=== PATIENT | male | born 1945 | race Caucasian/White ===

== ENCOUNTER → 2016-11-20 | Outpatient (REF) | payer MEDICARE, OTHER ==
[~2016-11-20] MED LIST: ALPR0.25 PO; AMLO5TAB2 PO; ATEN50TA2 PO; ATOR1TAB21 PO; BACITAB3 PO; CARV6.25 PO; CENTTAB47 PO; CEPH500C PO; CETI10TA PO; CIPR500T89 PO; DAPT50VL IV; FLOM5CAP PO; HYDR10TAB PO; ISOS10TA PO; LOSA100T36 PO; METF750T PO; MYCO15CR TOP; NYST50SS SS; OXYC1TAB16 PO; PARO20TA2 PO; PERC10TA17 PO; PERC5TAB6 PO; PLAV75TA38 PO; PRED10TA PO; SOMA350T PO; TORS20TA2 PO; VITA200015 PO; VITMTA PO; ZOFR4TAB3 PO
== END ==
LOC: M SMT 12:56
PROVIDERS: ATTEND Urology
DX: C67.9 Malignant neoplasm of bladder, unspecified (principal)

== ENCOUNTER → 2017-01-08 | Outpatient (CLI) | payer MEDICARE, OTHER ==
--- NOTE | 2017-01-10 21:38 | SLEEPCENT ---
DATE OF PROCEDURE: 01/08/2017 ORDERED BY: Addie Hoover Nocturnal polysomnography was performed for re-titration of pressure therapy in this patient with known obstructive sleep apnea syndrome. For testing, the patient was fit with a ResMed P[employer]a nasal mask of large size with a chin strap. Initial bilevel pressure of 8 over 4 was applied to the circuit and the lights were extinguished. 6 hours and 42 minutes of data were reviewed. There were 135 minutes of sleep identified. Sleep latency was prolonged at 74 minutes. Rapid eye movement (REM) latency was prolonged at 170 minutes. Sleep architecture showed very poor progression with very prominent alpha intrusion throughout. Overall sleep efficiency was reduced by periods of wake to 35.2%. The patient's EKG showed sinus rhythm with very frequent PVCs, episodes of trigeminy. EEG showed severe alpha intrusion throughout, as noted above. Respiratory events persisted, prompting an increase in pressure therapy. An optimal bilevel pressure is difficult to identify, but respiratory events appeared reasonably controlled at a bilevel pressure inspiratory 13 over expiratory of 9. The patient had persistence of limb activity as well with limb movement arousal index of 40.4 and persistent trains of events mid test. IMPRESSION: 1. Severe Obstructive sleep apnea syndrome (G47.33). 2. Periodic limb movement disorder (G47.61). Limb movement arousal index 40.4. RECOMMENDATION: Nightly use of pressure therapy at a bilevel setting inspiratory 13 over expiratory of 9 appears sufficient to address the patient's obstructive respiratory events and associated oxygen desaturation. Further interventions to reduce the frequency of arousal from limb activity and address the patient's pain will likely be necessary to establish optimal sleep. The ventricular ectopy demonstrated should also be considered if not already evaluated in the past. Copy To: Dr. Dill
== END ==
LOC: M SLEEP 19:47
PROVIDERS: ATTEND Nurse Practitioner Adult Health
DX: G47.33 Obstructive sleep apnea (adult) (pediatric) (principal)

== ENCOUNTER 2017-02-02 04:57 | Emergency (ER) | payer MEDICARE, OTHER ==
[~2017-02-02 04:57] MED LIST changes: -PARO20TA2 PO; +PARO20TA3 PO
[2017-02-02] MEDS ORDERED: OXYCODONE/APAP 5MG/325MG(BULK FOR ED) 1 TABLET PO ONE (06:30)
[2017-02-02] MEDS ORDERED: MORPHINE 10 MG/ML 1ML VIAL IM ONE (06:30)
[2017-02-02 07:35] VITALS: BP 137/88
[2017-02-10] MEDS ORDERED: ASCO25TA PO (08:49)
[2017-02-10] MEDS ORDERED: LIPI20TA PO (08:49)
[2017-02-10] MEDS ORDERED: COLC1TAB5 PO (08:49)
[2017-02-10] MEDS ORDERED: IRON65TA PO (08:49)
[2017-02-10] MEDS ORDERED: CINA30TA PO (08:49)
[2017-02-10] MEDS ORDERED: K-TA10TA2 PO (08:49)
[2017-02-10] MEDS ORDERED: TORS20TA2 PO (08:49)
[2017-02-10] MEDS ORDERED: ALLO10TA PO (08:49)
== END 2017-02-02 07:37 | disposition home or self-care (01) ==
LOC: M ED 06:17
DX: M54.5 Low back pain (principal); G89.29 Other chronic pain; M10.9 Gout, unspecified; I10 Essential (primary) hypertension; E11.9 Type 2 diabetes mellitus without complications; I50.9 Heart failure, unspecified; I25.2 Old myocardial infarction; E78.00 Pure hypercholesterolemia, unspecified; I95.9 Hypotension, unspecified; G47.30 Sleep apnea, unspecified; D49.519 Neoplasm of unspecified behavior of unspecified kidney; N40.0 Benign prostatic hyperplasia without lower urinary tract symptoms; F32.9 Major depressive disorder, single episode, unspecified; Z79.899 Other long term (current) drug therapy; Z79.02 Long term (current) use of antithrombotics/antiplatelets

== ENCOUNTER 2017-02-03 23:59 | Emergency (ER) | payer MEDICARE, OTHER ==
[~2017-02-03] VITALS: Ht 167.6 cm; Wt 100.7 kg
[2017-02-04] MEDS ORDERED: MORPHINE 10 MG/ML 1ML VIAL IM ONE (02:30)
[2017-02-04] MEDS ORDERED: OXYC1TAB23 PO (02:30)
[2017-02-04] MEDS ORDERED: OXYCODONE/APAP 5MG/325MG(BULK FOR ED) 1 TABLET PO ONE (02:30)
[2017-02-04 03:06] VITALS: BP 137/86
[2017-02-10] MEDS ORDERED: LIPI20TA PO (08:49)
[2017-02-10] MEDS ORDERED: IRON65TA PO (08:49)
[2017-02-10] MEDS ORDERED: ALLO10TA PO (08:49)
[2017-02-10] MEDS ORDERED: TORS20TA2 PO (08:49)
[2017-02-10] MEDS ORDERED: K-TA10TA2 PO (08:49)
[2017-02-10] MEDS ORDERED: CINA30TA PO (08:49)
[2017-02-10] MEDS ORDERED: COLC1TAB5 PO (08:49)
[2017-02-10] MEDS ORDERED: ASCO25TA PO (08:49)
== END 2017-02-04 03:08 | disposition home or self-care (01) ==
LOC: M ED 02-04 00:32
DX: M54.5 Low back pain (principal); G89.29 Other chronic pain; M10.9 Gout, unspecified; Z88.0 Allergy status to penicillin; Z88.8 Allergy status to other drugs, medicaments and biological substances; Z79.899 Other long term (current) drug therapy; Z79.02 Long term (current) use of antithrombotics/antiplatelets; Z79.52 Long term (current) use of systemic steroids

== ENCOUNTER → 2017-02-17 | Outpatient (REF) | payer MEDICARE, OTHER ==
[~2017-02-17] MED LIST changes: +ALLO10TA PO; +ASCO25TA PO; +CINA30TA PO; +COLC1TAB5 PO; +FENT12PA TOP; +IRON65TA PO; +K-TA10TA2 PO; +LIPI20TA PO; +OXYC1TAB23 PO; +VITA-130 PO; +VITA500046 PO
== END ==
LOC: M SMT 17:15
PROVIDERS: ATTEND Urology
DX: C67.9 Malignant neoplasm of bladder, unspecified (principal)

== ENCOUNTER → 2017-02-18 | Outpatient (CLI) | payer MEDICARE, OTHER ==
[~2017-02-18] MED LIST changes: -FENT12PA TOP; -VITA-130 PO; -VITA500046 PO
--- NOTE | 2017-02-18 14:01 | REP ---
CHEST, TWO VIEWS: HISTORY: Bladder neoplasm. COMPARISON: 06/08/2016. Patchy density is present in the right lower lobe consistent with atelectasis or infiltrate. This is superimposed on chronic fibrosis. Increased density is present in the left lower lobe consistent with chronic fibrosis. The heart is upper limits of normal in size. The pulmonary vasculature is normal in appearance. The bony structure is intact. A prosthetic heart valve is present. A dorsal column stimulator is present in the mid thoracic spine. IMPRESSION: 1. Right lower lobe atelectasis or infiltrate. 2. Bibasilar fibrosis. Signed by Nayan Gould MD 02/18/2017 02:06 P
[2017-02-18 14:08] LABS: INR 1.06; MEAN CORPUSCULAR HEMOGLOBIN 31.1 pg (27.0-33.0); MEAN CORPUSCULAR HGB CONC 33.8 g/dl (32.0-36.5); MEAN CORPUSCULAR VOLUME 92.1 fl (80.0-96.0); RED CELL DISTRIBUTION WIDTH 13.7 % (11.5-14.5); WHITE BLOOD COUNT 8.3 K/mm3 (4.0-10.0)
[2017-02-18 14:13] LABS: CALCIUM LEVEL 6.4 MG/DL (8.8-10.2); CREATININE FOR GFR 2.53 MG/DL (0.70-1.30); GLOMERULAR FILTRATION RATE 26.8 (>42); POTASSIUM SERUM 4.4 MEQ/L (3.5-5.1)
--- NOTE | 2017-02-19 07:30 | ECGEPIP ---
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
== END ==
LOC: M LAB 12:42
PROVIDERS: ATTEND Urology
DX: C67.9 Malignant neoplasm of bladder, unspecified (principal)

== ENCOUNTER → 2017-02-19 | Day surgery (SDC) | payer MEDICARE, OTHER ==
[~2017-02-19] VITALS: Ht 167.6 cm; Wt 102.1 kg
[~2017-02-19] MED LIST changes: +ACETAMINOPHEN 325 MG TAB PO PRN; +AcetaZOLAMIDE 500 MG ER CAP PO ONE; +BSS with VANC/TOB/EPI for EYE CASES IR ONE; +CYCLOPENTOLATE 2% OPHTH SOLN OS ONE; +D5W/0.2% SODIUM CHLORIDE 250 ML IV SCH; +HEALON DUET (HEALON 10MG/ML 0.55ML & HEALON ENDOCOAT 30MG/ML 0.85ML) As Ordered ONE; +LIDOCAINE 1% SDV 5 ML VIAL As Ordered ONE; +LIDOCAINE 4% INJ 5 ML AMP OU ONE; +MIDAZOLAM INJ 2 MG/2 ML VIAL (J2250) As Ordered ONE; +MOXIFLOXACIN IN BSS 0.25MG/0.25ML INTRACAMERAL INJ (OR EYE ONLY)(J2280) As Ordered ONE; +OFLOXACIN 0.3 % (OCUFLOX) OPTH SOL 5ML OS ONE; +PHENYLEPHRINE 2.5% OPHTH SOL 2ML OS ONE; +POVIDONE-IODINE 5% OPHTH PREP SOL 30ML As Ordered ONE; +PROPARACAINE 0.5% OPHTH SOL 15ML OS PRN; +TRIAMCINOLONE PRES FR 40 MG/ML 1ML(TRIESENCE)(OR EYE ONLY)(J3300 PER 1MG) As Ordered ONE; +TRIMETHOBENZAMIDE 300 MG CAP PO PRN; +TROPICAMIDE 1% OPHTH SOLN 2 ML OS ONE; +fentaNYL 100 MCG/2 ML INJECTION (J3010) As Ordered ONE
[2017-02-19 13:25] VITALS: BP 135/85
--- NOTE | 2017-02-19 22:29 | RO ---
DATE OF PROCEDURE: 02/19/2017 PREPROCEDURE DIAGNOSIS: Cataract of left eye. POSTPROCEDURE DIAGNOSIS: Cataract of left eye. PROCEDURE: Femtosecond laser and phacoemulsification of the intraocular lens with lens implantation left eye. Intraocular lens power used was PCB00, 20 diopters. SURGEON: Wendy Alvarez MD CLIP ON SUNGLASSES ASSEMBLER: None. ANESTHESIA: Local IV standby. FINDINGS: Cataract of left eye. COMPLICATIONS: None. DESCRIPTION OF PROCEDURE: The patient was brought to the operating room and laid in supine position. A lid speculum was placed, and patient was brought under the femtosecond laser. After the satisfactory placement of the patient interface, primary incision, secondary incision, and arcuate incisions with lens fragmentation was done without any complication per plan. The patients interface was then removed and lid speculum removed. Patient was placed under the microscope. The eye was prepped and draped in a sterile fashion for ophthalmic surgery. Lid speculum was placed. The secondary incision was opened, and EndoCoat was injected into the anterior chamber. The temporal clear corneal incision was then opened and capsulorrhexis removed, followed by hydrodissection. This was followed by phacoemulsification of the lens within the capsular bag. Cortical material was then aspirated, and Healon was injected into the capsular bag. Intraocular lens was then placed. Excess Healon was aspirated. Wound was hydrated. The lid speculum was removed, and patient was returned to the recovery room in stable condition.
== END | disposition home or self-care (01) ==
LOC: M SDC 10:21
PROVIDERS: ATTEND Ophthalmology
DX: H26.9 Unspecified cataract (principal); I13.0 Hypertensive heart and chronic kidney disease with heart failure and stage 1 through stage 4 chronic kidney disease, or unspecified chronic kidney disease; I25.2 Old myocardial infarction; I50.32 Chronic diastolic (congestive) heart failure; I08.0 Rheumatic disorders of both mitral and aortic valves; J44.9 Chronic obstructive pulmonary disease, unspecified; E78.00 Pure hypercholesterolemia, unspecified; Z95.3 Presence of xenogenic heart valve; E11.22 Type 2 diabetes mellitus with diabetic chronic kidney disease; M19.90 Unspecified osteoarthritis, unspecified site; M54.9 Dorsalgia, unspecified; G47.33 Obstructive sleep apnea (adult) (pediatric); N18.9 Chronic kidney disease, unspecified; M25.522 Pain in left elbow; Z85.51 Personal history of malignant neoplasm of bladder; Z88.8 Allergy status to other drugs, medicaments and biological substances; Z88.1 Allergy status to other antibiotic agents; Z79.899 Other long term (current) drug therapy; Z79.02 Long term (current) use of antithrombotics/antiplatelets; Z87.891 Personal history of nicotine dependence; Z95.1 Presence of aortocoronary bypass graft
CPT/HCPCS: 66984; J2250; J2280; J3010; J3300; V2632

== ENCOUNTER → 2017-02-26 | Day surgery (SDC) | payer MEDICARE, OTHER ==
[~2017-02-26] VITALS: Ht 167.6 cm; Wt 102.0 kg
[~2017-02-26] MED LIST changes: +CYCLOPENTOLATE 2% OPHTH SOLN As Ordered ONE; -CYCLOPENTOLATE 2% OPHTH SOLN OS ONE; +CYCLOPENTOLATE 2% OPHTH SOLN XX ONE; +D5W/0.2% SODIUM CHLORIDE 250 ML IV ONE; -D5W/0.2% SODIUM CHLORIDE 250 ML IV SCH; +OFLOXACIN 0.3 % (OCUFLOX) OPTH SOL 5ML As Ordered ONE; -OFLOXACIN 0.3 % (OCUFLOX) OPTH SOL 5ML OS ONE; +OFLOXACIN 0.3 % (OCUFLOX) OPTH SOL 5ML XX ONE; +PHENYLEPHRINE 2.5% OPHTH SOL 2ML As Ordered ONE; -PHENYLEPHRINE 2.5% OPHTH SOL 2ML OS ONE; +PHENYLEPHRINE 2.5% OPHTH SOL 2ML XX ONE; +PROPARACAINE 0.5% OPHTH SOL 15ML OD PRN; -PROPARACAINE 0.5% OPHTH SOL 15ML OS PRN; +TROPICAMIDE 1% OPHTH SOLN 2 ML As Ordered ONE; -TROPICAMIDE 1% OPHTH SOLN 2 ML OS ONE; +TROPICAMIDE 1% OPHTH SOLN 2 ML XX ONE
[2017-02-26 13:40] VITALS: BP 157/80
--- NOTE | 2017-02-27 07:27 | RO ---
DATE OF PROCEDURE: 02/26/2017 PREPROCEDURE DIAGNOSIS: Cataract of left eye. POSTPROCEDURE DIAGNOSIS: Cataract of left eye. PROCEDURE: Femtosecond laser and phacoemulsification of the intraocular lens with lens implantation left eye. Intraocular lens power used was PCB00, 20.5 diopter. SURGEON: Wendy Alvarez MD DIGITAL LIBRARIAN: None. ANESTHESIA: Local IV standby. FINDINGS: Cataract of left eye. COMPLICATIONS: None. DESCRIPTION OF PROCEDURE: The patient was brought to the operating room and laid in supine position. A lid speculum was placed, and patient was brought under the femtosecond laser. After the satisfactory placement of the patient interface, primary incision, secondary incision, and arcuate incisions with lens fragmentation was done without any complication per plan. The patients interface was then removed and lid speculum removed. Patient was placed under the microscope. The eye was prepped and draped in a sterile fashion for ophthalmic surgery. Lid speculum was placed. The secondary incision was opened, and EndoCoat was injected into the anterior chamber. The temporal clear corneal incision was then opened and capsulorrhexis removed, followed by hydrodissection. This was followed by phacoemulsification of the lens within the capsular bag. Cortical material was then aspirated, and Healon was injected into the capsular bag. Intraocular lens was then placed. Excess Healon was aspirated. Wound was hydrated. The lid speculum was removed, and patient was returned to the recovery room in stable condition.
== END | disposition home or self-care (01) ==
LOC: M SDC 11:39
PROVIDERS: ATTEND Ophthalmology
DX: H26.9 Unspecified cataract (principal); I13.0 Hypertensive heart and chronic kidney disease with heart failure and stage 1 through stage 4 chronic kidney disease, or unspecified chronic kidney disease; I25.2 Old myocardial infarction; I50.32 Chronic diastolic (congestive) heart failure; I08.0 Rheumatic disorders of both mitral and aortic valves; E78.00 Pure hypercholesterolemia, unspecified; E11.22 Type 2 diabetes mellitus with diabetic chronic kidney disease; E11.65 Type 2 diabetes mellitus with hyperglycemia; M19.90 Unspecified osteoarthritis, unspecified site; M54.9 Dorsalgia, unspecified; G47.33 Obstructive sleep apnea (adult) (pediatric); N18.4 Chronic kidney disease, stage 4 (severe); Z88.8 Allergy status to other drugs, medicaments and biological substances; Z88.1 Allergy status to other antibiotic agents; Z85.51 Personal history of malignant neoplasm of bladder; Z79.899 Other long term (current) drug therapy; Z87.891 Personal history of nicotine dependence; Z95.1 Presence of aortocoronary bypass graft; Z95.3 Presence of xenogenic heart valve
CPT/HCPCS: 66984; J2250; J2280; J3010; J3300; V2632

== ENCOUNTER → 2017-03-18 | Outpatient (CLI) | payer MEDICARE, OTHER ==
[~2017-03-18] MED LIST changes: -ACETAMINOPHEN 325 MG TAB PO PRN; -AcetaZOLAMIDE 500 MG ER CAP PO ONE; -BSS with VANC/TOB/EPI for EYE CASES IR ONE; -CYCLOPENTOLATE 2% OPHTH SOLN As Ordered ONE; -CYCLOPENTOLATE 2% OPHTH SOLN XX ONE; -D5W/0.2% SODIUM CHLORIDE 250 ML IV ONE; +FENT12PA TOP; -HEALON DUET (HEALON 10MG/ML 0.55ML & HEALON ENDOCOAT 30MG/ML 0.85ML) As Ordered ONE; -LIDOCAINE 1% SDV 5 ML VIAL As Ordered ONE; -LIDOCAINE 4% INJ 5 ML AMP OU ONE; -MIDAZOLAM INJ 2 MG/2 ML VIAL (J2250) As Ordered ONE; -MOXIFLOXACIN IN BSS 0.25MG/0.25ML INTRACAMERAL INJ (OR EYE ONLY)(J2280) As Ordered ONE; -OFLOXACIN 0.3 % (OCUFLOX) OPTH SOL 5ML As Ordered ONE; -OFLOXACIN 0.3 % (OCUFLOX) OPTH SOL 5ML XX ONE; -PHENYLEPHRINE 2.5% OPHTH SOL 2ML As Ordered ONE; -PHENYLEPHRINE 2.5% OPHTH SOL 2ML XX ONE; -POVIDONE-IODINE 5% OPHTH PREP SOL 30ML As Ordered ONE; -PROPARACAINE 0.5% OPHTH SOL 15ML OD PRN; -TRIAMCINOLONE PRES FR 40 MG/ML 1ML(TRIESENCE)(OR EYE ONLY)(J3300 PER 1MG) As Ordered ONE; -TRIMETHOBENZAMIDE 300 MG CAP PO PRN; -TROPICAMIDE 1% OPHTH SOLN 2 ML As Ordered ONE; -TROPICAMIDE 1% OPHTH SOLN 2 ML XX ONE; +VITA-130 PO; +VITA500046 PO; -fentaNYL 100 MCG/2 ML INJECTION (J3010) As Ordered ONE
[2017-03-18 18:55] LABS: MAGNESIUM LEVEL 1.8 MG/DL (1.8-2.4)
== END ==
LOC: M SMT 13:27
PROVIDERS: ATTEND Physician Assistant
DX: Z01.818 Encounter for other preprocedural examination (principal); C67.9 Malignant neoplasm of bladder, unspecified; I49.3 Ventricular premature depolarization; I11.9 Hypertensive heart disease without heart failure; E78.5 Hyperlipidemia, unspecified

== ENCOUNTER 2017-03-25 21:17 | Emergency (ER) | payer MEDICARE, OTHER ==
[~2017-03-25] VITALS: Ht 167.6 cm; Wt 106.6 kg
[2017-03-25 21:17] VITALS: BP 151/79
[2017-03-25] MEDS ORDERED: COQ-100C2 PO (21:29)
[2017-03-25] MEDS ORDERED: CLAR10CA3 PO (21:29)
[2017-03-25] MEDS ORDERED: HYDR25T PO (21:29)
[2017-03-25] MEDS ORDERED: SENN8.6C PO (21:29)
[2017-03-25] MEDS ORDERED: COLC1TAB13 (21:30)
[2017-03-26] MEDS ORDERED: OXYC1TAB23 PO (01:35)
[2017-03-26] MEDS ORDERED: PRED20TA PO (01:35)
[2017-03-26] MEDS ORDERED: CIPR500T3 PO (19:01)
[2017-03-26] MEDS ORDERED: PERCOCET PO (19:01)
== END 2017-03-25 23:11 | disposition left against medical advice (07) ==
LOC: M ED 23:09
DX: R68.89 Other general symptoms and signs (principal); Z53.21 Procedure and treatment not carried out due to patient leaving prior to being seen by health care provider

== ENCOUNTER 2017-03-26 00:36 | Emergency (ER) | payer MEDICARE, OTHER ==
[~2017-03-26] VITALS: Ht 167.6 cm; Wt 106.6 kg
[~2017-03-26 00:36] MED LIST changes: +CLAR10CA3 PO; +COLC1TAB13; +COQ-100C2 PO; +HYDR25T PO; +SENN8.6C PO
[2017-03-26 00:44] VITALS: BP 120/86
[2017-03-26] MEDS ORDERED: OXYC1TAB23 PO (01:35)
[2017-03-26] MEDS ORDERED: PRED20TA PO (01:35)
[2017-03-26] MEDS ORDERED: MORPHINE 10 MG/ML 1ML VIAL IM ONE (01:45)
[2017-03-26] MEDS ORDERED: CIPR500T3 PO (19:01)
[2017-03-26] MEDS ORDERED: PERCOCET PO (19:01)
== END 2017-03-26 02:15 | disposition home or self-care (01) ==
LOC: M ED 01:44
DX: M10.9 Gout, unspecified (principal); Z79.891 Long term (current) use of opiate analgesic; N18.9 Chronic kidney disease, unspecified; M54.9 Dorsalgia, unspecified; G89.29 Other chronic pain; Z79.899 Other long term (current) drug therapy; Z79.02 Long term (current) use of antithrombotics/antiplatelets; Z88.0 Allergy status to penicillin

== ENCOUNTER 2017-03-26 11:22 | Day surgery (SDC) | payer MEDICARE, OTHER ==
[~2017-03-26] VITALS: Ht 167.6 cm; Wt 106.6 kg
[~2017-03-26 11:22] MED LIST changes: +PRED20TA PO
[2017-03-26] MEDS ORDERED: LIDOCAINE 1% SDV 5 ML VIAL SQ PRN (11:45)
[2017-03-26] MEDS ORDERED: VANCOMYCIN HCL 1,000 MG, VIAL MATE ADAPTER 1 EACH in D5W 250 ML IV ONE (11:45)
[2017-03-26] MEDS ORDERED: GENTAMICIN 100 MG in APPROPRIATE DILUENT 1 EA IV ONE ×2 (11:45→19:45)
[2017-03-26] MEDS ORDERED: LR 1,000 ML IV ONE (11:45)
[2017-03-26] MEDS ORDERED: mitoMYcin 40 MG VIAL (J9280) INTRAVESIC ONE (12:00)
[2017-03-26] MEDS ORDERED: fentaNYL 100 MCG/2 ML INJECTION (J3010) As Ordered ONE ×2 (14:18→18:14)
[2017-03-26] MEDS ORDERED: MIDAZOLAM INJ 2 MG/2 ML VIAL (J2250) As Ordered ONE ×2 (14:18→18:14)
[2017-03-26] MEDS ORDERED: LIDOCAINE 2% INJ 100 MG/5 ML SDV (FOR ANES.) As Ordered ONE (18:14)
[2017-03-26] MEDS ORDERED: ONDANSETRON 4MG/2ML VIAL (J2405) As Ordered ONE (18:14)
[2017-03-26] MEDS ORDERED: PROPOFOL 200 MG/20 ML VIAL As Ordered ONE (18:14)
[2017-03-26] MEDS ORDERED: ROCURONIUM BROMIDE 50 MG/5 ML VIAL As Ordered ONE (18:14)
[2017-03-26] MEDS ORDERED: ALBUTEROL SULFATE 2.5 MG/0.5 ML INH NEB SOLN INH SCH (18:45)
[2017-03-26] MEDS ORDERED: CIPR500T3 PO (19:01)
[2017-03-26] MEDS ORDERED: PERCOCET PO (19:01)
[2017-03-26] MEDS: MORPHINE 4 MG/ML 1ML SYRINGE IV PRN ×2 (19:30→19:40)
[2017-03-26] MEDS ORDERED: MORPHINE 10 MG/ML 1ML VIAL As Ordered ONE (19:31)
[2017-03-26] MEDS ORDERED: GENTAMICIN SULF INJ 80MG/2ML VIAL (J1580) As Ordered ONE (19:34)
[2017-03-26] MEDS ORDERED: SUGAMMADEX SODIUM 500 MG/5 ML VIAL (BRIDION) As Ordered ONE (20:40)
[2017-03-26] MEDS ORDERED: IPRATROPIUM 0.5MG/ALBUTEROL 2.5MG INH SOL UD 3ML (DUONEB)(J7620) As Ordered ONE (20:57)
[2017-03-26] MEDS ORDERED: fentaNYL 100 MCG/2 ML INJECTION (J3010) IV PRN (21:30)
[2017-03-26] MEDS ORDERED: IPRATROPIUM 0.5MG/ALBUTEROL 2.5MG INH SOL UD 3ML (DUONEB)(J7620) NEB SCH (21:30)
[2017-03-26] MEDS ORDERED: LR 1,000 ML IV SCH (21:30)
[2017-03-26] MEDS ORDERED: ONDANSETRON 4MG/2ML VIAL (J2405) IV PRN (21:30)
[2017-03-26] MEDS ORDERED: PERCOCET 5MG/325MG TAB PO PRN (21:30)
[2017-03-26] MEDS ORDERED: hydrALAZINE INJ 20 MG/ML VIAL As Ordered ONE (22:39)
[2017-03-26] MEDS ORDERED: hydrALAZINE INJ 20 MG/ML VIAL IV SCH (22:45)
[2017-03-26 22:54] VITALS: BP 177/86
[2017-03-26 23:15] VITALS: BP 148/74
[2017-03-26 23:45] VITALS: BP 165/87
[2017-03-27 00:45] VITALS: BP 166/85
[2017-03-27 01:45] VITALS: BP 160/83
[2017-03-27] MEDS: PERCOCET 5MG/325MG TAB PO PRN ×2 (02:15→06:17)
[2017-03-27 02:45] VITALS: BP 173/82
[2017-03-27 03:45] VITALS: BP 167/85
[2017-03-27] MEDS ORDERED: CIPROFLOXACIN 500 MG TAB PO SCH (06:00)
--- NOTE | 2017-03-27 08:36 | RO ---
DATE OF PROCEDURE: 03/26/2017 PREOPERATIVE DIAGNOSIS: Bladder tumor. POSTOPERATIVE DIAGNOSIS: Bladder tumor. SURGERY PERFORMED: Cystoscopy, plus exam under anesthesia, plus transurethral resection of bladder tumor, plus mitomycin C instillation. SURGEON: Dr. Masoud Urrutia COIN ROLLING MACHINE OPERATOR: None. ANESTHESIA: General. COMPLICATIONS: None. ESTIMATED BLOOD LOSS: N/A. FINDINGS: 2 cm bladder tumor on the posterior bladder wall. HISTORY OF PRESENT ILLNESS: 71-year-old male patient with history of carcinoma of the bladder. The patient has had a recurrence about 2 cm in diameter on the posterior bladder wall. For this reason, he has consented for a cystoscopy, TURBT, plus mitomycin C instillation. PROCEDURE DESCRIPTION: In a patient under general anesthesia in supine modified low lithotomy position after prepping and draping the area of concern, which included the entire genitalia and abdomen, we introduced a cystoscope, #21 Indian in diameter with a 30 degrees lens under video endoscopic guidance. The fossa navicularis, penile urethra, bulbar urethra and membranous urethra were totally normal. The prostate had lateral lobes touching, no middle lobe. Both the ureteral orifices were seen excreting clear urine. There was a 2 cm papillary tumor on the posterior bladder wall and a 5 mm papillary tumor near to this one. We then changed the cystoscope for a resectoscope and under normal saline bipolar resection we did a transurethral resection of bladder tumor. We then collected the specimen with travelmob evacuator and sent it for permanent pathology analysis. We then fulgurated the base and controlled hemostasis. We then proceeded to actively take out the resectoscope and place a #20 Indian Herman catheter 3-way and inflated the balloon to 20 mL. We then placed mitomycin C 40 mg in 50 mL into the bladder and plugged the Herman. PLAN: The patient will pass to recovery. He will turn around 15 minutes to each side, 15 minutes left contralateral, 15 minutes right contralateral, prone and supine. He will have the mitomycin C instillation inside the bladder for at least one hour to two hours. Then, the Herman catheter will be placed to gravity and the patient will be going home if the Herman catheter drains clear urine. He will go home with ciprofloxacin 500 mg one tablet by mouth twice a day and Percocet 5/325 mg one tablet by mouth every 6 hours. The patient will go home. He cannot start any anticoagulation medication for at least 7 days. He will followup on 03/31/2017, for a voiding trial. There were no complications of surgery.
== END 2017-03-27 10:10 | disposition home or self-care (01) ==
LOC: M SDC 11:22 → M MS5PR 23:20 → M SDC 03-27 10:10
PROVIDERS: ATTEND Urology
DX: C67.4 Malignant neoplasm of posterior wall of bladder (principal); I13.0 Hypertensive heart and chronic kidney disease with heart failure and stage 1 through stage 4 chronic kidney disease, or unspecified chronic kidney disease; N18.3 Chronic kidney disease, stage 3 (moderate); M10.371 Gout due to renal impairment, right ankle and foot; N25.81 Secondary hyperparathyroidism of renal origin; I50.32 Chronic diastolic (congestive) heart failure; I25.10 Atherosclerotic heart disease of native coronary artery without angina pectoris; Z95.1 Presence of aortocoronary bypass graft; E11.9 Type 2 diabetes mellitus without complications; G47.33 Obstructive sleep apnea (adult) (pediatric); M54.5 Low back pain; Z79.899 Other long term (current) drug therapy; Z79.02 Long term (current) use of antithrombotics/antiplatelets; Z79.891 Long term (current) use of opiate analgesic; Z87.891 Personal history of nicotine dependence; Z88.1 Allergy status to other antibiotic agents; Z88.8 Allergy status to other drugs, medicaments and biological substances; Z88.0 Allergy status to penicillin
CPT/HCPCS: 36415; 52235; 86850; 86900; 86901; 88305; J1580; J2250; J2405; J3010; J3370; J9280

== ENCOUNTER 2017-03-26 15:13 | Emergency (ER) | payer MEDICARE, OTHER ==
[~2017-03-26] VITALS: Ht 167.6 cm; Wt 106.6 kg
[~2017-03-26 15:13] MED LIST changes: -COLC1TAB13; +COLC1TAB13 PO
[2017-03-26 17:35] VITALS: BP 157/70
[2017-03-26] MEDS ORDERED: CIPR500T3 PO (19:01)
[2017-03-26] MEDS ORDERED: PERCOCET PO (19:01)
== END 2017-03-26 17:38 | disposition home or self-care (01) ==
LOC: M ED 15:55 → M SDC 17:38
DX: S52.125A Nondisplaced fracture of head of left radius, initial encounter for closed fracture (principal); W19.XXXA Unspecified fall, initial encounter; Y92.89 Other specified places as the place of occurrence of the external cause; Y93.89 Activity, other specified; Y99.8 Other external cause status; I10 Essential (primary) hypertension; E11.9 Type 2 diabetes mellitus without complications; I25.10 Atherosclerotic heart disease of native coronary artery without angina pectoris; E78.5 Hyperlipidemia, unspecified; Z85.51 Personal history of malignant neoplasm of bladder; Z79.899 Other long term (current) drug therapy; Z79.02 Long term (current) use of antithrombotics/antiplatelets

== ENCOUNTER → 2017-04-08 | Outpatient (REF) | payer MEDICARE, OTHER ==
[~2017-04-08] MED LIST changes: +ASCO500T PO; +CIPR500T3 PO; +CLOP75TA2 PO; +D200CAP3 PO; +NITR0.4S14 SL; +PERCOCET PO; +POTA1TAB14 PO
== END ==
LOC: M SMT 16:52
PROVIDERS: ATTEND Nurse Practitioner Women's Health
DX: C67.9 Malignant neoplasm of bladder, unspecified (principal); R31.9 Hematuria, unspecified

== ENCOUNTER → 2017-04-10 | Outpatient (REF) | payer MEDICARE, OTHER ==
[2017-04-10 20:05] LABS: PHOSPHORUS LEVEL 4.9 MG/DL (2.5-4.9)
== END ==
LOC: M LAB REF 16:57
PROVIDERS: ATTEND Internal Medicine
DX: E21.1 Secondary hyperparathyroidism, not elsewhere classified (principal); N18.3 Chronic kidney disease, stage 3 (moderate)

== ENCOUNTER 2017-04-13 19:49 | Inpatient (IN) | payer MEDICARE, OTHER ==
[~2017-04-13] VITALS: Ht 165.1 cm; Wt 106.7 kg
[~2017-04-13 19:49] MED LIST changes: -ASCO500T PO; -CLOP75TA2 PO; -D200CAP3 PO; -NITR0.4S14 SL; -POTA1TAB14 PO
[2017-04-13 21:15] LABS: BASO % 0.2 % (0.0-1.0); EOS # 0.4 K/mm3 (0.0-0.50); EOS % 4.8 % (0.0-3.0); LARGE UNSTAINED CELL # 0.2 K/mm3 (0.0-0.4); LARGE UNSTAINED CELL % 2.6 % (0.0-4.0); LYMPH # 1.1 K/mm3 (1.5-4.5); MEAN CORPUSCULAR HEMOGLOBIN 31.8 pg (27.0-33.0); MEAN CORPUSCULAR HGB CONC 33.6 g/dl (32.0-36.5); MEAN CORPUSCULAR VOLUME 94.7 fl (80.0-96.0); MONO # 0.6 K/mm3 (0.0-0.8); MONO % 6.9 % (0.0-5.0); NEUTROPHILS # 6.2 K/mm3 (1.8-7.7); NEUTROPHILS % 74.5 % (36.0-66.0); PLATELET COUNT, AUTOMATED 134 k/mm3 (150-450); WHITE BLOOD COUNT 8.3 K/mm3 (4.0-10.0)
[2017-04-13 21:26] LABS: INR 1.02
[2017-04-13 21:31] LABS: ALBUMIN 3.2 GM/DL (3.2-5.2); ALBUMIN/GLOBULIN RATIO 0.78 (1.00-1.93); ALKALINE PHOSPHATASE 144 U/L (45-117); ALT/SGPT 72 U/L (12-78); ANION GAP 8 MEQ/L (8-16); AST/SGOT 41 U/L (15-37); BILIRUBIN,DIRECT 0.1 MG/DL (0.0-0.2); BILIRUBIN,TOTAL 0.5 MG/DL (0.2-1.0); BLOOD UREA NITROGEN 58 MG/DL (7-18); CALCIUM LEVEL 7.5 MG/DL (8.8-10.2); CARBON DIOXIDE LEVEL 28 MEQ/L (21-32); CHLORIDE LEVEL 99 MEQ/L (98-107); CREATININE FOR GFR 2.02 MG/DL (0.70-1.30); GLOMERULAR FILTRATION RATE 34.7 (>42); GLUCOSE, FASTING 131 MG/DL (83-110); POTASSIUM SERUM 4.2 MEQ/L (3.5-5.1); SODIUM LEVEL 135 MEQ/L (136-145); TOTAL PROTEIN 7.3 GM/DL (6.4-8.2)
[2017-04-13] MEDS ORDERED: PERCOCET 5MG/325MG TAB PO ONE ×2 (22:15)
[2017-04-13] MEDS ORDERED: VANCOMYCIN HCL 1,000 MG, VIAL MATE ADAPTER 1 EACH in D5W 250 ML IV ONE (22:30)
[2017-04-13] MEDS ORDERED: MEROPENEM INJ 1 GM in D5W MINI-BAG PLUS 100 ML IV ONE (23:00)
[2017-04-13] MEDS ORDERED: CLOP75TA2 PO (23:21)
[2017-04-13] MEDS ORDERED: ASCO500T PO (23:21)
[2017-04-13] MEDS ORDERED: POTA1TAB14 PO (23:21)
[2017-04-13] MEDS ORDERED: D200CAP3 PO (23:21)
[2017-04-13] MEDS ORDERED: NITR0.4S14 SL (23:21)
[2017-04-14] MEDS ORDERED: FUROSEMIDE 100 MG/10 ML VIAL (J1940) IV ONE
[2017-04-14 01:55] VITALS: BP 137/81
[2017-04-14] MEDS ORDERED: PERCOCET 5MG/325MG TAB PO PRN (04:30)
[2017-04-14 04:36] VITALS: BP 144/59
[2017-04-14] MEDS ORDERED: NITROGLYCERIN 0.4 MG SUBL TABLET SL PRN (04:45)
[2017-04-14 05:44] LABS: BASO % 0.3 % (0.0-1.0); EOS # 0.4 K/mm3 (0.0-0.50); EOS % 5.2 % (0.0-3.0); LARGE UNSTAINED CELL # 0.3 K/mm3 (0.0-0.4); LARGE UNSTAINED CELL % 3.5 % (0.0-4.0); LYMPH # 1.1 K/mm3 (1.5-4.5); MEAN CORPUSCULAR VOLUME 93.9 fl (80.0-96.0); MONO # 0.5 K/mm3 (0.0-0.8); MONO % 6.6 % (0.0-5.0); NEUTROPHILS # 5.8 K/mm3 (1.8-7.7); NEUTROPHILS % 71.4 % (36.0-66.0); PLATELET COUNT, AUTOMATED 139 k/mm3 (150-450); RED CELL DISTRIBUTION WIDTH 13.7 % (11.5-14.5); WHITE BLOOD COUNT 8.2 K/mm3 (4.0-10.0)
[2017-04-14 06:00] LABS: ALBUMIN 3.4 GM/DL (3.2-5.2); ALBUMIN/GLOBULIN RATIO 1.03 (1.00-1.93); BILIRUBIN,TOTAL 0.6 MG/DL (0.2-1.0); GLOMERULAR FILTRATION RATE 35.1 (>42); MAGNESIUM LEVEL 1.8 MG/DL (1.8-2.4); POTASSIUM SERUM 3.9 MEQ/L (3.5-5.1); TOTAL PROTEIN 6.7 GM/DL (6.4-8.2)
--- NOTE | 2017-04-14 06:44 | PHACANCOPD ---
PHARMACY VANCOMYCIN DOSING Pt Demographics Demographics Patient Age:71 , Weight:109.100 , Gender: male Adjusted Body Weight Date: 04/14/17, Adjusted Body Weight: [80.5] Kg Events Past 24 Hours Events Past 24 Hours: NO: Dialysis, Diuretic Therapy, Change in CrCl, Fever, Elevation in WBC, Pending Diagnostics, Pending Procedures, Other Vancomycin Vancomycin indication: Severe sepsis, pneumonia Vancomycin Target Ranges: 15-20 mcg/ml Vancomycin Load Y/N: No Load Dose Date Time Vancomycin Load Dose: Date: Time: Vancomycin Dose Date: 04/14/17. Current Vancomycin Dose: [1g iv Q24h] Intermittent Dosing?: No Labs Labs Item Value Date Time White Blood Count 8.2 K/mm3 04/14/17 0446 Creatinine 2.00 MG/DL H 04/14/17 0446 Micro Microbiology 04/13/17 Blood Culture, Received Pending 04/13/17 Blood Culture, Received Pending 04/13/17 Respiratory Virus Panel (PCR) ([facility]) - Final, Complete Creatinine Clearance Date:04/14/17. Creatinine Clearance: [28.8ml/min]. Assessment and Plan Maintaining Current Dose?: Yes Reason for dose change: No Dose Change Pharmacist Note Pharmacist Note Date: 04/14/17. Pharmacist note: Pt is a 71 year old male being treated for severe sepsis and pneumonia goal trough 15-20mcg/ml. The pt does not have a history of vancomycin therapy here at [facility]. A 1g dose was gave in the ER 04/13/17 @ 23:45. This is followed by maintenance therapy of 1g q24h iv starting 04/14/17 @9. We will continue to monitor and adjust dose as needed. EULALIA CARMEN PHARMACY Apr 14, 2017 06:44
[2017-04-14 08:00] VITALS: BP 151/69
[2017-04-14] MEDS: MEROPENEM INJ 1 GM in D5W MINI-BAG PLUS 100 ML IV SCH ×2 (08:08→19:46)
[2017-04-14] MEDS: LACTOBACILLUS ACIDOPHILUS CAP (BACID) PO SCH ×2 (08:09→20:31)
[2017-04-14] MEDS: POTASSIUM CHLORIDE 10 MEQ SR TABLET PO SCH (08:09)
[2017-04-14] MEDS: ASCORBIC ACID 500 MG TAB PO SCH (08:09)
[2017-04-14] MEDS: CARVedilol 6.25 MG TAB PO SCH ×2 (08:09→20:32)
[2017-04-14] MEDS: VITAMIN D 1,000 INTERNATIONAL UNITS TABLET PO SCH (08:09)
[2017-04-14] MEDS: FERROUS SULFATE 325MG TAB PO SCH (08:09)
[2017-04-14] MEDS ORDERED: CLOPIDOGREL 75 MG TAB PO SCH (09:00)
--- NOTE | 2017-04-14 09:32 | REP ---
CHEST, TWO VIEWS: Two views of the chest are performed and compared to a prior study of 02/18/2017. There is mild cardiomegaly. Chronic interstitial opacities are stable. Multiple sternal wires and mediastinal clips are present. There are degenerative changes of the spine. There is a prosthetic heart valve. IMPRESSION: Cardiomegaly with stable chronic interstitial densities. No acute pulmonary disease. Signed by Toni Puckett MD 04/14/2017 08:16 P
[2017-04-14] MEDS: VANCOMYCIN HCL 1,000 MG, VIAL MATE ADAPTER 1 EACH in D5W 250 ML IV SCH (10:01)
--- NOTE | 2017-04-14 10:58 | HPE ---
DATE OF ADMISSION: 04/14/2017 CHIEF COMPLAINT: Shortness of breath. PRIMARY CARE PROVIDER: Vahid Dill Jr., MD GAS MAIN AND LINE FITTER: Naeem Diaz MD This is a 71-year-old male with a history of congestive heart failure (CHF), endocarditis, with resultant valve replacement done last year. He has a bladder tumor removal, which was done 3 weeks ago. He has had his first dose of chemotherapy. He states that for the last week, he has been feeling shorter and shorter of breath with a slight cough. He feels like he is not getting enough air. He denies any wheezing. No mucus production. No fever or chills. No chest pain or palpitations. On arrival, electrocardiogram (EKG) was done, which shows sinus rhythm. No acute ischemia. Blood pressure was 142/67, pulse was 70, respirations were 22, oxygen (O2) saturation was 90% on room air, temperature was 99.7. LABORATORY STUDIES: WBC was 8.3, hemoglobin 10.7, hematocrit 31.7, platelets were 134, sedimentation rate was greater than 140. Sodium was 135, potassium 4.2, chloride 99, CO2 28, anion gap was 8, BUN was 58, creatinine was 2.02, troponin was less than 0.01, C-reactive protein was 4.16, BNP was 249, prostate-specific antigen (PSA) was therapeutic at 0.851. INR was 1.02. Urine had 1+ blood, nitrites were negative. Blood cultures were drawn. Chest x-ray was done, which showed cardiomegaly with stable chronic interstitial densities. No acute pulmonary disease. In the emergency room, the patient received 60 of Lasix intravenous (IV). He was started on meropenem gram 1 and vancomycin gram 1. He was given oxycodone for chronic back pain with some relief. Assessment was done. With the elevated sedimentation rate so high and the shortness of breath, concern is for recurrent of endocarditis, which he did have a year ago. The organism at that time was Enterococcus faecalis. The plan is to admit the patient to the medical floor for congestive heart failure and rule out endocarditis. He will be admitted to the service of Dr. Garner. ALLERGIES: AMPICILLIN causes hives. ASPIRIN causes lip swelling. PENICILLIN and CEFTRIAXONE cause rash. SOCIAL HISTORY: The patient is . He does not drink alcohol. He does not smoke cigarettes. He does not use recreational drugs. PAST MEDICAL HISTORY: 1. Anxiety. 2. Congestive heart failure. 3. Chronic back pain with degenerative disc disease. 4. He has had interstitial nephritis. 5. He has chronic kidney disease. 6. Coronary artery disease. The patient is on Plavix, but it is to be held on 04/15/2017. He is to have a procedure for his bladder. 7. Elevated sedimentation rate. 8. Low-grade temperature. 9. Shortness of breath. Will rule out endocarditis. Will continue vancomycin and meropenem. Will monitor for results of blood cultures. 10. History of endocarditis. Treated with antibiotics 03/26/2016 to 05/12/2016. 11. Bladder cancer. He has had a transurethral resection of prostate (TURP) and; most recently, he has had another bladder mass, for which he has had one dose of chemotherapy insertion into the bladder. 12. History of aortic valve disease. 13. History of coronary artery disease, and he has had a coronary artery bypass graft (CABG). 14. History of insulin-dependent diabetes type 2. 15. Hypertension. 16. Hyperlipidemia. 17. Obesity. 18. Chronic pain with a spinal stimulator in place. 19. Incidental lung nodule. 20. Adrenal adenoma. 21. Chronic anemia. 22. Diastolic congestive heart failure. PAST SURGICAL HISTORY: 1. CABG 13 years ago. 2. Cystoscopy times two with transurethral resection of bladder tumor in October of 2015 and in January of 2016. Most recently, had cystoscopy for a bladder mass, and he had one chemotherapy treatment. 3. Kidney tumor removal. 4. Spinal stimulator placement. 5. Laminectomy. FAMILY HISTORY: Noncontributory. HOME MEDICATIONS: - allopurinol 100 mg by mouth daily - ascorbic acid 500 mg by mouth daily - atorvastatin 20 mg by mouth daily - vitamin D 4000 units daily - Plavix 75 mg by mouth daily - colchicine 0.6 mg by mouth each evening - nitroglycerin 0.4 mg sublingual every 5 minutes times three as needed for chest pain - potassium 20 mEq by mouth daily - torsemide 20 mg by mouth daily - CoQ10 100 mg by mouth twice a day - oxycodone/acetaminophen 10/325 one by mouth every 6 hours as needed for pain, maximum daily dose four - Coreg 6.25 mg by mouth twice a day - lactobacillus one by mouth twice a day - multivitamin one daily - paroxetine 20 mg by mouth each evening REVIEW OF SYSTEMS: No complaint of headache. No blurred or double vision. Low-grade fever. No chills. No hoarseness. No difficulty swallowing. No lightheadedness. No vertigo. Cardiovascular: No complaints of chest pain. Has had increased shortness of breath. No lower extremity edema. Respiratory: He has had a cough. No mucus production. No hemoptysis. No orthopnea. No wheeze. GI: No nausea, vomiting, or diarrhea. No hematochezia. No melena. No complaints of abdominal pain. Genitourinary (): No hematuria, dysuria, frequency. Musculoskeletal: No joint redness or swelling. Endocrine: No polyuria, polydipsia, or polyphagia. Hematological: No history of anemia. Neurological: No history of seizures. Does have neuropathy. Psychological: No history of suicidal ideation. Is on Paxil with good response for his anxiety and depression. PHYSICAL EXAMINATION: A 71-year-old cooperative male, in no acute distress. Blood pressure 106/60, pulse 88, respirations 16, temperature 96.8. The patient is alert and oriented times three. Pale. Pupils equal and react to light. Extraocular movements (EOMs) intact Cornea and sclerae clear. Conjunctivae normal. No facial asymmetry. Pharynx, tongue, and gums pink and moist. Tongue is midline. NECK: Is supple without lymphadenopathy. No thyromegaly. No goiter. Jugular venous pressure is below the clavicle. CHEST: Clear to auscultation without wheeze or retraction. A few fine basilar rales. HEART: Is regular. ABDOMEN: Benign. Bowel sounds positive. GENITOURINARY ()/RECTAL: Not done. EXTREMITIES: Show trace peripheral edema. Peripheral pulses equal and palpable bilaterally. IMPRESSION: 1. Congestive heart failure. Good diuresing with the IV Lasix. 2. Elevated sedimentation rate. 3. Low-grade temperature. 4. Shortness of breath. Will order an echocardiogram to rule out vegetation. Continue IV antibiotics of IV vancomycin and meropenem. Followup on blood cultures. Monitor blood pressures. The patient states that he had at one time been on metformin. He states he was taken off of it in March of 2017. He states his fingerstick blood sugars at home have been running 92-120. Will check a hemoglobin A1c and check fingerstick blood sugars. History of congestive heart failure (CHF), continue diuretics. He is currently net negative 1060. Hypertension, stable. The patient admitted inpatient status to the progressive care unit (PCU).
[2017-04-14] MEDS: MULTIVITAMINS/MINERALS THERAP 1 TAB PO SCH (11:19)
[2017-04-14] MEDS: FUROSEMIDE 100 MG/10 ML VIAL (J1940) IV SCH (11:19)
[2017-04-14] MEDS: ANEXSIA, NORCO 7.5MG/325MG TABLET(HYDROCODONE/APAP) PO PRN ×2 (11:19→21:04)
[2017-04-14] MEDS ORDERED: ANEXSIA, NORCO 7.5MG/325MG TABLET(HYDROCODONE/APAP) PO SCH (12:00)
[2017-04-14 16:00] VITALS: BP 144/72
[2017-04-14] MEDS: COLCHICINE 0.6 MG TAB PO SCH (20:31)
[2017-04-14] MEDS: ATORVASTATIN 20 MG TAB PO SCH (20:31)
[2017-04-14] MEDS: ALLOPURINOL 100 MG TAB PO SCH (20:31)
[2017-04-14] MEDS: PARoxetine 20 MG TAB PO SCH (20:31)
[2017-04-14 20:38] VITALS: BP 140/60
[2017-04-14 23:59] VITALS: BP 113/51
[2017-04-15] MEDS ORDERED: MORPHINE 2 MG/ML 1ML SYRINGE IV ONE (01:45)
[2017-04-15 04:34] VITALS: BP 135/67
[2017-04-15] MEDS: ANEXSIA, NORCO 7.5MG/325MG TABLET(HYDROCODONE/APAP) PO PRN ×3 (05:01→17:18)
[2017-04-15 06:07] LABS: ALBUMIN 3.2 GM/DL (3.2-5.2); ALBUMIN/GLOBULIN RATIO 0.74 (1.00-1.93); BILIRUBIN,TOTAL 0.8 MG/DL (0.2-1.0); CALCIUM LEVEL 8.1 MG/DL (8.8-10.2); CREATININE FOR GFR 1.97 MG/DL (0.70-1.30); GLOMERULAR FILTRATION RATE 35.8 (>42); POTASSIUM SERUM 3.9 MEQ/L (3.5-5.1); TOTAL PROTEIN 7.5 GM/DL (6.4-8.2)
[2017-04-15 08:00] VITALS: BP 150/70
[2017-04-15] MEDS: FERROUS SULFATE 325MG TAB PO SCH (08:34)
[2017-04-15] MEDS: LACTOBACILLUS ACIDOPHILUS CAP (BACID) PO SCH ×2 (08:34→20:26)
[2017-04-15] MEDS: MEROPENEM INJ 1 GM in D5W MINI-BAG PLUS 100 ML IV SCH (08:34)
[2017-04-15] MEDS: VITAMIN D 1,000 INTERNATIONAL UNITS TABLET PO SCH (08:34)
[2017-04-15] MEDS: ASCORBIC ACID 500 MG TAB PO SCH (08:35)
[2017-04-15] MEDS: CARVedilol 6.25 MG TAB PO SCH ×2 (08:35→20:26)
[2017-04-15] MEDS: FUROSEMIDE 100 MG/10 ML VIAL (J1940) IV SCH (08:35)
[2017-04-15] MEDS: MULTIVITAMINS/MINERALS THERAP 1 TAB PO SCH (08:35)
[2017-04-15] MEDS: POTASSIUM CHLORIDE 10 MEQ SR TABLET PO SCH (08:35)
--- NOTE | 2017-04-15 08:41 | REP ---
PA and lateral chest: Comparison is 04/13/2017. Mild interstitial coarsening and mild cardiomegaly are again identified, unchanged. There are sternotomy wires and cardiac valve prosthesis, unchanged. Spinal stimulator is again noted, unchanged. Slight effacement right costophrenic angle is again noted, unchanged. Impression: There is no interval change. Signed by Toni Ramirez MD 04/15/2017 08:33 A
--- NOTE | 2017-04-15 09:09 | ECGEPIP ---
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
--- NOTE | 2017-04-15 09:19 | PHACANCOPD ---
PHARMACY VANCOMYCIN DOSING Pt Demographics Demographics Patient Age:71 , Weight:107.600 , Gender: male Adjusted Body Weight Date: 04/14/17, Adjusted Body Weight: [80.5] Kg Events Past 24 Hours Events Past 24 Hours: NO: Dialysis, Diuretic Therapy, Change in CrCl, Fever, Elevation in WBC, Pending Diagnostics, Pending Procedures, Other Vancomycin Vancomycin indication: Severe sepsis, pneumonia Vancomycin Target Ranges: 15-20 mcg/ml Vancomycin Load Y/N: No Load Dose Date Time Vancomycin Load Dose: Date: Time: Vancomycin Dose Date: 04/14/17. Current Vancomycin Dose: [1g iv Q24h] Intermittent Dosing?: No Labs Labs Item Value Date Time White Blood Count 8.3 K/mm3 04/13/172049 White Blood Count 8.2 K/mm3 04/14/17 0446 Creatinine 2.00 MG/DL H 04/14/17 0446 Creatinine 1.97 MG/DL H 04/15/17 0525 Vancomycin Level Trough 13.2 UG/ML 04/15/17 0805 Micro Microbiology 04/13/17 Blood Culture - Preliminary, Resulted No growth after 24 hours . All specim... 04/13/17 Blood Culture - Preliminary, Resulted No growth after 24 hours . All specim... 04/13/17 Respiratory Virus Panel (PCR) ([facility]) - Final, Complete Creatinine Clearance Date:04/14/17. Creatinine Clearance: [28.8ml/min]. Assessment and Plan Maintaining Current Dose?: Yes Reason for dose change: No Dose Change Pharmacist Note Pharmacist Note Date: 04/15/17. Pharmacist note: Trough returned @ 13.2 after 2 Vanco doses. Trough is subtherapeutic, but is expected to achieve therapeutic concentrations when steady state is achieved. Continue current dosing and monitor renal function. Follow up with another trough in a few days. Date: 04/14/17. Pharmacist note: Pt is a 71 year old male being treated for severe sepsis and pneumonia goal trough 15-20mcg/ml. The pt does not have a history of vancomycin therapy here at [facility]. A 1g dose was gave in the ER 04/13/17 @ 23:45. This is followed by maintenance therapy of 1g q24h iv starting 04/14/17 @9. We will continue to monitor and adjust dose as needed. DAKOTAH CABAN PHARMACY Apr 15, 2017 09:19
[2017-04-15] MEDS: VANCOMYCIN HCL 1,000 MG, VIAL MATE ADAPTER 1 EACH in D5W 250 ML IV SCH (10:00)
[2017-04-15 12:00] VITALS: BP 120/67
[2017-04-15] MEDS ORDERED: ANEXSIA, NORCO 7.5MG/325MG TABLET(HYDROCODONE/APAP) PO PRN (12:00)
[2017-04-15 16:00] VITALS: BP 122/65
--- NOTE | 2017-04-15 19:02 | IPNPDOC ---
Subjective Date Seen The patient was seen on 04/15/17. Subjective Chief Complaint/HPI The patient is a 71-year-old male admitted with a reason for visit of Endocarditis/Chf. Events since last encounter no acute events, denied cp, sob, abd pain, n/v. reported back to baseline, denied f/c General: Denies: Chills Constitutional: Denies: Chills, Fever Eyes: Denies: Pain, Vision change ENT: Denies: Head Aches Pulmonary: Denies: Dyspnea, Cough Cardiovascular: Denies: Chest Pain, Palpitations Gastrointestinal: Denies: Nausea, Vomiting, Abdominal Pain Objective Physical Examination General Exam: Positive: Alert, Cooperative, No Acute Distress Eye Exam: Positive: PERRLA, Conjunctiva & lids normal, EOMI Chest Exam: Positive: Clear to auscultation, Normal air movement, Diminished Heart Exam: Positive: Rate Normal, Normal S1, Normal S2, Murmurs Abdomen Exam: Positive: Normal bowel sounds, Soft, Negative: Tenderness Extremity Exam: Negative: Clubbing, Cyanosis, Edema Assessment /Plan Assessment 71 M h/o CHF, bladder cancer October 2015, hypertension, coronary artery disease, severe aortic regurgitation and aortic stenosis awaiting double valve replacement, coronary artery bypass graft (CABG), diabetes, hypertension, hyperlipidemia, obesity, chronic pain with spinal stimulator, incidental lung nodule, adenoma, chronic anemia, Enterococcus infective endocarditis, recent urology procedure 2 weeks ago, presented with sob , Problems (1) Acute diastolic (congestive) heart failure Problem Text: lasix I and O dailyu weight respiration baseline tele enzymes and echo (2) Elevated erythrocyte sedimentation rate Problem Text: h/o of endocarditis c/u culture cori and vacno Id consulted tte (3) CAD (coronary artery disease) Problem Text: c/w current med tte, enzymes ekg tele (4) Gout Problem Text: c/w med (5) Depression Problem Text: c/w med (6) Bladder cancer Problem Text: outpatient f/u (7) HTN (hypertension) Problem Text: c/w med (8) Chronic back pain Status: Chronic Problem Text: c.w med (9) CKD (chronic kidney disease) Status: Chronic Problem Specific Plan: Repeat Labs Problem Text: stable, baseline monitor Plan/VTE VTE Prophylaxis Ordered?: Yes (heparin sq) VTE Exclusion Mechanical Proph: Low Risk for VTE Disposition PT and ID consult, cultures VS, I&O, 24H, [facility] Vital Signs/I&O Vital Signs Date Time Temp Pulse Resp B/P (MAP) Pulse Ox O2 Delivery O2 Flow Rate FiO2 04/15/17 17:48 18 04/15/17 16:00 98.1 90 122/65 (84) 92 Room Air 04/14/17 16:30 2.0 I&O- Last 24 Hours up to 6 AM 04/15/17 06:00 Intake Total 2630 ml Output Total 2375 ml Balance 255 ml Laboratory Data 24H LABS Laboratory Tests 2 04/14/17 20:31: Total Creatine Kinase 47, Creatine Kinase MB 1.0, Creatine Kinase MB Relative Index 2.12, Troponin I < 0.02 04/15/17 05:25: Erythrocyte Sedimentation Rate 128H, Anion Gap 9, Glomerular Filtration Rate 35.8L, Blood Urea Nitrogen 60H, Creatinine 1.97H, Sodium Level 134L, Potassium Level 3.9, Chloride Level 97L, Carbon Dioxide Level 28, Calcium Level 8.1L, Aspartate Amino Transf (AST/SGOT) 24, Alanine Aminotransferase (ALT/SGPT) 55, Alkaline Phosphatase 139H, Total Bilirubin 0.8, Total Protein 7.5, Albumin 3.2, C-Reactive Protein, Quantitative 6.32H, Albumin/Globulin Ratio 0.74L 04/15/17 08:05: Vancomycin Level Trough 13.2 04/15/17 17:09: C-Reactive Protein, Quantitative 7.60H CBC/BMP Laboratory Tests 04/15/17 05:25 Calcium Level 8.1 L, Aspartate Amino Transf (AST/SGOT) 24, Alanine Aminotransferase (ALT/SGPT) 55, Alkaline Phosphatase 139 H, Total Bilirubin 0.8 , Total Protein 7.5, Albumin 3.2 Microbiology Microbiology 04/13/17 Blood Culture - Preliminary, Resulted No growth after 24 hours . All specim... 04/13/17 Blood Culture - Preliminary, Resulted No growth after 24 hours . All specim... 04/13/17 Respiratory Virus Panel (PCR) ([facility]) - Final, Complete DALIA CALLAHAN MD Apr 15, 2017 19:02
[2017-04-15] MEDS: PARoxetine 20 MG TAB PO SCH (20:25)
[2017-04-15] MEDS: COLCHICINE 0.6 MG TAB PO SCH (20:25)
[2017-04-15] MEDS: ATORVASTATIN 20 MG TAB PO SCH (20:26)
[2017-04-15] MEDS: HEPARIN SOD (PORCINE) 5000 UNITS/ML VIAL SQ SCH (20:26)
[2017-04-15 20:50] VITALS: BP 141/80
[2017-04-15] MEDS: ALLOPURINOL 100 MG TAB PO SCH (20:58)
--- NOTE | 2017-04-15 21:07 | CR ---
DATE OF CONSULTATION: 04/15/2017 Asked to consult by hospitalist for evaluation of elevated sedimentation rate and CRP. HISTORY OF PRESENT ILLNESS: Mr. Mckeon is a pleasant 71-year-old gentleman with a history of congestive heart failure, Enterococcus faecalis, endocarditis diagnosed in February 2016 with severe aortic insufficiency status post aortic valve replacement with a bioprosthetic valve. The patient had done well after surgery but developed recurrent bladder cancer. The patient had a TURBT on 03/26/2017 for recurrent urothelial cancer. He came to the hospital complaining of increasing shortness of breath. He denied having any fever or chills. No nausea, vomiting or diarrhea. No abdominal pain. He states that other than the increased shortness of breath he did not have other symptoms. He was treated with furosemide 60 mg IV daily and antibiotics meropenem and vancomycin after blood cultures were taken on 04/13/2017, both blood cultures were no growth. The patient feels back to his baseline. PAST MEDICAL HISTORY: Is significant for congestive heart failure, bladder cancer, anxiety disorder, chronic back pain with degenerative disc disease, history of interstitial nephritis, coronary artery disease on Plavix. Bladder cancer with recurrence status post TURBT for bladder mass, history of aortic insufficiency status post aortic valve replacement, insulin-dependent diabetes, hypertension, hyperlipidemia, obesity, lung nodule, adrenal adenoma, anemia of chronic disease, diastolic congestive heart failure, gout with recent flareup in the past month. PAST SURGICAL HISTORY: Coronary artery bypass graft (CABG) 13 years ago, aortic valve replacement 2015, cystoscopy with transurethral resection of bladder tumor. He never received BCG and he is scheduled to start BCG treatment after this TURBT. Kidney removal, spinal cord stimulator, upper back, laminectomy, and bilateral cataract surgery in 2016. MEDICATIONS: - hydrocodone one tablet by mouth every 6 hours as needed - allopurinol 100 mg by mouth daily - Lipitor 20 mg by mouth daily - colchicine 0.6 mg daily - Paxil 20 mg daily - ascorbic acid 500 mg daily - Coreg 6.25 mg twice a day - vitamin D 4000 units daily - ferrous sulfate 325 mg by mouth daily - probiotic one tablet twice a day - vancomycin 1 gram IV every 24 hours - meropenem 1 gram IV every 12 hours - nitroglycerin as needed LABORATORY DATA: White count was normal on admission 8.3, today 8.2. ESR more than 140 on admission and 128 on 04/15/2017. Sodium is 134, potassium 3.9, chloride 97, bicarbonate 28, BUN 60, creatinine 1.97, glucose 105, calcium 8.1, bilirubin 0.8, AST 24, ALT 55, alkaline phosphatase 139, CRP 6.32, albumin 3.2. Blood cultures on 04/13/2017, were negative after 24 hours. Respiratory panel negative. IMAGING STUDIES: Chest x-ray done on admission shows cardiomegaly, chronic interstitial densities, no acute pulmonary disease. Repeat chest x-ray done 48 hours later shows no interval change with no pneumonia. PHYSICAL EXAMINATION: Temperature is 98.1, pulse 90, respirations 19, blood pressure 122/65, oxygen saturation 92-100% on room air. He has been afebrile throughout this admission except for one temperature of 99.7. Heart: Normal S1, S2, with a systolic ejection murmur best heard at the right upper sternal border, 2/6. Lungs: Clear. No wheezes, rales, or rhonchi. Abdomen: Morbidly obese, soft, nontender. Extremities: No edema. No gout flare-up. No swelling of the toes. No clubbing or cyanosis. No rashes. Oropharynx: Clear. Healed midline scar of surgery of chest wall. IMPRESSION: This is a 71-year-old gentleman with bladder cancer status post TURBT 03/26/2017, history of Enterococcus (E) faecalis endocarditis status post bioprosthetic aortic valve who presented to the hospital with symptoms suggestive of congestive heart failure. The patient denied having fevers or chills. He did not have a prolonged illness. He feels already better within 48 hours of being here. Blood cultures have been negative. There has been no documented fever over 100. Echocardiogram has been done today and is still pending. PLAN: Discontinue IV vancomycin and meropenem. There is no evidence of infection by blood culture or chest x-ray. Will followup on echocardiogram prior to discharge. Continue treatment for congestive heart failure, at this point I doubt he has recurrent endocarditis with negative culture. Repeat C-reactive protein (CRP) in the morning. If the patient has any symptoms suggestive of endocarditis such as has low grade fevers, persistent elevated inflammation marker which could be elevated from recent surgery, then would repeat more blood cultures as an outpatient.
[2017-04-16] VITALS (7 sets, daily range): BP systolic 126–161; BP diastolic 59–86
[2017-04-16] MEDS: ANEXSIA, NORCO 7.5MG/325MG TABLET(HYDROCODONE/APAP) PO PRN ×3 (00:20→19:31)
--- NOTE | 2017-04-16 00:35 | ECHO ---
DATE OF PROCEDURE: 04/15/2017 DATE OF : 1945 AGE: 71 GENDER: Male HEIGHT: 65 inches WEIGHT: 240 pounds BODY SURFACE AREA: 2.14 meters squared. INPATIENT: Progressive care unit (PCU), Room 3219. REFERRING PHYSICIAN: Dr. Garner INDICATION: Fever. History of endocarditis. Status post mitral and aortic valve replacement. MEASUREMENTS: 2D measurements: RV: 3.9 cm LV: 4.9 cm Septum: 1.2 cm Posterior wall: 1.2 cm Aortic root: 3.4 cm LA: 5.5 cm LVEF: 75% Doppler measurements: AV: 3.0 meters per second LVOT: 1.7 meters per second LVOT diameter: 1.9 cm Mean AV gradient: 15 mmHg MV-E: 210, A: 230, EA ratio: 0.9 Early mitral deceleration time: 245 milliseconds Mean MV gradient: 12 mmHg PV: 0.9 meters per second Pulmonary artery acceleration time: 77 milliseconds RVSP: 47 mmHg IVC: 2.1 cm COMMENT: Normal sinus rhythm with occasional frequent isolated PVCs. Right bundle branch block. Technically difficult study in light of the patient's body configuration but diagnostically useful information was still obtained. Prominently dilated left atrium but normal left ventricular size. Right ventricular size was normal. Right atrium appeared to be at least mildly dilated. LV wall thickness was upper limits of normal to mildly hypertrophied symmetrically. On real-time imaging from the parasternal and projections, wall motion was symmetrical and hyperkinetic. Echogenic bioprosthetic mitral valve with visible cusp motion. Bioprosthetic aortic valve also with visible cusp motion. Normal aortic root size. Unable to detect an intracardiac mass. No pericardial effusion. Color flow Doppler study taken from the parasternal and apical projection showed trace aortic, trace mitral and mild tricuspid insufficiency (physiological findings for these valvular structures and tricuspid valve). Pulsed and continuous wave Doppler of his prosthetic aortic valve and LV outflow tract showed an increased peak systolic velocity across the valve but his LV outflow tract velocity was also significantly increased resulting in the dimensionless index of 0.5 against LV outflow tract obstruction at this time. Pulsed and continuous wave Doppler of his mitral valve showed an increased peak systolic velocity and mean gradient suspected to be related to hyperdynamic flow, not believed to be prosthetic stenosis. Pulsed and continuous wave Doppler of his pulmonary trunk showed a normal peak systolic velocity against RV outflow tract obstruction. His pulmonary artery acceleration time was abbreviated consistent with an elevated pulmonary vascular resistance. Guided continuous wave Doppler of his tricuspid valve allowed our estimation of his right ventricular systolic pressure (moderately increased). His inferior vena cava was of normal size with slightly reduced respiratory collapse suggestive of at least a mildly elevated central venous pressure. CONCLUSIONS: Technically challenging study in light of the patient's body habitus. Bioprosthetic mitral and tricuspid valves without clear evidence of valvular dysfunction. Unable to detect an intracardiac mass or vegetation. Borderline concentric left ventricle hypertrophy with hyperkinetic wall motion. Prominently dilated left atrium. Normal right ventricular size and contraction with Doppler evidence of moderate pulmonary hypertension. Mildly dilated right atrium but normal IVC size with slightly reduced respiratory collapse consistent with no more than a slightly elevated central venous pressure. If endocarditis is seriously suspect, a transesophageal echocardiogram would have to be performed here.
[2017-04-16 05:37] LABS: MEAN CORPUSCULAR HEMOGLOBIN 31.7 pg (27.0-33.0); MEAN CORPUSCULAR VOLUME 93.4 fl (80.0-96.0); PLATELET COUNT, AUTOMATED 160 k/mm3 (150-450); RED CELL DISTRIBUTION WIDTH 13.5 % (11.5-14.5); WHITE BLOOD COUNT 9.1 K/mm3 (4.0-10.0)
[2017-04-16 05:58] LABS: ERYTHROCYTE SEDIMENTATION RATE > 140 mm/hr (0-20)
[2017-04-16 06:02] LABS: CALCIUM LEVEL 8.3 MG/DL (8.8-10.2); CREATININE FOR GFR 2.2 MG/DL (0.70-1.30); GLOMERULAR FILTRATION RATE 31.5 (>42)
[2017-04-16 06:03] LABS: ALBUMIN 3.2 GM/DL (3.2-5.2); ALBUMIN/GLOBULIN RATIO 0.71 (1.00-1.93); BILIRUBIN,TOTAL 0.6 MG/DL (0.2-1.0); TOTAL PROTEIN 7.7 GM/DL (6.4-8.2)
[2017-04-16] MEDS: MULTIVITAMINS/MINERALS THERAP 1 TAB PO SCH (08:21)
[2017-04-16] MEDS: POTASSIUM CHLORIDE 10 MEQ SR TABLET PO SCH (08:22)
[2017-04-16] MEDS: VITAMIN D 1,000 INTERNATIONAL UNITS TABLET PO SCH (08:22)
[2017-04-16] MEDS: ASCORBIC ACID 500 MG TAB PO SCH (08:22)
[2017-04-16] MEDS: LACTOBACILLUS ACIDOPHILUS CAP (BACID) PO SCH ×2 (08:22→21:43)
[2017-04-16] MEDS: HEPARIN SOD (PORCINE) 5000 UNITS/ML VIAL SQ SCH ×2 (08:22→21:44)
[2017-04-16] MEDS: FERROUS SULFATE 325MG TAB PO SCH (08:23)
[2017-04-16] MEDS: FUROSEMIDE 100 MG/10 ML VIAL (J1940) IV SCH (08:23)
[2017-04-16] MEDS: CARVedilol 6.25 MG TAB PO SCH ×2 (08:23→21:44)
[2017-04-16] MEDS ORDERED: PREVNAR 13 VACCINE SYRINGE (CPT CODE:90670) IM ONE (09:00)
--- NOTE | 2017-04-16 17:05 | IPNPDOC ---
Subjective Date Seen The patient was seen on 04/16/17. Subjective Chief Complaint/HPI The patient is a 71-year-old male admitted with a reason for visit of Endocarditis/Chf. Events since last encounter Patient febrile this am. reported chronic abd pain and back pain. Denied CP , sob, n/v/diarrhea/ General: Denies: Chills Constitutional: Reports: Fever, Denies: Chills Eyes: Denies: Pain, Vision change ENT: Denies: Head Aches, Ear Pain Skin: Denies: Rash, Lesions Pulmonary: Denies: Dyspnea, Cough Cardiovascular: Denies: Chest Pain, Palpitations, Orthopnea Gastrointestinal: Denies: Nausea, Vomiting, Abdominal Pain, Diarrhea Musculoskeletal: Reports: Back Pain Objective Physical Examination General Exam: Positive: Alert, Cooperative, No Acute Distress Eye Exam: Positive: PERRLA, Conjunctiva & lids normal, EOMI Chest Exam: Positive: Clear to auscultation, Normal air movement, Diminished Heart Exam: Positive: Rate Normal, Normal S1, Normal S2, Murmurs Abdomen Exam: Positive: Normal bowel sounds, Soft Extremity Exam: Negative: Clubbing, Cyanosis, Edema Assessment /Plan Assessment 71 M h/o CHF, bladder cancer October 2015, hypertension, coronary artery disease, severe aortic regurgitation and aortic stenosis awaiting double valve replacement, coronary artery bypass graft (CABG), diabetes, hypertension, hyperlipidemia, obesity, chronic pain with spinal stimulator, incidental lung nodule, adenoma, chronic anemia, Enterococcus infective endocarditis, recent urology procedure 2 weeks ago, presented with sob , Problems (1) Fever of unknown origin Problem Text: consulted ID repeat culture sent AARON, CT abd pelvis was given merro and vanco, hold antibiotics for now (2) Acute diastolic (congestive) heart failure Problem Text: lasix I and O daily weight respiration baseline tele enzymes and echo (3) Elevated erythrocyte sedimentation rate Problem Text: h/o of endocarditis c/[facility] [place] [facility] Id consulted tte, AARON (4) CAD (coronary artery disease) Problem Text: c/w current med tte, enzymes ekg tele (5) Gout Problem Text: c/w med (6) Depression Problem Text: c/w med (7) Bladder cancer Problem Text: outpatient f/u (8) HTN (hypertension) Problem Text: c/w med (9) Chronic back pain Status: Chronic Problem Text: c.w med (10) CKD (chronic kidney disease) Status: Chronic Problem Specific Plan: Repeat Labs Problem Text: stable, baseline monitor Plan/VTE VTE Prophylaxis Ordered?: Yes VTE Exclusion Mechanical Proph: Low Risk for VTE Disposition pending further workup. VS, I&O, 24H, Fishbone Vital Signs/I&O Vital Signs Date Time Temp Pulse Resp B/P (MAP) Pulse Ox O2 Delivery O2 Flow Rate FiO2 04/16/17 16:11 Room Air 04/16/17 13:46 18 04/16/17 12:00 100.2 63 155/69 (97) 96 04/16/17 00:50 2.0 I&O- Last 24 Hours up to 6 AM 04/16/17 06:00 Intake Total 1440 ml Output Total 1475 ml Balance -35 ml Laboratory Data 24H LABS Laboratory Tests 2 04/15/17 17:09: C-Reactive Protein, Quantitative 7.60H 04/16/17 05:22: C-Reactive Protein, Quantitative 6.05H, Erythrocyte Sedimentation Rate > 140H, Anion Gap 7L, Glomerular Filtration Rate 31.5L, Blood Urea Nitrogen 68H, Creatinine 2.20H, Sodium Level 133L, Potassium Level 4.0, Chloride Level 97L, Carbon Dioxide Level 29, Calcium Level 8.3L, Aspartate Amino Transf (AST/SGOT) 22, Alanine Aminotransferase (ALT/SGPT) 50, Alkaline Phosphatase 142H, Total Bilirubin 0.6, Total Protein 7.7, Albumin 3.2, Albumin/Globulin Ratio 0.71L 04/16/17 10:50: Urine Appearance CLEAR, Urine Color YELLOW, Urine pH 6.0, Urine Specific [place] 1.006, Urine Protein NEGATIVE, Urine Glucose (UA) NEGATIVE, Urine Ketones NEGATIVE, Urine Urobilinogen 0.2, Urine Bilirubin NEGATIVE, Urine Leukocyte Esterase 1+H, Urine Blood 2+H, Urine Nitrite NEGATIVE, Urine WBC (Auto ) 3, Urine RBC (Auto) 19H, Urine Hyaline Casts (Auto) 1, Urine Bacteria (Auto) 1 +H, Urine Squamous Epithelial Cells 0, Urine Mucus (Auto) SMALL, Urine Sperm ( Auto) CBC/BMP Laboratory Tests 04/16/17 05:22 Red Blood Count 3.53 L, Mean Corpuscular Volume 93.4, Mean Corpuscular Hemoglobin 31.7, Mean Corpuscular Hemoglobin Concent 34.0, Red Cell Distribution Width 13.5, Calcium Level 8.3 L, Aspartate Amino Transf (AST/SGOT) 22, Alanine Aminotransferase (ALT/SGPT) 50, Alkaline Phosphatase 142 H, Total Bilirubin 0.6, Total Protein 7.7, Albumin 3.2 Microbiology Microbiology 04/16/17 Blood Culture, Received Pending 04/16/17 Blood Culture, Received Pending 04/13/17 Blood Culture - Preliminary, Resulted No Growth after 48 hours. All Specime... 04/13/17 Blood Culture - Preliminary, Resulted No Growth after 48 hours. All Specime... 04/13/17 Respiratory Virus Panel (PCR) ([facility]) - Final, Complete 04/16/17 Urine Culture, Received Pending DALIA CALLAHAN MD Apr 16, 2017 17:05
--- NOTE | 2017-04-16 17:20 | REP ---
CT ABDOMEN AND PELVIS WITHOUT CONTRAST: CT abdomen and pelvis performed without oral or IV contrast and compared to multiple prior exam, the most recent of which is 03/29/2016. Scattered fibrotic changes are seen in the visualized lung bases. There is superimposed mild atelectasis or infiltrate in the right lower lobe. The liver is grossly unremarkable. A large gallstone is seen once again in the gallbladder as on prior studies without gallbladder wall thickening or pericholecystic edema. The gallstone measures 1.5 cm in diameter. The spleen is grossly unremarkable. The adrenals demonstrate diffuse thickening bilaterally, unchanged. The pancreas and kidneys are grossly unremarkable except for a hyperdense cyst in the lower pole of the left kidney. There is no hydroureteronephrosis. There is no nephrolithiasis. There are moderate atherosclerotic calcifications of the abdominal aorta without aneurysm. There is no adenopathy. There is no free air or free fluid. There is no bowel wall thickening. The urinary bladder is mildly distended and grossly unremarkable. There are small bilateral inguinal hernias containing fat. There is diffuse lytic appearance of the sacrum, which is unchanged compared to several prior exams dating back to 10/13/2013. IMPRESSION: Mild right lower lobe atelectasis/infiltrate. Gallstone again seen in the gallbladder. No other acute abnormalities are visualized as discussed in detail above. Signed by Toni Puckett MD 04/17/2017 05:12 P
[2017-04-16] MEDS: COLCHICINE 0.6 MG TAB PO SCH (21:43)
[2017-04-16] MEDS: ATORVASTATIN 20 MG TAB PO SCH (21:43)
[2017-04-16] MEDS: ALLOPURINOL 100 MG TAB PO SCH (21:44)
[2017-04-16] MEDS: PARoxetine 20 MG TAB PO SCH (21:44)
[2017-04-17 04:00] VITALS: BP 173/96
[2017-04-17] MEDS: ANEXSIA, NORCO 7.5MG/325MG TABLET(HYDROCODONE/APAP) PO PRN ×3 (04:09→18:09)
[2017-04-17 05:49] LABS: MEAN CORPUSCULAR HEMOGLOBIN 32.2 pg (27.0-33.0); MEAN CORPUSCULAR HGB CONC 34.4 g/dl (32.0-36.5); MEAN CORPUSCULAR VOLUME 93.6 fl (80.0-96.0); RED CELL DISTRIBUTION WIDTH 13.8 % (11.5-14.5); WHITE BLOOD COUNT 6.8 K/mm3 (4.0-10.0)
[2017-04-17 06:05] LABS: ALBUMIN/GLOBULIN RATIO 0.71 (1.00-1.93); BILIRUBIN,TOTAL 0.6 MG/DL (0.2-1.0); CALCIUM LEVEL 8.2 MG/DL (8.8-10.2); CREATININE FOR GFR 2.08 MG/DL (0.70-1.30); GLOMERULAR FILTRATION RATE 33.6 (>42); POTASSIUM SERUM 3.9 MEQ/L (3.5-5.1); TOTAL PROTEIN 7.2 GM/DL (6.4-8.2)
[2017-04-17 08:00] VITALS: BP 159/95
[2017-04-17] MEDS: HEPARIN SOD (PORCINE) 5000 UNITS/ML VIAL SQ SCH ×2 (09:00→21:00)
[2017-04-17] MEDS: VITAMIN D 1,000 INTERNATIONAL UNITS TABLET PO SCH (09:21)
[2017-04-17] MEDS: FERROUS SULFATE 325MG TAB PO SCH (09:22)
[2017-04-17] MEDS: POTASSIUM CHLORIDE 10 MEQ SR TABLET PO SCH (09:22)
[2017-04-17] MEDS: MULTIVITAMINS/MINERALS THERAP 1 TAB PO SCH (09:22)
[2017-04-17] MEDS: CARVedilol 6.25 MG TAB PO SCH ×2 (09:22→21:15)
[2017-04-17] MEDS: LACTOBACILLUS ACIDOPHILUS CAP (BACID) PO SCH ×2 (09:22→21:14)
[2017-04-17] MEDS: ASCORBIC ACID 500 MG TAB PO SCH (09:22)
[2017-04-17] MEDS: FUROSEMIDE 100 MG/10 ML VIAL (J1940) IV SCH (09:23)
[2017-04-17 12:00] VITALS: BP 142/60
[2017-04-17 16:00] VITALS: BP 141/66
--- NOTE | 2017-04-17 17:21 | IPNPDOC ---
Subjective Date Seen The patient was seen on 04/17/17. Subjective Chief Complaint/HPI The patient is a 71-year-old male admitted with a reason for visit of Endocarditis/Chf. Events since last encounter No acute events overnight, febrile overnight, Denied sob, n/v/abd pain. General: Denies: Chills Constitutional: Reports: Fever, Denies: Chills ENT: Denies: Head Aches Skin: Denies: Rash, Lesions Pulmonary: Denies: Dyspnea, Cough Cardiovascular: Denies: Chest Pain, Palpitations Gastrointestinal: Denies: Nausea, Vomiting, Abdominal Pain, Diarrhea Objective Physical Examination General Exam: Positive: Alert, Cooperative, No Acute Distress Eye Exam: Positive: PERRLA, Conjunctiva & lids normal, EOMI Chest Exam: Positive: Clear to auscultation, Normal air movement, Diminished Heart Exam: Positive: Rate Normal, Normal S1, Normal S2, Murmurs Abdomen Exam: Positive: Normal bowel sounds, Soft Extremity Exam: Negative: Clubbing, Cyanosis, Edema Assessment /Plan Assessment 71 M h/o CHF, bladder cancer October 2015, hypertension, coronary artery disease, severe aortic regurgitation and aortic stenosis with double valve replacement, coronary artery bypass graft (CABG), diabetes, hypertension, hyperlipidemia, obesity, chronic pain with spinal stimulator, incidental lung nodule, adenoma, chronic anemia, Enterococcus infective endocarditis, recent urology procedure 2 weeks ago, presented with sob , Problems (1) Fever of unknown origin Problem Text: consulted ID repeat culture sent AARON, CT abd pelvis was given merro and vanco, hold antibiotics for now esr, crp appreciated, elevated (2) Acute diastolic (congestive) heart failure Problem Text: lasix I and O daily weight respiration baseline tele enzymes and echo (3) Elevated erythrocyte sedimentation rate Problem Text: h/o of endocarditis c/u culture initally on cori and vacno, DC per ID Id consulted tte, AARON (4) CAD (coronary artery disease) Problem Text: c/w current med tte, enzymes ekg tele (5) Gout Problem Text: c/w med (6) Depression Problem Text: c/w med (7) Bladder cancer Problem Text: outpatient f/u (8) HTN (hypertension) Problem Text: c/w med (9) Chronic back pain Status: Chronic Problem Text: c.w med (10) CKD (chronic kidney disease) Status: Chronic Problem Specific Plan: Repeat Labs Problem Text: stable, baseline monitor Plan/VTE VTE Prophylaxis Ordered?: Yes (heparin SQ) VTE Exclusion Mechanical Proph: Low Risk for VTE Disposition pending AARON and Final ID recs VS, I&O, 24H, Fishbone Vital Signs/I&O Vital Signs Date Time Temp Pulse Resp B/P (MAP) Pulse Ox O2 Delivery O2 Flow Rate FiO2 04/17/17 16:00 99.8 77 19 141/66 (91) 94 Room Air 04/17/17 04:39 2.0 I&O- Last 24 Hours up to 6 AM 04/17/17 06:00 Intake Total 780 ml Output Total 400 ml Balance 380 ml Laboratory Data 24H LABS Laboratory Tests 2 04/17/17 05:03: Erythrocyte Sedimentation Rate 126H, Anion Gap 6L, Glomerular Filtration Rate 33.6L, Blood Urea Nitrogen 61H, Creatinine 2.08H, Sodium Level 137, Potassium Level 3.9, Chloride Level 101, Carbon Dioxide Level 30, Calcium Level 8.2L, Aspartate Amino Transf (AST/SGOT) 24, Alanine Aminotransferase (ALT/SGPT) 44, Alkaline Phosphatase 127H, Total Bilirubin 0.6, Total Protein 7.2, Albumin 3.0L , C-Reactive Protein, Quantitative 7.64H, Albumin/Globulin Ratio 0.71L CBC/BMP Laboratory Tests 04/17/17 05:03 Red Blood Count 3.13 L, Mean Corpuscular Volume 93.6, Mean Corpuscular Hemoglobin 32.2, Mean Corpuscular Hemoglobin Concent 34.4, Red Cell Distribution Width 13.8, Calcium Level 8.2 L, Aspartate Amino Transf (AST/SGOT) 24, Alanine Aminotransferase (ALT/SGPT) 44, Alkaline Phosphatase 127 H, Total Bilirubin 0.6, Total Protein 7.2, Albumin 3.0 L Microbiology Microbiology 04/16/17 Blood Culture - Preliminary, Resulted No growth after 24 hours . All specim... 04/16/17 Blood Culture - Preliminary, Resulted No growth after 24 hours . All specim... 04/13/17 Blood Culture - Preliminary, Resulted No Growth after 72 hours. All specime... 04/13/17 Blood Culture - Preliminary, Resulted No Growth after 72 hours. All specime... 04/13/17 Respiratory Virus Panel (PCR) ([facility]) - Final, Complete 04/16/17 Urine Culture - Final, Complete DALIA CALLAHAN MD Apr 17, 2017 17:21
[2017-04-17 19:54] VITALS: BP 151/69
[2017-04-17] MEDS: PARoxetine 20 MG TAB PO SCH (21:14)
[2017-04-17] MEDS: COLCHICINE 0.6 MG TAB PO SCH (21:15)
[2017-04-17] MEDS: ATORVASTATIN 20 MG TAB PO SCH (21:15)
[2017-04-17] MEDS: ALLOPURINOL 100 MG TAB PO SCH (21:15)
--- NOTE | 2017-04-17 22:13 | IPN ---
DATE: 04/16/2017 Mr. Mckeon seems to be doing well, except for some low-grade fevers. He denies any dysuria, hematuria, or flank pain. No cough. His shortness of breath has markedly improved. No nausea, vomiting, or diarrhea. The patient does state that his back pain has worsened over the past years and he was scheduled for having some nerve blocks. He also had a resection of his bladder cancer three weeks ago on 03/26/2017 and is scheduled for Bacillus Calmette-Theodore (BCG) treatment in three weeks. PHYSICAL EXAMINATION: VITAL SIGNS: Temperature is 100.7, pulse 76, respirations 20, blood pressure 126/59, oxygen saturation 98% on room air. HEART: Normal S1, S2, with a systolic ejection murmur of 2-3 over 6 at the right upper sternal border. LUNGS: Clear. No wheezes, rales, or rhonchi. ABDOMEN: Morbidly obese, soft, nontender. EXTREMITIES: No edema. BACK: Mild lumbosacral tenderness. HEENT: Oropharynx is clear. LABORATORY DATA: Blood cultures on admission were negative, two sets from 04/13/2017 after 72 hours. Two sets were ordered this morning but these were done after the patient had received three days of IV antibiotics. Urine culture is pending. Urinalysis had only +1 leukocyte esterase, 3 white cells, 19 red cells. Echocardiogram done, read by Dr. Diaz, shows no evidence of vegetation but challenging technically due to the patient's body habitus, bioprosthetic mitral and tricuspid valve without vegetation, concentric LVH, dilated left atrium. IMPRESSION: 1. Fever of unknown origin with elevated erythrocyte sedimentation rate (ESR), C-reactive protein (CRP) in a patient with known aortic valve and mitral valve prosthesis and previous history of Escherichia (E) faecalis endocarditis. The patient was admitted with increasing shortness of breath which was suggestive of congestive heart failure but the patient had low-grade fever and elevated inflammation marker, worrisome for endocarditis. 2. Worsening low back pain and abdominal cramps. I would obtain a CT of the abdomen and pelvis looking also at the lumbar spine to make sure there is no evidence of infection or occult abscess. 3. Acute diastolic heart failure, back to baseline and feeling much better. PLAN: Transesophageal echocardiogram will be done tomorrow by Dr. Oneill. CT of the abdomen and pelvis was ordered and was done tonight which showed mild right lower lobe atelectasis/infiltrate, gallstones in the gallbladder, no other acute abnormalities. There is no hydroureteronephrosis, small bilateral inguinal hernias. There is diffuse lytic appearance of the sacrum which is unchanged compared to previous examination dated 2012. This needs to be further reviewed.
[2017-04-17 23:33] VITALS: BP 129/66
[2017-04-18] MEDS: ANEXSIA, NORCO 7.5MG/325MG TABLET(HYDROCODONE/APAP) PO PRN ×4 (02:53→23:24)
[2017-04-18 04:00] VITALS: BP 127/62
[2017-04-18 04:56] LABS: MEAN CORPUSCULAR HEMOGLOBIN 32.2 pg (27.0-33.0); MEAN CORPUSCULAR HGB CONC 34.7 g/dl (32.0-36.5); MEAN CORPUSCULAR VOLUME 92.7 fl (80.0-96.0); RED CELL DISTRIBUTION WIDTH 13.8 % (11.5-14.5); WHITE BLOOD COUNT 7.2 K/mm3 (4.0-10.0)
[2017-04-18] MEDS: FUROSEMIDE 100 MG/10 ML VIAL (J1940) IV SCH (07:47)
[2017-04-18] MEDS: LACTOBACILLUS ACIDOPHILUS CAP (BACID) PO SCH ×2 (07:47→21:18)
[2017-04-18] MEDS: VITAMIN D 1,000 INTERNATIONAL UNITS TABLET PO SCH (07:47)
[2017-04-18] MEDS: HEPARIN SOD (PORCINE) 5000 UNITS/ML VIAL SQ SCH ×2 (07:48→21:16)
[2017-04-18] MEDS: POTASSIUM CHLORIDE 10 MEQ SR TABLET PO SCH (07:48)
[2017-04-18] MEDS: MULTIVITAMINS/MINERALS THERAP 1 TAB PO SCH (07:48)
[2017-04-18] MEDS: ASCORBIC ACID 500 MG TAB PO SCH (07:48)
[2017-04-18] MEDS: FERROUS SULFATE 325MG TAB PO SCH (07:48)
[2017-04-18] MEDS: CARVedilol 6.25 MG TAB PO SCH ×2 (07:52→21:17)
[2017-04-18 08:03] VITALS: BP 112/64
[2017-04-18 12:24] VITALS: BP 105/56
--- NOTE | 2017-04-18 16:36 | IPNPDOC ---
Subjective Date Seen The patient was seen on 04/18/17. Subjective Chief Complaint/HPI The patient is a 71-year-old male admitted with a reason for visit of Endocarditis/Chf. Events since last encounter no acute events overnight. Patient febrile on a nightly basis, Denied cp/sob/ abd pain/n/v. Constitutional: Reports: Fever, Denies: Chills Eyes: Denies: Pain ENT: Denies: Head Aches Skin: Denies: Rash, Lesions Pulmonary: Denies: Dyspnea, Cough Cardiovascular: Denies: Chest Pain, Palpitations, Orthopnea Gastrointestinal: Denies: Nausea, Vomiting, Abdominal Pain, Diarrhea Objective Physical Examination General Exam: Positive: Alert, Cooperative, No Acute Distress Eye Exam: Positive: PERRLA, Conjunctiva & lids normal, EOMI Chest Exam: Positive: Clear to auscultation, Normal air movement, Diminished Heart Exam: Positive: Rate Normal, Normal S1, Normal S2, Murmurs Abdomen Exam: Positive: Normal bowel sounds, Soft Extremity Exam: Negative: Clubbing, Cyanosis, Edema Assessment /Plan Assessment 71 M h/o CHF, bladder cancer October 2015, hypertension, coronary artery disease, severe aortic regurgitation and aortic stenosis with double valve replacement, coronary artery bypass graft (CABG), diabetes, hypertension, hyperlipidemia, obesity, chronic pain with spinal stimulator, incidental lung nodule, adenoma, chronic anemia, Enterococcus infective endocarditis, recent urology procedure 2 weeks ago, presented with sob , Problems (1) Fever of unknown origin Problem Text: DDX inflamatory vs infectious, endocarditis vs rheum, vs malignancy vs atelectasis consulted ID repeat culture sent JOSE, CT abd pelvis was given merro and vanco, hold antibiotics for now esr, crp appreciated, elevated Rheumatologic workup and lyme workup ordered. incentive spirometry (2) Acute diastolic (congestive) heart failure Problem Text: lasix I and O daily weight respiration baseline tele enzymes and echo (3) Elevated erythrocyte sedimentation rate Problem Text: h/o of endocarditis c/u culture initally on cori and vacno, DC per ID Id consulted tte, JOSE (4) CAD (coronary artery disease) Problem Text: c/w current med tte, enzymes ekg tele (5) Gout Problem Text: c/w med (6) Depression Problem Text: c/w med (7) Bladder cancer Problem Text: outpatient f/u (8) HTN (hypertension) Problem Text: c/w med (9) Chronic back pain Status: Chronic Problem Text: c.w med (10) CKD (chronic kidney disease) Status: Chronic Problem Specific Plan: Repeat Labs Problem Text: stable, baseline monitor Plan/VTE VTE Prophylaxis Ordered?: Yes (heparin SQ) VTE Exclusion Mechanical Proph: Low Risk for VTE Disposition pending Jose, PT VS, I&O, 24H, Fishbone Vital Signs/I&O Vital Signs Date Time Temp Pulse Resp B/P (MAP) Pulse Ox O2 Delivery O2 Flow Rate FiO2 04/18/17 15:32 18 04/18/17 12:24 98.5 66 105/56 (72) 93 Room Air 04/17/17 04:39 2.0 I&O- Last 24 Hours up to 6 AM 04/18/17 06:00 Intake Total 1320 ml Output Total 2025 ml Balance -705 ml Laboratory Data 24H LABS Laboratory Tests 2 04/18/17 04:46: Erythrocyte Sedimentation Rate 109H, C-Reactive Protein, Quantitative 9.57H CBC/BMP Laboratory Tests 04/18/17 04:46 Red Blood Count 3.25 L, Mean Corpuscular Volume 92.7, Mean Corpuscular Hemoglobin 32.2, Mean Corpuscular Hemoglobin Concent 34.7, Red Cell Distribution Width 13.8 Microbiology Microbiology 04/16/17 Blood Culture - Preliminary, Resulted No Growth after 48 hours. All Specime... 04/16/17 Blood Culture - Preliminary, Resulted No Growth after 48 hours. All Specime... 04/13/17 Blood Culture - Preliminary, Resulted No Growth after 72 hours. All specime... 04/13/17 Blood Culture - Preliminary, Resulted No Growth after 72 hours. All specime... 04/13/17 Respiratory Virus Panel (PCR) ([facility]) - Final, Complete 04/16/17 Urine Culture - Final, Complete DALIA CALLAHAN MD Apr 18, 2017 16:36
[2017-04-18] MEDS ORDERED: MIDAZOLAM INJ 2 MG/2 ML VIAL (J2250) As Ordered ONE (17:09)
[2017-04-18] MEDS ORDERED: SEVOFLURANE INHAL SOLN 250 ML BTL As Ordered ONE (17:09)
[2017-04-18] MEDS ORDERED: fentaNYL 100 MCG/2 ML INJECTION (J3010) As Ordered ONE (17:09)
[2017-04-18] MEDS ORDERED: PROPOFOL 200 MG/20 ML VIAL As Ordered ONE (17:09)
[2017-04-18] MEDS ORDERED: LIDOCAINE 2% INJ 100 MG/5 ML SDV (FOR ANES.) As Ordered ONE (17:13)
[2017-04-18] MEDS ORDERED: ONDANSETRON 4MG/2ML VIAL (J2405) IV PRN (17:45)
[2017-04-18] MEDS ORDERED: LR 1,000 ML IV SCH (17:45)
[2017-04-18 18:15] VITALS: BP 110/64
--- NOTE | 2017-04-18 19:08 | T-ECHO ---
DATE OF PROCEDURE: 04/18/2017 REFERRING PHYSICIAN: Radha Nichole MD PREPROCEDURE DIAGNOSIS: Fever of unknown origin. POSTPROCEDURE DIAGNOSIS: Fever of unknown origin. FINDINGS: No vegetations. See detailed findings below. PROCEDURE PERFORMED: Transesophageal echocardiogram. SURGEON: Adama Oneill MD BILLING CONTROL CLERK: None. CONSCIOUS SEDATION: COMPLICATIONS: None. DESCRIPTION OF PROCEDURE: The patient received Cetacaine spray to the back of the pharynx. He received monitored anesthetic care by the [facility]. Esophageal intubation was accomplished with a Emmanuel phased array 2D transesophageal echocardiogram probe (multiplane). Rhythm was sinus with frequent premature ventricular contractions (PVCs). A bioprosthesis was well seated in the aortic position and the cuffs appeared normal. No regurgitation either valvular or perivalvular was observed. No vegetations on the aortic bioprosthesis. The bioprosthesis did not appear to be stenotic. A mitral bioprosthesis was well seated and no regurgitation was seen either valvular or perivalvular. The cuffs of the mitral bioprosthesis appear to have normal mobility and the valve did not appear to be stenotic. No mitral regurgitation. No vegetations on the mitral bioprosthesis. The tricuspid and pulmonic valves appeared normal and without vegetations. The left ventricle appeared normal in internal size and was normal in wall motion and wall thickening. Left ventricle (LV) systolic function was normal with left ventricular ejection fraction (LVEF) estimated at 65-70% by visual estimate. The right ventricle appeared normal in systolic function. No pericardial effusion. Only a small portion of the descending thoracic aorta was observed and that portion appeared normal. CONCLUSIONS: 1. No vegetations. 2. Structurally and functionally normal and well seated aortic valve bioprosthesis. 3. Structurally and functionally normal mitral valve bioprosthesis. 4. Normal left ventricle (LV) wall motion and systolic function.
--- NOTE | 2017-04-18 20:11 | IPN ---
DATE: 04/18/2017 SUBJECTIVE: Mr. Mckeon feels great. He is anxious to go home. He is scheduled for transesophageal echocardiogram this afternoon. He denies any chest pain, shortness of breath, nausea, vomiting, diarrhea or abdominal pain. He has chronic low back pain which is unchanged. He had another fever last night but no chills. He does not even know he had a fever. He has had no rashes. OBJECTIVE: Heart: Normal S1, S2 with a systolic ejection murmur best heard at the left upper sternal border 2/6. LUNGS: Clear. No wheezes, rales or rhonchi. ABDOMEN: Soft, obese, nontender. EXTREMITIES: No edema. LABORATORY DATA: White count is 7.2, hemoglobin 10.5, hematocrit 30.1, platelets 160. ESR 109. Sodium 137, potassium 3.9, chloride 101, bicarb 30, BUN 61, creatinine 2, glucose 128, calcium 8.2, bilirubin 0.6, AST 24, ALT 44, alkaline phosphatase 127. CRP was 9.57. Albumin three. MICROBIOLOGY: Blood cultures on 04/13 two sets were no growth; 04/16 are no growth. Urine culture was negative on 04/16. Respiratory panel negative. IMAGING: CT of the abdomen had some findings that are old but showed diffuse lytic appearance of the sacrum which is unchanged from 2012. IMPRESSION: 1. Shortness of breath treated for congestive heart failure, doing better. 2. Fever of unknown origin with a negative transesophageal echocardiogram. 3. Elevated sedimentation rate, C-reactive protein (CRP) and fever. The patient is off antibiotics. Cultures have remained negative. Findings of lytic lesions on the sacrum are old from 2012, but somewhat concerning. The patient may need to be ruled out for multiple myeloma. with SPEP and UPEP. PLAN Transesophageal echocardiogram results were negative and if patient is discharged home, please make sure he has a followup complete blood count (CBC), sed rate, CRP and blood cultures two sets drawn next week At this point I would not keep the patient in the hospital as he is asymptomatic and could be worked up as an outpatient. JESSY
[2017-04-18 20:23] VITALS: BP 134/63
[2017-04-18] MEDS: ATORVASTATIN 20 MG TAB PO SCH (21:16)
[2017-04-18] MEDS: PARoxetine 20 MG TAB PO SCH (21:16)
[2017-04-18] MEDS: ALLOPURINOL 100 MG TAB PO SCH (21:16)
[2017-04-18] MEDS: COLCHICINE 0.6 MG TAB PO SCH (21:17)
[2017-04-18 23:18] VITALS: BP 129/58
[2017-04-19 05:05] VITALS: BP 130/62
[2017-04-19 05:13] LABS: MEAN CORPUSCULAR HEMOGLOBIN 31.8 pg (27.0-33.0); MEAN CORPUSCULAR HGB CONC 33.9 g/dl (32.0-36.5); RED CELL DISTRIBUTION WIDTH 13.6 % (11.5-14.5); WHITE BLOOD COUNT 7.2 K/mm3 (4.0-10.0)
[2017-04-19 05:42] LABS: ANION GAP 8 MEQ/L (8-16); BLOOD UREA NITROGEN 49 MG/DL (7-18); CARBON DIOXIDE LEVEL 27 MEQ/L (21-32); CHLORIDE LEVEL 102 MEQ/L (98-107); COMPLEMENT C3 157 MG/DL (90-180); COMPLEMENT C4 45.7 MG/DL (10-40); CREATININE FOR GFR 1.86 MG/DL (0.70-1.30); GLOMERULAR FILTRATION RATE 38.2 (>42); GLUCOSE, FASTING 101 MG/DL (83-110); MAGNESIUM LEVEL 2.2 MG/DL (1.8-2.4); POTASSIUM SERUM 4.6 MEQ/L (3.5-5.1); SODIUM LEVEL 137 MEQ/L (136-145); TOTAL PROTEIN 6.7 GM/DL (6.4-8.2)
[2017-04-19] MEDS: ANEXSIA, NORCO 7.5MG/325MG TABLET(HYDROCODONE/APAP) PO PRN (05:53)
[2017-04-19] MEDS: MULTIVITAMINS/MINERALS THERAP 1 TAB PO SCH (07:32)
[2017-04-19] MEDS: HEPARIN SOD (PORCINE) 5000 UNITS/ML VIAL SQ SCH (07:32)
[2017-04-19 07:33] VITALS: BP 128/74
[2017-04-19] MEDS: LACTOBACILLUS ACIDOPHILUS CAP (BACID) PO SCH (07:33)
[2017-04-19] MEDS: ASCORBIC ACID 500 MG TAB PO SCH (07:33)
[2017-04-19] MEDS: CARVedilol 6.25 MG TAB PO SCH (07:33)
[2017-04-19] MEDS: POTASSIUM CHLORIDE 10 MEQ SR TABLET PO SCH (07:33)
[2017-04-19] MEDS: FERROUS SULFATE 325MG TAB PO SCH (07:34)
[2017-04-19] MEDS: VITAMIN D 1,000 INTERNATIONAL UNITS TABLET PO SCH (07:34)
[2017-04-19 08:00] VITALS: BP 134/62
[2017-04-19] MEDS ORDERED: TORSEMIDE 20 MG TAB PO SCH (09:00)
--- NOTE | 2017-04-20 02:02 | DSES ---
DATE OF ADMISSION: 04/14/2017 DATE OF DISCHARGE: 04/19/2017 INFECTIOUS DISEASE: Dr. Anne. PRIMARY CARE PROVIDER: Dr. Dill. UROLOGIST: Dr. Urrutia. CHARGE AUTHORIZER: Dr. Diaz. FINAL DIAGNOSES: 1. Fever of unknown origin. 2. Acute diastolic congestive heart failure. 3. Elevated erythrocyte sedimentation rate (ESR). 4. Coronary arterial disease. 5. Gout. 6. Depression. 7. Bladder cancer. 8. Hypertension. 9. Chronic back pain. 10. Chronic kidney disease (CKD). HISTORY OF PRESENT ILLNESS: This is a 71-year-old male patient with underlying medical history of CKD stage IV, sees Dr. Diaz for cardiology, congestive heart failure (CHF), history of endocarditis, bladder cancer status post recent urological procedure, with also aortic valve replacement, presented with worsening shortness of breath. No wheeze. Slight cough. Also, generalized weakness. HOSPITAL COURSE: Patient was admitted to the hospital for elevated ESR, C-reactive protein (CRP), as well as shortness of breath. Patient was diuresed with diuretics, with resolution of shortness of breath, and monitored on telemetry. Echocardiogram was done. Cultures were sent. Initially, started on broad-spectrum antibiotics. Cardiac enzymes were followed. Patient was also febrile during the hospital course, so infectious disease was consulted. Antibiotic was on hold given culture has been negative. Repeat culture was sent. Transesophageal echocardiogram ([facility]) was also done to rule out endocarditis, which was negative. Further workup for rheumatologic workup has been sent as well. Case discussed with infectious disease, Dr. Anne. As per Dr. Anne, it is okay from infectious disease perspective to send the patient home for further followup of blood tests for rheumatologic workup. Patient currently tolerating oral, asymptomatic. Denies any shortness of breath, chest pain, pressure or discomfort. Denies any nausea, vomiting. Tolerating oral. Ready for discharge for further care as outpatient. PHYSICAL EXAMINATION: VITAL SIGNS: Temperature 98, pulse 82, respirations 18, blood pressure 134/62, pulse oximetry 96% on room air. GENERAL: Patient alert and oriented times three in no acute distress. Obese. HEENT: Normocephalic, atraumatic. PULMONARY: Bilaterally clear to auscultation. Distant breath sounds. CARDIAC: Regular rate and rhythm. Normal S1, S2. Telemetry shows multiple bigeminy and PVCs. ABDOMEN: Soft, nontender. Positive bowel sounds. EXTREMITIES: No edema bilateral lower extremities. LABORATORY: WBC 7.2, hemoglobin and hematocrit 10.4/30.8, platelets 177. Chemistry: Sodium 137, potassium 4.6, chloride 102, bicarbonate 27, BUN 49, creatinine 1.86. Baseline creatinine 2. DISCHARGE MEDICATIONS: - allopurinol 100 mg by mouth daily every evening - vitamin C 500 mg by mouth daily - Lipitor 20 mg by mouth nightly - Coreg 6.25 mg by mouth twice a day - vitamin D 4000 units by mouth daily - Plavix 75 mg by mouth daily - colchicine 0.6 mg by mouth nightly - coenzyme Q10 100 mg by mouth twice a day - iron 325 mg by mouth daily - lactobacilli by mouth twice a day - multivitamin one tablet by mouth daily - nitroglycerin 0.4 mg sublingual as needed - oxycodone/acetaminophen 10/325 mg by mouth every 6 hours as needed - Paxil 20 mg by mouth every evening - potassium chloride 20 mEq by mouth daily - torsemide 40 mg by mouth daily DISCHARGE INSTRUCTIONS: Patient is instructed to followup with primary care provider in 7 days, student career development specialist in 7 days, and urologist appointment on Friday. Please also note there is a CT scan of the abdomen of nonspecific sacrum lesions. Please followup rheumatologic workup as outpatient. Daily weights. Take temperatures. Return to the hospital if symptoms worsen.
[2017-04-21 11:41] LABS: ALBUMIN 3.19 GM/DL (3.29-5.55); ALBUMIN % 47.6 % (55.8-66.1); GAMMA GLOBULIN % 13.2 % (11.1-18.8)
[2017-04-23 00:06] LABS: COMPLEMENT TOTAL (CH50) 61 U/mL (42-60); Lyme Disease IgG/IgM Antibodie <0.91 ISR (0.00-0.90); Lyme Disease IgM Ab Quantitati <0.80 index (0.00-0.79); MYELOPEROXIDASE ANTIBODY <9.0 U/mL (0.0-9.0)
== END 2017-04-19 10:24 | disposition home or self-care (01) | DRG 291 ==
LOC: M ED 20:50 → M ED INP 04-14 00:37 → M PCU 04-14 01:50
PROVIDERS: ADMIT Internal Medicine; ATTEND Hospitalist
PROC: B246ZZ4 Ultrasonography of Right and Left Heart, Transesophageal (ICD-10-PCS; principal; 2017-04-18 14:20)
DX: I13.0 Hypertensive heart and chronic kidney disease with heart failure and stage 1 through stage 4 chronic kidney disease, or unspecified chronic kidney disease (principal); I50.33 Acute on chronic diastolic (congestive) heart failure; J84.9 Interstitial pulmonary disease, unspecified; N18.4 Chronic kidney disease, stage 4 (severe); Z68.41 Body mass index [BMI] 40.0-44.9, adult; F41.9 Anxiety disorder, unspecified; I25.10 Atherosclerotic heart disease of native coronary artery without angina pectoris; C67.9 Malignant neoplasm of bladder, unspecified; R50.9 Fever, unspecified; E11.9 Type 2 diabetes mellitus without complications; E78.5 Hyperlipidemia, unspecified; E66.01 Morbid (severe) obesity due to excess calories; D63.8 Anemia in other chronic diseases classified elsewhere; R91.1 Solitary pulmonary nodule; M10.9 Gout, unspecified; F32.9 Major depressive disorder, single episode, unspecified; Z95.2 Presence of prosthetic heart valve; Z88.6 Allergy status to analgesic agent; Z88.0 Allergy status to penicillin; Z88.1 Allergy status to other antibiotic agents; Z95.1 Presence of aortocoronary bypass graft; Z79.02 Long term (current) use of antithrombotics/antiplatelets; Z79.891 Long term (current) use of opiate analgesic; Z79.899 Other long term (current) drug therapy

== ENCOUNTER → 2017-04-21 | Outpatient (REF) | payer MEDICARE, OTHER ==
[~2017-04-21] MED LIST changes: +ALB2.5NEB NEB; +ASCO500T PO; +BACITAB PO; -BACITAB3 PO; +CIPR-249 PO; -CIPR500T89 PO; +CLAR500T PO; +CLOP75TA2 PO; +COLC1TAB14 PO; -COLC1TAB5 PO; +D200CAP3 PO; +HYDR-3363 PO; -HYDR25T PO; +LORA10TA2 PO; +MORP15TA2 PO; +NITR0.4S14 SL; -PERC10TA17 PO; +PERC10TA26 PO; +PERC5TAB12 PO; -PERC5TAB6 PO; +PLAV1TAB2 PO; -PLAV75TA38 PO; +POTA1TAB14 PO; +PROAAER10 INH; +SENN1TAB10 PO; +SPIR25TA2 PO; -VITA-130 PO; +VITA500T PO
== END ==
LOC: M LABDRAW1 12:58
PROVIDERS: ATTEND Urology
DX: C67.2 Malignant neoplasm of lateral wall of bladder (principal); R39.15 Urgency of urination
CPT/HCPCS: 81001; 87086; G0463

== ENCOUNTER → 2017-04-22 | Outpatient (REF) | payer MEDICARE, OTHER ==
[~2017-04-22] MED LIST changes: -ALB2.5NEB NEB; -BACITAB PO; +BACITAB3 PO; -CIPR-249 PO; +CIPR500T89 PO; -CLAR500T PO; -COLC1TAB14 PO; +COLC1TAB5 PO; -HYDR-3363 PO; +HYDR25T PO; -LORA10TA2 PO; -MORP15TA2 PO; +PERC10TA17 PO; -PERC10TA26 PO; -PERC5TAB12 PO; +PERC5TAB6 PO; -PLAV1TAB2 PO; +PLAV75TA38 PO; -PROAAER10 INH; -SENN1TAB10 PO; -SPIR25TA2 PO; +VITA-130 PO; -VITA500T PO
[2017-04-22 13:46] LABS: TOTAL PROTEIN 7.2 GM/DL (6.4-8.2)
[2017-04-23 13:21] LABS: ALBUMIN % 46.5 % (55.8-66.1)
[2017-04-23 13:22] LABS: ALBUMIN 3.35 GM/DL (3.29-5.55); GAMMA GLOBULIN % 13.4 % (11.1-18.8)
== END ==
LOC: M LAB REF 11:48
PROVIDERS: ATTEND Internal Medicine
DX: R50.9 Fever, unspecified (principal); M53.88 Other specified dorsopathies, sacral and sacrococcygeal region; R79.82 Elevated C-reactive protein (CRP)

== ENCOUNTER → 2017-04-30 | Outpatient (CLI) | payer MEDICARE, OTHER ==
[~2017-04-30] MED LIST changes: +ALB2.5NEB NEB; +BACITAB PO; -BACITAB3 PO; +CIPR-249 PO; -CIPR500T89 PO; +CLAR500T PO; +COLC1TAB14 PO; -COLC1TAB5 PO; +HYDR-3363 PO; -HYDR25T PO; +LORA10TA2 PO; +MORP15TA2 PO; -PERC10TA17 PO; +PERC10TA26 PO; +PERC5TAB12 PO; -PERC5TAB6 PO; +PLAV1TAB2 PO; -PLAV75TA38 PO; +PROAAER10 INH; +SENN1TAB10 PO; +SPIR25TA2 PO; -VITA-130 PO; +VITA500T PO
[2017-04-30 19:21] LABS: ALBUMIN 3.3 GM/DL (3.2-5.2); ALBUMIN/GLOBULIN RATIO 0.85 (1.00-1.93); BILIRUBIN,TOTAL 0.4 MG/DL (0.2-1.0); CREATININE FOR GFR 2.29 MG/DL (0.70-1.30); GLOMERULAR FILTRATION RATE 30.1 (>42); POTASSIUM SERUM 4.6 MEQ/L (3.5-5.1); TOTAL PROTEIN 7.2 GM/DL (6.4-8.2)
[2017-04-30 19:38] LABS: MEAN CORPUSCULAR HEMOGLOBIN 31.8 pg (27.0-33.0); MEAN CORPUSCULAR HGB CONC 33.9 g/dl (32.0-36.5); MEAN CORPUSCULAR VOLUME 93.7 fl (80.0-96.0); RED CELL DISTRIBUTION WIDTH 13.6 % (11.5-14.5)
== END ==
LOC: M SMT 14:00
PROVIDERS: ATTEND Urology
DX: C67.2 Malignant neoplasm of lateral wall of bladder (principal)

== ENCOUNTER → 2017-05-26 | Outpatient (REF) | payer MEDICARE, OTHER | LOC: M LAB REF 17:26 | PROVIDERS: ATTEND Internal Medicine | DX: E83.51 Hypocalcemia (principal) ==

== ENCOUNTER → 2017-06-23 | Outpatient (REF) | payer MEDICARE, OTHER | LOC: M SMT 11:42 | PROVIDERS: ATTEND Urology | DX: R82.90 Unspecified abnormal findings in urine (principal); C67.9 Malignant neoplasm of bladder, unspecified ==

== ENCOUNTER → 2017-07-21 | Outpatient (REF) | payer MEDICARE, OTHER | LOC: M LAB REF 16:48 | PROVIDERS: ATTEND Internal Medicine Nephrology | DX: I33.0 Acute and subacute infective endocarditis (principal) ==

== ENCOUNTER 2017-07-30 13:52 | Inpatient (IN) | payer MEDICARE, OTHER ==
[~2017-07-30] VITALS: Ht 167.6 cm; Wt 108.5 kg
[~2017-07-30 13:52] MED LIST changes: -ALB2.5NEB NEB; -CLAR500T PO; -LORA10TA2 PO; -MORP15TA2 PO; -PROAAER10 INH; -SENN1TAB10 PO; -SPIR25TA2 PO
[2017-07-30] MEDS ORDERED: MORP15TA2 PO (14:17)
[2017-07-30] MEDS ORDERED: CINA30TA PO (14:17)
[2017-07-30] MEDS ORDERED: SPIR25TA2 PO (14:17)
[2017-07-30] MEDS ORDERED: PROAAER10 INH (14:19)
[2017-07-30] MEDS ORDERED: CLAR500T PO (14:19)
[2017-07-30] MEDS ORDERED: ALPR0.25 PO (14:19)
[2017-07-30 15:12] LABS: MEAN CORPUSCULAR HEMOGLOBIN 32.5 pg (27.0-33.0); MEAN CORPUSCULAR HGB CONC 33.5 g/dl (32.0-36.5); MEAN CORPUSCULAR VOLUME 96.9 fl (80.0-96.0); RED CELL DISTRIBUTION WIDTH 14.6 % (11.5-14.5)
[2017-07-30 15:13] LABS: BASO % 0.1 % (0.0-1.0); EOS # 0.4 10^3/uL (0.0-0.50); EOS % 4.1 % (0.0-3.0); IMMATURE GRANULOCYTE % 1.1 % (0-0); LYMPH # 1.7 10^3/uL (1.5-4.5); LYMPH % 17.3 % (24.0-44.0); MONO # 0.9 10^3/uL (0.0-0.8); MONO % 9.1 % (0.0-5.0); NEUTROPHILS # 6.8 10^3/uL (1.8-7.7); NEUTROPHILS % 68.3 % (36.0-66.0); PLATELET COUNT, AUTOMATED 199 10^3/uL (150-450)
[2017-07-30 15:15] LABS: ADD MORPHOLOGY? NO
[2017-07-30] MEDS ORDERED: IPRATROPIUM 0.5MG/ALBUTEROL 2.5MG INH SOL UD 3ML (DUONEB)(J7620) NEB ONE ×2 (15:15→17:30)
[2017-07-30 15:40] LABS: ANION GAP 7 MEQ/L (8-16); BLOOD UREA NITROGEN 63 MG/DL (7-18); CALCIUM LEVEL 7.5 MG/DL (8.8-10.2); CARBON DIOXIDE LEVEL 32 MEQ/L (21-32); CHLORIDE LEVEL 97 MEQ/L (98-107); CREATININE FOR GFR 2.93 MG/DL (0.70-1.30); GLOMERULAR FILTRATION RATE 22.6 (>42); GLUCOSE, FASTING 118 MG/DL (83-110); SODIUM LEVEL 136 MEQ/L (136-145)
[2017-07-30 15:41] LABS: POTASSIUM SERUM 5.2 MEQ/L (3.5-5.1)
--- NOTE | 2017-07-30 15:41 | REP ---
PA and lateral chest: Comparison is 04/15/2017. There are no focal infiltrates. No pleural effusions. Mild interstitial coarsening is again identified, unchanged. Cardiac size is mildly enlarged, unchanged. Sternotomy wires are again identified. Spinal stimulator is again identified. Cardiac valve prosthesis is again identified. Impression: There is no interval change. Cardiomegaly and mild chronic interstitial coarsening are again identified. There are sternotomy wires and spinal stimulator, unchanged. Signed by Toni Ramirez MD 07/30/2017 03:32 P
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
[2017-07-30] MEDS ORDERED: LORA10TA2 PO (20:09)
[2017-07-30] MEDS ORDERED: HYDR-3363 PO (20:09)
[2017-07-30] MEDS ORDERED: SENN1TAB10 PO (20:09)
[2017-07-30] MEDS ORDERED: PRED20TA PO (20:09)
--- NOTE | 2017-07-30 20:20 | REPUSA ---
CLINICAL HISTORY: SANDRA TECHNIQUE: Realtime sonographic images were obtained in multiple projections. COMMENTS: Both kidneys are echogenic compatible with medical renal disease. The right kidney measures 11.3 cm and the left kidney measures 11.5 cm. Both kidneys are free of hydronephrosis. There is no evidence of solid or cystic mass. There is no perinephric fluid. There is no renal calculus. IMPRESSION: Both kidneys are echogenic compatible with medical renal disease. Thank you for your kind referral of this patient.
[2017-07-30] MEDS ORDERED: NITROGLYCERIN 0.4 MG SUBL TABLET SL PRN (21:30)
[2017-07-30] MEDS ORDERED: ALBUTEROL 90 MCG/ACT 8GM HFA INHALER INH PRN (21:30)
[2017-07-30] MEDS ORDERED: hydrOXYzine 25 MG TAB PO PRN (21:30)
[2017-07-30] MEDS ORDERED: ALPRAZolam 0.25 MG TAB PO PRN (21:30)
[2017-07-30] MEDS ORDERED: LORATADINE 10 MG TAB PO PRN (21:30)
[2017-07-30] MEDS: ATORVASTATIN 20 MG TAB PO SCH (22:39)
[2017-07-30] MEDS: CARVedilol 6.25 MG TAB PO SCH (22:39)
[2017-07-30] MEDS: PARoxetine 20 MG TAB PO SCH (22:39)
[2017-07-30] MEDS: HEPARIN SOD (PORCINE) 5000 UNITS/ML VIAL SC SCH (22:40)
[2017-07-30] MEDS: ALLOPURINOL 100 MG TAB PO SCH (22:58)
[2017-07-30] MEDS: SENNA 8.6 MG TAB (SENOKOT) PO SCH (22:58)
[2017-07-30] MEDS: MORPHINE 30 MG TAB **MSIR PO PRN (22:59)
[2017-07-30 23:11] VITALS: BP 168/86
[2017-07-30 23:55] VITALS: BP 123/56
[2017-07-31 03:07] LABS: MEAN CORPUSCULAR HEMOGLOBIN 31.8 pg (27.0-33.0); MEAN CORPUSCULAR VOLUME 99.4 fl (80.0-96.0); RED CELL DISTRIBUTION WIDTH 14.6 % (11.5-14.5); WHITE BLOOD COUNT 8.7 10^3/uL (4.0-10.0)
[2017-07-31 03:31] LABS: ALBUMIN 3.7 GM/DL (3.2-5.2); CALCIUM LEVEL 7.7 MG/DL (8.8-10.2); CREATININE FOR GFR 3.02 MG/DL (0.70-1.30); GLOMERULAR FILTRATION RATE 21.8 (>42); PHOSPHORUS LEVEL 6.3 MG/DL (2.5-4.9); POTASSIUM SERUM 4.7 MEQ/L (3.5-5.1)
[2017-07-31 04:08] VITALS: BP 141/74
[2017-07-31] MEDS: HEPARIN SOD (PORCINE) 5000 UNITS/ML VIAL SC SCH ×3 (05:39→21:32)
--- NOTE | 2017-07-31 07:56 | ECGEPIP ---
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
[2017-07-31 08:00] VITALS: BP 136/77
[2017-07-31] MEDS: MULTIVITAMINS/MINERALS THERAP 1 TAB PO SCH (08:54)
[2017-07-31] MEDS: CLOPIDOGREL 75 MG TAB PO SCH (08:55)
[2017-07-31] MEDS: ASCORBIC ACID 500 MG TAB PO SCH (08:55)
[2017-07-31] MEDS: VITAMIN D 1,000 INTERNATIONAL UNITS TABLET PO SCH (08:55)
[2017-07-31] MEDS: CO-ENZYME Q10 50 MG CAP PO SCH ×2 (08:56→20:52)
[2017-07-31] MEDS: LACTOBACILLUS ACIDOPHILUS CAP (BACID) PO SCH (08:56)
[2017-07-31] MEDS ORDERED: CLARITHROMYCIN 250 MG TAB PO SCH (09:00)
[2017-07-31] MEDS: CARVedilol 6.25 MG TAB PO SCH (09:05)
[2017-07-31] MEDS: FUROSEMIDE 100 MG/10 ML VIAL (J1940) IV SCH ×2 (09:06→17:47)
[2017-07-31] MEDS: MORPHINE 30 MG TAB **MSIR PO PRN ×2 (09:39→20:54)
--- NOTE | 2017-07-31 11:01 | IPNPDOC ---
Date Seen The patient was seen on 07/31/17. Progress Note SUBJECTIVE: He reports feeling significantly improved after duo nebs, however he did return back to wheezing and feeling SOB shortly thereafter. Denies CP, palpitations, still having orthopnea, and the swelling in his his legs has not improved. OBJECTIVE PHYSICAL EXAMINATION: VITAL SIGNS: Please see below. GENERAL: sitting up in bed, eating, NAD, pleasant HEENT: normocephalic, atraumatic CARDIOVASCULAR: 2-3/6 diastolic murmur, loudest over pulmonic area, regular rate RESPIRATORY: minimal wheezing noted, slightly diminished breath sounds at the bases with fine crackles. ABDOMINAL: soft, non tender, bowel sounds present EXTREMITIES: pitting edema 1-2+ b/l LE NEUROLOGICAL: A&Ox3 LABORATORY DATA: Please see below. MICROBIOLOGY: Please see below. IMAGING: US Renal: Both kidneys are echogenic compatible with medical renal disease. PROBLEMS: 1. Acute on chronic renal failure. It appears that he has been having some slowly worsening renal failure, perhaps ongoing for a few weeks now. Creatinine slightly more elevated today. Renal US without any acute changes or evidence of obstruction. Urine studies are pending to further investigate etiology. Nephrotoxic drugs initially held, pending improvement of renal status and nephro recs. However, patient appears slightly fluid overloaded with mild LE edema and some cephalization on CXR, so will start patient on Lasix IV. Nephrology has been consulted as they follow the patient closely as OP, and will be continuing care after d/c, their input is appreciated. 2. Diastolic congestive heart failure-patient started on IV Furosemide and will monitor I/Os. 3. Slowly progressive shortness of breath, wheeze, productive cough- patient with negative influenza swab.Plan for sputum culture. Patient completed course of Clarithromycin, today is day 7, will discontinue. Will continue patient on O2 NC for right now and wean off as tolerated. Will also continue duo nebs prn as patient reports this has helped relieve his sxs the most. 4. Coronary artery disease status post CABG 4- Patient with initial negative troponin, repeat trops at 0.04 and 0.03. Repeat echo is pending. 5. History of endocarditis with replacement of aortic and mitral valve with bioprosthetic Valve approximately 1 year ago. Endocarditis is less likely given the fact that he has not had fever or other constitutional symptoms. BC's are pending. 6. History of bladder cancer- patient's US without evidence of obstruction. 7. Diabetes mellitus type 2- fasting BG 157 this AM. Continue with Consistent Carb diet, and will start with SSI AC/HS while inpatient. 8. Hyperlipidemia. Continue statin 9. Obesity. Complicating care 10. Chronic back pain. Continue with home regimen of pain medications, morphine sulfate. 11. Anemia of chronic disease. No treatment indicated at this time, continue to monitor. 12. DVT prophylaxis. Given his worsening renal function this will be achieved with heparin. VS, I&O, 24H, Fishbone Vital Signs/I&O Vital Signs Date Time Temp Pulse Resp B/P (MAP) Pulse Ox O2 Delivery O2 Flow Rate FiO2 07/31/17 09:05 85 132/63 07/31/17 08:00 97.2 18 98 Nasal Cannula 2.0 I&O- Last 24 Hours up to 6 AM 08/01/17 06:00 Intake Total 480 ml Output Total 0 ml Balance 480 ml Laboratory Data 24H LABS Laboratory Tests 2 07/30/17 15:02: Immature Granulocyte % (Auto) 1.1H, White Blood Count 10.0, Red Blood Count 3.23L, Hemoglobin 10.5L, Hematocrit 31.3L, Mean Corpuscular Volume 96.9H, Mean Corpuscular Hemoglobin 32.5, Mean Corpuscular Hemoglobin Concent 33.5, Red Cell Distribution Width 14.6H, Platelet Count 199, Neutrophils (%) (Auto) 68.3H, Lymphocytes (%) (Auto) 17.3L, Monocytes (%) (Auto) 9.1H, Eosinophils (%) (Auto) 4.1H, Basophils (%) (Auto) 0.1, Neutrophils # (Auto) 6.8, Lymphocytes # (Auto) 1.7, Monocytes # (Auto) 0.9H, Eosinophils # (Auto) 0.4, Basophils # (Auto) 0.0, Immature Granulocyte # (Auto) 0.1H, Nucleated Red Blood Cells % (auto) 0.0, Anion Gap 7L, Glomerular Filtration Rate 22.6L, Blood Urea Nitrogen 63H, Creatinine 2.93H, Sodium Level 136, Potassium Level 5.2H, Chloride Level 97L, Carbon Dioxide Level 32, Calcium Level 7.5L, Total Creatine Kinase 174, Creatine Kinase MB 2.6, Creatine Kinase MB Relative Index 1.49, Troponin I < 0.02, HA-Hsh-Y-Type Natriuretic Peptide 2086H 07/30/17 20:17: Total Creatine Kinase 164, Creatine Kinase MB 2.6, Creatine Kinase MB Relative Index 1.58, Troponin I 0.04# 07/31/17 02:44: Anion Gap 8, Glomerular Filtration Rate 21.8L, Blood Urea Nitrogen 71H, Creatinine 3.02H, Sodium Level 138, Potassium Level 4.7, Chloride Level 97L, Carbon Dioxide Level 33H, Calcium Level 7.7L, Total Creatine Kinase 172, Creatine Kinase MB 2.5, Creatine Kinase MB Relative Index 1.45, Troponin I 0.03# , Phosphorus Level 6.3H, Albumin 3.7 CBC/BMP Laboratory Tests 07/30/17 15:02 Red Blood Count 3.23 L, Mean Corpuscular Volume 96.9 H, Mean Corpuscular Hemoglobin 32.5, Mean Corpuscular Hemoglobin Concent 33.5, Red Cell Distribution Width 14.6 H, Neutrophils (%) (Auto) 68.3 H, Lymphocytes (%) (Auto ) 17.3 L, Monocytes (%) (Auto) 9.1 H, Eosinophils (%) (Auto) 4.1 H, Basophils (% ) (Auto) 0.1, Neutrophils # (Auto) 6.8, Lymphocytes # (Auto) 1.7, Monocytes # ( Auto) 0.9 H, Eosinophils # (Auto) 0.4, Basophils # (Auto) 0.0, Calcium Level 7.5 L, Total Creatine Kinase 174 07/31/17 02:44 Red Blood Count 3.21 L, Mean Corpuscular Volume 99.4 H, Mean Corpuscular Hemoglobin 31.8, Mean Corpuscular Hemoglobin Concent 32.0, Red Cell Distribution Width 14.6 H, Anion Gap 8 Microbiology Microbiology 07/30/17 Blood Culture, Received Pending 07/30/17 Blood Culture, Received Pending 07/30/17 Influenza Virus Type A Antigen - Final, Complete 07/30/17 Influenza Virus Type B Antigen - Final, Complete AUSTIN MADISON DO Jul 31, 2017 09:55
[2017-07-31] MEDS ORDERED: GLUCOSE 4 GM CHEW TABLET PO PRN (11:15)
[2017-07-31] MEDS ORDERED: DEXTROSE 50% 50 ML SYRINGE IV PRN (11:15)
[2017-07-31] MEDS ORDERED: GLUCAGON FOR INJ 1 MG VIAL (J1610) SC PRN (11:15)
[2017-07-31 12:00] VITALS: BP 109/69
[2017-07-31] MEDS ORDERED: HumaLOG INSULIN (NovoLOG) PER UNIT SC SCH ×2 (12:00→21:00)
[2017-07-31] MEDS: IPRATROPIUM 0.5MG/ALBUTEROL 2.5MG INH SOL UD 3ML (DUONEB)(J7620) NEB PRN ×2 (12:13→18:07)
[2017-07-31] MEDS: oxyCODONE 10 MG CR TAB PO SCH ×2 (13:15→20:53)
[2017-07-31 14:00] VITALS: BP 116/56
[2017-07-31 16:00] VITALS: BP 125/55
[2017-07-31] MEDS ORDERED: SODIUM CHLORIDE NASAL 0.65% SPRAY BTL (OCEAN) PRN (16:00)
[2017-07-31] MEDS ORDERED: CINACALCET 30 MG TAB (SENSIPAR) PO SCH (18:00)
[2017-07-31 20:00] VITALS: BP 122/67
[2017-07-31] MEDS: CARVedilol 3.125 MG TAB PO SCH (20:53)
[2017-07-31] MEDS: ALLOPURINOL 100 MG TAB PO SCH (20:53)
[2017-07-31] MEDS: PARoxetine 20 MG TAB PO SCH (20:53)
[2017-07-31] MEDS: ATORVASTATIN 20 MG TAB PO SCH (20:54)
[2017-07-31] MEDS: SENNA 8.6 MG TAB (SENOKOT) PO SCH (20:54)
[2017-08-01] VITALS (10 sets, daily range): BP systolic 123–176; BP diastolic 62–86; O2SAT 89–95
--- NOTE | 2017-08-01 03:09 | CR ---
DATE OF CONSULTATION: 07/31/2017 REQUESTING PROVIDER: Mark Garner MD. REASON FOR CONSULTATION: Acute on chronic renal failure, volume overload. CHIEF COMPLAINT: Increased lower extremity edema with dyspnea on exertion and reduced exercise tolerance. HISTORY OF PRESENT ILLNESS: Mr. 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 Also history of type 2 diabetes and history of bladder cancer status post multiple resections and currently receiving BCG treatment. The patient and his are seen in the emergency room and they both provide history. The patient is chronically dyspneic on exertion and does not unduly exert himself; however, over the past 2 weeks he has noticed that his shortness of breath has worsened beyond his normal baseline. He notes concomitant upper respiratory infection (URI) symptoms with wheezing and a dry cough with occasional clear to yellow sputum in the monorail hooker. He saw his primary care provider who started him one week ago on clarithromycin. The patient denies any change in his symptoms. Over the past 1-2 weeks, he has also noticed increased lower extremity edema. He called into the nephrology office and was instructed to double up on his torsemide dose. He doubled up for 1 day, but his shortness of breath continued unabated and in the morning he had trouble showering due to dyspnea and so he decided to come to the emergency room. He denies any fevers or chills at home. Denies any palpitations. He does not fluid restrict. He did travel recently to [place], but denies any sick contacts. ALLERGIES: AMPICILLIN, ASPIRIN, CEFTRIAXONE, PENICILLIN. PAST MEDICAL HISTORY: 1. CKD stage III, baseline creatinine in the low 2s. 2. History of partial nephrectomy for reportedly benign mass. 3. Diastolic congestive heart failure. 4. Coronary artery disease status post CABG times four. 5. History of endocarditis status post bioprosthetic mitral and aortic valve replacements. 6. Bladder cancer status post tumor resections and currently on BCG treatment. 7. Type 2 diabetes. 8. Hypertension. 9. Dyslipidemia. 10. Obesity. PAST SURGICAL HISTORY: 1. CABG in 2004. 2. Multiple cystoscopies for transurethral resection of bladder tumor in spring. 3. Partial nephrectomy several years prior for apparently benign mass. 4. Dorsal column stimulator. 5. Mitral and aortic valve replacement in May 2016. SOCIAL HISTORY: Ex-smoker, no drugs, no alcohol. Lives at home with his , retired. FAMILY HISTORY: Diabetes, no reported renal failure. REVIEW OF SYSTEMS: Positive for fluid retention, lower extremity edema, wheeze, dry cough, dyspnea on exertion, orthopnea. Remainder of review of systems is negative. PHYSICAL EXAMINATION: Temperature 97.8, pulse 85, respiratory rate 20, blood pressure 116/56, saturating 93-96% on room air. Weight today 109.9 kg. The patient is seen in the emergency room. His is present at the bedside. He is awake, alert, oriented times three. He is sitting up with legs dangling off the edge of the bed. He is in no distress. HEENT: Mucous membranes are moist. Extraocular muscles are intact. Neck veins are not prominent. RESPIRATORY: Prolonged expiration, which is coarse with an end-expiratory wheeze. No crackles. CARDIOVASCULAR: S1, S2, 2+ radial pulse, 2+ pitting edema present in the lower extremities to just below the knee. No dependent edema. ABDOMEN: Soft, nontender, nondistended. bowel sounds present NEUROLOGIC: No focal deficits. PSYCHIATRIC: Appropriate mood and affect. MICROBIOLOGY: Blood cultures drawn 07/30 with no growth for 24 hours. Rapid flu negative. Respiratory virus panel PCR negative. IMAGING: Renal ultrasound 07/30 echogenic kidneys, no hydronephrosis. Chest x-ray 07/30 mild chronic interstitial coarsening and cardiomegaly unchanged from prior. INPATIENT MEDICATIONS: - DuoNebs - allopurinol 100 mg by mouth every evening - atorvastatin 20 mg by mouth every evening - carvedilol 3.125 mg by mouth twice a day - Sensipar 30 mg by mouth Friday and - Plavix 75 mg daily - Lasix 80 mg intravenously (IV) twice a day - insulin - Paxil 20 mg by mouth every evening - vitamin D 4000 units by mouth daily ASSESSMENT AND PLAN: 1. Acute kidney injury on chronic kidney disease (CKD) stage III. Baseline creatinine is in the low 2s. Currently with volume overload with worsening dyspnea on exertion and increased lower extremity edema. The patient's home diuretic regimen is torsemide 40 mg in the morning and aldactone 25 mg at night. He did double his torsemide dose for 1 day prior to coming into the emergency room. The patient is now started on intravenous (IV) Lasix 80 twice a day. I have reduced his carvedilol dose while he is being actively diuresed. I expect to transition him back to oral diuretics within 24 hours and depending on his serum potassium and bicarbonate, we will add either amiloride or aldactone to his diuretic. Renal ultrasound did not show any acute findings. The patient is instructed to fluid restrict. He has not previously been doing so. Patient' s urine studies are noted; however, they are of little utility given that he is on diuretics. 2. Worsening dyspnea on exertion with wheeze and cough. Patient does have a significant smoking history. He has symptomatically improved with DuoNebs and is continued on the same. His chest x-ray did not show significant volume overload. His respiratory viral panel and rapid flu were both negative. He likely has a chronic obstructive pulmonary disease (COPD) exacerbation versus viral upper respiratory infection (URI) element that is contributing to his increased shortness of breath and dyspnea on exertion. 3. Diastolic congestive heart failure. Mild decompensation at present with new lower extremity edema. Currently on IV Lasix and likely will be able to transition back to oral diuretics within 24 hours. Reduce carvedilol dose while he is being actively diuresed. Not a candidate for angiotensin-converting enzyme (TRAVIS) or ARB given advanced chronic kidney disease. Counseled on fluid restriction. Thank you for involving us in the care of this patient. We will follow the patient along with you. JESSY
[2017-08-01] MEDS: HEPARIN SOD (PORCINE) 5000 UNITS/ML VIAL SC SCH ×3 (05:33→21:01)
[2017-08-01] MEDS: MORPHINE 30 MG TAB **MSIR PO PRN ×2 (05:33→21:08)
[2017-08-01 06:09] LABS: MEAN CORPUSCULAR HEMOGLOBIN 31.9 pg (27.0-33.0); MEAN CORPUSCULAR HGB CONC 32.2 g/dl (32.0-36.5); MEAN CORPUSCULAR VOLUME 99.1 fl (80.0-96.0); RED CELL DISTRIBUTION WIDTH 14.4 % (11.5-14.5); WHITE BLOOD COUNT 9.6 10^3/uL (4.0-10.0)
[2017-08-01] MEDS ORDERED: guaiFENesin ER 600 MG TAB PO ONE (06:30)
[2017-08-01 06:43] LABS: ALBUMIN 4.1 GM/DL (3.2-5.2); CALCIUM LEVEL 7.6 MG/DL (8.8-10.2); CREATININE FOR GFR 2.93 MG/DL (0.70-1.30); GLOMERULAR FILTRATION RATE 22.6 (>42); MAGNESIUM LEVEL 1.9 MG/DL (1.8-2.4); PHOSPHORUS LEVEL 5.7 MG/DL (2.5-4.9); POTASSIUM SERUM 4.6 MEQ/L (3.5-5.1)
[2017-08-01] MEDS ORDERED: ALBUTEROL SULFATE 2.5 MG/0.5 ML INH NEB SOLN NEB PRN (07:45)
[2017-08-01] MEDS ORDERED: INFLUENZA VIRUS VACCINE HIGH DOSE 0.5 ML SYRINGE (90662) IM ONE (09:00)
[2017-08-01] MEDS ORDERED: PREVNAR 13 VACCINE SYRINGE (CPT CODE:90670) IM ONE (09:00)
[2017-08-01] MEDS: VITAMIN D 1,000 INTERNATIONAL UNITS TABLET PO SCH (09:19)
[2017-08-01] MEDS: LACTOBACILLUS ACIDOPHILUS CAP (BACID) PO SCH (09:19)
[2017-08-01] MEDS: CO-ENZYME Q10 50 MG CAP PO SCH ×2 (09:19→20:59)
[2017-08-01] MEDS: oxyCODONE 10 MG CR TAB PO SCH ×2 (09:20→21:03)
[2017-08-01] MEDS: CLOPIDOGREL 75 MG TAB PO SCH (09:21)
[2017-08-01] MEDS: ASCORBIC ACID 500 MG TAB PO SCH (09:21)
[2017-08-01] MEDS: CARVedilol 3.125 MG TAB PO SCH ×2 (09:21→21:02)
[2017-08-01] MEDS: MULTIVITAMINS/MINERALS THERAP 1 TAB PO SCH (09:21)
[2017-08-01] MEDS: FUROSEMIDE 100 MG/10 ML VIAL (J1940) IV SCH ×2 (09:22→17:07)
--- NOTE | 2017-08-01 11:56 | IPNPDOC ---
Date Seen The patient was seen on 08/01/17. Progress Note SUBJECTIVE: He was seen and evaluated at the bedside this morning. Apparently he was having some increasing pain yesterday therefore OxyContin was added to his regimen. He apparently slept very well last night. He does continue to wheeze, and his bilateral lower extremity swelling has not improved. He does not have shortness of breath at rest. He apparently did have some desaturations during the night, as and him and explained to me that he has known obstructive sleep apnea for which she has had 2 sleep studies, the most recent of which was 3 months ago. He does have a CPAP at home, but he is noncompliant with this as he states that he cannot sleep with it on. He is aware of the risks associated with untreated obstructive sleep apnea, and is aware that it may be exacerbating his current situation. Otherwise, he does state that his pain is well controlled this morning, and other than the wheezing and coughing and shortness of breath, he has no additional complaints. The remainder of his review of systems is negative. PHYSICAL EXAMINATION: GENERAL: Reclined in bed. He is in no acute distress, however I recommended that he elevate the head of his bed as this will likely improve his shortness of breath when laying down. HEENT: normocephalic, atraumatic CARDIOVASCULAR: 2-3/6 systolic murmur, regular rate RESPIRATORY: minimal wheezing noted, slightly diminished breath sounds at the bases with fine crackles. Much of his wheezing is also laryngeal, and he does continue to have a raspy voice. ABDOMINAL: soft, non tender, bowel sounds present EXTREMITIES: pitting edema 1-2+ b/l LE essentially unchanged from yesterday NEUROLOGICAL: A&Ox3 PROBLEMS: 1. Acute on chronic renal failure. Diuretics are being adjusted by the nephrology service, their input and the matters greatly appreciated. 2. Diastolic congestive heart failure. Complicating the picture in light of his renal failure, we will continue to monitor daily weights. I suspect that he may have some mild pulmonary and laryngeal edema that may be contributing to his wheezing. 3. Slowly progressive shortness of breath, wheeze, productive cough- patient with negative influenza swab, negative respiratory panel, sputum culture still pending. He continues to be afebrile with a normal white count. Blood cultures are negative at 24 hours. And given his heavy smoking history, it may be possible that he is now developing some degree of COPD or asthma, he will need to have PFT's outpatient for an official diagnosis, but for now we will see if his wheezing and respiratory status improves with treatment of his acute issues. 4. Coronary artery disease status post CABG 4. Echo is still pending. 5. History of endocarditis with replacement of aortic and mitral valve with bioprosthetic Valve approximately 1 year ago. Endocarditis is less likely given the fact that he has not had fever or other constitutional symptoms. BC's negative at 24 hours. 6. History of bladder cancer- patient's US without evidence of obstruction. 7. Diabetes mellitus type 2- fasting BG 157 this AM. Continue with Consistent Carb diet, and we'll monitor his fingersticks, we will hold off on insulin coverage for now as his sugars have been within acceptable ranges for the inpatient setting. 8. Hyperlipidemia. Continue statin 9. Obesity. Complicating care 10. Chronic back pain. Morphine sulfate, we also added OxyContin to help with his pain in the acute setting. 11. Anemia of chronic disease. No treatment indicated at this time, continue to monitor. 12. Obstructive sleep apnea. This is been diagnosed on 2 different occasions, patient is noncompliant with CPAP at home, and refuses to have it while inpatient either. 12. DVT prophylaxis. Heparin. VS, I&O, 24H, Adambone Vital Signs/I&O Vital Signs Date Time Temp Pulse Resp B/P (MAP) Pulse Ox O2 Delivery O2 Flow Rate FiO2 08/01/17 09:21 82 176/86 08/01/17 09:20 18 08/01/17 09:00 91 Nasal Cannula 2.0 08/01/17 08:00 96.4 I&O- Last 24 Hours up to 6 AM 08/02/17 05:59 Intake Total 0 ml Output Total 0 ml Balance 0 ml Laboratory Data 24H LABS Laboratory Tests 2 07/31/17 12:13: Total Creatine Kinase 199, Creatine Kinase MB 3.2, Creatine Kinase MB Relative Index 1.60, Troponin I < 0.02# 07/31/17 12:56: Bedside Glucose (Misc Panel) 135H 07/31/17 21:30: Bedside Glucose (Misc Panel) 151H 08/01/17 05:55: Blood Urea Nitrogen 73H, Creatinine 2.93H, Sodium Level 144, Potassium Level 4.6 , Chloride Level 103, Carbon Dioxide Level 30, Anion Gap 11, Glomerular Filtration Rate 22.6L, Calcium Level 7.6L, Phosphorus Level 5.7H, Magnesium Level 1.9, AP-Lqv-[id number]-Type Natriuretic Peptide 3717H, Albumin 4.1 CBC/BMP Laboratory Tests 08/01/17 05:55 Red Blood Count 3.26 L, Mean Corpuscular Volume 99.1 H, Mean Corpuscular Hemoglobin 31.9, Mean Corpuscular Hemoglobin Concent 32.2, Red Cell Distribution Width 14.4, Anion Gap 11 Microbiology Microbiology 07/30/17 Blood Culture - Preliminary, Resulted No growth after 24 hours . All specim... 07/30/17 Blood Culture - Preliminary, Resulted No growth after 24 hours . All specim... 07/31/17 Respiratory Virus Panel (PCR) ([facility]) - Final, Complete 07/31/17 Gram Stain - Final, Resulted 07/31/17 Sputum Culture, Resulted Pending 07/30/17 Influenza Virus Type A Antigen - Final, Complete 07/30/17 Influenza Virus Type B Antigen - Final, Complete AUSTIN MADISON DO Aug 01, 2017 11:56
[2017-08-01] MEDS: predniSONE 20 MG TAB PO SCH (12:03)
[2017-08-01] MEDS: BUDESONIDE 0.5 MG/2 ML INHALATION SUSPENSION INH SCH ×2 (12:40→20:05)
[2017-08-01] MEDS ORDERED: metOLazone 2.5 MG TAB PO ONE (14:00)
--- NOTE | 2017-08-01 16:07 | IPN ---
DATE: 08/01/2017 SUBJECTIVE: The patient is seen this morning at the bedside. He states he slept very well yesterday without any shortness of breath. He notes increased exercise tolerance with decreased dyspnea on exertion. He wishes to be discharged soon. He continues to have a wheeze. REVIEW OF SYSTEMS: Positive for lessened shortness of breath, lessened dyspnea on exertion, ongoing wheeze, decreased peripheral edema. No nausea, vomiting, diarrhea, chest pain, palpitations, abdominal pain. Remainder of review of systems is negative. PHYSICAL EXAMINATION: Temperature 97.1, pulse 79, respiratory rate 20, saturating 94% on room air, blood pressure 127/74. Urine output yesterday 1990 mL. Oral intake 1675, net negative 315 mL. Weight in the bed scale today 108.5 kg. Patient is seen sitting up at the edge of the bed, legs dangling, in no acute distress. NECK: Supple. No jugular venous distention (JVD). RESPIRATORY: Occasional end-expiratory wheeze present. Decreased breath sounds at the base with crackles prominent at the left base. CARDIOVASCULAR: S1, S2, regular rate. Decreased lower extremity edema as compared to yesterday, about 1+. ABDOMEN: Soft, nontender. NEUROLOGIC: Alert and oriented times three. No focal deficits. PSYCHIATRIC: Appropriate mood and affect. LABORATORY DATA: White count 9.6, hemoglobin 10.4, platelets 211. Sodium 144, potassium 4.6, bicarbonate 30, creatinine 2.9, BUN 73, phosphorus 5.7, magnesium 1.9. BNP 3700. Microbiology: Blood cultures remain negative for 24 hours. INPATIENT MEDICATIONS: Patient remains on DuoNeb. He is started on Pulmicort. He received a one-time dose of metolazone 2.5 mg by myself and prednisone 40 mg. Remainder of medications are unchanged from prior. ASSESSMENT AND PLAN: 1. Acute kidney injury (SANDRA), on chronic kidney disease (CKD), stage III, with volume overload. The patient made about 2 liters of urine yesterday; however, he did have significant oral intake and is in about equivalent fluid balance. He is counseled on 50-ounce fluid restriction. Will give a one-time dose of metolazone today to augment diuresis with sequential nephron blockade. His BNP has actually risen from prior. 2. Dyspnea on exertion. Although the patient's volume status has not significantly changed in the past 24 and he remains in rather equivalent fluid balance, he does note symptomatic relief with lessened dyspnea on exertion. I suspect his shortness of breath may be secondary to chronic obstructive pulmonary disease (COPD). He was wheezing. He feels much better after DuoNeb treatments. He has been started on Pulmicort by the primary team. We will also give him 3-day course of prednisone as he continues to diurese. 3. Diastolic congestive heart failure, currently with volume overload, receiving Lasix 80 intravenous (IV) twice a day and a one-time dose of metolazone today. 4. History of coronary artery disease (CAD), status post coronary artery bypass graft (CABG). An echocardiogram is pending. Plan of care discussed with Dr. Laurence Rodriguez. edited: 08/04/2017 1243 tkf JESSY
[2017-08-01] MEDS: SENNA 8.6 MG TAB (SENOKOT) PO SCH (21:02)
[2017-08-01] MEDS: ALLOPURINOL 100 MG TAB PO SCH (21:02)
[2017-08-01] MEDS: ATORVASTATIN 20 MG TAB PO SCH (21:02)
[2017-08-01] MEDS: PARoxetine 20 MG TAB PO SCH (21:02)
[2017-08-02] MEDS: HEPARIN SOD (PORCINE) 5000 UNITS/ML VIAL SC SCH (05:16)
[2017-08-02 05:32] LABS: MEAN CORPUSCULAR HEMOGLOBIN 31.7 pg (27.0-33.0); MEAN CORPUSCULAR HGB CONC 32.7 g/dl (32.0-36.5); MEAN CORPUSCULAR VOLUME 97.1 fl (80.0-96.0); RED CELL DISTRIBUTION WIDTH 14.3 % (11.5-14.5); WHITE BLOOD COUNT 9.2 10^3/uL (4.0-10.0)
[2017-08-02 06:00] VITALS: BP 155/78
[2017-08-02 06:01] LABS: ALBUMIN 3.7 GM/DL (3.2-5.2); CALCIUM LEVEL 7.7 MG/DL (8.8-10.2); CREATININE FOR GFR 2.73 MG/DL (0.70-1.30); GLOMERULAR FILTRATION RATE 24.5 (>42); PHOSPHORUS LEVEL 4.7 MG/DL (2.5-4.9); POTASSIUM SERUM 4.3 MEQ/L (3.5-5.1)
[2017-08-02] MEDS: BUDESONIDE 0.5 MG/2 ML INHALATION SUSPENSION INH SCH (07:34)
[2017-08-02] MEDS ORDERED: ALB2.5NEB NEB (08:51)
[2017-08-02 09:02] VITALS: BP 155/78
[2017-08-02] MEDS: VITAMIN D 1,000 INTERNATIONAL UNITS TABLET PO SCH (09:02)
[2017-08-02] MEDS: LACTOBACILLUS ACIDOPHILUS CAP (BACID) PO SCH (09:02)
[2017-08-02] MEDS: CARVedilol 3.125 MG TAB PO SCH (09:02)
[2017-08-02] MEDS: predniSONE 20 MG TAB PO SCH (09:02)
[2017-08-02] MEDS: ASCORBIC ACID 500 MG TAB PO SCH (09:02)
[2017-08-02] MEDS: CLOPIDOGREL 75 MG TAB PO SCH (09:02)
[2017-08-02] MEDS: MULTIVITAMINS/MINERALS THERAP 1 TAB PO SCH (09:02)
[2017-08-02] MEDS: CO-ENZYME Q10 50 MG CAP PO SCH (09:03)
[2017-08-02] MEDS: oxyCODONE 10 MG CR TAB PO SCH (09:03)
[2017-08-02] MEDS: FUROSEMIDE 100 MG/10 ML VIAL (J1940) IV SCH (09:04)
--- NOTE | 2017-08-02 12:54 | DS.PDOC ---
Discharge Summary General Date of Admission Jul 30, 2017 at 18:40 Date of Discharge 08/02/2017 Discharge Summary PRIMARY CARE PHYSICIAN: Dr. Dill ATTENDING AT TIME OF DISCHARGE: Dr. Laurecne Rodriguez DISCHARGE DIAGNOS(E)S: 1. Acute on chronic renal failure (chronic kidney disease stage III) 2. Acute decompensation of diastolic congestive heart failure 3. Slowly progressive dyspnea on exertion, wheeze, productive cough 4. Coronary artery disease status post quadruple bypass CABG 5. History of endocarditis with replacement of aortic and mitral valve with bioprosthetic valve 6. History of bladder cancer 7. Diabetes mellitus type 2 8. Hyperlipidemia 9. Obesity 10. Chronic back pain 11. Anemia of chronic disease 12. Confirmed obstructive sleep apnea, noncompliant with CPAP HPI & HOSPITAL COURSE: Mr. Mckeon is a 72-year-old male who presented to the emergency department with worsening shortness of breath on exertion, which he eventually became shortness of breath while he was in the shower, therefore he desired further evaluation. 7 days prior to his hospitalization he was started on clarithromycin by his PCP with no relief. Also a few days prior to his hospitalization he called his master control supervisor to increase his dose of torsemide from 20 milligrams daily to 40 milligrams daily, however he had only taken one dose of this prior to coming to the emergency department. While inpatient he was diuresed using IV furosemide as well as a dose of metolazone, and he was fluid restricted 1800 mL. He diuresed well, his shortness of breath improved, the edema in his legs improved, and as a matter fact his wheezing and raspy voice resolved as well. I suspect that he may have had some mild pulmonary laryngeal edema causing his wheeze and raspy voice, although given his extensive smoking history, asthma and COPD cannot entirely be ruled out, but without PFTs available in the hospital this cannot be diagnosed either. Either way, he does appear to be significantly improved this morning. He is in a good mood, breathing well, and able to get around the room without any trouble. He has no complaints at this time, his review of systems is negative. He wishes to go home. PHYSICAL EXAMINATION ON DISCHARGE: GENERAL: Awake, alert, oriented 3. He is in a good mood. CARDIOVASCULAR EXAMINATION: Regular rate and rhythm, with no rubs, gallops, 2/6 systolic murmur. RESPIRATORY EXAMINATION: Clear to auscultation bilaterally with no wheezes, rales, or rhonchi. ABDOMINAL EXAMINATION: Soft, nontender, nondistended. Bowel sounds present. EXTREMITIES: No clubbing, only trace pitting edema noted in the feet. 2+ pulses in the radial bilaterally. DISPOSITION: Home DISCHARGE INSTRUCTIONS: Follow-up with both his primary care provider Dr. Dill as well as his master control supervisor Dr. Hope within 7-10 days. His diet should continue to be fluid restricted to 1800 mL, he should remain on a consistent carbohydrate diet, and a 2 milligram potassium diet. Activity as tolerated. If symptoms return, or if you experience worsening of your symptoms, please call your doctor or return to the emergency department. DISCHARGE MEDICATIONS: Upon discharge we will keep him at the 40 milligrams daily of torsemide which was recently increased from his usual 20 milligrams daily. He appeared to derive a significant amount of relief from his wheezing with nebulizers, therefore prescription has been written for this. Otherwise, no additional changes were made to his home medications ITEMS THAT NEED OUTPATIENT FOLLOWUP: May consider outpatient PFTs for evaluation of possibility of asthma vs COPD if he continues to have wheezing and dyspnea in the absence of fluid overload. My preceptor for this patient encounter was physically present in the building during the encounter and was fully available. As needed, all aspects of the patient interview, examination, medical decision making process, and medical care plan development were reviewed and approved by the preceptor. Preceptor is aware and concurs with the plan as stated in the body of this note and will attest to such by his/her cosignature. Vital Signs/I&Os Vital Signs Date Time Temp Pulse Resp B/P (MAP) Pulse Ox O2 Delivery O2 Flow Rate FiO2 08/02/17 09:03 16 08/02/17 09:02 89 155/78 08/02/17 06:00 97.0 94 Room Air 08/01/17 21:38 1.0 I&O- Last 24 Hours up to 6 AM 08/03/17 06:00 Intake Total 60 ml Output Total 400 ml Balance -340 ml Laboratory Data Labs 24H Laboratory Tests 2 08/01/17 20:48: Bedside Glucose (Misc Panel) 277H 08/02/17 04:58: Blood Urea Nitrogen 83H, Creatinine 2.73H, Sodium Level 135#L, Potassium Level 4.3, Chloride Level 97L, Carbon Dioxide Level 29, Anion Gap 9, Glomerular Filtration Rate 24.5L, Calcium Level 7.7L, Phosphorus Level 4.7, Albumin 3.7 CBC/BMP Laboratory Tests 08/02/17 04:58 Red Blood Count 3.15 L, Mean Corpuscular Volume 97.1 H, Mean Corpuscular Hemoglobin 31.7, Mean Corpuscular Hemoglobin Concent 32.7, Red Cell Distribution Width 14.3, Anion Gap 9 FSBS Laboratory Tests Test 08/01/17 20:48 Range/Units Bedside Glucose (Misc Panel) 277 83-110 MG/DL Microbiology Microbiology 07/30/17 Blood Culture - Preliminary, Resulted No Growth after 48 hours. All Specime... 07/30/17 Blood Culture - Preliminary, Resulted No Growth after 48 hours. All Specime... 07/31/17 Respiratory Virus Panel (PCR) ([facility]) - Final, Complete 07/31/17 Gram Stain - Final, Complete 07/31/17 Sputum Culture - Final, Complete 07/30/17 Influenza Virus Type A Antigen - Final, Complete 07/30/17 Influenza Virus Type B Antigen - Final, Complete Discharge Medications Scheduled (Coq-10) 100 Mg Cap, 100 MG PO BID, (Reported) Allopurinol (Allopurinol) 100 Mg Tab, 100 MG PO QPM, (Reported) Ascorbic Acid (Ascorbic Acid) 500 Mg Tab, 500 MG PO DAILY, (Reported) Atorvastatin Calcium (Lipitor) 20 Mg Tab, 20 MG PO QPM, (Reported) Carvedilol (Carvedilol) 6.25 Mg Tab, 6.25 MG PO BID, (Reported) Cholecalciferol (D2000 Ultra Strength) 2,000 Unit Cap, 4,000 UNIT PO DAILY, ( Reported) Cinacalcet Hydrochloride (Sensipar) 30 Mg Tab, 30 MG PO ASDIRECTED, (Reported) TAKES ON FRIDAY AND FRIDAY AT 1800 Clarithromycin (Clarithromycin) 500 Mg Tab, 500 MG PO BID, (Reported) Clopidogrel Bisulfate (Clopidogrel) 75 Mg Tab, 75 MG PO DAILY, (Reported) Lactobacillus Acidophilus (Bacid) 1 Tab Tab, 1 TAB PO DAILY, (Reported) Multivitamins *[facility] STOCKED* (Thera M Plus *[facility] STOCKED*) 1 Tab Tab, 1 TAB PO DAILY, (Reported) Paroxetine (Paroxetine HCl) 20 Mg Tab, 20 MG PO QPM, (Reported) Potassium Chloride (Potassium Chloride ER) 20 Meq Tab, 20 MEQ PO DAILY, ( Reported) Senna (Senna Lax) 8.6 Mg Tab, 1 TAB PO QPM, (Reported) Spironolactone (Spironolactone) 25 Mg Tab, 25 MG PO QPM, (Reported) Torsemide (Torsemide) 20 Mg Tab, 40 MG PO DAILY, (Reported) Scheduled PRN Albuterol Sulfate (Proair Hfa) 108 Mcg/Act Aer, 2 PUFFS INH Q4H PRN for SHORTNESS OF BREATH, (Reported) Albuterol Sulfate (Albuterol Sulfate) 2.5 Mg/0.5 Ml Neb, 2.5 MG NEB Q2HP PRN for SOB/WHEEZING Alprazolam (Alprazolam) 0.25 Mg Tab, 0.25 MG PO QID PRN for ANXIETY, (Reported) Hydroxyzine HCl (Hydroxyzine HCl) 25 Mg Tab, 25 MG PO BID PRN for ITCHING, ( Reported) Loratadine (Loratadine) 10 Mg Tab, 5 MG PO DAILY PRN for ALLERGIES, (Reported) Morphine Sulfate (Morphine Sulfate) 15 Mg Tab, 15 MG PO Q8H PRN for PAIN, ( Reported) Nitroglycerin (Nitroglycerin) 0.4 Mg Sub, 0.4 MG SL NITRO PRN for CHEST PAIN, ( Reported) Prednisone (Prednisone) 20 Mg Tab, 20 MG PO ASDIRECTED PRN for GOUT FLARE-UP, ( Reported) TAKES BID FOR 3 DAYS AND THEN DAILY FOR 2 DAYS WHEN THERE IS A GOUT FLARE-UP Allergies Coded Allergies: Aspirin (Verified Allergy, Severe, lip swelling, 03/26/17) Ampicillin (Unverified Allergy, Intermediate, HIVES, 03/12/17) Penicillins (Verified Allergy, Intermediate, rash, 03/12/17) Ceftriaxone (Unverified Allergy, Unknown, 02/10/17) AUSTIN MADISON DO Aug 02, 2017 12:54
== END 2017-08-02 09:31 | disposition home or self-care (01) | DRG 291 ==
LOC: M ED 13:52 → M ED INP 18:40 → M PCU 07-31 14:07 → M MSPAV 08-01 12:32
PROVIDERS: ADMIT Internal Medicine; ATTEND Internal Medicine Nephrology
DX: I13.0 Hypertensive heart and chronic kidney disease with heart failure and stage 1 through stage 4 chronic kidney disease, or unspecified chronic kidney disease (principal); I50.33 Acute on chronic diastolic (congestive) heart failure; N17.9 Acute kidney failure, unspecified; N18.3 Chronic kidney disease, stage 3 (moderate); E11.9 Type 2 diabetes mellitus without complications; E78.5 Hyperlipidemia, unspecified; E66.9 Obesity, unspecified; D63.1 Anemia in chronic kidney disease; F41.9 Anxiety disorder, unspecified; I25.10 Atherosclerotic heart disease of native coronary artery without angina pectoris; Z88.1 Allergy status to other antibiotic agents; Z88.6 Allergy status to analgesic agent; Z88.0 Allergy status to penicillin; Z95.1 Presence of aortocoronary bypass graft; Z95.2 Presence of prosthetic heart valve; Z92.21 Personal history of antineoplastic chemotherapy; Z85.51 Personal history of malignant neoplasm of bladder; Z87.891 Personal history of nicotine dependence; Z79.899 Other long term (current) drug therapy; Z68.38 Body mass index [BMI] 38.0-38.9, adult

== ENCOUNTER → 2017-09-16 | Outpatient (REF) | payer MEDICARE, OTHER ==
[~2017-09-16] MED LIST changes: +ALB2.5NEB NEB; +CLAR500T PO; +LORA10TA2 PO; +MORP15TA2 PO; +PROAAER10 INH; +SENN1TAB10 PO; +SPIR25TA2 PO
[2017-09-16 17:42] LABS: ALBUMIN 3.9 GM/DL (3.2-5.2); CALCIUM LEVEL 7.4 MG/DL (8.8-10.2); CREATININE FOR GFR 2.45 MG/DL (0.70-1.30); GLOMERULAR FILTRATION RATE 27.7 (>42); MAGNESIUM LEVEL 1.4 MG/DL (1.8-2.4); PHOSPHORUS LEVEL 5.1 MG/DL (2.5-4.9); POTASSIUM SERUM 4.1 MEQ/L (3.5-5.1)
== END ==
LOC: M LABSMT 17:02
PROVIDERS: ATTEND Physician Assistant
DX: I50.32 Chronic diastolic (congestive) heart failure (principal)

== ENCOUNTER → 2017-09-16 | Outpatient (REF) | payer MEDICARE, OTHER ==
[2017-09-16 17:58] LABS: ALBUMIN 3.9 GM/DL (3.2-5.2); ALBUMIN/GLOBULIN RATIO 1.22 (1.00-1.93); BILIRUBIN,TOTAL 0.4 MG/DL (0.2-1.0); CALCIUM LEVEL 7.5 MG/DL (8.8-10.2); CREATININE FOR GFR 2.44 MG/DL (0.70-1.30); GLOMERULAR FILTRATION RATE 27.9 (>42); POTASSIUM SERUM 4.2 MEQ/L (3.5-5.1); TOTAL PROTEIN 7.1 GM/DL (6.4-8.2)
[2017-09-16 19:37] LABS: MEAN CORPUSCULAR HEMOGLOBIN 31.9 pg (27.0-33.0); MEAN CORPUSCULAR HGB CONC 32.1 g/dl (32.0-36.5); MEAN CORPUSCULAR VOLUME 99.4 fl (80.0-96.0); PLATELET COUNT, AUTOMATED 227 10^3/uL (150-450); RED CELL DISTRIBUTION WIDTH 14.6 % (11.5-14.5); WHITE BLOOD COUNT 10.8 10^3/uL (4.0-10.0)
== END ==
LOC: M LABSMT 17:03
PROVIDERS: ATTEND Urology
DX: C67.9 Malignant neoplasm of bladder, unspecified (principal); I50.32 Chronic diastolic (congestive) heart failure; Z79.899 Other long term (current) drug therapy

== ENCOUNTER → 2017-09-26 | Outpatient (CLI) | payer MEDICARE, OTHER ==
--- NOTE | 2017-09-26 13:43 | REP ---
Duplex extremity venous ultrasound: Right lower extremity History: Right leg swelling, evaluate for DVT. Findings: The deep veins are anechoic and fully compressible from the groin to the popliteal fossa in the right lower extremity. Color flow imaging is homogeneous. Spectral Doppler interrogation demonstrates intact respiratory variation in flow and normal manual augmentation of flow. There is no evidence of deep vein thrombosis. Impression: Negative right lower extremity duplex venous ultrasound. No evidence of deep vein thrombosis. Signed by Agusto Kumar MD 09/26/2017 01:34 P
== END ==
LOC: M RAD 12:05
PROVIDERS: ATTEND Internal Medicine Nephrology
DX: I82.401 Acute embolism and thrombosis of unspecified deep veins of right lower extremity (principal)

== ENCOUNTER 2017-09-27 21:54 | Emergency (ER) | payer MEDICARE, OTHER ==
[~2017-09-27] VITALS: Ht 167.6 cm; Wt 104.5 kg
[2017-09-27] MEDS ORDERED: MORPHINE 4 MG/ML 1ML SYRINGE IV ONE ×2 (22:30→23:45)
[2017-09-27] MEDS ORDERED: NS 500 ML IV ONE (22:30)
[2017-09-27 22:38] LABS: BASO % 0.2 % (0.0-1.0); EOS # 0.4 10^3/uL (0.0-0.50); EOS % 2.8 % (0.0-3.0); IMMATURE GRANULOCYTE % 1.1 % (0-0); LYMPH # 1.8 10^3/uL (1.5-4.5); LYMPH % 13.3 % (24.0-44.0); MEAN CORPUSCULAR HEMOGLOBIN 32.4 pg (27.0-33.0); MEAN CORPUSCULAR HGB CONC 33.2 g/dl (32.0-36.5); MEAN CORPUSCULAR VOLUME 97.4 fl (80.0-96.0); MONO # 1.1 10^3/uL (0.0-0.8); MONO % 8.1 % (0.0-5.0); NEUTROPHILS # 9.9 10^3/uL (1.8-7.7); NEUTROPHILS % 74.5 % (36.0-66.0); PLATELET COUNT, AUTOMATED 197 10^3/uL (150-450); RED CELL DISTRIBUTION WIDTH 14.3 % (11.5-14.5); WHITE BLOOD COUNT 13.3 10^3/uL (4.0-10.0)
[2017-09-27 22:41] LABS: INR 1.06
[2017-09-27 22:49] LABS: ALBUMIN 3.8 GM/DL (3.2-5.2); ALBUMIN/GLOBULIN RATIO 1.09 (1.00-1.93); BILIRUBIN,DIRECT 0.2 MG/DL (0.0-0.2); BILIRUBIN,TOTAL 0.4 MG/DL (0.2-1.0); CALCIUM LEVEL 7.3 MG/DL (8.8-10.2); CREATININE FOR GFR 2.57 MG/DL (0.70-1.30); GLOMERULAR FILTRATION RATE 26.2 (>42); POTASSIUM SERUM 4.2 MEQ/L (3.5-5.1); TOTAL PROTEIN 7.3 GM/DL (6.4-8.2)
--- NOTE | 2017-09-28 00:40 | REPUSA ---
CLINICAL HISTORY: Head trauma. TECHNIQUE: Multiple axial brain CT scan sections were obtained from base to vertex without contrast a dministration. COMMENTS: There is no evidence of skull fracture. The study shows normal configuration of sella turcica. There are no intra or extra-axial collections. There is no mass effect or midline shift. There is no evidence of hematoma formation. No hydrocephal us is present. No abnormal calcifications are noted. No significant abnormalities are seen either in the posterior fossa or supratentorial compartment. The sinuses and mastoid air cells are patent. IMPRESSION: No change is noted since the prior exam on 04/02/2016. No evidence of acute intracranial pathology. No intracranial hemorrhage or skull fracture. Thank you for your kind referral of this patient.
--- NOTE | 2017-09-28 00:50 | REPUSA ---
CLINICAL HISTORY: Neck pain. TECHNIQUE: Multiple axial images were obtained through the cervical spine. Images were also reconstru cted in coronal and sagittal planes. The study was performed without IV contrast. COMMENTS: There is no fracture or spondylolisthesis visualized. The paraspinal soft tissues are unremarkable. T here are no lytic or blastic lesions. Straightening of cervical lordosis is seen, suggesting muscular spasm. There is evidence of moderate multilevel disk disease, demonstrated by osteophytosis and endplate sclerosis. Moderate multilevel degenerative disc disease. IMPRESSION: 1. No fracture or spondylolisthesis. 2. Straightening of cervical lordosis is seen, suggesting muscular spasm. 3. Multilevel spondylosis. Thank you for your kind referral of this patient.
--- NOTE | 2017-09-28 01:10 | REPUSA ---
CLINICAL HISTORY: Abdominal pain. TECHNIQUE: Multiple axial, sagittal and coronal CT images were obtained through the abdomen and pelvi s without administration of oral or IV contrast material. COMMENTS: The liver is of uniform attenuation without mass or defect. There is no intra or extrahepatic biliary ductal dilatation. The spleen is normal. The gallbladder contains a gallstone. The pancreas is of no rmal contour and attenuation characteristics. There is no evidence of adrenal mass. The kidneys are normal in size, shape and configuration. No renal or ureteral calculi are identified. There is no hydroureter or hydronephrosis. There is no evidence for appendicitis. There is no bowel wall thickening. No evidence for small or la rge bowel obstruction. There is no evidence of abdominal ascites or lymphadenopathy. There is no evidence of intrinsic or extrinsic bladder mass. Air density in the bladder secondary to recent instrumentation. Thickened bladder. Prostatomegaly. There is no pelvic ascites or lymphadenopa thy. Fluid filled distended stomach suggestive of gastroparesis. Images of the lung bases show no evidence of pleural or parenchymal mass. There are no pleural effusi ons. The bony structures are free of lytic or blastic lesions. Multilevel degenerative changes are seen in volving the thoracolumbar spine. Scattered calcifications are seen involving the aorta and major branches compatible with atherosclero sis. Bilateral fat containing inguinal hernias without incarceration. IMPRESSION: Gallstone. Gastroparesis. Air density in the bladder, probably recent instrumentation. Spondylosis. No acute traumatic pathology. Thank you for your kind referral of this patient.
--- NOTE | 2017-09-28 01:10 | REPUSA ---
CLINICAL HISTORY: Trauma. TECHNIQUE: Multiple axial CT images were obtained through chest without IV contrast material. MPR cor onal and sagittal sequences were obtained. COMMENTS: Prior CABG. Subsegmental atelectatic airspace disease in the posterior basal segment of the right lower lobe. There is no evidence of pleural or parenchymal mass. There are no pleural effusions. There is no evid ence of hilar or mediastinal lymphadenopathy. The heart and great vessels are within normal limits. The visualized portions of the liver are of uniform attenuation without mass or defect. There is no i ntra or extrahepatic biliary ductal dilatation. The spleen is unremarkable. The visualized pancreas i s of normal contour and attenuation characteristics. There is no evidence of adrenal mass. The visual ized portions of the kidneys present no abnormalities. The bony structures are free of lytic or blastic lesions. Multilevel degenerative changes are seen in volving the thoracic spine. Scattered calcifications are seen involving the aorta and visualized sravanthi r branches compatible with atherosclerosis. Spinal stimulator is noted. IMPRESSION: Segmental atelectatic airspace disease in the right lower lobe. Prior CABG. No evidence of acute thoracic pathology. Thank you for your kind referral of this patient.
[2017-09-28] MEDS ORDERED: MORPHINE 4 MG/ML 1ML SYRINGE IV ONE (01:30)
[2017-09-28 01:45] VITALS: BP 159/83
== END 2017-09-28 01:58 | disposition home or self-care (01) ==
LOC: M ED 21:54
DX: S00.93XA Contusion of unspecified part of head, initial encounter (principal); S30.1XXA Contusion of abdominal wall, initial encounter; W19.XXXA Unspecified fall, initial encounter; Y92.098 Other place in other non-institutional residence as the place of occurrence of the external cause; Y93.89 Activity, other specified; Y99.8 Other external cause status; I25.10 Atherosclerotic heart disease of native coronary artery without angina pectoris; E11.9 Type 2 diabetes mellitus without complications; E78.5 Hyperlipidemia, unspecified; D64.9 Anemia, unspecified; M19.90 Unspecified osteoarthritis, unspecified site; N28.9 Disorder of kidney and ureter, unspecified; Z95.1 Presence of aortocoronary bypass graft; I35.8 Other nonrheumatic aortic valve disorders; Z87.891 Personal history of nicotine dependence; Z79.899 Other long term (current) drug therapy; Z79.02 Long term (current) use of antithrombotics/antiplatelets; Z88.1 Allergy status to other antibiotic agents; Z88.0 Allergy status to penicillin; Z88.6 Allergy status to analgesic agent

== ENCOUNTER → 2017-11-17 | Outpatient (REF) | payer MEDICARE, OTHER | LOC: M SMT 17:03 | DX: Z85.51 Personal history of malignant neoplasm of bladder (principal) | CPT/HCPCS: 88108 ==

== ENCOUNTER → 2017-11-24 | Outpatient (REF) | payer MEDICARE, OTHER ==
[2017-11-24 19:07] LABS: APPEARANCE, URINE CLEAR (CLEAR); BACTERIA, URINE AUTO NEGATIVE (NEGATIVE); BILIRUBIN, URINE AUTO NEGATIVE (NEGATIVE); BLOOD, URINE BLOOD NEGATIVE (NEGATIVE); COLOR, URINE YELLOW (YELLOW); GLUCOSE, URINE (UA) AUTO NEGATIVE (NEGATIVE); KETONE, URINE AUTO NEGATIVE (NEGATIVE); LEUKOCYTE ESTERASE, URINE AUTO NEGATIVE (NEGATIVE); MUCUS, URINE SMALL (NEGATIVE); NITRITE, URINE AUTO NEGATIVE (NEGATIVE); PROTEIN, URINE AUTO NEGATIVE (NEGATIVE); RBC, URINE AUTO 0 /HPF (0-3); SPECIFIC GRAVITY URINE AUTO 1.008 (1.002-1.035); SQUAMOUS EPITHELIAL CELL UR AU 0 /HPF (0-6); UROBILINOGEN, URINE AUTO 0.2 mg/dL (0.0-2.0); WBC, URINE AUTO 0 /HPF (0-3)
== END ==
LOC: M SMT 17:17
DX: Z85.51 Personal history of malignant neoplasm of bladder (principal); Z79.899 Other long term (current) drug therapy
CPT/HCPCS: 81001

== ENCOUNTER → 2017-12-01 | Outpatient (CLI) | payer MEDICARE, OTHER | LOC: M RAD 14:58 | DX: J32.0 Chronic maxillary sinusitis (principal) | CPT/HCPCS: 70486 ==

== ENCOUNTER → 2018-01-05 | Outpatient (REF) | payer MEDICARE, OTHER ==
[2018-01-05 13:08] LABS: APPEARANCE, URINE CLEAR (CLEAR); BACTERIA, URINE AUTO NEGATIVE (NEGATIVE); BILIRUBIN, URINE AUTO NEGATIVE (NEGATIVE); BLOOD, URINE BLOOD NEGATIVE (NEGATIVE); COLOR, URINE STRAW (YELLOW); GLUCOSE, URINE (UA) AUTO NEGATIVE (NEGATIVE); KETONE, URINE AUTO NEGATIVE (NEGATIVE); LEUKOCYTE ESTERASE, URINE AUTO NEGATIVE (NEGATIVE); MUCUS, URINE SMALL (NEGATIVE); NITRITE, URINE AUTO NEGATIVE (NEGATIVE); PROTEIN, URINE AUTO NEGATIVE (NEGATIVE); RBC, URINE AUTO 10 /HPF (0-3); SPECIFIC GRAVITY URINE AUTO 1.006 (1.002-1.035); SQUAMOUS EPITHELIAL CELL UR AU 0 /HPF (0-6); UROBILINOGEN, URINE AUTO 0.2 mg/dL (0.0-2.0); WBC, URINE AUTO 2 /HPF (0-3)
== END ==
LOC: M LAB REF 12:23
DX: Z85.51 Personal history of malignant neoplasm of bladder (principal); Z79.899 Other long term (current) drug therapy
CPT/HCPCS: 81001

== ENCOUNTER 2018-01-12 13:42 | Emergency (ER) | payer MEDICARE, OTHER ==
[2018-01-12] MEDS: MORPHINE 4 MG/ML 1ML VIAL (J2270) SC (16:14)
[2018-01-12] MEDS ORDERED: PILL CUTTER/CRUSHER XX (16:15)
[2018-01-12] MEDS: MORPHINE 30 MG TAB **MSIR PO (17:39)
== END 2018-01-12 18:34 | disposition home or self-care (01) ==
LOC: M ED 13:42
DX: S80.02XA Contusion of left knee, initial encounter (principal); S51.802A Unspecified open wound of left forearm, initial encounter; M25.462 Effusion, left knee; W19.XXXA Unspecified fall, initial encounter; Y92.099 Unspecified place in other non-institutional residence as the place of occurrence of the external cause; Y93.9 Activity, unspecified; I25.10 Atherosclerotic heart disease of native coronary artery without angina pectoris; I50.9 Heart failure, unspecified; E11.9 Type 2 diabetes mellitus without complications; I10 Essential (primary) hypertension; N18.3 Chronic kidney disease, stage 3 (moderate); E66.9 Obesity, unspecified; Z95.1 Presence of aortocoronary bypass graft; Z85.51 Personal history of malignant neoplasm of bladder; M17.12 Unilateral primary osteoarthritis, left knee; M85.88 Other specified disorders of bone density and structure, other site; Z79.899 Other long term (current) drug therapy; Z88.6 Allergy status to analgesic agent; Z88.0 Allergy status to penicillin
CPT/HCPCS: J2270

== ENCOUNTER → 2018-01-22 | Outpatient (REF) | payer MEDICARE, OTHER ==
[2018-01-22 18:06] LABS: APPEARANCE, URINE CLEAR (CLEAR); BACTERIA, URINE AUTO NEGATIVE (NEGATIVE); BILIRUBIN, URINE AUTO NEGATIVE (NEGATIVE); BLOOD, URINE BLOOD NEGATIVE (NEGATIVE); COLOR, URINE STRAW (YELLOW); GLUCOSE, URINE (UA) AUTO NEGATIVE (NEGATIVE); KETONE, URINE AUTO NEGATIVE (NEGATIVE); LEUKOCYTE ESTERASE, URINE AUTO NEGATIVE (NEGATIVE); MUCUS, URINE SMALL (NEGATIVE); NITRITE, URINE AUTO NEGATIVE (NEGATIVE); PROTEIN, URINE AUTO NEGATIVE (NEGATIVE); RBC, URINE AUTO 0 /HPF (0-3); SPECIFIC GRAVITY URINE AUTO 1.008 (1.002-1.035); SQUAMOUS EPITHELIAL CELL UR AU 0 /HPF (0-6); UROBILINOGEN, URINE AUTO 0.2 mg/dL (0.0-2.0); WBC, URINE AUTO 2 /HPF (0-3)
== END ==
LOC: M SMT 16:55
DX: C67.9 Malignant neoplasm of bladder, unspecified (principal); Z79.899 Other long term (current) drug therapy
CPT/HCPCS: 81001

== ENCOUNTER → 2018-03-09 | Outpatient (REF) | payer MEDICARE, OTHER | LOC: M SMT 17:03 | DX: Z08 Encounter for follow-up examination after completed treatment for malignant neoplasm (principal); Z85.51 Personal history of malignant neoplasm of bladder | CPT/HCPCS: 88108 ==

== ENCOUNTER → 2018-05-20 | Outpatient (CLI) | payer MEDICARE, OTHER ==
[2018-05-20 15:22] LABS: ALBUMIN 4.1 GM/DL (3.2-5.2); ALBUMIN/GLOBULIN RATIO 1.11 (1.00-1.93); ALKALINE PHOSPHATASE 128 U/L (45-117); ALT/SGPT 26 U/L (12-78); ANION GAP 8 MEQ/L (8-16); AST/SGOT 18 U/L (7-37); BILIRUBIN,TOTAL 0.5 MG/DL (0.2-1.0); BLOOD UREA NITROGEN 73 MG/DL (7-18); CALCIUM LEVEL 7.7 MG/DL (8.8-10.2); CARBON DIOXIDE LEVEL 31 MEQ/L (21-32); CHLORIDE LEVEL 98 MEQ/L (98-107); CREATININE FOR GFR 3.24 MG/DL (0.70-1.30); GLUCOSE, FASTING 111 MG/DL (70-100); POTASSIUM SERUM 4.1 MEQ/L (3.5-5.1); SODIUM LEVEL 137 MEQ/L (136-145); TOTAL PROTEIN 7.8 GM/DL (6.4-8.2)
[2018-05-20 17:44] LABS: NT-PRO BNP 1194 PG/ML (<125)
== END ==
LOC: M WUC 13:23
DX: J20.9 Acute bronchitis, unspecified (principal); R06.02 Shortness of breath; N39.0 Urinary tract infection, site not specified
CPT/HCPCS: 80053

== ENCOUNTER → 2018-07-06 | Outpatient (REF) | payer MEDICARE, OTHER | LOC: M LAB REF 17:08 | DX: L08.9 Local infection of the skin and subcutaneous tissue, unspecified (principal) | CPT/HCPCS: 87186 ==

== ENCOUNTER → 2018-07-23 | Outpatient (CLI) | payer MEDICARE, OTHER ==
[2018-07-23 19:26] LABS: APPEARANCE, URINE CLEAR (CLEAR); BACTERIA, URINE AUTO NEGATIVE (NEGATIVE); BILIRUBIN, URINE AUTO NEGATIVE (NEGATIVE); BLOOD, URINE BLOOD NEGATIVE (NEGATIVE); COLOR, URINE STRAW (YELLOW); GLUCOSE, URINE (UA) AUTO NEGATIVE (NEGATIVE); KETONE, URINE AUTO NEGATIVE (NEGATIVE); LEUKOCYTE ESTERASE, URINE AUTO NEGATIVE (NEGATIVE); MUCUS, URINE SMALL (NEGATIVE); NITRITE, URINE AUTO NEGATIVE (NEGATIVE); PROTEIN, URINE AUTO NEGATIVE (NEGATIVE); RBC, URINE AUTO 0 /HPF (0-3); SPECIFIC GRAVITY URINE AUTO 1.009 (1.002-1.035); SQUAMOUS EPITHELIAL CELL UR AU 0 /HPF (0-6); UROBILINOGEN, URINE AUTO 0.2 mg/dL (0.0-2.0); WBC, URINE AUTO 0 /HPF (0-3)
[2018-07-23 19:31] LABS: HEMATOCRIT 38.9 % (42.0-52.0); MEAN CORPUSCULAR HEMOGLOBIN 31.4 pg (27.0-33.0); MEAN CORPUSCULAR HGB CONC 33.4 g/dl (32.0-36.5); PLATELET COUNT, AUTOMATED 173 10^3/uL (150-450); RED BLOOD COUNT 4.14 10^6/uL (4.30-6.10); RED CELL DISTRIBUTION WIDTH 13.2 % (11.5-14.5); WHITE BLOOD COUNT 23.4 10^3/uL (4.0-10.0)
[2018-07-23 20:00] LABS: ALBUMIN 3.7 GM/DL (3.2-5.2); ALBUMIN/GLOBULIN RATIO 1.06 (1.00-1.93); ALKALINE PHOSPHATASE 94 U/L (45-117); ALT/SGPT 32 U/L (12-78); ANION GAP 10 MEQ/L (8-16); AST/SGOT 22 U/L (7-37); BILIRUBIN,TOTAL 0.5 MG/DL (0.2-1.0); BLOOD UREA NITROGEN 86 MG/DL (7-18); CALCIUM LEVEL 7.6 MG/DL (8.8-10.2); CARBON DIOXIDE LEVEL 32 MEQ/L (21-32); CHLORIDE LEVEL 93 MEQ/L (98-107); CREATININE FOR GFR 2.93 MG/DL (0.70-1.30); GLOMERULAR FILTRATION RATE 22.5 (>42); GLUCOSE, FASTING 99 MG/DL (70-100); POTASSIUM SERUM 4.3 MEQ/L (3.5-5.1); SODIUM LEVEL 135 MEQ/L (136-145); TOTAL PROTEIN 7.2 GM/DL (6.4-8.2)
== END ==
LOC: M SMT 12:19
DX: Z85.51 Personal history of malignant neoplasm of bladder (principal); Z79.899 Other long term (current) drug therapy
CPT/HCPCS: 80053

== ENCOUNTER 2018-07-25 13:53 | Emergency (ER) | payer MEDICARE, OTHER | END 2018-07-25 15:53 | disposition home or self-care (01) | LOC: M ED 13:53 | DX: S76.111A Strain of right quadriceps muscle, fascia and tendon, initial encounter (principal); X58.XXXA Exposure to other specified factors, initial encounter; Y92.099 Unspecified place in other non-institutional residence as the place of occurrence of the external cause; Y93.89 Activity, other specified; Y99.9 Unspecified external cause status; I25.2 Old myocardial infarction; I25.10 Atherosclerotic heart disease of native coronary artery without angina pectoris; I10 Essential (primary) hypertension; E11.9 Type 2 diabetes mellitus without complications; Z95.1 Presence of aortocoronary bypass graft; Z79.899 Other long term (current) drug therapy; Z88.0 Allergy status to penicillin; Z88.8 Allergy status to other drugs, medicaments and biological substances; Z88.1 Allergy status to other antibiotic agents | CPT/HCPCS: 99284 ==

== ENCOUNTER 2018-08-14 01:19 | Emergency (ER) | payer MEDICARE, OTHER ==
[2018-08-14] MEDS: HYDROMORPHONE HCL 0.5 MG/ 0.5 ML SYRINGE (J1170 PER 1) IM ×6 (01:45→04:04)
== END 2018-08-14 04:07 | disposition home or self-care (01) ==
LOC: M ED 01:19
DX: M54.5 Low back pain (principal); G89.29 Other chronic pain; C67.9 Malignant neoplasm of bladder, unspecified; E11.9 Type 2 diabetes mellitus without complications; I10 Essential (primary) hypertension; D64.9 Anemia, unspecified; E78.5 Hyperlipidemia, unspecified; M51.9 Unspecified thoracic, thoracolumbar and lumbosacral intervertebral disc disorder; Z95.1 Presence of aortocoronary bypass graft; Z88.1 Allergy status to other antibiotic agents; Z88.6 Allergy status to analgesic agent; Z88.0 Allergy status to penicillin; Z79.899 Other long term (current) drug therapy; Z79.02 Long term (current) use of antithrombotics/antiplatelets; Z79.891 Long term (current) use of opiate analgesic
CPT/HCPCS: J1170

== ENCOUNTER 2018-08-19 09:46 | Emergency (ER) | payer MEDICARE, OTHER ==
[2018-08-19 10:37] LABS: BASO # 0.1 10^3/uL (0.0-0.2); BASO % 0.4 % (0.0-1.0); EOS # 0.2 10^3/uL (0.0-0.50); EOS % 1.8 % (0.0-3.0); HEMATOCRIT 35.8 % (42.0-52.0); HEMOGLOBIN 11.8 g/dl (13.5-17.5); LYMPH # 0.9 10^3/uL (1.5-4.5); LYMPH % 6.9 % (24.0-44.0); MEAN CORPUSCULAR HEMOGLOBIN 30.3 pg (27.0-33.0); MONO # 1.2 10^3/uL (0.0-0.8); MONO % 9.4 % (0.0-5.0); NEUTROPHILS # 10.2 10^3/uL (1.8-7.7); NEUTROPHILS % 77.5 % (36.0-66.0); PLATELET COUNT, AUTOMATED 165 10^3/uL (150-450); RED BLOOD COUNT 3.89 10^6/uL (4.30-6.10); RED CELL DISTRIBUTION WIDTH 12.8 % (11.5-14.5); WHITE BLOOD COUNT 13.1 10^3/uL (4.0-10.0)
[2018-08-19] MEDS: methylPREDNISolone INJ 125 MG/2 ML VIAL (J2930) IV (10:43)
[2018-08-19 10:49] LABS: INR 1.02; PROTHROMBIN TIME 13.5 SECONDS (12.1-14.4)
[2018-08-19] MEDS: IPRATROPIUM 0.5MG/ALBUTEROL 2.5MG INH SOL UD 3ML (DUONEB)(J7620) NEB ×2 (11:02→11:26)
[2018-08-19 11:13] LABS: ALBUMIN 3.7 GM/DL (3.2-5.2); ALBUMIN/GLOBULIN RATIO 1.16 (1.00-1.93); ALKALINE PHOSPHATASE 119 U/L (45-117); ALT/SGPT 37 U/L (12-78); ANION GAP 9 MEQ/L (8-16); AST/SGOT 22 U/L (7-37); BILIRUBIN,DIRECT 0.2 MG/DL (0.0-0.2); BILIRUBIN,TOTAL 0.5 MG/DL (0.2-1.0); BLOOD UREA NITROGEN 84 MG/DL (7-18); CALCIUM LEVEL 9.6 MG/DL (8.8-10.2); CARBON DIOXIDE LEVEL 30 MEQ/L (21-32); CHLORIDE LEVEL 99 MEQ/L (98-107); CPK CREATINE PHOSPHOKINASE 70 U/L (39-308); CREATININE FOR GFR 2.81 MG/DL (0.70-1.30); GLOMERULAR FILTRATION RATE 23.6 (>42); GLUCOSE, FASTING 179 MG/DL (70-100); NT-PRO BNP 1331 PG/ML (<125); POTASSIUM SERUM 4.5 MEQ/L (3.5-5.1); SODIUM LEVEL 138 MEQ/L (136-145); TOTAL PROTEIN 6.9 GM/DL (6.4-8.2); TROPONIN I < 0.02 NG/ML (< 0.10)
[2018-08-19 11:19] LABS: GOLD SPEC TUBE RECIEVED
== END 2018-08-19 15:17 | disposition home or self-care (01) ==
LOC: M ED 09:46
DX: R06.02 Shortness of breath (principal); R06.2 Wheezing; I51.7 Cardiomegaly; Z95.2 Presence of prosthetic heart valve; Z96.9 Presence of functional implant, unspecified; I50.9 Heart failure, unspecified; E11.9 Type 2 diabetes mellitus without complications; I10 Essential (primary) hypertension; E78.5 Hyperlipidemia, unspecified; E66.9 Obesity, unspecified; D64.9 Anemia, unspecified; F41.9 Anxiety disorder, unspecified; N18.9 Chronic kidney disease, unspecified; G89.29 Other chronic pain; M54.9 Dorsalgia, unspecified; Z85.51 Personal history of malignant neoplasm of bladder; Z87.891 Personal history of nicotine dependence; Z79.899 Other long term (current) drug therapy; Z88.0 Allergy status to penicillin; Z88.6 Allergy status to analgesic agent; Z88.1 Allergy status to other antibiotic agents
CPT/HCPCS: J2930

== ENCOUNTER → 2018-08-20 | Outpatient (REF) | payer MEDICARE, OTHER ==
[2018-08-20 14:25] LABS: APPEARANCE, URINE CLEAR (CLEAR); BACTERIA, URINE AUTO NEGATIVE (NEGATIVE); BILIRUBIN, URINE AUTO NEGATIVE (NEGATIVE); BLOOD, URINE BLOOD NEGATIVE (NEGATIVE); COLOR, URINE YELLOW (YELLOW); GLUCOSE, URINE (UA) AUTO NEGATIVE (NEGATIVE); KETONE, URINE AUTO NEGATIVE (NEGATIVE); LEUKOCYTE ESTERASE, URINE AUTO NEGATIVE (NEGATIVE); MUCUS, URINE SMALL (NEGATIVE); NITRITE, URINE AUTO NEGATIVE (NEGATIVE); PROTEIN, URINE AUTO NEGATIVE (NEGATIVE); RBC, URINE AUTO 0 /HPF (0-3); SPECIFIC GRAVITY URINE AUTO 1.009 (1.002-1.035); SQUAMOUS EPITHELIAL CELL UR AU 0 /HPF (0-6); UROBILINOGEN, URINE AUTO 0.2 mg/dL (0.0-2.0); WBC, URINE AUTO 1 /HPF (0-3)
== END ==
LOC: M SMT 13:25
DX: R31.9 Hematuria, unspecified (principal)
CPT/HCPCS: 81001

== ENCOUNTER → 2018-09-07 | Outpatient (REF) | payer MEDICARE, OTHER ==
[2018-09-07 19:32] LABS: FERRITIN 240 NG/ML (26-388); IRON (FE) 67 UG/DL (65-175); PERCENT SATURATION 20.5 % (19.7-50.0); TOTAL IRON BINDING CAPACITY 327 UG/DL (250-450)
== END ==
LOC: M LAB REF 17:30
DX: D50.9 Iron deficiency anemia, unspecified (principal)
CPT/HCPCS: 83550

== ENCOUNTER 2018-09-09 12:27 | Outpatient (RCR) | payer MEDICARE, OTHER | END 2018-09-25 | LOC: M OT 12:27 | DX: M18.0 Bilateral primary osteoarthritis of first carpometacarpal joints (principal) | CPT/HCPCS: 97165 ==

== ENCOUNTER → 2018-09-10 | Outpatient (CLI) | payer MEDICARE, OTHER ==
[2018-09-10 17:26] LABS: MAGNESIUM LEVEL 2.7 MG/DL (1.8-2.4)
== END ==
LOC: M SMT 13:13
DX: I50.32 Chronic diastolic (congestive) heart failure (principal); M79.646 Pain in unspecified finger(s); E83.42 Hypomagnesemia
CPT/HCPCS: 83735

== ENCOUNTER 2018-09-25 10:22 | Observation (INO) | payer MEDICARE, OTHER ==
[~2018-09-25] VITALS: Ht 167.6 cm; Wt 108.2 kg
[~2018-09-25 10:22] MED LIST changes: -AMLO5TAB2 PO; +AMLO5TAB6 PO; +CALC1CAP31 PO; +FEBU40TA PO; +FLOM0.4C39 PO; -FLOM5CAP PO; +LACT10SO3; -LORA10TA2 PO; +LORA10TA3 PO; -LOSA100T36 PO; +LOSA100T50 PO; +MOVA1TAB2 PO; +OXYC10TA3 PO; -OXYC1TAB16 PO; +PAXI20TA29 PO; +SPIR-10 PO; -SPIR25TA2 PO; +TIOT18INH INH; +TORS100T PO; +ULOR80TA PO; +ZOFR4TAB14 PO; -ZOFR4TAB3 PO
[2018-09-25 10:48] LABS: VENOUS BASE EXCESS 4.3 (-2.0-2.0); VENOUS HCO3 31.4 MEQ/L (23.0-27.0); VENOUS O2 SATURATION 75.6 % (60.0-80.0); VENOUS PARTIAL PRESSURE CO2 58.9 mmHg (38.0-50.0); VENOUS PARTIAL PRESSURE O2 43.4 mmHg (30.0-50.0); VENOUS PH 7.344 UNITS (7.330-7.430); VENOUS STANDARD HCO3 27.9 MEQ/L; VENOUS TOTAL CO2 33.2 MEQ/L (24.0-28.0)
[2018-09-25] MEDS ORDERED: SPIR12.9 INH (10:53)
[2018-09-25 10:54] LABS: BASO % 0.3 % (0.0-1.0); EOS # 0.5 10^3/uL (0.0-0.50); EOS % 4.3 % (0.0-3.0); HEMATOCRIT 32.3 % (42.0-52.0); HEMOGLOBIN 10.5 g/dl (13.5-17.5); LYMPH # 1.7 10^3/uL (1.5-4.5); LYMPH % 15.8 % (24.0-44.0); MEAN CORPUSCULAR HEMOGLOBIN 30.7 pg (27.0-33.0); MEAN CORPUSCULAR HGB CONC 32.5 g/dl (32.0-36.5); MEAN CORPUSCULAR VOLUME 94.4 fl (80.0-96.0); MONO # 0.8 10^3/uL (0.0-0.8); NEUTROPHILS # 7.3 10^3/uL (1.8-7.7); NEUTROPHILS % 69.5 % (36.0-66.0); PLATELET COUNT, AUTOMATED 134 10^3/uL (150-450); RED BLOOD COUNT 3.42 10^6/uL (4.30-6.10); WHITE BLOOD COUNT 10.5 10^3/uL (4.0-10.0)
[2018-09-25] MEDS ORDERED: IPRATROPIUM 0.5MG/ALBUTEROL 2.5MG INH SOL UD 3ML (DUONEB)(J7620) NEB ONE ×2 (11:00→13:00)
[2018-09-25 11:07] LABS: INR 1.05; PROTHROMBIN TIME 13.9 SECONDS (12.1-14.4)
[2018-09-25 11:33] LABS: ALT/SGPT 25 U/L (12-78); BILIRUBIN,DIRECT 0.2 MG/DL (0.0-0.2); BILIRUBIN,TOTAL 0.6 MG/DL (0.2-1.0); BLOOD UREA NITROGEN 75 MG/DL (7-18); CALCIUM LEVEL 8.8 MG/DL (8.8-10.2); CARBON DIOXIDE LEVEL 32 MEQ/L (21-32); CHLORIDE LEVEL 98 MEQ/L (98-107); CPK CREATINE PHOSPHOKINASE 76 U/L (39-308); GLOMERULAR FILTRATION RATE 18.3 (>42); GLUCOSE, FASTING 112 MG/DL (70-100); MB/CK RELATIVE INDEX 2.89 (< OR =4); NT-PRO BNP 2620 PG/ML (<125); SODIUM LEVEL 139 MEQ/L (136-145); TROPONIN I < 0.02 NG/ML (< 0.10)
[2018-09-25] MEDS ORDERED: methylPREDNISolone INJ 125 MG/2 ML VIAL (J2930) IV ONE (12:00)
[2018-09-25] MEDS ORDERED: NS 1,000 ML IV SCH (13:00)
[2018-09-25] MEDS ORDERED: ALBU83IN INH (14:14)
[2018-09-25] MEDS ORDERED: CALC500T36 PO (14:14)
[2018-09-25] MEDS: NS 1,000 ML IV SCH (14:15)
[2018-09-25] MEDS ORDERED: CETI10TA PO (14:15)
[2018-09-25] MEDS ORDERED: SENN18TA PO (14:15)
[2018-09-25] MEDS ORDERED: CLOB0.057 TOP (14:15)
[2018-09-25] MEDS ORDERED: hydrOXYzine 25 MG TAB PO PRN (14:45)
[2018-09-25] MEDS ORDERED: NITROGLYCERIN 0.4 MG SUBL TABLET SL PRN (14:45)
[2018-09-25] MEDS ORDERED: ALBUTEROL SULFATE 2.5 MG/0.5 ML INH NEB SOLN INH PRN (14:45)
[2018-09-25] MEDS ORDERED: LevoFLOXacin IV 500 MG in APPROPRIATE DILUENT 1 EA IV ONE (15:00)
[2018-09-25] MEDS: IPRATROPIUM 0.5MG/ALBUTEROL 2.5MG INH SOL UD 3ML (DUONEB)(J7620) NEB SCH ×2 (15:16→22:36)
--- NOTE | 2018-09-25 15:32 | HPE ---
DATE OF ADMISSION: 09/25/2018 A 73-year-old male with past medical history of coronary artery disease status post coronary artery bypass graft (CABG), chronic kidney disease (CKD), III, chronic diastolic heart failure, hypertension, hyperlipidemia, and [id number] chronic obstructive pulmonary disease (COPD) who presents to the emergency room with cough, nonproductive in nature, and shortness of breath for the last 4 days. Patient just came back from [place] at 3 a.m. Apparently he did not have his nebulizer treatments during that time, and he has been gone for 11 days. Approximately 4 days ago he started having this dry cough and shortness of breath and did not have any rescue breather. He tolerated this for the last 4 days, came home, and then came to the emergency room (ER) early this morning for evaluation. In the ER he was given Solu-Medrol 125 intravenous (IV) push and two nebulizer treatments with profound relief. Patient still complains of mild shortness of breath and was having a dry cough periodically while interviewing him. He denies any chest pain, palpitations, or diaphoresis. He will be admitted for further management. PAST MEDICAL HISTORY: 1. Chronic diastolic heart failure. 2. Chronic back pain with spinal stimulator. 3. History of CKD, III. 4. Coronary artery disease, status post CABG. 5. 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 6. History of bladder cancer (CA) with multiple tumor resections and status post intravesicular chemotherapy and Bacillus Calmette-Theodore (BCG) treatments. 7. History of diabetes type 2. 8. Hypertension. 9. Hyperlipidemia. 10. Morbid obesity. 11. Anemia of chronic disease. ALLERGIES: He has drug allergies to AMPICILLIN, ASPIRIN, and ROCEPHIN. FAMILY HISTORY: Negative for early coronary disease. SOCIAL HISTORY: Patient was a 40 pack-year smoker. Quit 15 years ago. Denies alcohol or illicit drugs. HOME MEDICATIONS: - albuterol via nebulizer as needed - alprazolam 0.25 mg orally four times a day as needed - ascorbic acid 500 mg orally daily - atorvastatin 20 mg orally at bedtime - Coreg 6.25 mg orally twice daily - cetirizine 10 mg orally daily - cholecalciferol 4000 units orally daily - Cinacalcet 30 mg orally weekly - Plavix 75 mg orally daily - Uloric 80 mg orally at bedtime - hydroxyzine 25 mg orally twice daily - Lactobacillus one tablet orally at bedtime - morphine sulfate 15 mg orally every 8 hours as needed - multivitamin one tablet orally daily - oyster shell calcium 500 mg orally daily - paroxetine 2 mg orally at bedtime - potassium chloride 20 mEq orally daily - senna one tablet orally at bedtime - spironolactone 25 mg orally at bedtime - torsemide 50 mg orally three times a day REVIEW OF SYSTEMS: Negative for all 10 major systems except what has been mentioned in the history of present illness (HPI). VITAL SIGNS: The patient 118/84, pulse 87 and regular, respiratory rate is 16, temperature is 96, oxygen saturation 94% on room air. HEAD: Atraumatic, normocephalic. NECK: Supple. No jugular venous distention (JVD). LUNGS: Late expiratory wheezes bilaterally. HEART: S1, S2 audible. No murmurs appreciated. ABDOMEN: Soft. Positive bowel sounds. Pedal edema +2. SKIN: Intact. NEUROLOGIC: Patient awake, alert, oriented times three. LABORATORY DATA: WBC 10.5, hemoglobin 10.5, hematocrit 32.3, platelets 134,000. Sodium 139, potassium 4.0, chloride 198, CO2 of 32, anion gap 9, BUN 75, creatinine 3.5, troponin is less than 0.02. TSH is 1.7. Chest x-ray does not show any pulmonary vascular congestion or consolidation. IMPRESSION: 1. Chronic obstructive pulmonary disease (COPD) exacerbation. 2. Acute bronchitis. 3. Acute kidney injury (SANDRA) on chronic kidney disease (CKD). PLAN: Patient will be admitted to the medical/surgical floor, and we will start the patient on intravenous (IV) Levaquin 500 mg times one and then 250 renal dose daily. I am going to continue him on DuoNeb every 4 as needed via nebulizer, put him on Solu-Medrol 40 IV every 8, and will follow his progress. As far as SANDRA and CKD are concerned, he is clearly dry and dehydrated. Patient has been taking his diuretics and not eating very well for the last 48 hours. Will give him gentle hydration, normal saline at 75 an hour, and encourage oral fluid intake. Will follow basic metabolic panel (BMP) in the morning and follow the BUN and creatinine tends. His baseline creatinine is 2.5. Will hold his diuretics, continue his other preadmission medications, and follow his care on the medical/surgical floor.
[2018-09-25 17:00] VITALS: BP 147/80
[2018-09-25] MEDS: POTASSIUM CHLORIDE 10 MEQ SR TABLET PO SCH (17:31)
[2018-09-25] MEDS: CLOPIDOGREL 75 MG TAB PO SCH (17:31)
[2018-09-25] MEDS: MORPHINE 30 MG TAB **MSIR PO PRN (17:33)
[2018-09-25] MEDS: methylPREDNISolone INJ 40 MG/1 ML VIAL (J2920) IV SCH (20:04)
[2018-09-25] MEDS: ATORVASTATIN 20 MG TAB PO SCH (21:08)
[2018-09-25] MEDS: CARVedilol 6.25 MG TAB PO SCH (21:09)
[2018-09-25] MEDS: PARoxetine 20 MG TAB PO SCH (21:09)
[2018-09-25] MEDS: SENNA 8.6 MG TAB (SENOKOT) PO SCH (21:09)
[2018-09-25] MEDS: FEBUXOSTAT 40 MG TABLET (ULORIC) PO SCH (21:09)
[2018-09-25] MEDS: CLOBETASOL PROPIONATE EMOLLIENT 0.05% CR 60 GM TOP SCH (21:10)
[2018-09-25] MEDS: HEPARIN SOD (PORCINE) 5000 UNITS/ML VIAL SC SCH (21:10)
[2018-09-25] MEDS: ALPRAZolam 0.25 MG TAB PO PRN (21:22)
[2018-09-25 22:00] VITALS: BP 146/82
[2018-09-26] MEDS: methylPREDNISolone INJ 40 MG/1 ML VIAL (J2920) IV SCH ×3 (03:16→20:08)
[2018-09-26] MEDS: IPRATROPIUM 0.5MG/ALBUTEROL 2.5MG INH SOL UD 3ML (DUONEB)(J7620) NEB SCH ×5 (04:00→20:41)
[2018-09-26] MEDS: NS 1,000 ML IV SCH (05:42)
[2018-09-26] MEDS: HEPARIN SOD (PORCINE) 5000 UNITS/ML VIAL SC SCH ×3 (05:48→21:33)
[2018-09-26 06:00] VITALS: BP 135/71
[2018-09-26 06:09] LABS: ALBUMIN 3.3 GM/DL (3.2-5.2); BILIRUBIN,TOTAL 0.5 MG/DL (0.2-1.0); CALCIUM LEVEL 8.1 MG/DL (8.8-10.2); CREATININE FOR GFR 3.32 MG/DL (0.70-1.30); GLOMERULAR FILTRATION RATE 19.5 (>42); POTASSIUM SERUM 4.3 MEQ/L (3.5-5.1); TOTAL PROTEIN 6.9 GM/DL (6.4-8.2)
--- NOTE | 2018-09-26 07:33 | ECGEPIP ---
Stationary ECG Study [facility] - ED Test Date: 2018-09-25 Pat Name: VEDA BARRERA Department: Room: - Gender: M Home Service Director: miriam : 1945 Requested By: Marie Soriano Order Number: [id number] Reading MD: Patrick Gee Measurements Intervals [place] Rate: 87 P: 28 AK: 191 QRS: 4 QRSD: 148 T: 18 QT: 403 QTc: 487 Interpretive Statements SINUS RHYTHM WITH OCCASIONAL VENTRICULAR PREMATURE COMPLEXES POSSIBLE LEFT ATRIAL ENLARGEMENT RIGHT BUNDLE BRANCH BLOCK POOR R WAVE PROGRESSION SIMILAR TO 08/19/18 Electronically Signed On 09-26-2018 7:33:46 EST by Patrick Gee
[2018-09-26] MEDS: OYSTER SHELL CALCIUM 500 MG TAB PO SCH (08:44)
[2018-09-26] MEDS: CETIRIZINE (ZyrTEC) 10 MG TAB PO SCH (08:44)
[2018-09-26] MEDS: MULTIVITAMINS/MINERALS THERAP 1 TAB PO SCH (08:44)
[2018-09-26] MEDS: CLOPIDOGREL 75 MG TAB PO SCH (08:44)
[2018-09-26] MEDS: VITAMIN D 1,000 INTERNATIONAL UNITS TABLET PO SCH (08:44)
[2018-09-26] MEDS: POTASSIUM CHLORIDE 10 MEQ SR TABLET PO SCH (08:45)
[2018-09-26] MEDS: CARVedilol 6.25 MG TAB PO SCH ×2 (08:49→21:32)
[2018-09-26] MEDS ORDERED: ASCORBIC ACID 500 MG TAB PO SCH (09:00)
[2018-09-26] MEDS: MORPHINE 30 MG TAB **MSIR PO PRN (09:02)
[2018-09-26 09:43] LABS: SODIUM,RANDOM URINE 13 MEQ/L
--- NOTE | 2018-09-26 09:58 | REP ---
Portable chest, 09:35 a.m., single PA view, the patient sitting: The study is mislabeled as to left and right. There are no focal infiltrates or pleural effusions. There is mild interstitial coarsening, unchanged. There are sternotomy wires, unchanged. Cardiac size is upper normal, unchanged. Spinal stimulator is again noted, unchanged. Impression: Interstitial coarsening, acute, chronic, combination. No interval change. Electronically Signed by Toni Ramirez MD 09/26/2018 09:49 A
[2018-09-26 10:11] LABS: APPEARANCE, URINE CLEAR (CLEAR); BACTERIA, URINE AUTO NEGATIVE (NEGATIVE); BILIRUBIN, URINE AUTO NEGATIVE (NEGATIVE); BLOOD, URINE BLOOD NEGATIVE (NEGATIVE); COLOR, URINE YELLOW (YELLOW); GLUCOSE, URINE (UA) AUTO NEGATIVE (NEGATIVE); KETONE, URINE AUTO NEGATIVE (NEGATIVE); LEUKOCYTE ESTERASE, URINE AUTO NEGATIVE (NEGATIVE); MUCUS, URINE SMALL (NEGATIVE); NITRITE, URINE AUTO NEGATIVE (NEGATIVE); PROTEIN, URINE AUTO NEGATIVE (NEGATIVE); RBC, URINE AUTO 0 /HPF (0-3); SPECIFIC GRAVITY URINE AUTO 1.012 (1.002-1.035); SQUAMOUS EPITHELIAL CELL UR AU 0 /HPF (0-6); UROBILINOGEN, URINE AUTO 0.2 mg/dL (0.0-2.0); WBC, URINE AUTO 1 /HPF (0-3)
--- NOTE | 2018-09-26 13:26 | IPNPDOC ---
Text Note Date of Service The patient was seen on 09/26/18. NOTE Subjective: Patient states his dyspnea has resolved. He notes that his dyspnea improved with nebulizer therapy. Denies any chest pain or palpitations. No syncopal episodes. Objective: Vitals: (see below) General: No acute distress, laying comfortably in bed. HEENT: Moist mucous membranes. Neck: No JVD or lymphadenopathy Cardiac: RRR, No murmurs Pulm: Minimal crackles at the bases b/l. No wheezing, rhonchi Abd: NT/ND + BS Ext: 1+ pitting edema bilateral lower extremity. No cyanosis Labs (see below) Images: Chest x-ray 09/25/18 Impression: Interstitial coarsening, acute, chronic, combination. No interval change. Assessment/Plan 1. Acute COPD exacerbation improved. Continue nebs and steroids. On Levaquin, however will only do a short course. 2. Acute kidney injury and chronic kidney disease- nephrology has been consulted. IV fluids have been discontinued as patient is now hypokalemic. Urine lites sent. Urinalysis 3. Chronic diastolic heart failure on home diuretics 4. History of CAD status post CABG continue home meds 5. 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 Diabetes mellitus continue current insulin regimen 7. History of hypertension controlled 8. History of hyperlipidemia on statin 9. Anemia of chronic disease will need outpatient follow-up 10. Morbid obesity, gaining care 11. History of chronic back pain with spinal stimulator 12. History of bladder cancer with multiple resections status post intravesicular chemotherapy and BCG DVT prophy: Heparin subcutaneous VS,Fishbone, I+O VS, Fishbone, I+O Laboratory Tests 09/26/18 05:28 Calcium Level 8.1 L, Aspartate Amino Transf (AST/SGOT) 12, Alanine Aminotransferase (ALT/SGPT) 21, Alkaline Phosphatase 81, Total Bilirubin 0.5, Total Protein 6.9, Albumin 3.3 Vital Signs Date Time Temp Pulse Resp B/P (MAP) Pulse Ox O2 Delivery O2 Flow Rate FiO2 09/26/18 09:32 18 09/26/18 08:49 94 137/76 09/26/18 06:00 97.1 94 Nasal Cannula 2.0 I&O- Last 24 Hours up to 6 AM 09/26/18 06:00 Intake Total 1775 ml Output Total 500 ml Balance 1275 ml DANIEL MINAYA MD Sep 26, 2018 13:26
[2018-09-26 14:00] VITALS: BP 126/72
[2018-09-26] MEDS: TORSEMIDE (DEMADEX) 50 MG PER 1/2 TAB PO SCH (17:43)
[2018-09-26] MEDS ORDERED: LevoFLOXacin IV 250 MG in APPROPRIATE DILUENT 1 EA IV SCH (18:00)
--- NOTE | 2018-09-26 18:46 | CR ---
DATE OF CONSULTATION: 09/26/2018 REQUESTING PHYSICIAN: Dr. Kwabena Fernando CONSULTING PHYSICIAN: Dr. Carrasco REASON FOR CONSULTATION: Management of acute kidney injury superimposed on chronic kidney disease, stage IV. CHIEF COMPLAINT: Progressive shortness of breath. HISTORY OF PRESENT ILLNESS: Mr. Maik Mckeon is a 73-year-old male with a past medical history of chronic kidney disease, stage IV, with a baseline creatinine of 2.4 as of August 2018. He follows up with Dr. Hope in the nephrology clinic. Multiple other comorbidities, including chronic diastolic congestive heart failure, chronic obstructive pulmonary disease (COPD), history of aortic and mitral valve replacement, multiple other comorbidities as mentioned below. Patient flew in from [place] 1 day before presenting to the hospital. He was feeling very short of breathing with decreased hearing, cough, which is known, productive in nature. He presented to the emergency room. He was actively found to be in acute COPD exacerbation with wheezing. He was started on intravenous (IV) steroids and nebulizations. Patient was also found to be in acute renal failure with a creatinine of 3.5, which is higher than his baseline. He was given IV fluid hydration. Nephrology service was called for further help in the management of this patient with acute kidney injury superimposed on chronic kidney disease, stage III, and history of heart failure. I saw and evaluated the patient today morning at the bedside. He was sitting up in the bed. He reported that his shortness of breath is better today as compared with yesterday. His reported that patient looks much better today after getting steroids and nebulizations. PAST MEDICAL HISTORY: 1. Chronic kidney disease, stage IV, baseline creatinine of 2.4. 2. Chronic diastolic congestive heart failure. 3. Chronic lower back pain. 4. Coronary artery disease, status post coronary artery bypass graft (CABG) in the past. 5. 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 6. History of cancer (CA) of bladder, status post multiple resections and Bacillus Calmette-Theodore (BCG) treatments. 7. Diabetes mellitus, type 2. 8. Hypertension. 9. Hyperlipidemia. 10. Morbid obesity. 11. Anemia and chronic kidney disease. 12. COPD. PAST SURGICAL HISTORY: Status post aortic and mitral valve replacement because of infective endocarditis. Status post coronary artery bypass grafting. ALLERGIES: Patient is allergic to AMPICILLIN, ASPIRIN, PENICILLINS, and CEFTRIAXONE. FAMILY HISTORY: No significant family history of end-stage renal disease requiring hemodialysis. SOCIAL HISTORY: Patient is a former smoker. He quit about 15 years ago. Patient's reports that he possibly has COPD, but he is being classified as restrictive lung disease. He denies any illicit drug abuse or alcohol abuse. HOME MEDICATIONS: Include: - albuterol - alprazolam - vitamin C 500 mg daily - Lipitor 20 mg daily - Coreg 6.25 mg by mouth twice a day - cetirizine 10 mg daily - vitamin D 4000 units daily - Sensipar 30 mg by mouth once a week - Plavix 75 mg daily - Uloric 80 mg at bedtime - hydroxyzine as needed - morphine sulfate 15 mg every 8 hours as needed - multivitamin - calcium tablet 500 mg daily - paroxetine at bedtime - potassium chloride 20 mEq daily - spironolactone 25 mg daily - torsemide 50 mg every 8 hours REVIEW OF SYSTEMS: CONSTITUTIONAL: Patient reports feeling weak and tired. EYES: He denies any blurry vision, double vision. ENT: He denies any dysphagia or odynophagia. CARDIOVASCULAR: He reports history of congestive heart failure (CHF) and reports lower extremity edema. RESPIRATORY: He came in with progressive shortness of breath but reports it is getting better. GASTROINTESTINAL: He denies any nausea or vomiting. GENITOURINARY: He denies any dysuria or hematuria but reports history of CA bladder. MUSCULOSKELETAL: He reports lower back pain. CENTRAL NERVOUS SYSTEM: He denies any strokes or seizures. SKIN: He denies any rashes or ulcers. All other review of systems is negative. PHYSICAL EXAMINATION: GENERAL: Patient is awake, alert, oriented times three, sitting up in the bed. VITAL SIGNS: Temperature is 97.1 degrees Fahrenheit, blood pressure 137/76, pulse is 94, respiratory rate of 19, saturating 94% on nasal cannula at 2 liters. HEAD AND NECK: Extraocular muscles intact. Pupils equally round and reactive to light. Mucous membranes are moist. Neck is supple. There is moderately elevated jugular venous distention (JVD). CARDIOVASCULAR: S1, S2, regular rate. Edema 1+ of the bilateral lower extremities. RESPIRATORY: Mildly decreased breath sounds at the bases with mild expiratory rhonchi. ABDOMEN: Soft. Positive bowel sounds. Nontender. No organomegaly. MUSCULOSKELETAL: No clubbing or cyanosis. CENTRAL NERVOUS SYSTEM: No focal deficit. Power is 5/5 in all extremities. LYMPH NODES: No significant cervical, axillary, or inguinal lymphadenopathy. LABORATORY REVIEW: CBC showed WBC of 10.5, hemoglobin 10.5, platelets of 134. INR is 1. Urinalysis done yesterday showed no leukocyte esterase. No blood. No protein. ABG shows pH 7.34, pCO2 of 58, pO2 of 43, bicarbonate of 31, oxygen saturation 75%. BMP done on admission showed sodium 139, potassium 4.4, chloride 98, bicarbonate 32, BUN 75, creatinine 3.5, glucose 112. ProBNP was 2620. Repeat BMP done today morning showed sodium 141, potassium 4.3, chloride 104, bicarbonate 28, BUN 84, creatinine is 3.3, calcium is 8.1. Microbiology: Blood cultures are negative. Respiratory viral panel is negative so far. IMAGING: A chest x-ray done today morning showed interstitial coarsening, which is acute on chronic. Sternotomy wires were visible. There were no focal infiltrates or effusions. CURRENT INPATIENT MEDICATIONS: Patient's medications include: - Levaquin 250 mg IV daily - He was on normal saline, which was stopped today morning. - He is on DuoNeb nebulizations. - I stopped the vitamin C. - Lipitor 20 mg daily. - Coreg 6.25 mg by mouth twice a day - Zyrtec 10 mg daily - Plavix 75 mg by mouth daily - Uloric 80 mg daily - heparin subcutaneous - Solu-Medrol 40 mg IV every 8 hours - morphine sulfate 15 mg every 8 hours as needed - multivitamin one tablet daily - oyster shell calcium 500 mg daily - paroxetine 20 mg daily - potassium chloride 20 mEq daily - Senokot one tablet at bedtime - I have restarted the patient on spironolactone 25 mg starting tomorrow morning. - I have restarted him on torsemide 50 mg by mouth twice a day starting tonight. - He continues to be on vitamin D 4000 units daily. ASSESSMENT: A 73-year-old male with a history of chronic kidney disease, stage IV, chronic diastolic congestive heart failure, history of coronary artery disease, status post coronary artery bypass graft (CABG), admitted at this time with acute chronic obstructive pulmonary disease (COPD) exacerbation, acute kidney injury superimposed on chronic kidney disease, stage IV. PLAN: 1. Acute kidney injury superimposed on chronic kidney disease, stage IV. There is slight improvement in the renal function; however, patient does not need any IV fluid hydration at this time. Patient usually has cardiorenal syndrome. I see evidence of lower extremity edema. I am actually restarting his diuretic. He is on torsemide 50 mg three times a day. I am restarting at a lower dose at 50 mg twice a day. Restart spironolactone as well at 25 mg by mouth daily. 2. Acute COPD exacerbation. Patient's symptoms are getting better. He is currently on IV steroids, IV Levaquin, and nebulizations. Symptomatically he is feeling better. 3. Chronic diastolic congestive heart failure. Patient has history of diastolic congestive heart failure (CHF) according to records. Echocardiogram done in 2017 showed left ventricular systolic function was 65-70%. Repeat echo results are not available. There is evidence of edema on clinical exam today. I have stopped the IV fluids. Continue Coreg 6.25 mg by mouth twice a day. As mentioned above, I have restarted the home dose of torsemide and spironolactone, but the frequency of torsemide has been decreased to twice a day. Continue potassium chloride 20 mEq daily. 4. 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 Continue current dose of Uloric 80 mg by mouth daily. 5. Anemia and chronic kidney disease. Hemoglobin is 10.5, which is optimal. No need of erythropoietin-stimulating agents (SELVIN) at this point. Thank you for involving me in the care of this patient. I shall be happy to follow the patient along with you tomorrow morning.
[2018-09-26] MEDS: ATORVASTATIN 20 MG TAB PO SCH (21:31)
[2018-09-26] MEDS: ALPRAZolam 0.25 MG TAB PO PRN (21:31)
[2018-09-26] MEDS: PARoxetine 20 MG TAB PO SCH (21:31)
[2018-09-26] MEDS: FEBUXOSTAT 40 MG TABLET (ULORIC) PO SCH (21:31)
[2018-09-26] MEDS: SENNA 8.6 MG TAB (SENOKOT) PO SCH (21:31)
[2018-09-26] MEDS: CLOBETASOL PROPIONATE EMOLLIENT 0.05% CR 60 GM TOP SCH (21:32)
[2018-09-26 22:00] VITALS: BP 126/73
[2018-09-27] MEDS: IPRATROPIUM 0.5MG/ALBUTEROL 2.5MG INH SOL UD 3ML (DUONEB)(J7620) NEB SCH ×4 (00:29→11:08)
[2018-09-27] MEDS ORDERED: SODIUM CHLORIDE NASAL 0.65% SPRAY BTL (OCEAN) PRN (01:00)
[2018-09-27] MEDS: methylPREDNISolone INJ 40 MG/1 ML VIAL (J2920) IV SCH ×2 (04:17→12:04)
[2018-09-27] MEDS: HEPARIN SOD (PORCINE) 5000 UNITS/ML VIAL SC SCH (05:37)
[2018-09-27 06:00] VITALS: BP 109/67
[2018-09-27] MEDS: POTASSIUM CHLORIDE 10 MEQ SR TABLET PO SCH (08:34)
[2018-09-27] MEDS: MULTIVITAMINS/MINERALS THERAP 1 TAB PO SCH (08:34)
[2018-09-27] MEDS: CETIRIZINE (ZyrTEC) 10 MG TAB PO SCH (08:34)
[2018-09-27] MEDS: CLOPIDOGREL 75 MG TAB PO SCH (08:34)
[2018-09-27] MEDS: VITAMIN D 1,000 INTERNATIONAL UNITS TABLET PO SCH (08:34)
[2018-09-27] MEDS: OYSTER SHELL CALCIUM 500 MG TAB PO SCH (08:35)
[2018-09-27 08:41] VITALS: BP 139/76
[2018-09-27] MEDS: CARVedilol 6.25 MG TAB PO SCH (08:41)
[2018-09-27] MEDS: TORSEMIDE (DEMADEX) 50 MG PER 1/2 TAB PO SCH (08:41)
[2018-09-27 08:49] LABS: HEMOGLOBIN 10.2 g/dl (13.5-17.5); MEAN CORPUSCULAR HEMOGLOBIN 30.8 pg (27.0-33.0); MEAN CORPUSCULAR HGB CONC 31.9 g/dl (32.0-36.5); MEAN CORPUSCULAR VOLUME 96.7 fl (80.0-96.0); PLATELET COUNT, AUTOMATED 149 10^3/uL (150-450); RED BLOOD COUNT 3.31 10^6/uL (4.30-6.10); WHITE BLOOD COUNT 13.6 10^3/uL (4.0-10.0)
[2018-09-27] MEDS ORDERED: SPIRONOLACTONE 25 MG TAB PO SCH (09:00)
[2018-09-27 09:07] LABS: CALCIUM LEVEL 8.5 MG/DL (8.8-10.2); CREATININE FOR GFR 3.17 MG/DL (0.70-1.30); GLOMERULAR FILTRATION RATE 20.5 (>42)
[2018-09-27] MEDS ORDERED: TORS100T PO (11:57)
[2018-09-27] MEDS ORDERED: PRED10TA2 PO (11:57)
--- NOTE | 2018-09-27 13:56 | DS.PDOC ---
Discharge Summary General Date of Admission Sep 25, 2018 at 13:51 Date of Discharge 09/27/18 Attending Physician: DANIEL MINAYA MD Discharge Summary PROCEDURES PERFORMED DURING STAY: None. ADMITTING/DISCHARGE DIAGNOSES: 1. Acute COPD exacerbation 2. Acute kidney injury and chronic kidney disease 3. History of chronic diastolic heart failure 4. History of CAD status post CABG 5. History of endocarditis mitral and aortic valve replacements 6. History of diabetes mellitus 7. Hypertension 8. Hyperlipidemia 9. History of morbid obesity complicated care 10. History of chronic back pain with spinal stimulator 11. History of bladder cancer with multiple resections status post intravesic ular chemotherapy and BCG COMPLICATIONS/CHIEF COMPLAINT: Shortness of breath and cough HISTORY OF PRESENT ILLNESS/HOSPITAL COURSE: This is a 73-year-old male with extensive past medical history as noted above who presents complaining of shortness of breath and cough. Patient was noted to have an acute COPD exacerbation, and history with nebs, steroids, and tolerated therapy well. The patient was also noted to have acute kidney injury for which nephrology was consulted. His diuretics were decreased and his renal function is improving. Dr. Carrasco recommended decreasing his torsemide to 50 twice a day, continue external lactone, as well as discontinuing the potassium altogether. He will f ollow-up with the patient one week. Patient is now hemodynamically stable and will be discharged home with outpatient follow-up. DISCHARGE MEDICATIONS: Please see below. ALLERGIES: Please see below. PHYSICAL EXAMINATION ON DISCHARGE: Vitals: (see below) General: No acute distress, laying comfortably in bed. HEENT: Moist mucous membranes. Neck: No JVD or lymphadenopathy Cardiac: RRR, No murmurs Pulm: Minimal crackles at the bases b/l. No wheezing, rhonchi Abd: NT/ND + BS Ext: 1+ pitting edema bilateral lower extremity. No cyanosis LABORATORY DATA: Please see below. PROGNOSIS: Fair ACTIVITY: As tolerated. DIET: Low-sodium diet, consistent carb diet, renal diet DISCHARGE PLAN/DISPOSITION: Home DISCHARGE INSTRUCTIONS: 1. Follow-up with PCP and Dr. Carrasco in one week. Return to the ED symptoms worsen. DISCHARGE CONDITION: Stable. TIME SPENT ON DISCHARGE: Greater than 30 minutes. Vital Signs/I&Os Vital Signs Date Time Temp Pulse Resp B/P (MAP) Pulse Ox O2 Delivery O2 Flow Rate FiO2 09/27/18 09:34 90 Room Air 12/2/18 08:41 94 139/76 09/27/18 06:00 97.6 18 09/26/18 14:00 2.0 I&O- Last 24 Hours up to 6 AM 09/27/18 06:00 Intake Total 1320 ml Output Total 1450 ml Balance -130 ml Laboratory Data Labs 24H Laboratory Tests 2 09/27/18 08:14: Nucleated Red Blood Cells % (auto) 0.0, Anion Gap 7L, Glomerular Filtration Rate 20.5L, Blood Urea Nitrogen 102H, Creatinine 3.17H, Sodium Level 136, Potassium Level 5.0, Chloride Level 99, Carbon Dioxide Level 30, Calcium Level 8.5L CBC/BMP Laboratory Tests 09/27/18 08:14 Red Blood Count 3.31 L, Mean Corpuscular Volume 96.7 H, Mean Corpuscular Hemoglobin 30.8, Mean Corpuscular Hemoglobin Concent 31.9 L, Red Cell Distribution Width 15.7 H, Calcium Level 8.5 L Microbiology Microbiology 09/25/18 Blood Culture - Preliminary, Resulted No Growth after 48 hours. All Specime... 09/25/18 Blood Culture - Preliminary, Resulted No Growth after 48 hours. All Specime... 09/26/18 Respiratory Virus Panel (PCR) ([facility]) - Final, Complete Discharge Medications Scheduled (Coq-10) 100 Mg Cap, 100 MG PO BID, (Reported) Ascorbic Acid (Vitamin C) 500 Mg Tab, 500 MG PO DAILY, (Reported) Atorvastatin Calcium (Lipitor) 20 Mg Tab, 20 MG PO QPM, (Reported) Calcitriol (Calcitriol) 0.25 Mcg Cap, 0.25 MCG PO Q2D, (Reported) Carvedilol (Carvedilol) 6.25 Mg Tab, 6.25 MG PO BID, (Reported) Cetirizine HCl (Cetirizine HCl) 10 Mg Tab, 10 MG PO DAILY, (Reported) Cholecalciferol (D2000 Ultra Strength) 2,000 Unit Cap, 4,000 UNIT PO DAILY, (Reported) Cinacalcet Hydrochloride (Sensipar) 30 Mg Tab, 30 MG PO QWEEK, (Reported) MONDAYS Clopidogrel Bisulfate (Clopidogrel) 75 Mg Tab, 75 MG PO DAILY, (Reported) Febuxostat (Uloric) 80 Mg Tab, 80 MG PO QPM, (Reported) Lactobacillus Acidophilus (Bacid) 1 Tab Tab, 1 TAB PO QPM, (Reported) Multivitamins *[facility] STOCKED* (Thera M Plus *[facility] STOCK[facility]*) 1 Tab Tab, 1 TAB PO DAILY, (Reported) Naloxegol Oxalate (Movantik) 25 Mg Tab, 25 MG PO DAILY, (Reported) Oyster Shell Calcium (Calcium) 500 Mg Tab, 500 MG PO DAILY, (Reported) Paroxetine Hydrochloride (Paxil) 20 Mg Tab, 20 MG PO QPM, (Reported) Prednisone (Prednisone) 10 Mg Tab, 10 MG PO TAPER Take 3 tabs daily x 2 days, then 2 tabs daily x 2 days, then 1 tabs daily x 2 days, then stop Senna (Senna-Lax) 8.6 Mg Tab, 1 TAB PO QHS, (Reported) Spironolactone (Spironolactone) 25 Mg Tab, 25 MG PO QPM, (Reported) Tiotropium [place] Monohydrate (Spiriva Respimat) 2.5 Mcg/Act Spr, 2 PUFFS INH DAILY, (Reported) Torsemide (Torsemide) 100 Mg Tab, 50 MG PO BID 0700/1800 Scheduled PRN Albuterol Sulfate (Proair Hfa) 108 Mcg/Act Aer, 2 PUFFS INH Q4H PRN for SHORTNESS OF BREATH, (Reported) Albuterol Sulfate (Albuterol Sulfate) 2.5 Mg/3 Ml Nebu, 2.5 MG INH Q2H PRN for SHORTNESS OF BREATH, (Reported) Alprazolam (Alprazolam) 0.25 Mg Tab, 0.25 MG PO QID PRN for ANXIETY, (Reported) Clobetasol Propionate (Clobetasol Propionate) 0.05 % Dena, 1 APLCT TOP for ECZEMA, (Reported) Hydroxyzine HCl (Hydroxyzine HCl) 25 Mg Tab, 25 MG PO BID PRN for ITCHING, (Reported) Morphine Sulfate (Morphine Sulfate) 15 Mg Tab, 15 MG PO Q8HP PRN for PAIN, (Reported) Nitroglycerin (Nitroglycerin) 0.4 Mg Sub, 0.4 MG SL NITRO PRN for CHEST PAIN, (Reported) Allergies Coded Allergies: Aspirin (Verified Allergy, Severe, lip swelling, 08/14/18) Ampicillin (Unverified Allergy, Intermediate, HIVES, 08/14/18) Penicillins (Verified Allergy, Intermediate, rash, 08/14/18) Ceftriaxone (Unverified Allergy, Unknown, 09/25/18) UNKNOWN REACTION DANIEL MINAYA MD Sep 27, 2018 13:56
--- NOTE | 2018-09-28 15:51 | IPN ---
DATE: 09/27/2018 SUBJECTIVE: The patient was seen and examined at the bedside today morning. He is awake and alert, hemodynamically stable. He reports that his shortness of breath is significantly better. He denies any active wheezing. His renal function is also slowly improving. Creatinine is down to 2.1 today. The patient reports that he is getting ready to go home and he wants to followup with nephrology as outpatient. OBJECTIVE: VITAL SIGNS: Temperature is 97.6 degrees Fahrenheit, blood pressure 139/76, pulse is 94, respiratory rate of 18, saturating 93% on room air. INTAKE AND OUTPUT: Urine output recorded as 1050 mL yesterday, 1 liter so far today since overnight. Weight in the bed scale is not available. PHYSICAL EXAMINATION: GENERAL: The patient is awake, alert and oriented times three, sitting up in the bed, morbidly obese, in no apparent distress. HEAD AND NECK: Extraocular muscles intact. Pupils equally round and reactive to light. Mucous membranes are moist. Neck is supple. There is mild elevation of jugular venous distention (JVD). CARDIOVASCULAR: S1, S2, regular rate, 1+ edema of the bilateral lower extremities. RESPIRATORY: Chest is clear to auscultation bilaterally. Bilateral equal air entry. No rales or rhonchi. ABDOMEN: Soft, obese. Positive bowel sounds. Nontender. No organomegaly. MUSCULOSKELETAL: No clubbing or cyanosis. Pulses are 2+. CENTRAL NERVOUS SYSTEM (BARKER PEELER): No focal deficit. Power is 5/5 in all extremities. LABORATORY REVIEW: CBC showed a WBC of 13.6, hemoglobin 10.2, platelets of 149. BMP showed sodium of 136, potassium is 5, chloride 99, bicarbonate 30, BUN 102, creatinine is 3.1, it was 3.3 yesterday, calcium is 8.5. MICROBIOLOGY: Blood cultures are negative so far. CURRENT INPATIENT MEDICATIONS: The patient's medications were all reviewed by me. His torsemide and spironolactone was restarted. I have stopped the oral daily potassium supplementation. ASSESSMENT AND PLAN: 1. Acute kidney injury superimposed on chronic kidney disease, stage IV. The patient's baseline creatinine is 2.4. His diuretics were restarted but at a lower dose. Renal function continues to improve. Creatinine is down to 3.1. Electrolytes are within the acceptable range. 2. Chronic diastolic congestive heart failure. The patient was on a home dose of torsemide 50 mg three times a day with spironolactone 25 mg daily. Because of the acute kidney injury, I have decreased the torsemide dose to 50 mg by mouth twice a day along with spironolactone 25 mg daily. I have stopped the oral potassium. The patient is to followup with nephrology within one week after discharge from the hospital for further optimization of diuretics. 3. Acute chronic obstructive pulmonary disease (COPD) exacerbation. The patient's shortness of breath is significantly better. He can continue the oral steroids and nebulizations when he goes home. 4. Anemia and chronic kidney disease. Hemoglobin is 10.2 which is optimal. No need of erythropoietin-stimulating agents (SELVIN) administration at this point. DISPOSITION: It is okay to discharge the patient from a nephrology standpoint. He was advised to followup with nephrology within one week after discharge.
== END 2018-09-27 13:06 | disposition home or self-care (01) ==
LOC: M ED 10:22 → M ED INP 13:51 → M MSPAV 17:00
PROVIDERS: ADMIT Internal Medicine; ATTEND Internal Medicine
DX: J44.1 Chronic obstructive pulmonary disease with (acute) exacerbation (principal); N17.9 Acute kidney failure, unspecified; N18.9 Chronic kidney disease, unspecified; I50.32 Chronic diastolic (congestive) heart failure; I25.10 Atherosclerotic heart disease of native coronary artery without angina pectoris; Z98.61 Coronary angioplasty status; Z95.2 Presence of prosthetic heart valve; E11.9 Type 2 diabetes mellitus without complications; I12.9 Hypertensive chronic kidney disease with stage 1 through stage 4 chronic kidney disease, or unspecified chronic kidney disease; I51.7 Cardiomegaly; E78.5 Hyperlipidemia, unspecified; E66.01 Morbid (severe) obesity due to excess calories; M54.5 Low back pain; Z79.899 Other long term (current) drug therapy; Z79.52 Long term (current) use of systemic steroids; Z88.0 Allergy status to penicillin; Z85.51 Personal history of malignant neoplasm of bladder; R05 Cough; R06.02 Shortness of breath
CPT/HCPCS: 36415; 71045; 71046; 80053; 81001; 82550; 82553; 82570; 82803; 83880; 84300; 84443; 84484; 85025; 85027; 85610; 87040; 87486; 87581; 87633; 87798; 93005; 93041; 94640; 96361; 96365; 96372; 96375; 96376; 99285; G0378; J1956; J2920; J2930

== ENCOUNTER → 2018-09-25 | Outpatient (CLI) | payer MEDICARE, OTHER ==
[2018-09-25 12:59] LABS: BASO % 0.4 % (0.0-1.0); EOS # 0.4 10^3/uL (0.0-0.50); EOS % 3.8 % (0.0-3.0); HEMATOCRIT 32.7 % (42.0-52.0); HEMOGLOBIN 10.6 g/dl (13.5-17.5); IMMATURE GRANULOCYTE % 1.5 % (0-3.0); LYMPH # 1.9 10^3/uL (1.5-4.5); LYMPH % 16.6 % (24.0-44.0); MEAN CORPUSCULAR HEMOGLOBIN 30.7 pg (27.0-33.0); MEAN CORPUSCULAR HGB CONC 32.4 g/dl (32.0-36.5); MEAN CORPUSCULAR VOLUME 94.8 fl (80.0-96.0); MONO # 0.9 10^3/uL (0.0-0.8); MONO % 7.9 % (0.0-5.0); NEUTROPHILS # 7.8 10^3/uL (1.8-7.7); NEUTROPHILS % 69.8 % (36.0-66.0); PLATELET COUNT, AUTOMATED 150 10^3/uL (150-450); RED BLOOD COUNT 3.45 10^6/uL (4.30-6.10); RED CELL DISTRIBUTION WIDTH 15.4 % (11.5-14.5); WHITE BLOOD COUNT 11.2 10^3/uL (4.0-10.0)
[2018-09-25 13:11] LABS: ALBUMIN 3.8 GM/DL (3.2-5.2); ALBUMIN/GLOBULIN RATIO 1.19 (1.00-1.93); ALKALINE PHOSPHATASE 91 U/L (45-117); ALT/SGPT 27 U/L (12-78); ANION GAP 9 MEQ/L (8-16); AST/SGOT 20 U/L (7-37); BILIRUBIN,TOTAL 0.6 MG/DL (0.2-1.0); BLOOD UREA NITROGEN 71 MG/DL (7-18); CALCIUM LEVEL 8.4 MG/DL (8.8-10.2); CARBON DIOXIDE LEVEL 32 MEQ/L (21-32); CHLORIDE LEVEL 99 MEQ/L (98-107); CREATININE FOR GFR 3.42 MG/DL (0.70-1.30); GLOMERULAR FILTRATION RATE 18.8 (>42); GLUCOSE, FASTING 110 MG/DL (70-100); NT-PRO BNP 2629 PG/ML (<125); POTASSIUM SERUM 4.4 MEQ/L (3.5-5.1); SODIUM LEVEL 140 MEQ/L (136-145)
== END ==
LOC: M WUC 09:23
DX: I51.7 Cardiomegaly (principal); R05 Cough; R06.02 Shortness of breath

== ENCOUNTER 2018-10-12 13:00 | Outpatient (RCR) | payer MEDICARE, OTHER ==
[~2018-10-12 13:00] MED LIST changes: +ALBU83IN INH; +AMLO5TAB4 PO; -AMLO5TAB6 PO; +CALC500T36 PO; +CLOB0.057 TOP; +LOSA-4 PO; -LOSA100T50 PO; -OXYC10TA3 PO; +OXYC1TAB16 PO; +PRED10TA2 PO; +SENN18TA PO; +SPIR12.9 INH
== END 2018-10-26 ==
LOC: M OT 13:00
PROVIDERS: ATTEND Physician Assistant
DX: M18.0 Bilateral primary osteoarthritis of first carpometacarpal joints (principal)

== ENCOUNTER → 2018-10-16 | Outpatient (REF) | payer MEDICARE, OTHER | LOC: M SMT 16:54 | PROVIDERS: ATTEND Urology | DX: C67.9 Malignant neoplasm of bladder, unspecified (principal) ==

== ENCOUNTER → 2018-10-24 | Outpatient (CLI) | payer MEDICARE, OTHER ==
[~2018-10-24] MED LIST changes: -AMLO5TAB4 PO; +AMLO5TAB6 PO; -LOSA-4 PO; +LOSA100T50 PO; +OXYC10TA3 PO; -OXYC1TAB16 PO
--- NOTE | 2018-10-24 11:35 | REP ---
Clinical: Contusion. Technique: AP, lateral, bilateral oblique and sunrise views of the left knee. Findings: Early advanced tricompartmental osteoarthritic degenerative changes are appreciated. Findings include subchondral sclerosis, joint space narrowing, osteophytosis, and chondrocalcinosis. No definite acute fracture or dislocation identified. Lateral view suggests anterior swelling and possible suprapatellar effusion. Impression: Degenerative changes with swelling and possible suprapatellar effusion. No obvious acute fracture. Electronically Signed by Krishan Mead MD 10/24/2018 11:26 A
== END ==
LOC: M WUC 10:49
PROVIDERS: ATTEND Physician Assistant
DX: S80.02XA Contusion of left knee, initial encounter (principal); M17.12 Unilateral primary osteoarthritis, left knee; X58.XXXA Exposure to other specified factors, initial encounter; Y92.9 Unspecified place or not applicable

== ENCOUNTER 2018-11-05 12:50 | Outpatient (RCR) | payer MEDICARE, OTHER | END 2018-11-26 | LOC: M OT 12:50 | PROVIDERS: ATTEND Physician Assistant | DX: M18.0 Bilateral primary osteoarthritis of first carpometacarpal joints (principal) | CPT/HCPCS: 97035; 97110; 97140; G8985; G8986 ==

== ENCOUNTER → 2018-11-18 | Outpatient (CLI) | payer MEDICARE, OTHER ==
--- NOTE | 2018-11-18 12:48 | REP ---
Chest two views HISTORY: Cough Comparison: 09/26/2018 An increase in interstitial markings is present in the lungs consistent with chronic interstitial fibrosis. Linear density is present in the right lower lobe consistent with scar. The cardiac silhouette is enlarged. The pulmonary vasculature is normal in appearance. The bony structure is intact. A heart valve is present. A dorsal column stimulator is present in the mid thoracic spinal canal. IMPRESSION: 1. Chronic interstitial fibrosis. 2. Cardiomegaly. Electronically Signed by Nayan Gould MD 11/18/2018 12:40 P
== END ==
LOC: M WUC 12:22
PROVIDERS: ATTEND Nurse Practitioner Family
DX: R05 Cough (principal); R06.00 Dyspnea, unspecified

== ENCOUNTER → 2019-01-15 | Outpatient (REF) | payer MEDICARE, OTHER ==
[~2019-01-15] MED LIST changes: -ASCO25TA PO; +CALC12504 PO; -CALC500T36 PO; +FENT12DI12 TOP; -FENT12PA TOP; +HYDR-2773 PO; -HYDR10TAB PO; +PRED-351 PO; -PRED10TA PO; +VITA1TAB23 PO
== END ==
LOC: M SMT 17:01
PROVIDERS: ATTEND Urology
DX: Z85.51 Personal history of malignant neoplasm of bladder (principal)

== ENCOUNTER → 2019-02-15 | Outpatient (CLI) | payer MEDICARE, OTHER ==
[~2019-02-15] MED LIST changes: +AMIT24CA7 PO; +BACL10TA2 PO; +BENZ200C70 PO; +CO Q100C10 PO; +MAGN1.743 PO; +MORP-38 PO; +PRED1TABL PO; +TRIA1OI TOP
[2019-02-15 18:12] LABS: APPEARANCE, URINE CLEAR (CLEAR); BACTERIA, URINE AUTO NEGATIVE (NEGATIVE); BILIRUBIN, URINE AUTO NEGATIVE (NEGATIVE); BLOOD, URINE BLOOD NEGATIVE (NEGATIVE); COLOR, URINE YELLOW (YELLOW); GLUCOSE, URINE (UA) AUTO NEGATIVE (NEGATIVE); KETONE, URINE AUTO NEGATIVE (NEGATIVE); LEUKOCYTE ESTERASE, URINE AUTO NEGATIVE (NEGATIVE); NITRITE, URINE AUTO NEGATIVE (NEGATIVE); PROTEIN, URINE AUTO NEGATIVE (NEGATIVE); RBC, URINE AUTO 0 /HPF (0-3); SPECIFIC GRAVITY URINE AUTO 1.008 (1.002-1.035); SQUAMOUS EPITHELIAL CELL UR AU 0 /HPF (0-6); UROBILINOGEN, URINE AUTO 0.2 mg/dL (0.0-2.0); WBC, URINE AUTO 0 /HPF (0-3)
[2019-02-15 18:17] LABS: HEMATOCRIT 38.8 % (42.0-52.0); HEMOGLOBIN 12.3 g/dl (13.5-17.5); MEAN CORPUSCULAR HEMOGLOBIN 29.7 pg (27.0-33.0); MEAN CORPUSCULAR HGB CONC 31.7 g/dl (32.0-36.5); MEAN CORPUSCULAR VOLUME 93.7 fl (80.0-96.0); PLATELET COUNT, AUTOMATED 179 10^3/uL (150-450); RED BLOOD COUNT 4.14 10^6/uL (4.30-6.10); WHITE BLOOD COUNT 15.3 10^3/uL (4.0-10.0)
[2019-02-15 18:23] LABS: CALCIUM LEVEL 9.1 MG/DL (8.8-10.2); CREATININE FOR GFR 2.79 MG/DL (0.70-1.30); GLOMERULAR FILTRATION RATE 23.8 (>42); POTASSIUM SERUM 4.4 MEQ/L (3.5-5.1)
== END ==
LOC: M SMT 14:01
PROVIDERS: ATTEND Urology
DX: Z85.51 Personal history of malignant neoplasm of bladder (principal)

== ENCOUNTER 2019-02-16 13:21 | Inpatient (IN) | payer MEDICARE, OTHER ==
[~2019-02-16] VITALS: Ht 167.6 cm; Wt 107.5 kg
[~2019-02-16 13:21] MED LIST changes: -AMIT24CA7 PO; -BACL10TA2 PO; -BENZ200C70 PO; -CINA30TA PO; +CINA30TA4 PO; -CO Q100C10 PO; -MAGN1.743 PO; -MORP-38 PO; -PRED1TABL PO; -TRIA1OI TOP
[2019-02-16] MEDS ORDERED: IPRATROPIUM 0.5MG/ALBUTEROL 2.5MG INH SOL UD 3ML (DUONEB)(J7620) NEB ONE (14:15)
[2019-02-16] MEDS ORDERED: methylPREDNISolone INJ 125 MG/2 ML VIAL (J2930) IV ONE (14:15)
[2019-02-16] MEDS ORDERED: ALBUTEROL SULFATE 2.5 MG/0.5 ML INH NEB SOLN INH ONE (14:15)
[2019-02-16 14:19] LABS: BASO % 0.2 % (0.0-1.0); EOS # 0.1 10^3/uL (0.0-0.50); EOS % 0.4 % (0.0-3.0); HEMATOCRIT 34.9 % (42.0-52.0); HEMOGLOBIN 11.7 g/dl (13.5-17.5); LYMPH # 0.9 10^3/uL (1.5-4.5); LYMPH % 6.4 % (24.0-44.0); MEAN CORPUSCULAR HEMOGLOBIN 30.4 pg (27.0-33.0); MEAN CORPUSCULAR HGB CONC 33.5 g/dl (32.0-36.5); MEAN CORPUSCULAR VOLUME 90.6 fl (80.0-96.0); MONO # 0.7 10^3/uL (0.0-0.8); MONO % 5.4 % (0.0-5.0); NEUTROPHILS # 11.6 10^3/uL (1.8-7.7); NEUTROPHILS % 85.8 % (36.0-66.0); PLATELET COUNT, AUTOMATED 166 10^3/uL (150-450); RED BLOOD COUNT 3.85 10^6/uL (4.30-6.10); WHITE BLOOD COUNT 13.5 10^3/uL (4.0-10.0)
[2019-02-16 14:23] LABS: INR 1.1; PROTHROMBIN TIME 14.3 SECONDS (12.1-14.4)
[2019-02-16 14:25] LABS: ABG BASE EXCESS 1.7 (-2.0-2.0); ABG HCO3 28.4 MEQ/L (22.0-26.0); ABG O2 SATURATION 96.1 % (95.0-99.0); ABG PARTIAL PRESSURE CO2 54.5 mmHg (35.0-45.0); ABG PARTIAL PRESSURE O2 93.3 mmHg (75.0-100.0); ABG STANDARD HCO3 25.9 MEQ/L (22.0-26.0); ABG TOTAL CO2 30.1 MEQ/L (23.0-31.0); ABG pH (ARTERIAL) 7.335 UNITS (7.350-7.450)
[2019-02-16 15:02] LABS: BLOOD UREA NITROGEN 103 MG/DL (7-18); CREATININE FOR GFR 3.58 MG/DL (0.70-1.30); GLOMERULAR FILTRATION RATE 17.8 (>42); GLUCOSE, FASTING 182 MG/DL (70-100)
[2019-02-16 15:03] LABS: ALT/SGPT 30 U/L (12-78); CALCIUM LEVEL 8.2 MG/DL (8.8-10.2); CARBON DIOXIDE LEVEL 29 MEQ/L (21-32); CHLORIDE LEVEL 95 MEQ/L (98-107); CK-MB VALUE MASS 2.3 NG/ML (<3.6); CPK CREATINE PHOSPHOKINASE 56 U/L (39-308); SODIUM LEVEL 134 MEQ/L (136-145)
[2019-02-16 15:04] LABS: ALBUMIN 3.8 GM/DL (3.2-5.2); BILIRUBIN,DIRECT 0.3 MG/DL (0.0-0.2); BILIRUBIN,TOTAL 0.7 MG/DL (0.2-1.0); NT-PRO BNP 1098 PG/ML (<125); THYROXINE (T4) 6.7 UG/DL (4.5-12.0); TOTAL PROTEIN 6.7 GM/DL (6.4-8.2); TROPONIN I < 0.02 NG/ML (< 0.10)
--- NOTE | 2019-02-16 15:09 | REP ---
CT Head without contrast HISTORY: Fall COMPARISON: 09/27/2017 Areas of decreased attenuation are present in the periventricular white matter. This represents small-vessel ischemic disease. There is no intraparenchymal hemorrhage, acute infarct, mass or midline shift. The ventricular system and cortical sulci are dilated consistent with mild volume loss. There is no extra cerebral collection. There is no fracture. The visualized sinuses are clear. IMPRESSION: 1. Small vessel ischemic disease. 2. Mild volume loss. Electronically Signed by Nayan Gould MD 02/16/2019 03:01 P
[2019-02-16 15:10] LABS: INFLUENZA A AMPLIFICATION NEGATIVE (NEGATIVE); INFLUENZA B AMPLIFICATION NEGATIVE (NEGATIVE)
[2019-02-16] MEDS ORDERED: BACL10TA2 PO (15:16)
[2019-02-16] MEDS ORDERED: PRED10TA2 PO (15:16)
[2019-02-16] MEDS ORDERED: BENZ200C70 PO (15:16)
[2019-02-16] MEDS ORDERED: TRIA1OI TOP (15:16)
[2019-02-16] MEDS ORDERED: TORS100T PO (15:16)
[2019-02-16] MEDS ORDERED: PRED1TABL PO (15:16)
[2019-02-16] MEDS ORDERED: MAGN1.743 PO (15:16)
[2019-02-16] MEDS ORDERED: AMIT24CA7 PO (15:16)
[2019-02-16] MEDS ORDERED: MORP-38 PO (15:16)
[2019-02-16] MEDS ORDERED: CO Q100C10 PO (15:16)
--- NOTE | 2019-02-16 15:29 | REP ---
Bilateral shoulder series: Six views. History: Injury in a fall. Findings: Three views of each shoulder demonstrate normal alignment of the glenohumeral and acromioclavicular joints bilaterally. No fracture or subluxation is seen. There is bilateral inferior acromion process spurring and mild inferior AC joint hypertrophy. This may relate to impingement symptoms. No erosive changes seen. Periarticular soft tissues are unremarkable. The patient is status post median sternotomy and a dorsal column stimulator is seen in the thoracic spine. Impression: Bilateral inferior acromion process and inferior AC joint spurring. No acute bony abnormality. Electronically Signed by Agusto Kumar MD 02/16/2019 08:45 P
--- NOTE | 2019-02-16 15:30 | REP ---
Portable chest x-ray: Single view. History: Dyspnea and cough. Comparison chest x-ray: November 18, 2018. Findings: EKG monitoring electrodes overlie the chest. A dorsal column stimulator is seen in the mid thoracic spine. Median sternotomy wires are noted along with multiple mediastinal clips. There is fissural thickening versus linear fibrosis in the right mid chest unchanged from the November 18, 2018 study. No free pleural effusion is noted. No focal infiltrate is seen. Impression: Postoperative changes. Dorsal column stimulator. Fissural thickening versus linear fibrosis right mid lung zone. Electronically Signed by Agusto Kumar MD 02/16/2019 08:45 P
[2019-02-16] MEDS ORDERED: IPRATROPIUM 0.5MG/ALBUTEROL 2.5MG INH SOL UD 3ML (DUONEB)(J7620) NEB PRN (17:45)
[2019-02-16] MEDS ORDERED: MOM 30ML SUSPENSION UDC PO PRN (17:45)
[2019-02-16] MEDS ORDERED: MAALOX 30 ML SUSP *UDC PO PRN (17:45)
[2019-02-16] MEDS ORDERED: ACETAMINOPHEN TAB 650MG DOSE (2X325MG) PO PRN (17:45)
[2019-02-16] MEDS ORDERED: GLUCOSE 4 GM CHEW TABLET PO PRN (18:00)
[2019-02-16] MEDS ORDERED: DEXTROSE 50% 50 ML SYRINGE IV PRN (18:00)
[2019-02-16] MEDS ORDERED: GLUCAGON FOR INJ 1 MG VIAL (J1610) SC PRN (18:00)
[2019-02-16] MEDS ORDERED: ALPRAZolam 0.25 MG TAB PO PRN (18:15)
[2019-02-16] MEDS ORDERED: hydrOXYzine 25 MG TAB PO PRN (18:15)
[2019-02-16] MEDS ORDERED: NITROGLYCERIN 0.4 MG SUBL TABLET SL PRN (18:15)
[2019-02-16] MEDS ORDERED: BACLOFEN 10 MG TAB PO PRN (18:15)
--- NOTE | 2019-02-16 18:24 | HPEPDOC ---
[facility] Medical History & Physical Date of Admission Feb 16, 2019 History and Physical CC: Weakness, Fall, hypoxia HPI: 73-year-old gentleman with significant past medical history of COPD, sleep apnea and noncompliant to CPAP, digestive diastolic congestive heart failure, anxiety, chronic back pain requiring narcotics and status post implantation of this spinal Arlene spinal stimulator stimulator, CK D34, coronary artery disease status post CABG, history of endocarditis status post mitral and aortic valve replacement with bioprosthetic valve, bladder cancer history status post chemotherapy and BCG treatment,HTN, DM, HLD, anemia came in complaining of shortness of breath particularly at nighttime, weakness and daytime drowsiness, and more frequent falls. Patient has been noncompliant with his CPAP due to claustrophobia. He also had some sinus congestion which may have not helped with his breathing. Denies of any fever, CP, dizziness, lower extremity swelling, diarrhea, dysuria. Patient has has history of falls but within the past 2 weeks had 3 falls in totals. Patient has chronic shoulder pain and gets injection but due to fall has worsened pain. Patient had imaging done which did not show any acute fracture. Patient follows Dr. Hope as outpatient for chronic kidney disease and he is being evaluated for vascular intervention as outpatient. Patient had lotion or any swelling and had his medication torsemide adjusted but now hes back on regular dosing of torsemide twice a day and spironolactone with good result of no lotion may swelling. Patient was evaluated in the emergency room and is being admitted for further evaluation and treatment for weakness, fall, hypoxemia most likely secondary due to sleep apnea, and COPD exacerbation. PAST MEDICAL HISTORY: Anxiety Diastolic congestive heart failure, most recent echo 04/18/2017 Chronic back pain with degenerative disc disease status post implantation of dorsal: Spinal stimulator Chronic kidney disease stage III Coronary artery disease status post CABG 4 History of endocarditis status post mitral and aortic valve replacement with bioprosthetic valve Bladder cancer, status post multiple tumor resections, intravesicular chemotherapy, and intravesicular BCG treatments Diabetes mellitus type 2, diet controlled Hypertension Hyperlipidemia Obesity Kidney nodule, status post resection a few years ago, apparently benign Anemia of chronic disease PAST SURGICAL HISTORY: Quadruple bypass in approximately 2004 Multiple cystoscopies with transurethral resection of bladder tumor in October 2015 in January 2016 Kidney tumor removal a few years ago Dorsal columns stimulator few years ago Mitral and aortic valve replacement with what he thinks to be porcine valve, in May 2016 SOCIAL HISTORY: Lives at home with his . He generally does not do much activity limited by back pain. He does not drink alcohol. He quit smoking approximately 15 years ago, prior to that he smoked 2 packs per day 40 years. He does not use recreational drugs. FAMILY HISTORY: Mom had diabetes mellitus type 2, passed with the age of 75. Dad never was a complainer, no medical history, at age of 80. REVIEW OF SYSTEMS: 12 point review systems negative than those described in HPI PHYSICAL EXAMINATION: Vitals: See below General: Awake, intermittently falls asleep, oriented 3 when awake. He is in no acute distress. HEENT: PERRLA, mucous moist, compliant with nasal cannula. Respiratory: Equal air entry bilaterally, no wheezing or rales noted Cardiovascular: S1, S2, regular rate and rhythm at this time Abdomen: Soft, nontender, nondistended, no hepatosplenomegaly appreciated. Bowel sounds present. Extremities: no pitting edema bilaterally Neurology: Cranial nerves grossly intact Psychiatric: Normal mood and affect Head CT: 1. Small vessel ischemic disease. 2. Mild volume loss. B/L shoulder: Bilateral inferior acromion process and inferior AC joint spurring. No acute bony abnormality. CXR: Postoperative changes. Dorsal column stimulator. Fissural thickening versus linear fibrosis right mid lung zone. ASSESSMENT: 73-year-old gentleman with significant past medical history of COPD, sleep apnea and noncompliant to CPAP, digestive diastolic congestive heart failure, anxiety, chronic back pain requiring narcotics and status post implantation of this spinal Arlene spinal stimulator stimulator, CK D34, coronary artery disease status post CABG, history of endocarditis status post mitral and aortic valve replacement with bioprosthetic valve, bladder cancer history status post chemotherapy and BCG treatment,HTN, DM, HLD, anemia came in complaining of shortness of breath particularly at nighttime, weakness and daytime drowsiness, and more frequent falls. Shortness of breath, daytime drowsiness -hx COPD, sinusitis, sleep apnea & non-compliance -CPAP with home setting, encourage compliance -RT, steroid, azithromycin -tele -CXR: Postoperative changes. Dorsal column stimulator. Fissural thickening versus linear fibrosis right mid lung zone. Weakness and frequent falls -treat above -fall precaution -PT,OT -Head CT: 1. Small vessel ischemic disease.2. Mild volume loss. -B/L shoulder: Bilateral inferior acromion process and inferior AC joint spurring. No acute bony abnormality. CKD stage 4, follows Dr. Paris as outpatient -stable -prn renal -resume renal toxic medication judiciously due to cardiac dz Diastolic congestive heart failure. Chronic diastolic congestive heart failure -Echocardiogram done in 2017 showed left ventricular systolic function was 65- 70%. -resume home med Coronary artery disease status post CABG 4. -resume home med History of endocarditis with replacement of aortic and mitral valve with bioprosthetic Valve approximately 1 year ago. -Stable, no fever History of bladder cancer. Stable. -FS monitoring Diabetes mellitus type 2, apparently he is diet controlled at this time. -FS monitoring Hyperlipidemia. Continue statin Chronic back pain. -Continue with home regimen of pain medications, morphine sulfate. -may contributing to lack of deep sleep due to pain, continue to monitor, but hold increasing dose for now as that too may contribute hypoxemia Anemia of chronic disease. No treatment indicated at this time, continue to monitor. DVT prophylaxis. heparin. Full code Vital Signs Vital Signs Date Time Temp Pulse Resp B/P (MAP) Pulse Ox O2 Delivery O2 Flow Rate FiO2 02/16/19 16:21 83 20 142/72 (95) 96 Nasal Cannula 2.0 02/16/19 13:22 97.9 Laboratory Data Labs 24H Laboratory Tests 2 02/16/19 13:55: Immature Granulocyte % (Auto) 1.8, White Blood Count 13.5H, Red Blood Count 3.85L, Hemoglobin 11.7L, Hematocrit 34.9L, Mean Corpuscular Volume 90.6, Mean Corpuscular Hemoglobin 30.4, Mean Corpuscular Hemoglobin Concent 33.5, Red Cell Distribution Width 13.7, Platelet Count 166, Neutrophils (%) (Auto) 85.8H, Lymphocytes (%) (Auto) 6.4L, Monocytes (%) (Auto) 5.4H, Eosinophils (%) (Auto) 0.4, Basophils (%) (Auto) 0.2, Neutrophils # (Auto) 11.6H, Lymphocytes # (Auto) 0.9L, Monocytes # (Auto) 0.7, Eosinophils # (Auto) 0.1, Basophils # (Auto) 0.0, Nucleated Red Blood Cells % (auto) 0.0, Prothrombin Time 14.3, Prothromb Time International Ratio 1.10, Anion Gap 10, Glomerular Filtration Rate 17.8L, Lactic Acid Level 1.3, Calcium Level 8.2L, Aspartate Amino Transf (AST/SGOT) 19, Alanine Aminotransferase (ALT/SGPT) 30, Alkaline Phosphatase 109, Total Bilirubin 0.7, Direct Bilirubin 0.3H, Total Creatine Kinase 56, Creatine Kinase MB 2.3, Creatine Kinase MB Relative Index 4.10H, Troponin I < 0.02, HL-[id number]-Type Natriuretic Peptide 1098H, Total Protein 6.7, Albumin 3.8, Albumin/Globulin Ratio 1.31, Thyroid Stimulating Hormone (TSH) 1.080, Thyroxine (T4) 6.7 02/16/19 14:08: Blood Gas Bicarbonate Standard 25.9, Arterial Blood pH 7.335L, Arterial Blood Partial Pressure CO2 54.5H, Arterial Blood Partial Pressure O2 93.3, Arterial Blood Total CO2 30.1, Arterial Blood HCO3 28.4H, Arterial Blood Base Excess 1.7, Arterial Blood Oxygen Saturation 96.1 02/16/19 14:18: Influenza Type A (RT-PCR) NEGATIVE, Influenza Type B (RT-PCR) NEGATIVE CBC/BMP Laboratory Tests 02/16/19 13:55 Red Blood Count 3.85 L, Mean Corpuscular Volume 90.6, Mean Corpuscular Hemoglobin 30.4, Mean Corpuscular Hemoglobin Concent 33.5, Red Cell Distribution Width 13.7, Neutrophils (%) (Auto) 85.8 H, Lymphocytes (%) (Auto) 6.4 L, Monocytes (%) (Auto) 5.4 H, Eosinophils (%) (Auto) 0.4, Basophils (%) (Auto) 0.2, Neutrophils # (Auto) 11.6 H, Lymphocytes # (Auto) 0.9 L, Monocytes # (Auto) 0.7, Eosinophils # (Auto) 0.1, Basophils # (Auto) 0.0 Microbiology Microbiology 02/16/19 Blood Culture, Received Pending 02/16/19 Blood Culture, Received Pending Home Medications Scheduled Ascorbic Acid (Vitamin C) 500 Mg Tab, 500 MG PO DAILY Atorvastatin Calcium (Lipitor) 20 Mg Tab, 20 MG PO QPM Benzonatate (Benzonatate) 200 Mg Capsule, 200 MG PO TID Calcitriol (Calcitriol) 0.25 Mcg Cap, 0.25 MCG PO QPM Calcium Carbonate (Calcium Carbonate) 500 Mg Tab, 500 MG PO DAILY TAKES AT NOON Carvedilol (Carvedilol) 6.25 Mg Tab, 6.25 MG PO BID Cetirizine HCl (Cetirizine HCl) 10 Mg Tab, 10 MG PO DAILY Cholecalciferol (Vitamin D3) (Vitamin D3) 2,000 Unit Cap, 4,000 UNIT PO DAILY Cinacalcet (Sensipar) 30 Mg Tab, 30 MG PO QWEEK MONDAYS Clopidogrel Bisulfate (Clopidogrel) 75 Mg Tab, 75 MG PO DAILY Febuxostat (Uloric) 80 Mg Tab, 80 MG PO QPM L.acidoph/L.bulg/B.bif/S.therm (Bacid Caplet) 1 Tab Tab, 1 TAB PO QPM Lubiprostone (Amitiza) 24 Mcg Capsule, 24 MCG PO BID RECENTLY SWITCHED FROM MOVANTIK TO AMITIZA - STILL NOT FINDING RELIEF Morphine Sulfate (Morphine Sulfate ER) 15 Mg Tablet.er, 15 MG PO BID RECENTLY CHANGED FROM IR TO ER - STILL NOT FINDING RELIEF Multivitamins (Thera M Plus Tablet) 1 Tab Tab, 1 TAB PO DAILY Paroxetine HCl (Paxil) 20 Mg Tab, 20 MG PO QPM Prednisone (Prednisone) 1 Mg Tablet, 1 MG PO DAILY 11MG TOTAL Prednisone (Prednisone) 10 Mg Tablet, 10 MG PO DAILY 11MG TOTAL Senna (Senna Lax) 8.6 Mg Tab, 1 TAB PO QHS Spironolactone (Spironolactone) 25 Mg Tab, 25 MG PO QPM Tiotropium [place] (Spiriva Respimat) 2.5 Mcg/Act Spr, 2 PUFFS INH DAILY Torsemide (Torsemide) 100 Mg Tablet, 100 MG PO BID TAKES MORNING AND NOONTIME Ubidecarenone/Vit E Acet (Co Q-10 100 mg Softgel) 1 Each Capsule, 100 MG PO BID Scheduled PRN Albuterol Sulf (Albuterol Sulfate) 2.5 Mg/3 Ml Nebu, 2.5 MG INH Q2H PRN for SHORTNESS OF BREATH Albuterol Sulfate (Proair Hfa) 108 Mcg/Act Aer, 2 PUFFS INH Q4H PRN for SHORTNESS OF BREATH Alprazolam (Alprazolam) 0.25 Mg Tab, 0.25 MG PO BID PRN for ANXIETY Baclofen (Baclofen) 10 Mg Tablet, 10 MG PO DAILY PRN for SPASMS Clobetasol Propionate (Clobetasol Propionate) 0.05 % Dena, 1 APLCT TOP for ECZEMA Hydroxyzine HCl (Hydroxyzine HCl) 25 Mg Tab, 25 MG PO TID PRN for ITCHING Magnesium Citrate (Magnesium Citrate) 296 Ml Solution, 30 ML PO DAILY PRN for CONSTIPATION Nitroglycerin (Nitroglycerin) 0.4 Mg Sub, 0.4 MG SL NITRO PRN for CHEST PAIN Triamcinolone Acet (Triamcinolone Acetonide 0.1% Oint) 15 Gm Oint...g., 1 DOSE TOP PRN PRN for ECZEMA Allergies Coded Allergies: ampicillin (Verified Allergy, Intermediate, HIVES, 02/16/19) Penicillins (Verified Allergy, Mild, RASH, 02/16/19) ceftriaxone (Verified Allergy, Unknown, 02/16/19) KENDALL KERR MD Feb 16, 2019 18:24
[2019-02-16] MEDS: HumaLOG INSULIN (NovoLOG) PER UNIT SC SCH ×2 (19:47→20:53)
[2019-02-16] MEDS: IPRATROPIUM 0.5MG/ALBUTEROL 2.5MG INH SOL UD 3ML (DUONEB)(J7620) NEB SCH (20:32)
[2019-02-16] MEDS: AZITHROMYCIN INJ 500 MG, VIAL MATE ADAPTER 1 EACH in D5W 250 ML IV SCH (20:32)
[2019-02-16] MEDS: ATORVASTATIN 20 MG TAB PO SCH (20:33)
[2019-02-16] MEDS: SPIRONOLACTONE 25 MG TAB PO SCH (20:33)
[2019-02-16] MEDS: LACTOBACILLUS ACIDOPHILUS CAP (BACID) PO SCH (20:33)
[2019-02-16] MEDS: CARVedilol 6.25 MG TAB PO SCH (20:33)
[2019-02-16] MEDS: BENZONATATE 100 MG CAP PO SCH (20:34)
[2019-02-16] MEDS: MORPHINE 15 MG SA TAB PO SCH (20:34)
[2019-02-16] MEDS: PARoxetine 20 MG TAB PO SCH (20:34)
[2019-02-16] MEDS: FEBUXOSTAT 40 MG TABLET (ULORIC) PO SCH (20:34)
[2019-02-16] MEDS: SENNA 8.6 MG TAB (SENOKOT) PO SCH (20:34)
[2019-02-16 22:30] VITALS: BP 163/76
--- NOTE | 2019-02-16 23:23 | ECGEPIP ---
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
[2019-02-16 23:59] VITALS: BP 158/86
[2019-02-17] VITALS (7 sets, daily range): BP systolic 132–178; BP diastolic 67–95
[2019-02-17 05:56] LABS: HEMATOCRIT 33.9 % (42.0-52.0); HEMOGLOBIN 11.2 g/dl (13.5-17.5); MEAN CORPUSCULAR HEMOGLOBIN 29.5 pg (27.0-33.0); MEAN CORPUSCULAR VOLUME 89.2 fl (80.0-96.0); PLATELET COUNT, AUTOMATED 161 10^3/uL (150-450); WHITE BLOOD COUNT 11.8 10^3/uL (4.0-10.0)
[2019-02-17 06:09] LABS: CALCIUM LEVEL 7.5 MG/DL (8.8-10.2); CREATININE FOR GFR 3.22 MG/DL (0.70-1.30); GLOMERULAR FILTRATION RATE 20.2 (>42); POTASSIUM SERUM 3.8 MEQ/L (3.5-5.1)
[2019-02-17] MEDS: IPRATROPIUM 0.5MG/ALBUTEROL 2.5MG INH SOL UD 3ML (DUONEB)(J7620) NEB SCH ×4 (07:47→20:00)
[2019-02-17] MEDS: BENZONATATE 100 MG CAP PO SCH ×3 (09:07→20:17)
[2019-02-17] MEDS: HumaLOG INSULIN (NovoLOG) PER UNIT SC SCH ×4 (09:07→20:18)
[2019-02-17] MEDS: VITAMIN D 1,000 INTERNATIONAL UNITS TABLET PO SCH (09:07)
[2019-02-17] MEDS: CARVedilol 6.25 MG TAB PO SCH ×2 (09:08→20:17)
[2019-02-17] MEDS: TORSEMIDE 100 MG TAB PO SCH ×2 (09:09→13:23)
[2019-02-17] MEDS: MORPHINE 15 MG SA TAB PO SCH ×2 (09:09→20:18)
[2019-02-17] MEDS: MULTIVITAMINS/MINERALS THERAP 1 TAB PO SCH (09:09)
[2019-02-17] MEDS: CLOPIDOGREL 75 MG TAB PO SCH (09:09)
[2019-02-17] MEDS: ASCORBIC ACID 500 MG TAB PO SCH (09:09)
[2019-02-17] MEDS: CETIRIZINE (ZyrTEC) 10 MG TAB PO SCH (09:09)
[2019-02-17] MEDS: predniSONE 20 MG TAB PO SCH (09:09)
[2019-02-17] MEDS: OYSTER SHELL CALCIUM 500 MG TAB PO SCH (13:23)
[2019-02-17] MEDS ORDERED: SODIUM CHLORIDE NASAL 0.65% SPRAY BTL (OCEAN) PRN (14:30)
--- NOTE | 2019-02-17 17:32 | IPNPDOC ---
Date Seen The patient was seen on 02/17/19. Progress Note SUBJECTIVE: Patient feeling more awake and alert today. Patient nasal congestion much improved. Patient does not want to be compliant with home CPAP due to claustrophobia but has tolerated nasal cannula overnight without difficulty. He may just need nasal cannula for home use at nighttime as he is adamant that he will not be utilizing the CPAP at home. OBJECTIVE VITAL SIGNS: Please see below. PHYSICAL EXAMINATION: Vitals: See below General: Awake, oriented 3 when awake. HEENT: PERRLA, mucous moist, compliant with nasal cannula overnight. Respiratory: Equal air entry bilaterally, no wheezing or rales noted Cardiovascular: S1, S2, regular rate and rhythm at this time Abdomen: Soft, nontender, nondistended, no hepatosplenomegaly appreciated. Bowel sounds present. Extremities: no pitting edema bilaterally Neurology: Cranial nerves grossly intact Psychiatric: Normal mood and affect LABORATORY DATA, IMAGING STUDIES, MICROBIOLOGY: Please see below. 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 Shortness of breath, daytime drowsiness -hx COPD, sinusitis, sleep apnea & non-compliance -CPAP with home setting, encourage compliance. Might have to settle for nasal canula use at night if adamant about noncompliance to CPAP. -RT, steroid, azithromycin -tele -CXR: Postoperative changes. Dorsal column stimulator. Fissural thickening versus linear fibrosis right mid lung zone. Weakness and frequent falls -treat above -fall precaution -PT,OT -Head CT: 1. Small vessel ischemic disease.2. Mild volume loss. -B/L shoulder: Bilateral inferior acromion process and inferior AC joint spurring. No acute bony abnormality. CKD stage 4, follows Dr. Paris as outpatient -stable -consult Dr. Paris -resume renal toxic medication judiciously due to cardiac dz Diastolic congestive heart failure. Chronic diastolic congestive heart failure -Echocardiogram done in 2017 showed left ventricular systolic function was 65- 70%. -resume home med Coronary artery disease status post CABG 4. -resume home med History of endocarditis with replacement of aortic and mitral valve with bioprosthetic Valve approximately 1 year ago. -Stable, no fever History of bladder cancer. Stable. -FS monitoring Diabetes mellitus type 2, apparently he is diet controlled at this time. -FS monitoring Hyperlipidemia. Continue statin Chronic back pain. -Continue with home regimen of pain medications, morphine sulfate. -may contributing to lack of deep sleep due to pain, continue to monitor, but hold increasing dose for now as that too may contribute hypoxemia Anemia of chronic disease. No treatment indicated at this time, continue to monitor. DVT prophylaxis. heparin. Full code VS, I&O, 24H, Fishbone Vital Signs/I&O Vital Signs Date Time Temp Pulse Resp B/P (MAP) Pulse Ox O2 Delivery O2 Flow Rate FiO2 02/17/19 13:43 132/74 (93) 02/17/19 12:00 1.0 02/17/19 12:00 96.8 84 20 96 02/16/19 20:34 Nasal Cannula I&O- Last 24 Hours up to 6 AM 02/17/19 06:00 Intake Total 0 ml Output Total 300 ml Balance -300 ml Laboratory Data 24H LABS Laboratory Tests 2 02/16/19 20:31: Bedside Glucose (Misc Panel) 325H 02/17/19 05:31: Nucleated Red Blood Cells % (auto) 0.0, Anion Gap 9, Glomerular Filtration Rate 20.2L, Blood Urea Nitrogen 110H, Creatinine 3.22H, Sodium Level 135L, Potassium Level 3.8, Chloride Level 97L, Carbon Dioxide Level 29, Calcium Level 7.5L 02/17/19 12:33: Bedside Glucose (Misc Panel) 136H 02/17/19 16:42: Bedside Glucose (Misc Panel) 179H CBC/BMP Laboratory Tests 02/17/19 05:31 Red Blood Count 3.80 L, Mean Corpuscular Volume 89.2, Mean Corpuscular Hemoglobin 29.5, Mean Corpuscular Hemoglobin Concent 33.0, Red Cell Distribution Width 13.2, Calcium Level 7.5 L Microbiology Microbiology 02/16/19 Blood Culture - Preliminary, Resulted No growth after 24 hours . All specim... 02/16/19 Blood Culture - Preliminary, Resulted No growth after 24 hours . All specim... KENDALL KERR MD Feb 17, 2019 17:32
[2019-02-17] MEDS: AZITHROMYCIN INJ 500 MG, VIAL MATE ADAPTER 1 EACH in D5W 250 ML IV SCH (18:03)
[2019-02-17] MEDS: SENNA 8.6 MG TAB (SENOKOT) PO SCH (20:17)
[2019-02-17] MEDS: SPIRONOLACTONE 25 MG TAB PO SCH (20:17)
[2019-02-17] MEDS: ATORVASTATIN 20 MG TAB PO SCH (20:17)
[2019-02-17] MEDS: PARoxetine 20 MG TAB PO SCH (20:17)
[2019-02-17] MEDS: LACTOBACILLUS ACIDOPHILUS CAP (BACID) PO SCH (20:17)
[2019-02-17] MEDS: FEBUXOSTAT 40 MG TABLET (ULORIC) PO SCH (20:18)
[2019-02-18] VITALS: BP 147/92
[2019-02-18 04:00] VITALS: BP_SYST 130; BP_SYST 134; BP_DIAS 70; BP_DIAS 75
[2019-02-18 05:36] LABS: HEMATOCRIT 35.1 % (42.0-52.0); HEMOGLOBIN 11.9 g/dl (13.5-17.5); MEAN CORPUSCULAR HEMOGLOBIN 29.8 pg (27.0-33.0); MEAN CORPUSCULAR HGB CONC 33.9 g/dl (32.0-36.5); MEAN CORPUSCULAR VOLUME 87.8 fl (80.0-96.0); PLATELET COUNT, AUTOMATED 209 10^3/uL (150-450); WHITE BLOOD COUNT 16.8 10^3/uL (4.0-10.0)
[2019-02-18 06:04] LABS: CREATININE FOR GFR 2.56 MG/DL (0.70-1.30); GLOMERULAR FILTRATION RATE 26.3 (>42); MAGNESIUM LEVEL 2.4 MG/DL (1.8-2.4); PHOSPHORUS LEVEL 5.1 MG/DL (2.5-4.9); POTASSIUM SERUM 3.8 MEQ/L (3.5-5.1)
[2019-02-18] MEDS: IPRATROPIUM 0.5MG/ALBUTEROL 2.5MG INH SOL UD 3ML (DUONEB)(J7620) NEB SCH ×4 (07:25→20:31)
[2019-02-18 08:00] VITALS: BP 122/62
[2019-02-18] MEDS: CLOPIDOGREL 75 MG TAB PO SCH (08:47)
[2019-02-18] MEDS: MULTIVITAMINS/MINERALS THERAP 1 TAB PO SCH (08:47)
[2019-02-18] MEDS: TORSEMIDE 100 MG TAB PO SCH ×2 (08:47→13:04)
[2019-02-18] MEDS: CETIRIZINE (ZyrTEC) 10 MG TAB PO SCH (08:47)
[2019-02-18] MEDS: CARVedilol 6.25 MG TAB PO SCH ×2 (08:47→21:04)
[2019-02-18] MEDS: ASCORBIC ACID 500 MG TAB PO SCH (08:47)
[2019-02-18] MEDS: predniSONE 20 MG TAB PO SCH (08:47)
[2019-02-18] MEDS: VITAMIN D 1,000 INTERNATIONAL UNITS TABLET PO SCH (08:47)
[2019-02-18] MEDS: MORPHINE 15 MG SA TAB PO SCH ×2 (08:48→21:04)
[2019-02-18] MEDS: BENZONATATE 100 MG CAP PO SCH ×3 (08:48→21:05)
[2019-02-18] MEDS: HumaLOG INSULIN (NovoLOG) PER UNIT SC SCH ×4 (08:48→21:00)
[2019-02-18 12:00] VITALS: BP 120/66
[2019-02-18] MEDS: OYSTER SHELL CALCIUM 500 MG TAB PO SCH (13:04)
--- NOTE | 2019-02-18 13:19 | IPNPDOC ---
Date Seen The patient was seen on 02/18/19. Progress Note SUBJECTIVE: Patient cannot sleep last night and does not know why. Patient was compliant with nasal cannula overnight. Patient is this morning without any drowsiness. Suspect that he may have had did not sleep the 2 nights ago and unable to sleep last night. Regardless will obtain nocturnal pulse oximetry to see if patient can qualify for oxygen at home via nasal cannula as patient is noncompliant with his CPAP. PT and OT to help assess regarding safe discharge planning. Spoke to Dr. Paris yesterday and agrees with current management. Will evaluate patient and provide further recommendations. OBJECTIVE VITAL SIGNS: Please see below. PHYSICAL EXAMINATION: Vitals: See below General: Awake, oriented 3 when awake. HEENT: PERRLA, mucous moist, compliant with nasal cannula overnight. Respiratory: Equal air entry bilaterally, no wheezing or rales noted Cardiovascular: S1, S2, regular rate and rhythm at this time Abdomen: Soft, nontender, nondistended, no hepatosplenomegaly appreciated. Bowel sounds present. Extremities: no pitting edema bilaterally , also bruising secondary to fall history. Neurology: Cranial nerves grossly intact Psychiatric: Normal mood and affect LABORATORY DATA, IMAGING STUDIES, MICROBIOLOGY: Please see below. 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 Shortness of breath, daytime drowsiness, sinusitis congestion (improving) -hx COPD, sinusitis, sleep apnea & non-compliance -CPAP with home setting, encourage compliance. -nocturnal pulse oximetry to see if patient can qualify for oxygen at home via nasal cannula. -RT, prn steroid, azithromycin, ayr nasal gel -tele -CXR: Postoperative changes. Dorsal column stimulator. Fissural thickening versus linear fibrosis right mid lung zone. Weakness and frequent falls -treat above -fall precaution -PT,OT -Head CT: 1. Small vessel ischemic disease.2. Mild volume loss. -B/L shoulder: Bilateral inferior acromion process and inferior AC joint spurring. No acute bony abnormality. CKD stage 4, follows Dr. Paris as outpatient -stable -consult Dr. Paris -resume renal toxic medication judiciously due to cardiac dz Diastolic congestive heart failure. Chronic diastolic congestive heart failure -Echocardiogram done in 2017 showed left ventricular systolic function was 65-70%. -resume home med Coronary artery disease status post CABG 4. -resume home med History of endocarditis with replacement of aortic and mitral valve with bioprosthetic Valve approximately 1 year ago. -Stable, no fever History of bladder cancer. Stable. -FS monitoring Diabetes mellitus type 2, apparently he is diet controlled at this time. -FS monitoring Hyperlipidemia. Continue statin Chronic back pain. -Continue with home regimen of pain medications, morphine sulfate. -may contributing to lack of deep sleep due to pain, continue to monitor, but hold increasing dose for now as that too may contribute hypoxemia Anemia of chronic disease. No treatment indicated at this time, continue to monitor. DVT prophylaxis. heparin. Full code DISPOSITION: [Anticipate discharge within 24-48 hours]. VS, I&O, 24H, [facility] Vital Signs/I&O Vital Signs Date Time Temp Pulse Resp B/P (MAP) Pulse Ox O2 Delivery O2 Flow Rate FiO2 02/18/19 12:00 96.5 79 18 120/66 (84) 95 02/18/19 04:00 1.0 02/16/19 20:34 Nasal Cannula I&O- Last 24 Hours up to 6 AM 02/18/19 05:59 Intake Total 1110 ml Output Total 1875 ml Balance -765 ml Laboratory Data 24H LABS Laboratory Tests 2 02/17/19 16:42: Bedside Glucose (Misc Panel) 179H 02/17/19 20:09: Bedside Glucose (Misc Panel) 273H 02/18/19 05:06: Nucleated Red Blood Cells % (auto) 0.0, Anion Gap 7L, Glomerular Filtration Rate 26.3L, Blood Urea Nitrogen 104H, Creatinine 2.56H, Sodium Level 134L, Potassium Level 3.8, Chloride Level 95L, Carbon Dioxide Level 32, Calcium Level 8.0L, Phosphorus Level 5.1H, Magnesium Level 2.4 02/18/19 12:26: Bedside Glucose (Misc Panel) 111H CBC/BMP Laboratory Tests 02/18/19 05:06 Red Blood Count 4.00 L, Mean Corpuscular Volume 87.8, Mean Corpuscular Hemoglobin 29.8, Mean Corpuscular Hemoglobin Concent 33.9, Red Cell Distribution Width 13.3, Calcium Level 8.0 L Microbiology Microbiology 02/16/19 Blood Culture - Preliminary, Resulted No growth after 24 hours . All specim... 02/16/19 Blood Culture - Preliminary, Resulted No growth after 24 hours . All specim... KENDALL KERR MD Feb 18, 2019 13:19
[2019-02-18] MEDS ORDERED: SLF 3 ML SYR IV PRN (14:30)
[2019-02-18 16:30] VITALS: BP 140/80
[2019-02-18] MEDS: AZITHROMYCIN INJ 500 MG, VIAL MATE ADAPTER 1 EACH in D5W 250 ML IV SCH (18:17)
[2019-02-18] MEDS: LACTOBACILLUS ACIDOPHILUS CAP (BACID) PO SCH (21:02)
[2019-02-18] MEDS: ATORVASTATIN 20 MG TAB PO SCH (21:02)
[2019-02-18] MEDS: SENNA 8.6 MG TAB (SENOKOT) PO SCH (21:03)
[2019-02-18] MEDS: SPIRONOLACTONE 25 MG TAB PO SCH (21:03)
[2019-02-18] MEDS: FEBUXOSTAT 40 MG TABLET (ULORIC) PO SCH (21:03)
[2019-02-18] MEDS: PARoxetine 20 MG TAB PO SCH (21:04)
[2019-02-18] MEDS: SLF 3 ML SYR IV SCH (21:05)
[2019-02-18 22:00] VITALS: BP 104/58
[2019-02-19] MEDS: SLF 3 ML SYR IV SCH (05:57)
[2019-02-19 06:00] VITALS: BP 149/73
[2019-02-19 06:30] LABS: HEMATOCRIT 33.1 % (42.0-52.0); HEMOGLOBIN 11.1 g/dl (13.5-17.5); MEAN CORPUSCULAR HEMOGLOBIN 29.6 pg (27.0-33.0); MEAN CORPUSCULAR HGB CONC 33.5 g/dl (32.0-36.5); MEAN CORPUSCULAR VOLUME 88.3 fl (80.0-96.0); PLATELET COUNT, AUTOMATED 199 10^3/uL (150-450); RED BLOOD COUNT 3.75 10^6/uL (4.30-6.10); WHITE BLOOD COUNT 14.6 10^3/uL (4.0-10.0)
[2019-02-19 06:49] LABS: CALCIUM LEVEL 7.8 MG/DL (8.8-10.2); CREATININE FOR GFR 2.51 MG/DL (0.70-1.30); GLOMERULAR FILTRATION RATE 26.9 (>42); POTASSIUM SERUM 3.4 MEQ/L (3.5-5.1)
[2019-02-19] MEDS: IPRATROPIUM 0.5MG/ALBUTEROL 2.5MG INH SOL UD 3ML (DUONEB)(J7620) NEB SCH ×3 (08:00→13:04)
[2019-02-19] MEDS ORDERED: POTASSIUM CHLORIDE 10 MEQ SR TABLET PO ONE (08:15)
[2019-02-19] MEDS: HumaLOG INSULIN (NovoLOG) PER UNIT SC SCH ×2 (08:52→13:08)
[2019-02-19] MEDS: BENZONATATE 100 MG CAP PO SCH (08:53)
[2019-02-19] MEDS: ASCORBIC ACID 500 MG TAB PO SCH (08:54)
[2019-02-19] MEDS: predniSONE 20 MG TAB PO SCH (08:57)
[2019-02-19] MEDS: MULTIVITAMINS/MINERALS THERAP 1 TAB PO SCH (08:57)
[2019-02-19] MEDS: MORPHINE 15 MG SA TAB PO SCH (08:57)
[2019-02-19] MEDS: CLOPIDOGREL 75 MG TAB PO SCH (08:58)
[2019-02-19] MEDS: CETIRIZINE (ZyrTEC) 10 MG TAB PO SCH (08:58)
[2019-02-19 08:59] VITALS: BP 149/73
[2019-02-19] MEDS: CARVedilol 6.25 MG TAB PO SCH (08:59)
[2019-02-19] MEDS ORDERED: CALCITRIOL 0.25 MCG CAP (S0169) PO SCH (09:00)
[2019-02-19] MEDS: TORSEMIDE 100 MG TAB PO SCH ×2 (09:00→13:08)
[2019-02-19] MEDS: VITAMIN D 1,000 INTERNATIONAL UNITS TABLET PO SCH (09:00)
--- NOTE | 2019-02-19 12:00 | NOCOX ---
DATE OF PROCEDURE: 02/18/2019 to 02/19/2019 Nocturnal oxygen was performed on room air. Resting oxygen saturation was 93%, not recorded what position the patient was in or whether or not he was sleeping. Lowest oxygen saturation recorded was 85%. There was variable oxygen desaturations throughout the evening without significant heart rate variability. Some question of artifact from tremor. The longest continuous time with an oxygen saturation less than 88% was 16 seconds, a total time with an oxygen saturation less than 88% was 1 minute 50 seconds and therefore does not qualify for oxygen therapy. IMPRESSION: Minimal variable desaturations with some concern for artifact of possible underlying tremor. Would consider repeat nocturnal oximetry if there are any further concerns.
[2019-02-19] MEDS ORDERED: PRED20TA PO (12:46)
--- NOTE | 2019-02-19 12:54 | DS.PDOC ---
Discharge Summary General Date of Admission Feb 16, 2019 at 17:35 Date of Discharge 02/19/19 Discharge Summary PROCEDURES PERFORMED DURING STAY: [None]. ADMITTING DIAGNOSES: Shortness of breath, daytime drowsiness, sinusitis congestion Weakness and frequent falls CKD stage 4 Diastolic congestive heart failure. Chronic diastolic congestive heart failure Coronary artery disease status post CABG 4 History of endocarditis with replacement of aortic and mitral valve with bioprosthetic Valve approximately 1 year ago History of bladder cancer Diabetes mellitus type 2 Hyperlipidemia Chronic back pain Anemia of chronic disease DISCHARGE DIAGNOSES: Sleep apnea Daytime drowsiness sinusitis congestion Weakness and frequent falls Tongue laceration, resolved Mild hypokalemia CKD stage 4 Diastolic congestive heart failure. Chronic diastolic congestive heart failure Coronary artery disease status post CABG 4 History of endocarditis with replacement of aortic and mitral valve with bioprosthetic Valve approximately 1 year ago History of bladder cancer Diabetes mellitus type 2 Hyperlipidemia Chronic back pain Anemia of chronic disease COMPLICATIONS/CHIEF COMPLAINT: Fall,Hypoxia,Weakness. 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 Patient has been noncompliant with his CPAP due to claustrophobia. He also had some sinus congestion which may have not helped with his breathing. Denies of any fever, CP, dizziness, lower extremity swelling, diarrhea, dysuria. Patient has has history of falls but within the past 2 weeks had 3 falls in totals. Patient has chronic shoulder pain and gets injection but due to fall has worsened pain. Patient had imaging done which did not show any acute fracture. Patient follows Dr. Hope as outpatient for chronic kidney disease and he is being evaluated for vascular intervention as outpatient. Patient had lotion or any swelling and had his medication torsemide adjusted but now hes back on regular dosing of torsemide twice a day and spironolactone with good result of no lotion may swelling. Patient was evaluated in the emergency room and is being admitted for further evaluation and treatment for weakness, fall, hypoxemia most likely secondary due to sleep apnea, and COPD exacerbation.]. 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 Treatment as mentioned below. Patient slept well with nasal cannula on the first night and subsequently he did not have daytime drowsiness during hospitalization stay. Patient worked with physical therapy and safe to discharge home. Patient also had nocturnal oximetry which showed no requirement for oxygen at night. Patient informed patient that he needs to be compliant with CPAP but due to his claustrophobia unlikely that he will follow through. I have informed patient and his that compliance is a must. They need to follow with PCP within one week for further recommendation regarding plan for any alternative therapy to treat his sleep apnea as patient and his admits most likely patient will be noncompliant to CPAP. Patient will be discharged home on prednisone by mouth for a few more days but no antibiotic. Please follow with PCP within one week. Shortness of breath, daytime drowsiness, sinusitis congestion (improving) -hx COPD, sinusitis, sleep apnea & non-compliance -CPAP with home setting, encourage compliance. -nocturnal pulse oximetry to see if patient can qualify for oxygen at home via nasal cannula but did not meet criteria. -RT, steroid, s/p azithromycin, ayr nasal gel -s/p tele -CXR: Postoperative changes. Dorsal column stimulator. Fissural thickening versus linear fibrosis right mid lung zone. Weakness and frequent falls -treat above and improved -s/p fall precaution -s/p PT,OT, safe for home -Head CT: 1. Small vessel ischemic disease.2. Mild volume loss. -B/L shoulder: Bilateral inferior acromion process and inferior AC joint spurring. No acute bony abnormality. History of tongue surgery, trauma from his teeth, active bleed resolved -Please follow with ENT as outpatient Mild hypokalemia, replaced CKD stage 4, follows Dr. Paris as outpatient -stable -consult Dr. Paris: spoke to Dr. Paris and seen by renal, note pending but recommended not to change diuretics to avoid fluid retention -resume renal toxic medication judiciously due to cardiac dz Diastolic congestive heart failure. Chronic diastolic congestive heart failure -Echocardiogram done in 2017 showed left ventricular systolic function was 65-70%. -resume home med Coronary artery disease status post CABG 4. -resume home med History of endocarditis with replacement of aortic and mitral valve with bioprosthetic Valve approximately 1 year ago. -Stable, no fever History of bladder cancer. Stable. -FS monitoring Diabetes mellitus type 2, apparently he is diet controlled at this time. -s/p FS monitoring Hyperlipidemia. Continue statin Chronic back pain. -Continue with home regimen of pain medications, morphine sulfate. -may contributing to lack of deep sleep due to pain, continue to monitor, but hold increasing dose for now as that too may contribute hypoxemia Anemia of chronic disease. No treatment indicated at this time, continue to monitor.]. DISCHARGE MEDICATIONS: Please see below. ALLERGIES: Please see below. PHYSICAL EXAMINATION ON DISCHARGE: VITAL SIGNS: Please see below. General: Awake, oriented 3 when awake. HEENT: PERRLA, mucous moist, compliant with nasal cannula overnight. Respiratory: Equal air entry bilaterally, no wheezing or rales noted Cardiovascular: S1, S2, regular rate and rhythm at this time Abdomen: Soft, nontender, nondistended, no hepatosplenomegaly appreciated. Bowel sounds present. Extremities: no pitting edema bilaterally , also bruising secondary to fall history. Neurology: Cranial nerves grossly intact Psychiatric: Normal mood and affect LABORATORY DATA: Please see below. IMAGING: [Checks x-ray:Postoperative changes. Dorsal column stimulator. Fissural thickening versus linear fibrosis right mid lung zone. Bilateral shoulder x-ray:Bilateral inferior acromion process and inferior AC joint spurring. No acute bony abnormality. CT of the head: Small vessel ischemic disease, mild volume loss ] PROGNOSIS: [Improved] ACTIVITY: [As tolerated]. DIET: [Cardiac, renal, diabetic diet] DISCHARGE PLAN: [Natural oximetry:Minimal variable desaturations with some concern for artifact of possible underlying tremor. Would consider repeat nocturnal oximetry if there are any further concerns.] DISPOSITION: Home DISCHARGE CONDITION: [Stable]. TIME SPENT ON DISCHARGE: Greater than [40] minutes. Vital Signs/I&Os Vital Signs Date Time Temp Pulse Resp B/P (MAP) Pulse Ox O2 Delivery O2 Flow Rate FiO2 02/19/19 08:59 91 149/73 02/19/19 08:57 16 02/19/19 06:00 98.3 93 02/18/19 04:00 1.0 02/16/19 20:34 Nasal Cannula I&O- Last 24 Hours up to 6 AM 02/19/19 06:00 Intake Total 1515 ml Output Total 1500 ml Balance 15 ml Laboratory Data Labs 24H Laboratory Tests 2 02/18/19 12:26: Bedside Glucose (Misc Panel) 111H 02/18/19 17:55: Bedside Glucose (Misc Panel) 303H 02/18/19 20:52: Bedside Glucose (Misc Panel) 107 02/19/19 06:00: Anion Gap 8, Glomerular Filtration Rate 26.9L, Blood Urea Nitrogen 111H, Creatinine 2.51H, Sodium Level 135L, Potassium Level 3.4L, Chloride Level 94L, Carbon Dioxide Level 33H, Calcium Level 7.8L 02/19/19 06:02: Nucleated Red Blood Cells % (auto) 0.0 02/19/19 12:07: Bedside Glucose (Misc Panel) 187H CBC/BMP Laboratory Tests 02/19/19 06:00 Calcium Level 7.8 L 02/19/19 06:02 Red Blood Count 3.75 L, Mean Corpuscular Volume 88.3, Mean Corpuscular Hemoglobin 29.6, Mean Corpuscular Hemoglobin Concent 33.5, Red Cell Distribution Width 13.3 FSBS Laboratory Tests Test 02/18/19 12:26 02/18/19 17:55 02/18/19 20:52 02/19/19 12:07 Range/Units Bedside Glucose (Misc Panel) 111 303 107 187 83-110 MG/DL Microbiology Microbiology 02/16/19 Blood Culture - Preliminary, Resulted No Growth after 48 hours. All Specime... 02/16/19 Blood Culture - Preliminary, Resulted No Growth after 48 hours. All Specime... Discharge Medications Scheduled Ascorbic Acid (Vitamin C) 500 Mg Tab, 500 MG PO DAILY, (Reported) Atorvastatin Calcium (Lipitor) 20 Mg Tab, 20 MG PO QPM, (Reported) Benzonatate (Benzonatate) 200 Mg Capsule, 200 MG PO TID, (Reported) Calcitriol (Calcitriol) 0.25 Mcg Cap, 0.25 MCG PO QPM, (Reported) Calcium Carbonate (Calcium Carbonate) 500 Mg Tab, 500 MG PO DAILY, (Reported) TAKES AT NOON Carvedilol (Carvedilol) 6.25 Mg Tab, 6.25 MG PO BID, (Reported) Cetirizine HCl (Cetirizine HCl) 10 Mg Tab, 10 MG PO DAILY, (Reported) Cholecalciferol (Vitamin D3) (Vitamin D3) 2,000 Unit Cap, 4,000 UNIT PO DAILY, (Reported) Cinacalcet (Sensipar) 30 Mg Tab, 30 MG PO QWEEK, (Reported) MONDAYS Clopidogrel Bisulfate (Clopidogrel) 75 Mg Tab, 75 MG PO DAILY, (Reported) Febuxostat (Uloric) 80 Mg Tab, 80 MG PO QPM, (Reported) L.acidoph/L.bulg/B.bif/S.therm (Bacid Caplet) 1 Tab Tab, 1 TAB PO QPM, (Reported) Lubiprostone (Amitiza) 24 Mcg Capsule, 24 MCG PO BID, (Reported) RECENTLY SWITCHED FROM MOVANTIK TO AMITIZA - STILL NOT FINDING RELIEF Morphine Sulfate (Morphine Sulfate ER) 15 Mg Tablet.er, 15 MG PO BID, (Reported) RECENTLY CHANGED FROM IR TO ER - STILL NOT FINDING RELIEF Multivitamins (Thera M Plus Tablet) 1 Tab Tab, 1 TAB PO DAILY, (Reported) Paroxetine HCl (Paxil) 20 Mg Tab, 20 MG PO QPM, (Reported) Prednisone (Prednisone) 1 Mg Tablet, 1 MG PO DAILY, (Reported) 11MG TOTAL Prednisone (Prednisone) 10 Mg Tablet, 10 MG PO DAILY, (Reported) 11MG TOTAL Prednisone (Prednisone) 20 Mg Tablet, 40 MG PO DAILY Senna (Senna Lax) 8.6 Mg Tab, 1 TAB PO QHS, (Reported) Spironolactone (Spironolactone) 25 Mg Tab, 25 MG PO QPM, (Reported) Tiotropium [place] (Spiriva Respimat) 2.5 Mcg/Act Spr, 2 PUFFS INH DAILY, (Reported) Torsemide (Torsemide) 100 Mg Tablet, 100 MG PO BID, (Reported) TAKES MORNING AND NOONTIME Ubidecarenone/Vit E Acet (Co Q-10 100 mg Softgel) 1 Each Capsule, 100 MG PO BID, (Reported) Scheduled PRN Albuterol Sulf (Albuterol Sulfate) 2.5 Mg/3 Ml Nebu, 2.5 MG INH Q2H PRN for SHORTNESS OF BREATH, (Reported) Albuterol Sulfate (Proair Hfa) 108 Mcg/Act Aer, 2 PUFFS INH Q4H PRN for SHORTNESS OF BREATH, (Reported) Alprazolam (Alprazolam) 0.25 Mg Tab, 0.25 MG PO BID PRN for ANXIETY, (Reported) Baclofen (Baclofen) 10 Mg Tablet, 10 MG PO DAILY PRN for SPASMS, (Reported) Clobetasol Propionate (Clobetasol Propionate) 0.05 % Dena, 1 APLCT TOP for ECZEMA, (Reported) Hydroxyzine HCl (Hydroxyzine HCl) 25 Mg Tab, 25 MG PO TID PRN for ITCHING, (Reported) Magnesium Citrate (Magnesium Citrate) 296 Ml Solution, 30 ML PO DAILY PRN for CONSTIPATION, (Reported) Nitroglycerin (Nitroglycerin) 0.4 Mg Sub, 0.4 MG SL NITRO PRN for CHEST PAIN, (Reported) Triamcinolone Acet (Triamcinolone Acetonide 0.1% Oint) 15 Gm Oint...g., 1 DOSE TOP PRN PRN for ECZEMA, (Reported) Allergies Coded Allergies: ampicillin (Verified Allergy, Intermediate, HIVES, 02/16/19) Penicillins (Verified Allergy, Mild, RASH, 02/16/19) ceftriaxone (Verified Allergy, Unknown, 02/16/19) KENDALL KERR MD Feb 19, 2019 12:41
[2019-02-19] MEDS: OYSTER SHELL CALCIUM 500 MG TAB PO SCH (13:08)
--- NOTE | 2019-02-19 18:36 | CR ---
DATE OF CONSULTATION: 02/18/2019 REQUESTING PHYSICIAN: Dr. Blossom Ramos REASON FOR CONSULTATION: Management of chronic kidney disease (CKD), stage IV. HISTORY OF PRESENT ILLNESS: Patient is a 73-year-old male with a past medical history of diastolic congestive heart failure, CKD, stage IV, coronary artery disease status post bypass, history of endocarditis, status post mitral and aortic valve replacement, bladder cancer status post chemotherapy and BCG treatment, chronic obstructive pulmonary disease (COPD), sleep apnea, hypertension, diabetes, dyslipidemia, and other comorbid conditions mentioned below. He was admitted on February 16 with complaint of shortness of breath and fall. He was admitted for the same, and renal consultation was requested for his management of underlying CKD IV. 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 Sophie Hope, regarding his advanced renal failure, and plan is for fistula creation in anticipation of dialysis needs in the future. PAST MEDICAL HISTORY: 1. CKD, IV. 2. Coronary artery disease. 3. COPD. 4. Diastolic congestive heart failure. 5. Anxiety. 6. Chronic back pain, opioid dependent. 7. Bladder cancer. 8. Hypertension. 9. Diabetes. 10. Dyslipidemia. 11. Anemia. 12. History of endocarditis. PAST SURGICAL HISTORY: 1. Quadruple bypass. 2. Multiple cystoscopies with transurethral resection of bladder tumor in 2016. 3. Partial nephrectomy. 4. Dorsal column stimulator. 5. Status post mitral and aortic valve replacement. SOCIAL HISTORY: Lives at home with his . No alcohol. He is an ex-smoker. No recreational drugs. FAMILY HISTORY: Significant for diabetes. HOME MEDICATIONS: Reviewed and include: - albuterol - Xanax - vitamin C - atorvastatin - calcitriol 0.25 mg daily - carvedilol 6.25 by mouth twice a day - cinacalcet 30 mg on Friday - Plavix 75 mg by mouth daily - Uloric 80 mg by mouth every evening - Lubiprostone 24 mcg by mouth twice a day - spironolactone 25 mg by mouth every evening - torsemide 100 mg by mouth twice a day - CoQ10 at 100 mg soft gel twice a day - Spiriva two puffs inhaled daily ALLERGIES: PENICILLINS, AMPICILLIN, CEFTRIAXONE. REVIEW OF SYSTEMS: CONSTITUTIONAL: He denies fevers and chills. EYES: He denies visual changes or blurring. ENT: He denies odynophagia or rhinorrhea. CARDIAC: He has a history of coronary artery disease and bypass. He denies chest pain or leg edema. RESPIRATORY: He has a history of sleep apnea, on continuous positive airway pressure (CPAP). He denies cough. GASTROINTESTINAL: He denies nausea, vomiting, diarrhea. GENITOURINARY: He denies hematuria or dysuria. ENDOCRINE: He reports a history of diabetes and secondary hyperparathyroidism. MUSCULOSKELETAL: He has chronic back pain and history of gout and also history of falls in the recent past. HEMATOLOGIC: He denies easy bleeding or bruising. NEUROLOGIC: He denies seizures or syncope. SKIN: He denies any new rashes or ulcer. Remainder of review of systems is negative. VITAL SIGNS: Temperature 98.0, pulse 60, respiratory rate 20, blood pressure 104/58, saturating 97% on room air. Intake yesterday was 110. Urine output yesterday was 1875. Net negative 765. Weight in the bed scale today is 107.5 kg. GENERAL: Patient is seen sitting out of bed to the chair. Elderly male. Awake, alert, oriented, conversational, and interactive. No acute respiratory distress. Extraocular muscles are intact. Tongue is moist. NECK: Supple. Jugular veins are not elevated while he is sitting upright. LUNGS: Symmetric air entry bilaterally. No wheezing, crackle, or rale. CARDIAC: S1, S2, regular rate and rhythm. No significant edema present in the peripheries. ABDOMEN: Soft, obese, and nontender. SKIN: Normal turgor and temperature. NEUROLOGIC: No focal deficit. Oriented. PSYCHIATRIC: Appropriate mood and affect. LABORATORY DATA: Sodium 134, potassium 3.8, bicarbonate 32, BUN 104, creatinine 2.5, phosphorus 5.1, magnesium 2.4. Hemoglobin 11.9. Blood cultures: No growth for 48 hours times two sets. INPATIENT MEDICATIONS: Reviewed by myself. Patient is receiving: - azithromycin 500 mg intravenous (IV) daily - Xanax as needed - Tylenol as needed - vitamin C 500 mg by mouth daily - Lipitor 20 mg by mouth every evening - baclofen 10 mg by mouth daily as needed - Tessalon Perles - carvedilol 6.25 mg by mouth twice a day - Plavix 75 mg by mouth daily - DuoNeb as needed - Uloric 80 mg by mouth every evening - insulin - MS Contin 15 mg by mouth twice a day - Os-Gilberto 500 mg by mouth daily - Paxil 20 mg by mouth every evening - prednisone 40 mg by mouth daily - spironolactone 25 mg by mouth every evening - torsemide 100 mg by mouth twice a day - vitamin D 4000 units by mouth daily PROBLEMS: 1. CKD, stage IV. Patient's renal function is stable at his usual baseline. He is continued on his home diuretic regimen of torsemide 100 mg by mouth twice a day and spironolactone 25 mg by mouth daily. His electrolytes and volume status are acceptable. There is no indication for hemodialysis initiation at this time. He tells me there is already a plan for referral to vascular surgery for fistula creation in anticipation of dialysis needs down the road in view of his advanced chronic renal failure. Please dose medications for GFR. No change is needed in his diuretics. 2. Diastolic congestive heart failure. Volume status is compensated. Continue torsemide 100 mg by mouth twice a day and spironolactone 25 mg daily. Continue oral fluid restriction to 1.5 liters and monitoring of daily weights. Potassium and magnesium are acceptable on his current diuretic regimen. 3. Hypertension. Blood pressures are acceptably controlled, and he continues on torsemide, spironolactone, carvedilol. 4. Secondary hyperparathyroidism of renal origin. The patient continues on his usual medications. His phosphorus level and calcium levels are acceptable. 5. Hyponatremia. It is very mild, and it is secondary to advanced chronic kidney disease. No intervention is needed beyond fluid restriction and continuation of the diuretics. DISPOSITION: Patient is doing satisfactorily from a renal point of view, and I have no different recommendations to make regarding his current care.
--- NOTE | 2019-02-21 10:49 | IPN ---
DATE: 02/19/2019 SUBJECTIVE: Patient seen and examined this morning at the bedside. His is present as well. They are inquiring in regards to his medications and chronic kidney disease and I had a discussion with them regarding the same. He is otherwise discharge pending and has no complaints today. VITAL SIGNS: Temperature 98.3, pulse 91, respiratory rate 18, blood pressure 149/73, saturating 93-97% on room air. Intake yesterday was 1035. Urine output yesterday was 750. Urine output thus far today is 750. Weight in the bed scale today is not recorded. GENERAL: Patient is seen walking around the room, elderly male in no distress, comfortable, oriented times three, interactive and conversational. Extraocular muscles are intact. Tongue is moist. Neck is supple. Jugular veins are not elevated. Lungs show symmetric air entry bilaterally. No wheezing, crackle or rale. CARDIAC: S1, S2. Regular rate and rhythm. No edema in the peripheries. ABDOMEN: Soft, obese and nontender. Skin shows normal turgor and temperature. NEUROLOGIC: No focal deficits. He is oriented. PSYCHIATRIC: Appropriate mood and affect. LABORATORY DATA: White count 14.6, hemoglobin 11.1. Sodium 135, potassium 3.4, bicarbonate 33, BUN 111, creatinine 2.5. Blood cultures with no growth for 72 hours times two sets. INPATIENT MEDICATIONS: Reviewed by myself and no change from prior. PROBLEMS: 1. Chronic kidney disease (CKD) stage IV. Patient's renal function is stable at his usual baseline. He understands that he is likely to have dialysis needs in the future. He has discussed this with his primary triple air valve tester as well. He is pending vascular referral for a fistula creation. His electrolytes are acceptable. Her received potassium supplementation today. His volume status is well-compensated. There is no indication for hemodialysis. There is no urgent indication for hemodialysis initiation at this time and he can follow up with his primary triple air valve tester, Dr. Sophie Hope, in the outpatient setting for further management of his CKD IV and preparation for dialysis with access creation. 2. Diastolic congestive heart failure. Volume status is compensated. Continue with the current diuretics, torsemide and spironolactone. Potassium is low today and patient is supplemented. His magnesium is acceptable. 3. Hypertension. Blood pressures are well-controlled and he continues on diuretics and carvedilol. DISPOSITION: Patient is acceptable for discharge from a nephrology point of view with followup in 1-2 weeks with his primary triple air valve tester.
== END 2019-02-19 14:25 | disposition home or self-care (01) | DRG 153 ==
LOC: M ED 13:21 → M ED INP 17:35 → M PCU 22:26 → M MS5PR 02-18 16:24
PROVIDERS: ADMIT Internal Medicine; ATTEND Internal Medicine
DX: J32.9 Chronic sinusitis, unspecified (principal); N18.4 Chronic kidney disease, stage 4 (severe); I50.32 Chronic diastolic (congestive) heart failure; E11.22 Type 2 diabetes mellitus with diabetic chronic kidney disease; G47.30 Sleep apnea, unspecified; R53.1 Weakness; R29.6 Repeated falls; I25.10 Atherosclerotic heart disease of native coronary artery without angina pectoris; Z95.3 Presence of xenogenic heart valve; J44.9 Chronic obstructive pulmonary disease, unspecified; E66.9 Obesity, unspecified; Z91.19 Patient's noncompliance with other medical treatment and regimen; Z95.1 Presence of aortocoronary bypass graft; E87.6 Hypokalemia; Z85.51 Personal history of malignant neoplasm of bladder; Z92.21 Personal history of antineoplastic chemotherapy; D63.8 Anemia in other chronic diseases classified elsewhere; Z87.891 Personal history of nicotine dependence; Z79.891 Long term (current) use of opiate analgesic; Z79.899 Other long term (current) drug therapy; Z88.0 Allergy status to penicillin; Z88.1 Allergy status to other antibiotic agents; Z68.38 Body mass index [BMI] 38.0-38.9, adult

== ENCOUNTER → 2019-03-08 | Outpatient (CLI) | payer MEDICARE, OTHER ==
[~2019-03-08] MED LIST changes: +AMIT24CA7 PO; +BACL10TA2 PO; +BENZ200C70 PO; +CO Q100C10 PO; +MAGN1.743 PO; +MORP-38 PO; +PRED1TABL PO; +PROBCAP14 PO; +TRIA1OI TOP; +[UNRECOGNIZED DRUG - REMARK] PO
--- NOTE | 2019-03-08 12:48 | REP ---
Bilateral upper extremity arterial and venous Doppler ultrasound: No History: Artery and vein mapping study. Pre arteriovenous fistula. Findings: There is no evidence of venous thrombosis in either upper extremity. No significant arterial disease is seen. Right upper extremity vein diameter chart: Upper humerus basilic 2.1 mm, cephalic 6.3 mm Lower humerus basilic 2.2 mm, cephalic 5.1 mm Upper forearm basilic 2.0 mm, cephalic 4.0 mm Lower forearm basilic 1.3 mm, cephalic 3.4 mm Median cubital 5.2 mm Left upper extremity vein diameter chart: Upper humerus basilic 4.7 mm, cephalic 5.8 mm Lower humerus basilic 4.3 mm, cephalic 5.4 mm Upper forearm basilic 2.3 mm, cephalic 3.7 mm Lower forearm basilic 1.7 mm, cephalic 2.8 mm Median cubital 3.2 mm Right upper extremity arterial Doppler velocity and size diameter chart: Axillary artery PSV 85 cm/S, 7.3 mm Brachial artery 91.9 cm/S, 4.6 mm Radial artery 94 cm/S, 2.0 mm ulnar artery 81 cm/S, 2.2 mm Left upper extremity arterial Doppler velocity and size diameter chart: Axillary artery PSV 92 cm/S, 6.4 mm Brachial artery 104 cm/S, 4.8 mm Radial artery 63 cm/S, 2.6 mm Ulnar artery 66 cm/S, 2.3 mm Electronically Signed by Agusto Kumar MD 03/08/2019 12:40 P
== END ==
LOC: M RAD 10:22
PROVIDERS: ATTEND Internal Medicine Nephrology
DX: Z86.718 Personal history of other venous thrombosis and embolism (principal)

== ENCOUNTER 2019-03-29 07:21 | Day surgery (SDC) | payer MEDICARE, OTHER ==
[~2019-03-29] VITALS: Ht 167.6 cm; Wt 110.2 kg
[~2019-03-29 07:21] MED LIST changes: -CALC12504 PO; +CALC500T61 PO; +LIDOCAINE 1% MDV 20ML VIAL SQ PRN; +NS 1,000 ML IV ONE; +VANCOMYCIN HCL 1,000 MG, VIAL MATE ADAPTER 1 EACH in D5W 250 ML IV ONE; +VANCOMYCIN HCL 500 MG in D5W MINI-BAG PLUS 100 ML IV ONE
[2019-03-29] MEDS ORDERED: LIDOCAINE 1% MDV 20ML VIAL ONE (07:22)
[2019-03-29] MEDS ORDERED: LIDOCAINE 2% INJ 100 MG/5 ML SDV (FOR ANES.) As Ordered ONE (08:05)
[2019-03-29] MEDS ORDERED: ONDANSETRON 4MG/2ML VIAL (J2405) As Ordered ONE (08:05)
[2019-03-29] MEDS ORDERED: PROPOFOL 200 MG/20 ML VIAL As Ordered ONE (08:05)
[2019-03-29] MEDS ORDERED: MIDAZOLAM INJ 2 MG/2 ML VIAL (J2250) As Ordered ONE ×2 (08:06→08:08)
[2019-03-29] MEDS ORDERED: fentaNYL 100 MCG/2 ML INJECTION (J3010) As Ordered ONE ×2 (08:06→08:08)
[2019-03-29] MEDS ORDERED: KETOROLAC 30 MG/ML VIAL (J1885) As Ordered ONE (08:52)
[2019-03-29] MEDS ORDERED: KETOROLAC 30 MG/ML VIAL (J1885) IV ONE (09:08)
[2019-03-29] MEDS ORDERED: IPRATROPIUM 0.5MG/ALBUTEROL 2.5MG INH SOL UD 3ML (DUONEB)(J7620) As Ordered ONE (09:09)
[2019-03-29] MEDS ORDERED: ISOVUE-300 61% 50ML VIAL (Q9967) As Ordered ONE (09:14)
[2019-03-29] MEDS ORDERED: LIDOCAINE 1% MDV 20ML VIAL As Ordered ONE (09:15)
[2019-03-29] MEDS ORDERED: HEPARIN SOD (PORCINE) 5000 UNITS/ML VIAL As Ordered ONE ×2 (09:15→10:09)
[2019-03-29] MEDS ORDERED: IPRATROPIUM 0.5MG/ALBUTEROL 2.5MG INH SOL UD 3ML (DUONEB)(J7620) NEB ONE (09:30)
[2019-03-29] MEDS ORDERED: HYDROCORTISONE 100 MG/2 ML VIAL (J1720) As Ordered ONE (10:23)
--- NOTE | 2019-03-29 11:48 | ROOPDOC ---
[facility] Report Of Operation Report of Operation DATE OF PROCEDURE: 03/29/19 PREPROCEDURE DIAGNOSES: Stage IV renal insufficiency POSTPROCEDURE DIAGNOSES: Same PROCEDURE: Left upper extremity brachiocephalic AV fistula creation SURGEON: Zeferino Galindo MD ANESTHESIA: Monitored anesthesia care with scalene block and local anesthesia INDICATION FOR PROCEDURE: Mr. Mckeon is a 73-year-old gentleman with significant cardiopulmonary comorbidities who is progressing from stage IV chronic renal insufficiency to stage 5 renal failure and requires access for dialysis in the future. Risks benefits and alternatives to AV fistula creation were explained. The patient underwent a vein mapping and we found that he was suitable for her brachiocephalic AV fistula creation in his left nondominant arm. After extensive counseling, the patient was agreeable to proceed and informed consent was obtained. PROCEDURE: The patient underwent a scalene block by our anesthesia colleagues preoperatively. He was brought to the OR in stable condition, although he did have pain in his left first toe that we think is secondary to gout and he had some wheezing preoperatively. Monitored anesthesia care was administered along with antibiotics without complication. A timeout was performed. Local anesthesia was administered to the skin and subcutaneous tissue just distal to the left antecubital crease the upper extremity. Transverse incision was made over the brachial artery pulse and carried down through the sub cutaneous tissue with Bovie cautery. The cephalic vein was identified and skeletonized proximally and distally within the incision. It had a significant number of branches proximally and distally that were suture ligated and divided. The flow from the basilic vein in the forearm to the basilic vein in the upper arm was preserved. Our dissection or seated down to the brachial artery which was also skeletonized proximally and distally within the incision. The symptoms were placed around the radial artery, the ulnar artery, and the brachial artery proper. The Vesseloops were secured and a 5 mm arteriotomy was made. The vein was transected and anastomosed to the artery in an end-to-side fashion with running 6-0 Prolene suture. Our bulldog clamp was removed from the vein and the proximal with lupus removed and good flow was noted through the fistula, and we then restored flow to the hand. There was a good radial pulse and an ulnar signal and a palmar arch signal. The hand was warm and pink. There was a good thrill in the fistula and I could Doppler unobstructed flow in the upper arm. We then irrigated the incision and reapproximated the deep layer with running Vicryl suture, and reapproximated the superficial layer with running Vicryl suture. The skin was closed with a running subcuticular Monocryl suture. The wound was cleaned and dried Mastisol and Steri-Strips were used to dress the wound. A sling was placed to protect the arm until the nerve block wears off in sensation and motor return to baseline. The patient was allowed to awaken from anesthesia and was taken back to PACU in stable condition. There were no drains or specimens for this case. ESTIMATED BLOOD LOSS: Approximately 50 mL. COMPLICATIONS: None. PLAN: Our plan is for the patient to return home today if he is hemodynamically stable. Because he has had a little bit of perioperative wheezing, if we feel he needs further optimization he will be admitted to the hospitalist service for pulmonary toileting. We would like to see him back in clinic in 1 week to check his fistula. We would like him to leave his Steri-Strips intact for 5-7 days. It is okay for him to start showering tomorrow, but he should be careful not to scrub off the Steri-Strips. It is okay for him to remove the sling once his sensory and motor function in the left upper extremity returned to baseline. He can do his normal ADLs but he should avoid strenuous activity or heavy lifting using the left upper extremity for 2 weeks. ZEFERINO GALINDO MD Mar 29, 2019 11:48
[2019-03-29] MEDS ORDERED: OXYC1TAB23 PO (11:54)
[2019-03-29] MEDS ORDERED: LR 1,000 ML IV SCH (12:15)
[2019-03-29] MEDS ORDERED: METOCLOPRAMIDE INJ 10MG/2ML VIAL (J2765) IV PRN (12:15)
[2019-03-29] MEDS ORDERED: PROMETHAZINE INJ 25 MG/ML VIAL (J2550) IV PRN (12:15)
[2019-03-29] MEDS ORDERED: fentaNYL 100 MCG/2 ML INJECTION (J3010) IV PRN (12:15)
[2019-03-29 13:45] VITALS: BP 157/72
== END 2019-03-29 13:00 | disposition home or self-care (01) ==
LOC: M SDC 07:21
PROVIDERS: ATTEND Surgery Vascular Surgery
DX: Z99.2 Dependence on renal dialysis (principal); G58.8 Other specified mononeuropathies; N18.4 Chronic kidney disease, stage 4 (severe); I49.3 Ventricular premature depolarization; I45.10 Unspecified right bundle-branch block; I25.2 Old myocardial infarction; E11.22 Type 2 diabetes mellitus with diabetic chronic kidney disease; I13.0 Hypertensive heart and chronic kidney disease with heart failure and stage 1 through stage 4 chronic kidney disease, or unspecified chronic kidney disease; K21.9 Gastro-esophageal reflux disease without esophagitis; E78.00 Pure hypercholesterolemia, unspecified; J44.9 Chronic obstructive pulmonary disease, unspecified; F41.9 Anxiety disorder, unspecified; F32.9 Major depressive disorder, single episode, unspecified; I50.9 Heart failure, unspecified; K64.8 Other hemorrhoids; M12.9 Arthropathy, unspecified; R06.83 Snoring; G47.33 Obstructive sleep apnea (adult) (pediatric); N40.0 Benign prostatic hyperplasia without lower urinary tract symptoms; Z88.0 Allergy status to penicillin; Z88.6 Allergy status to analgesic agent; Z79.899 Other long term (current) drug therapy; Z85.51 Personal history of malignant neoplasm of bladder; Z95.4 Presence of other heart-valve replacement; Z96.651 Presence of right artificial knee joint; Z96.1 Presence of intraocular lens; Z98.41 Cataract extraction status, right eye; Z98.42 Cataract extraction status, left eye; Z87.81 Personal history of (healed) traumatic fracture
CPT/HCPCS: 36821; 64415; J1720; J1885; J2405; J3370

== ENCOUNTER 2019-04-09 09:20 | Inpatient (IN) | payer MEDICARE, OTHER ==
[2019-04-09] VITALS (9 sets, daily range): BP systolic 134–137; BP diastolic 63–78; O2SAT 96–98
[~2019-04-09] VITALS: Ht 167.6 cm; Wt 111.8 kg
[~2019-04-09 09:20] MED LIST changes: +BACLOFEN 10 MG TAB PO PRN; +CALC12504 PO; -CALC500T61 PO; -LIDOCAINE 1% MDV 20ML VIAL SQ PRN; -NS 1,000 ML IV ONE; -VANCOMYCIN HCL 1,000 MG, VIAL MATE ADAPTER 1 EACH in D5W 250 ML IV ONE; -VANCOMYCIN HCL 500 MG in D5W MINI-BAG PLUS 100 ML IV ONE
[2019-04-09 10:38] LABS: BASO # 0.1 10^3/uL (0.0-0.2); BASO % 0.3 % (0.0-1.0); EOS # 0.2 10^3/uL (0.0-0.50); EOS % 1.4 % (0.0-3.0); HEMATOCRIT 31.4 % (42.0-52.0); HEMOGLOBIN 10.3 g/dl (13.5-17.5); LYMPH # 1.2 10^3/uL (1.5-4.5); MEAN CORPUSCULAR HEMOGLOBIN 31.4 pg (27.0-33.0); MEAN CORPUSCULAR HGB CONC 32.8 g/dl (32.0-36.5); MEAN CORPUSCULAR VOLUME 95.7 fl (80.0-96.0); MONO % 6.7 % (0.0-5.0); NEUTROPHILS # 11.9 10^3/uL (1.8-7.7); NEUTROPHILS % 81.6 % (36.0-66.0); PLATELET COUNT, AUTOMATED 147 10^3/uL (150-450); RED BLOOD COUNT 3.28 10^6/uL (4.30-6.10); WHITE BLOOD COUNT 14.6 10^3/uL (4.0-10.0)
[2019-04-09] MEDS ORDERED: CALC1TAB26 PO (10:39)
[2019-04-09] MEDS ORDERED: ACET25TA12 PO (10:39)
[2019-04-09] MEDS ORDERED: PARO20TA3 PO (10:39)
[2019-04-09] MEDS ORDERED: COQ-100C5 PO (10:39)
[2019-04-09] MEDS ORDERED: VITMTA PO (10:39)
[2019-04-09] MEDS ORDERED: BENZ200C70 PO (10:39)
[2019-04-09] MEDS ORDERED: CETI10TA8 PO (10:39)
[2019-04-09] MEDS ORDERED: HM V4000 PO (10:39)
[2019-04-09] MEDS ORDERED: MORP15TA2 PO (10:39)
[2019-04-09] MEDS ORDERED: ULOR80TA PO (10:39)
[2019-04-09] MEDS ORDERED: RANI15TA PO (10:39)
[2019-04-09] MEDS ORDERED: CARV6.25 PO (10:39)
[2019-04-09] MEDS ORDERED: CLOP75TA2 PO (10:39)
[2019-04-09] MEDS ORDERED: [UNRECOGNIZED DRUG - CODE] PO (10:39)
[2019-04-09] MEDS ORDERED: ATOR1TAB21 PO (10:39)
[2019-04-09] MEDS ORDERED: PROAAER10 INH (10:39)
[2019-04-09] MEDS ORDERED: PRED1TABL PO (10:39)
[2019-04-09] MEDS ORDERED: LACT10SO29 PO (10:39)
[2019-04-09] MEDS ORDERED: CALC1CAP31 PO (10:39)
[2019-04-09] MEDS ORDERED: SPIR-10 PO (10:39)
[2019-04-09] MEDS ORDERED: ALPR0.25 PO (10:39)
[2019-04-09] MEDS ORDERED: HYDR-3363 PO (10:39)
[2019-04-09] MEDS ORDERED: ALBU83IN INH (10:39)
[2019-04-09] MEDS ORDERED: BACL1TAB8 PO (10:39)
[2019-04-09] MEDS ORDERED: ASCO500T PO (10:39)
[2019-04-09] MEDS ORDERED: CINA30TA4 PO (10:39)
[2019-04-09] MEDS ORDERED: DOCU100C17 PO (10:39)
[2019-04-09] MEDS ORDERED: PROBCAP14 PO (10:39)
[2019-04-09] MEDS ORDERED: SPIR12.9 INH (10:39)
[2019-04-09] MEDS ORDERED: TORS100T PO ×2 (10:39)
[2019-04-09 10:59] LABS: INR 1.11; PROTHROMBIN TIME 14.5 SECONDS (12.1-14.4)
[2019-04-09 11:14] LABS: ALBUMIN 3.5 GM/DL (3.2-5.2); BILIRUBIN,DIRECT 0.2 MG/DL (0.0-0.2); BILIRUBIN,TOTAL 0.5 MG/DL (0.2-1.0); CK-MB VALUE MASS 2.1 NG/ML (<3.6); MAGNESIUM LEVEL 1.6 MG/DL (1.8-2.4); MB/CK RELATIVE INDEX 3.09 (< OR =4); THYROID STIMULATING HORMONE 1.46 uIU/ML (0.358-3.740); THYROXINE (T4) 7.6 UG/DL (4.5-12.0); TOTAL PROTEIN 6.9 GM/DL (6.4-8.2); TROPONIN I 0.03 NG/ML (< 0.10)
--- NOTE | 2019-04-09 11:17 | REP ---
CT Head without contrast HISTORY: Fall COMPARISON: 02/16/2019 Areas of decreased attenuation are present in the periventricular white matter. This represents small-vessel ischemic disease. There is no intraparenchymal hemorrhage, acute infarct, mass or midline shift. The ventricular system the ventricular system and cortical sulci are dilated consistent with mild volume loss. There is no extra cerebral collection. There is no fracture. The visualized sinuses are clear. IMPRESSION: 1. Small vessel ischemic disease. 2. Mild volume loss. Electronically Signed by Nayan Gould MD 04/09/2019 11:09 A
--- NOTE | 2019-04-09 11:21 | REP ---
CT cervical spine without contrast HISTORY: Fall COMPARISON: 09/27/2017 There is no acute fracture or subluxation. A disc bulge is present at the C2-3 level. Disc bulges with associated osteophyte formation are present at the C3-4 through C6-7 levels. There is minimal narrowing of the spinal canal. Uncinate process and/or facet hypertrophy are present at the C2-3 through C7-T1 levels. These findings produce minimal to severe narrowing of the neural foramina. The C3-4 through C7-T1 intervertebral discs are decreased in height consistent with disc degeneration. IMPRESSION: 1. There is no acute fracture or subluxation. 2. There is cervical spondylosis at the C2-3 through C7-T1 levels. Electronically Signed by Nayan Gould MD 04/09/2019 11:12 A
--- NOTE | 2019-04-09 11:27 | REP ---
CT thoracic spine without contrast. HISTORY: Fall COMPARISON : None There is no acute fracture or subluxation. Posterior osteophytes are present at the the T4-5 and T5-6 through T8-T9 levels. Disc bulges are present at the T9-10 through T10-11 of levels. A disc bulge with associated osteophyte formation is present at the T12-L1 level. There is minimal narrowing of the spinal canal. The neural foramina are patent. There is loss of height of multiple thoracic intervertebral discs. Vacuum phenomenon is present at the T9-10 through T12-L1 levels. These findings are consistent with disc degeneration. A dorsal column stimulator is present in the spinal canal at the T7-8 level. IMPRESSION: 1. There is no acute fracture or subluxation. 2. Degenerative change as described above. Electronically Signed by Nayan Gould MD 04/09/2019 11:18 A
--- NOTE | 2019-04-09 11:32 | REP ---
CT Lumbar Spine without contrast HISTORY: Fall COMPARISON: None A disc bulge with associated osteophyte formation is present at the T12-L1 level. There is minimal compression of the thecal sac. The T12 neural foramina are patent. A diffuse disc bulge is present at the L1-2 level. There is minimal compression of the thecal sac. The L1 nerves exit the neural foramina without compression. A diffuse disc bulge is present at the L2-3 level. There are 2 mm of retrolisthesis of L2-3. There is minimal compression of the thecal sac. There is hypertrophy of the posterior articulating facets. The L2 nerves exit the neural foramina without compression. A diffuse disc bulge is present at the L3-4 level. There is hypertrophy of the ligamenta flava and posterior articulating facets. These findings produce mild central canal stenosis. The L3 nerves exit the neural foramina without compression. A diffuse disc bulge is present at the L4-5 level. There is minimal compression of the thecal sac. There is hypertrophy of the posterior articulating facets. The L4 nerves exit the neural foramina without compression. A diffuse disc bulge with associated osteophyte formation is present in the L5-L1 level. There is minimal compression of the thecal sac and right S1 nerve as it exits the thecal sac. There is hypertrophy of the posterior articulating facets. There is compression of the L5 nerves in the neural foramina. The T12-L1 through L5-L1 intervertebral discs are decreased in height. Vacuum phenomenon is present at the T12-L1 through L4-5 levels. These findings are consistent with disc degeneration. There is no fracture. The IMPRESSION: 1. Diffuse disc bulge at the L1-2 and L4-5 levels with minimal thecal sac compression. 2. Diffuse disc bulge and retrolisthesis at the L2-3 level with minimal thecal sac compression. 3. Mild central canal stenosis at the L3-4 level secondary to disc bulge, ligamentous and facet hypertrophy. 4. Diffuse disc bulge with associated osteophyte formation at the L5-L1 level with minimal compression of the thecal sac and right S1 nerve as it exits the thecal sac. There is compression of the L5 nerves in the neural foramina. Electronically Signed by Nayan Gould MD 04/09/2019 11:24 A
[2019-04-09] MEDS ORDERED: MAG SULF 1GM/100ML (MAG RUN) 1 GM in APPROPRIATE DILUENT 1 EA IV ONE (11:45)
[2019-04-09] MEDS ORDERED: PERCOCET 5MG/325MG TAB PO ONE (12:00)
[2019-04-09] MEDS ORDERED: FUROSEMIDE 100 MG/10 ML VIAL (J1940) IV ONE (12:00)
[2019-04-09] MEDS ORDERED: ACETAMINOPHEN TAB 650MG DOSE (2X325MG) PO PRN (12:45)
[2019-04-09] MEDS ORDERED: MAALOX 30 ML SUSP *UDC PO PRN (12:45)
[2019-04-09] MEDS ORDERED: MOM 30ML SUSPENSION UDC PO PRN (12:45)
--- NOTE | 2019-04-09 13:28 | ECGEPIP ---
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
--- NOTE | 2019-04-09 13:43 | HPEPDOC ---
General Date of Admission Apr 09, 2019 at 12:45 Date of Service: Apr 09, 2019 Other Providers gil Chief Complaint The patient is a 73-year-old male admitted with a reason for visit of Acute Kidn ey Injury Volume Overload. Source: Patient, Family Exam Limitations: No limitations Timing/Duration: Unsure History of Present Illness 73 years old white male with past medical history of CAD, diabetes mellitus, restrictive lung disease has been complaining of shortness of breath since last 1 month, which is probably allergic progressively getting worse, patient has been seen by his PCP and nephrology and medicine. Medications were adjusted, but without any success. Patient was referred to ER secondary to increasing shortness of breath Home Medications Scheduled Ascorbic Acid (Ascorbic Acid) 500 Mg Tablet, 500 MG PO DAILY, (Reported) Atorvastatin Calcium (Atorvastatin Calcium) 20 Mg Tablet, 20 MG PO QHS, (Reported) Calcitriol (Calcitriol) 0.25 Mcg Capsule, 0.25 MCG PO QHS, (Reported) Calcium Carbonate/Vitamin D3 (Calcium 600-Vit D3 800 Tablet) 1 Each Tablet, 1 TAB PO DAILY, (Reported) TAKES AT 1400 Carvedilol (Carvedilol) 6.25 Mg Tablet, 6.25 MG PO BID, (Reported) Cetirizine HCl (Cetirizine HCl) 10 Mg Tablet, 10 MG PO QHS, (Reported) Cholecalciferol (Vitamin D3) (Vitamin D3) 4,000 Unit Capsule, 4,000 UNIT PO DAILY, (Reported) Cinacalcet (Sensipar) 30 Mg Tablet, 30 MG PO QWEEK, (Reported) TAKES ON FRIDAY MORNINGS Clopidogrel Bisulfate (Clopidogrel) 75 Mg Tablet, 75 MG PO DAILY, (Reported) Docusate Sodium (Docusate Sodium) 100 Mg Capsule, 100 MG PO BID, (Reported) Febuxostat (Uloric) 80 Mg Tablet, 80 MG PO QHS, (Reported) Lactobacillus Acidophilus (Probiotic) 1 Each Capsule, 1 CAP PO QHS, (Reported) Morphine Sulfate (Morphine Sulfate) 15 Mg Tablet, 15 MG PO TID, (Reported) Multivitamins (Thera M Plus Tablet) 1 Each Tablet, 1 TAB PO DAILY, (Reported) Naldemedine Tosylate (Symproic) 0.2 Mg Tablet, 0.2 MG PO DAILY, (Reported) Paroxetine HCl (Paroxetine HCl) 20 Mg Tablet, 20 MG PO QHS, (Reported) Prednisone (Prednisone) 1 Mg Tablet, 8 MG PO DAILY, (Reported) Ranitidine Hcl (Ranitidine HCl) 150 Mg Tablet, 1 TAB PO DAILY, (Reported) TAKES AT 1400 Spironolactone (Spironolactone) 25 Mg Tablet, 25 MG PO QPM, (Reported) TAKES AROUND 1800 Tiotropium [place] (Spiriva Respimat) 4 Gm Mist.inhal, 2 INHALATION INH DAILY, (Reported) Torsemide (Torsemide) 100 Mg Tablet, 200 MG PO QAM, (Reported) Torsemide (Torsemide) 100 Mg Tablet, 100 MG PO DAILY, (Reported) TAKES AT 1400 Ubidecarenone (Coq-10) 100 Mg Capsule, 100 MG PO BID, (Reported) Scheduled PRN Acetaminophen/Diphenhydramine (Acetaminophen Pm Caplet) 1 Each Tablet, 2 TAB PO QHS PRN for SLEEP, (Reported) Albuterol Sulf (Albuterol Sulfate) 2.5 Mg/3 Ml Vial.neb, 2.5 MG INH Q2H PRN for SOB/WHEEZING, (Reported) Albuterol Sulfate (Proair Hfa) 8.5 Gm Hfa.aer.ad, 2 PUFF INH QID PRN for SHORTNESS OF BREATH, (Reported) Alprazolam (Alprazolam) 0.25 Mg Tablet, 0.25 MG PO TID PRN for ANXIETY, (Reported) Baclofen (Baclofen) 10 Mg Tablet, 10 MG PO BID PRN for MUSCLE SPASMS, (Reported) Benzonatate (Benzonatate) 200 Mg Capsule, 200 MG PO TID PRN for COUGH, (Reported) Hydroxyzine HCl (Hydroxyzine HCl) 25 Mg Tablet, 25 MG PO TID PRN for ITCHING, (Reported) Lactulose (Lactulose) 10 Gm/15 Ml Solution, 30 ML PO DAILY PRN for CONSTIPATION, (Reported) Allergies Coded Allergies: aspirin (Verified Allergy, Severe, LIPS SWELL, 03/29/19) ampicillin (Verified Allergy, Intermediate, HIVES, 03/17/19) Penicillins (Verified Allergy, Mild, RASH, 03/17/19) ceftriaxone (Verified Allergy, Unknown, UNKNOWN REACTION, 04/09/19) Past Medical History Medical History As per HPI Surgical History Quadruple bypass, knee replacement, elbow surgery, spinal stimulator, bladder surgeries, double wall replacement, cataract surgery, fistula repair Family History Significant Family History: No pertinent family hx Social History * Smoker: Denies Alcohol: Denies Drugs: denies A-FIB/CHADSVASC A-FIB History Current/History of A-Fib/PAF?: No Review of Systems Constitutional: Reports: Fatigue Eyes: Denies: Pain, Vision change, Conjunctivae inflammation, Eyelid inflammation, Redness, Other Skin: Denies: Rash, Lesions, Jaundice, Bruising, Itching, Dry, Breakdown, Nail Changes, Other Pulmonary: Reports: Dyspnea Cardiovascular: Reports: Orthopnea Gastrointestinal: Denies: Nausea, Vomiting, Abdominal Pain, Diarrhea, Constipation, Melena, Hematochezia, Other Symptoms Genitourinary: Denies: Dysuria, Frequency, Incontinence, Hematuria, Retention, Other Symptoms Hematologic: Denies: Bruising, Bleeding Excessively, Petecchia, Purpura, Enlarged Lymph Nodes, Other Hematologic Endocrine: Denies: Polydipsia, Polyphagia, Polyuria, Heat Intolerance, Cold Intolerance, Other Endocrine Sx Musculoskeletal: Denies: Neck Pain, Back Pain, Shoulder Pain, Arm Pain, Hand Pain, Leg Pain, Foot Pain, Joint Pain, Muscle Pain, Spasms, Other Symptoms Neurological: Denies: Weakness, Numbness, Incoordination, Change in speech, Confusion, Seizures, Other Symptoms Psych: Denies: Mood Normal, Anxiety, Depression, Memory Issues, Thoughts of Self Harm, Anger, Thoughts of Harming Other, Other Psych Physical Examination General Exam: Positive: Alert, Cooperative Eye Exam: Positive: PERRLA ENT Exam: Positive: Atraumatic, Mucous membr. moist/pink Neck Exam: Positive: Supple Chest Exam: Positive: Clear to auscultation, Normal air movement Heart Exam: Positive: Rate Normal, Normal S1, Normal S2 Abdomen Exam: Positive: Normal bowel sounds Extremity Exam: Positive: Normal pulses Skin Exam: Positive: Nl turgor and temperature Neuro Exam: Positive: Cranial Nerves 3-12 NL, Reflexes 2+ Psych Exam: Positive: Mental status NL, Mood NL, Oriented x 3 Vital Signs Vital Signs Date Time Temp Pulse Resp B/P (MAP) Pulse Ox O2 Delivery O2 Flow Rate FiO2 04/09/19 12:30 87 19 132/82 (99) 97 04/09/19 09:48 Room Air 04/09/19 09:20 96.5 Laboratory Data Labs 24H Laboratory Tests 2 04/09/19 10:21: POC Glucose (Misc Panel) 171H, POC Sodium (Misc Panel) 135L, POC Potassium (Misc Panel) 4.1, POC Chloride (Misc Panel) 95L, POC Total CO2 (Misc Panel) 28.0H, POC Blood Urea Nitrogen (Misc Panel 90H, POC Ionized Calcium (Misc Panel) 3.5*L, POC Creatinine (Misc Panel) 2.8H, POC Hematocrit (Misc Panel) 29.0L 04/09/19 10:22: Prothrombin Time 14.5H, Prothromb Time International Ratio 1.11 04/09/19 10:23: Immature Granulocyte % (Auto) 2.0, White Blood Count 14.6H, Red Blood Count 3.28L, Hemoglobin 10.3L, Hematocrit 31.4L, Mean Corpuscular Volume 95.7, Mean Corpuscular Hemoglobin 31.4, Mean Corpuscular Hemoglobin Concent 32.8, Red Cell Distribution Width 14.6H, Platelet Count 147L, Neutrophils (%) (Auto) 81.6H, Lymphocytes (%) (Auto) 8.0L, Monocytes (%) (Auto) 6.7H, Eosinophils (%) (Auto) 1.4, Basophils (%) (Auto) 0.3, Neutrophils # (Auto) 11.9H, Lymphocytes # (Auto) 1.2L, Monocytes # (Auto) 1.0H, Eosinophils # (Auto) 0.2, Basophils # (Auto) 0.1, Nucleated Red Blood Cells % (auto) 0.0, Magnesium Level 1.6L, Aspartate Amino Transf (AST/SGOT) 17, Alanine Aminotransferase (ALT/SGPT) 26, Alkaline Phosphatase 114, Total Bilirubin 0.5, Direct Bilirubin 0.2, Total Creatine K inase 68, Creatine Kinase MB 2.1, Creatine Kinase MB Relative Index 3.09, Troponin I 0.03, GH-[id number]-[id number]-Type Natriuretic Peptide 1975H, Total Protein 6.9, Albumin 3.5, Albumin/Globulin Ratio 1.03, Thyroid Stimulating Hormone (TSH) 1.460, Thyroxine (T4) 7.6 CBC/BMP Laboratory Tests 04/09/19 10:23 Red Blood Count 3.28 L, Mean Corpuscular Volume 95.7, Mean Corpuscular Hemoglobin 31.4, Mean Corpuscular Hemoglobin Concent 32.8, Red Cell Distribution Width 14.6 H, Neutrophils (%) (Auto) 81.6 H, Lymphocytes (%) (Auto) 8.0 L, Monocytes (%) (Auto) 6.7 H, Eosinophils (%) (Auto) 1.4, Basophils (%) (Auto) 0.3, Neutrophils # (Auto) 11.9 H, Lymphocytes # (Auto) 1.2 L, Monocytes # (Auto) 1.0 H, Eosinophils # (Auto) 0.2, Basophils # (Auto) 0.1 Microbiology Microbiology 04/09/19 Blood Culture, Received Pending 04/09/19 Blood Culture, Received Pending Problems (1) Acute kidney injury Status: Acute Problem Text: Admit to PCU floor with telemetry Saline lock Strict I and O's Lasix 80 mg IV every 12 hours Hold home diuretic meds Continue all other home meds Oxygen support DVT prophylaxis with heparin Nephrology consult with Dr. Hope Further, as per nephrology recommendation (2) Volume overload Status: Acute Plan / VTE VTE Prophylaxis Ordered?: Yes PALAK LOVE MD Apr 09, 2019 13:43
[2019-04-09] MEDS ORDERED: ALBUTEROL SULFATE 2.5 MG/0.5 ML INH NEB SOLN INH PRN (14:00)
[2019-04-09] MEDS ORDERED: GLUCAGON FOR INJ 1 MG VIAL (J1610) SC PRN (14:00)
[2019-04-09] MEDS ORDERED: DEXTROSE 50% 50 ML SYRINGE IV PRN (14:00)
[2019-04-09] MEDS ORDERED: LACTULOSE 20 GM/30 ML SYRUP UD PO PRN (14:00)
[2019-04-09] MEDS ORDERED: GLUCOSE 4 GM CHEW TABLET PO PRN (14:00)
--- NOTE | 2019-04-09 14:46 | REP ---
Oral chest x-ray: Single view. History: Dyspnea and cough. Comparison chest x-ray: February 16, 2019. Findings: The patient is status post prior median sternotomy. EKG monitoring electrodes are noted. Dorsal column stimulator leads are seen in the thoracic spine. Heart size is borderline as before. There is minimal fissural thickening in the minor fissure. No pleural angle blunting is seen. Pulmonary vasculature is cephalized. No definite focal infiltrate. Impression: Borderline heart size and cephalization. No definite focal infiltrate. Prior sternotomy. Dorsal column stimulator leads. Electronically Signed by Agusto Kumar MD 04/09/2019 10:21 A
[2019-04-09] MEDS ORDERED: hydrOXYzine 25 MG TAB PO PRN (16:00)
[2019-04-09] MEDS ORDERED: BENZONATATE 100 MG CAP PO PRN (16:00)
[2019-04-09] MEDS: MORPHINE 30 MG TAB **MSIR PO SCH ×2 (16:11→20:29)
[2019-04-09] MEDS: FAMOTIDINE 20 MG TAB PO SCH (16:11)
[2019-04-09] MEDS: HumaLOG INSULIN (NovoLOG) PER UNIT SC SCH ×2 (17:25→20:29)
[2019-04-09] MEDS: FEBUXOSTAT 40 MG TABLET (ULORIC) PO SCH (20:26)
[2019-04-09] MEDS: ATORVASTATIN 20 MG TAB PO SCH (20:26)
[2019-04-09] MEDS: DOCUSATE SODIUM 100 MG CAP PO SCH (20:26)
[2019-04-09] MEDS: CETIRIZINE (ZyrTEC) 10 MG TAB PO SCH (20:26)
[2019-04-09] MEDS: PARoxetine 20 MG TAB PO SCH (20:27)
[2019-04-09] MEDS: CARVedilol 6.25 MG TAB PO SCH (20:27)
[2019-04-09] MEDS: HEPARIN SOD (PORCINE) 5000 UNITS/ML VIAL SC SCH (20:29)
[2019-04-10] VITALS (16 sets, daily range): BP systolic 118–145; BP diastolic 62–83; O2SAT 88–95
[2019-04-10] MEDS: FUROSEMIDE 100 MG/10 ML VIAL (J1940) IV SCH ×2 (00:17→12:05)
[2019-04-10] MEDS: PERCOCET 5MG/325MG TAB PO PRN (03:36)
[2019-04-10 05:25] LABS: HEMATOCRIT 29.6 % (42.0-52.0); HEMOGLOBIN 9.4 g/dl (13.5-17.5); MEAN CORPUSCULAR HEMOGLOBIN 30.2 pg (27.0-33.0); MEAN CORPUSCULAR HGB CONC 31.8 g/dl (32.0-36.5); MEAN CORPUSCULAR VOLUME 95.2 fl (80.0-96.0); PLATELET COUNT, AUTOMATED 145 10^3/uL (150-450); RED BLOOD COUNT 3.11 10^6/uL (4.30-6.10); WHITE BLOOD COUNT 12.7 10^3/uL (4.0-10.0)
[2019-04-10 05:50] LABS: ALBUMIN 3.1 GM/DL (3.2-5.2); BILIRUBIN,TOTAL 0.5 MG/DL (0.2-1.0); CALCIUM LEVEL 7.7 MG/DL (8.8-10.2); CREATININE FOR GFR 2.64 MG/DL (0.70-1.30); GLOMERULAR FILTRATION RATE 25.4 (>42); TOTAL PROTEIN 6.7 GM/DL (6.4-8.2)
[2019-04-10] MEDS: predniSONE 1 MG TAB PO SCH (08:25)
[2019-04-10] MEDS: CLOPIDOGREL 75 MG TAB PO SCH (08:25)
[2019-04-10] MEDS: DOCUSATE SODIUM 100 MG CAP PO SCH ×2 (08:25→21:23)
[2019-04-10] MEDS: MULTIVITAMINS/MINERALS THERAP 1 TAB PO SCH (08:25)
[2019-04-10] MEDS: CARVedilol 6.25 MG TAB PO SCH ×2 (08:26→21:24)
[2019-04-10] MEDS: HEPARIN SOD (PORCINE) 5000 UNITS/ML VIAL SC SCH ×2 (08:26→21:25)
[2019-04-10] MEDS: MORPHINE 30 MG TAB **MSIR PO SCH ×3 (08:26→21:24)
[2019-04-10] MEDS: HumaLOG INSULIN (NovoLOG) PER UNIT SC SCH ×4 (08:27→21:00)
[2019-04-10] MEDS ORDERED: SODIUM CHLORIDE NASAL 0.65% SPRAY BTL (OCEAN) PRN (08:45)
[2019-04-10] MEDS ORDERED: ASCORBIC ACID 500 MG TAB PO SCH (09:00)
--- NOTE | 2019-04-10 09:29 | IPNPDOC ---
Subjective Date Seen The patient was seen on 04/10/19. Subjective Chief Complaint/HPI Patient feels better but still has mild short of breath, has been drinking a lot of Pepsi as per nursing report General: Denies: ROS Unobtainable, Chills, Night Sweats, Fatigue, Malaise, Normal Appetite, Other Symptoms Constitutional: Denies: Chills, Fever, Malaise, Night Sweats, Weakness, Fatigue, Weight Loss, Lethargy, Other Eyes: Denies: Pain, Vision change, Conjunctivae inflammation, Eyelid inflammation, Redness, Other ENT: Denies: Head Aches, Ear Pain, Dysphagia, Sinus Congestion, Post Nasal Drip, Sore Throat, Epistaxis, Other Symptoms Skin: Denies: Rash, Lesions, Jaundice, Bruising, Itching, Dry, Breakdown, Nail Changes, Other Pulmonary: Reports: Dyspnea Cardiovascular: Denies: Chest Pain, Palpitations, Orthopnea, Paroxysmal Noc. Dyspnea, Edema, Lt Headedness, Other Symptoms Gastrointestinal: Denies: Nausea, Vomiting, Abdominal Pain, Diarrhea, Constip ation, Melena, Hematochezia, Other Symptoms Neurological: Denies: Weakness, Numbness, Incoordination, Change in speech, Confusion, Seizures, Other Symptoms Objective Physical Examination General Exam: Positive: Alert, Cooperative Eye Exam: Positive: PERRLA ENT Exam: Positive: Atraumatic, Mucous membr. moist/pink Neck Exam: Positive: Supple Chest Exam: Positive: Clear to auscultation, Normal air movement Heart Exam: Positive: Rate Normal, Normal S1, Normal S2 Abdomen Exam: Positive: Normal bowel sounds Extremity Exam: Positive: Normal pulses Skin Exam: Positive: Nl turgor and temperature Neuro Exam: Positive: Cranial Nerves 3-12 NL, Reflexes 2+ Psych Exam: Positive: Mental status NL, Mood NL, Oriented x 3 Assessment /Plan Problems (1) Acute kidney injury Status: Acute Problem Text: Admit to PCU floor with telemetry Saline lock Strict I and O's Lasix 80 mg IV every 12 hours Hold home diuretic meds Continue all other home meds Oxygen support Patient was counseled regarding abstinence from carbonated drinks DVT prophylaxis with heparin Spoke with Dr. Hope yesterday. Patient will be seen by Dr. Gomez today Further recommendations as per nephrology (2) Volume overload Status: Acute Plan/VTE VTE Prophylaxis Ordered?: Yes VS, I&O, 24H, [place] Vital Signs/I&O Vital Signs Date Time Temp Pulse Resp B/P (MAP) Pulse Ox O2 Delivery O2 Flow Rate FiO2 04/10/19 08:56 17 04/10/19 08:26 79 128/62 04/10/19 08:00 98.4 95 04/10/19 06:00 Room Air 04/10/19 04:00 2.0 I&O- Last 24 Hours up to 6 AM 04/10/19 06:00 Intake Total 755 ml Output Total 1475 ml Balance -720 ml Laboratory Data 24H LABS Laboratory Tests 2 04/09/19 10:21: POC Glucose (Misc Panel) 171H, POC Sodium (Misc Panel) 135L, POC Potassium (Misc Panel) 4.1, POC Chloride (Misc Panel) 95L, POC Total CO2 (Misc Panel) 28.0H, POC Blood Urea Nitrogen (Misc Panel 90H, POC Ionized Calcium (Misc Panel) 3.5*L, POC Creatinine (Misc Panel) 2.8H, POC Hematocrit (Misc Panel) 29.0L 04/09/19 10:22: Prothrombin Time 14.5H, Prothromb Time International Ratio 1.11 04/09/19 10:23: Immature Granulocyte % (Auto) 2.0, White Blood Count 14.6H, Red Blood Count 3.28L, Hemoglobin 10.3L, Hematocrit 31.4L, Mean Corpuscular Volume 95.7, Mean Corpuscular Hemoglobin 31.4, Mean Corpuscular Hemoglobin Concent 32.8, Red Cell Distribution Width 14.6H, Platelet Count 147L, Neutrophils (%) (Auto) 81.6H, Lymphocytes (%) (Auto) 8.0L, Monocytes (%) (Auto) 6.7H, Eosinophils (%) (Auto) 1.4, Basophils (%) (Auto) 0.3, Neutrophils # (Auto) 11.9H, Lymphocytes # (Auto) 1.2L, Monocytes # (Auto) 1.0H, Eosinophils # (Auto) 0.2, Basophils # (Auto) 0.1, Nucleated Red Blood Cells % (auto) 0.0, Magnesium Level 1.6L, Aspartate Amino Transf (AST/SGOT) 17, Alanine Aminotransferase (ALT/SGPT) 26, Alkaline Phosphatase 114, Total Bilirubin 0.5, Direct Bilirubin 0.2, Total Creatine Kinase 68, Creatine Kinase MB 2.1, Creatine Kinase MB Relative Index 3.09, Troponin I 0.03, BT-[id number]-Type Natriuretic Peptide 1975H, Total Protein 6.9, Albumin 3.5, Albumin/Globulin Ratio 1.03, Thyroid Stimulating Hormone (TSH) 1.460, Thyroxine (T4) 7.6 04/09/19 16:59: Bedside Glucose (Misc Panel) 152H 04/09/19 20:16: Bedside Glucose (Misc Panel) 142H 04/10/19 05:00: Nucleated Red Blood Cells % (auto) 0.0, Anion Gap 4L, Glomerular Filtration Rate 25.4L, Blood Urea Nitrogen 82H, Creatinine 2.64H, Sodium Level 139, Potassium Le mark anthony 4.0, Chloride Level 98, Carbon Dioxide Level 37H, Calcium Level 7.7L, Aspartate Amino Transf (AST/SGOT) 15, Alanine Aminotransferase (ALT/SGPT) 25, Alkaline Phosphatase 109, Total Bilirubin 0.5, Total Protein 6.7, Albumin 3.1L, Albumin/Globulin Ratio 0.86L CBC/BMP Laboratory Tests 04/09/19 10:23 Red Blood Count 3.28 L, Mean Corpuscular Volume 95.7, Mean Corpuscular Hemogl obin 31.4, Mean Corpuscular Hemoglobin Concent 32.8, Red Cell Distribution Width 14.6 H, Neutrophils (%) (Auto) 81.6 H, Lymphocytes (%) (Auto) 8.0 L, Monocytes (%) (Auto) 6.7 H, Eosinophils (%) (Auto) 1.4, Basophils (%) (Auto) 0.3, Neutrophils # (Auto) 11.9 H, Lymphocytes # (Auto) 1.2 L, Monocytes # (Auto) 1.0 H, Eosinophils # (Auto) 0.2, Basophils # (Auto) 0.1 04/10/19 05:00 Red Blood Count 3.11 L, Mean Corpuscular Volume 95.2, Mean Corpuscular Hemoglobin 30.2, Mean Corpuscular Hemoglobin Concent 31.8 L, Red Cell Distribution Width 14.6 H, Calcium Level 7.7 L, Aspartate Amino Transf (AST/SGOT) 15, Alanine Aminotransferase (ALT/SGPT) 25, Alkaline Phosphatase 109, Total Bilirubin 0.5, Total Protein 6.7, Albumin 3.1 L Microbiology Microbiology 04/09/19 Blood Culture, Received Pending 04/09/19 Blood Culture, Received Pending PALAK LOVE MD Apr 10, 2019 09:29
[2019-04-10] MEDS ORDERED: POTASSIUM CHLORIDE 10 MEQ SR TABLET PO ONE (11:15)
[2019-04-10] MEDS ORDERED: CHLOROTHIAZIDE 500 MG VIAL (J1205) IV ONE (12:00)
[2019-04-10] MEDS: FAMOTIDINE 20 MG TAB PO SCH (14:26)
[2019-04-10] MEDS: PARoxetine 20 MG TAB PO SCH (21:23)
[2019-04-10] MEDS: CETIRIZINE (ZyrTEC) 10 MG TAB PO SCH (21:24)
[2019-04-10] MEDS: ATORVASTATIN 20 MG TAB PO SCH (21:24)
[2019-04-10] MEDS: FEBUXOSTAT 40 MG TABLET (ULORIC) PO SCH (21:25)
[2019-04-11] VITALS (22 sets, daily range): BP systolic 109–156; BP diastolic 52–82; O2SAT 90–95
[2019-04-11] MEDS: FUROSEMIDE 100 MG/10 ML VIAL (J1940) IV SCH ×3 (00:10→23:43)
[2019-04-11] MEDS: PERCOCET 5MG/325MG TAB PO PRN (00:11)
[2019-04-11 05:40] LABS: HEMATOCRIT 30.4 % (42.0-52.0); HEMOGLOBIN 9.9 g/dl (13.5-17.5); MEAN CORPUSCULAR HGB CONC 32.6 g/dl (32.0-36.5); MEAN CORPUSCULAR VOLUME 95.3 fl (80.0-96.0); PLATELET COUNT, AUTOMATED 154 10^3/uL (150-450); RED BLOOD COUNT 3.19 10^6/uL (4.30-6.10); WHITE BLOOD COUNT 11.4 10^3/uL (4.0-10.0)
[2019-04-11 06:06] LABS: CREATININE FOR GFR 2.63 MG/DL (0.70-1.30); GLOMERULAR FILTRATION RATE 25.5 (>42)
[2019-04-11 06:07] LABS: ALBUMIN 3.5 GM/DL (3.2-5.2); BILIRUBIN,TOTAL 0.5 MG/DL (0.2-1.0); CALCIUM LEVEL 7.9 MG/DL (8.8-10.2); MAGNESIUM LEVEL 1.7 MG/DL (1.8-2.4); TOTAL PROTEIN 6.4 GM/DL (6.4-8.2)
[2019-04-11] MEDS ORDERED: PILL CUTTER 1 EACH XX PRN (08:45)
[2019-04-11] MEDS: MULTIVITAMINS/MINERALS THERAP 1 TAB PO SCH (09:02)
[2019-04-11] MEDS: CLOPIDOGREL 75 MG TAB PO SCH (09:02)
[2019-04-11] MEDS: predniSONE 1 MG TAB PO SCH (09:02)
[2019-04-11] MEDS: CARVedilol 6.25 MG TAB PO SCH ×2 (09:03→21:01)
[2019-04-11] MEDS: DOCUSATE SODIUM 100 MG CAP PO SCH ×2 (09:03→21:01)
[2019-04-11] MEDS: HumaLOG INSULIN (NovoLOG) PER UNIT SC SCH ×4 (09:04→21:00)
[2019-04-11] MEDS: HEPARIN SOD (PORCINE) 5000 UNITS/ML VIAL SC SCH ×2 (09:06→21:02)
[2019-04-11] MEDS: MORPHINE 30 MG TAB **MSIR PO SCH ×3 (09:29→20:59)
[2019-04-11] MEDS ORDERED: SLF 3 ML SYR IV PRN (10:45)
[2019-04-11] MEDS: ALPRAZolam 0.25 MG TAB PO PRN ×2 (11:19→21:07)
[2019-04-11] MEDS: ALBUTEROL 90 MCG/ACT 8GM HFA INHALER INH PRN ×3 (12:25→22:51)
[2019-04-11] MEDS: SLF 3 ML SYR IV SCH ×2 (12:51→22:00)
--- NOTE | 2019-04-11 14:32 | CR ---
DATE OF CONSULTATION: 04/10/2019 REQUESTING PHYSICIAN: Dr. Hilario CONSULTING PHYSICIAN: Dr. Carrasco REASON FOR CONSULTATION: Management of acute kidney disease superimposed on chronic kidney disease in the setting of volume overload. HISTORY OF PRESENT ILLNESS: Mr. Maik Mckeon is a 73-year-old male with past medical history of chronic kidney disease stage IV, chronic diastolic congestive heart failure, multiple other comorbidities as mentioned below, well-known to nephrology service from previous hospitalizations and from outpatient nephrology visits. He presented to the hospital yesterday with progressive shortness of breath and lower extremity edema. The patient also reported that he tripped over his dog at home and he hurt his back as well. He was admitted under the hospitalist service last night. He was started on IV diuretics. Laboratories done on admission showed a creatinine of 2.6. Nephrology service was called for further help in the management of this patient's volume status with history of chronic kidney disease stage IV. I saw and evaluated the patient this morning at the bed at the bedside. He was sitting on the sofa. The patient reported that since last night when he was first started on IV diuretics that his leg swelling is slightly better today as compared with yesterday and his breathing is improving. PAST MEDICAL HISTORY: Past medical history of chronic kidney disease stage IV, history of hypertension, chronic diastolic congestive heart failure, diabetes mellitus type 2, coronary artery disease, secondary hyperparathyroidism, hyperlipidemia, history of depression. PAST SURGICAL HISTORY: History of her coronary artery bypass grafting, quadruple bypass, status post elbow surgery, status post spinal stimulator placement, status post valve replacement, cataract surgery, left arm AV fistula placement recently. ALLERGIES: He is allergic to PENICILLIN, ASPIRIN and CEFTRIAXONE. FAMILY HISTORY: No significant family history of end-stage renal disease requiring hemodialysis. SOCIAL HISTORY: The patient denies any illicit drug abuse, smoking or alcohol abuse. REVIEW OF SYSTEMS: CONSTITUTIONAL: He denies any fevers and chills. Eyes: He denies any blurry vision, double vision. ENT: Denies any dysphagia, odynophagia, or ear discharge. Cardiovascular: He does report lower extremity edema and orthopnea. Respiratory: He does report shortness of breath. He denies any cough or wheezing. Gastrointestinal: He denies any nausea, vomiting. Genitourinary: He denies any dysuria or hematuria. Musculoskeletal: He reports lower extremity edema, fall with pain in the back. Skin: He denies any rashes. He does report bruises in the back. Central nervous system (BIOMEDICAL EQUIPMENT TECHNICIAN): He denies any strokes, seizures or weakness. Psychiatric: He does report a history of depression. Endocrine: There is history of secondary hyperparathyroidism. All other review of systems is negative. PHYSICAL EXAMINATION: General: The patient is awake, alert, oriented times three, sitting up in the sofa. Vital signs: Temperature is 98.4 degrees Fahrenheit, blood pressure 138/62, pulse is 90, respiratory rate of 18, saturating 93% on room air. Head and neck exam: Extraocular muscles intact. Pupils equally round and reactive to light. Mucous membranes are moist. Neck veins are distended. Cardiovascular: S1, S2 regular rate. No murmur, rub, or gallop. Respiratory: Chest is clear to auscultation bilaterally. At the upper lung zones, he has a moderate amount of crepitations at the bases. Abdomen is soft. Positive bowel sounds. Nontender. No organomegaly. Musculoskeletal: The patient has 3+ edema of the bilateral lower extremities all the way up to his knees. AV access: The patient has a left arm AV fistula with positive thrill and bruit. Central nervous system (BIOMEDICAL EQUIPMENT TECHNICIAN): No focal deficit. Power is 5/5 in all extremities. LABORATORY REVIEW: CBC showed a WBC of 12.7, hemoglobin 9.4, platelets of 145. BMP shows sodium 139, potassium is 4, chloride 98, bicarbonate 37, BUN 82, creatinine is 2.6, calcium is 7.7, albumin is 3.1. IMAGING STUDIES: No new imaging done today. The CT scan of the cervical spine, head and thoracic spine was negative for any fractures. CURRENT INPATIENT MEDICATIONS: The patient is currently on: - Tylenol - albuterol as needed - Xanax as needed for anxiety - Mylanta 10 mL as needed for dyspepsia - He was on vitamin C 500 mg daily, which I have stopped because of chronic kidney disease IV. - He is on Lipitor 20 mg at night - baclofen 10 mg p.o. twice a day as needed for muscle spasm - Coreg 6.25 mg p.o. twice a day - Zyrtec 10 mg by mouth at night - I gave him a dose of Diuril 500 mg IV times one dose - Sensipar 30 mg p.o. on Mondays - Plavix 75 mg p.o. daily - Colace 100 mg p.o. twice a day - Pepcid 20 mg p.o. daily - Uloric 80 mg q. p.o. q.h.s. - Lasix 80 mg IV q. 12 hourly - Atarax 20 mg p.o. three times a day as needed for itching - insulin sliding scale - lactulose as needed - milk of magnesia as needed - MSIR 15 mg p.o. three times a day - Theragran M 1 tablet p.o. daily - Percocet 1 tablet q. 4 hours as needed for pain - Paxil 20 mg q at night - potassium chloride 20 mEq by mouth times one dose was given - prednisone 8 mg daily ASSESSMENT: 73-year-old male with chronic kidney disease stage IV chronic diastolic congestive heart failure, hypertension, admitted this time with acute decompensated congestive heart failure and acute kidney injury. PLAN: 1. Acute kidney injury superimposed on chronic kidney disease stage IV. The patient's volume status is decompensated. His breast baseline creatinine is around 2.5. It is okay to continue diuretics at this point. Continue to monitor for improvement of renal function back to baseline. The patient already has a left forearm AV fistula, which is maturing, no urgent need of hemodialysis. 2. Acute decompensated diastolic congestive heart failure. The patient's volume status is significantly decompensated. He was not diuresing well with Lasix 80 mg IV twice a day. I have given him a dose of Diuril 500 mg IV times one dose for sequential nephro. He needs to be in negative fluid balance at least 1.5 liters daily. 3. 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 Continue current dose of Uloric 80 mg p.o. daily. 4. Secondary hyperparathyroidism. Continue current dose of Sensipar 30 mg by mouth once a week. 4. Hypertension with chronic kidney disease. Continue current dose of Coreg 6.25 mg by mouth twice a day. Optimization of fluid status would also help improve the blood pressure. Thank you for involving me in the care of this patient. I shall be happy to follow the patient along with you tomorrow morning.
[2019-04-11] MEDS ORDERED: CHLOROTHIAZIDE 500 MG VIAL (J1205) IV ONE (15:00)
[2019-04-11] MEDS: FAMOTIDINE 20 MG TAB PO SCH (15:41)
--- NOTE | 2019-04-11 19:43 | IPNPDOC ---
Text Note Date of Service The patient was seen on 04/11/19. NOTE Pt was seen and examined at bedside. Denies any acute complaints. Reports good urine output. negative 1855 past 24 hr. General Exam: Positive: Alert, Cooperative Eye Exam: Positive: PERRLA ENT Exam: Positive: Atraumatic, Mucous membr. moist/pink Neck Exam: Positive: Supple Chest Exam: Positive: Clear to auscultation, Normal air movement Heart Exam: Positive: Rate Normal, Normal S1, Normal S2 Abdomen Exam: Positive: Normal bowel sounds Extremity Exam: Positive: Normal pulses Skin Exam: Positive: Nl turgor and temperature Neuro Exam: Positive: Cranial Nerves 3-12 NL, Reflexes 2+ Psych Exam: Positive: Mental status NL, Mood NL, Oriented x 3 Vital Signs Date Time Temp Pulse Resp B/P (MAP) Pulse Ox O2 Delivery O2 Flow Rate FiO2 04/11/19 18:09 18 04/11/19 17:09 14 04/11/19 16:00 20 04/11/19 16:00 98.0 79 18 146/58 (87) 94 04/11/19 12:00 18 04/11/19 12:00 98.2 83 18 126/68 (87) 94 04/11/19 09:29 18 04/11/19 09:03 74 156/78 04/11/19 08:00 97.2 74 18 156/78 (104) 99 04/11/19 05:00 93 Room Air 04/11/19 04:00 109/52 (71) 04/11/19 04:00 93 Room Air 04/11/19 04:00 97.2 93 20 91 04/11/19 03:00 95 Room Air 04/11/19 02:00 95 Nasal Cannula 1.0 04/11/19 01:00 95 Nasal Cannula 1.0 04/11/19 00:41 18 04/11/19 00:11 18 04/10/19 23:59 96.8 88 20 145/69 (94) 97 04/10/19 23:00 92 Nasal Cannula 1.0 04/10/19 22:00 93 Nasal Cannula 1.0 04/10/19 21:24 18 04/10/19 21:24 93 124/83 04/10/19 21:00 88 Room Air 04/10/19 20:00 97.5 93 20 124/83 (97) 94 04/10/19 20:00 92 Room Air Intake & Output 04/11/19 06:00 Intake Total 770 ml Output Total 3175 ml Balance -2405 ml Laboratory Tests 04/10/19 20:41: Bedside Glucose (Misc Panel) 168H 04/11/19 05:25: White Blood Count 11.4H, Red Blood Count 3.19L, Hemoglobin 9.9L, Hematocrit 30.4L, Mean Corpuscular Volume 95.3, Mean Corpuscular Hemoglobin 31.0, Mean Corpuscular Hemoglobin Concent 32.6, Red Cell Distribution Width 14.1, Platelet Count 154, Nucleated Red Blood Cells % (auto) 0.0, Blood Urea Nitrogen 84H, Creatinine 2.63H, Sodium Level 137, Potassium Level 4.0, Chloride Level 96L, Carbon Dioxide Level 34H, Calcium Level 7.9L, Aspartate Amino Transf (AST/SGOT) 19, Alanine Aminotransferase (ALT/SGPT) 26, Alkaline Phosphatase 112, Total Bilirubin 0.5, Total Protein 6.4, Albumin 3.5, Anion Gap 7L, Glomerular Filtration Rate 25.5L, Fasting Glucose 124H, Magnesium Level 1.7L, PQ-Wsp-L-Type Natriuretic Peptide 1921H, Albumin/Globulin Ratio 1.21 04/11/19 12:04: Bedside Glucose (Misc Panel) 180H 04/11/19 17:12: Bedside Glucose (Misc Panel) 224H Current Medications Medications (Trade) Dose Ordered Sig/Frankie Route PRN Reason Start Time Stop Time Status Last Admin Dose Admin Albuterol Sulfate (Proventil, Ventolin Hfa) 2 puff QID PRN INH SHORTNESS OF BREATH 04/09/19 17:00 04/11/19 18:44 2 PUFF Alprazolam (Xanax) 0.25 mg TID PRN PO ANXIETY 04/09/19 16:00 04/11/19 11:19 0.25 MG Atorvastatin Calcium (Lipitor) 20 mg QHS PO 04/09/19 21:00 04/10/19 21:24 20 MG Carvedilol (COReg) 6.25 mg BID PO 04/09/19 21:00 04/11/19 09:03 6.25 MG Cetirizine HCl (ZyrTEC) 10 mg QHS PO 04/09/19 21:00 04/10/19 21:24 10 MG Clopidogrel Bisulfate (PLAVix) 75 mg DAILY PO 04/10/19 09:00 04/11/19 09:02 75 MG Docusate Sodium (Colace) 100 mg BID PO 04/09/19 21:00 04/11/19 09:03 100 MG Famotidine (Pepcid) 20 mg DAILY@1400 PO 04/09/19 14:00 04/11/19 15:41 20 MG Febuxostat (Uloric) 80 mg QHS PO 04/09/19 21:00 04/10/19 21:25 80 MG Furosemide (LASIX injection) 80 mg Q12H IV 04/10/19 00:00 04/11/19 12:50 80 MG Heparin Sodium (Porcine) (Heparin) 5,000 units Q12H SC 04/09/19 21:00 04/11/19 09:06 5,000 UNITS Insulin Human Lispro (HumaLOG INSULIN) SEE PROTOCOL TABLE AC SC 04/09/19 17:30 04/11/19 18:37 6 UNITS Morphine Sulfate (Msir) 15 mg TID PO 04/09/19 16:00 04/11/19 17:09 15 MG Multivitamins (Theragram-M) 1 tab DAILY PO 04/10/19 09:00 04/11/19 09:02 1 TAB Oxycodone/ Acetaminophen (Percocet 5mg/ 325mg Tablet) 1 tab Q4HP PRN PO PAIN OR FEVER 04/09/19 13:00 04/11/19 00:11 1 TAB Paroxetine HCl (PAXil) 20 mg QHS PO 04/09/19 21:00 04/10/19 21:23 20 MG Prednisone (Deltasone) 8 mg DAILY PO 04/10/19 09:00 04/11/19 09:02 8 MG Sodium Chloride (Saline Lock Flush) 2 ml SLF IV 04/11/19 14:00 04/11/19 12:51 2 ML A/P 1-SANDRA on CKD continue aggressive diuretics Strict I/O cont cardiac meds as above nephro on board , input appreciated VS,Fishbone, I+O VS, Fishbone, I+O Laboratory Tests 04/11/19 05:25 Red Blood Count 3.19 L, Mean Corpuscular Volume 95.3, Mean Corpuscular Hemoglobin 31.0, Mean Corpuscular Hemoglobin Concent 32.6, Red Cell Distribution Width 14.1, Calcium Level 7.9 L, Aspartate Amino Transf (AST/SGOT) 19, Alanine Aminotransferase (ALT/SGPT) 26, Alkaline Phosphatase 112, Total Bilirubin 0.5, Total Protein 6.4, Albumin 3.5 Vital Signs Date Time Temp Pulse Resp B/P (MAP) Pulse Ox O2 Delivery O2 Flow Rate FiO2 04/11/19 18:09 18 04/11/19 16:00 98.0 79 146/58 (87) 94 04/11/19 05:00 Room Air 04/11/19 02:00 1.0 I&O- Last 24 Hours up to 6 AM 04/11/19 06:00 Intake Total 770 ml Output Total 3175 ml Balance -2405 ml SHERMAN MCKEON MD Apr 11, 2019 19:43
[2019-04-11] MEDS: FEBUXOSTAT 40 MG TABLET (ULORIC) PO SCH (20:58)
[2019-04-11] MEDS: PARoxetine 20 MG TAB PO SCH (21:01)
[2019-04-11] MEDS: ATORVASTATIN 20 MG TAB PO SCH (21:01)
[2019-04-11] MEDS: CETIRIZINE (ZyrTEC) 10 MG TAB PO SCH (21:02)
[2019-04-12] VITALS (25 sets, daily range): BP systolic 110–146; BP diastolic 60–82; O2SAT 89–95
[2019-04-12 05:30] LABS: CALCIUM LEVEL 8.2 MG/DL (8.8-10.2); CREATININE FOR GFR 2.81 MG/DL (0.70-1.30); GLOMERULAR FILTRATION RATE 23.6 (>42); POTASSIUM SERUM 3.8 MEQ/L (3.5-5.1)
[2019-04-12] MEDS: SLF 3 ML SYR IV SCH ×3 (06:00→21:04)
[2019-04-12] MEDS: DOCUSATE SODIUM 100 MG CAP PO SCH ×2 (08:06→20:22)
[2019-04-12] MEDS: CARVedilol 6.25 MG TAB PO SCH ×2 (08:07→20:22)
[2019-04-12] MEDS: predniSONE 1 MG TAB PO SCH (08:07)
[2019-04-12] MEDS: MULTIVITAMINS/MINERALS THERAP 1 TAB PO SCH (08:07)
[2019-04-12] MEDS: CLOPIDOGREL 75 MG TAB PO SCH (08:08)
[2019-04-12] MEDS: HumaLOG INSULIN (NovoLOG) PER UNIT SC SCH ×4 (08:08→20:23)
[2019-04-12] MEDS: HEPARIN SOD (PORCINE) 5000 UNITS/ML VIAL SC SCH ×2 (08:08→20:23)
[2019-04-12] MEDS: MORPHINE 30 MG TAB **MSIR PO SCH ×3 (08:09→20:21)
[2019-04-12] MEDS ORDERED: CINACALCET 30 MG TAB (SENSIPAR) PO SCH (09:00)
--- NOTE | 2019-04-12 11:30 | IPN ---
DATE OF SERVICE: 04/11/2019 SUBJECTIVE: Patient was seen and examined at the bedside today morning. He was eating his lunch when I saw him. He reports his shortness of breath is improving and lower extremity edema is getting better. He is responding very well to the diuretics. He is making more than 2 liters of urine a day. Renal function is stable. Creatinine has been fluctuating at around 2.6. OBJECTIVE: VITAL SIGNS: Temperature is 97.2 degrees Fahrenheit, blood pressure 128/82, pulse is 72, respiratory rate of 18, saturating 92% on room air. INTAKE AND OUTPUT: Urine output recorded as 2 liters so far today since overnight. Weight in the bed scale is 112.7 kg. PHYSICAL EXAMINATION: GENERAL: Patient is awake, alert, oriented times three, sitting up in the chair, no apparent distress. HEAD AND NECK EXAM: Extraocular muscles intact. Pupils equally round and reactive to light. Mucous membranes are moist. Neck is supple. There is no JVD. CARDIOVASCULAR: S1, S2 regular rate. 2+ edema of the bilateral lower extremities. RESPIRATORY: Chest is clear to auscultation bilaterally. Bilateral equal air entry. No rales or rhonchi. The patient has a large ecchymosis on the skin behind his back. ABDOMEN: Soft, obese, positive bowel sounds. Nontender. No organomegaly. MUSCULOSKELETAL: No clubbing or cyanosis. Pulses are 2+, 2+ edema of the bilateral lower extremities. 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 Power is 5/5 in all extremities. AV ACCESS: The patient has a left forearm AV fistula with positive thrill and bruit. LABORATORY REVIEW: CBC showed a WBC of 11.4, hemoglobin 9.9, platelets of 154. BMP showed sodium 137, potassium 4, chloride 96, bicarb 34, BUN 84, creatinine 2.6, calcium 7.9, magnesium is 1.7. Pro-BNP 1921. CURRENT INPATIENT MEDICATIONS: The patient's medications were all reviewed by me. He continues to be on IV diuretic, furosemide 80 mg IV q. 12 hourly. I give him another dose of Diuril 500 mg IV times one dose today morning. ASSESSMENT: 1. Acute kidney injury superimposed on chronic kidney disease stage IV. Patient's renal function is stable despite aggressive diuretics. Continue current dose of Lasix. He already has a left forearm AV fistula which is getting ready. No urgent need of dialysis. 2. Acute decompensated diastolic congestive heart failure. Patient is diuresing well with Lasix 80 mg twice a day. He is also getting Diuril for sequential nephron blockade. 3. Hypertension with hypertensive heart disease and chronic kidney disease stage IV. Continue current dose of Coreg 6.25 mg twice a day and the current dose of diuretics. 4. 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 Continue current dose of Uloric.
[2019-04-12] MEDS ORDERED: FUROSEMIDE 100 MG/10 ML VIAL (J1940) IV SCH ×2 (12:00→21:00)
[2019-04-12] MEDS: FAMOTIDINE 20 MG TAB PO SCH (13:05)
[2019-04-12] MEDS: ALPRAZolam 0.25 MG TAB PO PRN (15:21)
--- NOTE | 2019-04-12 16:02 | IPNPDOC ---
Date Seen The patient was seen on 04/12/19. Progress Note SUBJECTIVE: Patient reported feeling better today and reported no complaints. However, appeared to still have significant LE edema. I/O -2.2L yesterday. Encouraged foot elevation. OBJECTIVE PHYSICAL EXAMINATION: VITAL SIGNS: Please see below. General: No acute distress, Alert Eyes: Normal sclera, EOMI, BUTCH HENT: Atraumatic, neck supple, moist mucous membranes Cardiovascular: Normal rate, normal rhythm. 2+ pitting edema b/l. Pulmonary: Clear to auscultation b/l, no wheezing GI: Soft, nontender, nondistended Skin: Warm and dry. large hematoma mid back. Neuro: CN grossly intact. No focal deficits. Strengths equal b/l. Psych: oriented x 3 LABORATORY DATA, IMAGING STUDIES, MICROBIOLOGY: Please see below. DVT prophylaxis ordered?: SCD and HSQ ASSESSMENT AND PLAN: 1. SANDRA on CKD IV - Being monitored by Nephrology, who is also consulted. - Monitor daily BMP. - c/w diuresis. Has a L. forearm AV fistula, no urgent need for HD at this time. 2. Volume overload - SANDRA/CKD vs. HF? - ECHO in 2017 showed preserved EF, unsure if diastolic function were noted. - 2-3+ pitting edema b/l. - Repeat ECHO. - C/w aggressive diuretics, will keep at current regimen and taper as recommended by nephro. 3. HTN - Resume home medications. 4. Chronic gout - 2/2 CKD. - c/w home medication VS, I&O, 24H, Fishbone Vital Signs/I&O Vital Signs Date Time Temp Pulse Resp B/P (MAP) Pulse Ox O2 Delivery O2 Flow Rate FiO2 04/12/19 15:21 20 04/12/19 15:00 94 Room Air 04/12/19 12:30 98.0 86 125/77 (93) 04/12/19 12:00 1.0 I&O- Last 24 Hours up to 6 AM 04/12/19 06:00 Intake Total 715 ml Output Total 3025 ml Balance -2310 ml Laboratory Data 24H LABS Laboratory Tests 2 04/11/19 17:12: Bedside Glucose (Misc Panel) 224H 04/11/19 20:19: Bedside Glucose (Misc Panel) 132H 04/12/19 04:49: Anion Gap 5L, Glomerular Filtration Rate 23.6L, Blood Urea Nitrogen 84H, Cre atinine 2.81H, Sodium Level 138, Potassium Level 3.8, Chloride Level 96L, Carbon Dioxide Level 37H, Calcium Level 8.2L 04/12/19 11:28: Bedside Glucose (Misc Panel) 132H CBC/BMP Laboratory Tests 04/12/19 04:49 Calcium Level 8.2 L Microbiology Microbiology 04/09/19 Blood Culture - Preliminary, Resulted No Growth after 72 hours. All specime... 04/09/19 Blood Culture - Preliminary, Resulted No Growth after 72 hours. All specime... ALEIDA VALENTINE MD Apr 12, 2019 16:02
[2019-04-12] MEDS: FEBUXOSTAT 40 MG TABLET (ULORIC) PO SCH (20:21)
[2019-04-12] MEDS: PARoxetine 20 MG TAB PO SCH (20:21)
[2019-04-12] MEDS: CETIRIZINE (ZyrTEC) 10 MG TAB PO SCH (20:21)
[2019-04-12] MEDS: ATORVASTATIN 20 MG TAB PO SCH (20:22)
[2019-04-13] VITALS (24 sets, daily range): BP systolic 124–137; BP diastolic 58–70; O2SAT 89–96
--- NOTE | 2019-04-13 00:21 | IPN ---
DATE: 04/12/2019 SUBJECTIVE: The patient was seen and examined at the bedside today, morning. He was sitting on the sofa. He reports his lower extremity edema is getting better. His shortness of breath is also improving. His renal function is stable. There is a slight bump in his creatinine to 2.8 today. His diuretic dose was already decreased by the primary team. OBJECTIVE: VITAL SIGNS: Temperature is 98 degrees Fahrenheit. Blood pressure 124/78, pulse is 72, respiratory rate of 18, saturating 93% on room air. INTAKE/OUTPUT: Urine output recorded as 2.9 liters yesterday, 1.1 liters so far today since overnight. Weight on the bed scale is 112.6 kg. PHYSICAL EXAMINATION: GENERAL: The patient is awake, alert, oriented times three, sitting up on the sofa in no apparent distress. HEAD AND NECK EXAM: Extraocular muscles intact. Pupils equally round and reactive to light. Mucous membranes are moist. Neck is supple. There is no jugular venous distention (JVD). CARDIOVASCULAR: S1, S2, regular rate. 2+ edema of the bilateral lower extremities. RESPIRATORY: Chest is clear to auscultation bilaterally. Bilateral equal air entry. No rales or rhonchi. Ecchymosis on the back is healing. ABDOMEN: Abdomen is soft, obese, positive bowel sounds, nontender. No organomegaly. MUSCULOSKELETAL: No clubbing or cyanosis. Pulses are 2+. 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 Power is 5/5 in all extremities. ARTERIOVENOUS (AV) ACCESS: Patient has left forearm AV fistula with a positive thrill and bruit. LAB REVIEW: CBC showed a WBC of 11.4, hemoglobin 9.9, platelets are 154. BMP showed sodium 138, potassium 3.8, chloride 96, bicarbonate 37, BUN 84, creatinine is 2.8, calcium 8.2. CURRENT INPATIENT MEDICATIONS: The patient's medications were all reviewed by me. He was given a dose of chlorothiazide yesterday. Patient's Lasix dose has been decreased to 60 mg IV every 12 hours. No other change in the medications today as compared with yesterday. ASSESSMENT AND PLAN: 1. Acute kidney injury superimposed on chronic kidney disease stage IV. Patient is requiring high dose of diuretics for lower extremity edema and fluid overload. Renal function is stable. Because of the slight bump, his diuretic dose has been decreased. No urgent need of hemodialysis at this time. 2. Acute decompensated diastolic congestive heart failure. Patient is responding well to the diuretics. I would hold off on Diuril dose today. Continue Lasix 60 mg IV twice a day. 3. Hypertension with hypertensive heart disease and chronic kidney disease stage IV. Continue current dose of diuretics and Coreg 6.25 mg by mouth twice a day. 4. Anemia in chronic kidney disease. Hemoglobin is 9.9, which is optimal. No need of Aranesp administration at this time. 5. Metabolic alkalosis. It is secondary to aggressive diuretics. Bicarbonate level has been staying stable in low 30s. Okay to continue the diuretics.
[2019-04-13] MEDS: SLF 3 ML SYR IV SCH ×3 (05:52→21:06)
[2019-04-13 06:39] LABS: HEMATOCRIT 31.4 % (42.0-52.0); MEAN CORPUSCULAR HEMOGLOBIN 30.1 pg (27.0-33.0); MEAN CORPUSCULAR HGB CONC 31.8 g/dl (32.0-36.5); MEAN CORPUSCULAR VOLUME 94.6 fl (80.0-96.0); PLATELET COUNT, AUTOMATED 168 10^3/uL (150-450); RED BLOOD COUNT 3.32 10^6/uL (4.30-6.10); WHITE BLOOD COUNT 13.5 10^3/uL (4.0-10.0)
[2019-04-13 07:13] LABS: ALBUMIN 3.5 GM/DL (3.2-5.2); BILIRUBIN,TOTAL 0.7 MG/DL (0.2-1.0); CALCIUM LEVEL 8.2 MG/DL (8.8-10.2); CREATININE FOR GFR 2.56 MG/DL (0.70-1.30); GLOMERULAR FILTRATION RATE 26.3 (>42); POTASSIUM SERUM 3.8 MEQ/L (3.5-5.1); TOTAL PROTEIN 7.3 GM/DL (6.4-8.2)
[2019-04-13] MEDS ORDERED: FUROSEMIDE 100 MG/10 ML VIAL (J1940) IV SCH (09:00)
[2019-04-13] MEDS: MORPHINE 30 MG TAB **MSIR PO SCH ×3 (09:28→20:45)
[2019-04-13] MEDS: HumaLOG INSULIN (NovoLOG) PER UNIT SC SCH ×4 (09:30→20:47)
[2019-04-13] MEDS: predniSONE 1 MG TAB PO SCH (09:36)
[2019-04-13] MEDS: MULTIVITAMINS/MINERALS THERAP 1 TAB PO SCH (09:36)
[2019-04-13] MEDS: DOCUSATE SODIUM 100 MG CAP PO SCH ×2 (09:36→20:47)
[2019-04-13] MEDS: CLOPIDOGREL 75 MG TAB PO SCH (09:36)
[2019-04-13] MEDS: HEPARIN SOD (PORCINE) 5000 UNITS/ML VIAL SC SCH ×2 (09:37→20:45)
[2019-04-13] MEDS: CARVedilol 6.25 MG TAB PO SCH ×2 (09:37→20:47)
[2019-04-13] MEDS: SPIRONOLACTONE 25 MG TAB PO SCH (13:11)
[2019-04-13] MEDS: metOLazone 2.5 MG TAB PO SCH (13:11)
[2019-04-13] MEDS: FAMOTIDINE 20 MG TAB PO SCH (14:09)
[2019-04-13] MEDS: TORSEMIDE 100 MG TAB PO SCH (16:09)
--- NOTE | 2019-04-13 16:55 | IPNPDOC ---
Date Seen The patient was seen on 04/13/19. Progress Note SUBJECTIVE: Patient reported feeling well and reported no complaints. LE edema persistent but reportedly better and closer to his baseline. Denies SOB. OBJECTIVE PHYSICAL EXAMINATION: VITAL SIGNS: Please see below. General: No acute distress, Alert Eyes: Normal sclera, EOMI, BUTCH HENT: Atraumatic, neck supple, moist mucous membranes Cardiovascular: Normal rate, normal rhythm. 2+ pitting edema b/l. Pulmonary: Clear to auscultation b/l, no wheezing GI: Soft, nontender, nondistended Skin: Warm and dry. large hematoma mid back. Neuro: CN grossly intact. No focal deficits. Strengths equal b/l. Psych: oriented x 3 LABORATORY DATA, IMAGING STUDIES, MICROBIOLOGY: Please see below. DVT prophylaxis ordered?: SCD and HSQ ASSESSMENT AND PLAN: 1. SANDRA on CKD IV - Being monitored by Nephrology. - Monitor daily BMP. - c/w diuresis. Has a L. forearm AV fistula, no urgent need for HD at this time. 2. Volume overload - SANDRA/CKD with pulmonary HTN noted on ECHO from cardiology's office. - ECHO showed preserved EF with dilated RV. Likely moderate degree of pulmonary HTN. - 2-3+ pitting edema b/l. - Will plan on continuing to taper and discharge in the next few days once he is back to his baseline. LE edema likely to be chronic and unable to fully fix. 3. HTN - Resume home medications. 4. Chronic gout - 2/2 CKD. - c/w home medication VS, I&O, 24H, Fishbone Vital Signs/I&O Vital Signs Date Time Temp Pulse Resp B/P (MAP) Pulse Ox O2 Delivery O2 Flow Rate FiO2 04/13/19 16:09 97.6 84 20 132/67 93 1.0 04/13/19 06:00 Room Air I&O- Last 24 Hours up to 6 AM 04/13/19 06:00 Intake Total 360 ml Output Total 1675 ml Balance -1315 ml Laboratory Data 24H LABS Laboratory Tests 2 04/12/19 20:10: Bedside Glucose (Misc Panel) 183H 04/13/19 06:16: Nucleated Red Blood Cells % (auto) 0.0, Anion Gap 4L, Glomerular Filtration Rate 26.3L, Blood Urea Nitrogen 79H, Creatinine 2.56H, Sodium Level 137, Potassium Level 3.8, Chloride Level 94L, Carbon Dioxide Level 39H, Calcium Level 8.2L, Aspartate Amino Transf (AST/SGOT) 18, Alanine Aminotransferase (ALT/SGPT) 28, Alkaline Phosphatase 115, Total Bilirubin 0.7, Total Protein 7.3, Albumin 3.5, Albumin/Globulin Ratio 0.92L 04/13/19 12:07: Bedside Glucose (Misc Panel) 153H CBC/BMP Laboratory Tests 04/13/19 06:16 Red Blood Count 3.32 L, Mean Corpuscular Volume 94.6, Mean Corpuscular Hemoglobin 30.1, Mean Corpuscular Hemoglobin Concent 31.8 L, Red Cell Distribution Width 14.3, Calcium Level 8.2 L, Aspartate Amino Transf (AST/SGOT) 18, Alanine Aminotransferase (ALT/SGPT) 28, Alkaline Phosphatase 115, Total Bilirubin 0.7, Total Protein 7.3, Albumin 3.5 Microbiology Microbiology 04/09/19 Blood Culture - Preliminary, Resulted No Growth after 72 hours. All specime... 04/09/19 Blood Culture - Preliminary, Resulted No Growth after 72 hours. All specime... ALEIDA VALENTINE MD Apr 13, 2019 16:55
[2019-04-13] MEDS: ATORVASTATIN 20 MG TAB PO SCH (20:45)
[2019-04-13] MEDS: CETIRIZINE (ZyrTEC) 10 MG TAB PO SCH (20:46)
[2019-04-13] MEDS: PARoxetine 20 MG TAB PO SCH (20:46)
[2019-04-13] MEDS: FEBUXOSTAT 40 MG TABLET (ULORIC) PO SCH (20:46)
[2019-04-13] MEDS: ALPRAZolam 0.25 MG TAB PO PRN (21:06)
[2019-04-14] VITALS (10 sets, daily range): BP systolic 110–130; BP diastolic 50–69; O2SAT 93–96
[2019-04-14] MEDS: PERCOCET 5MG/325MG TAB PO PRN (01:04)
--- NOTE | 2019-04-14 03:50 | IPN ---
DATE OF SERVICE: 04/13/2019 SUBJECTIVE: The patient was seen and examined at the bedside today morning. He is afebrile. He continues to have very good urine output with the current diuretics dose. He is making more than 2 liters of urine a day. His renal function is stable. Creatinine is down to 2.5 today. He denies any active complaints. OBJECTIVE: Vital signs: Temperature is 97.4 degrees Fahrenheit, blood pressure 130/59, pulse is 87, respiratory rate of 18, saturating 94% on room air. Intake and output: Urine output recorded is 2.3 liters yesterday 1.5 liters so far today since overnight. Weight in the bed scale is 111 kg. PHYSICAL EXAMINATION: GENERAL: The patient is awake, alert, oriented x3, sitting up in the bed in no apparent distress. HEAD AND NECK EXAM: Extraocular muscles intact. Pupils equally round and reactive to light. Mucous membranes are moist. Neck is supple. There is no jugular venous distention (JVD). CARDIOVASCULAR: S1, S2 regular rate, 1+ edema of the bilateral lower extremities. RESPIRATORY: Chest is clear to auscultation bilaterally. Bilateral equal air entry. No rales or rhonchi. ABDOMEN: Soft. Positive bowel sounds. Nontender. No organomegaly. MUSCULOSKELETAL: No clubbing or cyanosis. Pulses are 2+. 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 Power is 5/5 in all extremities. Arteriovenous (AV) access: The patient has a left forearm AV fistula with positive thrill and bruit. LABORATORY REVIEW: Complete blood count (CBC) showed a white blood cell (WBC) of 13.5, hemoglobin is 10, platelets of 168. Basic metabolic panel (BMP) showed sodium 137, potassium 3.8, chloride 94, bicarbonate 39, BUN 79, creatinine is 2.5. CURRENT INPATIENT MEDICATIONS: The patient's medications were all reviewed by me. - Lasix - his intravenous (IV) Lasix has been stopped. - torsemide - he has been started on torsemide 100 mg by mouth twice a day - spironolactone 25 mg by mouth daily - metolazone 2.5 mg by mouth daily. No other change in medications today as compared with yesterday. ASSESSMENT/PLAN: 1. Acute kidney injury superimposed on chronic kidney disease stage IV. The patient's IV diuretics have been changed to oral diuretics. His renal function is stable. Creatinine is down to 2.5 which is close to his baseline. 2. Acute decompensated diastolic congestive heart failure. The patient was on Lasix 60 mg IV every 12 hourly. That has been stopped and he is currently on torsemide 100 mg twice a day. He has been restarted on spironolactone 25 mg by mouth daily. I have also started him on metolazone 2.5 mg by mouth daily for sequential nephron blockade and augmentation of diuretic response. 3. Hypertension with hypertensive heart disease and chronic kidney disease. Continue current dose of Coreg and diuretic dose as mentioned above. 4. Metabolic alkalosis. It is secondary to aggressive diuresis. Diuretic dose has been changed to oral diuretics now.
[2019-04-14 06:00] LABS: HEMATOCRIT 29.5 % (42.0-52.0); HEMOGLOBIN 9.6 g/dl (13.5-17.5); MEAN CORPUSCULAR HEMOGLOBIN 30.5 pg (27.0-33.0); MEAN CORPUSCULAR HGB CONC 32.5 g/dl (32.0-36.5); MEAN CORPUSCULAR VOLUME 93.7 fl (80.0-96.0); PLATELET COUNT, AUTOMATED 160 10^3/uL (150-450); RED BLOOD COUNT 3.15 10^6/uL (4.30-6.10); WHITE BLOOD COUNT 12.5 10^3/uL (4.0-10.0)
[2019-04-14] MEDS: SLF 3 ML SYR IV SCH (06:00)
[2019-04-14 06:27] LABS: ALBUMIN 3.2 GM/DL (3.2-5.2); BILIRUBIN,TOTAL 0.8 MG/DL (0.2-1.0); CALCIUM LEVEL 8.3 MG/DL (8.8-10.2); CREATININE FOR GFR 2.79 MG/DL (0.70-1.30); GLOMERULAR FILTRATION RATE 23.8 (>42); POTASSIUM SERUM 3.8 MEQ/L (3.5-5.1); TOTAL PROTEIN 7.2 GM/DL (6.4-8.2)
[2019-04-14] MEDS: HumaLOG INSULIN (NovoLOG) PER UNIT SC SCH ×2 (08:20→12:00)
[2019-04-14] MEDS: HEPARIN SOD (PORCINE) 5000 UNITS/ML VIAL SC SCH (08:21)
[2019-04-14] MEDS: MORPHINE 30 MG TAB **MSIR PO SCH (08:22)
[2019-04-14] MEDS: CLOPIDOGREL 75 MG TAB PO SCH (08:23)
[2019-04-14] MEDS: TORSEMIDE 100 MG TAB PO SCH (08:23)
[2019-04-14] MEDS: predniSONE 1 MG TAB PO SCH (08:23)
[2019-04-14] MEDS: metOLazone 2.5 MG TAB PO SCH (08:23)
[2019-04-14] MEDS: DOCUSATE SODIUM 100 MG CAP PO SCH (08:24)
[2019-04-14] MEDS: CARVedilol 6.25 MG TAB PO SCH (08:24)
[2019-04-14] MEDS: SPIRONOLACTONE 25 MG TAB PO SCH (08:24)
[2019-04-14] MEDS: MULTIVITAMINS/MINERALS THERAP 1 TAB PO SCH (08:24)
[2019-04-14] MEDS ORDERED: METO25TA PO (11:48)
[2019-04-14] MEDS ORDERED: TORS100T PO (11:48)
--- NOTE | 2019-04-14 13:47 | DS.PDOC ---
Discharge Summary General Date of Admission Apr 09, 2019 at 12:45 Date of Discharge 04/14/19 Discharge Summary PROCEDURES PERFORMED DURING STAY: [None]. ADMITTING DIAGNOSES: 1. SANDRA on CKD 2. Fluid overload 3. HTN DISCHARGE DIAGNOSES: 1. SANDRA on CKD 2. Fluid overload 3. HTN COMPLICATIONS/CHIEF COMPLAINT: Acute Kidney Injury Volume Overload. HISTORY OF PRESENT ILLNESS: "73 years old white male with past medical history of CAD, diabetes mellitus, restrictive lung disease has been complaining of shortness of breath since last 1 month, which is probably allergic progressively getting worse, patient has been seen by his PCP and nephrology and medicine. Medications were adjusted, but without any success. Patient was referred to ER secondary to increasing shortness of breath" HOSPITAL COURSE: Patient was diuresed aggressively with improvement in symptoms. SOB resolved and LE edema noted to be close to baseline, reportedly always edematous. Patient ambulates well and denies any complaints. Nephrology have been following along with help of adjusting medications. Adjusted Torsemide dose as well as added Metolazone. Will discharge patient to f/u with PMD and Renal as outpatient. DISCHARGE MEDICATIONS: Please see below. ALLERGIES: Please see below. PHYSICAL EXAMINATION ON DISCHARGE: VITAL SIGNS: Please see below. General: No acute distress, Alert Eyes: Normal sclera, EOMI, BUTCH HENT: Atraumatic, neck supple, moist mucous membranes Cardiovascular: Normal rate, normal rhythm. 2+ pitting edema b/l. Pulmonary: Clear to auscultation b/l, no wheezing GI: Soft, nontender, nondistended Skin: Warm and dry. large hematoma mid back. Neuro: CN grossly intact. No focal deficits. Strengths equal b/l. Psych: oriented x 3 LABORATORY DATA: Please see below. IMAGING: CXR- Impression: Borderline heart size and cephalization. No definite focal infiltrate. Prior sternotomy. Dorsal column stimulator leads. Thoracic spine CT- IMPRESSION: 1. There is no acute fracture or subluxation. 2. Degenerative change as described above. Lumbar Spine CT- IMPRESSION: 1. Diffuse disc bulge at the L1-2 and L4-5 levels with minimal thecal sac compression. 2. Diffuse disc bulge and retrolisthesis at the L2-3 level with minimal thecal sac compression. 3. Mild central canal stenosis at the L3-4 level secondary to disc bulge, ligamentous and facet hypertrophy. 4. Diffuse disc bulge with associated osteophyte formation at the L5-L1 level with minimal compression of the thecal sac and right S1 nerve as it exits the thecal sac. There is compression of the L5 nerves in the neural foramina. Head CT- IMPRESSION: 1. Small vessel ischemic disease. 2. Mild volume loss. Cervical Spine CT- IMPRESSION: 1. There is no acute fracture or subluxation. 2. There is cervical spondylosis at the C2-3 through C7-T1 levels. ACTIVITY: [As tolerated]. DIET: 2G Sodium diet DISCHARGE PLAN: f/u PMD and Renal DISPOSITION: . DISCHARGE INSTRUCTIONS: f/u PMD and Renal ITEMS TO FOLLOWUP ON ON OUTPATIENT: None DISCHARGE CONDITION: [Stable]. TIME SPENT ON DISCHARGE: 32 minutes. Vital Signs/I&Os Vital Signs Date Time Temp Pulse Resp B/P (MAP) Pulse Ox O2 Delivery O2 Flow Rate FiO2 04/14/19 12:00 98.1 74 18 110/50 (70) 96 04/14/19 08:52 1.0 04/14/19 06:00 Nasal Cannula I&O- Last 24 Hours up to 6 AM 04/14/19 06:00 Intake Total 710 ml Output Total 2975 ml Balance -2265 ml Laboratory Data Labs 24H Laboratory Tests 2 04/13/19 18:36: Bedside Glucose (Misc Panel) 221H 04/13/19 20:12: Bedside Glucose (Misc Panel) 166H 04/14/19 05:23: Nucleated Red Blood Cells % (auto) 0.0, Anion Gap 6L, Glomerular Filtration Rate 23.8L, Blood Urea Nitrogen 81H, Creatinine 2.79H, Sodium Level 136, Potassium Level 3.8, Chloride Level 92L, Carbon Dioxide Level 38H, Calcium Level 8.3L, Aspartate Amino Transf (AST/SGOT) 18, Alanine Aminotransferase (ALT/SGPT) 25, Alkaline Phosphatase 108, Total Bilirubin 0.8, Total Protein 7.2, Albumin 3.2, Albumin/Globulin Ratio 0.80L 04/14/19 11:51: Bedside Glucose (Misc Panel) 185H CBC/BMP Laboratory Tests 04/14/19 05:23 Red Blood Count 3.15 L, Mean Corpuscular Volume 93.7, Mean Corpuscular Hemoglobin 30.5, Mean Corpuscular Hemoglobin Concent 32.5, Red Cell Distribution Width 14.3, Calcium Level 8.3 L, Aspartate Amino Transf (AST/SGOT) 18, Alanine Aminotransferase (ALT/SGPT) 25, Alkaline Phosphatase 108, Total Bilirubin 0.8, Total Protein 7.2, Albumin 3.2 FSBS Laboratory Tests Test 04/13/19 18:36 04/13/19 20:12 04/14/19 11:51 Range/Units Bedside Glucose (Misc Panel) 221 166 185 83-110 MG/DL Microbiology Microbiology 04/09/19 Blood Culture - Final, Complete NO GROWTH AFTER 5 DAYS 04/09/19 Blood Culture - Final, Complete NO GROWTH AFTER 5 DAYS Discharge Medications Scheduled Ascorbic Acid (Ascorbic Acid) 500 Mg Tablet, 500 MG PO DAILY, (Reported) Atorvastatin Calcium (Atorvastatin Calcium) 20 Mg Tablet, 20 MG PO QHS, (Reported) Calcitriol (Calcitriol) 0.25 Mcg Capsule, 0.25 MCG PO QHS, (Reported) Calcium Carbonate/Vitamin D3 (Calcium 600-Vit D3 800 Tablet) 1 Each Tablet, 1 TAB PO DAILY, (Reported) TAKES AT 1400 Carvedilol (Carvedilol) 6.25 Mg Tablet, 6.25 MG PO BID, (Reported) Cetirizine HCl (Cetirizine HCl) 10 Mg Tablet, 10 MG PO QHS, (Reported) Cholecalciferol (Vitamin D3) (Vitamin D3) 4,000 Unit Capsule, 4,000 UNIT PO DA RHONDA, (Reported) Cinacalcet (Sensipar) 30 Mg Tablet, 30 MG PO QWEEK, (Reported) TAKES ON FRIDAY MORNINGS Clopidogrel Bisulfate (Clopidogrel) 75 Mg Tablet, 75 MG PO DAILY, (Reported) Docusate Sodium (Docusate Sodium) 100 Mg Capsule, 100 MG PO BID, (Reported) Febuxostat (Uloric) 80 Mg Tablet, 80 MG PO QHS, (Reported) Lactobacillus Acidophilus (Probiotic) 1 Each Capsule, 1 CAP PO QHS, (Reported) Metolazone (Metolazone) 2.5 Mg Tablet, 2.5 MG PO DAILY Morphine Sulfate (Morphine Sulfate) 15 Mg Tablet, 15 MG PO TID, (Reported) Multivitamins (Thera M Plus Tablet) 1 Each Tablet, 1 TAB PO DAILY, (Reported) Naldemedine Tosylate (Symproic) 0.2 Mg Tablet, 0.2 MG PO DAILY, (Reported) Paroxetine HCl (Paroxetine HCl) 20 Mg Tablet, 20 MG PO QHS, (Reported) Prednisone (Prednisone) 1 Mg Tablet, 8 MG PO DAILY, (Reported) Ranitidine Hcl (Ranitidine HCl) 150 Mg Tablet, 1 TAB PO DAILY, (Reported) TAKES AT 1400 Spironolactone (Spironolactone) 25 Mg Tablet, 25 MG PO QPM, (Reported) TAKES AROUND 1800 Tiotropium [place] (Spiriva Respimat) 4 Gm Mist.inhal, 2 INHALATION INH DAILY, (Reported) Torsemide (Torsemide) 100 Mg Tablet, 100 MG PO BID@, Ubidecarenone (Coq-10) 100 Mg Capsule, 100 MG PO BID, (Reported) Scheduled PRN Acetaminophen/Diphenhydramine (Acetaminophen Pm Caplet) 1 Each Tablet, 2 TAB PO QHS PRN for SLEEP, (Reported) Albuterol Sulf (Albuterol Sulfate) 2.5 Mg/3 Ml Vial.neb, 2.5 MG INH Q2H PRN for SOB/WHEEZING, (Reported) Albuterol Sulfate (Proair Hfa) 8.5 Gm Hfa.aer.ad, 2 PUFF INH QID PRN for SHORTNESS OF BREATH, (Reported) Alprazolam (Alprazolam) 0.25 Mg Tablet, 0.25 MG PO TID PRN for ANXIETY, (Reported) Baclofen (Baclofen) 10 Mg Tablet, 10 MG PO BID PRN for MUSCLE SPASMS, (Reported) Benzonatate (Benzonatate) 200 Mg Capsule, 200 MG PO TID PRN for COUGH, (Reported) Hydroxyzine HCl (Hydroxyzine HCl) 25 Mg Tablet, 25 MG PO TID PRN for ITCHING, (Reported) Lactulose (Lactulose) 10 Gm/15 Ml Solution, 30 ML PO DAILY PRN for CONSTIPATION, (Reported) Allergies Coded Allergies: aspirin (Verified Allergy, Severe, LIPS SWELL, 03/29/19) ampicillin (Verified Allergy, Intermediate, HIVES, 03/17/19) Penicillins (Verified Allergy, Mild, RASH, 03/17/19) ceftriaxone (Verified Allergy, Unknown, UNKNOWN REACTION, 04/09/19) ALEIDA VALENTINE MD Apr 14, 2019 13:47
[2019-04-15] MEDS ORDERED: TORS100T PO (11:24)
[2019-04-15] MEDS ORDERED: METO25TA PO (11:33)
[2019-04-15] MEDS ORDERED: PHARMACY COMMENT (11:35)
--- NOTE | 2019-04-15 17:58 | IPN ---
DATE: 04/14/2019 SUBJECTIVE: The patient was seen and examined the bedside today morning. The patient is on oral diuretics now and reports that he is making good amount of urine. His renal function is stable. There is a slight bump in the creatinine from 2.5 to 2.7. He was started on metolazone for the first time yesterday. He is reporting that he is feeling much better and his shortness of breath is to back to baseline. OBJECTIVE: Vital signs: Temperature is 98.1 degrees Fahrenheit, blood pressure 110/50, pulse is 74, respiratory rate of 18, saturating 96% on room air. Intake and output: Urine output recorded is 1.5 liters yesterday, 2.2 liters so far today since overnight. Weight in the bed scale is 111.8 kg. PHYSICAL EXAMINATION: GENERAL: The patient is awake, alert, oriented times three, sitting up in the bed in no apparent distress. HEAD AND NECK: Extraocular muscles intact. Pupils equally round and reactive to light. Mucous membranes are moist. Neck is supple. There is no jugular venous distention (JVD). CARDIOVASCULAR: S1, S2, regular rate. Edema 1+ of the bilateral lower extremities. RESPIRATORY: Chest is clear to auscultation bilaterally. Bilateral equal air entry. No rales or rhonchi. ABDOMEN: Soft, obese. Positive bowel sounds. Nontender. No organomegaly. MUSCULOSKELETAL: No clubbing or cyanosis. Pulses are 2+. AV ACCESS: He has a left forearm AV fistula with positive thrill and bruit. LABORATORY REVIEW: CBC showed a WBC of 12.5, hemoglobin 9.6, platelets of 160. BMP showed sodium 136, potassium 3.8, chloride 98, bicarbonate 38, BUN 81, creatinine is 2.7, calcium 8.3. CURRENT INPATIENT MEDICATIONS: The patient's medications were all reviewed by me. He is currently on metolazone 2.5 mg by mouth daily, spironolactone 25 mg by mouth daily, and torsemide 100 mg by mouth twice a day. No other change in the medications today as compared with yesterday. ASSESSMENT AND PLAN: 1. Acute kidney injury superimposed on chronic kidney disease, stage IV. Patient's renal function continues to be stable. Creatinine has been fluctuating between 2.5 to 2.7. Okay to continue current dose of diuretics. He has left forearm arteriovenous (AV) fistula, which is maturing, for possible need of renal replacement therapy in next future. 2. Acute decompensated diastolic congestive heart failure. Patient is diuresing well with the oral diuretics regimen. He is being discharged home on torsemide 100 mg by mouth twice a day, metolazone to 2.5 mg by mouth daily, and spironolactone 25 mg by mouth daily. He will followup with Dr. Hope as outpatient for optimization of his diuretic regimen. 3. Hypertension with hypertensive heart disease and chronic kidney disease. Continue Coreg and diuretics. Blood pressure is very well controlled. 4. Metabolic alkalosis. It is secondary to aggressive use of diuretics. Serum bicarbonate level has been staying stable in high 30s. Okay to continue the diuretic. DISPOSITION: It is okay to discharge the patient from nephrology standpoint. He would followup with nephrology as outpatient. Plan of care was discussed with the hospitalist, Dr. Lola Camara, as well. edited: 04/16/2019 0837 tkf
== END 2019-04-14 14:02 | disposition home or self-care (01) | DRG 641 ==
LOC: M ED 09:20 → M ED INP 12:45 → M PCU 16:05
PROVIDERS: ADMIT Internal Medicine; ATTEND Student in an Organized Health Care Education/Training Program
DX: E87.70 Fluid overload, unspecified (principal); N17.9 Acute kidney failure, unspecified; N25.81 Secondary hyperparathyroidism of renal origin; N18.4 Chronic kidney disease, stage 4 (severe); E87.3 Alkalosis; I25.10 Atherosclerotic heart disease of native coronary artery without angina pectoris; E11.22 Type 2 diabetes mellitus with diabetic chronic kidney disease; J98.4 Other disorders of lung; I27.20 Pulmonary hypertension, unspecified; I12.9 Hypertensive chronic kidney disease with stage 1 through stage 4 chronic kidney disease, or unspecified chronic kidney disease; D63.1 Anemia in chronic kidney disease; M10.30 Gout due to renal impairment, unspecified site; Z88.1 Allergy status to other antibiotic agents; Z88.0 Allergy status to penicillin; Z88.6 Allergy status to analgesic agent; Z95.1 Presence of aortocoronary bypass graft; Z79.52 Long term (current) use of systemic steroids; Z96.659 Presence of unspecified artificial knee joint; Z98.49 Cataract extraction status, unspecified eye; Z79.899 Other long term (current) drug therapy

== ENCOUNTER 2019-04-15 09:23 | Inpatient (IN) | payer MEDICARE, OTHER ==
[2019-04-15] VITALS (7 sets, daily range): BP systolic 101–134; BP diastolic 50–68
[~2019-04-15] VITALS: Ht 167.6 cm; Wt 108.6 kg
[~2019-04-15 09:23] MED LIST changes: +ACET25TA12 PO; +BACL1TAB8 PO; -BACLOFEN 10 MG TAB PO PRN; +CALC1TAB26 PO; +CETI10TA8 PO; +COQ-100C5 PO; +DOCU100C17 PO; +HM V4000 PO; +LACT10SO29 PO; +METO25TA PO; +RANI15TA PO; +[UNRECOGNIZED DRUG - CODE] PO
--- NOTE | 2019-04-15 10:33 | ECGEPIP ---
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
[2019-04-15 10:38] LABS: BASO % 0.3 % (0.0-1.0); EOS # 0.3 10^3/uL (0.0-0.50); EOS % 2.1 % (0.0-3.0); HEMATOCRIT 29.1 % (42.0-52.0); HEMOGLOBIN 9.4 g/dl (13.5-17.5); LYMPH # 2.2 10^3/uL (1.5-4.5); LYMPH % 16.2 % (24.0-44.0); MEAN CORPUSCULAR HEMOGLOBIN 31.1 pg (27.0-33.0); MEAN CORPUSCULAR HGB CONC 32.3 g/dl (32.0-36.5); MEAN CORPUSCULAR VOLUME 96.4 fl (80.0-96.0); MONO # 1.1 10^3/uL (0.0-0.8); MONO % 8.4 % (0.0-5.0); NEUTROPHILS # 9.5 10^3/uL (1.8-7.7); NEUTROPHILS % 70.6 % (36.0-66.0); PLATELET COUNT, AUTOMATED 153 10^3/uL (150-450); RED BLOOD COUNT 3.02 10^6/uL (4.30-6.10); WHITE BLOOD COUNT 13.4 10^3/uL (4.0-10.0)
[2019-04-15 10:42] LABS: ABG HCO3 35.8 MEQ/L (22.0-26.0); ABG O2 SATURATION 97.3 % (95.0-99.0); ABG PARTIAL PRESSURE O2 107.1 mmHg (75.0-100.0); ABG STANDARD HCO3 32.7 MEQ/L (22.0-26.0); ABG TOTAL CO2 37.7 MEQ/L (23.0-31.0); ABG pH (ARTERIAL) 7.381 UNITS (7.350-7.450)
[2019-04-15 10:47] LABS: ABG PARTIAL PRESSURE CO2 61.7 mmHg (35.0-45.0)
--- NOTE | 2019-04-15 10:59 | REP ---
Portable chest, 10:25 a.m., single AP view with the patient sitting: Comparisons are the PA and lateral chest of 09/25/2018 and portable chest of 04/09/2019. Cardiac size appears enlarged. This is unchanged. There are sternotomy wires and aortic valve replacement, unchanged. There is a spinal stimulator, unchanged. There is an incomplete inspiratory effort. The visualized lung gross are clear. Impression: Incomplete inspiratory effort. Cardiomegaly, sternotomy wires and cardiac valve replacement. Spinal stimulator. Electronically Signed by Toni Ramirez MD 04/15/2019 10:50 A
[2019-04-15 11:05] LABS: CALCIUM LEVEL 8.4 MG/DL (8.8-10.2); CK-MB VALUE MASS 1.7 NG/ML (<3.6); CREATININE FOR GFR 3.24 MG/DL (0.70-1.30); MB/CK RELATIVE INDEX 2.5 (< OR =4); POTASSIUM SERUM 3.8 MEQ/L (3.5-5.1); TROPONIN I 0.02 NG/ML (< 0.10)
[2019-04-15] MEDS ORDERED: TORS100T PO (11:24)
[2019-04-15] MEDS ORDERED: METO25TA PO (11:33)
[2019-04-15] MEDS ORDERED: PHARMACY COMMENT (11:35)
[2019-04-15] MEDS ORDERED: IPRATROPIUM 0.5MG/ALBUTEROL 2.5MG INH SOL UD 3ML (DUONEB)(J7620) NEB PRN (13:00)
[2019-04-15] MEDS: HEPARIN SOD (PORCINE) 5000 UNITS/ML VIAL SC SCH ×2 (13:52→22:08)
--- NOTE | 2019-04-15 14:29 | HPEPDOC ---
[facility] Medical History & Physical Date of Admission Apr 15, 2019 Date of Service: Apr 15, 2019 History and Physical CHIEF COMPLAINT: Lethargy HISTORY OF PRESENT ILLNESS: Patient's a 73-year-old male with past medical history of CAD status post CABG, DM, Bladder cancer s/p surgical resection, restrictive lung disease, ABELARDO not on CPAP, CKD sent in from PMD's office for lethargy. Patient was just discharged from the hospital yesterday for fluid overload and has been doing well on PO diuretic for a few days. Unsure why he was so lethargic. at bedside reported that he wasn't able to sleep last night and appeared to be anxious and subsequently took some Xanax, became even more sleepy at patient's PMD office and was sent here. Was also found to be hypoxic at home to 80s. Patient denies any chest pain, SOB or any other complaints. PAST MEDICAL HISTORY: Refer to [facility] PAST SURGICAL HISTORY: CABG Knee replacement Elbow surgery Spinal stimulator placement Bladder surgeries Cataract surgery Fistula repair SOCIAL HISTORY: Denies tobacco, alcohol or illicit drug use. FAMILY HISTORY: Mother- DM ALLERGIES: Please see below. REVIEW OF SYSTEMS: 10 point review of system negative except as stated in HPI HOME MEDICATIONS: Please see below. PHYSICAL EXAMINATION: General: Deep sleep, difficult to arouse but does wake up very briefly and answer short questions. Eyes: Normal sclera, EOMI, BUTCH HENT: Atraumatic, neck supple, moist mucous membranes Cardiovascular: Normal rate Pulmonary: Decrease breath sounds b/l, wheezing noted in upper airway/oropharynx. GI: Soft, nontender Skin: Warm and dry Neuro: Lethargy, unable to assess. LABORATORY DATA: See below. IMAGING: CXR- Impression: Incomplete inspiratory effort. Cardiomegaly, sternotomy wires and cardiac valve replacement. Spinal stimulator. MICROBIOLOGY: Please see below. ASSESSMENT AND PLAN: 1. Lethargy - Likely 2/2 impaired kidney function in setting of Xanax and pain medication use? Could take longer to clear. - ABG noted, no significant CO2 retention. - Will closely monitor in ICU at this time. - Consider Bipap if respiratory status worsens. Currently saturating well on NC. 2. Hypoxia - Poor respiratory effort. Not tachycardic. - Otherwise HD stable. - C/w O2 support with NC. 3. Restrictive Lung disease 4. SANDRA on CKD - Nephrology consulted. - c/w diuresis, Lasix at this time. Transition to PO once patient is more alert. - Fistula in place, will not likely need initiation of HD at this time however. 5. ABELARDO - May contribute to mental/respiratory status. - Appeared to have mechanical/physical difficulty when lying flat given anatomical limitations/neck size. - Does not have CPAP at this time as he was not compliance due to difficulty tolerating at home. - Need new sleep study and follow up with Pulm. 6. HTN - Resume home med when patient more alert. 7. Gout DVT ppx: HSQ and SCD Code status: Full code Vital Signs Vital Signs Date Time Temp Pulse Resp B/P (MAP) Pulse Ox O2 Delivery O2 Flow Rate FiO2 04/15/19 13:30 84 156/73 (100) 04/15/19 13:15 96 Nasal Cannula 2.0 04/15/19 09:40 97.6 20 Laboratory Data Labs 24H Laboratory Tests 2 04/15/19 10:10: Immature Granulocyte % (Auto) 2.4, White Blood Count 13.4H, Red Blood Count 3.02L, Hemoglobin 9.4L, Hematocrit 29.1L, Mean Corpuscular Volume 96.4H, Mean Corpuscular Hemoglobin 31.1, Mean Corpuscular Hemoglobin Concent 32.3, Red Cell Distribution Width 14.5, Platelet Count 153, Neutrophils (%) (Auto) 70.6H, Lymphocytes (%) (Auto) 16.2L, Monocytes (%) (Auto) 8.4H, Eosinophils (%) (Auto) 2.1, Basophils (%) (Auto) 0.3, Neutrophils # (Auto) 9.5H, Lymphocytes # (Auto) 2.2, Monocytes # (Auto) 1.1H, Eosinophils # (Auto) 0.3, Basophils # (Auto) 0.0, Nucleated Red Blood Cells % (auto) 0.1H, Anion Gap 6L, Glomerular Filtration Rate 20.0L, Lactic Acid Level 0.9, Blood Urea Nitrogen 102H, Creatinine 3.24H, Sodium Level 134L, Potassium Level 3.8, Chloride Level 91L, Carbon Dioxide Level 37H, Calcium Level 8.4L, Total Creatine Kinase 68, Creatine Kinase MB 1.7, Creatine Kinase MB Relative Index 2.50, Troponin I 0.02 04/15/19 10:28: Blood Gas Bicarbonate Standard 32.7H, Arterial Blood pH 7.381, Arterial Blood Partial Pressure CO2 61.7*H, Arterial Blood Partial Pressure O2 107.1H, Arterial Blood Total CO2 37.7H, Arterial Blood HCO3 35.8H, Arterial Blood Base Excess 9.0H, Arterial Blood Oxygen Saturation 97.3 CBC/BMP Laboratory Tests 04/15/19 10:10 Red Blood Count 3.02 L, Mean Corpuscular Volume 96.4 H, Mean Corpuscular Hemoglobin 31.1, Mean Corpuscular Hemoglobin Concent 32.3, Red Cell Distribution Width 14.5, Neutrophils (%) (Auto) 70.6 H, Lymphocytes (%) (Auto) 16.2 L, Monocytes (%) (Auto) 8.4 H, Eosinophils (%) (Auto) 2.1, Basophils (%) (Auto) 0.3, Neutrophils # (Auto) 9.5 H, Lymphocytes # (Auto) 2.2, Monocytes # (Auto) 1.1 H, Eosinophils # (Auto) 0.3, Basophils # (Auto) 0.0, Calcium Level 8.4 L, Total Creatine Kinase 68 Home Medications Scheduled Ascorbic Acid (Ascorbic Acid) 500 Mg Tablet, 500 MG PO DAILY Atorvastatin Calcium (Atorvastatin Calcium) 20 Mg Tablet, 20 MG PO QHS Calcitriol (Calcitriol) 0.25 Mcg Capsule, 0.25 MCG PO QHS Calcium Carbonate/Vitamin D3 (Calcium 600-Vit D3 800 Tablet) 1 Each Tablet, 1 TAB PO DAILY TAKES AT 1400 Carvedilol (Carvedilol) 6.25 Mg Tablet, 6.25 MG PO BID Cetirizine HCl (Cetirizine HCl) 10 Mg Tablet, 10 MG PO QHS Cholecalciferol (Vitamin D3) (Vitamin D3) 4,000 Unit Capsule, 4,000 UNIT PO DAILY Cinacalcet (Sensipar) 30 Mg Tablet, 30 MG PO QWEEK TAKES ON FRIDAY MORNINGS Clopidogrel Bisulfate (Clopidogrel) 75 Mg Tablet, 75 MG PO DAILY Docusate Sodium (Docusate Sodium) 100 Mg Capsule, 100 MG PO BID Febuxostat (Uloric) 80 Mg Tablet, 80 MG PO QHS Lactobacillus Acidophilus (Probiotic) 1 Each Capsule, 1 CAP PO QHS Metolazone (Metolazone) 2.5 Mg Tablet, 2.5 MG PO DAILY Morphine Sulfate (Morphine Sulfate) 15 Mg Tablet, 15 MG PO TID Multivitamins (Thera M Plus Tablet) 1 Each Tablet, 1 TAB PO DAILY Naldemedine Tosylate (Symproic) 0.2 Mg Tablet, 0.2 MG PO DAILY Paroxetine HCl (Paroxetine HCl) 20 Mg Tablet, 20 MG PO QHS Prednisone (Prednisone) 1 Mg Tablet, 8 MG PO DAILY Ranitidine Hcl (Ranitidine HCl) 150 Mg Tablet, 1 TAB PO DAILY TAKES AT 1400 Spironolactone (Spironolactone) 25 Mg Tablet, 25 MG PO QPM TAKES AROUND 1800 Tiotropium [place] (Spiriva Respimat) 4 Gm Mist.inhal, 2 INHALATION INH DAILY Torsemide (Torsemide) 100 Mg Tablet, 100 MG PO BID IN THE MORNING AND AT 1400 Ubidecarenone (Coq-10) 100 Mg Capsule, 100 MG PO BID Scheduled PRN Acetaminophen/Diphenhydramine (Acetaminophen Pm Caplet) 1 Each Tablet, 2 TAB PO QHS PRN for SLEEP Albuterol Sulf (Albuterol Sulfate) 2.5 Mg/3 Ml Vial.neb, 2.5 MG INH Q2H PRN for SOB/WHEEZING Albuterol Sulfate (Proair Hfa) 8.5 Gm Hfa.aer.ad, 2 PUFF INH QID PRN for SHORTNESS OF BREATH Alprazolam (Alprazolam) 0.25 Mg Tablet, 0.25 MG PO TID PRN for ANXIETY Baclofen (Baclofen) 10 Mg Tablet, 10 MG PO BID PRN for MUSCLE SPASMS Benzonatate (Benzonatate) 200 Mg Capsule, 200 MG PO TID PRN for COUGH Hydroxyzine HCl (Hydroxyzine HCl) 25 Mg Tablet, 25 MG PO TID PRN for ITCHING Miscellaneous Medications [Pharmacy Comment ] PATIENT STATES HE TOOK MORNING MEDS LAST NIGHT ALONG WITH NIGHT MEDS DUE TO MISSING MORNING DOSES YESTERDAY 04/14/19. Allergies Coded Allergies: aspirin (Verified Allergy, Severe, LIPS SWELL, 03/29/19) Penicillins (Verified Allergy, Intermediate, RASH, 04/15/19) ampicillin (Verified Allergy, Intermediate, HIVES, 03/17/19) ceftriaxone (Verified Allergy, Unknown, UNKNOWN REACTION, 04/09/19) A-FIB/CHADSVASC A-FIB History Current/History of A-Fib/PAF?: No ALEIDA VALENTINE MD Apr 15, 2019 14:29
[2019-04-15] MEDS: IPRATROPIUM 0.5MG/ALBUTEROL 2.5MG INH SOL UD 3ML (DUONEB)(J7620) NEB SCH ×2 (15:17→20:04)
[2019-04-15] MEDS ORDERED: FUROSEMIDE 100 MG/10 ML VIAL (J1940) IV SCH (17:00)
[2019-04-16] VITALS (11 sets, daily range): BP systolic 98–176; BP diastolic 56–83
[2019-04-16] MEDS: IPRATROPIUM 0.5MG/ALBUTEROL 2.5MG INH SOL UD 3ML (DUONEB)(J7620) NEB SCH ×4 (01:21→20:35)
[2019-04-16 04:42] LABS: HEMATOCRIT 30.1 % (42.0-52.0); HEMOGLOBIN 9.6 g/dl (13.5-17.5); MEAN CORPUSCULAR HEMOGLOBIN 30.6 pg (27.0-33.0); MEAN CORPUSCULAR HGB CONC 31.9 g/dl (32.0-36.5); MEAN CORPUSCULAR VOLUME 95.9 fl (80.0-96.0); PLATELET COUNT, AUTOMATED 144 10^3/uL (150-450); RED BLOOD COUNT 3.14 10^6/uL (4.30-6.10); WHITE BLOOD COUNT 12.4 10^3/uL (4.0-10.0)
[2019-04-16 05:01] LABS: CALCIUM LEVEL 8.6 MG/DL (8.8-10.2); CREATININE FOR GFR 2.77 MG/DL (0.70-1.30); POTASSIUM SERUM 3.7 MEQ/L (3.5-5.1)
[2019-04-16] MEDS: HEPARIN SOD (PORCINE) 5000 UNITS/ML VIAL SC SCH ×3 (06:33→21:24)
[2019-04-16] MEDS ORDERED: hydrOXYzine 25 MG TAB PO PRN (08:00)
[2019-04-16] MEDS ORDERED: BACLOFEN 10 MG TAB PO PRN (08:00)
[2019-04-16] MEDS ORDERED: BENZONATATE 100 MG CAP PO PRN (08:00)
[2019-04-16] MEDS ORDERED: predniSONE 5 MG TAB PO SCH (09:00)
[2019-04-16] MEDS ORDERED: ASCORBIC ACID 500 MG TAB PO SCH (09:00)
[2019-04-16] MEDS: CARVedilol 6.25 MG TAB PO SCH ×2 (09:00→20:44)
[2019-04-16] MEDS ORDERED: predniSONE 1 MG TAB PO SCH (09:00)
[2019-04-16] MEDS: CLOPIDOGREL 75 MG TAB PO SCH (09:31)
[2019-04-16] MEDS: MORPHINE 30 MG TAB **MSIR PO SCH ×3 (09:31→20:42)
[2019-04-16] MEDS: metOLazone 2.5 MG TAB PO SCH (09:31)
[2019-04-16] MEDS: MULTIVITAMINS/MINERALS THERAP 1 TAB PO SCH (09:32)
[2019-04-16] MEDS: TORSEMIDE 100 MG TAB PO SCH ×2 (09:32→16:11)
[2019-04-16] MEDS ORDERED: predniSONE 20 MG TAB PO ONE (10:30)
[2019-04-16 10:58] LABS: URIC ACID 7.5 MG/DL (3.5-7.2)
--- NOTE | 2019-04-16 12:20 | CR ---
DATE OF CONSULTATION: 04/16/2019 REQUESTING PHYSICIAN: Dr. Lola Camara REASON FOR CONSULTATION: Management of acute kidney injury superimposed on chronic kidney disease stage IV and optimization of fluid status. CHIEF COMPLAINT: The patient presented to the hospital yesterday with lethargic and altered mental status. HISTORY OF PRESENT ILLNESS: Maik Mckeon is a 73-year-old male with past medical history of chronic kidney disease stage IV, obstructive sleep apnea, noncompliant with CPAP, coronary artery disease status post coronary artery bypass graft (CABG). He recently had left upper arm arteriovenous (AV) fistula more than a week ago. The patient was recently admitted to the hospital with decompensated congestive heart failure. He was diuresed initially with IV diuretics and later on with oral diuretics. He was discharged from the hospital 2 days ago. However, the patient reports that the night when he went home, he got up and he was short of breath and he was walking around at night because he was unable to breathe well. His thought that he was having an anxiety attack. He was given a dose of Xanax. Later on the patient was taken to the primary care's office. There he was found to be very lethargic and weak. They called the ambulance and sent the patient over here. The patient was found to be hypoxemic on arrival in the emergency room. He was very lethargic. He was admitted under the hospitalist service. Nephrology service was called for further help in the management of this patient. His creatinine on arrival was 3.2. His creatinine on discharge was 2.7. I saw and evaluated the patient at the bedside today morning in the ICU. He was sitting in the sofa. He was much more awake and alert. He was able to communicate with me. His also reports that the patient looks a lot better. He was given IV diuretics yesterday 60 mg IV. His shortness of breath is better. The patient is complaining of right-sided foot pain and possible acute gout attack. PAST MEDICAL HISTORY: Past medical history of chronic kidney disease stage IV. Coronary artery disease status post CABG. Diabetes mellitus type 2. History of bladder cancer. Restrictive lung disease. Obstructive sleep apnea, noncompliant with CPAP because of claustrophobia. Recent hospitalization for congestive heart failure. PAST SURGICAL HISTORY: Status post coronary artery bypass grafting. Status post knee replacement. History of elbow surgery. Status post spinal stimulator placement. Bladder surgeries in the past. Status post left arm AV fistula placement. ALLERGIES: The patient is allergic to PENICILLIN, ASPIRIN and CEFTRIAXONE. FAMILY HISTORY: No significant family history of end-stage renal disease requiring hemodialysis. SOCIAL HISTORY: The patient lives at home. He denies any smoking, drug abuse or alcohol abuse. REVIEW OF SYSTEMS: CONSTITUTIONAL: Patient denies any fevers or chills at this point. EYES: He denies any blurry vision, double vision. ENT: Denies any dysphagia, odynophagia, ear discharge. CARDIOVASCULAR: He does report mild lower extremity edema and baseline shortness of breath. RESPIRATORY: He denies any cough or wheezing at this point but he had wheezing yesterday. GASTROINTESTINAL (GI): Denies any nausea, vomiting. GENITOURINARY: Denies any dysuria or hematuria. MUSCULOSKELETAL: He does report pain in the right foot and possible gout attack. CENTRAL NERVOUS SYSTEM (NS): He denies any strokes or seizures. PSYCH: He denies any depression, anxiety. SKIN: He denies any rashes or ulcers. All other review of systems is negative. PHYSICAL EXAMINATION: GENERAL: The patient is awake, alert, oriented times three, sitting up in the so far no apparent distress. VITAL SIGNS: Temperature is 99 degrees Fahrenheit, blood pressure 98/56, pulse is 95, resp rate of 80, saturating 95% on 2 liters nasal cannula. Intake and output: Urine output recorded is 2.2 liters yesterday, 925 mL so far today since overnight. Weight in the bed scale is 107.7 kg. HEAD AND NECK EXAM: Extraocular muscles intact. Pupils equally round and reactive to light. Mucous membranes are moist. Neck is supple. There is mildly elevated jugular venous distention (JVD). CARDIOVASCULAR: S1, S2 regular rate. 1+ edema of the bilateral lower extremities. RESPIRATORY: Mildly decreased breath sounds at the bases, otherwise no active rales or rhonchi. ABDOMEN: Soft, obese, positive bowel sounds. Nontender. No organomegaly. MUSCULOSKELETAL: No clubbing or cyanosis. Pulses are 2+. 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 LAB REVIEWS: CBC showed a WBC 12.4, hemoglobin 9.6, platelets are 144. ABG done yesterday showed pH of 73, pCO2 of 61, pO2 of 107, bicarb is 35, oxygen saturation is 97%. BMP done today showed sodium 136, potassium 3.7, chloride 91, bicarb 38, BUN 97, creatinine is 2.7, uric acid is 7.5, calcium is 8.6. IMAGING STUDIES: A chest x-ray was done yesterday which showed incomplete respiratory effort cardiomegaly, sternotomy wires and cardiac valve. Visualized lung gross were clear. CURRENT INPATIENT MEDICATIONS: Patient's current medications include DuoNebs as needed for wheezing, vitamin C 500 mg by mouth daily, which I am stopping right now because of renal failure. Lipitor 20 mg nightly, baclofen 10 mg by mouth twice a day as needed for spasms, Tessalon Perles, Coreg 6.25 mg by mouth twice a day, Zyrtec 10 mg by mouth nightly, Plavix 75 mg by mouth daily, urologic 80 mg by mouth nightly. He was on Lasix IV, which has been stopped now, heparin subcu, Atarax 25 mg by mouth three times a day as needed itching. He is on metolazone 2.5 mg by mouth daily, MSIR 15 mg by mouth three times a day, multivitamin one tablet by mouth daily. He is on prednisone 8 mg by mouth daily, which has been stopped because he has been started on prednisone 40 mg by mouth because of gout attack. He is on spironolactone 25 mg by mouth by mouth daily and torsemide 100 mg by mouth twice a day. ASSESSMENT: 73-year-old male with acute kidney injury superimposed on chronic kidney disease stage IV, hypoxemia and hypercapnic respiratory failure, hypertension and gout. PLAN: 1. Acute kidney injury superimposed on chronic kidney disease stage IV likely cardiorenal in nature. The patient's creatinine was are 3.2 yesterday. He was given Lasix yesterday. His creatinine has come down to 2.7, which is his baseline creatinine. The patient's BUN is very high, it is 97 today. His uric acid is also high. He has left upper arm AV fistula which is maturing. We are waiting the maturation of this fistula before starting dialysis. I discussed the possibility of possibly placing a catheter and starting the dialysis in this patient because of recurrent congestive heart failure (CHF) fluid overload and high BUN levels. The patient and his both are tending more towards waiting for the fistula maturation in about 2 months before his dialysis is started. When I told them that if he have more issues that I am inclined more towards getting a tunneled dialysis catheter and starting him on dialysis. 2. Acute gout attack in the foot: The patient has been started on prednisone 40 mg p.o. daily. I am avoiding the use of colchicine because of renal failure. 3. Acute hypercapnic respiratory failure: The patient was very lethargic yesterday. His pCO2 level was 61. Most likely it was secondary to use of benzodiazepine in the setting of chronic kidney disease IV. Patient is much more awake today and his oxygenation level is better. 4. Obstructive sleep apnea: The patient is claustrophobic he was prescribed CPAP in the past but she was noncompliant with that. 5. Hypertension with chronic kidney disease and hypertensive heart disease: Continue current dose of Coreg 6.25 mg by mouth twice a day. Continue current diuretics dose. 6. Decompensated congestive heart failure: I do not have the latest echo available in the system. I have ordered a repeat echocardiogram. Continue current dose of torsemide 100 mg by mouth twice a day, spironolactone 25 mg by mouth daily and metolazone 2.5 mg by mouth daily. 7. Anemia and chronic kidney disease: Hemoglobin is 9.6, which is optimal. No need of SELVIN administration at this point. Thank you for involving me in the care of this patient. I shall be happy to follow the patient along with you tomorrow morning.
[2019-04-16] MEDS ORDERED: SODIUM CHLORIDE NASAL 0.65% SPRAY BTL (OCEAN) PRN (13:30)
--- NOTE | 2019-04-16 14:28 | IPNPDOC ---
Date Seen The patient was seen on 04/16/19. Progress Note SUBJECTIVE: Patient's mental status appeared to have returned to baseline this morning. Does not have any complaints to me but later reported return of chronic pain to nurse. He feels well otherwise and appeared less edematous than in previous admission. OBJECTIVE PHYSICAL EXAMINATION: VITAL SIGNS: Please see below. General: No acute distress, Alert Eyes: Normal sclera, EOMI, BUTCH HENT: Atraumatic, neck supple, moist mucous membranes Cardiovascular: Normal rate, normal rhythm. 1+ pitting edema b/l. Pulmonary: Clear to auscultation b/l GI: Soft, nontender, nondistended Skin: Warm and dry Neuro: CN grossly intact. No focal deficits. Strengths equal b/l. Psych: oriented x 3 LABORATORY DATA, IMAGING STUDIES, MICROBIOLOGY: Please see below. ASSESSMENT AND PLAN: 1. Lethargy - Resolved. - Likely Uremia in setting of pain medications/xanax in setting of CKD. - BUN elevated. - ABG noted, no significant CO2 retention. - Encourage to spread out pain medication regimen if possible for now. Xanax had not been restarted. - Nephro had discussed starting HD but patient and inclined to wait until fistula matures and start at later date. 2. Hypoxia - resolved. - decreased resp effort on arrival due to lethargy. 3. Restrictive Lung disease 4. SANDRA on CKD - Nephrology following. - Home dose diuresis resumed. - Fistula in place. Pt and prefers not to have catheter placed for HD at this time but may need to in the near future, patient's BUN has been elevated 102 on presentation. 5. ABELARDO - May contribute to mental/respiratory status. - Appeared to have mechanical/physical difficulty when lying flat given anatomical limitations/neck size. - Does not have CPAP at this time as he was not compliance due to difficulty tolerating at home. - Need new sleep study and follow up with Pulm. 6. HTN - Resume home med when patient more alert. 7. Gout Monitor tonight. Can be transferred out of ICU for possible d/c tomorrow. DVT ppx: HSQ and SCD Code status: Full code VS, I&O, 24H, Fishbone Vital Signs/I&O Vital Signs Date Time Temp Pulse Resp B/P (MAP) Pulse Ox O2 Delivery O2 Flow Rate FiO2 04/16/19 12:35 99.5 95 18 139/64 (89) 95 04/16/19 07:36 2.0 04/15/19 14:45 Nasal Cannula I&O- Last 24 Hours up to 6 AM 04/16/19 06:00 Intake Total 400 ml Output Total 3025 ml Balance -2625 ml Laboratory Data 24H LABS Laboratory Tests 2 04/15/19 17:50: Ammonia 38H 04/16/19 04:11: Nucleated Red Blood Cells % (auto) 0.0, Anion Gap 7L, Glomerular Filtration Rate 24.0L, Uric Acid 7.5H, Blood Urea Nitrogen 97H, Creatinine 2.77H, Sodium Level 136, Potassium Level 3.7, Chloride Level 91L, Carbon Dioxide Level 38H, Calcium Level 8.6L CBC/BMP Laboratory Tests 04/16/19 04:11 Red Blood Count 3.14 L, Mean Corpuscular Volume 95.9, Mean Corpuscular He moglobin 30.6, Mean Corpuscular Hemoglobin Concent 31.9 L, Red Cell Distribution Width 14.5, Calcium Level 8.6 L ALEIDA VALENTINE MD Apr 16, 2019 14:28
[2019-04-16] MEDS ORDERED: SPIRONOLACTONE 25 MG TAB PO SCH (17:00)
[2019-04-16] MEDS ORDERED: PARoxetine 20 MG TAB PO SCH (21:00)
[2019-04-16] MEDS ORDERED: FEBUXOSTAT 40 MG TABLET (ULORIC) PO SCH (21:00)
[2019-04-16] MEDS ORDERED: CETIRIZINE (ZyrTEC) 10 MG TAB PO SCH (21:00)
[2019-04-16] MEDS ORDERED: ATORVASTATIN 20 MG TAB PO SCH (21:00)
[2019-04-17 01:21] LABS: MAGNESIUM LEVEL 2.1 MG/DL (1.8-2.4)
[2019-04-17] MEDS: IPRATROPIUM 0.5MG/ALBUTEROL 2.5MG INH SOL UD 3ML (DUONEB)(J7620) NEB SCH ×3 (01:37→13:49)
[2019-04-17] MEDS ORDERED: ACETAMINOPHEN 500 MG TAB PO PRN (03:00)
[2019-04-17] MEDS: HEPARIN SOD (PORCINE) 5000 UNITS/ML VIAL SC SCH ×2 (05:44→14:08)
[2019-04-17 06:00] VITALS: BP 125/71
[2019-04-17 06:19] LABS: HEMATOCRIT 29.8 % (42.0-52.0); HEMOGLOBIN 9.7 g/dl (13.5-17.5); MEAN CORPUSCULAR HEMOGLOBIN 30.5 pg (27.0-33.0); MEAN CORPUSCULAR HGB CONC 32.6 g/dl (32.0-36.5); MEAN CORPUSCULAR VOLUME 93.7 fl (80.0-96.0); PLATELET COUNT, AUTOMATED 160 10^3/uL (150-450); RED BLOOD COUNT 3.18 10^6/uL (4.30-6.10); WHITE BLOOD COUNT 12.7 10^3/uL (4.0-10.0)
[2019-04-17 06:36] LABS: CALCIUM LEVEL 8.5 MG/DL (8.8-10.2); CREATININE FOR GFR 3.03 MG/DL (0.70-1.30); GLOMERULAR FILTRATION RATE 21.6 (>42); POTASSIUM SERUM 3.8 MEQ/L (3.5-5.1)
[2019-04-17] MEDS ORDERED: predniSONE 20 MG TAB PO SCH (08:00)
[2019-04-17] MEDS: MORPHINE 30 MG TAB **MSIR PO SCH (08:34)
[2019-04-17 08:37] VITALS: BP 107/56
[2019-04-17] MEDS: CLOPIDOGREL 75 MG TAB PO SCH (08:37)
[2019-04-17] MEDS: metOLazone 2.5 MG TAB PO SCH (08:37)
[2019-04-17] MEDS: MULTIVITAMINS/MINERALS THERAP 1 TAB PO SCH (08:37)
[2019-04-17] MEDS: CARVedilol 6.25 MG TAB PO SCH (08:37)
[2019-04-17] MEDS: TORSEMIDE 100 MG TAB PO SCH (08:37)
--- NOTE | 2019-04-17 12:47 | IPN ---
DATE OF SERVICE: 04/17/2019 SUBJECTIVE: The patient was seen and examined at the bedside today morning. He feels much better. His shortness of breath is improving. His lower extremity edema is getting better. He reports left foot pain is better. He was given a dose of prednisone 40 mg yesterday. No significant improvement in the renal function. Creatinine is around 3 now. OBJECTIVE: Vital signs: Temperature is 96.2 degrees Fahrenheit, blood pressure 107/56, pulse is 102, respiratory rate of 19, saturating 93% on room air. Intake and output: Urine output recorded is 2.3 liters yesterday, 225 mL so far today since overnight. Weight in the bed scale is not available. PHYSICAL EXAM: General: The patient is awake, alert, oriented times three, sitting up in the bed, in no apparent distress. Head and neck exam: Extraocular muscles intact. Pupils are equally round and reactive to light. Mucous membranes are moist. Neck is supple. There is no jugular venous distention (JVD). Cardiovascular: S1, S2. 1+ edema of the bilateral lower extremities. Respiratory: Mildly decreased breath sounds at the bases, otherwise, no rales or rhonchi. Abdomen: Soft, obese, positive bowel sounds. Nontender. Musculoskeletal: No clubbing or cyanosis. Pulses are 2+. 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 Power is 5/5 in bilateral upper extremities. LAB REVIEW: CBC showed a WBC of 12.7, hemoglobin 9.7, platelets of 160. BMP shows sodium 132, potassium 3.8, chloride 87, bicarbonate is 37, BUN 100, creatinine is 3. Calcium 8.5. CURRENT INPATIENT MEDICATIONS: The patient's medications were all reviewed by me. He continues to be on torsemide 100 mg by mouth twice a day, spironolactone 25 mg by mouth daily, metolazone 2.5 mg daily. He was started on prednisone 40 mg daily. No other change in the medications today as compared with yesterday. ASSESSMENT AND PLAN: 1. Acute kidney injury superimposed on chronic kidney disease stage IV. The patient's creatinine has been fluctuating at around 3, although the calculated glomerular filtration rate (GFR) is around 21. However, given his recurrent congestive heart failure (CHF) admissions, fluid overload, gout attacks, high urea levels, the patient needs to start dialysis as soon as his fistula is mature. I also told the patient that if the patient gets admitted once more with fluid overload, that I would get a tunneled dialysis catheter and start the patient on dialysis. Patient is already on very high dose of diuretics. 2. Acute gout attack in the left foot. The patient has oral prednisone. Pain is significantly better. 3. Hypertension with chronic kidney disease. Continue current dose of Coreg and diuretics. 4. Decompensated congestive heart failure. Continue torsemide 100 mg twice a day, spironolactone 25 mg daily, and metolazone 2.5 mg by mouth daily. Volume status is getting better. 5. Anemia in chronic kidney disease. Hemoglobin is 9.7. No need of Aranesp administration at this time. 6. Disposition. The patient was seen by physical therapy (PT), and they recommended home with physical therapy. The patient is optimized from nephrology standpoint to be discharged home.
--- NOTE | 2019-04-17 13:52 | DS.PDOC ---
Discharge Summary General Date of Admission Apr 15, 2019 at 12:43 Date of Discharge 04/17/19 Discharge Summary PROCEDURES PERFORMED DURING STAY: [None]. ADMITTING DIAGNOSES: 1. Lethargy 2. Hypoxia 3. restrictive lung disease 4. SANDRA on CKD 5. Uremia 6. Abelardo 7. HTN 8. Gout DISCHARGE DIAGNOSES: 1. Lethargy 2. Hypoxia 3. restrictive lung disease 4. SANDRA on CKD 5. Uremia 6. Abelardo 7. HTN 8. Gout COMPLICATIONS/CHIEF COMPLAINT: Acute On Chronic Renal Failure, Hypoxia. HISTORY OF PRESENT ILLNESS: "Patient's a 73-year-old male with past medical history of CAD status post CABG, DM, Bladder cancer s/p surgical resection, restrictive lung disease, ABELARDO not on CPAP, CKD sent in from PMD's office for lethargy. Patient was just discharged from the hospital yesterday for fluid overload and has been doing well on PO diuretic for a few days. Unsure why he was so lethargic. at bedside reported that he wasn't able to sleep last night and appeared to be anxious and subsequently took some Xanax, became even more sleepy at patient's PMD office and was sent here. Was also found to be hypoxic at home to 80s. Patient denies any chest pain, SOB or any other complaints. " HOSPITAL COURSE: Patient was placed in ICU for close observation with resolution of symptoms without any interventions. AMS likely 2/2 kidney impairment in setting of pain meds/xanax in addition to uremia. Patient was not noted to be fluid overloaded but BUN remained elevated. Patient currently denies any symptoms, will discharge home to f/u PMD and Nephrology. Nephrology had discuss initiation gases with patient due to uremia but patient prefers to wait for the fistula to mature course long as possible. If patient does get readmitted with fine overload, patient will likely need to be initiated on dialysis at that time. DISCHARGE MEDICATIONS: Please see below. ALLERGIES: Please see below. PHYSICAL EXAMINATION ON DISCHARGE: VITAL SIGNS: Please see below. General: No acute distress, Alert Eyes: Normal sclera, EOMI, BUTCH HENT: Atraumatic, neck supple, moist mucous membranes Cardiovascular: Normal rate, normal rhythm. 1+ pitting edema b/l. Pulmonary: Clear to auscultation b/l GI: Soft, nontender, nondistended Skin: Warm and dry Neuro: CN grossly intact. No focal deficits. Strengths equal b/l. Psych: oriented x 3 LABORATORY DATA: Please see below. IMAGING: CXR- Impression: Incomplete inspiratory effort. Cardiomegaly, sternotomy wires and cardiac valve replacement. Spinal stimulator. ACTIVITY: [As tolerated]. DIET: Low sodium diet DISCHARGE PLAN: f/u PMD and Renal DISPOSITION: Home with PT. DISCHARGE INSTRUCTIONS: f/u PMD and Renal ITEMS TO FOLLOWUP ON ON OUTPATIENT: 1. ECHO DISCHARGE CONDITION: [Stable]. TIME SPENT ON DISCHARGE: 30 minutes. Vital Signs/I&Os Vital Signs Date Time Temp Pulse Resp B/P (MAP) Pulse Ox O2 Delivery O2 Flow Rate FiO2 04/17/19 09:27 18 04/17/19 08:37 102 107/56 04/17/19 06:00 96.2 93 04/16/19 07:36 2.0 04/15/19 14:45 Nasal Cannula I&O- Last 24 Hours up to 6 AM 04/17/19 06:00 Intake Total 1940 ml Output Total 1800 ml Balance 140 ml Laboratory Data Labs 24H Laboratory Tests 2 04/17/19 00:20: Magnesium Level 2.1 04/17/19 05:47: Nucleated Red Blood Cells % (auto) 0.0, Anion Gap 8, Glomerular Filtration Rate 21.6L, Blood Urea Nitrogen 100H, Creatinine 3.03H, Sodium Level 132L, Potassium Level 3.8, Chloride Level 87L, Carbon Dioxide Level 37H, Calcium Level 8.5L CBC/BMP Laboratory Tests 04/17/19 00:20 04/17/19 05:47 Red Blood Count 3.18 L, Mean Corpuscular Volume 93.7, Mean Corpuscular Hemoglobin 30.5, Mean Corpuscular Hemoglobin Concent 32.6, Red Cell Distribution Width 14.2, Calcium Level 8.5 L Discharge Medications Scheduled Ascorbic Acid (Ascorbic Acid) 500 Mg Tablet, 500 MG PO DAILY, (Reported) Atorvastatin Calcium (Atorvastatin Calcium) 20 Mg Tablet, 20 MG PO QHS, (Reported) Calcitriol (Calcitriol) 0.25 Mcg Capsule, 0.25 MCG PO QHS, (Reported) Calcium Carbonate/Vitamin D3 (Calcium 600-Vit D3 800 Tablet) 1 Each Tablet, 1 TAB PO DAILY, (Reported) TAKES AT 1400 Carvedilol (Carvedilol) 6.25 Mg Tablet, 6.25 MG PO BID, (Reported) Cetirizine HCl (Cetirizine HCl) 10 Mg Tablet, 10 MG PO QHS, (Reported) Cholecalciferol (Vitamin D3) (Vitamin D3) 4,000 Unit Capsule, 4,000 UNIT PO DAILY, (Reported) Cinacalcet (Sensipar) 30 Mg Tablet, 30 MG PO QWEEK, (Reported) TAKES ON FRIDAY MORNINGS Clopidogrel Bisulfate (Clopidogrel) 75 Mg Tablet, 75 MG PO DAILY, (Reported) Docusate Sodium (Docusate Sodium) 100 Mg Capsule, 100 MG PO BID, (Reported) Febuxostat (Uloric) 80 Mg Tablet, 80 MG PO QHS, (Reported) Lactobacillus Acidophilus (Probiotic) 1 Each Capsule, 1 CAP PO QHS, (Reported) Metolazone (Metolazone) 2.5 Mg Tablet, 2.5 MG PO DAILY, (Reported) Morphine Sulfate (Morphine Sulfate) 15 Mg Tablet, 15 MG PO TID, (Reported) Multivitamins (Thera M Plus Tablet) 1 Each Tablet, 1 TAB PO DAILY, (Reported) Naldemedine Tosylate (Symproic) 0.2 Mg Tablet, 0.2 MG PO DAILY, (Reported) Paroxetine HCl (Paroxetine HCl) 20 Mg Tablet, 20 MG PO QHS, (Reported) Prednisone (Prednisone) 1 Mg Tablet, 8 MG PO DAILY, (Reported) Ranitidine Hcl (Ranitidine HCl) 150 Mg Tablet, 1 TAB PO DAILY, (Reported) TAKES AT 1400 Spironolactone (Spironolactone) 25 Mg Tablet, 25 MG PO QPM, (Reported) TAKES AROUND 1800 Tiotropium [place] (Spiriva Respimat) 4 Gm Mist.inhal, 2 INHALATION INH DAILY, (Reported) Torsemide (Torsemide) 100 Mg Tablet, 100 MG PO BID, (Reported) IN THE MORNING AND AT 1400 Ubidecarenone (Coq-10) 100 Mg Capsule, 100 MG PO BID, (Reported) Scheduled PRN Acetaminophen/Diphenhydramine (Acetaminophen Pm Caplet) 1 Each Tablet, 2 TAB PO QHS PRN for SLEEP, (Reported) Albuterol Sulf (Albuterol Sulfate) 2.5 Mg/3 Ml Vial.neb, 2.5 MG INH Q2H PRN for SOB/WHEEZING, (Reported) Albuterol Sulfate (Proair Hfa) 8.5 Gm Hfa.aer.ad, 2 PUFF INH QID PRN for SHORTNESS OF BREATH, (Reported) Alprazolam (Alprazolam) 0.25 Mg Tablet, 0.25 MG PO TID PRN for ANXIETY, (Reported) Baclofen (Baclofen) 10 Mg Tablet, 10 MG PO BID PRN for MUSCLE SPASMS, (Reported) Benzonatate (Benzonatate) 200 Mg Capsule, 200 MG PO TID PRN for COUGH, (Reported) Hydroxyzine HCl (Hydroxyzine HCl) 25 Mg Tablet, 25 MG PO TID PRN for ITCHING, (Reported) Miscellaneous Medications [Pharmacy Comment ] , (Reported) PATIENT STATES HE TOOK MORNING MEDS LAST NIGHT ALONG WITH NIGHT MEDS DUE TO MISSING MORNING DOSES YESTERDAY 04/14/19. Allergies Coded Allergies: aspirin (Verified Allergy, Severe, LIPS SWELL, 03/29/19) Penicillins (Verified Allergy, Intermediate, RASH, 04/15/19) ampicillin (Verified Allergy, Intermediate, HIVES, 03/17/19) ceftriaxone (Verified Allergy, Unknown, UNKNOWN REACTION, 04/09/19) ALEIDA VALENTINE MD Apr 17, 2019 13:52
[2019-04-17 14:00] VITALS: BP 120/94
--- NOTE | 2019-04-18 07:39 | ECHO ---
DATE OF STUDY: 04/17/2019 REFERRING PHYSICIAN: Dr. Bozena Carrasco INDICATION: Heart failure, unspecified. HEIGHT: 167 cm WEIGHT: 109 kg 2D MEASUREMENTS: Ventricular septum: 1.21 cm Posterior wall: 1.22 cm Left ventricle diastole: 5.1 cm Left atrium: 4.5 cm Aortic root: 2.7 cm Inferior vena cava: 1.8 cm DOPPLER MEASUREMENTS: Aortic valve velocity: 304 cm/s Peak aortic valve gradient: 37 mmHg Mean aortic valve gradient: 20 mmHg Aortic VTI: 68.1 cm LVOT velocity: 120 cm/s LVOT VTI: 26.5 cm Mitral E velocity (CW): 217 cm/s Mitral A velocity: 171 cm/s Mean mitral gradient: 8 mmHg Mitral pressure half-time: 99 ms Mild tricuspid regurgitation. Estimated right ventricle systolic pressure 33-38 mmHg, assuming right pressure of 5-10 mmHg. DESCRIPTION: Rhythm was sinus. This is a moderately technically difficult echocardiogram. This was a 2D, M-mode, color flow Doppler, and pulse wave Doppler examination and included mitral annular tissue Doppler. No pericardial effusion. CONCLUSIONS: 1. Very mild concentric left ventricle hypertrophy. Normal regional left ventricular (LV) wall motion and wall thickening. Normal LV systolic function. Left ventricular ejection fraction (LVEF) 70% by visual estimate. Unable to assess LV diastolic function in the setting of status post mitral valve bioprosthesis. 2. Well-seated and normally functioning mitral valve bioprosthesis. No mitral regurgitation or stenosis. 3. 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 No aortic regurgitation. 4. Mild left atrial dilatation. 5. Suggestive of mild elevation of estimated right ventricle systolic pressure. RECOMMENDATIONS: 1. Recommend a followup echocardiogram Doppler in 1 year. 2. Recommend infective endocarditis prophylaxis prior to dental procedures likely to produce transient bacteremia.
== END 2019-04-17 16:05 | disposition home or self-care (01) | DRG 683 ==
LOC: EDBD 09:23 → M ED 09:23 → M ED INP 12:43 → M ICU 15:03 → M MSPAV 04-16 14:40
PROVIDERS: ADMIT Student in an Organized Health Care Education/Training Program; ATTEND Student in an Organized Health Care Education/Training Program
DX: N17.9 Acute kidney failure, unspecified (principal); I13.0 Hypertensive heart and chronic kidney disease with heart failure and stage 1 through stage 4 chronic kidney disease, or unspecified chronic kidney disease; N18.4 Chronic kidney disease, stage 4 (severe); I50.9 Heart failure, unspecified; R53.83 Other fatigue; R09.02 Hypoxemia; G47.33 Obstructive sleep apnea (adult) (pediatric); M10.9 Gout, unspecified; I25.10 Atherosclerotic heart disease of native coronary artery without angina pectoris; Z95.1 Presence of aortocoronary bypass graft; E11.9 Type 2 diabetes mellitus without complications; Z85.51 Personal history of malignant neoplasm of bladder; Z79.899 Other long term (current) drug therapy; Z88.6 Allergy status to analgesic agent; Z88.0 Allergy status to penicillin; Z88.8 Allergy status to other drugs, medicaments and biological substances; Z91.19 Patient's noncompliance with other medical treatment and regimen; F40.240 Claustrophobia; D63.1 Anemia in chronic kidney disease; N25.81 Secondary hyperparathyroidism of renal origin

== ENCOUNTER → 2019-04-23 | Outpatient (REF) | payer MEDICARE, OTHER ==
[~2019-04-23] MED LIST changes: +PHARMACY COMMENT
== END ==
LOC: M SMT 17:02
PROVIDERS: ATTEND Urology
DX: C67.9 Malignant neoplasm of bladder, unspecified (principal)

== ENCOUNTER 2019-04-25 03:27 | Inpatient (IN) | payer MEDICARE, OTHER ==
[~2019-04-25] VITALS: Ht 167.6 cm; Wt 100.8 kg
[2019-04-25] MEDS ORDERED: dexameTHASONE 20 MG/5 ML VIAL (J1100) IV ONE (04:30)
[2019-04-25] MEDS ORDERED: IPRATROPIUM 0.5MG/ALBUTEROL 2.5MG INH SOL UD 3ML (DUONEB)(J7620) NEB ONE (04:30)
[2019-04-25] MEDS ORDERED: FUROSEMIDE 100 MG/10 ML VIAL (J1940) IV ONE (04:30)
[2019-04-25 04:33] LABS: BASO # 0.1 10^3/uL (0.0-0.2); BASO % 0.3 % (0.0-1.0); EOS # 0.2 10^3/uL (0.0-0.50); EOS % 1.3 % (0.0-3.0); HEMATOCRIT 31.9 % (42.0-52.0); HEMOGLOBIN 10.5 g/dl (13.5-17.5); LYMPH # 2.3 10^3/uL (1.5-4.5); LYMPH % 15.8 % (24.0-44.0); MEAN CORPUSCULAR HEMOGLOBIN 31.2 pg (27.0-33.0); MEAN CORPUSCULAR HGB CONC 32.9 g/dl (32.0-36.5); MEAN CORPUSCULAR VOLUME 94.7 fl (80.0-96.0); MONO # 1.4 10^3/uL (0.0-0.8); MONO % 9.6 % (0.0-5.0); NEUTROPHILS # 10.2 10^3/uL (1.8-7.7); NEUTROPHILS % 70.8 % (36.0-66.0); PLATELET COUNT, AUTOMATED 215 10^3/uL (150-450); RED BLOOD COUNT 3.37 10^6/uL (4.30-6.10); WHITE BLOOD COUNT 14.4 10^3/uL (4.0-10.0)
[2019-04-25 04:52] LABS: CALCIUM LEVEL 8.5 MG/DL (8.8-10.2); CK-MB VALUE MASS 1.8 NG/ML (<3.6); CREATININE FOR GFR 4.36 MG/DL (0.70-1.30); GLOMERULAR FILTRATION RATE 14.2 (>42); MB/CK RELATIVE INDEX 2.65 (< OR =4); POTASSIUM SERUM 3.6 MEQ/L (3.5-5.1); TROPONIN I 0.03 NG/ML (< 0.10)
[2019-04-25 05:27] LABS: ABG BASE EXCESS 3.7 (-2.0-2.0); ABG HCO3 29.9 MEQ/L (22.0-26.0); ABG O2 SATURATION 88.9 % (95.0-99.0); ABG PARTIAL PRESSURE CO2 53.3 mmHg (35.0-45.0); ABG STANDARD HCO3 27.6 MEQ/L (22.0-26.0); ABG TOTAL CO2 31.5 MEQ/L (23.0-31.0); ABG pH (ARTERIAL) 7.367 UNITS (7.350-7.450)
[2019-04-25] MEDS ORDERED: hydrOXYzine 25 MG TAB PO PRN (06:15)
[2019-04-25] MEDS ORDERED: BENZONATATE 100 MG CAP PO PRN (06:15)
[2019-04-25] MEDS ORDERED: IPRATROPIUM 0.5MG/ALBUTEROL 2.5MG INH SOL UD 3ML (DUONEB)(J7620) NEB PRN (06:15)
[2019-04-25] MEDS ORDERED: BACLOFEN 10 MG TAB PO PRN (06:15)
[2019-04-25] MEDS ORDERED: POTASSIUM CHLORIDE 10 MEQ SR TABLET PO ONE (06:30)
[2019-04-25] MEDS ORDERED: GLUCOSE 4 GM CHEW TABLET PO PRN (06:30)
[2019-04-25] MEDS ORDERED: DEXTROSE 50% 50 ML SYRINGE IV PRN (06:30)
[2019-04-25] MEDS ORDERED: GLUCAGON FOR INJ 1 MG VIAL (J1610) SC PRN (06:30)
--- NOTE | 2019-04-25 06:40 | HPEPDOC ---
[facility] Medical History & Physical Date of Admission Apr 25, 2019 Date of Service: Apr 25, 2019 History and Physical PCP: Aniyah Whizzer Hand: Herminia CHIEF COMPLAINT: Shortness of breath HISTORY OF PRESENT ILLNESS: Patient is a 73-year-old man with known history of congestive heart failure with preserved ejection fraction mitral valve bioprosthesis who is recently been admitted 04/09 through 04/14 then again 04/15 through 04/17. Patient once again returns with the same complaints he previously had shortness of breath. The patient's tells me that she feels it is all secondary to anxiety she states that he is sleeping well in the emergency room here however he has not slept well at home last several days and even while awake is intimately complained of progressively worsening shortness of breath until this evening in the middle of the night he awoke short of breath insisting on coming to the emergency room. He denies associated chest pressure and at this time as tells me he is feeling better, thus far on emergency room he received Decadron IV Lasix and DuoNeb's. Patient recently had a left upper extremity fistula placed and they're waiting for maturation prior to initiation of hemodialysis Otherwise patient denies weight loss, hair loss, headache, visual changes, cough, nausea, vomiting, diarrhea, abdominal pain, muscle aches, worsening arthritis, change in mood PAST MEDICAL HISTORY: 1. Coronary artery disease status post CABG. 2. Bladder cancer. 3. Obstructive sleep apnea and noncompliant with CPAP 4. Diabetes mellitus 5. Congestive heart failure with preserved ejection fraction 6. Bioprosthetic mitral valve replacement 7. Gout 8. Anemia. 9. Anxiety 10. COPD HOME MEDICATIONS: Please see below. ALLERGIES: Please see below PAST SURGICAL HISTORY: 1. Left upper extremity AV fistula placement. 2. CABG. 3. Knee replacement 4. Elbow surgery 5. Spinal stimulator implantation 6. Numerous bladder surgeries 7. Mitral valve replacement SOCIAL HISTORY: Lives with: , Employment: Not currently working, Tobacco use: Former smoker quit 19 years ago. ETOH: Denies, Illicit drug use: Denies, Tattoos done unprofessionally: Denies, CODE STATUS: Full code FAMILY HISTORY:Reviewed and noncontributory REVIEW OF SYSTEMS: 10 systems reviewed and negative other than HPI PHYSICAL EXAMINATION: VITAL SIGNS: Temperature 96.9, pulse 86, respiratory rate 20, blood pressure 133/87, pulse oximetry 96 % on 2 L. GENERAL: Pleasant morbidly obesesitting up in bed lethargic but arousable to verbal stimuli speaking in complete sentences no acute distress HEENT: Moist mucous membranes elevation and CVP although exam is difficult secondary to body habitus CARDIOVASCULAR: S1 S2 regular no additional heart sounds appreciated. RESPIRATORY: Rales bilaterally two thirds of both lung gross. ABDOMINAL: Bowel sounds present abdomen soft and nontender, grossly obese EXTREMITIES: No clubbing cyanosis, 1+ edema bilaterally. Left upper extremity fistula with thrill does not appear haematuria NEUROLOGICAL: Spontaneously moves all 4 extremities cranial 2 through 12 grossly intact no gross focal deficits appreciated PSYCHOLOGICAL: Lethargic but otherwise Appropriate LABORATORY DATA: See below. MICROBIOLOGY: Please see below. IMAGING: Chest x-ray: Report pending ASSESSMENT & PLAN: This is a 73-year-old man with decompensated congestive heart failure with preserved ejection fraction. PROBLEMS: 1. Hypercapnic respiratory failure secondary to Decompensated congestive heart failure with preserved ejection fraction: Likely secondary to the stage IV's EKG progressing to end-stage renal disease. This is his third hospitalization this month his fistula does not appear mature to me will defer to nephrology. I will place a consult to nephrology at this time I anticipate him initiating hemodialysis as soon as possible patient has failed discharge home on oral diuretics. In the interim I'll provide him with IV Lasix continue with his metolazone monitor I's and O's daily weights place him on a renal consistent carb diet with fluid restriction.. I suspect his respiratory failure is likely multifactorial in nature underlying obstructive sleep apnea with elevated pulmonary pressures for which she is noncompliant as well as anxiety for which she may have been sedated with narcotics and benzodiazepines. Would recommend rechecking an arterial blood gases morning should he fail to improve or become more lethargic could consider transfer the medical intensive care unit for BiPAP 2.Acute on chronic kidney injury: Possibly cardiorenal syndrome will attempt IV diuresis and monitor his electrolytes and renal function closely likely require HD sooner rather than later 3. Obstructive sleep apnea: Noncompliant with CPAP likely triggering factor to his worsened symptoms acutely while sleeping tonight. I did discuss this at length with him he is aware the risk of dying in his sleep suddenly but is too claustrophobic even think of attempting to wear it 4. Hypertension: Continue with Coreg and aggressive diuresis, continue with spironolactone carvedilol metolazone 5. Anemia of end-stage renal disease stable continue to monitor 6. Diabetes: Sliding scale and hypoglycemic protocol 7. Coronary artery disease: Does not appear to be acutely symptomatic monitor on telemetry he recently had an echocardiogram will trend his cardiac enzymes. Continue with statin beta faisal and Plavix 8. Chronic pain: Continue with baclofen morphine with holding parameters for sedation 9. Anxiety: Continue with alprazolam as well as hydroxyzine when necessary but hold for sedation disease medication may be contributing to his hypercapnia 10. Seasonal allergies: Continue with cetirizine 11. Gout continue with caloric 12. Mood disorder: Continue with paroxetine 13 chronic steroid use: He is on prednisone 7 mg daily does not appear to be adrenally insufficient at this time continue to monitor continue with his home steroid dosing 14. COPD: He is on steroids at baseline we'll provide with nebulizers and hold his home inhalers DVT PROPHYLAXIS: Heparin twice a day DISPOSITION: Admitted to PCU with respiratory failure prognosis is guarded Vital Signs Vital Signs Date Time Temp Pulse Resp B/P (MAP) Pulse Ox O2 Delivery O2 Flow Rate FiO2 04/25/19 06:00 88 18 118/59 (78) 95 Nasal Cannula 2.0 04/25/19 03:33 96.9 Laboratory Data Labs 24H Laboratory Tests 2 04/25/19 04:01: Immature Granulocyte % (Auto) 2.2, White Blood Count 14.4H, Red Blood Count 3.37L, Hemoglobin 10.5L, Hematocrit 31.9L, Mean Corpuscular Volume 94.7, Mean Corpuscular Hemoglobin 31.2, Mean Corpuscular Hemoglobin Concent 32.9, Red Cell Distribution Width 14.6H, Platelet Count 215, Neutrophils (%) (Auto) 70.8H, Lymphocytes (%) (Auto) 15.8L, Monocytes (%) (Auto) 9.6H, Eosinophils (%) (Auto) 1.3, Basophils (%) (Auto) 0.3, Neutrophils # (Auto) 10.2H, Lymphocytes # (Auto) 2.3, Monocytes # (Auto) 1.4H, Eosinophils # (Auto) 0.2, Basophils # (Auto) 0.1, Nucleated Red Blood Cells % (auto) 0.0, Anion Gap 11, Glomerular Filtration Rate 14.2L, Blood Urea Nitrogen 159H, Creatinine 4.36H, Sodium Level 135L, Potassium Level 3.6, Chloride Level 90L, Carbon Dioxide Level 34H, Calcium Level 8.5L, Total Creatine Kinase 68, Creatine Kinase MB 1.8, Creatine Kinase MB Relative Index 2.65, Troponin I 0.03, KJ-Cdf-D-Type Natriuretic Peptide 2602H 04/25/19 05:04: Blood Gas Bicarbonate Standard 27.6H, Arterial Blood pH 7.367, Arterial Blood Partial Pressure CO2 53.3H, Arterial Blood Partial Pressure O2 64.0L, Arterial Blood Total CO2 31.5H, Arterial Blood HCO3 29.9H, Arterial Blood Base Excess 3.7H, Arterial Blood Oxygen Saturation 88.9L CBC/BMP Laboratory Tests 04/25/19 04:01 Red Blood Count 3.37 L, Mean Corpuscular Volume 94.7, Mean Corpuscular Hemoglobin 31.2, Mean Corpuscular Hemoglobin Concent 32.9, Red Cell Distribution Width 14.6 H, Neutrophils (%) (Auto) 70.8 H, Lymphocytes (%) (Auto) 15.8 L, Monocytes (%) (Auto) 9.6 H, Eosinophils (%) (Auto) 1.3, Basophils (%) (Auto) 0.3, Neutrophils # (Auto) 10.2 H, Lymphocytes # (Auto) 2.3, Monocytes # (Auto) 1.4 H, Eosinophils # (Auto) 0.2, Basophils # (Auto) 0.1, Calcium Level 8.5 L, Total Creatine Kinase 68 Home Medications Scheduled Ascorbic Acid (Ascorbic Acid) 500 Mg Tablet, 500 MG PO DAILY Atorvastatin Calcium (Atorvastatin Calcium) 20 Mg Tablet, 20 MG PO QHS Calcitriol (Calcitriol) 0.25 Mcg Capsule, 0.25 MCG PO QHS Calcium Carbonate/Vitamin D3 (Calcium 600-Vit D3 800 Tablet) 1 Each Tablet, 1 TAB PO DAILY TAKES AT 1400 Carvedilol (Carvedilol) 6.25 Mg Tablet, 6.25 MG PO BID Cetirizine HCl (Cetirizine HCl) 10 Mg Tablet, 10 MG PO QHS Cholecalciferol (Vitamin D3) (Vitamin D3) 4,000 Unit Capsule, 4,000 UNIT PO DAILY Cinacalcet (Sensipar) 30 Mg Tablet, 30 MG PO QWEEK TAKES ON FRIDAY MORNINGS Clopidogrel Bisulfate (Clopidogrel) 75 Mg Tablet, 75 MG PO DAILY Docusate Sodium (Docusate Sodium) 100 Mg Capsule, 100 MG PO BID Febuxostat (Uloric) 80 Mg Tablet, 80 MG PO QHS Lactobacillus Acidophilus (Probiotic) 1 Each Capsule, 1 CAP PO QHS Metolazone (Metolazone) 2.5 Mg Tablet, 2.5 MG PO DAILY Morphine Sulfate (Morphine Sulfate) 15 Mg Tablet, 15 MG PO TID Multivitamins (Thera M Plus Tablet) 1 Each Tablet, 1 TAB PO DAILY Naldemedine Tosylate (Symproic) 0.2 Mg Tablet, 0.2 MG PO DAILY Paroxetine HCl (Paroxetine HCl) 20 Mg Tablet, 20 MG PO QHS Prednisone (Prednisone) 1 Mg Tablet, 7 MG PO DAILY Ranitidine Hcl (Ranitidine HCl) 150 Mg Tablet, 1 TAB PO DAILY TAKES AT 1400 Spironolactone (Spironolactone) 25 Mg Tablet, 25 MG PO QPM TAKES AROUND 1800 Tiotropium Lehr (Spiriva Respimat) 4 Gm Mist.inhal, 2 PUFFS INH DAILY Torsemide (Torsemide) 100 Mg Tablet, 100 MG PO BID IN THE MORNING AND AT 1400 Ubidecarenone (Coq-10) 100 Mg Capsule, 100 MG PO BID Scheduled PRN Acetaminophen/Diphenhydramine (Acetaminophen Pm Caplet) 1 Each Tablet, 2 TAB PO QHS PRN for SLEEP Albuterol Sulf (Albuterol Sulfate) 2.5 Mg/3 Ml Vial.neb, 2.5 MG INH Q2H PRN for SOB/WHEEZING Albuterol Sulfate (Proair Hfa) 8.5 Gm Hfa.aer.ad, 2 PUFF INH QID PRN for SHORTNESS OF BREATH Alprazolam (Alprazolam) 0.25 Mg Tablet, 0.25 MG PO TID PRN for ANXIETY Baclofen (Baclofen) 10 Mg Tablet, 10 MG PO BID PRN for MUSCLE SPASMS Benzonatate (Benzonatate) 200 Mg Capsule, 200 MG PO TID PRN for COUGH Hydroxyzine HCl (Hydroxyzine HCl) 25 Mg Tablet, 25 MG PO TID PRN for ITCHING Allergies Coded Allergies: aspirin (Verified Allergy, Severe, LIPS SWELL, 03/29/19) Penicillins (Verified Allergy, Intermediate, RASH, 04/15/19) ampicillin (Verified Allergy, Intermediate, HIVES, 03/17/19) ceftriaxone (Verified Allergy, Unknown, UNKNOWN REACTION, 04/09/19) A-FIB/CHADSVASC A-FIB History Current/History of A-Fib/PAF?: No NICOLASA CID MD Apr 25, 2019 06:40
--- NOTE | 2019-04-25 07:09 | ECGEPIP ---
[facility] - ED Test Date: 2019-04-25 Pat Name: VEDA BARRERA Department: Room: - Gender: Male Investigative Reporter: PRABHAKAR : 1945 Requested By: GONZÁLEZ HODGE Order Number: [id number] Reading MD: Marie Soriano Measurements Intervals [place] Rate: 89 P: 7 IA: 164 QRS: 1 QRSD: 163 T: 15 QT: 429 QTc: 523 Interpretive Statements SINUS RHYTHM WITH FREQUENT VENTRICULAR PREMATURE COMPLEXES LEFT ATRIAL ENLARGEMENT RIGHT BUNDLE BRANCH BLOCK INCREASED RATE 04/15/19 Electronically Signed on 04-25-2019 7:09:12 EDT by Marie Soriano
[2019-04-25 07:18] LABS: MAGNESIUM LEVEL 1.6 MG/DL (1.8-2.4)
--- NOTE | 2019-04-25 07:20 | REP ---
Clinical: Cough and dyspnea . Comparison: 04/15/2019 . Findings: The mediastinum and cardiac silhouette are stable and within normal limits for portable technique. Evidence of prior sternotomy with CABG, valve repair and neural stimulator overlying the mid thoracic level. The lung gross demonstrate chronic changes and subtle right basilar atelectasis cannot be excluded. No focal consolidation or effusion. No pneumothorax. Skeletal structures are intact. Impression: Chronic stable changes. Cannot exclude subtle right basilar atelectasis. Electronically Signed by Krishan Mead MD 04/25/2019 07:11 A
[2019-04-25 08:00] VITALS: BP 130/64
[2019-04-25] MEDS ORDERED: MAG SULF 1GM/100ML (MAG RUN) 1 GM in APPROPRIATE DILUENT 1 EA IV ONE (08:00)
[2019-04-25] MEDS: IPRATROPIUM 0.5MG/ALBUTEROL 2.5MG INH SOL UD 3ML (DUONEB)(J7620) NEB SCH ×3 (08:01→20:22)
[2019-04-25] MEDS: HEPARIN SOD (PORCINE) 5000 UNITS/ML VIAL SC SCH ×2 (08:27→21:50)
[2019-04-25] MEDS: HumaLOG INSULIN (NovoLOG) PER UNIT SC SCH ×4 (08:27→21:49)
[2019-04-25] MEDS: predniSONE 1 MG TAB PO SCH (08:28)
[2019-04-25] MEDS: CARVedilol 6.25 MG TAB PO SCH ×2 (08:29→21:49)
[2019-04-25] MEDS: MULTIVITAMINS/MINERALS THERAP 1 TAB PO SCH (08:29)
[2019-04-25] MEDS: CLOPIDOGREL 75 MG TAB PO SCH (08:29)
[2019-04-25] MEDS ORDERED: ASCORBIC ACID 500 MG TAB PO SCH (09:00)
[2019-04-25] MEDS ORDERED: metOLazone 2.5 MG TAB PO SCH (09:00)
[2019-04-25] MEDS ORDERED: SLF 3 ML SYR IV PRN (10:15)
[2019-04-25] MEDS: MORPHINE 30 MG TAB **MSIR PO SCH ×3 (10:35→21:48)
[2019-04-25 10:39] LABS: CHOLESTEROL RISK RATIO 3.395 (<5)
[2019-04-25 11:06] LABS: HEMOGLOBIN A1c 7.4 %
[2019-04-25] MEDS: TORSEMIDE 100 MG TAB PO SCH (11:35)
[2019-04-25 12:00] VITALS: BP 120/72
[2019-04-25] MEDS: SLF 3 ML SYR IV SCH ×2 (12:54→21:50)
[2019-04-25] MEDS ORDERED: FUROSEMIDE 100 MG/10 ML VIAL (J1940) IV SCH (13:00)
[2019-04-25] MEDS: FAMOTIDINE 20 MG TAB PO SCH (14:00)
[2019-04-25] MEDS ORDERED: HEPARIN SOD (PORCINE) 5000 UNITS/ML VIAL As Ordered ONE (14:28)
[2019-04-25] MEDS ORDERED: LIDOCAINE 1% SDV INJ 30 ML VIAL As Ordered ONE (14:28)
--- NOTE | 2019-04-25 14:43 | CR ---
DATE OF CONSULTATION: 04/25/2019 REQUESTING PHYSICIAN: Dr. Mark Garner. CONSULTING PHYSICIAN: Dr. Carrasco. REASON FOR CONSULTATION: Management of acute renal failure superimposed on chronic kidney disease stage IV and fluid overload. CHIEF COMPLAINT: Patient presented to the hospital last night with shortness of breath. HISTORY OF PRESENT ILLNESS: Patient Maik Groves is a 73-year-old male with past medical history of chronic kidney disease stage IV, recently had left upper arm atrioventricular (AV) fistula placed; he is awaiting for the maturation of the AV fistula for the initiation of hemodialysis, chronic diastolic congestive heart failure with left ventricular (LV) ejection fraction of around 70%, diabetes mellitus type 2 and multiple other comorbidities, as mentioned below. He is well-known to nephrology service from multiple previous hospitalizations and from outpatient nephrology clinic visits as well. He has been having multiple episodes of shortness of breath and fluid overload and this is his fifth presentation to the hospital within one month. Patient came back again last night with sudden onset of shortness of breath, feeling of heavy breathing and it was accompanied anxiety as well. He was unable to sleep well at night. As reported by , patient has not slept well for the last many days. He was admitted under the hospitalist service last night. He was started on intravenous (IV) Lasix injections. Outpatient regimen of torsemide, spironolactone, and metolazone is still not helping and he reports a persistent lower extremity edema as well. Patient's creatinine on arrival was 4.3 with a BUN of 159. I saw and evaluated the patient today morning at the bedside. He reports his shortness of breath is slightly better today as compared with yesterday; however, because of the persistent congestive heart failure (CHF) and recurrent admissions, he has finally agreed to start hemodialysis during this hospitalization. PAST MEDICAL HISTORY: 1. Chronic kidney disease stage IV. 2. History of chronic diastolic congestive heart failure , left ventricular (LV) ejection fraction 70%. 3. History of obstructive sleep apnea, noncompliant with continuous positive airway pressure (C-PAP) because of claustrophobia. 4. History of bladder cancer. 5. Diabetes mellitus type 2. 6. 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 7. Anemia secondary to chronic kidney disease. 8. Anxiety. 9. Chronic obstructive pulmonary disease (COPD). PAST SURGICAL HISTORY: 1. Status post left upper arm atrioventricular (AV) fistula placement. 2. Status post coronary artery bypass grafting. 3. Status post spinal stimulator implantation. 4. Mitral valve replacement. 5. Knee replacement. 6. Bladder surgeries in the past. ALLERGIES: Patient is allergic to PENICILLINS, ASPIRIN, and CEFTRIAXONE. FAMILY HISTORY: No significant family history of end-stage renal disease requiring hemodialysis. SOCIAL HISTORY: Patient lives at home with his . He is a former smoker. He denies any active smoking, illicit drug abuse or alcohol abuse. REVIEW OF SYSTEMS: CONSTITUTIONAL: Patient denies any fevers or chills. He does report feeling weak and tired EYES: He denies any blurry vision, double vision. EARS, NOSE AND THROAT (ENT): Denies any dysphagia, odynophagia, ear discharge. CARDIOVASCULAR: He does report some palpitation and lower extremity edema. RESPIRATORY: Does report shortness of breath and orthopnea. GASTROINTESTINAL (GI): He reports decreased appetite. Otherwise he denies any nausea, vomiting. GENITOURINARY: He denies any dysuria or hematuria. MUSCULOSKELETAL: Denies any muscle aches and pains. He does report lower extremity edema. SKIN: He denies any rashes or ulcers. CENTRAL NERVOUS SYSTEM (FARM MACHINE TENDER): He denies any strokes or seizures. ENDOCRINE: He reports history of diabetes mellitus type 2. HEMATOLOGY/ONCOLOGY: He denies any easy bleeding or bruising. All other review of systems is negative. PHYSICAL EXAMINATION: GENERAL: Patient is slightly drowsy, but otherwise he is able to communicate and answer questions. VITAL SIGNS: Temperature is 96.8 degrees Fahrenheit, blood pressure 130/64, pulse is 89, respiratory rate of 22, saturating 98% on 2 liters via nasal cannula. HEAD AND NECK EXAM: Extraocular muscles intact. Pupils equally, round and reactive to light. Mucous membranes are moist. NECK: Supple. There is mildly elevated jugular venous distention (JVD). CARDIOVASCULAR: S1, S2. Prosthetic valve sounds were heard. 2+ edema of the bilateral lower extremities. RESPIRATORY: Mildly decreased breath sounds at the bases with mild respiratory crackles. Right is worse than left. ABDOMEN: Soft, obese, positive bowel sounds. Nontender. No organomegaly. MUSCULOSKELETAL: No clubbing or cyanosis. 2+ edema of the bilateral lower extremities. CENTRAL NERVOUS SYSTEM (FARM MACHINE TENDER): Patient has mild asterixis. Otherwise he is able to follow commands and moves extremities. LABORATORY REVIEW: Complete blood count (CBC) showed a WBC of 14.4, hemoglobin is 10.5, platelets are 215. Urinalysis showed there was no protein and no blood. Arterial blood gas (ABG) done today morning showed a pH of 7.36, pCO2 of 53, pO2 64, bicarbonate is 29, oxygen saturation is 88.9%. Basic metabolic panel (BMP) showed sodium 135, potassium 3.6, chloride 90, bicarbonate 34, BUN 159, creatinine is 4.3. A1c 7.4. Phosphorus is 6. Dialysis hepatitis serologies pending. IMAGING STUDIES: A chest x-ray was done today morning which showed chronic stable changes. Cannot exclude subtle right basilar atelectasis. CURRENT INPATIENT MEDICATIONS: Patient was given a dose of Maxifed 1 gram IV times one dose. He is on: - DuoNeb nebulizations - Xanax 0.25 mg by mouth three times a day as needed for anxiety - vitamin C 5-500 mg by mouth daily, which I am stopping right now - Lipitor 20 mg nightly - baclofen as needed for muscle spasm - Tessalon as needed - Coreg 6.25 mg by mouth three times a day - Zyrtec 10 mg by mouth nightly - Plavix 75 mg by mouth daily - Decadron 20 mg IV times one dose - Uloric 80 mg by mouth nightly - He was given Lasix 80 mg IV every 8 hours - heparin 5000 units subcutaneous every 12 hours - Atarax as needed for itching - insulin sliding scale. - He was on metolazone 2.5 mg by mouth daily, which I am stopping right now. - morphine sulfate immediate release (MSIR) 15 mg by mouth three times a day - multivitamin infusion (MVI) one tablet by mouth daily - Paxil 20 mg nightly - He was given dose of potassium chloride 40 mEq times one dose. - He is on prednisone 7 mg by mouth daily - spironolactone 25 mg by mouth daily. - I have started the patient on torsemide 100 mg by mouth daily ASSESSMENT: A 73-year-old male with past medical history of chronic kidney disease stage IV, left upper arm AV fistula is maturing, history of a diastolic congestive heart failure, diabetes mellitus type 2, obstructive sleep apnea, with the recurrent admissions for shortness of breath. PLAN: 1. Acute renal failure superimposed on chronic kidney disease stage IV. Patient is on high dose diuretics because of recurrent congestive heart failure (CHF) and shortness of breath. He has a post end-stage renal disease. Left upper arm AV fistula is not mature. Patient needs to be emergently dialyzed. I have already requested vascular surgery to place a tunneled hemodialysis catheter and he will be dialyzed emergently today for two hours for optimization of his acid base status, uremia and fluid status. 2. Acute decompensated diastolic congestive heart failure. Patient still has lower extremity edema despite high dose of diuretics, combination of loop diuretic, metolazone and spironolactone. I am switching him back to oral diuretics, torsemide 100 mg by mouth daily and spironolactone 25 mg by mouth daily. The rest of the fluid status will be optimized with hemodialysis. 3. Anemia in end-stage renal disease. Hemoglobin is 10.5, which is optimal. If it drops below 10, patient will be started on Aranesp. 4. Hypertension with end-stage renal disease. Continue current dose of Coreg 6.25 mg by mouth twice a day. Optimization of volume status will also help improve blood pressure. 5. 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 Continue home dose of Uloric 80 mg by mouth daily. Dialysis will also help improve the uric acid level. 6. History of anxiety. Continue as needed benzodiazepine. Once the patient's fluid status is optimized and his CHF symptoms get better, his anxiety level will also improve. 7. Chronic kidney disease/mineral bone disease. Patient has of phosphorus level of 6. I am not starting him on any phosphorus binders. Phosphorus level is expected to improve after hemodialysis. 8. Diabetes mellitus type 2. Continue insulin sliding scale. Hemoglobin A1c level is within the acceptable range. 9. Chronic obstructive pulmonary disease (COPD). Continue steroids and nebulizations as per primary team. Thank you for involving me in the care of this patient. I shall be happy to follow the patient along with you tomorrow morning. Plan of care and initiation of dialysis was discussed with the patient and his at the bedside. Total critical care time spent in the management of this patient for his emergent nature of renal failure and fluid overload requiring dialysis was 45 minutes. This does not include any procedure. [facility]
[2019-04-25] MEDS ORDERED: MIDAZOLAM INJ 2 MG/2 ML VIAL (J2250) As Ordered ONE (15:05)
--- NOTE | 2019-04-25 15:45 | REP ---
Clinical: Perma-Catheter placement. Technique: Intraoperative fluoroscopic imaging using portable C-arm technique. Findings: The patient is status post Perma-Cath placement extending into the SVC. Total fluoroscopic time 1 second. Impression: Status post satisfactory Perma-Cath placement. Electronically Signed by Krishan Mead MD 04/25/2019 03:36 P
[2019-04-25 16:00] VITALS: BP 123/59
[2019-04-25 16:30] VITALS: BP 125/68
[2019-04-25] MEDS: SPIRONOLACTONE 25 MG TAB PO SCH (17:26)
[2019-04-25] MEDS ORDERED: HEPARIN 1,000 UNITS/ML 10ML VIAL (FOR RADIOLOGY& DIALYSIS ONLY) XX ONE (19:00)
[2019-04-25 20:00] VITALS: BP 158/82
[2019-04-25] MEDS: FEBUXOSTAT 40 MG TABLET (ULORIC) PO SCH (21:49)
[2019-04-25] MEDS: ATORVASTATIN 20 MG TAB PO SCH (21:49)
[2019-04-25] MEDS: CETIRIZINE (ZyrTEC) 10 MG TAB PO SCH (21:49)
[2019-04-25] MEDS: PARoxetine 20 MG TAB PO SCH (21:50)
[2019-04-25 23:37] LABS: CALCIUM LEVEL 8.9 MG/DL (8.8-10.2); CREATININE FOR GFR 3.02 MG/DL (0.70-1.30); GLOMERULAR FILTRATION RATE 21.7 (>42); MAGNESIUM LEVEL 2.1 MG/DL (1.8-2.4); POTASSIUM SERUM 4.3 MEQ/L (3.5-5.1)
[2019-04-25 23:59] VITALS: BP 138/78
[2019-04-26] MEDS: IPRATROPIUM 0.5MG/ALBUTEROL 2.5MG INH SOL UD 3ML (DUONEB)(J7620) NEB SCH ×4 (02:36→20:27)
[2019-04-26 04:45] VITALS: BP 109/51
[2019-04-26 05:56] LABS: HEMOGLOBIN 9.9 g/dl (13.5-17.5); MEAN CORPUSCULAR HEMOGLOBIN 30.4 pg (27.0-33.0); PLATELET COUNT, AUTOMATED 190 10^3/uL (150-450); RED BLOOD COUNT 3.26 10^6/uL (4.30-6.10); WHITE BLOOD COUNT 11.8 10^3/uL (4.0-10.0)
[2019-04-26] MEDS: SLF 3 ML SYR IV SCH ×3 (06:00→20:46)
[2019-04-26 06:24] LABS: CALCIUM LEVEL 8.6 MG/DL (8.8-10.2); CREATININE FOR GFR 3.22 MG/DL (0.70-1.30); GLOMERULAR FILTRATION RATE 20.2 (>42); POTASSIUM SERUM 4.2 MEQ/L (3.5-5.1)
[2019-04-26] MEDS: HumaLOG INSULIN (NovoLOG) PER UNIT SC SCH ×4 (07:30→20:26)
[2019-04-26 08:00] VITALS: BP 162/80
[2019-04-26] MEDS: MORPHINE 30 MG TAB **MSIR PO SCH ×3 (09:00→20:44)
--- NOTE | 2019-04-26 10:32 | IPNPDOC ---
Subjective Date Seen The patient was seen on 04/26/19. Subjective Chief Complaint/HPI Patient very regular for him hemodialysis today. Sitting in wheelchair offers no new complaints General: Denies: ROS Unobtainable, Chills, Night Sweats, Fatigue, Malaise, Normal Appetite, Other Symptoms Constitutional: Denies: Chills, Fever, Malaise, Night Sweats, Weakness, Fatigue, Weight Loss, Lethargy, Other Eyes: Denies: Pain, Vision change, Conjunctivae inflammation, Eyelid inflammation, Redness, Other ENT: Denies: Head Aches, Ear Pain, Dysphagia, Sinus Congestion, Post Nasal Drip, Sore Throat, Epistaxis, Other Symptoms Skin: Denies: Rash, Lesions, Jaundice, Bruising, Itching, Dry, Breakdown, Nail Changes, Other Pulmonary: Denies: Dyspnea, Cough, Pleuritic Chest Pain, Other Symptoms Cardiovascular: Denies: Chest Pain, Palpitations, Orthopnea, Paroxysmal Noc. Dyspnea, Edema, Lt Headedness, Other Symptoms Gastrointestinal: Denies: Nausea, Vomiting, Abdominal Pain, Diarrhea, Constipation, Melena, Hematochezia, Other Symptoms Genitourinary: Denies: Dysuria, Frequency, Incontinence, Hematuria, Retention, Other Symptoms Neurological: Denies: Weakness, Numbness, Incoordination, Change in speech, Confusion, Seizures, Other Symptoms Psych: Denies: Mood Normal, Anxiety, Depression, Memory Issues, Thoughts of Self Harm, Anger, Thoughts of Harming Other, Other Psych Objective Physical Examination General Exam: Positive: Alert Eye Exam: Positive: PERRLA, Conjunctiva & lids normal ENT Exam: Positive: Atraumatic Neck Exam: Positive: Supple Chest Exam: Positive: Clear to auscultation Heart Exam: Positive: Rate Normal, Normal S1, Normal S2 Abdomen Exam: Positive: Normal bowel sounds, Soft Extremity Exam: Positive: Normal pulses Neuro Exam: Positive: Normal Speech, Strength at 5/5 X4 ext Assessment /Plan Problems (1) Acute kidney injury Status: Acute (2) HTN (hypertension) Status: Chronic (3) Hypoxia Status: Acute (4) ABELARDO (obstructive sleep apnea) Status: Chronic (5) CKD (chronic kidney disease) Status: Chronic (6) Chronic back pain Status: Chronic (7) Acute diastolic (congestive) heart failure Status: Acute Plan/VTE VTE Prophylaxis Ordered?: Yes Plan 1. Hypercapnic respiratory failure secondary to Decompensated congestive heart failure with preserved ejection fraction: Likely secondary to the stage IV's EKG progressing to end-stage renal disease. This is his third hospitalization this month his fistula does not appear mature to me will defer to nephrology. Patient was seen by Dr. Carrasco from nephrology and hemodialysis has been s tarted. Patient is scheduled to receive hemodialysis today as well. Pts respiratory failure is likely multifactorial in nature underlying obstructive sleep apnea with elevated pulmonary pressures for which he is noncompliant as well as anxiety for which he may have been sedated with narcotics and benzodiazepines. Should respiratory status is stable at this time and is much improved since his dialysis is started. Patient has a temporary tunneled dialysis catheter placed in his AV fistula is not mature yet, further, as per nephrology's recommendations 2.Acute on chronic kidney injury: Possibly cardiorenal syndrome will attempt IV diuresis and monitor his electrolytes and renal function closely likely require HD sooner rather than later 3. Obstructive sleep apnea: Noncompliant with CPAP likely triggering factor to his worsened symptoms acutely while sleeping tonight. I did discuss this at length with him he is aware the risk of dying in his sleep suddenly but is too claustrophobic even think of attempting to wear it 4. Hypertension: Continue with Coreg and aggressive diuresis, continue with spironolactone carvedilol metolazone 5. Anemia of end-stage renal disease stable continue to monitor 6. Diabetes: Sliding scale and hypoglycemic protocol 7. Coronary artery disease: Does not appear to be acutely symptomatic monitor on telemetry he recently had an echocardiogram will trend his cardiac enzymes. Continue with statin beta faisal and Plavix 8. Chronic pain: Continue with baclofen morphine with holding parameters for sedation 9. Anxiety: Continue with alprazolam as well as hydroxyzine when necessary but hold for sedation disease medication may be contributing to his hypercapnia 10. Seasonal allergies: Continue with cetirizine 11. Gout continue with caloric 12. Mood disorder: Continue with paroxetine 13 chronic steroid use: He is on prednisone 7 mg daily does not appear to be adrenally insufficient at this time continue to monitor continue with his home steroid dosing 14. COPD: He is on steroids at baseline we'll provide with nebulizers and hold his home inhalers VS, I&O, 24H, Fishbone Vital Signs/I&O Vital Signs Date Time Temp Pulse Resp B/P (MAP) Pulse Ox O2 Delivery O2 Flow Rate FiO2 04/26/19 08:00 97.1 87 16 162/80 (107) 98 2.0 04/25/19 06:00 Nasal Cannula I&O- Last 24 Hours up to 6 AM 04/26/19 06:00 Intake Total 700 ml Output Total 2060 ml Balance -1360 ml Laboratory Data 24H LABS Laboratory Tests 2 04/25/19 11:18: Bedside Glucose (Misc Panel) 384H 04/25/19 12:13: Troponin I < 0.02# 04/25/19 16:18: Bedside Glucose (Misc Panel) 168H 04/25/19 16:27: Troponin I 0.08# 04/25/19 20:12: Bedside Glucose (Misc Panel) 312H 04/25/19 23:04: Anion Gap 10, Glomerular Filtration Rate 21.7L, Blood Urea Nitrogen 108H, Creatinine 3.02H, Sodium Level 134L, Potassium Level 4.3, Chloride Level 93L, Carbon Dioxide Level 31, Calcium Level 8.9, Magnesium Level 2.1 04/26/19 05:42: Anion Gap 9, Glomerular Filtration Rate 20.2L, Blood Urea Nitrogen 111H, Creatinine 3.22H, Sodium Level 134L, Potassium Level 4.2, Chloride Level 94L, Carbon Dioxide Level 31, Calcium Level 8.6L, Nucleated Red Blood Cells % (auto) 0.0, Parathyroid Hormone (Intact) 112.0H CBC/BMP Laboratory Tests 04/25/19 23:04 Calcium Level 8.9 04/26/19 05:42 Calcium Level 8.6 L, Red Blood Count 3.26 L, Mean Corpuscular Volume 92.0, Mean Corpuscular Hemoglobin 30.4, Mean Corpuscular Hemoglobin Concent 33.0, Red Cell Distribution Width 14.0 PALAK LOVE MD Apr 26, 2019 10:32
[2019-04-26 10:39] LABS: HEPATITIS B CORE ANTIBODY IGM NEGATIVE (NEGATIVE); HEPATITIS B SURFACE ANTIBODY NEGATIVE (POSITIVE); HEPATITIS B SURFACE ANTIGEN NEGATIVE (NEGATIVE); HEPATITIS C VIRUS ABY INDEX 0.1 INDEX (<0.8)
[2019-04-26 12:30] VITALS: BP 170/82
[2019-04-26] MEDS ORDERED: HEPARIN 1,000 UNITS/ML 10ML VIAL (FOR RADIOLOGY& DIALYSIS ONLY) XX ONE (12:30)
[2019-04-26] MEDS ORDERED: HEPARIN 1,000 UNITS/ML 10ML VIAL (FOR RADIOLOGY& DIALYSIS ONLY) IV ONE (12:30)
[2019-04-26] MEDS: CLOPIDOGREL 75 MG TAB PO SCH (12:47)
[2019-04-26] MEDS: MULTIVITAMINS/MINERALS THERAP 1 TAB PO SCH (12:47)
[2019-04-26] MEDS: CARVedilol 6.25 MG TAB PO SCH ×2 (12:48→20:45)
[2019-04-26] MEDS: HEPARIN SOD (PORCINE) 5000 UNITS/ML VIAL SC SCH ×2 (12:48→20:46)
[2019-04-26] MEDS: TORSEMIDE 100 MG TAB PO SCH (12:49)
[2019-04-26] MEDS: predniSONE 1 MG TAB PO SCH (12:49)
[2019-04-26] MEDS: FAMOTIDINE 20 MG TAB PO SCH (15:41)
[2019-04-26 16:00] VITALS: BP 158/70
[2019-04-26] MEDS: SPIRONOLACTONE 25 MG TAB PO SCH (17:54)
[2019-04-26 20:00] VITALS: BP 130/70
[2019-04-26] MEDS: FEBUXOSTAT 40 MG TABLET (ULORIC) PO SCH (20:44)
[2019-04-26] MEDS: CETIRIZINE (ZyrTEC) 10 MG TAB PO SCH (20:45)
[2019-04-26] MEDS: PARoxetine 20 MG TAB PO SCH (20:45)
[2019-04-26] MEDS: ATORVASTATIN 20 MG TAB PO SCH (20:45)
[2019-04-26] MEDS ORDERED: DARBEPOETIN 100 MCG/0.5 ML *DIALYSIS* SYRINGE (J0882) IV SCH (21:15)
[2019-04-27] VITALS (7 sets, daily range): BP systolic 106–160; BP diastolic 51–80
[2019-04-27] MEDS: IPRATROPIUM 0.5MG/ALBUTEROL 2.5MG INH SOL UD 3ML (DUONEB)(J7620) NEB SCH ×4 (01:29→19:41)
[2019-04-27 05:58] LABS: HEMATOCRIT 33.1 % (42.0-52.0); HEMOGLOBIN 10.7 g/dl (13.5-17.5); MEAN CORPUSCULAR HEMOGLOBIN 31.3 pg (27.0-33.0); MEAN CORPUSCULAR HGB CONC 32.3 g/dl (32.0-36.5); MEAN CORPUSCULAR VOLUME 96.8 fl (80.0-96.0); PLATELET COUNT, AUTOMATED 192 10^3/uL (150-450); RED BLOOD COUNT 3.42 10^6/uL (4.30-6.10); WHITE BLOOD COUNT 13.7 10^3/uL (4.0-10.0)
[2019-04-27 06:40] LABS: CALCIUM LEVEL 8.6 MG/DL (8.8-10.2); CREATININE FOR GFR 2.76 MG/DL (0.70-1.30); GLOMERULAR FILTRATION RATE 24.1 (>42); POTASSIUM SERUM 5.5 MEQ/L (3.5-5.1)
--- NOTE | 2019-04-27 06:44 | IPN ---
DATE OF VISIT: 04/26/2019 SUBJECTIVE: The patient was seen and the bedside today morning during hemodialysis procedure. He is tolerating the hemodialysis procedure well. He got the tunneled hemodialysis catheter placed yesterday. He was dialyzed for the first time ever yesterday for two hours. Today he is getting his second session of dialysis. He reports that he is feeling much better today as compared with yesterday after he got his dialysis. OBJECTIVE: Vital signs: Temperature is 96.9 degrees Fahrenheit, blood pressure 158/70, pulse is 72, respiratory of 20, saturating 97% on nasal cannula at 2 liters. Intake and output urine output recorded is 950 mL, ultrafiltration with hemodialysis was 1 liter yesterday. Weight in the bed scale is 104.6 kg. PHYSICAL EXAMINATION: General: The patient is awake, alert, oriented times three, laying in bed getting hemodialysis done. Head and neck exam: Extraocular muscles intact. Pupils equally round and reactive to light. Mucous membranes are moist. Neck: Neck is supple. He has a right internal jugular (IJ) tunneled hemodialysis catheter. Cardiovascular: S1, S2, regular rate with 2+ edema of the bilateral lower extremities. Respiratory: Mildly decreased breath sounds at the bases with mild expiratory crackles. Abdomen: Soft. Positive bowel sounds. Nontender. No organomegaly. Musculoskeletal: No clubbing or cyanosis. Pulses are 2+. Central Nervous System (HIGH SCHOOL COACH): No focal deficit, power is 5/5 in all extremities. LABORATORY REVIEW: CBC showed a WBC 11.8, hemoglobin 9.9, platelets of 190. Basic Metabolic Profile (BMP) showed sodium 134, potassium 4.2, chloride 94, bicarb 31, BUN 111, creatinine is 3.2, calcium is 8.6. PTH 112. CURRENT INPATIENT MEDICATIONS: The patient's medications were all reviewed by me. There is no change in the medications today as compared with yesterday. ASSESSMENT/PLAN: 1. End-stage renal disease. The patient has progressive end-stage renal disease. He got a tunneled dialysis catheter yesterday, he was dialyzed yesterday. He will be dialyzed again today for three hours. Ultrafiltration goal will be at least 1.5 to 2 liters as tolerated by his blood pressure. 2. Acute decompensated diastolic congestive heart failure. The patient continues to be on oral diuretics. 1 liter of fluid was removed yesterday, I will remove 2 more liters of fluid today. His shortness of breath is improving. 3. Anemia and end-stage renal disease. I am going to start the patient on Aranesp 100 mcg intravenously (IV) with hemodialysis. 4. Hypertension with end-stage renal disease. Continue Coreg, further optimization of volume status is going to improve his blood pressure. 5. Chronic kidney disease, mineral bone disease. The patient is not on any phosphorus binders. Phosphorus is expected to improve with hemodialysis. PTH level is 112. No need for calcitriol. 6. Diabetes mellitus type 2. Continue insulin sliding scale.
[2019-04-27] MEDS: HumaLOG INSULIN (NovoLOG) PER UNIT SC SCH ×5 (07:57→21:00)
[2019-04-27] MEDS: SLF 3 ML SYR IV SCH ×3 (07:57→22:05)
[2019-04-27] MEDS: MORPHINE 30 MG TAB **MSIR PO SCH ×3 (07:58→20:57)
[2019-04-27] MEDS: TORSEMIDE 100 MG TAB PO SCH (07:59)
[2019-04-27] MEDS: CARVedilol 6.25 MG TAB PO SCH ×2 (07:59→20:57)
[2019-04-27] MEDS: predniSONE 1 MG TAB PO SCH (07:59)
[2019-04-27] MEDS: CLOPIDOGREL 75 MG TAB PO SCH (08:00)
[2019-04-27] MEDS: MULTIVITAMINS/MINERALS THERAP 1 TAB PO SCH (08:00)
[2019-04-27] MEDS: HEPARIN SOD (PORCINE) 5000 UNITS/ML VIAL SC SCH ×2 (08:00→20:58)
--- NOTE | 2019-04-27 08:58 | ROOPDOC ---
[facility] Report Of Operation Report of Operation DATE OF PROCEDURE: 04/25/2019 PREPROCEDURE DIAGNOSES: End-stage renal disease requiring access for renal replacement therapy. POSTPROCEDURE DIAGNOSES: End-stage renal disease requiring access for renal replacement therapy. PROCEDURE: Ultrasound guided right internal jugular vein cannulation. Fluoroscopic guided right internal jugular vein 19 cm tip to cuff tunneled central venous catheter insertion. ATTENDING SURGEON: DR. Rosalie Copeland M.D. ADULT BASIC STUDIES TEACHER: None INDICATION:Patient is an 73-year-old male with chronic renal insufficiency who has now progressed to the point of having renal failure who requires access for renal replacement therapy. Patient will undergo ultrasound and fluoroscopic guided placement of a right internal jugular vein tunneled central venous catheter. The procedure was described and explained to the patient in detail including drawing of pictures demonstrating the procedure and anatomy. Risks, benefits and alternative treatment options were discussed with the patient. Alternative treatment options included but were not limited to no intervention. Benefits included but were not limited to access for hemodialysis until permanent access for renal replacement therapy is created. Risks included, but were not limited to infection, bleeding, pneumothorax, hemothorax, cannulation site deep venous thrombosis, possible need for open surgical intervention, allergic reaction or complication from prepping and draping materials, possible need for transfusion of blood products, anesthetic complications, cerebrovascular accident, myocardial infarction, pulmonary embolus, deep venous thrombosis, loss of limb, loss of life, poor satisfaction and poor outcome. Risks of not performing the procedure included but were not limited to inability to obtain renal replacement therapy via hemodialysis and . The patient's questions were answered. The patient voices understanding of these risks, benefits and alternative treatment options. The patient voices acceptance of the risks associated with the procedure and agrees to proceed with an ultrasound and fluoroscopic guided right internal jugular vein tunneled central venous catheter insertion. There were no promises or guarantees made to the patient regarding the outcome or results of the procedure. ANESTHESIA: Local with 20 mL of 2% lidocaine mixed with 0.5% Marcaine. EBL: 10 ml. IVF: 150 ml. FLUORO TIME: 0.1 minutes. CONTRAST: None. COMPLICATIONS: None. DRAINS: None. SPECIMENS: None. IMPLANTS: Right internal jugular vein tunneled central venous catheter with use of a 19 cm tip to cuff [place] hemodialysis catheter. DESCRIPTION OF PROCEDURE: Patient was taken to the angiography suite, placed supine on the angiography room table and then prepped and draped in a standard surgical fashion. A timeout was conducted by myself and the team members in the room confirming the correct patient, procedure and laterality. Ultrasound guidance was used to cannulate the right internal jugular vein using a micropuncture needle after anesthetizing the overlying skin and subcutaneous tissue with 2% lidocaine mixed with 0.5% Marcaine. The cannulation of the right internal jugular vein was performed with real-time concurrent visualization of the entry of the micropuncture needle into the right internal jugular vein with a hardcopy image preserved. The ultrasound showed the right internal jugular vein to be widely patent, easily compressible and free of thrombus. The micropuncture wire was advanced through the micropuncture needle which was upsized to a micropuncture sheath. An Amplatz wire was advanced through the micropuncture sheath which was then used to sequentially dilate the right internal jugular vein under fluoroscopic guidance. An introducer sheath was then placed over the Amplatz wire and the wire was removed. The catheter was tunneled through a puncture wound in the right chest after anesthetizing the overlying skin and subcutaneous tissue with 2% lidocaine and brought out through a puncture wound at the right internal jugular vein entry site. The catheter was then advanced through the introducer sheath which had been positioned under fluoroscopic guidance. The catheter was positioned under fluoroscopic guidance with the tip in the superior vena cava right atrial junction. Both ports of the catheter were aspirated, noted to aspirate easily and then flushed with heparinized saline. The catheter was secured to the right anterior chest wall using #2-0 Prolene suture after anesthetizing the overlying skin and subcutaneous tissue with 2% lidocaine mixed with 0.5% Marcaine. The puncture wound in the right neck was closed using #4-0 Monocryl in inverted interrupted fashion. Dressings were applied. The patient tolerated the procedure well. All instrument, sponge and needle counts were correct at the end of the case. There were no complications. Dr. Copeland was present for and directed the entire case. Patient was transferred to the recovery area and subsequently to the PCU in stable condition. The tunneled central venous catheter is stable for use for hemodialysis access. RADIOLOGIC SUPERVISION AND INTERPRETATION: The initial ultrasound showed the right internal jugular vein to be easily compressible, widely patent and free of thrombus. Ultrasound was used to guide cannulation of the right internal jugular vein with real-time concurrent visualization of the entry of the needle into the right internal jugular vein with a hardcopy image preserved. Fluoroscopic guidance was then used to sequentially dilate the right internal jugular vein, place and introducer sheath and position the catheter with the tip in the superior vena cava/right atrial junction. Final fluoroscopic image showed the catheter to be in good position and good alignment with no pneumo- or hemothorax noted with the tip in the superior vena cava/right atrial junction. The tunneled central venous catheter is stable for use for hemodialysis access. Naeem Copeland MD Apr 27, 2019 08:58
--- NOTE | 2019-04-27 11:08 | IPNPDOC ---
Text Note Date of Service The patient was seen on 04/27/19. NOTE Patient was seen and examined in the dialysis this morning. No acute complaints. PHYSICAL EXAMINATION: General: The patient is awake, alert, oriented times three, laying in bed getting hemodialysis done. Head and neck exam: Extraocular muscles intact. Pupils equally round and reactive to light. Mucous membranes are moist. Neck: Neck is supple. He has a right internal jugular (IJ) tunneled hemodialysis catheter. Cardiovascular: S1, S2, regular rate with 2+ edema of the bilateral lower extremities. Respiratory: Mildly decreased breath sounds at the bases with mild expiratory crackles. Abdomen: Soft. Positive bowel sounds. Nontender. No organomegaly. Musculo skeletal: No clubbing or cyanosis. Pulses are 2+. Central Nervous System (WEAPONS DESIGNER): No focal deficit, power is 5/5 in all extremities. Laboratory Tests 04/27/19 05:45 Red Blood Count 3.42 L, Mean Corpuscular Volume 96.8 H, Mean Corpuscular Hemoglobin 31.3, Mean Corpuscular Hemoglobin Concent 32.3, Red Cell Distribution Width 14.3, Calcium Level 8.6 L Vital Sign - Last 24 Hours 04/26/19 04/26/19 04/26/19 04/26/19 12:30 12:45 12:48 15:42 Temp 96.7 Pulse 80 80 Resp 16 20 B/P (MAP) 170/82 (111) 170/82 Pulse Ox 92 O2 Flow Rate 2.0 2.0 04/26/19 04/26/19 04/26/19 04/26/19 16:00 16:00 20:00 20:00 Temp 96.9 97.1 Pulse 72 78 Resp 20 20 B/P (MAP) 158/70 (99) 130/70 (90) Pulse Ox 97 96 O2 Flow Rate 2.0 2.0 1.0 1.0 04/26/19 04/26/19 04/27/19 04/27/19 20:44 20:45 00:00 00:00 Temp 97.3 Pulse 78 80 Resp 18 18 B/P (MAP) 130/70 160/80 (106) Pulse Ox 99 O2 Flow Rate 1.0 1.0 04/27/19 04/27/19 04/27/19 04/27/19 04:00 04:00 07:50 07:58 Temp 97.0 97.0 97.0 Pulse 81 83 83 Resp 18 20 20 B/P (MAP) 140/80 (100) 106/51 (69) 106/51 Pulse Ox 97 97 97 O2 Flow Rate 1.0 1.0 1.0 1.0 04/27/19 08:28 Temp 97.0 Pulse 83 Resp 20 B/P (MAP) 106/51 Pulse Ox 97 O2 Flow Rate 1.0 ASSESSMENT/PLAN: 1. End-stage renal disease. The patient has progressive end-stage renal disease. He got a tunneled dialysis catheter , dialysis instructions as per nephrology. Phosphorus lowering medications, EPO, and vitamin D as per nephrology. paper control clerk and be considered for outpatient dialysis set up. 2. Acute decompensated diastolic congestive heart failure. The patient continues to be on oral diuretics. Continue dialysis along with that. Renal diet and 1.5 liter fluid restrictions. 3. Anemia and end-stage renal disease. As per nephrology 4. Hypertension with end-stage renal disease. Continue Coreg, further optimization of volume status is going to improve his blood pressure. 5. Diabetes mellitus type 2. Continue insulin sliding scale. DVT and GI prophylaxis Disposition once the outpatient dialysis center. The patient agreeable to discharge. VS,Fishbone, I+O VS, Fishbone, I+O Laboratory Tests 04/27/19 05:45 Red Blood Count 3.42 L, Mean Corpuscular Volume 96.8 H, Mean Corpuscular Hemoglobin 31.3, Mean Corpuscular Hemoglobin Concent 32.3, Red Cell Distribution Width 14.3, Calcium Level 8.6 L Vital Signs Date Time Temp Pulse Resp B/P (MAP) Pulse Ox O2 Delivery O2 Flow Rate FiO2 04/27/19 08:28 97.0 83 20 106/51 97 1.0 04/25/19 06:00 Nasal Cannula I&O- Last 24 Hours up to 6 AM 04/27/19 06:00 Intake Total 760 ml Output Total 2750 ml Balance -1990 ml YENNIFER OCHOA MD Apr 27, 2019 11:08
[2019-04-27] MEDS ORDERED: HEPARIN 1,000 UNITS/ML 10ML VIAL (FOR RADIOLOGY& DIALYSIS ONLY) IV ONE (13:45)
[2019-04-27] MEDS ORDERED: HEPARIN 1,000 UNITS/ML 10ML VIAL (FOR RADIOLOGY& DIALYSIS ONLY) XX ONE (13:45)
[2019-04-27] MEDS: FAMOTIDINE 20 MG TAB PO SCH (13:46)
[2019-04-27] MEDS: ALPRAZolam 0.25 MG TAB PO PRN (15:44)
[2019-04-27] MEDS: FEBUXOSTAT 40 MG TABLET (ULORIC) PO SCH (20:56)
[2019-04-27] MEDS: CETIRIZINE (ZyrTEC) 10 MG TAB PO SCH (20:57)
[2019-04-27] MEDS: ATORVASTATIN 20 MG TAB PO SCH (20:58)
[2019-04-27] MEDS: PARoxetine 20 MG TAB PO SCH (20:58)
[2019-04-28] MEDS: IPRATROPIUM 0.5MG/ALBUTEROL 2.5MG INH SOL UD 3ML (DUONEB)(J7620) NEB SCH ×4 (02:00→20:45)
[2019-04-28 04:45] VITALS: BP 113/59
[2019-04-28] MEDS: SLF 3 ML SYR IV SCH ×3 (06:07→20:37)
[2019-04-28 06:14] LABS: HEMATOCRIT 35.6 % (42.0-52.0); HEMOGLOBIN 11.7 g/dl (13.5-17.5); MEAN CORPUSCULAR HEMOGLOBIN 31.4 pg (27.0-33.0); MEAN CORPUSCULAR HGB CONC 32.9 g/dl (32.0-36.5); MEAN CORPUSCULAR VOLUME 95.4 fl (80.0-96.0); PLATELET COUNT, AUTOMATED 208 10^3/uL (150-450); RED BLOOD COUNT 3.73 10^6/uL (4.30-6.10); WHITE BLOOD COUNT 15.9 10^3/uL (4.0-10.0)
[2019-04-28 06:46] LABS: ALBUMIN 3.7 GM/DL (3.2-5.2); CALCIUM LEVEL 8.2 MG/DL (8.8-10.2); CREATININE FOR GFR 2.63 MG/DL (0.70-1.30); GLOMERULAR FILTRATION RATE 25.5 (>42); PHOSPHORUS LEVEL 2.9 MG/DL (2.5-4.9)
--- NOTE | 2019-04-28 06:55 | IPN ---
DATE OF SERVICE: 04/27/2019 SUBJECTIVE: The patient was seen and examined at the bedside today morning. He is afebrile and hemodynamically stable. He was examined during dialysis. He is tolerating the hemodialysis procedure well. He reports that he is feeling much better after two sessions of hemodialysis. Today is the third session. His shortness of breath is also improving. OBJECTIVE: Vital Signs: Temperature is 97.1 degrees Fahrenheit, blood pressure 126/58, pulse is 88, respiratory rate of 20, saturating 96% on room air. Intake and Output: Urine output recorded as 500 mL so far today since overnight. Ultrafiltration with hemodialysis was 2 liters yesterday. Weight in the bed scale is 103.6 kg. PHYSICAL EXAMINATION: General: The patient is awake, alert, oriented x3, laying in bed getting hemodialysis done, in no apparent distress. Head and Neck Exam: Extraocular muscles intact. Pupils equally round and reactive to light. Mucous membranes are moist. Neck is supple. He has a right IJ tunneled hemodialysis catheter. Cardiovascular: S1 and S2, regular rate. 1+ edema of the bilateral lower extremities. Respiratory: Chest is clear to auscultation bilaterally. Bilateral equal air entry. No rales or rhonchi. Abdomen: Soft. Positive bowel sounds. Nontender. No organomegaly. Musculoskeletal: No clubbing or cyanosis. Pulses are 2+. Central Nervous System (STATE TROOPER): No focal deficit. Power is 5/5 in all extremities. LAB REVIEW: CBC showed a WBC of 13.7, hemoglobin 10.7, platelets of 192. BMP showed sodium 132, potassium 5.5, chloride 97, bicarb 23, BUN 65, creatinine is 2.7. CURRENT INPATIENT MEDICATIONS: The patient's medications were all reviewed by me. There is no significant change in the medications today as compared with yesterday. I have stopped his spironolactone. ASSESSMENT/PLAN: 1. End-stage renal disease. The patient is hemodialysis dependent Today is the third session of dialysis. I will try to remove at least 1 liter of fluid. The patient will need to continue hemodialysis as outpatient. 2. Acute decompensated diastolic congestive heart failure. The patient is getting [id number] hemodialysis and fluid removal. He is also on oral diuretics. Volume status is getting better. 3. Anemia in end-stage renal disease. The patient has been started on IV Aranesp. Hemoglobin level is within the acceptable range. 4. Hyperkalemia. I have stopped spironolactone, potassium level is expected to improve after dialysis with 2K bath. 5. Hyponatremia. The patient has hypervolemic hyponatremia. Sodium is expected to improve with fluid removal. 6. Hypertension with end-stage renal disease. Blood pressure is significantly better with optimization of fluid status. Continue current dose of Coreg 6.25 mg by mouth twice a day. 7. 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 Continue current dose of Uloric 80 mg daily.
[2019-04-28] MEDS: HumaLOG INSULIN (NovoLOG) PER UNIT SC SCH ×4 (07:57→20:25)
[2019-04-28] MEDS: CARVedilol 6.25 MG TAB PO SCH ×2 (07:58→20:36)
[2019-04-28] MEDS: TORSEMIDE 100 MG TAB PO SCH (07:58)
[2019-04-28] MEDS: MULTIVITAMINS/MINERALS THERAP 1 TAB PO SCH (07:58)
[2019-04-28 07:59] VITALS: BP 116/80
[2019-04-28] MEDS: HEPARIN SOD (PORCINE) 5000 UNITS/ML VIAL SC SCH ×2 (07:59→20:36)
[2019-04-28] MEDS: CLOPIDOGREL 75 MG TAB PO SCH (07:59)
[2019-04-28] MEDS: predniSONE 1 MG TAB PO SCH (07:59)
[2019-04-28] MEDS: MORPHINE 30 MG TAB **MSIR PO SCH ×3 (07:59→20:37)
[2019-04-28] MEDS: ALPRAZolam 0.25 MG TAB PO PRN (10:13)
--- NOTE | 2019-04-28 10:50 | IPNPDOC ---
Text Note Date of Service The patient was seen on 04/28/19. NOTE Patient was seen and examined in the dialysis this morning. No acute complaints. PHYSICAL EXAMINATION: General: The patient is awake, alert, oriented times three, laying in bed getting hemodialysis done. Head and neck exam: Extraocular muscles intact. Pupils equally round and reactive to light. Mucous membranes are moist. Neck: Neck is supple. He has a right internal jugular (IJ) tunneled hemodialysis catheter. Cardiovascular: S1, S2, regular rate with 2+ edema of the bilateral lower extremities. Respiratory: Mildly decreased breath sounds at the bases with mild expiratory crackles. Abdomen: Soft. Positive bowel sounds. Nontender. No organomegaly. Musculo skeletal: No clubbing or cyanosis. Pulses are 2+. Central Nervous System (BILL BOARD POSTER): No focal deficit, power is 5/5 in all extremities. ASSESSMENT/PLAN: 1. End-stage renal disease. The patient has progressive end-stage renal disease. He got a tunneled dialysis catheter , dialysis instructions as per nephrology. Phosphorus lowering medications, EPO, and vitamin D as per nephrology. act english tutor and be considered for outpatient dialysis set up. 2. Acute decompensated diastolic congestive heart failure. The patient continues to be on oral diuretics. Continue dialysis along with that. Renal diet and 1.5 liter fluid restrictions. 3. Anemia and end-stage renal disease. As per nephrology 4. Hypertension with end-stage renal disease. Continue Coreg, further optimization of volume status is going to improve his blood pressure. 5. Diabetes mellitus type 2. Continue insulin sliding scale. DVT and GI prophylaxis Disposition once the outpatient dialysis center. If the patient is still doing fine, is not in volume overload and no major other related issues in the morning tomorrow. The patient will be discharged with outpatient dialysis. VS,Fishbone, I+O VS, Fishbone, I+O Laboratory Tests 04/28/19 05:57 Red Blood Count 3.73 L, Mean Corpuscular Volume 95.4, Mean Corpuscular Hemoglobin 31.4, Mean Corpuscular Hemoglobin Concent 32.9, Red Cell Distribution Width 14.3, Anion Gap 10 Vital Signs Date Time Temp Pulse Resp B/P (MAP) Pulse Ox O2 Delivery O2 Flow Rate FiO2 04/28/19 08:29 20 04/28/19 07:59 96.6 69 116/80 (92) 98 04/27/19 16:14 1.0 04/25/19 06:00 Nasal Cannula l I&O- Last 24 Hours up to 6 AM 04/28/19 05:59 Intake Total 360 ml Output Total 1725 ml Balance -1365 ml YENNIFER OCHOA MD Apr 28, 2019 10:50
[2019-04-28 11:58] VITALS: BP 117/56
[2019-04-28] MEDS: FAMOTIDINE 20 MG TAB PO SCH (17:17)
[2019-04-28 20:00] VITALS: BP 139/71
[2019-04-28] MEDS: CETIRIZINE (ZyrTEC) 10 MG TAB PO SCH (20:35)
[2019-04-28] MEDS: PARoxetine 20 MG TAB PO SCH (20:35)
[2019-04-28] MEDS: FEBUXOSTAT 40 MG TABLET (ULORIC) PO SCH (20:36)
[2019-04-28] MEDS: ATORVASTATIN 20 MG TAB PO SCH (20:36)
[2019-04-28 23:59] VITALS: BP 142/62
[2019-04-29] MEDS: IPRATROPIUM 0.5MG/ALBUTEROL 2.5MG INH SOL UD 3ML (DUONEB)(J7620) NEB SCH ×2 (02:45→07:27)
[2019-04-29 04:00] VITALS: BP 104/54
[2019-04-29 05:11] LABS: HEMATOCRIT 34.1 % (42.0-52.0); MEAN CORPUSCULAR HEMOGLOBIN 30.1 pg (27.0-33.0); MEAN CORPUSCULAR HGB CONC 32.3 g/dl (32.0-36.5); MEAN CORPUSCULAR VOLUME 93.2 fl (80.0-96.0); PLATELET COUNT, AUTOMATED 161 10^3/uL (150-450); RED BLOOD COUNT 3.66 10^6/uL (4.30-6.10); WHITE BLOOD COUNT 14.6 10^3/uL (4.0-10.0)
[2019-04-29] MEDS: SLF 3 ML SYR IV SCH (05:40)
[2019-04-29 06:00] LABS: CALCIUM LEVEL 8.5 MG/DL (8.8-10.2); CREATININE FOR GFR 2.54 MG/DL (0.70-1.30); GLOMERULAR FILTRATION RATE 26.5 (>42); POTASSIUM SERUM 3.7 MEQ/L (3.5-5.1)
[2019-04-29 08:00] VITALS: BP 121/59
[2019-04-29] MEDS: predniSONE 1 MG TAB PO SCH (08:42)
[2019-04-29 08:43] VITALS: BP 121/59
[2019-04-29] MEDS: CARVedilol 6.25 MG TAB PO SCH (08:43)
[2019-04-29] MEDS: CLOPIDOGREL 75 MG TAB PO SCH (08:43)
[2019-04-29] MEDS: TORSEMIDE 100 MG TAB PO SCH (08:43)
[2019-04-29] MEDS: HEPARIN SOD (PORCINE) 5000 UNITS/ML VIAL SC SCH (08:44)
[2019-04-29] MEDS: MORPHINE 30 MG TAB **MSIR PO SCH (08:44)
[2019-04-29] MEDS: MULTIVITAMINS/MINERALS THERAP 1 TAB PO SCH (08:44)
[2019-04-29] MEDS: HumaLOG INSULIN (NovoLOG) PER UNIT SC SCH ×2 (08:45→13:17)
--- NOTE | 2019-04-29 09:40 | IPN ---
DATE OF SERVICE: 04/28/2019 SUBJECTIVE: The patient was seen and examined at the bedside today morning. He is afebrile, hemodynamically stable. He denies any shortness of breath. His leg edema is significantly better. She was dialyzed [id number] for last 2 days. He tolerated the hemodialysis procedure well. I talked with the dialysis center. The patient got a Friday, Friday, Friday spot as outpatient. He has a chair time on Friday at 4:30 p.m. According to that schedule today is patient's day of dialysis. OBJECTIVE: Vital signs: Temperature is 96.2 degrees Fahrenheit, blood pressure 117/56, pulse is 87, respiratory rate of 20, saturating 94% on room air. Intake and output urine output recorded as 150 mL ultrafiltration with hemodialysis was 1 liter, weight in the bed scale is 103.5 mL. PHYSICAL EXAMINATION: General: The patient is awake, alert, oriented times three, laying in bed in no apparent distress. Head and neck exam: Extraocular muscles intact. Pupils equally round and reactive to light. Mucous membranes are moist. Neck is supple. There is no jugular venous distention (JVD). Cardiovascular: S1, S2, regular rate. 1+ edema of the bilateral lower extremities. Respiratory: Chest is clear to auscultation bilaterally. Bilateral equal air entry. No rales or rhonchi. Abdomen: Soft, obese, positive bowel sounds. Nontender. Musculoskeletal: No clubbing or cyanosis. Pulses are 2+. PARLIAMENTARY COUNSEL: No focal deficit. Power is 5/5 in all extremities. AV axis - the patient has a right IJ tunneled hemodialysis catheter. She has a left upper arm AV fistula as well with thrill and bruit but is not ready for use. LAB REVIEW: CBC showed WBC 15.9, hemoglobin 11.7, platelets are 208. BMP showed sodium 135, potassium 4, chloride 99, bicarb 26, BUN 40, creatinine is 2.6, calcium 8.2, phosphorus 2.9. CURRENT INPATIENT MEDICATIONS: The patient's medications were all reviewed by me. There is no change in the medications today as compared with yesterday. ASSESSMENT AND PLAN: 1. End-stage renal disease on hemodialysis. The patient's outpatient dialysis schedule will be Friday, Friday, Friday. I am going to dialyze him again today to put him on his schedule and the rest of the dialysis will be managed as outpatient. 2. Acute decompensated diastolic congestive heart failure. The patient's volume status is significantly better. I would remove further 2 liters of fluid during dialysis today. Continue current dose of torsemide 100 mg by mouth daily. 3. Anemia in end-stage renal disease, hemoglobin has improved to 11.7. Rest of the anemia management will be done as outpatient. 4. Secondary hyperparathyroidism. PTH level is 112. No need of calcitriol at this time. DISPOSITION: The patient will be dialyzed today to put him on Friday, Friday, Friday schedule. He will be discharged tomorrow morning if he is cleared from the physical therapy.
--- NOTE | 2019-04-29 10:52 | DS.PDOC ---
Discharge Summary General Date of Admission Apr 25, 2019 at 06:16 Date of Discharge Today Discharge Summary CHIEF COMPLAINT: Patient presented to the hospital with shortness of breath. HISTORY OF PRESENT ILLNESS: Patient Maik Groves is a 73-year-old male with past medical history of chronic kidney disease stage IV, recently had left upper arm atrioventricular (AV) fistula placed; he is awaiting for the maturation of the AV fistula for the initiation of hemodialysis, chronic diastolic congestive heart failure with left ventricular (LV) ejection fraction of around 70%, diabetes mellitus type 2 and multiple other comorbidities, as mentioned below. He is well-known to nephrology service from multiple previous hospitalizations and from outpatient nephrology clinic visits as well. He has been having multiple episodes of shortness of breath and fluid overload and this is his fifth presentation to the hospital within one month. Patient came back again with sudden onset of shortness of breath, feeling of heavy breathing and it was accompanied anxiety as well. He was unable to sleep well at night. As reported by , patient has not slept well for the last many days. He was started on intravenous (IV) Lasix injections. Outpatient regimen of torsemide, spironolactone, and metolazone is still not helping and he reports a persistent lower extremity edema as well. Patient's creatinine on arrival was 4.3 with a BUN of 159. Nephrology was consulted And the patient got the rectum dialysis catheter was started on dialysis. Outpatient dialysis Has been set up for him and nephrology has cleared him for discharge. He continues to be On vitamin D, Sensipar. He will need to follow with nephrology for any other medication reconciliation regarding dialysis. Today, he is feeling better. No shortness of breath, no chest pain and wants to go home. His labs including potassium and Creatinine on looking good and he is optimized for discharge. I had a detailed discussion with him regarding the care of this tunnel catheter In front of the nurse and nursing have been instructed to give him catheter care instructions. He understands the importance of keeping the catheter clean PHYSICAL EXAMINATION: General: The patient is awake, alert, oriented x3, sitting up in the bed in no apparent distress. Head and Neck Exam: Extraocular muscles intact. Pupils equally round and reactive to light. Mucous membranes are moist. Neck is supple. There is no jugular venous distention (JVD). He has tolerated dialysis catheter on the right side Cardiovascular: S1 and S2, regular rate. Trace edema of the bilateral lower extremities. Respiratory: Mild inspiratory crackles at the right base, mildly decreased breath sounds at the left side. Abdomen: Soft. Positive bowel sounds. Nontender. No organomegaly. Genitourinary: Indwelling Dougherty catheter was noted. Musculoskeletal: Clubbing of the fingernails, no cyanosis was noted. Central Nervous System (BELT BUILDER HELPER): No focal deficit. Power is 5/5 in all extremities. Vital Signs Date Time Temp Pulse Resp B/P (MAP) Pulse Ox O2 Delivery O2 Flow Rate FiO2 04/29/19 08:44 20 04/29/19 08:43 92 121/59 04/29/19 08:00 98.1 92 20 121/59 (79) 95 04/29/19 04:00 97.0 90 20 104/54 (71) 95 04/28/19 23:59 96.7 83 20 142/62 (88) 99 04/28/19 21:32 18 04/28/19 20:37 18 04/28/19 20:36 92 139/71 04/28/19 20:00 97.3 92 20 139/71 (93) 100 04/28/19 17:17 20 04/28/19 11:58 96.2 87 20 117/56 (76) 94 Intake & Output 04/29/19 06:00 Intake Total 360 ml Output Total 2125 ml Balance -1765 ml Laboratory Tests 04/28/19 11:20: Bedside Glucose (Misc Panel) 153H 04/28/19 16:28: Bedside Glucose (Misc Panel) 139H 04/28/19 20:19: Bedside Glucose (Misc Panel) 156H 04/29/19 04:38: White Blood Count 14.6H, Red Blood Count 3.66L, Hemoglobin 11.0L, Hematocrit 34.1L, Mean Corpuscular Volume 93.2, Mean Corpuscular Hemoglobin 30.1, Mean Cor puscular Hemoglobin Concent 32.3, Red Cell Distribution Width 14.3, Platelet Count 161, Nucleated Red Blood Cells % (auto) 0.0, Blood Urea Nitrogen 29H, Creatinine 2.54H, Sodium Level 138, Potassium Level 3.7, Chloride Level 100, Carbon Dioxide Level 28, Calcium Level 8.5L, Anion Gap 10, Glomerular Filtration Rate 26.5L, Fasting Glucose 108H Current Medications Medications (Trade) Dose Ordered Sig/Frankie Route PRN Reason Start Time Stop Time Status Last Admin Dose Admin Albuterol/ Ipratropium (Duoneb (Ipr 0.5mg/Alb 2.5mg)) 3 ml RQ6H NEB 04/25/19 08:00 04/29/19 07:27 3 ML Alprazolam (Xanax) 0.25 mg TID PRN PO ANXIETY 04/25/19 06:15 04/28/19 10:13 0.25 MG Atorvastatin Calcium (Lipitor) 20 mg QHS PO 04/25/19 21:00 04/28/19 20:36 20 MG Baclofen (Lioresal) 10 mg BID PRN PO MUSCLE SPASMS 04/25/19 06:15 04/27/19 22:05 10 MG Carvedilol (COReg) 6.25 mg BID PO 04/25/19 09:00 04/29/19 08:43 6.25 MG Cetirizine HCl (ZyrTEC) 10 mg QHS PO 04/25/19 21:00 04/28/19 20:35 10 MG Clopidogrel Bisulfate (PLAVix) 75 mg DAILY PO 04/25/19 09:00 04/29/19 08:43 75 MG Famotidine (Pepcid) 20 mg DAILY@1400 PO 04/25/19 14:00 04/28/19 17:17 20 MG Febuxostat (Uloric) 80 mg QHS PO 04/25/19 21:00 04/28/19 20:36 80 MG Heparin Sodium (Porcine) (Heparin) 5,000 units Q12H SC 04/25/19 09:00 04/29/19 08:44 5,000 UNITS Hydroxyzine HCl (Atarax) 25 mg TID PRN PO ITCHING 04/25/19 06:15 04/28/19 00:20 25 MG Insulin Human Lispro (HumaLOG INSULIN) See Protocol Table QHS SC 04/25/19 21:00 04/25/19 21:49 4 UNITS Morphine Sulfate (Msir) 15 mg TID PO 04/25/19 09:00 04/29/19 08:44 15 MG Multivitamins (Theragram-M) 1 tab DAILY PO 04/25/19 09:00 04/29/19 08:44 1 TAB Paroxetine HCl (PAXil) 20 mg QHS PO 04/25/19 21:00 04/28/19 20:35 20 MG Prednisone (Deltasone) 7 mg DAILY PO 04/25/19 09:00 04/29/19 08:42 7 MG Sodium Chloride (Saline Lock Flush) 2 ml SLF IV 04/25/19 14:00 04/29/19 05:40 2 ML Torsemide (Demadex) 100 mg DAILY PO 04/25/19 09:00 04/29/19 08:43 100 MG Dictations. As per discharge reconciliation medication list Activity as tolerated Diet. 2 g sodium diet, renal diet, 1.5 L fluid restriction Follow-up appointments. PCP in 1 week, nephrology in 1 week. Condition on discharge. Patient is medically optimized for discharge Discharge disposition: Home Total time spent on this discharge including coordination of care, review of chart documentation and extubation contact is around 35 minutes Vital Signs/I&Os Vital Signs Date Time Temp Pulse Resp B/P (MAP) Pulse Ox O2 Delivery O2 Flow Rate FiO2 04/29/19 08:44 20 04/29/19 08:43 92 121/59 04/29/19 08:00 98.1 95 04/27/19 16:14 1.0 04/25/19 06:00 Nasal Cannula I&O- Last 24 Hours up to 6 AM 04/29/19 06:00 Intake Total 360 ml Output Total 2125 ml Balance -1765 ml Laboratory Data Labs 24H Laboratory Tests 2 04/28/19 11:20: Bedside Glucose (Misc Panel) 153H 04/28/19 16:28: Bedside Glucose (Misc Panel) 139H 04/28/19 20:19: Bedside Glucose (Misc Panel) 156H 04/29/19 04:38: Nucleated Red Blood Cells % (auto) 0.0, Anion Gap 10, Glomerular Filtration Rate 26.5L, Blood Urea Nitrogen 29H, Creatinine 2.54H, Sodium Level 138, Potassium Level 3.7, Chloride Level 100, Carbon Dioxide Level 28, Calcium Level 8.5L CBC/BMP Laboratory Tests 04/29/19 04:38 Red Blood Count 3.66 L, Mean Corpuscular Volume 93.2, Mean Corpuscular Hemoglo bin 30.1, Mean Corpuscular Hemoglobin Concent 32.3, Red Cell Distribution Width 14.3, Calcium Level 8.5 L FSBS Laboratory Tests Test 04/28/19 11:20 04/28/19 16:28 04/28/19 20:19 Range/Units Bedside Glucose (Misc Panel) 153 139 156 83-110 MG/DL Discharge Medications Scheduled Ascorbic Acid (Ascorbic Acid) 500 Mg Tablet, 500 MG PO DAILY, (Reported) Atorvastatin Calcium (Atorvastatin Calcium) 20 Mg Tablet, 20 MG PO QHS, (Reported) Calcitriol (Calcitriol) 0.25 Mcg Capsule, 0.25 MCG PO QHS, (Reported) Calcium Carbonate/Vitamin D3 (Calcium 600-Vit D3 800 Tablet) 1 Each Tablet, 1 TAB PO DAILY, (Reported) TAKES AT 1400 Carvedilol (Carvedilol) 6.25 Mg Tablet, 6.25 MG PO BID, (Reported) Cetirizine HCl (Cetirizine HCl) 10 Mg Tablet, 10 MG PO QHS, (Reported) Cinacalcet (Sensipar) 30 Mg Tablet, 30 MG PO QWEEK, (Reported) TAKES ON FRIDAY MORNINGS Clopidogrel Bisulfate (Clopidogrel) 75 Mg Tablet, 75 MG PO DAILY, (Reported) Docusate Sodium (Docusate Sodium) 100 Mg Capsule, 100 MG PO BID, (Reported) Febuxostat (Uloric) 80 Mg Tablet, 80 MG PO QHS, (Reported) Lactobacillus Acidophilus (Probiotic) 1 Each Capsule, 1 CAP PO QHS, (Reported) Multivitamins (Thera M Plus Tablet) 1 Each Tablet, 1 TAB PO DAILY, (Reported) Naldemedine Tosylate (Symproic) 0.2 Mg Tablet, 0.2 MG PO DAILY, (Reported) Paroxetine HCl (Paroxetine HCl) 20 Mg Tablet, 20 MG PO QHS, (Reported) Prednisone (Prednisone) 1 Mg Tablet, 7 MG PO DAILY, (Reported) Spironolactone (Spironolactone) 25 Mg Tablet, 25 MG PO QPM, (Reported) TAKES AROUND 1800 Tiotropium [place] (Spiriva Respimat) 4 Gm Mist.inhal, 2 PUFFS INH DAILY, (Reported) Torsemide (Torsemide) 100 Mg Tablet, 100 MG PO DAILY, (Reported) IN THE MORNING AND AT 1400 Ubidecarenone (Coq-10) 100 Mg Capsule, 100 MG PO BID, (Reported) Scheduled PRN Albuterol Sulf (Albuterol Sulfate) 2.5 Mg/3 Ml Vial.neb, 2.5 MG INH Q2H PRN for SOB/WHEEZING, (Reported) Albuterol Sulfate (Proair Hfa) 8.5 Gm Hfa.aer.ad, 2 PUFF INH QID PRN for SHORTNESS OF BREATH, (Reported) Alprazolam (Alprazolam) 0.25 Mg Tablet, 0.25 MG PO TID PRN for ANXIETY, (Reported) Hydroxyzine HCl (Hydroxyzine HCl) 25 Mg Tablet, 25 MG PO TID PRN for ITCHING, (Reported) Allergies Coded Allergies: aspirin (Verified Allergy, Severe, LIPS SWELL, 03/29/19) Penicillins (Verified Allergy, Intermediate, RASH, 04/15/19) ampicillin (Verified Allergy, Intermediate, HIVES, 03/17/19) ceftriaxone (Verified Allergy, Unknown, UNKNOWN REACTION, 04/09/19) YENNIFER OCHOA MD Apr 29, 2019 10:52
[2019-04-29] MEDS: FAMOTIDINE 20 MG TAB PO SCH (13:17)
--- NOTE | 2019-04-29 16:44 | IPN ---
DATE: 04/29/2019 SUBJECTIVE: Patient was seen and examined at the bedside today morning. He is afebrile, hemodynamically stable. He was dialyzed yesterday. He tolerated the hemodialysis procedure well. His blood pressures are well-controlled. Volume status is optimized. He denies any shortness of breath. OBJECTIVE: VITAL SIGNS: Temperature is 98.1 degrees Fahrenheit, blood pressure 121/59, pulse is 92, respiratory rate of 20, saturating 95% on room air. INTAKE AND OUTPUT: Urine output recorded is 125 mL. Ultrafiltration with hemodialysis was 2 liters. Weight in the bed scale was 100.8 kg. PHYSICAL EXAMINATION: GENERAL: Patient is awake, alert, oriented times three, laying in bed in no apparent distress. HEAD AND NECK EXAM: Extraocular muscles intact. Pupils equally round and reactive to light. Mucous membranes are moist. Neck is supple. There is no jugular venous distention (JVD). CARDIOVASCULAR: S1, S2. Regular rate. 1+ edema of the bilateral lower extremities. Left upper arm atrioventricular (AV) fistula with positive thrill and bruit. RESPIRATORY: Chest is clear to auscultation bilaterally. Bilateral equal air entry. No rales or rhonchi. ABDOMEN: Soft, obese, positive bowel sounds. Nontender. MUSCULOSKELETAL: No clubbing or cyanosis. Pulses are 2+. CENTRAL NERVOUS SYSTEM (STICK INSERTER): No focal deficit. Power is 5/5 in all extremities. LABORATORY REVIEW: Complete blood count (CBC) showed a WBC 14.6, hemoglobin is 11, platelets of 161. Basic metabolic panel (BMP) showed sodium 138, potassium 3.7, chloride 100, bicarbonate 28, BUN 29, creatinine is 2.5, calcium is 8.5. CURRENT INPATIENT MEDICATIONS: Patient 's medications were all reviewed by me. There is no change in the medications today as compared with yesterday. ASSESSMENT AND PLAN: 1. End-stage renal disease on hemodialysis. Patient 's outpatient dialysis days will be Friday, Friday, Friday. He was dialyzed yesterday. Next hemodialysis session will be tomorrow as outpatient. 2. Diastolic congestive heart failure. Volume status is significantly better. Patient 's estimated dry weight will be adjusted as outpatient. Continue current dose of torsemide 100 mg by mouth daily on discharge. 3. Anemia in end-stage renal disease. Patient was given Aranesp with dialysis in the hospital. Hemoglobin is 11. The rest of the anemia management will be done according to protocol as outpatient. DISPOSITION: It is okay to discharge the patient from nephrology standpoint. He will be evaluated as outpatient at dialysis center.
== END 2019-04-29 13:30 | disposition home or self-care (01) | DRG 291 ==
LOC: M ED 03:27 → M ED INP 06:16 → M PCU 06:51
PROVIDERS: ADMIT Internal Medicine; ATTEND Internal Medicine
PROC: 02HV33Z Insertion of Infusion Device into Superior Vena Cava, Percutaneous Approach (ICD-10-PCS; 2019-04-25)
PROC: 0JH63XZ Insertion of Tunneled Vascular Access Device into Chest Subcutaneous Tissue and Fascia, Percutaneous Approach (ICD-10-PCS; 2019-04-25)
PROC: 5A1D70Z Performance of Urinary Filtration, Intermittent, Less than 6 Hours Per Day (ICD-10-PCS; principal; 2019-04-26)
DX: I13.2 Hypertensive heart and chronic kidney disease with heart failure and with stage 5 chronic kidney disease, or end stage renal disease (principal); I50.33 Acute on chronic diastolic (congestive) heart failure; N18.6 End stage renal disease; N17.9 Acute kidney failure, unspecified; E87.1 Hypo-osmolality and hyponatremia; N25.81 Secondary hyperparathyroidism of renal origin; F41.9 Anxiety disorder, unspecified; Z95.1 Presence of aortocoronary bypass graft; G47.33 Obstructive sleep apnea (adult) (pediatric); E11.22 Type 2 diabetes mellitus with diabetic chronic kidney disease; M10.30 Gout due to renal impairment, unspecified site; D63.1 Anemia in chronic kidney disease; J44.9 Chronic obstructive pulmonary disease, unspecified; J30.2 Other seasonal allergic rhinitis; F39 Unspecified mood [affective] disorder; Z79.52 Long term (current) use of systemic steroids; Z95.3 Presence of xenogenic heart valve; Z87.891 Personal history of nicotine dependence; Z85.51 Personal history of malignant neoplasm of bladder; Z79.891 Long term (current) use of opiate analgesic; Z79.899 Other long term (current) drug therapy; Z88.0 Allergy status to penicillin; Z88.1 Allergy status to other antibiotic agents; Z88.6 Allergy status to analgesic agent

== ENCOUNTER 2019-05-11 08:22 | Outpatient (CLI) | payer MEDICARE, OTHER ==
[~2019-05-11 08:22] MED LIST changes: -CALC12504 PO; +CALC500T61 PO; +ISOVUE-300 61% 50ML VIAL (Q9967) As Ordered ONE; +MIDAZOLAM INJ 2 MG/2 ML VIAL (J2250) As Ordered ONE; +fentaNYL 100 MCG/2 ML INJECTION (J3010) As Ordered ONE
[2019-05-11] MEDS ORDERED: LIDOCAINE 2% MDV 20 ML VIAL As Ordered ONE (09:11)
--- NOTE | 2019-05-11 10:38 | ROOPDOC ---
[facility] Report Of Operation Report of Operation DATE OF PROCEDURE: 05/11/19 PREPROCEDURE DIAGNOSES: End-stage renal disease with weak thrill left brachiocephalic AV fistula and concern for poor maturation. POSTPROCEDURE DIAGNOSES: Same. PROCEDURE: 1. Ultrasound guided access left cephalic vein 2. Left upper extremity fistulogram and central venogram 3. Coiling of the large branch of the cephalic vein proximal to the AV fistula 4. Completion venogram SURGEON: Zeferino Galindo MD ANESTHESIA: Local anesthesia 5 mL lidocaine. Moderate intravenous conscious sedation was supervised by Dr. Galindo. The patient was independently monitored by a registered nurse assigned to the Department of radiology using automated blood pressure, EKG, and pulse oximetry. A detailed conscious sedation record is probably started in the hospital information system. The following is the conscious sedation record: Start time 09:57, stop time 10:40, Versed 0.5 mg IV, fentanyl 25 g IV. INDICATION FOR PROCEDURE: Mr. Mckeon is a very pleasant 74-year-old gentleman with end-stage renal disease currently dialyzing with a right IJ PermCath. He had a weak thrill in his left brachiocephalic AV fistula, now 6 weeks since creation. There is concern for slow maturation. We discussed the possibility of large steeling branches, stenoses that prevent maturation, and also the possibility that the fistula is simply too deep to assess with palpation. Risk benefits alternatives to a fistulogram with potential intervention, including angioplasty, stenting, coiling were explained at length the patient. He is agreeable to proceed. Informed consent was obtained. INTERPRETATION: 1. On ultrasound examination the cephalic vein is approximately 1 cm or less than 1 cm deep in the upper arm over the bicep. I do not feel this is too deep for access. 2. The cephalic vein is widely patent throughout its length. It is of adequate diameter for access. The central veins are widely patent I do not see any left- sided central stenosis. The flow through the fistula is brisk. 3. There are several large branches, some are closer to the shoulder and will help with outflow, but there is one large branch that is more proximal to the AV anastomosis that is likely steeling some of the flow. We coiled this branch with 2 tornado coils, 5 mm to 3 mm taper. Completion venogram showed nearly acute occlusion of the branch, but it will continue to clock with time. This did not affect the fistula flow which is excellent. PROCEDURE: Patient was brought to the angiographic suite in stable condition and placed supine on the fluoroscopic table. His left upper extremity prepped and draped in a sterile fashion. A timeout was performed. Sedation was administered without complication. The cephalic vein was examined with ultrasound prior to accessing for the procedure. It appears to be 1 cm or less than 1 cm depth throughout its length. It is of adequate size for access. The AV anastomosis is widely patent. Several large branches are seen, 1 is fairly close to the AV anastomosis and may be steeling some of the fistula flow. Local anesthesia was administered to the skin and subcutaneous tissue over the cephalic vein and a microneedle was used to access under ultrasound guidance. A wire was passed through this access and a micro-sheath was placed. Through this access a Glidewire was advanced into the central system under fluoroscopic guidance. A fistulogram was performed and we again saw widely patent inflow through the cephalic vein all the way to the central system with no areas of central vein stenosis or cephalic vein stenosis. The junction with the subclavian vein is also widely patent. We identified the branch that we wanted to coil and we attempted to access this with a glide cath in the Glidewire, but this was not successful. We then exchanged for a on me flushed catheter to get a better angled to access the branch. We were able to access the branch and then deployed a single tornado taper coil, 5 mm to 3 mm. We then checked with a quick venogram and saw there was still significant flow through the branch and a second coil was then placed in a similar fashion. Prior to this there was a dramatic diminishment of flow through the branch and it should thrombosis with a bit more time. The more proximal branches were not coiled as they will aid in our outflow. This concluded her procedure. The patient tolerated the procedure well. We removed the sheath and help pressure for 15 minutes for good hemostasis. The patient was taken back to recovery and monitored and discharged in stable condition. ESTIMATED BLOOD LOSS: Approximately 2 mL. COMPLICATIONS: None. PLAN: Our plan is to see the patient back in clinic in a week. At that time, I will likely map the cephalic vein with ultrasound on his scan in order to give the dialysis nurses a better idea of where to try to access. We will then allow them to try to access the fistula, and if they continue to have difficulty, we may need to superficialize the vein but I am hopeful this will not be necessary. Continue dialysis through the PermCath for now. ZEFERINO GALINDO MD May 11, 2019 10:38
[2019-05-11 11:05] VITALS: BP 102/58
[2019-05-11] MEDS ORDERED: ALBUTEROL SULFATE 2.5 MG/0.5 ML INH NEB SOLN INH ONE (11:15)
== END 2019-05-11 11:05 | disposition home or self-care (01) ==
LOC: M IRPRO 08:22
PROVIDERS: ATTEND Surgery Vascular Surgery
DX: N18.6 End stage renal disease (principal); T82.898A Other specified complication of vascular prosthetic devices, implants and grafts, initial encounter; E11.22 Type 2 diabetes mellitus with diabetic chronic kidney disease; I13.2 Hypertensive heart and chronic kidney disease with heart failure and with stage 5 chronic kidney disease, or end stage renal disease; K21.9 Gastro-esophageal reflux disease without esophagitis; E78.00 Pure hypercholesterolemia, unspecified; I50.9 Heart failure, unspecified; J44.9 Chronic obstructive pulmonary disease, unspecified; F41.9 Anxiety disorder, unspecified; X58.XXXA Exposure to other specified factors, initial encounter; Y93.9 Activity, unspecified; Y92.9 Unspecified place or not applicable; Y99.9 Unspecified external cause status; Z96.1 Presence of intraocular lens; Z85.51 Personal history of malignant neoplasm of bladder
CPT/HCPCS: 36901; 36909; C1769; C1887; C1894; J2250; J3010; Q9967

== ENCOUNTER 2019-05-23 03:25 | Inpatient (IN) | payer MEDICARE, OTHER ==
[~2019-05-23] VITALS: Ht 167.6 cm; Wt 103.4 kg
[~2019-05-23 03:25] MED LIST changes: -ISOVUE-300 61% 50ML VIAL (Q9967) As Ordered ONE; -MIDAZOLAM INJ 2 MG/2 ML VIAL (J2250) As Ordered ONE; -fentaNYL 100 MCG/2 ML INJECTION (J3010) As Ordered ONE
[2019-05-23 04:34] LABS: BASO # 0.1 10^3/uL (0.0-0.2); BASO % 0.5 % (0.0-1.0); EOS # 0.2 10^3/uL (0.0-0.50); EOS % 1.6 % (0.0-3.0); HEMATOCRIT 31.8 % (42.0-52.0); LYMPH # 2.1 10^3/uL (1.5-4.5); LYMPH % 15.6 % (24.0-44.0); MEAN CORPUSCULAR HEMOGLOBIN 31.3 pg (27.0-33.0); MEAN CORPUSCULAR HGB CONC 31.4 g/dl (32.0-36.5); MEAN CORPUSCULAR VOLUME 99.7 fl (80.0-96.0); MONO # 1.1 10^3/uL (0.0-0.8); MONO % 7.9 % (0.0-5.0); NEUTROPHILS # 9.5 10^3/uL (1.8-7.7); NEUTROPHILS % 71.1 % (36.0-66.0); PLATELET COUNT, AUTOMATED 169 10^3/uL (150-450); RED BLOOD COUNT 3.19 10^6/uL (4.30-6.10); VENOUS BASE EXCESS 4.9 (-2.0-2.0); VENOUS HCO3 31.1 MEQ/L (23.0-27.0); VENOUS O2 SATURATION 93.1 % (60.0-80.0); VENOUS PARTIAL PRESSURE O2 69.5 mmHg (30.0-50.0); VENOUS PH 7.378 UNITS (7.330-7.430); VENOUS STANDARD HCO3 28.8 MEQ/L; VENOUS TOTAL CO2 32.7 MEQ/L (24.0-28.0); WHITE BLOOD COUNT 13.3 10^3/uL (4.0-10.0)
[2019-05-23] MEDS ORDERED: IPRATROPIUM 0.5MG/ALBUTEROL 2.5MG INH SOL UD 3ML (DUONEB)(J7620) NEB ONE (04:45)
[2019-05-23 05:20] LABS: ALBUMIN 3.5 GM/DL (3.2-5.2); BILIRUBIN,DIRECT 0.2 MG/DL (0.0-0.2); BILIRUBIN,TOTAL 0.4 MG/DL (0.2-1.0); CALCIUM LEVEL 8.1 MG/DL (8.8-10.2); CK-MB VALUE MASS 1.4 NG/ML (<3.6); CREATININE FOR GFR 4.28 MG/DL (0.70-1.30); GLOMERULAR FILTRATION RATE 14.5 (>42); MB/CK RELATIVE INDEX 3.33 (< OR =4); POTASSIUM SERUM 4.4 MEQ/L (3.5-5.1); THYROID STIMULATING HORMONE 2.29 uIU/ML (0.358-3.740); THYROXINE (T4) 7.8 UG/DL (4.5-12.0); TROPONIN I 0.02 NG/ML (< 0.10)
[2019-05-23] MEDS ORDERED: ONDANSETRON 4MG/2ML VIAL (J2405) IV ONE (05:30)
[2019-05-23] MEDS ORDERED: MORPHINE 4 MG/ML 1ML VIAL/SYRINGE (J2270) IV PRN (05:30)
[2019-05-23] MEDS ORDERED: RANI15TA PO (08:07)
[2019-05-23] MEDS: HEPARIN SOD (PORCINE) 5000 UNITS/ML VIAL SC SCH ×3 (08:13→20:46)
[2019-05-23 10:00] VITALS: BP 138/84
[2019-05-23] MEDS ORDERED: SLF 3 ML SYR IV PRN (10:45)
--- NOTE | 2019-05-23 10:53 | HPEPDOC ---
[facility] Medical History & Physical Date of Admission May 23, 2019 Date of Service: May 23, 2019 (time of service 9:30am) History and Physical CHIEF COMPLAINT: Shortness of breath HISTORY OF PRESENT ILLNESS: Mr. Mckeon is a 74-year-old male who presented with complaints of 3 day duration dyspnea. Per discussion with the ED attending, the patient reported not being able to lie down flat because of the dyspnea and had been feeling very an xious. The patient started dialysis about 3 weeks ago and has sessions on Friday, Friday and Friday. The patient had been having extra sessions weekly. His last session was yesterday, but dialysis was discontinued early because the blood pressure was low. Additional history was obtained from the patient's because the patient had just fallen sleep; he has not been able to sleep for the last 3 days because it is very short of breath and anxious. According to the patient's , he hasn't eaten any new foods, has been trying very hard to restrict his fluids, and has not had any upper respiratory tract symptoms. PAST MEDICAL /SURGICAL HISTORY: 1. ESRD on dialysis Friday, Friday and Friday via left arm AV fistula and Port-A-Cath complicated by anemia 2. Diastolic dysfunction. 3. Mitral valve prosthesis. 4. Aortic stenosis. 5. Mild pulmonary hypertension. 6. History of vlg-lktsgad-bybcqpopm type 2 diabetes mellitus (no longer on medications) 7. CAD status post quadruple bypass. 8 History of bladder cancer twice (is currently in remission). 9. Gout. 10 Restrictive lung disease. 11. ABELARDO/OHS (not compliant with BiPAP) 12. Chronic back pain with spinal stimulator implant. 13. Anxiety. 14. History of right knee surgery. 15. History of elbow surgery SOCIAL HISTORY: Marital status: . Tobacco use: Former smoker FAMILY HISTORY: Mother: Diabetes ALLERGIES: Please see below. REVIEW OF SYSTEMS: Unobtainable because patient is sleeping. Will review at a later time HOME MEDICATIONS: Please see below. PHYSICAL EXAMINATION: VITAL SIGNS: Temperature 96.2, pulse 86, respiratory rate 20, blood pressure 117/58, oxygen saturation 98% on 2 L by nasal cannula GENERAL APPEARANCE: Well-nourished, well-developed, does not appear anxious, is obese, is asleep lying on his left side HEENT: Head is normocephalic and atraumatic, lips not cyanotic, nasal cannula in place. CARDIOVASCULAR: Heart has a regular rate and rhythm, there are no murmurs, rubs or gallops. There is a Port-A-Cath at the right upper chest LUNGS:, Is snoring, breath sounds are diminished. ABDOMEN: Abdomen is obese, and soft on palpation. Bowel sounds are hypoactive EXTREMITIES: There is 1+ bilateral lower extremity edema, the left leg is more swollen than the right. (according to the patient's , this chronic), there is an AV fistula at the left upper extremity. THE THRILL IS PALPABLE. SKIN: There is a postsurgical scar at the anterior aspect of the right knee. LABORATORY DATA: CBC was remarkable for WBC count of 13.3, hemoglobin of 10.8 with MCV of 99.7. The BMP was remarkable for chloride of 95, BUNs of 56, creatinine of 4.28, GFR 14.5, and pro BNP of 3170. IMAGING: Chest x-ray done on May 23 was personally visualized, is reported as pending. There is cardiomegaly, poststernotomy wires present, a Port-A-Cath in place, congestion at the lung bases, cephalization of the blood vessels, and chronic interstitial changes. MICROBIOLOGY: Not applicable ASSESSMENT: Mr. Mckeon is a 74-year-old male with a past medical history of ESRD on dialysis, diastolic dysfunction, CAD status post CABG, mitral valve prosthesis, pulmonary hypertension, wen-tgbueox-hmtbdsyzn type 2 diabetes, history of bladder cancer, gout, restrictive lung disease, ABELARDO/OHS, and chronic back pain who will be admitted for management of fluid overload. . PLAN: 1. Dyspnea secondary to fluid overload in the setting of ESRD and possibly acute diastolic heart failure. The chest x-ray and BNP were reviewed. Echo report from March 2019. Reviewed yet at the time was 70%. There was mild pulmonary hypertension and left atrial dilatation along with aortic stenosis Plan: Admit to PCU, nephrology consult for dialysis, resume home ESRD and diuretics, f/u Is and Os and daily weights, restrict salt to 2 G and fluids to 2L 2. Leukocytosis Cause to be determined. Plan: Monitor vitals, follow-up CBC, will evaluate patient later to determine if he has abdominal pain, or any other complaints that may point to source of infection 3. Restrictive lung disease. Stable, the patient is not not wheezing Plan: Continue with home meds 4. Macrocytic anemia. Likely multifactorial in nature. Plan: Follow up CBC, iron studies, B12 and folate. 5. ABELARDO/OHS (not compliant with BiPAP) 6. Wls-puqgzdf-cuaijjjrc type 2 diabetes. Plan: Follow-up Accu-Cheks. 7. Chronic CAD status post quadruple bypass. Plan: continue home meds. 8. Gout. Plan: Continue home meds. 9. Chronic back pain with spinal stimulator implant. Plan: Continue home meds. 10. Unsteady gait. Per discussion with the patient's , the patient was supposed to start outpatient physical therapy after his last hospital admission but they have not had time to set this up. Plan: Reconsult PT 11 Chronic Back Pain Plan: PT and c/w home meds 12.Anxiety Plan: c/w home meds 13.Obesity. BMI is 38.0. Plan: Follow-up with PCP to discuss diet. 14. Multiple comorbidities. I discussed the patient's CODE STATUS and the possibility of involving pal liative care in the future with the patient's . Plan: The patient and his can follow-up with his PCP to discuss this fu rther DVT prophylaxis with heparin. Disposition pending clinical course Vital Signs Vital Signs Date Time Temp Pulse Resp B/P (MAP) Pulse Ox O2 Delivery O2 Flow Rate FiO2 05/23/19 10:00 97.5 89 20 138/84 (102) 93 2.0 05/23/19 10:00 Nasal Cannula Home Medications Scheduled Ascorbic Acid (Ascorbic Acid) 500 Mg Tablet, 500 MG PO DAILY Atorvastatin Calcium (Atorvastatin Calcium) 20 Mg Tablet, 20 MG PO QHS Calcitriol (Calcitriol) 0.25 Mcg Capsule, 0.25 MCG PO Q2D AT BEDTIME Calcium Carbonate/Vitamin D3 (Calcium 600-Vit D3 800 Tablet) 1 Each Tablet, 1 TAB PO DAILY Carvedilol (Carvedilol) 6.25 Mg Tablet, 6.25 MG PO BID Cetirizine HCl (Cetirizine HCl) 10 Mg Tablet, 10 MG PO QHS Clopidogrel Bisulfate (Clopidogrel) 75 Mg Tablet, 75 MG PO DAILY Docusate Sodium (Docusate Sodium) 100 Mg Capsule, 100 MG PO BID Febuxostat (Uloric) 80 Mg Tablet, 80 MG PO Q2D AT BEDTIME Lactobacillus Acidophilus (Probiotic) 1 Each Capsule, 1 CAP PO QHS Multivitamins (Thera M Plus Tablet) 1 Each Tablet, 1 TAB PO DAILY Naldemedine Tosylate (Symproic) 0.2 Mg Tablet, 0.2 MG PO DAILY Paroxetine HCl (Paroxetine HCl) 20 Mg Tablet, 20 MG PO QHS Prednisone (Prednisone) 1 Mg Tablet, 6 MG PO DAILY Ranitidine Hcl (Ranitidine HCl) 150 Mg Tablet, 1 TAB PO DAILY Spironolactone (Spironolactone) 25 Mg Tablet, 25 MG PO QPM TAKES AROUND 1800 Tiotropium [place] (Spiriva Respimat) 4 Gm Mist.inhal, 2 PUFFS INH DAILY Torsemide (Torsemide) 100 Mg Tablet, 100 MG PO DAILY IN THE MORNING AND AT 1400 Ubidecarenone (Coq-10) 100 Mg Capsule, 100 MG PO BID Scheduled PRN Albuterol Sulf (Albuterol Sulfate) 2.5 Mg/3 Ml Vial.neb, 2.5 MG INH Q2H PRN for SOB/WHEEZING Albuterol Sulfate (Proair Hfa) 8.5 Gm Hfa.aer.ad, 2 PUFF INH QID PRN for SHORTNE SS OF BREATH Alprazolam (Alprazolam) 0.25 Mg Tablet, 0.25 MG PO TID PRN for ANXIETY Hydroxyzine HCl (Hydroxyzine HCl) 25 Mg Tablet, 25 MG PO TID PRN for ITCHING Allergies Coded Allergies: aspirin (Verified Allergy, Severe, LIPS SWELL, 03/29/19) Penicillins (Verified Allergy, Intermediate, RASH, 04/15/19) ampicillin (Verified Allergy, Intermediate, HIVES, 03/17/19) ceftriaxone (Verified Allergy, Unknown, UNKNOWN REACTION, 04/09/19) A-FIB/CHADSVASC A-FIB History Current/History of A-Fib/PAF?: No Current PO Anticoag Therapy: No ALEX GONZALEZ MD May 23, 2019 10:53
[2019-05-23] MEDS ORDERED: hydrOXYzine 25 MG TAB PO PRN (11:30)
[2019-05-23] MEDS ORDERED: ALBUTEROL 90 MCG/ACT 8GM HFA INHALER INH PRN (11:30)
[2019-05-23] MEDS ORDERED: ALPRAZolam 0.25 MG TAB PO PRN ×2 (11:30→17:30)
[2019-05-23] MEDS ORDERED: SENNA 8.6 MG TAB (SENOKOT) PO PRN (11:30)
[2019-05-23 12:00] VITALS: BP 131/81
[2019-05-23] MEDS: TIOTROPIUM INHALER/CAPSULE (SPIRIVA) INH SCH (13:26)
[2019-05-23] MEDS: predniSONE 1 MG TAB PO SCH (15:43)
[2019-05-23] MEDS: CARVedilol 6.25 MG TAB PO SCH ×2 (15:43→20:45)
[2019-05-23] MEDS: TORSEMIDE 100 MG TAB PO SCH (15:43)
[2019-05-23] MEDS: MULTIVITAMINS/MINERALS THERAP 1 TAB PO SCH (15:44)
[2019-05-23] MEDS: CLOPIDOGREL 75 MG TAB PO SCH (15:44)
[2019-05-23] MEDS: SLF 3 ML SYR IV SCH ×2 (15:49→20:47)
[2019-05-23 16:00] VITALS: BP 118/84
[2019-05-23] MEDS: SPIRONOLACTONE 25 MG TAB PO SCH (18:56)
[2019-05-23 20:00] VITALS: BP 144/74; O2SAT 90
[2019-05-23] MEDS: CALCITRIOL 0.25 MCG CAP (S0169) PO SCH (20:44)
[2019-05-23] MEDS: FEBUXOSTAT 40 MG TABLET (ULORIC) PO SCH (20:44)
[2019-05-23] MEDS: CETIRIZINE (ZyrTEC) 10 MG TAB PO SCH (20:45)
[2019-05-23] MEDS: PARoxetine 20 MG TAB PO SCH (20:45)
[2019-05-23] MEDS: ATORVASTATIN 20 MG TAB PO SCH (20:46)
[2019-05-23 21:00] VITALS: O2SAT 91
[2019-05-23 22:00] VITALS: O2SAT 93
[2019-05-24] VITALS (21 sets, daily range): BP systolic 115–153; BP diastolic 59–83; O2SAT 88–97
--- NOTE | 2019-05-24 05:49 | ECGEPIP ---
[facility] - ED Test Date: 2019-05-23 Pat Name: VEDA BARRERA Department: Room: - Gender: Male [employer]: : 1945 Requested By: BLAS West Order Number: [id number] Reading MD: Patrick Gee Measurements Intervals [place] Rate: 78 P: 38 MT: 186 QRS: -9 QRSD: 170 T: 8 QT: 382 QTc: 437 Interpretive Statements SINUS RHYTHM WITH FREQUENT VENTRICULAR PREMATURE COMPLEXES POSSIBLE LEFT ATRIAL ENLARGEMENT RIGHT BUNDLE BRANCH BLOCK SIMILAR TO 04/25/19 Electronically Signed on 05-24-2019 5:49:22 EDT by Patrick Gee
[2019-05-24 05:59] LABS: HEMATOCRIT 31.9 % (42.0-52.0); HEMOGLOBIN 9.9 g/dl (13.5-17.5); MEAN CORPUSCULAR HEMOGLOBIN 31.8 pg (27.0-33.0); MEAN CORPUSCULAR VOLUME 102.6 fl (80.0-96.0); PLATELET COUNT, AUTOMATED 171 10^3/uL (150-450); RED BLOOD COUNT 3.11 10^6/uL (4.30-6.10); WHITE BLOOD COUNT 12.4 10^3/uL (4.0-10.0)
[2019-05-24] MEDS: HEPARIN SOD (PORCINE) 5000 UNITS/ML VIAL SC SCH ×3 (06:21→20:54)
[2019-05-24] MEDS: SLF 3 ML SYR IV SCH ×3 (06:21→20:54)
[2019-05-24 06:22] LABS: CALCIUM LEVEL 8.4 MG/DL (8.8-10.2); CREATININE FOR GFR 5.44 MG/DL (0.70-1.30)
--- NOTE | 2019-05-24 07:54 | CR ---
DATE OF CONSULTATION: 05/23/2019 REASON FOR CONSULTATION: Congestive heart failure in this gentleman with end-stage renal disease and multiple chronic medical problems. HISTORY OF PRESENT ILLNESS: Mr. Mckeon is a 74-year-old gentleman who recently started hemodialysis due to recurrent admissions for congestive heart failure and renal failure. During his last admission he became oliguric and failed to respond to diuretics due to which dialysis was initiated. Unfortunately he has not been tolerating dialysis very well due to recurrent hypotension and anxiety. He is regularly dialyzed on Friday, Friday and Friday schedule. I did see him on Friday during dialysis and noticed to be in decompensated congestive heart failure. He has been gaining quite a bit of weight between dialysis treatments. Need for fluid restriction was explained to the patient and he was scheduled for an extra ultrafiltration on Friday. He did come for ultrafiltration and after 2 hours it was stopped due to low blood pressure. The patient became more anxious through the night and started to panic due to which he was brought to the emergency room early this morning. Apparently he was very anxious and has some pain in the back due to which he was given morphine sulfate about 07:00 a.m. this morning in the emergency room. At the time of my arrival, he is sleeping in the bed lying almost supine in the bed and was unable to arouse him. I came back afterwards an hour and had a talk with to his . His did explain to me about his condition and events of last evening. PAST MEDICAL HISTORY: Significant for 1. Longstanding history of diabetes. 2. Diastolic congestive heart failure. 3. History of valvular heart disease with mitral valve prosthesis and history of aortic stenosis. 4. History of mild pulmonary hypertension. 5. History of coronary artery disease status post quadruple bypass. 6. History of bladder cancer, currently in remission. 7. History of severe anxiety. 8. History of restrictive lung disease. 9. History of obstructive sleep apnea not using bilevel positive airway pressure (BiPAP). 10. History of chronic back pain with spinal stimulator implant. 11. History of anemia for which he has required transfusions in the past. 12. Hypertension. PAST SURGICAL HISTORY: Significant for: 1. Right knee surgery. 2. History of elbow surgery. 3. History of dorsal stimulator implant. 4. History of transurethral resection of bladder tumor (TURBT). 5. Quadruple bypass surgery mitral valve replacement. FAMILY HISTORY: Family history is negative for end-stage renal disease. PERSONAL AND SOCIAL HISTORY: The patient is and lives with his . He is a former smoker. There is no history of alcohol or drug use. MEDICATIONS: His home medications include: - vitamin C 500 mg daily - atorvastatin 20 mg daily - calcitriol 0.25 mcg every 2 days - calcium carbonate 1 tablet daily - Carvedilol 6.25 mg twice a day - cetirizine 10 mg at bedtime - Plavix 75 mg daily - Colace 100 mg twice a day - Uloric 80 mg every other day - multivitamin 1 tablet daily - paroxetine 20 mg daily - prednisone 50 mg daily - ranitidine 150 mg daily - spironolactone 25 mg daily - Spiriva inhaler 2 puffs daily - torsemide 100 mg daily - albuterol inhaler as needed - Xanax 0.25 mg as needed anxiety - hydroxyzine 25 mg itching ALLERGIES: He has allergy to ASPIRIN, PENICILLIN, CEFTRIAXONE and AMPICILLIN. REVIEW OF SYSTEMS: The patient is unable to wake and not able to provide any information. His provided all the information. Apparently he did not have any fever or chills. He was short of breath and did go to dialysis yesterday for an extra ultrafiltration session which was terminated after 2 hours due to low blood pressure. Ears, nose and throat are unremarkable. Cardiovascular system significant for chronic dyspnea and leg edema. No chest pain reported through the night. Respiratory system is significant for obstructive sleep apnea and chronic obstructive pulmonary disease (COPD). No history of hemoptysis or pleuritic type of chest pain. Gastrointestinal (GI) system is negative for nausea, vomiting or diarrhea. He did not eat anything all day today. Genitourinary () system is significant for prior history of bladder cancer. He has decreased urine output. Musculoskeletal system significant for chronic back pain and lower extremity edema. Psychosocial system significant for severe anxiety, panic attacks and depression. Neurological system negative for seizures or stroke. Skin is negative for rash or ulcers. PHYSICAL EXAMINATION: The patient is sleeping at present, lying supine in the bed. He is using oxygen via nasal cannula. Temperature 97.4 degrees Fahrenheit, heart rate 78 per minute and respiratory rate 18 per minute. Blood pressure 131/81 mmHg and oxygen saturation 97% on 2 liters oxygen. Head is atraumatic. Oral mucosa is somewhat dry. Neck is supple and jugular venous distention (JVD) is moderately elevated. Heart: Sounds are without a pericardial friction rub. Lungs have diminished breath sounds bilaterally. Abdomen is soft and nontender and bowel sounds are normal. Extremities have no cyanosis or clubbing. Neurologically, he is currently sleeping and I was unable to wake him up. LABORATORY DATA: White blood cell (WBC) count 13.3, hemoglobin 10.0, hematocrit 31.8. Platelets 169. Sodium 136, potassium 4.4, CO2 31, BUN 56 and creatinine 4.28. Glucose 93 and calcium 8.1. Total protein is 7 and albumin 3.5. Thyroid-stimulating hormone (TSH) 2.29. Chest x-ray done in the emergency room showed cardiomegaly and bilateral vascular congestion. PROBLEMS: 1. Shortness of breath. Most likely this a combination of chronic obstructive pulmonary disease (COPD), congestive heart failure and his anxiety. At present, he is lying comfortably in supine position and he is using oxygen at 2 liters via nasal cannula. His oxygen saturation is in high 90s. I have discussed with the patient's and explained to her that at this point there is no emergent need for dialysis and we will continue to monitor him closely. I would recommend to continue with oxygen supplementation. I would also recommend to avoid giving him more morphine as he is knocked out from the dose that he received this morning. Probably alprazolam is a better choice for his anxiety. His volume status is mildly decompensated but he did not tolerate ultrafiltration and remains at risk for recurrent hypotension. We will hold his Carvedilol prior to dialysis. I am going to schedule his dialysis for tomorrow morning and we will continue to monitor. 2. End-stage renal disease. The patient is regularly dialyzed on Friday, Friday and Friday schedule. He did have his regular dialysis on Friday and then he had an extra ultrafiltration session on Friday. We will plan dialysis again tomorrow. 3. Anemia. His anemia is chronic and stable and there is no emergent need for a transfusion. Complete blood count (CBC) should be checked again tomorrow morning. 4. Hypertension. His blood pressure is generally well-controlled. He does get hypotensive during dialysis which prevents aggressive fluid removal. We will hold his Carvedilol prior to dialysis treatment. 5. Chronic obstructive pulmonary disease (COPD) and obstructive sleep apnea. The patient has been noncompliant with his continuous positive airway pressure (CPAP). He does not smoke anymore and we will try to optimize his volume status. I would recommend continued use of nebulizers and inhalers. 6. Anxiety. The patient does have significant anxiety and probably will benefit from long-acting anti-anxiety medications or as needed use of alprazolam. Thank you for involving me in the care of Mr. Mckeon. I will follow him along with you.
[2019-05-24] MEDS: TIOTROPIUM INHALER/CAPSULE (SPIRIVA) INH SCH (08:19)
[2019-05-24] MEDS ORDERED: HEPARIN 1,000 UNITS/ML 10ML VIAL (FOR RADIOLOGY& DIALYSIS ONLY) XX ONE (11:15)
[2019-05-24] MEDS ORDERED: LIDOCAINE 5% (LIDODERM) PATCH TD PRN (12:00)
[2019-05-24] MEDS ORDERED: ACETAMINOPHEN 500 MG TAB PO PRN (12:00)
[2019-05-24] MEDS: predniSONE 1 MG TAB PO SCH (13:10)
[2019-05-24] MEDS: CARVedilol 6.25 MG TAB PO SCH ×2 (13:11→20:54)
[2019-05-24] MEDS: MULTIVITAMINS/MINERALS THERAP 1 TAB PO SCH (13:11)
[2019-05-24] MEDS: CLOPIDOGREL 75 MG TAB PO SCH (13:11)
[2019-05-24] MEDS: TORSEMIDE 100 MG TAB PO SCH (13:16)
--- NOTE | 2019-05-24 15:35 | IPN ---
DATE: 05/24/2019 Mr. Mckeon was admitted yesterday with shortness of breath and severe anxiety. He received a dose of morphine and slept for almost 24 hours. This morning, he is being dialyzed and he is feeling much better. He is still anxious during dialysis and wants to come off. His shortness of breath has improved and he remains on two liters of oxygen. The patient has no fever or chills. PHYSICAL EXAMINATION: Temperature 97.0 degrees Fahrenheit, heart rate 80 per minute and respiratory rate 18 per minute. Blood pressure is down to 114/70 mmHg and oxygen saturation 96% on two liters of oxygen. Head is atraumatic. Neck is supple and jugular venous distention (JVD) difficult to be assessed. A right-sided internal jugular vein hemodialysis catheter is in place. Heart sounds are regular. Lungs with slightly diminished breath sounds. Abdomen is soft and nontender and bowel sounds are normal. Extremities have no cyanosis or clubbing. Neurologically, he is awake and able to answer questions appropriately. Yesterday, I could not wake him up. LABORATORY DATA: Today's laboratories show WBC count 12.4, hemoglobin 9.9 and hematocrit 31.9. Sodium 133, potassium 5.0, CO2 of 31, BUN 71 and creatinine 5.44. PROBLEMS: 1. Shortness of breath, related to decompensated congestive heart failure. The patient is being dialyzed and we are trying to remove about three liters of fluid which he is tolerating reasonably well so far. 2. End-stage renal disease. The patient is regularly dialyzed on Friday, Friday and Friday schedule and is being dialyzed today. He had an extra ultrafiltration on Friday which he did not tolerate very well and became hypotensive after two hours. Due to which, his treatment was stopped. 3. Hypokalemia. Mild hyperkalemia is related to volume overload in the setting of end-stage renal disease. This is likely to correct with dialysis today and will not require any other intervention. 4. Anemia. At present, his anemia is stable and we will continue to monitor closely. There is no emergent indication for any intervention. 5. Anxiety. The patient does have severe anxiety and panic attacks. I have advised him to use his alprazolam as needed which he has not been using. I would recommend to avoid further use of morphine.
[2019-05-24 16:58] LABS: BASO % 0.2 % (0.0-1.0); EOS # 0.1 10^3/uL (0.0-0.50); EOS % 0.6 % (0.0-3.0); HEMATOCRIT 31.4 % (42.0-52.0); HEMOGLOBIN 9.9 g/dl (13.5-17.5); LYMPH # 0.9 10^3/uL (1.5-4.5); LYMPH % 7.3 % (24.0-44.0); MEAN CORPUSCULAR HEMOGLOBIN 31.1 pg (27.0-33.0); MEAN CORPUSCULAR HGB CONC 31.5 g/dl (32.0-36.5); MEAN CORPUSCULAR VOLUME 98.7 fl (80.0-96.0); MONO % 7.6 % (0.0-5.0); NEUTROPHILS # 10.1 10^3/uL (1.8-7.7); NEUTROPHILS % 80.7 % (36.0-66.0); PLATELET COUNT, AUTOMATED 164 10^3/uL (150-450); RED BLOOD COUNT 3.18 10^6/uL (4.30-6.10); WHITE BLOOD COUNT 12.5 10^3/uL (4.0-10.0)
[2019-05-24 17:15] LABS: CALCIUM LEVEL 8.5 MG/DL (8.8-10.2); CREATININE FOR GFR 3.33 MG/DL (0.70-1.30); GLOMERULAR FILTRATION RATE 19.4 (>42); POTASSIUM SERUM 4.5 MEQ/L (3.5-5.1)
[2019-05-24] MEDS: SPIRONOLACTONE 25 MG TAB PO SCH (17:43)
--- NOTE | 2019-05-24 18:11 | IPNPDOC ---
Subjective Date Seen The patient was seen on 05/24/19. Time of service 1330 Subjective Chief Complaint/HPI DYSPNEA Events since last encounter The patient reports feeling much better after having dialysis earlier on this morning. Per discussion with nursing staff. 3 L of fluid was removed. Objective Physical Examination Other physical findings PHYSICAL EXAMINATION: VITAL SIGNS: See below GENERAL APPEARANCE: Well-nourished, well-developed, does not appear anxious, is obese, is asleep lying on his left side HEENT: Head is normocephalic and atraumatic, lips not cyanotic, nasal cannula in place. CARDIOVASCULAR: Heart has a regular rate and rhythm, there are no murmurs, rubs or gallops. There is a Port-A-Cath at the right upper chest LUNGS:, Is snoring, breath sounds are diminished. ABDOMEN: Abdomen is obese, and soft on palpation. Bowel sounds are hypoactive EXTREMITIES: There is 1+ bilateral lower extremity edema, the left leg is more swollen than the right. (according to the patient's , this chronic), there is an AV fistula at the left upper extremity. THE THRILL IS PALPABLE. SKIN: There is a postsurgical scar at the anterior aspect of the right knee. Assessment /Plan Assessment Mr. Mckeon is a 74-year-old male with a past medical history of ESRD on dialysis, diastolic dysfunction, CAD status post CABG, mitral valve prosthesis, pulmonary hypertension, [id number]-qsrlaiqad type 2 diabetes, history of bladder cancer, gout, restrictive lung disease, ABELARDO/OHS, and chronic back pain who will be admitted for management of fluid overload. PLAN 1. Multifactorial Dyspnea Secondary to fluid overload in the setting of ESRD and possibly acute diastolic heart failure. The chest x-ray and BNP were reviewed. Echo report from March 2019. Reviewed yet at the time was 70%. There was mild pulmonary hypertension and left atrial dilatation along with aortic stenosis Plan: Dialysis per nephrology, continue with home antihypertensive and diuretics, f/u Is and Os and daily weights, restrict salt to 2 G and fluids to 2L 2. Leukocytosis Pt c/o of intermittent abd pain Plan: Monitor vitals, follow-up CBC, and UA if we can obtain a sample 3. Restrictive lung disease. Stable, the patient is not not wheezing Plan: Continue with home meds 4. Macrocytic anemia. Likely multifactorial in nature. Plan: Follow up CBC, iron studies, B12 and folate. 5. ABELARDO/OHS (not compliant with BiPAP) 6. Osw-wvwlicj-pbkahsftw type 2 diabetes. Plan: Follow-up Accu-Cheks. 7. Chronic CAD status post quadruple bypass. Plan: continue home meds. 8. Gout. Plan: Continue home meds. 9. Chronic back pain with spinal stimulator implant. Plan: Continue home meds. 10. Unsteady gait. Per discussion with the patient's , the patient was supposed to start outpatient physical therapy after his last hospital admission but they have not had time to set this up. Plan: Reconsult PT 11 Chronic Back Pain Plan: PT and c/w home meds 12.Anxiety Plan: c/w home meds 13.Obesity. BMI is 38.0. Plan: Follow-up with PCP to discuss diet. 14. Multiple comorbidities. I discussed the patient's CODE STATUS and the possibility of involving palliati ve care in the future with the patient's . Plan: The patient and his can follow-up with his PCP to discuss this further DVT prophylaxis with heparin. Disposition pending clinical course Plan/VTE VTE Prophylaxis Ordered?: Yes (heparin) VS, I&O, 24H, Fishbone Vital Signs/I&O Vital Signs Date Time Temp Pulse Resp B/P (MAP) Pulse Ox O2 Delivery O2 Flow Rate FiO2 05/24/19 16:00 96.9 80 18 135/64 (87) 96 1.0 05/24/19 06:00 Nasal Cannula I&O- Last 24 Hours up to 6 AM 05/24/19 06:00 Intake Total 840 ml Output Total 375 ml Balance 465 ml Laboratory Data 24H LABS Laboratory Tests 2 05/23/19 19:00: Bedside Glucose (Misc Panel) 98 05/23/19 21:48: Bedside Glucose (Misc Panel) 132H 05/24/19 05:37: Nucleated Red Blood Cells % (auto) 0.0, Anion Gap 7L, Glomerular Filtration Rate 11.0L, Blood Urea Nitrogen 71H, Creatinine 5.44H, Sodium Level 133L, Potassium Level 5.0, Chloride Level 95L, Carbon Dioxide Level 31, Calcium Level 8.4L 05/24/19 16:32: Nucleated Red Blood Cells % (auto) 0.0, Anion Gap 7L, Glomerular Filtration Rate 19.4L, Blood Urea Nitrogen 28#H, Creatinine 3.33H, Sodium Level 137, Potassium Level 4.5, Chloride Level 99, Carbon Dioxide Level 31, Calcium Level 8.5L, Immature Granulocyte % (Auto) 3.6H, White Blood Count 12.5H, Red Blood Count 3.18L, Hemoglobin 9.9L, Hematocrit 31.4L, Mean Corpuscular Volume 98.7H, Mean Corpuscular Hemoglobin 31.1, Mean Corpuscular Hemoglobin Concent 31.5L, Red Cell Distribution Width 15.9H, Platelet Count 164, Neutrophils (%) (Auto) 80.7H, Lymphocytes (%) (Auto) 7.3L, Monocytes (%) (Auto) 7.6H, Eosinophils (%) (Auto) 0.6, Basophils (%) (Auto) 0.2, Neutrophils # (Auto) 10.1H, Lymphocytes # (Auto) 0.9L, Monocytes # (Auto) 1.0H, Eosinophils # (Auto) 0.1, Basophils # (Auto) 0.0, Magnesium Level 2.4 05/24/19 17:05: Bedside Glucose (Misc Panel) 156H CBC/BMP Laboratory Tests 05/24/19 05:37 Red Blood Count 3.11 L, Mean Corpuscular Volume 102.6 H, Mean Corpuscular Hemoglobin 31.8, Mean Corpuscular Hemoglobin Concent 31.0 L, Red Cell Distribution Width 16.0 H, Calcium Level 8.4 L 05/24/19 16:32 Red Blood Count 3.18 L, Mean Corpuscular Volume 98.7 H, Mean Corpuscular Hemoglobin 31.1, Mean Corpuscular Hemoglobin Concent 31.5 L, Red Cell Distribution Width 15.9 H, Calcium Level 8.5 L, Neutrophils (%) (Auto) 80.7 H, Lymphocytes (%) (Auto) 7.3 L, Monocytes (%) (Auto) 7.6 H, Eosinophils (%) (Auto) 0.6, Basophils (%) (Auto) 0.2, Neutrophils # (Auto) 10.1 H, Lymphocytes # (Auto) 0.9 L, Monocytes # (Auto) 1.0 H, Eosinophils # (Auto) 0.1, Basophils # (Auto) 0.0 ALEX GONZALEZ MD May 24, 2019 18:11
[2019-05-24] MEDS: ATORVASTATIN 20 MG TAB PO SCH (20:51)
[2019-05-24] MEDS: CETIRIZINE (ZyrTEC) 10 MG TAB PO SCH (20:54)
[2019-05-24] MEDS: PARoxetine 20 MG TAB PO SCH (20:54)
[2019-05-24] MEDS: **NOTE PATIENT COMMENT** MISC XX SCH (21:00)
[2019-05-24] MEDS ORDERED: CINA30TA4 PO (21:34)
[2019-05-24] MEDS ORDERED: MORP15TA2 PO (21:40)
[2019-05-24] MEDS ORDERED: MORPHINE 4 MG/ML 1ML VIAL/SYRINGE (J2270) IV ONE (22:00)
[2019-05-25] VITALS (20 sets, daily range): BP systolic 103–161; BP diastolic 51–75; O2SAT 90–95
[2019-05-25] MEDS ORDERED: HYDROMORPHONE HCL 0.5 MG/ 0.5 ML SYRINGE (J1170 PER 1) IV ONE (01:30)
[2019-05-25] MEDS: HEPARIN SOD (PORCINE) 5000 UNITS/ML VIAL SC SCH ×3 (05:29→21:08)
[2019-05-25] MEDS: SLF 3 ML SYR IV SCH ×3 (05:29→21:09)
[2019-05-25 05:51] LABS: BASO % 0.4 % (0.0-1.0); EOS # 0.1 10^3/uL (0.0-0.50); EOS % 1.2 % (0.0-3.0); HEMATOCRIT 29.8 % (42.0-52.0); HEMOGLOBIN 9.6 g/dl (13.5-17.5); LYMPH # 1.5 10^3/uL (1.5-4.5); LYMPH % 13.2 % (24.0-44.0); MEAN CORPUSCULAR HEMOGLOBIN 32.3 pg (27.0-33.0); MEAN CORPUSCULAR HGB CONC 32.2 g/dl (32.0-36.5); MEAN CORPUSCULAR VOLUME 100.3 fl (80.0-96.0); MONO # 1.1 10^3/uL (0.0-0.8); MONO % 9.4 % (0.0-5.0); NEUTROPHILS # 8.1 10^3/uL (1.8-7.7); NEUTROPHILS % 72.6 % (36.0-66.0); PLATELET COUNT, AUTOMATED 155 10^3/uL (150-450); RED BLOOD COUNT 2.97 10^6/uL (4.30-6.10); WHITE BLOOD COUNT 11.1 10^3/uL (4.0-10.0)
[2019-05-25 06:17] LABS: CALCIUM LEVEL 8.1 MG/DL (8.8-10.2); CREATININE FOR GFR 4.18 MG/DL (0.70-1.30); GLOMERULAR FILTRATION RATE 14.9 (>42); POTASSIUM SERUM 4.2 MEQ/L (3.5-5.1)
[2019-05-25] MEDS: TIOTROPIUM INHALER/CAPSULE (SPIRIVA) INH SCH (07:29)
[2019-05-25] MEDS ORDERED: PILL CUTTER 1 EACH XX PRN (09:00)
[2019-05-25] MEDS: MORPHINE 30 MG TAB **MSIR PO SCH ×2 (09:50→21:10)
[2019-05-25] MEDS: MORPHINE 4 MG/ML 1ML VIAL/SYRINGE (J2270) IV ONE ×2 (10:00→10:18)
[2019-05-25] MEDS ORDERED: HEPARIN 1,000 UNITS/ML 10ML VIAL (FOR RADIOLOGY& DIALYSIS ONLY) IV ONE (11:00)
[2019-05-25] MEDS ORDERED: HEPARIN 1,000 UNITS/ML 10ML VIAL (FOR RADIOLOGY& DIALYSIS ONLY) XX ONE (11:00)
[2019-05-25] MEDS: MULTIVITAMINS/MINERALS THERAP 1 TAB PO SCH (12:12)
[2019-05-25] MEDS: CLOPIDOGREL 75 MG TAB PO SCH (12:12)
[2019-05-25] MEDS: predniSONE 1 MG TAB PO SCH (12:13)
[2019-05-25] MEDS: TORSEMIDE 100 MG TAB PO SCH (12:14)
[2019-05-25] MEDS: CARVedilol 6.25 MG TAB PO SCH ×2 (12:34→21:09)
[2019-05-25] MEDS ORDERED: MORPHINE 4 MG/ML 1ML VIAL/SYRINGE (J2270) IV ONE ×2 (12:45)
--- NOTE | 2019-05-25 14:10 | IPN ---
DATE: 05/25/2019 Mr. Srinivasan is seen this morning on his bedside. He had his regular hemodialysis yesterday. He was short of breath and volume overloaded and we decided to do an extra ultrafiltration today in order to correct his volume status. I have seen him in dialysis. He has complained of severe pain in his back and also complains of pain in his left forearm. He is quite restless in the bed due to pain. His dyspnea has improved and lower extremity edema has also improved with fluid removal. The patient has no nausea or vomiting. On physical examination, temperature 97.5 degrees Fahrenheit, heart rate 90 per minute and respiratory rate 20 per minute. Blood pressure 108/60 mmHg and oxygen saturation 94%. His head is atraumatic. Neck is supple and jugular venous distention (JVD) difficult to be assessed as he is quite restless and unable to stay still. His heart sounds are tachycardiac and lungs with good bilateral air entry. Abdomen soft and bowel sounds are normal. Extremities without any cyanosis or clubbing. Lower extremity edema has improved to about 1+. Neurologically he is awake, but quite restless and moving constantly in the bed due to back pain. Today's labs show WBC count 11.1, hemoglobin 9.6 and hematocrit 29.8. Sodium 133, potassium 4.2, BUN 41 and creatinine 4.18. Glucose 110 and calcium 8.1. PROBLEMS: 1. End-stage renal disease. The patient was dialyzed yesterday and his next regular dialysis will be due tomorrow. 2. Shortness of breath and decompensated congestive heart failure. The patient is undergoing extra ultrafiltration today. We removed 3 liters of fluid yesterday and we are trying to remove another 2.5-3 liters today. However, the patient seems to be quite restless and might not complete his treatment. 3. Hyponatremia. This is mild and related to end-stage renal disease and congestive heart failure. It is likely to improve with fluid removal. Electrolytes should be checked again tomorrow morning. 4. Back pain. The patient has severe chronic back pain. He has been on oral morphine 15 mg twice a day and 30 mg at bedtime at home. He was given one dose of 15 mg by mouth, however, his pain is not improving. We ordered one dose of intravenous morphine of 4 mg in order to keep him still so he can complete his dialysis treatment. 5. Anemia. His anemia is mild and stable and does not need any urgent intervention.
--- NOTE | 2019-05-25 14:59 | REP ---
Portable chest, 04:01 a.m., single AP view with the patient sitting: Comparison is 04/25/2019. There is elevation of the right hemidiaphragm, unchanged. There is mild under aeration of the right base, unchanged. The lung gross otherwise clear. Cardiac size is upper normal for portable positioning, unchanged. There are sternotomy wires, unchanged. There is a neural stimulator at the mid thoracic level, unchanged. There is a new dual lumen right IJ central venous catheter with the tip in the superior vena cava as an interval change. There is no pneumothorax or pleural fluid collection. Impression: New right IJ dual lumen central venous catheter. No other interval change. No pneumothorax. Electronically Signed by Toni Ramirez MD 05/23/2019 07:35 A
--- NOTE | 2019-05-25 16:10 | IPNPDOC ---
Subjective Date Seen The patient was seen on 05/25/19. Time of service 2:30 PM Subjective Chief Complaint/HPI Dyspnea Events since last encounter The patient reports feeling much better today after second session of dialysis. Per discussion with nursing staff, his left upper extremity appears more swollen and arterial upper down at the bedside revealed diminished pulses. Objective Physical Examination Other physical findings PHYSICAL EXAMINATION: VITAL SIGNS: See below GENERAL APPEARANCE: Well-nourished, well-developed, does not appear anxious, is obese, sitting up in bed and just finished eating lunch HEENT: Head is normocephalic and atraumatic, lips not cyanotic, CARDIOVASCULAR: Heart has a regular rate and rhythm, there are no murmurs, rubs or gallops. There is a Port-A-Cath at the right upper chest LUNGS:, He is breathing normally, not using accessory muscles, and the breath sounds are diminished EXTREMITIES: Bilateral lotion when the edema has resolved, there is an AV fistula at the left upper extremity, the thrill is palpable, the arm is a bit more swollen than it was on admission, and there is extensive amount of bruising at the mid-lower arm SKIN: There is a postsurgical scar at the anterior aspect of the right knee. Assessment /Plan Assessment Mr. Mckeon is a 74-year-old male with a past medical history of ESRD on dialysis, diastolic dysfunction, CAD status post CABG, mitral valve prosthesis, pulmonary hypertension, yje-cwpkctr-xwfntlycw type 2 diabetes, history of bladder cancer, gout, restrictive lung disease, ABELARDO/OHS, and chronic back pain who will be admitted for management of fluid overload. PLAN 1. Multifactorial Dyspnea Secondary to fluid overload in the setting of ESRD and possibly acute diastolic heart failure. Dialysis schedule is F Echo report from March 2019. Reviewed yet at the time was 70%. There was mild pulmonary hypertension and left atrial dilatation along with aortic stenosis Has had 2 sessions this admission Plan: Dialysis per nephrology, continue with home antihypertensive and diuretics, f/u Is and Os and daily weights, restrict salt to 2 G and fluids to 2L 2. Leukocytosis - resolving Pt c/o of intermittent abd pain Plan: Monitor vitals, follow-up CBC, and UA if we can obtain a sample 3. Restrictive lung disease. Stable, the patient is not not wheezing Plan: Continue with home meds 4. Macrocytic anemia. Likely multifactorial in nature. Plan: Follow up CBC, iron studies, B12 and folate. 5. ABELARDO/OHS (not compliant with BiPAP) 6. Gou-srbyuds-fgnplzujs type 2 diabetes. Plan: Follow-up Accu-Cheks & A1C 7. Chronic CAD status post quadruple bypass. Plan: continue home meds. 8. Gout. Plan: Continue home meds. 9. Chronic back pain with spinal stimulator implant. Plan: Continue home meds. 10. Unsteady gait. Per discussion with the patient's , the patient was supposed to start outpatient physical therapy after his last hospital admission but they have not had time to set this up. Plan: Reconsult PT 11 Chronic Back Pain Plan: PT and c/w home meds 12.Anxiety Plan: c/w home meds 13.Obesity. BMI is 38.0. Plan: Follow-up with PCP to discuss diet. 14. Multiple comorbidities. I discussed the patient's CODE STATUS and the possibility of involving palliative care in the future with the patient's . Plan: The patient and his can follow-up with his PCP to discuss this further DVT prophylaxis with heparin. Disposition pending clinical course Plan/VTE VTE Prophylaxis Ordered?: Yes (heparin) VS, I&O, 24H, Fishbone Vital Signs/I&O Vital Signs Date Time Temp Pulse Resp B/P (MAP) Pulse Ox O2 Delivery O2 Flow Rate FiO2 05/25/19 12:48 20 92 05/25/19 12:34 90 108/60 05/25/19 12:00 97.5 05/25/19 12:00 1.0 05/25/19 06:00 Nasal Cannula I&O- Last 24 Hours up to 6 AM 05/25/19 05:59 Intake Total 1100 ml Output Total 3225 ml Balance -2125 ml Laboratory Data 24H LABS Laboratory Tests 2 05/24/19 16:32: Immature Granulocyte % (Auto) 3.6H, White Blood Count 12.5H, Red Blood Count 3.18L, Hemoglobin 9.9L, Hematocrit 31.4L, Mean Corpuscular Volume 98.7H, Mean Corpuscular Hemoglobin 31.1, Mean Corpuscular Hemoglobin Concent 31.5L, Red Cell Distribution Width 15.9H, Platelet Count 164, Neutrophils (%) (Auto) 80.7H, Lymphocytes (%) (Auto) 7.3L, Monocytes (%) (Auto) 7.6H, Eosinophils (%) (Auto) 0.6, Basophils (%) (Auto) 0.2, Neutrophils # (Auto) 10.1H, Lymphocytes # (Auto) 0.9L, Monocytes # (Auto) 1.0H, Eosinophils # (Auto) 0.1, Basophils # (Auto) 0.0, Nucleated Red Blood Cells % (auto) 0.0, Anion Gap 7L, Glomerular Filtration Rate 19.4L, Blood Urea Nitrogen 28#H, Creatinine 3.33H, Sodium Level 137, Potassium Level 4.5, Chloride Level 99, Carbon Dioxide Level 31, Calcium Level 8.5L, Magnesium Level 2.4 05/24/19 17:05: Bedside Glucose (Misc Panel) 156H 05/24/19 21:06: Bedside Glucose (Misc Panel) 156H 05/25/19 05:25: Immature Granulocyte % (Auto) 3.2H, White Blood Count 11.1H, Red Blood Count 2.97L, Hemoglobin 9.6L, Hematocrit 29.8L, Mean Corpuscular Volume 100.3H, Mean Corpuscular Hemoglobin 32.3, Mean Corpuscular Hemoglobin Concent 32.2, Red Cell Distribution Width 15.7H, Platelet Count 155, Neutrophils (%) (Auto) 72.6H, Lymphocytes (%) (Auto) 13.2L, Monocytes (%) (Auto) 9.4H, Eosinophils (%) (Auto) 1.2, Basophils (%) (Auto) 0.4, Neutrophils # (Auto) 8.1H, Lymphocytes # (Auto) 1.5, Monocytes # (Auto) 1.1H, Eosinophils # (Auto) 0.1, Basophils # (Auto) 0.0, Nucleated Red Blood Cells % (auto) 0.0, Anion Gap 6L, Glomerular Filtration Rate 14.9L, Blood Urea Nitrogen 41H, Creatinine 4.18H, Sodium Level 133L, Potassium Level 4.2, Chloride Level 97L, Carbon Dioxide Level 30, Calcium Level 8.1L 05/25/19 12:52: Bedside Glucose (Misc Panel) 114H CBC/BMP Laboratory Tests 05/24/19 16:32 Red Blood Count 3.18 L, Mean Corpuscular Volume 98.7 H, Mean Corpuscular Hemoglobin 31.1, Mean Corpuscular Hemoglobin Concent 31.5 L, Red Cell Distribution Width 15.9 H, Neutrophils (%) (Auto) 80.7 H, Lymphocytes (%) (Auto) 7.3 L, Monocytes (%) (Auto) 7.6 H, Eosinophils (%) (Auto) 0.6, Basophils (%) (Auto) 0.2, Neutrophils # (Auto) 10.1 H, Lymphocytes # (Auto) 0.9 L, Monocytes # (Auto) 1.0 H, Eosinophils # (Auto) 0.1, Basophils # (Auto) 0.0, Calcium Level 8.5 L 05/25/19 05:25 Red Blood Count 2.97 L, Mean Corpuscular Volume 100.3 H, Mean Corpuscular Hemoglobin 32.3, Mean Corpuscular Hemoglobin Concent 32.2, Red Cell Distribution Width 15.7 H, Neutrophils (%) (Auto) 72.6 H, Lymphocytes (%) (Auto) 13.2 L, Monocytes (%) (Auto) 9.4 H, Eosinophils (%) (Auto) 1.2, Basophils (%) (Auto) 0.4, Neutrophils # (Auto) 8.1 H, Lymphocytes # (Auto) 1.5, Monocytes # (Auto) 1.1 H, Eosinophils # (Auto) 0.1, Basophils # (Auto) 0.0, Calcium Level 8.1 L ALEX GONZALEZ MD May 25, 2019 16:10
--- NOTE | 2019-05-25 16:29 | CR.PDOC ---
General Date of Consultation: May 25, [address] Copeland HPI: 74 year old M with ESRD, currently dialyzing through right chest PermCath. Recently status post fistulogram 05/11/19. The patient states his AV fistula in the left upper extremity has been accessed twice for dialysis. Last access was last week per patient. He had some bruising of the upper arm following dialysis. Yesterday he noticed sudden onset of left upper extremity forearm wrist and hand pain. It was an achy pain. He also had pain with touch when his was touching his wrist area. Pulses were noted to be reduced in the left upper extremity. Patient states he had another episode of pain which lasted approximately 30 minutes and resolved. Currently he states he is not having any left upper extremity pain, weakness, paresthesia. Vascular surgery is consulted to further assess AV fistula Denies any fevers, chills, weakness, fatigue, Headache, Chest Pain, Shortness of breath, cough, palpitations, abdominal pain, N/V/D or changes in bowel or bladder habits. PAST MEDICAL HISTORY: 1. Coronary artery disease status post CABG. 2. Bladder cancer. 3. Obstructive sleep apnea and noncompliant with CPAP 4. Diabetes mellitus 5. Congestive heart failure with preserved ejection fraction 6. Bioprosthetic mitral valve replacement 7. Gout 8. Anemia. 9. Anxiety 10. COPD PAST SURGICAL HISTORY: 1. Left upper extremity AV fistula placement. Status post fistulogram 05/11/19 2. CABG. 3. Knee replacement 4. Elbow surgery 5. Spinal stimulator implantation 6. Numerous bladder surgeries 7. Mitral valve replacement SOCIAL HISTORY: Marital status: . Tobacco use: Former smoker FAMILY HISTORY: Mother: Diabetes ROS: As noted in HPI, otherwise 11pt ROS of systems reviewed and unremarkable. PE: GEN: 74yoM, appears stated age. Well-nourished, well developed. No acute distress. Alert and oriented x 3. Pleasant, interactive. HEENT: Normocephalic, atraumatic. Moist mucous membranes. Dentition fair. CHEST: Regular rate and rhythm, +S1, +S2 LUNGS: Clear to auscultation bilaterally. No wheezes, rales, or rhonchi. B reathing appears symmetric and easy. ABD: Round, soft, non-tender, non-distended. +Bowel sounds throughout. EXT: Right upper extremity radial and ulnar pulse is palpable and triphasic with Doppler, left upper extremity radial and ulnar pulses noted to be monophasic with Doppler. The left hand feels slightly cooler than the right hand. No lower extremity edema appreciated. SKIN: Capillary refill 3 sec. No rashes. NEURO: Alert and oriented x 3. Cranial nerves III-XII are intact. No focal deficits appreciated. A&P: Left upper extremity AV fistula Patient with intermittent left upper extremity pain and reduced pulses left radial and ulnar. Patient denies any pain, weakness, or paresthesia currently. Reviewed with Dr. Copeland. Possible vascular steal phenomenon related to the patient's AV fistula, tentative plan to further assess with fistulogram 05/26/19. DVT prophylaxis. Subcutaneous heparin. Mike Spears was the attending vascular surgeon for this patient encounter. The patient was seen, examined, interviewed and evaluated independently by Dr. Stephan Copeland M.D. Dr. Stephan Copeland M.D. was fully available during the consultation evaluation. All aspects of the patient interview, examination, medical decision making process, and medical care plan development were reviewed and approved by Dr. Stephan Copeland M.D. The Dr. Stephan Copeland M.D. is aware and concurs with the plan as stated in the body of this note and will attest to such by his/her cosignature. Patient is a 74-year-old male with end-stage renal disease who currently dialyzes through a right internal jugular vein tunneled central venous catheter. The patient underwent creation of a left brachiocephalic arteriovenous fistula which subsequently underwent angiography and venography for difficulty with cannulation of the fistula. He fistula Rafael showed good size to the cephalic vein in the left upper arm but there were a large number of collaterals diverting blood flow away from the main outflow Channel making the cannulation difficult. The patient underwent caudal embolization of a large side branch. The patient continues to have difficulty with cannulation of the fistula with hematoma formation and extravasation during attempted cannulation. The patient recently began complaining of left forearm and hand numbness tingling and pain. The fistula has a strong thrill which is holosystolic. There are nonpalpable pulses in the radial and ulnar distribution at the wrist. The capillary refill in the left hand is greater than 4 seconds. Plan will be for the patient to undergo a fistulogram with left upper extremity arteriogram to evaluate for possible steal syndrome. Vital Signs/I&O Vital Signs Date Time Temp Pulse Resp B/P (MAP) Pulse Ox O2 Delivery O2 Flow Rate FiO2 05/25/19 12:48 20 92 05/25/19 12:34 90 108/60 05/25/19 12:00 97.5 05/25/19 12:00 1.0 05/25/19 06:00 Nasal Cannula I&O- Last 24 Hours up to 6 AM 05/25/19 05:59 Intake Total 1100 ml Output Total 3225 ml Balance -2125 ml Laboratory Data Labs 24H Laboratory Tests 2 05/24/19 16:32: Immature Granulocyte % (Auto) 3.6H, White Blood Count 12.5H, Red Blood Count 3.18L, Hemoglobin 9.9L, Hematocrit 31.4L, Mean Corpuscular Volume 98.7H, Mean Corpuscular Hemoglobin 31.1, Mean Corpuscular Hemoglobin Concent 31.5L, Red Cell Distribution Width 15.9H, Platelet Count 164, Neutrophils (%) (Auto) 80.7H, Lymphocytes (%) (Auto) 7.3L, Monocytes (%) (Auto) 7.6H, Eosinophils (%) (Auto) 0.6, Basophils (%) (Auto) 0.2, Neutrophils # (Auto) 10.1H, Lymphocytes # (Auto) 0.9L, Monocytes # (Auto) 1.0H, Eosinophils # (Auto) 0.1, Basophils # (Auto) 0.0, Nucleated Red Blood Cells % (auto) 0.0, Anion Gap 7L, Glomerular Filtration Rate 19.4L, Blood Urea Nitrogen 28#H, Creatinine 3.33H, Sodium Level 137, Potassium Level 4.5, Chloride Level 99, Carbon Dioxide Level 31, Calcium Level 8.5L, Magnesium Level 2.4 05/24/19 17:05: Bedside Glucose (Misc Panel) 156H 05/24/19 21:06: Bedside Glucose (Misc Panel) 156H 05/25/19 05:25: Immature Granulocyte % (Auto) 3.2H, White Blood Count 11.1H, Red Blood Count 2.97L, Hemoglobin 9.6L, Hematocrit 29.8L, Mean Corpuscular Volume 100.3H, Mean Corpuscular Hemoglobin 32.3, Mean Corpuscular Hemoglobin Concent 32.2, Red Cell Distribution Width 15.7H, Platelet Count 155, Neutrophils (%) (Auto) 72.6H, Lymphocytes (%) (Auto) 13.2L, Monocytes (%) (Auto) 9.4H, Eosinophils (%) (Auto) 1.2, Basophils (%) (Auto) 0.4, Neutrophils # (Auto) 8.1H, Lymphocytes # (Auto) 1.5, Monocytes # (Auto) 1.1H, Eosinophils # (Auto) 0.1, Basophils # (Auto) 0.0, Nucleated Red Blood Cells % (auto) 0.0, Anion Gap 6L, Glomerular Filtration Rate 14.9L, Blood Urea Nitrogen 41H, Creatinine 4.18H, Sodium Level 133L, Potassium Level 4.2, Chloride Level 97L, Carbon Dioxide Level 30, Calcium Level 8.1L 05/25/19 12:52: Bedside Glucose (Misc Panel) 114H CBC/BMP Laboratory Tests 05/24/19 16:32 Red Blood Count 3.18 L, Mean Corpuscular Volume 98.7 H, Mean Corpuscular Hemoglobin 31.1, Mean Corpuscular Hemoglobin Concent 31.5 L, Red Cell Distribution Width 15.9 H, Neutrophils (%) (Auto) 80.7 H, Lymphocytes (%) (Auto) 7.3 L, Monocytes (%) (Auto) 7.6 H, Eosinophils (%) (Auto) 0.6, Basophils (%) (Auto) 0.2, Neutrophils # (Auto) 10.1 H, Lymphocytes # (Auto) 0.9 L, Monocytes # (Auto) 1.0 H, Eosinophils # (Auto) 0.1, Basophils # (Auto) 0.0, Calcium Level 8.5 L 05/25/19 05:25 Red Blood Count 2.97 L, Mean Corpuscular Volume 100.3 H, Mean Corpuscular Hemoglobin 32.3, Mean Corpuscular Hemoglobin Concent 32.2, Red Cell Distribution Width 15.7 H, Neutrophils (%) (Auto) 72.6 H, Lymphocytes (%) (Auto) 13.2 L, Monocytes (%) (Auto) 9.4 H, Eosinophils (%) (Auto) 1.2, Basophils (%) (Auto) 0.4, Neutrophils # (Auto) 8.1 H, Lymphocytes # (Auto) 1.5, Monocytes # (Auto) 1.1 H, Eosinophils # (Auto) 0.1, Basophils # (Auto) 0.0, Calcium Level 8.1 L Allergies Coded Allergies: aspirin (Verified Allergy, Severe, LIPS SWELL, 03/29/19) Penicillins (Verified Allergy, Intermediate, RASH, 04/15/19) ampicillin (Verified Allergy, Intermediate, HIVES, 03/17/19) ceftriaxone (Verified Allergy, Unknown, UNKNOWN REACTION, 04/09/19) Home Medications Scheduled Ascorbic Acid (Ascorbic Acid) 500 Mg Tablet, 500 MG PO DAILY, (Reported) Atorvastatin Calcium (Atorvastatin Calcium) 20 Mg Tablet, 20 MG PO QHS, (Reported) Calcitriol (Calcitriol) 0.25 Mcg Capsule, 0.25 MCG PO Q2D, (Reported) AT BEDTIME Calcium Carbonate/Vitamin D3 (Calcium 600-Vit D3 800 Tablet) 1 Each Tablet, 1 TAB PO DAILY, (Reported) Carvedilol (Carvedilol) 6.25 Mg Tablet, 6.25 MG PO BID, (Reported) Cetirizine HCl (Cetirizine HCl) 10 Mg Tablet, 10 MG PO QHS, (Reported) Clopidogrel Bisulfate (Clopidogrel) 75 Mg Tablet, 75 MG PO DAILY, (Reported) Docusate Sodium (Docusate Sodium) 100 Mg Capsule, 100 MG PO BID, (Reported) Febuxostat (Uloric) 80 Mg Tablet, 80 MG PO Q2D, (Reported) AT BEDTIME Lactobacillus Acidophilus (Probiotic) 1 Each Capsule, 1 CAP PO QHS, (Reported) Morphine Sulfate (Morphine Sulfate) 15 Mg Tablet, 15 MG PO BID, (Reported) Multivitamins (Thera M Plus Tablet) 1 Each Tablet, 1 TAB PO DAILY, (Reported) Naldemedine Tosylate (Symproic) 0.2 Mg Tablet, 0.2 MG PO DAILY, (Reported) Paroxetine HCl (Paroxetine HCl) 20 Mg Tablet, 20 MG PO QHS, (Reported) Prednisone (Prednisone) 1 Mg Tablet, 6 MG PO DAILY, (Reported) Ranitidine Hcl (Ranitidine HCl) 150 Mg Tablet, 1 TAB PO DAILY, (Reported) Spironolactone (Spironolactone) 25 Mg Tablet, 25 MG PO QPM, (Reported) TAKES AROUND 1800 Tiotropium [place] (Spiriva Respimat) 4 Gm Mist.inhal, 2 PUFFS INH DAILY, (Reported) Torsemide (Torsemide) 100 Mg Tablet, 100 MG PO DAILY, (Reported) Ubidecarenone (Coq-10) 100 Mg Capsule, 100 MG PO BID, (Reported) Scheduled PRN Albuterol Sulf (Albuterol Sulfate) 2.5 Mg/3 Ml Vial.neb, 2.5 MG INH Q2H PRN for SOB/WHEEZING, (Reported) Albuterol Sulfate (Proair Hfa) 8.5 Gm Hfa.aer.ad, 2 PUFF INH QID PRN for SHORTNESS OF BREATH, (Reported) Alprazolam (Alprazolam) 0.25 Mg Tablet, 0.25 MG PO TID PRN for ANXIETY, (Reported) Hydroxyzine HCl (Hydroxyzine HCl) 25 Mg Tablet, 25 MG PO TID PRN for ITCHING, (Reported) Gabi Kuhn May 25, 2019 16:29 Naeem Copeland MD May 26, 2019 10:42
[2019-05-25 17:30] LABS: PERCENT SATURATION 13.3 % (19.7-50.0)
[2019-05-25] MEDS: SPIRONOLACTONE 25 MG TAB PO SCH (18:12)
[2019-05-25] MEDS: **NOTE PATIENT COMMENT** MISC XX SCH (21:00)
[2019-05-25] MEDS: PARoxetine 20 MG TAB PO SCH (21:08)
[2019-05-25] MEDS: FEBUXOSTAT 40 MG TABLET (ULORIC) PO SCH (21:09)
[2019-05-25] MEDS: CALCITRIOL 0.25 MCG CAP (S0169) PO SCH (21:09)
[2019-05-25] MEDS: ATORVASTATIN 20 MG TAB PO SCH (21:09)
[2019-05-25] MEDS: CETIRIZINE (ZyrTEC) 10 MG TAB PO SCH (21:09)
[2019-05-25] MEDS ORDERED: **NOTE PATIENT COMMENT** MISC XX PRN (22:48)
[2019-05-25] MEDS ORDERED: LIDOCAINE 5% (LIDODERM) PATCH TD ONE (23:00)
[2019-05-26] VITALS (20 sets, daily range): BP systolic 102–172; BP diastolic 52–88; O2SAT 89–99
[2019-05-26 05:48] LABS: BASO # 0.1 10^3/uL (0.0-0.2); BASO % 0.7 % (0.0-1.0); EOS # 0.2 10^3/uL (0.0-0.50); EOS % 1.2 % (0.0-3.0); HEMOGLOBIN 10.6 g/dl (13.5-17.5); LYMPH # 2.1 10^3/uL (1.5-4.5); MEAN CORPUSCULAR HEMOGLOBIN 31.5 pg (27.0-33.0); MEAN CORPUSCULAR HGB CONC 30.3 g/dl (32.0-36.5); MEAN CORPUSCULAR VOLUME 104.2 fl (80.0-96.0); MONO # 1.2 10^3/uL (0.0-0.8); MONO % 8.4 % (0.0-5.0); PLATELET COUNT, AUTOMATED 176 10^3/uL (150-450); RED BLOOD COUNT 3.36 10^6/uL (4.30-6.10)
[2019-05-26] MEDS: predniSONE 1 MG TAB PO SCH (06:06)
[2019-05-26] MEDS: MORPHINE 30 MG TAB **MSIR PO SCH ×3 (06:09→21:10)
[2019-05-26] MEDS: MULTIVITAMINS/MINERALS THERAP 1 TAB PO SCH (06:09)
[2019-05-26] MEDS: CLOPIDOGREL 75 MG TAB PO SCH (06:09)
[2019-05-26] MEDS: HEPARIN SOD (PORCINE) 5000 UNITS/ML VIAL SC SCH ×3 (06:10→21:11)
[2019-05-26] MEDS: SLF 3 ML SYR IV SCH ×3 (06:10→21:12)
[2019-05-26 06:30] LABS: CREATININE FOR GFR 4.81 MG/DL (0.70-1.30); GLOMERULAR FILTRATION RATE 12.7 (>42); POTASSIUM SERUM 4.5 MEQ/L (3.5-5.1)
[2019-05-26] MEDS: TIOTROPIUM INHALER/CAPSULE (SPIRIVA) INH SCH (07:45)
[2019-05-26] MEDS: TORSEMIDE 100 MG TAB PO SCH (09:00)
[2019-05-26] MEDS: CARVedilol 6.25 MG TAB PO SCH ×2 (09:00→21:11)
[2019-05-26] MEDS ORDERED: fentaNYL 100 MCG/2 ML INJECTION (J3010) As Ordered ONE (09:17)
[2019-05-26] MEDS ORDERED: BUPIVACAINE HCL 0.5% 10 ML VIAL As Ordered ONE (09:17)
[2019-05-26] MEDS ORDERED: diphenhydrAMINE INJ 50MG/ML VIAL (J1200) As Ordered ONE (09:17)
[2019-05-26] MEDS ORDERED: MIDAZOLAM INJ 2 MG/2 ML VIAL (J2250) As Ordered ONE (09:18)
[2019-05-26] MEDS ORDERED: LIDOCAINE 2% MDV 20 ML VIAL As Ordered ONE (09:18)
[2019-05-26] MEDS ORDERED: ISOVUE-300 61% 50ML VIAL (Q9967) As Ordered ONE (09:18)
[2019-05-26] MEDS ORDERED: **NOTE PATIENT COMMENT** MISC XX ONE (11:00)
--- NOTE | 2019-05-26 11:06 | IPNPDOC ---
Date Seen The patient was seen on 05/26/19. Progress Note Consultation Vascular surgery. Dr. Copeland HPI: 74 year old M with ESRD, currently dialyzing through right chest PermCath. Recently status post fistulogram 05/11/19. The patient states his AV fistula in the left upper extremity has been accessed twice for dialysis. Last access was last week per patient. He had some bruising of the upper arm following dialysis. 05/24/19 he noticed sudden onset of left upper extremity forearm wrist and hand pain. It was an achy pain. He also had pain with touch when his was touching his wrist area. Pulses were noted to be reduced in the left upper extremity. Patient states he had another episode of pain which lasted approximately 30 minutes and resolved. Vascular surgery was consulted to further assess AV fistula This AM he states he is not having any left upper extremity pain, weakness, paresthesia. Denies any fevers, chills, weakness, fatigue, Headache, Chest Pain, Shortness of breath, cough, palpitations, abdominal pain, N/V/D or changes in bowel or bladder habits. PAST MEDICAL HISTORY: 1. Coronary artery disease status post CABG. 2. Bladder cancer. 3. Obstructive sleep apnea and noncompliant with CPAP 4. Diabetes mellitus 5. Congestive heart failure with preserved ejection fraction 6. Bioprosthetic mitral valve replacement 7. Gout 8. Anemia. 9. Anxiety 10. COPD PAST SURGICAL HISTORY: 1. Left upper extremity AV fistula placement. Status post fistulogram 05/11/19 2. CABG. 3. Knee replacement 4. Elbow surgery 5. Spinal stimulator implantation 6. Numerous bladder surgeries 7. Mitral valve replacement PE: GEN: 74yoM, appears stated age. Alert and oriented x 3. HEENT: Normocephalic, atraumatic. Moist mucous membranes. CHEST: Regular rate and rhythm, +S1, +S2 LUNGS: Clear to auscultation bilaterally. No wheezes, rales, or rhonchi. ABD: Round, soft, non-tender, non-distended. EXT: Thrill noted over AVF LUE. The left hand feels warm, no TTP. No lower extremity edema appreciated. SKIN: Capillary refill 3 sec. No rashes. NEURO: Alert and oriented x 3. Cranial nerves III-XII are intact. No focal defi cits appreciated. A&P: Left upper extremity AV fistula Patient with intermittent left upper extremity pain and reduced pulses left radial and ulnar. Patient denies any pain, weakness, or paresthesia currently. The pt is reviewed and examined as per Dr. Copeland. Possible vascular steal syndrome related to the patient's AV fistula, tentative plan to further assess with fistulogram 05/26/19 AM. DVT prophylaxis. Subcutaneous heparin. 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 The patient has a large number of collaterals originating off the fistula which are continued into the steal syndrome. Patient also has severe calcified atherosclerotic disease of his radial ulnar and interosseous vessels which are contributing to the steal syndrome. Patient has previously undergone fistulogram with coil embolization of a large side branch which is still patent. PLAN: Patient will require ligation of the large side branches originating off of the fistula and feeding into the deeper venous system. Patient will be scheduled in the vascular interventional suite for a repeat fistulogram, angiogram and ligation of the large side branches in an attempt to resolve the steal syndrome. If the symptoms do not improve and perfusion does not approved improve with ligation of the large side branches the patient will require ligation of the arteriovenous fistula creation of an access at a different location. Mike Spears was the attending vascular surgeon for this patient encounter. The patient was seen, examined, interviewed and evaluated independently by Dr. Stephan Copeland M.D. Dr. Stephan Copeland M.D. was fully available during the consultation evaluation. All aspects of the patient interview, examination, medical decision making process, and medical care plan development were reviewed and approved by Dr. Stephan Copeland M.D. Dr. Stephan Copeland M.D. is aware and concurs with the plan as stated in the body of this note and will attest to such by his/her cosignature. The patient was seen on 05/26/19 at 09:14. VS, I&O, 24H, Fishbone Vital Signs/I&O Vital Signs Date Time Temp Pulse Resp B/P (MAP) Pulse Ox O2 Delivery O2 Flow Rate FiO2 05/26/19 10:13 84 18 99 2 05/26/19 09:08 97.4 05/26/19 08:00 102/52 (69) 05/26/19 06:00 Nasal Cannula I&O- Last 24 Hours up to 6 AM 05/26/19 05:59 Intake Total 1240 ml Output Total 1000 ml Balance 240 ml Laboratory Data 24H LABS Laboratory Tests 2 05/25/19 12:52: Bedside Glucose (Misc Panel) 114H 05/25/19 16:47: Iron Level 38L, Total Iron Binding Capacity 286, Transferrin % Saturation 13.3L 05/25/19 19:04: Bedside Glucose (Misc Panel) 231H 05/25/19 21:57: Bedside Glucose (Misc Panel) 121H 05/26/19 05:24: Immature Granulocyte % (Auto) 3.7H, White Blood Count 14.0H, Red Blood Count 3.36L, Hemoglobin 10.6L, Hematocrit 35.0L, Mean Corpuscular Volume 104.2H, Mean Corpuscular Hemoglobin 31.5, Mean Corpuscular Hemoglobin Concent 30.3L, Red Cell Distribution Width 15.9H, Platelet Count 176, Neutrophils (%) (Auto) 71.0H, Lymphocytes (%) (Auto) 15.0L, Monocytes (%) (Auto) 8.4H, Eosinophils (%) (Auto) 1.2, Basophils (%) (Auto) 0.7, Neutrophils # (Auto) 10.0H, Lymphocytes # (Auto) 2.1, Monocytes # (Auto) 1.2H, Eosinophils # (Auto) 0.2, Basophils # (Auto) 0.1, Nucleated Red Blood Cells % (auto) 0.0 05/26/19 05:47: Anion Gap 10, Glomerular Filtration Rate 12.7L, Blood Urea Nitrogen 61H, Creatinine 4.81H, Sodium Level 134L, Potassium Level 4.5, Chloride Level 96L, Carbon Dioxide Level 28, Calcium Level 8.0L, Iron Level 55L, Ferritin 552H CBC/BMP Laboratory Tests 05/26/19 05:24 Red Blood Count 3.36 L, Mean Corpuscular Volume 104.2 H, Mean Corpuscular Hemoglobin 31.5, Mean Corpuscular Hemoglobin Concent 30.3 L, Red Cell Distribution Width 15.9 H, Neutrophils (%) (Auto) 71.0 H, Lymphocytes (%) (Auto) 15.0 L, Monocytes (%) (Auto) 8.4 H, Eosinophils (%) (Auto) 1.2, Basophils (%) (Auto) 0.7, Neutrophils # (Auto) 10.0 H, Lymphocytes # (Auto) 2.1, Monocytes # (Auto) 1.2 H, Eosinophils # (Auto) 0.2, Basophils # (Auto) 0.1 05/26/19 05:47 Calcium Level 8.0 L Gabi Kuhn May 26, 2019 11:06 Naeem Copeland MD May 26, 2019 11:24
--- NOTE | 2019-05-26 11:12 | ROOPDOC ---
[facility] Report Of Operation Report of Operation DATE OF PROCEDURE: 05/26/2019 PREOPERATIVE DIAGNOSIS: End-stage renal disease. Dysfunctional left brachiocephalic arteriovenous fistula. Left forearm, hand and finger pain with decreased perfusion of the left distal upper extremity. POSTOPERATIVE DIAGNOSIS: End-stage renal disease. Dysfunctional left brachiocephalic arteriovenous fistula. Left forearm, hand and finger pain with decreased perfusion of the left distal upper extremity. Steal syndrome. PROCEDURE: Left brachiocephalic arteriovenous fistulogram. Selective left brachial artery catheter placement with angiogram. Selective left axillary artery catheter placement with angiogram. Selective left subclavian artery catheter placement with angiogram. Selective aortic arch catheter placement with angiogram. SURGEON: Dr. Rosalie Copeland M.D. CORPORATE DIRECTOR OF PHARMACY: Cecille Gunderson INDICATION: Patient is a 74-year-old male with end-stage renal disease who dialyzes through a right internal jugular vein tunneled central venous catheter and to underwent creation of a left brachiocephalic arteriovenous fistula. Pat ient has had difficulty with cannulation of the left brachiocephalic arteriovenous fistula and has subsequently undergone a fistulogram with coil embolization of a large side branch. The patient has now developed left forearm hand and finger pain and has decreased perfusion compared to the right upper extremity. Patient has nonpalpable pulses at the ulnar and radial distribution in the left wrist. The patient's capillary refill is greater than 4 seconds in the left hand and finger region. Patient will undergo a left brachiocephalic arteriovenous fistulogram with selective arterial catheterization with angiography to evaluate for steal syndrome. Procedure was explained and described to the patient in detail. Risks, benefits and alternative treatment options were discussed with the patient. Benefits included but were not limited to ascertaining the etiology of the left arm and hand symptoms with possible intervention for resolution of the symptoms. Alternative treatment options included but were not limited to no intervention. Risks included but were not limited to infection, bleeding, loss of arteriovenous access, steal syndrome, possible need for open surgical intervention, anesthetic complications, allergic reaction or complication from the prepping and draping materials, pain, allergic reaction or complication from the contrast media, scarring of the skin, hematoma formation, bruising, possible need for transfusion of blood products, cerebrovascular accident, myocardial infarction, pulmonary embolus, deep venous thrombosis, loss of limb, loss of life , poor results and poor outcome. Risks of not performing the procedure included but were not limited to worsening of the symptoms, with loss of function of the left arm and hand and possibly loss of limb. Patient's questions were answered. Patient voices understanding of these risks, benefits and alternative treatment options. Patient voices acceptance of these risks associated with the procedure and consents to proceed with a fistulogram with selective arterial angiography with possible intervention. There were no promises or guarantees made to the patient regarding the procedure, results of the procedure and/or outcome of the procedure. ANESTHESIA: Local with 10 mL of 2% lidocaine mixed with 0.5% Marcaine SEDATION TIME: No sedation was given. ESTIMATED BLOOD LOSS: 5 mL. IV FLUIDS: 50 mL. HEPARIN: None PROTAMINE: None FLUORO TIME: 0.2 minutes CONTRAST: 4 mL. of isovue 300 COMPLICATIONS: None DRAINS: None. SPECIMENS: None. IMPLANTS: None PROCEDURE: Patient was taken to the angiography suite, placed supine on the angiography room table and then prepped and draped in a standard surgical fashion. A procedural time-out was conducted by myself and the team members involved in the procedure confirming the correct patient, procedure and laterality. The left brachiocephalic arteriovenous fistulas and then cannulated with a micro-puncture needle after anesthetizing the overlying skin and subcutaneous tissue with 2% lidocaine mixed with 0.5% Marcaine. A micropuncture wire was advanced through the micropuncture needle which was up-sized to a micropuncture sheath. An angled Glidewire was advanced to the micropuncture sheath. A burn catheter and the angled Glidewire were then used to traverse through the arterial venous fistula and entered to the brachial artery in a retrograde fashion. A selective brachial artery angiogram and fistulogram was then performed. The catheter remained in the brachial artery and a left forearm and hand angiogram was performed with compression of the arteriovenous fistula with the catheter placed selectively in the left brachial artery. The catheter was then moved into the axillary artery and a selective axillary artery into gram was performed. The catheter was then advanced into the subclavian artery and a selective subclavian artery angiogram was performed. The catheter was advanced into the aortic arch just distal to the takeoff of the subclavian artery and an aortic arch angiogram was performed. The catheter was removed and manual compression applied at the puncture site for hemostasis. Dressings were then applied. Patient tolerated the procedure well. There were no complications. All instrument, sponge and needle counts were correct at the end of the case. Dr. Copeland was present for and directed the entire case. Patient was transferred to the recovery area and subsequently discharged to the floor in stable condition. RADIOLOGIC SUPERVISION AND INTERPRETATION: The initial brachial artery angiogram with runoff and fistulogram showed the brachial artery to be widely patent with minimal flow noted angiographically distal to the arteriovenous anastomosis. There was some mild narrowing at the arterial venous anastomosis. The arteriovenous anastomosis was just proximal to the bifurcation of the radial and ulnar arteries. The fistulogram showed the cephalic vein to be widely patent to the central venous system with no central venous stenosis or occlusion noted. There were large collaterals originating off of the cephalic vein along its course and coursing into the deeper venous system. The brachial artery angiogram with compression of the fistula showed improved flow into the brachial artery distal to the arterial venous anastomosis with filling of the radial ulnar and interosseous arteries. These vessels were patent and noted to be calcified. The previously coiled side branch showed continued flow around the collateral and through the side branch into the deeper venous system. The selective axillary, subclavian and aortic arch angiogram showed no stenosis or abnormality. CONCLUSION: Patient is a 74-year-old male with a left brachiocephalic arteriovenous fistula and angiographic evidence of steal syndrome with malperfusion of the left hand. The patient has a large number of collaterals originating off cephalic vein diverting flow away from the main outflow Channel of the fistula and into the deeper venous system which results in difficulty with cannulation and increased flow through the fistula which is causing steal syndrome in the left forearm hand and fingers. PLAN: Patient will require ligation of the side branch veins originating off the cephalic vein in an attempt to maintain patency of the arteriovenous fistula and increased blood flow to the left forearm hand and fingers. The patient will require ligation of the arteriovenous fistula if there is no improvement of the perfusion of the left hand with ligation of the side branch veins originating off the cephalic vein. Naeem Copeland MD May 26, 2019 11:12
[2019-05-26] MEDS ORDERED: HEPARIN 1,000 UNITS/ML 10ML VIAL (FOR RADIOLOGY& DIALYSIS ONLY) IV ONE (11:30)
[2019-05-26] MEDS ORDERED: HEPARIN 1,000 UNITS/ML 10ML VIAL (FOR RADIOLOGY& DIALYSIS ONLY) XX ONE (11:30)
--- NOTE | 2019-05-26 12:14 | IPN ---
DATE: 05/26/2019 Mr. Mckeon is seen this morning on his bedside. He just returned from interventional radiology after angiogram of his left arm AV fistula. He did not require any angioplasty. The patient was ultrafiltrated yesterday. He has severe back pain requiring intravenous morphine. He did not complete his 3-hour session. However, we were able to remove about 2 liters of fluid. His dyspnea has improved significantly. He denies any nausea or vomiting. Today is his regular dialysis day. PHYSICAL EXAMINATION: The patient is awake and alert and without any acute distress. Temperature is 97.4 degrees Fahrenheit, heart rate 86 per minute and respiratory rate 18 per minute. Blood pressure 102/52 mmHg and oxygen saturation 98%. His head is atraumatic. Neck is supple and without jugular venous distention (JVD) or thyroid enlargement. Heart sounds are regular and lungs with slightly diminished breath sounds. Abdomen: Soft and nontender and bowel sounds are normal. Extremities have no cyanosis or clubbing. Left arm AV fistula is patent. Dressing is intact without any bleeding at this site of his angiogram. Today's labs show WBC count 14.0, hemoglobin 10.6 and hematocrit 35. Sodium 134, potassium 4.5, CO2 28, BUN 61 and creatinine 4.81. Calcium is 8.0. PROBLEMS: 1. End-stage renal disease. The patient is regularly dialyzed on Friday, Friday and Friday schedule. We will plan to dialyze him this afternoon. 2. Shortness of breath and congestive heart failure. The patient had volume overload and he was dialyzed on Friday and ultrafiltration yesterday. Today is his regular dialysis treatment and we will try to remove about 2-3 liters of fluid as tolerated. 3. Back pain. The patient has chronic severe back pain for which he has been taking oral morphine at home. Yesterday his pain was much worse and required two doses of intravenous morphine in addition to oral. Today he feels much better. I have advised the nursing staff to medicate him before his dialysis treatment. 4. Chronic obstructive pulmonary disease (COPD). He is feeling better now and should continue with his chronic treatment. 5. Anemia. Anemia is stable and does not need any urgent intervention. DISPOSITION: The patient is likely to be ready for discharge tomorrow. It remains to be seen how he tolerates his dialysis today.
--- NOTE | 2019-05-26 16:19 | IPNPDOC ---
Subjective Date Seen The patient was seen on 05/26/19. Time of service 3:25 PM Subjective Chief Complaint/HPI dyspnea Events since last encounter the patient had a fistulogram this morning and didnt' require angioplasty. He reports that his shortness of breath is much better and based on his discussion with Dr. Hope, he will have dialysis this evening and go home tomorrow. Objective Physical Examination Other physical findings PHYSICAL EXAMINATION: VITAL SIGNS: See below GENERAL APPEARANCE: Well-nourished, well-developed, does not appear anxious, is obese, sitting up in a chair HEENT: Head is normocephalic and atraumatic, lips not cyanotic, CARDIOVASCULAR: Heart has a regular rate and rhythm, there are no murmurs, rubs or gallops. There is a Port-A-Cath at the right upper chest LUNGS:, He is breathing normally, not using accessory muscles, and the breath sounds are diminished EXTREMITIES: The bilateral lower extremity edema has resolved, there is an AV fistula at the left upper extremity, the thrill is palpable, and there is extensive amount of bruising at the mid-lower arm SKIN: There is a postsurgical scar at the anterior aspect of the right knee. Assessment /Plan Assessment Mr. Mckeon is a 74-year-old male with a past medical history of ESRD on dialysis, diastolic dysfunction, CAD status post CABG, mitral valve prosthesis, pulmonary hypertension, [id number] type 2 diabetes, history of bladder cancer, gout, restrictive lung disease, ABELARDO/OHS, and chronic back pain who will be admitted for management of fluid overload. PLAN 1. Multifactorial Dyspnea Secondary to fluid overload in the setting of ESRD and possibly acute diastolic heart failure. Dialysis schedule is F Echo report from March 2019. Reviewed yet at the time was 70%. There was mild pulmonary hypertension and left atrial dilatation along with aortic stenosis since his Hg is around 10 he doesn't require epogen Plan: Dialysis day #3 per nephrology, continue with home antihypertensive and diuretics, f/u Is and Os and daily weights, restrict salt to 2 G and fluids to 2L 2. Leukocytosis Jaime be determined The patient was c/o of intermittent abd pain, but his has resolved. We were unable to obtain a urine sample Plan: Monitor vitals, follow-up CBC, 3. Restrictive lung disease. Stable, the patient is not not wheezing Plan: Continue with home meds 4. Macrocytic anemia. Likely multifactorial in nature. Plan: Follow up CBC daily / kaitlin 5. ABELARDO/OHS (not compliant with BiPAP) 6. Mjg-wfcxhtg-jdkeqygmt type 2 diabetes. Plan: Follow-up Accu-Cheks & A1C 7. Chronic CAD status post quadruple bypass. Plan: continue home meds. 8. Gout. Plan: Continue home meds. 9. Chronic back pain with spinal stimulator implant. Plan: Continue home meds. 10. Unsteady gait. Per discussion with the patient's , the patient was supposed to start outpatient physical therapy after his last hospital admission but they have not had time to set this up. Plan: Reconsult PT 11 Chronic Back Pain Plan: PT and c/w home meds 12.Anxiety Plan: c/w home meds 13.Obesity. BMI is 38.0. Plan: Follow-up with PCP to discuss diet. 14. Multiple comorbidities. I discussed the patient's CODE STATUS and the possibility of involving palliative care in the future with the patient's . Plan: The patient and his can follow-up with his PCP to discuss this further DVT prophylaxis with heparin. Disposition likely home tomorrow Plan/VTE VTE Prophylaxis Ordered?: Yes (heparin) VS, I&O, 24H, Fishbone Vital Signs/I&O Vital Signs Date Time Temp Pulse Resp B/P (MAP) Pulse Ox O2 Delivery O2 Flow Rate FiO2 05/26/19 12:00 96.9 80 18 122/58 (79) 93 05/26/19 10:13 2 05/26/19 06:00 Nasal Cannula I&O- Last 24 Hours up to 6 AM 05/26/19 06:00 Intake Total 1260 ml Output Total 1200 ml Balance 60 ml Laboratory Data 24H LABS Laboratory Tests 2 05/25/19 16:47: Iron Level 38L, Total Iron Binding Capacity 286, Transferrin % Saturation 13.3L 05/25/19 19:04: Bedside Glucose (Misc Panel) 231H 05/25/19 21:57: Bedside Glucose (Misc Panel) 121H 05/26/19 05:24: Immature Granulocyte % (Auto) 3.7H, White Blood Count 14.0H, Red Blood Count 3.36L, Hemoglobin 10.6L, Hematocrit 35.0L, Mean Corpuscular Volume 104.2H, Mean Corpuscular Hemoglobin 31.5, Mean Corpuscular Hemoglobin Concent 30.3L, Red Cell Distribution Width 15.9H, Platelet Count 176, Neutrophils (%) (Auto) 71.0H, Lymphocytes (%) (Auto) 15.0L, Monocytes (%) (Auto) 8.4H, Eosinophils (%) (Auto) 1.2, Basophils (%) (Auto) 0.7, Neutrophils # (Auto) 10.0H, Lymphocytes # (Auto) 2.1, Monocytes # (Auto) 1.2H, Eosinophils # (Auto) 0.2, Basophils # (Auto) 0.1, Nucleated Red Blood Cells % (auto) 0.0 05/26/19 05:47: Anion Gap 10, Glomerular Filtration Rate 12.7L, Blood Urea Nitrogen 61H, Creatinine 4.81H, Sodium Level 134L, Potassium Level 4.5, Chloride Level 96L, Carbon Dioxide Level 28, Calcium Level 8.0L, Iron Level 55L, Ferritin 552H, Vitamin B12 Level 768, Folate 23.0 05/26/19 12:07: Bedside Glucose (Misc Panel) 107 CBC/BMP Laboratory Tests 05/26/19 05:24 Red Blood Count 3.36 L, Mean Corpuscular Volume 104.2 H, Mean Corpuscular Hemoglobin 31.5, Mean Corpuscular Hemoglobin Concent 30.3 L, Red Cell Distribution Width 15.9 H, Neutrophils (%) (Auto) 71.0 H, Lymphocytes (%) (Auto) 15.0 L, Monocytes (%) (Auto) 8.4 H, Eosinophils (%) (Auto) 1.2, Basophils (%) (Auto) 0.7, Neutrophils # (Auto) 10.0 H, Lymphocytes # (Auto) 2.1, Monocytes # (Auto) 1.2 H, Eosinophils # (Auto) 0.2, Basophils # (Auto) 0.1 05/26/19 05:47 Calcium Level 8.0 L ALEX GONZALEZ MD May 26, 2019 16:18
[2019-05-26] MEDS: SPIRONOLACTONE 25 MG TAB PO SCH (18:00)
[2019-05-26] MEDS: CETIRIZINE (ZyrTEC) 10 MG TAB PO SCH (21:10)
[2019-05-26] MEDS: ATORVASTATIN 20 MG TAB PO SCH (21:10)
[2019-05-26] MEDS: PARoxetine 20 MG TAB PO SCH (21:10)
[2019-05-27] VITALS: BP 140/88; O2SAT 95
[2019-05-27 04:00] VITALS: BP_SYST 120; BP_SYST 132; BP_DIAS 73; O2SAT 94
[2019-05-27 04:28] LABS: BASO % 0.3 % (0.0-1.0); EOS # 0.1 10^3/uL (0.0-0.50); EOS % 1.2 % (0.0-3.0); HEMATOCRIT 31.6 % (42.0-52.0); HEMOGLOBIN 9.9 g/dl (13.5-17.5); LYMPH # 1.8 10^3/uL (1.5-4.5); LYMPH % 15.4 % (24.0-44.0); MEAN CORPUSCULAR HEMOGLOBIN 30.7 pg (27.0-33.0); MEAN CORPUSCULAR HGB CONC 31.3 g/dl (32.0-36.5); MEAN CORPUSCULAR VOLUME 98.1 fl (80.0-96.0); MONO # 1.1 10^3/uL (0.0-0.8); MONO % 9.1 % (0.0-5.0); NEUTROPHILS # 8.1 10^3/uL (1.8-7.7); NEUTROPHILS % 70.2 % (36.0-66.0); PLATELET COUNT, AUTOMATED 172 10^3/uL (150-450); RED BLOOD COUNT 3.22 10^6/uL (4.30-6.10); WHITE BLOOD COUNT 11.5 10^3/uL (4.0-10.0)
[2019-05-27 05:01] LABS: CALCIUM LEVEL 8.4 MG/DL (8.8-10.2); CREATININE FOR GFR 2.97 MG/DL (0.70-1.30); GLOMERULAR FILTRATION RATE 22.1 (>42); POTASSIUM SERUM 4.1 MEQ/L (3.5-5.1)
[2019-05-27] MEDS: SLF 3 ML SYR IV SCH (06:00)
[2019-05-27] MEDS: HEPARIN SOD (PORCINE) 5000 UNITS/ML VIAL SC SCH (06:00)
[2019-05-27] MEDS: TIOTROPIUM INHALER/CAPSULE (SPIRIVA) INH SCH (07:35)
[2019-05-27] MEDS ORDERED: fentaNYL 100 MCG/2 ML INJECTION (J3010) As Ordered ONE (07:58)
[2019-05-27] MEDS ORDERED: LIDOCAINE 2% MDV 20 ML VIAL As Ordered ONE (07:58)
[2019-05-27] MEDS ORDERED: BUPIVACAINE HCL 0.5% 10 ML VIAL As Ordered ONE (07:58)
[2019-05-27] MEDS ORDERED: MIDAZOLAM INJ 2 MG/2 ML VIAL (J2250) As Ordered ONE (07:58)
[2019-05-27] MEDS ORDERED: ISOVUE-300 61% 50ML VIAL (Q9967) As Ordered ONE (07:58)
[2019-05-27 08:00] VITALS: BP 133/62
--- NOTE | 2019-05-27 08:45 | IPNPDOC ---
Date Seen The patient was seen on 05/27/19. Progress Note Vascular surgery. Dr. Copeland HPI: 74 year old M with ESRD, currently dialyzing through right chest PermCath. Recently status post fistulogram 05/11/19. The patient states his AV fistula in the left upper extremity has been accessed twice for dialysis. Last access was last week per patient. He had some bruising of the upper arm following dialysis. 05/24/19 he noticed sudden onset of left upper extremity forearm wrist and hand pain. It was an achy pain. He also had pain with touch when his was touching his wrist area. Pulses were noted to be reduced in the left upper extremity. Patient states he had another episode of pain which lasted approximately 30 minutes and resolved. Vascular surgery was consulted to further assess AV fistula This AM the pt is in IR for procedure. He denies any recurrent LUE pain. PAST MEDICAL HISTORY: 1. Coronary artery disease status post CABG. 2. Bladder cancer. 3. Obstructive sleep apnea and noncompliant with CPAP 4. Diabetes mellitus 5. Congestive heart failure with preserved ejection fraction 6. Bioprosthetic mitral valve replacement 7. Gout 8. Anemia. 9. Anxiety 10. COPD PAST SURGICAL HISTORY: 1. Left upper extremity AV fistula placement. Status post fistulogram 05/11/19 2. CABG. 3. Knee replacement 4. Elbow surgery 5. Spinal stimulator implantation 6. Numerous bladder surgeries 7. Mitral valve replacement PE: GEN: 74yoM, appears stated age. Alert and oriented x 3. HEENT: Normocephalic, atraumatic. Moist mucous membranes. CHEST: Regular rate and rhythm, +S1, +S2 LUNGS: Clear to auscultation bilaterally. No wheezes, rales, or rhonchi. ABD: Round, soft, non-tender, non-distended. EXT: Thrill noted over AVF LUE. The left hand feels warm, no TTP. No lower extremity edema appreciated. SKIN: Capillary refill 3 sec. No rashes. NEURO: Alert and oriented x 3. Cranial nerves III-XII are intact. No focal defi cits appreciated. A&P: Left upper extremity AV fistula Patient denies any pain, weakness, or paresthesia currently. The pt is reviewed and examined as per Dr. Copeland. Possible vascular steal syndrome related to the patient's AV fistula, S/P fistulogram 05/26/19. Plan is for ligation of the large side branches originating off of the fistula and feeding into the deeper venous system. The pt is scheduled this Am as per Dr Copeland for repeat fistulogram, angiogram and ligation of the large side bra nches in an attempt to resolve the steal syndrome. DVT prophylaxis. Subcutaneous heparin. VS, I&O, 24H, Fishbone Vital Signs/I&O Vital Signs Date Time Temp Pulse Resp B/P (MAP) Pulse Ox O2 Delivery O2 Flow Rate FiO2 05/27/19 08:38 83 18 2 05/27/19 08:23 99 05/27/19 08:08 97.3 05/27/19 08:00 133/62 (85) 05/27/19 04:00 Nasal Cannula I&O- Last 24 Hours up to 6 AM 05/27/19 06:00 Intake Total 760 ml Output Total 2000 ml Balance -1240 ml Laboratory Data 24H LABS Laboratory Tests 2 05/26/19 12:07: Bedside Glucose (Misc Panel) 107 05/27/19 04:06: Immature Granulocyte % (Auto) 3.8H, White Blood Count 11.5H, Red Blood Count 3.22L, Hemoglobin 9.9L, Hematocrit 31.6L, Mean Corpuscular Volume 98.1H, Mean Corpuscular Hemoglobin 30.7, Mean Corpuscular Hemoglobin Concent 31.3L, Red Cell Distribution Width 16.1H, Platelet Count 172, Neutrophils (%) (Auto) 70.2H, Lymphocytes (%) (Auto) 15.4L, Monocytes (%) (Auto) 9.1H, Eosinophils (%) (Auto) 1.2, Basophils (%) (Auto) 0.3, Neutrophils # (Auto) 8.1H, Lymphocytes # (Auto) 1.8, Monocytes # (Auto) 1.1H, Eosinophils # (Auto) 0.1, Basophils # (Auto) 0.0, Nucleated Red Blood Cells % (auto) 0.0, Anion Gap 5L, Glomerular Filtration Rate 22.1L, Blood Urea Nitrogen 28#H, Creatinine 2.97H, Sodium Level 138, Potassium Level 4.1, Chloride Level 102, Carbon Dioxide Level 31, Calcium Level 8.4L CBC/BMP Laboratory Tests 05/27/19 04:06 Red Blood Count 3.22 L, Mean Corpuscular Volume 98.1 H, Mean Corpuscular Hemoglobin 30.7, Mean Corpuscular Hemoglobin Concent 31.3 L, Red Cell Distribution Width 16.1 H, Neutrophils (%) (Auto) 70.2 H, Lymphocytes (%) (Auto) 15.4 L, Monocytes (%) (Auto) 9.1 H, Eosinophils (%) (Auto) 1.2, Basophils (%) (Auto) 0.3, Neutrophils # (Auto) 8.1 H, Lymphocytes # (Auto) 1.8, Monocytes # (Auto) 1.1 H, Eosinophils # (Auto) 0.1, Basophils # (Auto) 0.0, Calcium Level 8.4 L Attending Note Attending Note VASCULAR SURGICAL ATTENDING NOTE: Dr. Rosalie Copeland M.D. The patient was seen on 05/27/19 at 08:02. ASSESSMENT: Patient is a 74-year-old male with end-stage renal disease who underwent creation of a left acute cephalic arterial venous fistula and had subsequently developed steal syndrome. The patient had a fistula Rafael which showed poor flow distal to the arterial venous anastomosis as well as 3 large collateral branch is originating off of the cephalic vein one of which had undergone coil embolization but had continued flow in spite of coil embolization. Patient underwent a repeat fistulogram with surgical ligation of the 3 collateral branch is with improved flow through the main outflow tract of the fistula as well as into the left forearm hand and fingers. PLAN: The patient underwent ligation of the large collateral side branches with improved flow to the hand and improved flow through the main outflow channels of the fistula. The fistula is stable to begin attempted cannulation for renal replacement therapy via hemodialysis. The patient will require angioplasty maturation of the arteriovenous fistula if there is continued inability to use the fistula for hemodialysis access. Mike Spears was the attending vascular surgeon for this patient encounter. The patient was seen, examined, interviewed and evaluated independently by Dr. Stephan Copeland M.D. Dr. Stephan Copeland M.D. was fully available during the consultation evaluation. All aspects of the patient interview, examination, medical decision making process, and medical care plan development were reviewed and approved by Dr. Stephan Copeland M.D. Dr. Stephan Copeland M.D. is aware and concurs with the plan as stated in the body of this note and will attest to such by his/her cosignature. Gabi Kuhn May 27, 2019 08:45 Naeem Copeland MD May 27, 2019 10:45
[2019-05-27 09:13] VITALS: BP 129/58
[2019-05-27 09:58] VITALS: BP 114/56
[2019-05-27] MEDS: CARVedilol 6.25 MG TAB PO SCH (09:58)
[2019-05-27] MEDS: CLOPIDOGREL 75 MG TAB PO SCH (09:59)
[2019-05-27] MEDS: MULTIVITAMINS/MINERALS THERAP 1 TAB PO SCH (09:59)
[2019-05-27] MEDS: TORSEMIDE 100 MG TAB PO SCH (09:59)
[2019-05-27] MEDS: predniSONE 1 MG TAB PO SCH (09:59)
--- NOTE | 2019-05-27 10:06 | ROOPDOC ---
[facility] Report Of Operation Report of Operation DATE OF PROCEDURE: 05/27/2019 PREOPERATIVE DIAGNOSIS: End-stage renal disease, dysfunctional left brachiocephalic autogenous arteriovenous hemodialysis access. Left forearm, hand and finger pain numbness and tingling. Steal syndrome left upper extremity. POSTOPERATIVE DIAGNOSIS: End-stage renal disease, dysfunctional left brachiocephalic autogenous arteriovenous hemodialysis access. Left forearm, hand and finger pain numbness and tingling. Steal syndrome left upper extremity. PROCEDURE: Left brachiocephalic autogenous arteriovenous fistulogram. Selective left brachial artery catheter placement with angiogram. Open surgical ligation of left cephalic vein collateral side branch vein 3. SURGEON: Dr. Rosalie Copeland M.D. CAST IRON DIPPER: Peng Cardenas and Cecille Gunderson INDICATION: Patient is a 74-year-old male with end-stage renal disease who undergoes hemodialysis through a left brachiocephalic autogenous arteriovenous vascular access. Patient has had difficulty with cannulation of the fistula and poor flow rates as well as extravasation and hematoma formation. Patient also has pain in his left forearm wrist and fingers and underwent a brachial artery angiogram with fistula Rafael which showed steal syndrome and 3 large collateral branch is originating off the cephalic vein with flow into the deeper venous s ystem. Patient has decreased pulsatility within the arteriovenous fistula with compression of the fistula as well as difficulty with cannulation and will undergo a left brachiocephalic arteriovenous fistulogram with ligation of the side branch is originating off the cephalic vein. The procedure was described and explained to the patient in detail including drawing of pictures demonstrating the procedure and the anatomy involved in the procedure. Risks, benefits and alternative treatment options were discussed with the patient. Benefits of performing the procedure included but were not limited to improved functioning and retained patency of the autogenous arteriovenous fistula as well as maintained patency. Alternative treatment options included but were not limited to no intervention. Risks included but were not limited to infection, bleeding, loss of arteriovenous access, steal syndrome, possible need for open surgical intervention, allergic reaction and/or complication to the contrast material, anesthetic and sedation related complications, allergic reaction or complication from the prepping and draping materials, pain, nerve injury, scarring of the skin, hematoma formation, bruising, possible need for transfusion of blood products, cerebrovascular accident, myocardial infarction, pulmonary embolus, deep venous thrombosis, loss of limb, loss of life, poor satisfaction and poor outcome. Risks of not performing the procedure included but were not limited to loss of autogenous arteriovenous access, inability to undergo renal replacement therapy via hemodialysis, possible need for tunneled central venous catheter placement for access for hemodialysis and . Patient's questions were answered. Patient voices understanding of these risks, benefits and alternative treatment options. Patient voices acceptance of these risks associated with the procedure and consents to proceed. No promises or guarantees were made regarding the outcome and or results of the procedure. ANESTHESIA: Local with 10 mL of 2% lidocaine mixed with 0.5% Marcaine. SEDATION TIME: None ESTIMATED BLOOD LOSS: 15 mL. IV FLUIDS: On 115 mL. HEPARIN: None PROTAMINE: None FLUORO TIME: 0.8 minutes CONTRAST: 4 mL. of Isovue 300 COMPLICATIONS: None DRAINS: None. SPECIMENS: None. IMPLANTS: None PROCEDURE: Patient was taken to the angiography suite, placed supine on the angiography room table and then prepped and draped in a standard surgical fashion. A procedural time-out was conducted by myself and the team members inv olved in the procedure confirming the correct patient, procedure and laterality. The left brachiocephalic arteriovenous fistula was then cannulated with a micro-puncture needle after anesthetizing the overlying skin and subcutaneous tissue with 2% lidocaine mixed with 0.5% Marcaine. A micropuncture wire was advanced through the micropuncture needle which was up-sized to a micropuncture sheath. An angled glide wire was advanced through the micropuncture sheath. A burn catheter was advanced through the fistula using an angled glide wire and placed selectively in the brachial artery in a retrograde fashion. A selective left brachial artery angiogram and left brachiocephalic arteriovenous fistulogram were performed showing the location of the collateral branch is originating off of the cephalic vein and continued minimal flow into the brachial artery distal to the arteriovenous anastomosis. A stab incision was then made over the collateral side branch originating off the cephalic vein after anesthetizing the overlying skin and subcutaneous tissue with 2% lidocaine mixed with 0.5% Marcaine. The side branch was sharply dissected proximally and distally and then encircled with 2-0 silk suture, which were then used to ligate the side branch originating off of the cephalic vein. This was performed with a total of 3 side branches being ligated. The completion selective brachial artery angiogram showed no further flow into the collateral branch is with improved flow into the brachial artery distal to the arteriovenous anastomosis. The catheter was removed and a 2-0 Prolene pursestring suture was placed at the puncture site for hemostasis. Steri-Strips and dressings were then applied. Patient tolerated the procedure well. All instrument, sponge and needle counts were correct at the end of the case. There were no complications. Dr. Copeland was present for and directed the entire case. Patient was transferred to the recovery area and subsequently to the floor in stable condition. The procedure and results of the procedure were discussed with the patient in detail, in the postprocedure holding area, with all of his questions being answered. RADIOLOGIC SUPERVISION AND INTERPRETATION: The selective left brachial artery angiogram with runoff showed the fistula be filling with some mild luminal irregularity at the arteriovenous anastomosis and 3 large collateral branch is originating off of the cephalic vein in the upper arm. There was minimal contrast noted distal to the arteriovenous anastomosis with the majority of the flow into the arteriovenous fistula. There was no stenosis in the brachial artery proximal or distal to the arteriovenous anastomosis. The fistulogram showed the cephalic vein to be widely patent to the central venous system with 3 large collaterals originating off of the cephalic vein. One of the collaterals had previously undergone caudal embolization with continued flow around occluded vessels into the collateral branch. The 3 collateral side branches were ligated with open surgical dissection. The completion selective left brachial artery angiogram showed the collateral side branches to have no flow and there was good flow noted in the brachial artery distal to the arteriovenous anastomosis with continued good flow into the arteriovenous fistula. CONCLUSION:The fistula which had decreased flow noted prior to the intervention had a strongly palpable thrill at the completion of the intervention. PLAN: Patient has improved flow to the left hand and the fistula has a strong thrill with no further flow in the side branches. The fistula is stable for attempted cannulation for renal replacement therapy via hemodialysis. If there is continued difficulty with cannulation of the fistula the patient will require repeat fistulogram with angioplasty maturation and possible angioplasty of the luminal irregularity at the arteriovenous anastomosis. Naeem Copeland MD May 27, 2019 10:06
--- NOTE | 2019-05-27 11:52 | IPN ---
DATE: 05/27/2019 Mr. Mckeon is seen this morning on his bedside. He is sitting at the edge of bed eating his late breakfast. He underwent ligation of some branches on his left arm AV fistula at this morning and just came back from the angio suite. The patient denies any dyspnea, chest pain, nausea, vomiting, fever or chills. He looks quite comfortable now and able to have a normal conversation today. PHYSICAL EXAMINATION Temperature 97.3 degrees Fahrenheit, heart rate 84 per minute and respiratory rate 18 per minute. Blood pressure 114/56 mmHg and oxygen saturation 98%. His head is atraumatic. Neck is supple and without any JVD sitting upright. His lungs sound clear to auscultation and heart sounds are regular. Abdomen soft and nontender. Extremities without any cyanosis or clubbing. Left arm AV fistula is patent and there are surgical dressings since his procedure done this morning. He still has a PermaCath in place on right upper chest. Neurologically the patient is awake, alert and oriented times three. Today's labs show WBC count 11.5, hemoglobin 9.9 and hematocrit 31.6. Sodium 138, potassium 4.1, CO2 31, BUN 28 and creatinine 2.97. Glucose 109 and calcium 8.4. PROBLEMS: 1. End-stage renal disease. The patient was dialyzed yesterday and next regular dialysis will be scheduled for tomorrow. 2. Congestive heart failure. The patient had frequent dialysis and ultrafiltration during his stay here and volume status is now well compensated. I have emphasized the need for a fluid restriction and the patient and his both understand clearly that he needs to follow a 1500 mL fluid restriction per day. We will try to maintain his volume with dialysis. His diuretics have been stopped as he was not responding much. 3. Anemia. His anemia is mild and stable and does not need any specific intervention. This will be monitored and followed up as an outpatient. 4. Backaches. He has chronic back pain for which he has been on oral morphine at home and he will continue with the same. Today he feels much better. DISPOSITION: From a renal standpoint, the patient can be discharged to home today and will follow-up in the outpatient clinic.
[2019-05-27] MEDS ORDERED: MORPHINE 30 MG TAB **MSIR PO ONE (12:00)
--- NOTE | 2019-06-01 21:16 | DS.PDOC ---
Discharge Summary General Date of Admission May 24, 2019 at 13:29 Date of Discharge 8.. Discharge Summary PROCEDURES PERFORMED DURING STAY: [None]. ADMITTING DIAGNOSES: 1. ESRD 2. acute diastolic CHF DISCHARGE DIAGNOSES: 1.ESRD 2. Acute diastolic chf 3. steal syndrome COMPLICATIONS/CHIEF COMPLAINT: Dyspnea,Volume Overload. HISTORY OF PRESENT ILLNESS: Mr. Mckeon is a 74-year-old male who presented wit h complaints of 3 day duration dyspnea. Per discussion with the ED attending, the patient reported not being able to lie down flat because of the dyspnea and had been feeling very anxious. The patient started dialysis about 3 weeks ago and has sessions on Friday, Friday and Friday. The patient had been having extra sessions weekly. His last session was yesterday, but dialysis was discontinued early because the blood pressure was low. Additional history was obtained from the patient's because the patient had just fallen sleep; he has not been able to sleep for the last 3 days because it is very short of breath and anxious. According to the patient's , he hasn't eaten any new foods, has been trying very hard to restrict his fluids, and has not had any upper respiratory tract symptoms. HOSPITAL COURSE: Pt was admitted to the hospitalist service. He was dialyzed to help removed fluid. He was noted to have pain in his arm with the fistula. He was seen by nephrology and vascular surgery. It was felt that he had a steal syndrome in his arm. He underwent a fistulagram with ligation of large branches originating from the fistula. DISCHARGE MEDICATIONS: Please see below. ALLERGIES: Please see below. PHYSICAL EXAMINATION ON DISCHARGE: VITAL SIGNS: Please see below. GENERAL APPEARANCE: Well-nourished, well-developed, does not appear anxious, is obese, sitting up in a chair HEENT: Head is normocephalic and atraumatic, lips not cyanotic, CARDIOVASCULAR: Heart has a regular rate and rhythm, there are no murmurs, rubs or gallops. There is a Port-A-Cath at the right upper chest LUNGS:, He is breathing normally, not using accessory muscles, and the breath sounds are diminished EXTREMITIES: The bilateral lower extremity edema has resolved, there is an AV fistula at the left upper extremity, the thrill is palpable, and there is extensive amount of bruising at the mid-lower arm SKIN: There is a postsurgical scar at the anterior aspect of the right knee. LABORATORY DATA: Please see below. ACTIVITY: [As tolerated]. DIET: renal DISPOSITION: 01 Home, Self-Care. DISCHARGE CONDITION: [Stable]. Vital Signs/I&Os Vital Signs Date Time Temp Pulse Resp B/P (MAP) Pulse Ox O2 Delivery O2 Flow Rate FiO2 05/27/19 11:49 20 05/27/19 09:58 86 114/56 05/27/19 09:13 2 05/27/19 08:23 99 05/27/19 08:08 97.3 05/27/19 04:00 Nasal Cannula Discharge Medications Scheduled Ascorbic Acid (Ascorbic Acid) 500 Mg Tablet, 500 MG PO DAILY, (Reported) Atorvastatin Calcium (Atorvastatin Calcium) 20 Mg Tablet, 20 MG PO QHS, (Reported) Calcitriol (Calcitriol) 0.25 Mcg Capsule, 0.25 MCG PO Q2D, (Reported) AT BEDTIME Calcium Carbonate/Vitamin D3 (Calcium 600-Vit D3 800 Tablet) 1 Each Tablet, 1 TAB PO DAILY, (Reported) Carvedilol (Carvedilol) 6.25 Mg Tablet, 6.25 MG PO BID, (Reported) Cetirizine HCl (Cetirizine HCl) 10 Mg Tablet, 10 MG PO QHS, (Reported) Clopidogrel Bisulfate (Clopidogrel) 75 Mg Tablet, 75 MG PO DAILY, (Reported) Docusate Sodium (Docusate Sodium) 100 Mg Capsule, 100 MG PO BID, (Reported) Febuxostat (Uloric) 80 Mg Tablet, 80 MG PO Q2D, (Reported) AT BEDTIME Lactobacillus Acidophilus (Probiotic) 1 Each Capsule, 1 CAP PO QHS, (Reported) Morphine Sulfate (Morphine Sulfate) 15 Mg Tablet, 15 MG PO BID, (Reported) Multivitamins (Thera M Plus Tablet) 1 Each Tablet, 1 TAB PO DAILY, (Reported) Naldemedine Tosylate (Symproic) 0.2 Mg Tablet, 0.2 MG PO DAILY, (Reported) Paroxetine HCl (Paroxetine HCl) 20 Mg Tablet, 20 MG PO QHS, (Reported) Prednisone (Prednisone) 1 Mg Tablet, 6 MG PO DAILY, (Reported) Ranitidine Hcl (Ranitidine HCl) 150 Mg Tablet, 1 TAB PO DAILY, (Reported) Spironolactone (Spironolactone) 25 Mg Tablet, 25 MG PO QPM, (Reported) TAKES AROUND 1800 Tiotropium [place] (Spiriva Respimat) 4 Gm Mist.inhal, 2 PUFFS INH DAILY, (Reported) Torsemide (Torsemide) 100 Mg Tablet, 100 MG PO DAILY, (Reported) Ubidecarenone (Coq-10) 100 Mg Capsule, 100 MG PO BID, (Reported) Scheduled PRN Albuterol Sulf (Albuterol Sulfate) 2.5 Mg/3 Ml Vial.neb, 2.5 MG INH Q2H PRN for SOB/WHEEZING, (Reported) Albuterol Sulfate (Proair Hfa) 8.5 Gm Hfa.aer.ad, 2 PUFF INH QID PRN for SHORTNESS OF BREATH, (Reported) Alprazolam (Alprazolam) 0.25 Mg Tablet, 0.25 MG PO TID PRN for ANXIETY, (Re ported) Hydroxyzine HCl (Hydroxyzine HCl) 25 Mg Tablet, 25 MG PO TID PRN for ITCHING, (Reported) Allergies Coded Allergies: aspirin (Verified Allergy, Severe, LIPS SWELL, 03/29/19) Penicillins (Verified Allergy, Intermediate, RASH, 04/15/19) ampicillin (Verified Allergy, Intermediate, HIVES, 03/17/19) ceftriaxone (Verified Allergy, Unknown, UNKNOWN REACTION, 04/09/19) JEREMIAH PIERCE MD Jun 01, 2019 21:16
== END 2019-05-27 14:03 | disposition home or self-care (01) | DRG 252 ==
LOC: M ED 03:25 → M ED INP 03:26 → M PCU 10:16 → OBSVTOIN 05-24 13:29
PROVIDERS: ADMIT Internal Medicine; ATTEND Internal Medicine
PROC: 5A1D70Z Performance of Urinary Filtration, Intermittent, Less than 6 Hours Per Day (ICD-10-PCS; 2019-05-25)
PROC: B302ZZZ Plain Radiography of Left Subclavian Artery (ICD-10-PCS; 2019-05-26)
PROC: B30JZZZ Plain Radiography of Left Upper Extremity Arteries (ICD-10-PCS; 2019-05-26)
PROC: B300YZZ Plain Radiography of Thoracic Aorta using Other Contrast (ICD-10-PCS; 2019-05-26)
PROC: 05LF0ZZ Occlusion of Left Cephalic Vein, Open Approach (ICD-10-PCS; principal; 2019-05-27 08:00)
DX: I50.31 Acute diastolic (congestive) heart failure (principal); N18.6 End stage renal disease; E87.1 Hypo-osmolality and hyponatremia; T82.898A Other specified complication of vascular prosthetic devices, implants and grafts, initial encounter; I27.20 Pulmonary hypertension, unspecified; E11.22 Type 2 diabetes mellitus with diabetic chronic kidney disease; I25.10 Atherosclerotic heart disease of native coronary artery without angina pectoris; M10.9 Gout, unspecified; E87.5 Hyperkalemia; G47.33 Obstructive sleep apnea (adult) (pediatric); F41.9 Anxiety disorder, unspecified; I35.0 Nonrheumatic aortic (valve) stenosis; J98.4 Other disorders of lung; E66.9 Obesity, unspecified; D53.9 Nutritional anemia, unspecified; R26.81 Unsteadiness on feet; J44.9 Chronic obstructive pulmonary disease, unspecified; I95.3 Hypotension of hemodialysis; Z87.891 Personal history of nicotine dependence; Z95.1 Presence of aortocoronary bypass graft; Z99.2 Dependence on renal dialysis; Z95.3 Presence of xenogenic heart valve; Z85.51 Personal history of malignant neoplasm of bladder; Z91.19 Patient's noncompliance with other medical treatment and regimen; Z79.52 Long term (current) use of systemic steroids; Z79.899 Other long term (current) drug therapy; Z88.0 Allergy status to penicillin; Z88.1 Allergy status to other antibiotic agents; Z88.6 Allergy status to analgesic agent; Z79.02 Long term (current) use of antithrombotics/antiplatelets; Z68.38 Body mass index [BMI] 38.0-38.9, adult; Y83.1 Surgical operation with implant of artificial internal device as the cause of abnormal reaction of the patient, or of later complication, without mention of misadventure at the time of the procedure

== ENCOUNTER → 2019-06-03 | Outpatient (CLI) | payer MEDICARE, OTHER ==
[~2019-06-03] MED LIST changes: -FEBU40TA PO; +FEBU40TA4 PO; -MORP-38 PO; +MORP-69 PO; +NALD0.2T PO; -[UNRECOGNIZED DRUG - CODE] PO
== END ==
LOC: M SLEEP 19:23
PROVIDERS: ATTEND Internal Medicine Pulmonary Disease
DX: G47.33 Obstructive sleep apnea (adult) (pediatric) (principal); Z53.9 Procedure and treatment not carried out, unspecified reason

== ENCOUNTER 2019-07-19 23:23 | Emergency (ER) | payer MEDICARE, OTHER ==
[~2019-07-19] VITALS: Ht 167.6 cm; Wt 102.7 kg
[~2019-07-19 23:23] MED LIST changes: -METF750T PO; +METF750T36 PO
[2019-07-19] MEDS ORDERED: CALC1TAB61 PO (23:50)
[2019-07-19] MEDS ORDERED: BACL10TA2 PO (23:50)
[2019-07-19] MEDS ORDERED: BENZ-18 PO (23:50)
[2019-07-20] MEDS ORDERED: METHYLNALTREXONE BROMIDE 12 MG/0.6 ML VIAL (RELISTOR) SC ONE (01:45)
[2019-07-20] MEDS ORDERED: CVS1SUP2 PR (01:51)
[2019-07-20] MEDS ORDERED: MAGNESIUM CITRATE 300 ML BTL PO ONE (02:00)
[2019-07-20 02:07] VITALS: BP 102/50
--- NOTE | 2019-07-20 07:55 | REP ---
Supine abdomen single AP view: The bowel gas pattern is normal. There is a moderate volume of fecal residue in the transverse colon. There is a superimposed electronic device. There is degenerative disc disease throughout the lumbar spine. There is joint space narrowing of the left hip. The skeletal structures and soft tissues otherwise are unremarkable. Electronically Signed by Toni Ramirez MD 07/20/2019 07:46 A
== END 2019-07-20 02:27 | disposition home or self-care (01) ==
LOC: M ED 23:23
DX: K59.03 Drug induced constipation (principal); R10.84 Generalized abdominal pain; I13.2 Hypertensive heart and chronic kidney disease with heart failure and with stage 5 chronic kidney disease, or end stage renal disease; I50.9 Heart failure, unspecified; I25.2 Old myocardial infarction; E11.22 Type 2 diabetes mellitus with diabetic chronic kidney disease; E78.5 Hyperlipidemia, unspecified; N18.6 End stage renal disease; Z99.2 Dependence on renal dialysis; J44.9 Chronic obstructive pulmonary disease, unspecified; R51 Headache; F41.9 Anxiety disorder, unspecified; F32.9 Major depressive disorder, single episode, unspecified; Z95.1 Presence of aortocoronary bypass graft; Z95.2 Presence of prosthetic heart valve; Z85.51 Personal history of malignant neoplasm of bladder; Z88.0 Allergy status to penicillin; Z88.1 Allergy status to other antibiotic agents; Z88.6 Allergy status to analgesic agent; Z79.899 Other long term (current) drug therapy; Z79.02 Long term (current) use of antithrombotics/antiplatelets; Z79.52 Long term (current) use of systemic steroids; Z79.891 Long term (current) use of opiate analgesic

== ENCOUNTER → 2019-07-26 | Outpatient (REF) | payer MEDICARE, OTHER ==
[~2019-07-26] MED LIST changes: +BACL10TA2; +BENZ-18; +CALC1TAB61; +CVS1SUP2 PR
== END ==
LOC: M SMT 13:14
PROVIDERS: ATTEND Urology
DX: C67.9 Malignant neoplasm of bladder, unspecified (principal)

== ENCOUNTER 2019-08-31 14:19 | Emergency (ER) | payer MEDICARE, OTHER ==
[~2019-08-31] VITALS: Ht 167.6 cm; Wt 102.3 kg
[2019-08-31] MEDS ORDERED: PEPC1TAB5 PO (15:26)
[2019-08-31] MEDS ORDERED: VELP5CHW (15:26)
[2019-08-31] MEDS ORDERED: VITA200028 PO (15:27)
[2019-08-31] MEDS ORDERED: MORPHINE 10 MG/ML 1ML VIAL (J2270) IM ONE (16:45)
--- NOTE | 2019-08-31 17:08 | REP ---
Right ribs series four views: There is a nondisplaced fracture of the right seventh rib posterolaterally. PA chest: Comparison is 05/23/2019. There is no pneumothorax or hemothorax. There is atelectasis inferiorly in the right lung. The left lung is clear. A dual lumen right IJ central venous catheter is again identified, unchanged. There is a neural stimulator in the mid thoracic spine, unchanged. There are sternotomy wires, unchanged. Electronically Signed by Toni Ramirez MD 08/31/2019 05:00 P
[2019-08-31 17:31] VITALS: BP 142/69
== END 2019-08-31 17:53 | disposition home or self-care (01) ==
LOC: M ED 14:19
DX: S22.31XA Fracture of one rib, right side, initial encounter for closed fracture (principal); W01.0XXA Fall on same level from slipping, tripping and stumbling without subsequent striking against object, initial encounter; Y92.89 Other specified places as the place of occurrence of the external cause; E11.9 Type 2 diabetes mellitus without complications; J44.9 Chronic obstructive pulmonary disease, unspecified; Z87.442 Personal history of urinary calculi; N40.1 Benign prostatic hyperplasia with lower urinary tract symptoms; F41.9 Anxiety disorder, unspecified; Z95.1 Presence of aortocoronary bypass graft; I25.10 Atherosclerotic heart disease of native coronary artery without angina pectoris; I25.2 Old myocardial infarction; Z99.2 Dependence on renal dialysis; Z88.0 Allergy status to penicillin; Z88.8 Allergy status to other drugs, medicaments and biological substances; Z88.1 Allergy status to other antibiotic agents; Z79.899 Other long term (current) drug therapy; Z79.82 Long term (current) use of aspirin
CPT/HCPCS: 71101; 96372; 99284; J2270

== ENCOUNTER 2019-09-02 06:44 | Emergency (ER) | payer MEDICARE, OTHER ==
[~2019-09-02] VITALS: Ht 167.6 cm; Wt 102.3 kg
[~2019-09-02 06:44] MED LIST changes: +PEPC1TAB5 PO; +VELP5CHW; +VITA200028 PO
[2019-09-02] MEDS: MORPHINE 4 MG/ML 1ML VIAL/SYRINGE (J2270) IV PRN ×2 (07:52→08:25)
[2019-09-02 08:04] LABS: BASO % 0.3 % (0.0-1.0); EOS # 0.4 10^3/uL (0.0-0.5); EOS % 2.7 % (0.0-3.0); HEMATOCRIT 33.3 % (42.0-52.0); HEMOGLOBIN 10.7 g/dl (13.5-17.5); LYMPH # 1.5 10^3/uL (1.5-5.0); LYMPH % 11.4 % (24.0-44.0); MEAN CORPUSCULAR HEMOGLOBIN 33.9 pg (27.0-33.0); MEAN CORPUSCULAR HGB CONC 32.1 g/dl (32.0-36.5); MEAN CORPUSCULAR VOLUME 105.4 fl (80.0-96.0); MONO # 1.2 10^3/uL (0.0-0.8); MONO % 9.2 % (0.0-5.0); NEUTROPHILS # 9.8 10^3/uL (1.5-8.5); NEUTROPHILS % 73.9 % (36.0-66.0); PLATELET COUNT, AUTOMATED 158 10^3/uL (150-450); RED BLOOD COUNT 3.16 10^6/uL (4.30-6.10); WHITE BLOOD COUNT 13.3 10^3/uL (4.0-10.0)
[2019-09-02 08:27] LABS: BLOOD UREA NITROGEN 42 MG/DL (7-18); CALCIUM LEVEL 9.1 MG/DL (8.8-10.2); CARBON DIOXIDE LEVEL 35 MEQ/L (21-32); CHLORIDE LEVEL 97 MEQ/L (98-107); CK-MB VALUE MASS 1.7 NG/ML (<3.6); CPK CREATINE PHOSPHOKINASE 66 U/L (39-308); CREATININE FOR GFR 4.07 MG/DL (0.70-1.30); GLOMERULAR FILTRATION RATE 15.4 (>42); GLUCOSE, FASTING 128 MG/DL (70-100); MB/CK RELATIVE INDEX 2.58 (< OR =4); NT-PRO BNP 4341 PG/ML (<450); POTASSIUM SERUM 3.7 MEQ/L (3.5-5.1); SODIUM LEVEL 137 MEQ/L (136-145); TROPONIN I < 0.02 NG/ML (< 0.10)
--- NOTE | 2019-09-02 08:37 | REP ---
Portable chest, 08:12 a.m., single AP view with the patient sitting: Comparison is E rib series of 08/31/2019. The atelectasis inferiorly in the right lung has improved. The lung gross otherwise clear and unchanged. There is no pneumothorax. There is a nondisplaced fracture of the posterior arch of the right seventh rib, unchanged. The right IJ dual lumen central venous catheter is unchanged. The mid thoracic spine and neural stimulator is unchanged. Sternotomy wires are unchanged. Impression: The atelectasis inferiorly in the right lung has improved. There is no other interval change. Electronically Signed by Toni Ramirez MD 09/02/2019 08:29 A
[2019-09-02] MEDS ORDERED: KETOROLAC 30 MG/ML VIAL (J1885) IV ONE (11:00)
[2019-09-02] MEDS ORDERED: KETO10TAB PO (11:19)
[2019-09-02 11:46] VITALS: BP 104/72
--- NOTE | 2019-09-02 20:47 | ECGEPIP ---
[facility] - ED Test Date: 2019-09-02 Pat Name: VEDA BARRERA Department: Room: - Gender: Male Patient Admitting Clerk: CT : 1945 Requested By: ADAMA Wiggins Order Number: [id number] Reading MD: Adama Combs Measurements Intervals [place] Rate: 77 P: 10 MA: 196 QRS: -13 QRSD: 172 T: 9 QT: 422 QTc: 480 Interpretive Statements SINUS RHYTHM POSSIBLE LEFT ATRIAL ENLARGEMENT Prolonged QTc interval RIGHT BUNDLE BRANCH BLOCK as previously noted in tracing done 05-23-19 Electronically Signed on 09-02-2019 20:47:07 EST by Adama Combs
--- NOTE | 2019-09-02 22:05 | ER ---
DATE OF CONSULTATION: 09/02/2019 REQUESTING PHYSICIAN: Dr. Combs in the emergency room. CONSULTING PHYSICIAN: Dr. Carrasco REASON FOR CONSULTATION: Assessment and management of volume status in this patient with congestive heart failure and end-stage renal disease dependent on dialysis. CHIEF COMPLAINT: The patient presented to the emergency room with persistent right-sided chest pain and right shoulder pain along with some shortness of breath. HISTORY OF PRESENT ILLNESS: Mr. Maik Mckeon is a 74-year-old male with past medical history of end-stage renal disease, on hemodialysis every Friday, Friday, Friday, history of diabetes mellitus type 2, chronic diastolic congestive heart failure, history of mitral valve prosthesis, multiple other comorbidities as mentioned below. He recently fell and fractured his right seventh rib, and he also has pain in the right shoulder. He was supposed to follow up with orthopedics as an outpatient today and going to get this injection in the shoulder done. However, because of persistent pain and shortness of breath, he presented to the emergency room. He was initially seen a few days ago, and at that time, he had atelectasis on the right side, so a got a repeat chest x-ray done, which showed that the atelectasis had improved, but because of history of congestive heart failure and end-stage renal disease, emergency room (ER) physician, Dr. Combs, requested evaluation by nephrology service to make sure that the patient was not fluid overloaded, and he did not need any urgent inpatient dialysis. The patient needed my immediate attention. I went and I saw and evaluated the patient in the emergency room at the bedside. The patient was sitting up in the bed. He was on room air. He was able to provide the history, and he reported that after getting the morphine injection, his pain was significantly better. PAST MEDICAL HISTORY: Past medical history of end-stage renal disease - on hemodialysis every Friday, Friday, Friday, history of diastolic congestive heart failure, diabetes mellitus type 2, valvular heart disease, history of mitral valve prosthesis and aortic stenosis in the past, pulmonary hypertension, coronary artery disease, bladder cancer, currently in remission, history of severe anxiety, restrictive lung disease, obstructive sleep apnea, chronic back pain, status post spinal stimulator, anemia secondary to end-stage renal disease and hypertension with hypertensive heart disease. PAST SURGICAL HISTORY: Status post right knee surgery, history of elbow surgery, dorsal stimulator implant in the past, transurethral resection of the bladder tumor in the past, history of quadruple bypass surgery with mitral valve replacement. ALLERGIES: The patient is allergic to PENICILLIN, AMPICILLIN, ASPIRIN and CEFTRIAXONE. FAMILY HISTORY: No significant family history of end-stage renal disease requiring hemodialysis. SOCIAL HISTORY: The patient lives at home with his . He denies any smoking, illicit drug abuse or alcohol abuse. REVIEW OF SYSTEMS: Constitutional: He denies any fevers and chills. Eyes: He denies any blurry vision, double vision. Ears, Nose, Throat (ENT): Denies any dysphagia, odynophagia. Cardiovascular: He denies any palpitations. He does report right-sided chest pain, but he has history of right-sided rib fracture as well. Respiratory: He does report mild shortness of breath. Gastrointestinal (GI): He denies any nausea or vomiting. Genitourinary: He denies any dysuria or hematuria. Musculoskeletal: He reports right shoulder pain and right-sided rib pain. Skin: He denies any rashes or ulcers. Psychiatric: He denies any depression or anxiety. Endocrine: He reports diabetes mellitus type 2 and secondary hyperparathyroidism. Hematology/Oncology: He denies any easy bleeding or bruising. All other review of systems is negative. PHYSICAL EXAMINATION: General: The patient is awake, alert, oriented times three, sitting up on the sofa in no apparent distress. Vital signs: Temperature is 97.7 degrees Fahrenheit, blood pressure 107/85, pulse is 76, respiratory rate of 19, saturating 92% on room air. Head and neck exam: Extraocular muscles intact. Pupils equally round and reactive to light. Mucous membranes are moist. Neck is supple. There is mild elevation of jugular venous distention (JVD). He has a right IJ tunneled hemodialysis catheter. Cardiovascular: S1, S2, regular rate, 2+ edema of the bilateral lower extremities. Respiratory: Mildly decreased breath sounds at the bases, otherwise no active rales or rhonchi. Abdomen: Soft, positive bowel sounds. No organomegaly. Genitourinary: Bladder is not palpable. No hernia noted. Musculoskeletal: No clubbing or cyanosis. 2+ edema of the bilateral lower extremities. Central nervous system (ELEVATOR STARTER): No focal deficit. Power is 5/5 in all extremities. Arteriovenous (AV) Access: He has a left arm AV fistula with positive thrill and bruit. LAB REVIEW: CBC showed a WBC of 13.3, hemoglobin 10.7, platelets are 158. BMP showed sodium 137, potassium 3.7, chloride 97, bicarbonate 35, BUN 42, creatinine is 4, glucose is 128, pro-BNP is 4341. IMAGING: A chest x-ray was done today, which showed right IJ double lumen catheter, atelectasis in the right lung had improved, nondisplaced fracture of the posterior arch of the right seventh rib. HOME MEDICATIONS. The patient's home medications include albuterol as needed, alprazolam as needed for anxiety, vitamin C 500 mg by mouth daily, Lipitor 20 mg nightly, baclofen 10 mg as needed, benzonatate as needed, calcitriol 0.25 mcg by mouth three times a week, Coreg 6.25 mg by mouth twice a day, cetirizine 10 mg nightly, Plavix 75 mg by mouth daily, vitamin D 2000 units by mouth daily, Pepcid one tablet by mouth twice a day, Uloric 80 mg by mouth every other day, morphine 15 mg by mouth every 6 hours, paroxetine 20 mg nightly, prednisone 6 mg by mouth daily, spironolactone 25 mg by mouth daily, Velphoro 500 mg by mouth three times a day, Spiriva two puffs daily, torsemide 100 mg by mouth daily. ASSESSMENT: A 74-year-old male with past medical history of end-stage renal disease on dialysis every Friday, Friday, Friday, history of chronic diastolic congestive heart failure, chronic gout, diabetes mellitus type 2, this presentation with persistent pain on the right side chest, right shoulder and shortness of breath. PLAN: 1. End-stage renal disease, on hemodialysis. The patient does have some signs of fluid overload, but he does not need any urgent admission at this time. I talked to the dialysis center as outpatient, and I have arranged his extra session of ultrafiltration to be done today in the afternoon at 4:00 p.m. The patient will get 3 hours of ultrafiltration and about 3 kg of fluid will be removed. 2. Right-sided chest pain. Repeat chest x-ray showed improvement in the atelectasis. Pain is being optimized with opioids. If needed, he can be given nonsteroidal anti-inflammatory drugs (NSAIDs) as well. Cardiac enzymes are negative. Further optimization of fluid status would improve his shortness of breath as well. No need of admission to the hospital at this time. 3. Chronic diastolic congestive heart failure. Volume status is slightly decompensated. Continue home dose of spironolactone and torsemide. The patient will get extra session of ultrafiltration today. Three liters of fluid will be removed, and he will get more fluid removed during hemodialysis as per his regular schedule tomorrow as an outpatient. Continue home dose of Coreg 6.25 mg by mouth twice a day. 4. Anemia in end-stage renal disease. Hemoglobin is 10.7, which is optimal. Rest of the anemia management will be done as an outpatient. 5. Disposition: It is okay to discharge the patient from a nephrology standpoint from the emergency room after optimization of his pain. He can follow up with orthopedic surgery and get his right shoulder injection, and after that, he will get the ultrafiltration done at dialysis center at 4:00 p.m. today. Plan of care was discussed with the ER physician, Dr. Combs. The patient himself and his agree with the plan.
== END 2019-09-02 12:23 | disposition home or self-care (01) ==
LOC: M ED 06:44
DX: I50.32 Chronic diastolic (congestive) heart failure (principal); S22.31XA Fracture of one rib, right side, initial encounter for closed fracture; X50.3XXA Overexertion from repetitive movements, initial encounter; Y92.89 Other specified places as the place of occurrence of the external cause; N18.6 End stage renal disease; Z99.81 Dependence on supplemental oxygen; H92.01 Otalgia, right ear; E11.22 Type 2 diabetes mellitus with diabetic chronic kidney disease; Z95.2 Presence of prosthetic heart valve; Z95.1 Presence of aortocoronary bypass graft; I25.2 Old myocardial infarction; I35.2 Nonrheumatic aortic (valve) stenosis with insufficiency; I27.20 Pulmonary hypertension, unspecified; I25.10 Atherosclerotic heart disease of native coronary artery without angina pectoris; Z85.51 Personal history of malignant neoplasm of bladder; F41.9 Anxiety disorder, unspecified; G47.33 Obstructive sleep apnea (adult) (pediatric); J44.9 Chronic obstructive pulmonary disease, unspecified; M54.9 Dorsalgia, unspecified; I13.2 Hypertensive heart and chronic kidney disease with heart failure and with stage 5 chronic kidney disease, or end stage renal disease; D63.1 Anemia in chronic kidney disease; M10.9 Gout, unspecified; R06.02 Shortness of breath; Z88.0 Allergy status to penicillin; Z88.1 Allergy status to other antibiotic agents; Z88.6 Allergy status to analgesic agent; Z79.899 Other long term (current) drug therapy; Z79.02 Long term (current) use of antithrombotics/antiplatelets; Z79.891 Long term (current) use of opiate analgesic; Z79.52 Long term (current) use of systemic steroids
CPT/HCPCS: 36415; 71045; 80048; 82550; 82553; 83880; 84484; 85025; 87040; 93005; 93041; 94760; 96374; 96375; 96376; 99285; J1885; J2270

== ENCOUNTER 2019-09-13 11:55 | Emergency (ER) | payer MEDICARE, OTHER ==
[~2019-09-13] VITALS: Ht 167.6 cm; Wt 102.3 kg
[~2019-09-13 11:55] MED LIST changes: +KETO10TAB PO
--- NOTE | 2019-09-13 12:29 | REP ---
CT brain: 09/14/2019. Indication: Head trauma. Comparison: 04/09/2019. Technique: Unenhanced axial CT images of the brain were obtained from skull base to vertex. Findings: There is no acute intracranial hemorrhage, acute cortical infarction, mass effect, hydrocephalus or acute calvarial fracture. Diffuse volume loss is present. There are patchy areas of cerebral white matter hypoattenuation most consistent with chronic small vessel disease. Small area of encephalomalacia is noted within the right occipital lobe consistent with a chronic ENGINE DYNAMOMETER TESTER infarction. Impression: No acute intracranial process. Sequelae of chronic ischemia and diffuse volume loss. Electronically Signed by David Vazquez DO 09/13/2019 12:20 P
--- NOTE | 2019-09-13 12:37 | REP ---
CT cervical spine: 09/14/2019. Indication: Cervical spine trauma. Comparison: 04/09/2019. Technique: Unenhanced axial CT images of the cervical spine were obtained with coronal and sagittal reconstructions provided. Findings: Image quality is degraded by patient motion and quantum mottle artifact. There is no evidence of acute fracture, subluxation or dislocation. There is reversal of the cervical lordosis. Disc space narrowing and diffuse disc osteophytes are present throughout with the exception of C2/C3. Multiple subchondral cysts are redemonstrated. There is no evidence of hemorrhage within the spinal canal or additional spinal canal acute post traumatic sequelae. Impression: No acute osseous injury of the cervical spine detected. Electronically Signed by David Vazquez DO 09/13/2019 12:29 P
[2019-09-13 13:17] VITALS: BP 143/70
== END 2019-09-13 13:14 | disposition home or self-care (01) ==
LOC: M ED 11:55
DX: S01.81XA Laceration without foreign body of other part of head, initial encounter (principal); R26.81 Unsteadiness on feet; W19.XXXA Unspecified fall, initial encounter; Y92.098 Other place in other non-institutional residence as the place of occurrence of the external cause; I11.0 Hypertensive heart disease with heart failure; I50.9 Heart failure, unspecified; E11.22 Type 2 diabetes mellitus with diabetic chronic kidney disease; N18.6 End stage renal disease; G47.33 Obstructive sleep apnea (adult) (pediatric); M10.9 Gout, unspecified; J44.9 Chronic obstructive pulmonary disease, unspecified; Z95.1 Presence of aortocoronary bypass graft; Z85.51 Personal history of malignant neoplasm of bladder; Z99.2 Dependence on renal dialysis; Z88.0 Allergy status to penicillin; Z88.1 Allergy status to other antibiotic agents; Z88.6 Allergy status to analgesic agent; Z79.899 Other long term (current) drug therapy; Z79.02 Long term (current) use of antithrombotics/antiplatelets; Z79.51 Long term (current) use of inhaled steroids; Z79.52 Long term (current) use of systemic steroids

== ENCOUNTER 2019-09-30 07:18 | Emergency (ER) | payer MEDICARE, OTHER ==
[~2019-09-30] VITALS: Ht 167.6 cm; Wt 101.1 kg
[~2019-09-30 07:18] MED LIST changes: -BACL10TA2; -BENZ-18; +BENZ-18 PO; -CALC1TAB61; +CALC1TAB61 PO
[2019-09-30] MEDS ORDERED: MORPHINE 15 MG SA TAB PO ONE (08:00)
--- NOTE | 2019-09-30 08:58 | REP ---
Clinical: Left groin pain. Technique: Real time castellano scale examination using linear high frequency and curved array transducers. Findings: Bilateral fat containing inguinal hernias are appreciated. Right hernia increases on Valsalva from 2.4 cm maximal diameter to 3.5 cm maximal diameter. Left hernia increases on Valsalva from 1.8 cm maximal diameter to 2.4 cm maximal diameter. Impression: Bilateral fat containing inguinal hernias. Electronically Signed by Krishan Mead MD 09/30/2019 08:50 A
--- NOTE | 2019-09-30 09:01 | REP ---
Clinical: Left groin pain. Technique: Frontal view of the pelvis with neutral and frog lateral views of the left hip. Findings: No evidence for acute fracture dislocation. Right hip is normal for age. Left hip demonstrates early arthritic degenerative changes including subchondral sclerosis and subtle heterogeneity to the femoral head with small spurring along the inferior anatomical neck and joint space narrowing. Evidence for peripheral vascular disease. Impression: Early osteoarthritic degenerative changes to the left hip. Electronically Signed by Krishan Mead MD 09/30/2019 08:53 A
[2019-09-30] MEDS ORDERED: HYDROMORPHONE HCL 0.5 MG/ 0.5 ML SYRINGE (J1170 PER 1) IV PRN (09:45)
[2019-09-30 10:53] LABS: BASO # 0.1 10^3/uL (0.0-0.2); BASO % 0.5 % (0.0-1.0); EOS # 0.3 10^3/uL (0.0-0.5); EOS % 2.8 % (0.0-3.0); HEMOGLOBIN 10.3 g/dl (13.5-17.5); LYMPH # 1.1 10^3/uL (1.5-5.0); LYMPH % 10.1 % (24.0-44.0); MEAN CORPUSCULAR HEMOGLOBIN 33.9 pg (27.0-33.0); MEAN CORPUSCULAR HGB CONC 32.2 g/dl (32.0-36.5); MEAN CORPUSCULAR VOLUME 105.3 fl (80.0-96.0); MONO # 0.8 10^3/uL (0.0-0.8); MONO % 7.3 % (0.0-5.0); NEUTROPHILS # 8.5 10^3/uL (1.5-8.5); PLATELET COUNT, AUTOMATED 208 10^3/uL (150-450); RED BLOOD COUNT 3.04 10^6/uL (4.30-6.10)
[2019-09-30 11:13] LABS: CREATININE FOR GFR 3.26 MG/DL (0.70-1.30); GLOMERULAR FILTRATION RATE 19.8 (>42); POTASSIUM SERUM 3.9 MEQ/L (3.5-5.1)
[2019-09-30] MEDS ORDERED: ISOVUE-370 76% 100ML VIAL (Q9967) As Ordered ONE (11:27)
[2019-09-30 12:00] VITALS: BP 124/57
--- NOTE | 2019-09-30 12:05 | REP ---
Clinical: Left groin pain. Technique: Axial contrast enhanced images from the lung bases to the pubic symphysis using arterial angiographic technique with coronal and sagittal re-formations. 100 ml Isovue 370 intravenous contrast material administered without complication. Findings: Mild/moderate scattered atherosclerotic changes to the aorta and branch vessels noted. There is no evidence for abdominal aortic aneurysm or dissection and the major branch vessels to the level of the bilateral proximal superficial femoral arteries demonstrate satisfactory enhancement without occlusion. Liver, spleen, pancreas, and bilateral adrenal glands are essentially normal. The kidneys demonstrate age-related atrophic changes along with chronic symmetric perinephric stranding. Cholelithiasis noted without acute cholecystitis. The enteric system is without obstruction or acute inflammatory process. Pelvis demonstrates enlarged prostate gland with mass effect on the base of the bladder. Moderate fat containing inguinal hernias noted without acute inflammatory stranding. No ascites. No free air. No adenopathy. Osseous structures demonstrate degenerative changes. Lung bases demonstrate chronic fibroatelectatic changes along with small right pleural reaction and adjacent atelectasis as well as a 1.4 cm noncalcified nodule which appears to be a relatively new finding as compared with chest CT dated 2016. Impression: 1. Atherosclerotic changes to the aorta and vasculature as described above without evidence for significant stenosis or occlusion. 2. Moderate fat containing inguinal hernias. 3. Cholelithiasis without acute cholecystitis. 4. No further acute abdominopelvic pathology appreciated. 5. Prostatomegaly. 6. 1.4 cm noncalcified nodule at the right lung base warrants short-term 3 - 6 month follow-up examination. 7. Further nonacute findings as above. Electronically Signed by Krishan Mead MD 09/30/2019 11:57 A
--- NOTE | 2019-10-01 13:59 | ED PDOC ---
Post-Departure Follow-Up dr perez faxed formal report of ct abd/p for fu Mariposa Griffiths MD Oct 01, 2019 13:59
== END 2019-09-30 12:43 | disposition home or self-care (01) ==
LOC: M ED 07:18
DX: K40.20 Bilateral inguinal hernia, without obstruction or gangrene, not specified as recurrent (principal); I73.9 Peripheral vascular disease, unspecified; R91.1 Solitary pulmonary nodule; E11.9 Type 2 diabetes mellitus without complications; I10 Essential (primary) hypertension; J44.9 Chronic obstructive pulmonary disease, unspecified; J45.909 Unspecified asthma, uncomplicated; N28.9 Disorder of kidney and ureter, unspecified; F33.9 Major depressive disorder, recurrent, unspecified; F41.9 Anxiety disorder, unspecified; Z99.2 Dependence on renal dialysis; Z79.899 Other long term (current) drug therapy; Z88.0 Allergy status to penicillin; Z88.1 Allergy status to other antibiotic agents; Z88.8 Allergy status to other drugs, medicaments and biological substances; Z87.891 Personal history of nicotine dependence
CPT/HCPCS: 36415; 73502; 74174; 76857; 80048; 83605; 85025; 99284; Q9967

== ENCOUNTER 2019-10-02 14:26 | Emergency (ER) | payer MEDICARE, OTHER ==
[~2019-10-02] VITALS: Ht 167.6 cm; Wt 98.2 kg
[2019-10-02] MEDS ORDERED: NALOXONE INJ 0.4 MG/1 ML VIAL (J2310) IV ONE (14:45)
--- NOTE | 2019-10-02 15:15 | ECGEPIP ---
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
[2019-10-02] MEDS ORDERED: SPIR-10 PO (15:19)
[2019-10-02] MEDS ORDERED: CYMB60CA3 PO (15:19)
[2019-10-02] MEDS ORDERED: CO Q200C10 PO (15:19)
[2019-10-02 15:24] LABS: BASO % 0.4 % (0.0-1.0); EOS # 0.3 10^3/uL (0.0-0.5); EOS % 2.3 % (0.0-3.0); HEMATOCRIT 31.2 % (42.0-52.0); HEMOGLOBIN 9.8 g/dl (13.5-17.5); LYMPH # 1.2 10^3/uL (1.5-5.0); LYMPH % 11.5 % (24.0-44.0); MEAN CORPUSCULAR HEMOGLOBIN 33.3 pg (27.0-33.0); MEAN CORPUSCULAR HGB CONC 31.4 g/dl (32.0-36.5); MEAN CORPUSCULAR VOLUME 106.1 fl (80.0-96.0); NEUTROPHILS # 8.1 10^3/uL (1.5-8.5); NEUTROPHILS % 74.7 % (36.0-66.0); PLATELET COUNT, AUTOMATED 201 10^3/uL (150-450); RED BLOOD COUNT 2.94 10^6/uL (4.30-6.10); WHITE BLOOD COUNT 10.8 10^3/uL (4.0-10.0)
[2019-10-02 16:35] LABS: ACETAMINOPHEN LEVEL < 2.0 UG/ML (10.0-30.0); ALBUMIN 3.3 GM/DL (3.2-5.2); ALT/SGPT 22 U/L (12-78); BILIRUBIN,DIRECT 0.2 MG/DL (0.0-0.2); BILIRUBIN,TOTAL 0.5 MG/DL (0.2-1.0); BLOOD UREA NITROGEN 20 MG/DL (7-18); CALCIUM LEVEL 8.5 MG/DL (8.8-10.2); CARBON DIOXIDE LEVEL 35 MEQ/L (21-32); CHLORIDE LEVEL 92 MEQ/L (98-107); CK-MB VALUE MASS 2.1 NG/ML (<3.6); CPK CREATINE PHOSPHOKINASE 44 U/L (39-308); CREATININE FOR GFR 3.89 MG/DL (0.70-1.30); GLOMERULAR FILTRATION RATE 16.2 (>42); GLUCOSE, FASTING 109 MG/DL (70-100); MB/CK RELATIVE INDEX 4.77 (< OR =4); POTASSIUM SERUM 3.4 MEQ/L (3.5-5.1); SALICYLATE LEVEL < 1.7 MG/DL (5.0-30.0); SODIUM LEVEL 135 MEQ/L (136-145); TOTAL PROTEIN 6.6 GM/DL (6.4-8.2); TROPONIN I < 0.02 NG/ML (< 0.10)
[2019-10-02] MEDS ORDERED: HYDROMORPHONE HCL 0.5 MG/ 0.5 ML SYRINGE (J1170 PER 1) IV ONE (17:00)
[2019-10-02] MEDS ORDERED: DOXY-350 PO (17:58)
[2019-10-02 18:07] VITALS: BP 167/88
[2019-10-03] MEDS ORDERED: DOXY100T27 PO (02:55)
[2019-10-03] MEDS ORDERED: GLYC2SUP PR (02:55)
[2019-10-03] MEDS ORDERED: CLIN150C14 PO (08:57)
== END 2019-10-02 18:09 | disposition home or self-care (01) ==
LOC: M ED 14:26 → EDBD 14:26 → EDSEX 14:26 → M ED 18:09
DX: R53.83 Other fatigue (principal); M70.22 Olecranon bursitis, left elbow; M54.9 Dorsalgia, unspecified; N28.9 Disorder of kidney and ureter, unspecified; I11.9 Hypertensive heart disease without heart failure; Z95.1 Presence of aortocoronary bypass graft; Z87.891 Personal history of nicotine dependence; Z88.0 Allergy status to penicillin; Z88.1 Allergy status to other antibiotic agents; Z88.6 Allergy status to analgesic agent; Z79.899 Other long term (current) drug therapy; Z79.02 Long term (current) use of antithrombotics/antiplatelets; Z79.52 Long term (current) use of systemic steroids

== ENCOUNTER 2019-10-03 00:15 | Observation (INO) | payer MEDICARE, OTHER ==
[~2019-10-03] VITALS: Ht 167.6 cm; Wt 99.0 kg
[~2019-10-03 00:15] MED LIST changes: +CO Q200C10 PO; +CYMB60CA3 PO; +DOXY-350 PO
[2019-10-03] MEDS ORDERED: NORCO, ANEXSIA 5/325MG TABLET (HYDROcodone/ACETAMINOPHEN) PO ONE (01:00)
[2019-10-03 01:32] LABS: BASO % 0.3 % (0.0-1.0); EOS # 0.3 10^3/uL (0.0-0.5); EOS % 2.3 % (0.0-3.0); HEMATOCRIT 28.8 % (42.0-52.0); HEMOGLOBIN 9.4 g/dl (13.5-17.5); LYMPH # 1.5 10^3/uL (1.5-5.0); MEAN CORPUSCULAR HEMOGLOBIN 33.5 pg (27.0-33.0); MEAN CORPUSCULAR HGB CONC 32.6 g/dl (32.0-36.5); MEAN CORPUSCULAR VOLUME 102.5 fl (80.0-96.0); MONO # 1.3 10^3/uL (0.0-0.8); MONO % 8.5 % (0.0-5.0); NEUTROPHILS # 11.6 10^3/uL (1.5-8.5); NEUTROPHILS % 77.6 % (36.0-66.0); PLATELET COUNT, AUTOMATED 206 10^3/uL (150-450); RED BLOOD COUNT 2.81 10^6/uL (4.30-6.10)
[2019-10-03 01:58] LABS: CALCIUM LEVEL 8.9 MG/DL (8.8-10.2); CREATININE FOR GFR 4.37 MG/DL (0.70-1.30); GLOMERULAR FILTRATION RATE 14.1 (>42); POTASSIUM SERUM 3.7 MEQ/L (3.5-5.1)
--- NOTE | 2019-10-03 02:01 | REPVR ---
PROCEDURE INFORMATION: Exam: US Left Non-Vascular Joint or Other Extremity Structure, Limited Upper Extremity Exam date and time: 10/03/2019 1:12 AM Age: 74 years old Clinical history: Pain; Elbow; Left; Additional info: Eval L elbow abscess TECHNIQUE: Imaging protocol: Left US Non-Vascular Joint or Other Extremity Structure. Limited exam of the upper extremity. COMPARISON: CR Elbow, complete 03/26/2017 3:54 PM FINDINGS: Soft tissues: There is a complex subcutaneous fluid collection in the lateral elbow measuring approximately 3.5 x 0.7 x 3.6 cm. No internal blood flow in the collection or surrounding hyperemia. Bones/joints: Unremarkable. IMPRESSION: Complex subcutaneous fluid collection. Possible abscess, hematoma, or complex seroma. No internal blood flow in the collection. Electronically signed by: Emanuel Velasquez On 10/03/2019 02:00:50 AM
[2019-10-03] MEDS ORDERED: CLINDAMYCIN 300 MG in IV 1 EA IV ONE (02:15)
[2019-10-03] MEDS ORDERED: VANCOMYCIN HCL 750 MG, VIAL MATE ADAPTER 1 EACH in D5W 250 ML IV ONE (02:15)
[2019-10-03] MEDS ORDERED: GLYC2SUP PR (02:55)
[2019-10-03] MEDS ORDERED: DOXY100T27 PO (02:55)
[2019-10-03] MEDS ORDERED: LORazepam 2 MG TAB PO STA (03:11)
--- NOTE | 2019-10-03 03:23 | HPEPDOC ---
[facility] Medical History & Physical Date of Admission Oct 03, 2019 Date of Service: Oct 03, 2019 Primary Care Physician: Jr Dill Collins Attending Physician: ALEX GONZALEZ MD History and Physical TIME OF SERVICE: 3:40 AM CHIEF COMPLAINT: Elbow pain HISTORY OF PRESENT ILLNESS: This is a 74-year-old male but was here earlier on this evening complaining of left elbow pain and swelling. He was diagnosed with olecranon bursitis and sent home. Unfortunately, his pharmacy closed and he was unable to get the medications. He came back early this morning because the redness, pain and swelling was much worse than it was yesterday. REVIEW OF SYSTEMS: 12 point review of systems negative except as listed in HPI PAST MEDICAL /SURGICAL HISTORY: ESRD on dialysis Friday, Friday and Friday via left arm AV fistula and Port-A-Cath History of vascular steal syndrome Anemia of chronic disease complicated by anemia Chronic Diastolic dysfunction. Mitral valve prosthesis. Aortic stenosis. Mild pulmonary hypertension. History of ahu-lkqfcyf-ebgtkqlut type 2 diabetes mellitus (no longer on medications) CAD status post quadruple bypass. History of bladder cancer twice (is currently in remission). Gout. Restrictive lung disease. ABELARDO/OHS (not compliant with BiPAP) Chronic back pain with spinal stimulator implant. Anxiety. History of right knee surgery. History of elbow surgery SOCIAL HISTORY: Marital status: . Tobacco use: Former smoker FAMILY HISTORY: Mother: Diabetes ALLERGIES: Please see below. PHYSICAL EXAMINATION: VITAL SIGNS: Please see below. NORMAL PHYSICAL EXAM GEN: well nourished / well developed/ NAD / seated up in hospital chair INTEGUMENT: He has rubor, dolor and calor affecting the left elbow HEENT: normocephalic / atramatic CVS: RRR/NMRG / he has a port-a-cath at the right upper chest LUNGS: lungs are clear to auscultation bilaterally on room air MSK/EXTREMITIES: range of motion intact in all 4 extremities except for left elbow where range of motion is limited by pain/ there is an AV fistula at the upper extremity NEURO: CN 2-12 are grossly intact / speech is not dysarthric PSYCH: alert and oriented to person place and time/ able to understand and follow all commands LABORATORY DATA: See below. IMAGING: Ultrasound of left elbow " IMPRESSION: Complex subcutaneous fluid collection. Possible abscess, hematoma, or complex seroma. No internal blood flow in the collection. " MICROBIOLOGY: Please see below. ASSESSMENT: Mr. Mckeon is a 74-year-old with a medical history of ESRD, HFpEF, CAD w CABG, MV prosthesis, bladder cancer in remission, gout, restrictive lung disease, ABELARDO/OHS, and chronic back pain that is admitted for management of left olecranon bursitis/cellulitis. PLAN: 1. Left olecranon bursitis/cellulitis Ultrasound report reviewed. The only SIRS criteria he has his leukocytosis, but based on chart review, this is chronic. Received clindamycin in the ER Plan: Switch to by mouth clindamycin the morning / the daytime team may consider orthotic consult in the morning 2. ESRD with multifactorial anemia Plan: Follow-up with [facility] for dialysis on Friday as scheduled /calcitriol, vitamin D, multivitamins 3. Restrictive lung disease. Stable Plan: Albuterol, Spiriva 4. Chronic CAD status post quadruple bypass. Plan: Atorvastatin and Coreg 5. Anxiety Plan: Alprazolam, duloxetine 6. Chronic HTN/ chronic HFpEF Plan: Coreg 7. Gout. Plan: Febuxostat 8. Chronic back pain with spinal stimulator implant. Plan: baclofen, morphine 9. Obesity. BMI is 35.6 complicates care DVT prophylaxis with SCDs Disposition likely home after less than 2 midnight stay Vital Signs Vital Signs Date Time Temp Pulse Resp B/P (MAP) Pulse Ox O2 Delivery O2 Flow Rate FiO2 10/03/19 01:31 14 10/03/19 00:32 10/03/19 00:16 97.9 86 92 Room Air Laboratory Data Labs 24H Laboratory Tests 2 10/03/19 01:15: Immature Granulocyte % (Auto) 1.3, Neutrophils (%) (Auto) 77.6H, Lymphocytes (%) (Auto) 10.0L, Monocytes (%) (Auto) 8.5H, Eosinophils (%) (Auto) 2.3, Basophils (%) (Auto) 0.3, Neutrophils # (Auto) 11.6H, Lymphocytes # (Auto) 1.5, Monocytes # (Auto) 1.3H, Eosinophils # (Auto) 0.3, Basophils # (Auto) 0.0, Nucleated Red Blood Cells % (auto) 0.0, Anion Gap 11, Glomerular Filtration Rate 14.1L, Calcium Level 8.9 CBC/BMP Laboratory Tests 10/03/19 01:15 Microbiology Microbiology 10/03/19 Blood Culture, Received Pending Home Medications Scheduled Atorvastatin Calcium (Atorvastatin Calcium) 20 Mg Tablet, 20 MG PO QHS Ca/D3/Mag Ox/Zinc/Natural Resource Technician/Uche/Bor (Calcium 600-D3 Plus Caplet) 1 Each Tablet, 1 TAB PO DAILY Calcitriol (Calcitriol) 0.25 Mcg Capsule, 0.25 MCG PO 3XW RECEIVES AT DIALYSIS ON FRIDAY, FRIDAY AND FRIDAY Carvedilol (Carvedilol) 6.25 Mg Tablet, 6.25 MG PO BID Clopidogrel Bisulfate (Clopidogrel) 75 Mg Tablet, 75 MG PO DAILY Docusate Sodium (Docusate Sodium) 100 Mg Capsule, 100 MG PO BID Doxycycline Monohydrate (Doxycycline Monohydrate) 100 Mg Tablet, 100 MG PO BID NEW RX, HAS NOT STARTED Duloxetine Hcl (Cymbalta) 60 Mg Capsule.dr, 60 MG PO DAILY Ergocalciferol (Vitamin D2) (Vitamin D2) 2,000 Unit Tablet, 4,000 UNITS PO DAILY Febuxostat (Uloric) 80 Mg Tablet, 80 MG PO Q2D AT BEDTIME Lactobacillus Acidophilus (Probiotic) 1 Each Capsule, 1 CAP PO QHS Multivitamins (Thera M Plus Tablet) 1 Each Tablet, 1 TAB PO DAILY Naldemedine Tosylate (Symproic) 0.2 Mg Tablet, 0.2 MG PO DAILY Prednisone (Prednisone) 1 Mg Tablet, 6 MG PO DAILY Tiotropium [place] (Spiriva Respimat) 4 Gm Mist.inhal, 2 PUFFS INH DAILY Ubidecarenone (Co Q-10) 200 Mg Capsule, 200 MG PO BID Scheduled PRN Albuterol Sulf (Albuterol Sulfate) 2.5 Mg/3 Ml Vial.neb, 2.5 MG INH Q2H PRN for SOB/WHEEZING Albuterol Sulfate (Proair Hfa) 8.5 Gm Hfa.aer.ad, 2 PUFF INH QID PRN for SHORTNESS OF BREATH Alprazolam (Alprazolam) 0.25 Mg Tablet, 0.25 MG PO TID PRN for ANXIETY Baclofen (Baclofen) 10 Mg Tablet, 10 MG PO BID PRN for MUSCLE SPASMS Benzonatate (Benzonatate) 100 Mg Capsule, 100 MG PO TID PRN for COUGH Glycerin (Adult Glycerin) 1 Each Supp.rect, 1 EA NV DAILY PRN for CONSTIPATION Hydroxyzine HCl (Hydroxyzine HCl) 25 Mg Tablet, 25 MG PO TID PRN for ITCHING Morphine Sulfate (Morphine Sulfate) 15 Mg Tablet, 15 MG PO Q6H PRN for PAIN Allergies Coded Allergies: aspirin (Verified Allergy, Severe, LIPS SWELL, 03/29/19) Penicillins (Verified Allergy, Intermediate, RASH, 04/15/19) ampicillin (Verified Allergy, Intermediate, HIVES, 03/17/19) ceftriaxone (Verified Allergy, Unknown, UNKNOWN REACTION, 04/09/19) ALEX GONZALEZ MD Oct 03, 2019 03:23
[2019-10-03] MEDS ORDERED: ACETAMINOPHEN TAB 650MG DOSE (2X325MG) PO PRN (03:30)
[2019-10-03 04:39] VITALS: BP 156/80
[2019-10-03] MEDS ORDERED: ALBUTEROL 90 MCG/ACT 8GM HFA INHALER INH PRN (04:45)
[2019-10-03] MEDS ORDERED: GLYCERIN ADULT SUPP PR PRN (04:45)
[2019-10-03] MEDS ORDERED: ALPRAZolam 0.25 MG TAB PO PRN (04:45)
[2019-10-03] MEDS ORDERED: ALBUTEROL SULFATE 2.5 MG/0.5 ML INH NEB SOLN INH PRN (04:45)
[2019-10-03] MEDS ORDERED: hydrOXYzine 25 MG TAB PO PRN (04:45)
[2019-10-03] MEDS ORDERED: BACLOFEN 10 MG TAB PO PRN (04:45)
[2019-10-03] MEDS ORDERED: MORPHINE 30 MG TAB **MSIR PO PRN (04:45)
[2019-10-03] MEDS ORDERED: BENZONATATE 100 MG CAP PO PRN (04:45)
[2019-10-03] MEDS ORDERED: SODIUM CHLORIDE NASAL 0.65% SPRAY BTL (OCEAN) PRN (05:00)
[2019-10-03] MEDS ORDERED: TIOTROPIUM INHALER/CAPSULE (SPIRIVA) INH SCH (08:00)
[2019-10-03 08:19] LABS: C REACTIVE PROTEIN QUANTITATIV 2.37 MG/DL (0.00-0.30)
[2019-10-03 08:53] VITALS: BP 130/65
[2019-10-03] MEDS ORDERED: CLIN150C14 PO (08:57)
[2019-10-03] MEDS ORDERED: SYMPROIC PO SCH (09:00)
[2019-10-03] MEDS ORDERED: CALCIUM/VITAMIN D 500 MG TAB PO SCH (09:00)
[2019-10-03] MEDS ORDERED: CLINDAMYCIN 150 MG CAP PO SCH (09:00)
[2019-10-03] MEDS ORDERED: CARVedilol 6.25 MG TAB PO SCH (09:00)
[2019-10-03] MEDS ORDERED: VITAMIN D 1,000 INTERNATIONAL UNITS TABLET PO SCH (09:00)
[2019-10-03] MEDS ORDERED: predniSONE 5 MG TAB PO SCH (09:00)
[2019-10-03] MEDS ORDERED: predniSONE 1 MG TAB PO SCH (09:00)
[2019-10-03] MEDS ORDERED: MULTIVITAMINS/MINERALS THERAP 1 TAB PO SCH (09:00)
[2019-10-03] MEDS ORDERED: CLOPIDOGREL 75 MG TAB PO SCH (09:00)
[2019-10-03] MEDS ORDERED: DOCUSATE SODIUM 100 MG CAP PO SCH (09:00)
[2019-10-03] MEDS ORDERED: DULoxetine 30 MG CAP (CYMBALTA) PO SCH (09:00)
[2019-10-03 09:07] LABS: ERYTHROCYTE SEDIMENTATION RATE 68 mm/hr (0-20)
--- NOTE | 2019-10-03 10:04 | CR ---
DATE OF CONSULTATION: 10/03/2019 CHIEF COMPLAINT: Left elbow pain. HISTORY OF PRESENT ILLNESS: This is a 74-year-old male with an approximate two day history of left elbow pain and posterior swelling. He was initially seen in the emergency room and diagnosed with olecranon bursitis and sent home. He was unable to get antibiotic medications that were prescribed due to his pharmacy being closed so he returned early this morning as he felt his symptoms were worsening. PAST MEDICAL HISTORY: 1. End stage renal disease on dialysis. 2. History of vascular steal syndrome. 3. Anemia of chronic disease. 4. Chronic diastolic dysfunction. 5. Mitral valve prolapse. 6. Aortic stenosis. 7. Mild pulmonary hypertension. 8. Type 2 diabetes, no longer on medication. 9. Coronary artery disease (CAD) status post quadruple bypass. 10. History of bladder cancer, currently in remission. 11. Gout. 12. Restrictive lung disease. 13. Obstructive sleep apnea (ABELARDO). 14. Chronic back pain with spinal stimulator implant. 15. Anxiety. 16. History of right knee surgery. 17. History of elbow surgery. SOCIAL HISTORY: Patient is . He is a former smoker. ALLERGIES: Multiple. Please refer to the patient's chart. PHYSICAL EXAMINATION: VITAL SIGNS: Temperature 98.4, pulse has been between 78 and 97, respiratory rate 16 to 20, blood pressure 156/80, pulse oximetry 92% on room air. GENERAL: No acute distress, sitting up in hospital chair. HEENT: Atraumatic. HEART: He has a Port-a-Cath in the right upper chest. Regular rhythm. LUNGS: Clear to auscultation bilaterally. MUSCULOSKELETAL: The patient has near full range of motion in his left elbow. He mainly has pain with end stages of flexion. No significant pain with supination/pronation. There is mild swelling and tenderness over the olecranon bursa. There is a bursitis in this area. There is no erythema. No warmth. He is neurovascularly intact in the left upper extremity. IMAGING: An extremity ultrasound was performed of the left elbow and there was found to be a complex fluid collection measuring 3.5 x 0.7 x 3.6 cm without blood flow within. No x-ray has yet been performed. LABORATORY STUDIES: White blood cell count 15, ESR is currently pending. CRP is 2.37. IMPRESSION: Left olecranon bursitis. PLAN: At this point, the patient has only received one dose of antibiotics in the ER. He did receive clindamycin. It does look like he refused the vancomycin that was initially prescribed. I would continue with IV antibiotics while in the hospital, however he does not have to continue to be admitted for this if he is able to go home on p.o. antibiotics. By mouth clindamycin would be acceptable given his multiple antibiotic allergies. Another option would be p.o. Bactrim. I would suggest having him followup at the [facility] with one of the physician's assistants in two days to ensure that he is making appropriate response to the antibiotics. If things are worsening could consider aspiration of the olecranon bursitis. At this point, it does appear to be relatively mild and I suspect that he will make progress once he has had 24-48 hours of antibiotics. I would also suggest an elbow x-ray so that we can have a baseline of that as well. If he is having worsening fevers, chills or other concerning symptoms, could consider aspiration sooner, however again he has only had one dose of antibiotics and suspect that he will continue to improve with further therapy. AKID
[2019-10-03 10:13] VITALS: BP 130/65
--- NOTE | 2019-10-03 11:44 | REP ---
LEFT ELBOW AP LATERAL: 10/03/2019. COMPARISON: Soft tissue ultrasound of the left elbow, 10/03/2019. CLINICAL HISTORY: Elbow pain and swelling. Complex subcutaneous fluid collection by ultrasound. FINDINGS: Two views show some prominent soft tissue swelling about the olecranon as well as the proximal forearm adjacent to the elbow. I do not see definite avulsion fragment from triceps insertion. There are degenerative changes at the elbow and soft tissue swelling medially and laterally as well as some in the antecubital fossa suggested. Radial head and capitellum align normally. No visible fracture or destructive lesion. I cannot define a definite effusion. IMPRESSION: 1. Prominent soft tissue swelling over the olecranon and almost circumferentially about the elbow. Finding may reflect some olecranon bursitis, but ultrasound suggested complex fluid collection such as abscess or hematoma. 2. No visible fracture or impaction deformity. No definite effusion. Electronically Signed by Tani Sweeney MD 10/03/2019 05:05 P
--- NOTE | 2019-10-03 12:43 | DS.PDOC ---
Discharge Summary General Date of Admission Oct 03, 2019 at 00:16 Date of Discharge 10/03/2019 Discharge Summary PROCEDURES PERFORMED DURING STAY: [None]. ADMITTING DIAGNOSES / DISCHARGE DIAGNOSES: Left olecranon bursitis/cellulitis ESRD with multifactorial anemia Restrictive lung disease. Chronic CAD status post quadruple bypass. Anxiety Chronic HTN/ chronic HFpEF Gout Chronic back pain with spinal stimulator implant Obesity DVT prophylaxis COMPLICATIONS/CHIEF COMPLAINT: Left Elbow pain and swelling HISTORY OF PRESENT ILLNESS: This is a 74-year-old male with a significant PMHx who was here earlier this evening complaining of left elbow pain and swelling. He was diagnosed with olecranon bursitis and sent home. Unfortunately, his pharmacy closed and he was unable to get the medications. He came back early this morning because the redness, pain and swelling was much worse than it was yesterday. HOSPITAL COURSE: Patient was placed on observation under the hospitalist service. This morning patient had reported that his elbow was doing significantly better. Orthopedic surgery was: Consultation and had evaluated the patient's left elbow. There does appear to be left olecranon bursitis based on ultrasound in x-rays. Currently patient has improved with antibiotic therapy. Will continue with current antibiotic regimen as an outpatient orally. Will have outpatient follow-up at orthopedic clinic within the next 2 days. Patient has been advised to follow up with orthopedic surgery and primary care provider. Antibiotics have been sent to pharmacy. DISCHARGE MEDICATIONS: Please see below. ALLERGIES: Please see below. PHYSICAL EXAMINATION ON DISCHARGE: Vitals (See below) General: Lying in bed, no acute distress, comfortable, AAOx3 HEENT: NC, AT CVS: RRR, +S1S2 Lungs: Fair air entry b/l, -w/r/r Abdomen: Soft, ND, NT Extremities: - Edema, - Calf tenderness, Mild left elbow tenderness LABORATORY DATA: Please see below. ACTIVITY: [As tolerated]. DISCHARGE PLAN: Follow-up with orthopedic surgery on Friday and primary care provider within 7 days Remain compliant with treatment plan and medications Return to the ER if you experience any problems DISPOSITION: Home DISCHARGE CONDITION: [Stable]. TIME SPENT ON DISCHARGE: 24 minutes Vital Signs/I&Os Vital Signs Date Time Temp Pulse Resp B/P (MAP) Pulse Ox O2 Delivery O2 Flow Rate FiO2 10/03/19 10:13 97 130/65 10/03/19 08:53 97.9 20 90 Room Air I&O- Last 24 Hours up to 6 AM 10/03/19 06:00 Intake Total 50 ml Balance 50 ml Laboratory Data Labs 24H Laboratory Tests 2 10/03/19 01:15: Immature Granulocyte % (Auto) 1.3, Neutrophils (%) (Auto) 77.6H, Lymphocytes (%) (Auto) 10.0L, Monocytes (%) (Auto) 8.5H, Eosinophils (%) (Auto) 2.3, Basophils (%) (Auto) 0.3, Neutrophils # (Auto) 11.6H, Lymphocytes # (Auto) 1.5, Monocytes # (Auto) 1.3H, Eosinophils # (Auto) 0.3, Basophils # (Auto) 0.0, Nucleated Red Blood Cells % (auto) 0.0, Erythrocyte Sedimentation Rate 68H, Anion Gap 11, Glomerular Filtration Rate 14.1L, Calcium Level 8.9, C-Reactive Protein, Quantitative 2.37H 10/03/19 08:45: Bedside Glucose (Misc Panel) 112H CBC/BMP Laboratory Tests 10/03/19 01:15 FSBS Laboratory Tests Test 10/03/19 08:45 Range/Units Bedside Glucose (Misc Panel) 112 83-110 MG/DL Microbiology Microbiology 10/03/19 Blood Culture, Received Pending Discharge Medications Scheduled Atorvastatin Calcium (Atorvastatin Calcium) 20 Mg Tablet, 20 MG PO QHS, (Reported) Ca/D3/Mag Ox/Zinc/Kinder Teacher/Uche/Bor (Calcium 600-D3 Plus Caplet) 1 Each Tablet, 1 TAB PO DAILY, (Reported) Calcitriol (Calcitriol) 0.25 Mcg Capsule, 0.25 MCG PO 3XW, (Reported) RECEIVES AT DIALYSIS ON FRIDAY, FRIDAY AND FRIDAY Carvedilol (Carvedilol) 6.25 Mg Tablet, 6.25 MG PO BID, (Reported) Clindamycin Hcl (Clindamycin HCl) 150 Mg Capsule, 600 MG PO Q8H Clopidogrel Bisulfate (Clopidogrel) 75 Mg Tablet, 75 MG PO DAILY, (Reported) Docusate Sodium (Docusate Sodium) 100 Mg Capsule, 100 MG PO BID, (Reported) Doxycycline Monohydrate (Doxycycline Monohydrate) 100 Mg Tablet, 100 MG PO BID, (Reported) NEW RX, HAS NOT STARTED Duloxetine Hcl (Cymbalta) 60 Mg Capsule.dr, 60 MG PO DAILY, (Reported) Ergocalciferol (Vitamin D2) (Vitamin D2) 2,000 Unit Tablet, 4,000 UNITS PO DAILY, (Reported) Febuxostat (Uloric) 80 Mg Tablet, 80 MG PO Q2D, (Reported) AT BEDTIME Lactobacillus Acidophilus (Probiotic) 1 Each Capsule, 1 CAP PO QHS, (Reported) Multivitamins (Thera M Plus Tablet) 1 Each Tablet, 1 TAB PO DAILY, (Reported) Naldemedine Tosylate (Symproic) 0.2 Mg Tablet, 0.2 MG PO DAILY, (Reported) Prednisone (Prednisone) 1 Mg Tablet, 6 MG PO DAILY, (Reported) Tiotropium [place] (Spiriva Respimat) 4 Gm Mist.inhal, 2 PUFFS INH DAILY, (Reported) Ubidecarenone (Co Q-10) 200 Mg Capsule, 200 MG PO BID, (Reported) Scheduled PRN Albuterol Sulf (Albuterol Sulfate) 2.5 Mg/3 Ml Vial.neb, 2.5 MG INH Q2H PRN for SOB/WHEEZING, (Reported) Albuterol Sulfate (Proair Hfa) 8.5 Gm Hfa.aer.ad, 2 PUFF INH QID PRN for SHORTNESS OF BREATH, (Reported) Alprazolam (Alprazolam) 0.25 Mg Tablet, 0.25 MG PO TID PRN for ANXIETY, (Reported) Baclofen (Baclofen) 10 Mg Tablet, 10 MG PO BID PRN for MUSCLE SPASMS, (Reported) Benzonatate (Benzonatate) 100 Mg Capsule, 100 MG PO TID PRN for COUGH, (Reported) Glycerin (Adult Glycerin) 1 Each Supp.rect, 1 EA [place] DAILY PRN for CONSTIPATION, (Reported) Hydroxyzine HCl (Hydroxyzine HCl) 25 Mg Tablet, 25 MG PO TID PRN for ITCHING, (Reported) Morphine Sulfate (Morphine Sulfate) 15 Mg Tablet, 15 MG PO Q6H PRN for PAIN, (Reported) Allergies Coded Allergies: aspirin (Verified Allergy, Severe, LIPS SWELL, 03/29/19) Penicillins (Verified Allergy, Intermediate, RASH, 04/15/19) ampicillin (Verified Allergy, Intermediate, HIVES, 03/17/19) ceftriaxone (Verified Allergy, Unknown, UNKNOWN REACTION, 04/09/19) FRENCH GALLAGHER MD Oct 03, 2019 12:43
[2019-10-03] MEDS ORDERED: ATORVASTATIN 20 MG TAB PO SCH (21:00)
[2019-10-03] MEDS ORDERED: FEBUXOSTAT 40 MG TABLET (ULORIC) PO SCH (21:00)
[2019-10-04] MEDS ORDERED: CLIN150C14 PO (01:24)
[2019-10-04] MEDS ORDERED: CALCITRIOL 0.25 MCG CAP (S0169) PO SCH (09:00)
[2019-10-04] MEDS ORDERED: PNEUMOCOCCAL VACCINE 0.5ML SYRINGE(90732) PNEUMOVAX 23 IM ONE (09:00)
== END 2019-10-03 13:15 | disposition home or self-care (01) ==
LOC: M ED 00:15 → M ED INP 00:16 → M MS5PR 04:25
PROVIDERS: ADMIT Internal Medicine; ATTEND Internal Medicine
DX: M70.22 Olecranon bursitis, left elbow (principal); L03.114 Cellulitis of left upper limb; N18.6 End stage renal disease; D63.1 Anemia in chronic kidney disease; J98.4 Other disorders of lung; I25.10 Atherosclerotic heart disease of native coronary artery without angina pectoris; Z95.1 Presence of aortocoronary bypass graft; F41.9 Anxiety disorder, unspecified; I13.11 Hypertensive heart and chronic kidney disease without heart failure, with stage 5 chronic kidney disease, or end stage renal disease; I50.32 Chronic diastolic (congestive) heart failure; M10.9 Gout, unspecified; M54.9 Dorsalgia, unspecified; Z96.9 Presence of functional implant, unspecified; E66.9 Obesity, unspecified; Z68.35 Body mass index [BMI] 35.0-35.9, adult; I34.1 Nonrheumatic mitral (valve) prolapse; I35.2 Nonrheumatic aortic (valve) stenosis with insufficiency; I27.20 Pulmonary hypertension, unspecified; E11.22 Type 2 diabetes mellitus with diabetic chronic kidney disease; G47.33 Obstructive sleep apnea (adult) (pediatric); Z79.899 Other long term (current) drug therapy; Z79.2 Long term (current) use of antibiotics; Z79.02 Long term (current) use of antithrombotics/antiplatelets; Z79.52 Long term (current) use of systemic steroids; Z88.0 Allergy status to penicillin; Z88.1 Allergy status to other antibiotic agents; Z88.6 Allergy status to analgesic agent; Z99.2 Dependence on renal dialysis; Z87.891 Personal history of nicotine dependence; Z85.51 Personal history of malignant neoplasm of bladder

== ENCOUNTER 2019-10-03 23:45 | Inpatient (IN) | payer MEDICARE, OTHER ==
[~2019-10-03] VITALS: Ht 165.1 cm; Wt 96.5 kg
[2019-10-03] MEDS: ATORVASTATIN 20 MG TAB PO SCH (06:45)
[2019-10-03] MEDS: LACTOBACILLUS ACIDOPHILUS CAP (BACID) PO SCH (06:45)
[~2019-10-03 23:45] MED LIST changes: +CLIN150C14 PO; +DOXY100T27 PO; +FEBUXOSTAT 40 MG TABLET (ULORIC) PO SCH; +GLYC2SUP PR
[2019-10-04] VITALS (9 sets, daily range): BP systolic 129–140; BP diastolic 67–73; O2SAT 94–98
[2019-10-04 00:24] LABS: BASO % 0.1 % (0.0-1.0); EOS # 0.1 10^3/uL (0.0-0.5); EOS % 0.3 % (0.0-3.0); HEMATOCRIT 29.9 % (42.0-52.0); HEMOGLOBIN 9.7 g/dl (13.5-17.5); LYMPH # 0.9 10^3/uL (1.5-5.0); LYMPH % 5.9 % (24.0-44.0); MEAN CORPUSCULAR HEMOGLOBIN 33.6 pg (27.0-33.0); MEAN CORPUSCULAR HGB CONC 32.4 g/dl (32.0-36.5); MEAN CORPUSCULAR VOLUME 103.5 fl (80.0-96.0); MONO # 1.1 10^3/uL (0.0-0.8); MONO % 7.4 % (0.0-5.0); NEUTROPHILS # 12.8 10^3/uL (1.5-8.5); NEUTROPHILS % 84.8 % (36.0-66.0); PLATELET COUNT, AUTOMATED 185 10^3/uL (150-450); RED BLOOD COUNT 2.89 10^6/uL (4.30-6.10); WHITE BLOOD COUNT 15.2 10^3/uL (4.0-10.0)
[2019-10-04 00:34] LABS: INR 1.14; PROTHROMBIN TIME 14.3 SECONDS (11.8-14.0)
[2019-10-04 00:35] LABS: PARTIAL THROMBOPLASTIN TIME 31.4 SECONDS (25.0-38.4)
--- NOTE | 2019-10-04 00:44 | REPVR ---
PROCEDURE INFORMATION: Exam: CT Head Without Contrast Exam date and time: 10/03/2019 12:11 AM Age: 74 years old Clinical history: Altered mental status/memory loss TECHNIQUE: Imaging protocol: Computed tomography of the head without contrast. Radiation optimization: All CT scans at this facility use at least one of these dose optimization techniques: automated exposure control; mA and/or kV adjustment per patient size (includes targeted exams where dose is matched to clinical indication); or iterative reconstruction. COMPARISON: CT Head without contrast 09/13/2019 12:04 PM FINDINGS: Brain: There is no evidence of intracranial bleed. The castellano-white differentiation appears preserved. There is mild prominence of the cerebral sulci. Ventricles: Normal-sized ventricles. Bones/joints: There is no evidence of fracture. Sinuses: Clear paranasal sinuses. Mastoid air cells: Clear mastoid air cells. Soft tissues: Unremarkable. Vasculature: There is calcification of carotid siphon bilaterally consistent with atherosclerotic change. IMPRESSION: 1. No evidence of bleed. 2. No evidence of mass effect. Electronically signed by: Kraig Thomas On 10/04/2019 00:44:02 AM
[2019-10-04 01:05] LABS: ETHYL ALCOHOL (ETHANOL) < 0.003 % (0.000-0.010)
[2019-10-04 01:08] LABS: ALBUMIN 3.4 GM/DL (3.2-5.2); ALT/SGPT 20 U/L (12-78); BILIRUBIN,DIRECT 0.2 MG/DL (0.0-0.2); BILIRUBIN,TOTAL 0.7 MG/DL (0.2-1.0); BLOOD UREA NITROGEN 37 MG/DL (7-18); CALCIUM LEVEL 8.9 MG/DL (8.8-10.2); CARBON DIOXIDE LEVEL 30 MEQ/L (21-32); CHLORIDE LEVEL 93 MEQ/L (98-107); CK-MB VALUE MASS 2.1 NG/ML (<3.6); CPK CREATINE PHOSPHOKINASE 58 U/L (39-308); CREATININE FOR GFR 5.44 MG/DL (0.70-1.30); GLUCOSE, FASTING 109 MG/DL (70-100); MB/CK RELATIVE INDEX 3.62 (< OR =4); POTASSIUM SERUM 4.4 MEQ/L (3.5-5.1); SODIUM LEVEL 134 MEQ/L (136-145); TOTAL PROTEIN 6.7 GM/DL (6.4-8.2); TROPONIN I < 0.02 NG/ML (< 0.10)
[2019-10-04] MEDS ORDERED: CLIN150C14 PO (01:24)
[2019-10-04] MEDS ORDERED: CLINDAMYCIN 600 MG in IV 1 EA IV ONE (01:45)
[2019-10-04 02:38] LABS: ERYTHROCYTE SEDIMENTATION RATE > 140 mm/hr (0-20)
--- NOTE | 2019-10-04 03:34 | HPEPDOC ---
[facility] Medical History & Physical Date of Admission Oct 04, 2019 Date of Service: Oct 04, 2019 Attending Physician: ALEX GONZALEZ MD History and Physical TIME OF SERVICE: 4 AM CHIEF COMPLAINT: Confusion HISTORY OF PRESENT ILLNESS: The majority of the history is obtained from the ER provider. The patient was too sleepy to answer my questions. This is a 74-year-old male who was brought to the hospital by his because she noticed that he was confused. Yesterday he was admitted for evaluation of olecranon bursitis. He was evaluated by orthopedics and recommendations were made for him to continue antibiotics and follow up with them at a later date on an outpatient basis. After the patient's to commotion or seems more sleepy and not answering questions appropriately, so she brought back to the hospital. REVIEW OF SYSTEMS: Able to obtain because patient is lethargic PAST MEDICAL /SURGICAL HISTORY: ESRD on dialysis Friday, Friday and Friday via left arm AV fistula and Port-A-Cath History of vascular steal syndrome Anemia of chronic disease complicated by anemia Chronic Diastolic dysfunction. Mitral valve prosthesis. Aortic stenosis. Mild pulmonary hypertension. History of xlo-agqiofi-uqmkwxabj type 2 diabetes mellitus (no longer on medications) CAD status post quadruple bypass. History of bladder cancer twice (is currently in remission). Gout. Restrictive lung disease. ABELARDO/OHS (not compliant with BiPAP) Chronic back pain with spinal stimulator implant. Anxiety. History of right knee surgery. History of elbow surgery SOCIAL HISTORY: Former smoker FAMILY HISTORY: Mother: Diabetes ALLERGIES: Please see below. MEDICATIONS: Please see below. PHYSICAL EXAMINATION: VITAL SIGNS: Please see below. NORMAL PHYSICAL EXAM GEN: well nourished / well developed/ asleep lying in hospital bed INTEGUMENT: He has rubor, dolor and calor affecting the whole left arm HEENT: normocephalic / atraumatic CVS: RRR/NMRG / he has a port-a-cath at the right upper chest LUNGS: lungs are clear to auscultation bilaterally on room air MSK/EXTREMITIES: there is an AV fistula at the upper extremity NEURO: Unable to assess because the patient is sleepy PSYCH: Asleep but temporarily arousable with noxious stimuli LABORATORY DATA: See below. IMAGING: CT of the head " IMPRESSION: 1. No evidence of bleed. 2. No evidence of mass effect. " Chest x-ray. He appears to pulmonary edema, but the final read is pending MICROBIOLOGY: Please see below. ASSESSMENT: Mr. Mckeon is a 74-year-old with a past medical history of ESRD, chronic pain, CADCABG, restrictive lung disease anxiety, depression, obesity, obesity, who will be admitted for evaluation of encephalopathy. PLAN: 1. Encephalopathy. Suspect this may be due to sedating effect of his medications versus hypoxia. Plan: Admit to PCU/frequent neuro checks/follow-up ABG / hold alprazolam, hydroxyzine and baclofen until his mental status improves 2. Left elbow olecranon bursitis/left arm cellulitis. Plan: Continue with IV clindamycin and elevate arm 3 ESRD with multifactorial anemia Plan: Follow-up with [facility] for dialysis on Friday as scheduled /calcitriol, vitamin D, multivitamins 4. Restrictive lung disease. Plan: Albuterol, Spiriva 5. Chronic CAD status post quadruple bypass. Plan: Atorvastatin and Coreg 6. Anxiety Plan: Duloxetine 7. Chronic HTN/ chronic HFpEF Plan: Coreg 8. Gout. Plan: Febuxostat 9. Chronic back pain with spinal stimulator implant. Plan: baclofen, morphine 10. Obesity. BMI is 35.6 complicates care DVT prophylaxis with SCDs Disposition likely home after with a 2 midnight stay/placed PFS consult to see if the needs red spit surfaces are is considering placing her in a residential Vital Signs Vital Signs Date Time Temp Pulse Resp B/P (MAP) Pulse Ox O2 Delivery O2 Flow Rate FiO2 10/04/19 03:00 96.5 84 18 129/67 (87) 98 Nasal Cannula 2.0 Laboratory Data Labs 24H Laboratory Tests 2 10/04/19 00:09: Immature Granulocyte % (Auto) 1.5, Neutrophils (%) (Auto) 84.8H, Lymphocytes (%) (Auto) 5.9L, Monocytes (%) (Auto) 7.4H, Eosinophils (%) (Auto) 0.3, Basophils (%) (Auto) 0.1, Neutrophils # (Auto) 12.8H, Lymphocytes # (Auto) 0.9L, Monocytes # (Auto) 1.1H, Eosinophils # (Auto) 0.1, Basophils # (Auto) 0.0, Nucleated Red Blood Cells % (auto) 0.0, Erythrocyte Sedimentation Rate > 140H, Urine Color SOM, Urine Appearance HAZY, Urine pH 5.0, Urine Specific [place] 1.028, Urine Protein NEGATIVE, Urine Glucose (UA) NEGATIVE, Urine Ketones NEGATIVE, Urine Blood 1+H, Urine Nitrite NEGATIVE, Urine Bilirubin 1+H, Urine Urobilinogen 0.2, Urine Leukocyte Esterase NEGATIVE, Urine WBC (Auto) 1, Urine RBC (Auto) 1, Urine Hyaline Casts (Auto) 15, Urine Bacteria (Auto) NEGATIVE, Urine Squamous Epithelial Cells 0, Urine Sperm (Auto) , Anion Gap 11, Glomerular Filtration Rate 11.0L, Calcium Level 8.9, Total Bilirubin 0.7, Direct Bilirubin 0.2, Aspartate Amino Transf (AST/SGOT) 21, Alanine Aminotransferase (ALT/SGPT) 20, Alkaline Phosphatase 165H, Total Creatine Kinase 58, Creatine Kinase MB 2.1, Creatine Kinase MB Relative Index 3.62, Troponin I < 0.02, Total Protein 6.7, Albumin 3.4, Albumin/Globulin Ratio 1.03, Thyroid Stimulating Hormone (TSH) 1.530 10/04/19 00:12: Prothrombin Time 14.3H, Prothromb Time International Ratio 1.14, Activated Partial Thromboplast Time 31.4 10/04/19 00:20: Lactic Acid Level 0.9, Ammonia 17, C-Reactive Protein, Quantitative 13.30H, Ethyl Alcohol Level < 0.003 10/04/19 00:25: Bedside Glucose (Misc Panel) 107 10/04/19 00:43: POC pH (Misc Panel) 7.420, POC Base Excess (Misc Panel) 10.0H, POC Saturated Percent O2 (Misc) 98, POC pO2 (Misc Panel) 106.0H, POC pCO2 (Misc Panel) 53.4H, POC HCO3 (Misc Panel) 34.6H, POC Total CO2 (Misc Panel) 36.0H CBC/BMP Laboratory Tests 10/04/19 00:09 Microbiology Microbiology 10/04/19 Blood Culture, Received Pending 10/04/19 Blood Culture, Received Pending Home Medications Scheduled Atorvastatin Calcium (Atorvastatin Calcium) 20 Mg Tablet, 20 MG PO QHS Ca/D3/Mag Ox/Zinc/Die Sinker Apprentice/Uche/Bor (Calcium 600-D3 Plus Caplet) 1 Each Tablet, 1 TAB PO DAILY Calcitriol (Calcitriol) 0.25 Mcg Capsule, 0.25 MCG PO 3XW RECEIVES AT DIALYSIS ON FRIDAY, FRIDAY AND FRIDAY Carvedilol (Carvedilol) 6.25 Mg Tablet, 6.25 MG PO BID Clindamycin Hcl (Clindamycin HCl) 150 Mg Capsule, 600 MG PO Q8H Clopidogrel Bisulfate (Clopidogrel) 75 Mg Tablet, 75 MG PO DAILY Docusate Sodium (Docusate Sodium) 100 Mg Capsule, 100 MG PO BID Duloxetine Hcl (Cymbalta) 60 Mg Capsule.dr, 60 MG PO DAILY Ergocalciferol (Vitamin D2) (Vitamin D2) 2,000 Unit Tablet, 4,000 UNITS PO DAILY Febuxostat (Uloric) 80 Mg Tablet, 80 MG PO Q2D AT BEDTIME Lactobacillus Acidophilus (Probiotic) 1 Each Capsule, 1 CAP PO QHS Multivitamins (Thera M Plus Tablet) 1 Each Tablet, 1 TAB PO DAILY Naldemedine Tosylate (Symproic) 0.2 Mg Tablet, 0.2 MG PO DAILY Prednisone (Prednisone) 1 Mg Tablet, 6 MG PO DAILY Tiotropium [place] (Spiriva Respimat) 4 Gm Mist.inhal, 2 PUFFS INH DAILY Ubidecarenone (Co Q-10) 200 Mg Capsule, 200 MG PO BID Scheduled PRN Albuterol Sulf (Albuterol Sulfate) 2.5 Mg/3 Ml Vial.neb, 2.5 MG INH Q2H PRN for SOB/WHEEZING Albuterol Sulfate (Proair Hfa) 8.5 Gm Hfa.aer.ad, 2 PUFF INH QID PRN for SHORTNESS OF BREATH Alprazolam (Alprazolam) 0.25 Mg Tablet, 0.25 MG PO TID PRN for ANXIETY Baclofen (Baclofen) 10 Mg Tablet, 10 MG PO BID PRN for MUSCLE SPASMS Benzonatate (Benzonatate) 100 Mg Capsule, 100 MG PO TID PRN for COUGH Glycerin (Adult Glycerin) 1 Each Supp.rect, 1 EA [place] DAILY PRN for CONSTIPATION Hydroxyzine HCl (Hydroxyzine HCl) 25 Mg Tablet, 25 MG PO TID PRN for ITCHING Morphine Sulfate (Morphine Sulfate) 15 Mg Tablet, 15 MG PO Q6H PRN for PAIN Allergies Coded Allergies: aspirin (Verified Allergy, Severe, LIPS SWELL, 03/29/19) Penicillins (Verified Allergy, Intermediate, RASH, 04/15/19) ampicillin (Verified Allergy, Intermediate, HIVES, 03/17/19) ceftriaxone (Verified Allergy, Unknown, UNKNOWN REACTION, 04/09/19) A-FIB/CHADSVASC A-FIB History Current/History of A-Fib/PAF?: No Current PO Anticoag Therapy: ALEX Corrales MD Oct 04, 2019 03:34
[2019-10-04] MEDS ORDERED: ALBUTEROL 90 MCG/ACT 8GM HFA INHALER INH PRN (06:15)
[2019-10-04] MEDS ORDERED: GLYCERIN ADULT SUPP PR PRN (06:15)
[2019-10-04] MEDS ORDERED: MORPHINE 30 MG TAB **MSIR PO PRN (06:15)
[2019-10-04] MEDS ORDERED: BENZONATATE 100 MG CAP PO PRN (06:15)
[2019-10-04] MEDS ORDERED: ALBUTEROL SULFATE 2.5 MG/0.5 ML INH NEB SOLN INH PRN (06:15)
[2019-10-04] MEDS ORDERED: hydrOXYzine 25 MG TAB PO PRN (06:15)
[2019-10-04] MEDS ORDERED: ALPRAZolam 0.25 MG TAB PO PRN (06:15)
[2019-10-04] MEDS ORDERED: BACLOFEN 10 MG TAB PO PRN (06:15)
[2019-10-04] MEDS: TIOTROPIUM INHALER/CAPSULE (SPIRIVA) INH SCH (08:00)
--- NOTE | 2019-10-04 08:18 | REP ---
PORTABLE CHEST X-RAY: Single view. HISTORY: Altered mental status. COMPARISON STUDY: September 02, 2019. FINDINGS: A right-sided tunnel catheter double lumen is seen in place with its tip in the expected location of the superior vena cava. Median sternotomy sutures and mediastinal clips are noted. A dorsal column stimulator is seen at mid thoracic spine level. The cardiomediastinal silhouette is unremarkable and unchanged. Pulmonary vasculature is cephalized and interstitial markings are slightly prominent. The lungs are exposed at a relatively low level of inspiration. No focal infiltrate is seen. There appears to be some plate-like atelectasis in the right base. Electronically Signed by Agusto Kumar MD 10/04/2019 11:44 A
[2019-10-04] MEDS: CALCITRIOL 0.25 MCG CAP (S0169) PO SCH (08:32)
[2019-10-04] MEDS: CLINDAMYCIN 600 MG in IV 1 EA IV SCH ×3 (08:32→20:48)
[2019-10-04] MEDS: predniSONE 5 MG TAB PO SCH (08:32)
[2019-10-04] MEDS: MULTIVITAMINS/MINERALS THERAP 1 TAB PO SCH (08:32)
[2019-10-04] MEDS: DULoxetine 30 MG CAP (CYMBALTA) PO SCH (08:33)
[2019-10-04] MEDS: DOCUSATE SODIUM 100 MG CAP PO SCH ×2 (08:33→20:50)
[2019-10-04] MEDS: VITAMIN D 1,000 INTERNATIONAL UNITS TABLET PO SCH (08:33)
[2019-10-04] MEDS: CARVedilol 6.25 MG TAB PO SCH ×2 (08:33→20:50)
[2019-10-04] MEDS: CLOPIDOGREL 75 MG TAB PO SCH (08:33)
[2019-10-04] MEDS: predniSONE 1 MG TAB PO SCH (08:33)
[2019-10-04] MEDS: FEBUXOSTAT 40 MG TABLET (ULORIC) PO SCH (08:33)
[2019-10-04] MEDS: HEPARIN SOD (PORCINE) 5000 UNITS/ML VIAL SC SCH ×2 (08:34→20:49)
[2019-10-04] MEDS: CALCIUM/VITAMIN D 500 MG TAB PO SCH (08:34)
[2019-10-04 08:39] LABS: HEMATOCRIT 27.8 % (42.0-52.0); HEMOGLOBIN 8.9 g/dl (13.5-17.5); MEAN CORPUSCULAR HEMOGLOBIN 33.8 pg (27.0-33.0); MEAN CORPUSCULAR VOLUME 105.7 fl (80.0-96.0); PLATELET COUNT, AUTOMATED 167 10^3/uL (150-450); RED BLOOD COUNT 2.63 10^6/uL (4.30-6.10); WHITE BLOOD COUNT 13.5 10^3/uL (4.0-10.0)
[2019-10-04] MEDS ORDERED: SYMPROIC PO SCH (09:00)
[2019-10-04 09:03] LABS: ABG BASE EXCESS 7.8 (-2.0-2.0); ABG HCO3 34.5 MEQ/L (22.0-26.0); ABG O2 SATURATION 95.9 % (95.0-99.0); ABG PARTIAL PRESSURE O2 84.8 mmHg (75.0-100.0); ABG STANDARD HCO3 31.6 MEQ/L (22.0-26.0); ABG TOTAL CO2 36.4 MEQ/L (23.0-31.0); ABG pH (ARTERIAL) 7.366 UNITS (7.350-7.450)
[2019-10-04 09:06] LABS: ABG PARTIAL PRESSURE CO2 61.7 mmHg (35.0-45.0)
[2019-10-04 09:13] LABS: CALCIUM LEVEL 8.4 MG/DL (8.8-10.2); CREATININE FOR GFR 5.67 MG/DL (0.70-1.30); GLOMERULAR FILTRATION RATE 10.5 (>42); POTASSIUM SERUM 3.6 MEQ/L (3.5-5.1)
--- NOTE | 2019-10-04 09:41 | REP ---
Left upper extremity duplex venous ultrasound: History: Rule out left upper extremity venous thrombosis. Findings: The left internal jugular, axillary, brachial, basilic, and cephalic veins are anechoic and compressible in the left upper extremity. Color flow imaging is homogeneous. Spectral Doppler interrogation is unremarkable. There is no evidence of left upper extremity venous thrombosis. Impression: Negative left upper extremity duplex venous ultrasound. No evidence of venous thrombosis. Electronically Signed by Agusto Kumar MD 10/04/2019 09:34 A
[2019-10-04] MEDS: DIMETHICONE 2% OINTMENT(VANIPLY) 70GM TUBE TOP SCH ×2 (10:43→20:50)
--- NOTE | 2019-10-04 11:42 | IPNPDOC ---
Text Note Date of Service The patient was seen on 10/04/19. NOTE Subjective Patient was seen at bedside in the PCU this morning. He continues to be somewhat confused, especially with time and date, however is able to answer questions appropriately and is oriented to himself and his location. Patient continues to have left upper extremity swelling from the elbow distally through the fingers with associated rubor and calor. It was not elevated overnight, so nursing is aware and will elevate it this morning. His only complaint is that it hurts to move. He also admits he has ABELARDO, but was not compliant with CPAP so it was taken away. He denies nausea, vomiting, or diarrhea. He is constipated. He denies fevers, chills, chest pain, or shortness of breath. Objective Vitals: Please see below General: Somnolent man who appears stated age, and his left upper extremity is swollen, red, and propped up with pillows. HEENT: Normocephalic, atraumatic. Lips are dry. CV: Regular rate and rhythm, crescendo-decrescendo murmur present with prominent thudding of the prosthetic valves and best auscultated at the left 2nd intercostal space. No rubs or gallops. Port-A-Cath present at right upper chest. Lungs: Clear to auscultation bilaterally; no wheezes, rales, or rhonchi Abdomen: Protuberant/Obese, nontender/nondistended Extremities: Left upper extremity swelling with rubor and calor. Pulses present bilaterally. Left arm AV fistula present. Dryness present over bilateral lower extremities. No lower extremity edema. Neuro: Moves extremities freely and spontaneously, sensation intact throughout Psych: Patient maintains appropriate eye contact and focus. Patient oriented to self and location, not to date/time. Assessment Patient is a 74 y/o male on hospital day 2, admitted for altered mental status and confusion, being evaluation for encephalopathy. Past medical history significant for untreated ABELARDO, ESRD on HD, and CAD. Plan 1. Acute metabolic encephalopathy - likely 2/2 medication induced effect, less likely 2/2 acute CO2 retention, possibly 2/2 poor sleep / ABELARDO without CPAP - Holding Xanax, baclofen, hydroxyzine HCl, and morphine sulfate - ABG (10/04/19): results pH 7.366, pCO2 61.7, pO2 84.8, HCO3 34.5 (chronic CO2 retainer) - Continue regular neuro checks - Will check blood ammonia level, ABELARDO protocol 2. Left olecranon bursitis/left arm cellulitis, ortho aware - Ensure elevation of left upper extremity - Continue ice application to left elbow - Continue clindamycin phosphate 600mg every 6 hours - LUE duplex venous ultrasound was negative for DVT 3. ESRD on HD - nephro consulted, appreciate their help - HD MWF, orders per nephro 4. ABELARDO, noncompliant with CPAP - ABELARDO protocol 5. Skin dryness - Apply Aquaphor ointment topically BID to legs and abdomen 6. Restrictive lung disease - Albuterol, Spiriva - Incentive spirometry 7. Chronic CAD s/p quadruple bypass - Atorvastatin, Coreg 8. Anxiety - Duloxetine 9. Gout - Febuxostat 10. Chronic back pain s/p dorsal column stimulator implant - D/c pain medications for now due to AMS 11. DVT Prophylaxis - Heparin Sodium 5000u q12h - DVT Disposition: pending clinical improvement, probably downgrade to med/surg with telemetry tomorrow, pending PT & OT evaluations and treatment VS,Conniee, I+O VS, Blanca, I+O Laboratory Tests 10/04/19 00:09 10/04/19 08:22 Vital Signs Date Time Temp Pulse Resp B/P (MAP) Pulse Ox O2 Delivery O2 Flow Rate FiO2 10/04/19 08:33 89 140/67 10/04/19 08:00 98.2 20 96 Room Air 10/04/19 08:00 1.0 I&O- Last 24 Hours up to 6 AM 10/04/19 06:00 Intake Total 0 ml Output Total 0 ml Balance 0 ml GME ATTESTATION GME ATTESTATION My faculty preceptor for this patient encounter was physically present during the encounter and was fully available. All aspects of the patient interview, examination, medical decision making process, and medical care plan development were reviewed and approved by the faculty preceptor. The faculty preceptor is aware and concurs with the plan as stated in the body of this note and will attest to such by his/her cosignature. ATTENDING NOTE I, Maye Gallagher, have independently examined this patient and performed my own physical exam, as well as reviewed the documentation and edited where necessary. I have discussed in detail with the resident / student the findings and plan of treatment as documented by the resident / student and edited their note. I agree with their findings and treatment plan and have edited their documentation. I will continue to follow the patient during this hospital stay. AUSTIN TURNER OMS-III Oct 04, 2019 11:42 MAYE GALLAGHER MD Oct 04, 2019 16:45
[2019-10-04] MEDS ORDERED: HEPARIN 1,000 UNITS/ML 10ML VIAL (FOR RADIOLOGY& DIALYSIS ONLY) XX ONE (14:00)
[2019-10-04] MEDS ORDERED: HEPARIN 1,000 UNITS/ML 10ML VIAL (FOR RADIOLOGY& DIALYSIS ONLY) IV ONE (14:00)
--- NOTE | 2019-10-04 16:47 | ECGEPIP ---
[facility] - ED Test Date: 2019-10-04 Pat Name: VEDA BARRERA Department: Room: [place] [address] Gender: Male Supervisor Of Guidance And Testing: MACKENZIE : 1945 Requested By: MARIAH Bobby PA-C Order Number: [id number] Reading MD: Marie Soriano Measurements Intervals [place] Rate: 89 P: 11 [place]: 168 QRS: -3 QRSD: 171 T: 19 QT: 421 QTc: 513 Interpretive Statements SINUS RHYTHM POSSIBLE LEFT ATRIAL ENLARGEMENT INDETERMINATE AXIS RIGHT BUNDLE BRANCH BLOCK PROLONGED QTC SIMILAR 10/02/19 Electronically Signed on 10-04-2019 16:46:43 EST by Marie Soriano
[2019-10-04] MEDS: ACETAMINOPHEN TAB 650MG DOSE (2X325MG) PO PRN ×2 (16:55→21:04)
--- NOTE | 2019-10-04 18:35 | CR ---
DATE OF CONSULTATION: 10/04/2019 CONSULTATION REPORT FOR: Sarita Reyes MD REASON FOR CONSULTATION: To assist in the management of end-stage renal disease and associated complications. HISTORY OF PRESENT ILLNESS: Mr. Mckeon is a 74-year-old gentleman who was admitted to [facility] last evening due to altered mentation. He has known history of longstanding diabetes, hypertension, gout, end-stage renal disease, congestive heart failure, anxiety and coronary artery disease. He also has obstructive sleep apnea, however, not able to use his bilevel positive airway pressure (BiPAP). He is regularly dialyzed on a Friday, Friday and Friday schedule. On Friday, he received extra ultrafiltration due to hypervolemia and was found to be confused and altered after the procedure. He was sent to the emergency room and got admitted. A nephrology consultation was requested and the patient was seen this morning. PAST MEDICAL AND SURGICAL HISTORY: Significant for: 1. History of chronic diastolic congestive heart failure. 2. Hypertension. 3. History of non-insulin dependent diabetes. 4. History of coronary artery disease, status post quadruple bypass. 5. History of bladder cancer. 6. History of gout. 7. History of restrictive lung disease. 8. History of obstructive sleep apnea. 9. History of anxiety. 10. History of back pain status post spinal stimulator implant. 11. History of arteriovenous (AV) fistula, left arm. 12. History of mitral valve disease, status post mitral valve replacement. 13. History of aortic stenosis. 14. History of pulmonary hypertension. PAST SURGICAL HISTORY: Significant for: 1. Coronary artery bypass graft (CABG). 2. Right knee surgery. 3. Left arm arteriovenous (AV) fistula surgery. 4. Perma-Cath placement for hemodialysis. PERSONAL AND SOCIAL HISTORY: The patient is and lives with his . He is a former smoker. He denies any alcohol or drug use. FAMILY HISTORY: Significant for diabetes. MEDICATIONS: His home medications include: - atorvastatin 20 mg daily - calcitriol 0.25 mcg three times a week - Carvedilol 6.25 mg twice a day - Plavix 75 mg daily - Colace 100 mg twice a day - doxycycline 100 mg twice a day - Cymbalta 60 mg daily - vitamin D 2000 units daily - Uloric 80 mg every other day - multivitamin one tablet daily - prednisone 6 mg daily - Symbicort inhaler daily - Spiriva inhaler once a day - albuterol nebulizers as needed - Xanax 0.25 mg as needed for anxiety - morphine sulfate 15 mg tablet every six hours as needed for pain - hydroxyzine 25 mg three times a day as needed for itch ALLERGIES: He has allergy to ASPIRIN, PENICILLIN, CEFTRIAXONE, and AMPICILLIN. REVIEW OF SYSTEMS: The patient was sleepy and altered. However, today, he is awake and able to have a conversation but still not back to his normal baseline. His is present in the room and she reports that he did not wake up all day yesterday and did not eat at all. No fever or chills reported. Ears, nose and throat are significant for hearing difficulty. He denies any headache. No nosebleed or sore throat reported. Cardiovascular system is significant for pulmonary hypertension, diastolic congestive heart failure and chronic leg edema. Respiratory system is significant for obstructive sleep apnea. He also has chronic obstructive pulmonary disease (COPD) but denies any hemoptysis or pleuritic-type of chest pain. Gastrointestinal (GI) system is negative for vomiting or diarrhea. Genitourinary () system is negative for dysuria or hematuria. He does have a history of bladder cancer in the past. Musculoskeletal system is significant for chronic back pain, history of recurrent gout and lower extremity edema. He also has left upper extremity edema following infiltration of his arteriovenous (AV) fistula. Psychosocial system is significant for depression and anxiety. Neurological system is negative for seizures. Skin is negative for rash or ulcers. PHYSICAL EXAMINATION: The patient is sitting in the recliner chair at the time of my visit. Temperature is 98.2 degrees Fahrenheit, heart rate 88 per minute and respiratory rate 20 per minute. Blood pressure 140/67 mmHg and oxygen saturation 96%. His head is atraumatic. Neck is supple and jugular venous distention (JVD) mildly elevated. No oral thrush or ulcers noted. His heart sounds are regular and without a pericardial friction rub. A systolic murmur grade 2/6 is audible. Lungs have diminished breath sounds and basilar rales. Abdomen is soft and nontender. Bowel sounds are normal. Extremities are without any cyanosis or clubbing. Left elbow area has significant ecchymosis and left upper extremity is markedly swollen. Arteriovenous (AV) fistula in left upper arm is patent. He does have some tremors of the upper extremities. Neurologically, otherwise, he has no focal deficit. LABORATORY DATA: WBC count was 15.2 on admission, hemoglobin 9.7 and hematocrit 29.9. Today, WBC count 13.5, hemoglobin 8.9 and hematocrit 27.8. Sodium is 135, potassium 3.6, CO2 32, BUN 40 and creatinine 5.67. Calcium 8.4 and ammonia level was 17. C-reactive protein was 13.3. Blood gas showed a pH of 7.36, pCO2 61.7 and pO2 84.8. Urinalysis was unremarkable. Ethyl alcohol level less than 0.003. Chest x-ray showed cardiomegaly and some pulmonary vascular congestion. Head CT scan was negative for any bleed or acute infarct. Vascular ultrasound of left upper extremity was negative for DVT. PROBLEMS: 1. End-stage renal disease. The patient is regularly dialyzed on Friday, Friday and Friday schedule. We will go ahead and dialyze him again today. We will not use his left arm arteriovenous (AV) fistula but Perma-Cath on his right upper chest. 2. Chronic diastolic congestive heart failure. His volume status is still slightly decompensated. We will try to remove about 2.5 liters of fluid with dialysis today and see how he tolerates. 3. Left upper arm edema and ecchymosis. He had infiltration of AV fistula a few days ago and deep vein thrombosis (DVT) has been ruled out. His fistula is patent clinically and edema is likely to improve over a few days. He is currently being treated for cellulitis on his left elbow also. 4. Altered mentation, probably toxic and metabolic related to medications and left elbow area infection. At present, he seems to be returning back to baseline. Thank you for involving me in the care of Mr. Mckeon. I will follow him along with you.
[2019-10-04] MEDS: ATORVASTATIN 20 MG TAB PO SCH (20:49)
[2019-10-04] MEDS: LACTOBACILLUS ACIDOPHILUS CAP (BACID) PO SCH (20:49)
[2019-10-05] VITALS (22 sets, daily range): BP systolic 129–139; BP diastolic 58–71; O2SAT 90–96
[2019-10-05] MEDS: CLINDAMYCIN 600 MG in IV 1 EA IV SCH ×4 (01:18→21:03)
[2019-10-05] MEDS: ACETAMINOPHEN TAB 650MG DOSE (2X325MG) PO PRN (01:18)
[2019-10-05] MEDS ORDERED: PILL CUTTER 1 EACH XX PRN (03:00)
[2019-10-05] MEDS ORDERED: MORPHINE 30 MG TAB **MSIR PO ONE ×2 (03:00→08:15)
[2019-10-05] MEDS ORDERED: BACLOFEN 10 MG TAB PO ONE (03:00)
[2019-10-05 05:30] LABS: HEMATOCRIT 28.6 % (42.0-52.0); HEMOGLOBIN 8.9 g/dl (13.5-17.5); MEAN CORPUSCULAR HEMOGLOBIN 33.1 pg (27.0-33.0); MEAN CORPUSCULAR HGB CONC 31.1 g/dl (32.0-36.5); MEAN CORPUSCULAR VOLUME 106.3 fl (80.0-96.0); PLATELET COUNT, AUTOMATED 200 10^3/uL (150-450); RED BLOOD COUNT 2.69 10^6/uL (4.30-6.10)
[2019-10-05 05:53] LABS: C REACTIVE PROTEIN QUANTITATIV 18.7 MG/DL (0.00-0.30); CALCIUM LEVEL 8.8 MG/DL (8.8-10.2); CREATININE FOR GFR 3.5 MG/DL (0.70-1.30); GLOMERULAR FILTRATION RATE 18.3 (>42); POTASSIUM SERUM 3.7 MEQ/L (3.5-5.1)
[2019-10-05] MEDS: TIOTROPIUM INHALER/CAPSULE (SPIRIVA) INH SCH (07:39)
[2019-10-05] MEDS: VITAMIN D 1,000 INTERNATIONAL UNITS TABLET PO SCH (08:19)
[2019-10-05] MEDS: CLOPIDOGREL 75 MG TAB PO SCH (08:19)
[2019-10-05] MEDS: MULTIVITAMINS/MINERALS THERAP 1 TAB PO SCH (08:19)
[2019-10-05] MEDS: HEPARIN SOD (PORCINE) 5000 UNITS/ML VIAL SC SCH ×2 (08:20→21:04)
[2019-10-05] MEDS: DULoxetine 30 MG CAP (CYMBALTA) PO SCH (08:20)
[2019-10-05] MEDS: DOCUSATE SODIUM 100 MG CAP PO SCH ×2 (08:21→21:05)
[2019-10-05] MEDS: predniSONE 1 MG TAB PO SCH (08:21)
[2019-10-05] MEDS: CARVedilol 6.25 MG TAB PO SCH ×2 (08:21→21:05)
[2019-10-05] MEDS: predniSONE 5 MG TAB PO SCH (08:21)
[2019-10-05] MEDS: CALCIUM/VITAMIN D 500 MG TAB PO SCH (08:21)
[2019-10-05] MEDS: DIMETHICONE 2% OINTMENT(VANIPLY) 70GM TUBE TOP SCH ×2 (08:22→21:05)
--- NOTE | 2019-10-05 12:24 | IPN ---
DATE: 10/05/2019 Mr. Mckeon is seen this morning on his bedside. He is sitting in the chair feeling much better today, but still has pain in his left elbow area. He underwent hemodialysis yesterday, which he tolerated very well. We did not use his left arm AV fistula due to recent infiltration and swelling in his arm. He still has a PermaCath which was used yesterday. His left arm edema has improved significantly. The patient denies any unusual dyspnea, chest pain, nausea, vomiting, fever or chills. On physical examination, temperature 97.4 degrees Fahrenheit, heart rate 85 per minute and respiratory rate 22 per minute. Blood pressure 122/56 mmHg and oxygen saturation 95% on 1 liter oxygen. Head is atraumatic. Neck is supple and jugular venous distention (JVD) not abnormally elevated. Heart sounds are regular and lungs sound clear to auscultation. On the lower back, he has two areas of ecchymosis from recent fall. Abdomen: Soft and nontender. Bowel sounds are normal. Extremities have no cyanosis or clubbing. Left arm edema has improved significantly. Left upper arm AV fistula is patent and ecchymosis on the elbow area is unchanged. There is tenderness at the elbow without any evidence of abscess or cellulitis. Neurologically, he is much more alert and at his baseline mentation today. Today's labs show WBC count 14.0, hemoglobin 8.9 and hematocrit 28.6. Platelets 200,000. Sodium 136, potassium 3.7, CO2 of 32, BUN 21 and creatinine 3.50. Calcium level is 8.8 and C-reactive protein is up to 18.7. PROBLEMS: 1. End-stage renal disease. The patient was dialyzed yesterday which he tolerated very well. We will plan to dialyze him again tomorrow. At present, there is no emergent need for dialysis today. 2. Chronic diastolic congestive heart failure. Volume status is reasonably well-compensated and no emergent need for dialysis today is felt. The patient will be dialyzed tomorrow. 3. Anemia. No change and he remains stable. No urgent intervention needed. 4. Left arm pain and infection. The patient is currently being treated for possible bursitis or infection. His C-reactive protein did increase further. even though he is afebrile. He does have a PermaCath which does not look infected. 5. Altered mentation. His mentation has cleared completely and he is back to his baseline mentation now.
--- NOTE | 2019-10-05 16:14 | CR ---
DATE OF CONSULTATION: 10/05/2019 REFERRING PROVIDER: Dr. Camara CHIEF COMPLAINT: Multiple joint pain. HISTORY OF PRESENT ILLNESS: Maik is a 74-year-old gentleman who was admitted yesterday for altered mental status. Multiple comorbidities to include end-stage renal disease (ESRD) - on hemodialysis (HD) and coronary artery disease as well as untreated obstructive sleep apnea (ABELARDO). Follows with Dr. Petersen, [facility], in [place] for chronic shoulder pain and low back pain. Has had multiple right shoulder injections, one done most recently by orthopedics with fluoroscopy without improvement, approximately 1 month ago. Has been taking morphine instant release 15 mg tablet four times daily over the past year for chronic pain. Pain has escalated over the past 2 months. They traveled to [place] and pain has gotten worse. Chief area of pain is left low back and left hip. Also complaining of left groin pain. Due to his mental status on admission yesterday, they stopped morphine and muscle relaxant. This morning he was screaming out in pain. accompanies him in exam room and informs me that he had difficulties with confusion and vivid dreams. Also describes episodes of panic attacks. Today he appears comfortable at rest. Alert. is answering most of the history questions. PAST MEDICAL HISTORY: Extensive - see admission history dated October 04, 2019. SOCIAL HISTORY: Former smoker. FAMILY HISTORY: Mother diabetes. ALLERGIES: See admission. REVIEW OF SYSTEMS: 10-point review of systems is negative except as described in history of the present illness. PHYSICAL EXAMINATION: Awake, alert. HEENT: Normocephalic, atraumatic. Cardiac: S1, S2, normal rate and rhythm. Respiratory: Lung sounds are clear. Respirations nonlabored. Able to stand with minimal assist. Nontender with palpation over the lumbosacral (LS) axis and sacroiliac joint (SIJ) regions bilaterally. Nontender with palpation over left hip. Left groin: No lymphadenopathy. No redness or swelling. Nontender. Musculoskeletal: Muscle strength 5/5 lower extremities. Neurologic: Normal sensation to light touch bilateral lower extremities. Shoulders: Nontender with palpation. Showing limited range of joint motion due to pain over shoulder region with elevation above shoulder height bilaterally. ASSESSMENT: Chronic generalized joint pain with multiple comorbidities. PLAN: I do feel part of the patient's current complaints of vivid dreams, etcetera could be related to abruptly stopping the opioid yesterday. I would recommend using morphine 15 mg IR half a tablet every 4-6 hours as needed for severe pain episodes. I discussed this at length with both he and the and they agree. I also talked to the who was concerned about options for pain control that are considered nonnarcotic. Discussed perhaps they could try tramadol 50 mg tablets on a routine basis twice a day. My suggestions are limited in regards to his medical condition and untreated sleep apnea. Continue with followup as an outpatient at [facility] with Dr. Petersen. They would like to consider injection therapy for his low back and hip issues.
--- NOTE | 2019-10-05 19:42 | IPNPDOC ---
Date Seen The patient was seen on 10/05/19. Progress Note SUBJECTIVE: Patient is fully alert and responsive today. Reports chronic pain in hip and shoulders. Reports that he has been anxious and unable to sleep due to having nightmare earlier this week. Afebrile overnight. WBC 13.5->14 OBJECTIVE PHYSICAL EXAMINATION: VITAL SIGNS: Please see below. General: slightly tremulous, Alert Eyes: Normal sclera, EOMI, BUTCH HENT: Atraumatic Cardiovascular: Normal rate, normal rhythm. Pulmonary: Clear to auscultation b/l, no wheezing GI: Soft, nontender, nondistended Skin: Warm and dry Neuro: CN grossly intact. No focal deficits. Psych: oriented x 3 LABORATORY DATA, IMAGING STUDIES, MICROBIOLOGY: Please see below. DVT prophylaxis ordered?: HSQ ASSESSMENT AND PLAN: 1. AMS - resolved - Infectious vs. psychiatric - L. elbow/olecrenon bursitis and leukocytosis. - Patient and family also noted anxiety and patient unable to sleep for several days that could contribute to lethargy. 2. L. elbow olecranon bursitis/cellulitis - Clinically improving on antibiotics. c/w clindamycin. 3. ESRD - c/w HD per nephrology. 4. Anxiety - Psych consulted. Patient unable to sleep due to anxiety. - c/w Xanax PRN home dose. 5. Restrictive lung disease - c/w albuterol, spiriva 6. HTN/HFpEF - c/w coreg 7. gout - c/w Febuxostat 8. chronic back pain - has spinal stimulator implant. - pain control. 9. OA with severe back, hip, and shoulder pain - On morphine, baclofen, cymbalta. - Follows with pain management as outpatient, re-evaluated here. - Recommended morphine 15 mg IR 1/2 tablet q4-6 hours. - Can try Tramadol if opiate use becomes a concern. DISPOSITION: Home vs. ERIN? VS, I&O, 24H, Fishbone Vital Signs/I&O Vital Signs Date Time Temp Pulse Resp B/P (MAP) Pulse Ox O2 Delivery O2 Flow Rate FiO2 10/05/19 16:03 1.0 10/05/19 16:00 98.5 91 18 95 Nasal Cannula 10/05/19 08:21 122/56 I&O- Last 24 Hours up to 6 AM 10/05/19 06:00 Intake Total 530 ml Output Total 2500 ml Balance -1970 ml Laboratory Data 24H LABS Laboratory Tests 2 10/04/19 20:00: Bedside Glucose (Misc Panel) 176H 10/05/19 05:07: Nucleated Red Blood Cells % (auto) 0.0, Anion Gap 6L, Glomerular Filtration Rate 18.3L, Calcium Level 8.8, C-Reactive Protein, Quantitative 18.70H 10/05/19 11:24: Bedside Glucose (Misc Panel) 153H 10/05/19 16:32: Bedside Glucose (Misc Panel) 110 CBC/BMP Laboratory Tests 10/05/19 05:07 Microbiology Microbiology 10/04/19 Blood Culture - Preliminary, Resulted No growth after 24 hours . All specim... 10/04/19 Blood Culture - Preliminary, Resulted No growth after 24 hours . All specim... ALEIDA VALENTINE MD Oct 05, 2019 19:42
[2019-10-05] MEDS: LACTOBACILLUS ACIDOPHILUS CAP (BACID) PO SCH (21:03)
[2019-10-05] MEDS: MIRALAX *UNIT DOSE* 17GM PACKET PO SCH (21:03)
[2019-10-05] MEDS: MORPHINE 30 MG TAB **MSIR PO PRN (21:04)
[2019-10-05] MEDS: ATORVASTATIN 20 MG TAB PO SCH (21:04)
[2019-10-06] VITALS (15 sets, daily range): BP systolic 110–147; BP diastolic 54–72; O2SAT 90–97
[2019-10-06] MEDS: CLINDAMYCIN 600 MG in IV 1 EA IV SCH ×4 (01:18→21:25)
[2019-10-06] MEDS: ACETAMINOPHEN TAB 650MG DOSE (2X325MG) PO PRN (02:37)
[2019-10-06] MEDS: MORPHINE 30 MG TAB **MSIR PO PRN (03:36)
[2019-10-06 06:33] LABS: C REACTIVE PROTEIN QUANTITATIV 12.9 MG/DL (0.00-0.30)
[2019-10-06] MEDS: TIOTROPIUM INHALER/CAPSULE (SPIRIVA) INH SCH (07:49)
[2019-10-06] MEDS: CLOPIDOGREL 75 MG TAB PO SCH (08:50)
[2019-10-06] MEDS: MIRALAX *UNIT DOSE* 17GM PACKET PO SCH ×2 (08:50→21:26)
[2019-10-06] MEDS: MULTIVITAMINS/MINERALS THERAP 1 TAB PO SCH (08:51)
[2019-10-06] MEDS: DOCUSATE SODIUM 100 MG CAP PO SCH ×2 (08:51→21:26)
[2019-10-06] MEDS: DULoxetine 30 MG CAP (CYMBALTA) PO SCH (08:51)
[2019-10-06] MEDS: CARVedilol 6.25 MG TAB PO SCH ×2 (08:52→21:26)
[2019-10-06] MEDS: predniSONE 1 MG TAB PO SCH (08:52)
[2019-10-06] MEDS: VITAMIN D 1,000 INTERNATIONAL UNITS TABLET PO SCH (08:52)
[2019-10-06] MEDS: predniSONE 5 MG TAB PO SCH (08:52)
[2019-10-06] MEDS: CALCITRIOL 0.25 MCG CAP (S0169) PO SCH (08:52)
[2019-10-06] MEDS: CALCIUM/VITAMIN D 500 MG TAB PO SCH (08:52)
[2019-10-06] MEDS: FEBUXOSTAT 40 MG TABLET (ULORIC) PO SCH (08:52)
[2019-10-06] MEDS: DIMETHICONE 2% OINTMENT(VANIPLY) 70GM TUBE TOP SCH ×2 (08:53→21:25)
[2019-10-06] MEDS: HEPARIN SOD (PORCINE) 5000 UNITS/ML VIAL SC SCH ×2 (08:53→21:25)
[2019-10-06 09:25] LABS: CALCIUM LEVEL 8.5 MG/DL (8.8-10.2); CREATININE FOR GFR 5.17 MG/DL (0.70-1.30); GLOMERULAR FILTRATION RATE 11.6 (>42); PHOSPHORUS LEVEL 3.9 MG/DL (2.5-4.9); POTASSIUM SERUM 3.5 MEQ/L (3.5-5.1)
[2019-10-06] MEDS ORDERED: HEPARIN 1,000 UNITS/ML 10ML VIAL (FOR RADIOLOGY& DIALYSIS ONLY) XX ONE (13:00)
[2019-10-06] MEDS ORDERED: HEPARIN 1,000 UNITS/ML 10ML VIAL (FOR RADIOLOGY& DIALYSIS ONLY) IV ONE (13:00)
--- NOTE | 2019-10-06 14:06 | CR.PDOC ---
General Date of Consultation: Oct 06, [address] Galindo HPI: 74 year old M with a past medical history significant for ESRD currently on hemodialysis as per nephrology every Friday with left upper extremity brachiocephalic AV fistula. The patient was admitted 10/04/19 related to confusion and lethargy. He had also been admitted 10/03/19 related to left olecranon bursitis with orthopedic consultation the same date. Recommendation was for antibiotics and outpatient follow-up. Vascular surgery is consulted to reassess hemodialysis access. Most of the history is from the patient's , the patient has a difficult time recalling events. The patient's states that he was dialyzed Friday09/27/19 and approximately 1 hour into dialysis the patient noted swelling around his fistula and left upper extremity pain. The dialysis needle was removed. His believes that the remainder of his dialysis was completed with the right chest PermCath. He apparently returned for dialysis 09/29/19 and his PermCath was used because his left upper extremity remained swollen and ecchymotic. Dialysis has been using right chest PermCath which has been functioning. The patient continues to report ecchymosis, left upper extremity swelling and discomfort as well as pain around the left elbow area. Denies any fevers, chills, weakness, fatigue, Headache, Chest Pain, Shortness of breath, cough, palpitations, abdominal pain, N/V/D or changes in bowel or bladder habits. PAST MEDICAL /SURGICAL HISTORY: ESRD on dialysis Friday, Friday and Friday via left arm AV fistula and Port-A-Cath History of vascular steal syndrome Anemia of chronic disease complicated by anemia Chronic Diastolic dysfunction. Mitral valve prosthesis. Aortic stenosis. Mild pulmonary hypertension. History of [id number] type 2 diabetes mellitus (no longer on medications) CAD status post quadruple bypass. History of bladder cancer twice (is currently in remission). Gout. Restrictive lung disease. ABELARDO/OHS (not compliant with BiPAP) Chronic back pain with spinal stimulator implant. Anxiety. History of right knee surgery. History of elbow surgery SOCIAL HISTORY: Former smoker FAMILY HISTORY: Mother: Diabetes ROS: As noted in HPI, otherwise 11pt ROS of systems reviewed and remarkable for chronic insomnia. PE: GEN: 74 yo M, generally ill-appearing, alert and oriented x 3. Out of bed to chair. HEENT: Normocephalic, atraumatic. Moist mucous membranes. CHEST: Regular rate and rhythm, +S1, +S2 LUNGS: Clear to auscultation bilaterally. ABD: Round, soft, non-tender, non-distended. EXT: The left upper extremity is noted to have generalized ecchymosis, generalized swelling extending down to the hand. The patient is currently not elevating the left upper extremity. Pillows are on the floor. There is tenderness with palpation around the left elbow area, there is a bandage intact. AV fistula in the left upper extremity with palpable thrill however there is some pulsatility noted. PermCath right chest with dressing intact, no tenderness, erythema, drainage. NEURO: Alert and oriented x 3. Cranial nerves III-XII are intact. No focal deficits appreciated. LEFT ELBOW AP LATERAL: 10/03/2019. COMPARISON: Soft tissue ultrasound of the left elbow, 10/03/2019. CLINICAL HISTORY: Elbow pain and swelling. Complex subcutaneous fluid collection by ultrasound. FINDINGS: Two views show some prominent soft tissue swelling about the olecranon as well as the proximal forearm adjacent to the elbow. I do not see definite avulsion fragment from triceps insertion. There are degenerative changes at the elbow and soft tissue swelling medially and laterally as well as some in the antecubital fossa suggested. Radial head and capitellum align normally. No visible fracture or destructive lesion. I cannot define a definite effusion. IMPRESSION: 1. Prominent soft tissue swelling over the olecranon and almost circumferentially about the elbow. Finding may reflect some olecranon bursitis, but ultrasound suggested complex fluid collection such as abscess or hematoma. 2. No visible fracture or impaction deformity. No definite effusion. Electronically Signed by Tani Sweeney MD 10/03/2019 05:05 P PROCEDURE INFORMATION: Exam: US Left Non-Vascular Joint or Other Extremity Structure, Limited Upper Extremity Exam date and time: 10/03/2019 1:12 AM Age: 74 years old Clinical history: Pain; Elbow; Left; Additional info: Eval L elbow abscess TECHNIQUE: Imaging protocol: Left US Non-Vascular Joint or Other Extremity Structure. Limited exam of the upper extremity. COMPARISON: CR Elbow, complete 03/26/2017 3:54 PM FINDINGS: Soft tissues: There is a complex subcutaneous fluid collection in the lateral elbow measuring approximately 3.5 x 0.7 x 3.6 cm. No internal blood flow in the collection or surrounding hyperemia. IMPRESSION: Complex subcutaneous fluid collection. Possible abscess, hematoma, or complex seroma. No internal blood flow in the collection. Electronically signed by: Emanuel Velasquez On 10/03/2019 02:00:50 AM A&P: 1. Left upper extremity AV fistula with recent bleeding/swelling at dialysis 09/27/19. X-ray of the left elbow and ultrasound of the left upper extremity as noted above. Patient had been subsequently admitted and treated for olecranon bursitis 10/03/19 currently the patient remains on IV clindamycin. The patient's fistula is noted to have a palpable thrill however there is pulsatility noted. There is generalized ecchymosis around the fistula and the left upper extremity as well as swelling extending down to the hand. Will review further with Dr. Galindo for additional recommendations. Would recommend to elevate the left upper extremity. Dialysis currently through right chest PermCath. The patient states this has been functioning well. Thank you for your consultation. We will continue to follow along with you. Vital Signs/I&O Vital Signs Date Time Temp Pulse Resp B/P (MAP) Pulse Ox O2 Delivery O2 Flow Rate FiO2 10/06/19 12:00 96.9 78 18 122/72 (89) 93 Room Air 10/06/19 04:00 1.0 I&O- Last 24 Hours up to 6 AM 10/06/19 06:00 Intake Total 590 ml Output Total 0 ml Balance 590 ml Laboratory Data Labs 24H Laboratory Tests 2 10/05/19 16:32: Bedside Glucose (Misc Panel) 110 10/05/19 21:16: Bedside Glucose (Misc Panel) 165H 10/06/19 05:54: Anion Gap 9, Glomerular Filtration Rate 11.6L, Calcium Level 8.5L, Phosphorus Level 3.9, C-Reactive Protein, Quantitative 12.90H, Albumin 3.0L CBC/BMP Laboratory Tests 10/06/19 05:54 Microbiology Microbiology 10/04/19 Blood Culture - Preliminary, Resulted No Growth after 48 hours. All Specime... 10/04/19 Blood Culture - Preliminary, Resulted No Growth after 48 hours. All Specime... Allergies Coded Allergies: aspirin (Verified Allergy, Severe, LIPS SWELL, 03/29/19) Penicillins (Verified Allergy, Intermediate, RASH, 04/15/19) ampicillin (Verified Allergy, Intermediate, HIVES, 03/17/19) ceftriaxone (Verified Allergy, Unknown, UNKNOWN REACTION, 04/09/19) Home Medications Scheduled Atorvastatin Calcium (Atorvastatin Calcium) 20 Mg Tablet, 20 MG PO QHS, (Reported) Ca/D3/Mag Ox/Zinc/Signal System Testing Maintainer/Uche/Bor (Calcium 600-D3 Plus Caplet) 1 Each Tablet, 1 TAB PO DAILY, (Reported) Calcitriol (Calcitriol) 0.25 Mcg Capsule, 0.25 MCG PO 3XW, (Reported) RECEIVES AT DIALYSIS ON FRIDAY, FRIDAY AND FRIDAY Carvedilol (Carvedilol) 6.25 Mg Tablet, 6.25 MG PO BID, (Reported) Clindamycin Hcl (Clindamycin HCl) 150 Mg Capsule, 600 MG PO Q8H, (Reported) Clopidogrel Bisulfate (Clopidogrel) 75 Mg Tablet, 75 MG PO DAILY, (Reported) Docusate Sodium (Docusate Sodium) 100 Mg Capsule, 100 MG PO BID, (Reported) Doxycycline Monohydrate (Doxycycline Monohydrate) 100 Mg Tablet, 100 MG PO BID for 10 Days, (Reported) NEW RX, HAS NOT STARTED Duloxetine Hcl (Cymbalta) 60 Mg Capsule.dr, 60 MG PO DAILY, (Reported) Ergocalciferol (Vitamin D2) (Vitamin D2) 2,000 Unit Tablet, 4,000 UNITS PO DAILY, (Reported) Febuxostat (Uloric) 80 Mg Tablet, 80 MG PO Q2D, (Reported) AT BEDTIME Lactobacillus Acidophilus (Probiotic) 1 Each Capsule, 1 CAP PO QHS, (Reported) Multivitamins (Thera M Plus Tablet) 1 Each Tablet, 1 TAB PO DAILY, (Reported) Naldemedine Tosylate (Symproic) 0.2 Mg Tablet, 0.2 MG PO DAILY, (Reported) Prednisone (Prednisone) 1 Mg Tablet, 6 MG PO DAILY, (Reported) Tiotropium [place] (Spiriva Respimat) 4 Gm Mist.inhal, 2 PUFFS INH DAILY, (Reported) Ubidecarenone (Co Q-10) 200 Mg Capsule, 200 MG PO BID, (Reported) Scheduled PRN Albuterol Sulf (Albuterol Sulfate) 2.5 Mg/3 Ml Vial.neb, 2.5 MG INH Q2H PRN for SOB/WHEEZING, (Reported) Albuterol Sulfate (Proair Hfa) 8.5 Gm Hfa.aer.ad, 2 PUFF INH QID PRN for SHORTNESS OF BREATH, (Reported) Alprazolam (Alprazolam) 0.25 Mg Tablet, 0.25 MG PO TID PRN for ANXIETY, (Reported) Baclofen (Baclofen) 10 Mg Tablet, 10 MG PO BID PRN for MUSCLE SPASMS, (Reported) Benzonatate (Benzonatate) 100 Mg Capsule, 100 MG PO TID PRN for COUGH, (Reported) Glycerin (Adult Glycerin) 1 Each Supp.rect, [address] DAILY PRN for CONSTIPATION, (Reported) Hydroxyzine HCl (Hydroxyzine HCl) 25 Mg Tablet, 25 MG PO TID PRN for ITCHING, (Reported) Morphine Sulfate (Morphine Sulfate) 15 Mg Tablet, 15 MG PO Q6H PRN for PAIN, (Reported) Gabi Kuhn Oct 06, 2019 14:06
--- NOTE | 2019-10-06 19:32 | IPNPDOC ---
Date Seen The patient was seen on 10/06/19. Progress Note SUBJECTIVE: Patient reportedly still anxious and doesn't sleep well. Pain persistent, re-started on morphine PO. L. elbow discomfort noted, slightly worse today. OBJECTIVE PHYSICAL EXAMINATION: VITAL SIGNS: Please see below. General: slightly tremulous, Alert Eyes: Normal sclera, EOMI, BUTCH HENT: Atraumatic Cardiovascular: Normal rate, normal rhythm. Pulmonary: Clear to auscultation b/l, no wheezing GI: Soft, nontender, nondistended Skin: Warm and dry Neuro: CN grossly intact. No focal deficits. Psych: oriented x 3 LABORATORY DATA, IMAGING STUDIES, MICROBIOLOGY: Please see below. DVT prophylaxis ordered?: HSQ ASSESSMENT AND PLAN: 1. AMS - resolved - Infectious vs. psychiatric - L. elbow/olecrenon bursitis and leukocytosis. - Patient and family also noted anxiety and patient unable to sleep for several days that could contribute to lethargy. 2. L. elbow olecranon bursitis/cellulitis - reportedly had improved but still has significant discomfort. c/w clindamycin. - Ortho to re-evaluate. 3. ESRD - c/w HD per nephrology. 4. Anxiety - Psych consulted. Patient unable to sleep due to anxiety. - c/w Xanax PRN home dose. 5. Restrictive lung disease - c/w albuterol, spiriva 6. HTN/HFpEF - c/w coreg 7. gout - c/w Febuxostat 8. chronic back pain - has spinal stimulator implant. - pain control. 9. OA with severe back, hip, and shoulder pain - On morphine, baclofen, cymbalta. - Follows with pain management as outpatient, re-evaluated here. - Recommended morphine 15 mg IR 1/2 tablet q4-6 hours. - Can try Tramadol if opiate use becomes a concern. 10. L. AV fistula bleeding at dialysis on 09/27/19 - Evaluated by vascular team. Elevate extremity. - bruising reportedly had improved. DISPOSITION: Home vs. ERIN? VS, I&O, 24H, Fishbone Vital Signs/I&O Vital Signs Date Time Temp Pulse Resp B/P (MAP) Pulse Ox O2 Delivery O2 Flow Rate FiO2 10/06/19 17:59 97.1 88 18 147/68 (94) 93 Room Air 10/06/19 04:00 1.0 I&O- Last 24 Hours up to 6 AM 10/06/19 06:00 Intake Total 590 ml Output Total 0 ml Balance 590 ml Laboratory Data 24H LABS Laboratory Tests 2 10/05/19 21:16: Bedside Glucose (Misc Panel) 165H 10/06/19 05:54: Anion Gap 9, Glomerular Filtration Rate 11.6L, Calcium Level 8.5L, Phosphorus Level 3.9, C-Reactive Protein, Quantitative 12.90H, Albumin 3.0L CBC/BMP Laboratory Tests 10/06/19 05:54 Microbiology Microbiology 10/04/19 Blood Culture - Preliminary, Resulted No Growth after 48 hours. All Specime... 10/04/19 Blood Culture - Preliminary, Resulted No Growth after 48 hours. All Specime... ALEIDA VALENTINE MD Oct 06, 2019 19:32
--- NOTE | 2019-10-06 19:44 | IPN ---
DATE: 10/06/2019 Mr. Mckeon is seen this morning on his bedside. He reports increased pain and swelling in his left arm. He denies any nausea, vomiting, dyspnea or chest pain. He is due for dialysis today. PHYSICAL EXAMINATION Temperature 97 degrees Fahrenheit, heart rate 82 per minute and respiratory rate 18 per minute. Blood pressure 122/72 mmHg and oxygen saturation 93% on room air. His head is atraumatic. Neck is supple and jugular venous distention (JVD) slightly elevated. Hemodialysis catheter on right upper chest is intact. Heart: Sounds are regular and lungs with slightly diminished breath sounds at bases. Abdomen: Soft and nontender. Bowel sounds are normal. Extremities have no cyanosis or clubbing. His left forearm is more swollen and tender. Left upper arm AV fistula is patent. Neurologically he is awake, alert and oriented times three. Today's labs show WBC count 14.0, hemoglobin 8.9 and hematocrit 28.6. Sodium 132, potassium 3.5, CO2 27, BUN 44 and creatinine 5.17. C-reactive protein is down to 12.9 and albumin is 3.0. PROBLEMS: 1. End-stage renal disease. The patient is due for dialysis today and we are going to dialyze him this afternoon. We will use his Perma-Cath and continue to rest his left arm AV fistula. 2. Left arm edema. His volume status is slightly decompensated as he had some edema on the lower extremities also. We will try to remove about 3.5 liters of fluid today with dialysis and see how he does. 3. Hyponatremia. This is mild hyponatremia related to end-stage renal disease and volume overload. It is likely to correct with dialysis and fluid removal. No other intervention is indicated. 4. Left arm cellulitis. The patient remains on antibiotics and his C-reactive protein is improving. 5. Anemia. His anemia is stable and does not need any urgent intervention. 6. Hypertension. Blood pressure is also reasonably well-controlled and no change in antihypertensive meds is needed. 7. Altered mentation. His mentation has returned back to baseline.
[2019-10-06] MEDS: LACTOBACILLUS ACIDOPHILUS CAP (BACID) PO SCH (21:26)
[2019-10-06] MEDS: ATORVASTATIN 20 MG TAB PO SCH (21:26)
[2019-10-07] VITALS (13 sets, daily range): BP systolic 109–146; BP diastolic 54–64; O2SAT 93–98
[2019-10-07] MEDS: CLINDAMYCIN 600 MG in IV 1 EA IV SCH ×3 (01:35→14:00)
[2019-10-07] MEDS: MORPHINE 30 MG TAB **MSIR PO PRN ×3 (01:44→20:55)
[2019-10-07] MEDS: ACETAMINOPHEN TAB 650MG DOSE (2X325MG) PO PRN (04:02)
[2019-10-07 05:51] LABS: HEMOGLOBIN 9.3 g/dl (13.5-17.5); MEAN CORPUSCULAR HEMOGLOBIN 32.1 pg (27.0-33.0); MEAN CORPUSCULAR VOLUME 103.4 fl (80.0-96.0); PLATELET COUNT, AUTOMATED 232 10^3/uL (150-450); WHITE BLOOD COUNT 11.4 10^3/uL (4.0-10.0)
[2019-10-07 06:15] LABS: ERYTHROCYTE SEDIMENTATION RATE 106 mm/hr (0-20)
[2019-10-07 06:19] LABS: C REACTIVE PROTEIN QUANTITATIV 8.73 MG/DL (0.00-0.30)
--- NOTE | 2019-10-07 07:47 | MHCR ---
DATE OF CONSULTATION: 10/06/2019 CHIEF COMPLAINT: Feel anxious. SUBJECTIVE: He is 74 years old, he is , has a few children, some are in the area, and one out of state. They are a close family. He is here with his , who is at the bedside, with his permission, and was present throughout the evaluation. I have been asked to see this patient by the hospitalist, to assess for anxiety, particularly prior to sleep, as it is thought that has interfered with his ability to sleep. Chart is reviewed, patient is interviewed, as well as his . He has several medical difficulties, renal failure, he is on dialysis, has a history of congestive heart failure, has had bladder cancer, diabetes, and is seen by Dr. Dill for primary care. He has had cardiac surgery, on at least two occasions, most recently about 3-1/2 years ago. He had been in the hospital recently, with swelling in his left elbow, and then arm, thought to have an infection, and pain, was seen in the hospital and then discharged, and came back within a few hours a couple of days ago, was noted to be confused, unaware of his whereabouts. Says does remember the ambulance coming, but does not remember the journey to the hospital, remembers being in the hospital subsequent to that. says he had become confused, had difficulties with his surroundings, and that is most unlike him, that happened for a couple of days, and then he was brought in. During that time, he noticed, he says in retrospect, that he had terrifying nightmares, says was asleep at the time, had a couple of them, they were most unusual, and afterwards, has been afraid of going to sleep, for fear of nightmares, and of not waking up. He has been anxious about getting to sleep the last several months, possibly six months or so, thinks it may be a bit extended, and has had anxieties particularly in the evenings, since his last cardiac surgery, which was 3-1/2 years ago. Since he has been dialysis the last six months or so, his fears have gone up, in the evenings, when preparing for bed, as he is afraid he may not wake up. Does not wish to , is afraid that he might. His notices this, tends to reassure him. He does not feel very anxious during the day, however, and is not chronically anxious. When busy, anxiety is diminished, and when things quiet in the night, anxieties go up. is concerned that on several occasions over the last few months he then tends to get up, goes to the kitchen counter, there is a television there, stands at the counter, with his elbows on it, and then nods off, and falls to the ground. She says they brought him to the emergency room after such instances on several occasions. He is seen to do well when busy with family, for example. Has been on Paxil for several years, says it was 20 mg, and then a couple of weeks ago it was stopped, he was started on Cymbalta, which he currently uses at 60 mg daily. His anxieties, panic attacks, increased over the last couple of weeks. Denies feeling pervasively depressed, says he tends to worry about his health, family, and finances as well. He is in touch with friends, likes being with family, watches television, says those interests have not really diminished. It should also be noted he has been diagnosed with sleep apnea, and has had consistent difficulties keeping the mask on, feels claustrophobic. suggests it is after his open heart surgery, when he was intubated, and had been anxious upon waking up. He denies feeling pervasively depressed, denies any wishes to , denies any suicidal thoughts or intents. Denies any major emotional difficulties prior to the last couple of years or so, particularly the last six months, and even more so the last two weeks. PAST PSYCHIATRIC HISTORY: None formally. No history of suicidal attempts, nor any inpatient psychiatric hospitalizations. SUBSTANCE ABUSE HISTORY: None significantly, though says there was a time when his drinking had gone up, and then he stopped about 10 years ago. Says the drinking was not problematic. PAST MEDICAL HISTORY: As indicated above, has coronary artery disease, has had quadruple bypass, mitral valve prosthesis, chronic diastolic dysfunction, vascular steal syndrome, is on dialysis, has end stage renal disease, history of bladder cancer, he is in remission at the moment, restrictive lung disease, has obstructive sleep apnea, chronic back pain, has a spinal stimulator, has had right knee surgery, and elbow surgery. SOCIAL HISTORY: He and is live together, they have been together for 50 years. He has children, he is close to them, some of whom live in the area. He has friends, keeps in touch with them, and on Tuesdays attends a breakfast regularly. MENTAL STATUS EXAMINATION: He is sitting in the chair by the bedside. He is in hospital clothes, he is neat. He is cooperative. He is obese. There is good eye contact. No agitation. No psychomotor retardation. Answers questions coherently. Affect is restricted but reactive. There is no evidence of any thoughts of harming himself or anyone else. Denies any suicidal thoughts or intents. No history of any psychosis. He is alert. He is able to maintain and shift attention adequately. He is oriented to time, place and person. Can spell the word house forwards and backwards, but needed a couple of tries to spell it backwards. He can recall 1 out of 3 objects after 5 minutes, and 1 out of 3 after 10 minutes, even with prompting. Intellect is average. Judgment is good. Insight is fair to good. ASSESSMENT: Other specified anxiety disorder. Delirium, multifactorial. His confusion, nightmares, may well be part of delirium, which has been multifactorial, and now essentially resolved. Has had significant anxiety in the recent months, particularly since starting dialysis, gets anxious at night, prior to sleep, for fear that he will not wake up. Recent anxieties and panic attacks may also have been contributed by the sudden stopping of Paxil, as he had been on it for a few years and is currently on Cymbalta. No firm evidence of any chronic pervasive anxiety, nor clinically significant depression at this evaluation. Recent nightmares, confusion, most likely contributed to by the delirium. RECOMMENDATIONS: May use Xanax 0.25 mg in the evening as needed if severe anxiety, prior to bed. Continue duloxetine 60 mg daily, was taking it at home. His thought that he was on 30 mg, but apparently he has been taking 60 mg. The duloxetine may be useful for anxiety, though less so for periodic anxiety, suggests it was also given to him for treatment of pain. He is to use caution using the Xanax, when he takes the morphine. Given the use of the Xanax, the patient's suggested there are times when he has used only 0.125 mg, it is debatable whether that has been effective. Has sleep apnea, and that may have impacted other factors as well, and using the Xanax prior to using the mask may be helpful. Occupational therapy to enhance his safety, as he has tended to fall asleep when standing, and then fall, may be indicated. To help address his anxiety prior to sleep, may potentially benefit from seeing a counselor or therapist as an outpatient, and can be referred to one. Thank you for the consult. If there are any questions, please call. My assessment and recommendations are discussed with the patient and his and their questions were answered. The assessment took 60 minutes.
[2019-10-07] MEDS: TIOTROPIUM INHALER/CAPSULE (SPIRIVA) INH SCH (07:48)
[2019-10-07] MEDS: CLOPIDOGREL 75 MG TAB PO SCH (08:46)
[2019-10-07] MEDS: MULTIVITAMINS/MINERALS THERAP 1 TAB PO SCH (08:46)
[2019-10-07] MEDS: MIRALAX *UNIT DOSE* 17GM PACKET PO SCH ×2 (08:46→20:56)
[2019-10-07] MEDS: DULoxetine 30 MG CAP (CYMBALTA) PO SCH (08:46)
[2019-10-07] MEDS: predniSONE 5 MG TAB PO SCH (08:46)
[2019-10-07] MEDS: HEPARIN SOD (PORCINE) 5000 UNITS/ML VIAL SC SCH ×2 (08:46→20:54)
[2019-10-07] MEDS: CALCIUM/VITAMIN D 500 MG TAB PO SCH (08:46)
[2019-10-07] MEDS: VITAMIN D 1,000 INTERNATIONAL UNITS TABLET PO SCH (08:46)
[2019-10-07] MEDS: CARVedilol 6.25 MG TAB PO SCH ×2 (08:47→20:56)
[2019-10-07] MEDS: DIMETHICONE 2% OINTMENT(VANIPLY) 70GM TUBE TOP SCH ×2 (08:47→20:57)
[2019-10-07] MEDS: DOCUSATE SODIUM 100 MG CAP PO SCH ×2 (08:47→20:55)
[2019-10-07] MEDS: predniSONE 1 MG TAB PO SCH (08:47)
--- NOTE | 2019-10-07 09:26 | IPNPDOC ---
Text Note Date of Service The patient was seen on 10/07/19. NOTE Vascular surgery. Dr. Galindo HPI: 74 year old M with a past medical history significant for ESRD currently on hemodialysis as per nephrology every Friday with left upper extremity brachiocephalic AV fistula. The patient was admitted 10/04/19 related to confusion and lethargy. He had also been admitted 10/03/19 related to left olecranon bursitis with ort hopedic consultation the same date. Recommendation was for antibiotics and outpatient follow-up. Vascular surgery is consulted to reassess hemodialysis access. Most of the history is from the patient's , the patient has a difficult time recalling events. The patient's states that he was dialyzed Friday09/27/19 and approximately 1 hour into dialysis the patient noted swelling around his fi stula and left upper extremity pain. The dialysis needle was removed. His believes that the remainder of his dialysis was completed with the right chest PermCath. He apparently returned for dialysis 09/29/19 and his PermCath was used because his left upper extremity remained swollen and ecchymotic. Dialysis has been using right chest PermCath which has been functioning. This a.m. the patient is sitting on the side of the bed, states he slept very poorly last evening related to back pain. The patient states left upper extremity pain and swelling seems to be less pronounced, the patient states he elevated his arm throughout the night. Also reports pain around the elbow joint area is improved. Denies weakness, numbness, or tingling in the left upper extremity. Left upper extremity AV fistula with palpable thrill, some pulsatility noted. There is diffuse ecchymosis of the left upper extremity. Diffuse edema although this does seem slightly decreased today. No warmth with palpation. He is moving his hand, strength seems to be at baseline. Sensation intact. Left upper extremity AV fistula with recent bleeding/swelling at dialysis 09/27/19. The patient remains on IV clindamycin for olecranon bursitis as per medicine service. The patient's fistula is noted to have a palpable thrill however there is pulsatility noted. There is generalized ecchymosis around the fistula and the left upper extremity as well as swelling extending down to the hand. Continue to elevate the left upper extremity. Dialysis currently through right chest PermCath. The patient states this has been functioning well. Dr. Martinezd to further review for any additional recommendations. VS,Blanca, I+O VS, Blanca, I+O Laboratory Tests 10/07/19 05:14 Vital Signs Date Time Temp Pulse Resp B/P (MAP) Pulse Ox O2 Delivery O2 Flow Rate FiO2 10/07/19 08:47 90 133/86 10/07/19 08:00 97.6 18 97 10/07/19 06:00 Nasal Cannula 2.0 l I&O- Last 24 Hours up to 6 AM 10/07/19 06:00 Intake Total 1590 ml Output Total 3500 ml Balance -1910 ml Gabi Kuhn Oct 07, 2019 09:26
[2019-10-07 13:14] LABS: ALBUMIN 3.1 GM/DL (3.2-5.2); CALCIUM LEVEL 9.5 MG/DL (8.8-10.2); CREATININE FOR GFR 3.36 MG/DL (0.70-1.30); GLOMERULAR FILTRATION RATE 19.2 (>42); PHOSPHORUS LEVEL 2.8 MG/DL (2.5-4.9); POTASSIUM SERUM 4.1 MEQ/L (3.5-5.1)
--- NOTE | 2019-10-07 14:28 | IPN ---
DATE: 10/07/2019 Mr. Groves is seen this morning on his bedside. He reports that he could not sleep well again last night and he is currently trying to get some rest. He underwent dialysis yesterday and we removed 3.5 liters of fluid. His left arm and lower extremity edema has improved. He denies any dyspnea or chest pain at present. On physical examination, temperature 97.6 degrees Fahrenheit, heart rate 90 per minute and respiratory rate 20 per minute. Blood pressure 133/86 mmHg and oxygen saturation 95% on 2 liters oxygen. Head is atraumatic. Neck veins are still markedly distended. There is no oral thrush or ulcers. Heart sounds are irregular in rhythm. Lungs with slightly diminished breath sounds and basilar rales. Abdomen: Soft and nontender. Extremities: Without any cyanosis or clubbing. Left arm edema and tenderness has improved significantly. Lower extremity edema is still 2+. Neurologically, he is awake, alert and at his baseline mentation. Today's labs show WBC count 11.4, hemoglobin 9.3, and C-reactive protein has come down to 8.73 and no other chemistry was done today. PROBLEMS: 1. End-stage renal disease. The patient was dialyzed yesterday and he tolerated his dialysis and 3.5 liters of fluid removal well yesterday. 2. Congestive heart failure. His volume status is still decompensated and we will try to ultrafiltrate him today and remove another 2.0 or 2.5 liters of fluid as tolerated. 3. Left arm cellulitis. His C-reactive protein is improving and forearm tenderness has also improved. He remains on antibiotic. 4. Hyponatremia. His sodium level was slightly low yesterday at 132. He did have dialysis and we will add his renal profile for chemistry today.
[2019-10-07] MEDS ORDERED: HEPARIN 1,000 UNITS/ML 10ML VIAL (FOR RADIOLOGY& DIALYSIS ONLY) XX ONE (15:00)
[2019-10-07] MEDS ORDERED: HEPARIN 1,000 UNITS/ML 10ML VIAL (FOR RADIOLOGY& DIALYSIS ONLY) IV ONE (15:00)
--- NOTE | 2019-10-07 19:01 | IPNPDOC ---
Date Seen The patient was seen on 10/07/19. Progress Note SUBJECTIVE: Patient appeared to be more alert/less lethargic today. Patient still reports pain in multiple joints but unchanged from prior. Afebrile overnight. WBC 14->11.4 OBJECTIVE PHYSICAL EXAMINATION: VITAL SIGNS: Please see below. General: slightly tremulous, Alert Eyes: Normal sclera, EOMI, BUTCH HENT: Atraumatic Cardiovascular: Normal rate, normal rhythm. Pulmonary: Clear to auscultation b/l, no wheezing GI: Soft, nontender, nondistended Skin: Warm and dry, multiple bruising through out, particularly in upper extremities. MKS: L. elbow swellling with evolving hematoma. Neuro: CN grossly intact. No focal deficits. Psych: oriented x 3 LABORATORY DATA, IMAGING STUDIES, MICROBIOLOGY: Please see below. DVT prophylaxis ordered?: HSQ ASSESSMENT AND PLAN: 1. AMS - resolved - Infectious vs. psychiatric - L. elbow/olecrenon bursitis and leukocytosis. - Patient and family also noted anxiety and patient unable to sleep for several days that could contribute to lethargy. 2. L. elbow olecranon bursitis/cellulitis - reportedly had improved but still bruised and swelling. c/w clindamycin. - Ortho had evaluated, offered aspiration but had decline at the time. Plan to complete antibiotic course and follow with ortho as outpatient. 3. ESRD - c/w HD per nephrology. 4. Anxiety - Psych consulted. Patient unable to sleep due to anxiety. - c/w Xanax PRN home dose. 5. Restrictive lung disease - c/w albuterol, spiriva 6. HTN/HFpEF - c/w coreg 7. gout - c/w Febuxostat 8. chronic back pain - has spinal stimulator implant. - pain control. 9. OA with severe back, hip, and shoulder pain - On morphine, baclofen, cymbalta. - Follows with pain management as outpatient, re-evaluated here. - Recommended morphine 15 mg IR 1/2 tablet q4-6 hours. - Can try Tramadol if opiate use becomes a concern. 10. L. AV fistula bleeding at dialysis on 09/27/19 - Evaluated by vascular team. Elevate extremity. - bruising reportedly had improved. DISPOSITION: Home vs. ERIN? VS, I&O, 24H, Fishbone Vital Signs/I&O Vital Signs Date Time Temp Pulse Resp B/P (MAP) Pulse Ox O2 Delivery O2 Flow Rate FiO2 10/07/19 12:38 20 10/07/19 09:00 95 Nasal Cannula 2.0 10/07/19 08:47 90 133/86 10/07/19 08:00 97.6 I&O- Last 24 Hours up to 6 AM 10/07/19 06:00 Intake Total 1590 ml Output Total 3500 ml Balance -1910 ml Laboratory Data 24H LABS Laboratory Tests 2 10/06/19 20:56: Bedside Glucose (Misc Panel) 179H 10/07/19 05:14: Nucleated Red Blood Cells % (auto) 0.0, Erythrocyte Sedimentation Rate 106H, Anion Gap 10, Glomerular Filtration Rate 19.2L, Calcium Level 9.5, Phosphorus Level 2.8#, C-Reactive Protein, Quantitative 8.73H, Albumin 3.1L CBC/BMP Laboratory Tests 10/07/19 05:14 Microbiology Microbiology 10/04/19 Blood Culture - Preliminary, Resulted No Growth after 72 hours. All specime... 10/04/19 Blood Culture - Preliminary, Resulted No Growth after 72 hours. All specime... ALEIDA VALENTINE MD Oct 07, 2019 19:01
[2019-10-07] MEDS ORDERED: CLIN150C14 PO (19:15)
[2019-10-07] MEDS: ATORVASTATIN 20 MG TAB PO SCH (20:55)
[2019-10-07] MEDS: LACTOBACILLUS ACIDOPHILUS CAP (BACID) PO SCH (20:55)
[2019-10-07] MEDS: CLINDAMYCIN 150 MG CAP PO SCH (22:00)
[2019-10-08] MEDS: ACETAMINOPHEN TAB 650MG DOSE (2X325MG) PO PRN (02:31)
[2019-10-08] MEDS: MORPHINE 30 MG TAB **MSIR PO PRN ×2 (06:33→21:40)
[2019-10-08] MEDS: CLINDAMYCIN 150 MG CAP PO SCH ×3 (06:33→21:40)
[2019-10-08 06:45] VITALS: BP 101/53
[2019-10-08] MEDS: TIOTROPIUM INHALER/CAPSULE (SPIRIVA) INH SCH (07:53)
[2019-10-08] MEDS: HEPARIN SOD (PORCINE) 5000 UNITS/ML VIAL SC SCH ×2 (08:34→21:39)
[2019-10-08] MEDS: MIRALAX *UNIT DOSE* 17GM PACKET PO SCH ×2 (08:34→21:00)
[2019-10-08] MEDS: MULTIVITAMINS/MINERALS THERAP 1 TAB PO SCH (08:35)
[2019-10-08] MEDS: CALCIUM/VITAMIN D 500 MG TAB PO SCH (08:35)
[2019-10-08] MEDS: DULoxetine 30 MG CAP (CYMBALTA) PO SCH (08:35)
[2019-10-08] MEDS: predniSONE 5 MG TAB PO SCH (08:35)
[2019-10-08] MEDS: DOCUSATE SODIUM 100 MG CAP PO SCH ×2 (08:35→21:40)
[2019-10-08] MEDS: CALCITRIOL 0.25 MCG CAP (S0169) PO SCH (08:35)
[2019-10-08] MEDS: CLOPIDOGREL 75 MG TAB PO SCH (08:35)
[2019-10-08] MEDS: predniSONE 1 MG TAB PO SCH (08:36)
[2019-10-08] MEDS: VITAMIN D 1,000 INTERNATIONAL UNITS TABLET PO SCH (08:36)
[2019-10-08] MEDS: FEBUXOSTAT 40 MG TABLET (ULORIC) PO SCH (08:36)
[2019-10-08] MEDS: DIMETHICONE 2% OINTMENT(VANIPLY) 70GM TUBE TOP SCH ×2 (09:00→21:38)
[2019-10-08] MEDS: CARVedilol 6.25 MG TAB PO SCH ×2 (09:00→21:40)
[2019-10-08] MEDS ORDERED: MAGNESIUM CITRATE 300 ML BTL PO ONE (10:30)
[2019-10-08] MEDS ORDERED: FLEET ENEMA PR PRN (11:15)
--- NOTE | 2019-10-08 11:55 | IPN ---
DATE: 10/08/2019 Mr. Groves is seen this morning on his bedside. He is sitting at the edge of bed and feels better today. He reports that he has had no bowel movement for last 6 days. He denies any nausea, vomiting, dyspnea or chest pain. He underwent ultrafiltration yesterday and we took off an extra 2.5 liters fluid while on the , we took off3.5 liters. PHYSICAL EXAMINATION: Temperature 98 degrees Fahrenheit, heart rate 72 per minute and respiratory rate 16 per minute. Blood pressure 113/55 mmHg and oxygen saturation 96% on room air. His head is atraumatic. Neck is supple and jugular venous distention (JVD) is minimally elevated. His lungs sound clear to auscultation. Heart sounds are regular. Abdomen is soft and nontender and bowel sounds are present. Extremities without any cyanosis or clubbing. Left arm edema and tenderness has improved significantly. Left upper arm AV fistula is functioning. Lower extremity edema has also improved significantly. His C-reactive protein is down to 5.31 today and no other labs have been done. PROBLEMS: 1. End-stage renal disease: The patient is regularly dialyzed on Friday, Friday and Friday schedule. He did have his last regular dialysis on Friday and is due for dialysis today. We had a plan to dialyze him here. However, I have been informed by nursing staff that [facility]. If he gets discharged, then he will go to outpatient dialysis clinic at 3-o'clock today. 2. Congestive heart failure: Volume status has improved significantly with aggressive fluid removal and ultrafiltration. Unfortunately at home, he has been noncompliant with fluid restriction and gets volume overloaded. He should continue following a fluid restriction of 1500 per day. 3. Left forearm cellulitis. His arm is improving and he remains on antibiotic. C-reactive protein is gradually decreasing. The hospitalist service is managing his antibiotics. He has been placed on clindamycin 600 mg every 8 hours now. 4. Anemia. His anemia is stable and does not need any urgent intervention. This will be managed as outpatient. DISPOSITION: The patient has had no bowel movement for the last several days and he is waiting for a laxative. He can be discharged if he is considered stable after he has a bowel movement. He will be followed up in outpatient dialysis clinic.
--- NOTE | 2019-10-08 11:58 | IPNPDOC ---
Text Note Date of Service The patient was seen on 10/08/19. NOTE Vascular surgery. Dr. Galindo HPI: 74 year old M with a past medical history significant for ESRD currently on hemodialysis as per nephrology every Friday with left upper extremity brachiocephalic AV fistula. The patient was admitted 10/04/19 related to confusion and lethargy. He had also been admitted 10/03/19 related to left olecranon bursitis with orthopedic consultation the same date. Recommendation was for antibiotics and outpatient follow-up. Vascular surgery was consulted to reassess hemodialysis access. Most of the history is from the patient's , the patient has a difficult time recalling events. The patient's states that he was dialyzed Friday09/27/19 and approximately 1 hour into dialysis the patient noted swelling around his fistula and left upper extremity pain. The dialysis needle was removed. His believes that the remainder of his dialysis was completed with the right chest PermCath. He apparently returned for dialysis 09/29/19 and his PermCath was used because his left upper extremity remained swollen and ecchymotic. Dialysis has been using right chest PermCath which has been functioning. This a.m. the patient is sitting on the side of the bed. The patient states left upper extremity pain and swelling continues to improve. Also reports pain around the elbow joint area is improved. Denies weakness, numbness, or tingling in the left upper extremity. Reports sometimes his left hand feels cool. He has been using warm packs as needed. Left upper extremity AV fistula with palpable thrill. There is diffuse ecchymosis of the left upper extremity. Diffuse edema although this does seem to be diminishing daily. No warmth with palpation. He is moving his hand, strength seems to be at baseline. Sensation intact. Left upper extremity AV fistula with recent bleeding/swelling at dialysis 09/27/19. The patient's IV clindamycin is transitioned to by mouth for olecranon bursitis as per medicine service. The patient's fistula is noted to have a palpable thrill. There is generalized ecchymosis around the fistula and the left upper extremity as well as swelling extending down to the hand, however this appears to be improving daily. Continue to elevate the left upper extremity. Dialysis currently through right chest PermCath. The patient states this has been functioning well. Dr. Galindo reviewed and examined the patient this morning, continue to monitor the patient's left upper extremity, monitor the patient's thrill and on at her perfusion of the left hand. Continue to use PermCath for dialysis for now. VS,Fishbone, I+O VS, Fishbone, I+O Vital Signs Date Time Temp Pulse Resp B/P (MAP) Pulse Ox O2 Delivery O2 Flow Rate FiO2 10/08/19 09:00 13/55 10/08/19 07:03 16 Room Air 10/08/19 06:45 98.0 72 96 10/07/19 09:00 2.0 I&O- Last 24 Hours up to 6 AM 10/08/19 05:59 Intake Total 1260 ml Output Total 2500 ml Balance -1240 ml Gabi Kuhn Oct 08, 2019 11:58
--- NOTE | 2019-10-08 12:45 | DS.PDOC ---
Discharge Summary General Date of Admission Oct 04, 2019 at 01:43 Date of Discharge 10/08/19 Discharge Summary PROCEDURES PERFORMED DURING STAY: [None]. ADMITTING DIAGNOSES: 1. AMS 2. L. elbow cellulitis/bursitis 3. ESRD on HD 4. Anxiety 5. Restrictive lung disease 6. CAD 7. chronic HTN 8. Chronic HFpEF 9. gout 10. Chronic back pain with spinal stimulator implant 11. obesity DISCHARGE DIAGNOSES: 1. AMS 2. L. elbow cellulitis/bursitis 3. ESRD on HD 4. Anxiety 5. Restrictive lung disease 6. CAD 7. chronic HTN 8. Chronic HFpEF 9. gout 10. Chronic back pain with spinal stimulator implant 11. obesity COMPLICATIONS/CHIEF COMPLAINT: Ams, Olecranon Bursitis Left Elbow. HISTORY OF PRESENT ILLNESS: "The majority of the history is obtained from the ER provider. The patient was too sleepy to answer my questions. This is a 74-year-old male who was brought to the hospital by his because she noticed that he was confused. Yesterday he was admitted for evaluation of olecranon bursitis. He was evaluated by orthopedics and recommendations were made for him to continue antibiotics and follow up with them at a later date on an outpatient basis. After the patient's to commotion or seems more sleepy and not answering questions appropriately, so she brought back to the hospital. " HOSPITAL COURSE: DISCHARGE MEDICATIONS: Please see below. ALLERGIES: Please see below. PHYSICAL EXAMINATION ON DISCHARGE: VITAL SIGNS: Please see below. General: slightly tremulous, Alert Eyes: Normal sclera, EOMI, BUTCH HENT: Atraumatic Cardiovascular: Normal rate, normal rhythm. Pulmonary: Clear to auscultation b/l, no wheezing GI: Soft, nontender, nondistended Skin: Warm and dry, multiple bruising through out, particularly in upper extremities. MKS: L. elbow swellling with evolving hematoma. Neuro: CN grossly intact. No focal deficits. Psych: oriented x 3 LABORATORY DATA: Please see below. IMAGING: PROGNOSIS: ACTIVITY: [As tolerated]. DIET: DISCHARGE PLAN: DISPOSITION: . DISCHARGE INSTRUCTIONS: 1. . ITEMS TO FOLLOWUP ON ON OUTPATIENT: 1. . DISCHARGE CONDITION: [Stable]. TIME SPENT ON DISCHARGE: Greater than minutes. Vital Signs/I&Os Vital Signs Date Time Temp Pulse Resp B/P (MAP) Pulse Ox O2 Delivery O2 Flow Rate FiO2 10/08/19 09:00 13/55 10/08/19 07:03 16 Room Air 10/08/19 06:45 98.0 72 96 10/07/19 09:00 2.0 I&O- Last 24 Hours up to 6 AM 10/08/19 06:00 Intake Total 1260 ml Output Total 2500 ml Balance -1240 ml Laboratory Data Labs 24H Laboratory Tests 2 10/08/19 05:20: C-Reactive Protein, Quantitative 5.31H Microbiology Microbiology 10/04/19 Blood Culture - Preliminary, Resulted No Growth after 72 hours. All specime... 10/04/19 Blood Culture - Preliminary, Resulted No Growth after 72 hours. All specime... Discharge Medications Scheduled Atorvastatin Calcium (Atorvastatin Calcium) 20 Mg Tablet, 20 MG PO QHS, (Reported) Ca/D3/Mag Ox/Zinc/Triage Rn/Uche/Bor (Calcium 600-D3 Plus Caplet) 1 Each Tablet, 1 TAB PO DAILY, (Reported) Calcitriol (Calcitriol) 0.25 Mcg Capsule, 0.25 MCG PO 3XW, (Reported) RECEIVES AT DIALYSIS ON FRIDAY, FRIDAY AND FRIDAY Carvedilol (Carvedilol) 6.25 Mg Tablet, 6.25 MG PO BID, (Reported) Clindamycin Hcl (Clindamycin HCl) 150 Mg Capsule, 600 MG PO Q8H Clopidogrel Bisulfate (Clopidogrel) 75 Mg Tablet, 75 MG PO DAILY, (Reported) Docusate Sodium (Docusate Sodium) 100 Mg Capsule, 100 MG PO BID, (Reported) Duloxetine Hcl (Cymbalta) 60 Mg Capsule.dr, 60 MG PO DAILY, (Reported) Ergocalciferol (Vitamin D2) (Vitamin D2) 2,000 Unit Tablet, 4,000 UNITS PO DAILY, (Reported) Febuxostat (Uloric) 80 Mg Tablet, 80 MG PO Q2D, (Reported) AT BEDTIME Lactobacillus Acidophilus (Probiotic) 1 Each Capsule, 1 CAP PO QHS, (Reported) Multivitamins (Thera M Plus Tablet) 1 Each Tablet, 1 TAB PO DAILY, (Reported) Naldemedine Tosylate (Symproic) 0.2 Mg Tablet, 0.2 MG PO DAILY, (Reported) Prednisone (Prednisone) 1 Mg Tablet, 6 MG PO DAILY, (Reported) Tiotropium [place] (Spiriva Respimat) 4 Gm Mist.inhal, 2 PUFFS INH DAILY, (Reported) Ubidecarenone (Co Q-10) 200 Mg Capsule, 200 MG PO BID, (Reported) Scheduled PRN Albuterol Sulf (Albuterol Sulfate) 2.5 Mg/3 Ml Vial.neb, 2.5 MG INH Q2H PRN for SOB/WHEEZING, (Reported) Albuterol Sulfate (Proair Hfa) 8.5 Gm Hfa.aer.ad, 2 PUFF INH QID PRN for SHORTNESS OF BREATH, (Reported) Alprazolam (Alprazolam) 0.25 Mg Tablet, 0.25 MG PO TID PRN for ANXIETY, (Reported) Baclofen (Baclofen) 10 Mg Tablet, 10 MG PO BID PRN for MUSCLE SPASMS, (Reported) Benzonatate (Benzonatate) 100 Mg Capsule, 100 MG PO TID PRN for COUGH, (Reported) Glycerin (Adult Glycerin) 1 Each Supp.rect, 1 EA MN DAILY PRN for CONSTIPATION, (Reported) Hydroxyzine HCl (Hydroxyzine HCl) 25 Mg Tablet, 25 MG PO TID PRN for ITCHING, (Reported) Morphine Sulfate (Morphine Sulfate) 15 Mg Tablet, 15 MG PO Q6H PRN for PAIN, (Reported) Allergies Coded Allergies: aspirin (Verified Allergy, Severe, LIPS SWELL, 03/29/19) Penicillins (Verified Allergy, Intermediate, RASH, 04/15/19) ampicillin (Verified Allergy, Intermediate, HIVES, 03/17/19) ceftriaxone (Verified Allergy, Unknown, UNKNOWN REACTION, 04/09/19) ALEIDA VALENTINE MD Oct 08, 2019 12:45
[2019-10-08] MEDS ORDERED: HEPARIN 1,000 UNITS/ML 10ML VIAL (FOR RADIOLOGY& DIALYSIS ONLY) IV ONE (14:00)
[2019-10-08] MEDS ORDERED: HEPARIN 1,000 UNITS/ML 10ML VIAL (FOR RADIOLOGY& DIALYSIS ONLY) XX ONE (14:00)
--- NOTE | 2019-10-08 16:59 | REP ---
REASON: Nausea. FINDINGS: KUB shows the intestinal gas pattern to be nonspecific. The organ silhouettes insofar as delineated are unremarkable. There is no evidence of free intraperitoneal air. IMPRESSION: Nonspecific. Electronically Signed by Mehdi Emmanuel DO 10/11/2019 01:13 P
--- NOTE | 2019-10-08 19:07 | IPNPDOC ---
Date Seen The patient was seen on 10/08/19. Progress Note SUBJECTIVE: Patient appeared well this morning and had planned to go to [facility] but did not get accepted due to constipation and did not have a bowel movement until this evening. Afebrile overnight. Had a reported fall this evening but did not hit head. Had scrapes on arm. OBJECTIVE PHYSICAL EXAMINATION: VITAL SIGNS: Please see below. General: slightly tremulous, Alert Eyes: Normal sclera, EOMI, BUTCH HENT: Atraumatic Cardiovascular: Normal rate, normal rhythm. Pulmonary: Clear to auscultation b/l, no wheezing GI: Soft, nontender, nondistended Skin: Warm and dry, multiple bruising through out, particularly in upper extremities. MKS: L. elbow swellling with evolving hematoma. Neuro: CN grossly intact. No focal deficits. Psych: oriented x 3 LABORATORY DATA, IMAGING STUDIES, MICROBIOLOGY: Please see below. DVT prophylaxis ordered?: HSQ ASSESSMENT AND PLAN: 1. AMS - resolved - Infectious vs. psychiatric - L. elbow/olecrenon bursitis and leukocytosis. - Patient and family also noted anxiety and patient unable to sleep for several days that could contribute to lethargy. 2. L. elbow olecranon bursitis/cellulitis - reportedly had improved but still bruised and swelling. c/w clindamycin. - Ortho had evaluated, offered aspiration but had decline at the time. Plan to complete antibiotic course and follow with ortho as outpatient. 3. ESRD - c/w HD per nephrology. 4. Anxiety - Psych consulted. Patient unable to sleep due to anxiety. - c/w Xanax PRN home dose. 5. Restrictive lung disease - c/w albuterol, spiriva 6. HTN/HFpEF - c/w coreg 7. gout - c/w Febuxostat 8. chronic back pain - has spinal stimulator implant. - pain control. 9. OA with severe back, hip, and shoulder pain - On morphine, baclofen, cymbalta. - Follows with pain management as outpatient, re-evaluated here. - Recommended morphine 15 mg IR 1/2 tablet q4-6 hours. - Can try Tramadol if opiate use becomes a concern. 10. L. AV fistula bleeding at dialysis on 09/27/19 - Evaluated by vascular team. Elevate extremity. - bruising reportedly had improved. DISPOSITION: [facility] on Friday hopefully VS, I&O, 24H, Fishbone Vital Signs/I&O Vital Signs Date Time Temp Pulse Resp B/P (MAP) Pulse Ox O2 Delivery O2 Flow Rate FiO2 10/08/19 09:00 13/55 10/08/19 07:03 16 Room Air 10/08/19 06:45 98.0 72 96 10/07/19 09:00 2.0 I&O- Last 24 Hours up to 6 AM 10/08/19 06:00 Intake Total 1260 ml Output Total 2500 ml Balance -1240 ml Laboratory Data 24H LABS Laboratory Tests 2 10/08/19 05:20: C-Reactive Protein, Quantitative 5.31H Microbiology Microbiology 10/04/19 Blood Culture - Preliminary, Resulted No Growth after 72 hours. All specime... 10/04/19 Blood Culture - Preliminary, Resulted No Growth after 72 hours. All specime... ALEIDA VALENTINE MD Oct 08, 2019 19:07
[2019-10-08 21:25] VITALS: BP 120/60
[2019-10-08] MEDS: LACTOBACILLUS ACIDOPHILUS CAP (BACID) PO SCH (21:38)
[2019-10-08] MEDS: ATORVASTATIN 20 MG TAB PO SCH (21:40)
[2019-10-09 02:27] VITALS: BP 134/62
[2019-10-09] MEDS: CLINDAMYCIN 150 MG CAP PO SCH ×3 (05:50→22:01)
[2019-10-09 05:59] VITALS: BP 117/58
[2019-10-09] MEDS: VITAMIN D 1,000 INTERNATIONAL UNITS TABLET PO SCH (08:08)
[2019-10-09] MEDS: HEPARIN SOD (PORCINE) 5000 UNITS/ML VIAL SC SCH ×2 (08:09→22:01)
[2019-10-09] MEDS: predniSONE 5 MG TAB PO SCH (08:09)
[2019-10-09] MEDS: CLOPIDOGREL 75 MG TAB PO SCH (08:09)
[2019-10-09] MEDS: DULoxetine 30 MG CAP (CYMBALTA) PO SCH (08:09)
[2019-10-09] MEDS: predniSONE 1 MG TAB PO SCH (08:09)
[2019-10-09] MEDS: CALCIUM/VITAMIN D 500 MG TAB PO SCH (08:09)
[2019-10-09] MEDS: MULTIVITAMINS/MINERALS THERAP 1 TAB PO SCH (08:09)
[2019-10-09] MEDS: DOCUSATE SODIUM 100 MG CAP PO SCH ×2 (08:10→22:01)
[2019-10-09] MEDS: CARVedilol 6.25 MG TAB PO SCH ×2 (08:10→22:03)
[2019-10-09] MEDS: DIMETHICONE 2% OINTMENT(VANIPLY) 70GM TUBE TOP SCH ×2 (08:11→22:04)
[2019-10-09] MEDS: MIRALAX *UNIT DOSE* 17GM PACKET PO SCH ×2 (08:11→21:00)
[2019-10-09] MEDS: TIOTROPIUM INHALER/CAPSULE (SPIRIVA) INH SCH (08:20)
[2019-10-09] MEDS: MORPHINE 30 MG TAB **MSIR PO PRN ×2 (09:47→22:02)
--- NOTE | 2019-10-09 13:20 | IPN ---
DATE OF SERVICE: 10/09/2019 The patient is a 74-year-old male who is seen sitting in the bedside chair. The patient says he feels much better today. The patient did have a fall yesterday in the bathroom while going to have a bowel movement. The patient was supposed to be discharged yesterday to [facility]. However, he had not had a bowel movement in 6 days, so he was unable to go over to the retirement. The patient did have a bowel movement late in the evening yesterday, which was too late for him to be able to go to the retirement. He will be in the hospital until hopefully Friday, when he will be discharged. The patient says he is feeling well. He does not have any complaints. PHYSICAL EXAMINATION: Vital signs: Temperature 97.1, pulse 81, respiratory rate 18, blood pressure 117/58, pulse oximetry 94% on room air. General: The patient is alert and oriented. The patient was sitting in the bedside chair when we walked in. The patient was in no acute distress. HEENT: Was normocephalic, atraumatic with moist mucous membranes. Neck was supple with minimally elevated jugular venous distention (JVD). Lungs were clear to auscultation bilaterally. Cardiovascular: Was a regular rate and rhythm with no murmurs. Abdomen: Was soft and nontender. Extremities: There was no edema bilaterally. The patient's left arm edema has improved. Left AV fistula in the upper arm is functioning. LABORATORIES: C-reactive protein has improved to 4.19. ASSESSMENT AND PLAN: 1. End-stage renal disease. The patient is regularly dialyzed on a Friday, Friday, Friday schedule. He was dialyzed yesterday and was doing well today. The patient will be dialyzed again on Friday, hopefully after discharge, in the outpatient dialysis clinic. 2. Congestive heart failure. Volume status has improved. The patient is on a 1500 mL per day fluid restriction. The patient had 2500 mL of fluid removed yesterday during dialysis. 3. Left forearm cellulitis. His arm is improving, and he remains on antibiotics. His C-reactive protein continues to improve. 4. Anemia. His anemia is stable and does not require any urgent intervention. DISPOSITION: The patient is considered stable from a renal standpoint and can be discharged when he is able to.
[2019-10-09 13:51] VITALS: BP 113/54
--- NOTE | 2019-10-09 14:31 | IPNPDOC ---
Date Seen The patient was seen on 10/09/19. Progress Note SUBJECTIVE: Patient reported no complaints this morning. No acute events reported. OBJECTIVE PHYSICAL EXAMINATION: VITAL SIGNS: Please see below. General: slightly tremulous, Alert Eyes: Normal sclera, EOMI, BUTCH HENT: Atraumatic Cardiovascular: Normal rate, normal rhythm. Pulmonary: Clear to auscultation b/l, no wheezing GI: Soft, nontender, nondistended Skin: Warm and dry, multiple bruising through out, particularly in upper extremities. MKS: L. elbow swellling with evolving hematoma. Neuro: CN grossly intact. No focal deficits. Psych: oriented x 3 LABORATORY DATA, IMAGING STUDIES, MICROBIOLOGY: Please see below. DVT prophylaxis ordered?: HSQ ASSESSMENT AND PLAN: 1. AMS - resolved - Infectious vs. psychiatric - L. elbow/olecrenon bursitis and leukocytosis. - Patient and family also noted anxiety and patient unable to sleep for several days that could contribute to lethargy. 2. L. elbow olecranon bursitis/cellulitis - reportedly had improved but still bruised and swelling. c/w clindamycin. - Ortho had evaluated, offered aspiration but had decline at the time. Plan to complete antibiotic course and follow with ortho as outpatient. 3. ESRD - c/w HD per nephrology. 4. Anxiety - Psych consulted. Patient unable to sleep due to anxiety. 5. Restrictive lung disease - c/w albuterol, spiriva 6. HTN/HFpEF - c/w coreg 7. gout - c/w Febuxostat 8. chronic back pain - has spinal stimulator implant. - pain control. 9. OA with severe back, hip, and shoulder pain - On morphine, baclofen, cymbalta. - Follows with pain management as outpatient, re-evaluated here. - Recommended morphine 15 mg IR 1/2 tablet q4-6 hours. - Can try Tramadol if opiate use becomes a concern. 10. L. AV fistula bleeding at dialysis on 09/27/19 - Evaluated by vascular team. Elevate extremity. - bruising reportedly had improved. DISPOSITION: [facility] on Friday hopefully VS, I&O, 24H, Fishbone Vital Signs/I&O Vital Signs Date Time Temp Pulse Resp B/P (MAP) Pulse Ox O2 Delivery O2 Flow Rate FiO2 10/09/19 13:51 97.8 75 18 113/54 (73) 95 Room Air 10/08/19 22:10 2.0 I&O- Last 24 Hours up to 6 AM 10/09/19 06:00 Intake Total 1700 ml Output Total 2500 ml Balance -800 ml Laboratory Data 24H LABS Laboratory Tests 2 10/08/19 21:16: Bedside Glucose (Misc Panel) 103 10/09/19 06:01: Bedside Glucose (Misc Panel) 87 10/09/19 06:14: C-Reactive Protein, Quantitative 4.19H Microbiology Microbiology 10/04/19 Blood Culture - Final, Complete NO GROWTH AFTER 5 DAYS 10/04/19 Blood Culture - Final, Complete NO GROWTH AFTER 5 DAYS ALEIDA VALENTINE MD Oct 09, 2019 14:31
[2019-10-09 21:01] VITALS: BP 108/52
[2019-10-09] MEDS: ATORVASTATIN 20 MG TAB PO SCH (22:01)
[2019-10-09] MEDS: LACTOBACILLUS ACIDOPHILUS CAP (BACID) PO SCH (22:01)
[2019-10-10 05:48] VITALS: BP 138/56
[2019-10-10] MEDS: MORPHINE 30 MG TAB **MSIR PO PRN ×2 (05:55→16:10)
[2019-10-10] MEDS: CLINDAMYCIN 150 MG CAP PO SCH ×3 (05:58→21:37)
[2019-10-10] MEDS: TIOTROPIUM INHALER/CAPSULE (SPIRIVA) INH SCH (08:17)
[2019-10-10] MEDS: HEPARIN SOD (PORCINE) 5000 UNITS/ML VIAL SC SCH ×2 (09:00→21:29)
[2019-10-10] MEDS: CARVedilol 6.25 MG TAB PO SCH ×2 (09:00→21:31)
[2019-10-10] MEDS: DOCUSATE SODIUM 100 MG CAP PO SCH ×2 (09:00→21:30)
[2019-10-10] MEDS: FEBUXOSTAT 40 MG TABLET (ULORIC) PO SCH (09:00)
[2019-10-10] MEDS: DULoxetine 30 MG CAP (CYMBALTA) PO SCH (09:00)
[2019-10-10] MEDS: CALCIUM/VITAMIN D 500 MG TAB PO SCH (09:00)
[2019-10-10] MEDS: DIMETHICONE 2% OINTMENT(VANIPLY) 70GM TUBE TOP SCH ×2 (09:00→21:30)
[2019-10-10] MEDS: MULTIVITAMINS/MINERALS THERAP 1 TAB PO SCH (09:00)
[2019-10-10] MEDS: MIRALAX *UNIT DOSE* 17GM PACKET PO SCH ×2 (09:00→21:29)
[2019-10-10] MEDS: predniSONE 5 MG TAB PO SCH (09:00)
[2019-10-10] MEDS: CLOPIDOGREL 75 MG TAB PO SCH (09:00)
[2019-10-10] MEDS: predniSONE 1 MG TAB PO SCH (09:00)
[2019-10-10] MEDS: VITAMIN D 1,000 INTERNATIONAL UNITS TABLET PO SCH (09:00)
[2019-10-10] MEDS: ACETAMINOPHEN TAB 650MG DOSE (2X325MG) PO PRN (10:06)
[2019-10-10 14:00] VITALS: BP 106/44
--- NOTE | 2019-10-10 14:37 | IPNPDOC ---
Date Seen The patient was seen on 10/10/19. Progress Note SUBJECTIVE: Patient is comfortable this morning. States that he had been able to sleep better for the past few nights and feel better because of that. OBJECTIVE PHYSICAL EXAMINATION: VITAL SIGNS: Please see below. General: slightly tremulous, Alert Eyes: Normal sclera, EOMI, BUTCH HENT: Atraumatic Cardiovascular: Normal rate, normal rhythm. Pulmonary: Clear to auscultation b/l, no wheezing GI: Soft, nontender, nondistended Skin: Warm and dry, multiple bruising through out, particularly in upper extremities. MKS: mild L. elbow swellling with evolving hematoma. Neuro: CN grossly intact. No focal deficits. Psych: oriented x 3 LABORATORY DATA, IMAGING STUDIES, MICROBIOLOGY: Please see below. DVT prophylaxis ordered?: HSQ ASSESSMENT AND PLAN: 1. AMS - resolved - Infectious vs. psychiatric - L. elbow/olecrenon bursitis and leukocytosis. - Patient and family also noted anxiety and patient unable to sleep for several days that could contribute to lethargy. 2. L. elbow olecranon bursitis/cellulitis - reportedly had improved but still bruised and swelling. c/w clindamycin. - Ortho had evaluated, offered aspiration but had decline at the time. Plan to complete antibiotic course and follow with ortho as outpatient. 3. ESRD - c/w HD per nephrology. 4. Anxiety - Psych consulted. Patient unable to sleep due to anxiety. 5. Restrictive lung disease - c/w albuterol, spiriva 6. HTN/HFpEF - c/w coreg 7. gout - c/w Febuxostat 8. chronic back pain - has spinal stimulator implant. - pain control. 9. OA with severe back, hip, and shoulder pain - On morphine, baclofen, cymbalta. - Follows with pain management as outpatient, re-evaluated here. - Recommended morphine 15 mg IR 1/2 tablet q4-6 hours. - Can try Tramadol if opiate use becomes a concern. 10. L. AV fistula bleeding at dialysis on 09/27/19 - Evaluated by vascular team. Elevate extremity. - bruising reportedly had improved. DISPOSITION: [facility] Keep on Friday hopefully VS, I&O, 24H, Fishbone Vital Signs/I&O Vital Signs Date Time Temp Pulse Resp B/P (MAP) Pulse Ox O2 Delivery O2 Flow Rate FiO2 10/10/19 09:00 82 138/56 10/10/19 06:26 16 10/10/19 05:48 97.1 92 Room Air 10/08/19 22:10 2.0 I&O- Last 24 Hours up to 6 AM 10/10/19 06:00 Intake Total 1980 ml Balance 1980 ml Laboratory Data Microbiology Microbiology 10/04/19 Blood Culture - Final, Complete NO GROWTH AFTER 5 DAYS 10/04/19 Blood Culture - Final, Complete NO GROWTH AFTER 5 DAYS ALEIDA VALENTINE MD Oct 10, 2019 14:37
[2019-10-10] MEDS ORDERED: hydrOXYzine 25 MG TAB PO PRN (14:45)
[2019-10-10 19:45] VITALS: BP_SYST 118; BP_SYST 5; BP_DIAS 63
[2019-10-10] MEDS: ATORVASTATIN 20 MG TAB PO SCH (21:30)
[2019-10-10] MEDS: LACTOBACILLUS ACIDOPHILUS CAP (BACID) PO SCH (21:30)
[2019-10-11] MEDS: MORPHINE 30 MG TAB **MSIR PO PRN (04:45)
[2019-10-11 05:05] VITALS: BP 126/66
[2019-10-11] MEDS: MIRALAX *UNIT DOSE* 17GM PACKET PO SCH (05:57)
[2019-10-11] MEDS: VITAMIN D 1,000 INTERNATIONAL UNITS TABLET PO SCH (05:57)
[2019-10-11] MEDS: CLOPIDOGREL 75 MG TAB PO SCH (05:59)
[2019-10-11] MEDS: CLINDAMYCIN 150 MG CAP PO SCH (05:59)
[2019-10-11] MEDS: predniSONE 1 MG TAB PO SCH (06:00)
[2019-10-11] MEDS: predniSONE 5 MG TAB PO SCH (06:00)
[2019-10-11] MEDS: CALCITRIOL 0.25 MCG CAP (S0169) PO SCH (06:00)
[2019-10-11 06:01] VITALS: BP 126/66
[2019-10-11] MEDS: MULTIVITAMINS/MINERALS THERAP 1 TAB PO SCH (06:01)
[2019-10-11] MEDS: CARVedilol 6.25 MG TAB PO SCH (06:01)
[2019-10-11] MEDS: CALCIUM/VITAMIN D 500 MG TAB PO SCH (06:01)
[2019-10-11] MEDS: DULoxetine 30 MG CAP (CYMBALTA) PO SCH (06:01)
[2019-10-11] MEDS: HEPARIN SOD (PORCINE) 5000 UNITS/ML VIAL SC SCH (06:02)
[2019-10-11] MEDS: DOCUSATE SODIUM 100 MG CAP PO SCH (06:02)
[2019-10-11] MEDS: TIOTROPIUM INHALER/CAPSULE (SPIRIVA) INH SCH (08:12)
--- NOTE | 2019-10-11 19:19 | IPN ---
DATE: 10/10/2019 Mr. Mckeon is seen this morning on his bedside. He is sitting in the chair at the time of my visit and is in good spirits. He is feeling much better and his left forearm swelling, pain and tenderness have improved. He still has some swelling and tenderness on his left elbow area. He denies any nausea, vomiting, dyspnea or chest pain. PHYSICAL EXAMINATION: Temperature 97.9 degrees Fahrenheit, heart rate 70 per minute and respiratory rate 18 per minute. Blood pressure 106/44 mmHg and oxygen saturation 94% on room air. His head is atraumatic. Neck is supple and jugular venous distention (JVD) is not visible sitting upright. Heart sounds are irregular in rhythm. Lungs sound clear to auscultation. Abdomen is soft and nontender and bowel sounds are normal. Extremities have no cyanosis or clubbing. Left forearm tenderness and swelling has improved significantly. Left upper arm arteriovenous (AV) fistula is patent. Neurologically, he is awake, alert and oriented times three. The patient did not have any new laboratories done today. PROBLEMS: 1. End-stage renal disease. The patient was dialyzed on Friday and next dialysis will be due tomorrow. 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 There is no emergent need for dialysis today. 2. Congestive heart failure. His volume status has improved significantly and is well-compensated now. He should continue to follow his fluid restriction of 1500 mL per day. 3. Anemia. His anemia has been stable and there is no complete blood count (CBC) done today. His anemia is being managed with dialysis. 4. Constipation. He is now having regular bowel movements and constipation has resolved. The patient is feeling much better now. DISPOSITION: From a renal standpoint, the patient can be discharged tomorrow morning as planned. He will followup in outpatient dialysis clinic.
== END 2019-10-11 10:25 | DRG 602 ==
LOC: M ED 23:45 → EDSEX 23:45 → EDBD 23:45 → M ED INP 10-04 01:43 → M PCU 10-04 02:50 → M MS5PR 10-07 10:07
PROVIDERS: ADMIT Internal Medicine; ATTEND Student in an Organized Health Care Education/Training Program
PROC: 5A1D70Z Performance of Urinary Filtration, Intermittent, Less than 6 Hours Per Day (ICD-10-PCS; principal; 2019-10-04)
DX: L03.114 Cellulitis of left upper limb (principal); N18.6 End stage renal disease; I50.32 Chronic diastolic (congestive) heart failure; I13.2 Hypertensive heart and chronic kidney disease with heart failure and with stage 5 chronic kidney disease, or end stage renal disease; E87.1 Hypo-osmolality and hyponatremia; R41.82 Altered mental status, unspecified; R53.83 Other fatigue; M70.22 Olecranon bursitis, left elbow; M54.2 Cervicalgia; D63.1 Anemia in chronic kidney disease; J98.4 Other disorders of lung; I25.10 Atherosclerotic heart disease of native coronary artery without angina pectoris; F41.8 Other specified anxiety disorders; M10.9 Gout, unspecified; E66.9 Obesity, unspecified; I34.1 Nonrheumatic mitral (valve) prolapse; I35.2 Nonrheumatic aortic (valve) stenosis with insufficiency; I27.20 Pulmonary hypertension, unspecified; E11.22 Type 2 diabetes mellitus with diabetic chronic kidney disease; J44.9 Chronic obstructive pulmonary disease, unspecified; G47.33 Obstructive sleep apnea (adult) (pediatric); Z79.2 Long term (current) use of antibiotics; Z68.35 Body mass index [BMI] 35.0-35.9, adult; Z95.1 Presence of aortocoronary bypass graft; Z87.891 Personal history of nicotine dependence; Z88.0 Allergy status to penicillin; Z88.1 Allergy status to other antibiotic agents; Z96.9 Presence of functional implant, unspecified; Z88.6 Allergy status to analgesic agent; Z79.899 Other long term (current) drug therapy; Z79.02 Long term (current) use of antithrombotics/antiplatelets; Z79.52 Long term (current) use of systemic steroids; Z99.2 Dependence on renal dialysis; Z95.2 Presence of prosthetic heart valve; Z85.51 Personal history of malignant neoplasm of bladder; F41.0 Panic disorder [episodic paroxysmal anxiety]; K59.00 Constipation, unspecified

== ENCOUNTER → 2019-10-15 | Outpatient (REF) ==
[~2019-10-15] MED LIST changes: -FEBUXOSTAT 40 MG TABLET (ULORIC) PO SCH
[2019-10-15 12:24] LABS: HEMOGLOBIN 9.7 g/dl (13.5-17.5); MEAN CORPUSCULAR HGB CONC 31.3 g/dl (32.0-36.5); MEAN CORPUSCULAR VOLUME 105.4 fl (80.0-96.0); PLATELET COUNT, AUTOMATED 197 10^3/uL (150-450); RED BLOOD COUNT 2.94 10^6/uL (4.30-6.10); WHITE BLOOD COUNT 12.3 10^3/uL (4.0-10.0)
== END ==
LOC: SKLAB4 07:27
PROVIDERS: ATTEND Internal Medicine
DX: M70.22 Olecranon bursitis, left elbow (principal)

== ENCOUNTER → 2019-10-18 | Outpatient (REF) | payer MEDICARE, OTHER ==
[2019-10-18 08:47] LABS: HEMATOCRIT 30.1 % (42.0-52.0); HEMOGLOBIN 9.6 g/dl (13.5-17.5); MEAN CORPUSCULAR HEMOGLOBIN 32.5 pg (27.0-33.0); MEAN CORPUSCULAR HGB CONC 31.9 g/dl (32.0-36.5); PLATELET COUNT, AUTOMATED 231 10^3/uL (150-450); RED BLOOD COUNT 2.95 10^6/uL (4.30-6.10)
[2019-10-18 09:16] LABS: ERYTHROCYTE SEDIMENTATION RATE 75 mm/hr (0-20)
== END ==
LOC: SKLAB4 08:13
PROVIDERS: ATTEND Internal Medicine
DX: M70.22 Olecranon bursitis, left elbow (principal); Z79.899 Other long term (current) drug therapy

== ENCOUNTER 2019-11-07 13:26 | Inpatient (IN) | payer MEDICARE, OTHER ==
[~2019-11-07] VITALS: Ht 167.6 cm; Wt 94.5 kg
[2019-11-07] MEDS ORDERED: NS 1,000 ML IV SCH (14:11)
[2019-11-07] MEDS ORDERED: PRED5TA PO (14:36)
[2019-11-07] MEDS ORDERED: LIDO2.5C15 TOP (14:36)
[2019-11-07] MEDS ORDERED: CLIN300C5 PO (14:36)
[2019-11-07 14:53] LABS: BASO % 0.2 % (0.0-1.0); EOS % 0.2 % (0.0-3.0); HEMATOCRIT 28.5 % (42.0-52.0); LYMPH % 7.9 % (24.0-44.0); MEAN CORPUSCULAR HEMOGLOBIN 32.6 pg (27.0-33.0); MEAN CORPUSCULAR HGB CONC 31.6 g/dl (32.0-36.5); MEAN CORPUSCULAR VOLUME 103.3 fl (80.0-96.0); MONO # 0.9 10^3/uL (0.0-0.8); MONO % 6.8 % (0.0-5.0); NEUTROPHILS # 10.5 10^3/uL (1.5-8.5); NEUTROPHILS % 83.6 % (36.0-66.0); PLATELET COUNT, AUTOMATED 208 10^3/uL (150-450); RED BLOOD COUNT 2.76 10^6/uL (4.30-6.10); WHITE BLOOD COUNT 12.6 10^3/uL (4.0-10.0)
--- NOTE | 2019-11-07 15:01 | REP ---
CT BRAIN WITHOUT IV CONTRAST: CT brain performed without IV contrast. There is mild to moderate atrophy. There is no midline shift of mass effect. Puckett-white differentiation is well maintained. There is no acute hemorrhage or extra-axial fluid collection. No skull fracture is seen. There are vascular calcifications in the carotid siphons. IMPRESSION: Mild to moderate atrophy and vascular calcifications in the carotid siphons. No acute intracranial hemorrhage, midline shift, or mass effect. Electronically Signed by Toni Puckett MD 11/08/2019 05:53 P
[2019-11-07] MEDS ORDERED: MORPHINE 2 MG/ML 1ML VIAL (J2270) IV ONE ×2 (15:15→18:00)
[2019-11-07 15:21] LABS: ACETAMINOPHEN LEVEL < 2.0 UG/ML (10.0-30.0); ALBUMIN 3.6 GM/DL (3.2-5.2); ALT/SGPT 18 U/L (12-78); BILIRUBIN,DIRECT 0.2 MG/DL (0.0-0.2); BILIRUBIN,TOTAL 0.4 MG/DL (0.2-1.0); BLOOD UREA NITROGEN 60 MG/DL (7-18); CALCIUM LEVEL 8.8 MG/DL (8.8-10.2); CARBON DIOXIDE LEVEL 32 MEQ/L (21-32); CHLORIDE LEVEL 98 MEQ/L (98-107); CK-MB VALUE MASS 2.4 NG/ML (<3.6); CPK CREATINE PHOSPHOKINASE 67 U/L (39-308); CREATININE FOR GFR 4.63 MG/DL (0.70-1.30); ETHYL ALCOHOL (ETHANOL) < 0.003 % (0.000-0.010); GLOMERULAR FILTRATION RATE 13.2 (>42); GLUCOSE, FASTING 111 MG/DL (70-100); MB/CK RELATIVE INDEX 3.58 (< OR =4); POTASSIUM SERUM 3.2 MEQ/L (3.5-5.1); SALICYLATE LEVEL < 1.7 MG/DL (5.0-30.0); SODIUM LEVEL 139 MEQ/L (136-145); THYROID STIMULATING HORMONE 0.498 uIU/ML (0.358-3.740); TOTAL PROTEIN 6.8 GM/DL (6.4-8.2); TROPONIN I 0.02 NG/ML (< 0.10)
--- NOTE | 2019-11-07 16:32 | HPEPDOC ---
General Date of Admission Date of Service: Nov 07, 2019 Chief Complaint confusion History of Present Illness 74 year old male presents from home with confusion. at bedside assisting with history. stating patient recently fell 3 days ago, landed on his L shoulder and L hip. Has had increasing pain and difficulty ambulating since then, with inability to sleep the last three nights because of this. Went to see his orthopedist on Friday, saw Dr. Nagy, had X rays of his shoulder done which states were negative, had a cortisone injection into the L shoulder. Today he became increasingly confused and she decided to bring him to the hospital for evaluation as "I just wasn't able to manage him at home". Presents with stable vitals/afebrile, CT head negative, labs with normal wbc count, negative CXR. Tx with morphine 2gm IV x 1 in ED, patient is asleep, arousable but unable to provide any history. Home Medications Scheduled Atorvastatin Calcium (Atorvastatin Calcium) 20 Mg Tablet, 20 MG PO QHS, (Reported) Ca/D3/Mag Ox/Zinc/[employer]/[place]/Bor (Calcium 600-D3 Plus Caplet) 1 Each Tablet, 1 TAB PO QHS, (Reported) Calcitriol (Calcitriol) 0.25 Mcg Capsule, 0.25 MCG PO 3XW, (Reported) RECEIVES AT DIALYSIS ON FRIDAY, FRIDAY AND FRIDAY Carvedilol (Carvedilol) 6.25 Mg Tablet, 6.25 MG PO BID, (Reported) Clindamycin HCl (Clindamycin HCl) 300 Mg Capsule, 600 MG PO Q8H, (Reported) 11/07/2019 LAST DAY OF ANTIBIOTIC COURSE Clopidogrel Bisulfate (Clopidogrel) 75 Mg Tablet, 75 MG PO DAILY, (Reported) Docusate Sodium (Docusate Sodium) 100 Mg Capsule, 100 MG PO BID, (Reported) Duloxetine Hcl (Cymbalta) 60 Mg Capsule.dr, 60 MG PO QHS, (Reported) Ergocalciferol (Vitamin D2) (Vitamin D2) 2,000 Unit Tablet, 4,000 UNITS PO DAILY, (Reported) Febuxostat (Uloric) 80 Mg Tablet, 80 MG PO Q2D, (Reported) AT BEDTIME Lactobacillus Acidophilus (Probiotic) 1 Each Capsule, 1 CAP PO QHS, (Reported) Lidocaine/Prilocaine (Lidocaine-Prilocaine Cream) 2.5%/2.5% Cream..g., 1 APPLIC TOP 3XW, (Reported) APPLY TO PORT SITE BEFORE DIALYSIS DAYS. COVER WITH SARAN WRAP Multivitamins (Thera M Plus Tablet) 1 Each Tablet, 1 TAB PO DAILY, (Reported) Naldemedine Tosylate (Symproic) 0.2 Mg Tablet, 0.2 MG PO DAILY, (Reported) Prednisone (Prednisone) 5 Mg Tablet, 5 MG PO DAILY, (Reported) Tiotropium [place] (Spiriva Respimat) 4 Gm Mist.inhal, 2 PUFFS INH DAILY, (Reported) Ubidecarenone (Co Q-10) 200 Mg Capsule, 200 MG PO BID, (Reported) Scheduled PRN Albuterol Sulf (Albuterol Sulfate) 2.5 Mg/3 Ml Vial.neb, 2.5 MG INH Q2H PRN for SOB/WHEEZING, (Reported) Albuterol Sulfate (Proair Hfa) 8.5 Gm Hfa.aer.ad, 2 PUFF INH QID PRN for SHORTNESS OF BREATH, (Reported) Alprazolam (Alprazolam) 0.25 Mg Tablet, 0.25 MG PO TID PRN for ANXIETY, (Reported) Baclofen (Baclofen) 10 Mg Tablet, 10 MG PO BID PRN for MUSCLE SPASMS, (Reported) Benzonatate (Benzonatate) 100 Mg Capsule, 100 MG PO TID PRN for COUGH, (Reported) Glycerin (Adult Glycerin) 1 Each Supp.rect, 1 EA [place] DAILY PRN for CONSTIPATION, (Reported) Hydroxyzine HCl (Hydroxyzine HCl) 25 Mg Tablet, 25 MG PO TID PRN for ITCHING, (Reported) Morphine Sulfate (Morphine Sulfate) 15 Mg Tablet, 15 MG PO Q6H PRN for PAIN, (Reported) Allergies Coded Allergies: aspirin (Verified Allergy, Severe, LIPS SWELL, 03/29/19) Penicillins (Verified Allergy, Intermediate, RASH, 04/15/19) ampicillin (Verified Allergy, Intermediate, HIVES, 03/17/19) ceftriaxone (Verified Allergy, Unknown, UNKNOWN REACTION, 04/09/19) Past Medical History Medical History ESRD on dialysis Friday, Friday and Friday via left arm AV fistula and Po rt-A-Cath History of vascular steal syndrome Anemia of chronic disease complicated by anemia Chronic Diastolic dysfunction. Mitral valve prosthesis. Aortic stenosis. Mild pulmonary hypertension. History of zir-pweicxa-bkdccudse type 2 diabetes mellitus (no longer on medications) CAD status post quadruple bypass. History of bladder cancer twice (is currently in remission). Gout. Restrictive lung disease. ABELARDO/OHS (not compliant with BiPAP) Chronic back pain with spinal stimulator implant. Anxiety. History of right knee surgery. History of elbow surgery Social History * Smoker: Denies Alcohol: Denies Drugs: denies A-FIB/CHADSVASC A-FIB History Current/History of A-Fib/PAF?: No Current PO Anticoag Therapy: No Review of Systems Other systems unable to perform Physical Examination General Exam: Positive: Other (lethargic, somnolent but arousable) Extremity Exam: Positive: Other (L elbow with no visible erythema/tenderness) Skin Exam: Positive: Nl turgor and temperature, Rash, Breakdown, Lesion, Pruritus, Other skin issue (scatterred areas of ecchymosis) Vital Signs Vital Signs Date Time Temp Pulse Resp B/P (MAP) Pulse Ox O2 Delivery O2 Flow Rate FiO2 11/07/19 15:17 18 11/07/19 15:16 89 100/62 (75) 94 Room Air 11/07/19 13:27 98.0 Laboratory Data Labs 24H Laboratory Tests 2 11/07/19 14:39: Immature Granulocyte % (Auto) 1.3, Neutrophils (%) (Auto) 83.6H, Lymphocytes (%) (Auto) 7.9L, Monocytes (%) (Auto) 6.8H, Eosinophils (%) (Auto) 0.2, Basophils (%) (Auto) 0.2, Neutrophils # (Auto) 10.5H, Lymphocytes # (Auto) 1.0L, Monocytes # (Auto) 0.9H, Eosinophils # (Auto) 0.0, Basophils # (Auto) 0.0, Nucleated Red Blood Cells % (auto) 0.0, Anion Gap 9, Glomerular Filtration Rate 13.2L, Lactic Acid Level 1.0, Calcium Level 8.8, Total Bilirubin 0.4, Direct Bilirubin 0.2, Aspartate Amino Transf (AST/SGOT) 18, Alanine Aminotransferase (ALT/SGPT) 18, Alkaline Phosphatase 136H, Ammonia 18, Total Creatine Kinase 67, Creatine Kinase MB 2.4, Creatine Kinase MB Relative Index 3.58, Troponin I 0.02, Total Protein 6.8, Albumin 3.6, Albumin/Globulin Ratio 1.13, Thyroid Stimulating Hormone (TSH) 0.498, Salicylates Level < 1.7L, Acetaminophen Level < 2.0L, Ethyl Alcohol Level < 0.003 CBC/BMP Laboratory Tests 11/07/19 14:39 Microbiology Microbiology 11/07/19 Blood Culture, Received Pending 11/07/19 Blood Culture, Received Pending Assessment/Plan 1. encephalopathy - suspect secondary to sleep deprivation secondary to intractable pain. - normal wbc count, afebrile, negative CXR, unable to get UA secondary to #3. - patient received 2mg IV morphine in ED. - will continue patient on outpatient dose of morphine, avoid additional sedatives. - consult placed to orthopedics Dr. Nagy for further recommendations, patient has been following up with Dr. Lauren as outpatient earlier this week and saw Dr. Nayg on Friday as per . Received steroid injection of L shoulder. 2. L elbow olecranon bursitis - patient completed 10 days of clindamycin, last dose today. - monitor. 3. ESRD on HD - f/u with nephrology regarding HD orders. 4. HTN - coreg. 5. Restrictive lung disease - continue albuterol, spiriva. DVT prophylaxis with SCDs Plan / VTE VTE Prophylaxis Ordered?: Yes ТАТЬЯНА GALLAGHER MD Nov 07, 2019 15:53
[2019-11-07 17:05] VITALS: BP 150/70
[2019-11-07] MEDS ORDERED: ALBUTEROL SULFATE 2.5 MG/0.5 ML INH NEB SOLN INH PRN (17:15)
[2019-11-07] MEDS ORDERED: ALBUTEROL 90 MCG/ACT 8GM HFA INHALER INH PRN (17:15)
[2019-11-07] MEDS ORDERED: GLYCERIN ADULT SUPP PR PRN (17:15)
[2019-11-07] MEDS ORDERED: MORPHINE 30 MG TAB **MSIR PO PRN (17:15)
[2019-11-07] MEDS ORDERED: BACLOFEN 10 MG TAB PO PRN (17:15)
[2019-11-07] MEDS ORDERED: hydrOXYzine 25 MG TAB PO PRN (17:15)
[2019-11-07] MEDS ORDERED: BENZONATATE 100 MG CAP PO PRN (17:15)
[2019-11-07] MEDS: DULoxetine 30 MG CAP (CYMBALTA) PO SCH (20:37)
[2019-11-07] MEDS: DOCUSATE SODIUM 100 MG CAP PO SCH (20:38)
[2019-11-07] MEDS: CARVedilol 6.25 MG TAB PO SCH (20:38)
[2019-11-07] MEDS: ATORVASTATIN 20 MG TAB PO SCH (20:38)
--- NOTE | 2019-11-07 20:45 | ECGEPIP ---
[facility] - ED Test Date: 2019-11-07 Pat Name: VEDA BARRERA Department: Room: - Gender: Male Manager Intensive Care Unit: : [id number] Requested By: ERIK RIVERA Order Number: [id number] Reading MD: Marie Soriano Measurements Intervals [place] Rate: 81 P: 27 MO: 200 QRS: -8 QRSD: 178 T: 6 QT: 458 QTc: 534 Interpretive Statements SINUS RHYTHM WITH SINUS ARRHYTHMIA POSSIBLE LEFT ATRIAL ENLARGEMENT RIGHT BUNDLE BRANCH BLOCK SIMILAR 10/04/19 Electronically Signed on 11-07-2019 20:44:50 EST by Marie Soriano
[2019-11-07 22:00] VITALS: BP 146/79
[2019-11-08] VITALS (7 sets, daily range): BP systolic 120–166; BP diastolic 74–88; O2SAT 92–96
[2019-11-08] MEDS: MORPHINE 2 MG/ML 1ML VIAL (J2270) IV PRN ×2 (00:02→06:53)
[2019-11-08 04:25] LABS: AMPHETAMINES LEVEL URINE NEGATIVE (NEGATIVE); BARBITURATES URINE NEGATIVE (NEGATIVE); BENZODIAZEPINES URINE NEGATIVE (NEGATIVE); CANNABINOIDS URINE NEGATIVE (NEGATIVE); COCAINE METABOLITE URINE NEGATIVE (NEGATIVE); METHADONE URINE NEGATIVE (NEGATIVE); OPIATES URINE POSITIVE (NEGATIVE); PHENCYCLIDINE URINE NEGATIVE (NEGATIVE)
[2019-11-08 06:46] LABS: ALBUMIN 3.3 GM/DL (3.2-5.2); BILIRUBIN,TOTAL 0.4 MG/DL (0.2-1.0); CALCIUM LEVEL 8.7 MG/DL (8.8-10.2); CREATININE FOR GFR 4.6 MG/DL (0.70-1.30); GLOMERULAR FILTRATION RATE 13.3 (>42); POTASSIUM SERUM 3.1 MEQ/L (3.5-5.1); TOTAL PROTEIN 6.7 GM/DL (6.4-8.2)
[2019-11-08] MEDS: MULTIVITAMINS/MINERALS THERAP 1 TAB PO SCH (06:50)
[2019-11-08] MEDS: CLOPIDOGREL 75 MG TAB PO SCH (06:50)
[2019-11-08] MEDS: VITAMIN D 1,000 INTERNATIONAL UNITS TABLET PO SCH (06:50)
[2019-11-08] MEDS: predniSONE 5 MG TAB PO SCH (06:51)
[2019-11-08] MEDS: CARVedilol 6.25 MG TAB PO SCH ×2 (06:52→20:37)
[2019-11-08] MEDS: DOCUSATE SODIUM 100 MG CAP PO SCH ×2 (06:52→20:36)
--- NOTE | 2019-11-08 07:39 | REP ---
PORTABLE CHEST: AP portable view of the chest are performed and compared to prior study of 10/04/2019. There is cardiomegaly. There is vascular congestion unchanged. Increased interstitial markings are also unchanged since the prior study. No consolidating infiltrate is seen. Right central venous catheter is seen with the tip in the junction of the superior vena cava and right atrium. Multiple sternal wires and mediastinal clips are present. Dorsal column stimulator leads are present in the midline. IMPRESSION: Stable exam. Electronically Signed by Toni Puckett MD 11/08/2019 06:03 P
--- NOTE | 2019-11-08 10:09 | IPNPDOC ---
Subjective Date Seen The patient was seen on 11/08/19. Subjective Chief Complaint/HPI Seen and examined at bedside, awake but still confused to place and time. Agitated overnight. General: Reports: Normal Appetite; Denies: Chills, Night Sweats, Fatigue, Malaise Constitutional: Denies: Chills, Fever, Night Sweats Eyes: Denies: Pain, Vision change ENT: Denies: Head Aches, Ear Pain, Dysphagia Skin: Denies: Rash, Lesions, Breakdown Pulmonary: Denies: Dyspnea, Cough Cardiovascular: Denies: Chest Pain, Palpitations, Orthopnea, Paroxysmal Noc. Dyspnea, Lt Headedness Gastrointestinal: Denies: Nausea, Vomiting, Abdominal Pain, Diarrhea, Constipation Genitourinary: Denies: Dysuria, Frequency, Incontinence, Retention Hematologic: Denies: Bruising, Bleeding Excessively Musculoskeletal: Denies: Neck Pain, Back Pain, Joint Pain, Muscle Pain, Spasms Neurological: Denies: Weakness, Numbness, Change in speech, Confusion Psych: Reports: Mood Normal; Denies: Depression, Memory Issues Objective Physical Examination General Exam: Positive: Other (awake but confused to person/place) Eye Exam: Positive: PERRLA, Conjunctiva & lids normal, EOMI; Negative: Sclera icteric ENT Exam: Positive: Atraumatic, Mucous membr. moist/pink, Pharynx Normal Neck Exam: Positive: Supple; Negative: JVD, thyromegaly Chest Exam: Positive: Clear to auscultation, Normal air movement Heart Exam: Positive: Rate Normal, Regular Rhythm, Normal S1, Normal S2; Negative: Murmurs, Rubs Telemetry: Positive: No significant arrhythmia Abdomen Exam: Positive: Normal bowel sounds, Soft; Negative: Tenderness, Hepatospenomegaly Male Exam: Positive: Normal Genital Exam Extremity Exam: Positive: Other (L elbow with no visible erythema/tenderness) Skin Exam: Positive: Nl turgor and temperature, Rash, Breakdown, Lesion, Pruritus, Other skin issue (scatterred areas of ecchymosis) Neuro Exam: Positive: Normal Gait, Normal Speech, Cranial Nerves 3-12 NL, Reflexes 2+, Other (awake, oriented x 2, unable to assess ambulation) Psych Exam: Positive: Other (agitated at times) Assessment /Plan Assessment 1. encephalopathy - awake but with episodes of confusion, oriented to person only. - suspect secondary to sleep deprivation secondary to intractable pain, is also on morphine - normal wbc count, afebrile, negative CXR, unable to get UA secondary to #3. - patient received 2mg IV morphine in ED. - will continue patient on outpatient dose of morphine, avoid additional sedatives. - consult placed to orthopedics for further recommendations, patient has been following up with Dr. Lauren as outpatient earlier this week and saw Dr. Nagy on Friday as per . Received steroid injection of L shoulder. - X ray of L shoulder possible tear of supraspinatus tendon, hip negative, f/u ortho recommendations. 2. L elbow olecranon bursitis - patient completed 10 days of clindamycin, last dose today. - monitor. 3. ESRD on HD - f/u with nephrology regarding HD orders. - Renal Dr. Hope consulted for same. 4. HTN - coreg. 5. Restrictive lung disease - continue albuterol, spiriva. DVT prophylaxis with SCDs Plan/VTE VTE Prophylaxis Ordered?: Yes VS, I&O, 24H, Fishbone Vital Signs/I&O Vital Signs Date Time Temp Pulse Resp B/P (MAP) Pulse Ox O2 Delivery O2 Flow Rate FiO2 11/08/19 07:31 92 Room Air 2.0 11/08/19 07:05 19 11/08/19 06:52 93 149/88 11/08/19 06:00 98.1 I&O- Last 24 Hours up to 6 AM 11/08/19 05:59 Intake Total 0 ml Balance 0 ml Laboratory Data 24H LABS Laboratory Tests 2 11/07/19 14:39: Immature Granulocyte % (Auto) 1.3, Neutrophils (%) (Auto) 83.6H, Lymphocytes (%) (Auto) 7.9L, Monocytes (%) (Auto) 6.8H, Eosinophils (%) (Auto) 0.2, Basophils (%) (Auto) 0.2, Neutrophils # (Auto) 10.5H, Lymphocytes # (Auto) 1.0L, Monocytes # (Auto) 0.9H, Eosinophils # (Auto) 0.0, Basophils # (Auto) 0.0, Nucleated Red Blood Cells % (auto) 0.0, Anion Gap 9, Glomerular Filtration Rate 13.2L, Lactic Acid Level 1.0, Calcium Level 8.8, Total Bilirubin 0.4, Direct Bilirubin 0.2, Aspartate Amino Transf (AST/SGOT) 18, Alanine Aminotransferase (ALT/SGPT) 18, Alkaline Phosphatase 136H, Ammonia 18, Total Creatine Kinase 67, Creatine Kinase MB 2.4, Creatine Kinase MB Relative Index 3.58, Troponin I 0.02, Total Protein 6.8, Albumin 3.6, Albumin/Globulin Ratio 1.13, Thyroid Stimulating Hormone (TSH) 0.498, Salicylates Level < 1.7L, Acetaminophen Level < 2.0L, Ethyl Alcohol Level < 0.003 11/08/19 03:45: Urine Color SOM, Urine Appearance HAZY, Urine pH 5.0, Urine Specific [place] 1.019, Urine Protein NEGATIVE, Urine Glucose (UA) NEGATIVE, Urine Ketones NEGATIVE, Urine Blood NEGATIVE, Urine Nitrite NEGATIVE, Urine Bilirubin NEGATIVE, Urine Urobilinogen 0.2, Urine Leukocyte Esterase NEGATIVE, Urine WBC (Auto) 3, Urine RBC (Auto) 1, Urine Hyaline Casts (Auto) 28, Urine Bacteria (Auto) NEGATIVE, Urine Squamous Epithelial Cells 0, Urine Sperm (Auto) , Urine Opiates Screen POSITIVEH, Urine Methadone Screen NEGATIVE, Urine Barbiturates Screen NEGATIVE, Urine Phencyclidine Screen NEGATIVE, Urine Amphetamines Screen NEGATIVE, Urine Benzodiazepines Screen NEGATIVE, Urine Cocaine Metabolite Screen NEGATIVE, Urine Cannabinoids Screen NEGATIVE 11/08/19 05:46: Anion Gap 9, Glomerular Filtration Rate 13.3L, Calcium Level 8.7L, Total Bilirubin 0.4, Aspartate Amino Transf (AST/SGOT) 18, Alanine Aminotransferase (ALT/SGPT) 16, Alkaline Phosphatase 133H, Total Protein 6.7, Albumin 3.3, Albumin/Globulin Ratio 0.97L CBC/BMP Laboratory Tests 11/07/19 14:39 11/08/19 05:46 Microbiology Microbiology 11/07/19 Blood Culture, Received Pending 11/07/19 Blood Culture, Received Pending ТАТЬЯНА GALLAGHER MD Nov 08, 2019 10:09
[2019-11-08] MEDS ORDERED: POTASSIUM CHLORIDE 10 MEQ SR TABLET PO ONE ×2 (10:15→12:15)
[2019-11-08] MEDS ORDERED: PILL CUTTER 1 EACH XX PRN (10:15)
[2019-11-08] MEDS ORDERED: KCL 10MEQ/100ML SWI (KRUN) 10 MEQ in IV 1 EA IV SCH (11:00)
--- NOTE | 2019-11-08 13:45 | REP ---
LEFT HIP, TWO VIEWS: Two views of left hip performed. No fracture or dislocation is seen. There is moderate joint space narrowing, subchondral sclerosis, and mild spurring at the hip joint compatible with moderate arthritic changes. Diffuse vascular calcifications are present in the medial thigh. IMPRESSION: Moderate arthritic changes. Electronically Signed by Toni Puckett MD 11/08/2019 06:06 P
--- NOTE | 2019-11-08 13:46 | REP ---
LEFT SHOULDER, THREE VIEWS: Three views of left shoulder are performed. No acute fracture or dislocation is seen. Humeral head appears somewhat high riding, suggesting a possible tear of the supraspinatus tendon. No significant hypertrophic spurring is seen. IMPRESSION: Humeral head is somewhat high riding, indicating a possible tear of the supraspinatus tendon. Electronically Signed by Toni Puckett MD 11/08/2019 06:06 P
[2019-11-08] MEDS: MORPHINE 30 MG TAB **MSIR PO PRN (14:03)
--- NOTE | 2019-11-08 18:35 | CR ---
DATE OF CONSULTATION: 11/08/2018 CONSULTATION REPORT FOR: Dr. Funes REASON FOR CONSULTATION: Left hip pain, left shoulder pain, and followup for a left olecranon bursitis. HISTORY: This is a 74-year-old gentleman who has seen multiple orthopedists in the past month or two including Dr. Cooley for olecranon bursitis, Dr. Lauren for olecranon bursitis and left shoulder and left hip pain approximately two weeks ago, and then Dr. Nagy about three days or so ago. At which time, he received a subacromial injection. The patient is a very poor historian. He is accompanied by his daughter and I spoke with the over the phone. He was admitted with confusion yesterday and with, according to the daughter, the fact that his just was not able to manage him at home. He presented afebrile. He had a head CT and chest x-ray. Main complaint seems to be the left hip that is according to his who says that an intra-articular injection was going to be set up for some time in about a week and a half or so, but she was not sure he was going to be home by then and was not going to necessarily be able to get him back and forth. He has also had what appears to be a history of a right hip intra-articular injection over a year ago and a right shoulder intra-articular injection I believe sometime in the past few months, but again the history is very difficult to obtain. The was not aware of the hip injection but it looks like there is a record of it in our office notes. His past medical history is notable for end-stage renal disease, vascular disease, anemia of chronic disease, chronic diastolic dysfunction, mitral valve prosthesis, aortic stenosis, pulmonary hypertension, non-insulin dependent diabetes, coronary artery disease, bladder cancer, gout, restrictive lung disease, obstructive sleep apnea (ABELARDO), chronic back pain, anxiety, history of right knee and elbow surgery on an unknown side. He also has a history of olecranon bursitis which has been treated by clindamycin for the left side over the past several days and that was felt to be largely resolved. He finished his last dose last night according to his . MEDICATIONS: Include atorvastatin, calcium, calcitriol, carvedilol, clindamycin, clopidogrel, Colace, Cymbalta, vitamin D2, Uloric, probiotic, lidocaine, multivitamin, Symproic, prednisone, Spiriva, CoQ10. As-needed medications include albuterol, alprazolam, baclofen, benzonatate glycerin, hydroxyzine, and morphine. ALLERGIES: Include ASPIRIN, PENICILLIN, AMPICILLIN, CEFTRIAXONE. SOCIAL HISTORY: He reports a previous history of smoker but denies alcohol and smoking now. PHYSICAL EXAMINATION: Difficult as he is seated at the bedside and not very mobile. He does not appear to be in any acute distress. He has a temperature of 96.7, pulse 87, respirations 20, pulse oximetry 92% most recently recorded. He is somewhat lethargic but is able to answer questions but inconsistently. He is not really sure where his pain is coming from right now. Recently, he has complained of a significant left groin pain and that is what the office notes indicated and that is what his indicated. His left shoulder has evidence of a previous injection. He can forward elevate almost fully with that side without significant irritation. The right shoulder he can forward elevate to about the plane of the shoulder with some moderate irritation. The right hip does not seem to be irritable. The left hip has limited internal and external rotation through about a 15-20 degrees arc and this is quite painful. His abdomen appears to be benign. He has nonlabored breathing. Regular pulse rate. His left elbow has good full range of motion. There is no evidence of fluctuance over the elbow and no significant evidence of redness or erythema. I do not see any residual olecranon bursitis that is infected. REVIEW OF SYSTEMS: Otherwise documented in the chart. CONSTITUTIONAL: Denies fevers, malaise, weight changes. EYES: No noted change. CARDIOVASCULAR: There is no reported history of angina or chest pain per the record. RESPIRATORY: Some cough but otherwise stable. GASTROINTESTINAL (GI): He has not reported any abdominal pain, loss of appetite per the chart. MUSCULOSKELETAL: As noted above. SKIN: Reports some rashes and easy bruising. NEUROLOGIC: Denies any seizure or change in speech, although he has been fairly lethargic on-and-off since his admission. IMAGING STUDIES: Radiographs were reviewed of his left hip. He also had an AP pelvis and left hip x-ray done a few weeks ago here and a left shoulder that was done just today. His left shoulder demonstrates high riding humeral head consistent with rotator cuff arthropathy. His left hip demonstrates moderate to advanced osteoarthritis. On previous films, his right hip showed lesser arthritis. IMPRESSION: A patient with bilateral shoulder pain, left hip pain, olecranon bursitis. RECOMMENDATIONS: The very much wanted to get his left hip injected while he was here and I think that is not unreasonable. There does not appear to be any obvious source of infection right now, so I think it should be fairly safe and they are well aware of the risks associated with it. As far as his shoulders go, they seem to be fairly stable, if anything his left shoulder probably is doing better since the cortisone injection. I will order an intra-articular fluoroscopic-guided injection of his left hip with 40 mg of Kenalog and 5 mL of 1% lidocaine to see if that alleviates some of his pain. I would anticipate the patient needing some rehabilitation or potentially halfway care at least for a period of time. I would recommend deep vein thrombosis (DVT) prophylaxis. It appears he is on Plavix and there also appeared to have been a sequential stockings ordered. I have also spoken with the about arranging for followup in our office sometime shortly after his discharge with either Dr. Nagy or Xin who are familiar with him on an outpatient basis. Thank you for the consultation.
--- NOTE | 2019-11-08 20:17 | CR ---
DATE OF CONSULTATION: 11/07/2019 NEPHROLOGY CONSULTATION REASON FOR CONSULT: To assist in the management of end-stage renal disease. HISTORY OF PRESENT ILLNESS: Mr. Mckeon is a 74-year-old gentleman with a history of longstanding diabetes, congestive heart failure, end-stage renal disease requiring maintenance hemodialysis, coronary artery disease, hyperlipidemia and chronic back pain. He has been on multiple pain medications. He was admitted with altered mentation and remains confused and disoriented. The patient is due for dialysis today and a nephrology consultation was requested. The patient is seen on his bedside. His is present in the room who reports that he was not sleeping for last 3 days and was walking in the house most of the night. He became very confused and disoriented due to which he was brought to the emergency room and got admitted yesterday. He has not missed any dialysis treatment so far. PAST MEDICAL AND SURGICAL HISTORY: Significant for: 1. Longstanding history of type 2 diabetes. 2. End-stage renal disease requiring maintenance hemodialysis. 3. History of anemia of chronic kidney disease. 4. History of chronic diastolic congestive heart failure. 5. History of mitral valve prosthesis and history of aortic stenosis. 6. History of pulmonary hypertension. 7. History of coronary artery disease, status post quadruple bypass. 8. History of bladder cancer, status post transurethral resection of bladder tumor (TURBT). 9. Gout. 10. History of restrictive lung disease. 11. History of obstructive sleep apnea. 12. History of chronic back pain and status post spinal stimulator implant. 13. Severe anxiety. 14. History of left elbow infection. 15. History of right knee surgery. 16. History of left arm arteriovenous (AV) fistula. 17. History of Perma-Cath. PERSONAL AND SOCIAL HISTORY: The patient is and lives with his . He currently does not smoke and has no history of alcohol or drug use. FAMILY HISTORY: Negative for end-stage renal disease. REVIEW OF SYSTEMS: The patient is quite confused and disoriented. He could not tell me the day or month correctly. He felt that he was at [facility]. The patient himself is unable to provide any reliable information. His reports that he was very restless and spent sleepless nights at home. Yesterday, he became very confused and disoriented due to which he was brought to the emergency room. There is no history of recent fall. However, he does have prior history of falls at home. He does have a history of chronic diastolic congestive heart failure but that has been under control as the patient was not eating or drinking much for last 3 days. There is no vomiting, fever or chills reported. REVIEW OF SYSTEMS: Otherwise unremarkable. PHYSICAL EXAMINATION: Temperature 98.1 degrees Fahrenheit, heart rate 92 per minute and respiratory rate 20 per minute. Blood pressure 149/88 mmHg and oxygen saturation 96% on room air. His head is atraumatic. Mild facial edema is present. Neck is supple and jugular venous distention (JVD) only mildly elevated. Heart sounds are regular and without a pericardial friction rub. Lungs with slightly diminished breath sounds and poor inspiratory effort. Abdomen: Soft and nontender and bowel sounds are normal. Extremities: Without any cyanosis or clubbing. Left arm AV fistula is patent. Left elbow is nontender now. On right upper chest, he has a Perma-Cath which has no signs of infection. Neurologically, he is sleepy but arousable. He is very confused and disoriented. The patient was unable to tell the place, month or year correctly. LABORATORY DATA: WBC count 12.6, hemoglobin 9.0 and hematocrit 28.5. Platelets 208. Sodium is 142 today, potassium 3.1, CO2 of 32, BUN 63 and creatinine 4.6. Total protein 6.7 and albumin 3.3. Toxicology was positive for opiates, acetaminophen less than 2.0 and salicylates less than 1.7. Urine was unremarkable. Chest x-ray did not show any acute infiltrate or effusion. Mild vascular interstitial markings noticed and right central venous catheter. Prior surgery for coronary artery bypass graft (CABG) and multiple sternal wires noted. PROBLEMS: 1. End-stage renal disease. The patient is regularly dialyzed on Friday, Friday and Friday schedule. We will try to get him on the schedule today. At present, his volume status seems reasonably well compensated, and he is not requiring any supplemental oxygen. His potassium level is slightly low, and the rest of the electrolytes are stable. There is no emergent need for dialysis. However, we will try to dialyze him either later today or tomorrow morning. 2. Hypokalemia. This is related to poor oral intake as he has not been eating well. We will replace his potassium with 20 mEq of potassium chloride today and recheck his electrolytes tomorrow. We will consider to dialyze him with 4.0 mEq potassium bath. 3. Chronic diastolic congestive heart failure. Volume status seems clinically well compensated. We will try to remove about 1.5 to 2 liters of fluid with dialysis. 4. Anemia. His anemia is chronic related to end-stage renal disease. There is no active bleeding and no emergent intervention indicated. 5. Confusion and altered mentation. The patient does have history of similar episodes in the past as he is on high-dose narcotics and also has severe anxiety. Probably inability to sleep may have contributed. At present, he should rest and get good sleep. I do not feel that end-stage renal disease is contributing to his altered mentation as he has not missed any dialysis. Thank you for involving me in the care of Mr. Mckeon. I will follow him along with you. JESSY
[2019-11-08] MEDS: DULoxetine 30 MG CAP (CYMBALTA) PO SCH (20:36)
[2019-11-08] MEDS: ATORVASTATIN 20 MG TAB PO SCH (20:36)
[2019-11-08] MEDS: FEBUXOSTAT 40 MG TABLET (ULORIC) PO SCH (20:37)
[2019-11-09] VITALS (7 sets, daily range): BP systolic 117–152; BP diastolic 57–83; O2SAT 98
[2019-11-09] MEDS: predniSONE 5 MG TAB PO SCH (06:26)
[2019-11-09] MEDS: VITAMIN D 1,000 INTERNATIONAL UNITS TABLET PO SCH (06:26)
[2019-11-09] MEDS: DOCUSATE SODIUM 100 MG CAP PO SCH ×2 (06:27→20:27)
[2019-11-09] MEDS: MULTIVITAMINS/MINERALS THERAP 1 TAB PO SCH (06:27)
[2019-11-09] MEDS: CARVedilol 6.25 MG TAB PO SCH ×2 (06:27→20:28)
[2019-11-09] MEDS: CLOPIDOGREL 75 MG TAB PO SCH (06:27)
[2019-11-09 07:36] LABS: HEMATOCRIT 29.6 % (42.0-52.0); HEMOGLOBIN 9.3 g/dl (13.5-17.5); MEAN CORPUSCULAR HEMOGLOBIN 33.2 pg (27.0-33.0); MEAN CORPUSCULAR HGB CONC 31.4 g/dl (32.0-36.5); MEAN CORPUSCULAR VOLUME 105.7 fl (80.0-96.0); PLATELET COUNT, AUTOMATED 190 10^3/uL (150-450); WHITE BLOOD COUNT 9.2 10^3/uL (4.0-10.0)
[2019-11-09 08:08] LABS: CALCIUM LEVEL 9.1 MG/DL (8.8-10.2); CREATININE FOR GFR 3.95 MG/DL (0.70-1.30); GLOMERULAR FILTRATION RATE 15.9 (>42); POTASSIUM SERUM 3.3 MEQ/L (3.5-5.1)
[2019-11-09] MEDS ORDERED: POTASSIUM CHLORIDE 10 MEQ SR TABLET PO ONE (09:00)
[2019-11-09] MEDS ORDERED: HEPARIN 1,000 UNITS/ML 10ML VIAL (FOR RADIOLOGY& DIALYSIS ONLY) XX ONE (10:30)
[2019-11-09] MEDS ORDERED: HEPARIN 1,000 UNITS/ML 10ML VIAL (FOR RADIOLOGY& DIALYSIS ONLY) IV ONE (10:30)
--- NOTE | 2019-11-09 12:50 | IPN ---
DATE OF VISIT: 11/09/2019 Mr. Harris is seen this morning during hemodialysis. He is still somewhat restless but not as confused. He was still unable to tell me the date or month correctly. He denies any dyspnea, chest pain, nausea, vomiting, fever or chills. PHYSICAL EXAMINATION: Temperature 98.4 degrees Fahrenheit, heart rate 88 per minute and respiratory rate 18 per minute. Blood pressure 144/76 mmHg and oxygen saturation 91% on room air. His head is atraumatic. Neck is supple and JVD not abnormally elevated. Heart sounds are irregular in rhythm and lungs sound clear to auscultation. Abdomen is soft and nontender. Bowel sounds are normal. Extremities without any cyanosis or clubbing. Left arm AV fistula is patent. We are currently using his PermaCath for dialysis on right upper chest. Neurologically he seems somewhat better, but still not back to baseline. Today's labs show WBC count 9.2, hemoglobin 9.3 and hematocrit 29.6. Platelets 190. Sodium 142, potassium 3.3, CO2 33, BUN 64 and creatinine 3.95. Glucose 88 and calcium 9.1. PROBLEMS: 1. End-stage renal disease. The patient is regularly dialyzed on Friday, Friday and Friday schedule. However he could not be dialyzed yesterday and is being dialyzed today. He is tolerating dialysis treatment very well. 2. Hypokalemia. Potassium level is still remains low due to poor oral intake. He will be given a dose of potassium chloride 40 mEq today. He is being dialyzed with 3.0 mEq potassium bath. 3. Anemia. His anemia is stable and we will continue to monitor closely. I will hold off on Aranesp. 4. Congestive heart failure. Volume status seems reasonably well-compensated and 1.5 liters fluid is being removed today. 5. Gout. Patient remains asymptomatic on Uloric 80 mg daily which should be continued. 6. Altered mentation. Seems to be slightly better but not back to baseline as yet.
[2019-11-09] MEDS ORDERED: LIDOCAINE 1% MDV 20ML VIAL As Ordered ONE (13:41)
[2019-11-09] MEDS ORDERED: CONRAY-43 43% 50ML VIAL (Q9960) As Ordered ONE (13:41)
[2019-11-09] MEDS ORDERED: TRIAMCINOLONE ACETONIDE SUSP 40 MG/ML VIAL (J3301) As Ordered ONE (13:41)
[2019-11-09] MEDS: MORPHINE 30 MG TAB **MSIR PO PRN (15:53)
--- NOTE | 2019-11-09 18:11 | REP ---
LEFT HIP INJECTION The procedure was performed under the direct supervision of Dr. Kumar. The benefits and risks including but not limited to pain infection bleeding and anaphylaxis were explained and informed consent was obtained by the health care proxy. The left femoral neck was localized using fluoroscopic guidance. The skin was prepped and draped in a sterile fashion. 1% lidocaine was used as a local anesthetic. Using fluoroscopic guidance a 22-gauge spinal needle was inserted and advanced to the femoral neck. 0.5 ml of Conray 43 was injected to verify placement. 6 ml of a solution containing 5 ml of 1% lidocaine and 1 ml of Kenalog 40 mg injected. The needle was then removed. The patient tolerated the procedure well and there were no immediate complications. Less than 6 seconds of fluoroscopy time was utilized for this procedure. Electronically Signed by RODO Velazquez 11/09/2019 04:54 P Electronically Signed by Agusto Kumar MD 11/09/2019 06:02 P
--- NOTE | 2019-11-09 19:41 | IPNPDOC ---
Date Seen The patient was seen on 11/09/19. Progress Note SUBJECTIVE: Patient appeared uncomfortable still with chronic pain. Answers questions appropriately. Mental status appeared to have improved. OBJECTIVE PHYSICAL EXAMINATION: VITAL SIGNS: Please see below. General: Alert, mild to moderate distress Eyes: Normal sclera, EOMI HENT: Atraumatic Cardiovascular: Normal rate, normal rhythm. Pulmonary: Clear to auscultation b/l, no wheezing GI: Soft, nontender, nondistended Skin: Warm and dry Neuro: CN grossly intact. No focal deficits. LABORATORY DATA, IMAGING STUDIES, MICROBIOLOGY: Please see below. DVT prophylaxis ordered?: Warfarin ASSESSMENT AND PLAN: 1. AMS - Improving. Previous episode due to anxiety/pain leading to sleep disturbance and AMS. - c/w to monitor. Will keep pain regimen the same at this time to avoid worseni ng lethargy/confusion. - Anticipate will continue to improve with supportive care. - Avoid over sedation with meds. Had followed with Dr. Lauren as outpatient and received steroid injection to shoulder. 2. Multiple joint pains - Recent shoulder injection. Currently worst pain in hip. - Seen by orthopedic surgery, plan for injection of L. hip. - Follows with pain management as outpatient, will f/u post discharge. 3. ESRD on HD - nephrology consult. - c/w HD as scheduled. - Vascular consult for fistula re-evaluation. Have not been using fistula due to elbow bursitis, completed antibiotics. 4. HTN - c/w coreg 5. Restrictive lung disease - c/w albuterol and spiriva DVT ppx: SCD and HSQ Code status: Full code DISPOSITION: Pending PT eval when mental status improves. VS, I&O, 24H, [facility] Vital Signs/I&O Vital Signs Date Time Temp Pulse Resp B/P (MAP) Pulse Ox O2 Delivery O2 Flow Rate FiO2 11/09/19 18:00 98.8 91 23 117/57 (77) 95 Room Air 11/08/19 07:31 2.0 I&O- Last 24 Hours up to 6 AM 11/09/19 06:00 Intake Total 1080 ml Output Total 350 ml Balance 730 ml Laboratory Data 24H LABS Laboratory Tests 2 11/09/19 06:56: Nucleated Red Blood Cells % (auto) 0.0, Anion Gap 6L, Glomerular Filtration Rate 15.9L, Calcium Level 9.1 CBC/BMP Laboratory Tests 11/09/19 06:56 Microbiology Microbiology 11/07/19 Blood Culture - Preliminary, Resulted No Growth after 48 hours. All Specime... 11/07/19 Blood Culture - Preliminary, Resulted No Growth after 48 hours. All Specime... ALEIDA VALENTINE MD Nov 09, 2019 19:41
[2019-11-09] MEDS: ATORVASTATIN 20 MG TAB PO SCH (20:27)
[2019-11-09] MEDS: DULoxetine 30 MG CAP (CYMBALTA) PO SCH (20:27)
[2019-11-09] MEDS: HEPARIN SOD (PORCINE) 5000 UNITS/ML VIAL SQ SCH (20:28)
[2019-11-10 02:00] VITALS: BP 140/80
[2019-11-10] MEDS: MORPHINE 30 MG TAB **MSIR PO PRN ×3 (02:02→18:27)
[2019-11-10] MEDS ORDERED: BACLOFEN 5MG PER 1/2 TABLET PO ONE (03:00)
[2019-11-10 06:00] VITALS: BP 138/84
[2019-11-10 09:44] LABS: HEMATOCRIT 32.3 % (42.0-52.0); HEMOGLOBIN 10.3 g/dl (13.5-17.5); MEAN CORPUSCULAR HEMOGLOBIN 32.9 pg (27.0-33.0); MEAN CORPUSCULAR HGB CONC 31.9 g/dl (32.0-36.5); MEAN CORPUSCULAR VOLUME 103.2 fl (80.0-96.0); PLATELET COUNT, AUTOMATED 218 10^3/uL (150-450); RED BLOOD COUNT 3.13 10^6/uL (4.30-6.10); WHITE BLOOD COUNT 9.1 10^3/uL (4.0-10.0)
[2019-11-10] MEDS: CLOPIDOGREL 75 MG TAB PO SCH (09:51)
[2019-11-10] MEDS: MULTIVITAMINS/MINERALS THERAP 1 TAB PO SCH (09:51)
[2019-11-10] MEDS: predniSONE 5 MG TAB PO SCH (09:51)
[2019-11-10] MEDS: VITAMIN D 1,000 INTERNATIONAL UNITS TABLET PO SCH (09:51)
[2019-11-10] MEDS: DOCUSATE SODIUM 100 MG CAP PO SCH ×2 (09:51→21:35)
[2019-11-10] MEDS: CARVedilol 6.25 MG TAB PO SCH ×2 (09:52→21:36)
[2019-11-10] MEDS: HEPARIN SOD (PORCINE) 5000 UNITS/ML VIAL SQ SCH ×2 (09:52→21:35)
[2019-11-10 10:00] VITALS: BP 132/56
[2019-11-10 10:29] LABS: CALCIUM LEVEL 9.3 MG/DL (8.8-10.2); CREATININE FOR GFR 2.78 MG/DL (0.70-1.30); GLOMERULAR FILTRATION RATE 23.8 (>42); POTASSIUM SERUM 4.1 MEQ/L (3.5-5.1)
--- NOTE | 2019-11-10 13:40 | CR.PDOC ---
General Date of Consultation: Nov 10, [address] Galindo HPI: 74 year old M with a past medical history significant for ESRD currently on hemodialysis as per nephrology every Friday using PermCath right chest, patient has left upper extremity brachiocephalic AV fistula which he has not been recently using related to left upper extremity edema. The patient was admitted 11/09/19 related to confusion. The patient had apparently missed his dialysis on Friday11/08/19. Vascular surgery is consulted to reevaluate left upper extremity fistula. Denies any fevers, chills, weakness, fatigue, Headache, Chest Pain, Shortness of breath, cough, palpitations, abdominal pain, N/V/D or changes in bowel or bladder habits. PAST MEDICAL /SURGICAL HISTORY: ESRD on dialysis Friday, Friday and Friday via left arm AV fistula and Port-A-Cath History of vascular steal syndrome Anemia of chronic disease complicated by anemia Chronic Diastolic dysfunction. Mitral valve prosthesis. Aortic stenosis. Mild pulmonary hypertension. History of [id number] type 2 diabetes mellitus (no longer on m edications) CAD status post quadruple bypass. History of bladder cancer twice (is currently in remission). Gout. Restrictive lung disease. ABELARDO/OHS (not compliant with BiPAP) Chronic back pain with spinal stimulator implant. Anxiety. History of right knee surgery. History of elbow surgery SOCIAL HISTORY: Former smoker FAMILY HISTORY: Mother: Diabetes ROS: As noted in HPI, otherwise 11pt ROS of systems reviewed and remarkable for chronic insomnia. PE: GEN: 74 yo M, generally ill-appearing, alert and oriented x 3. Out of bed to chair currently eating breakfast. HEENT: Normocephalic, atraumatic. Moist mucous membranes. CHEST: Regular rate and rhythm, +S1, +S2 LUNGS: Clear to auscultation bilaterally. ABD: Round, soft, non-tender, non-distended. EXT: The left upper extremity is noted to have ecchymosis, mild generalized swelling of the left upper extremity extending down to the hand. AV fistula in the left upper extremity with palpable thrill however there is some pulsatility noted. PermCath right chest with dressing intact, no tenderness, erythema, drainage. NEURO: Alert and oriented x 3. Cranial nerves III-XII are intact. No focal deficits appreciated. A&P: ESRD/hemodialysis. I have spoken with Dr. Hope, the patient missed his dialysis on Friday, he was dialyzed on November 09. Plan is to dialyze the patient again on November 11. The patient is reviewed with Dr. Galindo, Dr. Galindo is familiar with the patient. Tentative plan is for fistulogram to reevaluate the patient's fistula and left upper extremity swelling on November 12. I have discussed this with Dr. Hope. Dialysis currently through right chest PermCath. The patient states this has been functioning well. We will continue to follow along with you. Vital Signs/I&O Vital Signs Date Time Temp Pulse Resp B/P (MAP) Pulse Ox O2 Delivery O2 Flow Rate FiO2 11/10/19 12:28 19 Room Air 11/10/19 10:00 98.4 79 132/56 (81) 98 11/08/19 07:31 2.0 I&O- Last 24 Hours up to 6 AM 11/10/19 05:59 Intake Total 660 ml Output Total 2620 ml Balance -1960 ml Laboratory Data Labs 24H Laboratory Tests 2 11/10/19 09:34: Nucleated Red Blood Cells % (auto) 0.0, Anion Gap 8, Glomerular Filtration Rate 23.8L, Calcium Level 9.3 CBC/BMP Laboratory Tests 11/10/19 09:34 Microbiology Microbiology 11/07/19 Blood Culture - Preliminary, Resulted No Growth after 48 hours. All Specime... 11/07/19 Blood Culture - Preliminary, Resulted No Growth after 48 hours. All Specime... Allergies Coded Allergies: aspirin (Verified Allergy, Severe, LIPS SWELL, 03/29/19) Penicillins (Verified Allergy, Intermediate, RASH, 04/15/19) ampicillin (Verified Allergy, Intermediate, HIVES, 03/17/19) ceftriaxone (Verified Allergy, Unknown, UNKNOWN REACTION, 04/09/19) Home Medications Scheduled Atorvastatin Calcium (Atorvastatin Calcium) 20 Mg Tablet, 20 MG PO QHS, (Reported) Ca/D3/Mag Ox/Zinc/Relief Man/Uche/Bor (Calcium 600-D3 Plus Caplet) 1 Each Tablet, 1 TAB PO QHS, (Reported) Calcitriol (Calcitriol) 0.25 Mcg Capsule, 0.25 MCG PO 3XW, (Reported) RECEIVES AT DIALYSIS ON FRIDAY, FRIDAY AND FRIDAY Carvedilol (Carvedilol) 6.25 Mg Tablet, 6.25 MG PO BID, (Reported) Clindamycin HCl (Clindamycin HCl) 300 Mg Capsule, 600 MG PO Q8H, (Reported) 11/07/2019 LAST DAY OF ANTIBIOTIC COURSE Clopidogrel Bisulfate (Clopidogrel) 75 Mg Tablet, 75 MG PO DAILY, (Reported) Docusate Sodium (Docusate Sodium) 100 Mg Capsule, 100 MG PO BID, (Reported) Duloxetine Hcl (Cymbalta) 60 Mg Capsule.dr, 60 MG PO QHS, (Reported) Ergocalciferol (Vitamin D2) (Vitamin D2) 2,000 Unit Tablet, 4,000 UNITS PO DAILY, (Reported) Febuxostat (Uloric) 80 Mg Tablet, 80 MG PO Q2D, (Reported) AT BEDTIME Lactobacillus Acidophilus (Probiotic) 1 Each Capsule, 1 CAP PO QHS, (Reported) Lidocaine/Prilocaine (Lidocaine-Prilocaine Cream) 2.5%/2.5% Cream..g., 1 APPLIC TOP 3XW, (Reported) APPLY TO PORT SITE BEFORE DIALYSIS DAYS. COVER WITH SARAN WRAP Multivitamins (Thera M Plus Tablet) 1 Each Tablet, 1 TAB PO DAILY, (Reported) Naldemedine Tosylate (Symproic) 0.2 Mg Tablet, 0.2 MG PO DAILY, (Reported) Prednisone (Prednisone) 5 Mg Tablet, 5 MG PO DAILY, (Reported) Tiotropium [place] (Spiriva Respimat) 4 Gm Mist.inhal, 2 PUFFS INH DAILY, (Reported) Ubidecarenone (Co Q-10) 200 Mg Capsule, 200 MG PO BID, (Reported) Scheduled PRN Albuterol Sulf (Albuterol Sulfate) 2.5 Mg/3 Ml Vial.neb, 2.5 MG INH Q2H PRN for SOB/WHEEZING, (Reported) Albuterol Sulfate (Proair Hfa) 8.5 Gm Hfa.aer.ad, 2 PUFF INH QID PRN for SHORTNESS OF BREATH, (Reported) Alprazolam (Alprazolam) 0.25 Mg Tablet, 0.25 MG PO TID PRN for ANXIETY, (Reported) Baclofen (Baclofen) 10 Mg Tablet, 10 MG PO BID PRN for MUSCLE SPASMS, (Reported) Benzonatate (Benzonatate) 100 Mg Capsule, 100 MG PO TID PRN for COUGH, (Reported) Glycerin (Adult Glycerin) 1 Each Supp.rect, 1 EA SC DAILY PRN for CONSTIPATION, (Reported) Hydroxyzine HCl (Hydroxyzine HCl) 25 Mg Tablet, 25 MG PO TID PRN for ITCHING, (Reported) Morphine Sulfate (Morphine Sulfate) 15 Mg Tablet, 15 MG PO Q6H PRN for PAIN, (Reported) Gabi Kuhn Nov 10, 2019 13:40
[2019-11-10 14:00] VITALS: BP 109/47
[2019-11-10] MEDS: ACETAMINOPHEN TAB 650MG DOSE (2X325MG) PO PRN ×2 (14:27→22:32)
--- NOTE | 2019-11-10 15:01 | IPN ---
DATE OF VISIT: 11/10/2019 Mr. Groves is seen this morning on his bedside. He is sitting in the chair at the time of my visit. His is present in the room. The patient reports feeling much better and his mentation has improved significantly. He was able to tell the day, month and year correctly. The patient denies any dyspnea, chest pain, nausea or vomiting. PHYSICAL EXAMINATION: Temperature 98.4 degrees Fahrenheit, heart rate 80 per minute and respiratory rate 18 per minute. Blood pressure 132/56 mmHg and oxygen saturation 98% on room air. Head is atraumatic. Neck is supple and without JVD or thyroid enlargement. Lungs sound clear to auscultation bilaterally and heart sounds are irregular in rhythm. Abdomen soft and nontender and bowel sounds are normal. Extremities without any cyanosis or clubbing. Left arm AV fistula is patent. He has a PermaCath on right upper chest. Neurologically he is awake, alert and oriented x3. Today's labs show WBC count 9.1, hemoglobin 10.3 and hematocrit 32.3. Platelets 218. Sodium 139, potassium 4.1, CO2 29, BUN 43 and creatinine 2.78. Glucose 141 and calcium 9.3. PROBLEMS: 1. End-stage renal disease. The patient is regularly dialyzed on Friday, Friday and Friday schedule. He was dialyzed yesterday and we will plan to dialyze him again tomorrow. We will try to get him back on his regular schedule as soon as possible. At this point there is no emergent indication for dialysis today as his volume status is well-compensated and electrolytes are within normal range. 2. Altered mentation. Most likely it was related to sleeplessness for a couple of days and pain medications. His mentation has improved back to baseline now. 3. Anemia. At this point his anemia is stable and we will continue to watch closely. 4. Hypokalemia. The patient had poor oral intake for a few days and also had dialysis. Now his hypokalemia has improved with potassium supplement and improved oral intake. 5. Generalized weakness and deconditioning. The patient is walking with physical therapist and it remains to be seen how he does with for the physical evaluation. From a renal standpoint, he seems to be quite improved and could be discharged to home as soon as he gets cleared by physical therapy.
[2019-11-10 18:00] VITALS: BP 129/64
--- NOTE | 2019-11-10 20:34 | IPNPDOC ---
Date Seen The patient was seen on 11/10/19. Progress Note SUBJECTIVE: Patient appear to be back at baseline today and appear comfortable. Reports some back discomfort with hospital bed. OBJECTIVE PHYSICAL EXAMINATION: VITAL SIGNS: Please see below. General: Alert Eyes: Normal sclera, EOMI HENT: Atraumatic Cardiovascular: Normal rate, normal rhythm. Pulmonary: Clear to auscultation b/l, no wheezing GI: Soft, nontender, nondistended Skin: Warm and dry. L. elbow swelling. Neuro: CN grossly intact. No focal deficits. LABORATORY DATA, IMAGING STUDIES, MICROBIOLOGY: Please see below. ASSESSMENT AND PLAN: 1. AMS - Improving. Previous episode due to anxiety/pain leading to sleep disturbance and AMS. - c/w to monitor. Will keep pain regimen the same at this time to avoid worsening lethargy/confusion. - Anticipate will continue to improve with supportive care. - Avoid over sedation with meds. Had followed with Dr. Lauren as outpatient and received steroid injection to shoulder. 2. Multiple joint pains - Recent shoulder injection. Currently worst pain in hip. - Seen by orthopedic surgery, plan for injection of L. hip. - Follows with pain management as outpatient, will f/u post discharge. 3. ESRD on HD - nephrology consult. - c/w HD as scheduled. - Vascular consult for fistula re-evaluation. Have not been using fistula due to elbow bursitis, completed antibiotics. - Plan for fistulogram on Friday. 4. HTN - c/w coreg 5. Restrictive lung disease - c/w albuterol and spiriva DVT ppx: SCD and HSQ Code status: Full code DISPOSITION: Pending PT eval when mental status improves. [facility]O Vital Signs Date Time Temp Pulse Resp B/P (MAP) Pulse Ox O2 Delivery O2 Flow Rate FiO2 11/10/19 18:57 18 Room Air 11/10/19 18:00 98.3 84 129/64 (85) 98 11/08/19 07:31 2.0 I&O- Last 24 Hours up to 6 AM 11/10/19 06:00 Intake Total 660 ml Output Total 2620 ml Balance -1960 ml Laboratory Data 24H LABS Laboratory Tests 2 11/10/19 09:34: Nucleated Red Blood Cells % (auto) 0.0, Anion Gap 8, Glomerular Filtration Rate 23.8L, Calcium Level 9.3 CBC/BMP Laboratory Tests 11/10/19 09:34 Microbiology Microbiology 11/07/19 Blood Culture - Preliminary, Resulted No Growth after 72 hours. All specime... 11/07/19 Blood Culture - Preliminary, Resulted No Growth after 72 hours. All specime... ALEIDA VALENTINE MD Nov 10, 2019 20:34
[2019-11-10] MEDS: ATORVASTATIN 20 MG TAB PO SCH (21:35)
[2019-11-10] MEDS: FEBUXOSTAT 40 MG TABLET (ULORIC) PO SCH (21:35)
[2019-11-10] MEDS: DULoxetine 30 MG CAP (CYMBALTA) PO SCH (21:35)
[2019-11-10 22:00] VITALS: BP 132/71
[2019-11-11] MEDS: MORPHINE 30 MG TAB **MSIR PO PRN ×4 (01:01→20:34)
[2019-11-11] MEDS: RAMELTEON 8 MG TAB (ROZEREM) PO SCH ×2 (02:28→20:32)
[2019-11-11 06:00] VITALS: BP 138/74
[2019-11-11 06:21] LABS: HEMATOCRIT 35.2 % (42.0-52.0); MEAN CORPUSCULAR HEMOGLOBIN 32.6 pg (27.0-33.0); MEAN CORPUSCULAR HGB CONC 31.3 g/dl (32.0-36.5); MEAN CORPUSCULAR VOLUME 104.5 fl (80.0-96.0); PLATELET COUNT, AUTOMATED 219 10^3/uL (150-450); RED BLOOD COUNT 3.37 10^6/uL (4.30-6.10); WHITE BLOOD COUNT 11.4 10^3/uL (4.0-10.0)
[2019-11-11] MEDS: VITAMIN D 1,000 INTERNATIONAL UNITS TABLET PO SCH (06:25)
[2019-11-11] MEDS: HEPARIN SOD (PORCINE) 5000 UNITS/ML VIAL SQ SCH ×2 (06:25→20:32)
[2019-11-11] MEDS: MULTIVITAMINS/MINERALS THERAP 1 TAB PO SCH (06:25)
[2019-11-11] MEDS: predniSONE 5 MG TAB PO SCH (06:26)
[2019-11-11] MEDS: CLOPIDOGREL 75 MG TAB PO SCH (06:26)
[2019-11-11] MEDS: DOCUSATE SODIUM 100 MG CAP PO SCH ×2 (06:26→20:33)
[2019-11-11] MEDS: CARVedilol 6.25 MG TAB PO SCH ×3 (06:27→20:50)
[2019-11-11] MEDS: ACETAMINOPHEN TAB 650MG DOSE (2X325MG) PO PRN ×2 (06:29→18:54)
[2019-11-11 06:47] LABS: CALCIUM LEVEL 9.1 MG/DL (8.8-10.2); CREATININE FOR GFR 3.02 MG/DL (0.70-1.30); GLOMERULAR FILTRATION RATE 21.7 (>42); POTASSIUM SERUM 4.2 MEQ/L (3.5-5.1)
--- NOTE | 2019-11-11 09:01 | IPNPDOC ---
Text Note Date of Service The patient was seen on 11/11/19. NOTE Vascular surgery. Dr. Galindo HPI: 74 year old M with a past medical history significant for ESRD currently on hemodialysis as per nephrology every Friday using PermCath right chest, patient has left upper extremity brachiocephalic AV fistula which he has not been recently using related to left upper extremity edema. Vascular surgery is consulted to reevaluate left upper extremity fistula. The patient is sitting on the side that this morning. PE: GEN: 74 yo M, generally ill-appearing, alert and oriented x 3. HEENT: Normocephalic, atraumatic. Moist mucous membranes. CHEST: Regular rate and rhythm, +S1, +S2 LUNGS: Clear to auscultation bilaterally. ABD: Round, soft, non-tender, non-distended. EXT: The left upper extremity is noted to have ecchymosis, swelling of the left upper extremity appears to be improved today. AV fistula in the left upper extremity with palpable thrill. PermCath right chest with dressing intact, no tenderness, erythema, drainage. NEURO: Alert and oriented x 3. Cranial nerves III-XII are intact. No focal deficits appreciated. A&P: ESRD/hemodialysis. I have spoken with Dr. Hope, Plan is to dialyze the patient again today. The patient is reviewed and examined as per Dr. Galindo. Plan is for fistulogram to reevaluate the patient's fistula and left upper extremity swelling on Friday, November 12. I have relayed this to Dr. Hope. Informed consent was placed on the chart. Dialysis currently through right chest PermCath. The patient states this has been functioning well. We will continue to follow along with you. VS,Fishbone, I+O VS, Fishbone, I+O Laboratory Tests 11/10/19 09:34 11/11/19 05:25 Vital Signs Date Time Temp Pulse Resp B/P (MAP) Pulse Ox O2 Delivery O2 Flow Rate FiO2 11/11/19 07:34 17 Room Air 11/11/19 06:27 84 133/62 11/11/19 06:00 97.4 96 11/08/19 07:31 2.0 I&O- Last 24 Hours up to 6 AM 11/11/19 06:00 Intake Total 1200 ml Output Total 400 ml Balance 800 ml Gabi Kuhn Nov 11, 2019 09:01
[2019-11-11] MEDS ORDERED: HEPARIN 1,000 UNITS/ML 10ML VIAL (FOR RADIOLOGY& DIALYSIS ONLY) XX ONE (11:00)
[2019-11-11] MEDS ORDERED: HEPARIN 1,000 UNITS/ML 10ML VIAL (FOR RADIOLOGY& DIALYSIS ONLY) IV ONE (11:00)
[2019-11-11 14:00] VITALS: BP 91/44
--- NOTE | 2019-11-11 14:34 | IPN ---
DATE OF VISIT: 11/11/2019 Mr. Srinivasan is seen this morning during hemodialysis. He is feeling much better and was able to ambulate and do his physical therapy.. He denies any nausea, vomiting, dyspnea or chest pain. His altered mentation has improved and he has been sleeping much better now in the hospital. On physical exam, temperature 97.4 degrees Fahrenheit, heart rate 84 per minute and respiratory rate 16 per minute. Blood pressure 133/62 mmHg and oxygen saturation 96% on room air. Head is atraumatic. Neck supple and without jugular venous distention (JVD) or thyroid enlargement. Heart sounds regular and lungs clear to auscultation. Abdomen soft and nontender. Bowel sounds normal. Extremities without any cyanosis or clubbing. Left arm arteriovenous (AV) fistula is patent. Today's labs showed WBC count 11.4, hemoglobin 11.0 and hematocrit 34.2. Platelets 219. Sodium 139, potassium 4.2, CO2 25, BUN 59 and creatinine 3.0. Glucose 95 and calcium 9.1. PROBLEMS: 1. End-stage renal disease. Patient s being dialyzed and he is tolerating dialysis treatment very well. 2. Congestive heart failure. Volume status has been very well compensated and we plan to remove 2.5 liters of fluid today. He is tolerating it well so far. 3. Anemia. His anemia has been stable and no intervention is indicated. 4. Altered mentation. His mentation has also improved and he is back to his baseline now. 5. Poorly functioning left arm AV fistula. Patient has been seen by Dr. Galindo and is going to have a fistulogram done tomorrow. We will wait for the results. DISPOSITION: From renal standpoint, patient is doing very well and probably can be discharged after fistulogram if no problems.
[2019-11-11 15:12] VITALS: BP 86/44
[2019-11-11 15:53] VITALS: BP 94/48
[2019-11-11 16:49] VITALS: BP 108/54
--- NOTE | 2019-11-11 16:59 | IPNPDOC ---
Date Seen The patient was seen on 11/11/19. Progress Note SUBJECTIVE: Patient reports feeling well. Had dialysis today. Noted to be hypotensive post dialysis 86/44 this afternoon but does not note any symptoms when evaluated. Repeat BP 108/54 without any interventions. OBJECTIVE PHYSICAL EXAMINATION: VITAL SIGNS: Please see below. General: Alert Eyes: Normal sclera, EOMI HENT: Atraumatic Cardiovascular: Normal rate, normal rhythm. Pulmonary: Clear to auscultation b/l, no wheezing GI: Soft, nontender, nondistended Skin: Warm and dry. L. elbow swelling. Neuro: CN grossly intact. No focal deficits. LABORATORY DATA, IMAGING STUDIES, MICROBIOLOGY: Please see below. ASSESSMENT AND PLAN: 1. AMS - Resolved. Previous episode due to anxiety/pain leading to sleep disturbance and AMS. - c/w to monitor. Will keep pain regimen the same at this time to avoid worsening lethargy/confusion. - Avoid over sedation with meds. Had followed with Dr. Lauren as outpatient and received steroid injection to shoulder. 2. Multiple joint pains - Recent shoulder injection. Currently worst pain in hip. - Seen by orthopedic surgery, plan for injection of L. hip. - Follows with pain management as outpatient, will f/u post discharge. 3. ESRD on HD - nephrology following. - c/w HD as scheduled. - Vascular consult for fistula re-evaluation. Have not been using fistula due to elbow bursitis, completed antibiotics. - Plan for fistulogram on tomorrow. 4. HTN - c/w coreg 5. Restrictive lung disease - c/w albuterol and spiriva DVT ppx: SCD and HSQ Code status: Full code DISPOSITION: Likely can be discharged home tomorrow after fistulogram if no problems. VS, I&O, 24H, Fishbone Vital Signs/I&O Vital Signs Date Time Temp Pulse Resp B/P (MAP) Pulse Ox O2 Delivery O2 Flow Rate FiO2 11/11/19 16:49 108/54 (72) 11/11/19 15:53 74 11/11/19 14:55 16 Room Air 11/11/19 14:00 98 11/11/19 06:00 97.4 11/08/19 07:31 2.0 I&O- Last 24 Hours up to 6 AM 11/11/19 06:00 Intake Total 1200 ml Output Total 400 ml Balance 800 ml Laboratory Data 24H LABS Laboratory Tests 2 11/11/19 05:25: Nucleated Red Blood Cells % (auto) 0.0, Anion Gap 10, Glomerular Filtration Rate 21.7L, Calcium Level 9.1 CBC/BMP Laboratory Tests 11/11/19 05:25 Microbiology Microbiology 11/07/19 Blood Culture - Preliminary, Resulted No Growth after 72 hours. All specime... 11/07/19 Blood Culture - Preliminary, Resulted No Growth after 72 hours. All specime... ALEIDA VALENTINE MD Nov 11, 2019 16:59
[2019-11-11] MEDS: DULoxetine 30 MG CAP (CYMBALTA) PO SCH (20:32)
[2019-11-11] MEDS: ATORVASTATIN 20 MG TAB PO SCH (20:32)
[2019-11-11 22:00] VITALS: BP 117/70
[2019-11-12 02:00] VITALS: BP 143/58
[2019-11-12] MEDS: ACETAMINOPHEN TAB 650MG DOSE (2X325MG) PO PRN (02:58)
[2019-11-12] MEDS: MORPHINE 30 MG TAB **MSIR PO PRN (04:36)
[2019-11-12 06:00] VITALS: BP 120/70
[2019-11-12 06:24] LABS: CREATININE FOR GFR 2.84 MG/DL (0.70-1.30); GLOMERULAR FILTRATION RATE 23.3 (>42)
--- NOTE | 2019-11-12 07:55 | IPN ---
DATE: 11/12/2019 He is doing much better following a hip injection. Does not seem to be very irritable to range of motion of the hip. He is resting comfortably. He has no other complaints with regard to his shoulders that are different. Plan will be to have him follow in the office with one of the providers in my office at [facility].
[2019-11-12] MEDS: HEPARIN SOD (PORCINE) 5000 UNITS/ML VIAL SQ SCH (09:41)
[2019-11-12] MEDS: VITAMIN D 1,000 INTERNATIONAL UNITS TABLET PO SCH (09:42)
[2019-11-12] MEDS: MULTIVITAMINS/MINERALS THERAP 1 TAB PO SCH (09:42)
[2019-11-12] MEDS: DOCUSATE SODIUM 100 MG CAP PO SCH (09:42)
[2019-11-12 09:44] VITALS: BP 136/59
[2019-11-12] MEDS: CARVedilol 6.25 MG TAB PO SCH (09:44)
[2019-11-12] MEDS: CLOPIDOGREL 75 MG TAB PO SCH (09:45)
[2019-11-12] MEDS: predniSONE 5 MG TAB PO SCH (09:45)
[2019-11-12 10:00] VITALS: BP 130/76
[2019-11-12] MEDS ORDERED: fentaNYL 100 MCG/2 ML INJECTION (J3010) As Ordered ONE (14:43)
[2019-11-12] MEDS ORDERED: MIDAZOLAM INJ 2 MG/2 ML VIAL (J2250) As Ordered ONE (14:44)
[2019-11-12] MEDS ORDERED: ISOVUE-300 61% 50ML VIAL (Q9967) As Ordered ONE (14:44)
[2019-11-12] MEDS ORDERED: LIDOCAINE 1% MDV 20ML VIAL As Ordered ONE (14:44)
--- NOTE | 2019-11-12 15:55 | ROOPDOC ---
[facility] Report Of Operation Report of Operation DATE OF PROCEDURE: 11/12/19 PREPROCEDURE DIAGNOSES: End-stage renal disease with poorly functioning left upper extremity AV fistula POSTPROCEDURE DIAGNOSES: Same PROCEDURE: 1. Ultrasound-guided access left upper extremity brachiocephalic AV fistula 2. Left upper extremity fistulogram and central venogram 3. Angioplasty proximal cephalic vein with 8 x 20 cutting balloon and 9 x 80 [place] balloon 4. Completion venogram SURGEON: Sara Galindo MD ANESTHESIA: Local anesthesia with 4 cc lidocaine. Moderate intravenous conscious sedation was administered by Dr. Galindo. The patient was independently monitored by registered nurse assigned to the Department of radiology using automated blood pressure, EKG, and pulse oximetry. The detailed sedation record is permanently stored in the hospital information system. The following is the brief sedation record: Start time 15:02, stop time 15:33, Versed 0.5 mg IV, fentanyl 25 g IV. CONTRAST: 25 mL Isovue 300 INDICATION FOR PROCEDURE: This is a very pleasant 74-year-old patient with end- stage renal disease who was dialyzing with a left brachiocephalic AV fistula and had a significant infiltration a few weeks back. Since then, the tissue is healed and the swelling has improved. He had a good thrill, but there was still some pulsatility and we had concerned that there might be some issue with outflow. Before trying to use fistula again for dialysis, we felt the best option was to evaluated by fistulogram and see if there was any improvements we could make, and anything we could do to make cannulation easier. Risks benefits and alternatives to a fistulogram and potential intervention were explained to the patient and he was agreeable to proceed. Informed consent was obtained. INTERPRETATION: 1. The arteriovenous anastomosis is widely patent with rapid flow into the fistula. There is a large branch flowing retrograde approximately 4 cm from the AV anastomosis office cephalic vein. It does not seem to be stealing enough blood to require coiling, but we can always revisit this at a later date. The cephalic vein is widely patent in the upper arm and then is ectatic and mildly stenotic in the shoulder. There is one area of focal stenosis just proximal to the cephalic subclavian junction. The central veins are widely patent. 2. After angioplasty of the proximal cephalic vein with a 9 x 80 [place] balloon, there was still a tight area of stenosis just proximal to the cephalic subclavian junction. This was still flow-limiting, and therefore we did a repeat angioplasty with an 8 x 20 cutting balloon along the entire area and following this, there was a dramatic improvement inflow into the central system with no residual stenosis. No extravasation was noted. There was good thrill in the fistula. REPORT OF OPERATION: The patient was brought to the angiographic suite in stable condition. His left upper extremity was prepped and draped in a sterile fashion. A timeout was performed. Local anesthesia was administered to the skin and subcutaneous tissue over the cephalic vein in the upper arm. Microneedle was used to access the vein and a wire was passed through this access into the cephalic vein fistula under fluoroscopic guidance. The needle was removed and a micro-sheath was placed. Through this access a Glidewire was advanced into the central system under fluoroscopic guidance in the sheath was exchanged for 6 Hungarian sheath. Fistulogram and central venogram were performed, please see interpretation above. We advanced a 9 x 80 [place] balloon across his proximal cephalic vein, and were able to successfully angioplasty the majority of the area, but there is one focal tight area of stenosis that was resistant to angioplasty with this balloon. After three-minute inflations, our venogram showed that there was still flow-limitation from the stenosis. We then exchanged the sheath for 7 Hungarian sheath over the wire and flushed the sheath with saline. An O18 Glidewire was advanced into the central system and an 8 x 20 cutting balloon was advanced over the wire and the proximal cephalic vein was angioplastied all along a 10 cm area with repeated angioplasties with the cutting balloon, focusing additional efforts at the area of heavy stenosis. Following this, there was no flow-limiting stenosis residual at that area and rapid flow into the central system with no obstruction. There was an excellent thrill and the fistula. This concluded our procedure. Local anesthesia was administered around the sheath and then a Prolene suture was placed in a [id number] pattern and secured as the sheath was removed. Pressure was held for 2 minutes for good hemostasis and after sterile dressings were applied. Ultrasound was used to danielle the fistula on the skin. It will be okay to use the fistula for dialysis. The patient was then taken to recovery in stable condition. He tolerated the procedure and the sedation well. ESTIMATED BLOOD LOSS: Approximately 2 mL. COMPLICATIONS: None. PLAN: It is okay for them to use his AV fistula for dialysis. I did danielle the fistula on the skin to make access a bit easier. It is okay for discharge this evening from the hospital from a vascular standpoint if the patient is medically stable and ready for discharge. If his fistula successful for use, we'll be happy to help with removing his PermCath as soon as we are able. SARA GALINDO MD Nov 12, 2019 15:55
[2019-11-12 16:00] VITALS: BP 159/70
--- NOTE | 2019-11-12 16:13 | IPN ---
DATE: 11/12/2019 Mr. Mckeon is seen this morning on his bedside. He is feeling well and denies any dyspnea, chest pain, nausea or vomiting. He is waiting for his left upper extremity fistula angiogram. He was dialyzed yesterday. PHYSICAL EXAMINATION: Temperature 97.4 degrees Fahrenheit, heart rate 84 per minute and respiratory rate 20 per minute. Blood pressure 130/76 mmHg and oxygen saturation 95% on room air. Head is atraumatic. Neck: Supple and without jugular venous distention (JVD) or thyroid enlargement. Heart sounds are regular and lungs clear to auscultation. Abdomen: Soft and nontender and bowel sounds are normal. Extremities: Without any cyanosis or clubbing. He has a Perma-Cath in the right upper chest. His left arm arteriovenous (AV) fistula is patent. Neurologically, the patient is awake, alert and at his baseline mentation. Today's labs show sodium 138, potassium 4.0, BUN 38 and creatinine 2.84. Glucose 96 and calcium 9.0. PROBLEMS: 1. End-stage renal disease. The patient is regularly dialyzed on Friday, Friday and Friday schedule. He was dialyzed yesterday and no dialysis today. He is very well dialyzed at this point and will be scheduled for outpatient dialysis on Friday. He will return to his regular schedule next week. 2. Congestive heart failure. Volume status remains very well compensated with hemodialysis here in the hospital. At home, he is usually noncompliant with fluid restriction and does get volume overloaded. 3. Poor function of left arm AV fistula. The patient is scheduled for fistulogram today and we will wait for the results. If his fistula gets cleared for use, then we will start using it next week. 4. Altered mentation. His mentation is back to baseline, and he is doing very well. DISPOSITION: The patient can be discharged to home after angiogram today. I have already arranged for outpatient dialysis at 7:00 a.m. on Friday and then he will return to his regular schedule next week.
--- NOTE | 2019-11-12 17:43 | DS.PDOC ---
Discharge Summary General Date of Admission Nov 08, 2019 at 10:18 Date of Discharge 11/12/19 Discharge Summary PROCEDURES PERFORMED DURING STAY: [None]. ADMITTING DIAGNOSES: 1. Encephalopathy 2. L. elbow olecranon bursitis 3. HTN 4. ESRD on hD 5. HTN DISCHARGE DIAGNOSES: 1. Encephalopathy 2. L. elbow olecranon bursitis 3. HTN 4. ESRD on hD 5. HTN COMPLICATIONS/CHIEF COMPLAINT: Confusion. HISTORY OF PRESENT ILLNESS: "74 year old male presents from home with confusion. at bedside assisting with history. stating patient recently fell 3 days ago, landed on his L shoulder and L hip. Has had increasing pain and difficulty ambulating since then, with inability to sleep the last three nights because of this. Went to see his orthopedist on Friday, saw Dr. Nagy, had X rays of his shoulder done which states were negative, had a cortisone injection into the L shoulder. Today he became increasingly confused and she decided to bring him to the hospital for evaluation as "I just wasn't able to manage him at home". Presents with stable vitals/afebrile, CT head negative, labs with normal wbc count, negative CXR. Tx with morphine 2gm IV x 1 in ED, patient is asleep, arousable but unable to provide any history." HOSPITAL COURSE: Patient was monitored with improvement in symptoms. Patient has had history of lethargy when he is not able to sleep well and usually improves without any intervention, which seem to be the case again this time. Patient is now seem to be back at baseline without any complaints and appear comfortable. Has been getting HD while inpatient with nephro as well as fistulogram performed with vascular surgery. Tolerated procedure. He also has his L. hip injection due to pain and seem to have helped. To be discharged today to f/u PMD, Ortho and Nephro. DISCHARGE MEDICATIONS: Please see below. ALLERGIES: Please see below. PHYSICAL EXAMINATION ON DISCHARGE: VITAL SIGNS: Please see below. VITAL SIGNS: Please see below. General: Alert Eyes: Normal sclera, EOMI HENT: Atraumatic Cardiovascular: Normal rate, normal rhythm. Pulmonary: Clear to auscultation b/l, no wheezing GI: Soft, nontender, nondistended Skin: Warm and dry. L. elbow swelling. Neuro: CN grossly intact. No focal deficits. LABORATORY DATA: Please see below. IMAGING: Head CT- Mild to moderate atrophy and vascular calcifications in the carotid siphons. No acute intracranial hemorrhage, midline shift, or mass effect. L. hip XR- Moderate arthritic changes. ACTIVITY: [As tolerated]. DIET: Low sodium diet DISCHARGE PLAN: f/u PMD, Nephro and Orthopedic surgery DISPOSITION: Home. DISCHARGE INSTRUCTIONS: f/u PMD, Nephro and Orthopedic surgery ITEMS TO FOLLOWUP ON ON OUTPATIENT: None DISCHARGE CONDITION: [Stable]. TIME SPENT ON DISCHARGE: 35 minutes. Vital Signs/I&Os Vital Signs Date Time Temp Pulse Resp B/P (MAP) Pulse Ox O2 Delivery O2 Flow Rate FiO2 11/12/19 16:00 78 18 96 Room Air 11/12/19 15:25 2 11/12/19 10:00 97.4 130/76 (94) I&O- Last 24 Hours up to 6 AM 11/12/19 06:00 Intake Total 1230 ml Output Total 2700 ml Balance -1470 ml Laboratory Data Labs 24H Laboratory Tests 2 11/12/19 05:19: Anion Gap 7L, Glomerular Filtration Rate 23.3L, Calcium Level 9.0 CBC/BMP Laboratory Tests 11/12/19 05:19 Microbiology Microbiology 11/07/19 Blood Culture - Final, Complete NO GROWTH AFTER 5 DAYS 11/07/19 Blood Culture - Final, Complete NO GROWTH AFTER 5 DAYS Discharge Medications Scheduled Atorvastatin Calcium (Atorvastatin Calcium) 20 Mg Tablet, 20 MG PO QHS, (Reported) Ca/D3/Mag Ox/Zinc/Chemist/Uche/Bor (Calcium 600-D3 Plus Caplet) 1 Each Tablet, 1 TAB PO QHS, (Reported) Calcitriol (Calcitriol) 0.25 Mcg Capsule, 0.25 MCG PO 3XW, (Reported) RECEIVES AT DIALYSIS ON FRIDAY, FRIDAY AND FRIDAY Carvedilol (Carvedilol) 6.25 Mg Tablet, 6.25 MG PO BID, (Reported) Clopidogrel Bisulfate (Clopidogrel) 75 Mg Tablet, 75 MG PO DAILY, (Reported) Docusate Sodium (Docusate Sodium) 100 Mg Capsule, 100 MG PO BID, (Reported) Duloxetine Hcl (Cymbalta) 60 Mg Capsule.dr, 60 MG PO QHS, (Reported) Ergocalciferol (Vitamin D2) (Vitamin D2) 2,000 Unit Tablet, 4,000 UNITS PO DAILY, (Reported) Febuxostat (Uloric) 80 Mg Tablet, 80 MG PO Q2D, (Reported) AT BEDTIME Lactobacillus Acidophilus (Probiotic) 1 Each Capsule, 1 CAP PO QHS, (Reported) Lidocaine/Prilocaine (Lidocaine-Prilocaine Cream) 2.5%/2.5% Cream..g., 1 APPLIC TOP 3XW, (Reported) APPLY TO PORT SITE BEFORE DIALYSIS DAYS. COVER WITH SARAN WRAP Multivitamins (Thera M Plus Tablet) 1 Each Tablet, 1 TAB PO DAILY, (Reported) Naldemedine Tosylate (Symproic) 0.2 Mg Tablet, 0.2 MG PO DAILY, (Reported) Prednisone (Prednisone) 5 Mg Tablet, 5 MG PO DAILY, (Reported) Tiotropium [place] (Spiriva Respimat) 4 Gm Mist.inhal, 2 PUFFS INH DAILY, (Reported) Ubidecarenone (Co Q-10) 200 Mg Capsule, 200 MG PO BID, (Reported) Scheduled PRN Albuterol Sulf (Albuterol Sulfate) 2.5 Mg/3 Ml Vial.neb, 2.5 MG INH Q2H PRN for SOB/WHEEZING, (Reported) Albuterol Sulfate (Proair Hfa) 8.5 Gm Hfa.aer.ad, 2 PUFF INH QID PRN for SHORTNESS OF BREATH, (Reported) Alprazolam (Alprazolam) 0.25 Mg Tablet, 0.25 MG PO TID PRN for ANXIETY, (Reported) Baclofen (Baclofen) 10 Mg Tablet, 10 MG PO BID PRN for MUSCLE SPASMS, (Reported) Benzonatate (Benzonatate) 100 Mg Capsule, 100 MG PO TID PRN for COUGH, (Reported) Glycerin (Adult Glycerin) 1 Each Supp.rect, 1 EA UT DAILY PRN for CONSTIPATION, (Reported) Hydroxyzine HCl (Hydroxyzine HCl) 25 Mg Tablet, 25 MG PO TID PRN for ITCHING, (Reported) Morphine Sulfate (Morphine Sulfate) 15 Mg Tablet, 15 MG PO Q6H PRN for PAIN, (Reported) Allergies Coded Allergies: aspirin (Verified Allergy, Severe, LIPS SWELL, 03/29/19) Penicillins (Verified Allergy, Intermediate, RASH, 04/15/19) ampicillin (Verified Allergy, Intermediate, HIVES, 03/17/19) ceftriaxone (Verified Allergy, Unknown, UNKNOWN REACTION, 04/09/19) ALEIDA VALENTINE MD Nov 12, 2019 17:43
== END 2019-11-12 17:50 | disposition home or self-care (01) | DRG 37 ==
LOC: M ED 13:26 → M ED INP 13:27 → ENRESERVDT 16:34 → ENRESERVTM 16:34 → M MSPAV 17:07 → OBSVTOIN 11-08 10:18
PROVIDERS: ADMIT Internal Medicine; ATTEND Student in an Organized Health Care Education/Training Program
PROC: 5A1D70Z Performance of Urinary Filtration, Intermittent, Less than 6 Hours Per Day (ICD-10-PCS; 2019-11-09)
PROC: 057F3DZ Dilation of Left Cephalic Vein with Intraluminal Device, Percutaneous Approach (ICD-10-PCS; principal; 2019-11-12 14:54)
DX: G93.40 Encephalopathy, unspecified (principal); N18.6 End stage renal disease; I13.2 Hypertensive heart and chronic kidney disease with heart failure and with stage 5 chronic kidney disease, or end stage renal disease; I50.32 Chronic diastolic (congestive) heart failure; T82.49XA Other complication of vascular dialysis catheter, initial encounter; D63.1 Anemia in chronic kidney disease; I27.20 Pulmonary hypertension, unspecified; I25.10 Atherosclerotic heart disease of native coronary artery without angina pectoris; Z85.51 Personal history of malignant neoplasm of bladder; M10.9 Gout, unspecified; G47.33 Obstructive sleep apnea (adult) (pediatric); J98.4 Other disorders of lung; M54.9 Dorsalgia, unspecified; F41.9 Anxiety disorder, unspecified; E11.22 Type 2 diabetes mellitus with diabetic chronic kidney disease; M70.22 Olecranon bursitis, left elbow; Z79.52 Long term (current) use of systemic steroids; Z79.899 Other long term (current) drug therapy; Z88.0 Allergy status to penicillin; Z88.1 Allergy status to other antibiotic agents; Z88.6 Allergy status to analgesic agent; Z99.2 Dependence on renal dialysis; Z95.1 Presence of aortocoronary bypass graft; Z95.2 Presence of prosthetic heart valve; Z87.891 Personal history of nicotine dependence; E87.6 Hypokalemia; R53.1 Weakness; I95.3 Hypotension of hemodialysis

== ENCOUNTER → 2019-11-22 | Outpatient (REF) | payer MEDICARE, OTHER ==
[~2019-11-22] MED LIST changes: -CLAR500T PO; +CLAR500T97 PO; +CLIN300C5 PO; +LIDO2.5C15 TOP; +PRED5TA PO
== END ==
LOC: M SMT 17:02
PROVIDERS: ATTEND Urology
DX: C67.9 Malignant neoplasm of bladder, unspecified (principal)

== ENCOUNTER → 2020-02-08 | Outpatient (CLI) | payer MEDICARE, OTHER ==
[~2020-02-08] MED LIST changes: +ISOVUE-300 61% 50ML VIAL (Q9967) As Ordered ONE; +LIDOCAINE 1% MDV 20ML VIAL As Ordered ONE; +VITA-243 PO; -VITA500T PO; +fentaNYL 100 MCG/2 ML INJECTION (J3010) As Ordered ONE
--- NOTE | 2020-02-08 12:27 | ROOPDOC ---
[facility] Report Of Operation Report of Operation DATE OF PROCEDURE: 02/08/20 PREPROCEDURE DIAGNOSES: End-stage renal disease with swelling left upper extremity POSTPROCEDURE DIAGNOSES: Same PROCEDURE: 1. Ultrasound-guided examination of AV anastomosis and ultrasound guided access left cephalic vein 2. Left upper extremity fistulogram and central venogram 3. Angioplasty left proximal cephalic vein into the subclavian vein with 9 x 80 Phelps balloon 4. Completion venogram SURGEON: Zeferino Galindo MD ANESTHESIA: Local anesthesia 4 mL lidocaine. Full sedation was not used for this patient because he had not been NPO all day. He did have a light breakfast. Therefore, we gave a small amount of analgesia only, and it was given during the angioplasty, for a total of 50 g of fentanyl IV. No Versed was given. The patient was alert and oriented during the entire procedure. Despite only giving analgesia and not full sedation, we still monitored the patient with the help of a registered nurse assigned to the Department of radiology using automated blood pressure, EKG, and pulse oximetry. INDICATION FOR PROCEDURE: Very pleasant 74-year-old gentleman with end-stage renal disease currently dialyzing with the left upper extremity brachiocephalic AV fistula. He had a recent rotator cuff injury on the ipsilateral arm, and frequently has arm swelling secondary to volume overload which improves with dialysis. He said his arm swelling did improve on this occasion after dialysis yesterday. However, the patient still has some swelling noted, likely due to the rotator cuff injury, but we would like to perform fistulogram to make sure he does not have recurrence of his proximal cephalic vein stenosis which could be contributing to arm swelling. Risks benefits and alternatives to a fistulogram and potential intervention were explained to the patient and he was agreeable to proceed. Informed consent was obtained. INTERPRETATION: 1. Under ultrasound, we examined the AV anastomosis and the cephalic vein near the AV anastomosis. Both are widely patent. 2. Fistulogram revealed a widely patent cephalic vein through the upper arm with no obvious signs of stenosis. There are some small branch veins off of the cephalic vein providing additional outflow through the axillary and subclavian veins. They do not appear to be stealing from the fistula and are helpful for outflow. However, there is a focal 90-95% stenosis in the cephalic vein near its junction with the subclavian vein. Proximal to this, the subclavian vein and central veins are widely patent. 3. After angioplasty of the proximal cephalic vein into the subclavian vein, there was widely patent flow with less than 10% residual stenosis. No embolization or extravasation was noted. There was an excellent thrill in the fistula. REPORT OF OPERATION: The patient was brought to the angiographic suite in stable condition. His left upper extremity was prepped and draped in a sterile fashion. A timeout was performed. Local anesthesia was administered to the skin and subcutaneous tissue over the cephalic vein near the AV anastomosis. Ultrasound was used to examine the AV anastomosis in the cephalic vein near it, and all are widely patent. No stenosis at the AV anastomosis was noted. We then utilized ultrasound to gain access with a microneedle to the cephalic vein near the AV anastomosis. A wire was passed through this access and a 4 Iranian sheath was placed and flushed with saline. We then advanced a Glidewire under fluoroscopic guidance into the central system. It was a little difficult to navigate the wire through the proximal cephalic vein but eventually we were able to do so. We then performed a fistulogram and central venogram. Please see interpretation above. We then exchange the sheath for 6 Iranian sheath and flushed with saline. We then advanced a 9 x 80 Phelps balloon across the proximal cephalic vein into the subclavian vein and an three-minute inflations was performed. Following this, there is widely patent inflow through to the central system with less than 10% residual stenosis at the proximal cephalic vein. No embolization or extravasation was noted. We then removed the balloon and the wire. Local anesthesia was administered from the sheath and a Prolene suture was placed in a [id number] pattern and secured as the sheath was removed. Pressure was held for 10 minutes for good hemostasis since the patient is on Plavix and did not hold the Plavix. Sterile dressings were applied good hemostasis was noted. The patient was then taken recovery in stable condition. He tolerated the procedure and the analgesia well. We will monitor him for 30 minutes postprocedure and remove the suture before he leaves. ESTIMATED BLOOD LOSS: Approximately 2 mL. COMPLICATIONS: None. PLAN: It is okay to use the patient's fistula for dialysis. We will remove the suture at the access site prior to his leaving recovery today. It is okay to resume home diet medications, including Plavix. I feel likely the patient's left arm swelling was due to recent rotator cuff injury and his typical volume overload before dialysis. He had dialysis yesterday, and said he noticed a marked improvement in swelling after. Today, he still has a little bit of swelling in the left arm, but it is not severe. However, I felt fistulogram was warranted because he had a stenosis in the proximal cephalic vein on previous fistulograms and a narrowing of the outflow could be contributing to the swelling. After treating that today, and with ongoing dialysis and volume control, hopefully as the patient shoulder heals the swelling will continue to improve. We appreciate the opportunity to participate in the care of this patient. ZEFERINO GALINDO MD Feb 08, 2020 12:27
[2020-02-08 12:45] VITALS: BP 143/62
== END ==
LOC: M IRPRO 10:26
PROVIDERS: ATTEND Surgery Vascular Surgery
DX: N18.6 End stage renal disease (principal); I12.9 Hypertensive chronic kidney disease with stage 1 through stage 4 chronic kidney disease, or unspecified chronic kidney disease; R22.32 Localized swelling, mass and lump, left upper limb
CPT/HCPCS: 36902; 99152; 99153; C1725; C1769; C1894; J1644; J3010; Q9967

== ENCOUNTER 2020-04-14 23:28 | Emergency (ER) | payer MEDICARE, OTHER ==
[~2020-04-14] VITALS: Ht 167.6 cm; Wt 90.9 kg
[~2020-04-14 23:28] MED LIST changes: -ISOVUE-300 61% 50ML VIAL (Q9967) As Ordered ONE; -LACT10SO29 PO; +LACT20EL PO; -LIDOCAINE 1% MDV 20ML VIAL As Ordered ONE; -fentaNYL 100 MCG/2 ML INJECTION (J3010) As Ordered ONE
[2020-04-15] MEDS ORDERED: HYDROMORPHONE HCL 0.5 MG/ 0.5 ML SYRINGE (J1170 PER 1) IM ONE (02:00)
[2020-04-15] MEDS ORDERED: predniSONE 20 MG TAB PO ONE (02:00)
[2020-04-15] MEDS ORDERED: PRED5TA PO (02:15)
[2020-04-15] MEDS ORDERED: PRED1TABL PO (02:15)
[2020-04-15] MEDS ORDERED: LACT20EL PO (02:15)
[2020-04-15] MEDS ORDERED: HYDR-3363 PO (02:15)
[2020-04-15] MEDS ORDERED: CALC1CAP PO (02:15)
[2020-04-15] MEDS ORDERED: MORP-69 PO (02:18)
[2020-04-15] MEDS ORDERED: OXYC10TA12 (02:18)
[2020-04-15] MEDS ORDERED: NARC1SPR (02:18)
[2020-04-15] MEDS ORDERED: SULF1TAB93 PO (02:18)
[2020-04-15] MEDS ORDERED: OXYC-1 PO (02:25)
[2020-04-15] MEDS ORDERED: PRED20TA PO (02:25)
[2020-04-15 02:51] VITALS: BP 114/82
[2020-04-20] MEDS ORDERED: VITAD1000T PO (06:22)
== END 2020-04-15 02:55 | disposition home or self-care (01) ==
LOC: M ED 23:28
DX: M16.12 Unilateral primary osteoarthritis, left hip (principal)
CPT/HCPCS: 96372; 99283; J1170

== ENCOUNTER 2020-04-19 22:29 | Inpatient (IN) | payer MEDICARE, OTHER ==
[~2020-04-19] VITALS: Ht 167.6 cm; Wt 90.4 kg
[~2020-04-19 22:29] MED LIST changes: +AMLO1TAB24 PO; -AMLO5TAB6 PO; +CALC1CAP PO; -CLIN150C14 PO; +CLIN150C15 PO; -CLIN300C5 PO; +CLIN300C6 PO; +COLC0.6T47 PO; -COLC1TAB13 PO; -MOVA1TAB2 PO; -NALD0.2T PO; +NALO25TA PO; +NARC1SPR; +OXYC-1 PO; +OXYC10TA12; +SULF1TAB93 PO; +SYMP0.2T2 PO; -VITA1TAB23 PO; +VITA250T20 PO
[2020-04-20] MEDS ORDERED: ISOVUE-370 76% 100ML VIAL As Ordered ONE (00:08)
[2020-04-20] MEDS ORDERED: fentaNYL 100 MCG/2 ML INJECTION (J3010) IV ONE ×2 (00:30)
[2020-04-20 00:37] LABS: BASO % 0.1 % (0.0-1.0); EOS % 0.2 % (0.0-3.0); HEMATOCRIT 38.6 % (42.0-52.0); LYMPH # 1.2 10^3/uL (1.5-5.0); LYMPH % 7.7 % (24.0-44.0); MEAN CORPUSCULAR HEMOGLOBIN 32.3 pg (27.0-33.0); MEAN CORPUSCULAR HGB CONC 31.1 g/dl (32.0-36.5); MEAN CORPUSCULAR VOLUME 103.8 fl (80.0-96.0); MONO # 1.3 10^3/uL (0.0-0.8); NEUTROPHILS % 81.1 % (36.0-66.0); PLATELET COUNT, AUTOMATED 260 10^3/uL (150-450); RED BLOOD COUNT 3.72 10^6/uL (4.30-6.10); WHITE BLOOD COUNT 16.1 10^3/uL (4.0-10.0)
[2020-04-20 00:50] LABS: ALBUMIN 3.6 GM/DL (3.2-5.2); BILIRUBIN,DIRECT 0.2 MG/DL (0.0-0.2); BILIRUBIN,TOTAL 0.3 MG/DL (0.2-1.0); C REACTIVE PROTEIN QUANTITATIV 0.44 MG/DL (0.00-0.30)
--- NOTE | 2020-04-20 00:51 | REPVR ---
PROCEDURE INFORMATION: Exam: CT Abdomen And Pelvis With Contrast Exam date and time: 04/19/2020 11:58 PM Age: 74 years old Clinical indication: Pain; Other: Perineum; Additional info: Perineum pain, low L flank pain TECHNIQUE: Imaging protocol: Computed tomography of the abdomen and pelvis with intravenous contrast. Radiation optimization: All CT scans at this facility use at least one of these dose optimization techniques: automated exposure control; mA and/or kV adjustment per patient size (includes targeted exams where dose is matched to clinical indication); or iterative reconstruction. Contrast material: ISO; Contrast volume: 100 ml; Contrast route: INTRAVENOUS (IV); COMPARISON: CT ANGIO ABD/PEL 09/30/2019 11:28 AM FINDINGS: Tubes, catheters and devices: Neurostimulator generator in the subcutaneous fat of the left lower back. Lungs: Dependent and linear atelectasis or scarring at the right base. Pleural space: Trace right pleural effusion. Heart: Cardiomegaly. Liver: Normal. No mass. Gallbladder and bile ducts: Cholelithiasis. Gallbladder is borderline distended. Correlate clinically for evidence of acute cholecystitis. Pancreas: Normal. No ductal dilation. Spleen: Normal. No splenomegaly. Adrenals: Mild bilateral adrenal hyperplasia. Kidneys and ureters: Mild bilateral renal atrophy. Nonspecific bilateral perinephric fat stranding. Stomach and bowel: Moderate amount of stool in the colon. Appendix: No evidence of appendicitis. Intraperitoneal space: Unremarkable. No free air. No significant fluid collection. Vasculature: Atherosclerotic disease of the abdominal aorta. Lymph nodes: Unremarkable. No enlarged lymph nodes. Bladder: Unremarkable as visualized. Reproductive: Unremarkable as visualized. Bones/joints: Subacute to chronic fracture deformities involving multiple bilateral ribs. Status post median sternotomy and probably CABG. Osteopenia. Severe multilevel degenerative disease and facet hypertrophy of the lumbar spine. Compression deformity L2. Stenosis of the spinal canal and neural foramina at multiple levels. Suggestion of Paget disease involving sacrum. Probably subacute fracture of the left medial acetabular wall with left femoral head collapse and acetabular protrusion. Left hip joint effusion. Soft tissues: Mild diastasis of ventral abdominal wall. Fat containing umbilical hernia. IMPRESSION: 1. Probably subacute fracture of the left medial acetabular wall with left femoral head collapse and acetabular protrusion. Left hip joint effusion. 2. Cholelithiasis. Gallbladder is borderline distended. Correlate clinically for evidence of acute cholecystitis. Electronically signed by: Shiv Samayoa On 04/20/2020 00:51:12 AM
[2020-04-20] MEDS ORDERED: HYDROMORPHONE HCL 0.5 MG/ 0.5 ML SYRINGE (J1170 PER 1) IV ONE (01:15)
[2020-04-20 01:16] LABS: ERYTHROCYTE SEDIMENTATION RATE 57 mm/hr (0-20)
--- NOTE | 2020-04-20 01:16 | REPVR ---
PROCEDURE INFORMATION: Exam: US Scrotum and US Duplex Artery and Vein, Scrotum, Complete Exam date and time: 04/19/2020 12:57 AM Age: 74 years old Clinical indication: Pain; Other: Hip; Additional info: Pain posterior, redness TECHNIQUE: Imaging protocol: Real-time ultrasound of the scrotum. Real-time duplex ultrasound scan of the arterial and venous flow of the scrotum with B-mode, color Doppler flow and spectral waveform analysis. Complete exam. Duplex images required to evaluate vascular conditions. COMPARISON: No relevant prior studies available. FINDINGS: Right testicle: Right testicle measures 3.4 x 1.9 x 2.5 cm. Right microlithiasis. Normal waveforms. Left testicle: Left testicle measures 3.2 x 1.7 x 2.2 cm. Normal waveforms. Epididymides: Right epididymal head measures 1 cm in diameter. Left epididymal head measures 1.3 cm in diameter. Scrotum: Normal. IMPRESSION: No evidence of testicular torsion bilaterally. Right microlithiasis. Electronically signed by: Shiv Samayoa On 04/20/2020 01:16:14 AM
[2020-04-20] MEDS: HYDROMORPHONE HCL 0.5 MG/ 0.5 ML SYRINGE (J1170 PER 1) IV PRN ×2 (01:58→02:50)
[2020-04-20] MEDS ORDERED: ACETAMINOPHEN TAB 650MG DOSE (2X325MG) PO PRN (02:30)
[2020-04-20 02:35] LABS: INR 1.06; PROTHROMBIN TIME 13.5 SECONDS (11.8-14.0)
--- NOTE | 2020-04-20 02:37 | HPEPDOC ---
General Date of Admission 04/20/20 Date of Service: Apr 20, 2020 Chief Complaint The patient is a 74-year-old male admitted with a reason for visit of Groin pain. Source: Patient Exam Limitations: No limitations Timing/Duration: Day(s) Severity: Moderate History of Present Illness Patient is 74 years old male with past medical history of type 2 diabetes, end- stage renal diseases on dialysis, diastolic CHF, mitral valve prosthesis and history of aortic stenosis presented hospital with severe left hip pain. Patient stated that for past 1 month having increased left hip pain with radiation to the groin. For past week he was not able to walk due to pain. In emergency room patient was found on CT Probably subacute fracture of the left medial acetabular wall with left femoral head collapse and acetabular protrusion. Left hip joint effusion. Dr. Pabon was contacted by phone, he recommended admit patient for further inpatient management. Home Medications Scheduled Atorvastatin Calcium (Atorvastatin Calcium) 20 Mg Tablet, 20 MG PO QHS, (Reporte d) Ca/D3/Mag Ox/Zinc/Payloader Machine Operator/Uche/Bor (Calcium 600-D3 Plus Caplet) 1 Each Tablet, 1 TAB PO QHS, (Reported) Calcitriol (Calcitriol) 0.25 Mcg Capsule, 0.25 MCG PO 3XW, (Reported) RECEIVES AT DIALYSIS ON FRIDAY, FRIDAY AND FRIDAY Calcium Acetate (Calcium Acetate) 667 Mg Capsule, 667 MG PO TID, (Reported) Carvedilol (Carvedilol) 6.25 Mg Tablet, 6.25 MG PO BID, (Reported) Clopidogrel Bisulfate (Clopidogrel) 75 Mg Tablet, 75 MG PO DAILY, (Reported) Docusate Sodium (Docusate Sodium) 100 Mg Capsule, 100 MG PO BID, (Reported) Duloxetine Hcl (Cymbalta) 60 Mg Capsule.dr, 60 MG PO QHS, (Reported) Ergocalciferol (Vitamin D2) (Vitamin D2) 2,000 Unit Tablet, 4,000 UNITS PO DAILY, (Reported) Febuxostat (Uloric) 80 Mg Tablet, 80 MG PO Q2D, (Reported) AT BEDTIME Lactobacillus Acidophilus (Probiotic) 1 Each Capsule, 1 CAP PO QHS, (Reported) Lidocaine/Prilocaine (Lidocaine-Prilocaine Cream) 2.5%/2.5% Cream..g., 1 APPLIC TOP 3XW, (Reported) APPLY TO PORT SITE BEFORE DIALYSIS DAYS. COVER WITH SARAN WRAP Multivitamins (Thera M Plus Tablet) 1 Each Tablet, 1 TAB PO DAILY, (Reported) Naldemedine Tosylate (Symproic) 0.2 Mg Tablet, 0.2 MG PO DAILY, (Reported) Prednisone (Prednisone) 20 Mg Tablet, 20 MG PO ASDIRECTED 3 po day 1-3; 2 po day 4-7; 1 po day 8-10 Tiotropium [place] (Spiriva Respimat) 4 Gm Mist.inhal, 2 PUFFS INH DAILY, (Reported) Ubidecarenone (Co Q-10) 200 Mg Capsule, 200 MG PO BID, (Reported) Scheduled PRN Albuterol Sulf (Albuterol Sulfate) 2.5 Mg/3 Ml Vial.neb, 2.5 MG INH Q2H PRN for SOB/WHEEZING, (Reported) Albuterol Sulfate (Proair Hfa) 8.5 Gm Hfa.aer.ad, 2 PUFF INH QID PRN for SHORTNESS OF BREATH, (Reported) Alprazolam (Alprazolam) 0.25 Mg Tablet, 0.25 MG PO TID PRN for ANXIETY, (Reported) Baclofen (Baclofen) 10 Mg Tablet, 10 MG PO BID PRN for MUSCLE SPASMS, (Reported) Benzonatate (Benzonatate) 100 Mg Capsule, 100 MG PO TID PRN for COUGH, (Reported) Glycerin (Adult Glycerin) 1 Each Supp.rect, 1 EA ID DAILY PRN for CONSTIPATION, (Reported) Hydroxyzine HCl (Hydroxyzine HCl) 25 Mg Tablet, 25 MG PO TID PRN for ITCHING, (Reported) Hydroxyzine HCl (Hydroxyzine HCl) 25 Mg Tablet, 25 MG PO TID PRN for ITCHING, (Reported) Lactulose (Lactulose) 10 Gm/15 Ml Solution, 30 ML PO DAILYPRN PRN for CONSTIPATION, (Reported) Oxycodone Hcl (Oxycodone HCl) 15 Mg Tablet, 1 TAB PO QIDP PRN for pain Miscellaneous Medications Morphine Sulfate (Morphine Sulfate ER) 15 Mg Tablet.er, (Reported) Naloxone HCl (Narcan) 4 Mg Mission, (Reported) Sulfamethoxazole/Trimethoprim (Sulfamethoxazole-Tmp Ds Tablet) 1 Each Tablet, (Reported) Allergies Coded Allergies: aspirin (Verified Allergy, Severe, LIPS SWELL, 03/29/19) Penicillins (Verified Allergy, Intermediate, RASH, 04/15/19) ampicillin (Verified Allergy, Intermediate, HIVES, 03/17/19) ceftriaxone (Verified Allergy, Unknown, UNKNOWN REACTION, 04/09/19) Past Medical History Medical History 1. Longstanding history of type 2 diabetes. 2. End-stage renal disease requiring maintenance hemodialysis. 3. History of anemia of chronic kidney disease. 4. History of chronic diastolic congestive heart failure. 5. History of mitral valve prosthesis and history of aortic stenosis. 6. History of pulmonary hypertension. 7. History of coronary artery disease, status post quadruple bypass. 8. History of bladder cancer, status post transurethral resection of bladder tumor (TURBT). 9. Gout. 10. History of restrictive lung disease. 11. History of obstructive sleep apnea. 12. History of chronic back pain and status post spinal stimulator implant. 13. Severe anxiety. 14. History of left elbow infection. Surgical History 15. History of right knee surgery. 16. History of left arm arteriovenous (AV) fistula. 17. History of Perma-Cath. Family History I personally reviewed family history and found not pertinent Social History * Smoker: Denies Alcohol: Denies Drugs: denies A-FIB/CHADSVASC A-FIB History Current/History of A-Fib/PAF?: No Current PO Anticoag Therapy: No Review of Systems Constitutional: Denies: Chills, Fever Eyes: Denies: Pain, Vision change ENT: Denies: Head Aches Skin: Denies: Lesions, Jaundice Pulmonary: Denies: Dyspnea Cardiovascular: Denies: Chest Pain, Palpitations Gastrointestinal: Denies: Nausea, Vomiting Genitourinary: Denies: Dysuria, Frequency Hematologic: Denies: Bruising, Bleeding Excessively Endocrine: Denies: Polydipsia, Polyphagia Musculoskeletal: Reports: Leg Pain; Denies: Neck Pain Neurological: Denies: Weakness Psych: Reports: Mood Normal Physical Examination General Exam: Positive: Alert, Cooperative Eye Exam: Positive: PERRLA ENT Exam: Positive: Atraumatic Neck Exam: Positive: Supple; Negative: JVD Chest Exam: Positive: Clear to auscultation Heart Exam: Positive: Rate Normal Telemetry: Positive: No significant arrhythmia Abdomen Exam: Positive: Normal bowel sounds Extremity Exam: Positive: Other (tenderness over left hip area); Negative: Clubbing Skin Exam: Positive: Rash (mild erythema of the right leg) Neuro Exam: Positive: Cranial Nerves 3-12 NL Psych Exam: Positive: Mental status NL Vital Signs Vital Signs Date Time Temp Pulse Resp B/P (MAP) Pulse Ox O2 Delivery O2 Flow Rate FiO2 04/20/20 01:58 97.4 83 18 137/63 94 Room Air Laboratory Data Labs 24H Laboratory Tests 2 04/20/20 00:02: Immature Granulocyte % (Auto) 2.9, Neutrophils (%) (Auto) 81.1H, Lymphocytes (%) (Auto) 7.7L, Monocytes (%) (Auto) 8.0H, Eosinophils (%) (Auto) 0.2, Basophils (%) (Auto) 0.1, Neutrophils # (Auto) 13.0H, Lymphocytes # (Auto) 1.2L, Monocytes # (Auto) 1.3H, Eosinophils # (Auto) 0.0, Basophils # (Auto) 0.0, Nucleated Red Blood Cells % (auto) 0.0, Erythrocyte Sedimentation Rate 57H, Total Bilirubin 0.3, Direct Bilirubin 0.2, Aspartate Amino Transf (AST/SGOT) 28, Alanine Aminotransferase (ALT/SGPT) 31, Alkaline Phosphatase 165H, C-Reactive Protein, Quantitative 0.44H, Total Protein 7.0, Albumin 3.6, Albumin/Globulin Ratio 1.1, Lipase 246 04/20/20 00:07: POC Glucose (Misc Panel) 104, POC Sodium (Misc Panel) 136, POC Potassium (Misc Panel) 3.7, POC Chloride (Misc Panel) 94L, POC Total CO2 (Misc Panel) 34.0H, POC Blood Urea Nitrogen (Misc Panel 38H, POC Ionized Calcium (Misc Panel) 4.5, POC Creatinine (Misc Panel) 3.8H, POC Hematocrit (Misc Panel) 38.0 CBC/BMP Laboratory Tests 04/20/20 00:02 Assessment/Plan Patient is 74 years old male with past medical history of type 2 diabetes, end- stage renal diseases on dialysis, diastolic CHF, mitral valve prosthesis and history of aortic stenosis presented hospital with severe left hip pain. Patient stated that for past 1 month having increased left hip pain with radiation to the groin. For past week he was not able to walk due to pain. In emergency room patient was found on CT Probably subacute fracture of the left medial acetabular wall with left femoral head collapse and acetabular protrusion. Left hip joint effusion. Dr. Pabon was contacted by phone, he recommended admit patient for further inpatient management. Problems (1) Hip fracture, left Status: Acute Problem Text: Most likely secondary to osteoporosis Orthopedic team will evaluate patient in the morning PT/OT (2) End-stage renal disease Status: Chronic Problem Text: Continue dialysis (3) CHF (congestive heart failure) Status: Acute Problem Text: Not in acute exacerbation Cardiac diet I's and O's (4) CAD (coronary artery disease) Status: Chronic Problem Text: Continue home cardioprotective medications Plan / VTE VTE Prophylaxis Ordered?: Yes JUAN JOSE LEVY DO Apr 20, 2020 02:37
[2020-04-20] MEDS ORDERED: LIDOCAINE 5% (LIDODERM) PATCH TD ONE (03:15)
[2020-04-20] MEDS ORDERED: BACLOFEN 10 MG TAB PO ONE (03:15)
[2020-04-20] MEDS ORDERED: traMADol 50 MG TAB PO ONE (03:15)
[2020-04-20 04:39] VITALS: BP 140/65
[2020-04-20] MEDS ORDERED: OXYC-1 PO (05:13)
[2020-04-20] MEDS ORDERED: PRED20TA PO (05:13)
[2020-04-20 06:00] VITALS: BP 135/66
[2020-04-20] MEDS ORDERED: COQ-100C5 PO (06:22)
[2020-04-20] MEDS ORDERED: D31000TA2 PO (06:22)
[2020-04-20] MEDS ORDERED: ACET25TA12 PO (06:23)
[2020-04-20] MEDS ORDERED: TRIPOIN9 TOP (06:31)
[2020-04-20] MEDS: HEPARIN SOD (PORCINE) 5000UNITS/ML 1ML VIAL/SYRINGE SC SCH ×2 (11:29→23:21)
[2020-04-20] MEDS ORDERED: BACLOFEN 10 MG TAB PO PRN (11:45)
[2020-04-20] MEDS ORDERED: oxyCODONE 5MG TAB PO PRN (11:45)
[2020-04-20] MEDS ORDERED: ALPRAZolam 0.25 MG TAB PO PRN (11:45)
[2020-04-20] MEDS ORDERED: hydrOXYzine 25 MG TAB PO PRN (11:45)
[2020-04-20] MEDS: CLOPIDOGREL 75 MG TAB PO SCH (12:54)
[2020-04-20] MEDS: CARVedilol 6.25 MG TAB PO SCH ×2 (12:54→23:16)
[2020-04-20] MEDS: MULTIVITAMINS/MINERALS THERAP 1 TAB PO SCH (12:54)
[2020-04-20] MEDS: MORPHINE 15 MG SA TAB PO SCH ×2 (12:54→23:18)
[2020-04-20] MEDS: DOCUSATE SODIUM 100MG CAPSULE PO SCH ×2 (12:54→23:16)
[2020-04-20] MEDS: VITAMIN D 1,000 INTERNATIONAL UNITS TABLET PO SCH (12:55)
[2020-04-20] MEDS: predniSONE 20 MG TAB PO SCH ×2 (12:55→23:17)
[2020-04-20] MEDS: CALCIUM ACETATE 667MG GELCAP PO SCH ×2 (12:55→18:00)
[2020-04-20 14:00] VITALS: BP 130/69
[2020-04-20] MEDS ORDERED: **NOTE PATIENT COMMENT** MISC XX SCH (15:30)
[2020-04-20] MEDS: BACTRIM 80MG/400MG TAB PO SCH ×2 (15:48→23:16)
[2020-04-20] MEDS: NEOSPORIN TOP OINT 15GM TOP SCH (15:52)
[2020-04-20] MEDS ORDERED: KETOROLAC 30 MG/ML 1ML VIAL IV ONE (16:00)
--- NOTE | 2020-04-20 16:30 | CR ---
DATE OF CONSULTATION: 04/20/2020 CHIEF COMPLAINT: Left hip pain. HISTORY OF PRESENT ILLNESS: This 74-year-old male presents with worsening hip pain over the last month. It was quite severe recently, more in the groin. He states it started all in July. He is here with his , Tatianna, who is giving me most of the history in terms left hip. He has been on oral steroids 6 mg a day for skin rashes. He had a CT scan ordered by the emergency department that showed left hip femoral head collapse and acetabular protrusion, and I was consulted to see the patient. PAST MEDICAL HISTORY: Per the hospitalist note. He has longstanding type 2 diabetes, end-stage renal disease, he is on hemodialysis three times a week. He has got anemia of chronic disease, chronic diastolic congestive heart failure, mitral valve prolapse, aortic stenosis, pulmonary hypertension, coronary artery disease, post quadruple bypass, history of bladder cancer, status post transurethral resection of the prostate (TURP), gout, restrictive lung disease, obstructive sleep apnea, chronic back pain, post spinal stimulator implant, severe anxiety, left elbow infection. SURGICAL HISTORY: Right knee surgery, left arm arteriovenous (AV) fistula, history of Perma-Cath. MEDICATIONS: Atorvastatin, calcium, calcitriol, carvedilol, clopidogrel, docusate, duloxetine, vitamin D2, febuxostat, lidocaine cream, multivitamins, naldemedine tosylate, prednisone, tritropium, CoQ-10 ALLERGIES: To ASPIRIN, PENICILLIN, AMPICILLIN, CEFTRIAXONE. SOCIAL HISTORY: Denies smoking, drug use or alcohol. PHYSICAL EXAMINATION: Vital signs are stable. Extremely somnolent. He arouses temporarily. There is groin pain with hip internal/external rotation, quite difficult to perform full exam given that he is quite somnolent. He has pitting edema in his lower extremities. There are signs of venous stasis. His foot is warm. There is a weak dorsalis pedis pulse. He is able to dorsiflex, plantar flex the foot. There is a lidocaine patch on his left hip but no obvious overlying redness, ecchymosis, or deformity. CT abdomen and pelvis with IV contrast was reviewed by myself, as well as the radiologist. There is a probable subacute fracture of the left medial acetabular wall with left femoral head collapse and acetabular protrusion, severe [id number] osteoarthritis, and left hip joint effusion. ASSESSMENT/PLAN: This 74-year-old man with multiple medical comorbidities has severe left hip osteoarthritis with likely new femoral head collapse and acetabular protrusion. He may not be a surgical candidate, and this would be a complex total hip arthroplasty. I will contact Dr. Melchor who performs total hip arthroplasties to have his opinion on this man's care. I will update the patient and his as I obtain further information.
[2020-04-20] MEDS ORDERED: SIMETHICONE 80MG CHEW TAB PO SCH (17:00)
[2020-04-20 21:30] VITALS: BP 107/61
[2020-04-20] MEDS ORDERED: NALOXONE INJ 0.4MG/1ML VIAL (J2310 PER 1MG) IV STA (21:40)
[2020-04-20] MEDS ORDERED: LORazepam 2 MG/ML VIAL IV STA ×2 (22:08→22:28)
--- NOTE | 2020-04-20 22:14 | CR ---
DATE OF CONSULTATION: 04/20/2020 REQUESTING PHYSICIAN: Dr. Alicia Vallejo CONSULTING PHYSICIAN: Dr. Bozena Carrasco REASON FOR CONSULTATION: Management of end-stage renal disease and hemodialysis. CHIEF COMPLAINT: Severe left-sided hip pain. HISTORY OF PRESENT ILLNESS: Mr. Maik Mckeon is a 74-year-old male with past medical history of end-stage renal disease, on hemodialysis every Friday, Friday, Friday, diabetes mellitus type 2, chronic diastolic congestive heart failure, multiple other comorbidities as mentioned below. He presented to the hospital yesterday with severe persistent left hip pain, inability to walk around. He got a CT scan of the hip done, which showed a left hip fracture. He was admitted to the hospital overnight. Nephrology service was called for further help in the management of this patient. The patient's last hemodialysis was done yesterday, but because of his severe pain, it was cut short and he only finished 2 hours and 15 minutes of dialysis. I saw and evaluated the patient today morning at the bedside. He was sitting on the sofa, but he reports that he is unable to move around. He denies any fever, chills or rigors. PAST MEDICAL HISTORY: Past medical history of end-stage renal disease, on hemodialysis every Friday, Friday, Friday, anemia secondary to end-stage renal disease, diabetes mellitus type 2, chronic diastolic congestive heart failure, history of mitral valve prosthesis and aortic stenosis, pulmonary hypertension, coronary artery disease, status post coronary artery bypass grafting, history of bladder cancer, status post transurethral resection of bladder tumor, chronic gout secondary to chronic kidney disease, restrictive lung disease, obstructive sleep apnea, history of chronic back pain, status post spinal stimulator implant, anxiety disorder. PAST SURGICAL HISTORY: Status post right knee surgery, status post left arm arteriovenous (AV) fistula, history of tunneled dialysis catheter placement in the past. ALLERGIES: He is allergic to PENICILLINS, ASPIRIN and CEFTRIAXONE FAMILY HISTORY: No significant family history of end-stage renal disease requiring hemodialysis. SOCIAL HISTORY: He denies any smoking, illicit drug abuse or alcohol abuse. REVIEW OF SYSTEMS: Constitutional: He denies any fevers or chills. Eyes: He denies any double vision, blurry vision. Ears, Nose, Throat (ENT): Denies any dysphagia, odynophagia. Cardiovascular: He denies any chest pain or palpitations. Respiratory: He denies any shortness of breath. Gastrointestinal (GI) Denies any nausea or vomiting. Genitourinary: He reports decreased urine output. Musculoskeletal: He reports severe left hip pain and inability to walk. Skin: He reports blisters in the lower extremities and lower extremity edema. Central nervous system (ART HISTORY PROFESSOR): He denies any strokes or seizures. Psychiatric: He denies any depression or anxiety. Hematology/Oncology: He denies any easy bleeding or bruising. Endocrine: He reports a history of diabetes mellitus, type 2. All other review of systems is negative. PHYSICAL EXAMINATION Vital signs: Temperature is 97.6 degrees Fahrenheit, blood pressure 130/69, pulse is 86, respiratory rate of 18, saturating 93% on room air. Head and neck exam: Extraocular muscles intact. Pupils equally round and reactive to light. Mucous membranes are moist. Neck is supple. There is no jugular venous distention (JVD). Cardiovascular: S1, S2, regular rate, 2+ edema of the bilateral lower extremities. Respiratory: Chest is clear to auscultation bilaterally. Bilateral equal air entry. No rales or rhonchi. Abdomen: Soft, positive bowel sounds, nontender, mild amount of abdominal wall edema was noted. Musculoskeletal: The patient has 2+ edema of the bilateral lower extremities. He has decreased range of movement of the left leg because of hip pain. ART HISTORY PROFESSOR: No focal deficit. Power is 5/5 in bilateral upper extremities. LAB REVIEW: CBC showed a WBC of 16.1, hemoglobin is 12, platelets are 260. BMP showed sodium 136, potassium 3.7, chloride 94, bicarbonate 34, BUN 38, creatinine is 3.8, total bilirubin 0.3, C-reactive protein 0.4, albumin is 3.6. IMAGING STUDIES: CT scan of the abdomen and pelvis was done, which showed subacute fracture of the left medial acetabular wall with left femoral head collapse and acetabular protrusion, left hip joint effusion. CURRENT INPATIENT MEDICATIONS: The patient's medications include Lidoderm patch, Tylenol as needed, Xanax as needed, Lipitor 20 mg nightly, baclofen 10 mg by mouth twice a day as needed for muscle spasm, PhosLo 667 mg by mouth with meals, Coreg 6.25 mg by mouth twice a day, Plavix 75 mg by mouth daily, Colace 100 mg by mouth twice a day, Cymbalta 60 mg nightly, Uloric 80 mg by mouth every other day, Dilaudid 0.5 mg IV times one dose, MS Contin 15 mg by mouth twice a day, multivitamin, oxycodone 5 mg by mouth every 6 hours as needed for pain, prednisone 20 mg by mouth twice a day, tramadol 50 mg one dose, Bactrim one tablet twice a day, vitamin D 4000 units by mouth daily. ASSESSMENT: A 74-year-old male with past medical history of end-stage renal disease on hemodialysis every Friday, Friday, Friday, history of depression nd anxiety, hypertension, chronic diastolic congestive heart failure, chronic gout secondary to chronic kidney disease, admitted at this time because of left femoral head collapse and acetabular fracture. PLAN: 1. End-stage renal disease. The patient's regular dialysis days are Friday, Friday, Friday. His dialysis was cut short yesterday because of pain. No urgent need of dialysis today. He will be dialyzed tomorrow morning according to his regular schedule. 2. Left femoral head collapse and fracture of left acetabular wall. The patient is currently on pain medication. Also, orthopedic surgery is on board, and they are recommending possible left total hip arthroplasty. 3. Chronic diastolic congestive heart failure. The patient still has signs of fluid overload. He will be dialyzed tomorrow morning and if needed, an extra session of dialysis will be done on Friday as well. 4. 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 Continue current dose of Uloric every other day. 5. Chronic kidney disease mineral bone disease. Continue current dose of PhosLo 667 mg by mouth with meals. 6. Coronary artery disease, status post coronary artery bypass grafting. Continue current dose of Lipitor. Continue Plavix. 7. Anemia in end-stage renal disease. Hemoglobin level is stable at 12. No need of Aranesp administration at this time. Thank you for involving me in the care of this patient. I shall be happy to follow the patient along with you tomorrow morning.
[2020-04-20 22:31] LABS: VENOUS BASE EXCESS -2.8 (-2.0-2.0); VENOUS HCO3 23.7 MEQ/L (23.0-27.0); VENOUS O2 SATURATION 98.9 % (60.0-80.0); VENOUS PARTIAL PRESSURE CO2 48.4 mmHg (38.0-50.0); VENOUS PARTIAL PRESSURE O2 144.6 mmHg (30.0-50.0); VENOUS PH 7.308 UNITS (7.330-7.430); VENOUS STANDARD HCO3 22.1 MEQ/L; VENOUS TOTAL CO2 25.2 MEQ/L (24.0-28.0)
[2020-04-20 22:41] LABS: HEMATOCRIT 37.3 % (42.0-52.0); HEMOGLOBIN 11.4 g/dl (13.5-17.5); MEAN CORPUSCULAR HEMOGLOBIN 32.5 pg (27.0-33.0); MEAN CORPUSCULAR HGB CONC 30.6 g/dl (32.0-36.5); MEAN CORPUSCULAR VOLUME 106.3 fl (80.0-96.0); PLATELET COUNT, AUTOMATED 282 10^3/uL (150-450); RED BLOOD COUNT 3.51 10^6/uL (4.30-6.10); WHITE BLOOD COUNT 23.3 10^3/uL (4.0-10.0)
[2020-04-20] MEDS ORDERED: diphenhydrAMINE 50MG/ML VIAL (J1200) IV STA (22:43)
[2020-04-20] MEDS ORDERED: diphenhydrAMINE 50MG/ML VIAL (J1200) As Ordered ONE (22:44)
[2020-04-20 22:55] LABS: ALBUMIN 3.4 GM/DL (3.2-5.2); BILIRUBIN,TOTAL 0.2 MG/DL (0.2-1.0); CALCIUM LEVEL 8.7 MG/DL (8.8-10.2); CREATININE FOR GFR 4.97 MG/DL (0.70-1.30); GLOMERULAR FILTRATION RATE 12.2 (>42); POTASSIUM SERUM 4.7 MEQ/L (3.5-5.1); TOTAL PROTEIN 6.7 GM/DL (6.4-8.2)
[2020-04-20 23:10] VITALS: BP 143/38
[2020-04-20] MEDS: ATORVASTATIN 20 MG TAB PO SCH (23:17)
[2020-04-20] MEDS: DULoxetine 30 MG CAP (CYMBALTA) PO SCH (23:17)
[2020-04-20] MEDS: FEBUXOSTAT 40 MG TABLET (ULORIC) PO SCH (23:21)
[2020-04-20] MEDS ORDERED: ACETAMINOPHEN *IV* 1,000 MG in IV 1 EA IV ONE (23:45)
[2020-04-20] MEDS ORDERED: ACETAMINOPHEN *IV* 650 MG in IV 1 EA IV ONE (23:45)
[2020-04-21] VITALS (17 sets, daily range): BP systolic 92–140; BP diastolic 51–89
[2020-04-21] MEDS ORDERED: HALOPERIDOL 5MG/ML VIAL (J1630 PER 1) IM ONE ×2 (00:30→22:30)
[2020-04-21 05:23] LABS: HEMATOCRIT 30.7 % (42.0-52.0); HEMOGLOBIN 9.8 g/dl (13.5-17.5); MEAN CORPUSCULAR HGB CONC 31.9 g/dl (32.0-36.5); MEAN CORPUSCULAR VOLUME 103.4 fl (80.0-96.0); RED BLOOD COUNT 2.97 10^6/uL (4.30-6.10); WHITE BLOOD COUNT 14.9 10^3/uL (4.0-10.0)
[2020-04-21 05:43] LABS: PLATELET COUNT, AUTOMATED 173 10^3/uL (150-450)
[2020-04-21 06:00] LABS: CALCIUM LEVEL 8.3 MG/DL (8.8-10.2); CREATININE FOR GFR 5.28 MG/DL (0.70-1.30); GLOMERULAR FILTRATION RATE 11.4 (>42); MAGNESIUM LEVEL 2.4 MG/DL (1.8-2.4); POTASSIUM SERUM 3.6 MEQ/L (3.5-5.1)
[2020-04-21] MEDS: CALCIUM ACETATE 667MG GELCAP PO SCH (08:00)
[2020-04-21] MEDS: predniSONE 20 MG TAB PO SCH (09:00)
[2020-04-21] MEDS: VITAMIN D 1,000 INTERNATIONAL UNITS TABLET PO SCH (09:00)
[2020-04-21] MEDS: CARVedilol 6.25 MG TAB PO SCH (09:00)
[2020-04-21] MEDS: DOCUSATE SODIUM 100MG CAPSULE PO SCH (09:00)
[2020-04-21] MEDS: MULTIVITAMINS/MINERALS THERAP 1 TAB PO SCH (09:00)
[2020-04-21] MEDS: CLOPIDOGREL 75 MG TAB PO SCH (09:00)
[2020-04-21] MEDS: BACTRIM 80MG/400MG TAB PO SCH (09:00)
--- NOTE | 2020-04-21 10:14 | IPNPDOC ---
Subjective Date Seen The patient was seen on 04/21/20. Subjective Chief Complaint/HPI Patient is sedated, arousable with only painful stimuli, but his vital signs are stable and he seems in no apparent distress General: Reports: ROS Unobtainable Objective Physical Examination Eye Exam: Positive: Other Eye Symptoms (miotic pupils. Noted bilaterally) ENT Exam: Positive: Atraumatic Neck Exam: Positive: Supple Chest Exam: Positive: Clear to auscultation Heart Exam: Positive: Rate Normal, Normal S1, Normal S2 Abdomen Exam: Positive: Normal bowel sounds, Soft Extremity Exam: Positive: Normal pulses, Other Assessment /Plan Problems (1) Acute hyperactive delirium due to multiple etiologies Status: Acute Problem Text: Secondary to multiple etiology including acute fracture, pain, multiple pain meds and overall muscle relaxants Patient received Narcan last night for reversal of opioid adverse effects including acute respiratory failure with hypoxia secondary to respiratory depression Patient became very agitated after receiving Narcan and later was given IV, Tylenol and Benadryl with some relief of his agitation He is currently sedated but stable arousable only on painful stimuli, continue close monitoring. Oxygen supplement he is only on 1 L nasal cannula Hold all by mouth meds till patient is awake, alert, oriented 3 Will change prednisone to Solu-Medrol 60 mg IV every 8 hours and 80 when 1 mg at every 6 hours when necessary Will restart home meds once he is completely awake and alert Can be transferred to PCU if a bed is required in ICU Nothing by mouth DVT prophylaxis with heparin Awaiting orthopedic evaluation (2) Hip fracture, left Status: Acute Problem Text: Most likely secondary to osteoporosis Awaiting orthopedic evaluation by Dr. Todd PT, OT eval (3) Hyperlipidemia Status: Chronic Problem Text: Hold by mouth meds (4) Hypertension Status: Acute Problem Text: Metoprolol tartrate 5 mg IV every 12 hours with holding parameters (5) ESRD (end stage renal disease) Status: Chronic Problem Text: On HD 3 times a week Nephrology consult called (6) CAD (coronary artery disease) Status: Chronic Problem Text: Stable Will hold Coreg and is started. Metoprolol 5 mg IV every 12 hours till Patient is able to restart taking his oral meds (7) Acute respiratory failure with hypoxia Status: Resolved Problem Text: Continue oxygen support with 1 L nasal cannula Patient's respiratory depression was treated with Narcan Most likely secondary to opiates and interaction with multiple other meds including muscle relaxants Plan/VTE VTE Prophylaxis Ordered?: Yes VS, I&O, 24H, Fishbone Vital Signs/I&O Vital Signs Date Time Temp Pulse Resp B/P (MAP) Pulse Ox O2 Delivery O2 Flow Rate FiO2 04/21/20 08:00 1.0 04/21/20 08:00 98.0 78 14 110/57 (74) 97 Nasal Cannula I&O- Last 24 Hours up to 6 AM 04/21/20 05:59 Intake Total 1060 ml Balance 1060 ml Laboratory Data 24H LABS Laboratory Tests 2 04/20/20 21:15: Blood Gas Bicarbonate Standard 22.1, Venous Blood pH 7.308L, Venous Blood Partial Pressure CO2 48.4, Venous Blood Partial Pressure O2 144.6H, Venous Blood Total Carbon Dioxide 25.2, Venous Blood HCO3 23.7, Venous Blood Oxygen Saturation 98.9H, Venous Blood Base Excess -2.8L 04/20/20 22:15: Nucleated Red Blood Cells % (auto) 0.0, Anion Gap 10, Glomerular Filtration Rate 12.2L, Calcium Level 8.7L, Total Bilirubin 0.2, Aspartate Amino Transf (AST/SGOT) 33, Alanine Aminotransferase (ALT/SGPT) 26, Alkaline Phosphatase 153H, Total Protein 6.7, Albumin 3.4, Albumin/Globulin Ratio 1.0 04/21/20 04:42: Nucleated Red Blood Cells % (auto) 0.0, Anion Gap 10, Glomerular Filtration Rate 11.4L, Calcium Level 8.3L, Magnesium Level 2.4 CBC/BMP Laboratory Tests 04/20/20 22:15 04/21/20 04:42 PALAK LOVE MD Apr 21, 2020 10:14
[2020-04-21] MEDS ORDERED: KETOROLAC 30 MG/ML 1ML VIAL IV PRN (10:30)
[2020-04-21] MEDS: HEPARIN SOD (PORCINE) 5000UNITS/ML 1ML VIAL/SYRINGE SC SCH ×2 (10:51→20:58)
[2020-04-21] MEDS: NEOSPORIN TOP OINT 15GM TOP SCH (10:51)
[2020-04-21] MEDS: METOPROLOL 5 MG/5 ML VIAL IV SCH ×2 (11:00→23:00)
[2020-04-21] MEDS: methylPREDNISolone 125MG 2ML VIAL IV SCH ×2 (12:57→18:09)
[2020-04-21] MEDS ORDERED: DEXTROSE 50% 50 ML SYRINGE IV PRN (14:30)
[2020-04-21] MEDS ORDERED: GLUCAGON INJ 1MG VIAL SC PRN (14:30)
[2020-04-21] MEDS ORDERED: GLUCOSE 4GM CHEW TABLET PO PRN (14:30)
[2020-04-21] MEDS: ALBUTEROL SULFATE 2.5 MG/0.5 ML INH NEB SOLN INH PRN (16:11)
[2020-04-21] MEDS: HumaLOG INSULIN (NovoLOG) PER UNIT SC SCH (17:30)
[2020-04-21] MEDS ORDERED: ACETAMINOPHEN *IV* 1,000 MG in IV 1 EA IV ONE (20:15)
[2020-04-21] MEDS ORDERED: HumaLOG INSULIN (NovoLOG) PER UNIT SC SCH (21:00)
[2020-04-21] MEDS: LORazepam 2 MG/ML VIAL IV PRN (22:02)
[2020-04-21] MEDS ORDERED: HALOPERIDOL 5MG/ML VIAL (J1630 PER 1) As Ordered ONE (22:34)
[2020-04-21 23:33] LABS: HIV SCREEN CENTAUR SOURCE NEGATIVE (NEGATIVE)
[2020-04-22] VITALS (22 sets, daily range): BP systolic 95–160; BP diastolic 50–88
[2020-04-22] MEDS ORDERED: LORazepam 2 MG/ML VIAL As Ordered ONE ×3 (01:25→23:06)
[2020-04-22] MEDS ORDERED: LORazepam 2 MG/ML VIAL IV STA ×2 (01:33→15:39)
[2020-04-22] MEDS: ALBUTEROL SULFATE 2.5 MG/0.5 ML INH NEB SOLN INH PRN (01:38)
[2020-04-22] MEDS ORDERED: diphenhydrAMINE 50MG/ML VIAL (J1200) IV STA ×2 (01:45→02:50)
[2020-04-22] MEDS ORDERED: diphenhydrAMINE 50MG/ML VIAL (J1200) As Ordered ONE (01:47)
[2020-04-22] MEDS ORDERED: MORPHINE 2 MG/ML 1ML VIAL (J2270) As Ordered ONE (01:58)
[2020-04-22] MEDS ORDERED: MORPHINE 2 MG/ML 1ML VIAL (J2270) IV ONE (02:00)
[2020-04-22] MEDS ORDERED: HALOPERIDOL 5MG/ML VIAL (J1630 PER 1) IM STA (02:50)
[2020-04-22] MEDS: methylPREDNISolone 125MG 2ML VIAL IV SCH ×3 (04:02→18:10)
[2020-04-22] MEDS: MORPHINE 2 MG/ML 1ML VIAL (J2270) IV PRN ×5 (04:04→15:17)
[2020-04-22] MEDS: LORazepam 2 MG/ML VIAL IV PRN ×4 (04:06→23:09)
[2020-04-22 05:20] LABS: HEMATOCRIT 31.8 % (42.0-52.0); HEMOGLOBIN 10.1 g/dl (13.5-17.5); MEAN CORPUSCULAR HGB CONC 31.8 g/dl (32.0-36.5); MEAN CORPUSCULAR VOLUME 103.9 fl (80.0-96.0); PLATELET COUNT, AUTOMATED 158 10^3/uL (150-450); RED BLOOD COUNT 3.06 10^6/uL (4.30-6.10); WHITE BLOOD COUNT 10.3 10^3/uL (4.0-10.0)
[2020-04-22 05:30] LABS: CALCIUM LEVEL 8.1 MG/DL (8.8-10.2); CREATININE FOR GFR 3.85 MG/DL (0.70-1.30); GLOMERULAR FILTRATION RATE 16.4 (>42); POTASSIUM SERUM 4.2 MEQ/L (3.5-5.1)
[2020-04-22] MEDS: HumaLOG INSULIN (NovoLOG) PER UNIT SC SCH ×4 (07:30→22:58)
--- NOTE | 2020-04-22 09:26 | REP ---
BILATERAL LOWER EXTREMITY DUPLEX DOPPLER ARTERIAL ULTRASOUND: Real-time sonographic evaluation of bilateral lower extremity arterial systems is performed. The study is limited due to patient condition and patient motion. We were unable to assess the right popliteal artery and proximal posterior artery as well as the left tibioperoneal trunk. There is severe plaquing bilaterally. There are diffuse monophasic waveforms in the visualized arterial structures. No gross focal stenosis is seen. Note is made of occlusion of the distal left anterior tibial artery. Right Peak Left Peak Systolic Velocity Systolic velocity Common femoral artery 167.1 cm/s 86.3 cm/s Profunda 139.7 cm/s 92.0 cm/s Proximal SFA 47.6 cm/s 48.2 cm/s Mid SFA 58.0 cm/s 98.0 cm/s Distal SFA 33.2 cm/s 34.8 cm/s Popliteal 28.2 cm/s Proximal ROSINA 32.2 cm/s 40.6 cm/s Proximal BATTALION CHIEF 37.5 cm/s Distal BATTALION CHIEF 17.1 cm/s 44.4 cm/s Distal ROSINA 13.1 cm/s 13.4 cm/s Electronically Signed by Toni Puckett MD 05/01/2020 11:28 A
[2020-04-22] MEDS ORDERED: HALOPERIDOL 5MG/ML VIAL (J1630 PER 1) IM ONE (11:00)
[2020-04-22] MEDS: HEPARIN SOD (PORCINE) 5000UNITS/ML 1ML VIAL/SYRINGE SC SCH ×2 (11:06→20:55)
[2020-04-22] MEDS: NEOSPORIN TOP OINT 15GM TOP SCH (11:07)
[2020-04-22] MEDS: METOPROLOL 5 MG/5 ML VIAL IV SCH ×2 (11:08→22:49)
--- NOTE | 2020-04-22 11:30 | IPNPDOC ---
Subjective Date Seen The patient was seen on 04/22/20. Subjective Chief Complaint/HPI Patient is arousable with tactile stimuli was still lethargic, in no apparent distress General: Reports: ROS Unobtainable Objective Physical Examination Eye Exam: Positive: Other Eye Symptoms (miotic pupils. Noted bilaterally) Chest Exam: Positive: Clear to auscultation Heart Exam: Positive: Rate Normal, Normal S1, Normal S2 Abdomen Exam: Positive: Normal bowel sounds, Soft Assessment /Plan Problems (1) Acute hyperactive delirium due to multiple etiologies Status: Acute Problem Text: Secondary to multiple etiology including acute fracture, pain, multiple pain meds and overall muscle relaxants Patient received Narcan last night for reversal of opioid adverse effects including acute respiratory failure with hypoxia secondary to respiratory depression Patient became very agitated after receiving Narcan and later was given IV, Tylenol and Benadryl with some relief of his agitation He is currently sedated but stable arousable only on painful stimuli, continue close monitoring. Oxygen supplement he is only on 1 L nasal cannula Hold all by mouth meds till patient is awake, alert, oriented 3 Will change prednisone to Solu-Medrol 60 mg IV every 8 hours and 80 when 1 mg at every 6 hours when necessary Will restart home meds once he is completely awake and alert Nothing by mouth DVT prophylaxis with heparin Discussed with [phone], he recommended patient requires extensive and hip arthroplasty, so he needs a hip and knee surgeon and he recommended Simeon Moya pr Dr. Almonte aid [facility]. [facility] called and awaiting callback from them if they accept the patient. Once patient is accepted there. Patient will be transferred out for surgery. Patient's , Tatianna [phone], and updated on patient's current status. Also provided options of comfort measures as patient is high risk for surgery. Also spoke with her about DNR and DNI, patient was to come see her today and then she will talk to me on the unit for her final wishes either to transfer patient to [facility] [place] for surgery and all aggressive measures on comfort measures with DNR and DNI (2) Hip fracture, left Status: Acute Problem Text: Most likely secondary to osteoporosis Spoke with the doctor Pepper, patient requires complex left total hip arthroplasty by surgeon was completely done in those procedures [facility] called and awaiting callback for possible transfer if patient is accepted there In the meantime, continue pain management and supportive measures (3) Hyperlipidemia Status: Chronic Problem Text: Hold by mouth meds (4) Hypertension Status: Acute Problem Text: Metoprolol tartrate 5 mg IV every 12 hours with holding parameters (5) ESRD (end stage renal disease) Status: Chronic Problem Text: On HD 3 times a week Nephrology consult called (6) CAD (coronary artery disease) Status: Chronic Problem Text: Stable Will hold Coreg and is started. Metoprolol 5 mg IV every 12 hours till Patient is able to restart taking his oral meds (7) Acute respiratory failure with hypoxia Status: Resolved Problem Text: Continue oxygen support with 1 L nasal cannula Patient's respiratory depression was treated with Narcan Most likely secondary to opiates and interaction with multiple other meds including muscle relaxants Plan/VTE VTE Prophylaxis Ordered?: Yes VS, I&O, 24H, Fishbone Vital Signs/I&O Vital Signs Date Time Temp Pulse Resp B/P (MAP) Pulse Ox O2 Delivery O2 Flow Rate FiO2 04/22/20 11:08 106 160/76 04/22/20 11:02 95 Room Air 04/22/20 10:35 24 04/22/20 10:00 1.0 04/22/20 08:00 97.6 I&O- Last 24 Hours up to 6 AM 04/22/20 06:00 Intake Total 100 ml Output Total 2500 ml Balance -2400 ml Laboratory Data 24H LABS Laboratory Tests 2 04/21/20 12:39: Bedside Glucose (Misc Panel) 88 04/21/20 21:35: HIV Antigen/Antibody Combo Qual NEGATIVE 04/21/20 22:03: Bedside Glucose (Misc Panel) 111H 04/22/20 05:00: Nucleated Red Blood Cells % (auto) 0.0, Anion Gap 7L, Glomerular Filtration Rate 16.4L, Calcium Level 8.1L CBC/BMP Laboratory Tests 04/22/20 05:00 PALAK LOVE MD Apr 22, 2020 11:29
[2020-04-22] MEDS: CALCIUM ACETATE 667MG GELCAP PO SCH ×2 (11:46→18:00)
[2020-04-22] MEDS ORDERED: MORPHINE 4 MG/ML 1ML VIAL/SYRINGE (J2270) IV ONE (12:00)
[2020-04-22] MEDS ORDERED: HALOPERIDOL 5MG/ML VIAL (J1630 PER 1) IV ONE (12:00)
--- NOTE | 2020-04-22 12:46 | IPN ---
DATE: 04/21/2020 SUBJECTIVE: The patient was seen and examined at the bedside today morning in the intensive care unit (ICU). Last 24-hour events were noted. The patient became very somnolent and obtunded after pain medications. He had to be given Narcan and after he woke up, he became agitated and he needed Haldol to calm him down because of his agitation. He was transferred to ICU overnight. When I saw him today morning, he was very sleepy and difficult to arouse. Today is the patient's regular day of dialysis. I arranged his hemodialysis to be done at the bedside, and during dialysis, he was evaluated and he was tolerating the hemodialysis procedure well. OBJECTIVE: Vital signs: Temperature is 98 degrees Fahrenheit, blood pressure is 105/61, pulse is 79, respiratory rate of 14, saturating 97% on nasal cannula at 1 liter. Intake and output: There is no urine output recorded. Weight in the bed scale was 94 kg yesterday. PHYSICAL EXAMINATION: General: The patient is drowsy and sleepy, very difficult to arouse. Head and neck exam: Pupils are equally round and reactive to light. Mucous membranes are moist. Neck is supple. There is no jugular venous distention (JVD). Cardiovascular: S1, S2, regular rate, 2+ edema of the bilateral lower extremities. Respiratory: Mildly decreased breath sounds at the bases. No active rales or rhonchi. Abdomen: Soft, positive bowel sounds. Nontender. No organomegaly. Musculoskeletal: No clubbing or cyanosis. The patient has decreased range of movement of the left hip because of fracture and pain. 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 LAB REVIEW: CBC showed a WBC of 14.9, hemoglobin 9.8, platelets of 173. BMP showed sodium 137, potassium 3.6, chloride 97, bicarbonate 30, BUN 62, creatinine is 5.2, magnesium 2.4. CURRENT INPATIENT MEDICATIONS: The patient's medications were all reviewed by myself. He was given IV Tylenol yesterday. His Xanax, Lipitor, baclofen, PhosLo, Coreg, Plavix is on hold. Colace, Cymbalta, Uloric was also held. He was given a dose of 5 mg intramuscularly (IM) of Haldol. Hydroxyzine is also on hold. He needed two doses of IV Ativan, 2 mg yesterday. Oxycodone has been stopped. Bactrim is also on hold now. ASSESSMENT/PLAN: 1. End-stage renal disease. Today is the patient's regular day of dialysis. Ultrafiltration goal will be 2 liters. The patient is tolerating the hemodialysis well. 2. Left femoral head collapse and fracture of the left acetabular wall. The patient is being seen by orthopedic surgery. Pain optimization was done with Tylenol. Avoid sedative medications because of the patient's metabolic encephalopathy. 3. Chronic diastolic congestive heart failure. Volume status is decompensated. As mentioned above, I am removing 2.5 liters of fluid. 4. 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 Uloric has been on hold because of metabolic encephalopathy. 5. Chronic kidney disease mineral bone disease. PhosLo is on hold. 6. Metabolic encephalopathy. It is secondary to pain medications and sedatives and hypnotics. Most of the medications are on hold now. The patient's clinical status is expected to improve within the next 24-48 hours. He is also being dialyzed and dialysis will help improve the metabolize of the medications as well. Total critical care time spent in the management of this patient this morning in the ICU was 40 minutes excluding all the procedures. MTDD
--- NOTE | 2020-04-22 14:30 | IPN ---
DATE: 04/22/2020 Mr. Mckeon is seen this morning on his bedside in intensive care unit. He is currently resting with eyes closed. Nursing staff reports that he did receive morphine this morning around 6:30. I was able to wake him up, and he did open his eyes. He tried to say that he was feeling well. The patient was dialyzed yesterday, and he tolerated his dialysis reasonably well. He is not eating or drinking at this point much. PHYSICAL EXAMINATION: Temperature 97.6 F. heart rate is 92 per minute and respiratory rate 24 per minute. Blood pressure 103/57 mmHg and oxygen saturation 99% on one liter of oxygen. His head is atraumatic. Neck: Supple and without jugular venous distention (JVD) or thyroid enlargement. Heart: Sounds are irregular in rhythm. Lungs have bilateral good air entry. There is no wheezing or rales at present. Abdomen is soft and nontender and bowel sounds are normal. Extremities: Without any cyanosis or clubbing. There is ecchymosis on his arms. Neurologically, at present, he is sleeping and sedated with morphine. I was able to wake him up, and he did open his eyes on my command. Today's labs show WBC count 10.3, hemoglobin 10.1 and hematocrit 31.8. Platelets 158. Sodium 134, potassium 4.2, CO2 of 27, BUN 38 and creatinine 3.85. Glucose 118 and calcium 8.1. PROBLEMS: 1. End-stage renal disease. The patient was dialyzed yesterday, and his electrolytes are stable. He seems very well dialyzed at present and does not need another dialysis today. 2. Chronic diastolic congestive heart failure. The patient has very poor oral intake at present and volume status is well compensated. There is no need for dialysis today. 3. Anemia. His anemia is stable and does not need any urgent intervention. 4. Left hip pain. He has an acetabular fracture, and he is being considered for transfer to [facility] for higher level of care due to potential need for surgical intervention. From a nephrology standpoint, the patient is very well dialyzed and stable for transfer. He is not likely to require dialysis over the weekend. [facility]
--- NOTE | 2020-04-22 15:31 | DS.PDOC ---
Discharge Summary General Date of Admission Apr 20, 2020 at 02:20 Date of Discharge 04/23/20 Discharge Summary PROCEDURES PERFORMED DURING STAY: None. ADMITTING DIAGNOSES: 1. Fracture, left hip, type 2 diabetes mellitus, end-stage renal disease on hemodialysis, diastolic heart failure, mitral wall prosthesis, history of aortic stenosis. DISCHARGE DIAGNOSES: 1. Complex fracture of left hip, type 2 diabetes mellitus, end-stage renal disease on hemodialysis, diastolic heart failure, mitral valve prosthesis, history of aortic stenosis, delirium. COMPLICATIONS/CHIEF COMPLAINT: Osetoarthritis Of Left Hip. HISTORY OF PRESENT ILLNESS: Patient is 74 years old male with past medical history of type 2 diabetes, end-stage renal diseases on dialysis, diastolic CHF, mitral valve prosthesis and history of aortic stenosis presented hospital with severe left hip pain. Patient stated that for past 1 month having increased left hip pain with radiation to the groin. For past week he was not able to walk due to pain. In emergency room patient was found on CT Probably subacute fracture of the left medial acetabular wall with left femoral head collapse and acetabular protrusion. Left hip joint effusion. Dr. Pabon was contacted by phone, he recommended admit patient for further inpatient management.. HOSPITAL COURSE: (1) Acute hyperactive delirium due to multiple etiologies Secondary to multiple etiology including acute fracture, pain, multiple pain meds and overall muscle relaxants Patient received Narcan last night for reversal of opioid adverse effects including acute respiratory failure with hypoxia secondary to respiratory depression Patient became very agitated after receiving Narcan and later was given IV, Tylenol and Benadryl with some relief of his agitation He is currently sedated but stable arousable only on painful stimuli, continue close monitoring. Oxygen supplement he is only on 1 L nasal cannula Hold all by mouth meds till patient is awake, alert, oriented 3 Will change prednisone to Solu-Medrol 60 mg IV every 8 hours and 80 when 1 mg at every 6 hours when necessary Will restart home meds once he is completely awake and alert Nothing by mouth DVT prophylaxis with heparin Discussed with [phone], he recommended patient requires extensive and hip arthroplasty, so he needs a hip and knee surgeon and he recommended Simeon Moya pr Dr. Almonte aid [facility]. [facility] called and awaiting callback from them if they accept the patient. Once patient is accepted there. Patient will be transferred out for surgery. Patient's , Tatianna [phone], and updated on patient's current status. Also provided options of comfort measures as patient is high risk for surgery. Also spoke with her about DNR and DNI, patient was to come see her today and then she will talk to me on the unit for her final wishes either to transfer patient to [facility] for surgery and all aggressive measures on comfort measures with DNR and DNI. [facility] called and awaiting callback for except as outpatient with their facility (2) Hip fracture, left Most likely secondary to osteoporosis Spoke with the doctor Pepper, patient requires complex left total hip arthroplasty by surgeon was completely done in those procedures [facility] called and awaiting callback for possible transfer if patient is accepted there In the meantime, continue pain management and supportive measures (3) Hyperlipidemia Hold by mouth meds (4) Hypertension Metoprolol tartrate 5 mg IV every 12 hours with holding parameters (5) ESRD (end stage renal disease) On HD 3 times a week Nephrology consult called (6) CAD (coronary artery disease) Stable Will hold Coreg and is started. Metoprolol 5 mg IV every 12 hours till Patient is able to restart taking his oral meds (7) Acute respiratory failure with hypoxia Continue oxygen support with 1 L nasal cannula Patient's respiratory depression was treated with Narcan Most likely secondary to opiates and interaction with multiple other meds including muscle relaxants. DISCHARGE MEDICATIONS: Please see below. ALLERGIES: Please see below. PHYSICAL EXAMINATION ON DISCHARGE: VITAL SIGNS: Please see below. GENERAL: Lethargic, sedated HEENT: Unable to examine NECK: Supple CARDIOVASCULAR EXAMINATION: S1, S2, regular RESPIRATORY EXAMINATION: Clear to A&P ABDOMINAL EXAMINATION: Benign EXTREMITIES: Shortening of left lower leg SKIN: Nonhealing foot ulcer NEUROLOGICAL EXAMINATION: Unable to examine PSYCHIATRIC EXAMINATION: Unable to examine LABORATORY DATA: Please see below. IMAGING: Bilateral lower extremity arterial studies:Real-time sonographic evaluation of bilateral lower extremity arterial systems is performed. The study is limited due to patient condition and patient motion. We were unable to assess the right popliteal artery and proximal posterior artery as well as the left tibioperoneal trunk. There is severe plaquing bilaterally. There are diffuse monophasic waveforms in the visualized arterial structures. No gross focal stenosis is seen. Note is made of occlusion of the distal left anterior tibial artery. PROGNOSIS: Poor ACTIVITY: As tolerated. DIET: Nothing by mouth DISCHARGE PLAN: Transferred to [facility] DISPOSITION: . Transfer to [facility] DISCHARGE INSTRUCTIONS: 1. As above. ITEMS TO FOLLOWUP ON ON OUTPATIENT: 1. As potentially care facility. DISCHARGE CONDITION: Stable. TIME SPENT ON DISCHARGE: 40 minutes. Vital Signs/I&Os Vital Signs Date Time Temp Pulse Resp B/P (MAP) Pulse Ox O2 Delivery O2 Flow Rate FiO2 04/22/20 15:17 20 04/22/20 12:00 97.0 137 150/77 (101) 95 Room Air 04/22/20 10:00 1.0 I&O- Last 24 Hours up to 6 AM 04/22/20 05:59 Intake Total 100 ml Output Total 2500 ml Balance -2400 ml Laboratory Data Labs 24H Laboratory Tests 2 04/21/20 21:35: HIV Antigen/Antibody Combo Qual NEGATIVE 04/21/20 22:03: Bedside Glucose (Misc Panel) 111H 04/22/20 05:00: Nucleated Red Blood Cells % (auto) 0.0, Anion Gap 7L, Glomerular Filtration Rate 16.4L, Calcium Level 8.1L 04/22/20 11:49: Bedside Glucose (Misc Panel) 96 CBC/BMP Laboratory Tests 04/22/20 05:00 FSBS Laboratory Tests Test 04/21/20 22:03 04/22/20 11:49 Range/Units Bedside Glucose (Misc Panel) 111 96 83-110 MG/DL Discharge Medications Scheduled Heparin Sodium,Porcine (Heparin Sodium) 5,000 Unit/1 Ml Vial, 5,000 UNITS SC Q12H Insulin Human Lispro (Humalog) 100 Unit/1 Ml Vial, 0 UNITS SC Q6H Methylprednisolone (Solu-Medrol 125 mg Vial) 125 Mg/2 Ml Vial, 60 MG IV Q8H Metoprolol Tartrate (Metoprolol Tartrate) 5 Mg/5 Ml Vial, 5 MG IV Q12H Scheduled PRN Albuterol Sulfate (Albuterol Sulfate) 2.5 Mg/0.5 Ml Vial.neb, 2.5 MG INH Q2H PRN for SOB/WHEEZING Alprazolam (Alprazolam) 0.25 Mg Tablet, 0.25 MG PO TID PRN for ANXIETY Lorazepam (Ativan) 2 Mg/1 Ml Vial, 1 MG IV Q6HP PRN for ANXIETY/AGITATION Morphine Sulfate (Morphine Sulfate) 2 Mg/1 Ml Vial, 2 MG IV Q1H PRN for SEVERE PAIN (PS 8-10) Allergies Coded Allergies: aspirin (Verified Allergy, Severe, LIPS SWELL, 03/29/19) Penicillins (Verified Allergy, Intermediate, RASH, 04/15/19) ampicillin (Verified Allergy, Intermediate, HIVES, 03/17/19) ceftriaxone (Verified Allergy, Unknown, UNKNOWN REACTION, 04/09/19) PALAK LOVE MD Apr 22, 2020 15:31
[2020-04-22] MEDS ORDERED: HEPA500011 SC (15:44)
[2020-04-22] MEDS ORDERED: MORP2INJ4 IV (15:44)
[2020-04-22] MEDS ORDERED: METH125VL IV (15:44)
[2020-04-22] MEDS ORDERED: INSUHUMDS SC (15:44)
[2020-04-22] MEDS ORDERED: ALPR0.25 PO (15:44)
[2020-04-22] MEDS ORDERED: ATIV2INJ5 IV (15:44)
[2020-04-22] MEDS ORDERED: ALB2.5NEB INH (15:44)
[2020-04-22] MEDS ORDERED: METO5INJ15 IV (15:44)
[2020-04-22] MEDS: MORPHINE 4 MG/ML 1ML VIAL/SYRINGE (J2270) IV PRN ×6 (16:27→22:48)
[2020-04-22] MEDS: CARVedilol 6.25 MG TAB PO SCH (19:36)
[2020-04-22] MEDS: DULoxetine 30 MG CAP (CYMBALTA) PO SCH (19:36)
[2020-04-22] MEDS: BACTRIM 80MG/400MG TAB PO SCH (19:36)
[2020-04-22] MEDS: DOCUSATE SODIUM 100MG CAPSULE PO SCH (19:36)
[2020-04-22] MEDS: ATORVASTATIN 20 MG TAB PO SCH (19:37)
[2020-04-22] MEDS: FEBUXOSTAT 40 MG TABLET (ULORIC) PO SCH (19:37)
[2020-04-22] MEDS: predniSONE 20 MG TAB PO SCH (19:37)
[2020-04-23] VITALS (56 sets, daily range): BP systolic 95–182; BP diastolic 52–101
[2020-04-23] MEDS: MORPHINE 4 MG/ML 1ML VIAL/SYRINGE (J2270) IV PRN ×11 (00:10→18:14)
[2020-04-23] MEDS: methylPREDNISolone 125MG 2ML VIAL IV SCH ×3 (03:00→18:14)
[2020-04-23] MEDS ORDERED: LORazepam 2 MG/ML VIAL As Ordered ONE (04:37)
[2020-04-23] MEDS: LORazepam 2 MG/ML VIAL IV PRN (05:05)
[2020-04-23] MEDS: HumaLOG INSULIN (NovoLOG) PER UNIT SC SCH ×3 (05:08→18:00)
[2020-04-23] MEDS ORDERED: LIDOCAINE 5% (LIDODERM) PATCH TD SCH (09:00)
--- NOTE | 2020-04-23 09:23 | IPN ---
DATE: 04/23/2020 CHIEF COMPLAINT: Left hip pain. 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 HISTORY OF PRESENT ILLNESS: The patient developed increasing and worsening severe left hip pain. CT scan demonstrated left femoral head collapse acetabular protrusio. Multiple medical history issues including being on long-term oral prednisone use, likely contributing to this man's condition. I spoke with Dr. Melchor who performs total hip arthroplasties. He states that he would not be comfortable performing a case of this complexity. If the patient were to want or benefit from surgery, this would be a complex total hip arthroplasty or a Girdlestone hip resection arthroplasty. This would likely best be performed by Dr. Marco gusman at [facility] in [place], [place]. I have communicated this to the patient's as well hospitalist honing machine set up operator tool. ASSESSMENT/PLAN: Per the hospitalist note on my understanding of the communications, this patient will likely be transferred to [facility] for further consultation in regards to his left hip. If the patient is able to be discharged home with adequate pain control, we can arrange to have this consultation as an outpatient. If there are any further questions please not hesitate to contact me.
--- NOTE | 2020-04-23 10:44 | IPNPDOC ---
Subjective Date Seen The patient was seen on 04/23/20. Subjective Chief Complaint/HPI Status, stable and is sedated with pain management with morphine. Still awaiting callback from [facility] in [place] for possible transfer Transfer center called again and left message to call me back as soon as poss ible General: Reports: ROS Unobtainable Objective Physical Examination Eye Exam: Positive: Other Eye Symptoms (miotic pupils. Noted bilaterally) Neck Exam: Positive: Supple Chest Exam: Positive: Clear to auscultation Heart Exam: Positive: Rate Normal, Normal S1, Normal S2 Abdomen Exam: Positive: Normal bowel sounds, Soft Extremity Exam: Positive: Normal pulses Assessment /Plan Problems (1) Acute hyperactive delirium due to multiple etiologies Status: Acute Problem Text: Secondary to multiple etiology including acute fracture, pain, multiple pain meds and overall muscle relaxants Patient received Narcan last night for reversal of opioid adverse effects including acute respiratory failure with hypoxia secondary to respiratory depression Patient became very agitated after receiving Narcan and later was given IV, Tylenol and Benadryl with some relief of his agitation He is currently sedated but stable arousable only on painful stimuli, continue close monitoring. Oxygen supplement he is only on 1 L nasal cannula Hold all by mouth meds till patient is awake, alert, oriented 3 Will change prednisone to Solu-Medrol 60 mg IV every 8 hours and 80 when 1 mg at every 6 hours when necessary Will restart home meds once he is completely awake and alert Nothing by mouth DVT prophylaxis with heparin . Patient's , Tatianna [phone], and updated on patient's current status. Also provided options of comfort measures as patient is high risk for surgery. Also spoke with her about DNR and DNI, patient was to come see her today and then she will talk to me on the unit for her final wishes either to transfer patient to [place] for surgery and all aggressive measures on comfort measures with DNR and DNI Is still awaiting callback from [facility], [facility] was called again and message left to call me back as soon as possible regarding the up date for possibly transfer patient there, according to Dr. Pabon patient will probably need complex total hip arthroplasty, or Girdlestone hip resection arthroplasty. Hold all by mouth meds Continue pain management Awaiting response from [facility] (2) Hip fracture, left Status: Acute Problem Text: Most likely secondary to osteoporosis Spoke with the doctor Pepper, patient requires complex left total hip arthroplasty by surgeon was completely done in those procedures Awaiting response from [facility] In the meantime, continue pain management and supportive measures (3) Hyperlipidemia Status: Chronic Problem Text: Hold by mouth meds (4) Hypertension Status: Acute Problem Text: Metoprolol tartrate 5 mg IV every 12 hours with holding parameters (5) ESRD (end stage renal disease) Status: Chronic Problem Text: On HD 3 times a week Nephrology consult called (6) CAD (coronary artery disease) Status: Chronic Problem Text: Stable Will hold Coreg and is started. Metoprolol 5 mg IV every 12 hours till Patient is able to restart taking his oral meds (7) Acute respiratory failure with hypoxia Status: Resolved Problem Text: Continue oxygen support with 1 L nasal cannula Patient's respiratory depression was treated with Narcan Continue oxygen support Plan/VTE VTE Prophylaxis Ordered?: Yes VS, I&O, 24H, Fishbone Vital Signs/I&O Vital Signs Date Time Temp Pulse Resp B/P (MAP) Pulse Ox O2 Delivery O2 Flow Rate FiO2 04/23/20 10:11 18 04/23/20 07:44 97 Nasal Cannula 04/23/20 06:00 97 95/54 (68) 2.0 04/23/20 04:00 98.1 I&O- Last 24 Hours up to 6 AM 04/23/20 06:00 Intake Total 0 ml Output Total 200 ml Balance -200 ml Laboratory Data 24H LABS Laboratory Tests 2 04/22/20 11:49: Bedside Glucose (Misc Panel) 96 04/22/20 17:48: Bedside Glucose (Misc Panel) 88 04/22/20 22:56: Bedside Glucose (Misc Panel) 82L 04/23/20 05:05: Bedside Glucose (Misc Panel) 93 PALAK LOVE MD Apr 23, 2020 10:44
[2020-04-23 11:11] LABS: HEMATOCRIT 35.4 % (42.0-52.0); HEMOGLOBIN 11.1 g/dl (13.5-17.5); MEAN CORPUSCULAR HEMOGLOBIN 32.7 pg (27.0-33.0); MEAN CORPUSCULAR HGB CONC 31.4 g/dl (32.0-36.5); MEAN CORPUSCULAR VOLUME 104.4 fl (80.0-96.0); PLATELET COUNT, AUTOMATED 247 10^3/uL (150-450); RED BLOOD COUNT 3.39 10^6/uL (4.30-6.10); WHITE BLOOD COUNT 12.7 10^3/uL (4.0-10.0)
[2020-04-23] MEDS ORDERED: D5W/0.9% SODIUM CHLORIDE 1,000 ML IV SCH (11:30)
[2020-04-23 11:34] LABS: ALBUMIN 3.2 GM/DL (3.2-5.2); CALCIUM LEVEL 8.5 MG/DL (8.8-10.2); CREATININE FOR GFR 4.94 MG/DL (0.70-1.30); GLOMERULAR FILTRATION RATE 12.3 (>42); PHOSPHORUS LEVEL 6.6 MG/DL (2.5-4.9); POTASSIUM SERUM 4.6 MEQ/L (3.5-5.1)
[2020-04-23] MEDS: HEPARIN SOD (PORCINE) 5000UNITS/ML 1ML VIAL/SYRINGE SC SCH (11:49)
[2020-04-23] MEDS: METOPROLOL 5 MG/5 ML VIAL IV SCH (11:49)
[2020-04-23] MEDS: NEOSPORIN TOP OINT 15GM TOP SCH (17:34)
[2020-04-23] MEDS ORDERED: **NOTE PATIENT COMMENT** MISC XX SCH (21:00)
[2020-04-24 10:52] LABS: HEP C VIRUS AB INDEX SOURCE PT 0.2 INDEX (0.0-0.8)
--- NOTE | 2020-04-24 11:55 | IPN ---
DATE: 04/23/2020 Mr. Srinivasan is seen this morning on his bedside in intensive care unit. Nursing staff reports that he has been requiring frequent morphine and Ativan due to pain and agitation. Currently, he seems to be calm and sedated. I did call him and he answered. He has not been eating or drinking at all. His has indicated that she would like all aggressive care continued and the patient is being considered for transfer to [facility] for higher level of care for his left hip and pelvic fracture. PHYSICAL EXAMINATION: The patient is sleepy and sedated. Temperature is 98.4 degrees Fahrenheit, heart rate 92 per minute and respiratory rate 16 per minute. Blood pressure 139/77 mmHg and oxygen saturation 95% on 2 liters oxygen. His head is atraumatic. Oral mucosa is dry and oral hygiene is poor. Neck veins are not abnormally distended. His heart sounds are irregular and lungs with poor inspiratory effort. Abdomen: Soft and nontender. Bowel sounds are normal. Extremities: Without any cyanosis or clubbing. Neurologically, he is sedate, but he was able to open his eyes and answer a couple of simple questions. Today's labs show WBC count 12.7, hemoglobin 11.1 and hematocrit 35.4. Platelets 247. Sodium 136, potassium 4.6, CO2 28, BUN 66 and creatinine 4.94. Calcium 8.5 and phosphorus 6.6. PROBLEMS: 1. End-stage renal disease. From a renal standpoint, the patient seems to be doing well. He was dialyzed on Friday and we will plan dialysis again on Friday if he is still here. At this point, there is no emergent indication for dialysis right now. 2. Nutrition. His oral intake has been essentially zero. I am starting him on IV fluid with D5 normal saline at 60 per hour. I hope that when his pain control is optimized then he can start taking by mouth. 3. Anemia. His anemia is stable and does not need any urgent intervention. 4. Left hip and pelvic fracture. The patient is requiring frequent morphine and he is quite sedated with it. He is waiting for a bed at [facility] for possible surgical intervention. 5. History of congestive heart failure. His volume status is very well compensated and in fact he is probably somewhat dehydrated now due to poor oral intake. IV fluid is being started at 60 mL per hour.
--- NOTE | 2020-04-24 20:20 | ECGEPIP ---
[facility] Test Date: 2020-04-20 Pat Name: VEDA BARRERA Department: Room: [place] [address] Gender: Male Bar [employer]acker: : [id number] Requested By: JUAN JOSE LEVY Order Number: [id number] Reading MD: Nam Robles Measurements Intervals [place] Rate: 92 P: 30 FL: 198 QRS: 1 QRSD: 174 T: 31 QT: 404 QTc: 501 Interpretive Statements SINUS RHYTHM WITH OCCASIONAL VENTRICULAR PREMATURE COMPLEXES POSSIBLE LEFT ATRIAL ENLARGEMENT RIGHT BUNDLE BRANCH BLOCK CANNOT R/O IWMI, OLD SIMILAR TO 11/07/19 Electronically Signed on 04-24-2020 20:19:33 EDT by Nam Robles
[2020-04-28 12:22] LABS: HEPATITIS B SURFACE ANTIGEN NEGATIVE (NEGATIVE)
[2020-04-28] MEDS ORDERED: IBUP1TAB5 PO (17:46)
[2020-04-28] MEDS ORDERED: SYMP0.2T2 PO (17:46)
[2020-06-23] MEDS ORDERED: METH-1164 PO (12:37)
[2020-10-03] MEDS ORDERED: FAMO1TAB25 PO (09:03)
[2020-10-03] MEDS ORDERED: MORP-69 (09:06)
== END 2020-04-23 19:08 | disposition short-term general hospital (02) | DRG 542 ==
LOC: M ED 22:29 → M ED INP 04-20 02:20 → ENRESERVDT 04-20 03:48 → ENRESERVTM 04-20 03:48 → M MSPAV 04-20 04:39 → M ICU 04-20 23:04
PROVIDERS: ADMIT Internal Medicine; ATTEND Internal Medicine
PROC: 5A1D70Z Performance of Urinary Filtration, Intermittent, Less than 6 Hours Per Day (ICD-10-PCS; principal; 2020-04-21)
DX: M80.052A Age-related osteoporosis with current pathological fracture, left femur, initial encounter for fracture (principal); N18.6 End stage renal disease; J96.01 Acute respiratory failure with hypoxia; G92 Toxic encephalopathy; I50.32 Chronic diastolic (congestive) heart failure; I13.0 Hypertensive heart and chronic kidney disease with heart failure and stage 1 through stage 4 chronic kidney disease, or unspecified chronic kidney disease; M87.352 Other secondary osteonecrosis, left femur; E11.22 Type 2 diabetes mellitus with diabetic chronic kidney disease; M17.12 Unilateral primary osteoarthritis, left knee; M25.452 Effusion, left hip; D63.1 Anemia in chronic kidney disease; I27.20 Pulmonary hypertension, unspecified; I25.10 Atherosclerotic heart disease of native coronary artery without angina pectoris; G47.33 Obstructive sleep apnea (adult) (pediatric); F41.9 Anxiety disorder, unspecified; M10.30 Gout due to renal impairment, unspecified site; M24.7 Protrusio acetabuli; I35.0 Nonrheumatic aortic (valve) stenosis; T42.75XA Adverse effect of unspecified antiepileptic and sedative-hypnotic drugs, initial encounter; M54.9 Dorsalgia, unspecified; Z95.2 Presence of prosthetic heart valve; Z99.2 Dependence on renal dialysis; Z79.02 Long term (current) use of antithrombotics/antiplatelets; Z79.52 Long term (current) use of systemic steroids; Z79.899 Other long term (current) drug therapy; Z85.51 Personal history of malignant neoplasm of bladder; Z95.1 Presence of aortocoronary bypass graft; Z88.6 Allergy status to analgesic agent; Z88.0 Allergy status to penicillin; Z88.1 Allergy status to other antibiotic agents

== ENCOUNTER 2020-04-27 12:57 | Inpatient (IN) | payer MEDICARE, OTHER ==
[~2020-04-27] VITALS: Ht 167.6 cm; Wt 88.0 kg
[~2020-04-27 12:57] MED LIST changes: +ALB2.5NEB INH; -AMLO1TAB24 PO; +AMLO5TAB6 PO; +ATIV2INJ5 IV; +CLIN150C14 PO; -CLIN150C15 PO; +CLIN300C5 PO; -CLIN300C6 PO; -COLC0.6T47 PO; +COLC1TAB13 PO; +HEPA500011 SC; +INSUHUMDS SC; +METH125VL IV; +METO5INJ15 IV; +MORP2INJ4 IV; +MOVA1TAB2 PO; +NALD0.2T PO; -NALO25TA PO; -SYMP0.2T2 PO; +TRIPOIN9 TOP; +VITA1TAB23 PO; -VITA250T20 PO; +VITAD1000T PO
[2020-04-27] MEDS ORDERED: ACETAMINOPHEN 500 MG TAB PO SCH (16:00)
[2020-04-27] MEDS ORDERED: REMEDY PHYTOPLEX Z-GUARD PASTE 113GM TUBE (FROM STOREROOM PRODUCT) TOP SCH (16:00)
[2020-04-27] MEDS ORDERED: CO-ENZYME Q10 50 MG CAP PO SCH (21:00)
[2020-04-27] MEDS ORDERED: DOCUSATE SODIUM 100 MG CAP PO SCH (21:00)
[2020-04-27] MEDS ORDERED: SILVER SULFADIAZINE 1% CR 50 GM JAR TOP SCH (21:00)
[2020-04-27] MEDS ORDERED: CARVedilol 3.125 MG TAB PO SCH (21:00)
[2020-04-27] MEDS ORDERED: SENNA 8.6 MG TAB (SENOKOT) PO SCH (21:00)
[2020-04-28] MEDS ORDERED: TIOTROPIUM INHALER/CAPSULE (SPIRIVA) INH SCH (08:00)
[2020-04-28] MEDS ORDERED: CALCIUM/VITAMIN D 500 MG TAB PO SCH (09:00)
[2020-04-28] MEDS ORDERED: FEBUXOSTAT 40 MG TABLET (ULORIC) PO SCH (09:00)
[2020-04-28] MEDS ORDERED: ATORVASTATIN 20 MG TAB PO SCH (09:00)
[2020-04-28] MEDS ORDERED: PANTOPRAZOLE 40MG TAB (PROTONIX) PO SCH (09:00)
[2020-04-28] MEDS ORDERED: DULoxetine 30 MG CAP (CYMBALTA) PO SCH (09:00)
[2020-04-28] MEDS ORDERED: CLOPIDOGREL 75 MG TAB PO SCH (09:00)
[2020-04-28] MEDS ORDERED: MULTIVITAMINS/MINERALS THERAP 1 TAB PO SCH (09:00)
[2020-04-28] MEDS ORDERED: FUROSEMIDE 40 MG TAB PO SCH (09:00)
[2020-04-28] MEDS ORDERED: oxyCODONE 5MG TAB PO PRN (14:30)
--- NOTE | 2020-04-28 15:41 | HPEPDOC ---
Community Health Education Coordinator Note DATE OF ADMISSION: 04-28-20 DATE OF SERVICE: 04-28-20 TIME OF ADMISSION: Please refer to physician's admission order. SOURCE OF ADMISSION INFORMATION: [facility] record and patient CHIEF COMPLAINT: left hip fracture HISTORY OF PRESENT ILLNESS: 74M pmh ESRD on HD, chronic diastolic CHF with CAD s/p CABG, restrictive lung disease, ABELARDO on CPAP(non-compliant), gout, DM2, bladder cancer, right foot diabetic ulcer who was admitted to [facility] 04-23-20 for a left sided hip fr acture thought to be due to AVN in the setting of chronic steroid use. He was evaluated by orthopedics and patient decided to hold off on surgery and to follow-up with Dr. Cesar in 1-2 weeks, but was to remain NWB to the [facility]. He was dialyzed, had leukocytosis and hyponatremia due to ESRD. He was evaluated by therapy, found to have mobility impairments below his prior level of function and deemed medically appropriate for discharge to ARU on 04-28-20. REVIEW OF SYSTEMS: The following is a completed review of systems and has been reviewed. Review of systems otherwise unremarkable. PAIN: Patient self reports left hip pain EYES: No recent vision changes EARS, NOSE, & THROAT: No throat pain, or dysphagia, or rhinorrhea CARDIOVASCULAR: Denies chest pain or palpitations PULMONARY: Denies shortness of breath GASTROINTESTINAL: Denies constipation/diarrhea GENITOURINARY: denies dysuria MUSCULOSKELETAL: left hip fracture NEUROLOGICAL:no tremor or paresthesias HEMATOLOGICAL: +anemia SKIN: right toe ulcer PSYCHIATRIC: Unremarkable All other review of systems found to be negative. PAST MEDICAL HISTORY: as per HPI PSHx: mitral and aortic valve replacement, spinal cord stimulator, right elbow replacement ALLERGIES: Please see below. MEDICATIONS: Please see below. SOCIAL HISTORY: former smoker, no etoh/illicit drugs DIET: low cholesterol, fluid restrict PHYSICAL EXAMINATION: VITAL SIGNS: Please see below. GENERAL: Pleasant and cooperative. No acute distress. HEENT: PERRL. Extraocular movements intact. Clear conjunctiva CARDIOVASCULAR: Regular rate and rhythm. No murmurs, rubs, or gallops LUNGS: Clear to auscultation bilaterally. No wheezes. No rhonchi ABDOMEN: Soft, nontender, nondistended. Positive bowel sounds. Normal active bowel sounds NEUROLOGICAL: Alert and oriented times three. Cranial nerves II through XII grossly intact. Sensation grossly intact EXTREMITIES: 5\5 strength bilateral upper extremities. 5\5 strength right lower extremity. 3/5 strength in left lower extremity (limited due to fracture) +anasarca SKIN: right 2nd toe ulcer, sacrum with blanchable erythema, scattered ulcer on his bilat calves LABORATORY DATA: Please see below. IMAGING:Imaging documentation personally reviewed by record FUNCTIONAL STATUS: Premorbid: requiring assistance with ADLs and Mod-I from wheelchair level for On Admission: Mod-max assist for functional transfer, bed mobility, dressing, toileting GOALS: Mod-I functional transfers and bed mobility, contact guard for dressing, toileting, bathing ASSESSMENT:74-year-old M with past medical history of ESRD who presents status post left hip fracture non-operative PLAN: 1. rehab- PT/OT, advance mobiltiy and ADLs, strengthen/stretch/maintain ROM all 4limbs, energy conservation 2. Neuro- recent encephalopathy while on opioids, monitor closely while home dose of morphine 3. cardiac- chronic diastolic CHF, daily weights, fluids restrict, fluid management per renal -medicine consulted to assist in overall management -HLD- statin -CAD sp CABD c/u beta-faisal and plavix 4. resp- hx of ABELARDO non compliant with CPAP- c/u nocturnal oxygen, restrictive lung disease, will order Duonebs -monitor for infection 5. Ortho- s/p elft hip fracture likely due to chronic steroids causing AVN-NWB to the LLE, f/u with Dr. Cesar in 1-2 weeks, patient may reconsider surgery 6. renal- ESRD- HD --, renal consulted to follow -will start oral lasix for fluid overload and await further renal recs 7. Rheum- hx of eczema, c/u low dose oral steroids, c/u Uloric for hx of gout 8. Pain- cymbalta and morphine 15mg IR q6h prn (this is his home dose that he has taken for years without complication (hold for AMS or RR <12) 9. Skin- right toe ulcer c/u dressing changes, bilat LE per dressing change orders 10. Dispo- TBD POST ADMISSION PHYSICIAN EVALUATION: Medical and functional status: Description of medical status, medical assessment: As above. Rehabilitation diagnosis and current and prior cold morbid medical conditions as above. Risk of complications and plans to mitigate them as above. Description of functional status current status is as above. Prior status as above. Status compared to preadmission: There are no clinically significant differences between the patient's current status and the information described on the preadmission screening document. Treatment plan anticipated: Treatment plan is as described above. Required disciplines including physical therapy, occupational therapy, others as noted above Intensity of services: 3 hours a day, 6 days a week. Special considerations: There are no specific special or safety considerations that would likely preclude immediate implementation of an intensive rehabilitation program or subsequently influence the plan of care. ATTESTATION: Considering all the information above, it is my best judgment that this patient requires intensive rehabilitation therapy as described above and an inpatient hospital environment due to the complexity of nursing, medical, and rehabilitation needs required by the patient. Furthermore, this patient can reasonably be expected to participate in an benefit from an inpatient rehabilitation stay with an interdisciplinary team approach to the delivery of rehabilitation care under the direction and supervision of rehabilitation physician. PROGNOSIS: good ESTIMATED LENGTH OF STAY:10-14 days. PROJECTED DISCHARGE DESTINATION: Home with family support and any durable medical equipment required to increase functional safety and mobility. TIME SPENT COUNSELING AND COORDINATING INITIAL CARE: Greater than 70 minutes. Vital Signs please see EMR Home Medications Scheduled Heparin Sodium,Porcine (Heparin Sodium) 5,000 Unit/1 Ml Vial, 5,000 UNITS SC Q12H Insulin Human Lispro (Humalog) 100 Unit/1 Ml Vial, 0 UNITS SC Q6H Methylprednisolone (Solu-Medrol 125 mg Vial) 125 Mg/2 Ml Vial, 60 MG IV Q8H Metoprolol Tartrate (Metoprolol Tartrate) 5 Mg/5 Ml Vial, 5 MG IV Q12H Scheduled PRN Albuterol Sulfate (Albuterol Sulfate) 2.5 Mg/0.5 Ml Vial.neb, 2.5 MG INH Q2H PRN for SOB/WHEEZING Alprazolam (Alprazolam) 0.25 Mg Tablet, 0.25 MG PO TID PRN for ANXIETY Lorazepam (Ativan) 2 Mg/1 Ml Vial, 1 MG IV Q6HP PRN for ANXIETY/AGITATION Morphine Sulfate (Morphine Sulfate) 2 Mg/1 Ml Vial, 2 MG IV Q1H PRN for SEVERE PAIN (PS 8-10) Allergies Coded Allergies: aspirin (Verified Allergy, Severe, LIPS SWELL, 03/29/19) Penicillins (Verified Allergy, Intermediate, RASH, 04/15/19) ampicillin (Verified Allergy, Intermediate, HIVES, 03/17/19) ceftriaxone (Verified Allergy, Unknown, UNKNOWN REACTION, 04/09/19) A-FIB/CHADSVASC A-FIB History Current/History of A-Fib/PAF?: No REG MORALES MD Apr 28, 2020 15:41
[2020-04-28 15:50] VITALS: BP 114/72
[2020-04-28] MEDS: IPRATROPIUM 0.5MG/ALBUTEROL 2.5MG INH SOL UD 3ML (DUONEB) NEB SCH (16:00)
[2020-04-28] MEDS ORDERED: PILL CUTTER 1 EACH XX PRN (17:00)
[2020-04-28] MEDS ORDERED: PRED10TA2 PO (17:46)
[2020-04-28] MEDS ORDERED: MIRA3350 PO (17:46)
[2020-04-28] MEDS ORDERED: PRED5TA PO (17:46)
[2020-04-28] MEDS ORDERED: CALC1CAP31 PO (17:46)
[2020-04-28] MEDS ORDERED: IBUP40TA PO (17:46)
[2020-04-28] MEDS ORDERED: ATOR1TAB21 PO (17:46)
[2020-04-28] MEDS ORDERED: CLOP75TA2 PO (17:46)
[2020-04-28] MEDS ORDERED: SILV50CR TOP (17:46)
[2020-04-28] MEDS ORDERED: SPIR12.9 INH (17:46)
[2020-04-28] MEDS ORDERED: MORP-69 PO (17:46)
[2020-04-28] MEDS ORDERED: OYST500T91 PO (17:46)
[2020-04-28] MEDS ORDERED: PANT20TA51 PO (17:46)
[2020-04-28] MEDS ORDERED: COQ1200C PO (17:46)
[2020-04-28] MEDS ORDERED: DULO1CAP6 PO (17:46)
[2020-04-28] MEDS ORDERED: CARV6.25 PO (17:46)
[2020-04-28] MEDS ORDERED: ACET-907 PO (17:46)
[2020-04-28] MEDS ORDERED: OXYC-1 PO (17:46)
[2020-04-28] MEDS ORDERED: RA S8.6T3 PO (17:46)
[2020-04-28] MEDS ORDERED: NALD0.2T PO (17:46)
[2020-04-28] MEDS ORDERED: MORP15TA2 PO (17:46)
[2020-04-28] MEDS ORDERED: FEBU80TA PO (17:46)
[2020-04-28] MEDS ORDERED: VITMTA PO (17:46)
[2020-04-28] MEDS: ACETAMINOPHEN 500 MG TAB PO SCH ×2 (18:06→20:48)
[2020-04-28 20:00] VITALS: BP 131/58
[2020-04-28] MEDS: HEPARIN SOD (PORCINE) 5000UNITS/ML VIAL (J1644 PER 1000UNITS) SC SCH ×2 (20:46→20:53)
[2020-04-28] MEDS: CO-ENZYME Q10 50 MG CAP PO SCH (20:46)
[2020-04-28] MEDS: DOCUSATE SODIUM 100 MG CAP PO SCH ×2 (20:47→20:53)
[2020-04-28] MEDS: CARVedilol 3.125 MG TAB PO SCH (20:47)
[2020-04-28] MEDS: SENNA 8.6 MG TAB (SENOKOT) PO SCH ×2 (20:47→20:53)
[2020-04-28] MEDS: SILVER SULFADIAZINE 1% CR 50 GM JAR TOP SCH (20:48)
[2020-04-28] MEDS: REMEDY PHYTOPLEX Z-GUARD PASTE 113GM TUBE (FROM STOREROOM PRODUCT) TOP SCH (20:51)
[2020-04-29 06:00] VITALS: BP 126/70
[2020-04-29] MEDS: MORPHINE 30 MG TAB **MSIR PO PRN (06:50)
[2020-04-29] MEDS: TIOTROPIUM INHALER/CAPSULE (SPIRIVA) INH SCH (07:04)
[2020-04-29] MEDS: HEPARIN SOD (PORCINE) 5000UNITS/ML VIAL (J1644 PER 1000UNITS) SC SCH ×3 (08:38→20:45)
[2020-04-29] MEDS: CALCITRIOL 0.25 MCG CAP (S0169) PO SCH (08:39)
[2020-04-29] MEDS: FUROSEMIDE 20 MG TAB PO SCH ×2 (08:39→08:43)
[2020-04-29] MEDS: CO-ENZYME Q10 50 MG CAP PO SCH ×2 (08:39→20:44)
[2020-04-29] MEDS: CALCIUM/VITAMIN D 500 MG TAB PO SCH (08:39)
[2020-04-29] MEDS: MULTIVITAMINS/MINERALS THERAP 1 TAB PO SCH (08:39)
[2020-04-29] MEDS: DULoxetine 30 MG CAP (CYMBALTA) PO SCH (08:39)
[2020-04-29] MEDS: predniSONE 10 MG TAB PO SCH (08:40)
[2020-04-29] MEDS: DOCUSATE SODIUM 100 MG CAP PO SCH ×3 (08:40→20:50)
[2020-04-29] MEDS: ATORVASTATIN 20 MG TAB PO SCH (08:40)
[2020-04-29] MEDS: ACETAMINOPHEN 500 MG TAB PO SCH ×3 (08:40→20:44)
[2020-04-29] MEDS: PANTOPRAZOLE 40MG TAB (PROTONIX) PO SCH (08:40)
[2020-04-29] MEDS: CLOPIDOGREL 75 MG TAB PO SCH (08:40)
[2020-04-29] MEDS: CARVedilol 3.125 MG TAB PO SCH ×2 (08:42→20:46)
[2020-04-29] MEDS: REMEDY PHYTOPLEX Z-GUARD PASTE 113GM TUBE (FROM STOREROOM PRODUCT) TOP SCH ×3 (09:00→20:46)
[2020-04-29 09:10] LABS: HEMATOCRIT 33.3 % (42.0-52.0); HEMOGLOBIN 10.7 g/dl (13.5-17.5); MEAN CORPUSCULAR HEMOGLOBIN 32.9 pg (27.0-33.0); MEAN CORPUSCULAR HGB CONC 32.1 g/dl (32.0-36.5); MEAN CORPUSCULAR VOLUME 102.5 fl (80.0-96.0); PLATELET COUNT, AUTOMATED 180 10^3/uL (150-450); RED BLOOD COUNT 3.25 10^6/uL (4.30-6.10); WHITE BLOOD COUNT 16.3 10^3/uL (4.0-10.0)
[2020-04-29 09:40] LABS: CALCIUM LEVEL 8.5 MG/DL (8.8-10.2); CREATININE FOR GFR 3.27 MG/DL (0.70-1.30); GLOMERULAR FILTRATION RATE 19.8 (>42); POTASSIUM SERUM 3.7 MEQ/L (3.5-5.1)
[2020-04-29] MEDS ORDERED: DARBEPOETIN 200MCG/0.4ML *DIALYSIS* SYRINGE (J0882 PER 1MCG) IV SCH (09:45)
[2020-04-29 10:08] LABS: LYMPHOCYTES 21 % (16-44); METAMYELOCYTES 1 % (0-0); MONOCYTES 4 % (0-5); NEUTROPHILS 73 % (28-66); PLATELET ESTIMATE NORMAL (NORMAL); POLYCHROMASIA 1+
--- NOTE | 2020-04-29 11:52 | CR.PDOC ---
General Date of Consultation: Apr 29, 2020 Referring Provider: REG MORALES MD Attending Physician: BUSTER ANN MD Consultation REASON FOR NEPHROLOGY CONSULTATION: Management of end-stage renal disease and hemodialysis HISTORY OF PRESENT ILLNESS: Maik is a 74-year-old male with PMHx of end-stage renal disease on Friday, Friday, Friday hemodialysis treatments, chronic diastolic congestive heart failure, type 2 diabetes mellitus, and other comorbidities further detailed in past medical history section. He was admitted to [facility] from 04/20 through 04/24 with a left femoral head collapse as result of a left acetabular wall fracture. He was transferred to [place] for evaluation for a potential left total hip arthroplasty. He was discharged from [place] yesterday (04/28) after it was determined that arthroplasty is contraindicated at this time as result of his multiple comorbidities. He has been transferred back to [facility] for physical medicine rehabilitative care in the acute rehabilitation unit. He will continue with hemodialysis treatments as well while in ARU. Markell was seen and examined this morning by the nephrology service while in the acute rehabilitation unit. He reports undergoing his regularly scheduled Friday hemodialysis yesterday in [place]. He denies any fever, chills, chest pain, or shortness of breath at time of visit. ALLERGIES: Please see below. HOME MEDICATIONS: Please see below. PAST MEDICAL HISTORY: End-stage renal disease on hemodialysis (MWF) Anemia secondary to ESRD. Type 2 diabetes mellitus. Pulmonary hypertension Chronic diastolic congestive heart failure. Coronary artery disease s/p coronary artery bypass graft. History of mitral valve prosthesis and aortic stenosis. Chronic gout secondary to seek ED s/p transurethral resection of bladder tumor. Restrictive lung disease. ABELARDO. Chronic back pain s/p spinal cord stimulator implantation. Anxiety PAST SURGICAL HISTORY: Status post left arm AV fistula. History of tunnel dialysis catheter placement in the past. Status post right knee surgery FAMILY HISTORY: There is no significant family history of ESRD requiring hemodialysis SOCIAL HISTORY: Patient denies any history of alcohol abuse, illicit drug use, or smoking REVIEW OF SYSTEMS: CONSTITUTIONAL: Denies fevers, chills, or night sweats EYES: Denies diplopia or blurry vision ENT: Denies dysphagia or odynophagia CARDIOVASCULAR: Denies chest pain, chest pressure, or palpitations. RESPIRATORY: Denies shortness of breath, cough, or pleuritic chest pain GASTROINTESTINAL: Denies abdominal pain, nausea, or vomiting GENITOURINARY: Endorses recent decreased urine output. Denies dysuria, hematuria MSK: Endorses significant difficulty ambulating under his own power secondary to left hip fracture and associated pain INTEGUMENTARY: Endorses bilateral lower extremity edema NEUROLOGY: Denies any recent syncope, history of CVA or seizures PSYCHIATRIC: Denies depression or anxiety ENDOCRINE: Endorses history of DM 2. Denies heat or cold intolerance HEMATOLOGIC: Denies easy bleeding or bruising PHYSICAL EXAMINATION: VITAL SIGNS: Please see below. GENERAL APPEARANCE: Elderly male sitting upright in wheelchair at time of exam. No acute distress. Alert and oriented 3. HEENT: Normocephalic, atraumatic. Wearing eyeglasses. Noninjected, anicteric sclera. Neck is supple with no thyromegaly, lymphadenopathy, or JVD appreciated. RESPIRATORY: Lungs are clear to auscultation bilaterally with no adventitious breath sounds appreciated. Symmetric chest expansion. Breathing room air and speaking full sentences. CARDIOVASCULAR: Regular rate and rhythm. +S1, S2. No JVD. 2+ radial pulses bilaterally. 2+ bilateral lower extremity pitting edema present. ABDOMEN: Soft, nontender with normoactive bowel sounds throughout. Mild to moderate amount of abdominal wall edema was present. No guarding or rigidity appreciated. EXTREMITIES: Bilateral lower extremity Bi2+ pitting edema lateral upper extremity pitting edema, LUE>RUE. No cyanosis or clubbing noted. AV fistula present in left arm. MUSCULOSKELETAL: Decreased range of motion with significantly compromised ability to ambulate under own power due to left hip and leg pain. NEUROLOGICAL: Awake, alert and oriented 3. No focal neurologic deficits appreciated. Non-dysarthric speech. PSYCHIATRIC: Mood and affect appear appropriate. LABORATORY DATA: Please see below. ASSESSMENT/PLAN: #End-stage renal disease on hemodialysis (MWF) -Patient reports undergoing dialysis yesterday for regularly scheduled Friday session while in [facility]. -Due to fluid overload on exam today, patient will be scheduled to undergo an extra ultrafiltration session tomorrow morning (04/30) -Mild hyponatremia (sNa 134) this morning, most likely due to dilution from fluid overload status #Fracture of left acetabular wall with left femoral head collapse -Recently returned after evaluation at [facility] for potential left total hip arthroplasty. Ultimately, arthroplasty was not pursued due to extensive comorbidities. 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 He underwent his regularly scheduled Friday hemodialysis yesterday. A subsequent ultrafiltration dialysis will be scheduled for tomorrow morning (04/30), to help with further fluid removal. -qd furosemide and bid carvedilol ordered #Coronary artery disease s/p coronary artery bypass grafting -In addition to carvedilol, patient's atorvastatin and clopidogrel been continued Thank you for involving the nephrology service in the care of Markell. We are happy to continue to follow him along in conjunction with the acute rehab service. Vital Signs/I&O Vital Signs Date Time Temp Pulse Resp B/P (MAP) Pulse Ox O2 Delivery O2 Flow Rate FiO2 04/29/20 08:42 64 108/50 04/29/20 08:37 18 04/29/20 06:00 97.9 98 Nasal Cannula 2.0 I&O- Last 24 Hours up to 6 AM 04/29/20 06:00 Intake Total 520 ml Output Total 0 ml Balance 520 ml Laboratory Data Labs 24H Laboratory Tests 2 04/28/20 16:36: Bedside Glucose (Misc Panel) 151H 04/28/20 19:44: Bedside Glucose (Misc Panel) 136H 04/29/20 05:33: Bedside Glucose (Misc Panel) 84 04/29/20 08:57: Immature Granulocyte % (Auto) , Neutrophils (%) (Auto) , Nucleated Red Blood Cells % (auto) 0.0, Neutrophils 73H, Band Neutrophils 1, Lymphocytes (Manual) 21, Monocytes (Manual) 4, Metamyelocytes 1H, Polychromasia 1+, Macrocytosis 1+, Platelet Estimate NORMAL, Anion Gap 7L, Glomerular Filtration Rate 19.8L, Calcium Level 8.5L CBC/BMP Laboratory Tests 04/29/20 08:57 Allergies Coded Allergies: aspirin (Verified Allergy, Severe, LIPS SWELL, 03/29/19) Penicillins (Verified Allergy, Intermediate, RASH, 04/15/19) ampicillin (Verified Allergy, Intermediate, HIVES, 03/17/19) ceftriaxone (Verified Allergy, Unknown, UNKNOWN REACTION, 04/09/19) Home Medications Scheduled Acetaminophen (Tylenol) 325 Mg Tablet, 975 MG PO Q8H, (Reported) Atorvastatin Calcium (Atorvastatin Calcium) 20 Mg Tablet, 20 MG PO DAILY, (Reported) Calcitriol (Calcitriol) 0.25 Mcg Capsule, 0.25 MCG PO 3XW, (Reported) SHAJI ADHIKARI, SANTOS Calcium Carbonate/Vitamin D3 (Calcium 500-Vit D3 200 Tablet) 1 Each Tablet, 1 TAB PO DAILY, (Reported) Carvedilol (Carvedilol) 6.25 Mg Tablet, 3.125 MG PO BID, (Reported) DOSE CHANGE FROM 6.25MG BID TO 3.125MG BID AT [facility] Clopidogrel Bisulfate (Clopidogrel) 75 Mg Tablet, 75 MG PO DAILY, (Reported) Duloxetine Hcl (Duloxetine HCl) 60 Mg Capsule.dr, 60 MG PO QHS, (Reported) Febuxostat (Febuxostat) 80 Mg Tablet, 80 MG PO Q2D, (Reported) Morphine Sulfate (Morphine Sulfate ER) 15 Mg Tablet.er, 15 MG PO BID, (Reported) Multivitamins (Thera M Plus Tablet) 1 Each Tablet, 1 TAB PO DAILY, (Reported) Naldemedine Tosylate (Symproic) 0.2 Mg Tablet, 0.2 MG PO DAILY, (Reported) Pantoprazole Sodium (Pantoprazole Sodium) 20 Mg Tablet.dr, 20 MG PO DAILY, (Reported) Polyethylene Glycol 3350 (Miralax) 119 Gm Powder, 17 GM PO DAILY, (Reported) Prednisone (Prednisone) 5 Mg Tablet, 5 MG PO DAILY, (Reported) HOME DOSE - WAS RECEIVING 10MG AT [facility] Sennosides (Senna Lax) 8.6 Mg Tablet, 17.2 MG PO QHS, (Reported) Silver Sulfadiazine (Ssd) 50 Gm Cream..g., 1 DOSE TOP BID, (Reported) APPLY TO RIGHT TOE ULCER Tiotropium [place] (Spiriva Respimat) 4 Gm Mist.inhal, 2 PUFF INH DAILY, (Reported) Ubidecarenone (Co Q-10) 200 Mg Capsule, 200 MG PO BID, (Reported) Scheduled PRN Ibuprofen (Ibuprofen) 400 Mg Tablet, 400 MG PO Q6H PRN for PAIN, (Reported) Morphine Sulfate (Morphine Sulfate) 15 Mg Tablet, 15 MG PO Q6H PRN for PAIN, (Reported) Oxycodone Hcl (Oxycodone HCl) 15 Mg Tablet, 15 MG PO BID PRN for PAIN, (Reported) Attending Note Attending Note Pt was seen and Examined at bedside with the resident today AM. A/P: Anasarca ESRD on HD Lt acetabular fracture and collapse of Lt Femoral head HFpEF CAD s/p CABG CKD MBD Sec Hyperparathyroidism Gout sec to ESRD Extra UF sessions on Friday. Regular HD on Friday Start Torsemide 40 mg. Aranesp for Hb 10-11. GME ATTESTATION GME ATTESTATION My faculty preceptor for this patient encounter was physically present during the encounter and was fully available. All aspects of the patient interview, examination, medical decision making process, and medical care plan development were reviewed and approved by the faculty preceptor. The faculty preceptor is aware and concurs with the plan as stated in the body of this note and will attest to such by his/her cosignature. SYMONE CASTRO D.O. Apr 29, 2020 11:52 BUSTER ANN MD Apr 30, 2020 19:04
[2020-04-29] MEDS: IPRATROPIUM 0.5MG/ALBUTEROL 2.5MG INH SOL UD 3ML (DUONEB) NEB SCH ×2 (12:00→16:00)
--- NOTE | 2020-04-29 12:34 | HPEPDOC ---
General Date of Admission Apr 28, 2020 at 16:37 Date of Service: Apr 29, 2020 Chief Complaint The patient is a 74-year-old male admitted with a reason for visit of Hip Fracture. History of Present Illness 74M pmh ESRD on HD, chronic diastolic CHF with CAD s/p CABG, restrictive lung disease, ABELARDO on CPAP(non-compliant), gout, DM2, bladder cancer, right foot diabetic ulcer who was admitted to [facility] 04-23-20 for a left sided hip fracture thought to be due to AVN in the setting of chronic steroid use. He was originally admitted to our hospital from to 04/23 for left hip pain ongoing for 6 months then gradually worsening ability to ambulate with limping then inability to ambulate needing WC for [address] scan demonstrated left femoral head collapse acetabular protrusio. This would require, a complex total hip arthroplasty or a Girdlestone hip resection arthroplasty not performed here so was transferred to [facility]. There he was evaluated by orthopedics and patient decided to hold off on surgery and to follow-up with Dr. Cesar in 1-2 weeks, but was to remain NWB to the [facility]. He was dialyzed, had leukocytosis and hyponatremia due to ESRD. He was evaluated by therapy, found to have mobility impairments below his prior level of function and deemed medically appropriate for ARU. Home Medications Scheduled Acetaminophen (Tylenol) 325 Mg Tablet, 975 MG PO Q8H, (Reported) Atorvastatin Calcium (Atorvastatin Calcium) 20 Mg Tablet, 20 MG PO DAILY, (Reported) Calcitriol (Calcitriol) 0.25 Mcg Capsule, 0.25 MCG PO 3XW, (Reported) ZEYNEP, SHAJI, SANTOS Calcium Carbonate/Vitamin D3 (Calcium 500-Vit D3 200 Tablet) 1 Each Tablet, 1 TAB PO DAILY, (Reported) Carvedilol (Carvedilol) 6.25 Mg Tablet, 3.125 MG PO BID, (Reported) DOSE CHANGE FROM 6.25MG BID TO 3.125MG BID AT [facility] Clopidogrel Bisulfate (Clopidogrel) 75 Mg Tablet, 75 MG PO DAILY, (Reported) Duloxetine Hcl (Duloxetine HCl) 60 Mg Capsule.dr, 60 MG PO QHS, (Reported) Febuxostat (Febuxostat) 80 Mg Tablet, 80 MG PO Q2D, (Reported) Morphine Sulfate (Morphine Sulfate ER) 15 Mg Tablet.er, 15 MG PO BID, (Reported) Multivitamins (Thera M Plus Tablet) 1 Each Tablet, 1 TAB PO DAILY, (Reported) Naldemedine Tosylate (Symproic) 0.2 Mg Tablet, 0.2 MG PO DAILY, (Reported) Pantoprazole Sodium (Pantoprazole Sodium) 20 Mg Tablet.dr, 20 MG PO DAILY, (Reported) Polyethylene Glycol 3350 (Miralax) 119 Gm Powder, 17 GM PO DAILY, (Reported) Prednisone (Prednisone) 5 Mg Tablet, 5 MG PO DAILY, (Reported) HOME DOSE - WAS RECEIVING 10MG AT [facility] Senside (Senna Lax) 8.6 Mg Tablet, 17.2 MG PO QHS, (Reported) Silver Sulfadiazine (Ssd) 50 Gm Cream..g., 1 DOSE TOP BID, (Reported) APPLY TO RIGHT TOE ULCER Tiotropium [place] (Spiriva Respimat) 4 Gm Mist.inhal, 2 PUFF INH DAILY, (Reported) Ubidecarenone (Co Q-10) 200 Mg Capsule, 200 MG PO BID, (Reported) Scheduled PRN Ibuprofen (Ibuprofen) 400 Mg Tablet, 400 MG PO Q6H PRN for PAIN, (Reported) Morphine Sulfate (Morphine Sulfate) 15 Mg Tablet, 15 MG PO Q6H PRN for PAIN, (Reported) Oxycodone Hcl (Oxycodone HCl) 15 Mg Tablet, 15 MG PO BID PRN for PAIN, (Reported) Allergies Coded Allergies: aspirin (Verified Allergy, Severe, LIPS SWELL, 03/29/19) Penicillins (Verified Allergy, Intermediate, RASH, 04/15/19) ampicillin (Verified Allergy, Intermediate, HIVES, 03/17/19) ceftriaxone (Verified Allergy, Unknown, UNKNOWN REACTION, 04/09/19) Past Medical History Medical History End-stage renal disease on hemodialysis (MWF) Anemia secondary to ESRD. Type 2 diabetes mellitus. Diabetic foot ulcer Restrictive Lung disease/ bilateral basal fibroelastosis. Pulmonary hypertension Chronic diastolic congestive heart failure. Coronary artery disease s/p coronary artery bypass graft. 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 History of mitral valve prosthesis and aortic valve replacement due to aortic stenosis. Chronic gout s/p transurethral resection of bladder tumor. Restrictive lung disease. ABELARDO/ CPAP Chronic back pain s/p spinal cord stimulator implantation. Anxiety Cholelithiasis Surgical History Mitral and aortic valve replacement, spinal cord stimulator, right elbow replacement Status post left arm AV fistula. History of tunnel dialysis catheter placement in the past. Status post right knee surgery Family History Significant Family History: Diabetes, Heart disease Social History * Smoker: former Smoker Alcohol: Denies Drugs: denies A-FIB/CHADSVASC A-FIB History Current/History of A-Fib/PAF?: No Review of Systems Constitutional: Denies: Chills, Fever, Night Sweats Eyes: Denies: Pain, Vision change ENT: Denies: Head Aches, Ear Pain, Dysphagia Skin: Denies: Rash, Lesions, Breakdown Pulmonary: Denies: Dyspnea, Cough Cardiovascular: Denies: Chest Pain, Palpitations, Orthopnea, Paroxysmal Noc. Dyspnea, Lt Headedness Physical Examination General Exam: Positive: Alert, Cooperative, No Acute Distress Eye Exam: Positive: PERRLA, Conjunctiva & lids normal, EOMI; Negative: Sclera icteric ENT Exam: Positive: Atraumatic, Mucous membr. moist/pink, Pharynx Normal Neck Exam: Positive: Supple; Negative: JVD, thyromegaly Chest Exam: Positive: Normal air movement, Other (bilateral crackles.); Negative: Rales, Rhonchi, Wheezing Heart Exam: Positive: Rate Normal, Regular Rhythm, Normal S1, Normal S2; Negative: Murmurs, Rubs Abdomen Exam: Positive: Normal bowel sounds, Soft; Negative: Tenderness, Hepatospenomegaly Extremity Exam: Positive: Other (bilateral heel floats) Skin Exam: Positive: Other skin issue (bilateral stasis ulcers.) Neuro Exam: Positive: Normal Speech, Normal Tone, Sensation Intact Vital Signs Vital Signs Date Time Temp Pulse Resp B/P (MAP) Pulse Ox O2 Delivery O2 Flow Rate FiO2 04/29/20 08:42 64 108/50 04/29/20 08:37 18 04/29/20 06:00 97.9 98 Nasal Cannula 2.0 Laboratory Data Labs 24H Laboratory Tests 2 04/28/20 16:36: Bedside Glucose (Misc Panel) 151H 04/28/20 19:44: Bedside Glucose (Misc Panel) 136H 04/29/20 05:33: Bedside Glucose (Misc Panel) 84 04/29/20 08:57: Immature Granulocyte % (Auto) , Neutrophils (%) (Auto) , Nucleated Red Blood Cells % (auto) 0.0, Neutrophils 73H, Band Neutrophils 1, Lymphocytes (Manual) 21, Monocytes (Manual) 4, Metamyelocytes 1H, Polychromasia 1+, Macrocytosis 1+, Platelet Estimate NORMAL, Anion Gap 7L, Glomerular Filtration Rate 19.8L, Calcium Level 8.5L CBC/BMP Laboratory Tests 04/29/20 08:57 Assessment/Plan 74 M pmh ESRD on HD, chronic diastolic CHF with CAD s/p CABG, Mitral and Aortic Valve replacement by bioprosthetic valve, restrictive lung disease, ABELARDO on CPAP(non-compliant), gout, DM2, bladder cancer, right foot diabetic ulcer who was admitted to [facility] 04-23-20 for a left sided hip fracture thought to be due to AVN in the setting of chronic steroid use. He was originally admitted to our hospital from to 04/23 for left hip pain ongoing for 6 months then gradually worsening ability to ambulate with limping then inability to ambulate needing WC. CT scan demonstrated left femoral head collapse acetabular protrusio. As per our orthopedic surgeon this would require, a complex total hip arthroplasty or a Girdlestone hip resection arthroplasty not performed here so was transferred to [facility]. There he was evaluated by orthopedics and patient decided to hold off on surgery and to follow-up with Dr. Cesar in 1-2 weeks, but was to remain NWB to the [facility]. He was dialyzed, had leukocytosis and hyponatremia due to ESRD. He also had acute encephalopathy/delirium due to opiates. He was evaluated by therapy, found to have mobility impairments below his prior level of function and deemed medically appropriate for ARU. Left Hip Fracture due to AVN Non surgical management for now Dr. Cesar in 1-2 weeks, patient may reconsider surgery NWB PT/OT as per ARU. ESRD- HD --, renal consulted to follow continuing HD. Chronic diastolic CHF daily weights, fluids restrict, fluid management per renal NIDDM sugars controlled without meds FS bid HLD statin CAD sp CABD c/u beta-faisal and plavix ABELARDO non compliant with CPAP c/u nocturnal oxygen, restrictive lung disease Duonebs Gout uloric Eczema, c/u low dose oral steroids Pain cymbalta and morphine 15mg IR q6h prn watch for any delirium/sedation/encephalopathy Right toe ulcer c/u dressing changes Plan / VTE VTE Prophylaxis Ordered?: Yes TUTU VALLEJO MD Apr 29, 2020 12:34
[2020-04-29 14:00] VITALS: BP 124/63
[2020-04-29] MEDS: SILVER SULFADIAZINE 1% CR 50 GM JAR TOP SCH ×2 (17:40→20:47)
[2020-04-29 20:00] VITALS: BP 139/66
[2020-04-29] MEDS: SENNA 8.6 MG TAB (SENOKOT) PO SCH ×2 (20:45→20:50)
[2020-04-30 06:00] VITALS: BP 143/68
[2020-04-30] MEDS: TIOTROPIUM INHALER/CAPSULE (SPIRIVA) INH SCH (07:13)
[2020-04-30] MEDS: MORPHINE 30 MG TAB **MSIR PO PRN ×3 (07:49→21:37)
[2020-04-30] MEDS ORDERED: predniSONE 5 MG TAB PO SCH (09:00)
[2020-04-30] MEDS: CARVedilol 3.125 MG TAB PO SCH ×2 (09:00→20:51)
[2020-04-30] MEDS: REMEDY PHYTOPLEX Z-GUARD PASTE 113GM TUBE (FROM STOREROOM PRODUCT) TOP SCH ×3 (09:00→20:51)
[2020-04-30] MEDS: HEPARIN SOD (PORCINE) 5000UNITS/ML VIAL (J1644 PER 1000UNITS) SC SCH ×2 (09:00→20:49)
[2020-04-30] MEDS: FUROSEMIDE 20 MG TAB PO SCH (09:00)
[2020-04-30] MEDS: ACETAMINOPHEN 500 MG TAB PO SCH ×3 (09:00→20:49)
[2020-04-30] MEDS: PANTOPRAZOLE 40MG TAB (PROTONIX) PO SCH (09:57)
[2020-04-30] MEDS: CLOPIDOGREL 75 MG TAB PO SCH (09:57)
[2020-04-30] MEDS: DULoxetine 30 MG CAP (CYMBALTA) PO SCH (09:58)
[2020-04-30] MEDS: CALCIUM/VITAMIN D 500 MG TAB PO SCH (09:58)
[2020-04-30] MEDS: MULTIVITAMINS/MINERALS THERAP 1 TAB PO SCH (09:58)
[2020-04-30] MEDS: predniSONE 10 MG TAB PO SCH (09:58)
[2020-04-30] MEDS: CO-ENZYME Q10 50 MG CAP PO SCH ×2 (09:58→20:50)
[2020-04-30] MEDS: ATORVASTATIN 20 MG TAB PO SCH (09:58)
[2020-04-30] MEDS: DOCUSATE SODIUM 100 MG CAP PO SCH ×2 (09:58→20:50)
[2020-04-30] MEDS: FEBUXOSTAT 40 MG TABLET (ULORIC) PO SCH (09:59)
[2020-04-30] MEDS ORDERED: LIDOCAINE 1% SDV 5ML VIAL SQ ONE (10:00)
[2020-04-30] MEDS: IPRATROPIUM 0.5MG/ALBUTEROL 2.5MG INH SOL UD 3ML (DUONEB) NEB SCH ×2 (12:00→16:00)
[2020-04-30] MEDS: SILVER SULFADIAZINE 1% CR 50 GM JAR TOP SCH ×2 (12:30→20:51)
[2020-04-30 14:00] VITALS: BP 124/60
[2020-04-30] MEDS: TORSEMIDE 20 MG TAB PO SCH (16:05)
[2020-04-30 20:00] VITALS: BP 129/67
--- NOTE | 2020-04-30 20:18 | IPN ---
DATE: 04/30/2020 SUBJECTIVE: The patient was seen and examined at the bedside today morning during hemodialysis procedure. He is getting the ultrafiltration done because of the anasarca. The patient is tolerating the procedure well. He denies any active complaints apart from pain in the left hip and inability to walk. OBJECTIVE: Vital signs: Temperature is 97 degrees Fahrenheit, blood pressure 124/60, pulse is 80, respiratory of 19, saturating 96% on room air. Intake and output: There is no urine output recorded. Weight in the bed scale is 92 kg. PHYSICAL EXAMINATION: General: The patient is awake, alert, oriented x3, laying in bed getting ultrafiltration done with hemodialysis. Head and neck exam: Extraocular muscles intact. Pupils equally round and reactive to light. Mucous membranes are moist. Neck is supple. There is no JVD. Cardiovascular: S1, S2, 2 to 3+ edema of the bilateral lower extremities. Respiratory: Mildly decreased breath sounds at the bases, otherwise no rales or rhonchi. Abdomen: Soft, positive bowel sounds. Nontender. No organomegaly. Musculoskeletal: The patient has decreased range of movement of the left leg, 3+ edema as mentioned above. RVDA MASTER CERTIFIED RV TECHNICIAN: No focal deficit. Power is 5/5 in all extremities. LABORATORY REVIEW: Complete blood count (CBC) and basic metabolic panel (BMP) from yesterday. No new labs available from today. CURRENT INPATIENT MEDICATIONS: No new medication changes today apart from a decrease in his prednisone dose regimen that has been decreased to 5 mg by mouth daily ASSESSMENT/PLAN: 1. End-stage renal disease. The patient's regular dialysis days are Friday, Friday, Friday. However, because of fluid overload, he is getting extra session of ultrafiltration done. Next dialysis session will be done tomorrow morning. 2. Anemia and end-stage renal disease. The patient has been started on Aranesp 200 mcg IV with dialysis. 3. Secondary hyperparathyroidism. Continue current dose of calcitriol by mouth three times a week. 4. Chronic diastolic congestive heart failure. Volume status is decompensated. He is getting extra ultrafiltration today. Further fluid removal will be done with dialysis tomorrow and I have started him on torsemide 40 mg by mouth daily. 5. Fracture of the left acetabular wall with left femoral head collapse. The patient did not get any surgery done at [facility] because of medical comorbidities. He is getting physical therapy done at this time. [facility]
[2020-04-30] MEDS: SENNA 8.6 MG TAB (SENOKOT) PO SCH (20:50)
[2020-05-01 05:29] VITALS: BP 156/67
[2020-05-01] MEDS: TIOTROPIUM INHALER/CAPSULE (SPIRIVA) INH SCH (07:22)
[2020-05-01] MEDS: TORSEMIDE 20 MG TAB PO SCH (07:58)
[2020-05-01] MEDS: DOCUSATE SODIUM 100 MG CAP PO SCH ×2 (07:58→21:23)
[2020-05-01] MEDS: CO-ENZYME Q10 50 MG CAP PO SCH ×2 (07:58→21:20)
[2020-05-01] MEDS: CLOPIDOGREL 75 MG TAB PO SCH (07:59)
[2020-05-01] MEDS: CALCIUM/VITAMIN D 500 MG TAB PO SCH (07:59)
[2020-05-01] MEDS: DULoxetine 30 MG CAP (CYMBALTA) PO SCH (07:59)
[2020-05-01] MEDS: CARVedilol 3.125 MG TAB PO SCH ×2 (07:59→21:24)
[2020-05-01] MEDS: PANTOPRAZOLE 40MG TAB (PROTONIX) PO SCH (07:59)
[2020-05-01] MEDS: MULTIVITAMINS/MINERALS THERAP 1 TAB PO SCH (08:00)
[2020-05-01] MEDS: ATORVASTATIN 20 MG TAB PO SCH (08:00)
[2020-05-01] MEDS: predniSONE 5 MG TAB PO SCH (08:00)
[2020-05-01] MEDS: HEPARIN SOD (PORCINE) 5000UNITS/ML VIAL (J1644 PER 1000UNITS) SC SCH ×2 (08:00→21:20)
[2020-05-01] MEDS: ACETAMINOPHEN 500 MG TAB PO SCH ×3 (08:00→21:23)
[2020-05-01] MEDS: SILVER SULFADIAZINE 1% CR 50 GM JAR TOP SCH ×2 (08:01→21:28)
[2020-05-01] MEDS: REMEDY PHYTOPLEX Z-GUARD PASTE 113GM TUBE (FROM STOREROOM PRODUCT) TOP SCH ×3 (08:01→21:00)
[2020-05-01 09:41] LABS: HEMATOCRIT 34.9 % (42.0-52.0); HEMOGLOBIN 11.1 g/dl (13.5-17.5); MEAN CORPUSCULAR HEMOGLOBIN 32.8 pg (27.0-33.0); MEAN CORPUSCULAR HGB CONC 31.8 g/dl (32.0-36.5); MEAN CORPUSCULAR VOLUME 103.3 fl (80.0-96.0); PLATELET COUNT, AUTOMATED 194 10^3/uL (150-450); RED BLOOD COUNT 3.38 10^6/uL (4.30-6.10); WHITE BLOOD COUNT 17.2 10^3/uL (4.0-10.0)
[2020-05-01 10:02] LABS: EOSINOPHILS 5 % (0-3); LYMPHOCYTES 16 % (16-44); METAMYELOCYTES 1 % (0-0); MYELOCYTES 1 % (0-0); NEUTROPHILS 73 % (28-66)
[2020-05-01 10:03] LABS: ANISOCYTOSIS 1+; PLATELET ESTIMATE NORMAL (NORMAL)
[2020-05-01 10:11] LABS: ALBUMIN 3.5 GM/DL (3.2-5.2); CALCIUM LEVEL 9.3 MG/DL (8.8-10.2); CREATININE FOR GFR 4.97 MG/DL (0.70-1.30); GLOMERULAR FILTRATION RATE 12.2 (>42); PHOSPHORUS LEVEL 2.7 MG/DL (2.5-4.9)
[2020-05-01] MEDS: IPRATROPIUM 0.5MG/ALBUTEROL 2.5MG INH SOL UD 3ML (DUONEB) NEB SCH ×2 (12:00→16:00)
--- NOTE | 2020-05-01 12:53 | IPNPDOC ---
PM&R Progress Note DATE OF SERVICE: May 01, 2020 Assistant Store Manager Operations Progress Note Subjective: Patient reporting he feels his legs and arms are much less swollen and that he has no pain presently. He denies fevers, chills, cough. REVIEW OF SYSTEMS: The following is a completed review of systems and has been reviewed. Review of systems otherwise unremarkable. PAIN: Patient self reports left hip pain EYES: No recent vision changes EARS, NOSE, & THROAT: No throat pain, or dysphagia, or rhinorrhea CARDIOVASCULAR: Denies chest pain or palpitations PULMONARY: Denies shortness of breath GASTROINTESTINAL: Denies constipation/diarrhea GENITOURINARY: denies dysuria MUSCULOSKELETAL: left hip fracture NEUROLOGICAL:no tremor or paresthesias HEMATOLOGICAL: +anemia SKIN: right toe ulcer PSYCHIATRIC: Unremarkable All other review of systems found to be negative. PHYSICAL EXAMINATION: VITAL SIGNS: Please see below. GENERAL: Pleasant and cooperative. No acute distress. HEENT: PERRL. Extraocular movements intact. Clear conjunctiva CARDIOVASCULAR: Regular rate and rhythm. No murmurs, rubs, or gallops LUNGS: Clear to auscultation bilaterally. No wheezes. No rhonchi ABDOMEN: Soft, nontender, nondistended. Positive bowel sounds. Normal active bowel sounds NEUROLOGICAL: Alert and oriented times three. Cranial nerves II through XII grossly intact. Sensation grossly intact EXTREMITIES: 5\5 strength bilateral upper extremities. 5\5 strength right lower extremity. 3/5 strength in left lower extremity (limited due to fracture) +generalized edema improved SKIN: right 2nd toe ulcer, sacrum with blanchable erythema, scattered ulcer on his bilat calves ASSESSMENT:74-year-old M with past medical history of ESRD who presents status post left hip fracture non-operative PLAN: 1. rehab- PT/OT, advance mobiltiy and ADLs, strengthen/stretch/maintain ROM all 4limbs, energy conservation 2. Neuro- recent encephalopathy while on opioids, monitor closely while home dose of morphine 3. cardiac- chronic diastolic CHF, daily weights, fluids restrict, fluid management per renal -medicine consulted to assist in overall management -HLD- statin -CAD sp CABD c/u beta-faisal and plavix 4. resp- hx of ABELRADO non compliant with CPAP- c/u nocturnal oxygen, restrictive lung disease, c/u Duonebs and spiriva -monitor for infection 5. Ortho- s/p left hip fracture likely due to chronic steroids causing AVN-NWB to the LLE, f/u with Dr. Cesar in 1-2 weeks, patient may reconsider surgery 6. renal- ESRD- HD , renal consulted to follow -c/u Torsemide per renal recs 7. Rheum- hx of eczema, c/u low dose oral steroids, c/u Uloric for hx of gout 8. Pain- cymbalta and morphine 15mg IR q6h prn (this is his home dose that he has taken for years without complication (hold for AMS or RR <12) 9. Skin- right toe ulcer c/u dressing changes, bilat LE per dressing change orders 10. Leukocytosis suspect due to chronic steroid use and inflammatory in setting of ESRD and hip fracture, no fever or signs of infection 11. DVT ppx- heparin 12. GI ppx- protonix 13. Dispo- 05/13/20 to home, progressing towards goals Allergies Coded Allergies: aspirin (Verified Allergy, Severe, LIPS SWELL, 03/29/19) Penicillins (Verified Allergy, Intermediate, RASH, 04/15/19) ampicillin (Verified Allergy, Intermediate, HIVES, 03/17/19) ceftriaxone (Verified Allergy, Unknown, UNKNOWN REACTION, 04/09/19) Vital Signs Vital Signs Date Time Temp Pulse Resp B/P (MAP) Pulse Ox O2 Delivery O2 Flow Rate FiO2 05/01/20 07:59 77 156/67 05/01/20 05:29 97.0 16 100 Room Air 04/30/20 06:00 2.0 Laboratory Data CBC/BMP Laboratory Tests 05/01/20 09:20 Labs 24H Laboratory Tests 2 04/30/20 16:36: Bedside Glucose (Misc Panel) 186H 04/30/20 20:02: Bedside Glucose (Misc Panel) 145H 05/01/20 05:07: Bedside Glucose (Misc Panel) 117H 05/01/20 09:20: Immature Granulocyte % (Auto) , Neutrophils (%) (Auto) , Nucleated Red Blood Cells % (auto) 0.0, Neutrophils 73H, Band Neutrophils 4, Lymphocytes (Manual) 16, Eosinophils (Manual) 5H, Metamyelocytes 1H, Myelocytes 1H, Basophilic Stippling 1+, Anisocytosis 1+, Platelet Estimate NORMAL, Anion Gap 10, Glomerular Filtration Rate 12.2L, Calcium Level 9.3, Phosphorus Level 2.7, Albumin 3.5 Current Medications Current Medications Current Medications Medications (Trade) Dose Ordered Sig/Frankie Route PRN Reason Start Time Stop Time Status Last Admin Dose Admin Acetaminophen (Tylenol Tab) 1,000 mg TID PO 04/27/20 16:00 04/28/20 16:59 DC Acetaminophen (Tylenol Tab) 1,000 mg TID PO 04/28/20 16:00 05/01/20 08:00 Albuterol/ Ipratropium (Duoneb (Ipr 0.5mg/Alb 2.5mg)) 3 ml BID@1200,1600 NEB 04/28/20 16:00 Atorvastatin Calcium (Lipitor) 20 mg DAILY PO 04/28/20 09:00 04/28/20 17:03 DC Atorvastatin Calcium (Lipitor) 20 mg DAILY PO 04/29/20 09:00 05/01/20 08:00 Calcitriol (Rocaltrol) 0.25 mcg TuThSa@0900 PO 04/29/20 09:00 04/29/20 08:39 Calcium/Vitamin D (Oscal D) 500 mg DAILY PO 04/28/20 09:00 04/28/20 17:03 DC Calcium/Vitamin D (Oscal D) 500 mg DAILY PO 04/29/20 09:00 05/01/20 07:59 Carvedilol (COReg) 3.125 mg BID PO 04/27/20 21:00 04/28/20 16:59 DC Carvedilol (COReg) 3.125 mg BID PO 04/28/20 21:00 05/01/20 07:59 Clopidogrel Bisulfate (PLAVix) 75 mg DAILY PO 04/28/20 09:00 04/28/20 17:04 DC Clopidogrel Bisulfate (PLAVix) 75 mg DAILY PO 04/29/20 09:00 05/01/20 07:59 Coenzyme Q10 (Coenzyme Q10) 200 mg BID PO 04/27/20 21:00 04/28/20 17:00 DC Coenzyme Q10 (Coenzyme Q10) 200 mg BID PO 04/28/20 21:00 05/28/20 20:59 05/01/20 07:58 Darbepoetin Puneet (Aranesp (Dialysis Use)) 200 mcg HD IV 04/29/20 09:45 Docusate Sodium (Colace) 100 mg BID PO 04/27/20 21:00 04/28/20 17:04 DC Docusate Sodium (Colace) 100 mg BID PO 04/28/20 21:00 05/01/20 07:58 Duloxetine HCl (Cymbalta) 60 mg DAILY PO 04/28/20 09:00 04/28/20 17:04 DC Duloxetine HCl (Cymbalta) 60 mg DAILY PO 04/29/20 09:00 05/01/20 07:59 Febuxostat (Uloric) 80 mg DAILY PO 04/28/20 09:00 04/28/20 14:27 DC Febuxostat (Uloric) 80 mg Q48H PO 04/30/20 09:00 04/30/20 09:59 Furosemide (Lasix) 20 mg DAILY PO 04/29/20 09:00 04/30/20 15:17 DC Furosemide (Lasix) 40 mg DAILY PO 04/28/20 09:00 04/27/20 15:53 DC Heparin Sodium (Porcine) (Heparin) 5,000 units Q12H SC 04/28/20 21:00 05/01/20 08:00 Home Med (Med Rec Complete!) ASDIRECTED XX 04/28/20 18:00 04/28/20 17:49 DC Morphine Sulfate (Msir) 15 mg Q6HP PRN PO SEVERE PAIN (PS 8-10) 04/28/20 16:30 04/30/20 21:37 Multivitamins (Theragram-M) 1 tab DAILY PO 04/28/20 09:00 04/28/20 17:05 DC Multivitamins (Theragram-M) 1 tab DAILY PO 04/29/20 09:00 05/01/20 08:00 Oxycodone HCl (Roxicodone, Oxyir) 5 mg Q6HP PRN PO PAIN 04/28/20 14:30 04/28/20 16:29 DC Pantoprazole Sodium (Protonix) 40 mg DAILY PO 04/28/20 09:00 04/28/20 17:05 DC Pantoprazole Sodium (Protonix) 40 mg DAILY PO 04/29/20 09:00 05/01/20 07:59 Prednisone (Deltasone) 5 mg DAILY PO 05/01/20 09:00 05/01/20 08:00 Prednisone (Deltasone) 6 mg DAILY PO 04/30/20 09:00 04/28/20 15:39 DC Prednisone (Deltasone) 10 mg DAILY PO 04/29/20 09:00 04/30/20 09:01 DC 04/30/20 09:58 Senna (Senokot) 1 tab QHS PO 04/27/20 21:00 04/28/20 17:05 DC Senna (Senokot) 1 tab QHS PO 04/28/20 21:00 04/30/20 20:50 Silver Sulfadiazine (Silvadene 1%) right 2nd toe after clean... BID TOP 04/27/20 21:00 04/28/20 16:57 DC Silver Sulfadiazine (Silvadene 1%) right 2nd toe after clean... BID TOP 04/28/20 21:00 05/01/20 08:01 Tiotropium Mineral (Spiriva Handihaler) 1 inhalation DAILY@08 [facility] 04/28/20 08:00 04/28/20 17:06 DC Tiotropium Mineral (Spiriva Handihaler) 1 inhalation DAILY@08 [facility] 04/29/20 08:00 05/01/20 07:22 Torsemide (Demadex) 40 mg DAILY PO 04/30/20 09:00 05/01/20 07:58 REG MORALES MD May 01, 2020 12:53
--- NOTE | 2020-05-01 13:12 | IPNPDOC ---
Date Seen The patient was seen on 05/01/20. Progress Note SUBJECTIVE: Markell was seen and examined by the nephrology service this morning while sitting in his wheelchair. He underwent ultrafiltration yesterday with approximately 3 L removed. He is slated to undergo his regularly scheduled Friday hemodialysis this afternoon. He continues to be nonweightbearing due to left acetabular fracture, but is undergoing OT and PT every day as a patient in acute rehab. He can feel a difference after yesterday's ultrafiltration, feeling as though his dexterity and range of motion is improved. He is eating and drinking without any issues and did have one void overnight. He denies any fever, chills, night sweats, chest pain, or shortness of breath. OBJECTIVE PHYSICAL EXAMINATION: VITAL SIGNS: Please see below. PHYSICAL EXAMINATION: VITAL SIGNS: Please see below. GENERAL APPEARANCE: Elderly male sitting upright in wheelchair at time of exam. No acute distress. Alert and oriented 3. HEENT: Normocephalic, atraumatic. Wearing eyeglasses. Noninjected, anicteric sclera. Neck is supple with no thyromegaly, lymphadenopathy, or JVD appreciated. RESPIRATORY: Bilateral fine crackles present at lung bases posteriorly. Symmetric chest expansion. Breathing room air and speaking full sentences. CARDIOVASCULAR: Regular rate and rhythm. +S1, S2. 2/6 systolic murmur auscultated best at right parasternal second intercostal space. No JVD. 2+ radial pulses bilaterally. 2+ bilateral lower extremity pitting edema present and 1+ left upper extremity pitting edema. ABDOMEN: Soft, nontender with normoactive bowel sounds throughout. Mild to moderate amount of abdominal wall edema was present. No guarding or rigidity appreciated. EXTREMITIES: Bilateral lower extremity 2+ pitting edema that appears somewhat improved from the weekend. Left upper extremity pitting edema remains present but is improved from the weekend. No cyanosis or clubbing noted. AV fistula present in left arm. MUSCULOSKELETAL: Decreased range of motion with significantly compromised ability to ambulate under own power due to left hip and leg pain. NEUROLOGICAL: Awake, alert and oriented 3. No focal neurologic deficits appreciated. Non-dysarthric speech. PSYCHIATRIC: Mood and affect appear appropriate. LABORATORY DATA, IMAGING STUDIES, MICROBIOLOGY: Please see below. Markell is a 74-year-old male with history of end-stage renal disease on hemodialysis (MWF) who was recently admitted to [facility] after sustaining a left hip fracture. He was transferred to [place] for evaluation with possible goal of left total hip arthroplasty. Due to significant medical comorbidities, the ortho pedic service in [place] did not pursue surgical intervention and he was subsequently discharged back to [facility]. PROBLEMS: #End stage renal disease on hemodialysis -Underwent ultrafiltration yesterday with approximately 3 L removed as a result of anasarca present on 04/29 exam. He is slated to undergo regularly scheduled Friday hemodialysis this afternoon with goal of approximately 3.5 L removed. Should he develop abdominal pain and/or cramping during dialysis, we could potentially back off this initial 3.5 L removal goal. #Chronic diastolic congestive heart failure -He was fluid overloaded on 04/29 exam and underwent an ultrafiltration yesterday (04/30) with ultimately 3 L removed. His fluid status appears to be significant only better today than it was prior to the ultrafiltration and he will be undergoing his regular schedule Friday hemodialysis today. -C/w current furosemide qd and carvedilol bid regimen #Anemia and end-stage renal disease -At time of nephrology evaluation this morning, no labs were ordered since 04/29 when he had macrocytic anemia. Anemia appeared to be around his baseline hemoglobin and MCV from last week's [facility] hospitalization. -He will receive Aranesp concurrently with hemodialysis sessions. 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 -Of note, he received 10 mg of oral prednisone on 04/29 and 04/30 in addition to his daily 5 mg. #Left acetabular wall fracture with collapse of left femoral head -He continues to remain nonweightbearing, but is undergoing daily therapy in acute rehab unit. He feels as though his dexterity and range of motion is improved today after the ultrafiltration yesterday and that his overall pain is relatively well controlled. -Was sent back to [facility] after [place] orthopedics did not pursue surgical intervention due to significant medical comorbidities. -Currently receiving 1 g Tylenol tid and 50 mg oral morphine prn q6h #Chronic gout secondary to chronic kidney disease -Currently receiving oral Uloric q48h #Coronary artery disease s/p coronary artery bypass grafting -Currently receiving both atorvastatin and clopidogrel. In addition to car vedilol. Thank you for allowing the nephrology service to participate in Markell's care. We will continue to monitor him and follow along while he remains in acute rehab and receiving inpatient hemodialysis. VS, I&O, 24H, Fishbone Vital Signs/I&O Vital Signs Date Time Temp Pulse Resp B/P (MAP) Pulse Ox O2 Delivery O2 Flow Rate FiO2 05/01/20 07:59 77 156/67 05/01/20 05:29 97.0 16 100 Room Air 04/30/20 06:00 2.0 I&O- Last 24 Hours up to 6 AM 05/01/20 06:00 Intake Total 480 ml Output Total 3000 ml Balance -2520 ml Laboratory Data 24H LABS Laboratory Tests 2 04/30/20 16:36: Bedside Glucose (Misc Panel) 186H 04/30/20 20:02: Bedside Glucose (Misc Panel) 145H 05/01/20 05:07: Bedside Glucose (Misc Panel) 117H 05/01/20 09:20: Immature Granulocyte % (Auto) , Neutrophils (%) (Auto) , Nucleated Red Blood Cells % (auto) 0.0, Neutrophils 73H, Band Neutrophils 4, Lymphocytes (Manual) 16, Eosinophils (Manual) 5H, Metamyelocytes 1H, Myelocytes 1H, Basophilic Stippling 1+, Anisocytosis 1+, Platelet Estimate NORMAL, Anion Gap 10, Glomerular Filtration Rate 12.2L, Calcium Level 9.3, Phosphorus Level 2.7, Albumin 3.5 CBC/BMP Laboratory Tests 05/01/20 09:20 GME ATTESTATION GME ATTESTATION My faculty preceptor for this patient encounter was physically present during the encounter and was fully available. All aspects of the patient interview, examination, medical decision making process, and medical care plan development were reviewed and approved by the faculty preceptor. The faculty preceptor is aware and concurs with the plan as stated in the body of this note and will attest to such by his/her cosignature. ATTENDING NOTE ESRD on HD Decompensated HFpEF Anemia in ESRd HTN Lt acetabular fracture and collapse of acetabular head Sec Hyperparathyroidism CKD MBD Chronic Gout HD today with UF goal 3L. Continue current diuretic dose. Continue rest of medications. SYMONE CASTRO D.O. May 01, 2020 13:12 BUSTER ANN MD May 02, 2020 12:28
[2020-05-01] MEDS: MORPHINE 30 MG TAB **MSIR PO PRN ×2 (14:33→21:24)
[2020-05-01 20:00] VITALS: BP 132/60
[2020-05-01] MEDS: SENNA 8.6 MG TAB (SENOKOT) PO SCH (21:23)
[2020-05-02] MEDS: MORPHINE 30 MG TAB **MSIR PO PRN ×3 (03:33→22:27)
[2020-05-02 05:28] VITALS: BP 118/56
[2020-05-02] MEDS: TIOTROPIUM INHALER/CAPSULE (SPIRIVA) INH SCH (07:16)
[2020-05-02] MEDS: predniSONE 5 MG TAB PO SCH (07:58)
[2020-05-02] MEDS: HEPARIN SOD (PORCINE) 5000UNITS/ML VIAL (J1644 PER 1000UNITS) SC SCH ×2 (07:58→20:13)
[2020-05-02] MEDS: FEBUXOSTAT 40 MG TABLET (ULORIC) PO SCH (07:59)
[2020-05-02] MEDS: CALCIUM/VITAMIN D 500 MG TAB PO SCH (07:59)
[2020-05-02] MEDS: MULTIVITAMINS/MINERALS THERAP 1 TAB PO SCH (07:59)
[2020-05-02] MEDS: PANTOPRAZOLE 40MG TAB (PROTONIX) PO SCH (07:59)
[2020-05-02] MEDS: CALCITRIOL 0.25 MCG CAP (S0169) PO SCH (08:00)
[2020-05-02] MEDS: DOCUSATE SODIUM 100 MG CAP PO SCH ×2 (08:00→20:14)
[2020-05-02] MEDS: DULoxetine 30 MG CAP (CYMBALTA) PO SCH (08:00)
[2020-05-02] MEDS: ATORVASTATIN 20 MG TAB PO SCH (08:00)
[2020-05-02] MEDS: TORSEMIDE 20 MG TAB PO SCH (08:01)
[2020-05-02] MEDS: CARVedilol 3.125 MG TAB PO SCH ×2 (08:01→20:15)
[2020-05-02] MEDS: CO-ENZYME Q10 50 MG CAP PO SCH ×2 (08:01→20:14)
[2020-05-02] MEDS: CLOPIDOGREL 75 MG TAB PO SCH (08:01)
[2020-05-02] MEDS: REMEDY PHYTOPLEX Z-GUARD PASTE 113GM TUBE (FROM STOREROOM PRODUCT) TOP SCH ×3 (08:02→20:15)
[2020-05-02] MEDS: ACETAMINOPHEN 500 MG TAB PO SCH ×3 (08:02→20:14)
[2020-05-02] MEDS: SILVER SULFADIAZINE 1% CR 50 GM JAR TOP SCH ×2 (08:03→20:16)
--- NOTE | 2020-05-02 09:31 | IPNPDOC ---
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 REVIEW OF SYSTEMS: The following is a completed review of systems and has been reviewed. Review of systems otherwise unremarkable. PAIN: Patient self reports left hip pain EYES: No recent vision changes EARS, NOSE, & THROAT: No throat pain, or dysphagia, or rhinorrhea CARDIOVASCULAR: Denies chest pain or palpitations PULMONARY: Denies shortness of breath GASTROINTESTINAL: Denies constipation/diarrhea GENITOURINARY: denies dysuria MUSCULOSKELETAL: left hip fracture NEUROLOGICAL:no tremor or paresthesias HEMATOLOGICAL: +anemia SKIN: right toe ulcer PSYCHIATRIC: Unremarkable All other review of systems found to be negative. PHYSICAL EXAMINATION: VITAL SIGNS: Please see below. GENERAL: Pleasant and cooperative. No acute distress. HEENT: PERRL. Extraocular movements intact. Clear conjunctiva CARDIOVASCULAR: Regular rate and rhythm. No murmurs, rubs, or gallops LUNGS: Clear to auscultation bilaterally. No wheezes. No rhonchi ABDOMEN: Soft, nontender, nondistended. Positive bowel sounds. Normal active bowel sounds NEUROLOGICAL: Alert and oriented times three. Cranial nerves II through XII grossly intact. Sensation grossly intact EXTREMITIES: 5\5 strength bilateral upper extremities. 5\5 strength right lower extremity. 3/5 strength in left lower extremity (limited due to fracture) +generalized edema improved SKIN: right 2nd toe ulcer, sacrum with blanchable erythema, scattered ulcer on his bilat calves ASSESSMENT:74-year-old M with past medical history of ESRD who presents status post left hip fracture non-operative PLAN: 1. rehab- PT/OT, advance mobiltiy and ADLs, strengthen/stretch/maintain ROM all 4limbs, energy conservation 2. Neuro- recent encephalopathy while on opioids, monitor closely while home dose of morphine 3. cardiac- chronic diastolic CHF, daily weights, fluids restrict, fluid management per renal -medicine consulted to assist in overall management -HLD- statin -CAD sp CABD c/u beta-faisal and plavix 4. resp- hx of ABELARDO non compliant with CPAP- c/u nocturnal oxygen, restrictive lung disease, c/u Duonebs and spiriva -monitor for infection 5. Ortho- s/p left hip fracture likely due to chronic steroids causing AVN-NWB to the LLE, f/u with Dr. Cesar in 1-2 weeks, patient may reconsider surgery -;eft shoulder pain, recent Xray at [facility] showing malalignment, will re-order Xray and consult ortho inhouse for further recs, in the meantime, patient to avoid external rotation with abduction 6. renal- ESRD- HD --, renal consulted to follow -c/u Torsemide per renal recs 7. Rheum- hx of eczema, c/u low dose oral steroids, c/u Uloric for hx of gout 8. Pain- cymbalta and morphine 15mg IR q6h prn (this is his home dose that he has taken for years without complication (hold for AMS or RR <12) 9. Skin- right toe ulcer c/u dressing changes, bilat LE per dressing change orders 10. Leukocytosis suspect due to chronic steroid use and inflammatory in setting of ESRD and hip fracture, no fever or signs of infection 11. DVT ppx- heparin 12. GI ppx- protonix 13. Dispo- 05/13/20 to home, progressing towards goals Allergies Coded Allergies: aspirin (Verified Allergy, Severe, LIPS SWELL, 03/29/19) Penicillins (Verified Allergy, Intermediate, RASH, 04/15/19) ampicillin (Verified Allergy, Intermediate, HIVES, 03/17/19) ceftriaxone (Verified Allergy, Unknown, UNKNOWN REACTION, 04/09/19) Vital Signs Vital Signs Date Time Temp Pulse Resp B/P (MAP) Pulse Ox O2 Delivery O2 Flow Rate FiO2 05/02/20 08:01 91 122/58 05/02/20 05:28 96.9 18 91 Room Air 04/30/20 06:00 2.0 Laboratory Data Labs 24H Laboratory Tests 2 05/01/20 17:02: Bedside Glucose (Misc Panel) 121H 05/02/20 05:33: Bedside Glucose (Misc Panel) 97 Current Medications Current Medications Current Medications Medications (Trade) Dose Ordered Sig/Frankie Route PRN Reason Start Time Stop Time Status Last Admin Dose Admin Acetaminophen (Tylenol Tab) 1,000 mg TID PO 04/27/20 16:00 04/28/20 16:59 DC Acetaminophen (Tylenol Tab) 1,000 mg TID PO 04/28/20 16:00 05/02/20 08:02 Albuterol/ Ipratropium (Duoneb (Ipr 0.5mg/Alb 2.5mg)) 3 ml BID@1200,1600 NEB 04/28/20 16:00 Atorvastatin Calcium (Lipitor) 20 mg DAILY PO 04/28/20 09:00 04/28/20 17:03 DC Atorvastatin Calcium (Lipitor) 20 mg DAILY PO 04/29/20 09:00 05/02/20 08:00 Calcitriol (Rocaltrol) 0.25 mcg TuThSa@0900 PO 04/29/20 09:00 05/02/20 08:00 Calcium/Vitamin D (Oscal D) 500 mg DAILY PO 04/28/20 09:00 04/28/20 17:03 DC Calcium/Vitamin D (Oscal D) 500 mg DAILY PO 04/29/20 09:00 05/02/20 07:59 Carvedilol (COReg) 3.125 mg BID PO 04/27/20 21:00 04/28/20 16:59 DC Carvedilol (COReg) 3.125 mg BID PO 04/28/20 21:00 05/02/20 08:01 Clopidogrel Bisulfate (PLAVix) 75 mg DAILY PO 04/28/20 09:00 04/28/20 17:04 DC Clopidogrel Bisulfate (PLAVix) 75 mg DAILY PO 04/29/20 09:00 05/02/20 08:01 Coenzyme Q10 (Coenzyme Q10) 200 mg BID PO 04/27/20 21:00 04/28/20 17:00 DC Coenzyme Q10 (Coenzyme Q10) 200 mg BID PO 04/28/20 21:00 05/28/20 20:59 05/02/20 08:01 Darbepoetin Puneet (Aranesp (Dialysis Use)) 200 mcg HD IV 04/29/20 09:45 Docusate Sodium (Colace) 100 mg BID PO 04/27/20 21:00 04/28/20 17:04 DC Docusate Sodium (Colace) 100 mg BID PO 04/28/20 21:00 05/02/20 08:00 Duloxetine HCl (Cymbalta) 60 mg DAILY PO 04/28/20 09:00 04/28/20 17:04 DC Duloxetine HCl (Cymbalta) 60 mg DAILY PO 04/29/20 09:00 05/02/20 08:00 Febuxostat (Uloric) 80 mg DAILY PO 04/28/20 09:00 04/28/20 14:27 DC Febuxostat (Uloric) 80 mg Q48H PO 04/30/20 09:00 05/02/20 07:59 Furosemide (Lasix) 20 mg DAILY PO 04/29/20 09:00 04/30/20 15:17 DC Furosemide (Lasix) 40 mg DAILY PO 04/28/20 09:00 04/27/20 15:53 DC Heparin Sodium (Porcine) (Heparin) 5,000 units Q12H SC 04/28/20 21:00 05/02/20 07:58 Home Med (Med Rec Complete!) ASDIRECTED XX 04/28/20 18:00 04/28/20 17:49 DC Morphine Sulfate (Msir) 15 mg Q6HP PRN PO SEVERE PAIN (PS 8-10) 04/28/20 16:30 05/02/20 03:33 Multivitamins (Theragram-M) 1 tab DAILY PO 04/28/20 09:00 04/28/20 17:05 DC Multivitamins (Theragram-M) 1 tab DAILY PO 04/29/20 09:00 05/02/20 07:59 Oxycodone HCl (Roxicodone, Oxyir) 5 mg Q6HP PRN PO PAIN 04/28/20 14:30 04/28/20 16:29 DC Pantoprazole Sodium (Protonix) 40 mg DAILY PO 04/28/20 09:00 04/28/20 17:05 DC Pantoprazole Sodium (Protonix) 40 mg DAILY PO 04/29/20 09:00 05/02/20 07:59 Prednisone (Deltasone) 5 mg DAILY PO 05/01/20 09:00 05/02/20 07:58 Prednisone (Deltasone) 6 mg DAILY PO 04/30/20 09:00 04/28/20 15:39 DC Prednisone (Deltasone) 10 mg DAILY PO 04/29/20 09:00 04/30/20 09:01 DC 04/30/20 09:58 Senna (Senokot) 1 tab QHS PO 04/27/20 21:00 04/28/20 17:05 DC Senna (Senokot) 1 tab QHS PO 04/28/20 21:00 05/01/20 21:23 Silver Sulfadiazine (Silvadene 1%) right 2nd toe after clean... BID TOP 04/27/20 21:00 04/28/20 16:57 DC Silver Sulfadiazine (Silvadene 1%) right 2nd toe after clean... BID TOP 04/28/20 21:00 05/02/20 08:03 Tiotropium [place] (Spiriva Handihaler) 1 inhalation DAILY@08 [facility] 04/28/20 08:00 04/28/20 17:06 DC Tiotropium [place] (Spiriva Handihaler) 1 inhalation DAILY@08 [facility] 04/29/20 08:00 05/02/20 07:16 Torsemide (Demadex) 40 mg DAILY PO 04/30/20 09:00 05/02/20 08:01 REG MORALES MD May 02, 2020 09:31
[2020-05-02] MEDS: IPRATROPIUM 0.5MG/ALBUTEROL 2.5MG INH SOL UD 3ML (DUONEB) NEB SCH ×2 (11:22→15:40)
[2020-05-02 14:00] VITALS: BP 114/58
[2020-05-02] MEDS: SENNA 8.6 MG TAB (SENOKOT) PO SCH (20:14)
[2020-05-02 21:33] VITALS: BP 121/56
--- NOTE | 2020-05-02 23:37 | IPNPDOC ---
Date Seen The patient was seen on 05/02/20. Progress Note SUBJECTIVE: Markell was seen and examined this morning by the nephrology service while sitting in his wheelchair in the acute rehab unit.. He underwent hemodialysis yesterday for his regularly scheduled Friday appointment. This marked [id number] days of hemodialysis as he also received a session of ultrafiltration on Friday (04/30). He reports having some slight cramping during yesterday's hemodialysis in the session was concluded after 3 L of fluid were removed. He continues to work with both occupational and physical therapy and is tolerating the rehabilitation sessions well. He remains nonweightbearing as a result of the left acetabular fracture. He reports having one void and one bowel movement since being seen by our service yesterday. He is eating and drinking without any issues, and denies any current or overnight fever, chills, night sweats, nausea, vomiting, abdominal pain, shortness of breath, or chest pain. OBJECTIVE PHYSICAL EXAMINATION: VITAL SIGNS: Please see below. PHYSICAL EXAMINATION: VITAL SIGNS: Please see below. GENERAL APPEARANCE: Elderly male sitting in wheelchair at time of exam. No acute distress. Alert and oriented 3. HEENT: Normocephalic, atraumatic. Wearing eyeglasses. Noninjected, anicteric sclera. Neck is supple with no thyromegaly, lymphadenopathy, or JVD appreciated. RESPIRATORY: Bilateral fine crackles remain present at lung bases posteriorly. Symmetric chest expansion. Breathing room air and speaking full sentences. CARDIOVASCULAR: Regular rate and rhythm. +S1, S2. 2/6 systolic murmur once again was auscultated and appreciated best at right parasternal second intercostal space. No JVD. 2+ radial pulses bilaterally. Lower extremity pitting edema remains present but is significantly decreased since 04/29. He continues to have some very mild pitting edema of the left upper extremity, but this is also reduced from 04/29. ABDOMEN: Soft, nontender with normoactive bowel sounds throughout. Abdominal wall edema seems to be significantly reduced from previous days. No guarding or rigidity appreciated. EXTREMITIES: Bilateral lower extremity 1-2+ pitting edema that is considerably improved from the weekend. Left upper extremity pitting edema remains present but is also improved significantly since exam on 04/29. No cyanosis or clubbing noted. AV fistula present in left arm. MUSCULOSKELETAL: Patient is nonweightbearing with considerably reduced range of motion and ambulation secondary to left pelvic fracture. NEUROLOGICAL: Awake, alert and oriented 3. No focal neurologic deficits appreciated. Non-dysarthric speech. PSYCHIATRIC: Mood and affect appear appropriate. LABORATORY DATA, IMAGING STUDIES, MICROBIOLOGY: Please see below. Markell is a 74-year-old male with history of end-stage renal disease on hemodialysis (MWF) who was recently admitted to [facility] after sustaining a left hip fracture. He was transferred to [place] for evaluation with possible goal of left total hip arthroplasty. Due to significant medical comorbidities, the orthopedic service in [place] did not pursue surgical intervention and he was subsequently discharged back to [facility]. PROBLEMS: #End stage renal disease on hemodialysis -Patient underwent hemodialysis yesterday, during which 3 L were removed. This was his second consecutive day of dialysis sessions as he underwent ultrafiltration on Friday (04/30). In total over the 2 days, approximately 6 L were removed with considerable improvement in his lower extremity pitting edema. He reported some mild cramping towards the end of yesterday's hemodialysis session that spontaneously resolved, otherwise he has been tolerating his sessions quite well. He will be on target for his next hemodialysis session tomorrow (Friday, 05/03). #Chronic diastolic congestive heart failure -He was fluid overloaded on 04/29 exam and underwent an ultrafiltration on Friday (04/30), with his regular scheduled Friday hemodialysis session yesterday. Over the past 2 days of hemodialysis, approximate 6 L is been removed and his lower extremity pitting edema. Has been significantly improved. -C/w current furosemide qd and carvedilol bid regimen #Anemia and end-stage renal disease -At time of nephrology evaluation this morning, no labs were ordered since 04/29 w hen he had macrocytic anemia. Anemia appeared to be around his baseline hemoglobin and MCV from last week's [facility] hospitalization. -He will continue to receive Aranesp concurrently with hemodialysis sessions. 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 -Of note, he continues to receive his daily 5 mg of prednisone, and also received 10 mg doses on both 04/29 and 04/30. #Left acetabular wall fracture with collapse of left femoral head -He remains nonweightbearing while he undergoes daily occupational therapy and physical therapy sessions in ARU.he is tolerating his therapy sessions well and feels an improvement in terms of his range of motion and dexterity. -Was sent back to [facility] after [place] orthopedics did not pursue surgical intervention due to significant medical comorbidities. -Currently receiving 1 g Tylenol tid and 50 mg oral morphine prn q6h #Chronic gout secondary to chronic kidney disease -Currently receiving oral Uloric q48h #Coronary artery disease s/p coronary artery bypass grafting -Currently receiving both atorvastatin and clopidogrel, in addition to carvedilol. Thank you for allowing the nephrology service to participate in Markell's care. We will continue to monitor him and follow along while he remains in acute rehab and receiving inpatient hemodialysis. Should any questions or concerns arise from a renal standpoint, please do contact us. VS, I&O, 24H, [place] Vital Signs/I&O Vital Signs Date Time Temp Pulse Resp B/P (MAP) Pulse Ox O2 Delivery O2 Flow Rate FiO2 05/02/20 22:57 18 05/02/20 21:33 97.0 64 121/56 (77) 100 Room Air 04/30/20 06:00 2.0 I&O- Last 24 Hours up to 6 AM 05/02/20 06:00 Intake Total 1080 ml Output Total 3000 ml Balance -1920 ml Laboratory Data 24H LABS Laboratory Tests 2 05/02/20 05:33: Bedside Glucose (Misc Panel) 97 05/02/20 16:24: Bedside Glucose (Misc Panel) 180H GME ATTESTATION GME ATTESTATION My faculty preceptor for this patient encounter was physically present during the encounter and was fully available. All aspects of the patient interview, examination, medical decision making process, and medical care plan development were reviewed and approved by the faculty preceptor. The faculty preceptor is aware and concurs with the plan as stated in the body of this note and will a ttest to such by his/her cosignature. ATTENDING NOTE ESRD on Hd LE Edema HFpEF Anemia in ESRd Lt acetabular fracture Chronic Gout Serial HD/UF fir optimization of fluid status. Edema is improving. Cont Aranesp Pain optimization and Rehab as per PM&R. SYMONE CASTRO D.O. May 02, 2020 23:37 BUSTER ANN MD May 07, 2020 11:22
[2020-05-03] MEDS: MORPHINE 30 MG TAB **MSIR PO PRN ×3 (04:35→23:22)
[2020-05-03 05:37] VITALS: BP 117/58
[2020-05-03] MEDS: TIOTROPIUM INHALER/CAPSULE (SPIRIVA) INH SCH (07:22)
[2020-05-03 08:17] LABS: BASO # 0.1 10^3/uL (0.0-0.2); BASO % 0.5 % (0.0-1.0); EOS # 0.2 10^3/uL (0.0-0.5); EOS % 1.1 % (0.0-3.0); HEMATOCRIT 34.4 % (42.0-52.0); LYMPH # 2.5 10^3/uL (1.5-5.0); LYMPH % 16.7 % (24.0-44.0); MEAN CORPUSCULAR VOLUME 103.3 fl (80.0-96.0); MONO # 1.3 10^3/uL (0.0-0.8); MONO % 8.8 % (0.0-5.0); NEUTROPHILS # 10.2 10^3/uL (1.5-8.5); NEUTROPHILS % 68.4 % (36.0-66.0); PLATELET COUNT, AUTOMATED 181 10^3/uL (150-450); RED BLOOD COUNT 3.33 10^6/uL (4.30-6.10); WHITE BLOOD COUNT 14.9 10^3/uL (4.0-10.0)
[2020-05-03] MEDS: HEPARIN SOD (PORCINE) 5000UNITS/ML VIAL (J1644 PER 1000UNITS) SC SCH ×2 (08:18→20:36)
[2020-05-03] MEDS: DOCUSATE SODIUM 100 MG CAP PO SCH ×2 (08:18→20:35)
[2020-05-03] MEDS: DULoxetine 30 MG CAP (CYMBALTA) PO SCH (08:18)
[2020-05-03] MEDS: MULTIVITAMINS/MINERALS THERAP 1 TAB PO SCH (08:18)
[2020-05-03] MEDS: CALCIUM/VITAMIN D 500 MG TAB PO SCH (08:18)
[2020-05-03] MEDS: CO-ENZYME Q10 50 MG CAP PO SCH ×2 (08:18→20:35)
[2020-05-03] MEDS: PANTOPRAZOLE 40MG TAB (PROTONIX) PO SCH (08:19)
[2020-05-03] MEDS: ATORVASTATIN 20 MG TAB PO SCH (08:19)
[2020-05-03] MEDS: CLOPIDOGREL 75 MG TAB PO SCH (08:19)
[2020-05-03] MEDS: predniSONE 5 MG TAB PO SCH (08:19)
[2020-05-03] MEDS: CARVedilol 3.125 MG TAB PO SCH ×2 (08:20→20:37)
[2020-05-03] MEDS: TORSEMIDE 20 MG TAB PO SCH (08:20)
[2020-05-03] MEDS: ACETAMINOPHEN 500 MG TAB PO SCH ×3 (08:20→20:35)
[2020-05-03] MEDS: REMEDY PHYTOPLEX Z-GUARD PASTE 113GM TUBE (FROM STOREROOM PRODUCT) TOP SCH ×3 (08:21→20:36)
[2020-05-03 08:32] LABS: CALCIUM LEVEL 9.6 MG/DL (8.8-10.2); CREATININE FOR GFR 4.72 MG/DL (0.70-1.30); GLOMERULAR FILTRATION RATE 12.9 (>42); POTASSIUM SERUM 3.8 MEQ/L (3.5-5.1)
[2020-05-03] MEDS: SILVER SULFADIAZINE 1% CR 50 GM JAR TOP SCH ×2 (09:00→20:36)
--- NOTE | 2020-05-03 11:05 | IPNPDOC ---
PM&R Progress Note DATE OF SERVICE: May 03, 2020 Enforcement Manager Progress Note Subjective: Patient reporting he is in good spirits today and feels his pain is well controlled. REVIEW OF SYSTEMS: The following is a completed review of systems and has been reviewed. Review of systems otherwise unremarkable. PAIN: Patient self reports left hip pain EYES: No recent vision changes EARS, NOSE, & THROAT: No throat pain, or dysphagia, or rhinorrhea CARDIOVASCULAR: Denies chest pain or palpitations PULMONARY: Denies shortness of breath GASTROINTESTINAL: Denies constipation/diarrhea GENITOURINARY: denies dysuria MUSCULOSKELETAL: left hip fracture NEUROLOGICAL:no tremor or paresthesias HEMATOLOGICAL: +anemia SKIN: right toe ulcer PSYCHIATRIC: Unremarkable All other review of systems found to be negative. PHYSICAL EXAMINATION: VITAL SIGNS: Please see below. GENERAL: Pleasant and cooperative. No acute distress. HEENT: PERRL. Extraocular movements intact. Clear conjunctiva CARDIOVASCULAR: Regular rate and rhythm. No murmurs, rubs, or gallops LUNGS: Clear to auscultation bilaterally. No wheezes. No rhonchi ABDOMEN: Soft, nontender, nondistended. Positive bowel sounds. Normal active bowel sounds NEUROLOGICAL: Alert and oriented times three. Cranial nerves II through XII grossly intact. Sensation grossly intact EXTREMITIES: 5\5 strength bilateral upper extremities. 5\5 strength right lower extremity. 3/5 strength in left lower extremity (limited due to fracture) +generalized edema improved SKIN: right 2nd toe ulcer, sacrum with blanchable erythema, scattered ulcer on his bilat calves ASSESSMENT:74-year-old M with past medical history of ESRD who presents status post left hip fracture non-operative PLAN: 1. rehab- PT/OT, advance mobiltiy and ADLs, strengthen/stretch/maintain ROM all 4limbs, energy conservation 2. Neuro- recent encephalopathy while on opioids, monitor closely while home dose of morphine 3. cardiac- chronic diastolic CHF, daily weights, fluids restrict, fluid management per renal -medicine consulted to assist in overall management -HLD- statin -CAD sp CABD c/u beta-faisal and plavix 4. resp- hx of ABELARDO non compliant with CPAP- c/u nocturnal oxygen, restrictive lung disease, c/u Duonebs and spiriva -monitor for infection 5. Ortho- s/p left hip fracture likely due to chronic steroids causing AVN-NWB to the LLE, f/u with Dr. Cesar in 1-2 weeks, patient may reconsider surgery -;eft shoulder pain, recent X[facility] at [facility] showing malalignment, re-ordered Xray and consulted ortho inhouse for further recs, in the meantime, patient to avoid external rotation with abduction 6. renal- ESRD- HD --, renal consulted to follow -c/u Torsemide per renal recs 7. Rheum- hx of eczema, c/u low dose oral steroids, c/u Uloric for hx of gout 8. Pain- cymbalta and morphine 15mg IR q6h prn (this is his home dose that he has taken for years without complication (hold for AMS or RR <12) 9. Skin- right toe ulcer c/u dressing changes, bilat LE per dressing change orders 10. Leukocytosis suspect due to chronic steroid use and inflammatory in setting of ESRD and hip fracture, no fever or signs of infection 11. DVT ppx- heparin 12. GI ppx- protonix 13. Dispo- 05/13/20 to home, progressing towards goals Allergies Coded Allergies: aspirin (Verified Allergy, Severe, LIPS SWELL, 03/29/19) Penicillins (Verified Allergy, Intermediate, RASH, 04/15/19) ampicillin (Verified Allergy, Intermediate, HIVES, 03/17/19) ceftriaxone (Verified Allergy, Unknown, UNKNOWN REACTION, 04/09/19) Vital Signs Vital Signs Date Time Temp Pulse Resp B/P (MAP) Pulse Ox O2 Delivery O2 Flow Rate FiO2 05/03/20 08:20 74 117/58 05/03/20 05:37 96.8 17 99 Room Air 04/30/20 06:00 2.0 Laboratory Data CBC/BMP Laboratory Tests 05/03/20 07:19 Labs 24H Laboratory Tests 2 05/02/20 16:24: Bedside Glucose (Misc Panel) 180H 05/03/20 05:19: Bedside Glucose (Misc Panel) 126H 05/03/20 07:19: Immature Granulocyte % (Auto) 4.5H, Neutrophils (%) (Auto) 68.4H, Lymphocytes (%) (Auto) 16.7L, Monocytes (%) (Auto) 8.8H, Eosinophils (%) (Auto) 1.1, Basophils (%) (Auto) 0.5, Neutrophils # (Auto) 10.2H, Lymphocytes # (Auto) 2.5, Monocytes # (Auto) 1.3H, Eosinophils # (Auto) 0.2, Basophils # (Auto) 0.1, Nucleated Red Blood Cells % (auto) 0.3H, Anion Gap 12, Glomerular Filtration Rate 12.9L, Calcium Level 9.6 Current Medications Current Medications Current Medications Medications (Trade) Dose Ordered Sig/Frankie Route PRN Reason Start Time Stop Time Status Last Admin Dose Admin Acetaminophen (Tylenol Tab) 1,000 mg TID PO 04/27/20 16:00 04/28/20 16:59 DC Acetaminophen (Tylenol Tab) 1,000 mg TID PO 04/28/20 16:00 05/03/20 08:20 Albuterol/ Ipratropium (Duoneb (Ipr 0.5mg/Alb 2.5mg)) 3 ml BID@1200,1600 NEB 04/28/20 16:00 05/02/20 15:40 Atorvastatin Calcium (Lipitor) 20 mg DAILY PO 04/28/20 09:00 04/28/20 17:03 DC Atorvastatin Calcium (Lipitor) 20 mg DAILY PO 04/29/20 09:00 05/03/20 08:19 Calcitriol (Rocaltrol) 0.25 mcg TuThSa@0900 PO 04/29/20 09:00 05/02/20 08:00 Calcium/Vitamin D (Oscal D) 500 mg DAILY PO 04/28/20 09:00 04/28/20 17:03 DC Calcium/Vitamin D (Oscal D) 500 mg DAILY PO 04/29/20 09:00 05/03/20 08:18 Carvedilol (COReg) 3.125 mg BID PO 04/27/20 21:00 04/28/20 16:59 DC Carvedilol (COReg) 3.125 mg BID PO 04/28/20 21:00 05/03/20 08:20 Clopidogrel Bisulfate (PLAVix) 75 mg DAILY PO 04/28/20 09:00 04/28/20 17:04 DC Clopidogrel Bisulfate (PLAVix) 75 mg DAILY PO 04/29/20 09:00 05/03/20 08:19 Coenzyme Q10 (Coenzyme Q10) 200 mg BID PO 04/27/20 21:00 04/28/20 17:00 DC Coenzyme Q10 (Coenzyme Q10) 200 mg BID PO 04/28/20 21:00 05/28/20 20:59 05/03/20 08:18 Darbepoetin Puneet (Aranesp (Dialysis Use)) 200 mcg HD IV 04/29/20 09:45 Docusate Sodium (Colace) 100 mg BID PO 04/27/20 21:00 04/28/20 17:04 DC Docusate Sodium (Colace) 100 mg BID PO 04/28/20 21:00 05/03/20 08:18 Duloxetine HCl (Cymbalta) 60 mg DAILY PO 04/28/20 09:00 04/28/20 17:04 DC Duloxetine HCl (Cymbalta) 60 mg DAILY PO 04/29/20 09:00 05/03/20 08:18 Febuxostat (Uloric) 80 mg DAILY PO 04/28/20 09:00 04/28/20 14:27 DC Febuxostat (Uloric) 80 mg Q48H PO 04/30/20 09:00 05/02/20 07:59 Furosemide (Lasix) 20 mg DAILY PO 04/29/20 09:00 04/30/20 15:17 DC Furosemide (Lasix) 40 mg DAILY PO 04/28/20 09:00 04/27/20 15:53 DC Heparin Sodium (Porcine) (Heparin) 5,000 units Q12H SC 04/28/20 21:00 05/03/20 08:18 Home Med (Med Rec Complete!) ASDIRECTED XX 04/28/20 18:00 04/28/20 17:49 DC Morphine Sulfate (Msir) 15 mg Q6HP PRN PO SEVERE PAIN (PS 8-10) 04/28/20 16:30 05/03/20 04:35 Multivitamins (Theragram-M) 1 tab DAILY PO 04/28/20 09:00 04/28/20 17:05 DC Multivitamins (Theragram-M) 1 tab DAILY PO 04/29/20 09:00 05/03/20 08:18 Oxycodone HCl (Roxicodone, Oxyir) 5 mg Q6HP PRN PO PAIN 04/28/20 14:30 04/28/20 16:29 DC Pantoprazole Sodium (Protonix) 40 mg DAILY PO 04/28/20 09:00 04/28/20 17:05 DC Pantoprazole Sodium (Protonix) 40 mg DAILY PO 04/29/20 09:00 05/03/20 08:19 Prednisone (Deltasone) 5 mg DAILY PO 05/01/20 09:00 05/03/20 08:19 Prednisone (Deltasone) 6 mg DAILY PO 04/30/20 09:00 04/28/20 15:39 DC Prednisone (Deltasone) 10 mg DAILY PO 04/29/20 09:00 04/30/20 09:01 DC 04/30/20 09:58 Senna (Senokot) 1 tab QHS PO 04/27/20 21:00 04/28/20 17:05 DC Senna (Senokot) 1 tab QHS PO 04/28/20 21:00 05/02/20 20:14 Silver Sulfadiazine (Silvadene 1%) right 2nd toe after clean... BID TOP 04/27/20 21:00 04/28/20 16:57 DC Silver Sulfadiazine (Silvadene 1%) right 2nd toe after clean... BID TOP 04/28/20 21:00 05/02/20 20:16 Tiotropium [place] (Spiriva Handihaler) 1 inhalation DAILY@08 [facility] 04/28/20 08:00 04/28/20 17:06 DC Tiotropium [place] (Spiriva Handihaler) 1 inhalation DAILY@08 [facility] 04/29/20 08:00 05/02/20 07:16 Torsemide (Demadex) 40 mg DAILY PO 04/30/20 09:00 05/03/20 08:20 REG MORALES MD May 03, 2020 11:05
[2020-05-03] MEDS: IPRATROPIUM 0.5MG/ALBUTEROL 2.5MG INH SOL UD 3ML (DUONEB) NEB SCH ×2 (11:25→16:00)
[2020-05-03] MEDS: SENNA 8.6 MG TAB (SENOKOT) PO SCH (20:36)
[2020-05-03 21:00] VITALS: BP 110/58
--- NOTE | 2020-05-03 23:50 | IPNPDOC ---
Date Seen The patient was seen on 05/03/20. Progress Note SUBJECTIVE: Markell was seen and examined by the nephrology service. This morning while he was sitting in a wheelchair in ARU. He is scheduled to undergo his regularly scheduled Friday hemodialysis this afternoon after completing morning therapy sessions. The goal for today's hemodialysis will be to remove 3 L of fluid. He underwent ultrafiltration on 04/30, as well as his regularly scheduled Friday hemodialysis session the next day on 05/01. These 2 consecutive days of hemodialysis sessions removed a total of 6 L of fluid. He also reports that he will be having a left shoulder x-ray performed as he is complaining of persistent pain and discomfort. Otherwise, he reports doing very well with his therapy sessions and he remains nonweightbearing as result of his left pelvic fracture. Without any issues and denies any fever, chills, night sweats, shortness of breath, or chest pain overnight or this morning. OBJECTIVE PHYSICAL EXAMINATION: VITAL SIGNS: Please see below. PHYSICAL EXAMINATION: VITAL SIGNS: Please see below. GENERAL APPEARANCE: Elderly male sitting in wheelchair at time of exam. No acute distress. Alert and oriented 3. HEENT: Normocephalic, atraumatic. Wearing eyeglasses. Noninjected, anicteric sclera. Neck is supple with no thyromegaly, lymphadenopathy, or JVD appreciated. RESPIRATORY: Bilateral fine crackles remain present at lung bases posteriorly. Symmetric chest expansion. Breathing room air and speaking full sentences. CARDIOVASCULAR: Regular rate and rhythm. +S1, S2. 2/6 systolic murmur once again was auscultated and appreciated best at right parasternal second intercostal space. No JVD. 2+ radial pulses bilaterally. Lower extremity pitting edema remains present but is significantly decreased since 04/29. He continues to have some very mild pitting edema of the left upper extremity, but this is also reduced from 04/29. ABDOMEN: Soft, nontender with normoactive bowel sounds throughout. Abdominal wall edema seems to be significantly reduced from previous days. No guarding or rigidity appreciated. EXTREMITIES: Bilateral lower extremity 1-2+ pitting edema that is considerably improved from the weekend.. He does have Chidi bandage wraps over the distal parts of his lower extremities bilaterally. Left upper extremity pitting edema remains present but is also improved significantly since exam on 04/29. No cyanosis or clubbing noted. AV fistula present in left arm. MUSCULOSKELETAL: Patient is nonweightbearing with considerably reduced range of motion and ambulation secondary to left pelvic fracture. NEUROLOGICAL: Awake, alert and oriented 3. No focal neurologic deficits appreciated. Non-dysarthric speech. PSYCHIATRIC: Mood and affect appear appropriate. LABORATORY DATA, IMAGING STUDIES, MICROBIOLOGY: Please see below. Markell is a 74-year-old male with history of end-stage renal disease on hemodialysis (MWF) who was recently admitted to [facility] after sustaining a left hip fracture. He was transferred to [place] for evaluation with possible goal of left total hip arthroplasty. Due to significant medical comorbidities, the orthopedic service in [place] did not pursue surgical intervention and he was subsequently discharged back to [facility] ARU. PROBLEMS: #End stage renal disease on hemodialysis Patient will be undergoing his regularly scheduled Friday hemodialysis session this afternoon. The goal to remove approximately 3 L of fluid. He has been tolerating his sessions well after undergoing ultrafiltration on 04/30 in his regularly scheduled Friday hemodialysis session on 05/01. While he still has pitting edema in bilateral lower extremities as well as the left upper extremity, his fluid retention is significantly improved from a few days ago. #Chronic diastolic congestive heart failure -He has been tolerating his previous hemodialysis sessions well with 6 L removed on consecutive days of hemodialysis on . He is scheduled for his regular Friday hemodialysis session this afternoon with the goal to remove 3 L. His fluid retention is significantly improved from a few days ago. -C/w current furosemide qd and carvedilol bid regimen #Anemia and end-stage renal disease -Hemoglobin appears to be stable around 11. He will continue to receive Aranesp concurrently with hemodialysis sessions. 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 -Of note, he continues to receive his daily 5 mg of prednisone, and also received 10 mg doses on both 04/29 and 04/30. #Left acetabular wall fracture with collapse of left femoral head -He remains nonweightbearing while he undergoes daily occupational therapy and physical therapy sessions in ARU. He is tolerating his therapy sessions well and feels an improvement in terms of his range of motion and dexterity. -Was sent back to [facility] after [place] orthopedics did not pursue surgical intervention due to significant medical comorbidities. -Currently receiving 1 g Tylenol tid and 50 mg oral morphine prn q6h #Chronic gout secondary to chronic kidney disease -Currently receiving oral Uloric q48h #Coronary artery disease s/p coronary artery bypass grafting -Currently receiving both atorvastatin and clopidogrel, in addition to carvedilol. Thank you for allowing the nephrology service to participate in Markell's care. We will continue to monitor him and follow along while he remains in acute rehab and receiving inpatient hemodialysis. Should any questions or concerns arise from a renal standpoint, please do contact us. VS, I&O, 24H, Fishbone Vital Signs/I&O Vital Signs Date Time Temp Pulse Resp B/P (MAP) Pulse Ox O2 Delivery O2 Flow Rate FiO2 05/03/20 23:22 18 05/03/20 20:37 68 110/58 05/03/20 13:00 Room Air 05/03/20 05:37 96.8 99 04/30/20 06:00 2.0 I&O- Last 24 Hours up to 6 AM 05/03/20 06:00 Intake Total 1120 ml Balance 1120 ml Laboratory Data 24H LABS Laboratory Tests 2 05/03/20 05:19: Bedside Glucose (Misc Panel) 126H 05/03/20 07:19: Immature Granulocyte % (Auto) 4.5H, Neutrophils (%) (Auto) 68.4H, Lymphocytes (%) (Auto) 16.7L, Monocytes (%) (Auto) 8.8H, Eosinophils (%) (Auto) 1.1, Basophils (%) (Auto) 0.5, Neutrophils # (Auto) 10.2H, Lymphocytes # (Auto) 2.5, Monocytes # (Auto) 1.3H, Eosinophils # (Auto) 0.2, Basophils # (Auto) 0.1, Nucleated Red Blood Cells % (auto) 0.3H, Anion Gap 12, Glomerular Filtration Rate 12.9L, Calcium Level 9.6 CBC/BMP Laboratory Tests 05/03/20 07:19 GME ATTESTATION GME ATTESTATION My faculty preceptor for this patient encounter was physically present during the encounter and was fully available. All aspects of the patient interview, examination, medical decision making process, and medical care plan development were reviewed and approved by the faculty preceptor. The faculty preceptor is aware and concurs with the plan as stated in the body of this note and will attest to such by his/her cosignature. ATTENDING NOTE ESRD on HD HFpEF LE edema Anemia in ESRD Lt acetabular fracture Chronic gout CKD MBD Improving volume status. will keep trying 3Kg fluid removal. Cont current Aranesp dose. Edema is significantly better. cont fluid restriction 1.5L. SYMONE CASTRO D.O. May 03, 2020 23:50 BUSTER ANN MD May 07, 2020 11:39
[2020-05-04 05:56] VITALS: BP 111/53
[2020-05-04] MEDS: CO-ENZYME Q10 50 MG CAP PO SCH ×2 (08:27→22:27)
[2020-05-04] MEDS: HEPARIN SOD (PORCINE) 5000UNITS/ML VIAL (J1644 PER 1000UNITS) SC SCH (08:27)
[2020-05-04] MEDS: FEBUXOSTAT 40 MG TABLET (ULORIC) PO SCH (08:27)
[2020-05-04] MEDS: TORSEMIDE 20 MG TAB PO SCH (08:27)
[2020-05-04] MEDS: CALCIUM/VITAMIN D 500 MG TAB PO SCH (08:28)
[2020-05-04] MEDS: ACETAMINOPHEN 500 MG TAB PO SCH ×3 (08:28→22:27)
[2020-05-04] MEDS: CARVedilol 3.125 MG TAB PO SCH ×2 (08:28→22:28)
[2020-05-04] MEDS: DULoxetine 30 MG CAP (CYMBALTA) PO SCH (08:28)
[2020-05-04] MEDS: DOCUSATE SODIUM 100 MG CAP PO SCH ×2 (08:28→22:27)
[2020-05-04] MEDS: REMEDY PHYTOPLEX Z-GUARD PASTE 113GM TUBE (FROM STOREROOM PRODUCT) TOP SCH ×3 (08:29→21:00)
[2020-05-04] MEDS: ATORVASTATIN 20 MG TAB PO SCH (08:29)
[2020-05-04] MEDS: predniSONE 5 MG TAB PO SCH (08:29)
[2020-05-04] MEDS: PANTOPRAZOLE 40MG TAB (PROTONIX) PO SCH (08:29)
[2020-05-04] MEDS: CLOPIDOGREL 75 MG TAB PO SCH (08:29)
[2020-05-04] MEDS: MULTIVITAMINS/MINERALS THERAP 1 TAB PO SCH (08:29)
[2020-05-04] MEDS: CALCITRIOL 0.25 MCG CAP (S0169) PO SCH (08:29)
[2020-05-04] MEDS: SILVER SULFADIAZINE 1% CR 50 GM JAR TOP SCH ×2 (08:30→22:26)
--- NOTE | 2020-05-04 08:41 | REP ---
Comparison exam is 11/08/2019. The humeral head is severely misshapen when compared to the prior exam. In addition, the glenoid is also misshapen when compared to the prior exam. There is no evidence of any acute fracture or dislocation. There is severe superior subluxation of the humeral head within the glenoid, which is narrowing the subacromial space. This was seen on the prior exam and appears to have worsened. IMPRESSION: Markedly abnormal glenohumeral joint suggesting chronicity as described above. Consider MRI to search for marrow edema. Electronically Signed by Mehdi Emmanuel DO 05/04/2020 04:52 P
[2020-05-04] MEDS: TIOTROPIUM INHALER/CAPSULE (SPIRIVA) INH SCH (11:34)
[2020-05-04] MEDS: MORPHINE 30 MG TAB **MSIR PO PRN ×2 (11:34→17:44)
[2020-05-04] MEDS: IPRATROPIUM 0.5MG/ALBUTEROL 2.5MG INH SOL UD 3ML (DUONEB) NEB SCH ×2 (12:00→16:00)
[2020-05-04 14:00] VITALS: BP 134/61
[2020-05-04 20:00] VITALS: BP 116/70
[2020-05-04] MEDS: SENNA 8.6 MG TAB (SENOKOT) PO SCH (22:28)
[2020-05-05 05:43] VITALS: BP 123/63
[2020-05-05] MEDS: MORPHINE 30 MG TAB **MSIR PO PRN ×2 (05:43→14:20)
[2020-05-05] MEDS: TIOTROPIUM INHALER/CAPSULE (SPIRIVA) INH SCH (07:23)
[2020-05-05] MEDS: REMEDY PHYTOPLEX Z-GUARD PASTE 113GM TUBE (FROM STOREROOM PRODUCT) TOP SCH ×3 (09:00→20:44)
[2020-05-05] MEDS: CO-ENZYME Q10 50 MG CAP PO SCH ×2 (09:09→20:42)
[2020-05-05] MEDS: DULoxetine 30 MG CAP (CYMBALTA) PO SCH (09:09)
[2020-05-05] MEDS: MULTIVITAMINS/MINERALS THERAP 1 TAB PO SCH (09:09)
[2020-05-05] MEDS: DOCUSATE SODIUM 100 MG CAP PO SCH ×2 (09:09→20:42)
[2020-05-05] MEDS: predniSONE 5 MG TAB PO SCH (09:09)
[2020-05-05] MEDS: ATORVASTATIN 20 MG TAB PO SCH (09:09)
[2020-05-05] MEDS: ACETAMINOPHEN 500 MG TAB PO SCH ×3 (09:09→20:43)
[2020-05-05] MEDS: CLOPIDOGREL 75 MG TAB PO SCH (09:10)
[2020-05-05] MEDS: CARVedilol 3.125 MG TAB PO SCH ×2 (09:10→20:43)
[2020-05-05] MEDS: TORSEMIDE 20 MG TAB PO SCH (09:10)
[2020-05-05] MEDS: PANTOPRAZOLE 40MG TAB (PROTONIX) PO SCH (09:10)
[2020-05-05] MEDS: CALCIUM/VITAMIN D 500 MG TAB PO SCH (09:10)
[2020-05-05] MEDS: SILVER SULFADIAZINE 1% CR 50 GM JAR TOP SCH ×2 (09:11→20:45)
[2020-05-05 09:38] LABS: BASO # 0.1 10^3/uL (0.0-0.2); BASO % 0.5 % (0.0-1.0); EOS # 0.2 10^3/uL (0.0-0.5); EOS % 1.9 % (0.0-3.0); HEMOGLOBIN 10.2 g/dl (13.5-17.5); LYMPH # 2.5 10^3/uL (1.5-5.0); LYMPH % 20.6 % (24.0-44.0); MEAN CORPUSCULAR HEMOGLOBIN 33.2 pg (27.0-33.0); MEAN CORPUSCULAR HGB CONC 31.9 g/dl (32.0-36.5); MEAN CORPUSCULAR VOLUME 104.2 fl (80.0-96.0); MONO % 8.1 % (0.0-5.0); NEUTROPHILS % 65.2 % (36.0-66.0); PLATELET COUNT, AUTOMATED 154 10^3/uL (150-450); RED BLOOD COUNT 3.07 10^6/uL (4.30-6.10); WHITE BLOOD COUNT 12.3 10^3/uL (4.0-10.0)
[2020-05-05 10:13] LABS: CALCIUM LEVEL 9.1 MG/DL (8.8-10.2); CREATININE FOR GFR 4.63 MG/DL (0.70-1.30); GLOMERULAR FILTRATION RATE 13.2 (>42)
--- NOTE | 2020-05-05 10:47 | IPN ---
DATE: 05/04/2020 SUBJECTIVE: The patient was seen and examined at the bedside today morning. He is afebrile, hemodynamically stable. He reports that his lower extremity edema is getting significantly better. He was dialyzed yesterday, 2.5 liters of fluid was removed. The report says his left hip pain is also getting better. OBJECTIVE: Vital Signs: Temperature is 97.6 degrees Fahrenheit, blood pressure 134/61, pulse is 80, respiratory rate of 20, saturating 98% on room air. Intake and Output: Urine output recorded is 100 mL. Ultrafiltration with hemodialysis was 2.5 liters. Weight in the bed scale is 89.9 kg. PHYSICAL EXAMINATION: General: The patient is awake, alert, oriented x3, sitting up in the bed in no apparent distress. Head and Neck Exam: Extraocular muscles intact. Pupils equally round and reactive to light. Mucous membranes are moist. Neck is supple. There is no jugular venous distention (JVD). Cardiovascular: S1, S2. Regular rate. 1+ edema of the bilateral lower extremities. Respiratory: Chest is clear to auscultation bilaterally. Bilateral equal air entry. No rales or rhonchi. Abdomen: Soft. Positive bowel sounds. Nontender. No organomegaly. Musculoskeletal: The patient has a dressing on the bilateral lower extremities for edema and blisters. ENTERTAINMENT & MEDIA CORRESPONDENT: No focal deficit. Power is 5/5 in bilateral upper extremities. LAB REVIEW: CBC is from yesterday and BMP is also from yesterday. IMAGING: A shoulder x-ray was done yesterday which showed markedly abnormal glenohumeral joint suggesting chronicity. MRI was recommended. CURRENT INPATIENT MEDICATIONS: The patient's medications were all reviewed by myself. I have stopped his heparin because he reports bleeding from the abdomen after the heparin injections. ASSESSMENT/PLAN: 1. End-stage renal disease. The patient was dialyzed yesterday according to his regular schedule. Next hemodialysis will be tomorrow. Ultrafiltration goal will be 2.5-3 liters. 2. Acute on chronic decompensated diastolic congestive heart failure. The patient got [id number] ultrafiltration and dialysis because of volume overload. Bilateral lower extremity edema is significantly better. Volume status is being optimized with dialysis as mentioned above. 3. Anemia in end-stage renal disease. Hemoglobin level is 11, which is optimal. Continue current dose of Aranesp with dialysis. 4. Secondary hyperparathyroidism. Continue current dose of calcitriol 0.25 mcg. 5. Bleeding from the heparin injection site. The patient is already on Plavix. I am going to stop the heparin. 6. 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 Continue current dose of Uloric 80 mg by mouth every 48 hours. 7. Coronary artery disease status post coronary artery bypass graft (CABG) in the past. Continue current dose of Plavix, atorvastatin and carvedilol.
[2020-05-05] MEDS: IPRATROPIUM 0.5MG/ALBUTEROL 2.5MG INH SOL UD 3ML (DUONEB) NEB SCH ×2 (12:00→13:32)
[2020-05-05 14:00] VITALS: BP 89/63
--- NOTE | 2020-05-05 17:53 | IPNPDOC ---
Date Seen The patient was seen on 05/05/20. Progress Note SUBJECTIVE: Markell was seen and examined this morning by the nephrology service while sitting on the side of his bed in ARU. He is slated to undergo hemodialysis later today after completing his morning rehabilitation sessions. Our goal will be 3 L of fluid removal. He last underwent hemodialysis on Friday and had 2500 mL of fluid removed. He is making good progress with his rehabilitation sessions and has a good energy level. He is tolerating solids and liquids without any issues. He denies any fever, chills, night sweats, shortness of breath, chest pain, or nausea, vomiting, either overnight or this morning. OBJECTIVE PHYSICAL EXAMINATION: VITAL SIGNS: Please see below. PHYSICAL EXAMINATION: VITAL SIGNS: Please see below. GENERAL APPEARANCE: Elderly male sitting on side of bed at time of exam. No acute distress. Alert and oriented 3. HEENT: Normocephalic, atraumatic. Wearing eyeglasses. Noninjected, anicteric sclera. Neck is supple with no thyromegaly, lymphadenopathy, or JVD appreciated. RESPIRATORY: Bilateral fine crackles remain present at lung bases posteriorly. Symmetric chest expansion. Breathing room air and speaking full sentences. CARDIOVASCULAR: Regular rate and rhythm. +S1, S2. 2/6 systolic murmur once again was auscultated and appreciated best at right parasternal second intercostal space. No JVD. 2+ radial pulses bilaterally. Lower extremity pitting edema remains present but is significantly decreased from presentation. Edema of left upper extremity is significantly less than upon presentation. ABDOMEN: Soft, nontender with normoactive bowel sounds throughout. Abdominal wall edema seems to be significantly reduced from previous days. No guarding or rigidity appreciated. EXTREMITIES: Bilateral lower extremity 1-2+ pitting edema that is considerably improved from the weekend. Lower extremities are wrapped with Chidi bandages. Left upper extremity pitting edema significantly reduced presentation and appears mostly resolved. No cyanosis or clubbing noted. AV fistula present in left arm. MUSCULOSKELETAL: Patient is nonweightbearing with considerably reduced range of motion and ambulation secondary to left pelvic fracture. NEUROLOGICAL: Awake, alert and oriented 3. No focal neurologic deficits appreciated. Non-dysarthric speech. PSYCHIATRIC: Mood and affect appear appropriate. LABORATORY DATA, IMAGING STUDIES, MICROBIOLOGY: Please see below. Markell is a 74-year-old male with history of end-stage renal disease on hemodialysis (MWF) who was recently admitted to [facility] after sustaining a left hip fracture. He was transferred to [place] for evaluation with possible goal of left total hip arthroplasty. Due to significant medical comorbidities, the orthopedic service in [place] did not pursue surgical intervention and he was subsequently discharged back to [facility] ARU. PROBLEMS: #End stage renal disease on hemodialysis He is slated to undergo regular scheduled Friday hemodialysis session this afternoon after completing morning rehabilitation. Goal is for 3 L of fluid removal. He had 2.5 L removed during his Friday session. He is tolerating hemodialysis well and has seen a significant improvement in his fluid status while inpatient. #Chronic diastolic congestive heart failure -He has been tolerating his previous hemodialysis sessions well and is scheduled for his regular Friday hemodialysis session this afternoon with the goal to remove 3 L. His fluid retention is significantly improved from presentation -C/w current furosemide qd and carvedilol bid regimen #Anemia and end-stage renal disease -Hemoglobin appears to be mostly stable over the past few days. He is slightly down today at 10.2. He will continue to receive Aranesp concurrently with hemodialysis sessions. 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 -Of note, he continues to receive his daily 5 mg of prednisone. #Left acetabular wall fracture with collapse of left femoral head -He remains nonweightbearing while he undergoes daily occupational therapy and physical therapy sessions in ARU. He is tolerating his therapy sessions well and feels an improvement in terms of his range of motion and dexterity. -Was sent back to [facility] after [place] orthopedics did not pursue surgical intervention due to significant medical comorbidities. -Currently receiving 1 g Tylenol tid and 50 mg oral morphine prn q6h #Chronic gout secondary to chronic kidney disease -Currently receiving oral Uloric q48h #Coronary artery disease s/p coronary artery bypass grafting -Currently receiving both atorvastatin and clopidogrel, in addition to carvedilol. Thank you for allowing the nephrology service to participate in Markell's care. We will continue to monitor him and follow along while he remains in acute rehab and receiving inpatient hemodialysis. Should any questions or concerns arise from a renal standpoint, please do contact us. VS, I&O, 24H, Fishbone Vital Signs/I&O Vital Signs Date Time Temp Pulse Resp B/P (MAP) Pulse Ox O2 Delivery O2 Flow Rate FiO2 05/05/20 15:00 18 05/05/20 05:43 97.8 80 123/63 (83) 94 Room Air 04/30/20 06:00 2.0 I&O- Last 24 Hours up to 6 AM 05/05/20 06:00 Intake Total 1680 ml Output Total 100 ml Balance 1580 ml Laboratory Data 24H LABS Laboratory Tests 2 05/05/20 06:54: Bedside Glucose (Misc Panel) 94 05/05/20 09:06: Immature Granulocyte % (Auto) 3.7H, Neutrophils (%) (Auto) 65.2, Lymphocytes (%) (Auto) 20.6L, Monocytes (%) (Auto) 8.1H, Eosinophils (%) (Auto) 1.9, Basophils (%) (Auto) 0.5, Neutrophils # (Auto) 8.0, Lymphocytes # (Auto) 2.5, Monocytes # (Auto) 1.0H, Eosinophils # (Auto) 0.2, Basophils # (Auto) 0.1, Nucleated Red Blood Cells % (auto) 0.2H, Anion Gap 12, Glomerular Filtration Rate 13.2L, Calcium Level 9.1 05/05/20 17:09: Bedside Glucose (Misc Panel) 110 CBC/BMP Laboratory Tests 05/05/20 09:06 GME ATTESTATION GME ATTESTATION My faculty preceptor for this patient encounter was physically present during the encounter and was fully available. All aspects of the patient interview, examination, medical decision making process, and medical care plan development were reviewed and approved by the faculty preceptor. The faculty preceptor is aware and concurs with the plan as stated in the body of this note and will attest to such by his/her cosignature. ATTENDING NOTE ESRD on HD HFpEF CAD HTN anemia in ESRd Lt acetabular fracture and collapse of Femoral head Volume status significantly better. Keep fluid restriction and TIW HD for now. PT/OT as per rehab. SYMONE CASTRO D.O. May 05, 2020 17:53 BUSTER ANN MD May 07, 2020 12:55
[2020-05-05 20:39] VITALS: BP 113/60
[2020-05-05] MEDS: SENNA 8.6 MG TAB (SENOKOT) PO SCH (20:42)
[2020-05-06] MEDS: MORPHINE 30 MG TAB **MSIR PO PRN ×2 (00:08→09:09)
[2020-05-06 05:55] VITALS: BP 143/64
[2020-05-06] MEDS: TIOTROPIUM INHALER/CAPSULE (SPIRIVA) INH SCH (07:20)
[2020-05-06] MEDS: CO-ENZYME Q10 50 MG CAP PO SCH ×2 (09:09→20:36)
[2020-05-06] MEDS: FEBUXOSTAT 40 MG TABLET (ULORIC) PO SCH (09:09)
[2020-05-06] MEDS: DOCUSATE SODIUM 100 MG CAP PO SCH ×2 (09:09→20:36)
[2020-05-06] MEDS: PANTOPRAZOLE 40MG TAB (PROTONIX) PO SCH (09:10)
[2020-05-06] MEDS: predniSONE 5 MG TAB PO SCH (09:10)
[2020-05-06] MEDS: DULoxetine 30 MG CAP (CYMBALTA) PO SCH (09:10)
[2020-05-06] MEDS: MULTIVITAMINS/MINERALS THERAP 1 TAB PO SCH (09:10)
[2020-05-06] MEDS: ATORVASTATIN 20 MG TAB PO SCH (09:10)
[2020-05-06] MEDS: CALCIUM/VITAMIN D 500 MG TAB PO SCH (09:10)
[2020-05-06] MEDS: CALCITRIOL 0.25 MCG CAP (S0169) PO SCH (09:10)
[2020-05-06] MEDS: CLOPIDOGREL 75 MG TAB PO SCH (09:10)
[2020-05-06] MEDS: TORSEMIDE 20 MG TAB PO SCH (09:11)
[2020-05-06] MEDS: CARVedilol 3.125 MG TAB PO SCH ×2 (09:11→20:37)
[2020-05-06] MEDS: ACETAMINOPHEN 500 MG TAB PO SCH ×3 (09:11→20:35)
[2020-05-06] MEDS: REMEDY PHYTOPLEX Z-GUARD PASTE 113GM TUBE (FROM STOREROOM PRODUCT) TOP SCH ×3 (09:12→20:37)
[2020-05-06] MEDS: SILVER SULFADIAZINE 1% CR 50 GM JAR TOP SCH ×2 (09:13→20:38)
[2020-05-06] MEDS: IPRATROPIUM 0.5MG/ALBUTEROL 2.5MG INH SOL UD 3ML (DUONEB) NEB SCH ×2 (11:15→15:11)
[2020-05-06 14:00] VITALS: BP 131/58
[2020-05-06 20:00] VITALS: BP 126/66
[2020-05-06] MEDS: SENNA 8.6 MG TAB (SENOKOT) PO SCH (20:36)
[2020-05-07] MEDS: MORPHINE 30 MG TAB **MSIR PO PRN ×2 (03:04→23:43)
[2020-05-07 05:47] VITALS: BP 129/71
[2020-05-07] MEDS: TIOTROPIUM INHALER/CAPSULE (SPIRIVA) INH SCH (07:17)
--- NOTE | 2020-05-07 08:09 | IPN ---
DATE: 05/06/2020 Mr. Mckeon is seen this morning during acute rehabilitation. He is currently in the gym working with physical therapist. He was dialyzed yesterday and he tolerated his dialysis treatment very well. 2.5 liters of fluid was removed. He still has mild leg edema and both his lower legs are wrapped in Chidi bandage. He denies any dyspnea or chest pain. He does have history of diastolic congestive heart failure and end-stage renal disease. His volume status improved significantly with aggressive fluid removal during last week. PHYSICAL EXAMINATION: Temperature 98 degrees Fahrenheit, heart rate 77 per minute and respiratory rate 18 per minute. Blood pressure 143/64 mmHg and oxygen saturation 99%. His head is atraumatic. Neck is supple and without JVD while sitting upright. Lungs sound clear to auscultation. Heart sounds are regular. Abdomen soft and nontender and bowel sounds are normal. Extremities have trace of edema on his left elbow and no cyanosis or clubbing. Lower leg edema is mild and limited to [id number] and above the Chidi bandages. Neurologically he is at his baseline mentation without a focal deficit. The patient did not have any new labs and his labs from yesterday have already been reviewed. His sodium was 134 and potassium 4.0. BUN was 43 and creatinine of 4.6. Hemoglobin 10.2 and hematocrit 32.0. PROBLEMS: 1. End-stage renal disease. The patient was dialyzed yesterday and next dialysis will be scheduled for Friday. No need for dialysis today. 2. Diastolic congestive heart failure. The patient has a history of diastolic congestive heart failure with decompensated volume in the setting of end-stage renal disease. He had four dialysis sessions last week with aggressive fluid removal and volume status has improved significantly. I do not feel that he needs dialysis today. We will try to remove about 3 liters with next dialysis on Friday. 3. Anemia. His anemia is stable and we will continue to monitor closely. 4. Hyponatremia. Mild hyponatremia predialysis was noticed and we will recheck his electrolytes next week. No specific intervention is needed. 5. Hip fracture and difficulty ambulating. The patient is still non-weightbearing and continues with rehabilitation.
[2020-05-07] MEDS: DULoxetine 30 MG CAP (CYMBALTA) PO SCH (08:57)
[2020-05-07] MEDS: MULTIVITAMINS/MINERALS THERAP 1 TAB PO SCH (08:57)
[2020-05-07] MEDS: CO-ENZYME Q10 50 MG CAP PO SCH ×2 (08:57→20:24)
[2020-05-07] MEDS: TORSEMIDE 20 MG TAB PO SCH (08:58)
[2020-05-07] MEDS: DOCUSATE SODIUM 100 MG CAP PO SCH ×2 (08:58→20:25)
[2020-05-07] MEDS: PANTOPRAZOLE 40MG TAB (PROTONIX) PO SCH (08:58)
[2020-05-07] MEDS: CARVedilol 3.125 MG TAB PO SCH ×2 (08:59→20:25)
[2020-05-07] MEDS: ACETAMINOPHEN 500 MG TAB PO SCH ×3 (08:59→20:25)
[2020-05-07] MEDS: CLOPIDOGREL 75 MG TAB PO SCH (08:59)
[2020-05-07] MEDS: ATORVASTATIN 20 MG TAB PO SCH (08:59)
[2020-05-07] MEDS: predniSONE 5 MG TAB PO SCH (08:59)
[2020-05-07] MEDS: CALCIUM/VITAMIN D 500 MG TAB PO SCH (08:59)
[2020-05-07] MEDS: REMEDY PHYTOPLEX Z-GUARD PASTE 113GM TUBE (FROM STOREROOM PRODUCT) TOP SCH ×3 (09:00→20:26)
[2020-05-07] MEDS: SILVER SULFADIAZINE 1% CR 50 GM JAR TOP SCH ×2 (09:01→20:26)
[2020-05-07] MEDS: IPRATROPIUM 0.5MG/ALBUTEROL 2.5MG INH SOL UD 3ML (DUONEB) NEB SCH ×2 (11:37→15:55)
[2020-05-07 14:00] VITALS: BP 113/58
[2020-05-07 20:00] VITALS: BP 118/56
[2020-05-07] MEDS: SENNA 8.6 MG TAB (SENOKOT) PO SCH (20:25)
[2020-05-08 06:00] VITALS: BP 130/62
[2020-05-08 06:51] LABS: BASO % 0.2 % (0.0-1.0); EOS # 0.2 10^3/uL (0.0-0.5); EOS % 1.8 % (0.0-3.0); HEMOGLOBIN 10.2 g/dl (13.5-17.5); LYMPH # 1.4 10^3/uL (1.5-5.0); MEAN CORPUSCULAR HEMOGLOBIN 32.7 pg (27.0-33.0); MEAN CORPUSCULAR HGB CONC 30.9 g/dl (32.0-36.5); MEAN CORPUSCULAR VOLUME 105.8 fl (80.0-96.0); MONO # 0.7 10^3/uL (0.0-0.8); MONO % 6.8 % (0.0-5.0); NEUTROPHILS # 7.3 10^3/uL (1.5-8.5); NEUTROPHILS % 75.7 % (36.0-66.0); PLATELET COUNT, AUTOMATED 143 10^3/uL (150-450); RED BLOOD COUNT 3.12 10^6/uL (4.30-6.10); WHITE BLOOD COUNT 9.7 10^3/uL (4.0-10.0)
[2020-05-08 07:17] LABS: CALCIUM LEVEL 9.8 MG/DL (8.8-10.2); CREATININE FOR GFR 5.05 MG/DL (0.70-1.30); GLOMERULAR FILTRATION RATE 11.9 (>42); POTASSIUM SERUM 4.4 MEQ/L (3.5-5.1)
[2020-05-08] MEDS: TIOTROPIUM INHALER/CAPSULE (SPIRIVA) INH SCH (07:36)
[2020-05-08] MEDS: CALCIUM/VITAMIN D 500 MG TAB PO SCH (08:38)
[2020-05-08] MEDS: PANTOPRAZOLE 40MG TAB (PROTONIX) PO SCH (08:38)
[2020-05-08] MEDS: ATORVASTATIN 20 MG TAB PO SCH (08:38)
[2020-05-08] MEDS: DOCUSATE SODIUM 100 MG CAP PO SCH ×2 (08:38→20:59)
[2020-05-08] MEDS: CARVedilol 3.125 MG TAB PO SCH ×2 (08:39→20:59)
[2020-05-08] MEDS: ACETAMINOPHEN 500 MG TAB PO SCH ×3 (08:39→20:59)
[2020-05-08] MEDS: TORSEMIDE 20 MG TAB PO SCH (08:39)
[2020-05-08] MEDS: MULTIVITAMINS/MINERALS THERAP 1 TAB PO SCH (08:39)
[2020-05-08] MEDS: DULoxetine 30 MG CAP (CYMBALTA) PO SCH (08:39)
[2020-05-08] MEDS: CLOPIDOGREL 75 MG TAB PO SCH (08:39)
[2020-05-08] MEDS: predniSONE 5 MG TAB PO SCH (08:39)
[2020-05-08] MEDS: FEBUXOSTAT 40 MG TABLET (ULORIC) PO SCH (08:40)
[2020-05-08] MEDS: REMEDY PHYTOPLEX Z-GUARD PASTE 113GM TUBE (FROM STOREROOM PRODUCT) TOP SCH ×3 (08:46→21:04)
[2020-05-08] MEDS: SILVER SULFADIAZINE 1% CR 50 GM JAR TOP SCH ×2 (08:47→21:03)
[2020-05-08] MEDS: CO-ENZYME Q10 50 MG CAP PO SCH ×2 (09:00→20:58)
--- NOTE | 2020-05-08 10:33 | IPNPDOC ---
PM&R Progress Note DATE OF SERVICE: May 08, 2020 [employer] Progress Note Subjective: Patient seen in dialysis and states he feels constipated, but otherwise thinks he is getting stronger in therapy. He is agreebale to following up with ortho here in [place] for his chronic shoulder dislocation which he was seen for in the past. REVIEW OF SYSTEMS: The following is a completed review of systems and has been reviewed. Review of systems otherwise unremarkable. PAIN: Patient self reports left hip pain EYES: No recent vision changes EARS, NOSE, & THROAT: No throat pain, or dysphagia, or rhinorrhea CARDIOVASCULAR: Denies chest pain or palpitations PULMONARY: Denies shortness of breath GASTROINTESTINAL: + constipation GENITOURINARY: denies dysuria MUSCULOSKELETAL: left hip fracture NEUROLOGICAL:no tremor or paresthesias HEMATOLOGICAL: +anemia SKIN: right toe ulcer PSYCHIATRIC: Unremarkable All other review of systems found to be negative. PHYSICAL EXAMINATION: VITAL SIGNS: Please see below. GENERAL: Pleasant and cooperative. No acute distress. HEENT: PERRL. Extraocular movements intact. Clear conjunctiva CARDIOVASCULAR: Regular rate and rhythm. No murmurs, rubs, or gallops LUNGS: Clear to auscultation bilaterally. No wheezes. No rhonchi ABDOMEN: Soft, nontender, nondistended. Positive bowel sounds. Normal active bowel sounds NEUROLOGICAL: Alert and oriented times three. Cranial nerves II through XII grossly intact. Sensation grossly intact EXTREMITIES: 5\5 strength bilateral upper extremities. 5\5 strength right lower extremity. 3/5 strength in left lower extremity (limited due to fracture) +generalized edema improved SKIN: right 2nd toe ulcer, sacrum with blanchable erythema, scattered ulcer on his bilat calves ASSESSMENT:74-year-old M with past medical history of ESRD who presents status post left hip fracture non-operative PLAN: 1. rehab- PT/OT, advance mobiltiy and ADLs, strengthen/stretch/maintain ROM all 4limbs, energy conservation 2. Neuro- recent encephalopathy while on opioids, monitor closely while home dose of morphine-stable 3. cardiac- chronic diastolic CHF, daily weights, fluids restrict, fluid management per renal -medicine consulted to assist in overall management -HLD- statin -CAD sp CABD c/u beta-faisal and plavix 4. resp- hx of ABELARDO non compliant with CPAP- c/u nocturnal oxygen, restrictive lung disease, c/u Duonebs and spiriva -monitor for infection 5. Ortho- s/p left hip fracture likely due to chronic steroids causing AVN-NWB to the LLE, f/u with Dr. Cesar in 1-2 weeks, patient may reconsider surgery -left shoulder pain, recent Xray at [facility] showing malalignment with inhouse repeat Xray showing chronic dislocation, discussed with ortho who has seen aptient int he past for this before when shoulder replacement was offered, will refer to ortho in [place] for further shoulder eval 6. renal- ESRD- HD , renal consulted to follow -c/u Torsemide per renal recs 7. Rheum- hx of eczema, c/u low dose oral steroids, c/u Uloric for hx of gout 8. Pain- cymbalta and morphine 15mg IR q6h prn (this is his home dose that he has taken for years without complication (hold for AMS or RR <12) 9. Skin- right toe ulcer c/u dressing changes, bilat LE per dressing change orders 10. Leukocytosis suspect due to chronic steroid use and inflammatory in setting of ESRD and hip fracture, no fever or signs of infection 11. DVT ppx- heparin 12. GI ppx- protonix 13. Dispo- 05/13/20 to home, progressing towards goals Allergies Coded Allergies: aspirin (Verified Allergy, Severe, LIPS SWELL, 03/29/19) Penicillins (Verified Allergy, Intermediate, RASH, 04/15/19) ampicillin (Verified Allergy, Intermediate, HIVES, 03/17/19) ceftriaxone (Verified Allergy, Unknown, UNKNOWN REACTION, 04/09/19) Vital Signs Vital Signs Date Time Temp Pulse Resp B/P (MAP) Pulse Ox O2 Delivery O2 Flow Rate FiO2 05/08/20 08:39 55 130/62 05/08/20 06:00 96.7 18 95 Room Air 05/07/20 14:00 2.0 Laboratory Data CBC/BMP Laboratory Tests 05/08/20 06:20 Labs 24H Laboratory Tests 2 05/08/20 06:11: Bedside Glucose (Misc Panel) 107 05/08/20 06:20: Immature Granulocyte % (Auto) 1.5, Neutrophils (%) (Auto) 75.7H, Lymphocytes (%) (Auto) 14.0L, Monocytes (%) (Auto) 6.8H, Eosinophils (%) (Auto) 1.8, Basophils (%) (Auto) 0.2, Neutrophils # (Auto) 7.3, Lymphocytes # (Auto) 1.4L, Monocytes # (Auto) 0.7, Eosinophils # (Auto) 0.2, Basophils # (Auto) 0.0, Nucleated Red Blood Cells % (auto) 0.0, Anion Gap 8, Glomerular Filtration Rate 11.9L, Calcium Level 9.8 Current Medications Current Medications Current Medications Medications (Trade) Dose Ordered Sig/Frankie Route PRN Reason Start Time Stop Time Status Last Admin Dose Admin Acetaminophen (Tylenol Tab) 1,000 mg TID PO 04/27/20 16:00 04/28/20 16:59 DC Acetaminophen (Tylenol Tab) 1,000 mg TID PO 04/28/20 16:00 05/08/20 08:39 Albuterol/ Ipratropium (Duoneb (Ipr 0.5mg/Alb 2.5mg)) 3 ml BID@1200,1600 NEB 04/28/20 16:00 05/02/20 15:40 Atorvastatin Calcium (Lipitor) 20 mg DAILY PO 04/28/20 09:00 04/28/20 17:03 DC Atorvastatin Calcium (Lipitor) 20 mg DAILY PO 04/29/20 09:00 05/08/20 08:38 Calcitriol (Rocaltrol) 0.25 mcg TuThSa@0900 PO 04/29/20 09:00 05/06/20 09:10 Calcium/Vitamin D (Oscal D) 500 mg DAILY PO 04/28/20 09:00 04/28/20 17:03 DC Calcium/Vitamin D (Oscal D) 500 mg DAILY PO 04/29/20 09:00 05/08/20 08:38 Carvedilol (COReg) 3.125 mg BID PO 04/27/20 21:00 04/28/20 16:59 DC Carvedilol (COReg) 3.125 mg BID PO 04/28/20 21:00 05/08/20 08:39 Clopidogrel Bisulfate (PLAVix) 75 mg DAILY PO 04/28/20 09:00 04/28/20 17:04 DC Clopidogrel Bisulfate (PLAVix) 75 mg DAILY PO 04/29/20 09:00 05/08/20 08:39 Coenzyme Q10 (Coenzyme Q10) 200 mg BID PO 04/27/20 21:00 04/28/20 17:00 DC Coenzyme Q10 (Coenzyme Q10) 200 mg BID PO 04/28/20 21:00 05/28/20 20:59 05/07/20 20:24 Darbepoetin Puneet (Aranesp (Dialysis Use)) 200 mcg HD IV 04/29/20 09:45 Docusate Sodium (Colace) 100 mg BID PO 04/27/20 21:00 04/28/20 17:04 DC Docusate Sodium (Colace) 100 mg BID PO 04/28/20 21:00 05/08/20 08:38 Duloxetine HCl (Cymbalta) 60 mg DAILY PO 04/28/20 09:00 04/28/20 17:04 DC Duloxetine HCl (Cymbalta) 60 mg DAILY PO 04/29/20 09:00 05/08/20 08:39 Febuxostat (Uloric) 80 mg DAILY PO 04/28/20 09:00 04/28/20 14:27 DC Febuxostat (Uloric) 80 mg Q48H PO 04/30/20 09:00 05/08/20 08:40 Furosemide (Lasix) 20 mg DAILY PO 04/29/20 09:00 04/30/20 15:17 DC Furosemide (Lasix) 40 mg DAILY PO 04/28/20 09:00 04/27/20 15:53 DC Heparin Sodium (Porcine) (Heparin) 5,000 units Q12H SC 04/28/20 21:00 05/04/20 12:45 DC 05/04/20 08:27 Home Med (Med Rec Complete!) ASDIRECTED XX 04/28/20 18:00 04/28/20 17:49 DC Miscellaneous (Unresolved Clarification Entry) SEE LABEL COMMENTS DAILY XX 05/04/20 09:00 05/04/20 19:20 DC Morphine Sulfate (Msir) 15 mg Q6HP PRN PO SEVERE PAIN (PS 8-10) 04/28/20 16:30 05/07/20 23:43 Multivitamins (Theragram-M) 1 tab DAILY PO 04/28/20 09:00 04/28/20 17:05 DC Multivitamins (Theragram-M) 1 tab DAILY PO 04/29/20 09:00 05/08/20 08:39 Oxycodone HCl (Roxicodone, Oxyir) 5 mg Q6HP PRN PO PAIN 04/28/20 14:30 04/28/20 16:29 DC Pantoprazole Sodium (Protonix) 40 mg DAILY PO 04/28/20 09:00 04/28/20 17:05 DC Pantoprazole Sodium (Protonix) 40 mg DAILY PO 04/29/20 09:00 05/08/20 08:38 Prednisone (Deltasone) 5 mg DAILY PO 05/01/20 09:00 05/08/20 08:39 Prednisone (Deltasone) 6 mg DAILY PO 04/30/20 09:00 04/28/20 15:39 DC Prednisone (Deltasone) 10 mg DAILY PO 04/29/20 09:00 04/30/20 09:01 DC 04/30/20 09:58 Senna (Senokot) 1 tab QHS PO 04/27/20 21:00 04/28/20 17:05 DC Senna (Senokot) 1 tab QHS PO 04/28/20 21:00 05/07/20 20:25 Silver Sulfadiazine (Silvadene 1%) right 2nd toe after clean... BID TOP 04/27/20 21:00 04/28/20 16:57 DC Silver Sulfadiazine (Silvadene 1%) right 2nd toe after clean... BID TOP 04/28/20 21:00 05/08/20 08:47 Tiotropium Conner (Spiriva Handihaler) 1 inhalation DAILY@08 INH 04/28/20 08:00 04/28/20 17:06 DC Tiotropium Conner (Spiriva Handihaler) 1 inhalation DAILY@08 INH 04/29/20 08:00 05/08/20 07:36 Torsemide (Demadex) 40 mg DAILY PO 04/30/20 09:00 05/08/20 08:39 REG MORALES MD May 08, 2020 10:33
[2020-05-08] MEDS: IPRATROPIUM 0.5MG/ALBUTEROL 2.5MG INH SOL UD 3ML (DUONEB) NEB SCH ×2 (11:35→15:11)
[2020-05-08] MEDS: MORPHINE 30 MG TAB **MSIR PO PRN ×2 (13:58→22:43)
--- NOTE | 2020-05-08 14:45 | IPN ---
DATE OF VISIT: 05/08/2020 Mr. Srinivasan is seen this morning on his bedside. He is currently in the gym on the wheelchair getting ready for his physical therapy. Patient denies any dyspnea or chest pain. He does have some leg edema and both legs are wrapped in Chidi bandage. He denies any nausea or vomiting. On physical exam, temperature 96.7 degrees Fahrenheit, heart rate 55 per minute and respiratory rate 18 per minute. Blood pressure 130/62 mmHg and oxygen saturation 95% on room air. His head is atraumatic. Neck is supple and without jugular venous distention (JVD) sitting upright. Heart sounds are regular. Lungs clear to auscultation. Abdomen soft and nontender. Bowel sounds are normal. Extremities: without any cyanosis or clubbing. Lower extremity edema is 1+. His both legs are wrapped in Chidi bandages. Neurologically, he is awake, alert and oriented times three. Today's labs show WBC count 9.7, hemoglobin 10.2 and hematocrit 33.0. Platelets 143. Sodium 133, potassium 4.4, BUN 50 and creatinine 5.5. Glucose 111 and calcium 9.8. PROBLEMS: 1. End-stage renal disease. Patient is regularly dialyzed on Friday, Friday and Friday schedule. He is due for dialysis today and will be dialyzed this afternoon. 2. Chronic diastolic congestive heart failure. His volume status is reasonably well-compensated. We will try to remove about 3 liters of fluid as tolerated. 3. Hyponatremia. Mild chronic hyponatremia has been unchanged. We will continue to optimize his volume status and maintain his normal electrolytes as much as possible. 4. Anemia. Chronic anemia is essentially unchanged. This is related to end-stage renal disease. We will continue with Aranesp 200 mcg once a week.
[2020-05-08 16:00] VITALS: BP 116/63
[2020-05-08] MEDS: MOM 30ML SUSPENSION UDC PO SCH ×2 (16:49→16:52)
[2020-05-08 20:11] VITALS: BP 115/59
[2020-05-08] MEDS: SENNA 8.6 MG TAB (SENOKOT) PO SCH (20:57)
[2020-05-09] MEDS ORDERED: HYDROmorphone 2 MG TAB PO ONE (01:45)
[2020-05-09] MEDS: LIDOCAINE 5% (LIDODERM) PATCH TD SCH ×2 (03:08→20:47)
[2020-05-09] MEDS: MORPHINE 30 MG TAB **MSIR PO PRN ×3 (04:59→23:13)
[2020-05-09 06:00] VITALS: BP 118/59
[2020-05-09] MEDS: TIOTROPIUM INHALER/CAPSULE (SPIRIVA) INH SCH (06:01)
[2020-05-09] MEDS: DOCUSATE SODIUM 100 MG CAP PO SCH ×2 (09:00→20:45)
[2020-05-09] MEDS: CARVedilol 3.125 MG TAB PO SCH ×2 (09:00→20:47)
[2020-05-09] MEDS: MOM 30ML SUSPENSION UDC PO SCH (09:00)
[2020-05-09] MEDS: ATORVASTATIN 20 MG TAB PO SCH (09:33)
[2020-05-09] MEDS: MULTIVITAMINS/MINERALS THERAP 1 TAB PO SCH (09:33)
[2020-05-09] MEDS: CALCIUM/VITAMIN D 500 MG TAB PO SCH (09:33)
[2020-05-09] MEDS: CLOPIDOGREL 75 MG TAB PO SCH (09:35)
[2020-05-09] MEDS: PANTOPRAZOLE 40MG TAB (PROTONIX) PO SCH (09:35)
[2020-05-09] MEDS: DULoxetine 30 MG CAP (CYMBALTA) PO SCH (09:35)
[2020-05-09] MEDS: CALCITRIOL 0.25 MCG CAP (S0169) PO SCH (09:35)
[2020-05-09] MEDS: TORSEMIDE 20 MG TAB PO SCH (09:36)
[2020-05-09] MEDS: CO-ENZYME Q10 50 MG CAP PO SCH ×2 (09:36→20:45)
[2020-05-09] MEDS: predniSONE 5 MG TAB PO SCH (09:36)
[2020-05-09] MEDS: ACETAMINOPHEN 500 MG TAB PO SCH ×3 (09:37→20:46)
[2020-05-09] MEDS: REMEDY PHYTOPLEX Z-GUARD PASTE 113GM TUBE (FROM STOREROOM PRODUCT) TOP SCH ×3 (09:38→20:48)
[2020-05-09] MEDS: **NOTE PATIENT COMMENT** MISC XX SCH (09:39)
[2020-05-09] MEDS: IPRATROPIUM 0.5MG/ALBUTEROL 2.5MG INH SOL UD 3ML (DUONEB) NEB SCH ×2 (12:05→15:29)
[2020-05-09] MEDS: SILVER SULFADIAZINE 1% CR 50 GM JAR TOP SCH ×2 (17:25→20:49)
--- NOTE | 2020-05-09 18:11 | IPNPDOC ---
PM&R Progress Note DATE OF SERVICE: May 09, 2020 Obstetrics Tech Progress Note Subjective: Patient reporting he did not sleep well last night because he did not time his morphine dosing well. He is concerned about doing car transfers. REVIEW OF SYSTEMS: The following is a completed review of systems and has been reviewed. Review of systems otherwise unremarkable. PAIN: Patient self reports left hip pain EYES: No recent vision changes EARS, NOSE, & THROAT: No throat pain, or dysphagia, or rhinorrhea CARDIOVASCULAR: Denies chest pain or palpitations PULMONARY: Denies shortness of breath GASTROINTESTINAL: + constipation (improving) GENITOURINARY: denies dysuria MUSCULOSKELETAL: left hip fracture NEUROLOGICAL:no tremor or paresthesias HEMATOLOGICAL: +anemia SKIN: right toe ulcer PSYCHIATRIC: Unremarkable All other review of systems found to be negative. PHYSICAL EXAMINATION: VITAL SIGNS: Please see below. GENERAL: Pleasant and cooperative. No acute distress. HEENT: PERRL. Extraocular movements intact. Clear conjunctiva CARDIOVASCULAR: Regular rate and rhythm. No murmurs, rubs, or gallops LUNGS: Clear to auscultation bilaterally. No wheezes. No rhonchi ABDOMEN: Soft, nontender, nondistended. Positive bowel sounds. Normal active bowel sounds NEUROLOGICAL: Alert and oriented times three. Cranial nerves II through XII grossly intact. Sensation grossly intact EXTREMITIES: 5\5 strength bilateral upper extremities. 5\5 strength right lower extremity. 3/5 strength in left lower extremity (limited due to fracture) +generalized edema improved SKIN: right 2nd toe ulcer, sacrum with blanchable erythema, scattered ulcer on his bilat calves ASSESSMENT:74-year-old M with past medical history of ESRD who presents status post left hip fracture non-operative PLAN: 1. rehab- PT/OT, advance mobiltiy and ADLs, strengthen/stretch/maintain ROM all 4limbs, energy conservation 2. Neuro- recent encephalopathy while on opioids, monitor closely while home dose of morphine-stable 3. cardiac- chronic diastolic CHF, daily weights, fluids restrict, fluid management per renal -medicine consulted to assist in overall management -HLD- statin -CAD sp CABD c/u beta-faisal and plavix 4. resp- hx of ABELARDO non compliant with CPAP- c/u nocturnal oxygen, restrictive lung disease, c/u Duonebs and spiriva -monitor for infection 5. Ortho- s/p left hip fracture likely due to chronic steroids causing AVN-NWB to the LLE, f/u with Dr. Cesar in 1-2 weeks, patient may reconsider surgery -left shoulder pain, recent Xray at [facility] showing malalignment with inhouse repeat Xray showing chronic dislocation, discussed with ortho who has seen patient in the past for this before when shoulder replacement was offered, will refer to ortho in [place] for further shoulder eval -called Dr. Cesar's office to get permission for PWB through LLE for car transfers only- waiting to hear back 6. renal- ESRD- HD , renal consulted to follow -c/u Torsemide per renal recs 7. Rheum- hx of eczema, c/u low dose oral steroids, c/u Uloric for hx of gout 8. Pain- cymbalta and morphine 15mg IR q6h prn (this is his home dose that he has taken for years without complication (hold for AMS or RR <12) 9. Skin- right toe ulcer c/u dressing changes, bilat LE per dressing change orders 10. Leukocytosis suspect due to chronic steroid use and inflammatory in setting of ESRD and hip fracture, no fever or signs of infection 11. DVT ppx- heparin 12. GI ppx- protonix 13. Dispo- 05/13/20 to home, progressing towards goals Allergies Coded Allergies: aspirin (Verified Allergy, Severe, LIPS SWELL, 03/29/19) Penicillins (Verified Allergy, Intermediate, RASH, 04/15/19) ampicillin (Verified Allergy, Intermediate, HIVES, 03/17/19) ceftriaxone (Verified Allergy, Unknown, UNKNOWN REACTION, 04/09/19) Vital Signs Vital Signs Date Time Temp Pulse Resp B/P (MAP) Pulse Ox O2 Delivery O2 Flow Rate FiO2 05/09/20 16:38 20 Room Air 05/09/20 09:00 68 108/59 05/09/20 06:00 96.8 97 05/07/20 14:00 2.0 Laboratory Data Labs 24H Laboratory Tests 2 05/09/20 06:10: Bedside Glucose (Misc Panel) 93 05/09/20 16:33: Bedside Glucose (Misc Panel) 159H Current Medications Current Medications Current Medications Medications (Trade) Dose Ordered Sig/Frankie Route PRN Reason Start Time Stop Time Status Last Admin Dose Admin Acetaminophen (Tylenol Tab) 1,000 mg TID PO 04/27/20 16:00 04/28/20 16:59 DC Acetaminophen (Tylenol Tab) 1,000 mg TID PO 04/28/20 16:00 05/09/20 17:18 Albuterol/ Ipratropium (Duoneb (Ipr 0.5mg/Alb 2.5mg)) 3 ml BID@1200,1600 NEB 04/28/20 16:00 05/09/20 15:29 Atorvastatin Calcium (Lipitor) 20 mg DAILY PO 04/28/20 09:00 04/28/20 17:03 DC Atorvastatin Calcium (Lipitor) 20 mg DAILY PO 04/29/20 09:00 05/09/20 09:33 Calcitriol (Rocaltrol) 0.25 mcg TuThSa@0900 PO 04/29/20 09:00 05/09/20 09:35 Calcium/Vitamin D (Oscal D) 500 mg DAILY PO 04/28/20 09:00 04/28/20 17:03 DC Calcium/Vitamin D (Oscal D) 500 mg DAILY PO 04/29/20 09:00 05/09/20 09:33 Carvedilol (COReg) 3.125 mg BID PO 04/27/20 21:00 04/28/20 16:59 DC Carvedilol (COReg) 3.125 mg BID PO 04/28/20 21:00 05/08/20 20:59 Clopidogrel Bisulfate (PLAVix) 75 mg DAILY PO 04/28/20 09:00 04/28/20 17:04 DC Clopidogrel Bisulfate (PLAVix) 75 mg DAILY PO 04/29/20 09:00 05/09/20 09:35 Coenzyme Q10 (Coenzyme Q10) 200 mg BID PO 04/27/20 21:00 04/28/20 17:00 DC Coenzyme Q10 (Coenzyme Q10) 200 mg BID PO 04/28/20 21:00 05/28/20 20:59 05/09/20 09:36 Darbepoetin Puneet (Aranesp (Dialysis Use)) 200 mcg HD IV 04/29/20 09:45 Docusate Sodium (Colace) 100 mg BID PO 04/27/20 21:00 04/28/20 17:04 DC Docusate Sodium (Colace) 100 mg BID PO 04/28/20 21:00 05/08/20 20:59 Duloxetine HCl (Cymbalta) 60 mg DAILY PO 04/28/20 09:00 04/28/20 17:04 DC Duloxetine HCl (Cymbalta) 60 mg DAILY PO 04/29/20 09:00 05/09/20 09:35 Febuxostat (Uloric) 80 mg DAILY PO 04/28/20 09:00 04/28/20 14:27 DC Febuxostat (Uloric) 80 mg Q48H PO 04/30/20 09:00 05/08/20 08:40 Furosemide (Lasix) 20 mg DAILY PO 04/29/20 09:00 04/30/20 15:17 DC Furosemide (Lasix) 40 mg DAILY PO 04/28/20 09:00 04/27/20 15:53 DC Heparin Sodium (Porcine) (Heparin) 5,000 units Q12H SC 04/28/20 21:00 05/04/20 12:45 DC 05/04/20 08:27 Home Med (Med Rec Complete!) ASDIRECTED XX 04/28/20 18:00 04/28/20 17:49 DC Lidocaine (Lidoderm Patch) 1 patch QHS TD 05/08/20 21:00 05/09/20 03:08 Magnesium Hydroxide (Milk Of Magnesia) 30 ml DAILY PO 05/08/20 09:00 Miscellaneous (Unresolved Clarification Entry) SEE LABEL COMMENTS DAILY XX 05/04/20 09:00 05/04/20 19:20 DC Morphine Sulfate (Msir) 15 mg Q6HP PRN PO SEVERE PAIN (PS 8-10) 04/28/20 16:30 05/09/20 14:43 Multivitamins (Theragram-M) 1 tab DAILY PO 04/28/20 09:00 04/28/20 17:05 DC Multivitamins (Theragram-M) 1 tab DAILY PO 04/29/20 09:00 05/09/20 09:33 Non-Formulary Medication ( See Comment Field Below ) REMOVE LIDODERM PATCH DAILY XX 05/09/20 09:00 05/09/20 09:39 Oxycodone HCl (Roxicodone, Oxyir) 5 mg Q6HP PRN PO PAIN 04/28/20 14:30 04/28/20 16:29 DC Pantoprazole Sodium (Protonix) 40 mg DAILY PO 04/28/20 09:00 04/28/20 17:05 DC Pantoprazole Sodium (Protonix) 40 mg DAILY PO 04/29/20 09:00 05/09/20 09:35 Prednisone (Deltasone) 5 mg DAILY PO 05/01/20 09:00 05/09/20 09:36 Prednisone (Deltasone) 6 mg DAILY PO 04/30/20 09:00 04/28/20 15:39 DC Prednisone (Deltasone) 10 mg DAILY PO 04/29/20 09:00 04/30/20 09:01 DC 04/30/20 09:58 Senna (Senokot) 1 tab QHS PO 04/27/20 21:00 04/28/20 17:05 DC Senna (Senokot) 1 tab QHS PO 04/28/20 21:00 05/08/20 20:57 Silver Sulfadiazine (Silvadene 1%) right 2nd toe after clean... BID TOP 04/27/20 21:00 04/28/20 16:57 DC Silver Sulfadiazine (Silvadene 1%) right 2nd toe after clean... BID TOP 04/28/20 21:00 05/09/20 17:25 Tiotropium [place] (Spiriva Handihaler) 1 inhalation DAILY@08 INH 04/28/20 08:00 04/28/20 17:06 DC Tiotropium [place] (Spiriva Handihaler) 1 inhalation DAILY@08 INH 04/29/20 08:00 05/09/20 06:01 Torsemide (Demadex) 40 mg DAILY PO 04/30/20 09:00 05/09/20 09:36 REG MORALES MD May 09, 2020 18:11
[2020-05-09 20:34] VITALS: BP 122/67
[2020-05-09] MEDS: SENNA 8.6 MG TAB (SENOKOT) PO SCH (20:46)
[2020-05-10 05:27] VITALS: BP 115/56
[2020-05-10] MEDS: TIOTROPIUM INHALER/CAPSULE (SPIRIVA) INH SCH (05:49)
[2020-05-10] MEDS: MORPHINE 30 MG TAB **MSIR PO PRN ×3 (07:22→21:25)
[2020-05-10] MEDS: MOM 30ML SUSPENSION UDC PO SCH (08:46)
[2020-05-10] MEDS: CALCIUM/VITAMIN D 500 MG TAB PO SCH (08:46)
[2020-05-10] MEDS: ACETAMINOPHEN 500 MG TAB PO SCH ×3 (08:46→21:26)
[2020-05-10] MEDS: FEBUXOSTAT 40 MG TABLET (ULORIC) PO SCH (08:46)
[2020-05-10] MEDS: CO-ENZYME Q10 50 MG CAP PO SCH ×2 (08:47→21:25)
[2020-05-10] MEDS: TORSEMIDE 20 MG TAB PO SCH (08:47)
[2020-05-10] MEDS: DULoxetine 30 MG CAP (CYMBALTA) PO SCH (08:47)
[2020-05-10] MEDS: predniSONE 5 MG TAB PO SCH (08:47)
[2020-05-10] MEDS: CARVedilol 3.125 MG TAB PO SCH ×2 (08:47→21:26)
[2020-05-10] MEDS: CLOPIDOGREL 75 MG TAB PO SCH (08:48)
[2020-05-10] MEDS: MULTIVITAMINS/MINERALS THERAP 1 TAB PO SCH (08:48)
[2020-05-10] MEDS: PANTOPRAZOLE 40MG TAB (PROTONIX) PO SCH (08:48)
[2020-05-10] MEDS: ATORVASTATIN 20 MG TAB PO SCH (08:48)
[2020-05-10] MEDS: DOCUSATE SODIUM 100 MG CAP PO SCH ×3 (08:49→21:26)
[2020-05-10] MEDS: **NOTE PATIENT COMMENT** MISC XX SCH (08:49)
[2020-05-10] MEDS: REMEDY PHYTOPLEX Z-GUARD PASTE 113GM TUBE (FROM STOREROOM PRODUCT) TOP SCH ×4 (08:49→21:34)
[2020-05-10] MEDS: SILVER SULFADIAZINE 1% CR 50 GM JAR TOP SCH ×2 (08:50→21:28)
--- NOTE | 2020-05-10 11:28 | IPNPDOC ---
PM&R Progress Note DATE OF SERVICE: May 10, 2020 Deputy General Counsel Progress Note Subjective: Patient reporting he is pleased he can now use his leg for car transfers and states he is eager to get home Friday. REVIEW OF SYSTEMS: The following is a completed review of systems and has been reviewed. Review of systems otherwise unremarkable. PAIN: Patient self reports left hip pain EYES: No recent vision changes EARS, NOSE, & THROAT: No throat pain, or dysphagia, or rhinorrhea CARDIOVASCULAR: Denies chest pain or palpitations PULMONARY: Denies shortness of breath GASTROINTESTINAL: + constipation (improving) GENITOURINARY: denies dysuria MUSCULOSKELETAL: left hip fracture NEUROLOGICAL:no tremor or paresthesias HEMATOLOGICAL: +anemia SKIN: right toe ulcer PSYCHIATRIC: Unremarkable All other review of systems found to be negative. PHYSICAL EXAMINATION: VITAL SIGNS: Please see below. GENERAL: Pleasant and cooperative. No acute distress. HEENT: PERRL. Extraocular movements intact. Clear conjunctiva CARDIOVASCULAR: Regular rate and rhythm. No murmurs, rubs, or gallops LUNGS: Clear to auscultation bilaterally. No wheezes. No rhonchi ABDOMEN: Soft, nontender, nondistended. Positive bowel sounds. Normal active mimi wel sounds NEUROLOGICAL: Alert and oriented times three. Cranial nerves II through XII grossly intact. Sensation grossly intact EXTREMITIES: 5\5 strength bilateral upper extremities. 5\5 strength right lower extremity. 3/5 strength in left lower extremity (limited due to fracture) +generalized edema improved SKIN: right 2nd toe ulcer, sacrum with blanchable erythema, scattered ulcer on his bilat calves ASSESSMENT:74-year-old M with past medical history of ESRD who presents status post left hip fracture non-operative PLAN: 1. rehab- PT/OT, advance mobiltiy and ADLs, strengthen/stretch/maintain ROM all 4limbs, energy conservation 2. Neuro- recent encephalopathy while on opioids, monitor closely while home dose of morphine-stable 3. cardiac- chronic diastolic CHF, daily weights, fluids restrict, fluid management per renal -medicine consulted to assist in overall management -HLD- statin -CAD sp CABD c/u beta-faisal and plavix 4. resp- hx of ABELARDO non compliant with CPAP- c/u nocturnal oxygen, restrictive l pacheco disease, c/u Duonebs and spiriva -monitor for infection 5. Ortho- s/p left hip fracture likely due to chronic steroids causing AVN-NWB to the LLE, f/u with Dr. Cesar in 1-2 weeks, patient may reconsider surgery -left shoulder pain, recent Xray at [facility] showing malalignment with inhouse repeat Xray showing chronic dislocation, discussed with ortho who has seen patient in the past for this before when shoulder replacement was offered, will refer to ortho in [place] for further shoulder eval -received permission from Dr. Cesar's office for PWB through LLE for car transfers only 6. renal- ESRD- HD , renal consulted to follow -c/u Torsemide per renal recs 7. Rheum- hx of eczema, c/u low dose oral steroids, c/u Uloric for hx of gout 8. Pain- cymbalta and morphine 15mg IR q6h prn (this is his home dose that he has taken for years without complication (hold for AMS or RR <12) 9. Skin- right toe ulcer c/u dressing changes, bilat LE per dressing change orders 10. Leukocytosis suspect due to chronic steroid use and inflammatory in setting of ESRD and hip fracture, no fever or signs of infection 11. DVT ppx- heparin 12. GI ppx- protonix 13. Dispo- 05/13/20 to home, progressing towards goals Allergies Coded Allergies: aspirin (Verified Allergy, Severe, LIPS SWELL, 03/29/19) Penicillins (Verified Allergy, Intermediate, RASH, 04/15/19) ampicillin (Verified Allergy, Intermediate, HIVES, 03/17/19) ceftriaxone (Verified Allergy, Unknown, UNKNOWN REACTION, 04/09/19) Vital Signs Vital Signs Date Time Temp Pulse Resp B/P (MAP) Pulse Ox O2 Delivery O2 Flow Rate FiO2 05/10/20 08:47 73 115/56 05/10/20 07:52 16 05/10/20 05:27 96.8 98 Room Air 05/07/20 14:00 2.0 Laboratory Data Labs 24H Laboratory Tests 2 05/09/20 16:33: Bedside Glucose (Misc Panel) 159H 05/10/20 06:45: Bedside Glucose (Misc Panel) 100 Current Medications Current Medications Current Medications Medications (Trade) Dose Ordered Sig/Frankie Route PRN Reason Start Time Stop Time Status Last Admin Dose Admin Acetaminophen (Tylenol Tab) 1,000 mg TID PO 04/27/20 16:00 04/28/20 16:59 DC Acetaminophen (Tylenol Tab) 1,000 mg TID PO 04/28/20 16:00 05/10/20 08:46 Albuterol/ Ipratropium (Duoneb (Ipr 0.5mg/Alb 2.5mg)) 3 ml BID@1200,1600 NEB 04/28/20 16:00 05/09/20 15:29 Atorvastatin Calcium (Lipitor) 20 mg DAILY PO 04/28/20 09:00 04/28/20 17:03 DC Atorvastatin Calcium (Lipitor) 20 mg DAILY PO 04/29/20 09:00 05/10/20 08:48 Calcitriol (Rocaltrol) 0.25 mcg TuThSa@0900 PO 04/29/20 09:00 05/09/20 09:35 Calcium/Vitamin D (Oscal D) 500 mg DAILY PO 04/28/20 09:00 04/28/20 17:03 DC Calcium/Vitamin D (Oscal D) 500 mg DAILY PO 04/29/20 09:00 05/10/20 08:46 Carvedilol (COReg) 3.125 mg BID PO 04/27/20 21:00 04/28/20 16:59 DC Carvedilol (COReg) 3.125 mg BID PO 04/28/20 21:00 05/10/20 08:47 Clopidogrel Bisulfate (PLAVix) 75 mg DAILY PO 04/28/20 09:00 04/28/20 17:04 DC Clopidogrel Bisulfate (PLAVix) 75 mg DAILY PO 04/29/20 09:00 05/10/20 08:48 Coenzyme Q10 (Coenzyme Q10) 200 mg BID PO 04/27/20 21:00 04/28/20 17:00 DC Coenzyme Q10 (Coenzyme Q10) 200 mg BID PO 04/28/20 21:00 05/28/20 20:59 05/10/20 08:47 Darbepoetin Puneet (Aranesp (Dialysis Use)) 200 mcg HD IV 04/29/20 09:45 Docusate Sodium (Colace) 100 mg BID PO 04/27/20 21:00 04/28/20 17:04 DC Docusate Sodium (Colace) 100 mg BID PO 04/28/20 21:00 05/09/20 20:45 Duloxetine HCl (Cymbalta) 60 mg DAILY PO 04/28/20 09:00 04/28/20 17:04 DC Duloxetine HCl (Cymbalta) 60 mg DAILY PO 04/29/20 09:00 05/10/20 08:47 Febuxostat (Uloric) 80 mg DAILY PO 04/28/20 09:00 04/28/20 14:27 DC Febuxostat (Uloric) 80 mg Q48H PO 04/30/20 09:00 05/10/20 08:46 Furosemide (Lasix) 20 mg DAILY PO 04/29/20 09:00 04/30/20 15:17 DC Furosemide (Lasix) 40 mg DAILY PO 04/28/20 09:00 04/27/20 15:53 DC Heparin Sodium (Porcine) (Heparin) 5,000 units Q12H SC 04/28/20 21:00 05/04/20 12:45 DC 05/04/20 08:27 Home Med (Med Rec Complete!) ASDIRECTED XX 04/28/20 18:00 04/28/20 17:49 DC Lidocaine (Lidoderm Patch) 1 patch QHS TD 05/08/20 21:00 05/09/20 20:47 Magnesium Hydroxide (Milk Of Magnesia) 30 ml DAILY PO 05/08/20 09:00 Miscellaneous (Unresolved Clarification Entry) SEE LABEL COMMENTS DAILY XX 05/04/20 09:00 05/04/20 19:20 DC Morphine Sulfate (Msir) 15 mg Q6HP PRN PO SEVERE PAIN (PS 8-10) 04/28/20 16:30 05/10/20 07:22 Multivitamins (Theragram-M) 1 tab DAILY PO 04/28/20 09:00 04/28/20 17:05 DC Multivitamins (Theragram-M) 1 tab DAILY PO 04/29/20 09:00 05/10/20 08:48 Non-Formulary Medication ( See Comment Field Below ) REMOVE LIDODERM PATCH DAILY XX 05/09/20 09:00 05/10/20 08:49 Oxycodone HCl (Roxicodone, Oxyir) 5 mg Q6HP PRN PO PAIN 04/28/20 14:30 04/28/20 16:29 DC Pantoprazole Sodium (Protonix) 40 mg DAILY PO 04/28/20 09:00 04/28/20 17:05 DC Pantoprazole Sodium (Protonix) 40 mg DAILY PO 04/29/20 09:00 05/10/20 08:48 Prednisone (Deltasone) 5 mg DAILY PO 05/01/20 09:00 05/10/20 08:47 Prednisone (Deltasone) 6 mg DAILY PO 04/30/20 09:00 04/28/20 15:39 DC Prednisone (Deltasone) 10 mg DAILY PO 04/29/20 09:00 04/30/20 09:01 DC 04/30/20 09:58 Senna (Senokot) 1 tab QHS PO 04/27/20 21:00 04/28/20 17:05 DC Senna (Senokot) 1 tab QHS PO 04/28/20 21:00 05/08/20 20:57 Silver Sulfadiazine (Silvadene 1%) right 2nd toe after clean... BID TOP 04/27/20 21:00 04/28/20 16:57 DC Silver Sulfadiazine (Silvadene 1%) right 2nd toe after clean... BID TOP 04/28/20 21:00 05/10/20 08:50 Tiotropium [place] (Spiriva Handihaler) 1 inhalation DAILY@08 INH 04/28/20 08:00 04/28/20 17:06 DC Tiotropium [place] (Spiriva Handihaler) 1 inhalation DAILY@08 INH 04/29/20 08:00 05/10/20 05:49 Torsemide (Demadex) 40 mg DAILY PO 04/30/20 09:00 05/10/20 08:47 REG MORALES MD May 10, 2020 11:28
[2020-05-10] MEDS: IPRATROPIUM 0.5MG/ALBUTEROL 2.5MG INH SOL UD 3ML (DUONEB) NEB SCH ×2 (12:00→19:34)
[2020-05-10 13:32] LABS: BASO % 0.2 % (0.0-1.0); EOS # 0.2 10^3/uL (0.0-0.5); EOS % 2.2 % (0.0-3.0); HEMOGLOBIN 10.3 g/dl (13.5-17.5); LYMPH # 1.1 10^3/uL (1.5-5.0); MEAN CORPUSCULAR HEMOGLOBIN 33.3 pg (27.0-33.0); MEAN CORPUSCULAR HGB CONC 31.2 g/dl (32.0-36.5); MEAN CORPUSCULAR VOLUME 106.8 fl (80.0-96.0); MONO # 0.8 10^3/uL (0.0-0.8); MONO % 7.3 % (0.0-5.0); NEUTROPHILS # 8.7 10^3/uL (1.5-8.5); NEUTROPHILS % 78.9 % (36.0-66.0); PLATELET COUNT, AUTOMATED 148 10^3/uL (150-450); RED BLOOD COUNT 3.09 10^6/uL (4.30-6.10)
[2020-05-10 14:01] LABS: CALCIUM LEVEL 10.1 MG/DL (8.8-10.2); CREATININE FOR GFR 2.72 MG/DL (0.70-1.30); GLOMERULAR FILTRATION RATE 24.4 (>42); POTASSIUM SERUM 3.8 MEQ/L (3.5-5.1)
--- NOTE | 2020-05-10 14:10 | IPN ---
DATE OF VISIT: 05/10/2020 Mr. Mckeon is seen in the gym during his physical therapy. He is due for hemodialysis later today. The patient is in good spirits and working with the therapist. He is now getting up with partial weightbearing on his left leg. He denies any dyspnea, chest pain, nausea, or vomiting. On physical examination, temperature 96.8 degrees Fahrenheit, heart rate 72 per minute, and respiratory rate 16 per minute. Blood pressure 115/56 mmHg and oxygen saturation 98% on room air. His neck veins are difficult to be assessed. Head is atraumatic. Heart sounds are regular. Lungs with no rales or wheezing at present. Abdomen: Soft and nontender, and bowel sounds are present. Extremities: Without any cyanosis or clubbing. Both lower legs are wrapped in Chidi bandages. The patient did not have any new laboratories done today. PROBLEMS: 1. End-stage renal disease. The patient is due for dialysis today, and we will plan to dialyze him this afternoon. 2. Congestive heart failure. Volume status very well compensated, and we will continue to manage with dialysis. We usually remove 2-3 liters of fluid as tolerated. 3. Anemia. His anemia has been stable, and he will continue with Aranesp once a week. 4. Left hip fracture. The patient continues with acute rehabilitation. He is making good progress.
[2020-05-10 15:56] VITALS: BP 106/58
[2020-05-10 20:16] VITALS: BP 126/63
[2020-05-10] MEDS: SENNA 8.6 MG TAB (SENOKOT) PO SCH ×2 (21:00→21:26)
[2020-05-10] MEDS: LIDOCAINE 5% (LIDODERM) PATCH TD SCH (21:27)
[2020-05-11] MEDS: MORPHINE 30 MG TAB **MSIR PO PRN ×2 (03:35→15:58)
[2020-05-11 06:04] VITALS: BP 120/55
[2020-05-11] MEDS: TIOTROPIUM INHALER/CAPSULE (SPIRIVA) INH SCH (07:42)
[2020-05-11] MEDS: MOM 30ML SUSPENSION UDC PO SCH (09:00)
[2020-05-11] MEDS: **NOTE PATIENT COMMENT** MISC XX SCH (09:00)
[2020-05-11] MEDS: CARVedilol 3.125 MG TAB PO SCH ×2 (09:00→20:34)
[2020-05-11] MEDS: ACETAMINOPHEN 500 MG TAB PO SCH ×3 (09:16→20:33)
[2020-05-11] MEDS: MULTIVITAMINS/MINERALS THERAP 1 TAB PO SCH (09:17)
[2020-05-11] MEDS: DULoxetine 30 MG CAP (CYMBALTA) PO SCH (09:17)
[2020-05-11] MEDS: CO-ENZYME Q10 50 MG CAP PO SCH ×2 (09:17→20:33)
[2020-05-11] MEDS: CALCITRIOL 0.25 MCG CAP (S0169) PO SCH (09:17)
[2020-05-11] MEDS: PANTOPRAZOLE 40MG TAB (PROTONIX) PO SCH (09:18)
[2020-05-11] MEDS: CALCIUM/VITAMIN D 500 MG TAB PO SCH (09:18)
[2020-05-11] MEDS: CLOPIDOGREL 75 MG TAB PO SCH (09:18)
[2020-05-11] MEDS: DOCUSATE SODIUM 100 MG CAP PO SCH ×2 (09:18→20:32)
[2020-05-11] MEDS: TORSEMIDE 20 MG TAB PO SCH (09:18)
[2020-05-11] MEDS: predniSONE 5 MG TAB PO SCH (09:18)
[2020-05-11] MEDS: ATORVASTATIN 20 MG TAB PO SCH (09:19)
[2020-05-11] MEDS: REMEDY PHYTOPLEX Z-GUARD PASTE 113GM TUBE (FROM STOREROOM PRODUCT) TOP SCH ×3 (09:21→20:36)
[2020-05-11] MEDS: SILVER SULFADIAZINE 1% CR 50 GM JAR TOP SCH ×2 (09:22→20:37)
--- NOTE | 2020-05-11 09:37 | IPNPDOC ---
PM&R Progress Note Central Supply Manager Progress Note DATE OF ADMISSION: Apr 28, 2020 at 16:37 INPATIENT REHABILITATION ADMISSION DAY: # SUBJECTIVE: Patient is a -year-old with . ALLERGIES: See Below MEDICATIONS: Reviewed, see below. OBJECTIVE: VITAL SIGNS: Please see below. PHYSICAL EXAMINATION: GENERAL: [Cachectic, well developed, sitting up in bed, no acute distress]. HEENT: [Normocephalic, atraumatic]. [No facial droop]. [Poor dentition, missing teeth. PERRL, EOMI]. CARDIOVASCULAR: [S1, S2, irregular rate]. [No lower limb edema or calf tenderness]. LUNGS: [Decreased breath sounds, coarse throughout]. ABDOMEN: [Soft, nontender, nondistended. Normoactive bowel sounds throughout]. MUSCULOSKELETAL: MMT: /5 strength proximally bilateral shoulder abduction, f orward flexion and bilateral hip flexion. /5 strength bilateral elbow flexion, knee flexion, /5 bilateral elbow extension and knee extension. /5 seamer elastic band, dorsiflexion, plantar flexion. NEUROLOGICAL: [Alert and oriented times three]. [Answers all question appropriately]. SKIN: . LABORATORY DATA: Reviewed. Please see below. MICROBIOLOGY: Please see below. IMAGING: ASSESSMENT AND PLAN: 1. . 2. . 3. . TIME SPENT: Chart Review, examination and documentation minutes. Allergies Coded Allergies: aspirin (Verified Allergy, Severe, LIPS SWELL, 03/29/19) Penicillins (Verified Allergy, Intermediate, RASH, 04/15/19) ampicillin (Verified Allergy, Intermediate, HIVES, 03/17/19) ceftriaxone (Verified Allergy, Unknown, UNKNOWN REACTION, 04/09/19) Vital Signs Vital Signs Date Time Temp Pulse Resp B/P (MAP) Pulse Ox O2 Delivery O2 Flow Rate FiO2 05/11/20 09:00 104 105/57 05/11/20 06:04 97.3 18 95 Room Air 05/07/20 14:00 2.0 Laboratory Data CBC/BMP Laboratory Tests 05/10/20 12:34 Labs 24H Laboratory Tests 2 05/10/20 12:34: Immature Granulocyte % (Auto) 1.4, Neutrophils (%) (Auto) 78.9H, Lymphocytes (%) (Auto) 10.0L, Monocytes (%) (Auto) 7.3H, Eosinophils (%) (Auto) 2.2, Basophils (%) (Auto) 0.2, Neutrophils # (Auto) 8.7H, Lymphocytes # (Auto) 1.1L, Monocytes # (Auto) 0.8, Eosinophils # (Auto) 0.2, Basophils # (Auto) 0.0, Nucleated Red Blood Cells % (auto) 0.0, Anion Gap 10, Glomerular Filtration Rate 24.4L, Gilberto cium Level 10.1 05/10/20 16:55: Bedside Glucose (Misc Panel) 129H 05/11/20 05:58: Bedside Glucose (Misc Panel) 93 Current Medications Current Medications Current Medications Medications (Trade) Dose Ordered Sig/Frankie Route PRN Reason Start Time Stop Time Status Last Admin Dose Admin Acetaminophen (Tylenol Tab) 1,000 mg TID PO 04/27/20 16:00 04/28/20 16:59 DC Acetaminophen (Tylenol Tab) 1,000 mg TID PO 04/28/20 16:00 05/11/20 09:16 Albuterol/ Ipratropium (Duoneb (Ipr 0.5mg/Alb 2.5mg)) 3 ml BID@1200,1600 NEB 04/28/20 16:00 05/10/20 19:34 Atorvastatin Calcium (Lipitor) 20 mg DAILY PO 04/28/20 09:00 04/28/20 17:03 DC Atorvastatin Calcium (Lipitor) 20 mg DAILY PO 04/29/20 09:00 05/11/20 09:19 Calcitriol (Rocaltrol) 0.25 mcg TuThSa@0900 PO 04/29/20 09:00 05/11/20 09:17 Calcium/Vitamin D (Oscal D) 500 mg DAILY PO 04/28/20 09:00 04/28/20 17:03 DC Calcium/Vitamin D (Oscal D) 500 mg DAILY PO 04/29/20 09:00 05/11/20 09:18 Carvedilol (COReg) 3.125 mg BID PO 04/27/20 21:00 04/28/20 16:59 DC Carvedilol (COReg) 3.125 mg BID PO 04/28/20 21:00 05/10/20 21:26 Clopidogrel Bisulfate (PLAVix) 75 mg DAILY PO 04/28/20 09:00 04/28/20 17:04 DC Clopidogrel Bisulfate (PLAVix) 75 mg DAILY PO 04/29/20 09:00 05/11/20 09:18 Coenzyme Q10 (Coenzyme Q10) 200 mg BID PO 04/27/20 21:00 04/28/20 17:00 DC Coenzyme Q10 (Coenzyme Q10) 200 mg BID PO 04/28/20 21:00 05/28/20 20:59 05/11/20 09:17 Darbepoetin Puneet (Aranesp (Dialysis Use)) 200 mcg HD IV 04/29/20 09:45 Docusate Sodium (Colace) 100 mg BID PO 04/27/20 21:00 04/28/20 17:04 DC Docusate Sodium (Colace) 100 mg BID PO 04/28/20 21:00 05/11/20 09:18 Duloxetine HCl (Cymbalta) 60 mg DAILY PO 04/28/20 09:00 04/28/20 17:04 DC Duloxetine HCl (Cymbalta) 60 mg DAILY PO 04/29/20 09:00 05/11/20 09:17 Febuxostat (Uloric) 80 mg DAILY PO 04/28/20 09:00 04/28/20 14:27 DC Febuxostat (Uloric) 80 mg Q48H PO 04/30/20 09:00 05/10/20 08:46 Furosemide (Lasix) 20 mg DAILY PO 04/29/20 09:00 04/30/20 15:17 DC Furosemide (Lasix) 40 mg DAILY PO 04/28/20 09:00 04/27/20 15:53 DC Heparin Sodium (Porcine) (Heparin) 5,000 units Q12H SC 04/28/20 21:00 05/04/20 12:45 DC 05/04/20 08:27 Home Med (Med Rec Complete!) ASDIRECTED XX 04/28/20 18:00 04/28/20 17:49 DC Lidocaine (Lidoderm Patch) 1 patch QHS TD 05/08/20 21:00 05/10/20 21:27 Magnesium Hydroxide (Milk Of Magnesia) 30 ml DAILY PO 05/08/20 09:00 Miscellaneous (Unresolved Clarification Entry) SEE LABEL COMMENTS DAILY XX 05/10/20 09:00 Miscellaneous (Unresolved Clarification Entry) SEE LABEL COMMENTS DAILY XX 05/04/20 09:00 05/04/20 19:20 DC Morphine Sulfate (Msir) 15 mg Q6HP PRN PO SEVERE PAIN (PS 8-10) 04/28/20 16:30 05/11/20 03:35 Multivitamins (Theragram-M) 1 tab DAILY PO 04/28/20 09:00 04/28/20 17:05 DC Multivitamins (Theragram-M) 1 tab DAILY PO 04/29/20 09:00 05/11/20 09:17 Non-Formulary Medication ( See Comment Field Below ) REMOVE LIDODERM PATCH DAILY XX 05/09/20 09:00 05/11/20 09:00 Oxycodone HCl (Roxicodone, Oxyir) 5 mg Q6HP PRN PO PAIN 04/28/20 14:30 04/28/20 16:29 DC Pantoprazole Sodium (Protonix) 40 mg DAILY PO 04/28/20 09:00 04/28/20 17:05 DC Pantoprazole Sodium (Protonix) 40 mg DAILY PO 04/29/20 09:00 05/11/20 09:18 Prednisone (Deltasone) 5 mg DAILY PO 05/01/20 09:00 05/11/20 09:18 Prednisone (Deltasone) 6 mg DAILY PO 04/30/20 09:00 04/28/20 15:39 DC Prednisone (Deltasone) 10 mg DAILY PO 04/29/20 09:00 04/30/20 09:01 DC 04/30/20 09:58 Senna (Senokot) 1 tab QHS PO 04/27/20 21:00 04/28/20 17:05 DC Senna (Senokot) 1 tab QHS PO 04/28/20 21:00 05/08/20 20:57 Silver Sulfadiazine (Silvadene 1%) right 2nd toe after clean... BID TOP 04/27/20 21:00 04/28/20 16:57 DC Silver Sulfadiazine (Silvadene 1%) right 2nd toe after clean... BID TOP 04/28/20 21:00 05/11/20 09:22 Tiotropium [place] (Spiriva Handihaler) 1 inhalation DAILY@08 INH 04/28/20 08:00 04/28/20 17:06 DC Tiotropium [place] (Spiriva Handihaler) 1 inhalation DAILY@08 INH 04/29/20 08:00 05/11/20 07:42 Torsemide (Demadex) 40 mg DAILY PO 04/30/20 09:00 05/11/20 09:18 REG MORALES MD May 11, 2020 09:37
[2020-05-11] MEDS: IPRATROPIUM 0.5MG/ALBUTEROL 2.5MG INH SOL UD 3ML (DUONEB) NEB SCH ×2 (11:21→15:30)
[2020-05-11 14:00] VITALS: BP 132/62
[2020-05-11 20:30] VITALS: BP 150/71
[2020-05-11] MEDS: SENNA 8.6 MG TAB (SENOKOT) PO SCH (20:32)
[2020-05-11] MEDS: LIDOCAINE 5% (LIDODERM) PATCH TD SCH ×3 (20:35→20:46)
[2020-05-11] MEDS: MORPHINE 15 MG SA TAB PO SCH (23:26)
[2020-05-12 06:00] VITALS: BP 131/71
[2020-05-12] MEDS: MORPHINE 30 MG TAB **MSIR PO PRN ×2 (06:15→15:29)
[2020-05-12] MEDS: TIOTROPIUM INHALER/CAPSULE (SPIRIVA) INH SCH (07:50)
[2020-05-12 08:09] LABS: BASO % 0.1 % (0.0-1.0); EOS # 0.3 10^3/uL (0.0-0.5); EOS % 3.7 % (0.0-3.0); HEMATOCRIT 35.7 % (42.0-52.0); HEMOGLOBIN 10.9 g/dl (13.5-17.5); LYMPH # 1.5 10^3/uL (1.5-5.0); LYMPH % 19.1 % (24.0-44.0); MEAN CORPUSCULAR HEMOGLOBIN 33.6 pg (27.0-33.0); MEAN CORPUSCULAR HGB CONC 30.5 g/dl (32.0-36.5); MEAN CORPUSCULAR VOLUME 110.2 fl (80.0-96.0); MONO # 0.7 10^3/uL (0.0-0.8); MONO % 8.7 % (0.0-5.0); NEUTROPHILS # 5.3 10^3/uL (1.5-8.5); NEUTROPHILS % 66.9 % (36.0-66.0); PLATELET COUNT, AUTOMATED 191 10^3/uL (150-450); RED BLOOD COUNT 3.24 10^6/uL (4.30-6.10); WHITE BLOOD COUNT 7.9 10^3/uL (4.0-10.0)
[2020-05-12 08:35] LABS: CALCIUM LEVEL 9.6 MG/DL (8.8-10.2); CREATININE FOR GFR 4.3 MG/DL (0.70-1.30); GLOMERULAR FILTRATION RATE 14.4 (>42); POTASSIUM SERUM 4.2 MEQ/L (3.5-5.1)
[2020-05-12] MEDS: DOCUSATE SODIUM 100 MG CAP PO SCH ×2 (09:00→21:06)
[2020-05-12] MEDS: MOM 30ML SUSPENSION UDC PO SCH (09:00)
[2020-05-12] MEDS: CALCIUM/VITAMIN D 500 MG TAB PO SCH (09:10)
[2020-05-12] MEDS: CO-ENZYME Q10 50 MG CAP PO SCH ×2 (09:10→21:07)
[2020-05-12] MEDS: ACETAMINOPHEN 500 MG TAB PO SCH ×3 (09:10→21:07)
[2020-05-12] MEDS: MULTIVITAMINS/MINERALS THERAP 1 TAB PO SCH (09:11)
[2020-05-12] MEDS: TORSEMIDE 20 MG TAB PO SCH (09:11)
[2020-05-12] MEDS: CLOPIDOGREL 75 MG TAB PO SCH (09:11)
[2020-05-12] MEDS: ATORVASTATIN 20 MG TAB PO SCH (09:11)
[2020-05-12] MEDS: PANTOPRAZOLE 40MG TAB (PROTONIX) PO SCH (09:11)
[2020-05-12] MEDS: SILVER SULFADIAZINE 1% CR 50 GM JAR TOP SCH ×2 (09:12→21:08)
[2020-05-12] MEDS: FEBUXOSTAT 40 MG TABLET (ULORIC) PO SCH (09:12)
[2020-05-12] MEDS: REMEDY PHYTOPLEX Z-GUARD PASTE 113GM TUBE (FROM STOREROOM PRODUCT) TOP SCH ×3 (09:16→21:08)
[2020-05-12] MEDS: DULoxetine 30 MG CAP (CYMBALTA) PO SCH (09:17)
[2020-05-12] MEDS: CARVedilol 3.125 MG TAB PO SCH ×2 (09:17→21:06)
[2020-05-12] MEDS: predniSONE 5 MG TAB PO SCH (09:18)
[2020-05-12] MEDS: **NOTE PATIENT COMMENT** MISC XX SCH ×2 (09:19)
[2020-05-12] MEDS ORDERED: CLOP75TA2 PO (10:06)
[2020-05-12] MEDS ORDERED: TORS20TA2 PO (10:06)
[2020-05-12] MEDS ORDERED: CYMB1CAP5 PO (10:06)
[2020-05-12] MEDS ORDERED: TIOT18INH INH (10:06)
[2020-05-12] MEDS ORDERED: CARV3.12 PO (10:06)
[2020-05-12] MEDS ORDERED: FEBU80TA PO (10:06)
[2020-05-12] MEDS ORDERED: ATOR1TAB21 PO (10:06)
[2020-05-12] MEDS ORDERED: CALC1CAP31 PO (10:06)
[2020-05-12] MEDS ORDERED: PRED5TA PO (10:06)
[2020-05-12] MEDS ORDERED: COQ1200C PO (10:06)
[2020-05-12] MEDS ORDERED: CALCD50TA PO (10:06)
[2020-05-12] MEDS ORDERED: ACET-683 PO (10:06)
[2020-05-12] MEDS: IPRATROPIUM 0.5MG/ALBUTEROL 2.5MG INH SOL UD 3ML (DUONEB) NEB SCH ×2 (13:09→15:40)
[2020-05-12 14:00] VITALS: BP 124/62
[2020-05-12 20:00] VITALS: BP 121/59
--- NOTE | 2020-05-12 20:49 | IPN ---
DATE: 05/12/2020 Mr. Mckeon is seen this morning on his bedside. He is currently working with a physical therapist in the gym. He is due for dialysis this afternoon. The patient is in good spirits and has made good progress. He is anticipating going home tomorrow. The patient denies any dyspnea, chest pain, nausea or vomiting. His left hip pain has improved and he continues with rehab. PHYSICAL EXAMINATION: Temperature 97.8 degrees Fahrenheit, heart rate 80 per minute and respiratory rate 18 per minute. Blood pressure 124/62 mmHg and oxygen saturation 94% on room air. Head is atraumatic. Neck: Supple and without jugular venous distention (JVD) sitting upright. Lungs sound clear to auscultation. Heart sounds are regular and abdomen soft and nontender. Bowel sounds are normal. Extremities: Without any cyanosis or clubbing. His lower legs are wrapped in dressing. Neurologically, he is awake, alert and oriented times three. Today's labs show WBC count 7.9, hemoglobin 10.9 and hematocrit 35.7. Platelets 191. Sodium 137, potassium 4.2, CO2 of 28, BUN 39 and creatinine 4.30. Glucose 96 and calcium 9.6. PROBLEMS: 1. End-stage renal disease. The patient is due for dialysis and will be dialyzed this afternoon. Today is his regular dialysis day, and he will continue with the same schedule as an outpatient after discharge. 2. Congestive heart failure. His volume status has been reasonably well compensated here in the hospital. He understands to continue following his fluid restriction of 1500 mL per day after discharge. We will try to remove about 3 liters of fluid today as tolerated. 3. Anemia. His anemia has been stable and does not need any intervention at this time. 4. Left hip acetabulum fracture. The patient is currently undergoing rehab and making progress. He is anticipating going home tomorrow. From a renal standpoint, he is stable for discharge and he can continue with outpatient dialysis. JESSY
[2020-05-12] MEDS: LIDOCAINE 5% (LIDODERM) PATCH TD SCH ×3 (21:00→21:05)
[2020-05-12] MEDS: SENNA 8.6 MG TAB (SENOKOT) PO SCH (21:06)
[2020-05-12] MEDS: MORPHINE 15 MG SA TAB PO SCH (22:59)
[2020-05-13] MEDS: MORPHINE 30 MG TAB **MSIR PO PRN (05:31)
[2020-05-13 06:00] VITALS: BP 120/59
[2020-05-13] MEDS: TIOTROPIUM INHALER/CAPSULE (SPIRIVA) INH SCH (07:25)
[2020-05-13 09:00] VITALS: BP 120/59
[2020-05-13] MEDS: MOM 30ML SUSPENSION UDC PO SCH (09:00)
[2020-05-13] MEDS: CARVedilol 3.125 MG TAB PO SCH (09:00)
[2020-05-13] MEDS: REMEDY PHYTOPLEX Z-GUARD PASTE 113GM TUBE (FROM STOREROOM PRODUCT) TOP SCH (09:00)
[2020-05-13] MEDS: ACETAMINOPHEN 500 MG TAB PO SCH (09:05)
[2020-05-13] MEDS: CO-ENZYME Q10 50 MG CAP PO SCH (09:05)
[2020-05-13] MEDS: CALCITRIOL 0.25 MCG CAP (S0169) PO SCH (09:06)
[2020-05-13] MEDS: PANTOPRAZOLE 40MG TAB (PROTONIX) PO SCH (09:06)
[2020-05-13] MEDS: DOCUSATE SODIUM 100 MG CAP PO SCH (09:06)
[2020-05-13] MEDS: MULTIVITAMINS/MINERALS THERAP 1 TAB PO SCH (09:06)
[2020-05-13] MEDS: predniSONE 5 MG TAB PO SCH (09:06)
[2020-05-13] MEDS: TORSEMIDE 20 MG TAB PO SCH (09:07)
[2020-05-13] MEDS: CLOPIDOGREL 75 MG TAB PO SCH (09:07)
[2020-05-13] MEDS: DULoxetine 30 MG CAP (CYMBALTA) PO SCH (09:07)
[2020-05-13] MEDS: CALCIUM/VITAMIN D 500 MG TAB PO SCH (09:07)
[2020-05-13] MEDS: ATORVASTATIN 20 MG TAB PO SCH (09:07)
[2020-05-13] MEDS: SILVER SULFADIAZINE 1% CR 50 GM JAR TOP SCH (09:08)
[2020-05-13] MEDS: **NOTE PATIENT COMMENT** MISC XX SCH ×2 (09:08)
[2020-05-13] MEDS: IPRATROPIUM 0.5MG/ALBUTEROL 2.5MG INH SOL UD 3ML (DUONEB) NEB SCH (12:00)
--- NOTE | 2020-05-13 14:55 | IPNPDOC ---
Date Seen The patient was seen on 05/13/20. Progress Note SUBJECTIVE: Markell was seen and examined this morning by the nephrology service while sitting in a bedside chair in ARU. He is excited be discharged today and go home. He underwent his regularly scheduled Friday hemodialysis session yesterday, with fluid removal of 3L; tolerating it well. No labs were ordered for today, but labs yesterday showed stable electrolytes. He denies any fever, chills, chest pain, palpitations, shortness of breath, nausea or vomiting currently or overnight. OBJECTIVE PHYSICAL EXAMINATION: VITAL SIGNS: Please see below. PHYSICAL EXAMINATION: VITAL SIGNS: Please see below. GENERAL APPEARANCE: Pleasant elderly male sitting in bedside chair at time of exam. No acute distress. Alert and oriented 3. HEENT: Normocephalic, atraumatic. Wearing eyeglasses. Noninjected, anicteric sclera. Neck is supple with no JVD appreciated. RESPIRATORY: Bilateral fine crackles remain present at lung bases posteriorly. Symmetric chest expansion. Breathing room air and speaking full sentences. CARDIOVASCULAR: Regular rate and rhythm. +S1, S2. 2/6 systolic murmur once again was auscultated and appreciated best at right parasternal second intercostal space. No JVD. 1-2+ b/l LE pitting edema present. ABDOMEN: Soft, nontender with normoactive bowel sounds throughout. No guarding or rigidity appreciated. EXTREMITIES: Bilateral lower extremity 1-2+ pitting edema. Lower extremities are wrapped with Chidi bandages. No cyanosis or clubbing noted. AV fistula present in left arm. MUSCULOSKELETAL: Patient is nonweightbearing with reduced range of motion and ambulation secondary to left pelvic fracture. NEUROLOGICAL: Awake, alert and oriented 3. No focal neurologic deficits appreciated. Non-dysarthric speech. PSYCHIATRIC: Mood and affect appear appropriate. LABORATORY DATA, IMAGING STUDIES, MICROBIOLOGY: Please see below. PROBLEMS: #End stage renal disease on hemodialysis -. He underwent Portuguese scheduled Friday hemodialysis session yesterday with removal of 3 L of fluid. He tolerated the dialysis session well. He will be getting discharged home today and will resume with outpatient hemodialysis sessions on a Friday, Friday, Friday basis. #Chronic diastolic congestive heart failure -He has tolerated his hemodialysis sessions while in ARU and will continue them as an outpatient on Friday, Friday, Friday basis after discharge home today. -His home torsemide qd and carvedilol bid regimen were continued during the stay in ARU. #Anemia and end-stage renal disease -Hemoglobin remains stable over the past week and he received Aranesp ad ministrations coterminously with his hemodialysis. 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 -Of note, he did continue to receive his daily 5 mg of prednisone. #Left acetabular wall fracture with collapse of left femoral head -[facility] in [place] did not deem him an appropriate surgical candidate due to comorbidities. He has completed roughly 2 weeks of therapy in ARU and made significant progress to warrant his discharge home today. #Chronic gout secondary to chronic kidney disease -Continue to receive oral Uloric q48h during stay. #Coronary artery disease s/p coronary artery bypass grafting -Atorvastatin and clopidogrel were continued during stay. Thank you very much for allowing the nephrology service to participate in Markell's care during his stay. We will continue to see Markell for his regularly scheduled Friday, Friday and Friday hemodialysis sessions as an outpatient beginning in 2 days (05/15). VS, I&O, 24H, Fishbone Vital Signs/I&O Vital Signs Date Time Temp Pulse Resp B/P (MAP) Pulse Ox O2 Delivery O2 Flow Rate FiO2 05/13/20 09:00 57 120/59 05/13/20 06:36 18 05/13/20 06:00 97.8 95 Room Air 05/07/20 14:00 2.0 I&O- Last 24 Hours up to 6 AM 05/13/20 06:00 Intake Total 940 ml Output Total 3200 ml Balance -2260 ml Laboratory Data 24H LABS Laboratory Tests 2 05/13/20 06:17: Bedside Glucose (Misc Panel) 107 GME ATTESTATION GME ATTESTATION My faculty preceptor for this patient encounter was physically present during the encounter and was fully available. All aspects of the patient interview, examination, medical decision making process, and medical care plan development were reviewed and approved by the faculty preceptor. The faculty preceptor is aware and concurs with the plan as stated in the body of this note and will attest to such by his/her cosignature. ATTENDING NOTE ESRD on HD LE Edema HFpEF Anemia in ESRD Lt acetabular wall fracture. HD on Friday as outpatient. Extra UF session next week if edema doesn't improve. Pt able to ambulate now. OK to discharge home from nephrology standpoint. SYMONE CASTRO D.O. May 13, 2020 14:55 BUSTER ANN MD May 13, 2020 18:42
== END 2020-05-13 12:15 | disposition home health service (06) | DRG 559 ==
LOC: M PM&R 04-28 16:37
PROVIDERS: ADMIT Physical Medicine & Rehabilitation; ATTEND Physical Medicine & Rehabilitation
PROC: 5A1D70Z Performance of Urinary Filtration, Intermittent, Less than 6 Hours Per Day (ICD-10-PCS; principal; 2020-04-30)
DX: M84.452D Pathological fracture, left femur, subsequent encounter for fracture with routine healing (principal); N18.6 End stage renal disease; M87.152 Osteonecrosis due to drugs, left femur; I50.32 Chronic diastolic (congestive) heart failure; T38.0X5A Adverse effect of glucocorticoids and synthetic analogues, initial encounter; I25.10 Atherosclerotic heart disease of native coronary artery without angina pectoris; G47.33 Obstructive sleep apnea (adult) (pediatric); M10.9 Gout, unspecified; E11.22 Type 2 diabetes mellitus with diabetic chronic kidney disease; E11.621 Type 2 diabetes mellitus with foot ulcer; L97.519 Non-pressure chronic ulcer of other part of right foot with unspecified severity; K59.00 Constipation, unspecified; D64.9 Anemia, unspecified; Z99.2 Dependence on renal dialysis; Z95.2 Presence of prosthetic heart valve; Z96.621 Presence of right artificial elbow joint; Z95.1 Presence of aortocoronary bypass graft; Z79.4 Long term (current) use of insulin; Z79.899 Other long term (current) drug therapy; Z88.6 Allergy status to analgesic agent; Z88.0 Allergy status to penicillin; Z88.1 Allergy status to other antibiotic agents; Z91.19 Patient's noncompliance with other medical treatment and regimen

== ENCOUNTER 2020-06-10 07:35 | Emergency (ER) | payer MEDICARE, OTHER ==
[~2020-06-10 07:35] MED LIST changes: +ACET-683 PO; +ACET-907 PO; +AMLO1TAB24 PO; -AMLO5TAB6 PO; +CALCD50TA PO; +CARV3.12 PO; +COQ1200C PO; +CYMB1CAP5 PO; +D31000TA2 PO; +DULO1CAP6 PO; +FEBU80TA PO; +IBUP40TA PO; +MIRA3350 PO; -MOVA1TAB2 PO; +NALO25TA PO; +OYST500T91 PO; +PANT20TA51 PO; +RA S8.6T3 PO; +SILV50CR TOP; -VITA1TAB23 PO; +VITA250T20 PO; -VITAD1000T PO
[2020-06-10] MEDS ORDERED: MORPHINE 30 MG TAB **MSIR As Ordered ONE (08:51)
[2020-06-10] MEDS ORDERED: MORPHINE 30 MG TAB **MSIR ONE (08:51)
[2020-06-10] MEDS ORDERED: HYDROMORPHONE HCL 0.5 MG/ 0.5 ML SYRINGE (J1170 PER 1) As Ordered ONE (09:26)
[2020-06-10] MEDS ORDERED: HYDROMORPHONE HCL 0.5 MG/ 0.5 ML SYRINGE (J1170 PER 1) ONE (09:26)
== END 2020-06-10 10:10 | disposition home or self-care (01) ==
LOC: M ED 07:35
DX: Z51.81 Encounter for therapeutic drug level monitoring (principal); G89.29 Other chronic pain; M25.512 Pain in left shoulder; M25.552 Pain in left hip; E11.9 Type 2 diabetes mellitus without complications; I10 Essential (primary) hypertension; I25.2 Old myocardial infarction; E78.5 Hyperlipidemia, unspecified; M84.452D Pathological fracture, left femur, subsequent encounter for fracture with routine healing; Z88.0 Allergy status to penicillin; Z79.51 Long term (current) use of inhaled steroids; Z79.899 Other long term (current) drug therapy; Z79.4 Long term (current) use of insulin
CPT/HCPCS: 96372; 99284; J1170

== ENCOUNTER 2020-06-14 22:52 | Observation (INO) | payer MEDICARE, OTHER ==
[~2020-06-14] VITALS: Ht 167.6 cm; Wt 88.6 kg
[2020-06-15 00:22] LABS: HEMATOCRIT 33.8 % (42.0-52.0); HEMOGLOBIN 10.9 g/dl (13.5-17.5); MEAN CORPUSCULAR HEMOGLOBIN 33.5 pg (27.0-33.0); MEAN CORPUSCULAR HGB CONC 32.2 g/dl (32.0-36.5); PLATELET COUNT, AUTOMATED 223 10^3/uL (150-450); RED BLOOD COUNT 3.25 10^6/uL (4.30-6.10); WHITE BLOOD COUNT 15.8 10^3/uL (4.0-10.0)
[2020-06-15 00:24] LABS: CALCIUM LEVEL 9.5 MG/DL (8.8-10.2); CREATININE FOR GFR 3.03 MG/DL (0.70-1.30); GLOMERULAR FILTRATION RATE 21.5 (>42); POTASSIUM SERUM 3.8 MEQ/L (3.5-5.1)
[2020-06-15] MEDS ORDERED: CO Q100C2 PO (00:50)
[2020-06-15] MEDS ORDERED: TORS20TA2 PO (00:50)
[2020-06-15] MEDS ORDERED: BACITAB PO (00:50)
[2020-06-15] MEDS ORDERED: CALC1TAB26 PO (00:50)
[2020-06-15] MEDS ORDERED: CARV3.12 PO (00:50)
[2020-06-15] MEDS ORDERED: HM V4000 PO (00:50)
[2020-06-15] MEDS ORDERED: ULOR80TA PO (00:50)
[2020-06-15] MEDS ORDERED: DOCU100C17 PO (00:50)
[2020-06-15] MEDS ORDERED: ACET25TA12 PO (00:50)
[2020-06-15] MEDS ORDERED: ACETAMINOPHEN TAB 650MG DOSE (2X325MG) PO PRN (01:30)
[2020-06-15] MEDS ORDERED: BENZ200C70 PO (01:35)
[2020-06-15] MEDS ORDERED: ALPR0.25 PO (01:35)
[2020-06-15] MEDS ORDERED: DILA2TAB6 PO (01:35)
[2020-06-15] MEDS ORDERED: BACL10TA2 PO (01:35)
[2020-06-15] MEDS ORDERED: ALBU83IN INH (01:35)
[2020-06-15] MEDS ORDERED: HYDR-3363 PO (01:35)
[2020-06-15] MEDS ORDERED: PROAAER10 INH (01:35)
[2020-06-15] MEDS ORDERED: SANT250O8 TOP (01:35)
--- NOTE | 2020-06-15 01:35 | HPEPDOC ---
[facility] Medical History & Physical Date of Admission Jun 15, 2020 Date of Service: Jun 15, 2020 History and Physical CHIEF COMPLAINT: Intractable L. 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 He has been following with pain management outpatient for a period of time, reportedly medication was changed and has been ineffective in controlling patient's pain. He was previously on morphine 15 mg PO BID daily and had reportedly stopped working and changed to dilaudid at a lower dose than his morphine equivalent? Of note, He has had severe difficult to control pain even prior to this hip fracture. Apart from the pain, he denies any other complaints including any chest pain, SOB, fever or chills. PAST MEDICAL HISTORY: Refer to HPI PAST SURGICAL HISTORY: Spinal cord stimulator SOCIAL HISTORY: Denies tobacco, alcohol or drugs. FAMILY HISTORY: Mother-- DM ALLERGIES: Please see below. REVIEW OF SYSTEMS: 10 point ROS negative except as above HOME MEDICATIONS: Please see below. PHYSICAL EXAMINATION: VITAL SIGNS: Please see below. GENERAL: Moderate distress lying in bed HEENT: Normocephalic, atraumatic, moist mucous membranes NECK: Supple CARDIOVASCULAR EXAMINATION: Normal rate, normal rhythm RESPIRATORY EXAMINATION: Clear to auscultation, no wheezing ABDOMINAL EXAMINATION: Soft, nontender, nondistended MSK: Diffuse joint pain, worst over L. hip with any movement. EXTREMITIES: Range of motion intact SKIN: No rash. b/l dressings in LEs wrapped below the knees with TRAVIS wrap. NEUROLOGICAL EXAMINATION: Alert and oriented 3, no focal deficits LABORATORY DATA: See below. IMAGING: None MICROBIOLOGY: Please see below. ASSESSMENT AND PLAN: 1. Intractable pain, worst over L. hip, acute on chronic - Recently changed from morphine 15 mg BID to dilaudid 2 mg PO TID PRN for pain, duloxetine, baclofen. - Pain improved on IV dilaudid. Will try 2mg PO Q6HP while pending pain management's evaluation. - Consult pain management in AM. 2. ESRD on HD - MWF. If patient stays until Friday, will need nephro consultation for HD. - c/w home meds. 3. HFpEF - No evidence of fluid overload at this time. - c/w torsemide 40 mg daily. Monitor I/O. 4. CAD - c/w statin, Plavix and BB. 5. ABELARDO - noncompliant with CPAP 6. HLD - statin 7. NIDDM - diet controlled. - consistent carbohydrate diet. - ISS. 8. Gout - uloric DVT ppx: HSQ Code status: Full code Vital Signs Vital Signs Date Time Temp Pulse Resp B/P (MAP) Pulse Ox O2 Delivery O2 Flow Rate FiO2 06/15/20 00:45 99 16 125/65 96 Room Air 06/14/20 23:07 99.1 Laboratory Data Labs 24H Laboratory Tests 2 06/14/20 23:53: Nucleated Red Blood Cells % (auto) 0.0, Anion Gap 5L, Glomerular Filtration Rate 21.5L, Calcium Level 9.5 CBC/BMP Laboratory Tests 06/14/20 23:53 Home Medications Scheduled Acetaminophen/Diphenhydramine (Acetaminophen Pm Caplet) 1 Each Tablet, 2 TAB PO QHS Atorvastatin Calcium (Atorvastatin Calcium) 20 Mg Tablet, 20 MG PO QHS Calcitriol (Calcitriol) 0.25 Mcg Capsule, 0.25 MCG PO 3XW FRIDAY, FRIDAY AND FRIDAY Calcium Carbonate/Vitamin D3 (Calcium 600-Vit D3 800 Tablet) 1 Each Tablet, 1 TAB PO QHS Carvedilol (Carvedilol) 3.125 Mg Tablet, 3.125 MG PO BID Cholecalciferol (Vitamin D3) (Vitamin D3) 100 Mcg (4000 Unit) Capsule, 100 MCG PO DAILY Clopidogrel Bisulfate (Clopidogrel) 75 Mg Tablet, 75 MG PO DAILY Collagenase Clostridium Hist. (Santyl) 30 Gm Oint...g., 1 DOSE TOP DAILY APPLIES TO RIGHT TOE ULCER Docusate Sodium (Docusate Sodium) 100 Mg Capsule, 100 MG PO BID Duloxetine Hcl (Duloxetine HCl) 60 Mg Capsule.dr, 60 MG PO QHS Febuxostat (Uloric) 80 Mg Tablet, 80 MG PO Q2D L.acidoph/L.bulg/B.bif/S.therm (Bacid Caplet) 1 Each Tablet, 1 TAB PO QHS Multivitamins (Thera M Plus Tablet) 1 Each Tablet, 1 TAB PO DAILY Naldemedine Tosylate (Symproic) 0.2 Mg Tablet, 0.2 MG PO DAILY Prednisone (Prednisone) 5 Mg Tablet, 5 MG PO DAILY Tiotropium [place] (Spiriva Respimat) 4 Gm Mist.inhal, 2 PUFF INH DAILY Torsemide (Torsemide) 20 Mg Tablet, 40 MG PO DAILY Ubidecarenone (Co Q-10) 100 Mg Capsule, 200 MG PO BID Scheduled PRN Albuterol Sulf (Albuterol Sulfate) 2.5 Mg/3 Ml Vial.neb, 2.5 MG INH Q2H PRN for SHORTNESS OF BREATH Albuterol Sulfate (Proair Hfa) 8.5 Gm Hfa.aer.ad, 2 PUFF INH Q4H PRN for SHORTNESS OF BREATH Alprazolam (Alprazolam) 0.25 Mg Tablet, 0.25 MG PO TID PRN for ANXIETY Baclofen (Baclofen) 10 Mg Tablet, 10 MG PO BID PRN for MUSCLE SPASMS Benzonatate (Benzonatate) 200 Mg Capsule, 200 MG PO Q8H PRN for COUGH Hydromorphone HCl (Dilaudid) 2 Mg Tablet, 2 MG PO TID PRN for PAIN Hydroxyzine HCl (Hydroxyzine HCl) 25 Mg Tablet, 25 MG PO TID PRN for ITCHING Allergies Coded Allergies: aspirin (Verified Allergy, Severe, LIPS SWELL, 03/29/19) Penicillins (Verified Allergy, Intermediate, RASH, 04/15/19) ampicillin (Verified Allergy, Intermediate, HIVES, 03/17/19) ceftriaxone (Verified Allergy, Unknown, UNKNOWN REACTION, 04/09/19) A-FIB/CHADSVASC A-FIB History Current/History of A-Fib/PAF?: No ALEIDA VALENTINE MD Jun 15, 2020 01:35
[2020-06-15] MEDS: HYDROMORPHONE HCL 0.5 MG/ 0.5 ML SYRINGE (J1170 PER 1) IV PRN ×2 (01:52)
[2020-06-15] MEDS ORDERED: BENZONATATE 100 MG CAP PO PRN (02:00)
[2020-06-15] MEDS ORDERED: hydrOXYzine 25 MG TAB PO PRN (02:00)
[2020-06-15] MEDS ORDERED: BACLOFEN 10 MG TAB PO PRN (02:00)
[2020-06-15] MEDS ORDERED: ALBUTEROL SULFATE 2.5 MG/0.5 ML INH NEB SOLN INH PRN (02:00)
[2020-06-15] MEDS ORDERED: HYDROmorphone 2 MG TAB PO PRN (02:00)
[2020-06-15] MEDS ORDERED: ALBUTEROL 90 MCG/ACT 8GM HFA INHALER INH PRN (02:00)
[2020-06-15] MEDS: HYDROmorphone 2 MG TAB PO PRN ×2 (04:12→10:28)
[2020-06-15] MEDS: ALPRAZolam 0.25 MG TAB PO PRN ×2 (04:13→21:05)
[2020-06-15] MEDS ORDERED: HYDROMORPHONE HCL 0.5 MG/ 0.5 ML SYRINGE (J1170 PER 1) IV ONE ×2 (07:45→16:30)
[2020-06-15] MEDS ORDERED: TIOTROPIUM INHALER/CAPSULE (SPIRIVA) INH SCH (08:00)
[2020-06-15 08:30] VITALS: BP 130/78
--- NOTE | 2020-06-15 08:49 | REPVR ---
PROCEDURE INFORMATION: Exam: CT Left Lower Extremity Without Contrast, Hip Exam date and time: 06/15/2020 8:09 AM Age: 75 years old Clinical indication: Pain; Hip; Left TECHNIQUE: Imaging protocol: CT of the Left lower extremity without contrast was performed. Exam focused on the hip. Radiation optimization: All CT scans at this facility use at least one of these dose optimization techniques: automated exposure control; mA and/or kV adjustment per patient size (includes targeted exams where dose is matched to clinical indication); or iterative reconstruction. COMPARISON: VT Hip, Ap,Lat 11/08/2019 9:32 AM FINDINGS: Bones/joints: There is potentially further medial displacement of comminuted fragments involving likely subacute fracture of the left medial acetabular margin and acute progressive displacement or re-injury would not be entirely excluded. There is prominent flattening and distortion of the superior left femoral head and proximal subcapital femoral neck likely showing further interval collapse and distortion. There is prominent periarticular soft tissue reaction and joint effusion. Persistent prominent medial acetabular protrusion. Area of sclerosis of left iliac bone. Prominent osteopenia. Heterogeneity of bone density of the left sacrum limited by extensive motion. Nonspecific area of sclerosis proximal left femur. Partially included left sacrum demonstrating heterogeneity and prominent area of lucency at the sacral ala. Soft tissues: See "Bones/joints" finding. Possible prostatic impression with defect at the bladder base versus bladder based abnormality. Vasculature: Vascular calcification. Reproductive: Prostate gland enlargement with prostatic calcifications. Other findings: Extensive motion degradation. IMPRESSION: 1. Marked limitation secondary to motion degradation. 2. Persistent likely subacute or chronic component of left acetabular protrusion and comminuted fracture of the medial acetabulum showing interval progression in the extent of displacement compared to 04/20/2020. This could reflect interval re-injury. 3. Progression of collapse and distortion of the left femoral head and medial left femoral neck which could be on the basis of progressive changes of osteonecrosis, further impaction related to acute posttraumatic injury or other destructive process to include septic arthritis. 4. Nonspecific foci of sclerosis left femur and left iliac bone. 5. Partially included prominent heterogeneity with areas of lucency of the left sacrum which could be on the basis of aggressive osteoporosis or partial underlying sacral insufficiency fracture similar to previous CT. Electronically signed by: Patricia Tsai On 06/15/2020 08:49:07 AM
[2020-06-15] MEDS ORDERED: FEBUXOSTAT 40 MG TABLET (ULORIC) PO SCH (09:00)
[2020-06-15] MEDS ORDERED: CLOPIDOGREL 75 MG TAB PO SCH (09:00)
[2020-06-15] MEDS ORDERED: DOCUSATE SODIUM 100 MG CAP PO SCH (09:00)
[2020-06-15] MEDS ORDERED: predniSONE 5 MG TAB PO SCH (09:00)
[2020-06-15] MEDS ORDERED: ENTER DRUG NAME HERE (PATIENT'S OWN MED) INH SCH (09:00)
[2020-06-15] MEDS ORDERED: CARVedilol 3.125 MG TAB PO SCH (09:00)
[2020-06-15] MEDS ORDERED: MULTIVITAMINS/MINERALS THERAP 1 TAB PO SCH (09:00)
[2020-06-15] MEDS ORDERED: SANTYL OINT 30GM TOP SCH (09:00)
[2020-06-15] MEDS ORDERED: HEPARIN SOD (PORCINE) 5000UNITS/ML 1ML VIAL/SYRINGE SQ SCH (09:00)
[2020-06-15] MEDS ORDERED: ENTER DRUG NAME HERE (PATIENT'S OWN MED) PO SCH ×2 (09:00→21:00)
[2020-06-15] MEDS ORDERED: TORSEMIDE 20 MG TAB PO SCH (09:00)
--- NOTE | 2020-06-15 09:05 | REPVR ---
PROCEDURE INFORMATION: Exam: CT Lumbar Spine Without Contrast Exam date and time: 06/15/2020 8:09 AM Age: 75 years old Clinical indication: Pain; Other: Hip TECHNIQUE: Imaging protocol: Computed tomography images of the lumbar spine without contrast. Radiation optimization: All CT scans at this facility use at least one of these dose optimization techniques: automated exposure control; mA and/or kV adjustment per patient size (includes targeted exams where dose is matched to clinical indication); or iterative reconstruction. COMPARISON: CT Spine, lumbar w/o contrast 04/09/2019 10:42 AM FINDINGS: Vertebrae: Diffuse degenerative hypertrophic formation. Diffuse interspace narrowing with degenerative vacuum disc L1 through L5. There is similar superior endplate concavity and depression of L2. Slight posterior subluxation L1 on L2 and L2 on L3 are similar. L1-L2: No severe canal stenosis. Facet arthritis. L2-L3: Mild central canal encroachment secondary to facet arthritis and posterior subluxation deformity and disc osteophyte formation. Mild foraminal narrowing. L3-L4: Facet arthritis with posterior disc bulge or disc osteophyte formation manifest moderate to moderately severe central canal stenosis with bilateral neural foraminal encroachment mild to moderate. L4-L5: Posterior disc osteophyte formation with asymmetric right paracentral and lateral disc bulge with resultant mild to moderate central canal encroachment and mild bilateral foraminal narrowing. L5-S1: Posterior degenerative disc osteophyte formation with bilateral neural foraminal narrowing of mild involvement on the left and moderately severe to severe on the right. Other bones/joints: Areas of sclerosis of the iliac bones. Chronic lower left posterior rib fracture deformities. Heterogeneity of bone density in the sacrum with prominent areas of diminished density and more focal osteopenia. Kidneys and ureters: Exophytic hyperdense lesion posterior left kidney limited in definition and assessment measures 1.4 cm. Soft tissues: Unremarkable. IMPRESSION: 1. Rather advanced degenerative changes of lumbar spine similar to previous. 2. Moderate to moderately severe central canal stenosis L3-L4 with moderate central canal stenosis L4-L5. 3. Areas of sclerosis which are nonspecific iliac bones. 4. Partially exophytic hyperdense mass inferior left kidney. Recommend MR without and with contrast or CT without and with contrast. MR is preferred for masses under 1.5 cm. 5. Prominent areas of lucency with bone heterogeneity at the sacral ala which could be on the basis of aggressive osteoporosis or underlying partial involvement of insufficiency fractures. Electronically signed by: Patricia Tsai On 06/15/2020 09:06:01 AM
[2020-06-15 10:29] VITALS: BP 119/60
[2020-06-15 11:40] LABS: BASO # 0.1 10^3/uL (0.0-0.2); BASO % 0.4 % (0.0-1.0); EOS # 0.6 10^3/uL (0.0-0.5); EOS % 4.1 % (0.0-3.0); HEMATOCRIT 34.7 % (42.0-52.0); HEMOGLOBIN 10.9 g/dl (13.5-17.5); LYMPH # 1.7 10^3/uL (1.5-5.0); LYMPH % 11.9 % (24.0-44.0); MEAN CORPUSCULAR HEMOGLOBIN 33.1 pg (27.0-33.0); MEAN CORPUSCULAR HGB CONC 31.4 g/dl (32.0-36.5); MEAN CORPUSCULAR VOLUME 105.5 fl (80.0-96.0); MONO # 1.1 10^3/uL (0.0-0.8); MONO % 8.2 % (0.0-5.0); NEUTROPHILS # 10.3 10^3/uL (1.5-8.5); NEUTROPHILS % 74.2 % (36.0-66.0); PLATELET COUNT, AUTOMATED 191 10^3/uL (150-450); RED BLOOD COUNT 3.29 10^6/uL (4.30-6.10); WHITE BLOOD COUNT 13.9 10^3/uL (4.0-10.0)
[2020-06-15 12:05] LABS: ERYTHROCYTE SEDIMENTATION RATE 65 mm/hr (0-20)
[2020-06-15 12:16] LABS: ALBUMIN 3.3 GM/DL (3.2-5.2); BILIRUBIN,TOTAL 0.8 MG/DL (0.2-1.0); C REACTIVE PROTEIN QUANTITATIV 5.81 MG/DL (0.00-0.30); CALCIUM LEVEL 9.3 MG/DL (8.8-10.2); CREATININE FOR GFR 3.43 MG/DL (0.70-1.30); GLOMERULAR FILTRATION RATE 18.6 (>42); POTASSIUM SERUM 3.9 MEQ/L (3.5-5.1); TOTAL PROTEIN 6.3 GM/DL (6.4-8.2)
[2020-06-15 14:00] VITALS: BP 121/66
[2020-06-15] MEDS ORDERED: VANCOMYCIN HCL 2,000 MG, VIAL MATE ADAPTER 1 EACH in D5W 250 ML IV SCH (16:45)
--- NOTE | 2020-06-15 17:09 | DS.PDOC ---
Discharge Summary General Date of Admission Jun 15, 2020 at 01:29 Date of Discharge 06/15/20 Attending Physician: DANIEL MINAYA MD Specialist/Consultants Involve: CAMERON MITCHELL MD Discharge Summary PROCEDURES PERFORMED DURING STAY: None. ADMITTING/DISCHARGE DIAGNOSES: 1. Intractable L hip pain; progressive hip fx. ? septic arthritis 2. ESRD on HD M/W/F 3. HFpEF, compensated 4. CAD 5. ABELARDO 6. NIDDM 7. H/o PAD COMPLICATIONS/CHIEF COMPLAINT: Acute on chronic left hip pain. HISTORY OF PRESENT ILLNESS/HOSPITAL COURSE: As per medical records: 75 year old male with recent L. hip fracture 2/ AVN d/t chronic steroid use in March (transferred to [facility] but surgery is deferred and was sent to ARU for Rehab in April prior to discharge home), multiple recurrent admissions with pain complaints or lethargy from medications, chronic HFpEF, CAD, Restrictive lung disease, ABELARDO on CPAP, gout, DM, Bladder cancer, b/l leg ulcers presents to the ER today with complaints of intractable pain. He has been following with pain management outpatient for a period of time, reportedly medication was changed and has been ineffective in controlling patient's pain. He was previously on morphine 15 mg PO BID daily and had reportedly stopped working and changed to dilaudid at a lower dose than his morphine equivalent? Of note, He has had severe difficult to control pain even prior to this hip fracture. Apart from the pain, he denies any other complaints including any ches t pain, SOB, fever or chills. After admission, pt had CT L spine and hip given extent of his uncontrolled pain (see below). I have spoken with Dr. Tiwari who recommends transferring pt to [facility] for further evaluation of the hip given the intractable pain and complexity of the needed surgery. Given ? septic arthritis with ESR 65, leukocytosis, bld cx ordered. Plan was to receive Abx, however Discussed with Dr. Tiwari who recc Abx be started in [facility]. ?need for aspiration biopsy/cx prior to abx. I have spoken with Dr. Light who has graciously accepted the patient for transfer. I have also spoken with Dr. Schumacher who notes someone from his team will evaluate the patient once he gets there. Pt is hemodynamically stable. Discussed with Pt/, who are agreeable with the plan. DISCHARGE MEDICATIONS: Please see below. ALLERGIES: Please see below. PHYSICAL EXAMINATION ON DISCHARGE: Vitals: (see below) General: No acute distress HEENT: Moist mucous membranes. Neck: No JVD or lymphadenopathy Cardiac: RRR Pulm: Clear to auscultation b/l. No wheezing, rhonchi Abd: NT/ND + BS Ext: 1+ edema BLE with chronic ulcers; do not appear infected. Dital pulses intact. No cyanosis Strength 5/5 RLE. Unable to evaluate strenght of LLE 2/2 pain LABORATORY DATA: Please see below. IMAGING: CT L spine: FINDINGS: Vertebrae: Diffuse degenerative hypertrophic formation. Diffuse interspace narrowing with degenerative vacuum disc L1 through L5. There is similar superior endplate concavity and depression of L2. Slight posterior subluxation L1 on L2 and L2 on L3 are similar. L1-L2: No severe canal stenosis. Facet arthritis. L2-L3: Mild central canal encroachment secondary to facet arthritis and posterior subluxation deformity and disc osteophyte formation. Mild foraminal narrowing. L3-L4: Facet arthritis with posterior disc bulge or disc osteophyte formation manifest moderate to moderately severe central canal stenosis with bilateral neural foraminal encroachment mild to moderate. L4-L5: Posterior disc osteophyte formation with asymmetric right paracentral and lateral disc bulge with resultant mild to moderate central canal encroachment and mild bilateral foraminal narrowing. L5-S1: Posterior degenerative disc osteophyte formation with bilateral neural foraminal narrowing of mild involvement on the left and moderately severe to severe on the right. Other bones/joints: Areas of sclerosis of the iliac bones. Chronic lower left posterior rib fracture deformities. Heterogeneity of bone density in the sacrum with prominent areas of diminished density and more focal osteopenia. Kidneys and ureters: Exophytic hyperdense lesion posterior left kidney limited in definition and assessment measures 1.4 cm. Soft tissues: Unremarkable. IMPRESSION: 1. Rather advanced degenerative changes of lumbar spine similar to previous. 2. Moderate to moderately severe central canal stenosis L3-L4 with moderate central canal stenosis L4-L5. 3. Areas of sclerosis which are nonspecific iliac bones. 4. Partially exophytic hyperdense mass inferior left kidney. Recommend MR without and with contrast or CT without and with contrast. MR is preferred for masses under 1.5 cm. 5. Prominent areas of lucency with bone heterogeneity at the sacral ala which could be on the basis of aggressive osteoporosis or underlying partial involvement of insufficiency fractures. CT Hip: FINDINGS: Bones/joints: There is potentially further medial displacement of comminuted fragments involving likely subacute fracture of the left medial acetabular margin and acute progressive displacement or re-injury would not be entirely excluded. There is prominent flattening and distortion of the superior left femoral head and proximal subcapital femoral neck likely showing further interval collapse and distortion. There is prominent periarticular soft tissue reaction and joint effusion. Persistent prominent medial acetabular protrusion. Area of sclerosis of left iliac bone. Prominent osteopenia. Heterogeneity of bone density of the left sacrum limited by extensive motion. Nonspecific area of sclerosis proximal left femur. Partially included left sacrum demonstrating heterogeneity and prominent area of lucency at the sacral ala. Soft tissues: See "Bones/joints" finding. Possible prostatic impression with defect at the bladder base versus bladder based abnormality. Vasculature: Vascular calcification. Reproductive: Prostate gland enlargement with prostatic calcifications. Other findings: Extensive motion degradation. IMPRESSION: 1. Marked limitation secondary to motion degradation. 2. Persistent likely subacute or chronic component of left acetabular protrusion and comminuted fracture of the medial acetabulum showing interval progression in the extent of displacement compared to 04/20/2020. This could reflect interval re-injury. 3. Progression of collapse and distortion of the left femoral head and medial left femoral neck which could be on the basis of progressive changes of osteonecrosis, further impaction related to acute posttraumatic injury or other destructive process to include septic arthritis. 4. Nonspecific foci of sclerosis left femur and left iliac bone. 5. Partially included prominent heterogeneity with areas of lucency of the left sacrum which could be on the basis of aggressive osteoporosis or partial underlying sacral insufficiency fracture similar to previous CT. PROGNOSIS: Poor ACTIVITY: As tolerated. NWB Left LE DIET: Low Na; 1500cc fluid restriction DISCHARGE PLAN/DISPOSITION: Transfer to [facility] DISCHARGE INSTRUCTIONS:F/u with PCP, Orthopedics, Vascular surgery, Cardiology, Pulmonary as recommended by [facility] . DISCHARGE CONDITION: Stable. TIME SPENT ON DISCHARGE: 50 minutes. Vital Signs/I&Os Vital Signs Date Time Temp Pulse Resp B/P (MAP) Pulse Ox O2 Delivery O2 Flow Rate FiO2 06/15/20 16:22 16 06/15/20 10:29 101 119/60 06/15/20 08:30 97.7 96 Room Air Laboratory Data Labs 24H Laboratory Tests 2 06/14/20 23:53: Nucleated Red Blood Cells % (auto) 0.0, Anion Gap 5L, Glomerular Filtration Rate 21.5L, Calcium Level 9.5 06/15/20 10:20: Nucleated Red Blood Cells % (auto) 0.0, Anion Gap 7L, Glomerular Filtration Rate 18.6L, Calcium Level 9.3, Immature Granulocyte % (Auto) 1.2, Neutrophils (%) (Auto) 74.2H, Lymphocytes (%) (Auto) 11.9L, Monocytes (%) (Auto) 8.2H, Eosinophils (%) (Auto) 4.1H, Basophils (%) (Auto) 0.4, Neutrophils # (Auto) 10.3H, Lymphocytes # (Auto) 1.7, Monocytes # (Auto) 1.1H, Eosinophils # (Auto) 0.6H, Basophils # (Auto) 0.1, Erythrocyte Sedimentation Rate 65H, Total Bilirubin 0.8, Aspartate Amino Transf (AST/SGOT) 23, Alanine Aminotransferase (ALT/SGPT) 23, Alkaline Phosphatase 172H, C-Reactive Protein, Quantitative 5.81H, Total Protein 6.3L, Albumin 3.3, Albumin/Globulin Ratio 1.1 CBC/BMP Laboratory Tests 06/14/20 23:53 06/15/20 10:20 Discharge Medications Scheduled Acetaminophen/Diphenhydramine (Acetaminophen Pm Caplet) 1 Each Tablet, 2 TAB PO QHS, (Reported) Atorvastatin Calcium (Atorvastatin Calcium) 20 Mg Tablet, 20 MG PO QHS, (Reported) Calcitriol (Calcitriol) 0.25 Mcg Capsule, 0.25 MCG PO 3XW, (Reported) FRIDAY, FRIDAY AND FRIDAY Calcium Carbonate/Vitamin D3 (Calcium 600-Vit D3 800 Tablet) 1 Each Tablet, 1 TAB PO QHS, (Reported) Carvedilol (Carvedilol) 3.125 Mg Tablet, 3.125 MG PO BID, (Reported) Cholecalciferol (Vitamin D3) (Vitamin D3) 100 Mcg (4000 Unit) Capsule, 100 MCG PO DAILY, (Reported) Clopidogrel Bisulfate (Clopidogrel) 75 Mg Tablet, 75 MG PO DAILY, (Reported) Collagenase Clostridium Hist. (Santyl) 30 Gm Oint...g., 1 DOSE TOP DAILY, (Reported) APPLIES TO RIGHT TOE ULCER Docusate Sodium (Docusate Sodium) 100 Mg Capsule, 100 MG PO BID, (Reported) Duloxetine Hcl (Duloxetine HCl) 60 Mg Capsule.dr, 60 MG PO QHS, (Reported) Febuxostat (Uloric) 80 Mg Tablet, 80 MG PO Q2D, (Reported) L.acidoph/L.bulg/B.bif/S.therm (Bacid Caplet) 1 Each Tablet, 1 TAB PO QHS, (Reported) Multivitamins (Thera M Plus Tablet) 1 Each Tablet, 1 TAB PO DAILY, (Reported) Naldemedine Tosylate (Symproic) 0.2 Mg Tablet, 0.2 MG PO DAILY, (Reported) Prednisone (Prednisone) 5 Mg Tablet, 5 MG PO DAILY, (Reported) Tiotropium [place] (Spiriva Respimat) 4 Gm Mist.inhal, 2 PUFF INH DAILY, (Reported) Torsemide (Torsemide) 20 Mg Tablet, 40 MG PO DAILY, (Reported) Ubidecarenone (Co Q-10) 100 Mg Capsule, 200 MG PO BID, (Reported) Scheduled PRN Albuterol Sulf (Albuterol Sulfate) 2.5 Mg/3 Ml Vial.neb, 2.5 MG INH Q2H PRN for SHORTNESS OF BREATH, (Reported) Albuterol Sulfate (Proair Hfa) 8.5 Gm Hfa.aer.ad, 2 PUFF INH Q4H PRN for SHORTNESS OF BREATH, (Reported) Alprazolam (Alprazolam) 0.25 Mg Tablet, 0.25 MG PO TID PRN for ANXIETY, (Reported) Baclofen (Baclofen) 10 Mg Tablet, 10 MG PO BID PRN for MUSCLE SPASMS, (Reported) Benzonatate (Benzonatate) 200 Mg Capsule, 200 MG PO Q8H PRN for COUGH, (Reported) Hydromorphone HCl (Dilaudid) 2 Mg Tablet, 2 MG PO TID PRN for PAIN, (Reported) Hydroxyzine HCl (Hydroxyzine HCl) 25 Mg Tablet, 25 MG PO TID PRN for ITCHING, (Reported) Allergies Coded Allergies: aspirin (Verified Allergy, Severe, LIPS SWELL, 03/29/19) Penicillins (Verified Allergy, Intermediate, RASH, 04/15/19) ampicillin (Verified Allergy, Intermediate, HIVES, 03/17/19) ceftriaxone (Verified Allergy, Unknown, UNKNOWN REACTION, 04/09/19) DANIEL MINAYA MD Jun 15, 2020 17:09
[2020-06-15] MEDS ORDERED: VANCOMYCIN HCL 1,000 MG, VIAL MATE ADAPTER 1 EACH in D5W 250 ML IV ONE (18:00)
[2020-06-15] MEDS ORDERED: NALOXONE INJ 0.4MG/1ML VIAL (J2310 PER 1MG) IV STA (18:12)
[2020-06-15] MEDS ORDERED: NALOXONE INJ 0.4MG/1ML VIAL (J2310 PER 1MG) As Ordered ONE (18:14)
[2020-06-15 18:24] VITALS: BP 123/67
[2020-06-15] MEDS ORDERED: VANCOMYCIN HCL 750 MG, VIAL MATE ADAPTER 1 EACH in D5W 250 ML IV ONE (19:00)
[2020-06-15] MEDS ORDERED: ACETAMINOPHEN *IV* 1,000 MG in IV 1 EA IV ONE (19:15)
[2020-06-15] MEDS ORDERED: tiZANidine 4 MG TAB PO ONE (19:45)
[2020-06-15 20:00] VITALS: BP 98/68
[2020-06-15] MEDS ORDERED: DULoxetine 30 MG CAP (CYMBALTA) PO SCH (21:00)
[2020-06-15] MEDS ORDERED: CALCIUM/VITAMIN D 500 MG TAB PO SCH (21:00)
[2020-06-15] MEDS ORDERED: LACTOBACILLUS ACIDOPHILUS CAP (BACID) PO SCH (21:00)
[2020-06-15] MEDS ORDERED: ATORVASTATIN 20 MG TAB PO SCH (21:00)
[2020-06-16] MEDS ORDERED: CALCITRIOL 0.25 MCG CAP (S0169) PO SCH (09:00)
[2020-06-16] MEDS ORDERED: VANCOMYCIN HCL 1,000 MG, VIAL MATE ADAPTER 1 EACH in D5W 250 ML IV SCH (16:00)
[2020-06-16] MEDS ORDERED: **VANCO AFTER HD** MISC XX SCH (16:00)
== END 2020-06-15 22:30 | disposition short-term general hospital (02) ==
LOC: EDBD 22:52 → M ED 22:52 → M ED INP 06-15 01:29 → M MS5PR 06-15 08:25
PROVIDERS: ADMIT Student in an Organized Health Care Education/Training Program; ATTEND Internal Medicine
DX: M25.552 Pain in left hip (principal); D72.829 Elevated white blood cell count, unspecified; M51.36 Other intervertebral disc degeneration, lumbar region; M48.061 Spinal stenosis, lumbar region without neurogenic claudication; S72.002G Fracture of unspecified part of neck of left femur, subsequent encounter for closed fracture with delayed healing; X58.XXXD Exposure to other specified factors, subsequent encounter; M87.152 Osteonecrosis due to drugs, left femur; T38.0X5A Adverse effect of glucocorticoids and synthetic analogues, initial encounter; N18.6 End stage renal disease; Z99.2 Dependence on renal dialysis; R53.83 Other fatigue; I50.30 Unspecified diastolic (congestive) heart failure; I25.10 Atherosclerotic heart disease of native coronary artery without angina pectoris; G47.33 Obstructive sleep apnea (adult) (pediatric); E11.22 Type 2 diabetes mellitus with diabetic chronic kidney disease; I73.9 Peripheral vascular disease, unspecified; I13.2 Hypertensive heart and chronic kidney disease with heart failure and with stage 5 chronic kidney disease, or end stage renal disease; M10.9 Gout, unspecified; E78.5 Hyperlipidemia, unspecified; J98.4 Other disorders of lung; E11.622 Type 2 diabetes mellitus with other skin ulcer; J44.9 Chronic obstructive pulmonary disease, unspecified; I25.2 Old myocardial infarction; I48.91 Unspecified atrial fibrillation; L97.929 Non-pressure chronic ulcer of unspecified part of left lower leg with unspecified severity; L97.919 Non-pressure chronic ulcer of unspecified part of right lower leg with unspecified severity; Z79.899 Other long term (current) drug therapy; Z79.02 Long term (current) use of antithrombotics/antiplatelets; Z79.52 Long term (current) use of systemic steroids; Z88.0 Allergy status to penicillin; Z88.1 Allergy status to other antibiotic agents; Z88.6 Allergy status to analgesic agent
CPT/HCPCS: 36415; 72131; 73700; 80048; 80053; 85025; 85027; 85652; 86140; 96372; 96374; 96375; 96376; 99284; G0378; J0131; J1170; J1644; J2310; J3370

== ENCOUNTER 2020-06-23 10:47 | Inpatient (IN) | payer MEDICARE, OTHER ==
[~2020-06-23] VITALS: Ht 167.6 cm; Wt 84.0 kg
[~2020-06-23 10:47] MED LIST changes: +CO Q100C2 PO; +DILA2TAB6 PO; +SANT250O8 TOP
[2020-06-23] MEDS ORDERED: ONDANSETRON 4MG/2ML VIAL IV ONE (11:15)
[2020-06-23] MEDS: HYDROMORPHONE HCL 0.5 MG/ 0.5 ML SYRINGE (J1170 PER 1) IV PRN ×2 (11:29→18:07)
[2020-06-23 12:03] LABS: BASO % 0.2 % (0.0-1.0); EOS # 0.3 10^3/uL (0.0-0.5); EOS % 2.9 % (0.0-3.0); HEMATOCRIT 30.9 % (42.0-52.0); HEMOGLOBIN 10.1 g/dl (13.5-17.5); LYMPH # 0.8 10^3/uL (1.5-5.0); LYMPH % 7.2 % (24.0-44.0); MEAN CORPUSCULAR HEMOGLOBIN 33.9 pg (27.0-33.0); MEAN CORPUSCULAR HGB CONC 32.7 g/dl (32.0-36.5); MEAN CORPUSCULAR VOLUME 103.7 fl (80.0-96.0); MONO % 9.9 % (0.0-5.0); NEUTROPHILS # 8.2 10^3/uL (1.5-8.5); PLATELET COUNT, AUTOMATED 221 10^3/uL (150-450); RED BLOOD COUNT 2.98 10^6/uL (4.30-6.10); WHITE BLOOD COUNT 10.4 10^3/uL (4.0-10.0)
[2020-06-23 12:15] LABS: INR 0.98; PROTHROMBIN TIME 13.2 SECONDS (11.8-14.0)
[2020-06-23] MEDS ORDERED: PEGPOW PO (12:25)
[2020-06-23] MEDS ORDERED: PANT-23 PO (12:25)
[2020-06-23 12:30] LABS: BILIRUBIN,DIRECT 0.2 MG/DL (0.0-0.2); BILIRUBIN,TOTAL 0.6 MG/DL (0.2-1.0); CALCIUM LEVEL 8.9 MG/DL (8.8-10.2); CREATININE FOR GFR 3.03 MG/DL (0.70-1.30); GLOMERULAR FILTRATION RATE 21.5 (>42); POTASSIUM SERUM 4.4 MEQ/L (3.5-5.1); TOTAL PROTEIN 5.9 GM/DL (6.4-8.2)
[2020-06-23] MEDS ORDERED: GABA-1171 PO (12:33)
[2020-06-23] MEDS ORDERED: PEG1POW PO (12:33)
[2020-06-23] MEDS ORDERED: METH1TAB40 PO (12:37)
[2020-06-23] MEDS ORDERED: ACET-683 PO (12:37)
[2020-06-23] MEDS ORDERED: HYDR4TAB PO (12:37)
--- NOTE | 2020-06-23 15:56 | HPEPDOC ---
[facility] Medical History & Physical Date of Admission Jun 23, 2020 Date of Service: Jun 23, 2020 Attending Physician: DANIEL MINAYA MD History and Physical CHIEF COMPLAINT: Hip pain HISTORY OF PRESENT ILLNESS: As per medical records: 75 year old male with recent L. hip fracture 2/2 AVN d/t chronic steroid use in March (transferred to [facility] but surgery is deferred and was sent to ARU for Rehab in April prior to discharge home), multiple recurrent admissions with pain complaints or lethargy from medications, chronic HFpEF, CAD, Restrictive lung disease, ABELARDO on CPAP, gout, DM, Bladder cancer, b/l leg ulcers presents to the ER today with complaints of intractable pain. He has been following with pain management outpatient for a period of time, reportedly medication was changed and has been ineffective in controlling patient's pain. He was previously on morphine 15 mg PO BID daily and had reportedly stopped working and changed to dilaudid at a lower dose than his morphine equivalent? Of note, He has had severe difficult to control pain even prior to this hip fracture. Apart from the pain, he denies any other complaints including any chest pain, SOB, fever or chills. Recent admission, pt had CT L spine and hip given extent of his uncontrolled pain (see below). Transferred to [facility] for further evaluation of the hip given the intractable pain and complexity of the needed surgery. Given ? septic arthritis with ESR 65, leukocytosis, bld cx ordered. s/p aspirati on at [facility] to r/o septic arthritis. Pt d/c to rehab, completed, went home, now comes back as unable to care for him. Pt requesting rehab placement. Pain controlled in ED after dilaudid IV. PAST MEDICAL HISTORY: As per HPI PAST SURGICAL HISTORY: Spinal cord stimulator SOCIAL HISTORY: Denies tobacco, alcohol or drugs. FAMILY HISTORY: Mother-- DM ALLERGIES: Please see below. REVIEW OF SYSTEMS: HEENT: Denies sore throat/headache CARDIOVASCULAR: Denies chest pain/palpitations RESPIRATORY: Denies shortness of breath/cough GASTROINTESTINAL: denies nausea/vomiting GENITOURINARY: Denies dysuria/urinary urgency. MUSCULOSKELETAL: Denies myalgias/arthralgias NEUROLOGICAL: Denies any focal weakness HOME MEDICATIONS: Please see below. PHYSICAL EXAMINATION: Vitals: (see below) General: No acute distress, laying comfortably in bed. HEENT: Moist mucous membranes. Neck: No JVD or lymphadenopathy Cardiac: RRR, No murmurs Pulm: Clear to auscultation b/l. No wheezing, rhonchi Abd: NT/ND + BS Ext: Trace to 1+ Edema BLE. No cyanosis. Left hip pain with movement. Left shoulder pain with movement. Trace to 1+ edema LUE. LABORATORY DATA: See below. ASSESSMENT/PLAN: 1. L. hip, acute on chronic - pain control - eval by [facility], s/p biopsy/cx r/o septic arthritis completed at [facility] - Needs rehab/placement. 2. ESRD on HD - MWF. If patient stays until Friday, will need nephro consultation for HD. - c/w home meds. - nephro consult 3. HFpEF - c/w torsemide Monitor I/O. 4. CAD - c/w statin, Plavix and BB. 5. ABELARDO - noncompliant with CPAP 6. HLD - statin 7. NIDDM - diet controlled. - consistent carbohydrate diet. - ISS. 8. Gout - uloric DVT ppx: HSQ Vital Signs Vital Signs Date Time Temp Pulse Resp B/P (MAP) Pulse Ox O2 Delivery O2 Flow Rate FiO2 06/23/20 13:30 97 20 140/65 (90) 97 Room Air 06/23/20 11:00 96.9 Laboratory Data Labs 24H Laboratory Tests 2 06/23/20 11:27: Immature Granulocyte % (Auto) 1.8, Neutrophils (%) (Auto) 78.0H, Lymphocytes (%) (Auto) 7.2L, Monocytes (%) (Auto) 9.9H, Eosinophils (%) (Auto) 2.9, Basophils (%) (Auto) 0.2, Neutrophils # (Auto) 8.2, Lymphocytes # (Auto) 0.8L, Monocytes # (Auto) 1.0H, Eosinophils # (Auto) 0.3, Basophils # (Auto) 0.0, Nucleated Red Blood Cells % (auto) 0.0, Prothrombin Time 13.2, Prothromb Time International Ratio 0.98, Anion Gap 9, Glomerular Filtration Rate 21.5L, Calcium Level 8.9, Total Bilirubin 0.6, Direct Bilirubin 0.2, Aspartate Amino Transf (AST/SGOT) 26, Alanine Aminotransferase (ALT/SGPT) 19, Alkaline Phosphatase 163H, Total Protein 5.9L, Albumin 3.0L, Albumin/Globulin Ratio 1.0 06/23/20 11:45: Urine Color YELLOW, Urine Appearance CLEAR, Urine pH 5.0, Urine Specific [place] 1.008, Urine Protein NEGATIVE, Urine Glucose (UA) NEGATIVE, Urine Ketones NEGATIVE, Urine Blood NEGATIVE, Urine Nitrite NEGATIVE, Urine Bilirubin NEGATIVE, Urine Urobilinogen 0.2, Urine Leukocyte Esterase NEGATIVE, Urine WBC (Auto) 2, Urine RBC (Auto) 2, Urine Hyaline Casts (Auto) 4, Urine Bacteria (Auto) NEGATIVE, Urine Squamous Epithelial Cells 0, Urine Amorphous Sediment SMALLH, Urine Mucus (Auto) SMALL, Urine Sperm (Auto) CBC/BMP Laboratory Tests 06/23/20 11:27 Home Medications Scheduled Acetaminophen/Diphenhydramine (Acetaminophen Pm Caplet) 1 Each Tablet, 2 TAB PO QHS Atorvastatin Calcium (Atorvastatin Calcium) 20 Mg Tablet, 20 MG PO QHS Calcitriol (Calcitriol) 0.25 Mcg Capsule, 0.25 MCG PO 3XW FRIDAY, FRIDAY AND FRIDAY WITH DIALYSIS Calcium Carbonate/Vitamin D3 (Calcium 600-Vit D3 800 Tablet) 1 Each Tablet, 1 TAB PO QHS Carvedilol (Carvedilol) 3.125 Mg Tablet, 3.125 MG PO BID Cholecalciferol (Vitamin D3) (Vitamin D3) 100 Mcg (4000 Unit) Capsule, 100 MCG PO DAILY Clopidogrel Bisulfate (Clopidogrel) 75 Mg Tablet, 75 MG PO DAILY Collagenase Clostridium Hist. (Santyl) 30 Gm Oint...g., 1 DOSE TOP DAILY APPLIES TO RIGHT TOE ULCER Duloxetine Hcl (Duloxetine HCl) 60 Mg Capsule.dr, 60 MG PO QHS Febuxostat (Uloric) 80 Mg Tablet, 80 MG PO Q2D Gabapentin (Gabapentin) 100 Mg Capsule, 100 MG PO 3XW TAKES Friday ON DIALYSIS DAYS Methocarbamol (Methocarbamol) 500 Mg Tablet, 500 MG PO BID Multivitamins (Thera M Plus Tablet) 1 Each Tablet, 1 TAB PO DAILY Naldemedine Tosylate (Symproic) 0.2 Mg Tablet, 0.2 MG PO DAILY Pantoprazole Sodium (Pantoprazole Sodium) 40 Mg Tablet.dr, 40 MG PO DAILY Prednisone (Prednisone) 5 Mg Tablet, 5 MG PO DAILY Tiotropium [place] (Spiriva Respimat) 4 Gm Mist.inhal, 2 PUFF INH DAILY Torsemide (Torsemide) 20 Mg Tablet, 20 MG PO BID Ubidecarenone (Co Q-10) 100 Mg Capsule, 200 MG PO BID Scheduled PRN Acetaminophen (Acetaminophen) 500 Mg Tablet, 500 MG PO Q6H PRN for PAIN Albuterol Sulf (Albuterol Sulfate) 2.5 Mg/3 Ml Vial.neb, 2.5 MG INH Q2H PRN for SHORTNESS OF BREATH Albuterol Sulfate (Proair Hfa) 8.5 Gm Hfa.aer.ad, 2 PUFF INH Q4H PRN for SHORTNESS OF BREATH Alprazolam (Alprazolam) 0.25 Mg Tablet, 0.25 MG PO TID PRN for ANXIETY Benzonatate (Benzonatate) 200 Mg Capsule, 200 MG PO Q8H PRN for COUGH Hydromorphone HCl (Hydromorphone HCl) 4 Mg Tablet, 4 MG PO TID PRN for PAIN Polyethylene Glycol 3350 (Polyethylene Glycol 3350) 17 Gm Powd.pack, 1 DOSE PO DAILY PRN for CONSTIPATION Allergies Coded Allergies: aspirin (Verified Allergy, Severe, LIPS SWELL, 03/29/19) Penicillins (Verified Allergy, Intermediate, RASH, 04/15/19) ampicillin (Verified Allergy, Intermediate, HIVES, 03/17/19) ceftriaxone (Verified Allergy, Unknown, UNKNOWN REACTION, 04/09/19) A-FIB/CHADSVASC A-FIB History Current/History of A-Fib/PAF?: No DANIEL MINAYA MD Jun 23, 2020 15:56
[2020-06-23] MEDS ORDERED: ALBUTEROL 90 MCG/ACT 8GM HFA INHALER INH PRN (16:00)
[2020-06-23] MEDS ORDERED: BENZONATATE 100 MG CAP PO PRN (16:00)
[2020-06-23] MEDS ORDERED: MIRALAX *UNIT DOSE* 17GM PACKET PO PRN (16:00)
[2020-06-23 17:45] VITALS: BP 129/79
--- NOTE | 2020-06-23 17:51 | REPVR ---
PROCEDURE INFORMATION: Exam: US Duplex Lower Extremity Veins, Bilateral Exam date and time: 06/23/2020 5:39 PM Age: 75 years old Clinical indication: Swelling (edema) of limb; Lower extremity, bilateral; Additional info: Swelling, R/O dvt TECHNIQUE: Imaging protocol: Real-time duplex ultrasound of the extremities with 2-D castellano scale, color Doppler flow and spectral waveform analysis with image documentation. Complete exam focused on the bilateral lower extremity veins. COMPARISON: US VEIN MAPPING PRE AVF 03/08/2019 10:49 AM FINDINGS: Right deep veins: Unremarkable. The common femoral, femoral, proximal profunda femoral and popliteal veins are patent without thrombus. Normal Doppler waveforms. Normal compressibility and/or augmentation response. Right superficial veins: Saphenofemoral junction is patent without thrombus. Left deep veins: Unremarkable. The common femoral, femoral, proximal profunda femoral and popliteal veins are patent without thrombus. Normal Doppler waveforms. Normal compressibility and/or augmentation response. Left superficial veins: Saphenofemoral junction is patent without thrombus. Soft tissues: Soft tissue edema. IMPRESSION: No evidence of deep vein thrombosis. Electronically signed by: Jagdeep Quiroz On 06/23/2020 17:50:20 PM
--- NOTE | 2020-06-23 18:05 | REPVR ---
PROCEDURE INFORMATION: Exam: US Duplex Left Upper Extremity Veins, Limited Exam date and time: 06/23/2020 5:39 PM Age: 75 years old Clinical indication: Swelling (edema) of limb; Upper extremity, left; Prior surgery; Surgery date: 6+ months; Surgery type: Brach-ceph avf; Additional info: Swelling, R/O dvt, TECHNIQUE: Imaging protocol: Real-time Duplex ultrasound of the Left Upper Extremity with 2-D castellano scale, color Doppler flow and spectral waveform analysis with image documentation. Limited exam focused on the left upper extremity veins. COMPARISON: US DUPLEX EXT UPPER VEINS UNILATE 10/04/2019 9:09 AM FINDINGS: Left deep veins: Unremarkable. Axillary and brachial veins are patent throughout without thrombus. Normal Doppler waveforms. Normal compressibility and/or augmentation response. Visualized internal jugular and subclavian veins are patent. Left superficial veins: Patent brachial artery to cephalic vein fistula with dilatation of the cephalic vein, and with arterialized venous waveform. Visualized cephalic and basilic veins are otherwise patent without thrombus. Soft tissues: Unremarkable. IMPRESSION: No evidence of deep vein thrombosis. Patent arteriovenous fistula. Electronically signed by: Jagdeep Quiroz On 06/23/2020 18:04:50 PM
[2020-06-23] MEDS: TORSEMIDE 20 MG TAB PO SCH (18:32)
[2020-06-23] MEDS: HYDROmorphone (DILAUDID) 4 MG TAB PO PRN (18:33)
[2020-06-23] MEDS: ALPRAZolam 0.25 MG TAB PO PRN (20:04)
[2020-06-23] MEDS: methocarbamoL 500 MG TAB PO SCH (20:04)
[2020-06-23] MEDS: ATORVASTATIN 20 MG TAB PO SCH (20:04)
[2020-06-23] MEDS: DULoxetine 30 MG CAP (CYMBALTA) PO SCH (20:04)
[2020-06-23] MEDS: CARVedilol 3.125 MG TAB PO SCH (20:05)
[2020-06-23] MEDS: ACETAMINOPHEN 500 MG TAB PO PRN (20:06)
[2020-06-23] MEDS: HEPARIN SOD (PORCINE) 5000UNITS/ML 1ML VIAL/SYRINGE SC SCH (21:16)
[2020-06-23 22:00] VITALS: BP 134/79
[2020-06-24 02:00] VITALS: BP 113/68
[2020-06-24] MEDS: HEPARIN SOD (PORCINE) 5000UNITS/ML 1ML VIAL/SYRINGE SC SCH ×3 (05:39→21:02)
[2020-06-24] MEDS: HYDROmorphone (DILAUDID) 4 MG TAB PO PRN (05:40)
[2020-06-24 06:00] VITALS: BP 141/68
[2020-06-24 06:26] LABS: HEMATOCRIT 31.3 % (42.0-52.0); MEAN CORPUSCULAR HEMOGLOBIN 33.3 pg (27.0-33.0); MEAN CORPUSCULAR HGB CONC 31.9 g/dl (32.0-36.5); MEAN CORPUSCULAR VOLUME 104.3 fl (80.0-96.0); PLATELET COUNT, AUTOMATED 240 10^3/uL (150-450); WHITE BLOOD COUNT 9.4 10^3/uL (4.0-10.0)
[2020-06-24 06:51] LABS: CREATININE FOR GFR 3.06 MG/DL (0.70-1.30); GLOMERULAR FILTRATION RATE 21.3 (>42); POTASSIUM SERUM 3.6 MEQ/L (3.5-5.1)
[2020-06-24] MEDS: ALPRAZolam 0.25 MG TAB PO PRN (08:43)
[2020-06-24] MEDS: PANTOPRAZOLE 40MG TAB (PROTONIX) PO SCH (08:45)
[2020-06-24] MEDS: methocarbamoL 500 MG TAB PO SCH ×2 (08:45→21:01)
[2020-06-24] MEDS: MULTIVITAMINS/MINERALS THERAP 1 TAB PO SCH (08:46)
[2020-06-24] MEDS: predniSONE 5 MG TAB PO SCH (08:46)
[2020-06-24] MEDS: TORSEMIDE 20 MG TAB PO SCH ×2 (08:46→18:38)
[2020-06-24] MEDS: CARVedilol 3.125 MG TAB PO SCH ×2 (08:46→21:23)
[2020-06-24] MEDS: CLOPIDOGREL 75 MG TAB PO SCH (08:46)
[2020-06-24] MEDS: SANTYL OINT 30GM TOP SCH (08:47)
[2020-06-24] MEDS: FEBUXOSTAT 40 MG TABLET (ULORIC) PO SCH (09:07)
[2020-06-24] MEDS ORDERED: DARBEPOETIN 200MCG/0.4ML *DIALYSIS* SYRINGE (J0882 PER 1MCG) IV SCH (09:45)
[2020-06-24 10:00] VITALS: BP 153/81
[2020-06-24] MEDS ORDERED: LIDOCAINE 1% SDV 5ML VIAL SQ ONE (11:00)
--- NOTE | 2020-06-24 11:49 | IPNPDOC ---
Text Note Date of Service The patient was seen on 06/24/20. NOTE Subjective: Pt denies CP/SOB/palpitations. No N/V/abd pain. PHYSICAL EXAMINATION: Vitals: (see below) General: No acute distress, laying comfortably in bed. HEENT: Moist mucous membranes. Neck: No JVD or lymphadenopathy Cardiac: RRR, No murmurs Pulm: Clear to auscultation b/l. No wheezing, rhonchi Abd: NT/ND + BS Ext: Trace to 1+ Edema BLE. No cyanosis. Left hip pain with movement. Left shoulder pain with movement. Trace to 1+ edema LUE. LABORATORY DATA: See below. ASSESSMENT/PLAN: 1. L. hip, acute on chronic. - pain control - eval by [facility], s/p biopsy/cx r/o septic arthritis completed at [facility] - Needs rehab/placement. 2. ESRD on HD - [facility]. If patient stays until Friday, will need nephro consultation for HD. - c/w home meds. - nephro consult 3. HFpEF - c/w torsemide Monitor I/O. 4. CAD - c/w statin, Plavix and BB. 5. ABELARDO - noncompliant with CPAP 6. HLD - statin 7. NIDDM - diet controlled. - consistent carbohydrate diet. - ISS. 8. Gout - uloric 9. H/o chronic rotator cuff tear and dislocation of left shoulder - Obtain Left shoulder/arm/hand x rays given edema, although may be due to inactivity. - U/s Negative for dvt. 10. Swelling ble - u/s negative for dvt. DVT ppx: HSQ VS,Fishbone, I+O VS, Fishbone, I+O Laboratory Tests 06/24/20 06:05 Vital Signs Date Time Temp Pulse Resp B/P (MAP) Pulse Ox O2 Delivery O2 Flow Rate FiO2 06/24/20 08:46 86 141/93 06/24/20 06:10 18 06/24/20 06:00 98.7 94 Room Air I&O- Last 24 Hours up to 6 AM 06/24/20 05:59 Intake Total 0 ml Output Total 200 ml Balance -200 ml DANIEL MINAYA MD Jun 24, 2020 11:49
[2020-06-24] MEDS ORDERED: PILL CUTTER 1 EACH XX PRN (14:15)
[2020-06-24 18:00] VITALS: BP 145/81
[2020-06-24] MEDS: TAMSULOSIN 0.4 MG CAP PO SCH (18:37)
[2020-06-24] MEDS: ATORVASTATIN 20 MG TAB PO SCH (21:01)
[2020-06-24] MEDS: DULoxetine 30 MG CAP (CYMBALTA) PO SCH (21:01)
[2020-06-24] MEDS: HYDROMORPHONE HCL 0.5 MG/ 0.5 ML SYRINGE (J1170 PER 1) IV PRN (21:17)
[2020-06-25] MEDS: HYDROmorphone (DILAUDID) 4 MG TAB PO PRN ×3 (01:52→16:39)
[2020-06-25 02:20] VITALS: BP 115/60
[2020-06-25] MEDS: ALPRAZolam 0.25 MG TAB PO PRN (03:47)
[2020-06-25] MEDS: HEPARIN SOD (PORCINE) 5000UNITS/ML 1ML VIAL/SYRINGE SC SCH ×3 (05:57→21:02)
[2020-06-25 06:22] VITALS: BP 110/71
[2020-06-25] MEDS: MULTIVITAMINS/MINERALS THERAP 1 TAB PO SCH (09:37)
[2020-06-25] MEDS: methocarbamoL 500 MG TAB PO SCH ×2 (09:39→21:00)
[2020-06-25] MEDS: CLOPIDOGREL 75 MG TAB PO SCH (09:39)
[2020-06-25] MEDS: PANTOPRAZOLE 40MG TAB (PROTONIX) PO SCH (09:39)
[2020-06-25] MEDS: CARVedilol 3.125 MG TAB PO SCH ×2 (09:39→21:02)
[2020-06-25] MEDS: TORSEMIDE 20 MG TAB PO SCH ×2 (09:40→16:38)
[2020-06-25] MEDS: TAMSULOSIN 0.4 MG CAP PO SCH (09:40)
[2020-06-25] MEDS: SANTYL OINT 30GM TOP SCH (09:40)
[2020-06-25] MEDS: predniSONE 5 MG TAB PO SCH (09:40)
[2020-06-25 10:00] VITALS: BP 116/51
--- NOTE | 2020-06-25 11:02 | IPNPDOC ---
Text Note Date of Service The patient was seen on 06/25/20. NOTE Subjective: Pt denies CP/SOB/palpitations. No N/V/abd pain. Swelling improved after HD yesterday. PHYSICAL EXAMINATION: Vitals: (see below) General: No acute distress, laying comfortably in bed. HEENT: Moist mucous membranes. Neck: No JVD or lymphadenopathy Cardiac: RRR, No murmurs Pulm: Clear to auscultation b/l. No wheezing, rhonchi Abd: NT/ND + BS Ext: Trace Edema BLE. No cyanosis. Left hip pain with movement. Left shoulder pain with movement. Trace edema LUE. Edema improved s/p HD LABORATORY DATA: See below. ASSESSMENT/PLAN: 1. L. hip, acute on chronic. - pain control - eval by [facility], s/p biopsy/cx r/o septic arthritis completed at [facility] - Needs rehab/placement. - Outpt ortho f/u 2. ESRD on HD - MW. If patient stays until Friday, will need nephro consultation for HD. - c/w home meds. - nephro consult 3. HFpEF - c/w torsemide Monitor I/O. 4. CAD - c/w statin, Plavix and BB. 5. ABELARDO - noncompliant with CPAP 6. HLD - statin 7. NIDDM - diet controlled. - consistent carbohydrate diet. - ISS. 8. Gout - uloric 9. H/o chronic rotator cuff tear and dislocation of left shoulder - Obtain Left shoulder/arm/hand x rays pending. edema improving. Elevate LUE while in bed, although may be due to inactivity. - U/s Negative for dvt. - Outpt ortho f/u 10. Swelling ble - u/s negative for dvt. - improved after HD. DVT ppx: HSQ VS,Fishbone, I+O VS, Fishbone, I+O Vital Signs Date Time Temp Pulse Resp B/P (MAP) Pulse Ox O2 Delivery O2 Flow Rate FiO2 06/25/20 09:47 20 Room Air 06/25/20 09:39 105 116/51 06/25/20 06:22 98.7 99 I&O- Last 24 Hours up to 6 AM 06/25/20 06:00 Intake Total 750 ml Output Total 3000 ml Balance -2250 ml DANIEL MINAYA MD Jun 25, 2020 11:02
[2020-06-25 12:00] VITALS: BP 129/61
[2020-06-25] MEDS: DULoxetine 30 MG CAP (CYMBALTA) PO SCH (21:00)
[2020-06-25] MEDS: ACETAMINOPHEN 500 MG TAB PO PRN (21:01)
[2020-06-25] MEDS: ATORVASTATIN 20 MG TAB PO SCH (21:02)
[2020-06-25 22:00] VITALS: BP 103/60
[2020-06-26] MEDS: LIDOCAINE 5% (LIDODERM) PATCH TD SCH ×2 (00:07→20:02)
[2020-06-26] MEDS: HYDROmorphone (DILAUDID) 4 MG TAB PO PRN ×5 (00:08→23:21)
[2020-06-26 02:00] VITALS: BP 102/57
[2020-06-26] MEDS: ALPRAZolam 0.25 MG TAB PO PRN ×2 (02:27→20:02)
[2020-06-26] MEDS: ACETAMINOPHEN 500 MG TAB PO PRN (02:28)
[2020-06-26] MEDS: PANTOPRAZOLE 40MG TAB (PROTONIX) PO SCH (05:31)
[2020-06-26] MEDS: FEBUXOSTAT 40 MG TABLET (ULORIC) PO SCH (05:31)
[2020-06-26] MEDS: TORSEMIDE 20 MG TAB PO SCH ×2 (05:31→16:13)
[2020-06-26] MEDS: HEPARIN SOD (PORCINE) 5000UNITS/ML 1ML VIAL/SYRINGE SC SCH ×3 (05:32→21:06)
[2020-06-26] MEDS: MULTIVITAMINS/MINERALS THERAP 1 TAB PO SCH (05:32)
[2020-06-26] MEDS: predniSONE 5 MG TAB PO SCH (05:32)
[2020-06-26] MEDS: methocarbamoL 500 MG TAB PO SCH ×2 (05:32→20:01)
[2020-06-26] MEDS: TAMSULOSIN 0.4 MG CAP PO SCH (05:32)
[2020-06-26] MEDS: CARVedilol 3.125 MG TAB PO SCH ×2 (05:33→20:02)
[2020-06-26] MEDS: CLOPIDOGREL 75 MG TAB PO SCH (05:33)
[2020-06-26] MEDS: GABAPENTIN 100 MG CAP PO SCH (05:55)
[2020-06-26 06:00] VITALS: BP 127/68
[2020-06-26] MEDS: SANTYL OINT 30GM TOP SCH (08:32)
[2020-06-26 10:43] LABS: BASO % 0.2 % (0.0-1.0); EOS # 0.3 10^3/uL (0.0-0.5); EOS % 3.4 % (0.0-3.0); HEMATOCRIT 30.1 % (42.0-52.0); HEMOGLOBIN 9.7 g/dl (13.5-17.5); LYMPH # 0.8 10^3/uL (1.5-5.0); MEAN CORPUSCULAR HGB CONC 32.2 g/dl (32.0-36.5); MEAN CORPUSCULAR VOLUME 102.4 fl (80.0-96.0); MONO # 0.8 10^3/uL (0.0-0.8); MONO % 9.2 % (0.0-5.0); NEUTROPHILS # 6.4 10^3/uL (1.5-8.5); NEUTROPHILS % 75.4 % (36.0-66.0); PLATELET COUNT, AUTOMATED 221 10^3/uL (150-450); RED BLOOD COUNT 2.94 10^6/uL (4.30-6.10); WHITE BLOOD COUNT 8.5 10^3/uL (4.0-10.0)
[2020-06-26 11:03] LABS: ALBUMIN 2.6 GM/DL (3.2-5.2); CALCIUM LEVEL 8.6 MG/DL (8.8-10.2); CREATININE FOR GFR 3.31 MG/DL (0.70-1.30); GLOMERULAR FILTRATION RATE 19.4 (>42); PHOSPHORUS LEVEL 2.1 MG/DL (2.5-4.9); POTASSIUM SERUM 3.3 MEQ/L (3.5-5.1)
--- NOTE | 2020-06-26 13:12 | IPNPDOC ---
Text Note Date of Service The patient was seen on 06/26/20. NOTE Subjective: Pt had pain in the lef hip overnight. No CP/SOB/palpitation. PHYSICAL EXAMINATION: Vitals: (see below) General: No acute distress, laying comfortably in bed. HEENT: Moist mucous membranes. Neck: No JVD or lymphadenopathy Cardiac: RRR, No murmurs Pulm: Clear to auscultation b/l. No wheezing, rhonchi Abd: NT/ND + BS Ext: Trace Edema BLE. No cyanosis. Left hip pain with movement. Left shoulder pain with movement. Trace edema LUE. Edema improved s/p HD LABORATORY DATA: See below. ASSESSMENT/PLAN: 1. L. hip, acute on chronic. - pain control - eval by [facility], s/p biopsy/cx r/o septic arthritis completed at [facility] - Likely needs rehab/placement/ vs 24hr care as has difficulty taking care of him - Outpt ortho f/u 2. ESRD on HD - MW. If patient stays until Friday, will need nephro consultation for HD. - c/w home meds. - nephro consult 3. HFpEF - c/w torsemide Monitor I/O. 4. CAD - c/w statin, Plavix and BB. 5. ABELARDO - noncompliant with CPAP 6. HLD - statin 7. NIDDM - diet controlled. - consistent carbohydrate diet. - ISS. 8. Gout - uloric 9. H/o chronic rotator cuff tear and dislocation of left shoulder - Obtain Left shoulder/arm/hand x rays pending. edema improving. Elevate LUE while in bed, although may be due to inactivity. - U/s Negative for dvt. - Outpt ortho f/u 10. Swelling ble - u/s negative for dvt. - improved after HD. DVT ppx: HSQ Pending PT. VS,Fishbone, I+O VS, Fishbone, I+O Laboratory Tests 06/26/20 08:20 Vital Signs Date Time Temp Pulse Resp B/P (MAP) Pulse Ox O2 Delivery O2 Flow Rate FiO2 06/26/20 11:08 20 06/26/20 06:00 97.5 103 127/68 (87) 97 Room Air I&O- Last 24 Hours up to 6 AM 06/26/20 05:59 Intake Total 300 ml Output Total 0 ml Balance 300 ml DANIEL MINAYA MD Jun 26, 2020 13:12
[2020-06-26 14:00] VITALS: BP 122/66
[2020-06-26] MEDS ORDERED: POTASSIUM CHLORIDE 10 MEQ SR TABLET PO ONE (14:45)
[2020-06-26] MEDS: **NOTE PATIENT COMMENT** MISC XX SCH (15:00)
[2020-06-26 18:00] VITALS: BP 138/56
[2020-06-26] MEDS: DULoxetine 30 MG CAP (CYMBALTA) PO SCH (20:01)
[2020-06-26] MEDS: ATORVASTATIN 20 MG TAB PO SCH (20:01)
[2020-06-26 22:00] VITALS: BP 147/61
[2020-06-27] MEDS: ACETAMINOPHEN 500 MG TAB PO PRN (01:04)
[2020-06-27 02:00] VITALS: BP 142/62
[2020-06-27] MEDS: HYDROmorphone 2 MG TAB PO PRN ×3 (05:29→18:44)
[2020-06-27] MEDS: HEPARIN SOD (PORCINE) 5000UNITS/ML 1ML VIAL/SYRINGE SC SCH ×3 (05:30→21:12)
[2020-06-27 06:00] VITALS: BP 134/64
[2020-06-27] MEDS: PANTOPRAZOLE 40MG TAB (PROTONIX) PO SCH (08:59)
[2020-06-27] MEDS: TAMSULOSIN 0.4 MG CAP PO SCH (08:59)
[2020-06-27] MEDS: TORSEMIDE 20 MG TAB PO SCH ×2 (08:59→17:08)
[2020-06-27] MEDS: methocarbamoL 500 MG TAB PO SCH ×2 (08:59→21:11)
[2020-06-27] MEDS: predniSONE 5 MG TAB PO SCH (08:59)
[2020-06-27] MEDS: CARVedilol 3.125 MG TAB PO SCH ×3 (09:00→21:13)
[2020-06-27] MEDS: MULTIVITAMINS/MINERALS THERAP 1 TAB PO SCH (09:03)
[2020-06-27] MEDS: CLOPIDOGREL 75 MG TAB PO SCH (09:03)
[2020-06-27] MEDS: SANTYL OINT 30GM TOP SCH (09:04)
[2020-06-27] MEDS: **NOTE PATIENT COMMENT** MISC XX SCH (09:58)
[2020-06-27 10:00] VITALS: BP 113/55
[2020-06-27 14:00] VITALS: BP 143/64
--- NOTE | 2020-06-27 15:00 | IPNPDOC ---
Date Seen The patient was seen on 06/27/20. Progress Note Hospitalist progress note dictated job #[id number] Assessment: L. hip, acute on chronic. ESRD on HD MWF HFpEF CAD ABELARDO NIDDM Gout chronic rotator cuff tear and dislocation of left shoulder poor iv access plan: await rehab placement. pt refused peripheral iv.nephrology consulted for dialysis needs. pain better controlled on po dilaudid. VS, I&O, 24H, Fishbone Vital Signs/I&O Vital Signs Date Time Temp Pulse Resp B/P (MAP) Pulse Ox O2 Delivery O2 Flow Rate FiO2 06/27/20 12:30 17 06/27/20 10:00 98.5 94 113/55 (74) 96 Room Air I&O- Last 24 Hours up to 6 AM 06/27/20 06:00 Intake Total 1720 ml Output Total 2000 ml Balance -280 ml ROSY YEUNG MD Jun 27, 2020 14:58
--- NOTE | 2020-06-27 15:22 | IPN ---
DATE: 06/26/2020 SUBJECTIVE: Patient was seen and examined at the bedside today morning during hemodialysis procedure. He is tolerating the hemodialysis procedure well, however, he does report persistent left-sided hip pain. Patient is slightly more awake and alert today as compared with yesterday. OBJECTIVE: Vital signs: Temperature 97.5 degrees Fahrenheit, blood pressure 127/68, pulse 103, respiratory rate 20, saturating 97% on room air. Intake and output: There is no urine output recorded. Weight in the bed scale is 86 kg. PHYSICAL EXAMINATION: General: Patient is awake, alert, oriented x2, laying in bed getting hemodialysis done. Head and neck: Extraocular muscles intact. Pupils equally round and reactive to light. Mucous membranes are moist. Neck is supple. There is no JVD. Cardiovascular: S1, S2, regular rate. 2+ edema of the bilateral lower extremities. Respiratory: Chest is clear to auscultation bilaterally. Bilateral equal air entry. No rales or rhonchi. Abdomen: Soft, positive bowel sounds, nontender, no organomegaly. Musculoskeletal: Decreased range of movement of the left hip because of fracture. Left upper arm AV fistula is being used for dialysis. COMPENSATION PROGRAMS MANAGER: No focal deficits. Power is 5/5 in bilateral upper extremities. LABORATORY REVIEW: CBC showed WBC 8.5, hemoglobin 9.7, platelets 221,000. BMP showed sodium 136, potassium 3.3, chloride 101, bicarb 27, BUN 26, creatinine 3.3. Albumin 2.6. CURRENT INPATIENT MEDICATIONS: Patients medications were all reviewed by myself. There is no significant change in the medications today as compared with yesterday. ASSESSMENT AND PLAN: 1. End-stage renal disease: Patient is being dialyzed according to his regular schedule. Ultrafiltration goal is 2 liters as tolerated by his blood pressure. 2. Anemia and end-stage renal disease: Hemoglobin level is slightly suboptimal. He is already on Aranesp with dialysis. Continue current dose. 3. Chronic diastolic congestive heart failure: Continue current dose of Torsemide. The rest of the volume status is being optimized with dialysis. 4. Hypokalemia: Patient is being dialyzed with a 3K bath. He will be given a dose of potassium today after dialysis. 5. Left hip fracture: Patient is getting physical therapy, and getting pain optimization. Surgery is still pending. Patient was evaluated by orthopedic surgery group in [place]. [facility]
[2020-06-27 18:00] VITALS: BP 125/51
[2020-06-27] MEDS: DULoxetine 30 MG CAP (CYMBALTA) PO SCH (21:11)
[2020-06-27] MEDS: ATORVASTATIN 20 MG TAB PO SCH (21:11)
[2020-06-27] MEDS: LIDOCAINE 5% (LIDODERM) PATCH TD SCH (21:13)
[2020-06-27] MEDS: ALPRAZolam 0.25 MG TAB PO PRN (21:13)
[2020-06-27 22:00] VITALS: BP 145/77
[2020-06-28] MEDS: HYDROmorphone 2 MG TAB PO PRN ×4 (01:32→21:10)
[2020-06-28 02:00] VITALS: BP 147/76
[2020-06-28] MEDS: ACETAMINOPHEN 500 MG TAB PO PRN (03:12)
[2020-06-28 06:00] VITALS: BP 145/67
[2020-06-28] MEDS: CLOPIDOGREL 75 MG TAB PO SCH (06:35)
[2020-06-28] MEDS: methocarbamoL 500 MG TAB PO SCH ×2 (06:35→21:09)
[2020-06-28] MEDS: PANTOPRAZOLE 40MG TAB (PROTONIX) PO SCH (06:35)
[2020-06-28] MEDS: MULTIVITAMINS/MINERALS THERAP 1 TAB PO SCH (06:35)
[2020-06-28] MEDS: GABAPENTIN 100 MG CAP PO SCH (06:35)
[2020-06-28] MEDS: HEPARIN SOD (PORCINE) 5000UNITS/ML 1ML VIAL/SYRINGE SC SCH ×3 (06:35→21:09)
[2020-06-28] MEDS: TAMSULOSIN 0.4 MG CAP PO SCH (06:36)
[2020-06-28] MEDS: TORSEMIDE 20 MG TAB PO SCH ×2 (06:36→16:28)
[2020-06-28] MEDS: predniSONE 5 MG TAB PO SCH (06:36)
[2020-06-28] MEDS: CARVedilol 3.125 MG TAB PO SCH ×2 (06:36→20:58)
[2020-06-28] MEDS: FEBUXOSTAT 40 MG TABLET (ULORIC) PO SCH (06:37)
[2020-06-28] MEDS: SANTYL OINT 30GM TOP SCH (07:38)
[2020-06-28] MEDS: **NOTE PATIENT COMMENT** MISC XX SCH (09:00)
--- NOTE | 2020-06-28 09:25 | IPN ---
DATE: 06/27/2020 SUBJECTIVE: Patient was seen and examined at the bedside today morning. He still reports a moderate amount of pain in the left hip. Otherwise, he denies any active complaints. He was dialyzed yesterday, 2 liters of fluid was removed, and he tolerated the hemodialysis procedure well. OBJECTIVE: Vital signs: Temperature 98.5 degrees Fahrenheit, blood pressure 113/55, pulse 94, respiratory rate 20, saturating 96% on room air. Intake and output: There is no urine output recorded. Ultrafiltration with hemodialysis was 2 liters. Weight in the bed scale was 86 kg yesterday. PHYSICAL EXAMINATION: General: Patient is awake, alert and oriented x3, sitting up in the bed in no apparent distress. Head and neck: Extraocular muscles intact. Pupils equally round and reactive to light. Mucous membranes are moist. Neck is supple. There is no JVD. Cardiovascular: S1, S2, regular rate. 1+ edema of the bilateral lower extremities. Respiratory: Chest is clear to auscultation bilaterally. Bilateral equal air entry. No rales or rhonchi. Abdomen: Soft, positive bowel sounds, nontender, no organomegaly. Musculoskeletal: Decreased range of movement of the left hip because of pain. BOATSWAIN MATE: No focal deficits. Power is 5/5 in bilateral upper extremities. LABORATORY REVIEW: CBC is from yesterday and BMP is also from yesterday. CURRENT INPATIENT MEDICATIONS: Patients medications were all reviewed by myself. There is no significant change in the medications today as compared with yesterday. ASSESSMENT AND PLAN: 1. End-stage renal disease: Patient was dialyzed yesterday. Next hemodialysis will be done tomorrow morning according to his Friday, Friday, Friday schedule. Ultrafiltration goal will be around 2.5 liters as tolerated by his blood pressure. 2. Anemia and end-stage renal disease: Hemoglobin level is 9.7. He has already been started on Aranesp with dialysis. Iron levels are adequate. 3. Hypertension with hypertensive heart disease: Continue current dose of Coreg 3.125 mg p.o. twice a day. Blood pressures are optimized. 4. Chronic diastolic congestive heart failure: Continue current dose of Torsemide 20 mg p.o. twice a day. The rest of the volume status is being optimized with dialysis. 5. Left hip fracture with immobility: Patient is getting physical therapy. Surgery is postponed until patient is medically stable. [facility]
[2020-06-28 09:35] LABS: BASO # 0.1 10^3/uL (0.0-0.2); BASO % 0.7 % (0.0-1.0); EOS # 0.5 10^3/uL (0.0-0.5); EOS % 5.4 % (0.0-3.0); HEMATOCRIT 29.3 % (42.0-52.0); HEMOGLOBIN 9.5 g/dl (13.5-17.5); LYMPH # 1.2 10^3/uL (1.5-5.0); LYMPH % 13.6 % (24.0-44.0); MEAN CORPUSCULAR HEMOGLOBIN 34.1 pg (27.0-33.0); MEAN CORPUSCULAR HGB CONC 32.4 g/dl (32.0-36.5); MONO % 11.3 % (0.0-5.0); NEUTROPHILS # 5.5 10^3/uL (1.5-8.5); NEUTROPHILS % 64.5 % (36.0-66.0); PLATELET COUNT, AUTOMATED 228 10^3/uL (150-450); RED BLOOD COUNT 2.79 10^6/uL (4.30-6.10); WHITE BLOOD COUNT 8.5 10^3/uL (4.0-10.0)
[2020-06-28 10:19] LABS: ALBUMIN 2.7 GM/DL (3.2-5.2); CALCIUM LEVEL 8.5 MG/DL (8.8-10.2); CREATININE FOR GFR 3.22 MG/DL (0.70-1.30); GLOMERULAR FILTRATION RATE 20.1 (>42); PHOSPHORUS LEVEL 1.5 MG/DL (2.5-4.9)
[2020-06-28 14:00] VITALS: BP 148/70
[2020-06-28] MEDS ORDERED: FLUBLOK(EGG FREE)(QUAD)INFLUENZA VACC 0.5ML SYRINGE 18YRS & OLDER IM ONE (16:00)
--- NOTE | 2020-06-28 16:51 | IPNPDOC ---
Text Note Date of Service The patient was seen on 06/28/20. NOTE SUBJECTIVE: Patient was seen and examined today during his dialysis session. He continues to have some left hip pain. No new issues. He believes he will be going to rehab after hospital discharge. OBJECTIVE: PHYSICAL EXAMINATION: VITAL SIGNS: Please see below. GENERAL: Alert, sitting up comfortably in bed, in no acute distress HEENT: NC, AT, moist mucous membranes, no JVD CARDIOVASCULAR: RRR, normal S1 and S2 RESPIRATORY: CTAB, no wheezing, rhonchi, or rales ABDOMINAL: Soft, nontender, nondistended EXTREMITIES: bilateral 1+ pitting edema of the lower extremities ASSESSMENT/PLAN: 75 year old male with ESRD on hemodialysis admitted for left hip fracture with immobility. 1. ESRD on hemodialysis MWF. Hemodialysis session complete today with 2500mL removed. 2. Anemia and end-stage renal disease. Hemoglobin level is stable at 9.5. Continue with Aranesp with dialysis. Iron levels are adequate. 3. Hypertension with hypertensive heart disease. Blood pressure well controlled. Continue current dose of Coreg 3.125 mg twice a day. 4. Chronic diastolic congestive heart failure. Continue current dose of Torsemide 20 mg twice a day. 5. Left hip fracture with immobility. Patient continues with PT/OT. He believes he will be discharged to a rehab facility when medically stable. Thank you for the consultation on this patient, we will continue to follow along. VS,Fishbone, I+O VS, Fishbone, I+O Laboratory Tests 06/28/20 08:44 Vital Signs Date Time Temp Pulse Resp B/P (MAP) Pulse Ox O2 Delivery O2 Flow Rate FiO2 06/28/20 14:30 16 06/28/20 14:00 96.6 102 148/70 (96) 96 Room Air I&O- Last 24 Hours up to 6 AM 06/28/20 06:00 Intake Total 940 ml Output Total 200 ml Balance 740 ml GME ATTESTATION GME ATTESTATION My faculty preceptor for this patient encounter was physically present during the encounter and was fully available. All aspects of the patient interview, examination, medical decision making process, and medical care plan development were reviewed and approved by the faculty preceptor. The faculty preceptor is aware and concurs with the plan as stated in the body of this note and will attest to such by his/her cosignature. ATTENDING NOTE Pt seen during HD. tolerating HD well. ESRD on HD Anemia in ESRD HFpEF Lt Hip fracture UF goal 2.5Kg as tolerated. BREEZY ALEX D.O. Jun 28, 2020 16:51 BUSTER ANN MD Jun 28, 2020 20:33
[2020-06-28] MEDS: [UNRECOGNIZED DRUG - OTHER] TOP SCH (18:35)
[2020-06-28] MEDS: LIDOCAINE 5% (LIDODERM) PATCH TD SCH (21:09)
[2020-06-28] MEDS: ATORVASTATIN 20 MG TAB PO SCH (21:09)
[2020-06-28] MEDS: DULoxetine 30 MG CAP (CYMBALTA) PO SCH (21:09)
[2020-06-28] MEDS: ALPRAZolam 0.25 MG TAB PO PRN (21:09)
[2020-06-28 22:00] VITALS: BP 119/62
--- NOTE | 2020-06-28 23:08 | REPVR ---
PROCEDURE INFORMATION: Exam: XR Chest, 1 View Exam date and time: 06/28/2020 10:57 PM Age: 75 years old Clinical indication: Other: Cp; Additional info: Chest pain per patient TECHNIQUE: Imaging protocol: XR of the chest Views: 1 view. COMPARISON: CR PORTABLE CHEST X-RAY 11/07/2019 2:27 PM FINDINGS: Tubes, catheters and devices: Spinal stimulator device is present. Lungs: Pulmonary vascular/interstitial pattern suggests acute pulmonary edema. No concerning parenchymal lung mass. Pleural space: Probable associated layering pleural effusions. No evidence of pneumothorax. Heart/Mediastinum: Cardiac silhouette is enlarged. Bones/joints: Median sternotomy and coronary bypass changes are present. Osseous structures are unremarkable. Soft tissues: Extra thoracic soft tissues show no asymmetry. IMPRESSION: Mild pulmonary edema with diffuse interstitial infiltrates and layering pleural effusions. Electronically signed by: Patrick Asher On 06/28/2020 23:07:52 PM
[2020-06-28] MEDS: K-PHOS NEUTRAL 250MG TABLET (SOD.PHOSPHATE/POT.PHOSPHATE) PO SCH (23:17)
[2020-06-28 23:27] LABS: CK-MB VALUE MASS < 1.0 NG/ML (<3.6); CPK CREATINE PHOSPHOKINASE 23 U/L (39-308); MB/CK RELATIVE INDEX 4.35 (< OR =4); TROPONIN I 0.02 NG/ML (< 0.10)
[2020-06-29] MEDS: CARVedilol 3.125 MG TAB PO SCH ×3 (00:19→20:20)
[2020-06-29] MEDS: ACETAMINOPHEN 500 MG TAB PO PRN (01:26)
[2020-06-29] MEDS ORDERED: PILL CUTTER 1 EACH XX PRN (01:30)
[2020-06-29] MEDS: HYDROmorphone 2 MG TAB PO PRN ×2 (01:56→09:10)
[2020-06-29 03:31] LABS: CK-MB VALUE MASS 1.1 NG/ML (<3.6); TROPONIN I 0.02 NG/ML (< 0.10)
[2020-06-29] MEDS: ALPRAZolam 0.25 MG TAB PO PRN ×2 (05:23→20:18)
[2020-06-29] MEDS: HEPARIN SOD (PORCINE) 5000UNITS/ML 1ML VIAL/SYRINGE SC SCH ×3 (05:23→21:10)
[2020-06-29 06:00] VITALS: BP 111/73
[2020-06-29] MEDS: methocarbamoL 500 MG TAB PO SCH ×2 (09:11→20:18)
[2020-06-29] MEDS: K-PHOS NEUTRAL 250MG TABLET (SOD.PHOSPHATE/POT.PHOSPHATE) PO SCH ×3 (09:11→20:18)
[2020-06-29] MEDS: TORSEMIDE 20 MG TAB PO SCH ×2 (09:12→16:04)
[2020-06-29] MEDS: CLOPIDOGREL 75 MG TAB PO SCH (09:12)
[2020-06-29] MEDS: predniSONE 5 MG TAB PO SCH (09:12)
[2020-06-29] MEDS: MULTIVITAMINS/MINERALS THERAP 1 TAB PO SCH (09:12)
[2020-06-29] MEDS: TAMSULOSIN 0.4 MG CAP PO SCH (09:12)
[2020-06-29] MEDS: PANTOPRAZOLE 40MG TAB (PROTONIX) PO SCH (09:12)
[2020-06-29] MEDS: SANTYL OINT 30GM TOP SCH (09:16)
[2020-06-29] MEDS: [UNRECOGNIZED DRUG - OTHER] TOP SCH (09:16)
[2020-06-29] MEDS: **NOTE PATIENT COMMENT** MISC XX SCH (09:17)
[2020-06-29 14:00] VITALS: BP 121/66
--- NOTE | 2020-06-29 14:10 | IPNPDOC ---
Date Seen The patient was seen on 06/29/20. Progress Note Hospitalist progress note dictated Addendum: Hip pain/ bilateral rotator cuff injury: per pain mgt, Tatianna Novaer, msir 15mg po bid, dilaudid 4mg [id number] breakthrough pain, colace 100 mg bid. VS, I&O, 24H, Fishbone Vital Signs/I&O Vital Signs Date Time Temp Pulse Resp B/P (MAP) Pulse Ox O2 Delivery O2 Flow Rate FiO2 06/29/20 09:40 18 06/29/20 09:13 93 124/61 06/29/20 06:00 98.2 95 Room Air I&O- Last 24 Hours up to 6 AM 06/29/20 05:59 Intake Total 1200 ml Output Total 2650 ml Balance -1450 ml Laboratory Data 24H LABS Laboratory Tests 2 06/28/20 22:42: Total Creatine Kinase 23L, Creatine Kinase MB < 1.0, Creatine Kinase MB Relative Index 4.35H, Troponin I 0.02 06/29/20 02:54: Total Creatine Kinase 22L, Creatine Kinase MB 1.1, Creatine Kinase MB Relative Index 5.00H, Troponin I 0.02 ROSY YEUNG MD Jun 29, 2020 14:10
[2020-06-29] MEDS: HYDROmorphone (DILAUDID) 4 MG TAB PO PRN (15:11)
[2020-06-29] MEDS: DULoxetine 30 MG CAP (CYMBALTA) PO SCH (20:18)
[2020-06-29] MEDS: ATORVASTATIN 20 MG TAB PO SCH (20:21)
[2020-06-29] MEDS: DOCUSATE SODIUM 100 MG CAP PO SCH (20:21)
[2020-06-29] MEDS: MORPHINE 30 MG TAB **MSIR PO SCH (20:21)
[2020-06-29] MEDS: LIDOCAINE 5% (LIDODERM) PATCH TD SCH (20:22)
[2020-06-29 23:00] VITALS: BP 134/70
[2020-06-30] MEDS: traZODone 50 MG TAB PO PRN (00:21)
[2020-06-30] MEDS: HYDROmorphone (DILAUDID) 4 MG TAB PO PRN ×3 (00:22→22:13)
[2020-06-30 06:00] VITALS: BP 142/78
[2020-06-30] MEDS: MORPHINE 30 MG TAB **MSIR PO SCH ×2 (06:34→21:21)
[2020-06-30] MEDS: MULTIVITAMINS/MINERALS THERAP 1 TAB PO SCH (06:34)
[2020-06-30] MEDS: PANTOPRAZOLE 40MG TAB (PROTONIX) PO SCH (06:35)
[2020-06-30] MEDS: methocarbamoL 500 MG TAB PO SCH ×2 (06:35→21:18)
[2020-06-30] MEDS: CLOPIDOGREL 75 MG TAB PO SCH (06:35)
[2020-06-30] MEDS: predniSONE 5 MG TAB PO SCH (06:35)
[2020-06-30] MEDS: K-PHOS NEUTRAL 250MG TABLET (SOD.PHOSPHATE/POT.PHOSPHATE) PO SCH ×3 (06:35→21:17)
[2020-06-30] MEDS: FEBUXOSTAT 40 MG TABLET (ULORIC) PO SCH (06:35)
[2020-06-30] MEDS: DOCUSATE SODIUM 100 MG CAP PO SCH ×2 (06:35→21:17)
[2020-06-30] MEDS: GABAPENTIN 100 MG CAP PO SCH (06:35)
[2020-06-30] MEDS: CARVedilol 3.125 MG TAB PO SCH ×2 (06:36→21:17)
[2020-06-30] MEDS: TAMSULOSIN 0.4 MG CAP PO SCH (06:36)
[2020-06-30] MEDS: TORSEMIDE 20 MG TAB PO SCH ×2 (06:36→16:46)
[2020-06-30] MEDS: HEPARIN SOD (PORCINE) 5000UNITS/ML 1ML VIAL/SYRINGE SC SCH ×3 (06:37→21:16)
[2020-06-30] MEDS: **NOTE PATIENT COMMENT** MISC XX SCH (09:00)
[2020-06-30 09:47] LABS: BASO # 0.1 10^3/uL (0.0-0.2); BASO % 0.5 % (0.0-1.0); EOS # 0.6 10^3/uL (0.0-0.5); EOS % 4.9 % (0.0-3.0); HEMATOCRIT 31.3 % (42.0-52.0); LYMPH # 1.4 10^3/uL (1.5-5.0); LYMPH % 12.6 % (24.0-44.0); MEAN CORPUSCULAR HEMOGLOBIN 33.4 pg (27.0-33.0); MEAN CORPUSCULAR HGB CONC 31.9 g/dl (32.0-36.5); MEAN CORPUSCULAR VOLUME 104.7 fl (80.0-96.0); MONO # 1.1 10^3/uL (0.0-0.8); MONO % 10.2 % (0.0-5.0); NEUTROPHILS # 7.7 10^3/uL (1.5-8.5); NEUTROPHILS % 68.7 % (36.0-66.0); PLATELET COUNT, AUTOMATED 247 10^3/uL (150-450); RED BLOOD COUNT 2.99 10^6/uL (4.30-6.10); WHITE BLOOD COUNT 11.2 10^3/uL (4.0-10.0)
[2020-06-30 10:16] LABS: CALCIUM LEVEL 8.7 MG/DL (8.8-10.2); CREATININE FOR GFR 3.47 MG/DL (0.70-1.30); GLOMERULAR FILTRATION RATE 18.4 (>42); PHOSPHORUS LEVEL 3.5 MG/DL (2.5-4.9); POTASSIUM SERUM 4.2 MEQ/L (3.5-5.1)
--- NOTE | 2020-06-30 11:40 | IPN ---
DATE: 06/28/2020 SUBJECTIVE: Patient seen and examined at the bedside. Chart has been reviewed. There are no new complaints this morning. PHYSICAL EXAMINATION: VITALS: Temperature 98.9, pulse 100, respiratory rate 18, blood pressure 145/67, 94% on room air. GENERAL: Patient is awake, alert and oriented to person, place and time. Answering questions appropriately. NECK: No JVD. No thyromegaly. LUNGS: Diminished, but clear to auscultation. No wheezing, rales or rhonchi. HEART: S1, S2, sinus rhythm. ABDOMEN: Soft, nontender, non-distended. Positive bowel sounds. EXTREMITIES: Left hip is tender, limited range of motion, unable to fully examine. Trace lower extremity edema. LABORATORY DATA: White count 8.5, hemoglobin 9.5, hematocrit 29, platelet count 228,000. Sodium 138, potassium 4, chloride 102, bicarb 28, BUN 31, creatinine 3.22, glucose 181. Phosphorus 1.5. ASSESSMENT AND PLAN: 1. 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 In March, transferred to [facility] but surgery was deferred and was sent to ARU and rehab in April prior to discharge home. Patient has had multiple admissions with pain complaints, lethargy from medications, and was admitted for acute on chronic left hip pain, evaluated at [facility], ruled out for septic arthritis; status post biopsy and culture. Patient will need rehab placement, awaiting ARU screen. 2. End-stage renal disease on maintenance dialysis on Friday, Friday, Friday: Patient will need outpatient dialysis. nephrology managing HD needs. Once patient has a chair, he can be discharged to rehab. 3. Congestive heart failure with preserved ejection fraction on chronic Torsemide: Diuresis per nephrology via dialysis. 4. Obstructive sleep apnea: noncompliant with CPAP. 5. CAD: On statin, Plavix and beta-faisal. 6. Hypertension: On chronic statin. 7. Diabetes: Diet controlled, consists of carb diet, insulin sliding scale and hypoglycemic protocol. 8. Chronic gout: On Uloric. MTDD
--- NOTE | 2020-06-30 11:41 | IPN ---
DATE: 06/29/2020 Patient complains of 8/10 pain despite Dilaudid of his right hip. Says he is having trouble with range of motion in bilateral shoulders due to rotator cuff injury bilaterally. No fever, chills, nausea, vomiting, abdominal pain. Tolerating his diet. No shortness of breath. OBJECTIVE: PHYSICAL EXAMINATION: VITAL SIGNS: Temperature 98.2, pulse 93, respiratory rate 18, blood pressure 124/61, 95% on room air. GENERAL: Patient is awake, alert, oriented to person, place, and time, answering questions appropriately. Pupils round, reactive. Moist mucous membranes. No jugular venous distention (JVD) or thyromegaly. LUNGS: Clear to auscultation. No wheezing or rales. HEART: S1, S2, sinus rhythm. ABDOMEN: Soft, nontender, nondistended. Positive bowel sounds. EXTREMITIES: Pitting edema 1+ bilaterally. June 28 CBC and metabolic panel have been reviewed. ASSESSMENT AND PLAN: This is a 75-year-old male admitted on June 23 with complaints of hip pain. Patient had a recent left hip fracture due to avascular necrosis from chronic steroid use in March, but surgery was deferred, and patient was sent to acute rehabilitation unit (ARU) for rehabilitation in April. He presented to the emergency room on June 23 with confusion due to polypharmacy and was admitted for pain control. IMPRESSION: 1. Left hip acute on chronic pain, due to avascular necrosis of the hip. Fracture was to be repaired by orthopedic surgery in [facility] at [facility] but surgeon deferred. Awaiting rehabilitation placement. Acute on chronic pain. Pain management has been consulted. Patient is currently on Dilaudid with persistent pain. Bowel regimen has been given and deep venous thrombosis (DVT) prophylaxis. 2. Bilateral rotator cuff tear. Orthopedic followup as outpatient. 3. End stage renal disease, on maintenance dialysis Friday, Friday, Friday. Nephrology consulted and managing his current issues. 4. Heart failure with preserved ejection fraction, managed by nephrology via dialysis. 5. Coronary artery disease (CAD), on chronic statin, Plavix, and beta faisal. 6. Obstructive sleep apnea (ABELARDO), noncompliant with continuous positive airway pressure (CPAP). 7. Hyperlipidemia, on statin. 8. Type 2 diabetes, on consistent-carbohydrate diet, hypoglycemic protocol, and sliding scale coverage. 9. Gout, on Uloric. 10. Insomnia. As-needed trazodone. MTDD
--- NOTE | 2020-06-30 11:44 | IPN ---
DATE: 06/29/2020 SUBJECTIVE: Patient is seen and examined at the bedside today morning. He still complains of low back pain which is not being controlled with the current set of medications. He was dialyzed yesterday, he tolerated the hemodialysis procedure well. Otherwise, he denies any active complaints apart from pain in the back and hip on the left side. OBJECTIVE: Vital signs: Temperature is 98.2 degrees Fahrenheit, blood pressure 124/61, pulse is 93, respiratory rate of 18, saturating 95% on room air. Intake and output: There is no urine output recorded. Ultrafiltration with hemodialysis was 2.5 liters. Weight in the bed scale is not available. PHYSICAL EXAMINATION: General: Patient is awake, alert, oriented times three, sitting up in the sofa, no apparent distress. Head and neck exam: Extraocular muscles intact. Pupils equally round and reactive to light. Mucous membranes are moist. Neck is supple. There is no jugular venous distension (JVD). Cardiovascular: S1, S2, regular rate. 1+ edema of the bilateral lower extremities. Respiratory: Chest is clear to auscultation bilaterally. Bilateral equal air entry. No rales or rhonchi. Abdomen: Soft, positive bowel sounds, nontender. Musculoskeletal: Decreased range of movement of the left hip due to pain. Central nervous system (ELECTRIC DISTRIBUTION CHECKER): No focal deficits. Power is 5/5 in bilateral upper extremities. LABORATORY REVIEW: CBC is from yesterday and BMP is from yesterday as well. He has troponin of 0.02 which is within the normal range. CURRENT INPATIENT MEDICATIONS: Patients medications were all reviewed by myself. There is no significant change in the medications today as compared with yesterday. ASSESSMENT AND PLAN: 1. End-stage renal disease. Patient is being dialyzed according to Friday, Friday, Friday schedule. Next hemodialysis will be done tomorrow morning. 2. Anemia in end-stage renal disease. Hemoglobin level is stable but suboptimal. Continue current dose of Aranesp 200 mcg. Dose will be increased next week if hemoglobin stays low. 3. Hypertension. Continue current dose of carvedilol 3.125 mg by mouth twice a day. Volume status is being controlled with dialysis. 4. Chronic diastolic congestive heart failure. Continue current dose of torsemide 20 mg by mouth twice a day. 5. Chronic gout. Continue current dose of Uloric 80 mg by mouth daily. 6. Back pain and left hip pain. Patient is currently getting Tylenol as needed, he is getting Lidoderm, he is on gabapentin 100 mg, he is getting Dilaudid 5 mg by mouth every 6 hours as needed. Rest of the pain medicine optimization is as per medical team. AKID
[2020-06-30] MEDS: SANTYL OINT 30GM TOP SCH (13:22)
[2020-06-30] MEDS: [UNRECOGNIZED DRUG - OTHER] TOP SCH (13:22)
[2020-06-30 14:00] VITALS: BP 130/70
--- NOTE | 2020-06-30 16:13 | IPN ---
DATE: 06/30/2020 SUBJECTIVE: Patient still complains of pain despite morphine twice a day and as-needed Dilaudid. Seen by pain management yesterday. No fever, chills, or shortness of breath. OBJECTIVE: PHYSICAL EXAMINATION VITALS: Temperature 98.3, pulse 98, respiratory rate 18, blood pressure 142/78, 98% on room air. GENERAL: Awake, alert, oriented to person, place, and time, answering questions appropriately. LUNGS: Clear to auscultation. No wheezing or rales. HEART: S1, S2, sinus rhythm. ABDOMEN: Soft, nontender, nondistended. Positive bowel sounds. EXTREMITIES: No cyanosis or clubbing. Decreased range of motion of the left hip due to severe pain. Pitting edema 1 +. LABORATORY DATA: White count 11, hemoglobin 10, hematocrit 31, platelet count 247. Sodium 136, potassium 4.2, chloride 99, bicarbonate 27, BUN 43, creatinine 3.47, glucose of 117. ASSESSMENT AND PLAN: This is a 75-year-old male admitted on June 23 due to left hip with recent fracture due to avascular necrosis and chronic steroid use in March, but surgery was deferred and patient was sent to acute rehabilitation unit (ARU) in April. He then presented with confusion due to polypharmacy, admitted for pain control of the left hip with history of bilateral rotator cuff and end stage renal disease, on maintenance dialysis, and heart failure. IMPRESSION: 1. 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 [facility] deferred surgery until cleared by rehab. outpt fu after rehab discharge. pnr dilaudid per pain mgt and msir bid. bowel regimen. Awaiting rehabilitation acceptance. Currently seen by pain management clinic with recommendations for MS-IR twice a day and Dilaudid as needed with Colace for bowel prophylaxis. 2. Bilateral rotator cuff tear. Orthopedic followup as outpatient.assisted ambulation only . 3. End stage renal disease. Maintenance dialysis Friday, Friday, Friday, managed by nephrology. 4. Congestive heart failure, diastolic dysfunction, managed by nephrology through dialysis. 5. Coronary artery disease (CAD), on statin, Plavix, beta faisal, 6. Obstructive sleep apnea, noncompliant with continuous positive airway pressure (CPAP). 7. Hyperlipidemia, on statin. 8. Type 2 diabetes, on sliding scale, hypoglycemic protocol. 9. Gout, on Uloric. 10. Insomnia. As-needed trazodone. MTDD
--- NOTE | 2020-06-30 17:26 | IPNPDOC ---
Text Note Date of Service The patient was seen on 06/30/20. NOTE SUBJECTIVE: Patient was seen and examined today during his dialysis session. He continues to have left hip pain, states it is slowly improving. No new issues. OBJECTIVE: PHYSICAL EXAMINATION: VITAL SIGNS: Please see below. GENERAL: Alert, sitting up comfortably in bed, in no acute distress HEENT: NC, AT, moist mucous membranes, no JVD CARDIOVASCULAR: RRR, normal S1 and S2 RESPIRATORY: CTAB, no wheezing, rhonchi, or rales ABDOMINAL: Soft, nontender, nondistended EXTREMITIES: bilateral 1+ pitting edema of the lower extremities ASSESSMENT/PLAN: 75 year old male with ESRD on hemodialysis admitted for left hip fracture with immobility. 1. ESRD on hemodialysis MWF. Hemodialysis session complete today with 3000mL removed. 2. Anemia and end-stage renal disease. Hemoglobin level is stable at 10.0. Continue with Aranesp with dialysis. Iron levels are adequate. 3. Hypertension with hypertensive heart disease. Blood pressure well controlled. Continue current dose of Coreg 3.125 mg twice a day. 4. Chronic diastolic congestive heart failure. Continue current dose of Torsemide 20 mg twice a day. 5. Left hip fracture with immobility. Patient continues with PT/OT. He believes he will be discharged to a rehab facility when medically stable. Thank you for the consultation on this patient, we will continue to follow along. VS,Fishbone, I+O VS, Fishbone, I+O Laboratory Tests 06/30/20 08:41 Vital Signs Date Time Temp Pulse Resp B/P (MAP) Pulse Ox O2 Delivery O2 Flow Rate FiO2 06/30/20 09:57 18 06/30/20 06:36 98 142/78 06/30/20 06:00 98.3 98 Room Air I&O- Last 24 Hours up to 6 AM 06/30/20 06:00 Intake Total 1800 ml Output Total 675 ml Balance 1125 ml GME ATTESTATION GME ATTESTATION My faculty preceptor for this patient encounter was physically present during the encounter and was fully available. All aspects of the patient interview, examination, medical decision making process, and medical care plan development were reviewed and approved by the faculty preceptor. The faculty preceptor is aware and concurs with the plan as stated in the body of this note and will attest to such by his/her cosignature. ATTENDING NOTE ESRD HFpEF Anemia in ESRD Lt Hip Fracture. HD today. UF goal 2.5-3L. BREEZY ALEX D.O. Jun 30, 2020 17:26 BUSTER ANN MD Jul 02, 2020 09:23
[2020-06-30] MEDS: DULoxetine 30 MG CAP (CYMBALTA) PO SCH (21:16)
[2020-06-30] MEDS: LIDOCAINE 5% (LIDODERM) PATCH TD SCH (21:16)
[2020-06-30] MEDS: ATORVASTATIN 20 MG TAB PO SCH (21:16)
[2020-06-30 22:00] VITALS: BP 141/85
[2020-07-01] MEDS: ALPRAZolam 0.25 MG TAB PO PRN (03:33)
[2020-07-01 06:00] VITALS: BP 125/78
[2020-07-01] MEDS: HEPARIN SOD (PORCINE) 5000UNITS/ML 1ML VIAL/SYRINGE SC SCH ×3 (06:11→20:39)
[2020-07-01] MEDS: TAMSULOSIN 0.4 MG CAP PO SCH (08:18)
[2020-07-01] MEDS: predniSONE 5 MG TAB PO SCH (08:19)
[2020-07-01] MEDS: PANTOPRAZOLE 40MG TAB (PROTONIX) PO SCH (08:19)
[2020-07-01] MEDS: CLOPIDOGREL 75 MG TAB PO SCH (08:19)
[2020-07-01] MEDS: MULTIVITAMINS/MINERALS THERAP 1 TAB PO SCH (08:19)
[2020-07-01] MEDS: DOCUSATE SODIUM 100 MG CAP PO SCH ×2 (08:19→20:41)
[2020-07-01] MEDS: MORPHINE 30 MG TAB **MSIR PO SCH ×2 (08:19→20:41)
[2020-07-01] MEDS: methocarbamoL 500 MG TAB PO SCH ×2 (08:19→20:39)
[2020-07-01] MEDS: K-PHOS NEUTRAL 250MG TABLET (SOD.PHOSPHATE/POT.PHOSPHATE) PO SCH ×3 (08:19→20:39)
[2020-07-01] MEDS: TORSEMIDE 20 MG TAB PO SCH ×2 (08:20→15:57)
[2020-07-01] MEDS: SANTYL OINT 30GM TOP SCH (08:22)
[2020-07-01] MEDS: [UNRECOGNIZED DRUG - OTHER] TOP SCH (08:22)
[2020-07-01] MEDS: CARVedilol 3.125 MG TAB PO SCH ×2 (08:22→20:40)
[2020-07-01] MEDS: **NOTE PATIENT COMMENT** MISC XX SCH (08:23)
[2020-07-01] MEDS: HYDROmorphone (DILAUDID) 4 MG TAB PO PRN ×3 (09:40→23:18)
--- NOTE | 2020-07-01 11:53 | IPNPDOC ---
Text Note Date of Service The patient was seen on 07/01/20. NOTE SUBJECTIVE: Patient was seen and examined today at bedside. He states his left hip pain continues to bother him but it is managed with his medicine. No new issues, tolerated dialysis yesterday. He is waiting for a bed to open up in rehab. OBJECTIVE: PHYSICAL EXAMINATION: VITAL SIGNS: Please see below. GENERAL: Alert, sitting up comfortably in a chair, in no acute distress HEENT: NC, AT, moist mucous membranes, no JVD CARDIOVASCULAR: RRR, normal S1 and S2 RESPIRATORY: CTAB, no wheezing, rhonchi, or rales ABDOMINAL: Soft, nontender, nondistended EXTREMITIES: bilateral 1+ pitting edema of the lower extremities, improved ASSESSMENT/PLAN: 75 year old male with ESRD on hemodialysis admitted for left hip fracture with immobility. 1. ESRD on hemodialysis MWF. Continue on regular hemodialysis schedule while inpatient and after discharge to rehab. 2. Anemia and end-stage renal disease. Hemoglobin level has remained stable. Continue with Aranesp with dialysis. Iron levels are adequate. 3. Hypertension with hypertensive heart disease. Blood pressure well controlled. Continue current dose of Coreg 3.125 mg twice a day. 4. Chronic diastolic congestive heart failure. Continue current dose of Torsemide 20 mg twice a day. 5. Left hip fracture with immobility. Patient continues with PT/OT. He believes he will be discharged to a rehab facility when a bed is available. Thank you for the consultation on this patient, we will continue to follow along. VS,Fishbone, I+O VS, Fishbone, I+O Vital Signs Date Time Temp Pulse Resp B/P (MAP) Pulse Ox O2 Delivery O2 Flow Rate FiO2 07/01/20 10:10 18 07/01/20 08:22 98 114/67 07/01/20 06:00 97.7 94 Room Air I&O- Last 24 Hours up to 6 AM 07/01/20 06:00 Intake Total 1440 ml Output Total 3200 ml Balance -1760 ml BREEZY ALEX D.O. Jul 01, 2020 11:53
[2020-07-01] MEDS ORDERED: BISACODYL 5 MG TAB PO PRN (12:00)
[2020-07-01] MEDS ORDERED: FLEET ENEMA PR PRN (12:00)
[2020-07-01] MEDS ORDERED: MIRALAX *UNIT DOSE* 17GM PACKET PO PRN (12:00)
[2020-07-01 13:11] LABS: HEMATOCRIT 33.4 % (42.0-52.0); HEMOGLOBIN 10.5 g/dl (13.5-17.5); MEAN CORPUSCULAR HEMOGLOBIN 33.8 pg (27.0-33.0); MEAN CORPUSCULAR HGB CONC 31.4 g/dl (32.0-36.5); MEAN CORPUSCULAR VOLUME 107.4 fl (80.0-96.0); PLATELET COUNT, AUTOMATED 213 10^3/uL (150-450); RED BLOOD COUNT 3.11 10^6/uL (4.30-6.10); WHITE BLOOD COUNT 11.6 10^3/uL (4.0-10.0)
[2020-07-01 13:50] LABS: CALCIUM LEVEL 8.3 MG/DL (8.8-10.2); CREATININE FOR GFR 3.02 MG/DL (0.70-1.30); GLOMERULAR FILTRATION RATE 21.6 (>42)
[2020-07-01 14:00] VITALS: BP 117/61
[2020-07-01] MEDS: ATORVASTATIN 20 MG TAB PO SCH (20:40)
[2020-07-01] MEDS: DULoxetine 30 MG CAP (CYMBALTA) PO SCH (20:41)
[2020-07-01] MEDS: LIDOCAINE 5% (LIDODERM) PATCH TD SCH (20:41)
[2020-07-01 22:00] VITALS: BP 119/64
[2020-07-01] MEDS: SENOKOT S TAB PO PRN (23:17)
[2020-07-02] MEDS: traZODone 50 MG TAB PO PRN ×2 (00:15→23:19)
[2020-07-02] MEDS: HEPARIN SOD (PORCINE) 5000UNITS/ML 1ML VIAL/SYRINGE SC SCH ×3 (05:26→21:04)
[2020-07-02] MEDS: HYDROmorphone (DILAUDID) 4 MG TAB PO PRN ×3 (05:27→21:04)
[2020-07-02 06:35] VITALS: BP 119/66
[2020-07-02] MEDS: TORSEMIDE 20 MG TAB PO SCH ×2 (08:18→16:29)
[2020-07-02] MEDS: methocarbamoL 500 MG TAB PO SCH ×2 (08:18→21:03)
[2020-07-02] MEDS: CLOPIDOGREL 75 MG TAB PO SCH (08:18)
[2020-07-02] MEDS: TAMSULOSIN 0.4 MG CAP PO SCH (08:18)
[2020-07-02] MEDS: K-PHOS NEUTRAL 250MG TABLET (SOD.PHOSPHATE/POT.PHOSPHATE) PO SCH ×3 (08:18→21:04)
[2020-07-02] MEDS: FEBUXOSTAT 40 MG TABLET (ULORIC) PO SCH (08:18)
[2020-07-02] MEDS: CARVedilol 3.125 MG TAB PO SCH ×2 (08:19→20:54)
[2020-07-02] MEDS: predniSONE 5 MG TAB PO SCH (08:19)
[2020-07-02] MEDS: MULTIVITAMINS/MINERALS THERAP 1 TAB PO SCH (08:19)
[2020-07-02] MEDS: DOCUSATE SODIUM 100 MG CAP PO SCH ×2 (08:19→21:03)
[2020-07-02] MEDS: PANTOPRAZOLE 40MG TAB (PROTONIX) PO SCH (08:19)
[2020-07-02] MEDS: MORPHINE 30 MG TAB **MSIR PO SCH (08:20)
[2020-07-02] MEDS: [UNRECOGNIZED DRUG - OTHER] TOP SCH (08:22)
[2020-07-02] MEDS: SANTYL OINT 30GM TOP SCH (08:23)
[2020-07-02] MEDS: **NOTE PATIENT COMMENT** MISC XX SCH (08:23)
[2020-07-02 09:45] LABS: HEMATOCRIT 34.3 % (42.0-52.0); HEMOGLOBIN 10.5 g/dl (13.5-17.5); MEAN CORPUSCULAR HEMOGLOBIN 33.2 pg (27.0-33.0); MEAN CORPUSCULAR HGB CONC 30.6 g/dl (32.0-36.5); MEAN CORPUSCULAR VOLUME 108.5 fl (80.0-96.0); PLATELET COUNT, AUTOMATED 219 10^3/uL (150-450); RED BLOOD COUNT 3.16 10^6/uL (4.30-6.10); WHITE BLOOD COUNT 12.3 10^3/uL (4.0-10.0)
[2020-07-02 10:16] LABS: CALCIUM LEVEL 7.7 MG/DL (8.8-10.2); CREATININE FOR GFR 3.85 MG/DL (0.70-1.30); GLOMERULAR FILTRATION RATE 16.3 (>42); POTASSIUM SERUM 4.3 MEQ/L (3.5-5.1)
[2020-07-02 14:00] VITALS: BP 127/73
[2020-07-02] MEDS: ATORVASTATIN 20 MG TAB PO SCH (21:03)
[2020-07-02] MEDS: DULoxetine 30 MG CAP (CYMBALTA) PO SCH (21:03)
[2020-07-02] MEDS: LIDOCAINE 5% (LIDODERM) PATCH TD SCH (21:04)
[2020-07-02 22:00] VITALS: BP 107/62
[2020-07-03 02:00] VITALS: BP 110/66
[2020-07-03] MEDS: HYDROmorphone (DILAUDID) 4 MG TAB PO PRN ×2 (04:06→09:18)
[2020-07-03 06:00] VITALS: BP 127/67
[2020-07-03] MEDS: DOCUSATE SODIUM 100 MG CAP PO SCH ×2 (06:31→21:19)
[2020-07-03] MEDS: HEPARIN SOD (PORCINE) 5000UNITS/ML 1ML VIAL/SYRINGE SC SCH ×3 (06:31→21:19)
[2020-07-03] MEDS: TAMSULOSIN 0.4 MG CAP PO SCH (06:31)
[2020-07-03] MEDS: predniSONE 5 MG TAB PO SCH (06:31)
[2020-07-03] MEDS: methocarbamoL 500 MG TAB PO SCH ×2 (06:31→21:19)
[2020-07-03] MEDS: GABAPENTIN 100 MG CAP PO SCH (06:32)
[2020-07-03] MEDS: TORSEMIDE 20 MG TAB PO SCH ×2 (06:32→16:31)
[2020-07-03] MEDS: CLOPIDOGREL 75 MG TAB PO SCH (06:32)
[2020-07-03] MEDS: PANTOPRAZOLE 40MG TAB (PROTONIX) PO SCH (06:32)
[2020-07-03] MEDS: K-PHOS NEUTRAL 250MG TABLET (SOD.PHOSPHATE/POT.PHOSPHATE) PO SCH ×3 (06:32→21:19)
[2020-07-03] MEDS: MULTIVITAMINS/MINERALS THERAP 1 TAB PO SCH (06:32)
[2020-07-03] MEDS: CARVedilol 3.125 MG TAB PO SCH ×2 (06:33→20:03)
[2020-07-03] MEDS: **NOTE PATIENT COMMENT** MISC XX SCH (09:00)
[2020-07-03 09:13] LABS: HEMATOCRIT 33.5 % (42.0-52.0); HEMOGLOBIN 10.5 g/dl (13.5-17.5); MEAN CORPUSCULAR HEMOGLOBIN 33.5 pg (27.0-33.0); MEAN CORPUSCULAR HGB CONC 31.3 g/dl (32.0-36.5); PLATELET COUNT, AUTOMATED 198 10^3/uL (150-450); RED BLOOD COUNT 3.13 10^6/uL (4.30-6.10); WHITE BLOOD COUNT 11.7 10^3/uL (4.0-10.0)
[2020-07-03] MEDS: SANTYL OINT 30GM TOP SCH (09:17)
[2020-07-03] MEDS: [UNRECOGNIZED DRUG - OTHER] TOP SCH (09:17)
[2020-07-03 09:28] LABS: CALCIUM LEVEL 7.2 MG/DL (8.8-10.2); CREATININE FOR GFR 4.22 MG/DL (0.70-1.30); GLOMERULAR FILTRATION RATE 14.7 (>42); POTASSIUM SERUM 4.2 MEQ/L (3.5-5.1)
[2020-07-03] MEDS ORDERED: NS 1,000 ML IV SCH (12:05)
[2020-07-03] MEDS ORDERED: diphenhydrAMINE 50MG/ML VIAL (J1200) IV PRN (12:15)
[2020-07-03] MEDS ORDERED: ONDANSETRON 4MG/2ML VIAL IV PRN (12:15)
[2020-07-03] MEDS ORDERED: NALOXONE INJ 0.4MG/1ML VIAL (J2310 PER 1MG) IV PRN (12:15)
[2020-07-03] MEDS ORDERED: EPIDURAL/PCA KEYS XX PRN (12:15)
[2020-07-03 14:00] VITALS: BP 126/64
[2020-07-03] MEDS: MORPHINE 1MG/ML IN 0.9% NACL 100ML IV BAG IV PRN (15:20)
[2020-07-03] MEDS: ATORVASTATIN 20 MG TAB PO SCH (21:19)
[2020-07-03] MEDS: DULoxetine 30 MG CAP (CYMBALTA) PO SCH (21:19)
[2020-07-03] MEDS: LIDOCAINE 5% (LIDODERM) PATCH TD SCH (21:20)
[2020-07-03 22:00] VITALS: BP 104/63
[2020-07-04 02:00] VITALS: BP 115/66
[2020-07-04 06:00] VITALS: BP 101/52
[2020-07-04] MEDS: HEPARIN SOD (PORCINE) 5000UNITS/ML 1ML VIAL/SYRINGE SC SCH ×3 (06:29→21:09)
--- NOTE | 2020-07-04 08:59 | IPN ---
DATE: 07/02/2020 Mr. Mckeon is seen this morning at his bedside. He is sitting in the chair at the time of my visit. Patient denies any nausea or vomiting. He still has pain in his hip and difficulty getting up or ambulating. He denies any dyspnea or chest pain. Leg edema has been stable. On physical examination, temperature 97 degrees Fahrenheit, heart rate is 100 per minute and respiratory rate 16 per minute. Blood pressure 124/70 mmHg and oxygen saturation 92% on room air. Head is atraumatic. Neck supple and JVD not abnormally elevated sitting upright. Trachea is midline and there is no thyroid enlargement. Heart sounds are somewhat tachycardic. Lungs sound clear to auscultation. Abdomen soft and nontender, and bowel sounds are normal. Extremities without any cyanosis or clubbing. Arteriovenous (AV) fistula in his left arm is patent. Neurologically he is awake, alert and oriented times 3. Today's lab showed WBC count 12.3, hemoglobin 10.5 and hematocrit 34.3. Sodium 138, potassium 4.3, BUN 47 and creatinine 3.85. PROBLEMS: 1. End-stage renal disease. Patient is regularly dialyzed on Friday, Friday and Friday schedule. He was dialyzed on Friday last time and we will plan his next dialysis tomorrow. 2. Congestive heart failure. Volume status is very well compensated at this point and we will continue to manage with dialysis. We will plan to remove about 3 liters of fluid on Friday. 3. Anemia. His anemia has been stable and does not need any intervention at this point. 4. Hip pain. This is a chronic issue related to acetabular fracture. He is getting some physical therapy and is waiting for acute rehab. 5. Hypertension. Blood pressure is very well controlled on current medications and no changes are being made today. MTDD
[2020-07-04] MEDS: CLOPIDOGREL 75 MG TAB PO SCH (09:01)
--- NOTE | 2020-07-04 09:01 | IPN ---
DATE: 07/03/2020 SUBJECTIVE: Mr. Mckeon is seen this morning during hemodialysis. He reports vomiting just before dialysis. He was also given pain medication for his left hip pain. PHYSICAL EXAMINATION: Temperature 97.9 degrees Fahrenheit, heart rate 74 per minute, respiratory rate 18 per minute, blood pressure 127/67 mmHg and oxygen saturation 98% on room air. Head is atraumatic. Neck supple and without JVD or thyroid enlargement. Heart sounds are regular, and lungs clear to auscultation. Abdomen soft and nontender, and bowel sounds are normal. Extremities without any cyanosis or clubbing. Left arm AV fistula is currently being used for dialysis. Neurologically, he remains at his baseline mentation. LABORATORY DATA: Today's lab showed WBC count 11.7, hemoglobin 10.5 and hematocrit 33.5. Sodium 134, potassium 4.2, BUN 59 and creatinine 4.22. PROBLEMS: 1. End-stage renal disease: Patient is being dialyzed today and 3.0 liters of fluid will be removed. His main issue remains the left hip pain. 2. Hypertension: Blood pressure is well controlled on current medications and no changes are being made today. 3. Congestive heart failure: Volume status is well compensated and we will continue to maintain with dialysis. Today we will try to remove about 3 liters of fluid. 4. Left hip pain due to acetabular fracture: Patient remains on pain medications. He is waiting for a spot in acute rehab. [facility]
[2020-07-04] MEDS: predniSONE 5 MG TAB PO SCH (09:02)
[2020-07-04] MEDS: TAMSULOSIN 0.4 MG CAP PO SCH (09:04)
[2020-07-04] MEDS: [UNRECOGNIZED DRUG - OTHER] TOP SCH (09:04)
[2020-07-04] MEDS: TORSEMIDE 20 MG TAB PO SCH ×2 (09:04→17:09)
[2020-07-04] MEDS: DOCUSATE SODIUM 100 MG CAP PO SCH ×2 (09:04→21:10)
[2020-07-04] MEDS: SANTYL OINT 30GM TOP SCH (09:04)
[2020-07-04] MEDS: PANTOPRAZOLE 40MG TAB (PROTONIX) PO SCH (09:04)
[2020-07-04] MEDS: MULTIVITAMINS/MINERALS THERAP 1 TAB PO SCH (09:04)
[2020-07-04] MEDS: **NOTE PATIENT COMMENT** MISC XX SCH (09:04)
[2020-07-04] MEDS: methocarbamoL 500 MG TAB PO SCH (09:04)
[2020-07-04] MEDS: CARVedilol 3.125 MG TAB PO SCH ×2 (09:04→21:10)
[2020-07-04] MEDS: FEBUXOSTAT 40 MG TABLET (ULORIC) PO SCH (09:04)
[2020-07-04] MEDS: K-PHOS NEUTRAL 250MG TABLET (SOD.PHOSPHATE/POT.PHOSPHATE) PO SCH ×2 (09:04→16:57)
--- NOTE | 2020-07-04 09:06 | IPN ---
DATE: 07/01/2020 Patient seen and examined at the bedside. Chart has been reviewed. Still complains of 5/10 pain in the left hip. No new complaints. OBJECTIVE: PHYSICAL EXAMINATION: VITAL SIGNS: Temperature 97.7, respiratory rate 20, pulse 98, blood pressure 114/67. GENERAL: Awake, alert, oriented to person, place, and time, answering questions appropriately. No jugular venous distention (JVD). No thyromegaly. No cervical lymphadenopathy. LUNGS: Clear to auscultation. No wheezing, rales, or rhonchi. HEART: S1, S2, sinus rhythm. ABDOMEN: Soft, nontender, nondistended. Positive bowel sounds times four quadrants. No rebound, guarding, or hepatosplenomegaly. EXTREMITIES: Pitting edema 1+. Severe pain in the left hip. Unable to perform full range of motion with flexion, extension, internal and external rotation. LABORATORY DATA: White count 11, hemoglobin 10, hematocrit 31, platelet count 247. July 01 labs are still pending. ASSESSMENT AND PLAN: This is a 75-year-old male awaiting rehabilitation placement. 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 Seen by pain management. Continued on MS-IR twice a day, Dilaudid as needed, Colace for bowel prophylaxis. Complains of constipation. 2. Opiate-induced constipation. Colace has no relief. Will give Senokot, Dulcolax, MiraLax, and Fleet enema. 3. Bilateral rotator cuff tear. Orthopedic followup as outpatient. On MS-IR and as-needed Dilaudid. 4. End stage renal disease, managed by nephrology, on maintenance dialysis Friday, Friday, Friday. 5. Congestive heart failure and diastolic dysfunction, managed by nephrology through dialysis. 6. Coronary artery disease (CAD), on statins, Plavix, and beta faisal. 7. Obstructive sleep apnea (ABELARDO), noncompliant with continuous positive airway pressure (CPAP). 8. Hyperlipidemia, on statin. 9. Type 2 diabetes, on sliding scale, consistent-carbohydrate, and hypoglycemic protocol. 10. Gout, on Uloric. 11. Insomnia, as-needed trazodone. DISPOSITION: Discharge pending acute rehabilitation unit (ARU) acceptance. [facility]
[2020-07-04 11:16] LABS: HEMATOCRIT 36.1 % (42.0-52.0); HEMOGLOBIN 11.3 g/dl (13.5-17.5); MEAN CORPUSCULAR HEMOGLOBIN 33.9 pg (27.0-33.0); MEAN CORPUSCULAR HGB CONC 31.3 g/dl (32.0-36.5); MEAN CORPUSCULAR VOLUME 108.4 fl (80.0-96.0); PLATELET COUNT, AUTOMATED 242 10^3/uL (150-450); RED BLOOD COUNT 3.33 10^6/uL (4.30-6.10); WHITE BLOOD COUNT 11.9 10^3/uL (4.0-10.0)
[2020-07-04 11:37] LABS: CALCIUM LEVEL 8.1 MG/DL (8.8-10.2); CREATININE FOR GFR 3.32 MG/DL (0.70-1.30); GLOMERULAR FILTRATION RATE 19.4 (>42); POTASSIUM SERUM 4.3 MEQ/L (3.5-5.1)
[2020-07-04] MEDS ORDERED: atenoloL 25 MG TAB PO ONE (11:45)
[2020-07-04] MEDS: MORPHINE 1MG/ML IN 0.9% NACL 100ML IV BAG IV PRN (12:27)
[2020-07-04 14:00] VITALS: BP 106/65
--- NOTE | 2020-07-04 16:08 | IPNPDOC ---
Date Seen The patient was seen on 07/04/20. Progress Note per pain mgt , Tatianna Zheng, -dc morphine spinneret person -dc robaxin -dilaudid 4mg tab 1 to 1 1/2 tabs po q4hp -flexeril 5 mg tid VS, I&O, 24H, Fishbone Vital Signs/I&O Vital Signs Date Time Temp Pulse Resp B/P (MAP) Pulse Ox O2 Delivery O2 Flow Rate FiO2 07/04/20 12:20 96 110/70 07/04/20 06:00 97.2 19 91 Room Air I&O- Last 24 Hours up to 6 AM 07/04/20 06:00 Intake Total 735 ml Output Total 3200 ml Balance -2465 ml Laboratory Data 24H LABS Laboratory Tests 2 07/04/20 10:56: Nucleated Red Blood Cells % (auto) 0.0, Anion Gap 9, Glomerular Filtration Rate 19.4L, Calcium Level 8.1L CBC/BMP Laboratory Tests 07/04/20 10:56 ROSY YEUNG MD Jul 04, 2020 16:08
[2020-07-04] MEDS ORDERED: HYDROmorphone (DILAUDID) 4 MG TAB PO PRN (16:30)
[2020-07-04] MEDS: CYCLOBENZAPRINE 5MG TABLET PO SCH ×2 (16:57→21:10)
[2020-07-04] MEDS: DULoxetine 30 MG CAP (CYMBALTA) PO SCH (21:09)
[2020-07-04] MEDS: ATORVASTATIN 20 MG TAB PO SCH (21:09)
[2020-07-04] MEDS: LIDOCAINE 5% (LIDODERM) PATCH TD SCH (21:11)
[2020-07-04 22:00] VITALS: BP 139/76
[2020-07-05] MEDS: HYDROmorphone (DILAUDID) 4 MG TAB PO PRN ×2 (00:41→15:49)
[2020-07-05 03:00] VITALS: BP 130/90
[2020-07-05 06:00] VITALS: BP 114/54
[2020-07-05] MEDS: GABAPENTIN 100 MG CAP PO SCH (06:07)
[2020-07-05] MEDS: HEPARIN SOD (PORCINE) 5000UNITS/ML 1ML VIAL/SYRINGE SC SCH ×3 (06:07→21:06)
[2020-07-05] MEDS: TORSEMIDE 20 MG TAB PO SCH ×2 (06:08→17:12)
[2020-07-05] MEDS: CLOPIDOGREL 75 MG TAB PO SCH (06:08)
[2020-07-05] MEDS: PANTOPRAZOLE 40MG TAB (PROTONIX) PO SCH (06:08)
[2020-07-05] MEDS: predniSONE 5 MG TAB PO SCH (06:08)
[2020-07-05] MEDS: CYCLOBENZAPRINE 5MG TABLET PO SCH (06:08)
[2020-07-05] MEDS: MULTIVITAMINS/MINERALS THERAP 1 TAB PO SCH (06:09)
[2020-07-05] MEDS: TAMSULOSIN 0.4 MG CAP PO SCH (06:10)
[2020-07-05] MEDS: CARVedilol 3.125 MG TAB PO SCH ×2 (06:10→20:28)
[2020-07-05] MEDS: **NOTE PATIENT COMMENT** MISC XX SCH (06:10)
[2020-07-05] MEDS: SANTYL OINT 30GM TOP SCH (06:11)
[2020-07-05] MEDS: [UNRECOGNIZED DRUG - OTHER] TOP SCH (06:12)
[2020-07-05] MEDS: DOCUSATE SODIUM 100 MG CAP PO SCH ×2 (06:14→20:27)
[2020-07-05] MEDS: SENOKOT S TAB PO PRN (06:14)
[2020-07-05 15:45] VITALS: BP 110/55
[2020-07-05 17:40] LABS: HEMATOCRIT 34.3 % (42.0-52.0); HEMOGLOBIN 10.7 g/dl (13.5-17.5); MEAN CORPUSCULAR HEMOGLOBIN 33.8 pg (27.0-33.0); MEAN CORPUSCULAR HGB CONC 31.2 g/dl (32.0-36.5); MEAN CORPUSCULAR VOLUME 108.2 fl (80.0-96.0); PLATELET COUNT, AUTOMATED 206 10^3/uL (150-450); RED BLOOD COUNT 3.17 10^6/uL (4.30-6.10); WHITE BLOOD COUNT 10.8 10^3/uL (4.0-10.0)
[2020-07-05 17:50] LABS: CALCIUM LEVEL 8.9 MG/DL (8.8-10.2); CREATININE FOR GFR 2.56 MG/DL (0.70-1.30); GLOMERULAR FILTRATION RATE 26.1 (>42)
[2020-07-05] MEDS: DULoxetine 30 MG CAP (CYMBALTA) PO SCH (20:27)
[2020-07-05] MEDS: LIDOCAINE 5% (LIDODERM) PATCH TD SCH (20:27)
[2020-07-05] MEDS: ATORVASTATIN 20 MG TAB PO SCH (20:27)
[2020-07-05 22:00] VITALS: BP 155/79
[2020-07-06] MEDS: HYDROmorphone (DILAUDID) 4 MG TAB PO PRN ×3 (02:58→21:14)
[2020-07-06] MEDS: ALPRAZolam 0.25 MG TAB PO PRN (04:19)
[2020-07-06 06:00] VITALS: BP 148/60
[2020-07-06] MEDS: HEPARIN SOD (PORCINE) 5000UNITS/ML 1ML VIAL/SYRINGE SC SCH ×3 (07:06→21:14)
[2020-07-06] MEDS: CARVedilol 3.125 MG TAB PO SCH ×2 (09:00→21:13)
[2020-07-06] MEDS: DOCUSATE SODIUM 100 MG CAP PO SCH ×2 (09:01→21:12)
[2020-07-06] MEDS: TORSEMIDE 20 MG TAB PO SCH ×2 (09:01→17:13)
[2020-07-06] MEDS: TAMSULOSIN 0.4 MG CAP PO SCH (09:01)
[2020-07-06] MEDS: FEBUXOSTAT 40 MG TABLET (ULORIC) PO SCH (09:01)
[2020-07-06] MEDS: MULTIVITAMINS/MINERALS THERAP 1 TAB PO SCH (09:01)
[2020-07-06] MEDS: PANTOPRAZOLE 40MG TAB (PROTONIX) PO SCH (09:01)
[2020-07-06] MEDS: predniSONE 5 MG TAB PO SCH (09:01)
[2020-07-06] MEDS: CLOPIDOGREL 75 MG TAB PO SCH (09:03)
[2020-07-06] MEDS: [UNRECOGNIZED DRUG - OTHER] TOP SCH (09:03)
[2020-07-06] MEDS: SANTYL OINT 30GM TOP SCH (09:03)
[2020-07-06] MEDS: **NOTE PATIENT COMMENT** MISC XX SCH (09:03)
--- NOTE | 2020-07-06 09:10 | IPN ---
DATE: 07/02/2020 SUBJECTIVE: The patient complains of severe pain 10/10 when he moves from the recliner to the bed, especially when he is being transferred and the joint is disturbed. He also complains of limited range of motion bilateral upper extremities due to rotator cuff injury, unable to reach the remote control to watch. Patient appears tearful this morning and feels depressed about not being able to repair his hip quickly and being dependent on others for ADLs. OBJECTIVE/PHYSICAL EXAMINATION: VITALS: Temperature 97, pulse 97, respiratory rate 18, blood pressure 120/68, 97% on room air. GENERAL: Awake, alert, oriented. Appears his stated age. NECK: No JVD. No thyromegaly. NEURO: Limited range of motion of flexion, extension, abduction bilateral upper extremities. LUNGS: Clear to auscultation. No wheezing or rales. HEART: S1, S2, sinus rhythm. ABDOMEN: Obese, soft, nontender, non-distended. EXTREMITIES: Trace to 1+ pitting edema bilateral lower extremities. Left hip significant pain and limited range of motion. LABORATORY DATA: Reviewed. ASSESSMENT AND PLAN: This 75-year-old male admitted on June 23 due to left hip with recent fracture due to avascular necrosis from chronic steroid use. Patient's surgeon had deferred surgery until after rehab. Patient underwent rehab, but was admitted to the hospital due to polypharmacy from many medications taken for pain control and was found to have worsening pain. He does have a history of end-stage renal disease on maintenance dialysis Friday, Friday, Friday. 1. Acute encephalopathy secondary to polypharmacy resolved. 2. Left hip acute on chronic pain due to avascular necrosis of the hip. Surgery by his orthopedist in [place] has been postponed per the surgeons recommendation until he is stronger. He has completed rehab and now awaiting rehab again. Currently on Dilaudid every 6 hours p.r.n. changed to every 4 hours p.r.n. as the pain is not controlled. Still on MSIR 15 mg b.i.d. Re-consult pain management in the morning. 3. Bilateral rotator cuff tear with significant ability and inability to perform ADLs. Patient is frustrated that he is quite limited in requiring help with his ADLs. ARU has been consulted. 4. End-stage renal disease on maintenance dialysis Friday, Friday, Friday; managed by nephrology. 5. CHF diastolic dysfunction managed by nephrology through dialysis and currently on diuretic. 6. CAD on statin, Plavix and Beta-Payton. 7. Obstructive sleep apnea; noncompliant with CPAP. 8. Hyperlipidemia on statin. 9. Type 2 diabetes mellitus on sliding scale. 10. Gout on Uloric. 11. Insomnia on Trazodone. MTDD
--- NOTE | 2020-07-06 09:16 | IPN ---
DATE: 07/03/2020 SUBJECTIVE: The patient had one episode of vomiting this morning, non-bilious, non-projectile, I thought I ate too much. After vomiting, patient otherwise denies any persistent nausea. He complains of severe pain of his bilateral shoulders and hips, given Dilaudid with no improvement. Patient was unable to complete dialysis due to severe pain. PHYSICAL EXAMINATION: VITAL SIGNS: Temperature 97.9, pulse 74, respiratory rate 19, blood pressure 127/67, 98% on room air. GENERAL: The patient is awake, alert and oriented to person, place and time, answering questions appropriately. NECK: No JVD or thyromegaly. LUNGS: Diminished, bilateral crackles. HEART: S1 and S2. Sinus rhythm. No murmurs, rubs or gallops. ABDOMEN: Soft, obese, nontender, nondistended. Positive bowel sounds. EXTREMITIES: 1+ pitting edema bilaterally. Patient has limited range of motion of bilateral shoulders due to bilateral rotator cuff injury and decreased motion of left hip secondary to severe avascular necrosis. LABORATORY DATA: White count 11, hemoglobin 10, hematocrit 33, platelet count 198,000, sodium 134, potassium 4, chloride 97, bicarbonate 28, BUN 59, creatinine 4.2, glucose of 111. ASSESSMENT AND PLAN: This is a 75-year-old male with recent fracture due to avascular necrosis of the left hip from chronic steroid use, was evaluated in [place] by an orthopedic surgeon who recommended rehabilitation prior to surgical correction. Patient was brought into the Emergency Room due to polypharmacy and confusion with worsening left hip pain. ISSUES: 1. Nausea and vomiting, severe pain. 2. Left hip acute on chronic pain due to avascular necrosis and fracture from chronic steroid use. [facility] had deferred surgery until after rehab. 3. Bilateral rotator cuff tear. 4. Endstage renal disease. 5. Chronic diastolic heart failure, compensated. 6. CAD. 7. ABELARDO. 8. Hyperlipidemia. 9. Type 2 diabetes. 10. Gout. 11. Insomnia. PLAN: Patients pain is not well-controlled. He has episodes of vomiting. Patient will be kept on IV INFECTION CONTROL SPECIALIST pump and re-consult Pain Management in the morning. Dialysis could not be performed today due to severe pain. Defer to Dr. Hope for other dialysis needs. [facility]
--- NOTE | 2020-07-06 09:23 | IPN ---
DATE: 07/04/2020 SUBJECTIVE: Mr. Mckeon is seen this morning at his bedside. He is in good spirits today and feels much better. He is sitting in the chair and just finished a video call with his friends. Yesterday, he was in a lot of pain during dialysis and could not complete his dialysis treatment. PHYSICAL EXAMINATION: VITAL SIGNS: Temperature is 97.2 degrees Fahrenheit, heart rate 96 per minute and respiratory rate 18 per minute. Blood pressure is 102/63 mmHg and oxygen saturation 91% on room air. HEENT: Head is atraumatic. NECK: Supple. JVD not abnormally elevated sitting upright. HEART: Heart sounds are tachycardic and irregular. LUNGS: Clear to auscultation. ABDOMEN: Soft and nontender. Bowel sounds are normal. EXTREMITIES: Without any cyanosis or clubbing. AV fistula in his left arm is patent. LABORATORY DATA: Todays labs showed WBC count of 11.9, hemoglobin 11.3 and hematocrit 36.1, platelets are 242,000. Sodium 136, potassium 4.3, CO2 29, BUN 28 and creatinine 3.32. Calcium is 8.1. PROBLEMS: 1. Endstage renal disease. Patient had partial dialysis treatment yesterday which was terminated early due to severe pain. His volume status is still compensated and electrolytes are within normal range. We are going to plan next dialysis for tomorrow. I do not believe that he needs urgent dialysis today. 2. Anemia. His anemia has been stable and does not need any intervention at present. 3. Left hip pain. This is related to acetabular fracture. He is now on intravenous Morphine with PRESS OPERATOR HELPER. This is being managed by the Hospitalist service. 4. Congestive heart failure, his volume status remains very well compensated and will continue to manage it with dialysis. [facility]
--- NOTE | 2020-07-06 09:25 | IPN ---
DATE: 07/04/2020 SUBJECTIVE: Patient seen and examined at the bedside. Chart has been reviewed. Over the weekend, patient had severe pain of his hip and bilaterally shoulders requiring morphine I.V. drip. Patient had one episode of nausea and vomiting yesterday morning, none since. This morning, feels well, no nausea or vomiting or abdominal pain. Pain is 5/10 despite morphine drip overnight. He slept better though. PHYSICAL EXAMINATION: VITALS: Temperature 97.2, pulse 109, respiratory rate 19, blood pressure 101/52, 91% on room air. GENERAL: Patient is awake, alert, oriented to person, place and time. Answers questions appropriately. Lungs: Diminished, bibasilar crackles. . Heart: S1, S2, irregularly irregular and tachycardic. Abdomen: Soft, nontender, nondistended. Positive bowel sounds x4 quadrants. Extremities: 1+ pitting edema. Severe pain in the left hip with limited range of motion. Unable to perform full examination. LABORATORY DATA: White count 11.7, hemoglobin 10, hematocrit 33, platelet count 198,000. Sodium 134, potassium 4.2, chloride 93, bicarb 28, BUN 59, creatinine 4.22, glucose 111. Labs 07/04/2020 still pending. ASSESSMENT AND PLAN: This is a 75-year-old with history of chronic steroid use with avascular necrosis of the hip, chronic lower extremity infection, who presents with worsening pain. IMPRESSION: 1. 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 He had required Narcan during previous hospital admission at [facility] due to altered mental status. 2. Bilateral rotator cuff repair: Orthopedic follow-up as an outpatient. Pain management consulted. 3. End-stage renal disease: Maintained on dialysis Friday, Friday, Friday. Nephrology was consulted. 4. CHF: Compensated diastolic dysfunction. 5. CAD: On statin, Plavix, beta-faisal. 6. ABELARDO: Noncompliant with CPAP. 7. Hyperlipidemia: On statin. 8. Type 2 diabetes: On sliding scale. Consistent carb diet. 9. Gout: On Uloric. 10. Insomnia: As needed Trazodone. DISPOSITION: Awaiting ARU acceptance and pain management. [facility]
[2020-07-06 14:00] VITALS: BP 110/62
--- NOTE | 2020-07-06 14:06 | IPNPDOC ---
Date Seen The patient was seen on 07/06/20. Progress Note SUBJECTIVE: sedated on flexeril yesterday which was discontinued. pt was confused and unable to eat his meals, and missed outon physical therapy. pain is controlled with current dose of pain meds. no sob, 5-6/10 pain without meds. better when he sits on the recliner OBJECTIVE: PHYSICAL EXAMINATION VITALS SEE BELOW GENERAL: The patient is awake, alert and oriented to person, place and time, answering questions appropriately. no facial asymmetry NECK: No JVD or thyromegaly. no JVD, moist mucus membranes LUNGS: Diminished, clear in upper lobes. no wheezing HEART: S1 and S2. Sinus rhythm. No murmurs, rubs or gallops. ABDOMEN: Soft, obese, nontender, nondistended. Positive bowel sounds. no rebound or guarding EXTREMITIES: 1+ pitting edema bilaterally. Patient has limited range of motion of bilateral shoulders due to bilateral rotator cuff injury and decreased motionof left hip secondary to severe avascular necrosis. LABORATORY DATA: see below ASSESSMENT AND PLAN: This is a 75-year-old male with recent fracture due to avascular necrosis of the left hip from chronic steroid use, was evaluated in [place] by an orthopedic surgeon who recommended rehabilitation prior to surgical correction. Patient was brought into the Emergency Room due to polypharmacy and confusion with worsening left hip pain. Left hip acute on chronic pain due to avascular necrosis and fracture from chronic steroid use. [facility] had deferred surgery until after rehab. Bilateral rotator cuff tear. Endstage renal disease on maintenance HD Chronic diastolic heart failure, compensated. CAD. ABELARDO. Hyperlipidemia. Type 2 diabetes. Gout. Insomnia. PLAN: pt has been having a significant difficulty with ADLS due to hip pain and bilateral rotatoro cuff, and episodes of ams with flexeril and opioids despite multiple adjustments from pain management. pt is requiring 1 person assistance with standing and ambulation, and unable to fully use his b/l UE for support due to b/l rotator cuff injury. pt will not tolerate going in and out of his vehicle for dialysis. Nephrology managing inpt dialysis needs. pt is not safe for hospital discharge but not accepted to acute rehab unit. plan is to eventually discharge home with services, but will most likely do poorly and return in 1-2days for pain issues. will touch base with his SOS surgeon to coordinate discharge and to push for earlier surgical intervention or potential transfer, which would probably be unlikely. HR is tachycardic but premature atrial complexes, not afib w rvr. VS, I&O, 24H, Fishbone Vital Signs/I&O Vital Signs Date Time Temp Pulse Resp B/P (MAP) Pulse Ox O2 Delivery O2 Flow Rate FiO2 07/06/20 10:00 17 Room Air 07/06/20 09:01 113 116/59 07/06/20 06:00 97.8 90 I&O- Last 24 Hours up to 6 AM 07/06/20 06:00 Intake Total 1220 ml Output Total 2000 ml Balance -780 ml Laboratory Data 24H LABS Laboratory Tests 2 07/05/20 17:14: Nucleated Red Blood Cells % (auto) 0.0, Anion Gap 8, Glomerular Filtration Rate 26.1L, Calcium Level 8.9 CBC/BMP Laboratory Tests 07/05/20 17:14 ROSY YEUNG MD Jul 06, 2020 13:59
[2020-07-06 20:00] VITALS: BP 141/82
[2020-07-06] MEDS: ATORVASTATIN 20 MG TAB PO SCH (21:12)
[2020-07-06] MEDS: DULoxetine 30 MG CAP (CYMBALTA) PO SCH (21:13)
[2020-07-06] MEDS: LIDOCAINE 5% (LIDODERM) PATCH TD SCH (21:13)
[2020-07-07] MEDS: HYDROmorphone (DILAUDID) 4 MG TAB PO PRN (02:18)
[2020-07-07] MEDS: ALPRAZolam 0.25 MG TAB PO PRN (03:47)
[2020-07-07 06:00] VITALS: BP 117/65
[2020-07-07] MEDS: TORSEMIDE 20 MG TAB PO SCH ×2 (06:08→17:12)
[2020-07-07] MEDS: CLOPIDOGREL 75 MG TAB PO SCH (06:08)
[2020-07-07] MEDS: DOCUSATE SODIUM 100 MG CAP PO SCH ×2 (06:08→20:06)
[2020-07-07] MEDS: TAMSULOSIN 0.4 MG CAP PO SCH (06:08)
[2020-07-07] MEDS: MULTIVITAMINS/MINERALS THERAP 1 TAB PO SCH (06:08)
[2020-07-07] MEDS: HEPARIN SOD (PORCINE) 5000UNITS/ML 1ML VIAL/SYRINGE SC SCH ×2 (06:08→13:27)
[2020-07-07] MEDS: PANTOPRAZOLE 40MG TAB (PROTONIX) PO SCH (06:08)
[2020-07-07] MEDS: predniSONE 5 MG TAB PO SCH (06:09)
[2020-07-07] MEDS: CARVedilol 3.125 MG TAB PO SCH ×2 (06:09→20:06)
[2020-07-07] MEDS: GABAPENTIN 100 MG CAP PO SCH (06:10)
[2020-07-07] MEDS: [UNRECOGNIZED DRUG - OTHER] TOP SCH (06:11)
[2020-07-07] MEDS: SANTYL OINT 30GM TOP SCH (06:11)
[2020-07-07] MEDS: **NOTE PATIENT COMMENT** MISC XX SCH (06:11)
[2020-07-07] MEDS ORDERED: PERCOCET 5MG/325MG TAB PO PRN (09:45)
[2020-07-07] MEDS ORDERED: HYDROmorphone 2 MG TAB PO PRN (09:45)
[2020-07-07] MEDS: PERCOCET 5MG/325MG TAB PO PRN ×2 (13:25→20:25)
[2020-07-07] MEDS ORDERED: PERCOCET PO (16:13)
[2020-07-07 20:06] VITALS: BP 117/66
[2020-07-07] MEDS: LIDOCAINE 5% (LIDODERM) PATCH TD SCH (20:06)
[2020-07-07] MEDS: DULoxetine 30 MG CAP (CYMBALTA) PO SCH (20:06)
[2020-07-07] MEDS: ATORVASTATIN 20 MG TAB PO SCH (20:06)
[2020-07-07 20:27] VITALS: BP 117/66
--- NOTE | 2020-07-09 09:26 | IPN ---
DATE: 07/05/2020 SUBJECTIVE: Per nursing, patient has been a little bit more lethargic. His Dilaudid was increased to one to one and a half tablets for his severe pain. Morphine [employer]GE [employer]SEMBLER has been discontinued. Flexeril has been discontinued this morning due to concerns for altered mental status. The patient is sedated. PHYSICAL EXAMINATION: VITALS: Temperature 99.7, pulse 115, respiratory rate 15, blood pressure 114/54, 91% on room air. GENERAL: Patient is sedated. Opens his eyes, but does not answer questions. Lungs: Diminished. No wheezing or rales. Heart: S1, S2, irregular. Abdomen: Soft, nontender, nondistended. Extremities: No cyanosis, clubbing or pitting edema. LABORATORY DATA: The 07/04/2020 CBC and metabolic panel have been reviewed. Todays lab work is still pending. ASSESSMENT AND PLAN: 1. This is a 75-year-old male awaiting rehab placement, but was denied, therefore with plans to go home. Admitted due to worsening pain of the left hip due to avascular necrosis from chronic prednisone use. 2. Opiate induced constipation. 3. Opiate induced altered mental status. 4. Bilateral rotator cuff tear. 5. End-stage renal disease: On maintenance dialysis Friday, Friday, Friday. 6. CHF diastolic dysfunction. 7. CAD. 8. ABELARDO. 9. Hyperlipidemia. 10. Type 2 diabetes. 11. Gout. 12. Insomnia. PLAN: Patient is continued on all his home medications. Due to altered mental status, 6 mg of Dilaudid has been discontinued and patient's Flexeril has also been discontinued. Monitor for any worsening condition or CO2 retention. Patient is maintained on his other home medications; Plavix, Gabapentin, multivitamin, Tamsulosin, chronic prednisone, Protonix, Heparin subcutaneously, Coreg, Cymbalta and Torsemide. Dialysis needs per nephrology. Per social work, patient has been denied for acute rehab unit, therefore awaiting PT/OT clearance and discharge home. [facility]
--- NOTE | 2020-07-09 09:41 | IPN ---
DATE: 07/06/2020 SUBJECTIVE: Mr. Mckeon is seen this morning on his bedside. He underwent hemodialysis yesterday and he tolerated well this time. He was somewhat confused yesterday and he feels himself that he was quite confused yesterday. He is today back to about his baseline mentation. He denies any nausea, vomiting, dyspnea or chest pain. He still has pain in his left hip and pain management is following. PHYSICAL EXAMINATION: Temperature 97.8 degrees Fahrenheit, heart rate 113 per minute, respiratory rate 18 per minute, blood pressure 116/59 mmHg and oxygen saturation 90% on room air. Head is atraumatic. Neck supple and JVD difficult to be assessed sitting upright. Heart sounds are irregular and tachycardic. Lungs sound clear to auscultation bilaterally. Abdomen soft and nontender, and bowel sounds are normal. Extremities without any cyanosis or clubbing. He has compression stockings on his legs. Left arm AV fistula is patent. Neurologically, he is awake, alert and at his baseline mentation. PROBLEMS: 1. End-stage renal disease: Patient was dialyzed yesterday and next dialysis will be scheduled for tomorrow. His volume status is well compensated and electrolytes within normal range. No indication for dialysis today. 2. Anemia: His anemia has been stable and will continue to manage with dialysis. No intervention is needed at this point. 3. Hypertension: Blood pressure seems to be very well controlled. No changes in medications are being made today. 4. Left hip pain: Patient has chronic pain due to acetabular fracture. He is likely to require surgery and I have discussed this with him at length. I will also discuss with the hospitalist about possible referral to orthopedics in [place]. JESSY
--- NOTE | 2020-07-09 09:43 | IPN ---
DATE: 07/07/2020 SUBJECTIVE: Patient continues to complain of pain in his left hip despite p.o. Dilaudid causing adverse effects with increased sedation. He currently is very frustrated about not being able to do his surgery. We are awaiting acceptance from his orthopedic surgeon for transfer or outpatient elective surgery for the avascular necrosis of the hip. Per nursing, the patient had been increasingly sedated on p.o. Dilaudid for pain control and had missed working with physical therapy and most of his morning yesterday. PHYSICAL EXAMINATION: VITALS: Temperature 96.8, pulse 105, respiratory rate 16, blood pressure 117/65, 97% on room air. GENERAL: Awake, alert and oriented to person. Answering questions appropriately today. NECK: No JVD or thyromegaly. Moist mucous membranes. LUNGS: Diminished, but clear to auscultation. No wheezing or rales. HEART: S1, S2, sinus tachycardia. No murmurs, rubs or gallops ABDOMEN: Soft, nontender, nondistended, positive bowel sounds. EXTREMITIES: Limited range of motion of the left hip with 1+ pitting edema bilaterally. Shoulders have limited range of motion due to severe pain. Lower extremities with chronic wounds improving without any serosangeneous drainage. LABORATORY DATA: White count 10, hemoglobin 10, hematocrit 34, platelet count 206,000. Sodium 134, potassium 4, chloride 98, bicarb 28, BUN 20, creatinine 2.56, glucose 121. Laboratory data had been reviewed. ASSESSMENT AND PLAN: A 75-year-old with history of avascular necrosis of the left hip and chronic steroid use, follows with orthopedic surgeon at [facility], and was brought into the ER due to confusion due to polypharmacy for pain medications and worsening left hip pain secondary to avascular necrosis of the hip. IMPRESSION: 1. Left hip acute on chronic pain due to avascular necrosis of the hip and fracture from chronic steroid use. 2. Bilateral rotator cuff tear. 3. End-stage renal disease on maintenance hemodialysis. 4. Chronic lower extremity wounds. 5. Chronic diastolic heart failure. 6. Peripheral arterial disease of bilateral lower extremities. 7. CAD. 8. ABELARDO. 9. Hyperlipidemia. 10. Type 2 diabetes. 11. Gout. 12. Insomnia and deconditioning. PLAN: Patients activities of daily living are severely limited. At this time, I will touch base with patient's orthopedic surgeon to try to plan for hospital discharge and elective surgery. Patient will do poorly if he is discharged home, will not be able to come in and out of the car in order to do dialysis. Therefore, patient will be changed to ALC status. We will restart 1-2 tablets of Percocet and decrease Dilaudid to 2 mg for breakthrough pain at this time. He is being overly sedated with his pain medications, therefore would change to ALC status. Per family request, will try to touch base with the patient's orthopedic surgeon in [place] in order to see if we can expedite patients surgery to deal with his left hip and to improve his ADLs. If they can do this, it would be a more feasible plan than to discharge him. He would most likely quickly return to the hospital for readmission for his severe pain. For now, patient will be changed to ALC status. JESSY
--- NOTE | 2020-07-15 17:19 | ECGEPIP ---
[facility] Test Date: 2020-07-04 Pat Name: VEDA BARRERA Department: Room: [place] [address] Gender: Male Wirer Passenger Car: JENNIFFER : 1945 Requested By: ROSY Beavers Order Number: [id number] Reading MD: Naeem Diaz Measurements Intervals [place] Rate: 109 P: 52 GA: 192 QRS: -14 QRSD: 158 T: 14 QT: 339 QTc: 457 Interpretive Statements SINUS TACHYCARDIA WITH OCCASIONAL SUPRAVENTRICULAR PREMATURE COMPLEXES INDETERMINATE AXIS- LA CONDUCTION DISTURBANCES RIGHT BUNDLE BRANCH BLOCK R/O PRIOR IWMI SEE SCANNED DOWNTIME REPORT
--- NOTE | 2020-07-18 14:05 | ECGEPIP ---
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 MULTIFOCAL ATRIAL TACHYCARDIA VENTRICULAR PREMATURE COMPLEXES RIGHT BUNDLE BRANCH BLOCK INFERIOR MYOCARDIAL INFARCTION, PROBABLY OLD ABNORMAL ECG SEE SCANNED DOWNTIME REPORT
--- NOTE | 2020-07-18 14:08 | ECGEPIP ---
[facility] Test Date: 2020-06-29 Pat Name: VEDA BARRERA Department: Room: [place] [address] Gender: Male Hat Measurer: : 1945 Requested By: ALEX GONZALEZ Order Number: [id number] Reading MD: Adama Oneill Measurements Intervals [place] Rate: 102 P: MT: 0 QRS: -22 QRSD: 149 T: 4 QT: 393 QTc: 513 Interpretive Statements MULTIFOCAL ATRIAL TACHYCARDIA RIGHT BUNDLE BRANCH BLOCK ANTERIOR MYOCARDIAL INFARCTION, OF INDETERMINATE AGE ABNORMAL ECG SEE SCANNED DOWNTIME REPORT
--- NOTE | 2020-07-25 07:41 | REP ---
LEFT HUMERUS CLINICAL: Left arm pain. TECHNIQUE: AP and lateral views of the left humerus. FINDINGS: There is flattening/blunting along the medial aspect of the humeral head, which remains unchanged as compared to prior examination and suggests old injury. The humerus is otherwise intact, and no acute fracture or dislocation is appreciated. IMPRESSION: Chronic changes to the proximal left humeral head. No acute fracture or dislocation. AKID
--- NOTE | 2020-07-25 07:43 | REP ---
LEFT FOREARM CLINICAL: Left arm pain. TECHNIQUE: AP and lateral views of the left forearm. FINDINGS: Arthritic changes at the elbow and wrist are suggested. No obvious acute fracture or dislocation identified. No subcutaneous emphysema or foreign body. Vascular calcification is noted. IMPRESSION: Degenerative changes. No obvious acute fracture or dislocation. MTDD
--- NOTE | 2020-07-25 07:43 | REP ---
LEFT HAND SERIES: HISTORY: Left hand swelling. TECHNIQUE: AP, lateral, bilateral oblique views of the left hand. FINDINGS: No acute fracture or dislocation. Arthritic changes primarily involving the first and second carpometacarpal joints with subchondral sclerosis/heterogeneity, joint space narrowing and surrounding subtle osteophyte formation. Interphalangeal joints demonstrates mild age related degenerative changes including subchondral sclerosis with joint space narrowing. There is no evidence for acute fracture or dislocation. No subcutaneous emphysema or foreign body. IMPRESSION: Degenerative changes primarily involving the first and second carpometacarpal joints and to a lesser extent the interphalangeal joints. MTDD
--- NOTE | 2020-07-25 07:45 | REP ---
LEFT SHOULDER SERIES: HISTORY: Left shoulder pain. COMPARISON: 05/03/20 TECHNIQUE: Internal rotation, external rotation and Y-views of the left shoulder. FINDINGS: Mild age related osteopenia and mild degenerative changes at the acromioclavicular joint including subchondral heterogeneity and subtle spurring. The subacromial space is relatively normal. The glenoid rim appears relatively normal. There is flattening and underlying sclerosis involving the medial aspect of the humeral head similar to prior examination, suggesting old impaction injury. No obvious acute fracture or dislocation. IMPRESSION: Findings suggesting old impaction injury of the humeral head. No acute fracture or dislocation. MTDD
--- NOTE | 2020-07-25 12:09 | DSES ---
DATE OF ADMISSION: 06/23/2020 DATE OF DISCHARGE: 07/07/2020 CONSULTANTS: Dr. Carrasco, Dr. Hope, family law mediator, pain management service, Tatianna Zheng. PRIMARY DISCHARGE DIAGNOSES: 1. Avascular necrosis of the left hip secondary to chronic steroid use. 2. End stage renal disease, on maintenance dialysis. 3. Congestive heart failure with preserved ejection fraction. 4. History of coronary artery disease. 5. Obstructive sleep apnea, noncompliant with continuous positive airway pressure. 6. Hyperlipidemia. 7. [id number] diabetes mellitus. 8. Gout. 9. History of chronic rotator cuff tear and dislocation of the left shoulder. 10. Chronic lower extremity edema with chronic venous ulcers, well healed. No signs of cellulitis. Negative for deep venous thrombosis. DISCHARGE MEDICATIONS: - Percocet 5/325 one to two tablets every 4 hours as needed for pain - albuterol sulfate 2.5 every 2 as needed for shortness of breath - ProAir HFA two puff every 4 as needed - atorvastatin 20 mg every night - Calcitriol 0.25 mcg three times a week - calcium with vitamin D one tablet every night - Coreg 3.125 twice a day - vitamin D 100 mcg daily - collagenase topically daily - duloxetine 60 mg every night - Uloric 80 mg every 2 days - Dilaudid 4 mg three times a day as needed for breakthrough pain - multivitamin one tablet daily - Protonix 40 daily - MiraLax daily as needed - prednisone 5 daily - Spiriva Respimat two puffs inhaled daily - torsemide 20 mg twice a day - coenzyme Q 200 mg twice a day ACCEPTING PHYSICIAN: Dr. Vines REASON FOR TRANSFER: Total hip replacement for left avascular necrosis of the hip with severe limitation of activities of daily living due to chronic bilateral rotator cuff tear and for total hip replacement. ORTHOPEDIC SURGEON REFERRAL: Dr. Cesar [facility]RSE: This is a 75-year-old male with a history of chronic prednisone use, avascular necrosis of the hip. Patient is on chronic prednisone and has developed left hip fracture secondary to avascular necrosis. Was sent to acute rehabilitation unit (ARU) after a hospitalization at [facility] ([facility] and was discharged from the acute rehabilitation unit on June 15 and was doing well at home without any recurrent falls and re-presented June 23 due to worsening pain of the left hip, inability to perform activities of daily living (ADLs). Patient was admitted for evaluation of pain and management. He was evaluated by physical therapy and occupational therapy and ARU screen. Insurance declined acute rehabilitation stay, and patient remained for pain control. He was found to have polypharmacy with acute encephalopathy due to confusion and side effects of the opioids while on Dilaudid and Robaxin. These were discontinued, and he was kept on his maintenance dialysis sessions Friday, Friday, Friday. Pain management center was consulted. Recommended Dilaudid 4 mg eery 6 as needed for breakthrough pain and morphine 15 mg twice a day with no significant improvement. Patient had episodes of severe pain throughout the night, and therefore morphine had been discontinued. Patient was then changed to hydromorphone 4 mg every 4 hours for moderate pain and for severe pain 6 mg every 4 along with cyclobenzaprine 5 mg every 8 hours with over-sedation, missing physical therapy sessions, and unable to eat his breakfast due to over- sedation Flexeril was then discontinued, and he was placed on one to two tablets of Percocet every 4 hours as needed along with breakthrough pain medications, hydromorphone 2 mg every 4 for breakthrough pain with improvement. Due to denial by insurance for acute rehabilitation stay at [facility], patient has been working with physical therapy with plans to discharge home with services. Due to bilateral rotator cuff injury and left shoulder tear, he is unable to fully perform and has been severely limited with his ADLs. It was decided by the patient and the patient's that they will take the risk of infection, blood clot, sepsis with hip surgery and opted to be transferred to [place] for surgical intervention of the left hip due to severe limitation of his ADLs in light of chronic bilateral rotator cuff injury. At this time patient has had no acute issues aside from acute encephalopathy caused by opiates with high dose given, 4-6 mg of Dilaudid for pain. He is now significantly improved on Percocet with breakthrough pain being given only with lower dose of Dilaudid at 2 mg. Chronic lower extremity ulcers are well healed. PHYSICAL EXAMINATION: Temperature 96.8, pulse 105, respiratory rate 18, blood pressure 122/62, 97% on room air. GENERAL: Awake, alert, oriented to person, place, and time INCOMPLETE MTDD
== END 2020-07-07 20:27 | disposition short-term general hospital (02) | DRG 559 ==
LOC: M ED 10:47 → M ED INP 15:40 → M MSPAV 17:49
PROVIDERS: ADMIT Internal Medicine; ATTEND General Practice
PROC: 5A1D70Z Performance of Urinary Filtration, Intermittent, Less than 6 Hours Per Day (ICD-10-PCS; principal; 2020-06-26)
DX: M84.452D Pathological fracture, left femur, subsequent encounter for fracture with routine healing (principal); N18.6 End stage renal disease; I50.32 Chronic diastolic (congestive) heart failure; I25.110 Atherosclerotic heart disease of native coronary artery with unstable angina pectoris; I13.2 Hypertensive heart and chronic kidney disease with heart failure and with stage 5 chronic kidney disease, or end stage renal disease; M25.552 Pain in left hip; J98.4 Other disorders of lung; G47.33 Obstructive sleep apnea (adult) (pediatric); M10.9 Gout, unspecified; E11.22 Type 2 diabetes mellitus with diabetic chronic kidney disease; E11.51 Type 2 diabetes mellitus with diabetic peripheral angiopathy without gangrene; E87.6 Hypokalemia; K59.09 Other constipation; R41.82 Altered mental status, unspecified; T40.2X5A Adverse effect of other opioids, initial encounter; T48.1X5A Adverse effect of skeletal muscle relaxants [neuromuscular blocking agents], initial encounter; D63.1 Anemia in chronic kidney disease; Z85.51 Personal history of malignant neoplasm of bladder; Z99.2 Dependence on renal dialysis; Z91.19 Patient's noncompliance with other medical treatment and regimen; Z79.52 Long term (current) use of systemic steroids; Z79.899 Other long term (current) drug therapy; Z88.0 Allergy status to penicillin; Z88.1 Allergy status to other antibiotic agents; Z88.6 Allergy status to analgesic agent; Z20.828 Contact with and (suspected) exposure to other viral communicable diseases

== ENCOUNTER → 2020-09-25 | Outpatient (REF) | payer MEDICARE, OTHER ==
[~2020-09-25] MED LIST changes: -CLIN300C5 PO; +CLIN300C6 PO; +COLC0.6T47 PO; -COLC1TAB13 PO; +FAMO1TAB25 PO; +GABA-1171 PO; +HYDR4TAB PO; +METH1TAB40 PO; +MORP-69; +PANT-23 PO; +PEG1POW PO; +PEGPOW PO
== END ==
LOC: M SMT 13:26
PROVIDERS: ATTEND Urology
DX: C67.9 Malignant neoplasm of bladder, unspecified (principal)

== ENCOUNTER → 2020-10-03 | Outpatient (CLI) | payer MEDICARE, OTHER ==
[~2020-10-03] MED LIST changes: +ISOVUE-300 61% 50ML VIAL As Ordered ONE; +LIDOCAINE 1% MDV 20ML VIAL As Ordered ONE; +MIDAZOLAM INJ 2MG/2ML VIAL (J2250 PER 1MG) As Ordered ONE; +fentaNYL 100 MCG/2 ML INJECTION (J3010) As Ordered ONE
--- NOTE | 2020-10-03 12:30 | ROOPDOC ---
[facility] Report Of Operation Report of Operation DATE OF PROCEDURE: 10/03/20 PREPROCEDURE DIAGNOSES: Atherosclerosis of the [place] arteries with nonhealing wound right foot POSTPROCEDURE DIAGNOSES: Same PROCEDURE: 1. Ultrasound-guided access left common femoral artery 2. Aortoiliofemoral arteriogram 3. Selection right common femoral artery and right lower extremity arteriogram 4. Cross chronic total occlusion right SFA was selection right popliteal artery and right lower extremity runoff to the foot 5. Angioplasty right superficial femoral artery with a 5 x 200 [place] balloon 6. Stent right superficial femoral artery with a 6 x 150, 6 x 40, 6 x 150 Innova stent and post-dilation with 6 x 200 [place] balloon 7. Completion arteriogram right lower extremity 8. Attempts Mynx closure left common femoral artery, failure of closure device and manual pressure held 1 hour SURGEON: Zeferino Galindo MD ANESTHESIA: Local anesthesia 5 mL lidocaine. Moderate intravenous conscious sedation was supervised by Dr. Galindo. The patient was independently monitored by registered nurse and signed the Department of radiology using automated blood pressure, EKG, and pulse oximetry. The detailed sedation record is permanently stored in the hospital information system. The following is a brief sedation record: Start time 09:48, stop time 11:18, Versed 0.5 mg IV, fentanyl 75 g IV, heparin 4000 units IV. CONTRAST: 48 mL Isovue-300 INDICATION FOR PROCEDURE: This is a very pleasant 75-year-old patient with end- stage renal disease and atherosclerosis of the [place] arteries with a nonhealing wound of the right foot. Risks benefits and alternatives to an arteriogram potential intervention were explained to the patient and his . We had many concerns prior to doing this procedure. We talked to the patient and his about the concerns we had about him being able to lay flat due to chronic severe back pain and shoulder pain, his cardiopulmonary status remaining stable due to chronic severe cardiopulmonary disease, and we expressed these concerns multiple times. We made it very clear to the patient and his that he had to lay flat not only for the procedure, but hold still for the procedure as well. Then, he would have to lay flat minimum of 4 hours after the procedure as well. He would have to hold relatively still at that point as well. Despite all of her concerns that we addressed with them, they emphatically felt the patient would be able to tolerate the procedure. Informed consent was obtained. INTERPRETATION: 1. The distal aorta and the common iliac arteries, hypogastric arteries, next in her iliac arteries are mildly calcified but widely patent. No significant stenoses are noted. Inflow is intact. 2. The right common femoral artery is mildly calcified but has good runoff into the profunda and the proximal SFA. Just distal to the origin, heavy plaque starts to be noticeable throughout the proximal SFA, and then there are several near occlusions in the mid SFA, and then it completely occludes into areas at Musa's canal, then reconstitutes through collaterals, and has heavy plaque through the proximal popliteal artery, but then fairly wide outflow through the distal popliteal artery into 3 tibial vessels. Although there is some mild disease in the right anterior tibial artery, there is good flow intact throughout. The dorsal pedis artery is very small and provides minimal outflow to the foot. The posterior tibial artery is large and has rapid flow all the way to the distal foot and collateralizes through the pedal arches and is the main outflow to the foot. There is also some flow through a widely patent peroneal artery into some collaterals at the ankle that also supply the dorsal foot. 3. After crossing the chronic total occlusion in the right superficial femoral artery, we confirmed we were in the true lumen with an arteriogram at the popliteal artery distally and a runoff was performed, see above. 4. After angioplasty of the superficial femoral artery with a 5 x 200 [place] balloon, there was certainly improvement in flow but still significant ectasia flow-limiting stenoses and dissections in the area heaviest bulky calcified plaque. After stenting and post-dilating the right SFA, there is widely patent flow with no significant residual stenoses, no dissections, no extravasation, no embolizations on runoff. There is rapid 3 vessel flow to the foot. REPORT OF OPERATION: The patient was brought the angiographic suite in stable condition. His bilateral groins were prepped and draped in sterile fashion. He immediately started to complain of low back discomfort, and padding was placed under his knees to try to relieve pressure on his back. Initially, the patient said this was helpful. His bilateral groins were prepped and draped in sterile fashion. A timeout was performed. Sedation was administered without complication. With sedation, the patient became very disinhibited. He immediately started jerking his legs and when we asked him to hold still, he admitted that he did not know he was even moving his legs. These movements were not subtle, they were enough to make is worried he was going to fall off the table. We woke the patient up enough that he could participate in holding still. Local anesthesia was administered to the skin and subcutaneous tissue over the left common femoral artery. A microneedle was used to access the artery under ultrasound guidance. A wire was passed through this access and the needle was removed. A 4 Khmer sheath was placed and flushed with saline. A Glidewire and conjugate catheter were used to access the distal aorta under fluoroscopic guidance. Aortoiliofemoral arteriograms were performed. Please see interpretation above. We then went up and over the bifurcation with a Glidewire in the catheter to select the right superficial femoral artery. Right lower extremity arteriograms were performed. Was challenging to obtain a runoff from this access due to the occlusion in the superficial femoral artery and because the patient could not hold still for any length of time. We therefore felt we would obtain a better distal runoff image after crossing the occlusion in the right superficial femoral artery. We then exchange the sheath over wire for a 6 x 45 destination sheath and flushed the sheath with saline. 4000 units of heparin was given and allowed to circulate. Kal[place] catheter was used along with a Glidewire to cross through the occlusion in the right SFA. This was extremely challenging calcified long lesion to cross, and took a bit of time. While trying to cross the lesion, the patient still could not be redirected to hold still. He was constantly moving and jerking his legs. This made a challenging procedure extremely time consuming. Eventually we were able to cross through the lesion and arteriograms from the popliteal artery distally confirmed we were in the true lumen and revealed that we had 3 vessel runoff to the foot. We then passed a 5 x 200 [place] balloon across the lesion and serial Michell plasties were performed from the proximal SFA to the proximal popliteal artery for three- minute inflations. Following this, we did have some improvement flow, but there were still multiple flow-limiting stenoses in areas of heaviest occlusion and plaque, along with small dissections, and ectasia. We then selected a 6 x 150 Innova stent. It was difficult to advance the stent due to the patient's constant movement, but eventually were able to get the stent in the correct position at the proximal popliteal through the distal SFA. We deploy the stent with the patient in constant motion, despite our best efforts to hold him still. This is extremely challenging. We then selected a another 6 x [address] a stent with the intention of a 1 cm overlap with the distal stent, but the patient jerked and moved throughout and after it was deployed we noted that there was a small gap between the stents. We then placed a 6 x 40 stent to bridge the gap in the mid SFA. These were postdilated first with a 5 x 200 [place] balloon, that but there was still some residual stenosis was postdilated again with a 6 x 200 [place] balloon. Following this, there is widely patent flow through the SFA, and good runoff to the lower leg. This was extremely challenging and took quite a bit of time due to the patient not being able to hold still for imaging, not being able to hold still for intervention, complaining about pain despite additional analgesia, frequently moving so violently that we were afraid he was can follow off the table, and consistently telling his that he was in severe pain from his lower back and that none of the analgesia was even helping in the least bit. We offered more analgesia and he did not feel that was going to be helpful. He just said he wanted to sit up. We kept reminding him he couldn't sit up and he kept trying to sit up. This is dangerous in the sense that it puts pressure on the groin access site and can cause significant bleeding and can also enlarge the arteriotomy with motion of the sheath. We continue to reassure the patient and tried to get through the procedure as quickly as possible, but his motion made everything take at least twice as long. We then were planning to deploy a Mynx closure device. We exchan ge the sheath for short 6 Khmer sheath over the wire and flushed the sheath with saline. The Mynx closure device was advanced easily balloon was inflated, we deployed the Mynx in the standard fashion, and advance the plug and held this in place for 30 seconds. Following this, the minx was went to rest for 15 seconds as is our protocol, and then pressure was held at the groin access site while the balloon was deflated. We remove the balloon and then upon removal of the last piece, the minx plug was actually stuck to the piece as we removed it. We then help manual pressure for 30 minutes, still had some oozing from the area, and hold pressure another 30 minutes. Following this, we had good hemostasis and the patient was taken to recovery in stable condition. He complained and moved throughout the procedure and while holding pressure, and continues to complain in recovery about back pain, shoulder pain, leg pain, discomfort, and has a complete inability to hold still. I am very concerned about bleeding at the groin, so we're going to watch him closely over the next 5 hours to make sure he has good hemostasis before he goes home. I spoke with the patient's and let her know how challenging the procedure was and how difficult it was for the patient to tolerate. I made her very aware of the risks to proceeding with an arteriogram and intervention since he cannot hold still, cannot be redirected to hold still, and cannot tolerate his multitude sources of pain to lay flat. We also noticed a little bit more labored breathing towards the end of the procedure, and I think it is very difficult with his poor cardiopulmonary status to be flat for that long. She says she understands. ESTIMATED BLOOD LOSS: Approximately 15 mL. COMPLICATIONS: None. PLAN: The patient will be monitored 5 hours postprocedure. He can resume his home diet and medications. We will see him back in a week to check his groin access site and his perfusion. I discussed with the patient and his that I do not believe he can tolerate the contralateral arteriogram. He did not tolerate today's procedure well at all. Additional sedation made him more disinhibited, which actually increased his movements. With less sedation he was in near constant pain, and despite our attempts to find some sort of balance, there was nothing we can do to make the patient comfortable. He was in near constant agony from back pain, shoulder pain, leg pain and generalized anxiety about laying flat. I do not feel it is lyons to try to proceed with an arteriogram on the left lower extremity at this time. I do not think the patient can tolerate the procedure or the bedrest following the procedure. He also feels he does not want to proceed with the left lower extremity after what he went through today. We can revisit this in clinic depending on his progress. We appreciate the opportunity to participate in the care of this patient. ZEFERINO GALINDO MD Oct 03, 2020 12:30
[2020-10-03 17:00] VITALS: BP 150/70
== END ==
LOC: M IRPRO 08:42
PROVIDERS: ATTEND Surgery Vascular Surgery
DX: I70.235 Atherosclerosis of native arteries of right leg with ulceration of other part of foot (principal); L97.519 Non-pressure chronic ulcer of other part of right foot with unspecified severity; I70.92 Chronic total occlusion of artery of the extremities; G47.33 Obstructive sleep apnea (adult) (pediatric); E11.22 Type 2 diabetes mellitus with diabetic chronic kidney disease; I13.2 Hypertensive heart and chronic kidney disease with heart failure and with stage 5 chronic kidney disease, or end stage renal disease; I50.9 Heart failure, unspecified; J44.9 Chronic obstructive pulmonary disease, unspecified; N18.6 End stage renal disease; M24.412 Recurrent dislocation, left shoulder; M54.9 Dorsalgia, unspecified; Z79.01 Long term (current) use of anticoagulants; Z79.899 Other long term (current) drug therapy; Z85.51 Personal history of malignant neoplasm of bladder; Z88.0 Allergy status to penicillin; Z88.6 Allergy status to analgesic agent; Z87.891 Personal history of nicotine dependence; Z99.2 Dependence on renal dialysis
CPT/HCPCS: 37226; 75630; 75774; 99152; 99153; C1725; C1760; C1769; C1876; C1887; C1894; J1644; J2250; J3010; Q9967

== ENCOUNTER → 2020-11-14 | Outpatient (CLI) | payer MEDICARE, OTHER ==
[~2020-11-14] MED LIST changes: -CLIN150C14 PO; +CLIN150C15 PO; -ISOVUE-300 61% 50ML VIAL As Ordered ONE; -LIDOCAINE 1% MDV 20ML VIAL As Ordered ONE; -MIDAZOLAM INJ 2MG/2ML VIAL (J2250 PER 1MG) As Ordered ONE; -fentaNYL 100 MCG/2 ML INJECTION (J3010) As Ordered ONE
--- NOTE | 2020-11-14 11:12 | REP ---
INDICATION: ATH GENO ART OF EXT WITH CLAUDICATION,KIMBERLY LEGS. COMPARISON: Comparison study April 21, 2020.. TECHNIQUE: Bilateral lower extremity arterial Doppler ultrasound. The study is rather limited today due to patient's apparently involuntary leg shaking and spasm affecting both legs, particularly when touched with the ultrasound probe. FINDINGS: Ankle brachial indices could not be accomplished due to leg spasm and movement in response to probe contact. Biphasic and some monophasic waveforms are noted in the right lower extremity. The tibial-peroneal trunk and distal posterior tibial artery could not be seen on the right due to movement. The left lower extremity arteries could not be visualized a below the popliteal for the same reason. Monophasic waveforms are noted throughout the visualized left lower extremity arteries. Right lower extremity arterial Doppler velocity chart: Right BUSINESS SUPPORT PROFESSIONAL PSV 209 cm/S Profundal 182 Proximal SFA 10/28/2046 Mid SFA 166 Distal SFA 132 Popliteal 60 Proximal ROSINA 31 Tibial-peroneal trunk not seen Proximal FRUIT STUFFER 119 Distal FRUIT STUFFER not seen Distal ROSINA 60 Left lower extremity arterial Doppler velocity chart: Left BUSINESS SUPPORT PROFESSIONAL PSV 158 cm/S Profundal 177 Proximal SFA 117 Mid SFA 326 Distal SFA 54 Popliteal 42 Proximal ROSINA not seen Tibial-peroneal trunk not seen Proximal FRUIT STUFFER not seen Distal FRUIT STUFFER 8 not seen Distal ROSINA not seen IMPRESSION: Limited bilateral lower extremity arterial Doppler ultrasound as above. <Electronically signed by Eyad Kumar > 11/14/20 1191
== END ==
LOC: M RAD 10:02
PROVIDERS: ATTEND Physician Assistant
DX: I70.213 Atherosclerosis of native arteries of extremities with intermittent claudication, bilateral legs (principal); I70.239 Atherosclerosis of native arteries of right leg with ulceration of unspecified site

== ENCOUNTER → 2020-12-19 | Outpatient (CLI) | payer MEDICARE, OTHER ==
[~2020-12-19] MED LIST changes: +CVS1CAP2 PO; +IBUP1TAB5 PO; -IBUP40TA PO; +ISOVUE-300 61% 50ML VIAL As Ordered ONE; +LIDOCAINE 1% MDV 20ML VIAL As Ordered ONE; +METH-1164 PO; -METH1TAB40 PO; +MIDAZOLAM INJ 2MG/2ML VIAL (J2250 PER 1MG) As Ordered ONE; +MIRT1TAB16 PO; -NALD0.2T PO; -PEG1POW PO; -PEGPOW PO; +POLY17PO18 PO; +POLY510P14 PO; +SYMP0.2T2 PO; +fentaNYL 100 MCG/2 ML INJECTION (J3010) As Ordered ONE
--- NOTE | 2020-12-19 15:03 | ROOPDOC ---
[facility] Report Of Operation Report of Operation DATE OF PROCEDURE: 12/19/20 PREPROCEDURE DIAGNOSES: End-stage renal disease with increased swelling left upper extremity POSTPROCEDURE DIAGNOSES: Same PROCEDURE: 1. Ultrasound guided access left cephalic vein 2. Left upper extremity fistulogram and central venogram 3. Angioplasty proximal cephalic vein into subclavian vein with 8 x 20 cutting balloon and 9 x 80 [place] balloon 4. Completion venogram SURGEON: Zeferino Galindo MD ANESTHESIA: Local anesthesia 7 mL lidocaine. Moderate intravenous conscious sedation was supervised by Dr. Galindo. The patient was independently monitored by a registered nurse and signed to the Department of radiology using automated blood pressure, EKG, and pulse oximetry. The details sedation record is permanently stored in the hospital information system. The following is a brief sedation record: Start time 14:21, stop time 14:31, Versed 0.5 mg IV. CONTRAST: 20 mL Isovue-300 INDICATION FOR PROCEDURE: This is a very pleasant 75-year-old gentleman with end-stage renal disease currently dialyzing with a left brachiocephalic AV fistula. He has had increased swelling in the arm and increased venous pressures. Risks benefits alternatives to a fistulogram potential intervention were explained to the patient and he is agreeable to proceed. Informed consent was obtained. INTERPRETATION: 1. Ultrasound reveals a widely patent AV anastomosis. Images were saved. 2. The fistulogram of the left upper extremity reveals a widely patent cephalic vein that narrows slightly at the proximal shoulder and has a near occlusion 2 cm from the junction with the subclavian vein. The subclavian vein is widely patent but has a 30% narrowing at the thoracic outlet and the central veins are otherwise widely patent. 3. After angioplasty with a cutting balloon along the entire length of the proximal cephalic vein and at the thoracic outlet subclavian vein, both haven't improved flow and there is definitely an improvement thrill in the fistula, but some residual stenosis remains. After exchanging and angioplasty a second time with a 9 x 80 [place] balloon for three-minute inflations, there is a marked improvement in flow, no extravasation, no significant residual stenosis, and an excellent thrill and the fistula. REPORT OF OPERATION: The patient was brought to the angiographic suite in stable condition. His left upper extremity was prepped and draped in a sterile fashion. A timeout was performed. Local anesthesia was a lace pinner to the skin and subcutaneous tissue over the cephalic vein near the AV anastomosis. The AV anastomosis was examined with ultrasound and found to be widely patent, please see above. We then accessed the vein under ultrasound guidance and a wire was passed through this access and the needle was removed and a 4 [place] sheath was placed and flushed with saline. A Glidewire was advanced through this in the central system. A fistulogram and central venogram were performed, please see interpretation above. Next, a straight the sheath over the wire for a 7 [place] sheath and flushed the sheath was saline. We exchange the wire for 018 Glidewire advantage and advances into the central system under fluoroscopic guidance. An 8 x 20 cutting balloon was advanced across the proximal cephalic vein and serial angioplasties were performed along the entire length of the proximal vein. We then advanced it to the thoracic outlet within the subclavian vein and several other angioplasties were performed. We did have improvement following this but still residual stenosis so we exchange the balloon over the wire for 9 x 80 [place] balloon and to three-minute inflations were performed first across the cephalic vein and then across the subclavian vein. Following this, there is excellent flow through to the central system, no significant residual stenosis, and there was an excellent thrill and the fistula. No extravasation was noted. We remove the balloon and the wire. [id number] Prolene suture was placed at the sheath site in the sheath was removed upon securing the suture. Good hemostasis was noted and sterile dressings were applied. Pressure was held and following this the patient expressed concern about the difficulties some nurses have with cannulation. I therefore marked the fistula on the skin using ultrasound and also noted areas with the fistula is a little bit deeper than other areas. Hopefully this will help with cannulation. A Tegaderm was placed over the [place] to keep them from washing off. We then transfer the patient to [facility] in stable condition. He tolerated the procedure and the sedation well. ESTIMATED BLOOD LOSS: Approximately 5 mL. COMPLICATIONS: None PLAN: Okay to use AV fistula for dialysis. Okay to resume home diet and medications. We appreciate the opportunity to participate in the care of this patient. ZEFERINO GALINDO MD Dec 19, 2020 15:03
[2020-12-19 15:15] VITALS: BP 136/63
== END ==
LOC: M IRPRO 13:15
PROVIDERS: ATTEND Surgery Vascular Surgery
DX: T82.590A Other mechanical complication of surgically created arteriovenous fistula, initial encounter (principal); N18.6 End stage renal disease; E11.22 Type 2 diabetes mellitus with diabetic chronic kidney disease; E78.00 Pure hypercholesterolemia, unspecified; F41.9 Anxiety disorder, unspecified; I13.2 Hypertensive heart and chronic kidney disease with heart failure and with stage 5 chronic kidney disease, or end stage renal disease; I50.9 Heart failure, unspecified; I70.239 Atherosclerosis of native arteries of right leg with ulceration of unspecified site; J44.9 Chronic obstructive pulmonary disease, unspecified; K21.9 Gastro-esophageal reflux disease without esophagitis; X58.XXXA Exposure to other specified factors, initial encounter; Z79.899 Other long term (current) drug therapy; Z85.51 Personal history of malignant neoplasm of bladder; Z87.891 Personal history of nicotine dependence; Z88.0 Allergy status to penicillin; Z88.1 Allergy status to other antibiotic agents; Z88.6 Allergy status to analgesic agent; Z96.1 Presence of intraocular lens; Z98.41 Cataract extraction status, right eye; Z98.42 Cataract extraction status, left eye; Z99.2 Dependence on renal dialysis
CPT/HCPCS: 36902; 36907; 99152; C1725; C1729; C1769; C1894; J1644; J2250; J3010

== ENCOUNTER 2021-02-05 21:07 | Inpatient (IN) | payer MEDICARE, OTHER ==
[~2021-02-05] VITALS: Ht 165.1 cm; Wt 94.9 kg
[~2021-02-05 21:07] MED LIST changes: -ISOVUE-300 61% 50ML VIAL As Ordered ONE; -LIDOCAINE 1% MDV 20ML VIAL As Ordered ONE; -MIDAZOLAM INJ 2MG/2ML VIAL (J2250 PER 1MG) As Ordered ONE; -fentaNYL 100 MCG/2 ML INJECTION (J3010) As Ordered ONE
[2021-02-05 22:11] LABS: BASO # 0.1 10^3/uL (0.0-0.2); BASO % 0.6 % (0.0-1.0); EOS % 0.1 % (0.0-3.0); HEMATOCRIT 35.8 % (42.0-52.0); HEMOGLOBIN 10.7 g/dl (13.5-17.5); LYMPH % 5.4 % (24.0-44.0); MEAN CORPUSCULAR HEMOGLOBIN 31.8 pg (27.0-33.0); MEAN CORPUSCULAR HGB CONC 29.9 g/dl (32.0-36.5); MEAN CORPUSCULAR VOLUME 106.2 fl (80.0-96.0); MONO # 1.4 10^3/uL (0.0-0.8); MONO % 7.7 % (2.0-8.0); NEUTROPHILS # 14.5 10^3/uL (1.5-8.5); NEUTROPHILS % 81.2 % (36.0-66.0); PLATELET COUNT, AUTOMATED 214 10^3/uL (150-450); RED BLOOD COUNT 3.37 10^6/uL (4.30-6.10); VENOUS BASE EXCESS -6.2 (-2.0-2.0); VENOUS HCO3 24.5 MEQ/L (23.0-27.0); VENOUS O2 SATURATION 74.3 % (60.0-80.0); VENOUS PARTIAL PRESSURE CO2 80.1 mmHg (38.0-50.0); VENOUS PARTIAL PRESSURE O2 50.9 mmHg (30.0-50.0); VENOUS PH 7.104 UNITS (7.330-7.430); WHITE BLOOD COUNT 17.9 10^3/uL (4.0-10.0)
--- NOTE | 2021-02-05 22:35 | REPVR ---
PROCEDURE INFORMATION: Exam: XR Chest Exam date and time: 02/05/21 (9:47pm) Age: 75 years old Clinical indication: Cough and dyspnea TECHNIQUE: Imaging protocol: Portable CXR Views: 1 view COMPARISON: Portable CXR of 06/28/20 FINDINGS: Comparison is made with a portable CXR done on 06/28/20. Suboptimal inspiratory effort. Stable cardiomegaly. S/P sternotomy and CABG surgery. Spinal neurostimulation leads again visualized in the lower thoracic spine. Prominent lung markings again seen (unchanged appearance). No consolidation. Small pleural effusions cannot be excluded. No pneumothorax. IMPRESSION: Poor inspiratory effort at this time. Stable cardiomegaly. S/P sternotomy and CABG surgery. Prominent interstitial and vascular markings again noted. Compatible with moderate vascular congestion. Cannot exclude interstitial pneumonitis. Continued follow-up is suggested. Electronically signed by: Rosa Diaz On 02/05/2021 22:35:36 PM
[2021-02-05 22:54] LABS: ALBUMIN 3.5 GM/DL (3.2-5.2); BILIRUBIN,DIRECT 0.2 MG/DL (0.0-0.2); BILIRUBIN,TOTAL 0.4 MG/DL (0.2-1.0); CALCIUM LEVEL 8.7 MG/DL (8.8-10.2); CREATININE FOR GFR 8.08 MG/DL (0.70-1.30); GLOMERULAR FILTRATION RATE 6.9 (>42); POTASSIUM SERUM 6.5 MEQ/L (3.5-5.1); TOTAL PROTEIN 6.8 GM/DL (6.4-8.2)
[2021-02-05] MEDS ORDERED: SOD POLYSTYRENE SULFONATE SUSP 15 GM/60 ML UD PO ONE (23:15)
[2021-02-05] MEDS ORDERED: FUROSEMIDE 100MG/10ML VIAL (J1940) IV ONE (23:20)
[2021-02-06] VITALS (83 sets, daily range): BP systolic 77–203; BP diastolic 43–93
[2021-02-06] MEDS ORDERED: GLUCOSE 4GM CHEW TABLET PO PRN (00:05)
[2021-02-06] MEDS ORDERED: DEXTROSE 50% 50 ML SYRINGE IV PRN (00:05)
[2021-02-06] MEDS ORDERED: ACETAMINOPHEN TAB 650MG DOSE (2X325MG) PO PRN (00:05)
[2021-02-06] MEDS ORDERED: GLUCAGON INJ 1MG VIAL SC PRN (00:05)
[2021-02-06] MEDS ORDERED: BACITAB PO (00:10)
[2021-02-06] MEDS ORDERED: CO Q200C10 PO (00:10)
[2021-02-06] MEDS ORDERED: MIRA1POW3 PO (00:10)
[2021-02-06] MEDS ORDERED: TESS100C PO (00:10)
[2021-02-06] MEDS ORDERED: TORS100T PO (00:10)
[2021-02-06] MEDS ORDERED: FLON1SPR (00:10)
[2021-02-06] MEDS ORDERED: SYMP0.2T2 PO (00:10)
[2021-02-06] MEDS ORDERED: PRED1TABL PO (00:10)
[2021-02-06] MEDS ORDERED: MORP15TA2 PO (00:10)
[2021-02-06] MEDS ORDERED: CALC1CAP PO (00:10)
[2021-02-06] MEDS ORDERED: PRED10TA2 PO (00:10)
[2021-02-06] MEDS ORDERED: HYDR-643 PO (00:10)
[2021-02-06] MEDS ORDERED: FAMO20TA4 PO (00:10)
[2021-02-06] MEDS ORDERED: MIRT-62 PO (00:10)
[2021-02-06] MEDS ORDERED: NITR4TASL SL (00:10)
--- NOTE | 2021-02-06 00:14 | HPEPDOC ---
[facility] Medical History & Physical Date of Admission Feb 05, 2021 Date of Service: Feb 05, 2021 History and Physical Patient was seen and examined on 02/05/2021. CHIEF COMPLAINT: Shortness of breath HISTORY OF PRESENT ILLNESS: 75-year-old male with extensive medical history including ESRD on HD MWF, diabetes, restrictive lung disease, CHF, CAD with CABG, bladder cancer, aortic and mitral valve replacements who presents to [facility] ED with shortness of breath. Patient was scheduled to get dialysis today but was having panic attacks according to his all day long and didn't feel he can tolerate dialysis and skip today's session his anxiety worsened and he felt short of breath and has to be brought to the emergency department. History was obtained from his Tatianna patient is on BiPAP sleeping and very difficult to arouse. Tatianna believes that a lot of his problems are related to his panic attacks they have become more frequent lately and they stem from concern over his extensive medical history and that he is afraid of dying. She tells me he looks better now that BiPAP has been applied and appears a lot more comfortable. In the emergency department nephrology Dr. Hope was contacted who recommended Kayexalate and hemodialysis in the morning. Patient has a fistula in the left arm. Initial ABG showed a pH of 7.1, pCO2 80, pO2 51. He has leukocytosis 18. According to his Tatianna patient would like to be full code. PAST MEDICAL/SURGICAL HISTORY: ESRD on HD CAD status post CABG Congestive heart failure Restrictive lung disease follow up with Dr. Cruz Diabetes not insulin-dependent Bladder cancer Aortic and mitral valve replacement by prostatic 2016 Quadruple bypass 2003 Knee replacement 2006 Elbow surgery 2012 Bilateral cataract surgery 2017 Left arm fistula 2019 Left hip replacement 2019 SOCIAL HISTORY: Per his Denies alcohol use Denies tobacco use currently he quit 20 years ago but smoked for 40 years prior to that Denies illicit drug use FAMILY HISTORY: Reviewed and none contributory to this admission. His and tells me his mother had diabetes. ALLERGIES: Please see below. REVIEW OF SYSTEMS: Unable to obtain review of systems from the patient given his somnolence HOME MEDICATIONS: Please see below. PHYSICAL EXAMINATION: Constitutional: Somnolent difficult to arouse briefly wakes up in the falls asleep again appears to be comfortable on BiPAP protecting his airway. ENT: Sclera are clear. Respiratory: Lungs have diminished breath sounds bilaterally with Rales at bases. No use of accessory muscles. Cardiovascular: Heart sounds are difficult to appreciate accurately over the BiPAP machine but appear to be regular in rate and rhythm Gastrointestinal: Abdomen is soft, non distended, BS present. Musculoskeletal: 2+ pitting edema lower extremities bilaterally. Left arm fistula. Neurologic: Unable to assess Mental Status: Somnolent Skin: Nonjaundiced. LABORATORY DATA: See below. IMAGING: CXR impressions: Poor inspiratory effort at this time. Stable cardiomegaly. S/P sternotomy and CABG surgery. Prominent interstitial and vascular markings again noted. Compatible with moderate vascular congestion. Cannot exclude interstitial pneumonitis. MICROBIOLOGY: Please see below. ASSESSMENT/PLAN 75 year old critically ill male with extensive past medical history who missed his dialysis session today and presents with acute respiratory failure requiring BiPAP. Patient admitted to ICU with expected HD in the morning. # Acute on chronic respiratory failure: likely 2/2 fluid overload. More comfortable now on Bipap. Admit to ICU on Bipap. Pulmonology Dr Lees was consulted. I hope it will improve with diuresis and HD volume correction. Repeat CXR in the am. # Acute on Chronic CHFpEF exacerbation: Last echo march 2019 showing CHFpEF 70%. Repeat echo. Lasix 80mg IV TID which can be adjusted after HD. Volume status should improve with HD in the am. # ESRD on HD: MWF, has left arm fistula. Dr Reis consulted, recommended kayexelate for the hyperkalemia and HD in the morning. # Hyperkalemia: 6.5 on admit. s/p kayexelate. No peaked T waves on EKG. Repeat BMP. Should correct with HD. # CAD status post CABG: continue plavix, BB, statin # Leukocytosis: I don't suspect infection at this time. He's been chronically on steroid for a few months. Fu BCx and procalcitonin. No Abx for now. # Itching/eczema: he was placed for several months now on prednisone, currenly on 14mg daily which I will continue. # Aortic and mitral valve replacement by prostatic 2016: continue plavix. Fu echo. # Anemia: likely ACD. Hgb 10.7 close to baseline. Continue to monitor. # Restrictive lung disease: Follows with Dr Cruz in clinic. # NIDDM: ISS. Frequent Accu-Cheks. Hypoglycemic precautions. # Bladder cancer: Fu OP. # DVT prophylaxis: Heparin Hold none essential home meds A Yousef Hospitalist Vital Signs Vital Signs Date Time Temp Pulse Resp B/P (MAP) Pulse Ox O2 Delivery O2 Flow Rate FiO2 02/05/21 23:01 96.6 18 155/55 (88) 98 Room Air 02/05/21 22:52 68 Laboratory Data Labs 24H Laboratory Tests 2 02/05/21 22:04: Immature Granulocyte % (Auto) 5.0H, Neutrophils (%) (Auto) 81.2H, Lymphocytes (%) (Auto) 5.4L, Monocytes (%) (Auto) 7.7, Eosinophils (%) (Auto) 0.1, Basophils (%) (Auto) 0.6, Neutrophils # (Auto) 14.5H, Lymphocytes # (Auto) 1.0L, Monocytes # (Auto) 1.4H, Eosinophils # (Auto) 0.0, Basophils # (Auto) 0.1, Nucleated Red Blood Cells % (auto) 0.0, Blood Gas Bicarbonate Standard 19.0, Venous Blood pH 7.104L, Venous Blood Partial Pressure CO2 80.1H, Venous Blood Partial Pressure O2 50.9H, Venous Blood Total Carbon Dioxide 27.0, Venous Blood HCO3 24.5, Venous Blood Oxygen Saturation 74.3, Venous Blood Base Excess -6.2L, Anion Gap 9, Glomerular Filtration Rate 6.9L, Calcium Level 8.7L, Total Bilirubin 0.4, Direct Bilirubin 0.2, Aspartate Amino Transf (AST/SGOT) 19, Alanine Aminotransferase (ALT/SGPT) 27, Alkaline Phosphatase 148H, Total Protein 6.8, Albumin 3.5, Albumin/Globulin Ratio 1.1 02/05/21 22:36: POC Troponin I (Misc) 0.07 02/05/21 22:59: POC pH (Misc Panel) 7.124*L, POC Base Excess (Misc Panel) -1.0, POC Saturated Percent O2 (Misc) 91L, POC pO2 (Misc Panel) 84.0, POC pCO2 (Misc Panel) 84.7*H, POC HCO3 (Misc Panel) 27.8H, POC Total CO2 (Misc Panel) 30.0H CBC/BMP Laboratory Tests 02/05/21 22:04 Microbiology Microbiology 02/05/21 Respiratory Virus Panel (PCR) ([facility]) - Final, Complete Home Medications Scheduled Atorvastatin Calcium (Atorvastatin Calcium) 20 Mg Tablet, 20 MG PO QHS Calcitriol (Calcitriol) 0.25 Mcg Capsule, 0.25 MCG PO 3XW FRIDAY, FRIDAY AND FRIDAY WITH DIALYSIS Calcium Acetate (Calcium Acetate) 667 Mg Capsule, 667 MG PO WM Calcium Carbonate/Vitamin D3 (Calcium 600-Vit D3 800 Tablet) 1 Each Tablet, 1 TAB PO QHS Carvedilol (Carvedilol) 3.125 Mg Tablet, 3.125 MG PO BID Cholecalciferol (Vitamin D3) (Vitamin D3) 100 Mcg (4000 Unit) Capsule, 100 MCG PO DAILY Clopidogrel Bisulfate (Plavix) 75 Mg Tablet, 75 MG PO DAILY Duloxetine Hcl (Duloxetine HCl) 60 Mg Capsule.dr, 60 MG PO QHS Famotidine (Famotidine) 20 Mg Tablet, 20 MG PO DAILY Fluticasone Propionate (Flonase Allergy Relief) 9.9 Ml [place].susp, 2 SPRAYS NA DAILY Hydroxyzine HCl (Hydroxyzine HCl) 10 Mg Tablet, 30 MG PO BID L.acidoph/L.bulg/B.bif/S.therm (Bacid Caplet) 1 Each Tablet, 1 TAB PO QHS Mirtazapine (Remeron) 15 Mg Tablet, 15 MG PO QHS Multivitamins (Thera M Plus Tablet) 1 Each Tablet, 1 TAB PO DAILY Naldemedine Tosylate (Symproic) 0.2 Mg Tablet, 0.2 MG PO DAILY Prednisone (Prednisone) 1 Mg Tablet, 4 MG PO DAILY TAKES WITH 10MG FOR 14MG TOTAL Prednisone (Prednisone) 10 Mg Tablet, 10 MG PO DAILY TAKES WITH 4MG FOR 14MG TOTAL Tiotropium [place] (Spiriva Respimat) 4 Gm Mist.inhal, 2 PUFF INH DAILY Torsemide (Torsemide) 100 Mg Tablet, 100 MG PO DAILY HAS NOT STARTED YET; TOOK 40MG ON 02/05/21 Ubidecarenone (Co Q-10) 200 Mg Capsule, 200 MG PO DAILY Scheduled PRN Albuterol Sulf (Albuterol Sulfate) 2.5 Mg/3 Ml Vial.neb, 2.5 MG INH QID PRN for SHORTNESS OF BREATH Albuterol Sulfate (Proair Hfa) 8.5 Gm Hfa.aer.ad, 2 PUFF INH Q4H PRN for SHORTNESS OF BREATH Benzonatate (Tessalon Perle) 100 Mg Capsule, 100 MG PO Q8H PRN for COUGH Morphine Sulfate (Morphine Sulfate) 15 Mg Tablet, 15 MG PO TID PRN for PAIN Nitroglycerin (Nitrostat) 0.4 Mg Tab.subl, 0.4 MG SL NITRO PRN for CHEST PAIN Polyethylene Glycol 3350 (Miralax) 17 Gm Powd.pack, 17 GM PO DAILY PRN for CONSTIPATION Allergies Coded Allergies: aspirin (Verified Allergy, Severe, LIPS SWELL, 03/29/19) Penicillins (Verified Allergy, Intermediate, RASH, 04/15/19) ampicillin (Verified Allergy, Intermediate, HIVES, 03/17/19) ceftriaxone (Verified Allergy, Unknown, UNKNOWN REACTION, 04/09/19) A-FIB/CHADSVASC A-FIB History Current/History of A-Fib/PAF?: No ANEUDY SCHERER MD Feb 06, 2021 00:13
[2021-02-06] MEDS ORDERED: IPRATROPIUM 0.5MG/ALBUTEROL 2.5MG INH SOL UD 3ML (DUONEB) NEB PRN (00:25)
[2021-02-06] MEDS ORDERED: PROPOFOL 1,000 MG/100 ML VIAL As Ordered ONE (02:07)
--- NOTE | 2021-02-06 02:48 | ECGEPIP ---
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
[2021-02-06] MEDS ORDERED: ETOMIDATE INJ 20MG/10ML VIAL ONE (03:34)
[2021-02-06] MEDS ORDERED: ROCURONIUM BROMIDE 50 MG/5 ML VIAL ONE (03:34)
[2021-02-06] MEDS ORDERED: ROCURONIUM BROMIDE 50 MG/5 ML VIAL IV ONE (03:35)
[2021-02-06] MEDS ORDERED: ETOMIDATE INJ 20MG/10ML VIAL IV STA (03:35)
[2021-02-06 04:02] LABS: HEMOGLOBIN 10.6 g/dl (13.5-17.5); MEAN CORPUSCULAR HEMOGLOBIN 31.5 pg (27.0-33.0); MEAN CORPUSCULAR HGB CONC 30.3 g/dl (32.0-36.5); MEAN CORPUSCULAR VOLUME 104.2 fl (80.0-96.0); PLATELET COUNT, AUTOMATED 165 10^3/uL (150-450); RED BLOOD COUNT 3.36 10^6/uL (4.30-6.10); WHITE BLOOD COUNT 13.4 10^3/uL (4.0-10.0)
[2021-02-06] MEDS: propofoL 1,000 MG in IV 1 EA IV SCH ×5 (04:07→20:37)
[2021-02-06 04:30] LABS: ALBUMIN 3.2 GM/DL (3.2-5.2); BILIRUBIN,TOTAL 0.6 MG/DL (0.2-1.0); CALCIUM LEVEL 8.7 MG/DL (8.8-10.2); CREATININE FOR GFR 8.3 MG/DL (0.70-1.30); GLOMERULAR FILTRATION RATE 6.7 (>42); POTASSIUM SERUM 5.9 MEQ/L (3.5-5.1); TOTAL PROTEIN 6.9 GM/DL (6.4-8.2)
--- NOTE | 2021-02-06 04:42 | REPVR ---
PROCEDURE INFORMATION: Exam: XR Chest Exam date and time: 02/06/2021 3:36 AM Age: 75 years old Clinical indication: Device placement; Ett placement (vent status); Additional info: Ett, tlc placement TECHNIQUE: Imaging protocol: XR of the chest. Views: 1 view. COMPARISON: CR PORTABLE CHEST X-RAY 02/05/2021 9:44 PM FINDINGS: Tubes, catheters and devices: Feeding tube extends into the stomach. Endotracheal tube terminates 4.3 cm above the med. Left internal jugular central venous catheter terminates proximal superior vena cava. Lungs: Slightly diminished bilateral predominantly perihilar and bibasilar reticulonodular opacities. Pleural spaces: Unremarkable. No pleural effusion. No pneumothorax. Heart/Mediastinum: See "Bones/joints" finding. Bones/joints: Status post median sternotomy, CABG and aortic valve replacement. IMPRESSION: Feeding tube extends into the stomach. Endotracheal tube terminates 4.3 cm above the med. Electronically signed by: Shiv Samayoa On 02/06/2021 04:42:19 AM
[2021-02-06 04:45] LABS: ABG BASE EXCESS -4.1 (-2.0-2.0); ABG HCO3 23.9 MEQ/L (22.0-26.0); ABG O2 SATURATION 97.5 % (95.0-99.0); ABG PARTIAL PRESSURE CO2 58.3 mmHg (35.0-45.0); ABG PARTIAL PRESSURE O2 113.3 mmHg (75.0-100.0); ABG STANDARD HCO3 21.1 MEQ/L (22.0-26.0); ABG TOTAL CO2 25.7 MEQ/L (23.0-31.0)
[2021-02-06] MEDS: hydrALAZINE 20MG/ML 1ML VIAL (J0360 PER 20MG) IV SCH ×2 (04:47→12:00)
[2021-02-06] MEDS: PIPERACILLIN/TAZOBACTAM SOD 2.25 GM in D5W MINI-BAG PLUS 50 ML IV SCH ×3 (04:47→20:18)
[2021-02-06 05:03] LABS: ABG pH (ARTERIAL) 7.231 UNITS (7.350-7.450)
[2021-02-06] MEDS: HumaLOG INSULIN (NovoLOG) PER UNIT SC SCH ×5 (06:00→23:54)
[2021-02-06] MEDS: ALBUTEROL SULFATE 2.5 MG/0.5 ML INH NEB SOLN NEB SCH ×4 (07:37→20:14)
[2021-02-06] MEDS ORDERED: CALCIUM ACETATE 667MG GELCAP PO SCH (08:00)
[2021-02-06] MEDS ORDERED: FUROSEMIDE 100MG/10ML VIAL (J1940) IV SCH (08:00)
--- NOTE | 2021-02-06 08:01 | RO ---
OPERATIVE NOTE DATE OF OPERATION: 02/06/2021 PREOPERATIVE DIAGNOSIS: Respiratory failure. POSTOPERATIVE DIAGNOSIS: Respiratory failure. PROCEDURE: Endotracheal intubation. SURGEON: Herb Lees DO, [facility] DENTAL FINANCIAL COORDINATOR: None ANESTHESIA: Etomidate 20 mg, rocuronium 50 mg IV. CONSENT: Patient was unable to give consent. This was deemed urgent due to his clinical status and he was full code. DESCRIPTION OF PROCEDURE: The patient was placed in a supine sniffing position. Timeout was performed with two patient identifiers, identifying correct site and correct procedure. Rapid sequence intubation (RSI) was initiated with pre-oxygenation. This was followed by administration of etomidate followed by rocuronium as above. After adequate sedation and paralysis, a #4 GlideScope was used to view the posterior pharynx. There was a large amount of thick mucus collection in the posterior pharynx. Upon viewing the vocal cords, there was a grade 1 view. An 8.0 endotracheal tube was easily passed through the endotracheal tube and the stylet was removed. End tidal CO2 confirmed adequate placement along with auscultation and chest x-ray. Endotracheal tube was taped at 26 at the lip. The patient's oxygen saturation remained above 90% the entire procedure. No observed complications.
[2021-02-06] MEDS: CLOPIDOGREL 75 MG TAB PO SCH (08:18)
[2021-02-06] MEDS: predniSONE 10 MG TAB PO SCH (08:19)
[2021-02-06] MEDS: predniSONE 1 MG TAB PO SCH (08:19)
[2021-02-06] MEDS: PANTOPRAZOLE 40MG VIAL (C9113 PER 1) IV SCH (08:21)
[2021-02-06] MEDS: HEPARIN SOD (PORCINE) 5000UNITS/ML 1ML VIAL/SYRINGE SC SCH ×2 (08:26→20:19)
[2021-02-06] MEDS: CHLORHEXIDINE GLUCONATE 0.12 % 15ML UDC (PERIDEX ORAL RINSE) MT SCH ×2 (08:26→20:19)
--- NOTE | 2021-02-06 08:34 | RO ---
OPERATIVE NOTE DATE OF OPERATION: 02/06/2021 PREOPERATIVE DIAGNOSIS: Renal failure, lack of IV access. POSTOPERATIVE DIAGNOSIS: Renal failure, lack of IV access. PROCEDURE: Left internal jugular (IJ) triple-lumen catheter. SURGEON: Herb Lees DO, [facility] CEMENT AND CONCRETE PLANT WORKER: None. ANESTHESIA: 1% lidocaine. DESCRIPTION OF PROCEDURE: The patient was intubated; could not provide consent but gave consent for critical care and resuscitation. This was deemed urgent as he had no vascular access and was critically ill. Left IJ was prepped in sterile manner with chlorhexidine and full sterile barrier precautions. Timeout was performed with two patient identifiers, identifying correct site and correct procedure. [place] syringe was then passed into the left IJ under ultrasound guidance on the first pass. There was return of venous blood flow. Wire was fed through the needle and the needle was removed. Dave in the skin was made and the triple-lumen Arrow catheter was placed via modified Seldinger technique. Wire was removed. All three ports returned venous blood flow and flushed easily. This was sutured in at 15 cm. There was minimal oozing from the site. Post-procedure chest x-ray showed adequate position with the tip of the catheter in the superior vena cava (SVC) and no evidence of pneumothorax. No observed complications. [facility]
[2021-02-06] MEDS ORDERED: CARVedilol 3.125 MG TAB PO SCH (09:00)
[2021-02-06] MEDS: DOCUSATE SOD LIQ 100MG/10ML UDC GT SCH ×2 (09:00→20:19)
[2021-02-06] MEDS ORDERED: DOCUSATE SODIUM 100MG CAPSULE PO SCH (09:00)
[2021-02-06 09:17] LABS: ALBUMIN 2.9 GM/DL (3.2-5.2); CALCIUM LEVEL 8.6 MG/DL (8.8-10.2); CREATININE FOR GFR 8.59 MG/DL (0.70-1.30); GLOMERULAR FILTRATION RATE 6.5 (>42); PHOSPHORUS LEVEL 6.9 MG/DL (2.5-4.9); POTASSIUM SERUM 5.1 MEQ/L (3.5-5.1)
[2021-02-06] MEDS ORDERED: NOREPINEPHRINE 4 MG/4 ML AMP As Ordered ONE (09:53)
[2021-02-06] MEDS ORDERED: NOREPINEPHRINE BITARTRATE 16 MG in D5W 484 ML IV SCH (10:00)
[2021-02-06] MEDS ORDERED: SODIUM CHLORIDE 0.9% 1000ML IV PRN (12:55)
--- NOTE | 2021-02-06 15:45 | CCN ---
CRITICAL CARE NOTE DATE: 02/06/2021 CRITICAL CARE TIME: 1 hour and 31 minutes, this excludes all procedures. SUBJECTIVE: I was called at the patient's bedside for respiratory failure. He had been on bilevel noninvasive therapy up to 18/04, did not seem to be improving as the patient presented with respiratory failure. Patient had hypercarbic respiratory failure that did not improve with hours of bilevel noninvasive therapy. The pH still remained at 7.13, pCO2 of 98. The patient was incoherent, therefore a decision was made to intubate. Patient was a full code. It does appear that the patient missed dialysis today. He presented with acute pulmonary edema based on chest x-ray. Attempts for diuresis were made although the patient does have chronic kidney disease and is on dialysis, reportedly makes some urine. He has made about 125 ccs since he was in the ER. He does have leukocytosis and during intubation there was a large amount of mucous pooling in the back of his airway. I will place him on IV antibiotics. Patient was hyperkalemic, this is being rechecked as the patient did receive Kayexalate and diuretics. After intubation, the patient's blood pressure remained elevated. OBJECTIVE: VITAL SIGNS: Temperature is 97.3, pulse is 78, respiratory rate is 20. Blood pressure ranging 132 to as high as 190s on mechanical ventilation. This is despite propofol administration and oxygen saturation to 99% on 0.50 FIO2. GENERAL: Initially, unarousable and incoherent. Appeared critically ill but no evidence of mottling. HEENT: Sclera are clear, anicteric. Pupils equally reactive to light. Mucous membranes are moist. Tongue is midline. Oropharynx without erythema or exudate but mucous in the posterior pharynx on inspection. Mallampati 4 airway, short neck with large circumference. Patient does have elevated JVP, estimated CVP by ultrasound was well over 10. Trachea is midline. NECK: Supple. LYMPH NODES: No cervical, supraclavicular, axillary adenopathy. CARDIAC: Distant S1 and S2 without audible murmur, rub or gallop. PMI is difficult to palpate due to body habitus. PULMONARY: Decreased chest expansion. Rales at the bases. Minimal rhonchi. No wheeze. There is no prolongation of the expiratory phase. ABDOMEN: Obese, soft, nontender and nondistended. No hepatosplenomegaly. EXTREMITIES: No cyanosis or clubbing but there is redness bilaterally of the lower extremities likely venous stasis changes. I do not see any rina cellulitis. There is no increased warmth. There is an AV fistula in the left arm. MUSCULOSKELETAL: Appears to have normal muscle tone for stated age. No evidence of recent trauma. No joint effusions. NEUROLOGIC: No unilateral weakness. Patient was moving both arms and legs prior to his clinical presentation according to the history. LABORATORY DATA: Laboratory evaluation shows a leukocytosis of 17.9, hemoglobin 10.7, hematocrit of 35.8 with a platelet count of 214,000. Sodium is 138, potassium is 6.5, chloride 101, bicarbonate of 28, BUN 93, creatinine of 8.08 with a glucose of 130, calcium 8.7. The 2204 blood gas shows a pH of 7.10, pCO2 of 80, pO2 of 51. A 1 a.m. gas shows a blood gas pH of 7.13, pCO2 98, PaO2 of 136. A chest x-ray initially shows vascular congestion, cardiomegaly and decreased chest expansion. A second chest x-ray after intubation and central line placement shows some improvement of vascular congestion, continue cardiomegaly with sternotomy wires with good placement of the left IJ. No evidence of pneumothorax. ASSESSMENT: 1. Hypercarbic respiratory failure secondary to volume overload and missed dialysis, medical noncompliance. 2. Pulmonary edema slightly improved, will require dialysis today. 3. Renal failure, there is evidence of hyperkalemia. This will be rechecked. 4. Leukocytosis. Significant amounts of pooling of mucous in the posterior airway, concern for possible respiratory infection, will place on antibiotic therapy. 5. Anemia, likely dilutional and secondary to chronic kidney disease. Will monitor for signs or source or bleeding, no active signs of bleeding at this point in time. 6. DVT prophylaxis, on Heparin. 7. GI prophylaxis, on Protonix. 8. Hypertensive heart disease with hypertension after intubation, likely to improve with dialysis. Patient remains critically ill. Critical attention required due to his respiratory failure and inability to breathe on his own requiring mechanical ventilation.
[2021-02-06] MEDS: MIDAZOLAM INJ 2MG/2ML VIAL (J2250 PER 1MG) IV PRN (20:10)
[2021-02-06] MEDS: ATORVASTATIN 20 MG TAB PO SCH (20:19)
[2021-02-06] MEDS: MORPHINE 2 MG/ML 1ML VIAL (J2270) IV PRN (21:31)
[2021-02-06] MEDS: NOREPINEPHRINE BITARTRATE 16 MG in D5W 484 ML IV SCH (22:00)
[2021-02-07] VITALS (48 sets, daily range): BP systolic 81–139; BP diastolic 45–68
[2021-02-07] MEDS: propofoL 1,000 MG in IV 1 EA IV SCH ×6 (01:16→23:25)
[2021-02-07] MEDS: MIDAZOLAM INJ 2MG/2ML VIAL (J2250 PER 1MG) IV PRN ×4 (01:28→19:22)
[2021-02-07] MEDS: MORPHINE 2 MG/ML 1ML VIAL (J2270) IV PRN ×3 (02:33→20:06)
[2021-02-07] MEDS: PIPERACILLIN/TAZOBACTAM SOD 2.25 GM in D5W MINI-BAG PLUS 50 ML IV SCH ×3 (04:47→21:18)
[2021-02-07 05:55] LABS: ABG BASE EXCESS -3.6 (-2.0-2.0); ABG HCO3 21.2 MEQ/L (22.0-26.0); ABG O2 SATURATION 96.7 % (95.0-99.0); ABG PARTIAL PRESSURE CO2 37.2 mmHg (35.0-45.0); ABG PARTIAL PRESSURE O2 94.6 mmHg (75.0-100.0); ABG STANDARD HCO3 21.5 MEQ/L (22.0-26.0); ABG TOTAL CO2 22.4 MEQ/L (23.0-31.0); ABG pH (ARTERIAL) 7.374 UNITS (7.350-7.450)
[2021-02-07] MEDS: HumaLOG INSULIN (NovoLOG) PER UNIT SC SCH ×4 (06:00→23:45)
[2021-02-07 06:03] LABS: HEMATOCRIT 29.5 % (42.0-52.0); HEMOGLOBIN 9.4 g/dl (13.5-17.5); MEAN CORPUSCULAR HEMOGLOBIN 31.8 pg (27.0-33.0); MEAN CORPUSCULAR HGB CONC 31.9 g/dl (32.0-36.5); MEAN CORPUSCULAR VOLUME 99.7 fl (80.0-96.0); PLATELET COUNT, AUTOMATED 179 10^3/uL (150-450); RED BLOOD COUNT 2.96 10^6/uL (4.30-6.10); WHITE BLOOD COUNT 11.8 10^3/uL (4.0-10.0)
[2021-02-07 06:49] LABS: ALBUMIN 2.7 GM/DL (3.2-5.2); CALCIUM LEVEL 8.9 MG/DL (8.8-10.2); CREATININE FOR GFR 5.23 MG/DL (0.70-1.30); GLOMERULAR FILTRATION RATE 11.5 (>42); MAGNESIUM LEVEL 1.8 MG/DL (1.8-2.4); PHOSPHORUS LEVEL 5.6 MG/DL (2.5-4.9); POTASSIUM SERUM 3.9 MEQ/L (3.5-5.1)
[2021-02-07] MEDS ORDERED: LIDOCAINE 1% SDV 5ML VIAL SC PRN (07:25)
[2021-02-07] MEDS ORDERED: SODIUM CHLORIDE 0.9% 1000ML IV PRN (07:25)
[2021-02-07] MEDS: ALBUTEROL SULFATE 2.5 MG/0.5 ML INH NEB SOLN NEB SCH ×4 (07:37→19:32)
--- NOTE | 2021-02-07 07:41 | CR ---
CONSULTATION DATE: 02/06/2021 REQUESTING PHYSICIAN: ALEXIS NICHOLAS MD CONSULTING PHYSICIAN: JESS ALVA DO REASON FOR CONSULTATION: Management of endstage renal disease on hemodialysis in this patient with fluid overload and hypercarbic respiratory failure. HISTORY OF PRESENT ILLNESS: Maik Mckeon is well-known to me from the outpatient dialysis unit and from prior hospitalizations. He is a 75-year-old male with a past medical history of endstage renal disease on hemodialysis on Friday, Friday and Friday schedule (and also advised to come on Saturdays for extra dialysis in view of chronic fluid overload), congestive heart failure, CAD status post CABG, restrictive lung disease, Type 2 diabetes mellitus, bioprosthetic aortic and mitral valve replacement and other comorbid conditions mentioned below. The patient is chronically noncompliant with fluid restriction and has large interdialytic fluid gains and is chronically in a state of fluid overload and is advised to come for an extra treatment on Saturdays in an effort to try and keep his fluid status compensated. However, this past week the patient did not come for dialysis on Friday and he also missed his dialysis treatment on Friday because of anxiety and panic attacks. He was subsequently brought to the Emergency Room and he was found to be hypercapnic and was placed on BiPAP. Laboratory studies revealed hyperkalemia and other derangements consistent with missed hemodialysis and lung imaging was consistent with pulmonary edema. Over the course of the night, the patient decompensated in terms of his respiratory status and was subsequently intubated and he was seen this morning by myself on the ventilator and was dialyzed at the bedside in the Intensive Care Unit for clearance along with fluid removal. PAST MEDICAL HISTORY: 1. Endstage renal disease on hemodialysis, noncompliant with fluid restriction, and advised for four times weekly hemodialysis. 2. CAD status post CABG. 3. Fluid overload/congestive heart failure. 4. Restrictive lung disease. 5. Type 2 diabetes mellitus. 6. History of bladder cancer. 7. Aortic and mitral valve replacement in 2016. 8. Secondary hyperparathyroidism of renal origin. 9. Anemia of chronic renal failure. 10.Pulmonary hypertension. 11.Anxiety. PAST SURGICAL HISTORY: 1. AV fistula. 2. Aortic and mitral valve bioprosthetic replacements. 3. Quadruple bypass. 4. Knee replacement. 5. Elbow surgery. 6. Bilateral cataract surgery. 7. Left hip replacement. 8. Spinal cord stimulator implantation. ALLERGIES: Penicillin, ampicillin, aspirin, Ceftriaxone. SOCIAL HISTORY: and lives with his . He is an ex-smoker. No alcohol or drug use. FAMILY HISTORY: No family history of endstage renal disease. REVIEW OF SYSTEMS: Unable to obtain secondary to clinical condition (patient intubated). HOME MEDICATIONS: Reviewed. PHYSICAL EXAMINATION: VITAL SIGNS: Temperature is 98.0, pulse is 93, respiratory rate is 20, blood pressure is 110/54, saturating 98% on 40% FIO2. Dialysis today removed 2300. GENERAL: Patient is seen intubated and sedated in the Intensive Care Unit receiving his hemodialysis treatment. HEENT: Pupils are reactive to light. Endotracheal tube is in place. There is a left internal jugular triple lumen catheter. There is an orogastric tube. NECK: His neck veins are elevated. HEART: His heart sounds are regular without audible murmur. There is leg edema bilaterally. LUNGS: Coarse breath sounds bilaterally. He is breathing above the vent. There are rales at the bases. ABDOMEN: Soft and obese, and nontender. EXTREMITIES: Peripheral edema and chronic venous stasis changes. His AV fistula is presently in use. NEUROLOGIC: He is sedated. LABORATORY DATA: Sodium is 139, potassium was 6.5 initially and 5.1 this morning just prior to dialysis being started. Bicarbonate 26, BUN 101, phosphorus 6.9, albumin is 2.9, hemoglobin is 10.6, platelets 165,000. Blood cultures pending x2 sets. Respiratory virus panel was negative. ABG at 4:30 a.m. shows a pH of 7.2 with pCO2 58 and pO2 113. Chest x-ray on February 05 showed prominent interstitial and vascular markings compatible with moderate vascular congestion. INPATIENT MEDICATIONS: He is presently on a Levophed infusion at 4 mcg, IV Propofol, Zosyn 2.5 grams IV q. 8 hourly, Albuterol nebulizer, atorvastatin 20 mg p.o. q.h.s., Plavix 75 mg p.o. daily, Heparin 5000 units sub q. 12 hourly. He received a dose of Hydralazine 10 mg, Morphine p.r.n. Protonix 40 mg IV daily, prednisone 14 mg p.o. daily and he received a dose of Kayexalate. PROBLEMS: 1. Endstage renal disease on hemodialysis on a Friday, Friday, Friday schedule with recommendation given for the patient as an outpatient to come for additional treatments on Saturdays as well due to his chronic fluid overload and large interdialytic weight gains and noncompliance with fluid restriction. His last dialysis was on February 02. He did not come for a Friday treatment and he also did not come for his regularly scheduled Friday treatment due to a panic attack at home. At his last outpatient dialysis treatment on February 02 he was found to be almost 8 kg above his dry weight. Unfortunately, that is a usual occurrence with him and attempts to have him cut back on his fluid intake or to come for additional outpatient treatments have been unsuccessful. He is now admitted with fluid overload and did need to be intubated overnight for hypercarbic respiratory failure. He was initially quite hypertensive overnight but after receiving Propofol sedation and a dose of IV Hydralazine his blood pressures are soft and he required Levophed with dialysis to help with fluid removal and we were able to remove 2.3 liters with his treatment this morning. 2. Hyperkalemia due to noncompliance with dialysis and with diet. Patient received Kayexalate in the Emergency Room and his pre-dialysis potassium was already down to 5.1 this morning and he was dialyzed with the usual 2.0 mEq bath. 3. Hypotension. Patient as initially significantly hypertensive overnight with blood pressures 150s to 170s systolic, however after intubation and Propofol sedation and dose of IV Hydralazine, his blood pressures this morning pre-dialysis were already systolic in the 90s and he needed to be started on Levophed infusion with his hemodialysis treatment in order to have ultrafiltration and fluid removal. Continue Levophed to maintain MAP of 65 and I have held his Carvedilol and discontinued the hydralazine. 4. Hypercarbic respiratory failure secondary to acute on chronic fluid overload and noncompliance with dialysis and fluid restriction. Chest x-ray with pulmonary edema pattern. We were able to remove 2.3 liters with his dialysis treatment today and I would likely dialyze him again tomorrow for further fluid removal. He is also started on empiric antibiotics in view of leukocytosis and possible pneumonia. Defer management of antibiotics to the primary team. 5. Chronic anemia of renal failure. Hemoglobin is optimal and at goal and no need for Aranesp at this time.
[2021-02-07] MEDS: CLOPIDOGREL 75 MG TAB PO SCH (07:56)
[2021-02-07] MEDS: CALCITRIOL 0.25 MCG CAP (S0169) PO SCH (07:56)
[2021-02-07] MEDS: CHLORHEXIDINE GLUCONATE 0.12 % 15ML UDC (PERIDEX ORAL RINSE) MT SCH ×2 (07:56→20:04)
[2021-02-07] MEDS: DOCUSATE SOD LIQ 100MG/10ML UDC GT SCH ×2 (07:56→20:04)
[2021-02-07] MEDS: predniSONE 10 MG TAB PO SCH (07:57)
[2021-02-07] MEDS: HEPARIN SOD (PORCINE) 5000UNITS/ML 1ML VIAL/SYRINGE SC SCH ×2 (07:58→20:05)
[2021-02-07] MEDS: predniSONE 1 MG TAB PO SCH (07:58)
[2021-02-07] MEDS: PANTOPRAZOLE 40MG VIAL (C9113 PER 1) IV SCH (07:59)
--- NOTE | 2021-02-07 08:08 | REP ---
INDICATION: RESPIRATORY FAILURE. 6:52 a.m. film. COMPARISON: Comparison chest x-ray February 06, 2021 3:28 a.m. film. TECHNIQUE: Portable upright AP chest radiograph. FINDINGS: Patient is rotated somewhat to the right. Median sternotomy wires and dorsal column stimulator lead is noted. An aortic valve replacement is seen an EKG monitoring electrodes are noted. There are clips in right upper quadrant the abdomen. Endotracheal tube is seen in position just above the med. A nasogastric tube enters the left upper quadrant. Current exposure is made at a lesser level of inspiration. There is blunting of the right lateral pleural angle. Question right lower lobe atelectasis. There is evidence of erosive arthropathy affecting both shoulders.. IMPRESSION: Lesser level of inspiration. Question atelectasis right lower lobe. Endotracheal tube just above the med.. <Electronically signed by Eyad Kumar > 02/07/21 0804
--- NOTE | 2021-02-07 11:28 | CCN ---
CRITICAL CARE NOTE DATE: 02/07/2021 CRITICAL CARE TIME: 1 hour and 8 minutes, this excludes all procedures. SUBJECTIVE: I saw Mr. Mckeon this morning while he was on dialysis in the ICU. He remains on mechanical ventilation. This morning's chest x-ray shows a pleural effusion on the right, still suggesting increased volume status. White count came down quite a bit, therefore question of whether or not there is superimposed infection, therefore calcitonin was ordered. The patient's blood pressure has been slightly soft, will add hydrocortisone in case he is adrenally insufficient from his chronic prednisone use. Overnight, no significant arrhythmias other than his underlying atrial fibrillation. OBJECTIVE: VITAL SIGNS: Temperature is 97.5, pulse is 97, respiratory rate is 19, blood pressure is 116/58 with a MAP of 77, oxygen saturation is 95% on 0.40 FIO2. GENERAL: Intubated and sedated but is moving his extremities independently. HEENT: Pupils are equal and reactive to light. There is a subconjunctival hemorrhage on the right. Endotracheal tube is in place. Left IJ triple lumen catheter with some minimal subcutaneous bleeding. NECK: Supple. No tracheal deviation. There is elevated JVP. LYMPH NODES: No cervical, supraclavicular or axillary adenopathy. CARDIAC: Irregularly irregular without audible murmur, rub or gallop. There is bilateral lower extremity edema with venous stasis changes. PULMONARY: Fairly clear anteriorly, posteriorly decreased chest expansion. No rhonchi or wheeze. There is dullness to percussion at the right base. No accessory muscle use. ABDOMEN: Obese, soft, nontender and nondistended. No discernible hepatosplenomegaly. No masses or hernia. EXTREMITIES: Chronic venous stasis abnormalities, AV fistula on left arm, currently in use. NEUROLOGIC: No unilateral weakness. No tremor. LABORATORY DATA: Laboratory evaluation showed a sodium of 132, potassium is 3.9, chloride is 97, bicarbonate of 27, BUN at 42, creatinine of 5.23. White blood cell count is down from 17.9 to 11.8, hemoglobin is 9.4, hematocrit of 29.5, platelet of 179,000. Blood cultures shows no growth so far. Chest x-ray as mentioned above, shows a right pleural effusion, otherwise poor chest expansion in the presence of cardiomegaly and prior sternotomy wires. IMPRESSION: 1. Respiratory failure from pulmonary edema likely from missed dialysis treatments. At this point in time cannot absolutely rule out the possibility of infection, minimal amounts of mucous were present in his posterior pharynx on intubation. Blood pressure remained slightly low. Will monitor for signs of sepsis. Patient on broad spectrum antibiotics. He is not showing any evidence of allergic reaction to Zosyn. He has had no rashes. I have ordered a calcitonin to see if this is elevated as he simply may have decompensated just from missing dialysis and antibiotics may be able to be removed. 2. Leukocytosis as mentioned above. 3. Renal failure, managed by primary renal team. 4. Chronic prednisone use with hypotension. Will switch to hydrocortisone in case he has adrenal insufficiency. This is likely propofol induced. PLAN: Trial of extubation tomorrow morning if patient's fluid status is improved. Critical care required for mechanical ventilation and intervention for blood pressure. Prognosis remains guarded.
--- NOTE | 2021-02-07 11:56 | ECHO ---
DATE OF PROCEDURE: 02/06/2021 Age: 75 Gender: Male Height: 165 cm Weight: 95 kg REFERRING PHYSICIAN: Dr. Tristin Root. INDICATION: Dyspnea, unspecified. MEASUREMENTS: 2D Measurements: Interventricular septum 1.78 cm Posterior wall 1.36 cm Left ventricle diastole 3.7 cm Left atrium 5.8 cm Aortic annulus 1.8 cm Inferior vena cava 2.1 cm Doppler Measurements: No aortic stenosis No aortic regurgitation Aortic valve velocity 264 cm/s Peak aortic valve gradient 28 mmHg Mean aortic valve gradient 16 mmHg LVOT velocity 118 cm/s Very mild tricuspid regurgitation No mitral stenosis Mitral E velocity 114 cm/s Mitral A velocity 179 cm/s (pulsed wave Doppler) Moderate tricuspid regurgitation Estimated right ventricle systolic pressure 37 mmHg Estimated right atrial pressure of 10 mmHg No pulmonic regurgitation Pulmonary artery acceleration time 111 msec DESCRIPTION: Rhythm was sinus with right bundle branch block morphology. This was a technically difficult echocardiogram. The study was performed with the patient supine. No pericardial effusion. This was a 2D, M-mode, color flow Doppler, and pulsed wave Doppler examination including mitral annular tissue Doppler. CONCLUSIONS: 1. Well seated and normal appearing aortic valve bioprosthesis. No aortic stenosis or regurgitation. 2. Well seated and normal appearing mitral valve bioprosthesis. Trace mitral regurgitation within the normal functioning range. No mitral stenosis. 3. Moderate concentric left ventricle hypertrophy. No regional LV wall motion abnormalities. Hyperdynamic LV systolic function. LVEF 75% by visual estimate. LV diastolic function not valid in the setting of status post mitral valve bioprosthesis. 4. Severe left atrial dilatation. 5. Suggestive of mild elevation of estimated right ventricle systolic pressure. Moderate tricuspid regurgitation. 6. Normal right ventricle size. Mild right ventricle hypertrophy. Normal right ventricle systolic function. 7. No pericardial effusion. 8. Technically difficult echocardiogram. [facility] [place]
[2021-02-07] MEDS: HYDROCORTISONE 100 MG/2 ML VIAL (J1720 PER 1) IV SCH ×2 (13:05→20:08)
[2021-02-07] MEDS: ATORVASTATIN 20 MG TAB PO SCH (20:05)
--- NOTE | 2021-02-07 20:50 | IPN ---
NEPHROLOGY PROGRESS NOTE DATE: 02/07/2021 SUBJECTIVE: The patient is seen and examined this morning at the bedside in the Intensive Care Unit. He remains ventilated on FiO2 of 40%. He came off of Levophed pressor earlier this morning. He is being dialyzed again today for further fluid removal for more control of his volume status. There is a plan for probable extubation tomorrow. OBJECTIVE: PHYSICAL EXAMINATION: VITAL SIGNS: Temperature 98.2, pulse 99, respiratory rate 20, blood pressure 116/58, saturating 97% on 40% FiO2. Dialysis yesterday removed 2,300. Dialysis today removed 2,500. The patient is in net negative balance. GENERAL APPEARANCE: The patient is seen intubated and sedated, receiving hemodialysis at the bedside in the Intensive Care Unit. HEENT: His pupils are reactive to light. NECK: There is a left internal jugular triple lumen catheter. The jugular veins are mildly elevated. HEART: Irregular. There was a faint systolic murmur. Peripheral edema is diminished. There is some erythema of his anterior shins, cellulitic appearance versus chronic venous stasis changes. RESPIRATORY: Coarse symmetric air entry. He is breathing above the vent. ABDOMEN: Soft and obese. EXTREMITIES: AV fistula in the left arm which is presently in use and venous stasis/mild erythematous appearance of the anterior shins. NEUROLOGIC: He is sedate. LABORATORY STUDIES: Today's studies show sodium of 132, potassium 3.9, bicarbonate 27. White blood cells have decreased from 17.9 down to 11.8, hemoglobin 9.4, platelet count 179. Blood cultures have been no growth thus far x2 sets drawn February 06. Magnesium 1.8. IMAGING: Chest x-ray done today shows blunting of the right pleural angle. INPATIENT MEDICATIONS: His Levophed has been on hold since this morning. I have ordered Aranesp with dialysis. His Carvedilol is also on hold. He was started on Hydrocortisone 50 mg IV q. 8 hourly by the Critical Care Service, and his oral Prednisone was discontinued. The remainder of medications are unchanged as compared to yesterday. PROBLEMS: 1. End-stage renal disease on hemodialysis in this patient who is chronically fluid overloaded and usually on a Friday, Friday, Friday schedule with recommendations to come in for additional treatments on Friday as he is chronically at least 5 kg, if not more, above his dry weight in the outpatient setting due to noncompliance with fluid restriction and large interdialytic weight gains. He was dialyzed inpatient yesterday and again today, and I am hopeful that he will be extubated tomorrow. His next dialysis will likely be on Friday. 2. Anemia of chronic renal failure - Aranesp is being ordered with dialysis and we will get iron studies as well. 3. Hypotension I have held his Carvedilol. He has been off of Levophed pressor support since this morning. Critical Care Service has started him on Hydrocortisone 50 mg IV q. 8 hourly which I am very much in agreement with. He tolerated fluid removal with dialysis today well. 4. Hypercarbic respiratory failure secondary to [id number] fluid overload and noncompliance with dialysis and fluid restriction - The patient was dialyzed yesterday and again today for further control of his volume status. He is also on empiric antibiotics by the primary service. Thus far his cultures have been negative and his white count is downtrending nicely. A Calcitonin level is pending.
[2021-02-07] MEDS: NOREPINEPHRINE BITARTRATE 16 MG in D5W 484 ML IV SCH (22:00)
[2021-02-08] VITALS (55 sets, daily range): BP systolic 85–129; BP diastolic 47–84; O2SAT 98
[2021-02-08] MEDS: MIDAZOLAM INJ 2MG/2ML VIAL (J2250 PER 1MG) IV PRN (01:06)
[2021-02-08] MEDS: propofoL 1,000 MG in IV 1 EA IV SCH ×3 (01:40→08:51)
[2021-02-08] MEDS: NOREPINEPHRINE BITARTRATE 16 MG in D5W 484 ML IV SCH (02:38)
[2021-02-08] MEDS: HYDROCORTISONE 100 MG/2 ML VIAL (J1720 PER 1) IV SCH ×3 (04:27→20:46)
[2021-02-08 04:38] LABS: HEMATOCRIT 27.3 % (42.0-52.0); HEMOGLOBIN 8.8 g/dl (13.5-17.5); MEAN CORPUSCULAR HEMOGLOBIN 31.5 pg (27.0-33.0); MEAN CORPUSCULAR HGB CONC 32.2 g/dl (32.0-36.5); MEAN CORPUSCULAR VOLUME 97.8 fl (80.0-96.0); PLATELET COUNT, AUTOMATED 170 10^3/uL (150-450); RED BLOOD COUNT 2.79 10^6/uL (4.30-6.10); WHITE BLOOD COUNT 11.9 10^3/uL (4.0-10.0)
[2021-02-08 05:05] LABS: ALBUMIN 2.6 GM/DL (3.2-5.2); BLOOD UREA NITROGEN 29 MG/DL (7-18); CALCIUM LEVEL 8.6 MG/DL (8.8-10.2); CARBON DIOXIDE LEVEL 24 MEQ/L (21-32); CHLORIDE LEVEL 97 MEQ/L (98-107); CREATININE FOR GFR 4.17 MG/DL (0.70-1.30); GLOMERULAR FILTRATION RATE 14.9 (>42); GLUCOSE, FASTING 85 MG/DL (70-100); PHOSPHORUS LEVEL 6.6 MG/DL (2.5-4.9); SODIUM LEVEL 134 MEQ/L (136-145)
[2021-02-08] MEDS: PIPERACILLIN/TAZOBACTAM SOD 2.25 GM in D5W MINI-BAG PLUS 50 ML IV SCH ×2 (05:05→12:13)
[2021-02-08 05:51] LABS: ABG BASE EXCESS -2.2 (-2.0-2.0); ABG HCO3 21.9 MEQ/L (22.0-26.0); ABG O2 SATURATION 98.5 % (95.0-99.0); ABG PARTIAL PRESSURE CO2 34.5 mmHg (35.0-45.0); ABG PARTIAL PRESSURE O2 136.1 mmHg (75.0-100.0); ABG STANDARD HCO3 22.7 MEQ/L (22.0-26.0); ABG TOTAL CO2 22.9 MEQ/L (23.0-31.0)
[2021-02-08] MEDS: HumaLOG INSULIN (NovoLOG) PER UNIT SC SCH ×4 (06:00→20:46)
[2021-02-08] MEDS: ALBUTEROL SULFATE 2.5 MG/0.5 ML INH NEB SOLN NEB SCH (07:01)
--- NOTE | 2021-02-08 08:53 | REP ---
INDICATION: RESPIRATORY FAILURE. COMPARISON: Comparison chest x-ray 07 February 2021. TECHNIQUE: Portable upright AP chest radiograph. FINDINGS: Endotracheal tube is seen in good position at the level of the transverse aorta. And nasogastric tube enters the left upper quadrant. A left internal jugular central venous line terminates in the expected location of the superior vena cava. The lungs are again exposed at a low level of inspiration. There is discoid atelectasis in the lung bases bilaterally, left more so than right. No definite effusion. Patient appears to be status post aortic valve replacement. Median sternotomy wires are seen.. Borderline heart size. IMPRESSION: Low level of inspiration with bibasilar discoid atelectasis, left greater than right. Lines and catheters again noted.. <Electronically signed by Eyad Kumar > 02/08/21 [id number]
[2021-02-08] MEDS ORDERED: MORPHINE 15 MG SA TAB PO SCH (09:00)
[2021-02-08] MEDS: MORPHINE 2 MG/ML 1ML VIAL (J2270) IV PRN ×2 (09:18→11:31)
[2021-02-08] MEDS: PANTOPRAZOLE 40MG VIAL (C9113 PER 1) IV SCH (09:20)
[2021-02-08] MEDS: DOCUSATE SOD LIQ 100MG/10ML UDC GT SCH (09:20)
[2021-02-08] MEDS: CHLORHEXIDINE GLUCONATE 0.12 % 15ML UDC (PERIDEX ORAL RINSE) MT SCH (09:20)
[2021-02-08] MEDS: HEPARIN SOD (PORCINE) 5000UNITS/ML 1ML VIAL/SYRINGE SC SCH ×2 (09:21→20:48)
[2021-02-08] MEDS: CLOPIDOGREL 75 MG TAB PO SCH (09:22)
--- NOTE | 2021-02-08 12:34 | CCN ---
CRITICAL CARE NOTE DATE: 02/08/2021 CRITICAL CARE TIME: 1 hour and 6 minutes, this excludes all procedures. SUBJECTIVE: Mr. Mckeon passed a spontaneous breathing trial this morning, was extubated. Complained of pain. Long-acting morphine was added to his regimen as it appears that he is on this at home. Otherwise, this morning a chest x-ray shows improvement as outlined below. He has been dialyzed twice since his arrival. No fevers documented. OBJECTIVE: VITAL SIGNS: Temperature is 97.7, pulse is 74, respiratory rate of 20, blood pressure is 103/54 with a MAP of 70, oxygen saturation is 97% on 3.30 FIO2. Patient was extubated and sats remained above 95% after extubation on aerosol mask. GENERAL: The patient is a little fidgety and appears to be in discomfort but otherwise without signs of respiratory failure. HEENT: Conjunctival hemorrhage on the right eye. Pupils equal and reactive to light. Mucous membranes are moist. Tongue is midline. Mallampati 4. NECK: Supple. No tracheal deviation or mass. Large neck circumference, left IJ in place. PULMONARY: Decreased breath sounds throughout, poor inspiratory effort but no rales, rhonchi or wheezes. No dullness to percussion. No accessory muscle use. CARDIAC: Distant S1 and S2 without audible murmur, rub or gallop. No elevated JVP. Some minimal edema with chronic venous stasis changes. ABDOMEN: Obese, soft, nontender and nondistended. No hepatosplenomegaly. No masses or hernia. EXTREMITIES: Chronic venous stasis changes of lower extremities. AV fistula on the left upper arm. MUSCULOSKELETAL: Muscle tone appears appropriate. NEUROLOGIC: No unilateral weakness or tremor. LABORATORY EVALUATION: White blood cell count of 11.9, hemoglobin of 8.8. Hematocrit of 27.3 with a platelet count of 170,000. Sodium was up to 134, potassium 4.0, chloride is 97, bicarbonate 24, BUN 29, creatinine down to 4.17 with a calcium of 8.6, phosphorus of 6.6 and an albumin of 2.6. Arterial blood gas this morning shows a pH of 7.42, pCO2 of 35, and a PaO2 of 136. Blood sugars show no growth so far. Calcitonin level still pending. IMPRESSION: 1. Respiratory failure likely from missed dialysis, noncompliance. After two dialyses, patient recovered well, extubated this morning. Will continue to monitor for signs of further respiratory failure. 2. Initial leukocytosis may have been from stress of his clinical presentation, however I could not rule out infection, he remains on broad spectrum antibiotics. No evidence of penicillin allergy with the use of Zosyn. Will continue to monitor for signs of sepsis, however calcitonin level is pending, if this is low this may prompt discontinuation of antibiotic therapy. 3. Chronic pain, add back MS Contin. 4. History of cardiomyopathy, cardiovascular disease, valve replacement, will likely require returning to Carvedilol. I did transfer the patient to the medicine service. Patient's prognosis remains guarded. Has risk of recurrent respiratory failure, will require close monitoring while in the hospital.
[2021-02-08 13:42] LABS: HEPATITIS B SURFACE ANTIBODY NEGATIVE (POSITIVE)
[2021-02-08 13:54] LABS: HEPATITIS B SURFACE ANTIGEN NEGATIVE (NEGATIVE)
[2021-02-08 14:22] LABS: HEPATITIS B CORE ANTIBODY IGM NEGATIVE (NEGATIVE); HEPATITIS C VIRUS ABY INDEX < 0.0 INDEX (<0.8)
--- NOTE | 2021-02-08 15:13 | IPNPDOC ---
Text Note Date of Service The patient was seen on 02/08/21. NOTE Subjective: Pt is a 75 year old male with PMH of ESRD on HD on MWF with AV fistula in L arm, DM, restrictive lung disease, HFpEF with EF of 75%, CAD s/p CABG, aortic and mitral valve replacement who initially presented to the ED on 02/05/21 due to SOB. Pt was due for HD on Friday but did not attend dialysis due to increased anxiety. Pt was admitted for acute on chronic respiratory failure likely 2/2 fluid overload due to CHF exacerbation. Dr. Hope was called and recommended Kayexelate and HD in the AM (02/06/21). During his admission pt became hypercapnic and developed respiratory failure 2/2 fluid overload due to missed dialysis session and was intubated. He was started on pip/tazo due to possible infection. While pt was intubated, pt received HD yesterday and today and had 2.5 L of fluid removed (2 days of dialysis so far with a total of 5 L fluid re moved). Pt ABG improved and spontaneous breathing trial was done this morning, pt did well and was subsequently extubated. During examination this afternoon after extubation, pt appears slightly confused but this is likely 2/2 recent discontinuation of propofol and versed as pt has ESRD. Upon waking, pt main complaint was about his chronic back pain so a dose of Ms Contin was given. When asked further about how many dialysis sessions pt missed prior to presentation, pt is unable to answer. In terms of O2 saturation, pt was doing well on 2 L O2 and sating in the high 90's. Pt has a central line in place due to administration of Levophed. Will plan on keeping central line in place until tomorrow morning. Objective: VITALS: See below. GENERAL: Pt is laying in bed. Appears to be tired and slightly confused after extubation but is able to answer questions. Does not appear to be in any distress. HEENT: NC/AT. EOMI. Conjunctiva and lids normal. No scleral icterus. CARDIOVASCULAR: Regular rate and rhythm. Distant heart sounds. No rubs, or gallops appreciated. PULMONARY: Decreased breath sounds. Coarse crackles heard in bilateral lung bases. No wheezes or rhonchi appreciated. Pt is sating in the high 90's after extubation while on 2 L nasal cannula. ABDOMINAL: Abd is soft and non-tender to palpation. No guarding or rebound. Normoactive bowel sounds in all four quadrants. EXTREMITIES: No pitting edema to BLE. 2+ DP pulses bilaterally. AV fistula to L arm, thrill present. NEUROLOGIC: No focal neurologic deficits appreciated. Imaging: CXR (02/05/21) Poor inspiratory effort at this time. Stable cardiomegaly. S/p sternotomy and CABG surgery. Prominent interstitial and vascular markings again noted. Compatible with moderate vascular congestion. Cannot exclude interstitial pneumonitis. Continued follow-up is suggested. CXR (02/06/21) Feeding tube extends into the stomach. Endotracheal tube terminates 4.3 cm above the med. CXR (02/07/21) Lesser level of inspiration. Question of atelectasis right lower lobe. Endotracheal tube just above the med. CXR (02/08/21) Low level of inspiration with bibasilar discoid atelectasis, left greater than right. Lines and catheters again noted. Assessment/Plan: Pt is a 75 year old male with PMH of ESRD on HD on MWF with AV fistula in L arm, DM, restrictive lung disease, HFpEF with EF of 75%, CAD s/p CABG, aortic and mitral valve replacement who initially presented to the ED on 02/05/21 due to SOB after missing a dialysis session on 02/05/21. Pt SOB progressively worsened and he subsequently developed acute respiratory failure likely 2/2 fluid overload after missed dialysis session and had to be intubated. He received 2 sessions of dialysis thus far and had a total of 5 L of fluid removed. He was extubated today, 02/08/21, and has been sating in the high 90's on 2L nasal cannula. Pt was admitted to the medicine team from ICU after extubation for further management. #Acute hypercapnic respiratory failure likely 2/2 volume overload after missed dialysis session - Pt had to be intubated due to acute hypercapnic respiratory failure. This is likely 2/2 volume overload as pt missed dialysis on Friday due to increased anxiety. During intubation pt was sedated with Propofol and Versed PRN. - Pt has had 2 HD sessions during admission and had 2.5L fluid removed during each session, totalling 5L removed. Upon presentation pt weight was 95.45 kg and now he is currently 93.7 kg. He has had a net negative fluid balance. - Pt passed spontaneous breathing trial this morning and was subsequently extubated. He has been doing well on 2L O2 nasal cannula, sating in the high 90's. - Pt has coarse crackles to bilateral lung bases on examination, likely due to fluid overload. Pt will have another dialysis session tomorrow. Nephrology on board. - Continue hydrocortisone 50 mg Q8H IV. - Hold Ms Contin. - Pt will be placed on volume restriction and 2 gram sodium diet. Aspiration precautions and assisted feeding orders placed. - Will continue to monitor volume status with daily I's & O's. #Hypotension likely cardiogenic in etiology due to volume overload - Pt was hypotensive during and after extubation initially. He is now normotensi ve at 128/57. - Unlikely due to infectious process. Initially we were concerned about an infectious process but this is unlikely. Pt WBC has decreased to 11.9 and trending down since admission. Believe that this leukocytosis is likely reactive in nature 2/2 respiratory failure, intubation, and dexamethasone during admission as well as prednisone use prior to admission for eczema. Unlikely infection as procalcitonin is negative. Preliminary blood cultures have been negative with no growth. Will discontinue pt Pip/Tazo. - Levophed was given this AM to keep MAP >70. Will keep central line in place overnight. - Will continue to monitor. #Leukocytosis - Unlikely due to infectious process. Initially we were concerned about an infectious process but this is unlikely. Pt WBC has decreased to 11.9 and trending down since admission. - Believe that this leukocytosis is likely reactive in nature 2/2 respiratory failure, intubation, and dexamethasone during admission as well as prednisone use prior to admission for eczema. Looking back in pt records, it appears that pt has been on prednisone for several months, which is likely contributing to leukocytosis. - Procalcitonin is negative. Preliminary blood cultures have been negative with no growth. - Will discontinue pt Pip/Tazo at this time. #ESRD on HD (MWF) - Pt has hx of ESRD on HD on MWF. - He missed HD on Friday and subsequently developed fluid overload leading to acute hypercapnic respiratory failure. - AV fistula in L arm. - Pt received 2 sessions of HD during admission and had a total of 5L removed. He is currently in a net negative fluid status. - Pt still has coarse crackles in bilateral lower lung bases. Plan for HD session tomorrow as well. - Pt appears slightly confused after extubation however, given that pt has ESRD on HD, it is likely that sedation with Propofol and PRN Versed is having a prolonged effects due to impaired extrahepatic clearance by the kidneys. - Nephrology consulted and on board. - Continue Calcitrol 0.25 mcg MWF at 0900 PO. #CAD s/p CABG in 2002 - Pt has extensive cardiac hx with CABG done in 2002. - Continue Plavix 75 mg PO Daily. - Continue Atorvastatin 20 mg PO QHS. #S/p aortic and mitral valve replacement in 2016 - On echo done during this admission, showed well seated and normal appearing mitral valve bioprosthesis. - Continue Plavix 75 mg PO daily. 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 #Chronic back pain - Pt has hx of chronic back pain and follows with pain management in regards to his pain control. - Pt has only had the complaint of back pain since extubation. He was given Ms Contin 15 mg PO due to complaints of pain. - Pt appears slightly confused after extubation however, given that pt has ESRD on HD, it is likely that sedation with Propofol and PRN Versed is having a prolonged effects due to impaired extrahepatic clearance by the kidneys. - Will hold Ms Contin at this time. #CHF (HFpEF with EF of 75%) - Echo done during this admission shows LVEF of 75%. - Pt has Coreg ordered with holding parameters for SBP <100. - Volume status will be continued to be controlled with HD. - Will monitor volume status with I's & O's, volume restriction, 2g salt restriction. - Will have pt follow up with cardiology outpatient as routinely scheduled. #NIDDM - Continue sliding scale insulin with hypoglycemic precautions. - Frequent Accu-checks. - 2g sodium diet, diabetic/consistent carb diet. GI Prophylaxis: Protonix 40 mg IV Daily. DVT Prophylaxis: Heparin 5,000 units SC Q12H. Disposition: Pending clinical improvement. Total time spent greater than 35 minutes. VS,Fishbone, I+O VS, Fishbone, I+O Laboratory Tests 02/08/21 04:30 Vital Signs Date Time Temp Pulse Resp B/P (MAP) Pulse Ox O2 Delivery O2 Flow Rate FiO2 02/08/21 12:30 89 28 120/59 (79) 98 Nasal Cannula 2.0 02/08/21 12:00 97.6 02/08/21 11:41 28 I&O- Last 24 Hours up to 6 AM 02/08/21 06:00 Intake Total 470 ml Output Total 2552 ml Balance -2082 ml GME ATTESTATION GME ATTESTATION My faculty preceptor for this patient encounter was physically present during the encounter and was fully available. All aspects of the patient interview, examination, medical decision making process, and medical care plan development were reviewed and approved by the faculty preceptor. The faculty preceptor is aware and concurs with the plan as stated in the body of this note and will attest to such by his/her cosignature. ATTENDING NOTE I, Jamin Ochoa MD, have independently examined this patient and performed my own physical exam, as well as reviewed the documentation and edited where necessary. I have discussed in detail with the resident / student the findings and plan of treatment as documented by the resident / student and edited their note. I agree with their findings and treatment plan and have edited their documentation. Michelle SCOTT OMS-3 Feb 08, 2021 15:13 JAMIN OCHOA MD Feb 09, 2021 15:55
[2021-02-08] MEDS: DOCUSATE SODIUM 100MG CAPSULE PO SCH (20:46)
[2021-02-08] MEDS: ATORVASTATIN 20 MG TAB PO SCH (20:47)
[2021-02-09] VITALS (15 sets, daily range): BP systolic 81–148; BP diastolic 45–87
[2021-02-09] MEDS: HYDROCORTISONE 100 MG/2 ML VIAL (J1720 PER 1) IV SCH ×3 (04:31→23:07)
[2021-02-09 04:54] LABS: HEMATOCRIT 31.2 % (42.0-52.0); HEMOGLOBIN 10.1 g/dl (13.5-17.5); MEAN CORPUSCULAR HEMOGLOBIN 31.7 pg (27.0-33.0); MEAN CORPUSCULAR HGB CONC 32.4 g/dl (32.0-36.5); MEAN CORPUSCULAR VOLUME 97.8 fl (80.0-96.0); PLATELET COUNT, AUTOMATED 189 10^3/uL (150-450); RED BLOOD COUNT 3.19 10^6/uL (4.30-6.10); WHITE BLOOD COUNT 12.5 10^3/uL (4.0-10.0)
[2021-02-09 05:33] LABS: CALCIUM LEVEL 8.3 MG/DL (8.8-10.2); CREATININE FOR GFR 5.72 MG/DL (0.70-1.30); GLOMERULAR FILTRATION RATE 10.3 (>42); PHOSPHORUS LEVEL 8.8 MG/DL (2.5-4.9); POTASSIUM SERUM 4.6 MEQ/L (3.5-5.1)
[2021-02-09] MEDS: CLOPIDOGREL 75 MG TAB PO SCH (06:36)
[2021-02-09] MEDS: DOCUSATE SODIUM 100MG CAPSULE PO SCH ×2 (06:36→20:13)
[2021-02-09] MEDS: CALCITRIOL 0.25 MCG CAP (S0169) PO SCH (06:36)
[2021-02-09] MEDS: HumaLOG INSULIN (NovoLOG) PER UNIT SC SCH ×4 (07:30→20:15)
--- NOTE | 2021-02-09 08:16 | REP ---
INDICATION: RESPIRATORY FAILURE. COMPARISON: Comparison chest x-ray February 08, 2021 TECHNIQUE: Portable upright AP chest radiograph. FINDINGS: Patient is status post prior median sternotomy and apparently aortic valve replacement. Multiple mediastinal clips are noted as before. Monitoring electrodes are seen. A dorsal column stimulator is seen projecting in the thoracic spine. Mild cardiomegaly is again observed. There is coarse discoid atelectasis in the left base unchanged. This is improved on the right. No new infiltrate is seen.. IMPRESSION: Coarse platelike atelectasis left base unchanged. Improved aeration right base. No new infiltrate.. <Electronically signed by Eyad Kumar > 02/09/21 [id number]
[2021-02-09] MEDS: HEPARIN SOD (PORCINE) 5000UNITS/ML 1ML VIAL/SYRINGE SC SCH ×2 (08:22→20:15)
[2021-02-09] MEDS: PANTOPRAZOLE 40MG VIAL (C9113 PER 1) IV SCH (08:22)
[2021-02-09] MEDS: MORPHINE 15 MG SA TAB PO SCH (09:00)
[2021-02-09] MEDS ORDERED: LIDOCAINE 1% SDV 5ML VIAL SC PRN (09:20)
[2021-02-09] MEDS ORDERED: SODIUM CHLORIDE 0.9% 1000ML IV PRN (09:20)
--- NOTE | 2021-02-09 11:14 | IPNPDOC ---
Text Note Date of Service The patient was seen on 02/09/21. NOTE Subjective: Overnight, pt developed slight paresthesias to the R 4th and 5th digits but front end architect strength was normal. Pt does not complain of this issue this morning. Pt does not complain of this currently. Pt states that he is feeling much better today. He does not recall the events preceding his admission. Denies any increase in confusion, headaches, chest pain, increased SOB, abd pain, N/V/D, constipation. He states that he has been drinking without difficulty. Some erythema was noted on BLE but pt reports that this is a chronic issue and appears better than it usually does. Objective: VITALS: See below. GENERAL: Pt is sitting comfortably at rest in chair at bedside. No acute distress. He appears much more alert than he did yesterday. HEENT: NC/AT. EOMI. Conjunctiva and lids normal. No scleral icterus. CARDIOVASCULAR: Regular rate and rhythm. Distant heart sounds. 3/6 systolic murmur. No rubs or gallops. PULMONARY: Decreased breath sounds to b/l lung bases. Faint crackles heard on bilateral lung bases. No wheezes or rhonchi appreciated. Pt is sating in the high 90's on 2L O2 nasal cannula. ABDOMINAL: Abd is soft and non-tender to palpation. No guarding or rebound. Normoactive bowel sounds in all four quadrants. EXTREMITIES: No pitting edema to BLE. 2+ DP pulses bilaterally. Erythema to BLE, reported to be chronic according to pt; does not appear cellulitic. AV fistula to L arm, thrill present. NEUROLOGIC: No focal neurologic deficits appreciated. Imaging: CXR (02/05/21) Poor inspiratory effort at this time. Stable cardiomegaly. S/p sternotomy and CABG surgery. Prominent interstitial and vascular markings again noted. Compatible with moderate vascular congestion. Cannot exclude interstitial pneumonitis. Continued follow-up is suggested. CXR (02/06/21) Feeding tube extends into the stomach. Endotracheal tube terminates 4.3 cm above the med. CXR (02/07/21) Lesser level of inspiration. Question of atelectasis right lower lobe. Endotracheal tube just above the med. CXR (02/08/21) Low level of inspiration with bibasilar discoid atelectasis, left greater than right. Lines and catheters again noted. CXR (02/09/21) Coarse platelike atelectasis left base unchanged. Improved aeration right base. No new infiltrate. Assessment/Plan: Pt is a 75 year old male with PMH of ESRD on HD on MWF with AV fistula in L arm, DM, restrictive lung disease, HFpEF with EF of 75%, CAD s/p CABG, aortic and mitral valve replacement who initially presented to the ED on 02/05/21 due to SOB after missing a dialysis session on 02/05/21. Pt SOB progressively worsened and he subsequently developed acute respiratory failure likely 2/2 f luid overload after missed dialysis session and had to be intubated. He received 2 sessions of dialysis thus far and had a total of 5 L of fluid removed. He was extubated today, 02/08/21, and has been sating in the high 90's on 2L nasal cannula. Pt was admitted to the medicine team from ICU after extubation for further management. #Acute hypercapnic respiratory failure likely 2/2 volume overload after missed dialysis session - Pt had to be intubated due to acute hypercapnic respiratory failure. This is likely 2/2 volume overload as pt missed dialysis on Friday due to increased anxiety. During intubation pt was sedated with Propofol and Versed PRN. - Pt has had 2 HD sessions during admission and had 2.5L fluid removed during each session, totalling 5L removed. Upon presentation pt weight was 95.45 kg and now he is currently 93.7 kg. He has had a net negative fluid balance. - Pt was extubated yesterday morning and has been sating in the high 90's on 2L nasal cannula. - Plan for dialysis today with nephrology. - Continue hydrocortisone 50 mg Q8H IV. - Will start Ms Contin 15 mg PO once a day for his chronic pain. - Pt will be placed on volume restriction and 2 gram sodium diet. Aspiration precautions and assisted feeding orders placed. - Will continue to monitor volume status with daily I's & O's. #Hypotension likely cardiogenic in etiology due to volume overload - Pt was hypotensive during and after extubation initially. He is currently normotensive and has been normotensive overnight. - Unlikely due to infectious process. Initially we were concerned about an infec tious process but this is unlikely. Pt WBC has decreased to 11.9 and trending down since admission. Believe that this leukocytosis is likely reactive in nature 2/2 respiratory failure, intubation, and dexamethasone during admission as well as prednisone use prior to admission for eczema. Unlikely infection as procalcitonin is negative. Preliminary blood cultures have been negative with no growth. Will discontinue pt Pip/Tazo. - Levophed was given yesterday morning to keep MAP >70. - Will continue to monitor. #Leukocytosis - Unlikely due to infectious process. Initially we were concerned about an infectious process but this is unlikely. - Believe that this leukocytosis is likely reactive in nature 2/2 respiratory failure, intubation, and dexamethasone during admission as well as prednisone use prior to admission for restrictive lung disease and eczema. Looking back in pt records, it appears that pt has been on prednisone chronically, which is likely contributing to leukocytosis. - Pt was given Hydrocortisone 50 mg Q8H IV initially to prevent adrenal insufficiency. Will start decreasing/tapering hydrocortisone to 25 mg IV BID. - Procalcitonin is negative. Preliminary blood cultures have been negative with no growth. - Will discontinue pt Pip/Tazo at this time. #ESRD on HD (MWF) - Pt has hx of ESRD on HD on MWF. - He missed HD on Friday and subsequently developed fluid overload leading to acute hypercapnic respiratory failure. AV fistula in L arm. - Pt received 2 sessions of HD during admission and had a total of 5L removed. He is currently in a net negative fluid status. - Plan for hemodialysis today with nephrology. - Nephrology consulted and on board. - Continue Calcitrol 0.25 mcg MWF at 0900 PO. #CAD s/p CABG in 2002 - Pt has extensive cardiac hx with CABG done in 2002. - Continue Plavix 75 mg PO Daily. - Continue Atorvastatin 20 mg PO QHS. #S/p aortic and mitral valve replacement in 2016 - On echo done during this admission, showed well seated and normal appearing mitral valve bioprosthesis. - Continue Plavix 75 mg PO daily. 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 #Chronic back pain - Pt has hx of chronic back pain and follows with pain management in regards to his pain control. - Pt has only had the complaint of back pain since extubation. He was given Ms Contin 15 mg PO due to complaints of pain. - Pt appears slightly confused after extubation however, given that pt has ESRD on HD, it is likely that sedation with Propofol and PRN Versed is having a prolonged effects due to impaired extrahepatic clearance by the kidneys. - Ms Contin will be restarted at 15 mg PO once a day. #CHF (HFpEF with EF of 75%) - Echo done during this admission shows LVEF of 75%. - Pt has Coreg ordered with holding parameters for SBP <100. - Volume status will be continued to be controlled with HD. - Will monitor volume status with I's & O's, volume restriction, 2g salt restriction. - Will have pt follow up with cardiology outpatient as routinely scheduled. #NIDDM - Continue sliding scale insulin with hypoglycemic precautions. - Frequent Accu-checks. - 2g sodium diet, diabetic/consistent carb diet. GI Prophylaxis: Protonix 40 mg IV Daily. DVT Prophylaxis: Heparin 5,000 units SC Q12H. Disposition: Pending clinical improvement. Downgrade pt from ICU to PCU with telemetry. PT/OT evaluation ordered. VS,Fishbone, I+O VS, Fishbone, I+O Laboratory Tests 02/09/21 04:33 Vital Signs Date Time Temp Pulse Resp B/P (MAP) Pulse Ox O2 Delivery O2 Flow Rate FiO2 02/09/21 06:00 82 132/60 (84) 98 Nasal Cannula 2.0 02/09/21 04:00 97.1 18 02/08/21 11:41 28 I&O- Last 24 Hours up to 6 AM 02/09/21 06:00 Intake Total 452 ml Output Total 0 ml Balance 452 ml GME ATTESTATION GME ATTESTATION My faculty preceptor for this patient encounter was physically present during the encounter and was fully available. All aspects of the patient interview, examination, medical decision making process, and medical care plan development were reviewed and approved by the faculty preceptor. The faculty preceptor is aware and concurs with the plan as stated in the body of this note and will attest to such by his/her cosignature. ATTENDING NOTE I, Jamin Ochoa MD, have independently examined this patient and performed my own physical exam, as well as reviewed the documentation and edited where necessary. I have discussed in detail with the resident / student the findings and plan of treatment as documented by the resident / student and edited their note. I agree with their findings and treatment plan and have edited their documentation. Michelle SCOTT OMS-3 Feb 09, 2021 08:21 JAMIN OCHOA MD Feb 09, 2021 15:58
--- NOTE | 2021-02-09 17:50 | IPN ---
PROGRESS NOTE DATE: 02/09/2021 SUBJECTIVE: Patient seen and examined this morning at the bedside in the hemodialysis unit receiving his treatment. He was extubated yesterday. He denies any complaints today, except for trouble with his right 4th and 5th digits. He recalls skipping dialysis on Friday and is insistent that he will be more compliant with fluid restriction and dialysis treatments going forward after this hospitalization. He denies any shortness of breath currently while at rest but has not been out of bed since hospitalization. Temperature 97.9, pulse 87, respiratory rate 20, blood pressure 142/66, saturating 97% on 2 liters nasal cannula. Dialysis today removed 2.5 liters. GENERAL: Patient is seen in the dialysis unit receiving his treatment, awake, alert, oriented times three, and in no distress, conversational. Extraocular muscles are intact. Tongue is moist. Neck is supple. The central line in the left internal jugular (IJ) has been removed. HEART: Sound are regular, S1, S2. There is a systolic murmur. The peripheral edema is resolved, but there is 1+ dependent edema in the hip and sacral area. LUNGS: Show symmetric breath sounds bilaterally, which are diminished at the bases. There is no accessory muscle use nor tachypnea. He is saturating well on 2 liters nasal cannula. ABDOMEN: Soft and nontender. EXTREMITIES: Show fistula in the left arm, which is patent and in use. NEUROLOGIC: He is at baseline mentation, interactive, conversational, and oriented. He has only foggy memory of the events preceding this hospitalization. White count 12.5, hemoglobin 10.1, platelets 189. Sodium 133, potassium 4.6, calcium 8.3, phosphorus 8.8. Chest x-ray done today shows atelectasis of the left base and improved aeration on the right. INPATIENT MEDICATIONS: Reviewed by myself. His carvedilol was discontinued. His hydrocortisone is being weaned down, now on 25 mg intravenous (IV) every 12 hours. His MS Contin is also being weaned down, and I am starting him back of PhosLo with meals. PROBLEMS: 1. End-stage renal disease, on hemodialysis on a Friday, Friday, Friday schedule. Patient is chronically noncompliant with fluid restriction and is usually in a state of significant fluid overload, at least 5-6 kg above his dry weight. This time he needed to be intubated after missing his dialysis treatment and coming in with hypercapnic respiratory failure. He is being dialyzed today with 2.5 liters of fluid removed, and he states he will be more compliant with fluid restriction and dialysis going forward, and I reviewed the same with him today at the bedside. Next dialysis treatment will likely be on Friday, but I will arrange for an extra treatment on Friday if there is time available in the inpatient unit. 2. Diastolic congestive heart failure. Echocardiogram done on February 06 reviewed with left ventricular ejection fraction (LVEF) 75%. I am adding a 1.5 liters fluid restriction to his diet order. The patient chronically has trouble restricting his fluids and is usually in volume overload. 3. Secondary hyperparathyroidism of renal origin. The patient's phosphorus level is up to 8.8, and now that he is back on a diet I am ordering PhosLo with his meals. 4. Hypotension. Patient was previously requiring Levophed while he was intubated intermittently, and his carvedilol was discontinued. He tolerated dialysis well today with 2.5 liters of fluid removed. He has been on stress-dose steroids, hydrocortisone 50 mg IV every 8 hours, and this is being weaned by the primary team. Patient was previously receiving prednisone (for what indication I am not sure), and that will be resumed as per the primary service. 5. Anemia of chronic renal failure. Hemoglobin is 10.1, which is optimal and at goal.
[2021-02-09] MEDS: CALCIUM ACETATE 667MG GELCAP PO SCH (18:00)
[2021-02-09] MEDS: ATORVASTATIN 20 MG TAB PO SCH (20:13)
[2021-02-09] MEDS: MORPHINE 2 MG/ML 1ML VIAL (J2270) IV PRN (23:07)
[2021-02-10] VITALS: BP 99/49
[2021-02-10] MEDS ORDERED: MORPHINE 15 MG SA TAB PO ONE (00:25)
[2021-02-10 04:00] VITALS: BP 117/62
[2021-02-10 06:25] LABS: HEMATOCRIT 34.5 % (42.0-52.0); HEMOGLOBIN 10.8 g/dl (13.5-17.5); MEAN CORPUSCULAR HEMOGLOBIN 31.2 pg (27.0-33.0); MEAN CORPUSCULAR HGB CONC 31.3 g/dl (32.0-36.5); MEAN CORPUSCULAR VOLUME 99.7 fl (80.0-96.0); PLATELET COUNT, AUTOMATED 213 10^3/uL (150-450); RED BLOOD COUNT 3.46 10^6/uL (4.30-6.10); WHITE BLOOD COUNT 12.4 10^3/uL (4.0-10.0)
[2021-02-10 06:47] LABS: ALBUMIN 3.2 GM/DL (3.2-5.2); CALCIUM LEVEL 8.6 MG/DL (8.8-10.2); GLOMERULAR FILTRATION RATE 15.6 (>42); PHOSPHORUS LEVEL 4.5 MG/DL (2.5-4.9); POTASSIUM SERUM 3.9 MEQ/L (3.5-5.1)
[2021-02-10] MEDS: HumaLOG INSULIN (NovoLOG) PER UNIT SC SCH ×4 (07:18→20:21)
[2021-02-10 08:00] VITALS: BP 114/85
--- NOTE | 2021-02-10 08:23 | REP ---
INDICATION: RESPIRATORY FAILURE. COMPARISON: Comparison chest x-ray February 09, 2021 TECHNIQUE: Portable semi-erect AP radiograph. FINDINGS: EKG monitoring electrodes are seen. The patient is status post median sternotomy, aortic valve replacement, and dorsal column stimulator placement. There is advanced arthropathy at the shoulders. Heart is enlarged unchanged. Bibasilar platelike atelectatic changes are seen. No acute infiltrate is appreciated.. IMPRESSION: Bibasilar platelike atelectatic changes. Postoperative changes. Cardiomegaly.. <Electronically signed by Eyad Kumar > 02/10/21 [id number]
[2021-02-10] MEDS: CALCIUM ACETATE 667MG GELCAP PO SCH ×3 (08:31→17:38)
[2021-02-10] MEDS: DOCUSATE SODIUM 100MG CAPSULE PO SCH ×2 (08:31→20:28)
[2021-02-10] MEDS: CLOPIDOGREL 75 MG TAB PO SCH (08:31)
[2021-02-10] MEDS: PANTOPRAZOLE 40MG VIAL (C9113 PER 1) IV SCH (08:32)
[2021-02-10] MEDS: HEPARIN SOD (PORCINE) 5000UNITS/ML 1ML VIAL/SYRINGE SC SCH ×2 (08:32→20:28)
[2021-02-10] MEDS: MORPHINE 15 MG SA TAB PO SCH (08:40)
--- NOTE | 2021-02-10 10:42 | IPNPDOC ---
Text Note Date of Service The patient was seen on 02/10/21. NOTE Subjective: Patient seen at bedside today. He is doing well today. He did have some pain in his back over the night and was given MS Contin [he did not take his morning dose of MS Contin yesterday] this morning he denies having any back pain, he was sitting in chair and just had his breakfast when I went in. Denies having any throat pain, difficulty in swallowing, chest pain, abdominal pain, N/V/D, constipation. 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 And erythema in bilateral lower extremities as the patient his legs looked a lot better today. Objective: Physical exam: General: Patient is alert oriented 3, sitting in bed comfortably and just had his precursors. No acute distress. HEENT: Patient does have some mild redness and right conjunctival which has been present all during the hospital stay. Denies having any vision changes. Cardiac: Regular rate and rhythm, S1-S2 normal, he does have a systolic murmur 3/6. No rubs or gallops. Respiratory: Patient has mild crackles noted in bilateral lung bases, diminished breath sounds [better than yesterday], no wheezes or rhonchi appreciated. He is saturating well 94-98 on 1 L of nasal cannula. Abdomen: Soft, nontender on palpation. Normal bowel sounds heard in all 4 quadrants. Extremities: He has bilateral 2+ pedal pulses. Erythema noted in bilateral lower extremities extending up to the midcalf region does not look like cellulitis and as per patient it has been a chronic issue and his legs look a lot better today. He had 1+ pitting noted on his left leg over the tibial vizcaino. He does have an AV fistula on his left arm. Neurological: No focal deficits appreciated, 4+ strength and upper and lower extremities. Imaging: CXR (02/05/21) Poor inspiratory effort at this time. Stable cardiomegaly. S/p sternotomy and CABG surgery. Prominent interstitial and vascular markings again noted. Compatible with moderate vascular congestion. Cannot exclude interstitial pneumonitis. Continued follow-up is suggested. CXR (02/06/21) Feeding tube extends into the stomach. Endotracheal tube terminates 4.3 cm above the med. CXR (02/07/21) Lesser level of inspiration. Question of atelectasis right lower lobe. Endotracheal tube just above the med. CXR (02/08/21) Low level of inspiration with bibasilar discoid atelectasis, left greater than right. Lines and catheters again noted. CXR (02/09/21) Coarse platelike atelectasis left base unchanged. Improved aeration right base. No new infiltrate. Chest x-ray [02/10/2021]: Reported as bilateral plate like atelectasis changes. Postoperative changes. Cardiomegaly. Assessment: Patient is a 75-year-old male with a past medical history of ESRD on hemodialysis on Friday with AV fistula in the left thumb, DM, restrictive lung disease, heart failure presented an ejection fraction of 75%, CAD A/B CABG, aortic and mitral valve replacement who initially presented to ED on 02/05/2021 due to shortness of breath after missing a dialysis session on . Patient shortness of breath progressively worsened and he subsequently developed an acute respiratory failure likely secondary to fluid overload after missing dialysis session and had to be intubated. He received 2 sessions of dialysis when he was intubated and a total full fluid of 5 L were removed. He was extubated on 02/08/21 and saturating in the high 90s on 2 L of NC. Patient was admitted to medical team from ICU after extubation and for further management. Acute hypercapnic respiratory failure likely secondary to volume overload after missing dialysis: - Patient was extubated on 02/08/21, he was initially on 2 L of nasal cannula today he is on 1 L of nasal cannula and saturating 94-98. - He had 2 dialysis session when he was intubated and he had 1 dialysis session after extubation. He had a negative balance of 1790 yesterday. - Patient was taking prednisone outpatient for his interstitial disease and was given stress dose steroids when he was intubated hydrocortisone 50 mg every 8 hours IV, his steroids were decreased dose yesterday and he is right now getting hydrocortisone 25 mg twice a day. Will gradually taper the dose. - Continue MS Contin 15 mg once daily for his chronic pain. - Continue fluid restriction and 2 g sodium diet. Aspiration precautions and assist in feeding order in place however patient may not need assisted feeding as he was eating by himself. - Continue to monitor I's and O's Hypotension likely cardiogenic due to volume overload: Patient was hypotensive during and after extubation initially, but is now normotensive. Unlikely infection as his white count was normal and ProcalAmine negative and was trending down. His mild elevation of leukocytosis is likely reactive due to respiratory failure/intubation/dexamethasone use. - Blood cultures were negative with no growth, antibiotics were stopped as a result. - Patient's blood pressure was soft after dialysis yesterday but continued to be more than 100 SBP ,we will keep a watch on it. Leukocytosis Unlikely infection has his white count is trending down and pro-calcitonin was negative. Likely because of his steroid use. Patient was taking prednisone outpatient and was given stress dose steroids during the intubation and his steroid is gradually being tapered down today he is on hydrocortisone 25 mg twice a day we will continue that for couple of days and try to taper that down. ESRD on hemodialysis [Friday schedule]: -Patient missed dialysis on Friday and subsequently developed fluid overload ending up and acute hypercarbic respiratory failure. - Patient had 2 sessions of HD during intubation and one HD after extubation. - Continue Calcitrol 0.25 mcg MWF at 0900 by mouth. CAD S/P CABG in 2002/; - Extended cardiac history CABG done in 2002. Continue Plavix 75 mg by mouth daily Continue atorvastatin 20 mg by mouth daily at bedtime S/p aortic and mitral valve replacement in 2016: We will continue Plavix 75 mg by mouth daily. Patient will follow with cardiology as scheduled outpatient. Chronic back pain: Patient had a history of chronic back pain and follows with pain management. - Patient reports he take this MS Contin and used to take MS Contin 4 times a day and has cut down gradually right now he is taking outpatient daily once. - Continue MS Contin once daily for pain. CHF [HFpEF with EF of 75%]: Echo done during this admission shows an left ventricular ejection fraction of 75%. We'll continue Coreg Monitor I's and O's volume restriction, 2 g sodium diet. - Follow with cardiology outpatient NIDDM: On sliding scale insulin with hypoglycemic protocol precautions in place. - 2 g sodium diet and consistent carbohydrate diet. GI prophylaxis: Protonix 40 mg by mouth daily DVT prophylaxis: Heparin 5000 units subcutaneous every 12 hours. Disposition: With downgrade patient from [facility] to [facility]. PT OT evaluation in place as he was intubated he is slightly deconditioned. Based on his clinical improvement he might be discharge in a day or 2 to his regular dialysis schedule Friday outpatient. VS,Conniee, I+O VS, Fishbone, I+O Laboratory Tests 02/10/21 06:06 Vital Signs Date Time Temp Pulse Resp B/P (MAP) Pulse Ox O2 Delivery O2 Flow Rate FiO2 02/10/21 08:40 18 02/10/21 08:00 97.8 96 114/85 (95) 95 Nasal Cannula 1.0 02/08/21 11:41 28 I&O- Last 24 Hours up to 6 AM 02/10/21 06:00 Intake Total 830 ml Output Total 2500 ml Balance -1670 ml Anurag Baker MD Feb 10, 2021 10:42
[2021-02-10] MEDS: HYDROCORTISONE 100 MG/2 ML VIAL (J1720 PER 1) IV SCH (11:34)
[2021-02-10] MEDS: MORPHINE 2 MG/ML 1ML VIAL (J2270) IV PRN ×2 (14:18→22:51)
--- NOTE | 2021-02-10 15:58 | IPN ---
PROGRESS NOTE DATE: 02/10/2021 Mr. Mckeon is seen this morning on his bedside. He is sitting in the chair at the time of my visit. He was dialyzed yesterday and he tolerated it well. His dyspnea has improved. He denies any nausea or vomiting. He has no fever or chills. On physical exam, temperature 97.8 degrees Fahrenheit, heart rate 96 per minute, and respiratory rate 18 per minute. Blood pressure 114/85 mmHg and oxygen saturation 95% on 1 liter oxygen. His head is atraumatic. Mild facial edema is noticed. Neck supple and jugular venous distention (JVD) difficult to be assessed. His heart sounds irregular and lungs with slightly diminished breath sounds and basilar rales. Abdomen obese, soft, and nontender. Extremities without any cyanosis or clubbing. Neurologically he is at his baseline mentation. Today's labs show WBC count 12.4, hemoglobin 10.8, and hematocrit 34.5. Sodium 135, potassium 3.9, CO2 25, BUN 24, and creatinine 4.0. PROBLEMS: 1. Shortness of breath. His volume status improved significantly with hemodialysis and 2.5 liters fluid removal yesterday. We plan to perform another ultrafiltration today and remove another 2 or 2.5 liters of fluid as tolerated. 2. End-stage renal disease. Patient has been very well dialyzed after he missed one treatment before admission. He was dialyzed yesterday and doing very well with stable electrolytes. 3. Anemia. Anemia is stable at present and does not need any urgent intervention. 4. Anxiety. Patient does have significant anxiety, however, he is doing well at present. I would recommend to adjust his medications for outpatient purpose as he does get into severe anxiety vicious cycle leading to excessive fluid intake and causing decompensated congestive heart failure.
[2021-02-10 16:25] VITALS: BP 115/62
[2021-02-10] MEDS: ATORVASTATIN 20 MG TAB PO SCH (20:28)
[2021-02-10 22:00] VITALS: BP 114/64
[2021-02-11] MEDS: HYDROCORTISONE 100 MG/2 ML VIAL (J1720 PER 1) IV SCH (00:19)
[2021-02-11 06:00] VITALS: BP 102/52
[2021-02-11 06:23] LABS: HEMATOCRIT 37.2 % (42.0-52.0); HEMOGLOBIN 11.6 g/dl (13.5-17.5); MEAN CORPUSCULAR HGB CONC 31.2 g/dl (32.0-36.5); MEAN CORPUSCULAR VOLUME 99.5 fl (80.0-96.0); PLATELET COUNT, AUTOMATED 202 10^3/uL (150-450); RED BLOOD COUNT 3.74 10^6/uL (4.30-6.10); WHITE BLOOD COUNT 11.9 10^3/uL (4.0-10.0)
[2021-02-11 06:55] LABS: ALBUMIN 3.4 GM/DL (3.2-5.2); CALCIUM LEVEL 9.8 MG/DL (8.8-10.2); CREATININE FOR GFR 6.26 MG/DL (0.70-1.30); GLOMERULAR FILTRATION RATE 9.3 (>42); PHOSPHORUS LEVEL 5.9 MG/DL (2.5-4.9); POTASSIUM SERUM 4.2 MEQ/L (3.5-5.1)
[2021-02-11] MEDS: CLOPIDOGREL 75 MG TAB PO SCH (07:44)
[2021-02-11] MEDS: HumaLOG INSULIN (NovoLOG) PER UNIT SC SCH (07:44)
[2021-02-11] MEDS: CALCIUM ACETATE 667MG GELCAP PO SCH (07:44)
[2021-02-11] MEDS: DOCUSATE SODIUM 100MG CAPSULE PO SCH (07:45)
[2021-02-11] MEDS: HEPARIN SOD (PORCINE) 5000UNITS/ML 1ML VIAL/SYRINGE SC SCH (07:46)
[2021-02-11] MEDS: MORPHINE 15 MG SA TAB PO SCH (07:46)
[2021-02-11] MEDS ORDERED: PANTOPRAZOLE 40MG TAB (PROTONIX) PO SCH (09:00)
[2021-02-11] MEDS ORDERED: DOK1CAP7 PO (09:28)
[2021-02-11] MEDS ORDERED: MORP15TA2 PO (09:28)
--- NOTE | 2021-02-11 10:42 | IPN ---
PROGRESS NOTE DATE: 02/11/2021 SUBJECTIVE: Mr. Mckeon is seen this morning at his bedside. He underwent hemodialysis yesterday and 2.5 liters of fluid were removed with ultrafiltration. The patient is feeling much better and his dyspnea has improved. His oxygen saturation is 97% on room air. He denies any nausea or vomiting. OBJECTIVE: On physical exam: VITAL SIGNS: Temperature 97.8 degrees Fahrenheit, heart rate 90 per minute and respiratory rate 18 per minute. Blood pressure 102/52 mmHg and oxygen saturation 97% on room air. HEENT: Head is atraumatic. NECK: Supple and JVD difficult to be assessed. HEART: Sounds irregular. LUNGS: Clear to auscultation. ABDOMEN: Obese, soft, and nontender, bowel sounds normal. EXTREMITIES: Without any cyanosis or clubbing. Lower extremity edema seems much better. NEURO: He is somewhat tremulous but without any focal deficit. Today's labs show WBC count 11.9, hemoglobin 11.6, and hematocrit 37.2. Sodium 139, potassium 4.2, CO2 25, BUN 47, and creatinine 6.26. Bilirubin 9.8 and phosphorus 5.9. PROBLEMS: 1. [id number] congestive heart failure. The patient was decompensated on admission due to noncompliance with fluid restriction and dialysis. Volume status has improved with aggressive fluid removal during this hospital stay. The patient understands to follow fluid restriction of 1500 mL per day and 2 gm sodium diet. 2. End-stage renal disease. The patient is on maintenance hemodialysis on Friday, Friday and Friday schedule. The patient will go to outpatient dialysis clinic tomorrow. 3. Hyponatremia related to volume overload and has improved and resolved with fluid removal. No further intervention is needed. 4. Anemia. Anemia is stable and does not need any intervention at present. 5. Disposition: From renal standpoint the patient can be discharged to home today and follow up in outpatient dialysis clinic. His regular dialysis will be scheduled for tomorrow.
--- NOTE | 2021-02-11 11:47 | DS.PDOC ---
Discharge Summary General Date of Admission Feb 06, 2021 at 00:00 Date of Discharge 02/11/2021 Attending Physician: MICHEL MELGOZA MD Discharge Summary PROCEDURES PERFORMED DURING STAY: Required intubation ADMITTING DIAGNOSES: Hypoxemic hypercarbic respiratory failure DISCHARGE DIAGNOSES: Hypoxemic hypercarbic respiratory failure Acute on chronic congestive heart failure i/s/o missed HD ESRD on HD CAD status post CABG Restrictive lung disease follow up with Dr. Cruz Diabetes not insulin-dependent Bladder cancer COMPLICATIONS/CHIEF COMPLAINT: Acute On Chronic Respiratory Failure With Hypoxia. HISTORY OF PRESENT ILLNESS: 75-year-old M with extensive medical history including ESRD on HD MWF, diabetes, restrictive lung disease on chronic steroids, CHF, CAD with CABG, bladder cancer, aortic and mitral valve replacements who presents to [facility] ED with shortness of breath, i/s/o missing HD session. HOSPTIAL COURSE: In the ED he was hypoxemic and placed on BiPAP and all history was obtained from his Tatianna as the patient was on BiPAP sleeping and very difficult to arouse. Tatianna who reported that a lot of his problems are related to his panic attacks they have become more frequent lately and they stem from concern over his extensive medical history and that he is afraid of dying. In the emergency department nephrology Dr. Hope was contacted who recommended Kayexalate and hemodialysis the next morning. Initial ABG showed a pH of 7.1, pCO2 80, pO2 51 and he had a leukocytosis to 18. He was kept on BiPAP up to 23/6, and did not seem to improve as pH still remained at 7.13, pCO2 of 98 and he remained incoherent and minimally responsive therefore a decision was made to intubate. He was intubated on 02/09 and switched to stress dose steroids given his history of chronic steroid therapy, given empiric antibiotics and had dialysis on day 2 AM with tremendous improvement and was extubated late 02/09. He did well on 02.10 and was on room air and euvolemic on exam. He is now being discharged home with PCP and nephrology follow up with emphasis to strictly adhere to HD schedule. Of note, he was also on TIDP MS contin that makes him very lethargic and it has been reduced to 15mg daily PRN. DISCHARGE MEDICATIONS: Please see below. ALLERGIES: Please see below. PHYSICAL EXAMINATION ON DISCHARGE: VITAL SIGNS: Please see below. General: Alert oriented 3, sitting in bed comfortably. No acute distress. HEENT: NCAT, EOMI, MMM Cardiac: Regular rate and rhythm, S1-S2 normal, he does have a systolic murmur 3/6. No rubs or gallops. Respiratory: Bibasilar crackles noted, much improved air movement than prior, no wheezes or rhonchi appreciated. He is saturating well 94-98 on room air. Abdomen: Soft, nontender on palpation. Normal bowel sounds heard in all 4 quadrants. Extremities: Much improved 1+ pedal pulses. Has AV fistula on his left arm with a palpable thrill. Neurological: No focal deficits appreciated, 4+ strength and upper and lower ex tremities. LABORATORY DATA: Please see below. IMAGING: CXR (02/05/21) Poor inspiratory effort at this time. Stable cardiomegaly. S/p sternotomy and CABG surgery. Prominent interstitial and vascular markings again noted. Compatible with moderate vascular congestion. Cannot exclude interstitial pne umonitis. Continued follow-up is suggested. CXR (02/06/21) Feeding tube extends into the stomach. Endotracheal tube terminates 4.3 cm above the med. CXR (02/07/21) Lesser level of inspiration. Question of atelectasis right lower lobe. Endotracheal tube just above the med. CXR (02/08/21) Low level of inspiration with bibasilar discoid atelectasis, left greater than right. Lines and catheters again noted. CXR (02/09/21) Coarse platelike atelectasis left base unchanged. Improved aeration right base. No new infiltrate. Chest x-ray (02/10/2021): Bilateral plate like atelectasis changes. Postoperative changes. Cardiomegaly. PROGNOSIS: Good, with strict medical recommendations adherence ACTIVITY: As tolerated DIET: Renal, 2g sodium DISCHARGE PLAN: Home with PCP and nephrology f/u. Reduce MS contin use to once daily as needed DISPOSITION: Home DISCHARGE INSTRUCTIONS: Home with PCP and nephrology f/u ITEMS TO FOLLOWUP ON ON OUTPATIENT: ESRD on HD CHF DISCHARGE CONDITION: Stable TIME SPENT ON DISCHARGE: 56 minutes. Vital Signs/I&Os Vital Signs Date Time Temp Pulse Resp B/P (MAP) Pulse Ox O2 Delivery O2 Flow Rate FiO2 02/11/21 07:46 16 Room Air 02/11/21 06:00 97.8 91 102/52 (69) 97 02/10/21 08:00 1.0 02/08/21 11:41 28 I&O- Last 24 Hours up to 6 AM 02/11/21 06:00 Intake Total 950 ml Output Total 2500 ml Balance -1550 ml Laboratory Data Labs 24H Laboratory Tests 2 02/10/21 11:16: Bedside Glucose (Misc Panel) 95 02/10/21 17:15: Bedside Glucose (Misc Panel) 130H 02/10/21 20:03: Bedside Glucose (Misc Panel) 109 02/11/21 05:44: Nucleated Red Blood Cells % (auto) 0.0, Anion Gap 15, Glomerular Filtration Rate 9.3L, Calcium Level 9.8, Phosphorus Level 5.9#H, Albumin 3.4 CBC/BMP Laboratory Tests 02/11/21 05:44 FSBS Laboratory Tests Test 02/10/21 11:16 02/10/21 17:15 02/10/21 20:03 Range/Units Bedside Glucose (Misc Panel) 95 130 109 83-110 MG/DL Microbiology Microbiology 02/06/21 Blood Culture - Final, Complete NO GROWTH AFTER 5 DAYS 02/06/21 Blood Culture - Final, Complete NO GROWTH AFTER 5 DAYS 02/05/21 Respiratory Virus Panel (PCR) (KEITH) - Final, Complete Discharge Medications Scheduled Atorvastatin Calcium (Atorvastatin Calcium) 20 Mg Tablet, 20 MG PO QHS, (Reported) Calcitriol (Calcitriol) 0.25 Mcg Capsule, 0.25 MCG PO 3XW, (Reported) FRIDAY, FRIDAY AND FRIDAY WITH DIALYSIS Calcium Acetate (Calcium Acetate) 667 Mg Capsule, 667 MG PO WM, (Reported) Calcium Carbonate/Vitamin D3 (Calcium 600-Vit D3 800 Tablet) 1 Each Tablet, 1 TAB PO QHS, (Reported) Carvedilol (Carvedilol) 3.125 Mg Tablet, 3.125 MG PO BID, (Reported) Cholecalciferol (Vitamin D3) (Vitamin D3) 100 Mcg (4000 Unit) Capsule, 100 MCG PO DAILY, (Reported) Clopidogrel Bisulfate (Plavix) 75 Mg Tablet, 75 MG PO DAILY, (Reported) Docusate Sodium (Dok) 100 Mg Capsule, 100 MG PO BID Duloxetine Hcl (Duloxetine HCl) 60 Mg Capsule.dr, 60 MG PO QHS, (Reported) Famotidine (Famotidine) 20 Mg Tablet, 20 MG PO DAILY, (Reported) Fluticasone Propionate (Flonase Allergy Relief) 9.9 Ml [place].susp, 2 SPRAYS NA DAILY, (Reported) Hydroxyzine HCl (Hydroxyzine HCl) 10 Mg Tablet, 30 MG PO BID, (Reported) L.acidoph/L.bulg/B.bif/S.therm (Bacid Caplet) 1 Each Tablet, 1 TAB PO QHS, (Reported) Mirtazapine (Remeron) 15 Mg Tablet, 15 MG PO QHS, (Reported) Multivitamins (Thera M Plus Tablet) 1 Each Tablet, 1 TAB PO DAILY, (Reported) Naldemedine Tosylate (Symproic) 0.2 Mg Tablet, 0.2 MG PO DAILY, (Reported) Prednisone (Prednisone) 1 Mg Tablet, 4 MG PO DAILY, (Reported) TAKES WITH 10MG FOR 14MG TOTAL Prednisone (Prednisone) 10 Mg Tablet, 10 MG PO DAILY, (Reported) TAKES WITH 4MG FOR 14MG TOTAL Tiotropium [place] (Spiriva Respimat) 4 Gm Mist.inhal, 2 PUFF INH DAILY, (Reported) Torsemide (Torsemide) 100 Mg Tablet, 100 MG PO DAILY, (Reported) HAS NOT STARTED YET; TOOK 40MG ON 02/05/21 Ubidecarenone (Co Q-10) 200 Mg Capsule, 200 MG PO DAILY, (Reported) Scheduled PRN Albuterol Sulf (Albuterol Sulfate) 2.5 Mg/3 Ml Vial.neb, 2.5 MG INH QID PRN for SHORTNESS OF BREATH, (Reported) Albuterol Sulfate (Proair Hfa) 8.5 Gm Hfa.aer.ad, 2 PUFF INH Q4H PRN for SHORTNESS OF BREATH, (Reported) Benzonatate (Tessalon Perle) 100 Mg Capsule, 100 MG PO Q8H PRN for COUGH, (Reported) Morphine Sulfate (Morphine Sulfate) 15 Mg Tablet, 15 MG PO DAILYPRN PRN for PAIN Nitroglycerin (Nitrostat) 0.4 Mg Tab.subl, 0.4 MG SL NITRO PRN for CHEST PAIN, (Reported) Polyethylene Glycol 3350 (Miralax) 17 Gm Powd.pack, 17 GM PO DAILY PRN for CONSTIPATION, (Reported) Allergies Coded Allergies: aspirin (Verified Allergy, Severe, LIPS SWELL, 03/29/19) Penicillins (Verified Allergy, Intermediate, RASH, 04/15/19) ampicillin (Verified Allergy, Intermediate, HIVES, 03/17/19) ceftriaxone (Verified Allergy, Unknown, UNKNOWN REACTION, 04/09/19) MICHEL MELGOZA MD Feb 11, 2021 09:46
== END 2021-02-11 11:53 | disposition home or self-care (01) | DRG 208 ==
LOC: M ED 21:07 → M ED INP 02-06 → ENRESERV 02-06 00:14 → M ICU 02-06 01:52 → M MSPAV 02-10 14:40
PROVIDERS: ADMIT Family Medicine; ATTEND Internal Medicine
PROC: 5A1945Z Respiratory Ventilation, 24-96 Consecutive Hours (ICD-10-PCS; principal; 2021-02-06)
PROC: 0BH17EZ Insertion of Endotracheal Airway into Trachea, Via Natural or Artificial Opening (ICD-10-PCS; 2021-02-06)
PROC: 02HV33Z Insertion of Infusion Device into Superior Vena Cava, Percutaneous Approach (ICD-10-PCS; 2021-02-06)
PROC: 5A1D70Z Performance of Urinary Filtration, Intermittent, Less than 6 Hours Per Day (ICD-10-PCS; 2021-02-06)
DX: J96.02 Acute respiratory failure with hypercapnia (principal); I50.33 Acute on chronic diastolic (congestive) heart failure; N18.6 End stage renal disease; I13.2 Hypertensive heart and chronic kidney disease with heart failure and with stage 5 chronic kidney disease, or end stage renal disease; N25.81 Secondary hyperparathyroidism of renal origin; J96.01 Acute respiratory failure with hypoxia; E11.22 Type 2 diabetes mellitus with diabetic chronic kidney disease; I25.10 Atherosclerotic heart disease of native coronary artery without angina pectoris; Z95.1 Presence of aortocoronary bypass graft; Z95.2 Presence of prosthetic heart valve; Z85.51 Personal history of malignant neoplasm of bladder; J98.4 Other disorders of lung; F41.0 Panic disorder [episodic paroxysmal anxiety]; E87.5 Hyperkalemia; L30.9 Dermatitis, unspecified; D63.1 Anemia in chronic kidney disease; I87.2 Venous insufficiency (chronic) (peripheral); Z79.52 Long term (current) use of systemic steroids; Z79.899 Other long term (current) drug therapy; Z79.02 Long term (current) use of antithrombotics/antiplatelets; Z88.0 Allergy status to penicillin; Z88.1 Allergy status to other antibiotic agents; Z88.6 Allergy status to analgesic agent; Z99.2 Dependence on renal dialysis; Z91.15 Patient's noncompliance with renal dialysis; Z98.41 Cataract extraction status, right eye; Z96.642 Presence of left artificial hip joint; Z98.42 Cataract extraction status, left eye; Z91.14 Patient's other noncompliance with medication regimen; Z87.891 Personal history of nicotine dependence

== ENCOUNTER → 2021-03-15 | Outpatient (REF) | payer MEDICARE, OTHER ==
[~2021-03-15] MED LIST changes: +BACTDSTA PO; +DOK1CAP7 PO; +FAMO20TA4 PO; +FLON1SPR; +HYDR-643 PO; +LIDO1CRE42 TOP; -LIDO2.5C15 TOP; +MIRA1POW3 PO; +MIRT-62 PO; +NITR4TASL SL; -SULF1TAB93 PO; +TESS100C PO
[2021-03-15 12:58] LABS: INR 0.99; PARTIAL THROMBOPLASTIN TIME 29.1 SECONDS (24.2-38.5); PROTHROMBIN TIME 13.3 SECONDS (12.5-14.3)
== END ==
LOC: M LAB REF 12:16
PROVIDERS: ATTEND Internal Medicine
DX: Z01.818 Encounter for other preprocedural examination (principal); Z79.01 Long term (current) use of anticoagulants

== ENCOUNTER → 2021-06-21 | Outpatient (REF) | payer MEDICARE, OTHER ==
[~2021-06-21] MED LIST changes: +ACET300T47 PO; -CLIN150C15 PO; +CLIN150C17 PO; +DOCU100C16 PO; +DOK1CAP4 PO; -DOK1CAP7 PO; +FAMO10TA50 PO; -FAMO1TAB25 PO; +MELA1TAB9 PO; +MINO100T PO; +SEVE800T3 PO; +VITA30004 PO
[2021-06-21 13:56] LABS: APPEARANCE, URINE CLOUDY (CLEAR); BACTERIA, URINE AUTO 2+ (NEGATIVE); BILIRUBIN, URINE AUTO NEGATIVE (NEGATIVE); BLOOD, URINE BLOOD 1+ (NEGATIVE); COLOR, URINE AMBER (YELLOW); GLUCOSE, URINE (UA) AUTO NEGATIVE (NEGATIVE); KETONE, URINE AUTO TRACE mg/dL (NEGATIVE); LEUKOCYTE ESTERASE, URINE AUTO 2+ (NEGATIVE); MUCUS, URINE SMALL (NEGATIVE); NITRITE, URINE AUTO NEGATIVE (NEGATIVE); PROTEIN, URINE AUTO 3+ mg/dL (NEGATIVE); RBC, URINE AUTO 5 /HPF (0-3); SPECIFIC GRAVITY URINE AUTO 1.013 (1.002-1.035); SQUAMOUS EPITHELIAL CELL UR AU 0 /HPF (0-6); WBC, URINE AUTO TNTC /HPF (0-3)
== END ==
LOC: M SMT 13:00
PROVIDERS: ATTEND Urology
DX: R39.198 Other difficulties with micturition (principal)

== ENCOUNTER 2021-07-02 16:11 | Inpatient (IN) | payer MEDICARE, OTHER ==
[~2021-07-02] VITALS: Ht 167.6 cm; Wt 84.5 kg
[~2021-07-02 16:11] MED LIST changes: -ACET300T47 PO; -DOCU100C16 PO; -MELA1TAB9 PO; -MINO100T PO; -SEVE800T3 PO; -VITA30004 PO
[2021-07-02] MEDS ORDERED: SYMP0.2T2 PO ×2 (16:43→21:56)
--- NOTE | 2021-07-02 17:08 | REP ---
INDICATION: chest congestion, and cough. COMPARISON: Portable chest, 02/10/2021. TECHNIQUE: Upright AP portable chest image was obtained. FINDINGS: There is chronic interstitial lung disease. There is no lobar consolidation or pleural effusion. There is cardiomegaly and pulmonary venous hypertension without congestive heart failure. Status post CABG surgery. Status post aortic valve replacement. There is an intrathecal stimulator. There is a reverse shoulder arthroplasty on the right. Status post median sternotomy. IMPRESSION: 1. Chronic interstitial lung disease. 2. Cardiomegaly and pulmonary venous hypertension without congestive heart failure. 3. Status post interval reverse shoulder arthroplasty on the right. 4. Other findings as noted, not significantly changed. <Electronically signed by Felipe Catalan > 07/02/21 0000
[2021-07-02 17:19] LABS: BASO % 0.3 % (0.0-1.0); EOS # 0.2 10^3/uL (0.0-0.5); EOS % 1.5 % (0.0-3.0); HEMATOCRIT 28.3 % (42.0-52.0); HEMOGLOBIN 8.4 g/dl (13.5-17.5); LYMPH % 7.9 % (24.0-44.0); MEAN CORPUSCULAR HEMOGLOBIN 31.6 pg (27.0-33.0); MEAN CORPUSCULAR HGB CONC 29.7 g/dl (32.0-36.5); MEAN CORPUSCULAR VOLUME 106.4 fl (80.0-96.0); MONO # 0.4 10^3/uL (0.0-0.8); NEUTROPHILS # 11.1 10^3/uL (1.5-8.5); NEUTROPHILS % 85.7 % (36.0-66.0); PLATELET COUNT, AUTOMATED 218 10^3/uL (150-450); RED BLOOD COUNT 2.66 10^6/uL (4.30-6.10)
[2021-07-02 17:49] LABS: ERYTHROCYTE SEDIMENTATION RATE 68 mm/hr (0-20)
--- NOTE | 2021-07-02 19:05 | REP ---
INDICATION: left antecubital drainage, possible abscess. COMPARISON: None. TECHNIQUE: 2D ultrasound images were obtained in multiple projections through the left antecubital fossa and supplemented by color Doppler. FINDINGS: There is an area of edema in the deep dermis overlying muscle tissue. There is an apparent fistula tract extending to the skin surface. Additionally there is a complex fluid collection measuring 23 x 17 x 7 mm. The fluid collection appears to be within the fascia overlying the muscle, displacing both the subcutaneous fat and the muscle tissue. IMPRESSION: 1. Area of subcutaneous edema with a fistulous tract extending to the skin surface. 2. There is a complex fluid collection, apparently within the fascia between the subcutaneous fat in the underlying muscle, as described. <Electronically signed by Felipe Catalan > 07/02/21 [id number]
[2021-07-02] MEDS ORDERED: VANCOMYCIN HCL 1,000 MG in IV FLUID PLACE HOLDER 1 EA IV ONE (19:30)
[2021-07-02] MEDS ORDERED: VANCOMYCIN HCL 1,000 MG, VIAL MATE ADAPTER 1 EACH in NS 250 ML IV ONE ×2 (20:00→22:27)
[2021-07-02] MEDS ORDERED: ISOVUE-370 76% 100ML VIAL As Ordered ONE (21:03)
[2021-07-02] MEDS ORDERED: ACETAMINOPHEN TAB 650MG DOSE (2X325MG) PO PRN (21:45)
[2021-07-02 21:50] LABS: INR 1.19; PROTHROMBIN TIME 15.6 SECONDS (12.7-14.5)
[2021-07-02 21:51] LABS: PARTIAL THROMBOPLASTIN TIME 38.6 SECONDS (25.9-37.0)
[2021-07-02] MEDS ORDERED: MORP15TA2 PO (21:56)
[2021-07-02] MEDS ORDERED: LACT20EL PO (21:56)
[2021-07-02] MEDS ORDERED: ACET300T47 PO (21:56)
[2021-07-02] MEDS ORDERED: VITA30004 PO (21:56)
[2021-07-02] MEDS ORDERED: SEVE800T3 PO (21:56)
[2021-07-02] MEDS ORDERED: FLOM0.4C39 PO (21:56)
[2021-07-02] MEDS ORDERED: MELA1TAB9 PO (21:56)
[2021-07-02] MEDS ORDERED: ACET25TA12 PO (21:56)
[2021-07-02] MEDS ORDERED: DULO1CAP6 PO (21:56)
[2021-07-02] MEDS ORDERED: DOCU100C16 PO (21:56)
[2021-07-02] MEDS ORDERED: VITMTA PO (21:56)
[2021-07-02] MEDS ORDERED: HOME MED LIST COMPLETE! XX SCH (22:00)
--- NOTE | 2021-07-02 22:00 | HPEPDOC ---
General Date of Admission July 02, 2021 Date of Service: Jul 02, 2021 Chief Complaint The patient is a 76-year-old male admitted with a reason for visit of Wound Infection. History of Present Illness Mr. Mckeon is a 76 year old male with ESRD on dialysis Friday, Friday, and Friday who is here for draining left arm wound. Patient tells me it began a few months ago. He initially was in [place], [place] for right arm surgery for fracture. After the surgery, he was flailing and dislocated his right arm. He went back to the OR and was given more anesthesia. He was confused for 3 days. He stayed in [place], [place] for 1 month before being sent to [place] for rehab and dialysis. While in [place], he was found to have a left arm abscess close to his fistula. Vascular surgery drained it, it was superficial. He was unsure if they gave him antibiotics for this, but they did not send him home with antibiotics. He was there for about 1 month. He just got back from [place] about a week and a half ago. He was at dialysis when they noticed drainage again from his wound. It had not drained until today. Patient denies any fever/chills, but reports chest congestion and voice change. It sound like he's garbling. Denies any difficulty swallowing. 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 ED provider, Dr. Treadwell called general surgery, Dr. Hinton, about the arm abscess seen on US. Recommended that vascular surgery drain abscess. We have vascular surgery tomorrow afternoon. Dr. Treadwell also called Dr. Donovan Hope about giving IV contrast to better see the position of the abscess and the fistula, and it was okay to give. Patient will be admitted for left arm abscess. 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 He is aortic and mitral bioprosthetic valves. He tells me he does not have mechanical valves. Home Medications Scheduled Atorvastatin Calcium (Atorvastatin Calcium) 20 Mg Tablet, 20 MG PO QHS, (Reported) Calcitriol (Calcitriol) 0.25 Mcg Capsule, 0.25 MCG PO 3XW, (Reported) FRIDAY, FRIDAY AND FRIDAY WITH DIALYSIS Calcium Carbonate/Vitamin D3 (Calcium 600-Vit D3 800 Tablet) 1 Each Tablet, 1 TAB PO QHS, (Reported) Carvedilol (Carvedilol) 3.125 Mg Tablet, 3.125 MG PO BID, (Reported) Cholecalciferol (Vitamin D3) (Vitamin D3) 75 Mcg (3000 Unit) Tablet, 150 MCG PO DAILY, (Reported) Clopidogrel Bisulfate (Plavix) 75 Mg Tablet, 75 MG PO DAILY, (Reported) Docusate Sodium (Docusate Sodium) 100 Mg Capsule, 100 MG PO BID, (Reported) Duloxetine Hcl (Duloxetine HCl) 60 Mg Capsule.dr, 60 MG PO QHS, (Reported) Famotidine (Famotidine) 20 Mg Tablet, 20 MG PO QHS, (Reported) Fluticasone Propionate (Flonase Allergy Relief) 9.9 Ml [place].susp, 2 SPRAYS NA DAILY, (Reported) L.acidoph/L.bulg/B.bif/S.therm (Bacid Caplet) 1 Each Tablet, 1 TAB PO QHS, (Reported) Mirtazapine (Remeron) 15 Mg Tablet, 15 MG PO QHS, (Reported) Multivitamins (Thera M Plus Tablet) 1 Each Tablet, 1 TAB PO DAILY, (Reported) Multivitamins (Thera M Plus Tablet) 1 Each Tablet, 1 TAB PO DAILY, (Reported) Sevelamer Carbonate (Sevelamer Carbonate) 800 Mg Tablet, 800 MG PO WM, (Reported) Tamsulosin HCl (Flomax) 0.4 Mg Capsule, 0.4 MG PO DAILY, (Reported) Tiotropium [place] (Spiriva Respimat) 4 Gm Mist.inhal, 2 PUFF INH DAILY, (Reported) Ubidecarenone (Co Q-10) 200 Mg Capsule, 200 MG PO DAILY, (Reported) Scheduled PRN Acetaminophen with Codeine (Acetaminophen-Cod #3 Tablet) 1 Each Tablet, 1 TAB PO QID PRN for MODERATE PAIN (PS 5-7), (Reported) Acetaminophen/Diphenhydramine (Acetaminophen Pm Caplet) 1 Each Tablet, 1 TAB PO QHS PRN for INSOMNIA, (Reported) Albuterol Sulf (Albuterol Sulfate) 2.5 Mg/3 Ml Vial.neb, 2.5 MG INH QID PRN for SHORTNESS OF BREATH, (Reported) Albuterol Sulfate (Proair Hfa) 8.5 Gm Hfa.aer.ad, 2 PUFF INH Q4H PRN for SHORTNESS OF BREATH, (Reported) Benzonatate (Tessalon [place]) 100 Mg Capsule, 100 MG PO Q8H PRN for COUGH, (Reported) Hydroxyzine HCl (Hydroxyzine HCl) 10 Mg Tablet, 30 MG PO QID PRN for ITCHING, (Reported) Lactulose (Lactulose) 10 Gm/15 Ml Solution, 30 ML PO DAILY PRN for CONSTIPATION, (Reported) Melatonin (Melatonin) 5 Mg Tablet, 5 MG PO QHS PRN for INSOMNIA, (Reported) Morphine Sulfate (Morphine Sulfate) 15 Mg Tablet, 15 MG PO TID PRN for SEVERE PAIN (PS 8-10), (Reported) Naldemedine Tosylate (Symproic) 0.2 Mg Tablet, 0.2 MG PO DAILY PRN for OPIOID CONSTIPATION, (Reported) Nitroglycerin (Nitrostat) 0.4 Mg Tab.subl, 0.4 MG SL NITRO PRN for CHEST PAIN, (Reported) Polyethylene Glycol 3350 (Miralax) 17 Gm Powd.pack, 17 GM PO DAILY PRN for CONSTIPATION, (Reported) Allergies Coded Allergies: ampicillin (Verified Allergy, Intermediate, HIVES, 03/17/19) aspirin (Verified Allergy, Intermediate, LIPS SWELL, 07/02/21) Penicillins (Unverified Allergy, Mild, RASH, 07/02/21) ceftriaxone (Verified Allergy, Unknown, UNKNOWN REACTION, 04/09/19) Past Medical History Medical History 1. ESRD on dialysis MWF 2. CAD s/p CABG 3. CHF 4. Restrictive lung disease 5. NIDDM 6. Bladder cancer 7. ABELARDO Surgical History 1. Quadruple bypass 2. Aortic and mitral valve replacement 3. Knee replacement 4. Elbow surgery 5. Bilateral cataract surgery 6. Left arm fistula 2018 7. Left hip replacement 8. Right shoulder surgery Family History Mother: History of DM and high blood pressure Social History * Smoker: former Smoker Alcohol: Denies Drugs: denies A-FIB/CHADSVASC A-FIB History Current/History of A-Fib/PAF?: No Review of Systems Constitutional: Denies: Chills, Fever Eyes: Denies: Vision change ENT: Denies: Sore Throat Skin: Reports: Rash (Left arm drainage) Pulmonary: Reports: Cough, Other Symptoms (chest congestion); Denies: Dyspnea Cardiovascular: Denies: Chest Pain Gastrointestinal: Denies: Nausea, Abdominal Pain Genitourinary: Reports: Other Symptoms (Does not make much urine); Denies: Dysuria Hematologic: Denies: Bruising Neurological: Denies: Numbness Psych: Denies: Anxiety, Depression Physical Examination General Exam: Positive: Alert, Cooperative Eye Exam: Positive: EOMI; Negative: Sclera icteric ENT Exam: Positive: Atraumatic Neck Exam: Positive: Supple Chest Exam: Positive: Clear to auscultation Heart Exam: Positive: Rate Normal, Regular Rhythm Abdomen Exam: Positive: Normal bowel sounds, Other; Negative: Tenderness Extremity Exam: Positive: Edema (bilateral pitting edema) Neuro Exam: Positive: Other (Right lower face paralyzed) Psych Exam: Positive: Mental status NL, Mood NL Vital Signs Vital Signs Date Time Temp Pulse Resp B/P (MAP) Pulse Ox O2 Delivery O2 Flow Rate FiO2 07/02/21 18:26 79 88 07/02/21 17:00 94/55 (68) 07/02/21 16:41 18 07/02/21 16:26 98.0 Laboratory Data Labs 24H Laboratory Tests 2 07/02/21 16:45: Immature Granulocyte % (Auto) 1.6, Neutrophils (%) (Auto) 85.7H, Lymphocytes (%) (Auto) 7.9L, Monocytes (%) (Auto) 3.0, Eosinophils (%) (Auto) 1.5, Basophils (%) (Auto) 0.3, Neutrophils # (Auto) 11.1H, Lymphocytes # (Auto) 1.0L, Monocytes # (Auto) 0.4, Eosinophils # (Auto) 0.2, Basophils # (Auto) 0.0, Nucleated Red Blood Cells % (auto) 0.0, Erythrocyte Sedimentation Rate 68H CBC/BMP Laboratory Tests 07/02/21 16:45 Microbiology Microbiology 07/02/21 Blood Culture, Received Pending 07/02/21 Blood Culture, Received Pending 07/02/21 Respiratory Virus Panel (PCR) ([facility]) - Final, Complete Assessment/Plan Mr. Mckeon is a 76 year old male with ESRD on dialysis Friday, Friday, and Friday who is here for draining left arm wound. Ultrasound of the arm demonstrates a complex fluid collection measuring 23 x 17 x 7 mm. Patient does exhibit leukocytosis. ER spoke with general surgery who recommended vascular surgery to drain. Patient will be started on IV antibiotics. Plan / VTE VTE Prophylaxis Ordered?: Yes Plan Plan 1. Left arm abscess Seen on ultrasound of left arm. Measures 23 x 17 x 7 mm General surgery recommends vascular surgery to drain Patient is afebrile but does have leukocytosis Blood cultures x2 currently pending Patient to be started on vancomycin day 1 2. End-stage renal disease on dialysis Friday Nephrology was consulted and they are aware of the patient Patient had dialysis on Friday Continue calcitriol and Renvela 3. CAD status post CABG Denies any active chest pain Continue atorvastatin, Coreg, and Plavix 4. Diabetes mellitus Patient's past medical history reports diabetes mellitus, but patient is not on diabetic medications May be diet controlled. Start carbohydrate consistent diet along with renal diet Ordered HbA1c for the morning 5. Chronic pain Continue morphine as needed Acetaminophen as needed 6. COPD Stable, not in exacerbation Continue Spiriva and albuterol as needed 7. Anxiety and depression Continue duloxetine, hydroxyzine as needed, and mirtazapine 8. DVT prophylaxis SCDs and teds MEGAN JAIMES DO Jul 02, 2021 21:24
--- NOTE | 2021-07-02 22:00 | REPVR ---
PROCEDURE INFORMATION: Exam: CTA Left Upper Extremity With Contrast Exam date and time: 07/02/2021 9:15 PM Age: 76 years old Clinical indication: Condition or disease; Abscess; Elbow; Left; Additional info: Please assess the proximity of the fistula to abscess (left) TECHNIQUE: Imaging protocol: Computed tomographic angiography of the Left upper extremity with intravenous contrast material, including non-contrast images if performed. 3D rendering (Not supervised by radiologist): MIP and/or 3D reconstructed images were created by the technologist. Radiation optimization: All CT scans at this facility use at least one of these dose optimization techniques: automated exposure control; mA and/or kV adjustment per patient size (includes targeted exams where dose is matched to clinical indication); or iterative reconstruction. Contrast material: ISOVUE 370; Contrast volume: 100 ml; Contrast route: INTRAVENOUS (IV); COMPARISON: CR PORTABLE CHEST X-RAY 02/06/2021 3:17 AM FINDINGS: Left subclavian artery: The left subclavian artery is patent. Left axillary artery: The left axillary artery appears patent. Left brachial artery: The left brachial artery is patent. There is a fistula which extends from the distal left brachial artery a adjacent to the radial artery origin and extends to a large dialysis fistula which extends through the subcutaneous tissues of the arm measuring approximately 16 mm in diameter with a smaller size by the level of the shoulder. The axillary vein is patent and the left subclavian and left brachiocephalic veins are patent. Left radial artery: The left radial artery is patent and extends into the hand. Left ulnar artery: The left ulnar artery is smaller but extends at least to the wrist. Lungs: Mild scattered fibro-atelectatic change in the left lung. Bones/joints: Deformity of the left humeral head and to a lesser degree the glenoid with flattened articular surfaces. Moderate left shoulder joint effusion with fluid extending to the undersurface of the acromion consistent with rotator cuff tear. There is atrophy of the supraspinatus muscle. Status post sternotomy and CABG and aortic valve replacement. Soft tissues: Subcutaneous edema is noted in the distal arm and left forearm. IMPRESSION: 1. Deformity of the left humeral head with corresponding deformity of the left glenoid. There is a moderate joint effusion and evidence of a left rotator cuff tear with atrophy of the supraspinatus. 2. Patent dialysis fistula in the left arm. 3. Mild subcutaneous edema of the left forearm and distal left arm. Electronically signed by: Yann Trujillo On 07/02/2021 22:00:28 PM
[2021-07-02 22:09] LABS: ALBUMIN 2.5 GM/DL (3.2-5.2); BILIRUBIN,TOTAL 0.5 MG/DL (0.2-1.0); CALCIUM LEVEL 7.8 MG/DL (8.8-10.2); CREATININE FOR GFR 2.44 MG/DL (0.70-1.30); GLOMERULAR FILTRATION RATE 27.6 (>42); POTASSIUM SERUM 3.4 MEQ/L (3.5-5.1); TOTAL PROTEIN 5.3 GM/DL (6.4-8.2)
[2021-07-02] MEDS ORDERED: VANCOMYCIN HCL 1,000 MG, VIAL MATE ADAPTER 1 EACH in NS 250 ML IV SCH (22:30)
[2021-07-02 22:45] VITALS: BP 108/64
[2021-07-02] MEDS ORDERED: MIRALAX *UNIT DOSE* 17GM PACKET PO PRN (23:05)
[2021-07-02] MEDS ORDERED: hydrOXYzine 10 MG TAB PO PRN (23:05)
[2021-07-02] MEDS ORDERED: ALBUTEROL SULFATE 2.5 MG/0.5 ML INH NEB SOLN INH PRN (23:05)
[2021-07-02] MEDS ORDERED: ALBUTEROL 90 MCG/ACT 8GM HFA INHALER INH PRN (23:05)
[2021-07-02] MEDS ORDERED: LACTULOSE 20 GM/30 ML SYRUP UD PO PRN (23:05)
[2021-07-02] MEDS ORDERED: BENZONATATE 100 MG CAP PO PRN (23:05)
[2021-07-02] MEDS ORDERED: NITROGLYCERIN 0.4 MG SUBL TABLET SL PRN (23:05)
[2021-07-03] MEDS: DOCUSATE SODIUM 100MG CAPSULE PO SCH ×3 (00:34→21:53)
[2021-07-03] MEDS: MIRTAZAPINE 15 MG TAB PO SCH ×2 (00:34→21:53)
[2021-07-03] MEDS: DULoxetine 30 MG CAP (CYMBALTA) PO SCH ×2 (00:34→21:53)
[2021-07-03] MEDS: LACTOBACILLUS ACIDOPHILUS CAP (BACID) PO SCH ×2 (00:34→21:53)
[2021-07-03] MEDS: CARVedilol 3.125 MG TAB PO SCH ×3 (00:35→21:59)
[2021-07-03] MEDS: ATORVASTATIN 20 MG TAB PO SCH ×2 (00:37→21:53)
[2021-07-03] MEDS: MORPHINE 30 MG TAB **MSIR PO PRN (02:18)
[2021-07-03] MEDS: RAMELTEON 8 MG TAB (ROZEREM) PO PRN (02:25)
[2021-07-03 06:00] VITALS: BP 100/59
[2021-07-03 06:39] LABS: HEMATOCRIT 29.1 % (42.0-52.0); HEMOGLOBIN 8.5 g/dl (13.5-17.5); MEAN CORPUSCULAR HEMOGLOBIN 31.1 pg (27.0-33.0); MEAN CORPUSCULAR HGB CONC 29.2 g/dl (32.0-36.5); MEAN CORPUSCULAR VOLUME 106.6 fl (80.0-96.0); PLATELET COUNT, AUTOMATED 228 10^3/uL (150-450); RED BLOOD COUNT 2.73 10^6/uL (4.30-6.10); WHITE BLOOD COUNT 12.7 10^3/uL (4.0-10.0)
[2021-07-03 07:09] LABS: C REACTIVE PROTEIN QUANTITATIV 4.6 MG/DL (0.00-0.30); CALCIUM LEVEL 8.6 MG/DL (8.8-10.2); CREATININE FOR GFR 3.04 MG/DL (0.70-1.30); GLOMERULAR FILTRATION RATE 21.4 (>42); POTASSIUM SERUM 3.7 MEQ/L (3.5-5.1); VANCOMYCIN RANDOM 22.3 UG/ML
[2021-07-03] MEDS: TIOTROPIUM INHALER/CAPSULE (SPIRIVA) INH SCH (07:24)
[2021-07-03] MEDS: (RENVELA) SEVELAMER **CARBONate** 800 MG TAB PO SCH ×3 (08:28→18:44)
[2021-07-03] MEDS: TAMSULOSIN 0.4 MG CAP PO SCH (08:28)
[2021-07-03] MEDS: MULTIVITAMINS/MINERALS THERAP 1 TAB PO SCH (08:32)
[2021-07-03] MEDS: CLOPIDOGREL 75 MG TAB PO SCH (08:32)
[2021-07-03] MEDS ORDERED: MULTIVITAMINS/MINERALS THERAP 1 TAB PO SCH (09:00)
[2021-07-03] MEDS ORDERED: FLUBLOK(EGG FREE)(QUAD)INFLUENZA VACC 0.5ML SYRINGE 18YRS & OLDER IM ONE (09:00)
[2021-07-03] MEDS: FLUTICASONE PROP 0.05% NASAL SPRAY 16 GM (FLONASE) SCH (09:14)
[2021-07-03 09:57] LABS: HEMOGLOBIN A1c 5.1 %
[2021-07-03] MEDS: **VANCO AFTER HD** MISC XX SCH (11:43)
[2021-07-03] MEDS ORDERED: LIDOCAINE 1% SDV 5ML VIAL SC PRN (12:00)
[2021-07-03] MEDS ORDERED: SODIUM CHLORIDE 0.9% 1000ML IV PRN (12:00)
--- NOTE | 2021-07-03 12:36 | IPNPDOC ---
Subjective Date Seen The patient was seen on 07/03/21. Subjective Chief Complaint/HPI 76-year-old male admitted for further evaluation of drainage of his left arm wound that was noted during dialysis. There is no pain in the arm, he denies numbness and tingling as well as changes in sensation and strength. At this junction, he denies fever, chills, chest pain, shortness of breath, abdominal pain, nausea, vomiting, and problems with bowel movements. Objective Physical Examination Eye Exam: Positive: EOMI Neuro Exam: Positive: Other (Right lower face paralyzed) Other physical findings General: Lying in bed, no acute distress Head/Neck/Throat: Trachea midline, mucous membranes moist Eyes: Sclera anicteric, no erythema or discharge appreciated bilaterally Thorax: Normal respiratory effort on room air, lungs clear to auscultation bi laterally, no wheezes/rales/rhonchi Cardiovascular: Normal rate, regular rhythm, normal S1, S2; no S3, S4, fistula thrill appreciated Abdomen: Bowel sounds present, soft/nontender/nondistended Genitourinary: No CVA tenderness, no Dougherty in place Musculoskeletal: Moving all extremities, no edema Skin: Left forearm edema appreciated, there is a lesion approximately 1 cm in mid forearm region with that is crusted, serosanguineous fluid was expressed Neurologic: AAOx3, speech fluent and goal-directed, no focal deficits, grossly intact Assessment /Plan Assessment #Left forearm abscess -A complex fluid collection measuring in largest dimension of 23 mm appreciated on ultrasound. Fluid seems to be within the fascia overlying the muscle displacing the subcutaneous fat and muscle tissue. We have asked vascular team for evaluation as per general surgery recommendations. -Continue with vancomycin following dialysis. #End-stage renal disease -Patient will receive dialysis today. Normally receives dialysis on Mondays, Wednesdays, and Fridays. -c/w calcitriol and renvela #Microcytic anemia -Obtain B12/folate levels #Coronary artery disease status post CABG -Continue with Plavix, statins, and carvedilol #Diabetes mellitus -Controlled with diet. Follow-up on hemoglobin A1c. #Chronic pain -Continue with ambulatory morphine as needed as well as acetaminophen #COPD -No signs of acute exacerbation -Continue with Spiriva and albuterol #Anxiety/depression -Continue with duloxetine, hydroxyzine as needed and mirtazapine DVT prophylaxis -Heparin subcu. Plan/VTE VTE Prophylaxis Ordered?: Yes VS, I&O, 24H, Fishbone Vital Signs/I&O Vital Signs Date Time Temp Pulse Resp B/P (MAP) Pulse Ox O2 Delivery O2 Flow Rate FiO2 07/03/21 08:33 75 119/86 07/03/21 06:00 97.6 18 92 07/03/21 02:48 Nasal Cannula 2.0 I&O- Last 24 Hours up to 6 AM 07/03/21 06:00 Intake Total 520 ml Balance 520 ml Laboratory Data 24H LABS Laboratory Tests 2 07/02/21 16:45: Immature Granulocyte % (Auto) 1.6, Neutrophils (%) (Auto) 85.7H, Lymphocytes (%) (Auto) 7.9L, Monocytes (%) (Auto) 3.0, Eosinophils (%) (Auto) 1.5, Basophils (%) (Auto) 0.3, Neutrophils # (Auto) 11.1H, Lymphocytes # (Auto) 1.0L, Monocytes # (Auto) 0.4, Eosinophils # (Auto) 0.2, Basophils # (Auto) 0.0, Nucleated Red Blood Cells % (auto) 0.0, Erythrocyte Sedimentation Rate 68H 07/02/21 20:33: Prothrombin Time 15.6H, Prothromb Time International Ratio 1.19, Activated Partial Thromboplast Time 38.6H, Anion Gap 5L, Glomerular Filtration Rate 27.6L, Calcium Level 7.8L, Total Bilirubin 0.5, Aspartate Amino Transf (AST/SGOT) 17, Alanine Aminotransferase (ALT/SGPT) 20, Alkaline Phosphatase 157H, Total Protein 5.3L, Albumin 2.5L, Albumin/Globulin Ratio 0.9 07/03/21 06:24: Nucleated Red Blood Cells % (auto) 0.0, Anion Gap 5L, Glomerular Filtration Rate 21.4L, Calcium Level 8.6L, Estimated Mean Plasma Glucose 100, Hemoglobin A1c 5.1, C-Reactive Protein, Quantitative 4.60H, Random Vancomycin Level 22.3 CBC/BMP Laboratory Tests 07/02/21 16:45 07/02/21 20:33 07/03/21 06:24 Microbiology Microbiology 07/02/21 Blood Culture, Received Pending 07/02/21 Blood Culture, Received Pending 07/02/21 Respiratory Virus Panel (PCR) ([facility]) - Final, Complete KELL CHEN M.D. Jul 03, 2021 12:22
--- NOTE | 2021-07-03 16:52 | IPNPDOC ---
Text Note Date of Service Vascular surgery Consulted for evaluation of left arm drainage adjacent to the AVF . Came to see patient at 4.15 pm 07/03/21 NOTE Vascular surgery Consulted for evaluation of left arm drainage adjacent to the AVF . Came to see patient at 4.15 pm Patient in dialysis unit Will evaluate tomorrow VS,Adambone, I+O VS, Fishbone, I+O Laboratory Tests 07/02/21 20:33 07/03/21 06:24 Vital Signs Date Time Temp Pulse Resp B/P (MAP) Pulse Ox O2 Delivery O2 Flow Rate FiO2 07/03/21 08:33 75 119/86 07/03/21 06:00 97.6 18 92 07/03/21 02:48 Nasal Cannula 2.0 I&O- Last 24 Hours up to 6 AM 07/03/21 06:00 Intake Total 520 ml Balance 520 ml Aracely Baez MD Jul 03, 2021 16:52
[2021-07-03 17:00] VITALS: BP 118/71
[2021-07-03] MEDS ORDERED: VANCOMYCIN HCL 750 MG, VIAL MATE ADAPTER 1 EACH in NS 250 ML IV ONE (18:00)
[2021-07-03] MEDS: FAMOTIDINE 20 MG TAB PO SCH (21:53)
[2021-07-03] MEDS: HEPARIN SOD (PORCINE) 5000UNITS/ML 1ML VIAL/SYRINGE SQ SCH (21:54)
[2021-07-04] MEDS: RAMELTEON 8 MG TAB (ROZEREM) PO PRN ×2 (00:15→22:42)
[2021-07-04] MEDS: HEPARIN SOD (PORCINE) 5000UNITS/ML 1ML VIAL/SYRINGE SQ SCH ×3 (05:51→20:56)
[2021-07-04 06:00] VITALS: BP 95/39
[2021-07-04 06:43] LABS: HEMATOCRIT 27.1 % (42.0-52.0); HEMOGLOBIN 7.9 g/dl (13.5-17.5); MEAN CORPUSCULAR HEMOGLOBIN 31.1 pg (27.0-33.0); MEAN CORPUSCULAR HGB CONC 29.2 g/dl (32.0-36.5); MEAN CORPUSCULAR VOLUME 106.7 fl (80.0-96.0); PLATELET COUNT, AUTOMATED 180 10^3/uL (150-450); RED BLOOD COUNT 2.54 10^6/uL (4.30-6.10); WHITE BLOOD COUNT 9.4 10^3/uL (4.0-10.0)
[2021-07-04 06:56] LABS: CALCIUM LEVEL 8.2 MG/DL (8.8-10.2); CREATININE FOR GFR 4.34 MG/DL (0.70-1.30); GLOMERULAR FILTRATION RATE 14.2 (>42); MAGNESIUM LEVEL 2.2 MG/DL (1.8-2.4); PHOSPHORUS LEVEL 5.5 MG/DL (2.5-4.9); POTASSIUM SERUM 3.7 MEQ/L (3.5-5.1); VANCOMYCIN RANDOM 19.7 UG/ML
[2021-07-04] MEDS: TIOTROPIUM INHALER/CAPSULE (SPIRIVA) INH SCH (07:14)
[2021-07-04] MEDS ORDERED: LIDOCAINE 1% SDV 5ML VIAL SC PRN (07:50)
[2021-07-04] MEDS ORDERED: SODIUM CHLORIDE 0.9% 1000ML IV PRN (07:50)
[2021-07-04 08:23] LABS: PERCENT SATURATION 16.4 % (19.7-50.0)
[2021-07-04] MEDS: FLUTICASONE PROP 0.05% NASAL SPRAY 16 GM (FLONASE) SCH (08:26)
[2021-07-04] MEDS: (RENVELA) SEVELAMER **CARBONate** 800 MG TAB PO SCH ×3 (08:26→18:38)
[2021-07-04] MEDS: TAMSULOSIN 0.4 MG CAP PO SCH (08:27)
[2021-07-04] MEDS: CARVedilol 3.125 MG TAB PO SCH ×3 (08:27→20:57)
[2021-07-04] MEDS: DOCUSATE SODIUM 100MG CAPSULE PO SCH ×2 (08:27→20:56)
[2021-07-04] MEDS: MULTIVITAMINS/MINERALS THERAP 1 TAB PO SCH (08:27)
[2021-07-04] MEDS: CLOPIDOGREL 75 MG TAB PO SCH (08:27)
[2021-07-04] MEDS: CALCITRIOL 0.25 MCG CAP (S0169) PO SCH (08:28)
[2021-07-04 09:31] LABS: FOLATE 10.7 NG/ML (>5.4)
--- NOTE | 2021-07-04 10:29 | IPNPDOC ---
Subjective Date Seen The patient was seen on 07/04/21. Subjective Chief Complaint/HPI Mr. Mckeon is a 76 year old male with ESRD on dialysis Friday, Friday, and Friday who is here for draining left arm wound. This morning, he denies any chest pain or dyspnea. He still has a left arm wound. Objective Physical Examination General Exam: Positive: Alert, Cooperative Eye Exam: Positive: EOMI; Negative: Sclera icteric ENT Exam: Positive: Atraumatic Neck Exam: Positive: Supple Chest Exam: Positive: Clear to auscultation Heart Exam: Positive: Rate Normal, Regular Rhythm Abdomen Exam: Positive: Normal bowel sounds; Negative: Tenderness Extremity Exam: Positive: Edema (bilateral pitting edema) Neuro Exam: Positive: Other (Right lower face paralyzed) Psych Exam: Positive: Mental status NL, Mood NL Assessment /Plan Assessment Mr. Mckeon is a 76 year old male with ESRD on dialysis Friday, Friday, and Friday who is here for draining left arm wound. Ultrasound of the arm demonstrates a complex fluid collection measuring 23 x 17 x 7 mm. Patient does exhibit leukocytosis. ER spoke with general surgery who recommended vascular surgery to drain since it is close to the fistula for dialysis. Vascular surgery, Dr. Baez consulted, recommendations appreciated. Plan/VTE VTE Prophylaxis Ordered?: Yes Plan 1. Left arm abscess Seen on ultrasound of left arm. Measures 23 x 17 x 7 mm General surgery recommends vascular surgery to drain Patient is afebrile but does have leukocytosis Blood cultures x2 currently pending Patient to be started on vancomycin day 3 2. End-stage renal disease on dialysis Friday, Friday, Friday Nephrology consulted, recommendations appreciated Continue calcitriol and Renvela 3. CAD status post CABG Denies any active chest pain Continue atorvastatin, Coreg, and Plavix 4. R/o DM -HbA1c is 5.1 -Patient unlikely to be diabetic. Will discontinue carbohydrate consistent diet 5. Chronic pain Continue morphine as needed Acetaminophen as needed 6. COPD Stable, not in exacerbation Continue Spiriva and albuterol as needed 7. Anxiety and depression Continue duloxetine, hydroxyzine as needed, and mirtazapine 8. DVT prophylaxis Heparin subq Disposition: Pending wound culture results and Vascular surgery consultation VS, I&O, 24H, Fishbone Vital Signs/I&O Vital Signs Date Time Temp Pulse Resp B/P (MAP) Pulse Ox O2 Delivery O2 Flow Rate FiO2 07/04/21 08:31 82 111/52 07/04/21 06:00 97.9 18 Room Air 07/03/21 23:05 2.0 07/03/21 17:00 97 I&O- Last 24 Hours up to 6 AM 07/04/21 06:00 Intake Total 300 ml Output Total 2000 ml Balance -1700 ml Laboratory Data 24H LABS Laboratory Tests 2 07/04/21 05:51: Nucleated Red Blood Cells % (auto) 0.0, Anion Gap 8, Glomerular Filtration Rate 14.2L, Calcium Level 8.2L, Phosphorus Level 5.5H, Magnesium Level 2.2, Iron Level 29L, Total Iron Binding Capacity 177L, Transferrin % Saturation 16.4L, Abram ritin 1326H, Vitamin B12 Level 522, Folate 10.7, Random Vancomycin Level 19.7 CBC/BMP Laboratory Tests 07/04/21 05:51 Microbiology Microbiology 07/03/21 Wound Culture, Received Pending 07/02/21 Blood Culture - Preliminary, Resulted No growth after 24 hours . All specim... 07/02/21 Blood Culture - Preliminary, Resulted No growth after 24 hours . All specim... 07/02/21 Respiratory Virus Panel (PCR) ([facility]) - Final, Complete MEGAN JAIMES DO Jul 04, 2021 10:29
[2021-07-04] MEDS ORDERED: DARBEPOETIN 100 MCG/0.5 ML *DIALYSIS* SYRINGE (J0882) IV SCH (12:40)
--- NOTE | 2021-07-04 12:48 | IPNPDOC ---
Text Note Date of Service The patient was seen on 07/04/21 at 8 am. NOTE The patient was seen on 07/04/21. NOTE Full consult to follow ESRD - On HD through left forearm/arm AVF Open wound left forearm For debridement on 07/05/21 Dictation Job ID # [id number] VS,Blanca, I+O VS, Blanca, I+O Laboratory Tests 07/04/21 05:51 Vital Signs Date Time Temp Pulse Resp B/P (MAP) Pulse Ox O2 Delivery O2 Flow Rate FiO2 07/04/21 08:31 82 111/52 07/04/21 06:00 97.9 18 Room Air 07/03/21 23:05 2.0 07/03/21 17:00 97 I&O- Last 24 Hours up to 6 AM 07/04/21 06:00 Intake Total 300 ml Output Total 2000 ml Balance -1700 ml Aracely Baez MD Jul 04, 2021 12:48
--- NOTE | 2021-07-04 13:20 | IPN ---
PROGRESS NOTE DATE: 07/04/2021 SUBJECTIVE: The patient is seen and examined this morning in the hemodialysis unit receiving his maintenance treatment. He reports the vascular surgeon came in to see him this morning but he cannot recall what was said to him and there is no note yet in the chart. His dialysis today is uneventful. He has no complaints. He remains afebrile and hemodynamically stable. OBJECTIVE: VITAL SIGNS: Temperature 97.9, pulse is 82, respiratory rate is 18, blood pressure is 111/52, saturating 97% on room air. Weight on the bed scale today is not recorded. Dialysis yesterday removed 2 liters, goal dialysis fluid removal today is also 2 liters. GENERAL: Patient is seen in the hemodialysis unit receiving his treatment, awake, alert and oriented, comfortable and in no distress. HEENT: Extraocular muscles are intact. Tongue is moist. NECK: Supple. Jugular veins are mildly elevated. HEART: Heart sounds are regular S1 and S2. There is chronic 2+ pitting edema in the lower extremities. LUNGS: Symmetric air movement bilaterally. No crackle or rale. He is comfortable on room air. ABDOMEN: Soft and nontender. EXTREMITIES: Redness of the bilateral lower extremities distal to the knee and 2+ pitting edema. NEUROLOGIC: He is oriented x3. He follows simple commands and answers questions appropriately. Dialysis access: There is a fistula on the left arm which is presently in use and there is a dressing over the site of the left arm abscess. LABORATORY DATA: White count is 9.4, hemoglobin is 7.9, platelets 180,000, sodium 138, potassium 3.7, bicarbonate 31, BUN 28, creatinine 4.3. Iron 29, transferrin saturation 16%. Microbiology: Blood cultures with no growth for 24 hours x2 sets drawn July 02. INPATIENT MEDICATIONS: The patient continues on Vancomycin dosed for dialysis. His remainder of medications are all unchanged as compared to yesterday. PROBLEMS: 1. Endstage renal disease on hemodialysis on a Friday, Friday and Friday schedule. Patient usually has some degree of chronic fluid overload and often times requires extra dialysis treatments as an outpatient and while he is in the hospital he also had an extra treatment yesterday with 2 liters removed. Today is his usual treatment and we are removing another 2 liters. His next dialysis will be on Friday. He is having recurrent infectious issues of the fistula arm and is pending intervention by Vascular Surgery. 2. Left arm abscess pending intervention by vascular surgery, white count has normalized now. Patient remains afebrile. Blood cultures x2 sets were negative. He is receiving Vancomycin dosed with dialysis. Most recent Vancomycin random level was appropriate at 19, admission white count was 13 and down to 9.4 today. 3. Congestive heart failure. Patient chronically struggles with fluid restriction and usually has considerable peripheral edema. He often times requires additional dialysis in the outpatient setting for optimal control of his volume status and he had an additional session done yesterday while he is in the hospital and today we are removing another 2 liters. He has a history of coronary artery disease status post CABG and continues on his chronic cardiac medications including Lipitor, Plavix and Carvedilol. He is on a renal diet and does try to follow fluid restriction. 4. Anemia related to chronic inflammation, iron deficiency and endstage renal disease. Hemoglobin is down to 7.9 on labs today. If hemoglobin remains less than 8 tomorrow then I would suggest to transfuse 1 unit of packed red blood cells. I will not give IV iron at this time because of ongoing infectious issues. He is receiving Aranesp with dialysis.
[2021-07-04] MEDS: **VANCO AFTER HD** MISC XX SCH (13:46)
[2021-07-04 14:00] VITALS: BP 102/51
--- NOTE | 2021-07-04 14:21 | CR ---
NEPHROLOGY CONSULTATION DATE: 07/03/2021 REQUESTING PHYSICIAN: Dr. Kaushik Rodriguez CONSULTING PHYSICIAN: Dr. Donovan Hope REASON FOR CONSULTATION: Management of end-stage renal disease on hemodialysis in this patient who is admitted with purulent infection in the same arm as his AV fistula. HISTORY OF PRESENT ILLNESS: Mr. Mckeon is well known to me. He is a 76-year-old male with a past medical history of end-stage renal disease on hemodialysis on a Friday, Friday, Friday schedule. The patient was sent to the Emergency Room yesterday after he completed his outpatient hemodialysis treatment because of concern of drainage and purulence from a wound on his left arm which is located distal to the fistula. The patient tells me that the issue has been going on for some time. He was recently admitted in [place] and at the time had an abscess in the left arm which was drained by Vascular Surgery, and the drainage started again the past couple of days. The patient denies any fevers or chills at home, but does have a notable change in his voice. The Emergency Room contacted me to see if the patient could have an IV contrast scan of his arm to better delineate the site of infection and the patient is pending evaluation by Vascular Surgery as well. A Nephrology evaluation was requested for management of his chronic hemodialysis. PAST MEDICAL HISTORY: The patient's past medical history is significant for: 1. End-stage renal disease on hemodialysis on a Friday, Friday, Friday schedule. 2. Coronary artery disease status post CABG. 3. Anemia of chronic renal failure. 4. Secondary hyperparathyroidism of renal origin. 5. Restrictive lung disease. 6. Type 2 diabetes mellitus. 7. History of bladder cancer. 8. Obstructive sleep apnea. Incomplete. Report stops here./verified/ml SURGICAL HISTORY: FAMILY HISTORY: SOCIAL HISTORY: ALLERGIES: MEDICATIONS: LABORATORY DATA: IMAGING DATA: PHYSICAL EXAMINATION: IMPRESSION: PLAN:
[2021-07-04] MEDS: DULoxetine 30 MG CAP (CYMBALTA) PO SCH (20:55)
[2021-07-04] MEDS: ATORVASTATIN 20 MG TAB PO SCH (20:56)
[2021-07-04] MEDS: LACTOBACILLUS ACIDOPHILUS CAP (BACID) PO SCH (20:56)
[2021-07-04] MEDS: MIRTAZAPINE 15 MG TAB PO SCH (20:56)
[2021-07-04 22:00] VITALS: BP 131/74
[2021-07-04] MEDS: MORPHINE 30 MG TAB **MSIR PO PRN (23:27)
[2021-07-05] VITALS (8 sets, daily range): BP systolic 99–107; BP diastolic 52–72
[2021-07-05] MEDS: HEPARIN SOD (PORCINE) 5000UNITS/ML 1ML VIAL/SYRINGE SQ SCH ×3 (03:34→21:45)
[2021-07-05] MEDS: TIOTROPIUM INHALER/CAPSULE (SPIRIVA) INH SCH (07:32)
[2021-07-05] MEDS: (RENVELA) SEVELAMER **CARBONate** 800 MG TAB PO SCH ×3 (08:00→18:00)
[2021-07-05 08:51] LABS: CALCIUM LEVEL 8.6 MG/DL (8.8-10.2); CREATININE FOR GFR 3.26 MG/DL (0.70-1.30); GLOMERULAR FILTRATION RATE 19.7 (>42); POTASSIUM SERUM 4.2 MEQ/L (3.5-5.1)
[2021-07-05] MEDS: FLUTICASONE PROP 0.05% NASAL SPRAY 16 GM (FLONASE) SCH (09:50)
[2021-07-05] MEDS: DOCUSATE SODIUM 100MG CAPSULE PO SCH ×2 (09:51→21:45)
[2021-07-05] MEDS: CARVedilol 3.125 MG TAB PO SCH ×2 (09:52→21:00)
[2021-07-05] MEDS: MULTIVITAMINS/MINERALS THERAP 1 TAB PO SCH (09:52)
[2021-07-05] MEDS: TAMSULOSIN 0.4 MG CAP PO SCH (09:52)
[2021-07-05] MEDS: CLOPIDOGREL 75 MG TAB PO SCH (09:52)
[2021-07-05 10:05] LABS: HEMATOCRIT 28.3 % (42.0-52.0); HEMOGLOBIN 8.4 g/dl (13.5-17.5); MEAN CORPUSCULAR HEMOGLOBIN 31.7 pg (27.0-33.0); MEAN CORPUSCULAR HGB CONC 29.7 g/dl (32.0-36.5); MEAN CORPUSCULAR VOLUME 106.8 fl (80.0-96.0); PLATELET COUNT, AUTOMATED 206 10^3/uL (150-450); RED BLOOD COUNT 2.65 10^6/uL (4.30-6.10); WHITE BLOOD COUNT 9.6 10^3/uL (4.0-10.0)
--- NOTE | 2021-07-05 10:05 | CR ---
CONSULTATION DATE: 07/02/2021 CONSULTING PHYSICIAN: Dr. Duarte - hospitalist REASON FOR CONSULTATION: Wound on the left forearm, adjacent to the left forearm and arm arteriovenous (AV) fistula. This is my initial contact with the patient for the current hospitalization. HISTORY OF PRESENT ILLNESS: The patient is a 76-year-old gentleman with a history of end-stage renal disease, for which he has been on hemodialysis on Mondays, Wednesdays, and Fridays for the past 2 years. The patient has been on hemodialysis since the past 2 years on Mondays, Wednesdays, and Fridays through a left proximal forearm AV fistula that was created in [place], [place]. He developed a small blister on the volar aspect of the right proximal forearm immediately adjacent to the AV fistula, which started draining serous fluid since the past 2-3 weeks. He was sent back to [place] and was evaluated by the surgeon there, who apparently drained it. The patient continues to have a right gaping wound of 2 cm, immediately adjacent to the fistula, draining serosanguineous fluid. He denies any significant fever, chills, loss of appetite, or other systemic signs and symptoms suggestive of sepsis. He has swelling of the left forearm along with erythema. The patient has significant osteoarthritis of the shoulders and other joints in his body and had two right shoulder surgeries. He is right handed. 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 He walks minimally and is mostly wheelchair bound. He is also on 2 liters of oxygen at night. PAST MEDICAL HISTORY: Significant for: 1. 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 2. Type 2 diabetes mellitus. 3. Congestive heart failure. 4. Restrictive lung disease, on nocturnal oxygen as mentioned above. 5. History of bladder cancer. 6. 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 PAST SURGICAL HISTORY: Significant for: 1. CABG with four grafts. 2. Aortic and mitral valve replacement with bioprosthetic valves. 3. Right knee replacement. 4. Left forearm AV fistula. 5. Bilateral cataract surgery. 6. Right shoulder surgery-twice 7. Left hip replacement. 8. Balloon angioplasty of the left cephalic vein arch stenosis on 12/19/2020, by Dr. Galindo-8 x 20mm Cutting Balloon was used followed by 9 mm Giuliana CURRENT MEDICATIONS: - vancomycin intravenous 1 gram during dialysis - albuterol inhalation as needed - Lipitor 20 mg daily - Tessalon 100 mg as needed - calcitriol three times a week - Coreg 3.125 mg twice a day - Plavix 75 mg daily - Colace 100 mg twice a day - Cymbalta 60 mg every night - Pepcid 20 mg every 48 hours - Lactobacillus/acidophilus one tablet every day - Remeron 15 mg at night - morphine sulfate 15 mg three times a day as needed for severe pain - multivitamins - Renvela 800 mg with meals - Flomax 0.4 mg daily - Rozerem 8 mg every night as needed for insomnia - Spiriva inhalation daily - subcutaneous heparin 5000 every 8 hours As-needed medications, including: - NitroStat sublingual as needed for chest pain - MiraLax for constipation FAMILY HISTORY: Diabetes and hypertension in his parents. ALLERGIES: PENICILLINS, AMPICILLIN, ASPIRIN, and CEFTRIAXONE. SOCIAL HISTORY: Former smoker. No alcohol or intravenous (IV) drug abuse. He lives with his . REVIEW OF SYSTEMS: Including the 12 major systems, apart from the above-mentioned history, is otherwise negative to the best of my knowledge. PHYSICAL EXAMINATION: The patient is a medium-built elderly gentleman who is awake, alert, and appropriately responsive. He is frail looking. His body mass index is 30.1. Anasarca. VITAL SIGNS: Today revealed a blood pressure of 97.9 degrees Fahrenheit, heart rate 82, regular, respiratory rate of 18, blood pressure of 110/52 mmHg. He is saturating 97% on 2 liters of oxygen. HEAD AND NECK: Anemia/pallor. No icterus, periorbital edema. Right facial palsy with asymmetry of the face. He is on oxygen 2 liters per minute. No carotid bruits. CARDIORESPIRATORY: Ejection systolic murmur in the right second intercostal space with loud S2. Bilaterally equal air entry, decreased at the bases with intermittent rhonchi. ABDOMEN: Soft, nondistended, nontender. Bruises on the abdomen. EXTREMITIES: He has bruises on the extremities. He is easily bruisable secondary to his medication. There is no significant swelling of the right arm or the left upper arm. The left forearm is swollen along with erythema and induration. There is a 2 x 2.5 cm open wound on the volar aspect of the left proximal forearm adjacent to the fistula, which has a good bruit. There is no bleeding. There is serous drainage. There is no pus. There is no significant tenderness. VASCULAR EVALUATION: The right radial pulse is +2 palpable. The left radial pulse is +1 palpable. Bilateral femoral pulses are +1 palpable. He denies any significant claudication. He does not walk far enough to develop claudication. Bilateral lower extremities are swollen from the knees down along with erythema and skin changes suggestive of chronic venous insufficiency changes and dermatitis. Both his feet are warm. Bilateral pedal pulses are nonpalpable. He has about a 1 cm gangrenous scab on the tips of the left great and 2nd toes and on the right 2nd toe, which are appropriately healing, as per the patient's history. NEUROLOGIC: Grossly nonfocal. PSYCHOLOGICAL: Normal affect and mood. Relevant labs have been noted. White count of 9.4 thousand, down from 13,000 on 07/02/2021. Hemoglobin of 7.9 gram percent, hematocrit of 27.1, platelet count of 180,000. Potassium today is 3.7. Albumin 2.5 on 07/02/2021. Coagulation profile was within normal limits. on 07/02/2021. Relevant imaging has been reviewed. Left arm extremity ultrasound on 07/02/2021 revealed subcutaneous edema with a fistulous tract extending to the skin surface with a convex fluid collection within the fascia between subcutaneous fat and underlying muscle, measuring 2.3 x 1.7 cm. The fistula appears to be patent. The collection appears to be away from the fistula. Upper extremity CT angiogram revealed patent left arm arteries and veins along with a fistula arising from the distal left brachial artery in the forearm, which is patent and away from the open area/fluid collection, although small branches from the brachial artery and the fistula are known to course through the collection. There is no contrast opacification of the collection (suggestive of pseudoaneurysm or hemorrhage). IMPRESSION AND PLAN: A 76-year-old gentleman with multiple medical comorbidities, including end-stage renal disease, on hemodialysis through a left proximal forearm AV fistula with an open, draining wound next to the fistula, however, not connected to the fistula. The patient has history of previous infective endocarditis with bioprosthetic heart valves. His blood cultures are negative for the past 24 hours. He does not have any systemic signs of sepsis; however, given the nature of the wound and his medical history, suggest debridement in the operating room (OR) and draining of the fluid collection. The procedure is planned for tomorrow; that is 07/05/2021. The possibility of significant bleeding from the AV fistula during the procedure or from the fistula or brachial artery branches and the need for blood transfusion if required were explained to the patient. Also, if the fistula needs to be revised, he may need a Perm-A-Cath in the future until the wound and the revision procedures are completely healed. The patient understands and agrees to the plan of care. JESSY
[2021-07-05] MEDS ORDERED: propofoL 500 MG/50 ML VIAL As Ordered ONE (12:08)
[2021-07-05] MEDS ORDERED: MIDAZOLAM INJ 2MG/2ML VIAL (J2250 PER 1MG) As Ordered ONE (12:08)
[2021-07-05] MEDS ORDERED: LIDOCAINE 2% 100MG/5ML SDV (FOR ANES.) As Ordered ONE (12:08)
[2021-07-05] MEDS ORDERED: fentaNYL 100 MCG/2 ML INJECTION (J3010) As Ordered ONE (12:09)
--- NOTE | 2021-07-05 12:29 | IPNPDOC ---
Subjective Date Seen The patient was seen on 07/05/21. Subjective Chief Complaint/HPI Mr. Mckeon is a 76 year old male with ESRD on dialysis Friday, Friday, and Friday who is here for draining left arm wound. Patient was seen this morning. He denies any chest pain or shortness of breath. Leukocytosis has resolved and patient remains afebrile. Vascular surgery plans to debride left arm today. Objective Physical Examination General Exam: Positive: Alert, Cooperative Eye Exam: Positive: EOMI; Negative: Sclera icteric ENT Exam: Positive: Atraumatic Neck Exam: Positive: Supple Chest Exam: Positive: Clear to auscultation Heart Exam: Positive: Rate Normal, Regular Rhythm Abdomen Exam: Positive: Normal bowel sounds; Negative: Tenderness Extremity Exam: Positive: Edema (bilateral pitting edema) Neuro Exam: Positive: Other (Right lower face paralyzed) Psych Exam: Positive: Mental status NL, Mood NL Assessment /Plan Assessment Mr. Mckeon is a 76 year old male with ESRD on dialysis Friday, Friday, and Friday who is here for draining left arm wound. Ultrasound of the arm demonstrates a complex fluid collection measuring 23 x 17 x 7 mm. Patient does exhibit leukocytosis. ER spoke with general surgery who recommended vascular surgery to drain since it is close to the fistula for dialysis. Vascular surgery, Dr. Baez consulted, recommendations appreciated. Plan to debride left arm on 07/05/2021 Plan/VTE VTE Prophylaxis Ordered?: Yes Plan 1. Left arm abscess Seen on ultrasound of left arm. Measures 23 x 17 x 7 mm General surgery recommends vascular surgery to drain Patient is afebrile but does have leukocytosis Blood cultures x2 currently pending Patient to be started on vancomycin day 4 2. End-stage renal disease on dialysis Friday, Friday, Friday Nephrology consulted, recommendations appreciated Continue calcitriol and Renvela 3. CAD status post CABG Denies any active chest pain Continue atorvastatin, Coreg, and Plavix 4. R/o DM -HbA1c is 5.1 -Patient unlikely to be diabetic. Will discontinue carbohydrate consistent diet 5. Chronic pain Continue morphine as needed Acetaminophen as needed 6. COPD Stable, not in exacerbation Continue Spiriva and albuterol as needed 7. Anxiety and depression Continue duloxetine, hydroxyzine as needed, and mirtazapine 8. DVT prophylaxis Heparin subq Disposition: Pending wound culture results and debridement of left arm. After surgery patient will need to go back on a renal diet. VS, I&O, 24H, Blanca Vital Signs/I&O Vital Signs Date Time Temp Pulse Resp B/P (MAP) Pulse Ox O2 Delivery O2 Flow Rate FiO2 07/05/21 09:52 72 101/72 07/05/21 09:01 97.5 16 98 Nasal Cannula 2.0 I&O- Last 24 Hours up to 6 AM 07/05/21 06:00 Intake Total 910 ml Output Total 2000 ml Balance -1090 ml Laboratory Data 24H LABS Laboratory Tests 2 07/05/21 07:57: Anion Gap 7L, Glomerular Filtration Rate 19.7L, Calcium Level 8.6L 07/05/21 09:36: Nucleated Red Blood Cells % (auto) 0.0, Random Vancomycin Level 20.7 CBC/BMP Laboratory Tests 07/05/21 07:57 07/05/21 09:36 Microbiology Microbiology 07/03/21 Wound Culture, Received Pending 07/02/21 Blood Culture - Preliminary, Resulted No Growth after 48 hours. All Specime... 07/02/21 Blood Culture - Preliminary, Resulted No Growth after 48 hours. All Specime... 07/02/21 Respiratory Virus Panel (PCR) ([facility]) - Final, Complete MEGAN JAIMES DO Jul 05, 2021 12:29
[2021-07-05] MEDS ORDERED: CLINDAMYCIN 600 MG/50 ML PREMIX BAG As Ordered ONE (13:54)
[2021-07-05] MEDS ORDERED: LIDOCAINE 1% SDV 30ML VIAL As Ordered ONE (14:23)
[2021-07-05] MEDS ORDERED: PHENYLEPHRINE 10MG/ML 1ML VIAL (J2370 PER 1) As Ordered ONE (14:39)
[2021-07-05] MEDS ORDERED: VASOPRESSIN INJ 20 UNITS/ML VIAL As Ordered ONE (14:39)
[2021-07-05] MEDS ORDERED: ePHEDrine SULFATE 25 MG/5 ML(5MG/ML) SYRINGE As Ordered ONE (14:39)
[2021-07-05] MEDS ORDERED: PHENYLephrine 500MCG 5ML (100MCG/ML) SYRINGE As Ordered ONE (14:39)
--- NOTE | 2021-07-05 15:30 | POST-OPPD ---
Postoperative Procedure Note Date Of Procedure: Jul 05, 2021 Time Of Procedure: 14:00 PREOPERATIVE DIAGNOSIS: Abscess/seroma left forearm with open wound, immediately adjacent to the previous left radiocephalic hemodialysis AV fistula POSTOPERATIVE DIAGNOSIS: Chronic seroma left forearm, with open wound, adjacent to the previous left proximal forearm radiocephalic hemodialysis AV fistula PROCEDURE: Incision and drainage of the left forearm seroma, with ligation of venous branches, of the radiocephalic AV fistula SURGEON: Aracely Baez MD WARD MAID: global position system technician ANESTHESIA: Sedation with monitored anesthesia care and local anesthesia, Dr. Anne ESTIMATED BLOOD LOSS: 30 mL FINDINGS: Chronic seroma left forearm, with open wound, adjacent to the previous left radiocephalic hemodialysis AV fistula, with no evidence of gross infection or abscess. No evidence of pseudoaneurysm. SPECIMENS: Intraoperative cultures of the seroma COMPLICATIONS: None REPLACED: Not applicable DRAINS: None POSTOPERATIVE CONDITION: Hemodynamically stable, with patent and preserved AV fi stula through which hemodialysis can be continued Aracely Baez MD Jul 05, 2021 15:30
--- NOTE | 2021-07-05 15:44 | ROOPDOC ---
[facility] Report Of Operation Report of Operation DATE OF PROCEDURE: 07/05/21 PREPROCEDURE DIAGNOSES: Abscess/seroma left forearm with open wound, immediately adjacent to the previous left radiocephalic hemodialysis AV fistula POSTPROCEDURE DIAGNOSES: Chronic seroma left forearm, with open wound, adjacent to the previous left proximal forearm radiocephalic hemodialysis AV fistula PROCEDURE PERFORMED:Incision and drainage of the left forearm seroma, with ligation of venous branches, of the radiocephalic AV fistula SURGEON: Aracely Baez MD HEALTH ADVOCATE: None ANESTHESIA: Sedation with monitored anesthesia care and local anesthesia, Dr. Anne. ESTIMATED BLOOD LOSS: Approximately 30 mL. COMPLICATIONS:None REMARKS:Intraop cultures sent FINDINGS: Chronic seroma left forearm, with open wound, adjacent to the previous left radiocephalic hemodialysis AV fistula, with no evidence of gross infection or abscess. No evidence of pseudoaneurysm. SPECIMENS REMOVED: None PROCEDURE NOTE: The patient is a 76-year-old gentleman, with end-stage renal disease, on hemodialysis through left proximal forearm radiocephalic AV fistula. He developed an open wound with serosanguineous drainage, on the volar aspect of the left proximal forearm, immediately adjacent to the AV fistula, for the past 2 to 3 weeks. On ultrasound there was no evidence of pseudoaneurysm. On CT angiogram of the upper extremity, the collection seem to be very close to the AV fistula, with branches from the AV fistula coursing through the collection. Patient was hospitalized, and intravenous antibiotics were initiated, for cellulitis and possible abscess. The patient has a previous history of infective endocarditis and mitral and aortic valve replacement. In view of his significant medical history, it was decided to explore because collection and open wound, to rule out any significant source of sepsis. Informed consent was obtained to the patient, after explaining risk benefits and complications of the procedure, which include but are not limited to bleeding, infection, failure of the fistula, recurrent infection etc. Alternatives to the procedure including nonoperative treatment and its consequences were also explained. The patient understood and agreed to the procedure. The patient is allergic to penicillins, and he received preoperative clindamycin 600 mg intrave nously as preoperative antibiotic prophylaxis. DESCRIPTION OF PROCEDURE: The patient was identified correctly. He was placed i n the operating room table and intravenous sedation with monitored anesthetic care was administered. The left forearm and hand arm were cleaned and draped in a sterile fashion. Timeout was performed. The location of the AV fistula, in relation to the open wound was mapped intraoperatively, using a SonoSite ultrasound to prevent injury to the AV fistula. The wound which was 3 cm in transverse diameter, and 1 cm deep, was explored. There was extensive granulation tissue and induration. With extreme caution, the cephalic vein/fistula was dissected. The fascia was incised longitudinally, lateral to the AV fistula, revealing a small seroma, that drained clear fluid. The fascia was significantly thickened and fibrotic, indicating a chronic process. There was no pus. Deep tissue cultures were obtained and sent for Gram stain, aerobic and anaerobic cultures. Branches of the AV fistula/vein, coursing through the seroma were ligated with sutures. There were no other collections adjacent to the AV fistula. Hemostasis was achieved and confirmed. All counts were correct. The wound was irrigated with normal saline. The wound was closed in layers, using 3-0 Vicryl interrupted sutures, for the subcutaneous tissue and the deep dermal tissue. The skin was approximated with 3-0 nylon interrupted vertical mattress sutures. The fistula was again checked, with a Doppler ultrasound, and revealed very strong Doppler signals. There was a good bruit in the fistula. A Telfa pad followed by dry dressing and a Kerlix wrap were applied. The patient was hemodynamically stable, with patent and preserved AV fistula through which hemodialysis can be continued. A message was left, for the patient's -Tatianna, to convey the above findings Aracely Baez MD Jul 05, 2021 15:44
[2021-07-05] MEDS: PHENYLephrine 500MCG 5ML (100MCG/ML) SYRINGE IV PRN ×5 (15:56→16:15)
[2021-07-05] MEDS ORDERED: PERCOCET 5MG/325MG TAB PO PRN (16:00)
[2021-07-05] MEDS ORDERED: fentaNYL 100 MCG/2 ML INJECTION (J3010) IV PRN (16:00)
[2021-07-05] MEDS ORDERED: METOCLOPRAMIDE INJ 10MG/2ML VIAL (J2765 PER 1) IV PRN (16:00)
[2021-07-05] MEDS: **VANCO AFTER HD** MISC XX SCH (16:00)
[2021-07-05] MEDS ORDERED: ONDANSETRON 4MG/2ML VIAL IV PRN (16:00)
[2021-07-05] MEDS ORDERED: NS 1,000 ML IV SCH (16:05)
[2021-07-05] MEDS: MIRTAZAPINE 15 MG TAB PO SCH (21:45)
[2021-07-05] MEDS: ATORVASTATIN 20 MG TAB PO SCH (21:45)
[2021-07-05] MEDS: FAMOTIDINE 20 MG TAB PO SCH (21:45)
[2021-07-05] MEDS: DULoxetine 30 MG CAP (CYMBALTA) PO SCH (21:45)
[2021-07-05] MEDS: LACTOBACILLUS ACIDOPHILUS CAP (BACID) PO SCH (21:45)
[2021-07-05] MEDS ORDERED: IRON SUCROSE 100MG 5ML VIAL (J1756 PER 1MG) IV SCH (21:55)
--- NOTE | 2021-07-05 23:02 | IPN ---
PROGRESS NOTE DATE: 07/05/2021 SUBJECTIVE: Mr. Mckeon is seen and examined this morning at the bedside. He is pending the OR later today for surgical management of his left forearm abscess. He remains hemodynamically stable and afebrile. He was dialyzed the last two days in a row with a total of 4 liters removed and he reports his leg edema is better. He has no complaints today. PHYSICAL EXAMINATION: VITAL SIGNS: Temperature 98.1, pulse 75, respiratory rate 18, blood pressure 103/52, saturating 98% on 2 liter nasal cannula. INTAKE/OUTPUT: Intake yesterday was 660 cc. Dialysis yesterday removed 2 liters. Weight in the bed scale today is not recorded. GENERAL: Patient is seen lying down, an elderly male, awake, alert, oriented x3, in no distress. He has hoarse voice, which has changed as compared to prior to this admission. HEENT: Extraocular muscles are intact. Tongue is moist. Neck is supple. Jugular veins are mildly elevated. HEART: Heart sounds are regular, S1, S2. There is a fistula in the left arm. There is swelling in the left arm. There is a dressing over the site of left forearm abscess, which is bestill to his fistula. LUNGS: Clear to auscultation. No crackle or rale. ABDOMEN: Soft and nontender. EXTREMITIES: There is a fistula and abscess in the left arm as mentioned previously. There is edema in both of his legs and his legs are quite red. The edema has improved as compared to prior days. 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 Otherwise he moves all four extremities on command and is oriented x3. LABORATORY DATA: Labs today show white count 9.6, hemoglobin 8.4, platelets 206,000. Sodium 138, potassium 4.2, bicarbonate 27, BUN 16. Iron 29, TSAT 16%, ferritin 1,300. MICROBIOLOGY: Blood cultures drawn July 02 with no growth for 72 hours times two sets. INPATIENT MEDICATIONS: He continues on I.V. Vancomycin renally dosed. Most recent Vancomycin random level is 20 drawn this morning. He is also receiving Aranesp with dialysis and is ordered for three doses of Venofer to begin with his next dialysis treatment. The remainder of his medications are all unchanged as compared to yesterday. PROBLEMS: 1. End-stage renal disease on hemodialysis on a Friday, Friday, Friday schedule: Patient is being dialyzed with his left arm fistula. There is a distal abscess present in the left arm as well. Patient is chronically in fluid overload and has a history of trouble with fluid restriction. He very often requires extra dialysis for optimal control of his volume status. Patient was dialyzed the last two days in a row and 4 liters of fluid were removed in total. His next dialysis will be on July 06. 2. Left forearm abscess distal to the AV fistula: Patient remains afebrile and hemodynamically stable. He is on Vancomycin dosed with dialysis. He had a mild leukocytosis on admission that has now resolved. His Vancomycin random levels have been appropriate. He is pending OR today with vascular surgery for definitive management and drainage. His blood cultures have thus far been negative times two sets. 3. Anemia related to iron deficiency/end-stage renal disease and chronic inflammatory state: Hemoglobin has been suboptimal in the 8's. If his hemoglobin is less than 8 tomorrow, I would likely transfuse him with dialysis on Friday and he is also being written for three doses of iron, and he is on Aranesp as well. Goal hemoglobin is 10-11. 4. Congestive heart failure: Chronic and recurrent. Patient struggles with fluid restriction and usually has considerable peripheral edema. He also has a history of intubation in the past secondary to fluid overload. He requires additional dialysis in the outpatient setting for optimal control of his volume status and we did an extra treatment this week and volume status is improved. Next dialysis will be on July 06.
[2021-07-06 02:00] VITALS: BP 100/81
[2021-07-06 06:00] VITALS: BP 107/81
[2021-07-06] MEDS: TAMSULOSIN 0.4 MG CAP PO SCH (06:41)
[2021-07-06] MEDS: DOCUSATE SODIUM 100MG CAPSULE PO SCH (06:41)
[2021-07-06] MEDS: MULTIVITAMINS/MINERALS THERAP 1 TAB PO SCH (06:41)
[2021-07-06] MEDS: CALCITRIOL 0.25 MCG CAP (S0169) PO SCH (06:41)
[2021-07-06] MEDS: FLUTICASONE PROP 0.05% NASAL SPRAY 16 GM (FLONASE) SCH (06:42)
[2021-07-06] MEDS: HEPARIN SOD (PORCINE) 5000UNITS/ML 1ML VIAL/SYRINGE SQ SCH (06:42)
[2021-07-06] MEDS: CLOPIDOGREL 75 MG TAB PO SCH (06:42)
[2021-07-06] MEDS: TIOTROPIUM INHALER/CAPSULE (SPIRIVA) INH SCH (07:39)
[2021-07-06] MEDS: (RENVELA) SEVELAMER **CARBONate** 800 MG TAB PO SCH (08:00)
[2021-07-06 08:32] LABS: HEMATOCRIT 29.8 % (42.0-52.0); HEMOGLOBIN 8.7 g/dl (13.5-17.5); MEAN CORPUSCULAR HEMOGLOBIN 31.5 pg (27.0-33.0); MEAN CORPUSCULAR HGB CONC 29.2 g/dl (32.0-36.5); PLATELET COUNT, AUTOMATED 210 10^3/uL (150-450); RED BLOOD COUNT 2.76 10^6/uL (4.30-6.10); WHITE BLOOD COUNT 11.2 10^3/uL (4.0-10.0)
--- NOTE | 2021-07-06 08:33 | REP ---
INDICATION: leg redness BLE. COMPARISON: Comparison study June 23, 2020. TECHNIQUE: Bilateral lower extremity duplex venous scanning is performed from the groin to the ankle level. FINDINGS: The deep veins are anechoic and fully compressible from the groin to the popliteal fossa in the left and right lower extremity. Color flow imaging is homogeneous. Spectral Doppler interrogation demonstrates intact respiratory variation in flow and normal manual augmentation of flow. There is no evidence of deep vein thrombosis in the femoropopliteal veins. There is no evidence of deep vein thrombosis in the visualized calf veins. The right lower extremity calf veins could not be seen due to edema. IMPRESSION: No evidence of DVT in the femoropopliteal veins. No DVT in the visible portions of the calf veins. <Electronically signed by Eyad Kumar > 07/06/21 [id number]
[2021-07-06] MEDS ORDERED: MINO100T PO (08:39)
[2021-07-06 08:56] LABS: CALCIUM LEVEL 8.4 MG/DL (8.8-10.2); CREATININE FOR GFR 4.86 MG/DL (0.70-1.30); GLOMERULAR FILTRATION RATE 12.4 (>42); POTASSIUM SERUM 4.7 MEQ/L (3.5-5.1)
[2021-07-06 09:00] VITALS: BP 107/81
[2021-07-06] MEDS: CARVedilol 3.125 MG TAB PO SCH (09:00)
--- NOTE | 2021-07-06 11:54 | IPNPDOC ---
Text Note Date of Service The patient was seen on 07/06/21 at 815 am. NOTE Patient comfortable, sleeping, not in acute distress. Still drowsy from the surgery. Afebrile, vital signs stable. Left arm dressing clean dry and intact. Left upper AV fistula is patent, with a good bruit and thrill. Left hand is warm and adequately perfused. Labs noted. Mildly elevated white count. Intraoperative Gram stain and cultures are pending. Impression/plan: Postop day 1, status post incision and drainage of the left forearm seroma. The fistula is patent, and may be used for hemodialysis. Dressing change will be planned in the next 24 to 48 hours. VS,Fishbone, I+O VS, Fishbone, I+O Laboratory Tests 07/06/21 08:15 Vital Signs Date Time Temp Pulse Resp B/P (MAP) Pulse Ox O2 Delivery O2 Flow Rate FiO2 07/06/21 09:00 88 107/81 07/06/21 06:00 98.1 17 98 Nasal Cannula 3.0 I&O- Last 24 Hours up to 6 AM 07/06/21 06:00 Intake Total 895 ml Output Total 30 ml Balance 865 ml Aracely Baez MD Jul 06, 2021 11:54
--- NOTE | 2021-07-06 19:02 | DS.PDOC ---
Discharge Summary General Date of Admission Jul 02, 2021 at 16:12 Date of Discharge Jul 06, 2021 Specialist/Consultants Involve Vascular surgery, Dr. Baez Discharge Summary PROCEDURES PERFORMED DURING STAY: Left arm debridement ADMITTING DIAGNOSES: 1. Left arm abscess 2. End-stage renal disease on dialysis Friday 3. CAD status post CABG 4. Ruled out diabetes mellitus 5. Chronic pain 6. Chronic COPD 7. Anxiety and depression DISCHARGE DIAGNOSES: 1. Left arm seroma 2. End-stage renal disease on dialysis Friday 3. CAD status post CABG 4. Ruled out diabetes mellitus 5. Chronic pain 6. Chronic COPD 7. Anxiety and depression COMPLICATIONS/CHIEF COMPLAINT: Arm Abscess, Esrd On Dialysis,Infected Left Arm.... HISTORY OF PRESENT ILLNESS: Mr. Mckeon is a 76 year old male with ESRD on dialysis Friday, Friday, and Friday who is here for draining left arm wound. Patient tells me it began a few months ago. He initially was in [place], [place] for right arm surgery for fracture. After the surgery, he was flailing and dislocated his right arm. He went back to the OR and was given more anesthesia. He was confused for 3 days. He stayed in [place], [place] for 1 month before being sent to [place] for rehab and dialysis. While in [place], he was found to have a left arm abscess close to his fistula. Vascular surgery drained it, it was superficial. He was unsure if they gave him antibiotics for this, but they did not send him home with antibiotics. He was there for about 1 month. He just got back from [place] about a week and a half ago. He was at dialysis when they noticed drainage again from his wound. It had not drained until today. Patient denies any fever/chills, but reports chest congestion and voice change. It sound like he's garbling. Denies any difficulty swallowing. 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 ED provider, Dr. Treadwell called general surgery, Dr. Hinton, about the arm abscess seen on US. Recommended that vascular surgery drain abscess. We have v ascular surgery tomorrow afternoon. Dr. Treadwell also called Dr. Donovan Hope about giving IV contrast to better see the position of the abscess and the fistula, and it was okay to give. Patient will be admitted for left arm abscess. 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 He is aortic and mitral bioprosthetic valves. He tells me he does not have mechanical valves. HOSPITAL COURSE: During hospitalizations, patient was started empirically on vancomycin. Patient did have a wound culture on 07/03/2021 which grew Staph ep idermidis which may be normal skin js. Vascular surgery Dr. Baez was consulted. She took patient to the OR for debridement on 07/05/2021. It did not look infected and there was no pus. There was a seroma. Just in case, she took sample for wound culture and anaerobic culture. The wound culture from the debridement on 07/05/2021 had no organisms Gram stain. Today, patient was seen awake and alert. He felt well. He denies any chest pain, shortness of breath, or abdominal pain. I spoke with Dr. Baez. We will keep dressing in place for now and patient will follow up with Dr. Baez outpatient for wound care. She hopes to see the patient on Friday. Patient was discharged this morning. DISCHARGE MEDICATIONS: Please see below. ALLERGIES: Please see below. PHYSICAL EXAMINATION ON DISCHARGE: VITAL SIGNS: Please see below. GENERAL: Comfortable, in no apparent distress. HEENT: Sclera clear. NECK: Supple. RESPIRATORY: Lungs clear to auscultation bilaterally. CARDIOVASCULAR: Regular rate and rhythm. ABDOMEN: Soft, nontender, no guarding or rebound tenderness. Normal bowel sounds. MUSCLE SKELETAL: Bilateral pitting edema NEUROLOGICAL: Right lower face is paralyzed PSYCHOLOGICAL: Normal mood and affect LABORATORY DATA: Please see below. IMAGING: Radiologist interpretation Ultrasound left arm 1. Area of subcutaneous edema with a fistulous tract extending to the skin surface. 2. There is a complex fluid collection, apparently within the fascia between the subcutaneous fat in the underlying muscle, as described. Ultrasound lower extremities bilaterally No evidence of DVT in the femoropopliteal veins. No DVT in the visible portions of the calf veins. PROGNOSIS: Good ACTIVITY: As tolerated. DIET: Renal diet DISCHARGE PLAN: Home with home services DISPOSITION: Home Health Service. DISCHARGE INSTRUCTIONS: 1. Follow-up with PCP within 1 week 2. Follow-up with vascular surgery, , on Friday for wound care ITEMS TO FOLLOWUP ON ON OUTPATIENT: 1. Left arm wound DISCHARGE CONDITION: Stable. Total time spent discharge planning, discharge summary, and medication reconciliation: 45 minutes Vital Signs/I&Os Vital Signs Date Time Temp Pulse Resp B/P (MAP) Pulse Ox O2 Delivery O2 Flow Rate FiO2 07/06/21 09:00 88 107/81 07/06/21 06:00 98.1 17 98 Nasal Cannula 3.0 I&O- Last 24 Hours up to 6 AM 07/06/21 06:00 Intake Total 895 ml Output Total 30 ml Balance 865 ml Laboratory Data Labs 24H Laboratory Tests 2 07/06/21 08:15: Nucleated Red Blood Cells % (auto) 0.0, Anion Gap 7L, Glomerular Filtration Rate 12.4L, Calcium Level 8.4L CBC/BMP Laboratory Tests 07/06/21 08:15 Microbiology Microbiology 07/05/21 Anaerobic Culture, Received Pending 07/05/21 Gram Stain - Final, Resulted 07/05/21 Wound Culture, Resulted Pending 07/03/21 Wound Culture - Final, Complete Staphylococcus Epidermidis 07/02/21 Blood Culture - Preliminary, Resulted No Growth after 72 hours. All specime... 07/02/21 Blood Culture - Preliminary, Resulted No Growth after 72 hours. All specime... 07/02/21 Respiratory Virus Panel (PCR) ([facility]) - Final, Complete Discharge Medications Scheduled Atorvastatin Calcium (Atorvastatin Calcium) 20 Mg Tablet, 20 MG PO QHS, (Reported) Calcitriol (Calcitriol) 0.25 Mcg Capsule, 0.25 MCG PO 3XW, (Reported) FRIDAY, FRIDAY AND FRIDAY WITH DIALYSIS Calcium Carbonate/Vitamin D3 (Calcium 600-Vit D3 800 Tablet) 1 Each Tablet, 1 TAB PO QHS, (Reported) Carvedilol (Carvedilol) 3.125 Mg Tablet, 3.125 MG PO BID, (Reported) Cholecalciferol (Vitamin D3) (Vitamin D3) 75 Mcg (3000 Unit) Tablet, 150 MCG PO DAILY, (Reported) Clopidogrel Bisulfate (Plavix) 75 Mg Tablet, 75 MG PO DAILY, (Reported) Docusate Sodium (Docusate Sodium) 100 Mg Capsule, 100 MG PO BID, (Reported) Duloxetine Hcl (Duloxetine HCl) 60 Mg Capsule.dr, 60 MG PO QHS, (Reported) Famotidine (Famotidine) 20 Mg Tablet, 20 MG PO QHS, (Reported) Fluticasone Propionate (Flonase Allergy Relief) 9.9 Ml [place].susp, 2 SPRAYS NA DAILY, (Reported) L.acidoph/L.bulg/B.bif/S.therm (Bacid Caplet) 1 Each Tablet, 1 TAB PO QHS, (Reported) Minocycline HCl (Minocycline HCl) 100 Mg Tablet, 1 TAB PO BID Mirtazapine (Remeron) 15 Mg Tablet, 15 MG PO QHS, (Reported) Multivitamins (Thera M Plus Tablet) 1 Each Tablet, 1 TAB PO DAILY, (Reported) Multivitamins (Thera M Plus Tablet) 1 Each Tablet, 1 TAB PO DAILY, (Reported) Sevelamer Carbonate (Sevelamer Carbonate) 800 Mg Tablet, 800 MG PO WM, (Reported) Tamsulosin HCl (Flomax) 0.4 Mg Capsule, 0.4 MG PO DAILY, (Reported) Tiotropium [place] (Spiriva Respimat) 4 Gm Mist.inhal, 2 PUFF INH DAILY, (Reported) Ubidecarenone (Co Q-10) 200 Mg Capsule, 200 MG PO DAILY, (Reported) Scheduled PRN Acetaminophen with Codeine (Acetaminophen-Cod #3 Tablet) 1 Each Tablet, 1 TAB PO QID PRN for MODERATE PAIN (PS 5-7), (Reported) Acetaminophen/Diphenhydramine (Acetaminophen Pm Caplet) 1 Each Tablet, 1 TAB PO QHS PRN for INSOMNIA, (Reported) Albuterol Sulf (Albuterol Sulfate) 2.5 Mg/3 Ml Vial.neb, 2.5 MG INH QID PRN for SHORTNESS OF BREATH, (Reported) Albuterol Sulfate (Proair Hfa) 8.5 Gm Hfa.aer.ad, 2 PUFF INH Q4H PRN for SHORTNESS OF BREATH, (Reported) Benzonatate (Tessalon Perle) 100 Mg Capsule, 100 MG PO Q8H PRN for COUGH, (Reported) Hydroxyzine HCl (Hydroxyzine HCl) 10 Mg Tablet, 30 MG PO QID PRN for ITCHING, (Reported) Lactulose (Lactulose) 10 Gm/15 Ml Solution, 30 ML PO DAILY PRN for CONSTIPATION, (Reported) Melatonin (Melatonin) 5 Mg Tablet, 5 MG PO QHS PRN for INSOMNIA, (Reported) Morphine Sulfate (Morphine Sulfate) 15 Mg Tablet, 15 MG PO TID PRN for SEVERE PAIN (PS 8-10), (Reported) Naldemedine Tosylate (Symproic) 0.2 Mg Tablet, 0.2 MG PO DAILY PRN for OPIOID CONSTIPATION, (Reported) Nitroglycerin (Nitrostat) 0.4 Mg Tab.subl, 0.4 MG SL NITRO PRN for CHEST PAIN, (Reported) Polyethylene Glycol 3350 (Miralax) 17 Gm Powd.pack, 17 GM PO DAILY PRN for CONSTIPATION, (Reported) Allergies Coded Allergies: ampicillin (Verified Allergy, Intermediate, HIVES, 03/17/19) aspirin (Verified Allergy, Intermediate, LIPS SWELL, 07/02/21) Penicillins (Unverified Allergy, Mild, RASH, 07/02/21) ceftriaxone (Verified Allergy, Unknown, UNKNOWN REACTION, 04/09/19) MEGAN JAIMES DO Jul 06, 2021 19:02
== END 2021-07-06 11:30 | disposition home health service (06) | DRG 907 ==
LOC: M ED 16:11 → M ED INP 16:12 → ENRESERV 22:02 → M MSPAV 22:31
PROVIDERS: ADMIT Internal Medicine; ATTEND Internal Medicine
PROC: 5A1D70Z Performance of Urinary Filtration, Intermittent, Less than 6 Hours Per Day (ICD-10-PCS; 2021-07-04)
PROC: 0J9H0ZZ Drainage of Left Lower Arm Subcutaneous Tissue and Fascia, Open Approach (ICD-10-PCS; 2021-07-05)
PROC: 05L Upper Veins, Occlusion (ICD-10-PCS; principal; 2021-07-05 12:00)
DX: I97.648 Postprocedural seroma of a circulatory system organ or structure following other circulatory system procedure (principal); N18.6 End stage renal disease; N25.81 Secondary hyperparathyroidism of renal origin; L02.412 Cutaneous abscess of left axilla; I25.10 Atherosclerotic heart disease of native coronary artery without angina pectoris; I50.9 Heart failure, unspecified; E11.22 Type 2 diabetes mellitus with diabetic chronic kidney disease; G47.33 Obstructive sleep apnea (adult) (pediatric); Z85.51 Personal history of malignant neoplasm of bladder; Z95.3 Presence of xenogenic heart valve; Z98.41 Cataract extraction status, right eye; Z98.42 Cataract extraction status, left eye; Z96.642 Presence of left artificial hip joint; Z99.2 Dependence on renal dialysis; Z79.02 Long term (current) use of antithrombotics/antiplatelets; Z79.899 Other long term (current) drug therapy; Z88.0 Allergy status to penicillin; Z88.1 Allergy status to other antibiotic agents; Z88.6 Allergy status to analgesic agent; J98.4 Other disorders of lung; F41.9 Anxiety disorder, unspecified; F32.9 Major depressive disorder, single episode, unspecified; G89.29 Other chronic pain; J44.9 Chronic obstructive pulmonary disease, unspecified; D63.1 Anemia in chronic kidney disease; D50.9 Iron deficiency anemia, unspecified; Z96.651 Presence of right artificial knee joint; Z87.891 Personal history of nicotine dependence

== ENCOUNTER → 2021-07-19 | Outpatient (CLI) | payer MEDICARE, OTHER ==
[~2021-07-19] MED LIST changes: +ACET300T47 PO; +DOCU100C16 PO; +MELA1TAB9 PO; +MINO100T PO; +SEVE800T3 PO; +VITA30004 PO
--- NOTE | 2021-07-19 15:10 | REP ---
INDICATION: PERIPHERAL VASCULAR DISEASE COMPARISON: 11/14/2020. TECHNIQUE: Real time puckett scale and Duplex Doppler evaluation of the bilateral lower extremity arterial vasculature using linear high frequency transducer. FINDINGS: Puckett scale and duplex doppler images demonstrate significant plaquing bilaterally, left greater than right. There is a patent stent in the right superficial femoral artery. In the proximal right SFA there is approximately 2-1 stenosis just proximal to the stent. At the origin the left profunda there is approximately 2-1 stenosis. In the proximal left SFA there is approximately 6-1 stenosis and in the mid left SFA 2-1 stenosis. The mid left anterior tibial artery is occluded in the left dorsalis pedis arteries reversed. There are diffuse monophasic waveforms bilaterally. Peak systolic velocities (cm/sec) Common femoral artery: Right 161; Left 157 Profunda femoris: Right 164; Left 274 SFA (proximal): Right 329; Left 347 SFA (mid): Right 164; Left 238 SFA (distal): Right 143; Left 94 Popliteal artery: Right 108; Left 63 ROSINA (prox.): Right 116; Left 140 Tibioperoneal trunk: Right 81; Left 55 CREDIT CORRESPONDENCE CLERK (prox.): Right 119; Left 73 CREDIT CORRESPONDENCE CLERK (distal): Right 57; Left 70 ROSINA (distal): Right 41; Left 13 IMPRESSION: Significant plaquing bilaterally. Patent right SFA stent. Approximately 2-1 stenosis proximal right SFA, proximal to the stent. Approximately 6-1 stenosis proximal left SFA and 2-1 stenosis mid left SFA. Occlusion mid left anterior tibial artery. <Electronically signed by Toni Puckett > 07/19/21 [id number]
== END ==
LOC: M RAD 12:18
PROVIDERS: ATTEND Surgery Vascular Surgery
DX: I73.9 Peripheral vascular disease, unspecified (principal); I77.1 Stricture of artery; I72.8 Aneurysm of other specified arteries

== ENCOUNTER → 2021-07-23 | Outpatient (REF) | payer MEDICARE, OTHER ==
[~2021-07-23] MED LIST changes: +CLIN-250 PO; -CLIN300C6 PO; -CYMB60CA3 PO; +CYMB60CA4 PO
== END ==
LOC: M SMT 12:59
PROVIDERS: ATTEND Urology
DX: C67.9 Malignant neoplasm of bladder, unspecified (principal); R39.198 Other difficulties with micturition

== ENCOUNTER → 2021-08-03 | Outpatient (CLI) | payer MEDICARE, OTHER ==
[~2021-08-03] MED LIST changes: -CLIN-250 PO; +CLIN300C6 PO; +CYMB60CA3 PO; -CYMB60CA4 PO
--- NOTE | 2021-08-03 19:15 | REP ---
INDICATION: PRESENCE OF RIGHT ARTIFICIAL SHOULDER JOINT COMPARISON: None. TECHNIQUE: Internal rotation, external rotation, and Y view. FINDINGS: Right shoulder replacement appears stable as compared to chest x-ray dated 07/02/2021. The osseous structures demonstrate age-related osteopenia. No acute fracture or dislocation. IMPRESSION: Stable appearance of the right shoulder as compared with 07/02/2021. <Electronically signed by Krishan Mead > 08/03/211911
== END ==
LOC: M RAD 16:48
PROVIDERS: ATTEND Orthopaedic Surgery
DX: Z96.611 Presence of right artificial shoulder joint (principal)

== ENCOUNTER → 2021-08-21 | Outpatient (REF) | payer MEDICARE, OTHER ==
[~2021-08-21] MED LIST changes: +CLIN-250 PO; -CLIN300C6 PO; -CYMB60CA3 PO; +CYMB60CA4 PO; +TREL1AER PO; +VITACAP31 PO; +XANA0.25 PO
== END ==
LOC: M LAB REF 16:26
PROVIDERS: ATTEND Physician Assistant
DX: M86.172 Other acute osteomyelitis, left ankle and foot (principal); E11.621 Type 2 diabetes mellitus with foot ulcer; L97.524 Non-pressure chronic ulcer of other part of left foot with necrosis of bone
CPT/HCPCS: 11044; 87070; 87186; 88304; 88311; G0463

== ENCOUNTER → 2021-08-28 | Outpatient (POV) | payer MEDICARE, OTHER ==
[~2021-08-28] VITALS: Ht 167.6 cm; Wt 80.9 kg
[~2021-08-28] MED LIST changes: -TREL1AER PO; -VITACAP31 PO; -XANA0.25 PO
[2021-08-28 13:25] VITALS: BP 116/58
--- NOTE | 2021-08-30 12:29 | IRCOV ---
[facility] IR Consult Office Visit IR Consult Office Visit DATE: Aug 28, 2021 REASON FOR CONSULTATION/CHIEF COMPLAINT: Left lower extremity wounds. HISTORY OF PRESENT ILLNESS: 76-year-old male with extensive coronary history, [place] x1, 2 open heart surgeries, 2 valve replacements, renal failure- on dialysis, diabetes, hypertension and COPD, presents for nonhealing left lower extremity wounds. Patient reports he has chronic bilateral lower extremity swelling and exquisite pain at rest. His legs have been red and weepy for some years, now with extensive skin flaking and increasing redness. He reports the 2 wounds on his left lower extremity, big toe and second toe, are not healing for many months. He underwent right lower extremity angiography and stenting with Dr. Cardenas in September 2020, for nonhealing wound. He reports the pain was no better after the procedure. However, the ulcer he had on the right toe did temporarily heal. However, it sounds like it may be reopening now. He has had no prior left lower extremity angiography and/or intervention. He denies any prior left lower extremity gangrene, cold leg or amputation. He denies fevers or chills. He denies chest pain, shortness of breath, orthopnea or paroxysmal nocturnal dyspnea. He reports seeing dermatology regarding the appearance of the skin on his legs. He is an ex-smoker and quit 20 years ago. ALLERGIES: Please see below. HOME MEDICATIONS: Please see below. PAST MEDICAL HISTORY: Hypertension Hyperlipidemia Heart disease Diabetes Bladder cancer Gout CHF PAST SURGICAL HISTORY: Quadruple cardiac bypass Knee replacement Elbow surgery Spinal cord stimulator Bladder surgery Kidney tumor TURBT Dialysis fistula left forearm PermCath Hip replacement Right lower extremity angiography, angioplasty and stenting September 2020 Right shoulder replacement FAMILY HISTORY: Noncontributory. SOCIAL HISTORY: Ex-smoker. Denies alcohol or drugs. REVIEW OF SYSTEMS: Otherwise negative. PHYSICAL EXAMINATION: VITAL SIGNS: Please see below. GENERAL APPEARANCE: Uncomfortable at rest. HEENT: No scleral icterus. RESPIRATORY: Normal breathing at rest. CARDIOVASCULAR: Normal rate. ABDOMEN: Soft nontender. EXTREMITIES: Left lower extremity: Shiny, hairless, red skin. Extensive desquamation. Edema to the knee. Warm to touch. DP/PT negative. motor 5 out of 5. sensation intact. Wounds on the first and second toe dressed by wound care. Right lower extremity: Shiny, hairless, red skin. Extensive desquamation. Edema to the knee. Warm to touch. DP/PT negative. motor 5 out of 5. sensation intact. NEUROLOGICAL: Alert and oriented. PSYCHIATRIC: Appropriate to circumstance. LABORATORY DATA: 07/06/2021 hemoglobin 8.7 hematocrit 29.8 WBC 11.2 platelets 210. Sodium 137 potassium 4.7 BUN 25 creatinine 4.86 GFR 12.4-on dialysis Imaging: I personally reviewed the bilateral lower extremity arterial ultrasound performed 07/19/2021. Stenosis of the common femoral artery with parvus tardus flow in the superficial femoral artery. Below-knee disease with distal anterior tibial artery occlusion and apparent retrograde flow from the patent posterior tibial artery. ASSESSMENT/PLAN: 76-year-old male with extensive coronary artery disease, known vasculopath with bilateral lower extremity rest pain and nonhealing left lower extremity wounds. I agree he would benefit from angiography of the left lower extremity and/or intervention if possible, to promote wound healing. His pain which did not improve after right lower extremity stenting and appearance of his skin of the lower extremities bilaterally is unusual and should be further worked up with dermatology. We discussed the risks and benefits of angiography and patient is willing to proceed. We have scheduled the patient for left lower extremity angiography and intervention. I spent 30 minutes reviewing patient's records, imaging and in consultation with the patient. Thank you for this referral. Cc Elisabeth Iglesias PA-C Allergies Coded Allergies: ampicillin (Verified Allergy, Intermediate, HIVES, 03/17/19) aspirin (Verified Allergy, Intermediate, LIPS SWELL, 07/02/21) Penicillins (Unverified Allergy, Mild, RASH, 07/02/21) ceftriaxone (Verified Allergy, Unknown, UNKNOWN REACTION, 04/09/19) Home Medications Scheduled Atorvastatin Calcium (Atorvastatin Calcium), 20 MG PO QHS, (Reported) Calcitriol (Calcitriol), 0.25 MCG PO 3XW, (Reported) Calcium Carbonate/Vitamin D3 (Calcium 600-Vit D3 800 Tablet), 1 TAB PO QHS, (Re ported) Carvedilol (Carvedilol), 3.125 MG PO BID, (Reported) Cholecalciferol (Vitamin D3) (Vitamin D3), 150 MCG PO DAILY, (Reported) Clopidogrel Bisulfate (Plavix), 75 MG PO DAILY, (Reported) Docusate Sodium (Docusate Sodium), 100 MG PO BID, (Reported) Duloxetine Hcl (Duloxetine HCl), 60 MG PO QHS, (Reported) Famotidine (Famotidine), 20 MG PO QHS, (Reported) Fluticasone Propionate (Flonase Allergy Relief), 2 SPRAYS NA DAILY, (Reported) L.acidoph/L.bulg/B.bif/S.therm (Bacid Caplet), 1 TAB PO QHS, (Reported) Minocycline HCl (Minocycline HCl), 1 TAB PO BID Mirtazapine (Remeron), 15 MG PO QHS, (Reported) Multivitamins (Thera M Plus Tablet), 1 TAB PO DAILY, (Reported) Multivitamins (Thera M Plus Tablet), 1 TAB PO DAILY, (Reported) Sevelamer Carbonate (Sevelamer Carbonate), 800 MG PO WM, (Reported) Tamsulosin HCl (Flomax), 0.4 MG PO DAILY, (Reported) Tiotropium [place] (Spiriva Respimat), 2 PUFF INH DAILY, (Reported) Ubidecarenone (Co Q-10), 200 MG PO DAILY, (Reported) Scheduled PRN Acetaminophen with Codeine (Acetaminophen-Cod #3 Tablet), 1 TAB PO QID PRN for MODERATE PAIN (PS 5-7), (Reported) Acetaminophen/Diphenhydramine (Acetaminophen Pm Caplet), 1 TAB PO QHS PRN for INSOMNIA, (Reported) Albuterol Sulf (Albuterol Sulfate), 2.5 MG INH QID PRN for SHORTNESS OF BREATH, (Reported) Albuterol Sulfate (Proair Hfa), 2 PUFF INH Q4H PRN for SHORTNESS OF BREATH, (Reported) Benzonatate (Tessalon Perle), 100 MG PO Q8H PRN for COUGH, (Reported) Hydroxyzine HCl (Hydroxyzine HCl), 30 MG PO QID PRN for ITCHING, (Reported) Lactulose (Lactulose), 30 ML PO DAILY PRN for CONSTIPATION, (Reported) Melatonin (Melatonin), 5 MG PO QHS PRN for INSOMNIA, (Reported) Morphine Sulfate (Morphine Sulfate), 15 MG PO TID PRN for SEVERE PAIN (PS 8-10), (Reported) Naldemedine Tosylate (Symproic), 0.2 MG PO DAILY PRN for OPIOID CONSTIPATION, (Reported) Nitroglycerin (Nitrostat), 0.4 MG SL NITRO PRN for CHEST PAIN, (Reported) Polyethylene Glycol 3350 (Miralax), 17 GM PO DAILY PRN for CONSTIPATION, (Reported) VS, I&O, 24H, Fishbone Vital Signs/I&O Vital Signs Date Time Temp Pulse Resp B/P (MAP) Pulse Ox O2 Delivery O2 Flow Rate FiO2 08/28/21 13:25 97.5 68 18 116/58 (77) 92 Room Air MARITA HANNA MD Aug 30, 2021 12:29
== END ==
LOC: M IRPOV 13:05
PROVIDERS: ATTEND Radiology Diagnostic Radiology
DX: I70.223 Atherosclerosis of native arteries of extremities with rest pain, bilateral legs (principal); I70.249 Atherosclerosis of native arteries of left leg with ulceration of unspecified site; E11.22 Type 2 diabetes mellitus with diabetic chronic kidney disease; E11.52 Type 2 diabetes mellitus with diabetic peripheral angiopathy with gangrene; E78.5 Hyperlipidemia, unspecified; I13.2 Hypertensive heart and chronic kidney disease with heart failure and with stage 5 chronic kidney disease, or end stage renal disease; I25.10 Atherosclerotic heart disease of native coronary artery without angina pectoris; I25.2 Old myocardial infarction; I50.9 Heart failure, unspecified; J44.9 Chronic obstructive pulmonary disease, unspecified; N18.6 End stage renal disease; Z79.899 Other long term (current) drug therapy; Z85.51 Personal history of malignant neoplasm of bladder; Z88.0 Allergy status to penicillin; Z88.1 Allergy status to other antibiotic agents; Z88.6 Allergy status to analgesic agent; Z87.891 Personal history of nicotine dependence; Z95.4 Presence of other heart-valve replacement

== ENCOUNTER → 2021-09-06 | Outpatient (CLI) | payer MEDICARE, OTHER ==
[~2021-09-06] MED LIST changes: +TREL1AER PO; +VITACAP31 PO; +XANA0.25 PO
[2021-09-06 14:24] LABS: BASO % 0.3 % (0.0-1.0); EOS # 0.4 10^3/uL (0.0-0.5); EOS % 2.8 % (0.0-3.0); HEMATOCRIT 35.9 % (42.0-52.0); HEMOGLOBIN 10.8 g/dl (13.5-17.5); LYMPH # 1.2 10^3/uL (1.5-5.0); LYMPH % 9.8 % (24.0-44.0); MEAN CORPUSCULAR HEMOGLOBIN 30.7 pg (27.0-33.0); MEAN CORPUSCULAR HGB CONC 30.1 g/dl (32.0-36.5); MONO # 0.9 10^3/uL (0.0-0.8); MONO % 7.6 % (2.0-8.0); NEUTROPHILS # 9.6 10^3/uL (1.5-8.5); PLATELET COUNT, AUTOMATED 198 10^3/uL (150-450); RED BLOOD COUNT 3.52 10^6/uL (4.30-6.10); WHITE BLOOD COUNT 12.3 10^3/uL (4.0-10.0)
[2021-09-06 15:16] LABS: ERYTHROCYTE SEDIMENTATION RATE 74 mm/hr (0-20)
== END ==
LOC: M PLALAB 12:03
PROVIDERS: ATTEND Internal Medicine Infectious Disease
DX: M86.9 Osteomyelitis, unspecified (principal); E11.621 Type 2 diabetes mellitus with foot ulcer; L97.524 Non-pressure chronic ulcer of other part of left foot with necrosis of bone
CPT/HCPCS: 11042; 11044; 36415; 85025; 85652; 86140; 97597; G0463

== ENCOUNTER → 2021-09-13 | Outpatient (CLI) | payer MEDICARE, OTHER ==
[~2021-09-13] MED LIST changes: +ISOVUE-300 61% 50ML VIAL As Ordered ONE; +LIDOCAINE 1% MDV 20ML VIAL As Ordered ONE; +MIDAZOLAM INJ 2MG/2ML VIAL (J2250 PER 1MG) As Ordered ONE; +NS 1,000 ML IV SCH; +PROMETHAZINE INJ 25 MG/ML VIAL (J2550) As Ordered ONE; +diphenhydrAMINE 50MG/ML VIAL (J1200) As Ordered ONE; +fentaNYL 100 MCG/2 ML INJECTION (J3010) As Ordered ONE
--- NOTE | 2021-09-13 10:18 | IRHP ---
[facility] IR Pre-Procedure H & P General Date of Service: Sep 13, 2021 Procedure: Same Day Surgery Interval History and Physical I have seen the patient and reviewed last H & P performed within 30 days. There is no significant interval change. History of Present Illness Chief Complaint The patient is a 76-year-old male admitted with a reason for visit of PAD. PRE-PROCEDURE DIAGNOSIS: PAD HEART: Normal rate. LUNGS: Normal breathing at rest. ASA Classification ASA Classification: III-Severe systemic dis. Mallampati Score: II NPO: Yes Problems with prior sedation: No Obstructive Sleep Apnea: No Plan moderate sedation Allergies Coded Allergies: ampicillin (Verified Allergy, Intermediate, HIVES, 03/17/19) aspirin (Verified Allergy, Intermediate, LIPS SWELL, 07/02/21) Penicillins (Unverified Allergy, Mild, RASH, 07/02/21) ceftriaxone (Verified Allergy, Unknown, UNKNOWN REACTION, 04/09/19) Home Medications Scheduled Atorvastatin Calcium (Atorvastatin Calcium), 20 MG PO QHS, (Reported) Calcitriol (Calcitriol), 0.25 MCG PO 3XW, (Reported) Calcium Carbonate/Vitamin D3 (Calcium 600-Vit D3 800 Tablet), 1 TAB PO QHS, (Reported) Carvedilol (Carvedilol), 3.125 MG PO BID, (Reported) Cholecalciferol (Vitamin D3) (Vitamin D3), 150 MCG PO DAILY, (Reported) Clopidogrel Bisulfate (Plavix), 75 MG PO DAILY, (Reported) Docusate Sodium (Docusate Sodium), 100 MG PO BID, (Reported) Duloxetine Hcl (Duloxetine HCl), 60 MG PO QHS, (Reported) Famotidine (Famotidine), 20 MG PO QHS, (Reported) Fluticasone Propionate (Flonase Allergy Relief), 2 SPRAYS NA DAILY, (Reported) L.acidoph/L.bulg/B.bif/S.therm (Bacid Caplet), 1 TAB PO QHS, (Reported) Minocycline HCl (Minocycline HCl), 1 TAB PO BID Mirtazapine (Remeron), 15 MG PO QHS, (Reported) Multivitamins (Thera M Plus Tablet), 1 TAB PO DAILY, (Reported) Multivitamins (Thera M Plus Tablet), 1 TAB PO DAILY, (Reported) Sevelamer Carbonate (Sevelamer Carbonate), 800 MG PO WM, (Reported) Tamsulosin HCl (Flomax), 0.4 MG PO DAILY, (Reported) Tiotropium [place] (Spiriva Respimat), 2 PUFF INH DAILY, (Reported) Ubidecarenone (Co Q-10), 200 MG PO DAILY, (Reported) Scheduled PRN Acetaminophen with Codeine (Acetaminophen-Cod #3 Tablet), 1 TAB PO QID PRN for MODERATE PAIN (PS 5-7), (Reported) Acetaminophen/Diphenhydramine (Acetaminophen Pm Caplet), 1 TAB PO QHS PRN for INSOMNIA, (Reported) Albuterol Sulf (Albuterol Sulfate), 2.5 MG INH QID PRN for SHORTNESS OF BREATH, (Reported) Albuterol Sulfate (Proair Hfa), 2 PUFF INH Q4H PRN for SHORTNESS OF BREATH, (Reported) Benzonatate (Tessalon [place]), 100 MG PO Q8H PRN for COUGH, (Reported) Hydroxyzine HCl (Hydroxyzine HCl), 30 MG PO QID PRN for ITCHING, (Reported) Lactulose (Lactulose), 30 ML PO DAILY PRN for CONSTIPATION, (Reported) Melatonin (Melatonin), 5 MG PO QHS PRN for INSOMNIA, (Reported) Morphine Sulfate (Morphine Sulfate), 15 MG PO TID PRN for SEVERE PAIN (PS 8-10), (Reported) Naldemedine Tosylate (Symproic), 0.2 MG PO DAILY PRN for OPIOID CONSTIPATION, (Reported) Nitroglycerin (Nitrostat), 0.4 MG SL NITRO PRN for CHEST PAIN, (Reported) Polyethylene Glycol 3350 (Miralax), 17 GM PO DAILY PRN for CONSTIPATION, (Reported) VS, I&O, 24H, Fishbone Vital Signs/I&O Vital Signs Date Time Temp Pulse Resp B/P (MAP) Pulse Ox O2 Delivery O2 Flow Rate FiO2 09/13/21 09:15 97.5 86 20 93 MARITA HANNA MD Sep 13, 2021 10:18
--- NOTE | 2021-09-13 14:27 | IRPON ---
IR Postoperative Note Date Of Procedure: Sep 13, 2021 Time Of Procedure: 14:07 IR Postoperative Note IR Left leg angiogram IR Left below-knee runoff arteriogram. IR Left superficial femoral artery angioplasty. IR Moderate sedation. Clinical Information:Left lower extremity nonhealing wounds. Physician: Dr. Dotson. Procedure: The patient was advised of the benefits, risks, and alternatives of the pro cedure and informed consent was obtained. A time out was performed with verification of the patient's name, MRN, site of procedure, and type of procedure to be performed. The patient was positioned in the supine position on the angiographic table. The site was prepped and draped in the usual sterile fashion. Moderate sedation was performed by the physician including the presence of an independent trained RN, who assisted in monitoring the patient's level of consciousness and physiological status. Following the administration of fentanyl and Versed, the physician spent 90 minutes of continuous [id number] time with the patient. A cut out stitcher radiograph reveals calcified left superficial femoral artery. Lidocaine was used for local anesthesia. The right common femoral artery was accessed, under fluoroscopy guidance with a microintroducer set. A short 0.018" [place] wire was inserted, under fluoroscopy guidance and the needle was exchanged for a 4 Fr microintroducer sheath. The guidewire and dilator were removed and a 0.035" [place] wire was advanced under fluoroscopy guidance and placed into the abdominal aorta. A 6 Fr sheath was placed over the wire. An Omni Flush catheter was advanced over the wire, under fluoroscopy guidance and used to catheterize the infrarenal abdominal aorta. A pelvic arteriogram was performed. This demonstrates unremarkable infrarenal abdominal aorta. Patent bilateral common iliac, internal iliac and external iliac arteries. A wire was advanced through the flush catheter, under fluoroscopy guidance and used to gain up and over access into the left external iliac artery. The catheter was removed over the wire. A 5 Chinese glide cath was advanced over the wire, under fluoroscopy guidance and used to catheterize the left common fe moral artery. A left leg angiogram was performed. This demonstrates patent left superficial femoral artery and profunda femoris. There is multifocal, severe stenosis, greater than 80% in some segments, associated with bulky calcification in the mid and distal left superficial femoral artery. Angiography further down the left leg demonstrates patent popliteal artery. Below-knee runoff arteriogram demonstrates patent posterior tibial artery and peroneal artery. Occluded anterior tibial artery. Angiography over the left foot demonstrates peroneal artery continues to the ankle. Posterior tibial artery continues to runoff into the left foot, supplying patent calcaneal and plantar branches. Incomplete pedal loop and no significant reconstitution of dorsalis pedis. The catheter in conjunction with a wire was used under fluoroscopy guidance, to catheterize the proximal left superficial femoral artery. The catheter was removed over the wire. The short sheath was exchanged for a 6 Chinese 45 destination sheath. This was advanced over the wire, under fluoroscopy guidance and positioned in the left common femoral artery. An 035 [place] catheter was then used under fluoroscopy guidance, in conjunction with a wire, to catheterize the distal superficial femoral artery. Angiogram from this location confirmed intraluminal location and runoff below the knee. The catheter was removed over the wire. A 6 x 200 mm [place] balloon was then advanced over the wire, under fluoroscopy guidance and positioned in the mid and distal left superficial femoral artery. Heparin was administered. Angioplasty was performed. The balloon was deflated and repositioned in the proximal and mid left superficial femoral artery. Further angioplasty was performed. The balloon was then deflated and removed over the wire. A post angioplasty follow-up arteriogram was performed, which demonstrates improved flow through the proximal, mid and distal left superficial femoral artery. Below-knee angiography was performed and this demonstrates faster inflow to the popliteal artery and preserved flow in the popliteal, posterior tibial and peroneal artery with no distal vessel cutoff or emboli. 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 Further sedation was used but did not help, rather it served to disorient the patient. Therefore, the procedure was aborted at this juncture with plans to bring the patient back under general anesthesia for below-knee anterior tibial artery recanalization. The catheter was removed over the wire. The long sheath was exchanged, over the wire, under fluoroscopy guidance, for a short sheath. A Mynx device was used to close the right groin arteriotomy and the sheath was removed. Pressure held and hemostasis achieved. A sterile dressing was applied to the site. The patient tolerated the procedure well and was returned to the PRU in stable condition. EBL: < 5 mL. Complications:None. Impression: 1. Left leg angiogram demonstrates multifocal severe stenosis in a heavily calcified left superficial femoral artery with greater than 80% stenosis in a reas of the mid and distal left superficial femoral artery. 2. Occluded anterior tibial artery with posterior tibial artery runoff into the left foot, incomplete pedal loop and no significant reconstitution of the dorsalis pedis. 3. Successful angioplasty of left superficial femoral artery with improved flow. 4. Patient could not remain still on the table any longer, due to chronic involuntary contractures in his legs. Therefore, the patient will be brought back under anesthesia for left anterior tibial artery recanalization. Thank you for this referral. Cc JAQUELINE Meza SIMA MD Sep 13, 2021 14:27
[2021-09-13 15:50] VITALS: BP 109/56
== END ==
LOC: M IRPRO 08:59
PROVIDERS: ATTEND Radiology Diagnostic Radiology
DX: I70.249 Atherosclerosis of native arteries of left leg with ulceration of unspecified site (principal); L97.929 Non-pressure chronic ulcer of unspecified part of left lower leg with unspecified severity; Z79.899 Other long term (current) drug therapy; Z88.0 Allergy status to penicillin; Z88.1 Allergy status to other antibiotic agents; Z88.6 Allergy status to analgesic agent
CPT/HCPCS: 37224; 75710; 75774; 99152; 99153; C1725; C1760; C1769; C1887; C1894; J1200; J1644; J2250; J3010; Q9967

== ENCOUNTER → 2021-09-25 | Outpatient (CLI) | payer MEDICARE, OTHER ==
[~2021-09-25] MED LIST changes: +CETI-25 PO; -CETI10TA8 PO; +D3 S1CAP3 PO; +DAPT500V18 IV; -DAPT50VL IV; -ISOS10TA PO; +ISOS10TA9 PO; -ISOVUE-300 61% 50ML VIAL As Ordered ONE; -LIDOCAINE 1% MDV 20ML VIAL As Ordered ONE; +LOSA100T45 PO; -LOSA100T50 PO; -MIDAZOLAM INJ 2MG/2ML VIAL (J2250 PER 1MG) As Ordered ONE; -NS 1,000 ML IV SCH; -PROMETHAZINE INJ 25 MG/ML VIAL (J2550) As Ordered ONE; -diphenhydrAMINE 50MG/ML VIAL (J1200) As Ordered ONE; -fentaNYL 100 MCG/2 ML INJECTION (J3010) As Ordered ONE
== END ==
LOC: M PLAIMG 12:36 → M PLALAB 12:36
PROVIDERS: ATTEND Internal Medicine Infectious Disease
DX: M86.672 Other chronic osteomyelitis, left ankle and foot (principal); L97.524 Non-pressure chronic ulcer of other part of left foot with necrosis of bone; I73.9 Peripheral vascular disease, unspecified; A49.01 Methicillin susceptible Staphylococcus aureus infection, unspecified site; N18.6 End stage renal disease
CPT/HCPCS: 73620; 87070; 87077; 87186; G0463

== ENCOUNTER → 2021-10-02 | Outpatient (POV) | payer MEDICARE, OTHER ==
[~2021-10-02] VITALS: Ht 167.6 cm; Wt 81.8 kg
[2021-10-02 08:30] VITALS: BP 153/72
== END ==
LOC: M IRPOV 08:24
PROVIDERS: ATTEND Radiology Diagnostic Radiology
DX: Z48.812 Encounter for surgical aftercare following surgery on the circulatory system (principal); I70.249 Atherosclerosis of native arteries of left leg with ulceration of unspecified site; Z88.0 Allergy status to penicillin; Z88.1 Allergy status to other antibiotic agents; Z88.6 Allergy status to analgesic agent

== ENCOUNTER 2021-10-15 11:09 | Emergency (ER) | payer MEDICARE, OTHER ==
[~2021-10-15] VITALS: Ht 167.6 cm; Wt 81.8 kg
[~2021-10-15 11:09] MED LIST changes: -CETI-25 PO; +CETI10TA8 PO; -D3 S1CAP3 PO; -DAPT500V18 IV; +DAPT50VL IV; +ISOS10TA PO; -ISOS10TA9 PO; -LOSA100T45 PO; +LOSA100T50 PO
[2021-10-15] MEDS ORDERED: ONDANSETRON 4MG/2ML VIAL IV ONE (11:45)
--- NOTE | 2021-10-15 12:18 | REP ---
INDICATION: vomiting; r/o obstruction; dialysis pt. COMPARISON: 04/20/2020 the latest prior TECHNIQUE: Standard helical technique without contrast FINDINGS: There are chronic changes in the lung bases status quo. Limited evaluation of the liver, spleen, pancreas, adrenal glands, and kidneys show no acute abnormalities or significant changes compared to the prior exam. Note is again made of cholelithiasis. There is no significant change in appearance of the abdominal aorta or para-aortic regions. There is spray artifact due to beam hardening seen arising from a left hip prosthesis. There is no evidence of gross free pelvic fluid or adenopathy. The bowel loops and the mesenteries are unremarkable. Bone window technique throughout the examination again shows advanced chronic spinal degenerative changes and chronic discogenic changes status quo. IMPRESSION: Chronic changes and exam limitations as described above. There is no evidence of acute disease. <Electronically signed by Mehdi Emmanuel > 10/15/21 [id number]
[2021-10-15 12:57] LABS: BASO % 0.2 % (0.0-1.0); EOS # 0.2 10^3/uL (0.0-0.5); EOS % 1.5 % (0.0-3.0); HEMATOCRIT 34.4 % (42.0-52.0); HEMOGLOBIN 10.2 g/dl (13.5-17.5); LYMPH # 1.2 10^3/uL (1.5-5.0); LYMPH % 9.8 % (24.0-44.0); MEAN CORPUSCULAR HEMOGLOBIN 30.9 pg (27.0-33.0); MEAN CORPUSCULAR HGB CONC 29.7 g/dl (32.0-36.5); MEAN CORPUSCULAR VOLUME 104.2 fl (80.0-96.0); MONO # 1.1 10^3/uL (0.0-0.8); MONO % 8.8 % (2.0-8.0); NEUTROPHILS # 9.9 10^3/uL (1.5-8.5); NEUTROPHILS % 78.9 % (36.0-66.0); PLATELET COUNT, AUTOMATED 199 10^3/uL (150-450); WHITE BLOOD COUNT 12.6 10^3/uL (4.0-10.0)
[2021-10-15 13:22] LABS: ALBUMIN 3.6 GM/DL (3.2-5.2); BILIRUBIN,DIRECT 0.1 MG/DL (0.0-0.2); BILIRUBIN,TOTAL 0.5 MG/DL (0.2-1.0); CALCIUM LEVEL 8.7 MG/DL (8.8-10.2); CREATININE FOR GFR 7.74 MG/DL (0.70-1.30); GLOMERULAR FILTRATION RATE 7.3 (>42); TOTAL PROTEIN 7.1 GM/DL (6.4-8.2)
[2021-10-15 13:35] VITALS: BP 106/55
--- NOTE | 2021-10-15 19:14 | ECGEPIP ---
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
== END 2021-10-15 13:43 | disposition left against medical advice (07) ==
LOC: M ED 11:09
DX: R11.2 Nausea with vomiting, unspecified (principal); R00.0 Tachycardia, unspecified; I45.10 Unspecified right bundle-branch block; I50.9 Heart failure, unspecified; I25.2 Old myocardial infarction; E11.9 Type 2 diabetes mellitus without complications; I10 Essential (primary) hypertension; N18.6 End stage renal disease; Z99.2 Dependence on renal dialysis; J44.9 Chronic obstructive pulmonary disease, unspecified; F41.9 Anxiety disorder, unspecified; F32.3 Major depressive disorder, single episode, severe with psychotic features; Z85.51 Personal history of malignant neoplasm of bladder; Z95.5 Presence of coronary angioplasty implant and graft; Z53.9 Procedure and treatment not carried out, unspecified reason; Z79.01 Long term (current) use of anticoagulants; Z79.899 Other long term (current) drug therapy; Z88.0 Allergy status to penicillin; Z88.1 Allergy status to other antibiotic agents; Z88.8 Allergy status to other drugs, medicaments and biological substances
CPT/HCPCS: 74176; 80048; 80076; 83605; 83690; 85025; 87040; 87798; 93005; 96374; 99284; J2405

== ENCOUNTER 2021-10-29 14:01 | Inpatient (IN) | payer MEDICARE, OTHER ==
[~2021-10-29] VITALS: Ht 167.6 cm; Wt 84.2 kg
[2021-10-29] VITALS (10 sets, daily range): BP systolic 56–139; BP diastolic 25–64
[~2021-10-29 14:01] MED LIST changes: +CETI-25 PO; -CETI10TA8 PO; -D3 S1CAP3 PO; +DAPT500V18 IV; -DAPT50VL IV; -ISOS10TA PO; +ISOS10TA9 PO; +LOSA100T45 PO; -LOSA100T50 PO
[2021-10-29 14:38] LABS: ABG BASE EXCESS -1.1 (-2.0-2.0); ABG HCO3 30.8 MEQ/L (22.0-26.0); ABG O2 SATURATION 98.9 % (95.0-99.0); ABG PARTIAL PRESSURE O2 175.8 mmHg (75.0-100.0); ABG STANDARD HCO3 23.6 MEQ/L (22.0-26.0); ABG TOTAL CO2 33.9 MEQ/L (23.0-31.0)
[2021-10-29 14:40] LABS: ABG PARTIAL PRESSURE CO2 101.6 mmHg (35.0-45.0); ABG pH (ARTERIAL) 7.099 UNITS (7.350-7.450)
[2021-10-29 14:41] LABS: HEMATOCRIT 36.2 % (42.0-52.0); HEMOGLOBIN 10.8 g/dl (13.5-17.5); MEAN CORPUSCULAR HEMOGLOBIN 31.9 pg (27.0-33.0); MEAN CORPUSCULAR HGB CONC 29.8 g/dl (32.0-36.5); MEAN CORPUSCULAR VOLUME 106.8 fl (80.0-96.0); PLATELET COUNT, AUTOMATED 209 10^3/uL (150-450); RED BLOOD COUNT 3.39 10^6/uL (4.30-6.10); WHITE BLOOD COUNT 15.1 10^3/uL (4.0-10.0)
[2021-10-29] MEDS ORDERED: GABA-1171 PO (14:59)
[2021-10-29] MEDS ORDERED: SYMP0.2T2 PO (14:59)
[2021-10-29] MEDS ORDERED: D3 S1CAP3 PO (15:01)
[2021-10-29] MEDS ORDERED: HOME MED LIST COMPLETE! XX SCH (15:05)
[2021-10-29 15:11] LABS: EOSINOPHILS 3 % (0-3); LYMPHOCYTES 9 % (16-44); METAMYELOCYTES 2 % (0-0); MONOCYTES 3 % (0-5); NEUTROPHILS 82 % (28-66); PLATELET ESTIMATE NORMAL (NORMAL)
[2021-10-29 15:12] LABS: ANISOCYTOSIS 1+
[2021-10-29 15:16] LABS: ALBUMIN 3.5 GM/DL (3.2-5.2); BILIRUBIN,DIRECT 0.1 MG/DL (0.0-0.2); BILIRUBIN,TOTAL 0.4 MG/DL (0.2-1.0); CALCIUM LEVEL 7.8 MG/DL (8.8-10.2); CREATININE FOR GFR 5.35 MG/DL (0.70-1.30); GLOMERULAR FILTRATION RATE 11.1 (>42); MAGNESIUM LEVEL 2.1 MG/DL (1.8-2.4); POTASSIUM SERUM 4.3 MEQ/L (3.5-5.1); THYROID STIMULATING HORMONE 1.84 uIU/ML (0.358-3.740); TOTAL PROTEIN 7.5 GM/DL (6.4-8.2)
[2021-10-29 15:46] LABS: RSV AMPLIFICATION NEGATIVE (NEGATIVE)
[2021-10-29 16:35] LABS: ABG BASE EXCESS 3.1 (-2.0-2.0); ABG HCO3 36.3 MEQ/L (22.0-26.0); ABG O2 SATURATION 89.7 % (95.0-99.0); ABG PARTIAL PRESSURE O2 73.9 mmHg (75.0-100.0); ABG STANDARD HCO3 27.1 MEQ/L (22.0-26.0); ABG TOTAL CO2 40.2 MEQ/L (23.0-31.0)
[2021-10-29 16:36] LABS: ABG PARTIAL PRESSURE CO2 125.4 mmHg (35.0-45.0)
[2021-10-29] MEDS ORDERED: ETOMIDATE INJ 20MG/10ML VIAL IV ONE (16:50)
[2021-10-29] MEDS ORDERED: SUCCINYLCHOLINE INJ 200 MG/10 ML VIAL (J0330) IV ONE (16:50)
[2021-10-29] MEDS ORDERED: PROPOFOL 1,000 MG/100 ML VIAL As Ordered ONE (16:51)
[2021-10-29] MEDS ORDERED: SUCCINYLCHOLINE INJ 200 MG/10 ML VIAL (J0330) As Ordered ONE (16:51)
[2021-10-29] MEDS ORDERED: ETOMIDATE INJ 20MG/10ML VIAL As Ordered ONE (16:51)
[2021-10-29] MEDS: propofoL 1,000 MG in IV 1 EA IV SCH ×4 (17:35→20:10)
[2021-10-29] MEDS: HumaLOG INSULIN (NovoLOG) PER UNIT SC SCH (18:00)
[2021-10-29] MEDS ORDERED: MIDAZOLAM INJ 2MG/2ML VIAL (J2250 PER 1MG) IV PRN (18:05)
[2021-10-29] MEDS ORDERED: GLUCOSE 4GM CHEW TABLET PO PRN (18:35)
[2021-10-29] MEDS ORDERED: GLUCAGON INJ 1MG VIAL SC PRN (18:35)
[2021-10-29] MEDS ORDERED: DOCUSATE SODIUM 100MG CAPSULE PO PRN (18:35)
[2021-10-29] MEDS ORDERED: DEXTROSE 50% 50 ML SYRINGE IV PRN (18:35)
[2021-10-29] MEDS: IPRATROPIUM 0.5MG/ALBUTEROL 2.5MG INH SOL UD 3ML (DUONEB) NEB SCH (19:57)
[2021-10-29] MEDS ORDERED: CARVedilol 3.125 MG TAB PO SCH (21:00)
[2021-10-29] MEDS: PIPERACILLIN/TAZOBACTAM SOD 2.25 GM in D5W MINI-BAG PLUS 50 ML IV SCH (21:03)
[2021-10-29 21:15] LABS: ABG BASE EXCESS 0.2 (-2.0-2.0); ABG O2 SATURATION 96.7 % (95.0-99.0); ABG PARTIAL PRESSURE CO2 54.2 mmHg (35.0-45.0); ABG PARTIAL PRESSURE O2 92.1 mmHg (75.0-100.0); ABG STANDARD HCO3 24.7 MEQ/L (22.0-26.0); ABG TOTAL CO2 28.6 MEQ/L (23.0-31.0); ABG pH (ARTERIAL) 7.315 UNITS (7.350-7.450)
[2021-10-29] MEDS: CHLORHEXIDINE GLUCONATE 0.12 % 15ML UDC (PERIDEX ORAL RINSE) MT SCH (21:34)
[2021-10-29] MEDS: HEPARIN SOD (PORCINE) 5000UNITS/ML 1ML VIAL/SYRINGE SC SCH (22:06)
[2021-10-29] MEDS ORDERED: MIDAZOLAM INJ 2MG/2ML VIAL (J2250 PER 1MG) IV ONE ×2 (22:50→22:55)
[2021-10-29] MEDS: NOREPINEPHRINE BITARTRATE 8 MG in D5W 492 ML IV SCH (23:23)
[2021-10-30] VITALS (98 sets, daily range): BP systolic 78–148; BP diastolic 36–84
[2021-10-30] MEDS ORDERED: REFRIGERATOR IV KEYS XX PRN
[2021-10-30] MEDS: MIDAZOLAM HCL 100 MG in D5W 80 ML IV SCH (00:46)
[2021-10-30] MEDS: PIPERACILLIN/TAZOBACTAM SOD 2.25 GM in D5W MINI-BAG PLUS 50 ML IV SCH ×3 (02:02→14:28)
[2021-10-30 05:15] LABS: HEMATOCRIT 31.8 % (42.0-52.0); HEMOGLOBIN 9.7 g/dl (13.5-17.5); MEAN CORPUSCULAR HEMOGLOBIN 31.7 pg (27.0-33.0); MEAN CORPUSCULAR HGB CONC 30.5 g/dl (32.0-36.5); MEAN CORPUSCULAR VOLUME 103.9 fl (80.0-96.0); PLATELET COUNT, AUTOMATED 205 10^3/uL (150-450); RED BLOOD COUNT 3.06 10^6/uL (4.30-6.10); WHITE BLOOD COUNT 18.6 10^3/uL (4.0-10.0)
[2021-10-30] MEDS: HEPARIN SOD (PORCINE) 5000UNITS/ML 1ML VIAL/SYRINGE SC SCH ×3 (05:38→22:18)
[2021-10-30 05:44] LABS: ALBUMIN 2.9 GM/DL (3.2-5.2); CALCIUM LEVEL 7.8 MG/DL (8.8-10.2); CREATININE FOR GFR 6.48 MG/DL (0.70-1.30); GLOMERULAR FILTRATION RATE 8.9 (>42); PHOSPHORUS LEVEL 4.1 MG/DL (2.5-4.9); POTASSIUM SERUM 4.3 MEQ/L (3.5-5.1)
[2021-10-30 05:54] LABS: ABG BASE EXCESS 1.7 (-2.0-2.0); ABG HCO3 26.6 MEQ/L (22.0-26.0); ABG O2 SATURATION 97.8 % (95.0-99.0); ABG PARTIAL PRESSURE CO2 43.1 mmHg (35.0-45.0); ABG PARTIAL PRESSURE O2 101.6 mmHg (75.0-100.0); ABG TOTAL CO2 27.9 MEQ/L (23.0-31.0); ABG pH (ARTERIAL) 7.408 UNITS (7.350-7.450)
[2021-10-30] MEDS: HumaLOG INSULIN (NovoLOG) PER UNIT SC SCH ×4 (05:57→18:10)
[2021-10-30] MEDS: IPRATROPIUM 0.5MG/ALBUTEROL 2.5MG INH SOL UD 3ML (DUONEB) NEB SCH ×4 (07:05→19:41)
[2021-10-30] MEDS ORDERED: SODIUM CHLORIDE 0.9% 1000ML IV PRN (07:30)
[2021-10-30] MEDS: PANTOPRAZOLE 40MG VIAL (C9113 PER 1) IV SCH (08:14)
[2021-10-30] MEDS ORDERED: VANCOMYCIN HCL 1,000 MG, VIAL MATE ADAPTER 1 EACH in NS 250 ML IV SCH (08:15)
[2021-10-30] MEDS: CLOPIDOGREL 75 MG TAB PO SCH (08:17)
[2021-10-30] MEDS: CHLORHEXIDINE GLUCONATE 0.12 % 15ML UDC (PERIDEX ORAL RINSE) MT SCH ×2 (08:18→20:12)
[2021-10-30] MEDS: HYDROCORTISONE 100 MG/2 ML VIAL (J1720 PER 1) IV SCH ×3 (08:38→20:12)
[2021-10-30] MEDS: NOREPINEPHRINE BITARTRATE 8 MG in D5W 492 ML IV SCH ×2 (08:55→20:13)
[2021-10-30] MEDS ORDERED: VANCOMYCIN HCL 1,000 MG, VIAL MATE ADAPTER 1 EACH in NS 250 ML IV ONE (09:00)
[2021-10-30] MEDS ORDERED: predniSONE 10 MG TAB PO SCH (09:00)
[2021-10-30] MEDS ORDERED: VANCOMYCIN HCL 500 MG in D5W MINI-BAG PLUS 100 ML IV ONE (13:00)
[2021-10-30] MEDS: **VANCO AFTER HD** MISC XX SCH (16:57)
[2021-10-30] MEDS: PIPERACILLIN/TAZOBACTAM SOD 4.5 GM in D5W MINI-BAG PLUS 50 ML IV SCH (20:12)
[2021-10-31] VITALS (96 sets, daily range): BP systolic 74–143; BP diastolic 40–82
[2021-10-31] MEDS: MORPHINE 2 MG/ML 1ML VIAL (J2270) IV PRN ×3 (01:23→08:45)
[2021-10-31] MEDS: HumaLOG INSULIN (NovoLOG) PER UNIT SC SCH ×4 (01:37→18:18)
[2021-10-31] MEDS: HYDROCORTISONE 100 MG/2 ML VIAL (J1720 PER 1) IV SCH ×4 (03:07→21:26)
[2021-10-31] MEDS: NOREPINEPHRINE BITARTRATE 8 MG in D5W 492 ML IV SCH ×3 (03:28→11:52)
[2021-10-31] MEDS ORDERED: MIDAZOLAM INJ 2MG/2ML VIAL (J2250 PER 1MG) As Ordered ONE (04:55)
[2021-10-31] MEDS ORDERED: MIDAZOLAM INJ 2MG/2ML VIAL (J2250 PER 1MG) IV ONE (04:55)
[2021-10-31] MEDS: HEPARIN SOD (PORCINE) 5000UNITS/ML 1ML VIAL/SYRINGE SC SCH (04:57)
[2021-10-31 05:19] LABS: MEAN CORPUSCULAR HEMOGLOBIN 31.6 pg (27.0-33.0); MEAN CORPUSCULAR HGB CONC 32.3 g/dl (32.0-36.5); MEAN CORPUSCULAR VOLUME 98.1 fl (80.0-96.0); PLATELET COUNT, AUTOMATED 201 10^3/uL (150-450); RED BLOOD COUNT 3.16 10^6/uL (4.30-6.10)
[2021-10-31 05:47] LABS: ABG BASE EXCESS -0.6 (-2.0-2.0); ABG HCO3 23.7 MEQ/L (22.0-26.0); ABG O2 SATURATION 98.5 % (95.0-99.0); ABG PARTIAL PRESSURE CO2 37.7 mmHg (35.0-45.0); ABG PARTIAL PRESSURE O2 121.5 mmHg (75.0-100.0); ABG TOTAL CO2 24.8 MEQ/L (23.0-31.0); ABG pH (ARTERIAL) 7.416 UNITS (7.350-7.450)
[2021-10-31 05:59] LABS: ALBUMIN 2.6 GM/DL (3.2-5.2); CALCIUM LEVEL 8.2 MG/DL (8.8-10.2); CREATININE FOR GFR 4.63 MG/DL (0.70-1.30); GLOMERULAR FILTRATION RATE 13.2 (>42); PHOSPHORUS LEVEL 4.8 MG/DL (2.5-4.9)
[2021-10-31] MEDS: IPRATROPIUM 0.5MG/ALBUTEROL 2.5MG INH SOL UD 3ML (DUONEB) NEB SCH ×4 (07:35→20:35)
[2021-10-31] MEDS: CHLORHEXIDINE GLUCONATE 0.12 % 15ML UDC (PERIDEX ORAL RINSE) MT SCH ×2 (08:49→21:26)
[2021-10-31] MEDS: PANTOPRAZOLE 40MG VIAL (C9113 PER 1) IV SCH (08:49)
[2021-10-31] MEDS: CLOPIDOGREL 75 MG TAB PO SCH (08:50)
[2021-10-31] MEDS ORDERED: MIDAZOLAM INJ 2MG/2ML VIAL (J2250 PER 1MG) IV STA (09:16)
[2021-10-31] MEDS ORDERED: MIDAZOLAM INJ 2MG/2ML VIAL (J2250 PER 1MG) IV PRN (09:20)
[2021-10-31] MEDS: PIPERACILLIN/TAZOBACTAM SOD 4.5 GM in D5W MINI-BAG PLUS 50 ML IV SCH ×2 (09:33→20:14)
[2021-10-31] MEDS: propofoL 1,000 MG in IV 1 EA IV SCH ×2 (09:52→17:38)
[2021-10-31] MEDS: **VANCO AFTER HD** MISC XX SCH (16:00)
[2021-10-31] MEDS: MIDAZOLAM HCL 100 MG in D5W 80 ML IV SCH ×3 (16:04)
[2021-11-01] VITALS (63 sets, daily range): BP systolic 77–163; BP diastolic 42–85; O2SAT 97
[2021-11-01] MEDS: HumaLOG INSULIN (NovoLOG) PER UNIT SC SCH ×4 (00:19→17:14)
[2021-11-01] MEDS: propofoL 1,000 MG in IV 1 EA IV SCH (02:59)
[2021-11-01] MEDS: HYDROCORTISONE 100 MG/2 ML VIAL (J1720 PER 1) IV SCH ×4 (03:41→21:02)
[2021-11-01 05:45] LABS: ABG BASE EXCESS -1.5 (-2.0-2.0); ABG HCO3 22.6 MEQ/L (22.0-26.0); ABG O2 SATURATION 97.6 % (95.0-99.0); ABG PARTIAL PRESSURE CO2 35.7 mmHg (35.0-45.0); ABG PARTIAL PRESSURE O2 111.3 mmHg (75.0-100.0); ABG STANDARD HCO3 23.2 MEQ/L (22.0-26.0); ABG TOTAL CO2 23.7 MEQ/L (23.0-31.0); ABG pH (ARTERIAL) 7.419 UNITS (7.350-7.450)
[2021-11-01 05:50] LABS: HEMOGLOBIN 9.9 g/dl (13.5-17.5); MEAN CORPUSCULAR VOLUME 97.1 fl (80.0-96.0); PLATELET COUNT, AUTOMATED 195 10^3/uL (150-450); RED BLOOD COUNT 3.09 10^6/uL (4.30-6.10)
[2021-11-01 06:28] LABS: ALBUMIN 2.5 GM/DL (3.2-5.2); CALCIUM LEVEL 8.6 MG/DL (8.8-10.2); CREATININE FOR GFR 5.98 MG/DL (0.70-1.30); GLOMERULAR FILTRATION RATE 9.8 (>42); PHOSPHORUS LEVEL 5.3 MG/DL (2.5-4.9); POTASSIUM SERUM 3.9 MEQ/L (3.5-5.1)
[2021-11-01] MEDS: IPRATROPIUM 0.5MG/ALBUTEROL 2.5MG INH SOL UD 3ML (DUONEB) NEB SCH ×4 (07:15→19:54)
[2021-11-01] MEDS ORDERED: LIDOCAINE 1% SDV 5ML VIAL SC PRN (07:45)
[2021-11-01] MEDS ORDERED: SODIUM CHLORIDE 0.9% 1000ML IV PRN (07:45)
[2021-11-01] MEDS: NOREPINEPHRINE BITARTRATE 8 MG in D5W 492 ML IV SCH (07:58)
[2021-11-01] MEDS: VITAMIN D 1,000 INTERNATIONAL UNITS TABLET PO SCH (09:00)
[2021-11-01] MEDS: LACTOBACILLUS ACIDOPHILUS CAP (BACID) PO SCH (09:00)
[2021-11-01] MEDS: GABAPENTIN 100 MG CAP PO SCH ×2 (09:00→20:59)
[2021-11-01] MEDS: PIPERACILLIN/TAZOBACTAM SOD 4.5 GM in D5W MINI-BAG PLUS 50 ML IV SCH ×2 (09:04→20:12)
[2021-11-01] MEDS: CLOPIDOGREL 75 MG TAB PO SCH (09:05)
[2021-11-01] MEDS: PANTOPRAZOLE 40MG VIAL (C9113 PER 1) IV SCH (09:05)
[2021-11-01] MEDS: CHLORHEXIDINE GLUCONATE 0.12 % 15ML UDC (PERIDEX ORAL RINSE) MT SCH (09:05)
[2021-11-01] MEDS: (RENVELA) SEVELAMER **CARBONate** 800 MG TAB PO SCH ×2 (12:30→17:46)
[2021-11-01] MEDS: **VANCO AFTER HD** MISC XX SCH (16:00)
[2021-11-01] MEDS: VANCOMYCIN HCL 1,000 MG, VIAL MATE ADAPTER 1 EACH in NS 250 ML IV SCH (17:39)
[2021-11-01] MEDS ORDERED: LORazepam 2 MG/ML VIAL IV STA (18:41)
[2021-11-01] MEDS: QUEtiapine FUMARATE 25 MG TAB PO SCH (20:00)
[2021-11-01] MEDS: MORPHINE 2 MG/ML 1ML VIAL (J2270) IV PRN (20:55)
[2021-11-01] MEDS: DULoxetine 30MG CAPSULE (CYMBALTA) PO SCH (20:58)
[2021-11-01] MEDS: ATORVASTATIN 20 MG TAB PO SCH (20:58)
[2021-11-01] MEDS: MIRTAZAPINE 15 MG TAB PO SCH (20:59)
[2021-11-01] MEDS: MORPHINE 15 MG SA TAB PO SCH (21:00)
[2021-11-02] VITALS (53 sets, daily range): BP systolic 73–158; BP diastolic 38–91
[2021-11-02] MEDS ORDERED: DEXTROSE 50% 50 ML SYRINGE IV ONE (00:50)
[2021-11-02] MEDS: MORPHINE 2 MG/ML 1ML VIAL (J2270) IV PRN ×3 (01:09→21:46)
[2021-11-02] MEDS: QUEtiapine FUMARATE 25 MG TAB PO SCH (02:19)
[2021-11-02] MEDS ORDERED: LORazepam 2 MG/ML VIAL IM STA (02:21)
[2021-11-02] MEDS: HYDROCORTISONE 100 MG/2 ML VIAL (J1720 PER 1) IV SCH (03:00)
[2021-11-02] MEDS ORDERED: LORazepam 2 MG/ML VIAL IV PRN (06:00)
[2021-11-02] MEDS: HumaLOG INSULIN (NovoLOG) PER UNIT SC SCH ×6 (06:00→23:56)
[2021-11-02] MEDS ORDERED: METOPROLOL SUCC *XL* 25MG TAB (TopROL *XL*) PO SCH (06:00)
[2021-11-02 06:27] LABS: HEMATOCRIT 29.4 % (42.0-52.0); HEMOGLOBIN 9.3 g/dl (13.5-17.5); MEAN CORPUSCULAR HEMOGLOBIN 31.7 pg (27.0-33.0); MEAN CORPUSCULAR HGB CONC 31.6 g/dl (32.0-36.5); MEAN CORPUSCULAR VOLUME 100.3 fl (80.0-96.0); PLATELET COUNT, AUTOMATED 146 10^3/uL (150-450); RED BLOOD COUNT 2.93 10^6/uL (4.30-6.10); WHITE BLOOD COUNT 13.1 10^3/uL (4.0-10.0)
[2021-11-02 06:54] LABS: ALBUMIN 2.5 GM/DL (3.2-5.2); CALCIUM LEVEL 8.7 MG/DL (8.8-10.2); CREATININE FOR GFR 3.76 MG/DL (0.70-1.30); GLOMERULAR FILTRATION RATE 16.7 (>42); PHOSPHORUS LEVEL 3.5 MG/DL (2.5-4.9)
[2021-11-02 07:56] LABS: CK-MB VALUE MASS 4.5 NG/ML (<3.6); MB/CK RELATIVE INDEX 9.78 (< OR =4)
[2021-11-02] MEDS: (RENVELA) SEVELAMER **CARBONate** 800 MG TAB PO SCH ×4 (08:00→17:21)
[2021-11-02] MEDS: VITAMIN D 1,000 INTERNATIONAL UNITS TABLET PO SCH (08:00)
[2021-11-02] MEDS: MORPHINE 15 MG SA TAB PO SCH ×2 (08:01→20:13)
[2021-11-02] MEDS: CALCITRIOL 0.25 MCG CAP (S0169) PO SCH (08:01)
[2021-11-02] MEDS: GABAPENTIN 100 MG CAP PO SCH ×2 (08:01→20:13)
[2021-11-02] MEDS: CLOPIDOGREL 75 MG TAB PO SCH (08:01)
[2021-11-02] MEDS: PIPERACILLIN/TAZOBACTAM SOD 4.5 GM in D5W MINI-BAG PLUS 50 ML IV SCH ×2 (08:02→20:12)
[2021-11-02] MEDS: IPRATROPIUM 0.5MG/ALBUTEROL 2.5MG INH SOL UD 3ML (DUONEB) NEB SCH ×4 (08:33→20:00)
[2021-11-02] MEDS: PANTOPRAZOLE 40MG VIAL (C9113 PER 1) IV SCH (09:11)
[2021-11-02] MEDS: LACTOBACILLUS ACIDOPHILUS CAP (BACID) PO SCH (09:11)
[2021-11-02 09:49] LABS: MAGNESIUM LEVEL 2.1 MG/DL (1.8-2.4)
[2021-11-02] MEDS: predniSONE 10 MG TAB PO SCH (10:18)
[2021-11-02] MEDS: dexmedeTOMidine 200 MCG in IV 1 EA IV SCH ×2 (11:40→16:33)
[2021-11-02] MEDS: ALPRAZolam 0.25 MG TAB PO PRN ×2 (12:08→21:46)
[2021-11-02 15:37] LABS: ABG BASE EXCESS -1.2 (-2.0-2.0); ABG HCO3 24.2 MEQ/L (22.0-26.0); ABG O2 SATURATION 95.2 % (95.0-99.0); ABG PARTIAL PRESSURE CO2 43.9 mmHg (35.0-45.0); ABG PARTIAL PRESSURE O2 85.3 mmHg (75.0-100.0); ABG STANDARD HCO3 23.4 MEQ/L (22.0-26.0); ABG TOTAL CO2 25.6 MEQ/L (23.0-31.0)
[2021-11-02] MEDS: NOREPINEPHRINE BITARTRATE 8 MG in D5W 492 ML IV SCH (15:47)
[2021-11-02] MEDS: **VANCO AFTER HD** MISC XX SCH (15:59)
[2021-11-02] MEDS ORDERED: QUEtiapine FUMARATE 50MG TAB PO SCH (20:00)
[2021-11-02] MEDS: ATORVASTATIN 20 MG TAB PO SCH (20:12)
[2021-11-02] MEDS: DULoxetine 30MG CAPSULE (CYMBALTA) PO SCH (20:12)
[2021-11-02] MEDS: HEPARIN SOD (PORCINE) 5000UNITS/ML 1ML VIAL/SYRINGE SQ SCH (20:13)
[2021-11-02] MEDS: MIRTAZAPINE 15 MG TAB PO SCH (20:13)
[2021-11-02] MEDS ORDERED: LORazepam 2 MG/ML VIAL IV STA (22:14)
[2021-11-02] MEDS ORDERED: HALOPERIDOL 5MG/ML VIAL (J1630 PER 1) IV ONE (22:15)
[2021-11-03] VITALS (70 sets, daily range): BP systolic 84–169; BP diastolic 40–80
[2021-11-03] MEDS: HumaLOG INSULIN (NovoLOG) PER UNIT SC SCH ×3 (06:00→17:45)
[2021-11-03 06:41] LABS: HEMOGLOBIN 9.3 g/dl (13.5-17.5); MEAN CORPUSCULAR HEMOGLOBIN 31.6 pg (27.0-33.0); PLATELET COUNT, AUTOMATED 164 10^3/uL (150-450); RED BLOOD COUNT 2.94 10^6/uL (4.30-6.10); WHITE BLOOD COUNT 16.4 10^3/uL (4.0-10.0)
[2021-11-03 06:56] LABS: ALBUMIN 2.6 GM/DL (3.2-5.2); CALCIUM LEVEL 8.7 MG/DL (8.8-10.2); CREATININE FOR GFR 5.42 MG/DL (0.70-1.30); PHOSPHORUS LEVEL 6.4 MG/DL (2.5-4.9); POTASSIUM SERUM 4.3 MEQ/L (3.5-5.1)
[2021-11-03] MEDS ORDERED: SODIUM CHLORIDE 0.9% 1000ML IV PRN (07:25)
[2021-11-03] MEDS ORDERED: LIDOCAINE 1% SDV 5ML VIAL SC PRN (07:25)
[2021-11-03] MEDS: IPRATROPIUM 0.5MG/ALBUTEROL 2.5MG INH SOL UD 3ML (DUONEB) NEB SCH ×4 (08:00→21:47)
[2021-11-03] MEDS: PIPERACILLIN/TAZOBACTAM SOD 4.5 GM in D5W MINI-BAG PLUS 50 ML IV SCH ×2 (08:05→20:05)
[2021-11-03] MEDS: PANTOPRAZOLE 40MG VIAL (C9113 PER 1) IV SCH (08:11)
[2021-11-03] MEDS: HEPARIN SOD (PORCINE) 5000UNITS/ML 1ML VIAL/SYRINGE SQ SCH ×2 (08:12→20:06)
[2021-11-03] MEDS: LACTOBACILLUS ACIDOPHILUS CAP (BACID) PO SCH (08:23)
[2021-11-03] MEDS: (RENVELA) SEVELAMER **CARBONate** 800 MG TAB PO SCH ×3 (08:24→17:58)
[2021-11-03] MEDS: MORPHINE 15 MG SA TAB PO SCH ×2 (08:24→20:06)
[2021-11-03] MEDS: GABAPENTIN 100 MG CAP PO SCH ×2 (08:25→20:06)
[2021-11-03] MEDS: CLOPIDOGREL 75 MG TAB PO SCH (08:25)
[2021-11-03] MEDS: VITAMIN D 1,000 INTERNATIONAL UNITS TABLET PO SCH (08:25)
[2021-11-03] MEDS: predniSONE 10 MG TAB PO SCH (08:27)
[2021-11-03] MEDS ORDERED: DEXTROSE 50% 50 ML SYRINGE IV STA (11:20)
[2021-11-03] MEDS: MORPHINE 2 MG/ML 1ML VIAL (J2270) IV PRN (15:06)
[2021-11-03] MEDS: NOREPINEPHRINE BITARTRATE 8 MG in D5W 492 ML IV SCH (15:30)
[2021-11-03] MEDS: VANCOMYCIN HCL 1,000 MG, VIAL MATE ADAPTER 1 EACH in NS 250 ML IV SCH (15:44)
[2021-11-03] MEDS: ALPRAZolam 0.25 MG TAB PO PRN ×2 (15:48→22:12)
[2021-11-03] MEDS: **VANCO AFTER HD** MISC XX SCH (16:00)
[2021-11-03] MEDS: DULoxetine 30MG CAPSULE (CYMBALTA) PO SCH (20:05)
[2021-11-03] MEDS: ATORVASTATIN 20 MG TAB PO SCH (20:05)
[2021-11-03] MEDS: MIRTAZAPINE 15 MG TAB PO SCH (20:06)
[2021-11-04] VITALS (49 sets, daily range): BP systolic 78–138; BP diastolic 39–73
[2021-11-04] MEDS: MORPHINE 2 MG/ML 1ML VIAL (J2270) IV PRN (02:24)
[2021-11-04] MEDS: HumaLOG INSULIN (NovoLOG) PER UNIT SC SCH ×5 (05:27→23:18)
[2021-11-04 05:46] LABS: ALBUMIN 2.6 GM/DL (3.2-5.2); CALCIUM LEVEL 8.4 MG/DL (8.8-10.2); CREATININE FOR GFR 4.07 MG/DL (0.70-1.30); GLOMERULAR FILTRATION RATE 15.3 (>42); PHOSPHORUS LEVEL 4.9 MG/DL (2.5-4.9); POTASSIUM SERUM 4.4 MEQ/L (3.5-5.1)
[2021-11-04 05:48] LABS: HEMATOCRIT 31.8 % (42.0-52.0); HEMOGLOBIN 9.7 g/dl (13.5-17.5); MEAN CORPUSCULAR HEMOGLOBIN 31.9 pg (27.0-33.0); MEAN CORPUSCULAR HGB CONC 30.5 g/dl (32.0-36.5); MEAN CORPUSCULAR VOLUME 104.6 fl (80.0-96.0); PLATELET COUNT, AUTOMATED 169 10^3/uL (150-450); RED BLOOD COUNT 3.04 10^6/uL (4.30-6.10); WHITE BLOOD COUNT 15.9 10^3/uL (4.0-10.0)
[2021-11-04] MEDS: IPRATROPIUM 0.5MG/ALBUTEROL 2.5MG INH SOL UD 3ML (DUONEB) NEB SCH ×4 (08:11→18:26)
[2021-11-04] MEDS: PIPERACILLIN/TAZOBACTAM SOD 4.5 GM in D5W MINI-BAG PLUS 50 ML IV SCH ×2 (08:56→19:15)
[2021-11-04] MEDS: HEPARIN SOD (PORCINE) 5000UNITS/ML 1ML VIAL/SYRINGE SQ SCH ×2 (08:57→20:13)
[2021-11-04] MEDS: LACTOBACILLUS ACIDOPHILUS CAP (BACID) PO SCH (08:58)
[2021-11-04] MEDS: GABAPENTIN 100 MG CAP PO SCH ×2 (08:58→20:11)
[2021-11-04] MEDS: PANTOPRAZOLE 40MG VIAL (C9113 PER 1) IV SCH (08:58)
[2021-11-04] MEDS: MORPHINE 15 MG SA TAB PO SCH ×2 (08:58→20:12)
[2021-11-04] MEDS: MIDODRINE 5 MG TAB PO SCH ×3 (08:58→17:07)
[2021-11-04] MEDS: predniSONE 10 MG TAB PO SCH (08:58)
[2021-11-04] MEDS: VITAMIN D 1,000 INTERNATIONAL UNITS TABLET PO SCH (08:58)
[2021-11-04] MEDS: (RENVELA) SEVELAMER **CARBONate** 800 MG TAB PO SCH ×3 (08:58→17:08)
[2021-11-04] MEDS: CLOPIDOGREL 75 MG TAB PO SCH (08:58)
[2021-11-04] MEDS: NOREPINEPHRINE BITARTRATE 8 MG in D5W 492 ML IV SCH (15:30)
[2021-11-04] MEDS: **VANCO AFTER HD** MISC XX SCH (16:00)
[2021-11-04] MEDS: DULoxetine 30MG CAPSULE (CYMBALTA) PO SCH (20:11)
[2021-11-04] MEDS: MIRTAZAPINE 15 MG TAB PO SCH (20:11)
[2021-11-04] MEDS: ATORVASTATIN 20 MG TAB PO SCH (20:11)
[2021-11-05] VITALS: BP 106/53
[2021-11-05 04:00] VITALS: BP 136/64
[2021-11-05 04:42] LABS: HEMATOCRIT 32.7 % (42.0-52.0); MEAN CORPUSCULAR HEMOGLOBIN 32.2 pg (27.0-33.0); MEAN CORPUSCULAR HGB CONC 30.6 g/dl (32.0-36.5); MEAN CORPUSCULAR VOLUME 105.1 fl (80.0-96.0); PLATELET COUNT, AUTOMATED 182 10^3/uL (150-450); RED BLOOD COUNT 3.11 10^6/uL (4.30-6.10); WHITE BLOOD COUNT 14.3 10^3/uL (4.0-10.0)
[2021-11-05 05:00] LABS: ALBUMIN 2.7 GM/DL (3.2-5.2); CALCIUM LEVEL 8.1 MG/DL (8.8-10.2); CREATININE FOR GFR 5.83 MG/DL (0.70-1.30); GLOMERULAR FILTRATION RATE 10.1 (>42); PHOSPHORUS LEVEL 6.6 MG/DL (2.5-4.9); POTASSIUM SERUM 4.7 MEQ/L (3.5-5.1)
[2021-11-05] MEDS: HumaLOG INSULIN (NovoLOG) PER UNIT SC SCH ×4 (05:02→21:00)
[2021-11-05] MEDS: IPRATROPIUM 0.5MG/ALBUTEROL 2.5MG INH SOL UD 3ML (DUONEB) NEB SCH ×4 (07:28→19:55)
[2021-11-05 08:00] VITALS: BP 137/67
[2021-11-05] MEDS ORDERED: SODIUM CHLORIDE 0.9% 1000ML IV PRN (08:05)
[2021-11-05] MEDS ORDERED: EMLA CREAM 5GM TUBE (LIDOCAINE/PRILOCAINE) TOP SCH (08:05)
[2021-11-05] MEDS: PANTOPRAZOLE 40MG VIAL (C9113 PER 1) IV SCH (08:23)
[2021-11-05] MEDS: LACTOBACILLUS ACIDOPHILUS CAP (BACID) PO SCH (08:24)
[2021-11-05] MEDS: (RENVELA) SEVELAMER **CARBONate** 800 MG TAB PO SCH ×3 (08:24→18:33)
[2021-11-05] MEDS: MIDODRINE 5 MG TAB PO SCH ×3 (08:24→18:30)
[2021-11-05] MEDS: HEPARIN SOD (PORCINE) 5000UNITS/ML 1ML VIAL/SYRINGE SQ SCH ×2 (08:24→21:00)
[2021-11-05] MEDS: VITAMIN D 1,000 INTERNATIONAL UNITS TABLET PO SCH (08:24)
[2021-11-05] MEDS: CLOPIDOGREL 75 MG TAB PO SCH (08:25)
[2021-11-05] MEDS: GABAPENTIN 100 MG CAP PO SCH ×2 (08:25→20:45)
[2021-11-05] MEDS: CALCITRIOL 0.25 MCG CAP (S0169) PO SCH (08:25)
[2021-11-05] MEDS: PIPERACILLIN/TAZOBACTAM SOD 4.5 GM in D5W MINI-BAG PLUS 50 ML IV SCH (08:25)
[2021-11-05] MEDS: MORPHINE 15 MG SA TAB PO SCH ×2 (08:27→20:44)
[2021-11-05] MEDS ORDERED: predniSONE 20 MG TAB PO SCH (09:00)
[2021-11-05 12:00] VITALS: BP 126/72
[2021-11-05 18:00] VITALS: BP 128/70
[2021-11-05] MEDS: **VANCO AFTER HD** MISC XX SCH (18:49)
[2021-11-05] MEDS: VANCOMYCIN HCL 1,000 MG, VIAL MATE ADAPTER 1 EACH in NS 250 ML IV SCH (18:49)
[2021-11-05] MEDS: MIRTAZAPINE 15 MG TAB PO SCH (20:44)
[2021-11-05] MEDS: ATORVASTATIN 20 MG TAB PO SCH (20:44)
[2021-11-05 20:45] VITALS: BP_SYST 126; BP_DIAS 40; BP_DIAS 70
[2021-11-05] MEDS: DULoxetine 30MG CAPSULE (CYMBALTA) PO SCH (20:45)
[2021-11-06] VITALS: BP 136/63
[2021-11-06 04:16] VITALS: BP 135/60
[2021-11-06 06:51] LABS: BASO % 0.2 % (0.0-1.0); EOS # 0.1 10^3/uL (0.0-0.5); EOS % 0.8 % (0.0-3.0); HEMOGLOBIN 9.3 g/dl (13.5-17.5); LYMPH # 0.9 10^3/uL (1.5-5.0); LYMPH % 7.1 % (24.0-44.0); MEAN CORPUSCULAR HEMOGLOBIN 31.7 pg (27.0-33.0); MEAN CORPUSCULAR VOLUME 105.8 fl (80.0-96.0); MONO % 7.9 % (2.0-8.0); NEUTROPHILS # 10.1 10^3/uL (1.5-8.5); NEUTROPHILS % 82.2 % (36.0-66.0); PLATELET COUNT, AUTOMATED 169 10^3/uL (150-450); RED BLOOD COUNT 2.93 10^6/uL (4.30-6.10); WHITE BLOOD COUNT 12.4 10^3/uL (4.0-10.0)
[2021-11-06 07:19] LABS: CALCIUM LEVEL 8.5 MG/DL (8.8-10.2); CREATININE FOR GFR 3.74 MG/DL (0.70-1.30); GLOMERULAR FILTRATION RATE 16.8 (>42); POTASSIUM SERUM 4.7 MEQ/L (3.5-5.1)
[2021-11-06] MEDS: HumaLOG INSULIN (NovoLOG) PER UNIT SC SCH ×4 (07:26→20:02)
[2021-11-06 08:07] VITALS: BP 129/60
[2021-11-06] MEDS: CLOPIDOGREL 75 MG TAB PO SCH (08:10)
[2021-11-06] MEDS: PANTOPRAZOLE 40MG VIAL (C9113 PER 1) IV SCH (08:10)
[2021-11-06] MEDS: GABAPENTIN 100 MG CAP PO SCH ×2 (08:10→20:01)
[2021-11-06] MEDS: LACTOBACILLUS ACIDOPHILUS CAP (BACID) PO SCH (08:10)
[2021-11-06] MEDS: MORPHINE 15 MG SA TAB PO SCH ×2 (08:11→20:01)
[2021-11-06] MEDS: VITAMIN D 1,000 INTERNATIONAL UNITS TABLET PO SCH (08:12)
[2021-11-06] MEDS: (RENVELA) SEVELAMER **CARBONate** 800 MG TAB PO SCH ×3 (08:13→17:34)
[2021-11-06] MEDS: MIDODRINE 5 MG TAB PO SCH ×2 (08:13→14:09)
[2021-11-06] MEDS: HEPARIN SOD (PORCINE) 5000UNITS/ML 1ML VIAL/SYRINGE SQ SCH ×2 (08:14→20:01)
[2021-11-06] MEDS: predniSONE 1 MG TAB PO SCH (08:14)
[2021-11-06] MEDS: IPRATROPIUM 0.5MG/ALBUTEROL 2.5MG INH SOL UD 3ML (DUONEB) NEB SCH ×4 (08:27→19:50)
[2021-11-06 12:00] VITALS: BP 145/59
[2021-11-06 16:00] VITALS: BP 120/60
[2021-11-06 20:00] VITALS: BP 144/86
[2021-11-06] MEDS: ATORVASTATIN 20 MG TAB PO SCH (20:01)
[2021-11-06] MEDS: DULoxetine 30MG CAPSULE (CYMBALTA) PO SCH (20:01)
[2021-11-06] MEDS: MIRTAZAPINE 15 MG TAB PO SCH (20:01)
[2021-11-07 04:00] VITALS: BP 146/80
[2021-11-07 04:49] LABS: BASO % 0.3 % (0.0-1.0); EOS # 0.4 10^3/uL (0.0-0.5); EOS % 2.7 % (0.0-3.0); HEMATOCRIT 33.8 % (42.0-52.0); HEMOGLOBIN 10.6 g/dl (13.5-17.5); LYMPH # 1.7 10^3/uL (1.5-5.0); LYMPH % 13.2 % (24.0-44.0); MEAN CORPUSCULAR HGB CONC 31.4 g/dl (32.0-36.5); MEAN CORPUSCULAR VOLUME 102.1 fl (80.0-96.0); MONO # 1.4 10^3/uL (0.0-0.8); MONO % 10.9 % (2.0-8.0); NEUTROPHILS # 9.3 10^3/uL (1.5-8.5); PLATELET COUNT, AUTOMATED 196 10^3/uL (150-450); RED BLOOD COUNT 3.31 10^6/uL (4.30-6.10); WHITE BLOOD COUNT 13.1 10^3/uL (4.0-10.0)
[2021-11-07 05:20] LABS: CALCIUM LEVEL 8.9 MG/DL (8.8-10.2); CREATININE FOR GFR 5.36 MG/DL (0.70-1.30); GLOMERULAR FILTRATION RATE 11.1 (>42); POTASSIUM SERUM 4.3 MEQ/L (3.5-5.1)
[2021-11-07] MEDS ORDERED: SODIUM CHLORIDE 0.9% 1000ML IV PRN (07:00)
[2021-11-07] MEDS ORDERED: LIDOCAINE 1% SDV 5ML VIAL SC PRN (07:00)
[2021-11-07] MEDS ORDERED: DARBEPOETIN 100 MCG/0.5 ML *DIALYSIS* SYRINGE (J0882) IV SCH (07:00)
[2021-11-07] MEDS: HumaLOG INSULIN (NovoLOG) PER UNIT SC SCH ×2 (07:30→13:35)
[2021-11-07] MEDS: IPRATROPIUM 0.5MG/ALBUTEROL 2.5MG INH SOL UD 3ML (DUONEB) NEB SCH ×3 (08:00→15:17)
[2021-11-07] MEDS: GABAPENTIN 100 MG CAP PO SCH (08:06)
[2021-11-07] MEDS: (RENVELA) SEVELAMER **CARBONate** 800 MG TAB PO SCH ×2 (08:06→13:43)
[2021-11-07] MEDS: CALCITRIOL 0.25 MCG CAP (S0169) PO SCH (08:07)
[2021-11-07] MEDS: HEPARIN SOD (PORCINE) 5000UNITS/ML 1ML VIAL/SYRINGE SQ SCH (08:07)
[2021-11-07] MEDS: MORPHINE 15 MG SA TAB PO SCH (08:10)
[2021-11-07 08:14] VITALS: BP 142/68
[2021-11-07] MEDS ORDERED: PANTOPRAZOLE 40MG TAB (PROTONIX) PO SCH (09:00)
[2021-11-07] MEDS ORDERED: GABA-1171 PO (09:44)
[2021-11-07] MEDS ORDERED: MORP15TA2 PO (09:45)
[2021-11-07] MEDS: CLOPIDOGREL 75 MG TAB PO SCH (13:42)
[2021-11-07] MEDS: LACTOBACILLUS ACIDOPHILUS CAP (BACID) PO SCH (13:43)
[2021-11-07] MEDS: VITAMIN D 1,000 INTERNATIONAL UNITS TABLET PO SCH (13:44)
[2021-11-07] MEDS: predniSONE 1 MG TAB PO SCH (13:45)
[2021-11-07] MEDS ORDERED: BACITRACIN OINTMENT 30GM TUBE TOP ONE (17:00)
== END 2021-11-07 16:30 | disposition home health service (06) | DRG 871 ==
LOC: EDBD 14:01 → M ED 14:01 → M ED INP 18:03 → M PCU 19:47
PROVIDERS: ADMIT Internal Medicine Pulmonary Disease; ATTEND Internal Medicine Nephrology
PROC: 0BH17EZ Insertion of Endotracheal Airway into Trachea, Via Natural or Artificial Opening (ICD-10-PCS; principal; 2021-10-29)
PROC: 02HV33Z Insertion of Infusion Device into Superior Vena Cava, Percutaneous Approach (ICD-10-PCS; 2021-10-29)
PROC: 5A1945Z Respiratory Ventilation, 24-96 Consecutive Hours (ICD-10-PCS; 2021-10-29)
PROC: 5A1D70Z Performance of Urinary Filtration, Intermittent, Less than 6 Hours Per Day (ICD-10-PCS; 2021-10-30)
DX: A41.9 Sepsis, unspecified organism (principal); N18.6 End stage renal disease; G93.41 Metabolic encephalopathy; J15.9 Unspecified bacterial pneumonia; J96.22 Acute and chronic respiratory failure with hypercapnia; R65.21 Severe sepsis with septic shock; I50.33 Acute on chronic diastolic (congestive) heart failure; N17.9 Acute kidney failure, unspecified; N25.81 Secondary hyperparathyroidism of renal origin; J44.0 Chronic obstructive pulmonary disease with (acute) lower respiratory infection; N39.0 Urinary tract infection, site not specified; E78.5 Hyperlipidemia, unspecified; K59.00 Constipation, unspecified; I25.10 Atherosclerotic heart disease of native coronary artery without angina pectoris; G47.33 Obstructive sleep apnea (adult) (pediatric); I87.2 Venous insufficiency (chronic) (peripheral); G89.29 Other chronic pain; E11.22 Type 2 diabetes mellitus with diabetic chronic kidney disease; E83.39 Other disorders of phosphorus metabolism; F32.A Depression, unspecified; I27.20 Pulmonary hypertension, unspecified; E11.51 Type 2 diabetes mellitus with diabetic peripheral angiopathy without gangrene; E11.40 Type 2 diabetes mellitus with diabetic neuropathy, unspecified; B95.2 Enterococcus as the cause of diseases classified elsewhere; Z95.3 Presence of xenogenic heart valve; Z99.2 Dependence on renal dialysis; Z96.642 Presence of left artificial hip joint; Z96.653 Presence of artificial knee joint, bilateral; Z98.41 Cataract extraction status, right eye; Z98.42 Cataract extraction status, left eye; Z95.1 Presence of aortocoronary bypass graft; Z79.02 Long term (current) use of antithrombotics/antiplatelets; Z79.52 Long term (current) use of systemic steroids; Z79.899 Other long term (current) drug therapy; Z88.0 Allergy status to penicillin; Z88.6 Allergy status to analgesic agent; Z88.1 Allergy status to other antibiotic agents; Z87.891 Personal history of nicotine dependence; Z20.822 Contact with and (suspected) exposure to COVID-19; Z79.891 Long term (current) use of opiate analgesic

== ENCOUNTER → 2021-10-29 | Outpatient (CLI) | payer MEDICARE, OTHER ==
[~2021-10-29] MED LIST changes: +D3 S1CAP3 PO
== END ==
LOC: M LABSMTC 09:45
PROVIDERS: ATTEND Anesthesiology
DX: Z01.818 Encounter for other preprocedural examination (principal); Z11.52 Encounter for screening for COVID-19

== ENCOUNTER 2021-11-13 15:37 | Observation (INO) | payer MEDICARE, OTHER ==
[~2021-11-13] VITALS: Ht 167.6 cm; Wt 81.9 kg
[~2021-11-13 15:37] MED LIST changes: +D3 S1CAP3 PO
[2021-11-13 17:13] LABS: HEMATOCRIT 32.3 % (42.0-52.0); HEMOGLOBIN 9.9 g/dl (13.5-17.5); MEAN CORPUSCULAR HEMOGLOBIN 31.8 pg (27.0-33.0); MEAN CORPUSCULAR HGB CONC 30.7 g/dl (32.0-36.5); MEAN CORPUSCULAR VOLUME 103.9 fl (80.0-96.0); PLATELET COUNT, AUTOMATED 204 10^3/uL (150-450); RED BLOOD COUNT 3.11 10^6/uL (4.30-6.10); WHITE BLOOD COUNT 10.4 10^3/uL (4.0-10.0)
[2021-11-13] MEDS ORDERED: HOME MED LIST COMPLETE! XX SCH (17:25)
[2021-11-13 17:27] LABS: ABG BASE EXCESS 3.1 (-2.0-2.0); ABG HCO3 30.7 MEQ/L (22.0-26.0); ABG O2 SATURATION 80.7 % (95.0-99.0); ABG TOTAL CO2 32.7 MEQ/L (23.0-31.0); ABG pH (ARTERIAL) 7.303 UNITS (7.350-7.450)
[2021-11-13 17:29] LABS: ABG PARTIAL PRESSURE CO2 63.4 mmHg (35.0-45.0); ABG PARTIAL PRESSURE O2 48.3 mmHg (75.0-100.0)
[2021-11-13 17:47] LABS: ALBUMIN 2.9 GM/DL (3.2-5.2); BILIRUBIN,DIRECT 0.2 MG/DL (0.0-0.2); BILIRUBIN,TOTAL 0.5 MG/DL (0.2-1.0); CALCIUM LEVEL 8.8 MG/DL (8.8-10.2); CREATININE FOR GFR 5.55 MG/DL (0.70-1.30); GLOMERULAR FILTRATION RATE 10.7 (>42); POTASSIUM SERUM 4.4 MEQ/L (3.5-5.1); TOTAL PROTEIN 7.1 GM/DL (6.4-8.2)
[2021-11-13 20:18] LABS: HEMOGLOBIN 10.6 g/dl (13.5-17.5); MEAN CORPUSCULAR HEMOGLOBIN 31.6 pg (27.0-33.0); MEAN CORPUSCULAR HGB CONC 30.3 g/dl (32.0-36.5); MEAN CORPUSCULAR VOLUME 104.5 fl (80.0-96.0); PLATELET COUNT, AUTOMATED 244 10^3/uL (150-450); RED BLOOD COUNT 3.35 10^6/uL (4.30-6.10); WHITE BLOOD COUNT 10.8 10^3/uL (4.0-10.0)
[2021-11-13 20:53] LABS: ALBUMIN 3.1 GM/DL (3.2-5.2); BILIRUBIN,TOTAL 0.5 MG/DL (0.2-1.0); CALCIUM LEVEL 9.1 MG/DL (8.8-10.2); CREATININE FOR GFR 5.66 MG/DL (0.70-1.30); GLOMERULAR FILTRATION RATE 10.4 (>42); POTASSIUM SERUM 5.1 MEQ/L (3.5-5.1); TOTAL PROTEIN 7.6 GM/DL (6.4-8.2)
[2021-11-13] MEDS ORDERED: GLUCAGON INJ 1MG VIAL SC PRN (21:00)
[2021-11-13] MEDS: GABAPENTIN 100 MG CAP PO SCH (21:00)
[2021-11-13] MEDS: ATORVASTATIN 20 MG TAB PO SCH (21:00)
[2021-11-13] MEDS: MIRTAZAPINE 15 MG TAB PO SCH (21:00)
[2021-11-13] MEDS: DULoxetine 30MG CAPSULE (CYMBALTA) PO SCH (21:00)
[2021-11-13] MEDS: LACTOBACILLUS ACIDOPHILUS CAP (BACID) PO SCH (21:00)
[2021-11-13] MEDS: HumaLOG INSULIN (NovoLOG) PER UNIT SC SCH (21:00)
[2021-11-13] MEDS ORDERED: GLUCOSE 4GM CHEW TABLET PO PRN (21:00)
[2021-11-13] MEDS ORDERED: DEXTROSE 50% 50 ML SYRINGE IV PRN (21:00)
[2021-11-13] MEDS: HEPARIN SOD (PORCINE) 5000UNITS/ML 1ML VIAL/SYRINGE SQ SCH (22:54)
[2021-11-13 23:00] VITALS: BP 131/64
[2021-11-14] MEDS ORDERED: ALBUTEROL 90 MCG/ACT 8GM HFA INHALER INH PRN (00:50)
[2021-11-14] MEDS ORDERED: ALBUTEROL SULFATE 2.5 MG/0.5 ML INH NEB SOLN INH PRN (00:50)
[2021-11-14] MEDS ORDERED: MORPHINE 30 MG TAB **MSIR PO PRN (00:50)
[2021-11-14] MEDS ORDERED: PILL CUTTER 1 EACH XX PRN (01:10)
[2021-11-14 04:00] VITALS: BP 167/88
[2021-11-14 05:38] LABS: BASO # 0.1 10^3/uL (0.0-0.2); BASO % 0.5 % (0.0-1.0); EOS # 0.3 10^3/uL (0.0-0.5); EOS % 3.1 % (0.0-3.0); HEMATOCRIT 32.5 % (42.0-52.0); HEMOGLOBIN 9.6 g/dl (13.5-17.5); LYMPH # 1.3 10^3/uL (1.5-5.0); LYMPH % 12.5 % (24.0-44.0); MEAN CORPUSCULAR HEMOGLOBIN 31.4 pg (27.0-33.0); MEAN CORPUSCULAR HGB CONC 29.5 g/dl (32.0-36.5); MEAN CORPUSCULAR VOLUME 106.2 fl (80.0-96.0); MONO # 1.2 10^3/uL (0.0-0.8); MONO % 11.7 % (2.0-8.0); NEUTROPHILS # 7.4 10^3/uL (1.5-8.5); NEUTROPHILS % 71.1 % (36.0-66.0); PLATELET COUNT, AUTOMATED 211 10^3/uL (150-450); RED BLOOD COUNT 3.06 10^6/uL (4.30-6.10); WHITE BLOOD COUNT 10.4 10^3/uL (4.0-10.0)
[2021-11-14 05:53] LABS: HEMOGLOBIN A1c 5.4 %
[2021-11-14 06:00] LABS: ALBUMIN 2.7 GM/DL (3.2-5.2); BILIRUBIN,TOTAL 0.4 MG/DL (0.2-1.0); CALCIUM LEVEL 8.4 MG/DL (8.8-10.2); CREATININE FOR GFR 6.44 MG/DL (0.70-1.30); MAGNESIUM LEVEL 2.1 MG/DL (1.8-2.4); POTASSIUM SERUM 4.5 MEQ/L (3.5-5.1); TOTAL PROTEIN 6.4 GM/DL (6.4-8.2)
[2021-11-14] MEDS ORDERED: CARV3.12 PO ×2 (06:31→06:32)
[2021-11-14] MEDS ORDERED: LIDOCAINE 1% SDV 5ML VIAL SC PRN (07:00)
[2021-11-14] MEDS ORDERED: SODIUM CHLORIDE 0.9% 1000ML IV PRN (07:00)
[2021-11-14] MEDS: HumaLOG INSULIN (NovoLOG) PER UNIT SC SCH ×4 (07:30→21:00)
[2021-11-14 08:00] VITALS: BP 164/80
[2021-11-14] MEDS: FAMOTIDINE 20 MG TAB PO SCH (08:55)
[2021-11-14] MEDS: DOCUSATE SODIUM 100MG CAPSULE PO SCH ×2 (08:55→21:00)
[2021-11-14] MEDS: GABAPENTIN 100 MG CAP PO SCH ×2 (08:55→21:00)
[2021-11-14] MEDS: MULTIVITAMINS/MINERALS THERAP 1 TAB PO SCH (08:55)
[2021-11-14] MEDS: CLOPIDOGREL 75 MG TAB PO SCH (08:55)
[2021-11-14] MEDS: (RENVELA) SEVELAMER **CARBONate** 800 MG TAB PO SCH ×3 (08:56→18:00)
[2021-11-14] MEDS: HEPARIN SOD (PORCINE) 5000UNITS/ML 1ML VIAL/SYRINGE SQ SCH ×2 (08:57→21:00)
[2021-11-14] MEDS: predniSONE 1 MG TAB PO SCH (08:57)
[2021-11-14] MEDS ORDERED: CALCITRIOL 0.25 MCG CAP (S0169) PO SCH (09:00)
[2021-11-14 12:00] VITALS: BP 160/80
[2021-11-14 12:42] LABS: ABG BASE EXCESS 0.7 (-2.0-2.0); ABG HCO3 28.5 MEQ/L (22.0-26.0); ABG STANDARD HCO3 24.8 MEQ/L (22.0-26.0); ABG TOTAL CO2 30.4 MEQ/L (23.0-31.0); ABG pH (ARTERIAL) 7.281 UNITS (7.350-7.450)
[2021-11-14 12:46] LABS: ABG PARTIAL PRESSURE CO2 61.8 mmHg (35.0-45.0)
[2021-11-14 12:47] LABS: ABG PARTIAL PRESSURE O2 46.9 mmHg (75.0-100.0)
[2021-11-14 16:41] VITALS: BP 131/60
[2021-11-14 18:11] LABS: ABG BASE EXCESS 3.2 (-2.0-2.0); ABG HCO3 29.9 MEQ/L (22.0-26.0); ABG O2 SATURATION 96.9 % (95.0-99.0); ABG PARTIAL PRESSURE CO2 56.2 mmHg (35.0-45.0); ABG PARTIAL PRESSURE O2 88.7 mmHg (75.0-100.0); ABG STANDARD HCO3 27.4 MEQ/L (22.0-26.0); ABG TOTAL CO2 31.6 MEQ/L (23.0-31.0); ABG pH (ARTERIAL) 7.344 UNITS (7.350-7.450)
[2021-11-14 20:00] VITALS: BP 159/64
[2021-11-14] MEDS: ATORVASTATIN 20 MG TAB PO SCH (21:00)
[2021-11-14] MEDS ORDERED: CARVedilol 3.125 MG TAB PO SCH (21:00)
[2021-11-14] MEDS: LACTOBACILLUS ACIDOPHILUS CAP (BACID) PO SCH (21:00)
[2021-11-14] MEDS: MIRTAZAPINE 15 MG TAB PO SCH (21:00)
[2021-11-14] MEDS: DULoxetine 30MG CAPSULE (CYMBALTA) PO SCH (21:00)
[2021-11-15 04:00] VITALS: BP 114/58
[2021-11-15 05:34] LABS: BASO % 0.5 % (0.0-1.0); EOS # 0.2 10^3/uL (0.0-0.5); EOS % 2.1 % (0.0-3.0); HEMATOCRIT 30.7 % (42.0-52.0); HEMOGLOBIN 9.4 g/dl (13.5-17.5); LYMPH # 1.1 10^3/uL (1.5-5.0); LYMPH % 13.2 % (24.0-44.0); MEAN CORPUSCULAR HEMOGLOBIN 31.6 pg (27.0-33.0); MEAN CORPUSCULAR HGB CONC 30.6 g/dl (32.0-36.5); MEAN CORPUSCULAR VOLUME 103.4 fl (80.0-96.0); MONO # 0.8 10^3/uL (0.0-0.8); MONO % 9.5 % (2.0-8.0); NEUTROPHILS # 5.8 10^3/uL (1.5-8.5); NEUTROPHILS % 73.4 % (36.0-66.0); PLATELET COUNT, AUTOMATED 228 10^3/uL (150-450); RED BLOOD COUNT 2.97 10^6/uL (4.30-6.10)
[2021-11-15 08:00] VITALS: BP 107/55
[2021-11-15] MEDS ORDERED: CARVedilol 3.125 MG TAB PO SCH (09:00)
[2021-11-15] MEDS: (RENVELA) SEVELAMER **CARBONate** 800 MG TAB PO SCH ×2 (09:16→12:25)
[2021-11-15] MEDS: GABAPENTIN 100 MG CAP PO SCH (09:16)
[2021-11-15] MEDS: FAMOTIDINE 20 MG TAB PO SCH (09:16)
[2021-11-15] MEDS: MULTIVITAMINS/MINERALS THERAP 1 TAB PO SCH (09:16)
[2021-11-15] MEDS: CLOPIDOGREL 75 MG TAB PO SCH (09:16)
[2021-11-15] MEDS: DOCUSATE SODIUM 100MG CAPSULE PO SCH (09:16)
[2021-11-15] MEDS: predniSONE 1 MG TAB PO SCH (09:17)
[2021-11-15] MEDS: HumaLOG INSULIN (NovoLOG) PER UNIT SC SCH ×2 (09:17→12:26)
[2021-11-15] MEDS: HEPARIN SOD (PORCINE) 5000UNITS/ML 1ML VIAL/SYRINGE SQ SCH (09:17)
[2021-11-15 12:00] VITALS: BP 107/52
== END 2021-11-15 13:15 | disposition home health service (06) ==
LOC: M ED 15:37 → M ED INP 15:38 → M PCU 22:35
PROVIDERS: ADMIT Internal Medicine; ATTEND Internal Medicine
DX: I50.30 Unspecified diastolic (congestive) heart failure (principal); N18.6 End stage renal disease; Z99.2 Dependence on renal dialysis; E87.70 Fluid overload, unspecified; J44.9 Chronic obstructive pulmonary disease, unspecified; J96.12 Chronic respiratory failure with hypercapnia; E11.42 Type 2 diabetes mellitus with diabetic polyneuropathy; I25.10 Atherosclerotic heart disease of native coronary artery without angina pectoris; Z95.1 Presence of aortocoronary bypass graft; Z95.2 Presence of prosthetic heart valve; F32.9 Major depressive disorder, single episode, unspecified; D63.1 Anemia in chronic kidney disease; N25.81 Secondary hyperparathyroidism of renal origin; G47.33 Obstructive sleep apnea (adult) (pediatric); K21.9 Gastro-esophageal reflux disease without esophagitis; E78.5 Hyperlipidemia, unspecified; Z96.82 Presence of neurostimulator; Z79.899 Other long term (current) drug therapy; Z79.51 Long term (current) use of inhaled steroids; Z79.52 Long term (current) use of systemic steroids; Z88.0 Allergy status to penicillin; Z88.1 Allergy status to other antibiotic agents; Z88.6 Allergy status to analgesic agent; Z87.891 Personal history of nicotine dependence
CPT/HCPCS: 36415; 36600; 71046; 80053; 82803; 83036; 83735; 83880; 84145; 85025; 85027; 87040; 87798; 93005; 93041; 93306; 96372; 99285; G0257; G0378; J1644; J7512

== ENCOUNTER → 2021-12-22 | Outpatient (CLI) | payer MEDICARE | LOC: M LABSMTC 10:10 | PROVIDERS: ATTEND Anesthesiology | DX: Z01.818 Encounter for other preprocedural examination (principal); Z11.52 Encounter for screening for COVID-19 ==

== ENCOUNTER → 2022-01-22 | Outpatient (REF) | payer MEDICARE, OTHER ==
[~2022-01-22] MED LIST changes: -D31000TA2 PO; +VITA100093 PO
== END ==
LOC: M SMT 17:47
PROVIDERS: ATTEND Urology
DX: C67.9 Malignant neoplasm of bladder, unspecified (principal)

== ENCOUNTER 2022-02-25 17:30 | Emergency (ER) | payer MEDICARE, OTHER ==
[~2022-02-25] VITALS: Ht 167.6 cm; Wt 81.8 kg
[2022-02-25 17:30] VITALS: BP 120/56
== END 2022-02-25 21:45 | disposition left against medical advice (07) ==
LOC: M ED 17:30
DX: Z53.21 Procedure and treatment not carried out due to patient leaving prior to being seen by health care provider (principal)

== ENCOUNTER → 2022-02-27 | Outpatient (CLI) | payer MEDICARE, OTHER | LOC: M RAD 08:18 | PROVIDERS: ATTEND Physician Assistant Surgical | DX: M25.412 Effusion, left shoulder (principal) ==

== ENCOUNTER 2022-03-03 10:28 | Emergency (ER) | payer MEDICARE, OTHER ==
[~2022-03-03] VITALS: Ht 167.6 cm; Wt 83.2 kg
[2022-03-03] MEDS ORDERED: LUBI24CA PO (10:48)
[2022-03-03] MEDS ORDERED: GABAPENTIN 300 MG CAP PO ONE (11:45)
[2022-03-03] MEDS ORDERED: HYDROCORTISONE 1% CREAM 30 GM TOP ONE (11:45)
[2022-03-03] MEDS ORDERED: PERCOCET 5MG/325MG TAB PO ONE (11:45)
[2022-03-03 12:21] LABS: BASO % 0.3 % (0.0-1.0); EOS # 0.3 10^3/uL (0.0-0.5); EOS % 4.2 % (0.0-3.0); HEMATOCRIT 35.3 % (42.0-52.0); HEMOGLOBIN 11.4 g/dl (13.5-17.5); LYMPH # 1.5 10^3/uL (1.5-5.0); LYMPH % 22.8 % (24.0-44.0); MEAN CORPUSCULAR HGB CONC 32.3 g/dl (32.0-36.5); MEAN CORPUSCULAR VOLUME 102.3 fl (80.0-96.0); MONO # 0.8 10^3/uL (0.0-0.8); NEUTROPHILS % 59.8 % (36.0-66.0); PLATELET COUNT, AUTOMATED 200 10^3/uL (150-450); RED BLOOD COUNT 3.45 10^6/uL (4.30-6.10); WHITE BLOOD COUNT 6.6 10^3/uL (4.0-10.0)
[2022-03-03 12:39] LABS: C REACTIVE PROTEIN QUANTITATIV 3.88 MG/DL (0.00-0.30); CREATININE FOR GFR 4.31 MG/DL (0.70-1.30); GLOMERULAR FILTRATION RATE 14.3 (>42); POTASSIUM SERUM 4.3 MEQ/L (3.5-5.1)
[2022-03-03 12:42] LABS: ERYTHROCYTE SEDIMENTATION RATE 75 mm/hr (0-20)
[2022-03-03] MEDS ORDERED: PERC5TAB12 PO (14:12)
[2022-03-03] MEDS ORDERED: NEUR300C PO (14:12)
[2022-03-03] MEDS ORDERED: HYDR1CRE30 TOP (14:12)
[2022-03-03 14:29] VITALS: BP 124/68
== END 2022-03-03 14:26 | disposition home or self-care (01) ==
LOC: M ED 10:28
DX: I70.213 Atherosclerosis of native arteries of extremities with intermittent claudication, bilateral legs (principal); M79.661 Pain in right lower leg; M79.662 Pain in left lower leg; R21 Rash and other nonspecific skin eruption; R22.43 Localized swelling, mass and lump, lower limb, bilateral; Z79.891 Long term (current) use of opiate analgesic; Z79.51 Long term (current) use of inhaled steroids; Z79.899 Other long term (current) drug therapy; Z88.0 Allergy status to penicillin; Z88.1 Allergy status to other antibiotic agents; Z88.6 Allergy status to analgesic agent

== ENCOUNTER → 2022-03-09 | Outpatient (CLI) | payer MEDICARE, OTHER ==
[~2022-03-09] MED LIST changes: +ACET650T61 PO; +BUME1TAB3 PO; +GABA-282 PO; +HYDR1CRE30 TOP; +LUBI24CA PO; +NEUR300C PO
== END ==
LOC: M SLEEP 20:00
PROVIDERS: ATTEND Internal Medicine Pulmonary Disease
DX: G47.33 Obstructive sleep apnea (adult) (pediatric) (principal)

== ENCOUNTER 2022-03-17 19:19 | Inpatient (IN) | payer MEDICARE, OTHER ==
[~2022-03-17] VITALS: Ht 167.6 cm; Wt 86.7 kg
[~2022-03-17 19:19] MED LIST changes: -ACET650T61 PO; -BUME1TAB3 PO; -GABA-282 PO
[2022-03-17 21:08] LABS: BASO % 0.3 % (0.0-1.0); EOS # 0.1 10^3/uL (0.0-0.5); EOS % 1.3 % (0.0-3.0); HEMATOCRIT 32.4 % (42.0-52.0); HEMOGLOBIN 10.3 g/dl (13.5-17.5); LYMPH % 12.7 % (24.0-44.0); MEAN CORPUSCULAR HEMOGLOBIN 32.7 pg (27.0-33.0); MEAN CORPUSCULAR HGB CONC 31.8 g/dl (32.0-36.5); MEAN CORPUSCULAR VOLUME 102.9 fl (80.0-96.0); MONO # 1.2 10^3/uL (0.0-0.8); MONO % 15.5 % (2.0-8.0); NEUTROPHILS # 5.2 10^3/uL (1.5-8.5); NEUTROPHILS % 69.5 % (36.0-66.0); PLATELET COUNT, AUTOMATED 150 10^3/uL (150-450); RED BLOOD COUNT 3.15 10^6/uL (4.30-6.10); WHITE BLOOD COUNT 7.5 10^3/uL (4.0-10.0)
[2022-03-17 21:25] LABS: INR 1.04
[2022-03-17 21:34] LABS: CK-MB VALUE MASS 2.5 NG/ML (<3.6); MB/CK RELATIVE INDEX 2.84 (< OR =4)
[2022-03-17 21:45] LABS: VENOUS BASE EXCESS 1.8 (-2.0-2.0); VENOUS HCO3 30.4 MEQ/L (23.0-27.0); VENOUS O2 SATURATION 83.6 % (60.0-80.0); VENOUS PARTIAL PRESSURE CO2 70.7 mmHg (38.0-50.0); VENOUS PARTIAL PRESSURE O2 55.1 mmHg (30.0-50.0); VENOUS PH 7.252 UNITS (7.330-7.430); VENOUS STANDARD HCO3 25.8 MEQ/L; VENOUS TOTAL CO2 32.6 MEQ/L (24.0-28.0)
[2022-03-17 22:34] LABS: ABG BASE EXCESS 0.9 (-2.0-2.0); ABG HCO3 29.4 MEQ/L (22.0-26.0); ABG O2 SATURATION 98.8 % (95.0-99.0); ABG PARTIAL PRESSURE O2 147.5 mmHg (75.0-100.0); ABG STANDARD HCO3 25.3 MEQ/L (22.0-26.0); ABG TOTAL CO2 31.5 MEQ/L (23.0-31.0)
[2022-03-17 22:36] LABS: ABG PARTIAL PRESSURE CO2 68.7 mmHg (35.0-45.0); ABG pH (ARTERIAL) 7.249 UNITS (7.350-7.450)
[2022-03-17 22:37] LABS: CK-MB VALUE MASS 2.4 NG/ML (<3.6); MB/CK RELATIVE INDEX 4.62 (< OR =4)
[2022-03-17] MEDS ORDERED: dexameTHASONE 20MG/5ML VIAL (J1100 PER 1MG) IV ONE (22:40)
[2022-03-17] MEDS ORDERED: LevoFLOXacin IV 750 MG in IV 1 EA IV ONE (22:50)
[2022-03-17] MEDS ORDERED: HALOPERIDOL 5MG/ML VIAL (J1630 PER 1) IV ONE (23:00)
[2022-03-17 23:05] LABS: ALBUMIN 3.2 GM/DL (3.2-5.2); BILIRUBIN,DIRECT 0.2 MG/DL (0.0-0.2); BILIRUBIN,TOTAL 0.6 MG/DL (0.2-1.0); CALCIUM LEVEL 8.5 MG/DL (8.8-10.2); CREATININE FOR GFR 8.24 MG/DL (0.70-1.30); GLOMERULAR FILTRATION RATE 6.8 (>42); POTASSIUM SERUM 5.7 MEQ/L (3.5-5.1); THYROID STIMULATING HORMONE 0.92 uIU/ML (0.358-3.740); TOTAL PROTEIN 7.3 GM/DL (6.4-8.2)
[2022-03-18] VITALS (38 sets, daily range): BP systolic 90–148; BP diastolic 43–65
[2022-03-18] MEDS ORDERED: MORP15TA2 PO (00:03)
[2022-03-18] MEDS ORDERED: GABA-282 PO (00:04)
[2022-03-18] MEDS ORDERED: ETOMIDATE INJ 20MG/10ML VIAL IV ONE (00:10)
[2022-03-18] MEDS ORDERED: propofoL 1,000 MG in IV 1 EA IV SCH (00:10)
[2022-03-18] MEDS ORDERED: ROCURONIUM BROMIDE 50 MG/5 ML VIAL IV ONE (00:10)
[2022-03-18 00:55] LABS: ABG BASE EXCESS 0.1 (-2.0-2.0); ABG HCO3 26.7 MEQ/L (22.0-26.0); ABG O2 SATURATION 97.5 % (95.0-99.0); ABG PARTIAL PRESSURE CO2 52.4 mmHg (35.0-45.0); ABG PARTIAL PRESSURE O2 104.5 mmHg (75.0-100.0); ABG STANDARD HCO3 24.6 MEQ/L (22.0-26.0); ABG TOTAL CO2 28.3 MEQ/L (23.0-31.0); ABG pH (ARTERIAL) 7.325 UNITS (7.350-7.450)
[2022-03-18] MEDS ORDERED: MIDAZOLAM HCL 100 MG in D5W 80 ML IV SCH (01:25)
[2022-03-18] MEDS ORDERED: REFRIGERATOR IV KEYS XX PRN (01:25)
[2022-03-18] MEDS ORDERED: MIDAZOLAM INJ 2MG/2ML VIAL (J2250 PER 1MG) IV ONE (01:25)
[2022-03-18] MEDS ORDERED: COMBIVENT RESPIMAT 100-20MCG INHALER 4GM INH SCH (01:30)
[2022-03-18] MEDS ORDERED: LevoFLOXacin IV 500 MG in IV 1 EA IV ONE (01:35)
[2022-03-18] MEDS ORDERED: ISOVUE-370 76% 100ML VIAL As Ordered ONE (01:37)
[2022-03-18 02:12] LABS: APPEARANCE, URINE HAZY (CLEAR); BACTERIA, URINE AUTO NEGATIVE (NEGATIVE); BILIRUBIN, URINE AUTO NEGATIVE (NEGATIVE); BLOOD, URINE BLOOD 1+ (NEGATIVE); COLOR, URINE AMBER (YELLOW); GLUCOSE, URINE (UA) AUTO NEGATIVE (NEGATIVE); KETONE, URINE AUTO NEGATIVE (NEGATIVE); LEUKOCYTE ESTERASE, URINE AUTO 3+ (NEGATIVE); NITRITE, URINE AUTO NEGATIVE (NEGATIVE); PROTEIN, URINE AUTO 2+ mg/dL (NEGATIVE); RBC, URINE AUTO 19 /HPF (0-3); SPECIFIC GRAVITY URINE AUTO 1.012 (1.002-1.035); SQUAMOUS EPITHELIAL CELL UR AU 0 /HPF (0-6); TRANSITIONAL EPITHELIAL AUTO <1 /HPF; UROBILINOGEN, URINE AUTO 0.2 mg/dL (0.0-2.0); WBC, URINE AUTO 110 /HPF (0-3)
[2022-03-18] MEDS: propofoL 1,000 MG in IV 1 EA IV SCH ×3 (05:14→21:20)
[2022-03-18] MEDS: HEPARIN SOD (PORCINE) 5000UNITS/ML 1ML VIAL/SYRINGE SC SCH ×3 (05:29→21:19)
[2022-03-18 05:47] LABS: BASO % 0.1 % (0.0-1.0); EOS % 0.4 % (0.0-3.0); HEMATOCRIT 29.8 % (42.0-52.0); HEMOGLOBIN 9.2 g/dl (13.5-17.5); LYMPH # 0.9 10^3/uL (1.5-5.0); LYMPH % 12.2 % (24.0-44.0); MEAN CORPUSCULAR HEMOGLOBIN 32.5 pg (27.0-33.0); MEAN CORPUSCULAR HGB CONC 30.9 g/dl (32.0-36.5); MEAN CORPUSCULAR VOLUME 105.3 fl (80.0-96.0); MONO # 1.3 10^3/uL (0.0-0.8); MONO % 17.7 % (2.0-8.0); NEUTROPHILS % 68.8 % (36.0-66.0); PLATELET COUNT, AUTOMATED 130 10^3/uL (150-450); RED BLOOD COUNT 2.83 10^6/uL (4.30-6.10); WHITE BLOOD COUNT 7.3 10^3/uL (4.0-10.0)
[2022-03-18 05:58] LABS: INR 1.13; PROTHROMBIN TIME 14.9 SECONDS (12.7-14.5)
[2022-03-18 05:59] LABS: PARTIAL THROMBOPLASTIN TIME 37.1 SECONDS (25.9-37.0)
[2022-03-18] MEDS ORDERED: ACETAMINOPHEN SUSP DYE FREE 160 MG/5 ML UDC PO PRN (06:00)
[2022-03-18 06:01] LABS: D-DIMER QUANT 1864.21 ng/ml (<500)
[2022-03-18 06:17] LABS: CALCIUM LEVEL 8.2 MG/DL (8.8-10.2); CREATININE FOR GFR 8.81 MG/DL (0.70-1.30); GLOMERULAR FILTRATION RATE 6.3 (>42); POTASSIUM SERUM 6.1 MEQ/L (3.5-5.1)
[2022-03-18] MEDS ORDERED: HumuLIN R (REGULAR) INSULIN (NovoLIN R) **100U/ML** PER UNIT IV STA (06:29)
[2022-03-18] MEDS ORDERED: DEXTROSE 50% 50 ML SYRINGE IV STA (06:29)
[2022-03-18 06:39] LABS: ALBUMIN 2.9 GM/DL (3.2-5.2); BILIRUBIN,DIRECT 0.3 MG/DL (0.0-0.2); BILIRUBIN,TOTAL 0.7 MG/DL (0.2-1.0); C REACTIVE PROTEIN QUANTITATIV 3.76 MG/DL (0.00-0.30); CALCIUM LEVEL 8.3 MG/DL (8.8-10.2); CREATININE FOR GFR 8.54 MG/DL (0.70-1.30); GLOMERULAR FILTRATION RATE 6.5 (>42); POTASSIUM SERUM 6.3 MEQ/L (3.5-5.1); TOTAL PROTEIN 6.5 GM/DL (6.4-8.2)
[2022-03-18] MEDS ORDERED: LIDOCAINE 1% SDV 5ML VIAL SC PRN (07:15)
[2022-03-18] MEDS ORDERED: SODIUM CHLORIDE 0.9% 1000ML IV PRN (07:15)
[2022-03-18] MEDS ORDERED: ALPR0.25 PO (08:24)
[2022-03-18] MEDS ORDERED: ACET650T61 PO (08:24)
[2022-03-18] MEDS ORDERED: BUME1TAB3 PO (08:24)
[2022-03-18] MEDS ORDERED: PROAAER10 INH (08:24)
[2022-03-18] MEDS ORDERED: HYDR-643 PO (08:24)
[2022-03-18] MEDS ORDERED: ALB2.5NEB INH (08:24)
[2022-03-18] MEDS ORDERED: HOME MED LIST COMPLETE! XX SCH (08:25)
[2022-03-18] MEDS: CHLORHEXIDINE GLUCONATE 0.12 % 15ML UDC (PERIDEX ORAL RINSE) MT SCH ×2 (08:25→21:19)
[2022-03-18] MEDS: CLOPIDOGREL 75 MG TAB PO SCH (08:27)
[2022-03-18] MEDS: dexameTHASONE 4 MG/ML 1ML VIAL (J1100 PER 1MG) IV SCH (08:29)
[2022-03-18] MEDS: PANTOPRAZOLE 40MG VIAL IV SCH (08:29)
[2022-03-18] MEDS: IPRATROPIUM 0.5MG/ALBUTEROL 2.5MG INH SOL UD 3ML (DUONEB) INH SCH ×3 (08:33→19:52)
[2022-03-18] MEDS ORDERED: ACETAMINOPHEN 325 MG/10.15 ML UDC PO PRN (08:40)
[2022-03-18] MEDS ORDERED: DEXTROSE 50% 50 ML SYRINGE IV PRN (09:45)
[2022-03-18] MEDS ORDERED: GLUCOSE 4GM CHEW TABLET PO PRN (09:45)
[2022-03-18] MEDS ORDERED: GLUCAGON INJ 1MG VIAL SC PRN (09:45)
[2022-03-18] MEDS: MIDAZOLAM INJ 2MG/2ML VIAL (J2250 PER 1MG) IV PRN ×2 (10:20→13:57)
[2022-03-18] MEDS ORDERED: fentaNYL 100 MCG/2 ML INJECTION IV PRN (10:45)
[2022-03-18] MEDS ORDERED: diphenhydrAMINE 50MG/ML VIAL (J1200) IV PRN (11:20)
[2022-03-18] MEDS: cefTRIAXone SOD 1 GM in D5W MINI-BAG PLUS 50 ML IV SCH (12:34)
[2022-03-18 13:10] LABS: CALCIUM LEVEL 8.3 MG/DL (8.8-10.2); CREATININE FOR GFR 9.45 MG/DL (0.70-1.30); GLOMERULAR FILTRATION RATE 5.8 (>42); POTASSIUM SERUM 5.7 MEQ/L (3.5-5.1)
[2022-03-18] MEDS: DOXYCYCLINE HYCLATE 100 MG in D5W MINI-BAG PLUS 100 ML IV SCH (13:10)
[2022-03-18] MEDS ORDERED: NOREPINEPHRINE BITARTRATE 8 MG in D5W 492 ML IV SCH (16:00)
[2022-03-18] MEDS: NOREPINEPHRINE BITARTRATE 8 MG in D5W 492 ML IV SCH (17:23)
[2022-03-18 18:34] LABS: CALCIUM LEVEL 8.6 MG/DL (8.8-10.2); CREATININE FOR GFR 5.44 MG/DL (0.70-1.30); GLOMERULAR FILTRATION RATE 10.9 (>42)
[2022-03-19] VITALS (72 sets, daily range): BP systolic 76–138; BP diastolic 46–65
[2022-03-19] MEDS: DOXYCYCLINE HYCLATE 100 MG in D5W MINI-BAG PLUS 100 ML IV SCH ×2 (00:45→13:59)
[2022-03-19] MEDS: IPRATROPIUM 0.5MG/ALBUTEROL 2.5MG INH SOL UD 3ML (DUONEB) INH SCH ×4 (01:28→19:55)
[2022-03-19] MEDS: propofoL 1,000 MG in IV 1 EA IV SCH ×6 (02:58→22:53)
[2022-03-19] MEDS: HEPARIN SOD (PORCINE) 5000UNITS/ML 1ML VIAL/SYRINGE SC SCH ×3 (05:41→21:13)
[2022-03-19 06:05] LABS: ABG BASE EXCESS -0.5 (-2.0-2.0); ABG HCO3 24.9 MEQ/L (22.0-26.0); ABG O2 SATURATION 95.5 % (95.0-99.0); ABG PARTIAL PRESSURE CO2 44.1 mmHg (35.0-45.0); ABG PARTIAL PRESSURE O2 80.3 mmHg (75.0-100.0); ABG STANDARD HCO3 24.1 MEQ/L (22.0-26.0); ABG TOTAL CO2 26.3 MEQ/L (23.0-31.0)
[2022-03-19 06:32] LABS: CALCIUM LEVEL 8.3 MG/DL (8.8-10.2); CREATININE FOR GFR 5.3 MG/DL (0.70-1.30); GLOMERULAR FILTRATION RATE 11.3 (>42); MAGNESIUM LEVEL 2.1 MG/DL (1.8-2.4)
[2022-03-19 07:32] LABS: BASO % 0.2 % (0.0-1.0); HEMATOCRIT 30.9 % (42.0-52.0); HEMOGLOBIN 9.8 g/dl (13.5-17.5); LYMPH # 0.8 10^3/uL (1.5-5.0); LYMPH % 11.7 % (24.0-44.0); MEAN CORPUSCULAR HEMOGLOBIN 32.1 pg (27.0-33.0); MEAN CORPUSCULAR HGB CONC 31.7 g/dl (32.0-36.5); MEAN CORPUSCULAR VOLUME 101.3 fl (80.0-96.0); MONO # 0.8 10^3/uL (0.0-0.8); MONO % 12.3 % (2.0-8.0); NEUTROPHILS # 4.8 10^3/uL (1.5-8.5); NEUTROPHILS % 75.2 % (36.0-66.0); PLATELET COUNT, AUTOMATED 168 10^3/uL (150-450); RED BLOOD COUNT 3.05 10^6/uL (4.30-6.10); WHITE BLOOD COUNT 6.4 10^3/uL (4.0-10.0)
[2022-03-19] MEDS ORDERED: LIDOCAINE 1% SDV 5ML VIAL SC PRN (07:40)
[2022-03-19] MEDS ORDERED: SODIUM CHLORIDE 0.9% 1000ML IV PRN (07:40)
[2022-03-19] MEDS: CHLORHEXIDINE GLUCONATE 0.12 % 15ML UDC (PERIDEX ORAL RINSE) MT SCH ×2 (08:36→21:13)
[2022-03-19] MEDS: dexameTHASONE 4 MG/ML 1ML VIAL (J1100 PER 1MG) IV SCH (08:37)
[2022-03-19] MEDS: CLOPIDOGREL 75 MG TAB PO SCH (08:37)
[2022-03-19] MEDS: PANTOPRAZOLE 40MG VIAL IV SCH (08:37)
[2022-03-19] MEDS: NOREPINEPHRINE BITARTRATE 8 MG in D5W 492 ML IV SCH ×2 (08:51→17:27)
[2022-03-19] MEDS: cefTRIAXone SOD 1 GM in D5W MINI-BAG PLUS 50 ML IV SCH (12:20)
[2022-03-20] VITALS (38 sets, daily range): BP systolic 77–149; BP diastolic 39–80; O2SAT 99
[2022-03-20] MEDS: DOXYCYCLINE HYCLATE 100 MG in D5W MINI-BAG PLUS 100 ML IV SCH ×2 (00:37→12:29)
[2022-03-20] MEDS: IPRATROPIUM 0.5MG/ALBUTEROL 2.5MG INH SOL UD 3ML (DUONEB) INH SCH ×4 (01:25→19:20)
[2022-03-20 04:24] LABS: HEMATOCRIT 28.4 % (42.0-52.0); HEMOGLOBIN 9.4 g/dl (13.5-17.5); LYMPH # 0.8 10^3/uL (1.5-5.0); LYMPH % 9.7 % (24.0-44.0); MEAN CORPUSCULAR HEMOGLOBIN 32.9 pg (27.0-33.0); MEAN CORPUSCULAR HGB CONC 33.1 g/dl (32.0-36.5); MEAN CORPUSCULAR VOLUME 99.3 fl (80.0-96.0); MONO # 0.7 10^3/uL (0.0-0.8); MONO % 9.4 % (2.0-8.0); NEUTROPHILS # 6.3 10^3/uL (1.5-8.5); NEUTROPHILS % 80.4 % (36.0-66.0); PLATELET COUNT, AUTOMATED 154 10^3/uL (150-450); RED BLOOD COUNT 2.86 10^6/uL (4.30-6.10); WHITE BLOOD COUNT 7.9 10^3/uL (4.0-10.0)
[2022-03-20 04:34] LABS: INR 0.97; PROTHROMBIN TIME 13.3 SECONDS (12.7-14.5)
[2022-03-20 04:35] LABS: PARTIAL THROMBOPLASTIN TIME 39.4 SECONDS (25.9-37.0)
[2022-03-20 05:08] LABS: ALBUMIN 2.8 GM/DL (3.2-5.2); BILIRUBIN,DIRECT 0.2 MG/DL (0.0-0.2); BILIRUBIN,TOTAL 0.5 MG/DL (0.2-1.0); CALCIUM LEVEL 7.8 MG/DL (8.8-10.2); CREATININE FOR GFR 4.82 MG/DL (0.70-1.30); GLOMERULAR FILTRATION RATE 12.6 (>42); MAGNESIUM LEVEL 1.8 MG/DL (1.8-2.4); POTASSIUM SERUM 3.5 MEQ/L (3.5-5.1); TOTAL PROTEIN 5.9 GM/DL (6.4-8.2)
[2022-03-20] MEDS: HEPARIN SOD (PORCINE) 5000UNITS/ML 1ML VIAL/SYRINGE SC SCH ×3 (05:38→21:15)
[2022-03-20 06:11] LABS: ABG BASE EXCESS 1.8 (-2.0-2.0); ABG HCO3 25.9 MEQ/L (22.0-26.0); ABG O2 SATURATION 91.8 % (95.0-99.0); ABG PARTIAL PRESSURE CO2 38.8 mmHg (35.0-45.0); ABG PARTIAL PRESSURE O2 64.3 mmHg (75.0-100.0); ABG TOTAL CO2 27.1 MEQ/L (23.0-31.0); ABG pH (ARTERIAL) 7.443 UNITS (7.350-7.450)
[2022-03-20] MEDS: MIDAZOLAM INJ 2MG/2ML VIAL (J2250 PER 1MG) IV PRN (06:35)
[2022-03-20] MEDS: propofoL 1,000 MG in IV 1 EA IV SCH (06:58)
[2022-03-20] MEDS: CLOPIDOGREL 75 MG TAB PO SCH (08:20)
[2022-03-20] MEDS: dexameTHASONE 4 MG/ML 1ML VIAL (J1100 PER 1MG) IV SCH (08:20)
[2022-03-20] MEDS: CHLORHEXIDINE GLUCONATE 0.12 % 15ML UDC (PERIDEX ORAL RINSE) MT SCH ×2 (08:20→21:15)
[2022-03-20] MEDS: PANTOPRAZOLE 40MG VIAL IV SCH (08:20)
[2022-03-20] MEDS: cefTRIAXone SOD 1 GM in D5W MINI-BAG PLUS 50 ML IV SCH (11:18)
[2022-03-20 18:07] LABS: BODY FLUID CULTURE Not indicated. (.); LEGIONELLA ANTIGEN URINE Negative (Negative); ORGANISM ID Not indicated. (.); SPECIMEN SOURCE Urine (.); URINE STREP PNEUMONIAE ANTIGEN Negative (Negative)
[2022-03-20] MEDS ORDERED: traMADol 50 MG TAB PO ONE (22:20)
[2022-03-21] VITALS (12 sets, daily range): BP systolic 94–161; BP diastolic 46–69
[2022-03-21] MEDS: DOXYCYCLINE HYCLATE 100 MG in D5W MINI-BAG PLUS 100 ML IV SCH (00:24)
[2022-03-21] MEDS: IPRATROPIUM 0.5MG/ALBUTEROL 2.5MG INH SOL UD 3ML (DUONEB) INH SCH ×4 (00:25→21:38)
[2022-03-21] MEDS: HEPARIN SOD (PORCINE) 5000UNITS/ML 1ML VIAL/SYRINGE SQ SCH ×3 (05:34→21:35)
[2022-03-21] MEDS ORDERED: SODIUM CHLORIDE 0.9% 1000ML IV PRN (05:45)
[2022-03-21] MEDS ORDERED: LIDOCAINE 1% SDV 5ML VIAL SC PRN (05:45)
[2022-03-21 06:09] LABS: BASO % 0.2 % (0.0-1.0); EOS % 0.2 % (0.0-3.0); HEMATOCRIT 29.3 % (42.0-52.0); HEMOGLOBIN 9.5 g/dl (13.5-17.5); LYMPH # 1.1 10^3/uL (1.5-5.0); LYMPH % 19.1 % (24.0-44.0); MEAN CORPUSCULAR HEMOGLOBIN 32.1 pg (27.0-33.0); MEAN CORPUSCULAR HGB CONC 32.4 g/dl (32.0-36.5); MONO # 0.6 10^3/uL (0.0-0.8); MONO % 10.7 % (2.0-8.0); NEUTROPHILS # 4.1 10^3/uL (1.5-8.5); NEUTROPHILS % 68.6 % (36.0-66.0); PLATELET COUNT, AUTOMATED 134 10^3/uL (150-450); RED BLOOD COUNT 2.96 10^6/uL (4.30-6.10)
[2022-03-21 06:32] LABS: CALCIUM LEVEL 8.4 MG/DL (8.8-10.2); CREATININE FOR GFR 6.2 MG/DL (0.70-1.30); GLOMERULAR FILTRATION RATE 9.4 (>42); MAGNESIUM LEVEL 2.1 MG/DL (1.8-2.4); POTASSIUM SERUM 4.6 MEQ/L (3.5-5.1)
[2022-03-21] MEDS: dexameTHASONE 4 MG/ML 1ML VIAL (J1100 PER 1MG) IV SCH (08:34)
[2022-03-21] MEDS: CLOPIDOGREL 75 MG TAB PO SCH (08:34)
[2022-03-21] MEDS: PANTOPRAZOLE 40MG VIAL IV SCH (08:34)
[2022-03-21 12:02] LABS: HEMOGLOBIN A1c 5.3 %
[2022-03-21] MEDS: MOXIFLOXACIN 400 MG TAB PO SCH (16:45)
[2022-03-21] MEDS ORDERED: SODIUM CHLORIDE 0.9% INJ 10 ML SYR IV PRN (20:40)
[2022-03-21] MEDS: SODIUM CHLORIDE 0.9% INJ 10 ML SYR IV SCH (21:36)
[2022-03-21] MEDS: ANUSOL HC 25MG SUPP PR SCH (21:36)
[2022-03-22] MEDS: ANUSOL HC CREAM 30GM TOP SCH ×3 (01:11→22:08)
[2022-03-22] MEDS: IPRATROPIUM 0.5MG/ALBUTEROL 2.5MG INH SOL UD 3ML (DUONEB) INH SCH ×4 (02:41→20:22)
[2022-03-22 04:00] VITALS: BP 153/70
[2022-03-22] MEDS ORDERED: DARBEPOETIN 100 MCG/0.5 ML *DIALYSIS* SYRINGE (J0882) IV SCH (05:35)
[2022-03-22] MEDS ORDERED: SODIUM CHLORIDE 0.9% 1000ML IV PRN (05:35)
[2022-03-22] MEDS ORDERED: LIDOCAINE 1% SDV 5ML VIAL SC PRN (05:35)
[2022-03-22] MEDS: ANUSOL HC 25MG SUPP PR SCH ×3 (06:15→22:09)
[2022-03-22] MEDS: MOXIFLOXACIN 400 MG TAB PO SCH (06:15)
[2022-03-22] MEDS: HEPARIN SOD (PORCINE) 5000UNITS/ML 1ML VIAL/SYRINGE SQ SCH ×3 (06:15→22:09)
[2022-03-22] MEDS: SODIUM CHLORIDE 0.9% INJ 10 ML SYR IV SCH ×3 (06:17→22:10)
[2022-03-22 07:33] LABS: BASO % 0.3 % (0.0-1.0); EOS % 0.3 % (0.0-3.0); HEMATOCRIT 29.5 % (42.0-52.0); HEMOGLOBIN 9.7 g/dl (13.5-17.5); LYMPH # 1.2 10^3/uL (1.5-5.0); LYMPH % 18.4 % (24.0-44.0); MEAN CORPUSCULAR HEMOGLOBIN 32.8 pg (27.0-33.0); MEAN CORPUSCULAR HGB CONC 32.9 g/dl (32.0-36.5); MEAN CORPUSCULAR VOLUME 99.7 fl (80.0-96.0); MONO # 0.7 10^3/uL (0.0-0.8); MONO % 10.2 % (2.0-8.0); NEUTROPHILS # 4.4 10^3/uL (1.5-8.5); NEUTROPHILS % 68.3 % (36.0-66.0); PLATELET COUNT, AUTOMATED 155 10^3/uL (150-450); RED BLOOD COUNT 2.96 10^6/uL (4.30-6.10); WHITE BLOOD COUNT 6.5 10^3/uL (4.0-10.0)
[2022-03-22 07:52] LABS: ALBUMIN 3.3 GM/DL (3.2-5.2); BILIRUBIN,DIRECT 0.3 MG/DL (0.0-0.2); BILIRUBIN,TOTAL 0.6 MG/DL (0.2-1.0); CALCIUM LEVEL 7.5 MG/DL (8.8-10.2); CREATININE FOR GFR 7.83 MG/DL (0.70-1.30); GLOMERULAR FILTRATION RATE 7.2 (>42); INR 1.02; MAGNESIUM LEVEL 1.9 MG/DL (1.8-2.4); POTASSIUM SERUM 4.7 MEQ/L (3.5-5.1); PROTHROMBIN TIME 13.8 SECONDS (12.7-14.5); TOTAL PROTEIN 6.6 GM/DL (6.4-8.2)
[2022-03-22 07:53] LABS: PARTIAL THROMBOPLASTIN TIME 36.4 SECONDS (25.9-37.0)
[2022-03-22] MEDS: dexameTHASONE 4 MG/ML 1ML VIAL (J1100 PER 1MG) IV SCH (10:00)
[2022-03-22] MEDS: PANTOPRAZOLE 40MG TAB (PROTONIX) PO SCH (10:00)
[2022-03-22] MEDS: CLOPIDOGREL 75 MG TAB PO SCH (10:00)
[2022-03-22 10:20] VITALS: BP 99/45
[2022-03-22 20:00] VITALS: BP 127/64
[2022-03-23] MEDS: IPRATROPIUM 0.5MG/ALBUTEROL 2.5MG INH SOL UD 3ML (DUONEB) INH SCH ×2 (01:02→07:24)
[2022-03-23 06:00] VITALS: BP 132/62
[2022-03-23] MEDS: ANUSOL HC 25MG SUPP PR SCH (06:26)
[2022-03-23] MEDS: MOXIFLOXACIN 400 MG TAB PO SCH (06:26)
[2022-03-23] MEDS: HEPARIN SOD (PORCINE) 5000UNITS/ML 1ML VIAL/SYRINGE SQ SCH (06:27)
[2022-03-23] MEDS: SODIUM CHLORIDE 0.9% INJ 10 ML SYR IV SCH (06:28)
[2022-03-23] MEDS ORDERED: MOXI400T11 PO (07:25)
[2022-03-23] MEDS ORDERED: PRED10PA2 PO (07:25)
[2022-03-23] MEDS ORDERED: PROC1CRE5 TOP (07:25)
[2022-03-23] MEDS ORDERED: ANUSHCSU PR (07:25)
[2022-03-23 07:29] LABS: HEMATOCRIT 33.1 % (42.0-52.0); HEMOGLOBIN 10.7 g/dl (13.5-17.5); MEAN CORPUSCULAR HEMOGLOBIN 31.6 pg (27.0-33.0); MEAN CORPUSCULAR HGB CONC 32.3 g/dl (32.0-36.5); MEAN CORPUSCULAR VOLUME 97.6 fl (80.0-96.0); PLATELET COUNT, AUTOMATED 174 10^3/uL (150-450); RED BLOOD COUNT 3.39 10^6/uL (4.30-6.10); WHITE BLOOD COUNT 10.1 10^3/uL (4.0-10.0)
[2022-03-23] MEDS: dexameTHASONE 4 MG/ML 1ML VIAL (J1100 PER 1MG) IV SCH (09:23)
[2022-03-23] MEDS: CLOPIDOGREL 75 MG TAB PO SCH (09:23)
[2022-03-23] MEDS: ANUSOL HC CREAM 30GM TOP SCH (09:24)
[2022-03-23] MEDS: PANTOPRAZOLE 40MG TAB (PROTONIX) PO SCH (09:24)
== END 2022-03-23 11:30 | disposition home health service (06) | DRG 871 ==
LOC: M ED 19:19 → M ED INP 03-18 01:09 → ENRESERV 03-18 02:49 → M ICU 03-18 04:01 → M 4MAIN 03-21 10:05
PROVIDERS: ADMIT Internal Medicine; ATTEND General Practice
PROC: 0BH17EZ Insertion of Endotracheal Airway into Trachea, Via Natural or Artificial Opening (ICD-10-PCS; principal; 2022-03-18)
PROC: 3E0333Z Introduction of Anti-inflammatory into Peripheral Vein, Percutaneous Approach (ICD-10-PCS; 2022-03-18)
PROC: 02HV33Z Insertion of Infusion Device into Superior Vena Cava, Percutaneous Approach (ICD-10-PCS; 2022-03-18)
PROC: 5A1D70Z Performance of Urinary Filtration, Intermittent, Less than 6 Hours Per Day (ICD-10-PCS; 2022-03-18)
PROC: 5A1945Z Respiratory Ventilation, 24-96 Consecutive Hours (ICD-10-PCS; 2022-03-18)
DX: A41.9 Sepsis, unspecified organism (principal); N18.6 End stage renal disease; J96.22 Acute and chronic respiratory failure with hypercapnia; J96.01 Acute respiratory failure with hypoxia; U07.1 COVID-19; J15.9 Unspecified bacterial pneumonia; I50.33 Acute on chronic diastolic (congestive) heart failure; N25.81 Secondary hyperparathyroidism of renal origin; I25.10 Atherosclerotic heart disease of native coronary artery without angina pectoris; J44.9 Chronic obstructive pulmonary disease, unspecified; E87.5 Hyperkalemia; I48.91 Unspecified atrial fibrillation; G47.33 Obstructive sleep apnea (adult) (pediatric); E11.22 Type 2 diabetes mellitus with diabetic chronic kidney disease; E11.42 Type 2 diabetes mellitus with diabetic polyneuropathy; D63.1 Anemia in chronic kidney disease; K64.8 Other hemorrhoids; F32.A Depression, unspecified; Z99.2 Dependence on renal dialysis; Z79.02 Long term (current) use of antithrombotics/antiplatelets; Z79.899 Other long term (current) drug therapy; Z88.0 Allergy status to penicillin; Z88.1 Allergy status to other antibiotic agents; Z88.6 Allergy status to analgesic agent; Z95.1 Presence of aortocoronary bypass graft; Z87.891 Personal history of nicotine dependence; Z95.3 Presence of xenogenic heart valve

== ENCOUNTER → 2022-04-11 | Outpatient (CLI) | payer MEDICARE, OTHER ==
[~2022-04-11] MED LIST changes: +ACET650T61 PO; +ALBU2.5V10 INH; -ALBU83IN INH; +ANUSHCSU PR; +BUME1TAB3 PO; +GABA-282 PO; +MOXI400T11 PO; +PRED10PA2 PO; +PROC1CRE5 TOP
== END ==
LOC: M PLALAB 11:43
PROVIDERS: ATTEND Internal Medicine
DX: J12.82 Pneumonia due to coronavirus disease 2019 (principal); I50.9 Heart failure, unspecified

== ENCOUNTER → 2022-04-11 | Outpatient (CLI) | payer MEDICARE, OTHER | LOC: M LABSMTC 09:23 | PROVIDERS: ATTEND Anesthesiology | DX: Z01.818 Encounter for other preprocedural examination (principal); Z11.52 Encounter for screening for COVID-19 ==

== ENCOUNTER 2022-04-15 10:38 | Inpatient (IN) | payer MEDICARE, OTHER ==
[2022-04-15] VITALS (47 sets, daily range): BP systolic 81–224; BP diastolic 47–99
[~2022-04-15] VITALS: Ht 167.6 cm; Wt 83.0 kg
[2022-04-15 11:58] LABS: BASO % 0.2 % (0.0-1.0); EOS % 0.3 % (0.0-3.0); HEMATOCRIT 36.5 % (42.0-52.0); HEMOGLOBIN 11.1 g/dl (13.5-17.5); LYMPH # 1.2 10^3/uL (1.5-5.0); MEAN CORPUSCULAR HEMOGLOBIN 32.2 pg (27.0-33.0); MEAN CORPUSCULAR HGB CONC 30.4 g/dl (32.0-36.5); MEAN CORPUSCULAR VOLUME 105.8 fl (80.0-96.0); MONO # 1.3 10^3/uL (0.0-0.8); MONO % 10.7 % (2.0-8.0); NEUTROPHILS # 9.3 10^3/uL (1.5-8.5); PLATELET COUNT, AUTOMATED 287 10^3/uL (150-450); RED BLOOD COUNT 3.45 10^6/uL (4.30-6.10); WHITE BLOOD COUNT 11.9 10^3/uL (4.0-10.0)
[2022-04-15] MEDS ORDERED: NS 2,600 ML in IV 1 EA IV ONE (12:25)
[2022-04-15] MEDS ORDERED: cefTRIAXone SOD 2 GM in D5W MINI-BAG PLUS 50 ML IV ONE (12:25)
[2022-04-15] MEDS ORDERED: CALCIUM CHLORIDE 10% 1 GM in D5W 100 ML IV SCH (14:00)
[2022-04-15] MEDS ORDERED: ETOMIDATE INJ 20MG/10ML VIAL IV STA (14:29)
[2022-04-15] MEDS ORDERED: ROCURONIUM BROMIDE 50 MG/5 ML VIAL IV STA (14:29)
[2022-04-15] MEDS ORDERED: MIDAZOLAM HCL 100 MG in D5W 80 ML IV SCH ×2 (14:30→19:38)
[2022-04-15] MEDS ORDERED: REFRIGERATOR IV KEYS XX PRN (14:30)
[2022-04-15] MEDS ORDERED: SODIUM CHLORIDE 0.9% 1000ML IV PRN (14:35)
[2022-04-15] MEDS ORDERED: LIDOCAINE 1% SDV 5ML VIAL SC PRN (14:35)
[2022-04-15] MEDS ORDERED: HYDROCORTISONE 100 MG/2 ML VIAL (J1720 PER 1) IV ONE (14:40)
[2022-04-15] MEDS ORDERED: BUME2TAB3 PO (15:06)
[2022-04-15] MEDS ORDERED: HOME MED LIST COMPLETE! XX SCH (15:10)
[2022-04-15] MEDS ORDERED: PHENYLEPHRINE 10MG/ML 1ML VIAL (J2370 PER 1) As Ordered ONE (15:11)
[2022-04-15] MEDS ORDERED: HumuLIN R (REGULAR) INSULIN (NovoLIN R) **100U/ML** PER UNIT IV STA (15:13)
[2022-04-15] MEDS ORDERED: DEXTROSE 50% 50 ML SYRINGE IV STA (15:13)
[2022-04-15] MEDS ORDERED: SODIUM BICARBONATE 8.4% INJ 50 ML SYRINGE IV ONE (15:15)
[2022-04-15] MEDS: MIDAZOLAM HCL 100 MG in D5W 80 ML IV SCH (15:15)
[2022-04-15] MEDS ORDERED: ALBUTEROL SULFATE 2.5 MG/0.5 ML INH NEB SOLN NEB ONE (15:15)
[2022-04-15] MEDS: NOREPINEPHRINE/DEXTROSE 8 MG in IV 1 EA IV SCH ×2 (15:15→17:26)
[2022-04-15] MEDS ORDERED: DEXTROSE 50% 50 ML SYRINGE As Ordered ONE (15:24)
[2022-04-15] MEDS ORDERED: SODIUM BICARBONATE 8.4% INJ 50 ML SYRINGE As Ordered ONE (15:25)
[2022-04-15] MEDS ORDERED: PHENYLEPHRINE HCL INJ 50 MG in D5W 500 ML IV SCH ×2 (15:35→15:38)
[2022-04-15] MEDS ORDERED: PHENYLEPHRINE HCL INJ 50 MG in D5W 495 ML IV SCH (15:40)
[2022-04-15] MEDS ORDERED: fentaNYL 100 MCG/2 ML INJECTION As Ordered ONE (15:42)
[2022-04-15] MEDS ORDERED: fentaNYL 100 MCG/2 ML INJECTION IV ONE (15:45)
[2022-04-15] MEDS: IPRATROPIUM 0.5MG/ALBUTEROL 2.5MG INH SOL UD 3ML (DUONEB) NEB SCH ×2 (15:47→19:17)
[2022-04-15] MEDS ORDERED: VASOPRESSIN INJ 20 UNITS in NS 500 ML IV SCH (16:00)
[2022-04-15 16:25] LABS: MAGNESIUM LEVEL 2.1 MG/DL (1.8-2.4)
[2022-04-15 16:59] LABS: ABG BASE EXCESS -0.1 (-2.0-2.0); ABG HCO3 23.1 MEQ/L (22.0-26.0); ABG O2 SATURATION 96.4 % (95.0-99.0); ABG PARTIAL PRESSURE CO2 32.8 mmHg (35.0-45.0); ABG PARTIAL PRESSURE O2 84.1 mmHg (75.0-100.0); ABG STANDARD HCO3 24.4 MEQ/L (22.0-26.0); ABG TOTAL CO2 24.1 MEQ/L (23.0-31.0); ABG pH (ARTERIAL) 7.466 UNITS (7.350-7.450)
[2022-04-15] MEDS: AZITHROMYCIN INJ 500 MG, VIAL MATE ADAPTER 1 EACH in NS 250 ML IV SCH (17:32)
[2022-04-15] MEDS: fentaNYL CITRATE 1,000 MCG in NS 80 ML IV SCH (20:27)
[2022-04-15] MEDS: CHLORHEXIDINE GLUCONATE 0.12 % 15ML UDC (PERIDEX ORAL RINSE) MT SCH (20:37)
[2022-04-15] MEDS: HEPARIN SOD (PORCINE) 5000UNITS/ML 1ML VIAL/SYRINGE SQ SCH (20:37)
[2022-04-16] VITALS (70 sets, daily range): BP systolic 72–240; BP diastolic 39–104
[2022-04-16] MEDS: dexmedeTOMidine 200 MCG in IV 1 EA IV SCH ×7 (00:53→23:14)
[2022-04-16] MEDS: MIDAZOLAM HCL 100 MG in D5W 80 ML IV SCH ×4 (01:13→19:04)
[2022-04-16 05:59] LABS: ABG HCO3 24.4 MEQ/L (22.0-26.0); ABG O2 SATURATION 97.1 % (95.0-99.0); ABG PARTIAL PRESSURE CO2 29.2 mmHg (35.0-45.0); ABG PARTIAL PRESSURE O2 86.3 mmHg (75.0-100.0); ABG STANDARD HCO3 26.3 MEQ/L (22.0-26.0); ABG TOTAL CO2 25.3 MEQ/L (23.0-31.0)
[2022-04-16 06:33] LABS: ALBUMIN 2.7 GM/DL (3.2-5.2); BILIRUBIN,TOTAL 0.4 MG/DL (0.2-1.0); CALCIUM LEVEL 9.3 MG/DL (8.8-10.2); CREATININE FOR GFR 4.95 MG/DL (0.70-1.30); GLOMERULAR FILTRATION RATE 12.2 (>42); POTASSIUM SERUM 4.6 MEQ/L (3.5-5.1); TOTAL PROTEIN 6.7 GM/DL (6.4-8.2)
[2022-04-16] MEDS: fentaNYL CITRATE 1,000 MCG in NS 80 ML IV SCH ×2 (06:48→17:06)
[2022-04-16] MEDS: IPRATROPIUM 0.5MG/ALBUTEROL 2.5MG INH SOL UD 3ML (DUONEB) NEB SCH ×4 (07:35→19:21)
[2022-04-16 07:38] LABS: HEMATOCRIT 28.9 % (42.0-52.0); HEMOGLOBIN 9.2 g/dl (13.5-17.5); MEAN CORPUSCULAR HEMOGLOBIN 31.8 pg (27.0-33.0); MEAN CORPUSCULAR HGB CONC 31.8 g/dl (32.0-36.5); RED BLOOD COUNT 2.89 10^6/uL (4.30-6.10); WHITE BLOOD COUNT 5.7 10^3/uL (4.0-10.0)
[2022-04-16 07:43] LABS: PLATELET COUNT, AUTOMATED 179 10^3/uL (150-450)
[2022-04-16] MEDS ORDERED: SODIUM CHLORIDE 0.9% 1000ML IV PRN (07:45)
[2022-04-16] MEDS ORDERED: LIDOCAINE 1% SDV 5ML VIAL SC PRN (07:45)
[2022-04-16 08:06] LABS: ALBUMIN 2.5 GM/DL (3.2-5.2); BILIRUBIN,TOTAL 0.4 MG/DL (0.2-1.0); CALCIUM LEVEL 9.3 MG/DL (8.8-10.2); CREATININE FOR GFR 5.17 MG/DL (0.70-1.30); GLOMERULAR FILTRATION RATE 11.6 (>42); POTASSIUM SERUM 4.5 MEQ/L (3.5-5.1); TOTAL PROTEIN 6.5 GM/DL (6.4-8.2)
[2022-04-16] MEDS ORDERED: GABAPENTIN 300 MG CAP PO SCH (09:00)
[2022-04-16] MEDS: CHLORHEXIDINE GLUCONATE 0.12 % 15ML UDC (PERIDEX ORAL RINSE) MT SCH ×2 (10:28→20:11)
[2022-04-16] MEDS: HEPARIN SOD (PORCINE) 5000UNITS/ML 1ML VIAL/SYRINGE SQ SCH ×2 (10:28→20:11)
[2022-04-16 11:11] LABS: ABG BASE EXCESS 6.8 (-2.0-2.0); ABG HCO3 28.5 MEQ/L (22.0-26.0); ABG O2 SATURATION 99.4 % (95.0-99.0); ABG PARTIAL PRESSURE O2 175.2 mmHg (75.0-100.0); ABG STANDARD HCO3 30.7 MEQ/L (22.0-26.0); ABG TOTAL CO2 29.4 MEQ/L (23.0-31.0); ABG pH (ARTERIAL) 7.595 UNITS (7.350-7.450)
[2022-04-16] MEDS ORDERED: cefTRIAXone SOD 1GM VIAL (J0696 PER 250MG) IM SCH (12:00)
[2022-04-16] MEDS ORDERED: NOREPINEPHRINE/DEXTROSE 8 MG in IV 1 EA IV STA (12:04)
[2022-04-16] MEDS ORDERED: NOREPINEPHRINE 8MG IN 500ML DEXTROSE 5% BAG As Ordered ONE (12:07)
[2022-04-16] MEDS: NOREPINEPHRINE/DEXTROSE 8 MG in IV 1 EA IV SCH (12:30)
[2022-04-16] MEDS: cefTRIAXone SOD 1 GM in D5W MINI-BAG PLUS 50 ML IV SCH (15:52)
[2022-04-16] MEDS: MIDODRINE 5 MG TAB PO SCH (15:54)
[2022-04-16] MEDS: PANTOPRAZOLE 40MG VIAL IV SCH (17:44)
[2022-04-16] MEDS: AZITHROMYCIN INJ 500 MG, VIAL MATE ADAPTER 1 EACH in NS 250 ML IV SCH (17:44)
[2022-04-16] MEDS: HYDROCORTISONE 100 MG/2 ML VIAL (J1720 PER 1) IV SCH ×2 (18:16→23:58)
[2022-04-16] MEDS: GABAPENTIN 300 MG CAP PO SCH (20:11)
[2022-04-17] VITALS (43 sets, daily range): BP systolic 97–147; BP diastolic 50–69
[2022-04-17] MEDS: fentaNYL CITRATE 1,000 MCG in NS 80 ML IV SCH ×2 (01:11→11:00)
[2022-04-17] MEDS: dexmedeTOMidine 200 MCG in IV 1 EA IV SCH ×4 (05:29→22:59)
[2022-04-17] MEDS: HYDROCORTISONE 100 MG/2 ML VIAL (J1720 PER 1) IV SCH ×4 (05:29→23:02)
[2022-04-17 05:35] LABS: ABG BASE EXCESS 4.5 (-2.0-2.0); ABG HCO3 26.8 MEQ/L (22.0-26.0); ABG PARTIAL PRESSURE CO2 31.9 mmHg (35.0-45.0); ABG PARTIAL PRESSURE O2 65.9 mmHg (75.0-100.0); ABG STANDARD HCO3 28.5 MEQ/L (22.0-26.0); ABG TOTAL CO2 27.8 MEQ/L (23.0-31.0); ABG pH (ARTERIAL) 7.543 UNITS (7.350-7.450)
[2022-04-17 05:38] LABS: ALBUMIN 2.5 GM/DL (3.2-5.2); BILIRUBIN,TOTAL 0.4 MG/DL (0.2-1.0); CALCIUM LEVEL 9.2 MG/DL (8.8-10.2); CREATININE FOR GFR 3.71 MG/DL (0.70-1.30); POTASSIUM SERUM 4.6 MEQ/L (3.5-5.1); TOTAL PROTEIN 6.1 GM/DL (6.4-8.2)
[2022-04-17] MEDS: MIDAZOLAM HCL 100 MG in D5W 80 ML IV SCH ×2 (06:06→16:56)
[2022-04-17] MEDS: IPRATROPIUM 0.5MG/ALBUTEROL 2.5MG INH SOL UD 3ML (DUONEB) NEB SCH ×4 (07:17→19:10)
[2022-04-17] MEDS: MIDODRINE 5 MG TAB PO SCH ×3 (08:12→21:16)
[2022-04-17] MEDS: HEPARIN SOD (PORCINE) 5000UNITS/ML 1ML VIAL/SYRINGE SQ SCH ×2 (08:12→20:36)
[2022-04-17] MEDS: CHLORHEXIDINE GLUCONATE 0.12 % 15ML UDC (PERIDEX ORAL RINSE) MT SCH ×2 (08:12→20:36)
[2022-04-17] MEDS: cefTRIAXone SOD 1 GM in D5W MINI-BAG PLUS 50 ML IV SCH (11:36)
[2022-04-17] MEDS: AZITHROMYCIN INJ 500 MG, VIAL MATE ADAPTER 1 EACH in NS 250 ML IV SCH (16:24)
[2022-04-17] MEDS: PANTOPRAZOLE 40MG VIAL IV SCH (18:07)
[2022-04-17] MEDS: GABAPENTIN 300 MG CAP PO SCH (20:36)
[2022-04-18] VITALS (44 sets, daily range): BP systolic 98–161; BP diastolic 51–68
[2022-04-18] MEDS ORDERED: SODIUM CHLORIDE 0.9% 1000ML IV PRN (00:35)
[2022-04-18] MEDS ORDERED: LIDOCAINE 1% SDV 5ML VIAL SC PRN (00:35)
[2022-04-18 04:53] LABS: HEMATOCRIT 32.2 % (42.0-52.0); HEMOGLOBIN 10.3 g/dl (13.5-17.5); MEAN CORPUSCULAR HEMOGLOBIN 31.7 pg (27.0-33.0); MEAN CORPUSCULAR VOLUME 99.1 fl (80.0-96.0); PLATELET COUNT, AUTOMATED 240 10^3/uL (150-450); RED BLOOD COUNT 3.25 10^6/uL (4.30-6.10); WHITE BLOOD COUNT 8.2 10^3/uL (4.0-10.0)
[2022-04-18] MEDS: HYDROCORTISONE 100 MG/2 ML VIAL (J1720 PER 1) IV SCH ×2 (05:11→17:20)
[2022-04-18] MEDS: dexmedeTOMidine 200 MCG in IV 1 EA IV SCH (05:12)
[2022-04-18] MEDS: MIDODRINE 5 MG TAB PO SCH ×3 (05:12→22:00)
[2022-04-18 05:28] LABS: ALBUMIN 2.8 GM/DL (3.2-5.2); BILIRUBIN,TOTAL 0.4 MG/DL (0.2-1.0); CALCIUM LEVEL 8.5 MG/DL (8.8-10.2); CREATININE FOR GFR 5.42 MG/DL (0.70-1.30); TOTAL PROTEIN 6.3 GM/DL (6.4-8.2)
[2022-04-18 06:27] LABS: ABG BASE EXCESS 3.4 (-2.0-2.0); ABG HCO3 27.2 MEQ/L (22.0-26.0); ABG O2 SATURATION 98.2 % (95.0-99.0); ABG PARTIAL PRESSURE CO2 38.2 mmHg (35.0-45.0); ABG PARTIAL PRESSURE O2 102.6 mmHg (75.0-100.0); ABG STANDARD HCO3 27.5 MEQ/L (22.0-26.0); ABG TOTAL CO2 28.3 MEQ/L (23.0-31.0)
[2022-04-18] MEDS: CHLORHEXIDINE GLUCONATE 0.12 % 15ML UDC (PERIDEX ORAL RINSE) MT SCH ×2 (08:14→20:09)
[2022-04-18] MEDS: HEPARIN SOD (PORCINE) 5000UNITS/ML 1ML VIAL/SYRINGE SQ SCH ×2 (08:15→20:08)
[2022-04-18] MEDS: IPRATROPIUM 0.5MG/ALBUTEROL 2.5MG INH SOL UD 3ML (DUONEB) NEB SCH ×4 (08:30→19:06)
[2022-04-18] MEDS: AZITHROMYCIN INJ 500 MG, VIAL MATE ADAPTER 1 EACH in NS 250 ML IV SCH (17:19)
[2022-04-18] MEDS: PANTOPRAZOLE 40MG VIAL IV SCH (17:19)
[2022-04-18] MEDS: GABAPENTIN 300 MG CAP PO SCH (20:08)
[2022-04-19] VITALS (14 sets, daily range): BP systolic 128–162; BP diastolic 58–101
[2022-04-19] MEDS ORDERED: MIDAZOLAM INJ 2MG/2ML VIAL (J2250 PER 1MG) IV STA (00:56)
[2022-04-19] MEDS: HYDROCORTISONE 100 MG/2 ML VIAL (J1720 PER 1) IV SCH (04:20)
[2022-04-19 04:53] LABS: HEMOGLOBIN 11.9 g/dl (13.5-17.5); MEAN CORPUSCULAR HEMOGLOBIN 32.3 pg (27.0-33.0); MEAN CORPUSCULAR HGB CONC 32.2 g/dl (32.0-36.5); MEAN CORPUSCULAR VOLUME 100.5 fl (80.0-96.0); PLATELET COUNT, AUTOMATED 304 10^3/uL (150-450); RED BLOOD COUNT 3.68 10^6/uL (4.30-6.10); WHITE BLOOD COUNT 12.4 10^3/uL (4.0-10.0)
[2022-04-19 05:44] LABS: BILIRUBIN,TOTAL 0.6 MG/DL (0.2-1.0); CALCIUM LEVEL 8.6 MG/DL (8.8-10.2); CREATININE FOR GFR 4.01 MG/DL (0.70-1.30); GLOMERULAR FILTRATION RATE 15.5 (>42); POTASSIUM SERUM 4.6 MEQ/L (3.5-5.1); TOTAL PROTEIN 7.2 GM/DL (6.4-8.2)
[2022-04-19] MEDS: MIDODRINE 5 MG TAB PO SCH ×4 (06:00→22:56)
[2022-04-19] MEDS: IPRATROPIUM 0.5MG/ALBUTEROL 2.5MG INH SOL UD 3ML (DUONEB) NEB SCH ×4 (07:34→19:09)
[2022-04-19] MEDS: HEPARIN SOD (PORCINE) 5000UNITS/ML 1ML VIAL/SYRINGE SQ SCH ×4 (08:16→22:57)
[2022-04-19] MEDS ORDERED: MIRALAX *UNIT DOSE* 17GM PACKET PO PRN (09:50)
[2022-04-19] MEDS: FAMOTIDINE 20 MG TAB PO SCH (10:29)
[2022-04-19] MEDS: ALPRAZolam 0.25 MG TAB PO PRN ×2 (10:29→20:02)
[2022-04-19] MEDS: DOCUSATE SODIUM 100MG CAPSULE PO SCH ×2 (10:29→19:55)
[2022-04-19] MEDS: CLOPIDOGREL 75 MG TAB PO SCH (10:29)
[2022-04-19] MEDS ORDERED: SODIUM CHLORIDE 0.9% 1000ML IV PRN (10:40)
[2022-04-19] MEDS ORDERED: LIDOCAINE 1% SDV 5ML VIAL SC PRN (10:40)
[2022-04-19] MEDS: (RENVELA) SEVELAMER **CARBONate** 800 MG TAB PO SCH ×2 (12:30→17:21)
[2022-04-19] MEDS ORDERED: OLANZapine 2.5MG TABLET PO ONE (14:00)
[2022-04-19] MEDS: PANTOPRAZOLE 40MG VIAL IV SCH (17:21)
[2022-04-19] MEDS: AZITHROMYCIN INJ 500 MG, VIAL MATE ADAPTER 1 EACH in NS 250 ML IV SCH (17:21)
[2022-04-19] MEDS: GABAPENTIN 300 MG CAP PO SCH (19:54)
[2022-04-19] MEDS: DULoxetine 30MG CAPSULE (CYMBALTA) PO SCH (19:55)
[2022-04-19] MEDS: ATORVASTATIN 20 MG TAB PO SCH (19:55)
[2022-04-20 06:00] VITALS: BP 119/98
[2022-04-20] MEDS: HEPARIN SOD (PORCINE) 5000UNITS/ML 1ML VIAL/SYRINGE SQ SCH ×3 (06:00→21:45)
[2022-04-20] MEDS: MIDODRINE 5 MG TAB PO SCH ×3 (06:00→21:45)
[2022-04-20 06:19] LABS: HEMOGLOBIN 11.2 g/dl (13.5-17.5); MEAN CORPUSCULAR HEMOGLOBIN 31.7 pg (27.0-33.0); MEAN CORPUSCULAR VOLUME 99.2 fl (80.0-96.0); PLATELET COUNT, AUTOMATED 266 10^3/uL (150-450); RED BLOOD COUNT 3.53 10^6/uL (4.30-6.10); WHITE BLOOD COUNT 10.2 10^3/uL (4.0-10.0)
[2022-04-20 06:37] LABS: ALBUMIN 3.1 GM/DL (3.2-5.2); BILIRUBIN,TOTAL 0.7 MG/DL (0.2-1.0); CALCIUM LEVEL 8.9 MG/DL (8.8-10.2); CREATININE FOR GFR 3.7 MG/DL (0.70-1.30); MAGNESIUM LEVEL 2.1 MG/DL (1.8-2.4); POTASSIUM SERUM 3.6 MEQ/L (3.5-5.1); TOTAL PROTEIN 7.1 GM/DL (6.4-8.2)
[2022-04-20] MEDS: IPRATROPIUM 0.5MG/ALBUTEROL 2.5MG INH SOL UD 3ML (DUONEB) NEB SCH ×4 (07:12→19:34)
[2022-04-20] MEDS: DOCUSATE SODIUM 100MG CAPSULE PO SCH ×2 (08:56→21:45)
[2022-04-20] MEDS: CLOPIDOGREL 75 MG TAB PO SCH (08:56)
[2022-04-20] MEDS: (RENVELA) SEVELAMER **CARBONate** 800 MG TAB PO SCH ×3 (08:56→17:51)
[2022-04-20] MEDS: ALPRAZolam 0.25 MG TAB PO PRN (08:56)
[2022-04-20] MEDS: FAMOTIDINE 20 MG TAB PO SCH (08:56)
[2022-04-20 14:18] VITALS: BP 137/78
[2022-04-20] MEDS: ACETAMINOPHEN TAB 650MG DOSE (2X325MG) PO PRN ×2 (14:24→23:05)
[2022-04-20] MEDS: PANTOPRAZOLE 40MG VIAL IV SCH (17:51)
[2022-04-20] MEDS ORDERED: ALPRAZolam 0.25 MG TAB PO PRN (21:00)
[2022-04-20] MEDS: GABAPENTIN 300 MG CAP PO SCH (21:45)
[2022-04-20] MEDS: ATORVASTATIN 20 MG TAB PO SCH (21:45)
[2022-04-20] MEDS: DULoxetine 30MG CAPSULE (CYMBALTA) PO SCH (21:45)
[2022-04-20 22:00] VITALS: BP 131/66
[2022-04-21 05:42] LABS: HEMATOCRIT 34.8 % (42.0-52.0); HEMOGLOBIN 11.3 g/dl (13.5-17.5); MEAN CORPUSCULAR HGB CONC 32.5 g/dl (32.0-36.5); MEAN CORPUSCULAR VOLUME 98.6 fl (80.0-96.0); PLATELET COUNT, AUTOMATED 272 10^3/uL (150-450); RED BLOOD COUNT 3.53 10^6/uL (4.30-6.10); WHITE BLOOD COUNT 10.9 10^3/uL (4.0-10.0)
[2022-04-21 06:00] VITALS: BP 128/59
[2022-04-21 06:15] LABS: ALBUMIN 3.1 GM/DL (3.2-5.2); BILIRUBIN,TOTAL 0.6 MG/DL (0.2-1.0); CALCIUM LEVEL 8.6 MG/DL (8.8-10.2); CREATININE FOR GFR 5.38 MG/DL (0.70-1.30); GLOMERULAR FILTRATION RATE 11.1 (>42); PHOSPHORUS LEVEL 5.8 MG/DL (2.5-4.9); POTASSIUM SERUM 3.7 MEQ/L (3.5-5.1); TOTAL PROTEIN 6.8 GM/DL (6.4-8.2)
[2022-04-21] MEDS: MIDODRINE 5 MG TAB PO SCH ×3 (06:23→20:54)
[2022-04-21] MEDS: HEPARIN SOD (PORCINE) 5000UNITS/ML 1ML VIAL/SYRINGE SQ SCH ×3 (06:23→20:54)
[2022-04-21] MEDS: IPRATROPIUM 0.5MG/ALBUTEROL 2.5MG INH SOL UD 3ML (DUONEB) NEB SCH ×4 (07:10→19:48)
[2022-04-21] MEDS: (RENVELA) SEVELAMER **CARBONate** 800 MG TAB PO SCH ×3 (10:19→17:18)
[2022-04-21] MEDS: CLOPIDOGREL 75 MG TAB PO SCH ×2 (11:30→14:04)
[2022-04-21] MEDS: DOCUSATE SODIUM 100MG CAPSULE PO SCH ×3 (11:30→20:54)
[2022-04-21] MEDS: FAMOTIDINE 20 MG TAB PO SCH ×2 (11:30→14:05)
[2022-04-21 14:00] VITALS: BP 139/69
[2022-04-21 14:06] VITALS: BP 139/69
[2022-04-21 15:52] LABS: ABG BASE EXCESS 0.4 (-2.0-2.0); ABG HCO3 25.2 MEQ/L (22.0-26.0); ABG O2 SATURATION 91.9 % (95.0-99.0); ABG PARTIAL PRESSURE CO2 41.1 mmHg (35.0-45.0); ABG PARTIAL PRESSURE O2 64.8 mmHg (75.0-100.0); ABG STANDARD HCO3 24.7 MEQ/L (22.0-26.0); ABG TOTAL CO2 26.4 MEQ/L (23.0-31.0); ABG pH (ARTERIAL) 7.405 UNITS (7.350-7.450)
[2022-04-21] MEDS: PANTOPRAZOLE 40MG VIAL IV SCH (17:18)
[2022-04-21 20:00] VITALS: BP 101/60
[2022-04-21] MEDS: ATORVASTATIN 20 MG TAB PO SCH (20:54)
[2022-04-21] MEDS: GABAPENTIN 100 MG CAP PO SCH (20:54)
[2022-04-21] MEDS: DULoxetine 30MG CAPSULE (CYMBALTA) PO SCH (20:54)
[2022-04-21 20:55] VITALS: BP 111/66
[2022-04-21] MEDS ORDERED: GABAPENTIN 100 MG CAP PO SCH (21:00)
[2022-04-22 05:28] VITALS: BP 119/49
[2022-04-22] MEDS ORDERED: LIDOCAINE 1% SDV 5ML VIAL SC PRN (06:00)
[2022-04-22] MEDS ORDERED: SODIUM CHLORIDE 0.9% 1000ML IV PRN (06:00)
[2022-04-22] MEDS: MIDODRINE 5 MG TAB PO SCH ×3 (06:08→21:40)
[2022-04-22] MEDS: HEPARIN SOD (PORCINE) 5000UNITS/ML 1ML VIAL/SYRINGE SQ SCH ×3 (06:09→21:37)
[2022-04-22 06:15] LABS: HEMATOCRIT 33.7 % (42.0-52.0); HEMOGLOBIN 10.9 g/dl (13.5-17.5); MEAN CORPUSCULAR HEMOGLOBIN 31.7 pg (27.0-33.0); MEAN CORPUSCULAR HGB CONC 32.3 g/dl (32.0-36.5); PLATELET COUNT, AUTOMATED 278 10^3/uL (150-450); RED BLOOD COUNT 3.44 10^6/uL (4.30-6.10); WHITE BLOOD COUNT 11.5 10^3/uL (4.0-10.0)
[2022-04-22 06:43] LABS: ALBUMIN 3.1 GM/DL (3.2-5.2); BILIRUBIN,TOTAL 0.9 MG/DL (0.2-1.0); CALCIUM LEVEL 7.5 MG/DL (8.8-10.2); CREATININE FOR GFR 6.94 MG/DL (0.70-1.30); GLOMERULAR FILTRATION RATE 8.2 (>42); MAGNESIUM LEVEL 2.1 MG/DL (1.8-2.4); PHOSPHORUS LEVEL 6.3 MG/DL (2.5-4.9); POTASSIUM SERUM 4.1 MEQ/L (3.5-5.1); TOTAL PROTEIN 6.1 GM/DL (6.4-8.2)
[2022-04-22] MEDS: IPRATROPIUM 0.5MG/ALBUTEROL 2.5MG INH SOL UD 3ML (DUONEB) NEB SCH ×4 (07:06→19:15)
[2022-04-22] MEDS: (RENVELA) SEVELAMER **CARBONate** 800 MG TAB PO SCH ×3 (08:06→18:01)
[2022-04-22] MEDS: DOCUSATE SODIUM 100MG CAPSULE PO SCH ×2 (08:06→21:37)
[2022-04-22] MEDS: CLOPIDOGREL 75 MG TAB PO SCH (08:07)
[2022-04-22] MEDS: ACETAMINOPHEN TAB 650MG DOSE (2X325MG) PO PRN (08:07)
[2022-04-22] MEDS: FAMOTIDINE 20 MG TAB PO SCH (08:07)
[2022-04-22 14:00] VITALS: BP 141/72
[2022-04-22] MEDS: PANTOPRAZOLE 40MG VIAL IV SCH (18:01)
[2022-04-22 20:22] VITALS: BP 123/57
[2022-04-22] MEDS: GABAPENTIN 100 MG CAP PO SCH (21:37)
[2022-04-22] MEDS: DULoxetine 30MG CAPSULE (CYMBALTA) PO SCH (21:37)
[2022-04-22] MEDS: ATORVASTATIN 20 MG TAB PO SCH (21:37)
[2022-04-22] MEDS ORDERED: PERCOCET 5MG/325MG TAB PO ONE (22:50)
[2022-04-23] MEDS ORDERED: ACETAMINOPHEN 500 MG TAB PO ONE (04:00)
[2022-04-23] MEDS: HEPARIN SOD (PORCINE) 5000UNITS/ML 1ML VIAL/SYRINGE SQ SCH ×3 (05:01→22:11)
[2022-04-23] MEDS: MIDODRINE 5 MG TAB PO SCH ×3 (05:01→22:11)
[2022-04-23 05:06] VITALS: BP 137/83
[2022-04-23 06:26] LABS: HEMATOCRIT 36.5 % (42.0-52.0); HEMOGLOBIN 11.8 g/dl (13.5-17.5); MEAN CORPUSCULAR HEMOGLOBIN 31.7 pg (27.0-33.0); MEAN CORPUSCULAR HGB CONC 32.3 g/dl (32.0-36.5); MEAN CORPUSCULAR VOLUME 98.1 fl (80.0-96.0); PLATELET COUNT, AUTOMATED 292 10^3/uL (150-450); RED BLOOD COUNT 3.72 10^6/uL (4.30-6.10); WHITE BLOOD COUNT 10.5 10^3/uL (4.0-10.0)
[2022-04-23 07:01] LABS: ALBUMIN 3.3 GM/DL (3.2-5.2); BILIRUBIN,TOTAL 0.5 MG/DL (0.2-1.0); CALCIUM LEVEL 8.6 MG/DL (8.8-10.2); CREATININE FOR GFR 4.61 MG/DL (0.70-1.30); GLOMERULAR FILTRATION RATE 13.2 (>42); PHOSPHORUS LEVEL 4.8 MG/DL (2.5-4.9); POTASSIUM SERUM 4.3 MEQ/L (3.5-5.1); TOTAL PROTEIN 6.8 GM/DL (6.4-8.2)
[2022-04-23] MEDS: IPRATROPIUM 0.5MG/ALBUTEROL 2.5MG INH SOL UD 3ML (DUONEB) NEB SCH ×3 (07:42→15:47)
[2022-04-23] MEDS: FAMOTIDINE 20 MG TAB PO SCH (08:39)
[2022-04-23] MEDS: CLOPIDOGREL 75 MG TAB PO SCH (08:39)
[2022-04-23] MEDS: (RENVELA) SEVELAMER **CARBONate** 800 MG TAB PO SCH ×3 (08:39→18:30)
[2022-04-23] MEDS: ACETAMINOPHEN TAB 650MG DOSE (2X325MG) PO PRN (08:40)
[2022-04-23] MEDS: DOCUSATE SODIUM 100MG CAPSULE PO SCH ×2 (08:40→20:10)
[2022-04-23] MEDS: PANTOPRAZOLE 40MG TAB (PROTONIX) PO SCH (08:40)
[2022-04-23] MEDS ORDERED: SODIUM CHLORIDE 0.9% 1000ML IV PRN (11:50)
[2022-04-23] MEDS: traMADol 50 MG TAB PO PRN ×2 (12:36→18:30)
[2022-04-23] MEDS: CAPSAICIN 0.025% CR 60 GM TOP SCH ×4 (13:00→20:11)
[2022-04-23 14:00] VITALS: BP 138/73
[2022-04-23] MEDS: VANICREAM MOISTURIZING SKIN CREAM 113GM TUBE TOP SCH ×2 (14:42→20:11)
[2022-04-23] MEDS ORDERED: IPRATROPIUM 0.5MG/ALBUTEROL 2.5MG INH SOL UD 3ML (DUONEB) NEB PRN (16:30)
[2022-04-23] MEDS: GABAPENTIN 100 MG CAP PO SCH ×2 (18:30→20:10)
[2022-04-23] MEDS: ATORVASTATIN 20 MG TAB PO SCH (20:10)
[2022-04-23] MEDS: DULoxetine 30MG CAPSULE (CYMBALTA) PO SCH (20:10)
[2022-04-23 22:00] VITALS: BP 126/48
[2022-04-24 05:41] LABS: HEMATOCRIT 36.3 % (42.0-52.0); HEMOGLOBIN 11.6 g/dl (13.5-17.5); PLATELET COUNT, AUTOMATED 256 10^3/uL (150-450); RED BLOOD COUNT 3.63 10^6/uL (4.30-6.10); WHITE BLOOD COUNT 10.6 10^3/uL (4.0-10.0)
[2022-04-24] MEDS: CAPSAICIN 0.025% CR 60 GM TOP SCH ×3 (05:51→13:11)
[2022-04-24] MEDS: VANICREAM MOISTURIZING SKIN CREAM 113GM TUBE TOP SCH ×4 (05:51→21:38)
[2022-04-24] MEDS: FAMOTIDINE 20 MG TAB PO SCH (05:52)
[2022-04-24] MEDS: GABAPENTIN 100 MG CAP PO SCH ×2 (05:52→21:37)
[2022-04-24] MEDS: HEPARIN SOD (PORCINE) 5000UNITS/ML 1ML VIAL/SYRINGE SQ SCH ×3 (05:52→21:37)
[2022-04-24] MEDS: traMADol 50 MG TAB PO PRN ×4 (05:53→21:38)
[2022-04-24] MEDS: DOCUSATE SODIUM 100MG CAPSULE PO SCH ×2 (05:53→21:37)
[2022-04-24] MEDS: (RENVELA) SEVELAMER **CARBONate** 800 MG TAB PO SCH ×3 (05:53→16:58)
[2022-04-24] MEDS: PANTOPRAZOLE 40MG TAB (PROTONIX) PO SCH (05:53)
[2022-04-24] MEDS: CLOPIDOGREL 75 MG TAB PO SCH (05:54)
[2022-04-24] MEDS: MIDODRINE 5 MG TAB PO SCH ×3 (05:56→22:00)
[2022-04-24 06:00] VITALS: BP 118/50
[2022-04-24] MEDS ORDERED: LIDOCAINE 1% SDV 5ML VIAL SC PRN (06:00)
[2022-04-24 06:21] LABS: ALBUMIN 3.2 GM/DL (3.2-5.2); BILIRUBIN,TOTAL 0.9 MG/DL (0.2-1.0); CALCIUM LEVEL 8.6 MG/DL (8.8-10.2); CREATININE FOR GFR 6.44 MG/DL (0.70-1.30); POTASSIUM SERUM 4.5 MEQ/L (3.5-5.1)
[2022-04-24] MEDS ORDERED: cefTRIAXone SOD 1 GM in D5W MINI-BAG PLUS 50 ML IV SCH (08:00)
[2022-04-24] MEDS ORDERED: DOXYCYCLINE HYCLATE 100 MG in D5W MINI-BAG PLUS 100 ML IV SCH (09:00)
[2022-04-24 12:45] VITALS: BP 118/50
[2022-04-24 14:00] VITALS: BP 102/51
[2022-04-24] MEDS: cefTRIAXone SOD 1 GM in D5W MINI-BAG PLUS 50 ML IV SCH (14:47)
[2022-04-24] MEDS: DOXYCYCLINE HYCLATE 100 MG in D5W MINI-BAG PLUS 100 ML IV SCH (15:40)
[2022-04-24] MEDS: DULoxetine 30MG CAPSULE (CYMBALTA) PO SCH (21:37)
[2022-04-24] MEDS: ATORVASTATIN 20 MG TAB PO SCH (21:37)
[2022-04-24 22:00] VITALS: BP 139/67
[2022-04-25] MEDS: DOXYCYCLINE HYCLATE 100 MG in D5W MINI-BAG PLUS 100 ML IV SCH (01:29)
[2022-04-25] MEDS: traMADol 50 MG TAB PO PRN ×2 (04:32→12:38)
[2022-04-25] MEDS: MIDODRINE 5 MG TAB PO SCH (05:01)
[2022-04-25] MEDS: HEPARIN SOD (PORCINE) 5000UNITS/ML 1ML VIAL/SYRINGE SQ SCH (05:45)
[2022-04-25 06:00] VITALS: BP 135/67
[2022-04-25 06:00] LABS: HEMATOCRIT 38.9 % (42.0-52.0); HEMOGLOBIN 12.6 g/dl (13.5-17.5); MEAN CORPUSCULAR HEMOGLOBIN 32.3 pg (27.0-33.0); MEAN CORPUSCULAR HGB CONC 32.4 g/dl (32.0-36.5); MEAN CORPUSCULAR VOLUME 99.7 fl (80.0-96.0); PLATELET COUNT, AUTOMATED 252 10^3/uL (150-450); WHITE BLOOD COUNT 10.7 10^3/uL (4.0-10.0)
[2022-04-25 06:21] LABS: ALBUMIN 3.4 GM/DL (3.2-5.2); BILIRUBIN,TOTAL 0.5 MG/DL (0.2-1.0); CALCIUM LEVEL 9.6 MG/DL (8.8-10.2); CREATININE FOR GFR 4.6 MG/DL (0.70-1.30); GLOMERULAR FILTRATION RATE 13.3 (>42); POTASSIUM SERUM 4.6 MEQ/L (3.5-5.1)
[2022-04-25] MEDS: (RENVELA) SEVELAMER **CARBONate** 800 MG TAB PO SCH ×2 (08:19→12:37)
[2022-04-25] MEDS: PANTOPRAZOLE 40MG TAB (PROTONIX) PO SCH (08:19)
[2022-04-25] MEDS: CLOPIDOGREL 75 MG TAB PO SCH (08:19)
[2022-04-25] MEDS: GABAPENTIN 100 MG CAP PO SCH (08:19)
[2022-04-25] MEDS: DOCUSATE SODIUM 100MG CAPSULE PO SCH (08:19)
[2022-04-25] MEDS: FAMOTIDINE 20 MG TAB PO SCH (08:19)
[2022-04-25] MEDS: VANICREAM MOISTURIZING SKIN CREAM 113GM TUBE TOP SCH (08:20)
[2022-04-25] MEDS ORDERED: CEPH500C PO (09:39)
[2022-04-25] MEDS ORDERED: DULO30CA9 PO (09:39)
[2022-04-25] MEDS ORDERED: DOXY-350 PO (09:39)
[2022-04-25] MEDS ORDERED: GABA-1171 PO (09:39)
[2022-04-25] MEDS: cefTRIAXone SOD 1 GM in D5W MINI-BAG PLUS 50 ML IV SCH (12:37)
[2022-04-26] MEDS ORDERED: LIDOCAINE 1% SDV 5ML VIAL SC PRN (06:00)
[2022-04-26] MEDS ORDERED: SODIUM CHLORIDE 0.9% 1000ML IV PRN (06:00)
== END 2022-04-25 13:47 | disposition home health service (06) | DRG 871 ==
LOC: M ED 10:38 → M ED INP 15:13 → ENRESERV 16:07 → M ICU 16:37 → M MSPAV 04-19 16:23
PROVIDERS: ADMIT Internal Medicine; ATTEND Internal Medicine
PROC: 0BH17EZ Insertion of Endotracheal Airway into Trachea, Via Natural or Artificial Opening (ICD-10-PCS; principal; 2022-04-15)
PROC: 5A1D70Z Performance of Urinary Filtration, Intermittent, Less than 6 Hours Per Day (ICD-10-PCS; 2022-04-15)
PROC: 5A1945Z Respiratory Ventilation, 24-96 Consecutive Hours (ICD-10-PCS; 2022-04-15)
PROC: 02H633Z Insertion of Infusion Device into Right Atrium, Percutaneous Approach (ICD-10-PCS; 2022-04-15)
DX: A41.9 Sepsis, unspecified organism (principal); N18.6 End stage renal disease; R65.21 Severe sepsis with septic shock; J18.9 Pneumonia, unspecified organism; J96.21 Acute and chronic respiratory failure with hypoxia; J96.22 Acute and chronic respiratory failure with hypercapnia; I50.32 Chronic diastolic (congestive) heart failure; N25.81 Secondary hyperparathyroidism of renal origin; F11.20 Opioid dependence, uncomplicated; G93.40 Encephalopathy, unspecified; L03.115 Cellulitis of right lower limb; L03.116 Cellulitis of left lower limb; J98.11 Atelectasis; M54.9 Dorsalgia, unspecified; E87.5 Hyperkalemia; G47.33 Obstructive sleep apnea (adult) (pediatric); D64.9 Anemia, unspecified; K21.9 Gastro-esophageal reflux disease without esophagitis; F41.9 Anxiety disorder, unspecified; I95.89 Other hypotension; I25.10 Atherosclerotic heart disease of native coronary artery without angina pectoris; F32.A Depression, unspecified; E78.5 Hyperlipidemia, unspecified; J44.9 Chronic obstructive pulmonary disease, unspecified; Z87.891 Personal history of nicotine dependence; Z79.02 Long term (current) use of antithrombotics/antiplatelets; Z79.899 Other long term (current) drug therapy; Z88.0 Allergy status to penicillin; Z88.6 Allergy status to analgesic agent; Z88.1 Allergy status to other antibiotic agents; Z99.2 Dependence on renal dialysis; Z95.2 Presence of prosthetic heart valve; Z99.81 Dependence on supplemental oxygen; Z95.1 Presence of aortocoronary bypass graft; Z91.19 Patient's noncompliance with other medical treatment and regimen; M79.2 Neuralgia and neuritis, unspecified

== ENCOUNTER 2022-04-26 23:35 | Emergency (ER) | payer MEDICARE, OTHER ==
[~2022-04-26] VITALS: Ht 167.6 cm; Wt 77.3 kg
[~2022-04-26 23:35] MED LIST changes: +BUME2TAB3 PO; +DULO30CA9 PO
[2022-04-27] MEDS ORDERED: NS 1,000 ML IV ONE (00:35)
[2022-04-27 01:02] LABS: BASO % 0.3 % (0.0-1.0); EOS # 0.3 10^3/uL (0.0-0.5); EOS % 2.3 % (0.0-3.0); HEMATOCRIT 40.3 % (42.0-52.0); HEMOGLOBIN 12.9 g/dl (13.5-17.5); LYMPH # 2.7 10^3/uL (1.5-5.0); LYMPH % 21.4 % (24.0-44.0); MEAN CORPUSCULAR HEMOGLOBIN 32.1 pg (27.0-33.0); MEAN CORPUSCULAR VOLUME 100.2 fl (80.0-96.0); MONO # 1.3 10^3/uL (0.0-0.8); MONO % 10.5 % (2.0-8.0); NEUTROPHILS # 8.2 10^3/uL (1.5-8.5); NEUTROPHILS % 64.6 % (36.0-66.0); PLATELET COUNT, AUTOMATED 239 10^3/uL (150-450); RED BLOOD COUNT 4.02 10^6/uL (4.30-6.10); WHITE BLOOD COUNT 12.6 10^3/uL (4.0-10.0)
[2022-04-27 01:33] LABS: ALBUMIN 3.5 GM/DL (3.2-5.2); BILIRUBIN,DIRECT 0.1 MG/DL (0.0-0.2); BILIRUBIN,TOTAL 0.5 MG/DL (0.2-1.0); CALCIUM LEVEL 9.7 MG/DL (8.8-10.2); CREATININE FOR GFR 4.06 MG/DL (0.70-1.30); GLOMERULAR FILTRATION RATE 15.3 (>42); POTASSIUM SERUM 4.2 MEQ/L (3.5-5.1)
[2022-04-27] MEDS ORDERED: GABAPENTIN 300 MG CAP PO ONE (02:00)
[2022-04-27 02:46] VITALS: BP 133/60
== END 2022-04-27 04:15 | disposition home or self-care (01) ==
LOC: M ED 23:35
DX: G62.9 Polyneuropathy, unspecified (principal); M79.601 Pain in right arm; M79.602 Pain in left arm; E11.9 Type 2 diabetes mellitus without complications; Z79.4 Long term (current) use of insulin; Z88.0 Allergy status to penicillin; Z88.1 Allergy status to other antibiotic agents; Z88.6 Allergy status to analgesic agent

== ENCOUNTER → 2022-07-02 | Outpatient (CLI) | payer MEDICARE, OTHER ==
[~2022-07-02] MED LIST changes: +ISOVUE-300 61% 50ML VIAL As Ordered ONE; +LIDOCAINE 1% MDV 20ML VIAL As Ordered ONE; +methylPREDNISolone SUSP 40MG/ML 1ML VIAL (DEPO MEDROL) As Ordered ONE
== END ==
LOC: M RADPRO 15:08
PROVIDERS: ATTEND Physician Assistant Surgical
DX: M19.012 Primary osteoarthritis, left shoulder (principal)
CPT/HCPCS: 20610; 76000; J1030; Q9967

== ENCOUNTER → 2022-07-09 | Outpatient (POV) | payer MEDICARE, OTHER ==
[~2022-07-09] VITALS: Ht 167.6 cm; Wt 81.8 kg
[~2022-07-09] MED LIST changes: -ISOVUE-300 61% 50ML VIAL As Ordered ONE; -LIDOCAINE 1% MDV 20ML VIAL As Ordered ONE; -methylPREDNISolone SUSP 40MG/ML 1ML VIAL (DEPO MEDROL) As Ordered ONE
[2022-07-09 12:55] VITALS: BP 170/89
== END ==
LOC: M IRPOV 12:37
PROVIDERS: ATTEND Radiology Diagnostic Radiology
DX: Z48.812 Encounter for surgical aftercare following surgery on the circulatory system (principal); Z79.01 Long term (current) use of anticoagulants; Z86.79 Personal history of other diseases of the circulatory system; Z88.0 Allergy status to penicillin; Z88.6 Allergy status to analgesic agent

== ENCOUNTER 2022-07-22 16:44 | Inpatient (IN) | payer MEDICARE, OTHER ==
[~2022-07-22] VITALS: Ht 167.6 cm; Wt 81.8 kg
[2022-07-22] MEDS ORDERED: NALOXONE INJ 0.4MG/1ML VIAL (J2310 PER 1MG) IV STA (17:08)
[2022-07-22 17:18] VITALS: O2SAT 91
[2022-07-22 17:22] LABS: BASO % 0.3 % (0.0-1.0); EOS # 0.2 10^3/uL (0.0-0.5); HEMATOCRIT 32.2 % (42.0-52.0); LYMPH # 0.8 10^3/uL (1.5-5.0); LYMPH % 10.7 % (24.0-44.0); MEAN CORPUSCULAR HEMOGLOBIN 31.8 pg (27.0-33.0); MEAN CORPUSCULAR HGB CONC 31.1 g/dl (32.0-36.5); MEAN CORPUSCULAR VOLUME 102.5 fl (80.0-96.0); MONO % 13.3 % (2.0-8.0); NEUTROPHILS # 5.8 10^3/uL (1.5-8.5); NEUTROPHILS % 73.4 % (36.0-66.0); PLATELET COUNT, AUTOMATED 146 10^3/uL (150-450); RED BLOOD COUNT 3.14 10^6/uL (4.30-6.10); WHITE BLOOD COUNT 7.8 10^3/uL (4.0-10.0)
[2022-07-22 17:25] LABS: ABG BASE EXCESS 5.1 (-2.0-2.0); ABG HCO3 31.4 MEQ/L (22.0-26.0); ABG O2 SATURATION 87.8 % (95.0-99.0); ABG PARTIAL PRESSURE CO2 55.2 mmHg (35.0-45.0); ABG PARTIAL PRESSURE O2 55.9 mmHg (75.0-100.0); ABG STANDARD HCO3 28.9 MEQ/L (22.0-26.0); ABG TOTAL CO2 33.1 MEQ/L (23.0-31.0); ABG pH (ARTERIAL) 7.373 UNITS (7.350-7.450)
[2022-07-22 18:15] LABS: ALBUMIN 3.3 GM/DL (3.2-5.2); BILIRUBIN,DIRECT 0.2 MG/DL (0.0-0.2); BILIRUBIN,TOTAL 0.4 MG/DL (0.2-1.0); CALCIUM LEVEL 8.4 MG/DL (8.8-10.2); GLOMERULAR FILTRATION RATE 21.7 (>42); POTASSIUM SERUM 4.1 MEQ/L (3.5-5.1); THYROID STIMULATING HORMONE 1.58 uIU/ML (0.358-3.740); TOTAL PROTEIN 6.7 GM/DL (6.4-8.2)
[2022-07-22 18:40] LABS: ABG BASE EXCESS 5.6 (-2.0-2.0); ABG HCO3 32.4 MEQ/L (22.0-26.0); ABG O2 SATURATION 97.6 % (95.0-99.0); ABG PARTIAL PRESSURE CO2 59.8 mmHg (35.0-45.0); ABG PARTIAL PRESSURE O2 111.1 mmHg (75.0-100.0); ABG STANDARD HCO3 29.6 MEQ/L (22.0-26.0); ABG TOTAL CO2 34.3 MEQ/L (23.0-31.0); ABG pH (ARTERIAL) 7.352 UNITS (7.350-7.450)
[2022-07-22] MEDS ORDERED: GLUCAGON INJ 1MG VIAL SC PRN (21:00)
[2022-07-22] MEDS ORDERED: GLUCOSE 4GM CHEW TABLET PO PRN (21:00)
[2022-07-22] MEDS ORDERED: DEXTROSE 50% 50 ML SYRINGE IV PRN (21:00)
[2022-07-22] MEDS ORDERED: GABA-282 PO (21:10)
[2022-07-22] MEDS ORDERED: DULO1CAP6 PO (21:10)
[2022-07-22] MEDS ORDERED: CALC1TAB29 PO (21:10)
[2022-07-22] MEDS ORDERED: MIDO5TA PO (21:11)
[2022-07-22] MEDS ORDERED: NORT25CA2 PO (21:12)
[2022-07-22] MEDS ORDERED: MIRT-10 PO (21:13)
[2022-07-22] MEDS ORDERED: MORP15TA2 PO (21:13)
[2022-07-22] MEDS ORDERED: HOME MED LIST COMPLETE! XX SCH (21:15)
[2022-07-22] MEDS ORDERED: NITROGLYCERIN 0.4 MG SUBL TABLET SL PRN (21:35)
[2022-07-22] MEDS ORDERED: ALBUTEROL SULFATE 2.5 MG/0.5 ML INH NEB SOLN NEB PRN (21:40)
[2022-07-22] MEDS: HEPARIN SOD (PORCINE) 5000UNITS/ML 1ML VIAL/SYRINGE SC SCH (21:50)
[2022-07-22] MEDS: IPRATROPIUM 0.5MG/ALBUTEROL 2.5MG INH SOL UD 3ML (DUONEB) NEB SCH (23:30)
[2022-07-22] MEDS: DULoxetine 30MG CAPSULE (CYMBALTA) PO SCH (23:42)
[2022-07-22] MEDS: ATORVASTATIN 20 MG TAB PO SCH (23:42)
[2022-07-23] MEDS: IPRATROPIUM 0.5MG/ALBUTEROL 2.5MG INH SOL UD 3ML (DUONEB) NEB SCH ×6 (04:07→23:53)
[2022-07-23 06:44] LABS: CALCIUM LEVEL 8.5 MG/DL (8.8-10.2); CREATININE FOR GFR 4.29 MG/DL (0.70-1.30); GLOMERULAR FILTRATION RATE 14.3 (>42); POTASSIUM SERUM 4.3 MEQ/L (3.5-5.1)
[2022-07-23] MEDS: INSULIN LISPRO (NovoLOG) PER UNIT SC SCH ×3 (08:13→17:30)
[2022-07-23] MEDS: HEPARIN SOD (PORCINE) 5000UNITS/ML 1ML VIAL/SYRINGE SC SCH ×2 (09:35→20:03)
[2022-07-23] MEDS: FAMOTIDINE 20 MG TAB PO SCH (09:36)
[2022-07-23] MEDS: CLOPIDOGREL 75 MG TAB PO SCH (09:36)
[2022-07-23] MEDS: (RENVELA) SEVELAMER **CARBONate** 800 MG TAB PO SCH ×3 (09:36→20:02)
[2022-07-23] MEDS ORDERED: LIDOCAINE 1% SDV 5ML VIAL SC PRN (09:55)
[2022-07-23] MEDS ORDERED: SODIUM CHLORIDE 0.9% 1000ML IV PRN (09:55)
[2022-07-23 15:39] VITALS: BP 123/92
[2022-07-23 19:42] VITALS: BP 145/98
[2022-07-23] MEDS: ATORVASTATIN 20 MG TAB PO SCH (20:02)
[2022-07-23] MEDS: DULoxetine 30MG CAPSULE (CYMBALTA) PO SCH (20:02)
[2022-07-24] MEDS: IPRATROPIUM 0.5MG/ALBUTEROL 2.5MG INH SOL UD 3ML (DUONEB) NEB SCH ×2 (03:15→07:36)
[2022-07-24 05:48] LABS: HEMATOCRIT 28.5 % (42.0-52.0); MEAN CORPUSCULAR HEMOGLOBIN 32.5 pg (27.0-33.0); MEAN CORPUSCULAR HGB CONC 31.6 g/dl (32.0-36.5); MEAN CORPUSCULAR VOLUME 102.9 fl (80.0-96.0); PLATELET COUNT, AUTOMATED 146 10^3/uL (150-450); RED BLOOD COUNT 2.77 10^6/uL (4.30-6.10); WHITE BLOOD COUNT 6.3 10^3/uL (4.0-10.0)
[2022-07-24] MEDS: FAMOTIDINE 20 MG TAB PO SCH (05:58)
[2022-07-24] MEDS: CLOPIDOGREL 75 MG TAB PO SCH (05:58)
[2022-07-24] MEDS: HEPARIN SOD (PORCINE) 5000UNITS/ML 1ML VIAL/SYRINGE SC SCH (05:59)
[2022-07-24] MEDS ORDERED: LIDOCAINE 1% SDV 5ML VIAL SC PRN (06:20)
[2022-07-24] MEDS ORDERED: SODIUM CHLORIDE 0.9% 1000ML IV PRN (06:20)
[2022-07-24 06:55] LABS: CALCIUM LEVEL 8.3 MG/DL (8.8-10.2); CREATININE FOR GFR 5.95 MG/DL (0.70-1.30); GLOMERULAR FILTRATION RATE 9.8 (>42); MAGNESIUM LEVEL 2.1 MG/DL (1.8-2.4); POTASSIUM SERUM 5.2 MEQ/L (3.5-5.1)
[2022-07-24] MEDS: INSULIN LISPRO (NovoLOG) PER UNIT SC SCH (07:30)
[2022-07-24] MEDS: (RENVELA) SEVELAMER **CARBONate** 800 MG TAB PO SCH (07:59)
[2022-07-24] MEDS ORDERED: MIDODRINE 5 MG TAB PO SCH (12:00)
== END 2022-07-24 10:15 | disposition home or self-care (01) | DRG 91 ==
LOC: EDSEX 16:44 → EDBD 16:44 → M ED 16:44 → M ED INP 22:29 → ENRESERV 07-23 14:17 → M MSPAV 07-23 15:21
PROVIDERS: ADMIT Internal Medicine; ATTEND Internal Medicine
PROC: 5A1D70Z Performance of Urinary Filtration, Intermittent, Less than 6 Hours Per Day (ICD-10-PCS; principal; 2022-07-23)
DX: G92.8 Other toxic encephalopathy (principal); N18.6 End stage renal disease; J96.11 Chronic respiratory failure with hypoxia; J96.12 Chronic respiratory failure with hypercapnia; I50.32 Chronic diastolic (congestive) heart failure; N25.81 Secondary hyperparathyroidism of renal origin; T40.2X5A Adverse effect of other opioids, initial encounter; E11.22 Type 2 diabetes mellitus with diabetic chronic kidney disease; I27.81 Cor pulmonale (chronic); E11.42 Type 2 diabetes mellitus with diabetic polyneuropathy; I25.10 Atherosclerotic heart disease of native coronary artery without angina pectoris; D63.1 Anemia in chronic kidney disease; J44.9 Chronic obstructive pulmonary disease, unspecified; E78.5 Hyperlipidemia, unspecified; G25.81 Restless legs syndrome; E87.5 Hyperkalemia; G47.33 Obstructive sleep apnea (adult) (pediatric); Z99.2 Dependence on renal dialysis; Z87.442 Personal history of urinary calculi; Z87.891 Personal history of nicotine dependence; Z95.1 Presence of aortocoronary bypass graft; Z95.2 Presence of prosthetic heart valve; Z96.641 Presence of right artificial hip joint; Z96.652 Presence of left artificial knee joint; Z79.02 Long term (current) use of antithrombotics/antiplatelets; Z79.899 Other long term (current) drug therapy; Z88.0 Allergy status to penicillin; Z88.1 Allergy status to other antibiotic agents; Z88.6 Allergy status to analgesic agent; Z87.01 Personal history of pneumonia (recurrent)

== ENCOUNTER 2022-08-05 15:17 | Emergency (ER) | payer MEDICARE, OTHER ==
[~2022-08-05] VITALS: Ht 172.7 cm; Wt 81.8 kg
[~2022-08-05 15:17] MED LIST changes: +CALC1TAB29 PO; +GLYC1SUP37 PR; -GLYC2SUP PR; -MAGN1.743 PO; +MAGN296S5 PO; +MIDO5TA PO; +MIRT-10 PO; +NORT25CA2 PO
[2022-08-05 17:32] VITALS: BP 118/55
== END 2022-08-05 17:51 | disposition home or self-care (01) ==
LOC: EDBD 15:17 → M ED 15:17
DX: S80.02XA Contusion of left knee, initial encounter (principal); N18.6 End stage renal disease; Z99.2 Dependence on renal dialysis; I50.9 Heart failure, unspecified; J44.9 Chronic obstructive pulmonary disease, unspecified; Z95.1 Presence of aortocoronary bypass graft; M17.12 Unilateral primary osteoarthritis, left knee; I70.292 Other atherosclerosis of native arteries of extremities, left leg; Z79.02 Long term (current) use of antithrombotics/antiplatelets; Z79.899 Other long term (current) drug therapy; Z88.0 Allergy status to penicillin; Z88.8 Allergy status to other drugs, medicaments and biological substances

== ENCOUNTER 2022-09-26 07:35 | Emergency (ER) | payer MEDICARE, OTHER ==
[~2022-09-26] VITALS: Ht 167.6 cm; Wt 36.4 kg
[~2022-09-26 07:35] MED LIST changes: +CLOP75TA99 PO; -DOXY-350 PO; +DOXY-444 PO; -PLAV1TAB2 PO
[2022-09-26] MEDS ORDERED: LIDOCAINE W/EPINEPHRINE 1% 20ML VIAL SC ONE (08:15)
[2022-09-26] MEDS ORDERED: DERMABOND TOPICAL SKIN ADHESIVE TOP ONE (08:55)
[2022-09-26 10:17] VITALS: BP 140/63
== END 2022-09-26 10:19 | disposition home or self-care (01) ==
LOC: M ED 07:35
DX: S01.21XA Laceration without foreign body of nose, initial encounter (principal); S01.81XA Laceration without foreign body of other part of head, initial encounter; W06.XXXA Fall from bed, initial encounter; Y92.099 Unspecified place in other non-institutional residence as the place of occurrence of the external cause; I50.9 Heart failure, unspecified; E11.9 Type 2 diabetes mellitus without complications; N18.6 End stage renal disease; I25.10 Atherosclerotic heart disease of native coronary artery without angina pectoris; J44.9 Chronic obstructive pulmonary disease, unspecified; G47.33 Obstructive sleep apnea (adult) (pediatric); E78.5 Hyperlipidemia, unspecified; G25.81 Restless legs syndrome; Z87.891 Personal history of nicotine dependence; Z79.01 Long term (current) use of anticoagulants; Z79.899 Other long term (current) drug therapy; Z88.0 Allergy status to penicillin; Z88.8 Allergy status to other drugs, medicaments and biological substances

== ENCOUNTER 2022-11-06 14:23 | Inpatient (IN) | payer MEDICARE, OTHER ==
[~2022-11-06] VITALS: Ht 167.6 cm; Wt 82.7 kg
[~2022-11-06 14:23] MED LIST changes: +MAGN296S37 PO; -MAGN296S5 PO; +NYST-38 SS; -NYST50SS SS; -PAXI20TA29 PO; +PAXI20TA30 PO
[2022-11-06] MEDS ORDERED: MYRB25TA (14:43)
[2022-11-06] MEDS ORDERED: NS 1,000 ML IV SCH (22:15)
[2022-11-06] MEDS ORDERED: LIDOCAINE 2% 5ML JELLY UROJET TOP ONE (22:25)
[2022-11-06 23:12] LABS: BASO % 0.2 % (0.0-1.0); EOS # 0.2 10^3/uL (0.0-0.5); EOS % 1.7 % (0.0-3.0); HEMATOCRIT 33.6 % (42.0-52.0); HEMOGLOBIN 10.4 g/dl (13.5-17.5); LYMPH # 1.1 10^3/uL (1.5-5.0); LYMPH % 10.5 % (24.0-44.0); MEAN CORPUSCULAR HEMOGLOBIN 31.4 pg (27.0-33.0); MEAN CORPUSCULAR VOLUME 101.5 fl (80.0-96.0); MONO % 9.7 % (2.0-8.0); NEUTROPHILS % 77.4 % (36.0-66.0); PLATELET COUNT, AUTOMATED 247 10^3/uL (150-450); RED BLOOD COUNT 3.31 10^6/uL (4.30-6.10); WHITE BLOOD COUNT 10.4 10^3/uL (4.0-10.0)
[2022-11-06 23:28] LABS: INR 1.13; PROTHROMBIN TIME 14.7 SECONDS (12.5-14.5)
[2022-11-06 23:29] LABS: PARTIAL THROMBOPLASTIN TIME 34.5 SECONDS (24.8-34.2)
[2022-11-06 23:37] LABS: ETHYL ALCOHOL (ETHANOL) 0.003 % (0.000-0.010)
[2022-11-06 23:38] LABS: ACETAMINOPHEN LEVEL < 2.0 UG/ML (10.0-20.0)
[2022-11-06 23:39] LABS: ALBUMIN 3.2 G/DL (3.2-5.2); ALKALINE PHOSPHATASE 242 U/L (46-116); ALT/SGPT 12 U/L (7.0-40); AST/SGOT 15 U/L (<34); BILIRUBIN,DIRECT 0.2 MG/DL (<0.4); BILIRUBIN,TOTAL 0.3 MG/DL (0.3-1.2); BLOOD UREA NITROGEN 35 MG/DL (9-23); CALCIUM LEVEL 8.6 MG/DL (8.3-10.6); CARBON DIOXIDE LEVEL 33 MMOL/L (20-31); CHLORIDE LEVEL 96 MMOL/L (98-107); CREATININE FOR GFR 4.59 MG/DL (0.70-1.30); GLOMERULAR FILTRATION RATE 13.3 (>42); GLUCOSE, FASTING 130 MG/DL (74-106); POTASSIUM SERUM 5.2 MMOL/L (3.5-5.1); SALICYLATE LEVEL < 3.0 MG/DL (<30); SODIUM LEVEL 137 MMOL/L (136-145)
[2022-11-06 23:41] LABS: THYROID STIMULATING HORMONE 2.048 uIU/ML (0.55-4.78)
[2022-11-06 23:47] LABS: AMPHETAMINES LEVEL URINE NEGATIVE (NEGATIVE); BARBITURATES URINE NEGATIVE (NEGATIVE); BENZODIAZEPINES URINE NEGATIVE (NEGATIVE); CANNABINOIDS URINE NEGATIVE (NEGATIVE); COCAINE METABOLITE URINE NEGATIVE (NEGATIVE); PHENCYCLIDINE URINE NEGATIVE (NEGATIVE)
[2022-11-06 23:49] LABS: RSV AMPLIFICATION NEGATIVE (NEGATIVE)
[2022-11-06 23:56] LABS: ERYTHROCYTE SEDIMENTATION RATE 105 mm/hr (0-20)
[2022-11-07 00:31] LABS: METHADONE URINE NEGATIVE (NEGATIVE); OPIATES URINE POSITIVE (NEGATIVE)
[2022-11-07] MEDS ORDERED: GLUCAGON INJ 1MG VIAL SC PRN (00:40)
[2022-11-07] MEDS ORDERED: DEXTROSE 50% 50ML SYRINGE IV PRN (00:40)
[2022-11-07] MEDS ORDERED: GLUCOSE 4GM CHEW TABLET PO PRN (00:40)
[2022-11-07] MEDS: ACETAMINOPHEN TAB 650MG DOSE (2X325MG) PO PRN (01:33)
[2022-11-07] MEDS ORDERED: VANCOMYCIN HCL 1,000 MG, VIAL MATE ADAPTER 1 EACH in NS 250 ML IV ONE (02:00)
[2022-11-07 02:35] LABS: OSMOLALITY SERUM 296 MOSM/KG (280-301)
[2022-11-07] MEDS ORDERED: ALBU8.5H INH (06:38)
[2022-11-07] MEDS ORDERED: AQUAOIN12 TOP (06:38)
[2022-11-07] MEDS ORDERED: MYRB25TA PO (06:38)
[2022-11-07] MEDS ORDERED: GABA-282 PO (06:38)
[2022-11-07] MEDS ORDERED: RISATAB3 PO (06:38)
[2022-11-07] MEDS ORDERED: AMMO12CR7 TOP (06:38)
[2022-11-07] MEDS ORDERED: MORP15TA2 PO (06:39)
[2022-11-07] MEDS ORDERED: HOME MED LIST COMPLETE! XX SCH (06:40)
[2022-11-07 07:16] LABS: VENOUS BASE EXCESS 2.1 (-2.0-2.0); VENOUS HCO3 28.2 MEQ/L (23.0-27.0); VENOUS O2 SATURATION 70.6 % (60.0-80.0); VENOUS PARTIAL PRESSURE CO2 50.9 mmHg (38.0-50.0); VENOUS PARTIAL PRESSURE O2 38.3 mmHg (30.0-50.0); VENOUS PH 7.362 UNITS (7.330-7.430); VENOUS STANDARD HCO3 25.8 MEQ/L; VENOUS TOTAL CO2 29.8 MEQ/L (24.0-28.0)
[2022-11-07 07:22] LABS: BASO % 0.2 % (0.0-1.0); EOS # 0.2 10^3/uL (0.0-0.5); EOS % 1.8 % (0.0-3.0); HEMATOCRIT 33.8 % (42.0-52.0); HEMOGLOBIN 10.4 g/dl (13.5-17.5); LYMPH # 1.1 10^3/uL (1.5-5.0); LYMPH % 10.8 % (24.0-44.0); MEAN CORPUSCULAR HEMOGLOBIN 31.4 pg (27.0-33.0); MEAN CORPUSCULAR HGB CONC 30.8 g/dl (32.0-36.5); MEAN CORPUSCULAR VOLUME 102.1 fl (80.0-96.0); MONO # 1.1 10^3/uL (0.0-0.8); MONO % 10.7 % (2.0-8.0); NEUTROPHILS # 7.8 10^3/uL (1.5-8.5); PLATELET COUNT, AUTOMATED 190 10^3/uL (150-450); RED BLOOD COUNT 3.31 10^6/uL (4.30-6.10); WHITE BLOOD COUNT 10.3 10^3/uL (4.0-10.0)
[2022-11-07] MEDS: INSULIN LISPRO (NovoLOG) PER UNIT SC SCH ×4 (07:30→21:00)
[2022-11-07 07:50] LABS: INR 1.16
[2022-11-07 07:51] LABS: PARTIAL THROMBOPLASTIN TIME 32.4 SECONDS (24.8-34.2)
[2022-11-07 07:54] LABS: CALCIUM LEVEL 8.4 MG/DL (8.3-10.6); CREATININE FOR GFR 5.09 MG/DL (0.70-1.30); GLOMERULAR FILTRATION RATE 11.8 (>42); POTASSIUM SERUM 5.2 MMOL/L (3.5-5.1)
[2022-11-07] MEDS ORDERED: MORPHINE 30 MG TAB **MSIR PO PRN (08:15)
[2022-11-07] MEDS ORDERED: MIRALAX *UNIT DOSE* 17GM PACKET PO PRN (08:15)
[2022-11-07] MEDS ORDERED: ALBUTEROL SULFATE 2.5MG/0.5ML INH NEB SOLN INH PRN (08:15)
[2022-11-07] MEDS ORDERED: GABAPENTIN 300 MG CAP PO PRN (08:15)
[2022-11-07] MEDS ORDERED: ALBUTEROL 90 MCG/ACT 8GM HFA INHALER INH PRN (08:15)
[2022-11-07] MEDS ORDERED: LACTIC ACID 12% LOTION 225 GM BTL TOP PRN (08:15)
[2022-11-07] MEDS ORDERED: FLUTICASONE PROP 0.05% NASAL SPRAY 16 GM (FLONASE) PRN (08:15)
[2022-11-07] MEDS: cefTRIAXone SOD 1 GM in D5W MINI-BAG PLUS 50 ML IV SCH (08:20)
[2022-11-07] MEDS: HEPARIN SOD (PORCINE) 5000UNITS/ML 1ML VIAL/SYRINGE SC SCH ×2 (08:21→21:22)
[2022-11-07 08:30] VITALS: BP 130/60
[2022-11-07] MEDS ORDERED: MORPHINE SULFATE ORAL SOLN 10 MG/5 ML UD PO PRN (09:35)
[2022-11-07] MEDS: MULTIVITAMINS/MINERALS THERAP 1 TAB PO SCH (10:18)
[2022-11-07] MEDS: CLOPIDOGREL 75 MG TAB PO SCH (10:18)
[2022-11-07] MEDS: DOCUSATE SODIUM 100MG CAPSULE PO SCH ×2 (10:18→21:22)
[2022-11-07] MEDS ORDERED: LIDOCAINE 1% SDV 5ML VIAL SC PRN (10:45)
[2022-11-07] MEDS ORDERED: HEPARIN 1,000UNITS/ML 10ML VIAL (FOR RADIOLOGY & DIALYSIS ONLY) XX SCH (10:45)
[2022-11-07] MEDS ORDERED: HEPARIN 1,000UNITS/ML 10ML VIAL (FOR RADIOLOGY & DIALYSIS ONLY) IV PRN (10:45)
[2022-11-07] MEDS ORDERED: SODIUM CHLORIDE 0.9% 1000ML IV PRN (10:45)
[2022-11-07 11:27] LABS: ERYTHROCYTE SEDIMENTATION RATE 89 mm/hr (0-20)
[2022-11-07] MEDS: (RENVELA) SEVELAMER **CARBONate** 800 MG TAB PO SCH ×2 (12:30→17:25)
[2022-11-07] MEDS ORDERED: VANCOMYCIN HCL 1,000 MG, VIAL MATE ADAPTER 1 EACH in D5W 250 ML IV SCH (13:00)
[2022-11-07 15:30] VITALS: BP 107/51
[2022-11-07] MEDS: LACTOBACILLUS ACIDOPHILUS CAP (BACID) PO SCH (17:24)
[2022-11-07] MEDS: FAMOTIDINE 20 MG TAB PO SCH (17:25)
[2022-11-07] MEDS ORDERED: GABAPENTIN 300 MG CAP PO SCH (18:00)
[2022-11-07 20:48] VITALS: BP 143/86
[2022-11-07] MEDS: MUPIROCIN 2% OINT 22 GM TUBE TOP SCH (21:22)
[2022-11-07] MEDS: DULoxetine 30MG CAPSULE (CYMBALTA) PO SCH (21:22)
[2022-11-07] MEDS: ATORVASTATIN 20 MG TAB PO SCH (21:23)
[2022-11-07] MEDS: MIRTAZAPINE 15 MG TAB PO SCH (21:23)
[2022-11-07] MEDS: NORTRIPTYLINE 25 MG CAP PO SCH (22:41)
[2022-11-08 05:15] VITALS: BP 122/58
[2022-11-08 05:42] LABS: HEMATOCRIT 33.7 % (42.0-52.0); HEMOGLOBIN 10.4 g/dl (13.5-17.5); MEAN CORPUSCULAR HEMOGLOBIN 31.5 pg (27.0-33.0); MEAN CORPUSCULAR HGB CONC 30.9 g/dl (32.0-36.5); MEAN CORPUSCULAR VOLUME 102.1 fl (80.0-96.0); PLATELET COUNT, AUTOMATED 254 10^3/uL (150-450); WHITE BLOOD COUNT 14.5 10^3/uL (4.0-10.0)
[2022-11-08] MEDS ORDERED: SODIUM CHLORIDE 0.9% 1000ML IV PRN (06:00)
[2022-11-08] MEDS ORDERED: HEPARIN 1,000UNITS/ML 10ML VIAL (FOR RADIOLOGY & DIALYSIS ONLY) XX SCH (06:00)
[2022-11-08] MEDS ORDERED: HEPARIN 1,000UNITS/ML 10ML VIAL (FOR RADIOLOGY & DIALYSIS ONLY) IV PRN (06:00)
[2022-11-08] MEDS ORDERED: LIDOCAINE 1% SDV 5ML VIAL SC PRN (06:00)
[2022-11-08 06:08] LABS: ALBUMIN 2.9 G/DL (3.2-5.2); BILIRUBIN,TOTAL 0.4 MG/DL (0.3-1.2); CALCIUM LEVEL 8.8 MG/DL (8.3-10.6); CREATININE FOR GFR 4.21 MG/DL (0.70-1.30); GLOMERULAR FILTRATION RATE 14.6 (>42); POTASSIUM SERUM 4.7 MMOL/L (3.5-5.1); TOTAL PROTEIN 6.8 G/DL (5.7-8.2)
[2022-11-08] MEDS: INSULIN LISPRO (NovoLOG) PER UNIT SC SCH ×4 (06:16→20:36)
[2022-11-08] MEDS: MULTIVITAMINS/MINERALS THERAP 1 TAB PO SCH (06:23)
[2022-11-08] MEDS: DOCUSATE SODIUM 100MG CAPSULE PO SCH ×2 (06:23→20:41)
[2022-11-08] MEDS: MUPIROCIN 2% OINT 22 GM TUBE TOP SCH (06:23)
[2022-11-08] MEDS: (RENVELA) SEVELAMER **CARBONate** 800 MG TAB PO SCH ×3 (06:23→17:16)
[2022-11-08] MEDS: CLOPIDOGREL 75 MG TAB PO SCH (06:23)
[2022-11-08] MEDS: cefTRIAXone SOD 1 GM in D5W MINI-BAG PLUS 50 ML IV SCH (06:23)
[2022-11-08] MEDS: LACTOBACILLUS ACIDOPHILUS CAP (BACID) PO SCH ×2 (06:24→17:16)
[2022-11-08] MEDS: HEPARIN SOD (PORCINE) 5000UNITS/ML 1ML VIAL/SYRINGE SC SCH ×2 (06:25→20:42)
[2022-11-08 07:34] VITALS: BP 122/58
[2022-11-08 12:00] VITALS: BP 117/65
[2022-11-08 14:00] VITALS: BP 117/65
[2022-11-08 16:00] VITALS: BP 117/57
[2022-11-08] MEDS: LACTULOSE 20GM/30ML SYRUP UDC PO SCH ×2 (16:00→20:41)
[2022-11-08] MEDS ORDERED: PILL CUTTER 1 EACH XX ONE (17:08)
[2022-11-08] MEDS: FAMOTIDINE 20 MG TAB PO SCH (17:15)
[2022-11-08 20:00] VITALS: BP 136/63
[2022-11-08] MEDS: DULoxetine 30MG CAPSULE (CYMBALTA) PO SCH (20:41)
[2022-11-08] MEDS: NORTRIPTYLINE 25 MG CAP PO SCH (20:41)
[2022-11-08] MEDS: ATORVASTATIN 20 MG TAB PO SCH (20:42)
[2022-11-08] MEDS: MIRTAZAPINE 15 MG TAB PO SCH (20:42)
[2022-11-08] MEDS: ACETAMINOPHEN TAB 650MG DOSE (2X325MG) PO PRN (20:42)
[2022-11-09 04:36] LABS: HEMATOCRIT 33.9 % (42.0-52.0); HEMOGLOBIN 10.7 g/dl (13.5-17.5); MEAN CORPUSCULAR HEMOGLOBIN 31.4 pg (27.0-33.0); MEAN CORPUSCULAR HGB CONC 31.6 g/dl (32.0-36.5); MEAN CORPUSCULAR VOLUME 99.4 fl (80.0-96.0); PLATELET COUNT, AUTOMATED 278 10^3/uL (150-450); RED BLOOD COUNT 3.41 10^6/uL (4.30-6.10); WHITE BLOOD COUNT 14.5 10^3/uL (4.0-10.0)
[2022-11-09 04:57] LABS: ALBUMIN 2.8 G/DL (3.2-5.2); BILIRUBIN,TOTAL 0.3 MG/DL (0.3-1.2); CALCIUM LEVEL 8.6 MG/DL (8.3-10.6); CREATININE FOR GFR 3.62 MG/DL (0.70-1.30); GLOMERULAR FILTRATION RATE 17.4 (>42); POTASSIUM SERUM 4.1 MMOL/L (3.5-5.1); TOTAL PROTEIN 6.8 G/DL (5.7-8.2)
[2022-11-09 07:22] VITALS: BP 133/59
[2022-11-09] MEDS: INSULIN LISPRO (NovoLOG) PER UNIT SC SCH (07:30)
[2022-11-09] MEDS ORDERED: cefTRIAXone SOD 1 GM in D5W MINI-BAG PLUS 50 ML IV SCH (08:00)
[2022-11-09] MEDS: CLOPIDOGREL 75 MG TAB PO SCH (08:22)
[2022-11-09] MEDS: DOCUSATE SODIUM 100MG CAPSULE PO SCH (08:22)
[2022-11-09] MEDS: MULTIVITAMINS/MINERALS THERAP 1 TAB PO SCH (08:22)
[2022-11-09] MEDS: LACTOBACILLUS ACIDOPHILUS CAP (BACID) PO SCH (08:22)
[2022-11-09] MEDS: (RENVELA) SEVELAMER **CARBONate** 800 MG TAB PO SCH (08:22)
[2022-11-09] MEDS: MUPIROCIN 2% OINT 22 GM TUBE TOP SCH (08:23)
[2022-11-09] MEDS: HEPARIN SOD (PORCINE) 5000UNITS/ML 1ML VIAL/SYRINGE SC SCH (08:23)
[2022-11-09] MEDS ORDERED: CEPH500C PO (08:44)
[2022-11-09] MEDS ORDERED: PROB250C PO (08:44)
== END 2022-11-09 11:35 | disposition home or self-care (01) | DRG 623 ==
LOC: M ED 14:23 → M ED INP 11-07 00:37 → ENRESERV 11-07 12:50 → M PCU 11-07 15:15
PROVIDERS: ADMIT Family Medicine; ATTEND Internal Medicine
PROC: 0JBR0ZZ Excision of Left Foot Subcutaneous Tissue and Fascia, Open Approach (ICD-10-PCS; principal; 2022-11-07)
PROC: 5A1D70Z Performance of Urinary Filtration, Intermittent, Less than 6 Hours Per Day (ICD-10-PCS; 2022-11-08)
DX: E11.621 Type 2 diabetes mellitus with foot ulcer (principal); G93.40 Encephalopathy, unspecified; I13.2 Hypertensive heart and chronic kidney disease with heart failure and with stage 5 chronic kidney disease, or end stage renal disease; N39.0 Urinary tract infection, site not specified; L97.528 Non-pressure chronic ulcer of other part of left foot with other specified severity; E72.20 Disorder of urea cycle metabolism, unspecified; E11.22 Type 2 diabetes mellitus with diabetic chronic kidney disease; N18.6 End stage renal disease; J44.9 Chronic obstructive pulmonary disease, unspecified; N25.81 Secondary hyperparathyroidism of renal origin; E11.42 Type 2 diabetes mellitus with diabetic polyneuropathy; M19.90 Unspecified osteoarthritis, unspecified site; I25.10 Atherosclerotic heart disease of native coronary artery without angina pectoris; I27.29 Other secondary pulmonary hypertension; R91.8 Other nonspecific abnormal finding of lung field; E87.5 Hyperkalemia; E78.5 Hyperlipidemia, unspecified; D63.8 Anemia in other chronic diseases classified elsewhere; E11.51 Type 2 diabetes mellitus with diabetic peripheral angiopathy without gangrene; F32.A Depression, unspecified; R33.9 Retention of urine, unspecified; K76.0 Fatty (change of) liver, not elsewhere classified; G47.33 Obstructive sleep apnea (adult) (pediatric); I50.9 Heart failure, unspecified; M25.511 Pain in right shoulder; F03.90 Unspecified dementia, unspecified severity, without behavioral disturbance, psychotic disturbance, mood disturbance, and anxiety; Z99.2 Dependence on renal dialysis; Z79.02 Long term (current) use of antithrombotics/antiplatelets; Z79.899 Other long term (current) drug therapy; Z88.0 Allergy status to penicillin; Z88.1 Allergy status to other antibiotic agents; Z88.6 Allergy status to analgesic agent; Z85.51 Personal history of malignant neoplasm of bladder; Z95.1 Presence of aortocoronary bypass graft; Z95.2 Presence of prosthetic heart valve; Z96.641 Presence of right artificial hip joint; Z96.652 Presence of left artificial knee joint; Z96.611 Presence of right artificial shoulder joint

== ENCOUNTER → 2022-11-12 | Outpatient (REF) | payer MEDICARE, OTHER ==
[~2022-11-12] MED LIST changes: +ALBU8.5H INH; +AMMO12CR7 TOP; +AQUAOIN12 TOP; +MYRB25TA; +MYRB25TA PO; +PROB250C PO; +RISATAB3 PO
== END ==
LOC: M LAB REF 16:18
PROVIDERS: ATTEND Podiatrist Foot & Ankle Surgery
DX: L03.032 Cellulitis of left toe (principal)

== ENCOUNTER → 2022-12-10 | Outpatient (POV) | payer MEDICARE, OTHER ==
[~2022-12-10] VITALS: Ht 167.6 cm; Wt 77.3 kg
[2022-12-10 10:45] VITALS: BP 145/67
== END ==
LOC: M IRPOV 10:11
PROVIDERS: ATTEND Radiology Diagnostic Radiology
DX: T87.89 Other complications of amputation stump (principal); E11.22 Type 2 diabetes mellitus with diabetic chronic kidney disease; E11.40 Type 2 diabetes mellitus with diabetic neuropathy, unspecified; E11.51 Type 2 diabetes mellitus with diabetic peripheral angiopathy without gangrene; I12.0 Hypertensive chronic kidney disease with stage 5 chronic kidney disease or end stage renal disease; E78.5 Hyperlipidemia, unspecified; I25.10 Atherosclerotic heart disease of native coronary artery without angina pectoris; N18.6 End stage renal disease; N25.81 Secondary hyperparathyroidism of renal origin; R60.0 Localized edema; Z79.01 Long term (current) use of anticoagulants; Z79.899 Other long term (current) drug therapy; Z85.51 Personal history of malignant neoplasm of bladder; Z87.891 Personal history of nicotine dependence; Z88.0 Allergy status to penicillin; Z88.6 Allergy status to analgesic agent; Z89.422 Acquired absence of other left toe(s); Z95.4 Presence of other heart-valve replacement; Z96.641 Presence of right artificial hip joint; Z96.652 Presence of left artificial knee joint

== ENCOUNTER → 2022-12-19 | Outpatient (CLI) | payer MEDICARE, OTHER | LOC: M RAD 10:37 | PROVIDERS: ATTEND Internal Medicine | DX: G45.9 Transient cerebral ischemic attack, unspecified (principal) ==

== ENCOUNTER → 2022-12-23 | Outpatient (CLI) | payer MEDICARE, OTHER | LOC: M LABSMTC 11:00 | PROVIDERS: ATTEND Anesthesiology | DX: Z01.812 Encounter for preprocedural laboratory examination (principal) ==

== ENCOUNTER → 2022-12-26 | Outpatient (CLI) | payer MEDICARE, OTHER ==
[~2022-12-26] MED LIST changes: +HEPARIN 1,000UNITS/ML 10ML VIAL (FOR RADIOLOGY & DIALYSIS ONLY) As Ordered ONE; +ISOVUE-300 61% 100ML VIAL As Ordered ONE; +LIDOCAINE 1% MDV 20ML VIAL As Ordered ONE; +MIDAZOLAM INJ 2MG/2ML VIAL As Ordered ONE; +NS 1,000 ML IV SCH; +PROMETHAZINE 25MG/ML 1ML VIAL As Ordered ONE; +diphenhydrAMINE 50MG/ML VIAL As Ordered ONE; +fentaNYL 100 MCG/2 ML INJECTION As Ordered ONE
[2022-12-26 15:00] VITALS: BP 130/73
== END ==
LOC: M IRPRO 06:32
PROVIDERS: ATTEND Radiology Diagnostic Radiology
DX: I70.222 Atherosclerosis of native arteries of extremities with rest pain, left leg (principal); I70.249 Atherosclerosis of native arteries of left leg with ulceration of unspecified site; L97.929 Non-pressure chronic ulcer of unspecified part of left lower leg with unspecified severity; I87.399 Chronic venous hypertension (idiopathic) with other complications of unspecified lower extremity
CPT/HCPCS: 37224; 99152; 99153; C1725; C1769; C1894; J1644; J2250; J2550; J3010; Q9967

== ENCOUNTER → 2023-01-02 | Outpatient (CLI) | payer MEDICARE, OTHER ==
[~2023-01-02] MED LIST changes: -HEPARIN 1,000UNITS/ML 10ML VIAL (FOR RADIOLOGY & DIALYSIS ONLY) As Ordered ONE; -ISOVUE-300 61% 100ML VIAL As Ordered ONE; -LIDOCAINE 1% MDV 20ML VIAL As Ordered ONE; -MIDAZOLAM INJ 2MG/2ML VIAL As Ordered ONE; -NS 1,000 ML IV SCH; -PROMETHAZINE 25MG/ML 1ML VIAL As Ordered ONE; -diphenhydrAMINE 50MG/ML VIAL As Ordered ONE; -fentaNYL 100 MCG/2 ML INJECTION As Ordered ONE
== END ==
LOC: M RAD 10:07
PROVIDERS: ATTEND Radiology Diagnostic Radiology
DX: I87.303 Chronic venous hypertension (idiopathic) without complications of bilateral lower extremity (principal)

== ENCOUNTER → 2023-01-06 | Outpatient (CLI) | payer MEDICARE, OTHER | LOC: M PLARAD 07:38 | PROVIDERS: ATTEND Internal Medicine Pulmonary Disease | DX: R91.8 Other nonspecific abnormal finding of lung field (principal) | CPT/HCPCS: 78815; A9552 ==

== ENCOUNTER → 2023-01-14 | Outpatient (POV) | payer MEDICARE, OTHER ==
[~2023-01-14] VITALS: Ht 167.6 cm; Wt 77.2 kg
[2023-01-14 12:40] VITALS: BP 141/65
== END ==
LOC: M IRPOV 12:19
PROVIDERS: ATTEND Radiology Diagnostic Radiology
DX: Z48.812 Encounter for surgical aftercare following surgery on the circulatory system (principal); I70.222 Atherosclerosis of native arteries of extremities with rest pain, left leg; Z88.0 Allergy status to penicillin; Z88.1 Allergy status to other antibiotic agents; Z88.6 Allergy status to analgesic agent

== ENCOUNTER 2023-01-28 04:30 | Emergency (ER) | payer MEDICARE, OTHER ==
[2023-01-28] MEDS ORDERED: DERMABOND TOPICAL SKIN ADHESIVE TOP ONE (05:55)
[2023-01-28 09:48] VITALS: BP 123/68
== END 2023-01-28 09:51 | disposition home or self-care (01) ==
LOC: M ED 04:30
DX: S01.81XA Laceration without foreign body of other part of head, initial encounter (principal); W06.XXXA Fall from bed, initial encounter; Y92.003 Bedroom of unspecified non-institutional (private) residence as the place of occurrence of the external cause; Y93.89 Activity, other specified; Y99.8 Other external cause status; I25.10 Atherosclerotic heart disease of native coronary artery without angina pectoris; G89.4 Chronic pain syndrome; N18.6 End stage renal disease; E21.3 Hyperparathyroidism, unspecified; J44.9 Chronic obstructive pulmonary disease, unspecified

== ENCOUNTER → 2023-02-04 | Outpatient (REF) | payer MEDICARE, OTHER | LOC: M SMT 13:04 | PROVIDERS: ATTEND Urology | DX: C67.9 Malignant neoplasm of bladder, unspecified (principal) ==

== ENCOUNTER → 2023-02-17 | Outpatient (CLI) | payer MEDICARE, OTHER ==
[~2023-02-17] MED LIST changes: +ACET300T48 PO; +CETI-24 PO; +CLOB-25 TOP; +COQ1100C4 PO; +DIPH-435 PO; +RA S0.65 NARES
[2023-02-17 08:30] LABS: PROTHROMBIN TIME 13.4 SECONDS (12.5-14.5)
== END ==
LOC: M LAB 07:29
PROVIDERS: ATTEND Internal Medicine Pulmonary Disease
DX: R91.8 Other nonspecific abnormal finding of lung field (principal); Z79.01 Long term (current) use of anticoagulants

== ENCOUNTER → 2023-02-18 | Outpatient (CLI) | payer MEDICARE, OTHER ==
[~2023-02-18] MED LIST changes: +HOME MED LIST COMPLETE! XX SCH; +INSULIN LISPRO (NovoLOG) PER UNIT As Ordered ONE; +LIDOCAINE 1% MDV 20ML VIAL As Ordered ONE
[2023-02-18 09:03] LABS: INR 1.02; PROTHROMBIN TIME 13.6 SECONDS (12.5-14.5)
[2023-02-18 09:04] LABS: PARTIAL THROMBOPLASTIN TIME 33.9 SECONDS (24.8-34.2)
[2023-02-18 09:16] LABS: PLATELET COUNT, AUTOMATED 158 10^3/uL (150-450)
[2023-02-18 12:05] VITALS: BP 121/56
== END ==
LOC: M IRPRO 08:10
PROVIDERS: ATTEND Internal Medicine Pulmonary Disease
DX: C34.31 Malignant neoplasm of lower lobe, right bronchus or lung (principal)
CPT/HCPCS: 32408; 36415; 85027; 85610; 85730; 87070; 87102; 87116; 87205; 87206; 88305; J1815

== ENCOUNTER → 2023-03-06 | Outpatient (REF) | payer MEDICARE, OTHER ==
[~2023-03-06] MED LIST changes: -HOME MED LIST COMPLETE! XX SCH; -INSULIN LISPRO (NovoLOG) PER UNIT As Ordered ONE; -LIDOCAINE 1% MDV 20ML VIAL As Ordered ONE; -LOSA100T45 PO; +LOSA100T46 PO; +POTA-298 PO; -POTA1TAB14 PO
[2023-03-06 16:03] LABS: APPEARANCE, URINE CLOUDY (CLEAR); BACTERIA, URINE AUTO NEGATIVE (NEGATIVE); BILIRUBIN, URINE AUTO NEGATIVE (NEGATIVE); BLOOD, URINE BLOOD 2+ (NEGATIVE); COLOR, URINE AMBER (YELLOW); GLUCOSE, URINE (UA) AUTO NEGATIVE (NEGATIVE); KETONE, URINE AUTO NEGATIVE (NEGATIVE); LEUKOCYTE ESTERASE, URINE AUTO 3+ (NEGATIVE); NITRITE, URINE AUTO NEGATIVE (NEGATIVE); PROTEIN, URINE AUTO 2+ mg/dL (NEGATIVE); RBC, URINE AUTO 88 /HPF (0-3); SPECIFIC GRAVITY URINE AUTO 1.013 (1.002-1.035); SQUAMOUS EPITHELIAL CELL UR AU 0 /HPF (0-6); UROBILINOGEN, URINE AUTO 0.2 mg/dL (0.0-2.0); WBC, URINE AUTO TNTC /HPF (0-3)
== END ==
LOC: M LABSMT 13:27
PROVIDERS: ATTEND Urology
DX: N39.0 Urinary tract infection, site not specified (principal); R39.198 Other difficulties with micturition

== ENCOUNTER → 2023-03-13 | Outpatient (CLI) | payer MEDICARE, OTHER | LOC: M ONCR 10:10 | PROVIDERS: ATTEND Radiology Radiation Oncology | DX: C34.31 Malignant neoplasm of lower lobe, right bronchus or lung (principal); Z85.59 Personal history of malignant neoplasm of other urinary tract organ; E11.9 Type 2 diabetes mellitus without complications; G47.33 Obstructive sleep apnea (adult) (pediatric); I11.9 Hypertensive heart disease without heart failure; J44.9 Chronic obstructive pulmonary disease, unspecified; M19.90 Unspecified osteoarthritis, unspecified site; M51.9 Unspecified thoracic, thoracolumbar and lumbosacral intervertebral disc disorder; M54.9 Dorsalgia, unspecified; N18.9 Chronic kidney disease, unspecified; Z79.51 Long term (current) use of inhaled steroids; Z79.891 Long term (current) use of opiate analgesic; Z83.3 Family history of diabetes mellitus; Z87.891 Personal history of nicotine dependence; Z88.0 Allergy status to penicillin; Z88.1 Allergy status to other antibiotic agents; Z88.8 Allergy status to other drugs, medicaments and biological substances; Z99.2 Dependence on renal dialysis ==

== ENCOUNTER 2023-03-20 13:51 | Outpatient (RCR) | payer MEDICARE, OTHER | END 2023-03-26 | LOC: M ONCR 13:51 | PROVIDERS: ATTEND General Practice | DX: C34.31 Malignant neoplasm of lower lobe, right bronchus or lung (principal) ==

== ENCOUNTER 2023-04-11 08:45 | Outpatient (RCR) | payer MEDICARE, OTHER ==
[~2023-04-11 08:45] MED LIST changes: -K-TA10TA2 PO; +POTA-165 PO; +SENN-111 PO; -SENN18TA PO
== END 2023-04-25 ==
LOC: M ONCR 08:45
PROVIDERS: ATTEND General Practice
DX: C34.31 Malignant neoplasm of lower lobe, right bronchus or lung (principal)

== ENCOUNTER 2023-05-21 13:42 | Emergency (ER) | payer MEDICARE, OTHER ==
[~2023-05-21] VITALS: Ht 167.6 cm; Wt 75.0 kg
[~2023-05-21 13:42] MED LIST changes: -LIDO1CRE42 TOP; +LIDO30CR18 TOP
[2023-05-21] MEDS ORDERED: BACL10TA2 PO (14:06)
[2023-05-21] MEDS ORDERED: POLY17PO18 PO (14:14)
[2023-05-21] MEDS ORDERED: CEPH500C (14:14)
[2023-05-21] MEDS ORDERED: PROC1CRE5 PR (14:14)
[2023-05-21] MEDS ORDERED: SACC250C6 (14:14)
[2023-05-21 15:55] LABS: BASO % 0.2 % (0.0-1.0); EOS # 0.2 10^3/uL (0.0-0.5); EOS % 4.5 % (0.0-3.0); HEMATOCRIT 31.3 % (42.0-52.0); HEMOGLOBIN 9.9 g/dl (13.5-17.5); LYMPH % 17.9 % (24.0-44.0); MEAN CORPUSCULAR HEMOGLOBIN 32.4 pg (27.0-33.0); MEAN CORPUSCULAR HGB CONC 31.6 g/dl (32.0-36.5); MEAN CORPUSCULAR VOLUME 102.3 fl (80.0-96.0); MONO # 0.7 10^3/uL (0.0-0.8); MONO % 13.6 % (2.0-8.0); NEUTROPHILS # 3.4 10^3/uL (1.5-8.5); NEUTROPHILS % 63.4 % (36.0-66.0); PLATELET COUNT, AUTOMATED 109 10^3/uL (150-450); RED BLOOD COUNT 3.06 10^6/uL (4.30-6.10); WHITE BLOOD COUNT 5.3 10^3/uL (4.0-10.0)
[2023-05-21 16:30] LABS: CALCIUM LEVEL 7.8 MG/DL (8.3-10.6); CREATININE FOR GFR 4.39 MG/DL (0.70-1.30); GLOMERULAR FILTRATION RATE 13.9 (>42)
[2023-05-21 16:31] LABS: RSV AMPLIFICATION NEGATIVE (NEGATIVE)
[2023-05-21 18:45] VITALS: BP 170/81; TEMP 95.8; O2SAT 98
== END 2023-05-21 19:02 | disposition home or self-care (01) ==
LOC: M ED 13:42 → EDBD 13:42 → M ED 19:02
DX: T82.49XA Other complication of vascular dialysis catheter, initial encounter (principal); I12.9 Hypertensive chronic kidney disease with stage 1 through stage 4 chronic kidney disease, or unspecified chronic kidney disease; N18.6 End stage renal disease; I50.20 Unspecified systolic (congestive) heart failure; M10.9 Gout, unspecified; E78.5 Hyperlipidemia, unspecified; Z85.118 Personal history of other malignant neoplasm of bronchus and lung; Z95.1 Presence of aortocoronary bypass graft; Z88.0 Allergy status to penicillin; Z88.6 Allergy status to analgesic agent; Z79.899 Other long term (current) drug therapy; Z79.51 Long term (current) use of inhaled steroids

== ENCOUNTER 2023-06-04 21:56 | Emergency (ER) | payer MEDICARE, OTHER ==
[~2023-06-04] VITALS: Ht 172.7 cm; Wt 81.0 kg
[~2023-06-04 21:56] MED LIST changes: +CEPH500C; +PROC1CRE5 PR; +SACC250C6
[2023-06-04] MEDS ORDERED: ACETAMINOPHEN 1000MG 100ML IV BAG IV ONE (22:15)
[2023-06-04] MEDS ORDERED: NS 500 ML IV ONE (22:15)
[2023-06-04 22:22] LABS: VENOUS BASE EXCESS -4.7 (-2.0-2.0); VENOUS HCO3 22.6 MMOL/L (23.0-27.0); VENOUS O2 SATURATION 60.1 % (60.0-80.0); VENOUS PARTIAL PRESSURE CO2 51.7 mmHg (38.0-50.0); VENOUS PARTIAL PRESSURE O2 36.5 mmHg (30.0-50.0); VENOUS PH 7.258 UNITS (7.330-7.430); VENOUS STANDARD HCO3 19.9 MMOL/L; VENOUS TOTAL CO2 24.2 MMOL/L (24.0-28.0)
[2023-06-04 22:31] LABS: BASO % 0.1 % (0.0-1.0); EOS % 0.1 % (0.0-3.0); HEMATOCRIT 32.6 % (42.0-52.0); HEMOGLOBIN 10.2 g/dl (13.5-17.5); LYMPH # 0.4 10^3/uL (1.5-5.0); LYMPH % 2.5 % (24.0-44.0); MEAN CORPUSCULAR HEMOGLOBIN 32.4 pg (27.0-33.0); MEAN CORPUSCULAR HGB CONC 31.3 g/dl (32.0-36.5); MEAN CORPUSCULAR VOLUME 103.5 fl (80.0-96.0); MONO # 1.1 10^3/uL (0.0-0.8); MONO % 6.7 % (2.0-8.0); NEUTROPHILS # 14.9 10^3/uL (1.5-8.5); NEUTROPHILS % 89.2 % (36.0-66.0); PLATELET COUNT, AUTOMATED 147 10^3/uL (150-450); RED BLOOD COUNT 3.15 10^6/uL (4.30-6.10); WHITE BLOOD COUNT 16.7 10^3/uL (4.0-10.0)
[2023-06-04 22:41] LABS: ETHYL ALCOHOL (ETHANOL) < 0.003 % (0.000-0.010)
[2023-06-04 22:42] LABS: ACETAMINOPHEN LEVEL < 2.0 UG/ML (10.0-20.0); CPK CREATINE PHOSPHOKINASE 128 U/L (46-171)
[2023-06-04 22:43] LABS: ALKALINE PHOSPHATASE 239 U/L (46-116); ALT/SGPT 17 U/L (7.0-40); AST/SGOT 20 U/L (<34); BILIRUBIN,DIRECT 0.3 MG/DL (<0.4); BILIRUBIN,TOTAL 0.4 MG/DL (0.3-1.2); BLOOD UREA NITROGEN 69 MG/DL (9-23); CALCIUM LEVEL 7.9 MG/DL (8.3-10.6); CARBON DIOXIDE LEVEL 27 MMOL/L (20-31); CHLORIDE LEVEL 99 MMOL/L (98-107); CK-MB VALUE MASS 2.8 NG/ML (<3.6); CREATININE FOR GFR 7.24 MG/DL (0.70-1.30); GLOMERULAR FILTRATION RATE 7.8 (>42); GLUCOSE, FASTING 124 MG/DL (74-106); MB/CK RELATIVE INDEX 2.18 (< OR =4); POTASSIUM SERUM 5.5 MMOL/L (3.5-5.1); SALICYLATE LEVEL < 3.0 MG/DL (<30); SODIUM LEVEL 139 MMOL/L (136-145); TOTAL PROTEIN 6.4 G/DL (5.7-8.2)
[2023-06-04 22:45] LABS: THYROID STIMULATING HORMONE 2.212 uIU/ML (0.55-4.78)
[2023-06-04 23:09] LABS: RSV AMPLIFICATION NEGATIVE (NEGATIVE)
[2023-06-05] MEDS ORDERED: PIPERACILLIN/TAZOBACTAM SOD 3.375 GM in D5W MINI-BAG PLUS 50 ML IV ONE ×2
[2023-06-05 00:09] LABS: CK-MB VALUE MASS 3.3 NG/ML (<3.6); MB/CK RELATIVE INDEX 2.32 (< OR =4)
[2023-06-05 01:14] LABS: AMPHETAMINES LEVEL URINE NEGATIVE (NEGATIVE); BARBITURATES URINE NEGATIVE (NEGATIVE); BENZODIAZEPINES URINE NEGATIVE (NEGATIVE); CANNABINOIDS URINE NEGATIVE (NEGATIVE); COCAINE METABOLITE URINE NEGATIVE (NEGATIVE); METHADONE URINE NEGATIVE (NEGATIVE); OPIATES URINE NEGATIVE (NEGATIVE); PHENCYCLIDINE URINE NEGATIVE (NEGATIVE)
[2023-06-05 02:00] LABS: CK-MB VALUE MASS 5.1 NG/ML (<3.6)
[2023-06-05 02:01] LABS: MB/CK RELATIVE INDEX 2.65 (< OR =4)
[2023-06-05] MEDS ORDERED: NS 500 ML IV ONE (02:10)
[2023-06-05] MEDS ORDERED: ISOVUE-370 76% 100ML VIAL As Ordered ONE (02:21)
[2023-06-05] MEDS ORDERED: HEPARIN DRIP 25,000 UNITS in IV 1 EA IV SCH (03:00)
[2023-06-05 06:45] VITALS: BP 172/84; TEMP 98; O2SAT 100
== END 2023-06-05 06:59 | disposition short-term general hospital (02) ==
LOC: EDBD 21:56 → M ED 21:56
DX: I21.4 Non-ST elevation (NSTEMI) myocardial infarction (principal); R41.82 Altered mental status, unspecified; Z88.0 Allergy status to penicillin; Z88.6 Allergy status to analgesic agent; I25.2 Old myocardial infarction; E78.00 Pure hypercholesterolemia, unspecified; I11.9 Hypertensive heart disease without heart failure; J44.9 Chronic obstructive pulmonary disease, unspecified; G47.33 Obstructive sleep apnea (adult) (pediatric); Z87.442 Personal history of urinary calculi; M54.9 Dorsalgia, unspecified; F41.9 Anxiety disorder, unspecified; Z79.899 Other long term (current) drug therapy; Z79.51 Long term (current) use of inhaled steroids
CPT/HCPCS: 70450; 71045; 71275; 74177; 80048; 80076; 80143; 80307; 81001; 82077; 82140; 82550; 82553; 82803; 83605; 83880; 84443; 84484; 85025; 87040; 87088; 87186; 87631; 93005; 93041; 94760; 96365; 96366; 96367; 96375; 99285; J0131; J2543; Q9967

== ENCOUNTER → 2023-06-20 | Outpatient (REF) | payer MEDICARE, OTHER | LOC: M LAB REF 11:45 | PROVIDERS: ATTEND Internal Medicine | DX: E03.9 Hypothyroidism, unspecified (principal) ==

== ENCOUNTER → 2023-07-15 | Outpatient (CLI) | payer MEDICARE, OTHER ==
[~2023-07-15] MED LIST changes: -MIRT-62 PO; +MIRT-88 PO
[2023-07-15 13:48] LABS: ABG HCO3 25.2 MMOL/L (22.0-26.0); ABG O2 SATURATION 88.6 % (95.0-99.0); ABG PARTIAL PRESSURE CO2 48.3 mmHg (35.0-45.0); ABG PARTIAL PRESSURE O2 58.6 mmHg (75.0-100.0); ABG STANDARD HCO3 23.5 MMOL/L. (22.0-26.0); ABG TOTAL CO2 26.7 MMOL/L (23.0-31.0); ABG pH (ARTERIAL) 7.335 UNITS (7.350-7.450)
== END ==
LOC: M LAB 13:18
PROVIDERS: ATTEND Internal Medicine Pulmonary Disease
DX: C34.31 Malignant neoplasm of lower lobe, right bronchus or lung (principal)

== ENCOUNTER → 2023-07-15 | Outpatient (CLI) | payer MEDICARE, OTHER | LOC: M RAD 13:13 | PROVIDERS: ATTEND General Practice | DX: C34.31 Malignant neoplasm of lower lobe, right bronchus or lung (principal); J98.11 Atelectasis; R91.8 Other nonspecific abnormal finding of lung field; J47.9 Bronchiectasis, uncomplicated; I51.7 Cardiomegaly ==

== ENCOUNTER 2023-08-20 00:09 | Emergency (ER) | payer MEDICARE, OTHER ==
[~2023-08-20] VITALS: Ht 172.7 cm; Wt 81.8 kg
[2023-08-20 03:01] LABS: BASO % 0.3 % (0.0-1.0); EOS # 0.3 10^3/uL (0.0-0.5); EOS % 4.3 % (0.0-3.0); HEMATOCRIT 31.2 % (42.0-52.0); HEMOGLOBIN 9.9 g/dl (13.5-17.5); LYMPH % 14.8 % (24.0-44.0); MEAN CORPUSCULAR HEMOGLOBIN 33.1 pg (27.0-33.0); MEAN CORPUSCULAR HGB CONC 31.7 g/dl (32.0-36.5); MEAN CORPUSCULAR VOLUME 104.3 fl (80.0-96.0); MONO # 0.9 10^3/uL (0.0-0.8); MONO % 12.8 % (2.0-8.0); NEUTROPHILS # 4.5 10^3/uL (1.5-8.5); NEUTROPHILS % 67.4 % (36.0-66.0); PLATELET COUNT, AUTOMATED 150 10^3/uL (150-450); RED BLOOD COUNT 2.99 10^6/uL (4.30-6.10); WHITE BLOOD COUNT 6.7 10^3/uL (4.0-10.0)
[2023-08-20 03:13] LABS: INR 1.27; PROTHROMBIN TIME 15.6 SECONDS (12.5-14.5)
[2023-08-20 03:14] LABS: CREATININE FOR GFR 4.88 MG/DL (0.70-1.30); GLOMERULAR FILTRATION RATE 12.3 (>42); POTASSIUM SERUM 4.3 MMOL/L (3.5-5.1)
[2023-08-20 03:16] LABS: RSV AMPLIFICATION NEGATIVE (NEGATIVE)
[2023-08-20] MEDS ORDERED: ONDANSETRON 4MG 2ML VIAL IV ONE (03:40)
[2023-08-20] MEDS ORDERED: MORPHINE 4 MG/ML 1ML VIAL IV PRN (03:40)
[2023-08-20 06:30] VITALS: BP 138/70; TEMP 98.9; O2SAT 94
== END 2023-08-20 06:44 | disposition short-term general hospital (02) ==
LOC: M ED 00:09 → EDBD 00:09 → M ED 06:44
DX: S12.190A Other displaced fracture of second cervical vertebra, initial encounter for closed fracture (principal); S00.03XA Contusion of scalp, initial encounter; W06.XXXA Fall from bed, initial encounter; Y92.009 Unspecified place in unspecified non-institutional (private) residence as the place of occurrence of the external cause; I25.10 Atherosclerotic heart disease of native coronary artery without angina pectoris; N18.6 End stage renal disease; Z79.02 Long term (current) use of antithrombotics/antiplatelets; Z79.899 Other long term (current) drug therapy; Z88.0 Allergy status to penicillin; Z88.8 Allergy status to other drugs, medicaments and biological substances
CPT/HCPCS: 70450; 70486; 72125; 80048; 85025; 85610; 85730; 87631; 96374; 96375; 99285; J2405